=== PATIENT | female | born 1950 | race Caucasian/White ===

== ENCOUNTER 2016-10-04 11:09 | Day surgery (SDC) | payer MEDICARE, OTHER ==
[2016-10-04] VITALS (11 sets, daily range): BP systolic 101–159; BP diastolic 50–69
[~2016-10-04] VITALS: Ht 149.9 cm; Wt 64.9 kg
[~2016-10-04 11:09] MED LIST: ACDPT PO; ALPR.5T; ALPR.5T PO; APIX5TAB2 PO; ASP81CT; ASP81TEC PO; BNZ10T; CHOL200025 PO; CHOL5000 PO; CHOL50003 PO; CORAL CALCIUM; CRAN1CAP5 PO; DABI150C5 PO; DOCU-161 PO; DOCU100T7 PO; ENAL20TA PO; ESCI20TA2 PO; ESCT10T PO; FLEC50TA2 PO; FURO40TA4 PO; HCT25T PO; HYDR-3583 PO; LEVO500T2 PO; LISI5TAB PO; LOVA10TA PO; LOVA20TA2 PO; LOVASTATIN; METO-272 PO; METO25TA PO; METR500T PO; MTP25TSR PO; MULT1TAB63; OMG1KC; PNT40TEC PO; SPIR25TA PO; TYLENOL PM
[2016-10-04] MEDS ORDERED: LIDOCAINE 2% VISCOUS 15 ML UDC ONE (11:15)
[2016-10-04] MEDS ORDERED: NS IV 1000 ML 1,000 ML ONE (11:15)
[2016-10-04] MEDS ORDERED: NS IV 1000 ML 1,000 ML IV SCH (11:21)
[2016-10-04 11:58] LABS: MEAN PLATELET VOLUME 9.4 FL (7.4-10.4); RED BLOOD COUNT 4.04 10^6/uL (4.35-5.85); RED CELL DISTRIBUTION WIDTH 13.9 % (10.0-14.5); WHITE BLOOD COUNT 7.7 10^3/uL (4.3-11.0)
[2016-10-04 12:07] LABS: INR 2.4 (0.8-1.4); PROTHROMBIN TIME PATIENT 26.3 SEC (12.2-14.7)
--- NOTE | 2016-10-04 12:10 | Diagnostic Imaging Report ---
INDICATION: Coronary artery disease EXAMINATION: Portable chest at 1156h. Heart size and pulmonary vascularity are within normal limits. Lungs are clear. There are no effusions or pneumothoraces. IMPRESSION: Negative chest. Dictated by: Dictated on workstation # [id number]
[2016-10-04 12:16] LABS: ALANINE AMINOTRANSFERASE 11 U/L (0-55); ALBUMIN 4.2 G/DL (3.2-4.5); ANION GAP 6 MMOL/L (5-14); ASPARTATE AMINO TRANSFERASE 13 U/L (5-34); BILIRUBIN,TOTAL 0.6 MG/DL (0.1-1.0); BLOOD UREA NITROGEN 13 MG/DL (7-18); BUN/CREATININE RATIO 17; CALCIUM 8.7 MG/DL (8.5-10.1); CARBON DIOXIDE 29 MMOL/L (21-32); CHLORIDE 105 MMOL/L (98-107); CREATININE SERUM 0.75 MG/DL (0.60-1.30); GFR ESTIMATED > 60; GLUCOSE 98 MG/DL (70-105); SODIUM 140 MMOL/L (135-145); TOTAL PROTEIN 6.9 G/DL (6.4-8.2)
[2016-10-04] MEDS ORDERED: MIDAZOLAM 5 MG/5 ML (VERSED) VIAL ONE (12:42)
[2016-10-04] MEDS ORDERED: proPOfol 200 MG/20 ML (DIPRIVAN) VIAL IV ONE (12:42)
--- NOTE | 2016-10-04 12:47 | Cardiac Procedure Note-CS/ASA ---
Pre-Procedure Note Pre-Op Procedure Note H&P Reviewed The H&P was reviewed, patient examined and no changes noted. Date H&P Reviewed: Oct 04, 2016 Time H&P Reviewed: 12:46 Conscious Sedation Pre-Proced Time Reviewed: 12:46 ASA Class: 3 Airway Mallampati Classification: ([place] appropriate class) I. II. III, IV Lungs Heart ASA score ASA 1: a normal healthy patient ASA 2: a patient with a mild systemic disease (mid diabetes, controlled hypertension, obesity x ASA 3: a patient with a severe systemic disease that limits activity (angina , COPD, prior Myocardial infarction) ASA 4: a patient with an incapacitating disease that is a constant threat to life (CHF, renal failure) ASA 5: a moribund patient not expected to survive 24 hrs. (ruptured aneurysm) ASA 6: a declared brain patient whose organs are being harvested. For emergent operations, add the letter E after the classification Grade 3 Sedation Plan: Analgesia, Amnesia, Plan communicated to team members, Discussed options with patient/fam, Discussed risks with patient/fam Note The patient is an appropriate candidate to undergo the planned procedure, sedation, and anesthesia. The patient immediately re-assessed prior to indication. ELISE RIDER MD Oct 04, 2016 12:47
[2016-10-04] MEDS ORDERED: DOFE250C PO (12:49)
[2016-10-04] MEDS ORDERED: FURO20TA4 PO (12:49)
[2016-10-04] MEDS ORDERED: ATOR40TA70 PO (12:49)
[2016-10-04] MEDS ORDERED: CRAN1TAB5 PO (12:49)
[2016-10-04] MEDS ORDERED: WARF-48 PO ×2 (12:49)
[2016-10-04] MEDS ORDERED: MEXI200C PO (12:49)
[2016-10-04] MEDS ORDERED: ALPRAZolam 0.5 MG (XANAX) TAB PO PRN (13:15)
[2016-10-04] MEDS ORDERED: FUROSEMIDE 20 MG (LASIX) TAB PO SCH (15:00)
[2016-10-04] MEDS ORDERED: warFARin 5 MG (COUMADIN) TAB PO SCH (18:00)
[2016-10-04] MEDS ORDERED: ACETAMINOPHEN 325 MG TABLET/CAPLET (TYLENOL) PO SCH (21:00)
[2016-10-04] MEDS ORDERED: DIPHENHYDRAMINE PO SCH (21:00)
[2016-10-04] MEDS ORDERED: NON-FORMULARY MEDICATION 1 EA EA (Mexiletine HCl 200 MG) PO SCH (21:00)
[2016-10-04] MEDS ORDERED: DOFETILIDE 250 MCG CAP (TIKOSYN) NON-FORMLUARY PO SCH (21:00)
[2016-10-04] MEDS ORDERED: ATORVASTATIN 40 MG (LIPITOR) TABLET PO SCH (21:00)
[2016-10-04] MEDS ORDERED: ACETAMINOPHEN PO SCH (21:00)
[2016-10-04] MEDS ORDERED: diphenhydrAMINE 25 MG TAB (BENADRYL) PO SCH (21:00)
[2016-10-05] MEDS ORDERED: PANTOPRAZOLE 40 MG (PROTONIX) TAB PO SCH (07:00)
--- NOTE | 2016-10-05 07:35 | DISCHARGE SUMMARY ---
REFERRING PHYSICIAN: Dr. Lizzy Gallegos BRIEF HISTORY: Mrs. Bloom is a 66-year-old lady with paroxysmal atrial fibrillation, had history of ventricular tachycardia, has been on oral anticoagulation seen by Dr. Gallegos and recommended VICKIE with electrical cardioversion. PROCEDURE NOTE: After explaining the procedure to the patient, all pros and cons were explained. All questions were answered. The patient signed consent, then she was placed in the left lateral decubitus position. Oropharynx was anesthetized using Cetacaine spray. Conscious sedation achieved with assist of anesthesia. Omniplane probe was introduced through the mouth to the esophagus and then into the stomach, multiple views were obtained. At the end of the procedure Omniplane probe was removed. No complication noted. FINDINGS: 1. The left ventricle is normal in size. Systolic function is normal. Estimated ejection fraction 60%. 2. The left atrium is normal in size, left atrial appendage is prominent, low velocity by Doppler. No smoke. No clot or thrombus were seen. 3. The right atrium and right ventricle are normal in size. 4. Mitral valve is normal in morphology with mild mitral regurgitation. No mitral valve prolapse or stenosis. 5. Aortic valve is trileaflet with normal opening and closing pattern. No significant aortic stenosis or regurgitation was seen. 6. Tricuspid valve is normal in morphology with mild tricuspid regurgitation noted by color Doppler flow. 7. Pulmonic valve is functioning normally. 8. No pericardial effusion. 9. A portion of the ascending aorta, aortic arch and descending aorta were evaluated and they appeared normal. IN CONCLUSION: 1. No clot or thrombus were seen within the left atrium or left atrial appendage. 2. Normal left ventricular size with preserved systolic function. Estimated ejection fraction 60%. 3. Mild mitral and tricuspid regurgitation. ELECTRICAL CARDIOVERSION: The patient was sedated with assistance of anesthesia, received 120 joules synchronized DC cardioversion. Successful in terminating atrial fibrillation. The patient maintained sinus rhythm. No complication noted. IN CONCLUSION: Successful electrical cardioversion with no complication noted. FINAL DIAGNOSES: 1. Paroxysmal atrial fibrillation. 2. Ventricular tachycardia. 3. Hypertension. 4. Gastroesophageal reflux disease. Job ID: [id number] Dictated Date: 10/04/2016 13:22:13 Deputy Sheriff Generalist Date: 10/05/2016 07:34:01/elizabeth
[2016-10-05] MEDS ORDERED: SPIRONOLACTONE 25 MG (ALDACTONE) TAB PO SCH (09:00)
[2016-10-05] MEDS ORDERED: VITAMIN D3 5,000 UNITS (CHOLECALCIFEROL ) CAPSULE PO SCH (09:00)
[2016-10-05] MEDS ORDERED: NON-FORMULARY MEDICATION 1 EA EA (Cranberry Conc/C/Bacill Coag (Cranberry Tablet) 1 TAB) PO SCH (09:00)
[2016-10-05] MEDS ORDERED: NON-FORMULARY MEDICATION 1 EA EA (Escitalopram Oxalate (Lexapro) 20 MG) PO SCH (09:00)
[2016-10-05] MEDS ORDERED: FUROSEMIDE 20 MG (LASIX) TAB PO SCH (15:00)
[2016-10-05] MEDS ORDERED: warFARin 5 MG (COUMADIN) TAB PO SCH (18:00)
--- OUTSIDE RECORDS SUMMARY | 2016-10-29 04:32 | XMS REPORT | Continuity of Care Document ---
Author Author [facility] Organization [facility] Address Unknown Phone Unavailable Care Team Providers Care Volcanology Professor Name Role Phone Aubrey Ball PCP [phone] Source Comments Some departments are not documenting in the electronic medical record. If you do not see the information that you expected, contact Release of Information in the Health Information Management department at [phone] for further assistance in locating additional records.[facility] Active Allergies and Adverse Reactions Allergen Noted Date Severity Reactions Comments Losartan 10/03/2010 ANGIOEDEMA Norvasc 12/30/2010 EDEMA Sulfa (Sulfonamide 06/01/2010 HIVES, RASH Antibiotics) Current Medications Prescription Sig. Disp. Refills Start End Date Status Date escitalopram (LEXAPRO) 20 Take 10 mg by mouth at Active mg PO tablet bedtime daily. alprazolam (XANAX) 0.5 mg Take 0.5 mg by mouth Active PO tablet three times daily as needed. Cholecalciferol (Vitamin Take 1 Cap by mouth Active D3) 5,000 unit cap daily. pantoprazole DR Take 40 mg by mouth Active (PROTONIX) 40 mg tablet daily. docusate (COLACE) 100 mg Take 100 mg by mouth at Active capsule bedtime daily. Diphenhydramine-Acetamino Take 1 Tab by mouth at Active phen (TYLENOL PM EXTRA bedtime as needed. STRENGTH) 25-500 mg tab tablet warfarin (COUMADIN) 5 mg TAKE ONE-HALF TO ONE 90 Tab 2 01/19/20 Active tablet TABLET BY MOUTH DAILY 16 BASED ON INR RESULTS furosemide (LASIX) 20 mg TAKE ONE TABLET BY MOUTH 135 Tab 3 06/16/20 Active tablet ON EVEN DAYS AND TWO ON 16 ODD DAYS spironolactone TAKE ONE TABLET BY MOUTH 90 Tab 3 06/16/20 Active (ALDACTONE) 25 mg tablet ONCE DAILY 16 mexiletine (MEXITIL) 200 1 Cap twice daily. 180 Cap 3 07/17/19 Active mg capsule 17 atorvastatin (LIPITOR) 40 Take 40 mg by mouth Active mg tablet daily. dofetilide (TIKOSYN) 250 Take 1 Cap by mouth twice 180 Cap 3 07/17/19 10/25/19 Discontin mcg capsule daily. 17 17 ued Active Problems Problem Noted Date (HFpEF) heart failure with preserved ejection fraction (HCC) 12/22/2015 History of medical problems 05/31/2015 Overview: Her PMHx briefly includes: Persistent AFIB-Onset 03/2014 S/P AFIB RFA 07/07/14, Prior AFL S/P AFL RFA 2010 with Conduction Block still present at AFIB RFA 06/2014, Symptomatic First Degree A-V Wenckebach Block at slow rates when on Flecainide, Longstanding Ventricular Ectopy, Normal Coronary Arteries by Dr. Hewitt 08/2013, Normal Systolic LV Function, Left Ventricular Diastolic Dysfunction by echo, HTN, OSAS, Hyperlipidemia, and First Degree AV Block. She had a Carotid Duplex done by Dr. Hewitt 03/2014 and showed no obstructive disease. She has a [id number] score of 2--Female, HTN. Please refer to my office visit note from 02/01/15 for much greater detail of her Past Medical History. 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 Successful cavotricuspid ablation creating bi-directional conduction block. Successful subeustatian isthmus. Ablation terminating the AFL. At the conclusion of the procedure, NORMAL SINUS RHYTHM was present. Dual AVN physiology was present but likely NOT clinically significant. She was sent home off Diltiazem and had already been off Toprol and AA Tx. She had done well until she had TAYLOR earlier this year and Dr. Hewitt had concerns that her VPDs were contributing to her Sxs. He referred her for evaluation and she saw my partner Dr. Jules. At her 09/03/[address] Jules, she stated she had developed increasing dyspnea in the last 2-[address] Hewitt, in [place], did a CARDIAC CATH 08/2013 and her Jeanna were normal. Her LVEDP was 19 mmHg. Changes in her beta-denis and Lisinopril has been made prior to that visit by Dr. Hewitt which she did not tolerate well. Ultimately she stopped her Lisinopril and her Metoprolol was at 25 mg BID. 03/[address] Hewitt--She had recurrent AFIB. He did a TSH-reportedly normal. She was initiated on Eliquis and referred for EP Consultation. At 04/21/14 EP Consultation, we initiated Flecainide 50 mg BID and discussed AFIB RFA. Her ventricular response of her AFIB was slow on Verapamil 180 mg. Therefore, on 04/25/14, two days prior to initiating Flecainide, she was to discontinue her Verapamil to avoid worsening SVR and/or post-cardioversion Sinus Bradycardia. She ultimately decided to pursue AFIB RFA. 07/07/14 Successful AFIB RFA. Prior CTI Ablation for AFL still with conduction block present. She was discharged home on Flecainide. No clear recurrent AFIB since after the first month post ablation by ELR and Holter monitoring. However she has sinus arrhythmia making interpretation of rhythm strips difficult and she is very small P and in some leads not discernible P-waves when she is clearly in sinus rhythm. Atrial fibrillation (HCC) 07/07/2014 Overview: 05/13/14: VICKIE: [facility]: EF 50% Echogenic density was noted in the left atrial appendage measuring 1.1 x 1.5 cm probably representing a thrombus. Mild mitral and tricuspid regurgitation. Flecainide stopped. 07/06/2014 - VICKIE: No left or right atrial thrombus. 07/07/2014 - [facility]: Persistent atrial fibrillation status post pulmonary vein antral isolation. Normal sinus node function. Normal atrial conduction at completion of procedure. Normal AV node function. No evidence of accessory pathway. Normal ventricular function. Normal His-Purkinje system function. 01/06/14: Echo: EF 60%. Moderate MR, Moderate TR, Normal LV size, PA pressure 40. 11/02/14: CCTA: 1. MILDLY ENLARGED LEFT ATRIUM WHICH IS SHOWN MILD INCREASE IN SIZE SINCE THE PREVIOUS STUDY. THERE IS NO LEFT ATRIAL APPENDAGE THROMBUS.2. NORMAL BILATERAL SUPERIOR AND INFERIOR PULMONARY VEINS WITH EARLY BRANCHING OF THE RIGHT SUPERIOR, LEFT SUPERIOR AND LEFT INFERIOR PULMONARY VEINS. THERE IS NO FOCAL PULMONARY VEIN OSTIAL STENOSIS. LIMITED CT CHEST: NO SIGNIFICANT ABNORMALITIES IN THE VISUALIZED MEDIASTINUM AND LUNGS. 12/24/15 - Cardioversion Ventricular tachycardia (HCC) 06/15/2014 Overview: 08/20/13: Cath: [facility]: EF 60% dominant circumflex system with no obstructive disease in the coronary system Dyspnea 08/21/2013 Last Assessment & Plan: Echo demonstrated moderate tricuspid and mitral valve regurgitation as well as diastolic dysfunction. More likely dyspnea is secondary to diastolic dysfunction than an arrhythmia. She was started on Lasix 20 mg daily and Spironolactone 25 mg daily. Her hydrochlorothiazide was discontinued. We will reassess Chem 7 in one week. PVC's (premature ventricular contractions) 06/05/2011 Last Assessment & Plan: Per Dr. Hewitt's office letter, recent treadmill and holter demonstrated frequent ventricular ectopy. Unlikely her dyspnea is related to her ectopy given that this is not new and her EF continues to be in normal range. Her potassium is low. This could be making ectopy more frequent. Her hydrochlorothiazide was discontinued and she was started on spironolactone. Sleep apnea 06/05/2011 Overview: CPAP L ast Assessment & Plan: If she continues to have complaints of dyspnea - may need to evaluate if she is receiving adequate CPAP therapy. First degree AV block 06/05/2011 Overview: Some blocked APCs and Wen[place]bach on AVN meds- tolerates diltiazem and metoprolol poorly Atrial flutter (HCC) 11/07/2010 Overview: SEI [id number] CHADS2=one (HTN) Fall 2010-no flutteror AF-OK to DC Pradaxa L ast Assessment & Plan: No recurrence since ablation. 48 hour holter on 08/16/13 was negative for any atrial arrhythmias. Continues to be on daily aspirin therapy. Hyperlipidemia 09/22/2010 Last Assessment & Plan: Continues to be managed by Dr. Hewitt's office. Atypical chest pain Overview: 07/2007: [facility] @ [facility]: no significant CAD. 20% mid circ. EF-wnl. RCA-spasm during cath. 05/18/2010: [facility] @ [facility]: No obstructive CAD, normal LV size/function. EF 60% HTN (hypertension) Last Assessment & Plan: Well controlled on current therapy. Palpitations Overview: 07/2007 - Complete echocardiogram: Ejection fraction 60%. Mild left ventricular hypertrophy. Trace MR. Mild TR. 30 day event monitor showed Atrial Tach at 140-150bpm for 2-4 sec.. Toprol 25mg XL qd. 08/18/13: MPI: [facility]: EF 59%. Fair exercise tolerance. Frequent VPDs, ventricular bigeminy and ventricular couplets noted at rest and during recovery phase. Non diagnostic ECG changes with exercise. Reversible ischemia involving the whole anterior wall and anterior apex. 01/06/14: Echo: [facility]: EF 60% bradycardia in 40's for procedure. Left atrial dilatation. Moderate mitral regurgitation. Moderate tricuspid regurgitation. Estimated PAP of 40 mmHg Most Recent Encounters Date Type Specialty Providers Description 10/24/2016 Office Visit Cardiology Jori Gallegos MD Device Check; Atrial fibrillation - 1 month F/U - 2 week post cardioversion ; PVC's 10/24/2016 [facility] Cardiology Jori Gallegos MD Arrived Encounter 10/24/2016 Documentation Cardiology Soumya Hernández - Holter monitor applied in clinic 10/18/2016 Telephone Cardiology Venkat Penaloza RN Remote Monitoring Transferred - from Dr. Hewitt's office. 10/17/2016 Telephone Cardiology Yuliana Polo, Medication Update - stop RICARDO pope per MPE today 09/25/2016 [facility] Cardiology Jori Gallegos MD Canceled (Error) Encounter 09/25/2016 Office Visit Cardiology Jori Gallegos MD Atrial fibrillation - 6 month follow up; PVC's 09/20/2016 Orders Only Cardiology Miguelina Casillas MA Cardiac device in situ (Primary Dx) 09/12/2016 Telephone Cardiology Brandy Park RN 08/17/2016 Documentation Jeramie Burns 08/17/2016 Telephone Cardiology Jennifer Spivey, hairpiece stylist Problem - Unable to obtain mexilitene, message to [facility] 08/08/2016 Telephone Cardiology Jennifer Spivey, hairpiece stylist Follow-up - tikosyn and mexilitene denied by insurance Social History Tobacco Use Types Packs/Day Years Used Date Never Smoker Smokeless Tobacco: Never Used Alcohol Use Drinks/Week oz/Week Comments No Last Filed Vital Signs Vital Sign Reading Time Taken Blood Pressure 118/66 10/24/2016 10:53 AM CDT Pulse 64 10/24/2016 10:53 AM CDT Temperature 36.5 C (97.7 F) 12/25/2015 11:03 AM CDT Respiratory Rate - - Height 1.499 m (4' 11") 10/24/2016 10:53 AM CDT Weight 64.864 kg (143 lb) 10/24/2016 10:53 AM CDT Body Mass Index 28.87 10/24/2016 10:53 AM CDT Oxygen Saturation 99% 12/25/2015 11:03 AM CDT Plan of Care Health Maintenance Due Date Last Done Comments Hepatitis C Screening 1952 Physical (Comprehensive) 1959 Exam Pertussis Vaccine 1963 Tetanus Vaccine 1969 Cervical Cancer Screening 1973 Breast Cancer Screening 1992 Colorectal Cancer 2002 Screening Shingles Vaccine 2012 Influenza Vaccine 03/09/2017 Results from Last 3 Months * DEVICE EVALUATION - ILR (10/24/2016 11:34 AM) Component Value Range ILR History of Afib Yes Generator Implnat Date 02/04/2016 Generator Model # [id number] Device Implanted By Dr. Hewitt in [facility] Generator Serial # [id number] EP Device Followed by [facility] Name ILR Symptom Duration Four 7.5min episodes ILR Tachy Rate 167 (360ms) ILR Tachy Duration 16 ILR Pause Duration off ILR Ranjeet Rate 30 (2000ms) ILR Ranjeet Duration 8 ILR AT Events Since Last 0 Interrogation ILR AT Lifetime Events as 0 of ILR Percent Time in AT/AF V sensitivity 0.025mv Duration Remote Monitor Serial# [id number] Generator Map Plotter [employer]onic Device Type ILR EP Device Followed By MAC ILR AF Rate AF only ILR AF Duration all episodes Device [place] [employer] Express Transmitter Compatible ILR Date of Last Daily 10/23/17 Connection ILR Lifetime Events as of 10/24/16 Datetion ILR Symptom Events Since 0 Last Interrogation ILR Symptom Lifetime 1 Events as of ILR Tachy Events Since 0 Last Interrogation ILR Tachy Lifetime Events 0 as of ILR Pause Events Since 0 Last Interrogation ILR Pause Lifetime Events 51 as of ILR Ranjeet Events Since 2,240 Last Interrogation ILR Ranjeet Lifetime Events 2,871 as of ILR AF Events Since Last 1,161 Interrogation ILR AF Lifetime Events as 1,275 of ILR Percent Time in AT/AF 1.8% Events Since Last Interrogation ILR Battery Status Good ILR Presenting ECG Strip Irregular VS at 61-75bpm Generator Location Left Known Diagnosed AFib Yes On Anticoagulation Yes Narrative [facility] In Office Reveal [id number] Interrogation Presenting Rhythm: Irregular VS at 61-75bpm New events: 2,240 Ranjeet episodes, Not true ranjeet, Available EGMs show undersensing. (V sensitivity at most sensitive 0.025mv) 1,161 labeled AF episodes, burden 1.8%, longest duration 38min on 10/21/16. Available EGMs show irregular VS, with some P waves visible, and possible undersensing, AT? Max V rates 53-316bpm. Pt reports DCCV [address] Hewitt in [place]. Pt reports taking Warfarin. No programming changes. In process of transferring Remote to MAC. Report to MPE in clinic. * ECG/QRS (10/24/2016) Only the most recent of 2 results within the time period is included. Component Value Range QRS DURATION 92
--- OUTSIDE RECORDS SUMMARY | 2016-10-29 04:33 | XMS REPORT | Continuity of Care Document ---
Author Author [facility] Organization [facility] Address Unknown Phone Unavailable Allergies Active Description Code Type Severity Reaction Onset Reported/Identified Relationship to Patient Clinical Status Yes Sulfa (Sulfonamide Antibiotics) [id number] Drug Allergy Unknown N/A 07/29/2007 Medications Problems Date Dx Coded Attending Type Code Diagnosis Diagnosed By 12/26/2010 Ot 565.0 ANAL FISSURE 12/26/2010 Ot V58.69 OTH MED,LT,CURRENT USE 03/01/2012 Ot 785.1 PALPITATIONS 03/20/2013 DEYA BLANCO MD Ot 276.8 HYPOPOTASSEMIA 03/20/2013 DEYA BLANCO MD Ot 401.9 HYPERTENSION NOS 03/20/2013 DEYA BLANCO MD Ot 562.11 DIVERTICULITIS COLON (W/O MENT OF HEMORR 03/20/2013 DEYA BLANCO MD Ot 599.0 URIN TRACT INFECTION NOS 05/27/2013 SARAI TOBIAS DO Ot 562.10 DIVERTICULOSIS COLON (W/O MENT OF HEMORR 05/27/2013 SARAI TOBIAS DO Ot V12.72 PERSONAL HISTORY OF COLONIC POLYPS 11/13/2013 KEKE VINES Ot 272.4 HYPERLIPIDEMIA NEC/NOS 11/13/2013 KEKE VINES Ot 278.00 OBESITY, NOS 11/13/2013 KEKE VINES Ot 296.22 DEPRESSIVE DISORDER-MOD 11/13/2013 KEKE VINES Ot 401.9 HYPERTENSION NOS 11/13/2013 KEKE VINES Ot 427.1 PAROX VENTRIC TACHYCARD 11/13/2013 KEKE VINES Ot 785.1 PALPITATIONS 05/13/2014 ELISE RIDER MD Ot 272.4 HYPERLIPIDEMIA NEC/NOS 05/13/2014 ELISE RIDER MD Ot 397.0 TRICUSPID VALVE DISEASE 05/13/2014 ELISE RIDER MD Ot 401.9 HYPERTENSION NOS 05/13/2014 ELISE RIDER MD Ot 414.01 CORONARY ATHEROSCLEROSIS OF [place] CORON 05/13/2014 ELISE RIDER MD Ot 424.0 MITRAL VALVE DISORDER 05/13/2014 ELISE RIDER MD Ot 427.1 PAROX VENTRIC TACHYCARD 05/13/2014 ELISE RIDER MD Ot 427.31 ATRIAL FIBRILLATION 05/13/2014 ELISE RIDER MD Ot 496 CHR AIRWAY OBSTRUCT NEC 05/13/2014 ELISE RIDER MD Ot V58.61 ANTICOAGULANTS,LT,CURRENT USE 05/13/2014 ELISE RIDER MD Ot V58.69 OTH MED,LT,CURRENT USE 12/23/2014 FRANCIS KUMARI, DEYA Landeros Ot V76.12 02/08/2015 ELIUD KUMARI, HORTENSIA Antoine Ot 427.31 02/09/2015 HORTENSIA KLINE MD P Ot 427.31 02/23/2015 YULI SAMPSON DC S Ot 724.1 02/23/2015 HOTRENSIA KLINE MD P Ot 427.31 04/07/2015 HORTENSIA KLINE MD P Ot 427.31 ATRIAL FIBRILLATION 11/17/2015 FRANCIS KUMARI, DEYA R Ot Z12.31 ENCNTR SCREEN MAMMOGRAM FOR MALIGNANT NE 12/02/2015 DEYA BLANCO MD Ot Z12.31 ENCNTR SCREEN MAMMOGRAM FOR MALIGNANT NE 02/08/2016 KEKE VINES Ot E78.5 HYPERLIPIDEMIA, UNSPECIFIED 02/08/2016 KEKE VINES Ot I10 ESSENTIAL (PRIMARY) HYPERTENSION 02/08/2016 KEKE VINES Ot I47.2 VENTRICULAR TACHYCARDIA 02/08/2016 KEKE VINES Ot I48.0 PAROXYSMAL ATRIAL FIBRILLATION 02/17/2016 ELISE RIDER MD Ot E78.5 HYPERLIPIDEMIA, UNSPECIFIED 02/17/2016 ELISE RIDER MD Ot I25.10 ATHSCL HEART DISEASE OF [place] CORONARY 02/17/2016 ELISE RIDER MD Ot I47.2 VENTRICULAR TACHYCARDIA 02/17/2016 ELISE RIDER MD Ot I48.0 PAROXYSMAL ATRIAL FIBRILLATION 02/17/2016 ELISE RIDER MD Ot I48.92 UNSPECIFIED ATRIAL FLUTTER 02/17/2016 ELISE RIDER MD Ot J44.9 CHRONIC OBSTRUCTIVE PULMONARY DISEASE, U 02/17/2016 ELISE RIDER MD Ot Z79.899 OTHER RESIDENTIAL (CURRENT) DRUG THERAPY 02/21/2016 ELISE RIDER MD Ot E78.5 HYPERLIPIDEMIA, UNSPECIFIED 02/21/2016 ELISE RIDER MD Ot I25.10 ATHSCL HEART DISEASE OF [place] CORONARY 02/21/2016 ELISE RIDER MD Ot I47.2 VENTRICULAR TACHYCARDIA 02/21/2016 ELISE RIDER MD Ot I48.0 PAROXYSMAL ATRIAL FIBRILLATION 02/21/2016 ELISE RIDER MD Ot I48.92 UNSPECIFIED ATRIAL FLUTTER 02/21/2016 ELISE RIDER MD Ot J44.9 CHRONIC OBSTRUCTIVE PULMONARY DISEASE, U 02/21/2016 ELISE RIDER MD Ot Z79.899 OTHER EXTRACTOR LOADER AND UNLOADER (CURRENT) DRUG THERAPY 03/06/2016 KEKE VINES Ot E78.5 HYPERLIPIDEMIA, UNSPECIFIED 03/06/2016 KEKE VINES Ot I10 ESSENTIAL (PRIMARY) HYPERTENSION 03/06/2016 KEKE VINES Ot I47.2 VENTRICULAR TACHYCARDIA 03/06/2016 KEKE VINES Ot I48.0 PAROXYSMAL ATRIAL FIBRILLATION 03/09/2016 ELISE RIDER MD Ot E78.5 HYPERLIPIDEMIA, UNSPECIFIED 03/09/2016 ELISE RIDER MD Ot I25.10 ATHSCL HEART DISEASE OF [place] CORONARY 03/09/2016 ELISE RIDER MD Ot I47.2 VENTRICULAR TACHYCARDIA 03/09/2016 ELISE RIDER MD Ot I48.0 PAROXYSMAL ATRIAL FIBRILLATION 03/09/2016 ELISE RIDER MD Ot I48.92 UNSPECIFIED ATRIAL FLUTTER 03/09/2016 ELISE RIDER MD Ot J44.9 CHRONIC OBSTRUCTIVE PULMONARY DISEASE, U 03/09/2016 ELISE RIDER MD Ot Z79.899 OTHER EXTRACTOR LOADER AND UNLOADER (CURRENT) DRUG THERAPY 05/13/2016 Ot 565.0 ANAL FISSURE 05/13/2016 Ot V72.63 PRE-PROCEDURAL LABORATORY EXAMINATION 05/13/2016 Ot V74.8 SCREEN-BACTERIAL DIS NEC 05/13/2016 Ot V76.12 OTH SCREEN MAMMO-MALIGN NEOPLASM OF [place] 05/13/2016 Ot V76.12 OTH SCREEN MAMMO-MALIGN NEOPLASM OF [place] 05/13/2016 Ot V76.12 OTH SCREEN MAMMO-MALIGN NEOPLASM OF [place] 05/13/2016 DEYA BLANCO MD Ot 355.9 MONONEURITIS NOS 05/13/2016 DEYA BLANCO MD Ot 719.45 JOINT PAIN-PELVIS 05/13/2016 SARAI TOBIAS DO Ot V72.84 EXAM PRE-OPERATIVE NOS 05/13/2016 KEKE VINES Ot 272.4 HYPERLIPIDEMIA NEC/NOS 05/13/2016 KEKE VINES Ot 278.00 OBESITY, NOS 05/13/2016 KEKE VINES Ot 401.9 HYPERTENSION NOS 05/13/2016 KEKE VINES Ot 427.1 PAROX VENTRIC TACHYCARD 05/13/2016 KEKE VINES Ot 785.1 PALPITATIONS 05/13/2016 ELISE RIDER MD Ot 272.4 HYPERLIPIDEMIA NEC/NOS 05/13/2016 ELISE RIDER MD Ot 401.9 HYPERTENSION NOS 05/13/2016 ELISE RIDER MD Ot 426.11 ATRIOVENT BLOCK-1ST DEGR 05/13/2016 ELISE RIDER MD Ot 427.1 PAROX VENTRIC TACHYCARD 05/13/2016 ELISE RIDER MD Ot 427.69 PREMATURE BEATS NEC 05/13/2016 ELISE RIDER MD Ot 530.81 ESOPHAGEAL REFLUX 05/13/2016 ELISE RIDER MD Ot V58.69 OTH MED,LT,CURRENT USE 05/13/2016 DEYA BLANCO MD Ot V76.12 OTH SCREEN MAMMO-MALIGN NEOPLASM OF [place] 05/13/2016 Ot 272.4 HYPERLIPIDEMIA NEC/NOS 05/13/2016 Ot 278.00 OBESITY, NOS 05/13/2016 Ot 296.22 DEPRESSIVE DISORDER-MOD 05/13/2016 Ot 401.9 HYPERTENSION NOS 05/13/2016 Ot 427.1 PAROX VENTRIC TACHYCARD 05/13/2016 Ot 785.1 PALPITATIONS 05/13/2016 BENNY JEFF KEKE Raghav Ot 397.0 TRICUSPID VALVE DISEASE 05/13/2016 BENNY JEFF KEKE K Ot 401.9 HYPERTENSION NOS 05/13/2016 BENNY JEFF KEKE Raghav Ot 424.0 MITRAL VALVE DISORDER 05/13/2016 BENNY JEFF KEKE Raghav Ot 427.1 PAROX VENTRIC TACHYCARD 05/13/2016 BENNY JEFF KEKE Raghav Ot 427.69 PREMATURE BEATS NEC 05/13/2016 BENNY JEFF KEKE Raghav Ot 786.09 RESPIRATORY ABNORM NEC 05/13/2016 FRANCIS KUMARI, DEYA Landeros Ot 789.00 ABDOMINAL PAIN, UNSPECIFIED SITE 05/13/2016 Ot 789.00 ABDOMINAL PAIN, UNSPECIFIED SITE 05/13/2016 FRANCIS KUMARI, DEYA Landeros Ot V76.12 OTH SCREEN MAMMO-MALIGN NEOPLASM OF [place] 05/13/2016 YULI SAMPSON DC S Ot 724.1 PAIN IN THORACIC SPINE 05/13/2016 FRANCIS KUMARI, DEYA R Ot Z12.31 ENCNTR SCREEN MAMMOGRAM FOR MALIGNANT NE 05/13/2016 BENNY JEFF KEKE K Ot E78.5 HYPERLIPIDEMIA, UNSPECIFIED 05/13/2016 BENNY JEFF KEKE Raghav Ot I10 ESSENTIAL (PRIMARY) HYPERTENSION 05/13/2016 BENNY JEFF KEKE Raghav Ot I47.2 VENTRICULAR TACHYCARDIA 05/13/2016 BENNY JEFF KEKE Raghav Ot I48.0 PAROXYSMAL ATRIAL FIBRILLATION 05/13/2016 ELISE RIDER MD Ot E78.5 HYPERLIPIDEMIA, UNSPECIFIED 05/13/2016 ELISE RIDER MD Ot I25.10 ATHSCL HEART DISEASE OF [place] CORONARY 05/13/2016 ELISE RIDER MD Ot I47.2 VENTRICULAR TACHYCARDIA 05/13/2016 ELISE RIDER MD Ot I48.0 PAROXYSMAL ATRIAL FIBRILLATION 05/13/2016 ELISE RIDER MD Ot I48.92 UNSPECIFIED ATRIAL FLUTTER 05/13/2016 ELISE RIDER MD Ot J44.9 CHRONIC OBSTRUCTIVE PULMONARY DISEASE, U 05/13/2016 ELISE RIDER MD Ot Z79.899 OTHER RESIDENTIAL (CURRENT) DRUG THERAPY 09/26/2016 Ot V76.12 OTH SCREEN MAMMO-MALIGN NEOPLASM OF [place] 09/26/2016 Ot V76.12 OTH SCREEN MAMMO-MALIGN NEOPLASM OF [place] 09/26/2016 FRANCIS KUMARI, DEYA R Ot 355.9 MONONEURITIS NOS 09/26/2016 FRANCIS KUMARI, DEYA R Ot 719.45 JOINT PAIN-PELVIS 09/26/2016 CHINO TOBIAS DOTT D Ot V72.84 EXAM PRE-OPERATIVE NOS 09/26/2016 KEKE VINES Ot 272.4 HYPERLIPIDEMIA NEC/NOS 09/26/2016 KEKE VINES Ot 278.00 OBESITY, NOS 09/26/2016 KEKE VINES Ot 401.9 HYPERTENSION NOS 09/26/2016 KEKE VINES Ot 427.1 PAROX VENTRIC TACHYCARD 09/26/2016 KEKE VINES Ot 785.1 PALPITATIONS 09/26/2016 ELISE RIDER MD Ot 272.4 HYPERLIPIDEMIA NEC/NOS 09/26/2016 ELISE RIDER MD Ot 401.9 HYPERTENSION NOS 09/26/2016 ELISE RIDER MD Ot 426.11 ATRIOVENT BLOCK-1ST DEGR 09/26/2016 ELISE RIDER MD Ot 427.1 PAROX VENTRIC TACHYCARD 09/26/2016 ELISE RIDER MD Ot 427.69 PREMATURE BEATS NEC 09/26/2016 ELISE RIDER MD Ot 530.81 ESOPHAGEAL REFLUX 09/26/2016 ELISE RIDER MD Ot V58.69 OT MED,LT,CURRENT USE 09/26/2016 FRANCIS KUMARI, DEYA R Ot V76.12 OTH SCREEN MAMMO-MALIGN NEOPLASM OF [place] 09/26/2016 Ot 272.4 HYPERLIPIDEMIA NEC/NOS 09/26/2016 Ot 278.00 OBESITY, NOS 09/26/2016 Ot 296.22 DEPRESSIVE DISORDER-MOD 09/26/2016 Ot 401.9 HYPERTENSION NOS 09/26/2016 Ot 427.1 PAROX VENTRIC TACHYCARD 09/26/2016 Ot 785.1 PALPITATIONS 09/26/2016 KEKE VINES Ot 397.0 TRICUSPID VALVE DISEASE 09/26/2016 KEKE VINES Ot 401.9 HYPERTENSION NOS 09/26/2016 KEKE VINES Ot 424.0 MITRAL VALVE DISORDER 09/26/2016 KEKE VINES Ot 427.1 PAROX VENTRIC TACHYCARD 09/26/2016 KEKE VINES Ot 427.69 PREMATURE BEATS NEC 09/26/2016 KEKE VINES Ot 786.09 RESPIRATORY ABNORM NEC 09/26/2016 FRANCIS KUMARI, DEYA Landeros Ot 789.00 ABDOMINAL PAIN, UNSPECIFIED SITE 09/26/2016 Ot 789.00 ABDOMINAL PAIN, UNSPECIFIED SITE 09/26/2016 DEYA BLANCO MD Ot V76.12 OTH SCREEN MAMMO-MALIGN NEOPLASM OF [place] 09/26/2016 CAMILLA NAJERAYULI S Ot 724.1 PAIN IN THORACIC SPINE 09/26/2016 DEYA BLANCO MD Ot Z12.31 ENCNTR SCREEN MAMMOGRAM FOR MALIGNANT NE 09/26/2016 KEKE VINES Ot E78.5 HYPERLIPIDEMIA, UNSPECIFIED 09/26/2016 KEKE VINES Ot I10 ESSENTIAL (PRIMARY) HYPERTENSION 09/26/2016 KEKE VINES Ot I47.2 VENTRICULAR TACHYCARDIA 09/26/2016 KEKE VINES Ot I48.0 PAROXYSMAL ATRIAL FIBRILLATION 09/26/2016 ELISE RIDER MD Ot E78.5 HYPERLIPIDEMIA, UNSPECIFIED 09/26/2016 ELISE RIDER MD Ot I25.10 ATHSCL HEART DISEASE OF [place] CORONARY 09/26/2016 ELISE RIDER MD Ot I47.2 VENTRICULAR TACHYCARDIA 09/26/2016 ELISE RIDER MD Ot I48.0 PAROXYSMAL ATRIAL FIBRILLATION 09/26/2016 ELISE RIDER MD Ot I48.92 UNSPECIFIED ATRIAL FLUTTER 09/26/2016 ELISE RIDER MD Ot J44.9 CHRONIC OBSTRUCTIVE PULMONARY DISEASE, U 09/26/2016 EILSE RIDER MD Ot Z79.899 OTHER RESIDENTIAL (CURRENT) DRUG THERAPY 10/04/2016 Ot V76.12 OTH SCREEN MAMMO-MALIGN NEOPLASM OF [place] 10/04/2016 Ot V76.12 OTH SCREEN MAMMO-MALIGN NEOPLASM OF [place] 10/04/2016 FRANCIS KUMARI, DEYA Landeros Ot 355.9 MONONEURITIS NOS 10/04/2016 DEYA BLANCO MD Ot 719.45 JOINT PAIN-PELVIS 10/04/2016 SARAI TOBIAS DO Ot V72.84 EXAM PRE-OPERATIVE NOS 10/04/2016 KEKE VINES Ot 272.4 HYPERLIPIDEMIA NEC/NOS 10/04/2016 KEKE VINES Ot 278.00 OBESITY, NOS 10/04/2016 KEKE VINES Ot 401.9 HYPERTENSION NOS 10/04/2016 KEKE VINES Ot 427.1 PAROX VENTRIC TACHYCARD 10/04/2016 KEKE VINES Ot 785.1 PALPITATIONS 10/04/2016 ELISE RIDER MD Ot 272.4 HYPERLIPIDEMIA NEC/NOS 10/04/2016 ELISE RIDER MD Ot 401.9 HYPERTENSION NOS 10/04/2016 ELISE RIDER MD Ot 426.11 ATRIOVENT BLOCK-1ST DEGR 10/04/2016 ELISE RIDER MD Ot 427.1 PAROX VENTRIC TACHYCARD 10/04/2016 ELISE RIDER MD Ot 427.69 PREMATURE BEATS NEC 10/04/2016 ELISE RIDER MD Ot 530.81 ESOPHAGEAL REFLUX 10/04/2016 ELISE RIDER MD Ot V58.69 OT MED,LT,CURRENT USE 10/04/2016 FRANCIS KUMARI, DEYA Landeros Ot V76.12 OTH SCREEN MAMMO-MALIGN NEOPLASM OF [place] 10/04/2016 Ot 272.4 HYPERLIPIDEMIA NEC/NOS 10/04/2016 Ot 278.00 OBESITY, NOS 10/04/2016 Ot 296.22 DEPRESSIVE DISORDER-MOD 10/04/2016 Ot 401.9 HYPERTENSION NOS 10/04/2016 Ot 427.1 PAROX VENTRIC TACHYCARD 10/04/2016 Ot 785.1 PALPITATIONS 10/04/2016 KEKE VINES Ot 397.0 TRICUSPID VALVE DISEASE 10/04/2016 KEKE VINES Ot 401.9 HYPERTENSION NOS 10/04/2016 KEKE VINES Ot 424.0 MITRAL VALVE DISORDER 10/04/2016 KEKE VINES Ot 427.1 PAROX VENTRIC TACHYCARD 10/04/2016 KEKE VINES Ot 427.69 PREMATURE BEATS NEC 10/04/2016 KEKE VINES Ot 786.09 RESPIRATORY ABNORM NEC 10/04/2016 FRANCIS KUMARI, DEYA R Ot 789.00 ABDOMINAL PAIN, UNSPECIFIED SITE 10/04/2016 Ot 789.00 ABDOMINAL PAIN, UNSPECIFIED SITE 10/04/2016 FRANCIS KUMARI, DEYA R Ot V76.12 OTH SCREEN MAMMO-MALIGN NEOPLASM OF [place] 10/04/2016 CAMILLA NAJERA, YULI S Ot 724.1 PAIN IN THORACIC SPINE 10/04/2016 DEYA BLANCO MD R Ot Z12.31 ENCNTR SCREEN MAMMOGRAM FOR MALIGNANT NE 10/04/2016 KEKE VINES Ot E78.5 HYPERLIPIDEMIA, UNSPECIFIED 10/04/2016 KEKE VINES Ot I10 ESSENTIAL (PRIMARY) HYPERTENSION 10/04/2016 KEKE VINES Ot I47.2 VENTRICULAR TACHYCARDIA 10/04/2016 KEKE VINES Ot I48.0 PAROXYSMAL ATRIAL FIBRILLATION 10/04/2016 ELISE RIDER MD Ot E78.5 HYPERLIPIDEMIA, UNSPECIFIED 10/04/2016 ELISE RIDER MD Ot I25.10 ATHSCL HEART DISEASE OF [place] CORONARY 10/04/2016 ELISE RIDER MD Ot I47.2 VENTRICULAR TACHYCARDIA 10/04/2016 ELISE RIDER MD Ot I48.0 PAROXYSMAL ATRIAL FIBRILLATION 10/04/2016 ELISE RIDER MD Ot I48.92 UNSPECIFIED ATRIAL FLUTTER 10/04/2016 ELISE RIDER MD Ot J44.9 CHRONIC OBSTRUCTIVE PULMONARY DISEASE, U 10/04/2016 ELISE RIDER MD Ot Z79.899 OTHER EXTRACTOR LOADER AND UNLOADER (CURRENT) DRUG THERAPY 10/11/2016 ELISE RIDER MD Ot E78.5 HYPERLIPIDEMIA, UNSPECIFIED 10/11/2016 ELISE RIDER MD Ot I10 ESSENTIAL (PRIMARY) HYPERTENSION 10/11/2016 ELISE RIDER MD, Ot I47.2 VENTRICULAR TACHYCARDIA 10/11/2016 ELISE RIDER MD, Ot I48.0 PAROXYSMAL ATRIAL FIBRILLATION 10/11/2016 ELISE RIDER MD, Ot J44.9 CHRONIC OBSTRUCTIVE PULMONARY DISEASE, U 10/11/2016 ELISE RIDER MD, Ot K21.9 GASTRO-ESOPHAGEAL REFLUX DISEASE WITHOUT 10/11/2016 ELISE RIDER MD, Ot Z79.01 EXTRACTOR LOADER AND UNLOADER (CURRENT) USE OF ANTICOAGULANT 10/11/2016 ELISE RIDER MD, Ot Z79.899 OTHER RESIDENTIAL (CURRENT) DRUG THERAPY Procedures Results Test Result Range Automated blood complete blood count (hemogram) panel - 10/04/16 11:50 Blood leukocytes automated count (number/volume) 7.7 10*3/ uL 4.3-11.0 Blood erythrocytes automated count (number/volume) 4.04 10*6 /uL 4.35-5.85 Venous blood hemoglobin measurement (mass/volume) 11.6 g/dL 11.5-16.0 Blood hematocrit (volume fraction) 35 % 35-52 Automated erythrocyte mean corpuscular volume 86 [foz_us] 80-99 Automated erythrocyte mean corpuscular hemoglobin (mass per erythrocyte) 29 pg 25-34 Automated erythrocyte mean corpuscular hemoglobin concentration measurement ( mass/volume) 33 g/dL 32-36 Automated erythrocyte distribution width ratio 13.9 % 10.0-14.5 Automated blood platelet count (count/volume) 301 10*3/uL 130-400 Automated blood platelet mean volume measurement 9.4 [foz_us ] 7.4-10.4 Comprehensive metabolic panel - 10/04/16 11:50 Serum or plasma sodium measurement (moles/volume) 140 mmol/ L 135-145 Serum or plasma potassium measurement (moles/volume) 4.0 mmol/L 3.6-5.0 Serum or plasma chloride measurement (moles/volume) 105 mmol /L 98-107 Carbon dioxide 29 mmol/L 21-32 Serum or plasma anion gap determination (moles/volume) 6 mmol/L 5-14 Serum or plasma urea nitrogen measurement (mass/volume) 13 mg/dL 7-18 Serum or plasma creatinine measurement (mass/volume) 0.75 mg /dL 0.60-1.30 Serum or plasma urea nitrogen/creatinine mass ratio 17 NRG Serum or plasma creatinine measurement with calculation of estimated glomerular filtration rate > NRG Serum or plasma glucose measurement (mass/volume) 98 mg/dL 70-105 Serum or plasma calcium measurement (mass/volume) 8.7 mg/dL 8.5-10.1 Serum or plasma total bilirubin measurement (mass/volume) 0.6 mg/dL 0.1-1.0 Serum or plasma alkaline phosphatase measurement (enzymatic activity/volume) 78 U/L 40-136 Serum or plasma aspartate aminotransferase measurement (enzymatic activity/ volume) 13 U/L 5-34 Serum or plasma alanine aminotransferase measurement (enzymatic activity/volume ) 11 U/L 0-55 Serum or plasma protein measurement (mass/volume) 6.9 g/dL 6.4-8.2 Serum or plasma albumin measurement (mass/volume) 4.2 g/dL 3.2-4.5 PT panel in platelet poor plasma by coagulation assay - 10/04/16 11:50 Prothrombin time (PT) in platelet poor plasma by coagulation assay 26.3 s 12.2-14.7 INR in platelet poor plasma or blood by coagulation assay 2.4 0.8-1.4 Activated partial thromboplastin time (aPTT) in platelet poor plasma bycoagulation assay - 10/04/16 11:50 Activated partial thromboplastin time (aPTT) in platelet poor plasma bycoagulation assay 53 s 24-35 Methicillin resistant Staphylococcus aureus (MRSA) screening culture - 11:50 Methicillin resistant Staphylococcus aureus (MRSA) screening culture NEG NRG Encounters ACCT No. Visit Date/Time Discharge Status Pt. Type Provider Facility Loc./Unit Complaint [id number] 10/04/2016 11:09:00 2016 17:45:00 DIS Outpatient ADRY KUMARI, ELISE Sosa [facility] CATH AFIB,.HTN,CAD [id number] 02/05/2015 10:53:00 2014 00:01:00 DIS Outpatient ELIUD KUMARI, HORTENSIA Antoine [facility] CARD PAF [id number] 02/04/2015 13:55:00 2014 23:59:59 CLS Outpatient YULI SAMPSON DC [facility] RAD THORACIC PAIN [id number] 11/13/2014 10:22:00 2014 23:59:59 CLS Outpatient DEYA BLANCO MD [facility] RAD SCREENING [id number] 05/13/2014 08:37:00 2013 15:00:00 DIS Outpatient ELIES RIDER MD [facility] CATH AFIB,DYSPNEA,HTN,HLP [id number] 03/18/2014 07:57:00 2013 23:59:59 CLS Outpatient DEYA BLANCO MD [facility] RAD GASTROINTESTIONAL UPSET ABDOMINAL PAIN [id number] 01/06/2014 09:50:00 2013 23:59:59 CLS Outpatient KEKE VINES [facility] CARD HTN,PVC [id number] 08/15/2013 10:08:00 2013 00:01:00 DIS Outpatient KEKE VINES [facility] CARD HTN,HLP,PALP [id number] 11/11/2013 14:18:00 2013 23:59:59 CLS Outpatient DEYA BLANCO MD [facility] RAD SCREENING [id number] 08/20/2013 08:46:00 2013 23:59:59 CLS Outpatient ELISE RIDER MD [facility] CATH ABNORMAL STRESS, HTN,SOB,HLP, PALPITAIONS,OBESITY [id number] 08/18/2013 07:26:00 2013 23:59:59 CLS Outpatient KEKE VINES [facility] RAD HTN,HLP,PALP [id number] 05/27/2013 12:01:00 2012 16:05:00 DIS Outpatient SARAI TOBIAS DO [facility] SDC HISTORY DIVERTICULITIS [id number] 05/21/2013 09:30:00 2012 23:59:59 CLS Outpatient SARAI TOBIAS DO [facility] PREOP HISTORY OF DIVERTICULITITS [id number] 03/17/2013 12:02:00 2012 13:35:00 DIS Inpatient DEYA BLANCO MD [facility] 4TH DIVERTICULITIS [id number] 11/18/2012 16:15:00 2012 23:59:59 CLS Outpatient DEYA BLANCO MD [facility] RAD R HIP PAIN [id number] 02/07/2016 08:37:00 ACT Outpatient KEKE YUAN [facility] CARD A FIB,HTN,HLP,HSVT [id number] 02/04/2016 09:01:00 ACT Outpatient ELISE RIDER MD [facility] CATH AFIB,DYSPNEA,HTN [id number] 11/15/2015 14:42:00 ACT Outpatient DEYA BLANCO MD [facility] RAD SCREENING [id number] 03/24/2014 12:01:00 Document Registration [id number] 11/14/2013 10:00:00 Document Registration [id number] 10/15/2012 09:41:00 Document Registration [id number] 03/29/2012 15:37:00 Document Registration [id number] 03/01/2012 08:29:00 Document Registration [id number] 03/03/2011 14:09:00 Document Registration [id number] 12/26/2010 05:40:00 Document Registration [id number] 12/22/2010 15:38:00 Document Registration
== END 2016-10-04 17:45 | disposition home or self-care (01) ==
LOC: DELPENDDIS → CATH 11:09 → ICU 13:50 → CATH 17:45
PROVIDERS: ATTEND Internal Medicine Cardiovascular Disease
DX: I48.0 Paroxysmal atrial fibrillation (principal); I47.2 Ventricular tachycardia; I10 Essential (primary) hypertension; K21.9 Gastro-esophageal reflux disease without esophagitis; E78.5 Hyperlipidemia, unspecified; J44.9 Chronic obstructive pulmonary disease, unspecified; Z79.01 Long term (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; Z79.899 Other long term (current) drug therapy
CPT/HCPCS: 36415; 71010; 80053; 85027; 85610; 85730; 87081; 92960; 93005; 93312

== ENCOUNTER 2016-10-31 14:05 | Emergency (ER) | payer MEDICARE, OTHER ==
[~2016-10-31] VITALS: Ht 149.9 cm; Wt 64.9 kg
[~2016-10-31 14:05] MED LIST changes: +ATOR40TA70 PO; +CRAN1TAB5 PO; +DOFE250C PO; +FURO20TA4 PO; +MEXI200C PO; +WARF-48 PO
--- NOTE | 2016-10-31 14:20 | ED Chest Pain ---
General Chief Complaint: Cardiac/General Problems Stated Complaint: IRR HEART RATE Nursing Triage Note: pt states she is having pain in her chest area. she went to her primary provider and they told her to come here and get an ekg. she has been having a feeling of being "full" in her chest since last Sunday. Nursing Sepsis Screen: No Definite Risk Source: patient, RN notes reviewed Exam Limitations: no limitations History of Present Illness Time seen by provider: 14:20 Initial Comments As above and below. Describes what sounds like PAF that has become worse over the last 4 days. Gets nauseated when occurs. 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 OPERATOR: No NTG SL LINK AND LINK KNITTING MACHINE OPERATOR: No Associated Symptoms: denies symptoms Allergies and Home Medications Allergies Coded Allergies: Sulfa (Sulfonamide Antibiotics) (Verified Allergy, Unknown, 07/29/07) Home Medications Acetaminophen/Diphenhydramine 1 Ea Tab, 1 TAB PO HS, (Reported) Alprazolam 0.5 Mg Tablet, 0.5 MG PO TID PRN for ANXIETY, (Reported) NEEDED FOR ANXIETY Atorvastatin Calcium 40 Mg Tablet, 40 MG PO HS, (Reported) Cholecalciferol 5,000 Unit Capsule, 5,000 UNIT PO DAILY, (Reported) Cranberry Conc/C/Bacill Coag 1 Each Tablet, 1 TAB PO DAILY, (Reported) Escitalopram Oxalate 20 Mg Tablet, 20 MG PO DAILY, (Reported) Furosemide 20 Mg Tablet, 20 MG PO Q48H, (Reported) TAKES ON EVEN DAYS Furosemide 20 Mg Tablet, 40 MG PO Q48H, (Reported) TAKES 2 (20 MG) TABLETS ON ODD DAYS Mexiletine HCl 200 Mg Capsule, 200 MG PO BID, (Reported) Pantoprazole Sod 40 Mg Tab, 40 MG PO DAILY, (Reported) Spironolactone 25 Mg Tablet, 25 MG PO DAILY, (Reported) Warfarin Sodium 5 Mg Tablet, 5 MG PO MoWeFr, (Reported) Warfarin Sodium 5 Mg Tablet, 2.5 MG PO SuTuThSa, (Reported) TAKES 1/2 OF A (5 MG) TABLET) Review of Systems Constitutional: see HPI Cardiovascular: See HPI, Chest Pain, Irregular Heart Rate, Palpitations Gastrointestinal: See HPI, Nausea All Other Systems Reviewed Negative Unless Noted: Yes (Negative excepted noted.) Past Pazxmdj-Jvwiki-Zowofi Hx Patient Social History Alcohol Use: Denies Use Recreational Drug Use: No Smoking Status: Never a Smoker 2nd Hand Smoke Exposure: Yes Recent Foreign Travel: No Contact w/Someone Who Travel: No Recent Infectious Disease Expo: No Recent Hopitalizations: Yes Immunizations Up To Date Tetanus Booster (TDap): Less than 5yrs PED Vaccines UTD: No Date of Influenza Vaccine: Apr 10, 2016 Surgeries HX Surgeries: Yes (HYST,BREAST REDUCTION,OOPH.,RECTOCELE) Surgeries: Breast, Hysterectomy, Rectal, Tonsillectomy Respiratory Hx Respiratory Disorders: No Respiratory Disorders: Sleep Apnea Cardiovascular Hx Cardiac Disorders: Yes Cardiac Disorders: Atrial Fibrillation, Hypertension Neurological Hx Neurological Disorders: No Reproductive System Sexually Transmitted Disease: No Genitourinary Hx Genitourinary Disorders: No Gastrointestinal Hx Gastrointestinal Disorders: Yes Gastrointestinal Disorders: Gastroesophageal Reflux, Diverticulosis Musculoskeletal Hx Musculoskeletal Disorders: Yes (OCC.GOES TO CHIROPRACTOR) Endocrine Hx Endocrine Disorders: No HEENT HX ENT Disorders: No Cancer Hx Cancer: No Psychosocial Hx Psychiatric Problems: No Integumentary HX Skin/Integumentary Disorder: No Blood Transfusions Hx Blood Disorders: No Physical Exam Vital Signs Vital Sign - Last 12Hours 10/31/16 14:05 Temp 97.9 Pulse 65 Resp 17 B/P (MAP) 178/77 Pulse Ox 95 Capillary Refill : Less Than 3 Seconds General Appearance: No Apparent Distress, WD/WN, Anxious Respiratory: No Respiratory Distress Cardiovascular: Regular Rate, Rhythm Rectal: Deferred Neurologic/Psychiatric: Alert, Oriented x3, No Motor/Sensory Deficits Skin: Warm/Dry Progress/Results/Core Measures Results/Orders Lab Results Laboratory Tests Test 10/31/16 15:00 Range/Units White Blood Count 10.4 4.3-11.0 10^3/uL Red Blood Count 4.09 L 4.35-5.85 10^6/uL Hemoglobin 11.6 11.5-16.0 G/DL Hematocrit 35 35-52 % Mean Corpuscular Volume 86 80-99 FL Mean Corpuscular Hemoglobin 28 25-34 PG Mean Corpuscular Hemoglobin Concent 33 32-36 G/DL Red Cell Distribution Width 14.3 10.0-14.5 % Platelet Count 329 130-400 10^3/uL Mean Platelet Volume 9.6 7.4-10.4 FL Neutrophils (%) (Auto) 63 42-75 % Lymphocytes (%) (Auto) 29 12-44 % Monocytes (%) (Auto) 6 0-12 % Eosinophils (%) (Auto) 1 0-10 % Basophils (%) (Auto) 0 0-10 % Neutrophils # (Auto) 6.5 1.8-7.8 X 10^3 Lymphocytes # (Auto) 3.1 1.0-4.0 X 10^3 Monocytes # (Auto) 0.6 0.0-1.0 X 10^3 Eosinophils # (Auto) 0.1 0.0-0.3 10^3/uL Basophils # (Auto) 0.0 0.0-0.1 10^3/uL Prothrombin Time 23.9 H 12.2-14.7 SEC INR Comment 2.2 H 0.8-1.4 Sodium Level 141 135-145 MMOL/L Potassium Level 3.4 L 3.6-5.0 MMOL/L Chloride Level 105 98-107 MMOL/L Carbon Dioxide Level 26 21-32 MMOL/L Anion Gap 10 5-14 MMOL/L Blood Urea Nitrogen 13 7-18 MG/DL Creatinine 0.69 0.60-1.30 MG/DL Estimat Glomerular Filtration Rate > 60 BUN/Creatinine Ratio 19 Glucose Level 92 70-105 MG/DL Calcium Level 8.9 8.5-10.1 MG/DL Magnesium Level 2.1 1.8-2.4 MG/DL Total Bilirubin 0.5 0.1-1.0 MG/DL Aspartate Amino Transf (AST/SGOT) 13 5-34 U/L Alanine Aminotransferase (ALT/SGPT) 13 0-55 U/L Alkaline Phosphatase 83 40-136 U/L Troponin I < 0.30 <0.30 NG/ML B-Type Natriuretic Peptide 151.9 H <100.0 PG/ML Total Protein 6.9 6.4-8.2 G/DL Albumin 4.2 3.2-4.5 G/DL Lipase 14 8-78 U/L My Orders Orders - JOYCE KIM DO Saline Lock/Iv-Start (10/31/16 14:20) Ekg Tracing (10/31/16 14:20) BNP (10/31/16 14:20) Cbc With Automated Diff (10/31/16 14:20) Comprehensive Metabolic Panel (10/31/16 14:20) Lipase (10/31/16 14:20) Magnesium (10/31/16 14:20) Troponin I (10/31/16 14:20) Chest 1 View, Ap/Pa Only (10/31/16 14:20) Protime With Inr (10/31/16 14:22) Potassium Chloride (Tablet) (K Dur Table (10/31/16 16:00) Medications Given in ED Current Medications Medications Dose Ordered Sig/Allie Route Start Time Stop Time Status Last Admin Dose Admin Potassium Chloride 40 meq ONCE ONCE PO 10/31/16 16:00 10/31/16 16:01 DC 10/31/16 16:40 40 MEQ Vital Signs/I&O Vital Sign - Last 12Hours 10/31/16 14:05 Temp 97.9 Pulse 65 Resp 17 B/P (MAP) 178/77 Pulse Ox 95 Blood Pressure Mean: 110 ECG Initial ECG Impression Date: Oct 31, 2016 Initial ECG Rhythm: Normal Sinus Initial ECG Impression: Nonspecific Changes Diagnostic Imaging Diagonstic Imaging: Xray Plain Films/CT/US/NM/MRI: chest (mild cardiomegaly and venous vascular congestion) Departure Impression Impression: Primary Impression: Suspect PAF Disposition: 01 HOME, SELF-CARE Condition: Stable Departure-Patient Inst. Decision time for Depature: 16:43 Referrals: DEYA BLANCO MD (PCP/Family) Primary Care Physician Patient Instructions: Atrial Fibrillation (DC) Add. Discharge Instructions: All discharge instructions reviewed with patient and/or family. Voiced understanding. RECOMMEND INCREASING YOUR MEXILETINE TO 200 mg EVERY 8 HOURS FROM 200 mg EVERY 12 HOURS. NEED TO SCHEDULE A FOLLOW UP WITH DR. ELIUD NOVAK. JOYCE KIM DO Oct 31, 2016 14:20
[2016-10-31 15:11] LABS: BASOPHILS % (AUTO) 0 % (0-10); EOSINOPHILS # (AUTO) 0.1 10^3/uL (0.0-0.3); EOSINOPHILS % (AUTO) 1 % (0-10); LYMPHOCYTES # (AUTO) 3.1 X 10^3 (1.0-4.0); LYMPHOCYTES % (AUTO) 29 % (12-44); MEAN CORPUSCULAR HEMOGLOBIN 28 PG (25-34); MEAN CORPUSCULAR HGB CONC 33 G/DL (32-36); MEAN CORPUSCULAR VOLUME 86 FL (80-99); MEAN PLATELET VOLUME 9.6 FL (7.4-10.4); MONOCYTES # (AUTO) 0.6 X 10^3 (0.0-1.0); MONOCYTES % (AUTO) 6 % (0-12); NEUTROPHILS # (AUTO) 6.5 X 10^3 (1.8-7.8); NEUTROPHILS % (AUTO) 63 % (42-75); PLATELET COUNT 329 10^3/uL (130-400); RED BLOOD COUNT 4.09 10^6/uL (4.35-5.85); RED CELL DISTRIBUTION WIDTH 14.3 % (10.0-14.5); WHITE BLOOD COUNT 10.4 10^3/uL (4.3-11.0)
--- NOTE | 2016-10-31 15:14 | Diagnostic Imaging Report ---
INDICATION: Cardiac dysrhythmia. 1507 hrs. COMPARISON: Portable upright view of the chest is obtained with comparison made to study of 10/04/2016. FINDINGS: The heart size is at the upper limits of normal. There is mild pulmonary venous congestion. No overt edema is identified. There is no evidence of pneumothorax or significant pleural fluid. IMPRESSION: Mild cardiomegaly and pulmonary venous congestion without overt edema or other significant change. Dictated by: Dictated on workstation # [id number]
[2016-10-31 15:24] LABS: INR 2.2 (0.8-1.4); PROTHROMBIN TIME PATIENT 23.9 SEC (12.2-14.7)
[2016-10-31 15:37] LABS: ALANINE AMINOTRANSFERASE 13 U/L (0-55); ALBUMIN 4.2 G/DL (3.2-4.5); ANION GAP 10 MMOL/L (5-14); ASPARTATE AMINO TRANSFERASE 13 U/L (5-34); BILIRUBIN,TOTAL 0.5 MG/DL (0.1-1.0); BLOOD UREA NITROGEN 13 MG/DL (7-18); BUN/CREATININE RATIO 19; CALCIUM 8.9 MG/DL (8.5-10.1); CARBON DIOXIDE 26 MMOL/L (21-32); CHLORIDE 105 MMOL/L (98-107); CREATININE SERUM 0.69 MG/DL (0.60-1.30); GFR ESTIMATED > 60; GLUCOSE 92 MG/DL (70-105); LIPASE 14 U/L (8-78); MAGNESIUM 2.1 MG/DL (1.8-2.4); POTASSIUM 3.4 MMOL/L (3.6-5.0); SODIUM 141 MMOL/L (135-145); TOTAL PROTEIN 6.9 G/DL (6.4-8.2)
[2016-10-31 15:43] LABS: TROPONIN I < 0.30 NG/ML (<0.30)
[2016-10-31] MEDS ORDERED: KCL 20 MEQ TAB (K-DUR) PO ONE (16:00)
[2016-10-31 16:57] VITALS: BP 150/72
== END 2016-10-31 16:57 | disposition home or self-care (01) ==
LOC: EDUNIT# 14:05 → ER 14:07
DX: R07.9 Chest pain, unspecified (principal); I48.2 Chronic atrial fibrillation; I10 Essential (primary) hypertension; Z79.01 Long term (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; Z79.899 Other long term (current) drug therapy
CPT/HCPCS: 36415; 71010; 80053; 83690; 83735; 83880; 84484; 85025; 85610; 93005

== ENCOUNTER 2016-11-07 18:38 | Inpatient (IN) | payer MEDICARE, OTHER ==
[2016-11-07] VITALS (9 sets, daily range): BP systolic 115–147; BP diastolic 49–85
[~2016-11-07] VITALS: Ht 149.9 cm; Wt 67.5 kg
--- NOTE | 2016-11-07 19:30 | Cardiology History & Physical ---
HPI-Cardiology Cardiology Consultation Date of Consultation 11/07/16 Date of Admission Indication: bradycardia HPI 66-year-old lady with history of paroxysmal atrial fibrillation/flutter, history of hypertension. Patient has been seeing Dr. Gallegos in the past, had the link device implanted, patient underwent a Holter monitor done at which showed multiple episodes of bradycardia with 4 second spot is, patient has been complaining of dizziness and lightheadedness, no full syncope was reported, generalized fatigue and loss of energy. She has been compliant with her medication, she was contacted to be admitted and monitored, consideration for pacemaker implantation if she continued to have multiple episodes of bradycardia. Patient was unable to tolerate medication in the past due to severe bradycardia, shortness of breath, fatigue and loss of energy. PMH-Cardiology Immunizations Up To Date Tetanus Booster (DTap): Less than 5yrs Date of Influenza Vaccine: Apr 10, 2016 Surgeries HX Surgeries: Yes (HYST,BREAST REDUCTION,OOPH.,RECTOCELE) Respiratory Hx Respiratory Disorders: No Cardiovascular Hx Cardiovascular Disorders: Yes Cardiac Disorders: Atrial Fibrillation, High Cholesterol, Hypertension Neurological Hx Neurological Disorders: No Reproductive System Sexually Transmitted Disease: No Genitourinary Hx Genitourinary Disorders: No Gastrointestinal Hx Gastrointestinal Disorders: Yes Gastrointestinal Disorders: Gastroesophageal Reflux, Diverticulosis Musculoskeletal Hx Musculoskeletal Disorders: Yes (OCC.GOES TO CHIROPRACTOR) Endocrine Hx Endocrine Disorders: No HEENT HX ENT Disorders: No Cancer Hx Cancer: No Psychosocial Hx Psychiatric Problems: No Integumentary HX Skin/Integumentary Disorder: No Blood Transfusions Hx Blood Disorders: No Social History Patient Social History Marrital Status: Employed/Student: employed Alcohol Use: Denies Use Smoking: Never smoker Recent Foreign Travel: No Contact w/other who traveled: No Family Hx Other noncontributory to her current condition ROS-Cardiology Review of Systems General: No Chills, No Night Sweats, Fatigue, Malaise, No Appetite HEENT: No Head Aches, No Visual Changes, No Eye Pain, No Ear Pain, No Dysphasia , No Sinus Congestion, No Post Nasal Drip, No Sore Throat Pulmonary: Dyspnea, No Cough, No Pleuritic Chest Pain Cardiovascular: No: Chest Pain, Edema, Lt Headedness, Orthopnea, Palpitations, Paroxysmal Noc. Dyspnea Gastrointestinal: No: Abdominal Pain, Constipation, Diarrhea, Hematochezia, Melena, Nausea, Vomiting Genitourinary: No Dysuria, No Frequency, No Incontinence, No Hematuria, No Retention Musculoskeletal: No: arm pain, back pain, foot pain, hand pain, leg pain, neck pain, shoulder pain Neurological: No: Change in speech, Confusion, Incoordination, Numbness, Seizures, Weakness Home Medications & Allergies Allergies: Coded Allergies: Sulfa (Sulfonamide Antibiotics) (Verified Allergy, Unknown, 07/29/07) Home Medication List Reviewed: Yes Exam-Cardiology Exam General Appearance: Alert, Oriented X3, Cooperative, No Acute Distress HEENT: Atraumatic, PERRLA Respiratory: Clear to Auscultation, Normal Air Movement Cardiovascular: Normal S1, Normal S2, No Murmurs, Other (irregular rhythm) Abdominal: Normal Bowel Sounds, Soft, No Tenderness, No Hepatosplenomegaly, No Masses Extremities: No Clubbing, No Cyanosis, No Edema, Normal Pulses, No Tenderness/ Swelling Skin: No Rashes, No Breakdown, No Significant Lesion Neuro: Normal Gait, Normal Speech, Strength at 5/5 X4 Ext, Normal Tone, Sensation Intact Psych/Mental Status: Mental Status NL, Mood NL Results Labs Labs labs are pending A/P-Cardiology Admission Diagnosis paroxysmal atrial fibrillation/atrial flutter Nonsustained ventricular tachycardia Coronary artery disease Dizziness and lightheadedness Bradycardia Assessment/Plan Paroxysmal atrial fibrillation/atrial flutter, has been seen by Dr. Gallegos at , had a link implant, underwent VICKIE with cardioversion for termination of atrial flutter, patient was seen in my office last month and she was back in atrial flutter, referred back El, had a Holter monitor which showed multiple pauses up to 4 seconds. Patient has been complaining of generalized fatigue and loss of energy. She was contacted to be admitted and monitored in the hospital. She has been complaining of fatigue and feeling fullness in her abdomen. History of A. fib ablation in 2010, recurrent atrial fibrillation with ablation in June 2014, episode of AV block, first-degree AV block and episode of Wenckebach, intolerant to flecainide, flecainide was discontinued, treated with mexiletine, had generalized fatigue and loss of energy on mexiletine after changing the dose, treated with Tikosyn, failed Tikosyn treatment, return to atrial fibrillation after ablation. Seen by Dr. Gallegos last month, had a Holter monitor which showed multiple episode of bradycardia with up to 4 second positive Dizziness and lightheadedness, no full syncope was reported. Coronary artery disease, most recent cardiac catheterization done on 08/20/2013 revealed dominant circumflex system with no obstructive disease and coronary system with EF of 60 percent. Continue to monitor at this time. History of nonsustained V. tach status post ablation approximately 5 years ago. Status post Linq implantation, maintained on mexiletine, continue to monitor Last echocardiogram was done in February 2016 showing normal LV size, ejection fraction 50 percent, mildly dilated left atrium measuring 4.1 cm, mild to moderate MR, mild TR, PA pressure of 50 mmHg. Continue to monitor. Hypertension, restart home medication monitor blood pressure Hyperlipidemia, monitor lipids Gastroesophageal reflux managed by primary care physician COPD, obstructive sleep apnea, using C Pap at night, followed by primary care physician. Carotid ultrasound showing no significant stenosis done in September 2016. Continue to monitor. Depression ELISE RIDER MD November 07, 2016 19:30
[2016-11-07 19:59] LABS: INR 2.3 (0.8-1.4); PROTHROMBIN TIME PATIENT 25.4 SEC (12.2-14.7)
[2016-11-07 20:08] LABS: ALANINE AMINOTRANSFERASE 9 U/L (0-55); ALBUMIN 4.4 G/DL (3.2-4.5); ANION GAP 9 MMOL/L (5-14); ASPARTATE AMINO TRANSFERASE 14 U/L (5-34); BILIRUBIN,TOTAL 0.5 MG/DL (0.1-1.0); BLOOD UREA NITROGEN 13 MG/DL (7-18); BUN/CREATININE RATIO 16; CALCIUM 9.5 MG/DL (8.5-10.1); CARBON DIOXIDE 27 MMOL/L (21-32); CHLORIDE 104 MMOL/L (98-107); CREATININE SERUM 0.81 MG/DL (0.60-1.30); GFR ESTIMATED > 60; GLUCOSE 95 MG/DL (70-105); POTASSIUM 3.5 MMOL/L (3.6-5.0); SODIUM 140 MMOL/L (135-145); TOTAL PROTEIN 7.3 G/DL (6.4-8.2)
[2016-11-07 20:18] LABS: MEAN PLATELET VOLUME 9.8 FL (7.4-10.4); RED BLOOD COUNT 4.49 10^6/uL (4.35-5.85); RED CELL DISTRIBUTION WIDTH 14.1 % (10.0-14.5); WHITE BLOOD COUNT 11.7 10^3/uL (4.3-11.0)
[2016-11-07 20:28] LABS: TROPONIN I < 0.30 NG/ML (<0.30)
[2016-11-07] MEDS: diphenhydrAMINE 25 MG TAB (BENADRYL) PO SCH (21:00)
[2016-11-07] MEDS: MEXILETINE 200 MG PO SCH (21:00)
[2016-11-07] MEDS: ACETAMINOPHEN 500 MG TAB (TYLENOL) PO SCH (21:00)
[2016-11-07] MEDS: ALPRAZolam 0.5 MG (XANAX) TAB PO PRN (21:00)
[2016-11-08] VITALS (10 sets, daily range): BP systolic 99–154; BP diastolic 43–85
[2016-11-08] MEDS: PANTOPRAZOLE 40 MG (PROTONIX) TAB PO SCH (06:58)
--- NOTE | 2016-11-08 08:51 | Cardiology Progress Note ---
Subjective Subjective/Events-last exam Patient is sitting up in chair, reports episode of dizziness/lightheadedness this morning while standing by window. Has had bradycardia on telemetry with HR in the 30's. Denies any CP or dyspnea. Objective-Cardiology Exam Last Set of Vital Signs Vital Signs 11/07/16 11/08/16 11/08/16 19:05 04:00 07:00 Temp 98.6 Pulse 70 Resp 20 B/P (MAP) 124/62 Pulse Ox 98 O2 Delivery Room Air Capillary Refill : I&O Bad tableGeneral: Alert, Oriented X3, Cooperative, No Acute Distress HEENT: Atraumatic, PERRLA Lungs: Clear to Auscultation, Normal Air Movement Heart: Normal S1, Normal S2, No Murmurs, Other (irregular rhythm) Abdomen: Normal Bowel Sounds, Soft, No Tenderness, No Hepatosplenomegaly, No Masses Extremities: No Clubbing, No Cyanosis, No Edema, Normal Pulses, No Tenderness/ Swelling Skin: No Rashes, No Breakdown, No Significant Lesion Neuro: Normal Gait, Normal Speech, Strength at 5/5 X4 Ext, Normal Tone, Sensation Intact Psych/Mental Status: Mental Status NL, Mood NL Results Lab Laboratory Tests 11/07/16 19:42 A/P-Cardiology Admission Diagnosis paroxysmal atrial fibrillation/atrial flutter Nonsustained ventricular tachycardia Coronary artery disease Dizziness and lightheadedness Bradycardia Assessment/Plan Paroxysmal atrial fibrillation/atrial flutter, has been seen by Dr. Gallegos at , had a link implant, underwent VICKIE with cardioversion for termination of atrial flutter, patient was seen in my office last month and she was back in atrial flutter, referred back El, had a Holter monitor which showed multiple pauses up to 4 seconds. Patient has been complaining of generalized fatigue and loss of energy. Occasional dizziness, lightheadedness, denies any syncopal episode. She was contacted to be admitted and monitored in the hospital. Had episode of bradycardia with HR in the 30's this morning while asleep. Will further interrogate LINQ device. Planning for pacemaker implantation this afternoon History of A. fib ablation in 2010, recurrent atrial fibrillation with ablation in June 2014, episode of AV block, first-degree AV block and episode of Wenckebach, intolerant to flecainide, flecainide was discontinued, treated with mexiletine, had generalized fatigue and loss of energy on mexiletine after changing the dose, treated with Tikosyn, failed Tikosyn treatment, return to atrial fibrillation after ablation. Seen by Dr. Gallegos last month, had a Holter monitor which showed multiple episode of bradycardia with up to 4 second positive Dizziness and lightheadedness, no full syncope was reported. Coronary artery disease, most recent cardiac catheterization done on 08/20/2013 revealed dominant circumflex system with no obstructive disease and coronary system with EF of 60 percent. Continue to monitor at this time. History of nonsustained V. tach status post ablation approximately 5 years ago. Status post Linq implantation, maintained on mexiletine, continue to monitor Last echocardiogram was done in February 2016 showing normal LV size, ejection fraction 50 percent, mildly dilated left atrium measuring 4.1 cm, mild to moderate MR, mild TR, PA pressure of 50 mmHg. Continue to monitor. Hypertension, controlled. Continue to monitor BP/HR. Hyperlipidemia, monitor lipids Gastroesophageal reflux managed by primary care physician COPD, obstructive sleep apnea, using C Pap at night, followed by primary care physician. Carotid ultrasound showing no significant stenosis done in September 2016. Continue to monitor. Depression Clinical Quality Measures DVT/VTE Risk/Contraindication: Risk Factor Score Per Nursin RFS Level Per Nursing on Admit: 2=Moderate KEKE ZAPATA November 08, 2016 08:51
[2016-11-08] MEDS: SPIRONOLACTONE 25 MG (ALDACTONE) TAB PO SCH (09:12)
[2016-11-08] MEDS: MEXILETINE 200 MG PO SCH ×2 (09:20→21:04)
[2016-11-08 09:43] LABS: INR 2.3 (0.8-1.4); PROTHROMBIN TIME PATIENT 25.5 SEC (12.2-14.7)
[2016-11-08] MEDS ORDERED: SPIR25TA3 PO (09:43)
[2016-11-08] MEDS ORDERED: ESCI20TA45 PO (09:43)
[2016-11-08] MEDS ORDERED: ALPR0.5T7 PO (09:43)
[2016-11-08] MEDS ORDERED: PANT40TA3 PO (09:43)
--- NOTE | 2016-11-08 12:54 | Cardiology Progress Note ---
Subjective Subjective/Events-last exam patient is sitting comfortably in a chair, had multiple pauses last night between 3-1/2 and 4 seconds, complaining of generalized fatigue, having bradycardia with a heart rate in the 30s. Review of Systems General: No Chills, No Night Sweats, No Fatigue, No Malaise, No Appetite, No Other HEENT: No Head Aches, No Visual Changes, No Eye Pain, No Ear Pain, No Dysphasia , No Sinus Congestion, No Post Nasal Drip, No Sore Throat, No Other Pulmonary: No Dyspnea, No Cough, No Pleuritic Chest Pain, No Other Cardiovascular: No: Chest Pain, Edema, Lt Headedness, Orthopnea, Other, Palpitations, Paroxysmal Noc. Dyspnea Objective-Cardiology Exam Last Set of Vital Signs Vital Signs Capillary Refill : I&O Bad tableGeneral: Alert, Oriented X3, Cooperative, No Acute Distress HEENT: Atraumatic, PERRLA Lungs: Clear to Auscultation, Normal Air Movement Heart: Normal S1, Normal S2, No Murmurs, Other (irregular rhythm) Abdomen: Normal Bowel Sounds, Soft, No Tenderness, No Hepatosplenomegaly, No Masses Extremities: No Clubbing, No Cyanosis, No Edema, Normal Pulses, No Tenderness/ Swelling Skin: No Rashes, No Breakdown, No Significant Lesion Neuro: Normal Gait, Normal Speech, Strength at 5/5 X4 Ext, Normal Tone, Sensation Intact Psych/Mental Status: Mental Status NL, Mood NL Results Lab Laboratory Tests 11/07/16 19:42 A/P-Cardiology Admission Diagnosis paroxysmal atrial fibrillation/atrial flutter Nonsustained ventricular tachycardia Coronary artery disease Dizziness and lightheadedness Bradycardia Assessment/Plan Paroxysmal atrial fibrillation/atrial flutter, has been seen by Dr. Gallegos at , had a link implant, underwent VICKIE with cardioversion for termination of atrial flutter, patient was seen in my office last month and she was back in atrial flutter, referred back El, had a Holter monitor which showed multiple pauses up to 4 seconds. Patient has been complaining of generalized fatigue and loss of energy. Occasional dizziness, lightheadedness, denies any syncopal episode. She was contacted to be admitted and monitored in the hospital. Had episode of bradycardia with HR in the 30's this morning while asleep. planning to proceed with pacemaker implantation, her INR was 2.3 today, I will postpone the procedure until tomorrow. History of A. fib ablation in 2010, recurrent atrial fibrillation with ablation in June 2014, episode of AV block, first-degree AV block and episode of Wenckebach, intolerant to flecainide, flecainide was discontinued, treated with mexiletine, had generalized fatigue and loss of energy on mexiletine after changing the dose, treated with Tikosyn, failed Tikosyn treatment, return to atrial fibrillation after ablation. Seen by Dr. Gallegos last month, had a Holter monitor which showed multiple episode of bradycardia with up to 4 second pause, telemetry overnight showed multiple pauses between 3.5 and 4 seconds. Bradycardia. Planning for Will chamber pacemaker implantation. Dizziness and lightheadedness, no full syncope was reported. Coronary artery disease, most recent cardiac catheterization done on 08/20/2013 revealed dominant circumflex system with no obstructive disease and coronary system with EF of 60 percent. Continue to monitor at this time. History of nonsustained V. tach status post ablation approximately 5 years ago. Status post Linq implantation, maintained on mexiletine, continue to monitor Last echocardiogram was done in February 2016 showing normal LV size, ejection fraction 50 percent, mildly dilated left atrium measuring 4.1 cm, mild to moderate MR, mild TR, PA pressure of 50 mmHg. Continue to monitor. Hypertension, controlled. Continue to monitor BP/HR. Hyperlipidemia, monitor lipids Gastroesophageal reflux managed by primary care physician COPD, obstructive sleep apnea, using C Pap at night, followed by primary care physician. Carotid ultrasound showing no significant stenosis done in September 2016. Continue to monitor. Depression Clinical Quality Measures DVT/VTE Risk/Contraindication: Risk Factor Score Per Nursin RFS Level Per Nursing on Admit: 2=Moderate ELISE RIDER MD November 08, 2016 12:54
[2016-11-08] MEDS ORDERED: warFARin 2.5 MG (COUMADIN) TAB PO SCH (18:00)
[2016-11-08] MEDS: ALPRAZolam 0.5 MG (XANAX) TAB PO PRN (21:05)
[2016-11-08] MEDS: ACETAMINOPHEN 500 MG TAB (TYLENOL) PO SCH (21:05)
[2016-11-08] MEDS: diphenhydrAMINE 25 MG TAB (BENADRYL) PO SCH (21:05)
[2016-11-09] VITALS (14 sets, daily range): BP systolic 113–165; BP diastolic 54–92
[2016-11-09 03:56] LABS: INR 2.3 (0.8-1.4); PROTHROMBIN TIME PATIENT 24.7 SEC (12.2-14.7)
[2016-11-09] MEDS: PANTOPRAZOLE 40 MG (PROTONIX) TAB PO SCH (06:15)
--- NOTE | 2016-11-09 07:39 | Cardiology Progress Note ---
Subjective Subjective/Events-last exam patient is feeling well. Did not have any bradycardiac episode last night. Review of Systems General: No Chills, No Night Sweats, No Fatigue, No Malaise, No Appetite, No Other HEENT: No Head Aches, No Visual Changes, No Eye Pain, No Ear Pain, No Dysphasia , No Sinus Congestion, No Post Nasal Drip, No Sore Throat, No Other Pulmonary: No Dyspnea, No Cough, No Pleuritic Chest Pain, No Other Cardiovascular: No: Chest Pain, Edema, Lt Headedness, Orthopnea, Other, Palpitations, Paroxysmal Noc. Dyspnea Objective-Cardiology Exam Last Set of Vital Signs Vital Signs 11/08/16 11/09/16 11/09/16 11/09/16 16:00 00:07 04:00 06:43 Temp 98.0 Pulse 74 Resp 14 B/P (MAP) 120/68 Pulse Ox 97 O2 Delivery Room Air Capillary Refill : I&O Intake and Output 11/09/16 00:00 Intake Total 900 ml Output Total 2050 ml Balance -1150 ml Intake Oral 900 ml Output Urine Total 2050 ml General: Alert, Oriented X3, Cooperative, No Acute Distress HEENT: Atraumatic, PERRLA Neck: Supple, No JVD Lungs: Clear to Auscultation, Normal Air Movement Heart: Normal S1, Normal S2, No Murmurs, Other (irregular rhythm) Abdomen: Normal Bowel Sounds, Soft, No Tenderness, No Hepatosplenomegaly, No Masses Extremities: No Clubbing, No Cyanosis, No Edema, Normal Pulses, No Tenderness/ Swelling Skin: No Rashes, No Breakdown, No Significant Lesion Neuro: Normal Gait, Normal Speech, Strength at 5/5 X4 Ext, Normal Tone, Sensation Intact Psych/Mental Status: Mental Status NL, Mood NL A/P-Cardiology Admission Diagnosis paroxysmal atrial fibrillation/atrial flutter Nonsustained ventricular tachycardia Coronary artery disease Dizziness and lightheadedness Bradycardia Assessment/Plan Paroxysmal atrial fibrillation/atrial flutter, has been seen by Dr. Gallegos at , had a link implant, underwent VICKIE with cardioversion for termination of atrial flutter, patient was seen in my office last month and she was back in atrial flutter, referred back El, had a Holter monitor which showed multiple pauses up to 4 seconds. Patient has been complaining of generalized fatigue and loss of energy. Occasional dizziness, lightheadedness, denies any syncopal episode. She was contacted to be admitted and monitored in the hospital. Had episode of bradycardia with HR in the 30's this morning while asleep. planning to proceed with pacemaker implantation, History of A. fib ablation in 2010, recurrent atrial fibrillation with ablation in June 2014, episode of AV block, first-degree AV block and episode of Wenckebach, intolerant to flecainide, flecainide was discontinued, treated with mexiletine, had generalized fatigue and loss of energy on mexiletine after changing the dose, treated with Tikosyn, failed Tikosyn treatment, return to atrial fibrillation after ablation. Seen by Dr. Gallegos last month, had a Holter monitor which showed multiple episode of bradycardia with up to 4 second pause, telemetry overnight showed multiple pauses between 3.5 and 4 seconds. Dizziness and lightheadedness, no full syncope was reported. Coronary artery disease, most recent cardiac catheterization done on 08/20/2013 revealed dominant circumflex system with no obstructive disease and coronary system with EF of 60 percent. Continue to monitor at this time. History of nonsustained V. tach status post ablation approximately 5 years ago. Status post Linq implantation, maintained on mexiletine, continue to monitor Last echocardiogram was done in February 2016 showing normal LV size, ejection fraction 50 percent, mildly dilated left atrium measuring 4.1 cm, mild to moderate MR, mild TR, PA pressure of 50 mmHg. Continue to monitor. Hypertension, controlled. Continue to monitor BP/HR. Hyperlipidemia, monitor lipids Gastroesophageal reflux managed by primary care physician COPD, obstructive sleep apnea, using C Pap at night, followed by primary care physician. Carotid ultrasound showing no significant stenosis done in September 2016. Continue to monitor. Depression Clinical Quality Measures DVT/VTE Risk/Contraindication: Risk Factor Score Per Nursin RFS Level Per Nursing on Admit: 2=Moderate ELSIE RIDER MD November 09, 2016 07:39
--- NOTE | 2016-11-09 07:39 | Cardiac Procedure Note-CS/ASA ---
Pre-Procedure Note Pre-Op Procedure Note H&P Reviewed The H&P was reviewed, patient examined and no changes noted. Date H&P Reviewed: November 09, 2016 Time H&P Reviewed: 07:39 Conscious Sedation Pre-Proced Time Reviewed: 07:39 ASA Class: 3 Airway Mallampati Classification: ([place] appropriate class) I. II. III, IV Lungs Heart ASA score ASA 1: a normal healthy patient ASA 2: a patient with a mild systemic disease (mid diabetes, controlled hypertension, obesity x ASA 3: a patient with a severe systemic disease that limits activity (angina , COPD, prior Myocardial infarction) ASA 4: a patient with an incapacitating disease that is a constant threat to life (CHF, renal failure) ASA 5: a moribund patient not expected to survive 24 hrs. (ruptured aneurysm) ASA 6: a declared brain patient whose organs are being harvested. For emergent operations, add the letter E after the classification Grade 3 Sedation Plan: Analgesia, Amnesia, Plan communicated to team members, Discussed options with patient/fam, Discussed risks with patient/fam Note The patient is an appropriate candidate to undergo the planned procedure, sedation, and anesthesia. The patient immediately re-assessed prior to indication. ELISE RIDER MD November 09, 2016 07:39
[2016-11-09] MEDS: MEXILETINE 200 MG PO SCH ×2 (07:59→22:43)
[2016-11-09] MEDS: SPIRONOLACTONE 25 MG (ALDACTONE) TAB PO SCH (07:59)
[2016-11-09] MEDS: ALPRAZolam 0.5 MG (XANAX) TAB PO PRN ×2 (09:30→22:43)
[2016-11-09] MEDS ORDERED: BACITRACIN INJECTION 50,000 UNIT, SODIUM CHLORIDE 0.9% IRRIGATIO 500 ML IR ONE ×2 (09:45)
[2016-11-09] MEDS ORDERED: LIDOCAINE 1% INJ 20 ML (XYLOCAINE) VIAL ONE (11:58)
[2016-11-09] MEDS ORDERED: NS IV 1000 ML 1,000 ML ONE (11:58)
[2016-11-09] MEDS ORDERED: HEParin (CATH LAB) 1,000 ML IV ONE (11:58)
[2016-11-09] MEDS ORDERED: ceFAZolin 1,000 MG (ANCEF) VIAL ONE (12:00)
[2016-11-09] MEDS ORDERED: MIDAZOLAM 5 MG/5 ML (VERSED) VIAL ONE (12:10)
[2016-11-09] MEDS ORDERED: fentaNYL INJECTION 100 MCG/2 ML AMP ONE (12:11)
[2016-11-09] MEDS ORDERED: NS IV 1000 ML 1,000 ML IV SCH ×2 (13:30→14:10)
[2016-11-09] MEDS ORDERED: MIDAZOLAM 2 MG/2 ML (VERSED) VIAL ONE (13:45)
[2016-11-09] MEDS ORDERED: NEO/POLY/BAC (NEOSPORIN) OINT 15 GM TUBE ONE (13:54)
[2016-11-09] MEDS ORDERED: PATIENT MAY USE OWN MEDS, ALL PO SCH (14:15)
--- NOTE | 2016-11-09 14:38 | Diagnostic Imaging Report ---
INDICATION: Pacemaker placement. Frontal chest obtained at 2:25 p.m. and is compared with 10/31/16. FINDINGS: There is a new dual-lead pacemaker over the left chest wall, with right atrial and right ventricular leads. There is cardiomegaly and mild central vascular prominence. There is no pneumothorax or pleural fluid following device placement. There is no focal infiltrate. IMPRESSION: Cardiomegaly and mild central vascular prominence. No pneumothorax or focal infiltrate or pleural fluid following device placement. New pacemaker appears in good position as above. Dictated by: Dictated on workstation # [id number]
[2016-11-09] MEDS ORDERED: warFARin 5 MG (COUMADIN) TAB PO SCH (18:00)
[2016-11-09] MEDS: ACETAMINOPHEN 500 MG TAB (TYLENOL) PO SCH (18:03)
[2016-11-09] MEDS: diphenhydrAMINE 25 MG TAB (BENADRYL) PO SCH (22:43)
[2016-11-09] MEDS: ceFAZolin INJECTION 1,000 MG in NS (IVPB) 50 ML IV SCH (22:43)
[2016-11-10 03:00] VITALS: BP 161/79
[2016-11-10 04:00] VITALS: BP 161/79
[2016-11-10 04:17] LABS: MEAN PLATELET VOLUME 9.7 FL (7.4-10.4); RED BLOOD COUNT 4.2 10^6/uL (4.35-5.85); RED CELL DISTRIBUTION WIDTH 14.2 % (10.0-14.5); WHITE BLOOD COUNT 10.9 10^3/uL (4.3-11.0)
[2016-11-10 04:45] LABS: ALANINE AMINOTRANSFERASE 8 U/L (0-55); ALBUMIN 3.9 G/DL (3.2-4.5); ANION GAP 10 MMOL/L (5-14); ASPARTATE AMINO TRANSFERASE 14 U/L (5-34); BILIRUBIN,TOTAL 0.7 MG/DL (0.1-1.0); BLOOD UREA NITROGEN 12 MG/DL (7-18); BUN/CREATININE RATIO 16; CALCIUM 8.8 MG/DL (8.5-10.1); CARBON DIOXIDE 24 MMOL/L (21-32); CHLORIDE 106 MMOL/L (98-107); CREATININE SERUM 0.73 MG/DL (0.60-1.30); GFR ESTIMATED > 60; GLUCOSE 84 MG/DL (70-105); POTASSIUM 4.1 MMOL/L (3.6-5.0); SODIUM 140 MMOL/L (135-145); TOTAL PROTEIN 6.5 G/DL (6.4-8.2)
[2016-11-10] MEDS: ceFAZolin INJECTION 1,000 MG in NS (IVPB) 50 ML IV SCH (06:49)
[2016-11-10] MEDS: PANTOPRAZOLE 40 MG (PROTONIX) TAB PO SCH (06:54)
--- NOTE | 2016-11-10 07:27 | OPERATIVE REPORT ---
DATE OF SERVICE: 11/09/2016 CARDIAC PACEMAKER IMPLANTATION AND DISCHARGE SUMMARY BRIEF HISTORY: The patient is a 66-year-old lady with a history of paroxysmal atrial fibrillation, sick sinus syndrome with multiple episodes of bradycardia and pauses up to 4 seconds. The patient has been complaining of fatigue and loss of energy. She was seen by Dr. Gallegos at , had a Reveal device. She was noted to have an episode of bradycardia and she was called by Dr. Gallegos's office to come to the emergency room and be admitted due to severe bradycardia. She was monitored overnight and noted to have multiple pauses up to 4 seconds. During the day, heart rate was stable, but at night there were reported episodes of heart rates in the 30s. We decided to proceed with pacemaker implantation and the decision was made to put dual-chamber pacemaker after discussing with Dr. Gallegos and discussing the fact that she might undergo a procedure returning to sinus rhythm, which would require the atrial lead pacing. PROCEDURE NOTE: After explaining the procedure to the patient, all pros and cons were explained, all questions were answered, patient signed the consent and she was placed in the cardiac catheterization laboratory. Left chest area was prepped in a sterile fashion, local anesthesia applied, conscious sedation achieved. Skin incision was made and pocket was made, 4 x 4 gauze soaked with antibiotic solution was placed in the pocket. Then, I was able to access the subclavian vein. Two wires were placed and then I placed sheath and advanced ventricular lead. I used Medtronic lead, 52 cm, serial #[id number], advanced to the right ventricular apex. Good sensing and capture activity was noted. Then, an atrial lead was advanced. I used Medtronic lead, 45 cm length, with serial #[id number], advanced to the right atrial appendage. Multiple positions were tested. Good sensing, good impedance. I was unable to pace due to the underlying atrial fibrillation. Then, both leads were secured and the skin pocket was irrigated with antibiotic solution after removing the antibiotic soaks. Then, I placed Medtronic pulse generator using [employer] KISHORE FULLER, serial #[id number], placed attached to the lead and secured, placed in the pocket. Then, the pocket was closed. Testing post implantation showed good numbers. In conclusion, successful dual-chamber pacemaker implantation with no complication. FINAL DIAGNOSES: 1. Paroxysmal atrial fibrillation. 2. Sick sinus syndrome. 3. Symptomatic bradycardia. 4. Hypertension. 5. Hyperlipidemia. Job ID: [id number] DocumentID: [id number] Dictated Date: 11/09/2016 14:18:14 [employer]eding [employer] Manager Date: 11/10/2016 07:26:47 Dictated By: ELISE RIDER MD
[2016-11-10] MEDS ORDERED: CEFU500T63 PO (07:39)
--- NOTE | 2016-11-10 07:43 | Cardiology Discharge Summary ---
Diagnosis/Chief Complaint Date of Admission November 07, 2016 at 18:38 Date of Discharge November 10, 2016 Admission Diagnosis paroxysmal atrial fibrillation/atrial flutter Nonsustained ventricular tachycardia Coronary artery disease Dizziness and lightheadedness Bradycardia Discharge Diagnosis paroxysmal atrial fibrillation/atrial flutter Nonsustained ventricular tachycardia Sick sinus syndrome Coronary artery disease Chief Complaint/HPI Chief Complaint/HPI 66-year-old lady with history of paroxysmal atrial fibrillation/flutter, history of hypertension. Patient has been seeing Dr. Gallegos in the past, had the link device implanted, patient underwent a Holter monitor done at which showed multiple episodes of bradycardia with 4 second spot is, patient has been complaining of dizziness and lightheadedness, no full syncope was reported, generalized fatigue and loss of energy. She has been compliant with her medication, she was contacted to be admitted and monitored, consideration for pacemaker implantation if she continued to have multiple episodes of bradycardia. Patient was unable to tolerate medication in the past due to severe bradycardia, shortness of breath, fatigue and loss of energy. Discharge Summary Hospital Course Hospital Course Paroxysmal atrial fibrillation/atrial flutter, has been seen by Dr. Gallegos at , had a link implant, underwent VICKIE with cardioversion for termination of atrial flutter, patient was seen in my office last month and she was back in atrial flutter, referred back El, had a Holter monitor which showed multiple pauses up to 4 seconds. Patient has been complaining of generalized fatigue and loss of energy. Occasional dizziness, lightheadedness, denies any syncopal episode. She was contacted to be admitted and monitored in the hospital. Had episode of bradycardia with HR in the 30's this morning while asleep. underwent dual-chamber pacemaker implantation with excellent results. Good sensing and capture activity. The decision to proceed with dual-chamber pacemaker was made due to the fact that patient has paroxysmal atrial fibrillation/flutter which require atrial pacing once she converted to sinus rhythm, patient has previous intolerance to multiple antiarrhythmic medication due to the underlying sick sinus syndrome. History of A. fib ablation in 2010, recurrent atrial fibrillation with ablation in June 2014, episode of AV block, first-degree AV block and episode of Wenckebach, intolerant to flecainide, flecainide was discontinued, treated with mexiletine, had generalized fatigue and loss of energy on mexiletine after changing the dose, treated with Tikosyn, failed Tikosyn treatment, return to atrial fibrillation after ablation. Seen by Dr. Gallegos last month, had a Holter monitor which showed multiple episode of bradycardia with up to 4 second pause, telemetry overnight showed multiple pauses between 3.5 and 4 seconds. Dizziness and lightheadedness, no full syncope was reported. Coronary artery disease, most recent cardiac catheterization done on 08/20/2013 revealed dominant circumflex system with no obstructive disease and coronary system with EF of 60 percent. Continue to monitor at this time. History of nonsustained V. tach status post ablation approximately 5 years ago. Status post Linq implantation, maintained on mexiletine, continue to monitor Last echocardiogram was done in February 2016 showing normal LV size, ejection fraction 50 percent, mildly dilated left atrium measuring 4.1 cm, mild to moderate MR, mild TR, PA pressure of 50 mmHg. Continue to monitor. Hypertension, controlled. Continue to monitor BP/HR. Hyperlipidemia, monitor lipids Gastroesophageal reflux managed by primary care physician COPD, obstructive sleep apnea, using C Pap at night, followed by primary care physician. Carotid ultrasound showing no significant stenosis done in September 2016. Continue to monitor. Depression Labs Laboratory Tests 11/07/16 19:42: White Blood Count 11.7H, Prothrombin Time 25.4H, INR Comment 2.3H, Activated Partial Thromboplast Time 49H, Potassium Level 3.5L 11/08/16 09:19: Prothrombin Time 25.5H, INR Comment 2.3H 11/09/16 03:20: Prothrombin Time 24.7H, INR Comment 2.3H 11/10/16 03:35: Red Blood Count 4.20L Procedures None. Discharge Physical Examination Allergies: Coded Allergies: Sulfa (Sulfonamide Antibiotics) (Verified Allergy, Unknown, 07/29/07) Vitals & I&Os Vital Signs Date Time Temp Pulse Resp B/P (MAP) Pulse Ox O2 Delivery O2 Flow Rate FiO2 11/10/16 04:00 64 19 161/79 97 Room Air 11/09/16 12:04 96.7 General Appearance: Alert, Oriented X3, Cooperative, No Acute Distress HEENT: Atraumatic, PERRLA Respiratory: Clear to Auscultation, Normal Air Movement Cardiovascular: Regular Rate, Normal S1, Normal S2, No Murmurs Abdominal: Normal Bowel Sounds, Soft, No Tenderness, No Hepatosplenomegaly, No Masses Extremities: No Clubbing, No Cyanosis, No Edema, Normal Pulses, No Tenderness/ Swelling Skin: No Rashes, No Breakdown, No Significant Lesion Neuro: Normal Gait, Normal Speech, Strength at 5/5 X4 Ext, Normal Tone, Sensation Intact, Cranial Nerves 3-12 NL, Reflexes 2+ Psych/Mental Status: Mental Status NL, Mood NL Discharge Home Medications Reviewed and agree with Discharge Medication list on patient's Discharge Instruction sheet Instructions to Patient/Family Please see electonic discharge instructions given to patient. Clinical Quality Measures DVT/VTE Risk/Contraindication: Risk Factor Score Per Nursin RFS Level Per Nursing on Admit: 2=Moderate ELISE RIDER MD November 10, 2016 07:43
[2016-11-10 09:10] VITALS: BP 143/58
[2016-11-10] MEDS: SPIRONOLACTONE 25 MG (ALDACTONE) TAB PO SCH (09:53)
[2016-11-10] MEDS: MEXILETINE 200 MG PO SCH (09:53)
[2016-11-10 10:25] VITALS: BP 143/58
[2016-11-10] MEDS ORDERED: warFARin 2.5 MG (COUMADIN) TAB PO SCH (18:00)
== END 2016-11-10 10:25 | disposition home or self-care (01) | DRG 244 ==
LOC: ICU 18:38
PROVIDERS: ADMIT Internal Medicine Cardiovascular Disease; ATTEND Internal Medicine Cardiovascular Disease
PROC: 0JH636Z Insertion of Pacemaker, Dual Chamber into Chest Subcutaneous Tissue and Fascia, Percutaneous Approach (ICD-10-PCS; principal; 2016-11-09)
PROC: 02H63JZ Insertion of Pacemaker Lead into Right Atrium, Percutaneous Approach (ICD-10-PCS; 2016-11-09)
PROC: 02HK3JZ Insertion of Pacemaker Lead into Right Ventricle, Percutaneous Approach (ICD-10-PCS; 2016-11-09)
DX: I48.0 Paroxysmal atrial fibrillation (principal); I49.5 Sick sinus syndrome; I48.92 Unspecified atrial flutter; I47.2 Ventricular tachycardia; I10 Essential (primary) hypertension; E78.00 Pure hypercholesterolemia, unspecified; K21.9 Gastro-esophageal reflux disease without esophagitis; K57.90 Diverticulosis of intestine, part unspecified, without perforation or abscess without bleeding; I25.10 Atherosclerotic heart disease of native coronary artery without angina pectoris; J44.9 Chronic obstructive pulmonary disease, unspecified; G47.33 Obstructive sleep apnea (adult) (pediatric); F32.9 Major depressive disorder, single episode, unspecified
CPT/HCPCS: 33208; 36415; 71010; 80053; 83735; 84443; 84484; 85027; 85610; 85730; 93005

== ENCOUNTER 2017-01-24 05:38 | Outpatient (CLI) | payer MEDICARE, OTHER ==
[~2017-01-24] VITALS: Ht 149.9 cm; Wt 63.5 kg
[~2017-01-24 05:38] MED LIST changes: +ALPR0.5T7 PO; +CEFU500T63 PO; +CHOL4PAC3 PO; +CIPR500T4 PO; +ESCI20TA45 PO; +HYDR-3820 PO; +METR500T21 PO; +PANT40TA3 PO; +PHEN95TA30 PO; +SPIR25TA3 PO
== END 2017-01-24 12:51 ==
LOC: PREOP 05:38
PROVIDERS: ATTEND Surgery
DX: Z01.818 Encounter for other preprocedural examination (principal); Z86.010 Personal history of colon polyps; Z87.19 Personal history of other diseases of the digestive system

== ENCOUNTER 2017-01-26 11:24 | Day surgery (SDC) | payer MEDICARE, OTHER ==
[~2017-01-26] VITALS: Ht 149.9 cm; Wt 63.5 kg
--- NOTE | 2017-01-26 11:44 | Conscious Sedation/ASA ---
Conscious Sedation Pre-Proced Time Reviewed: 11:30 ASA Class: 2 Airway Mallampati Classification: ([place] appropriate class) I. II. III, IV Lungs Heart ASA score ASA 1: a normal healthy patient ASA 2: a patient with a mild systemic disease (mid diabetes, controlled hypertension, obesity ASA 3: a patient with a severe systemic disease that limits activity (angina , COPD, prior Myocardial infarction) ASA 4: a patient with an incapacitating disease that is a constant threat to life (CHF, renal failure) ASA 5: a moribund patient not expected to survive 24 hrs. (ruptured aneurysm) ASA 6: a declared brain patient whose organs are being harvested. For emergent operations, add the letter E after the classification Grade 3 Sedation Plan: Analgesia, Amnesia, Plan communicated to team members, Discussed options with patient/fam, Discussed risks with patient/fam Note The patient is an appropriate candidate to undergo the planned procedure, sedation, and anesthesia. The patient immediately re-assessed prior to indication. SHAYNA DHILLON MD Jan 26, 2017 11:44 am
[2017-01-26] MEDS ORDERED: ONDANSETRON 4 MG/2 ML (SDV) Z0FRAN IV PRN (11:45)
[2017-01-26] MEDS ORDERED: ACETAMINOPHEN 325 MG TABLET/CAPLET (TYLENOL) PO PRN (11:45)
[2017-01-26] MEDS ORDERED: NS IV 500 ML 500 ML IV SCH (11:45)
[2017-01-26] MEDS ORDERED: NALOXONE 0.4 MG/ML 1 ML (NARCAN) VIAL IVP PRN (11:45)
[2017-01-26] MEDS ORDERED: morphine INJ 10 MG/ML 1ML (SYR OR VIAL) IV PRN (11:45)
[2017-01-26] MEDS ORDERED: HYDROcodone/APAP 5 MG/325 MG (LORTAB) TAB PO PRN (11:45)
[2017-01-26] MEDS ORDERED: FLUMAZENIL (ROMAZICON) 0.1 MG/ML 5 ML VIAL INJ PRN (11:45)
[2017-01-26] MEDS ORDERED: LIDOCAINE JELLY 2% (XYLOCAINE) 5 ML TUBE MM PRN (11:45)
--- NOTE | 2017-01-26 11:45 | Progress Note-Pre Operative ---
Pre-Operative Progress Note H&P Reviewed The H&P was reviewed, patient examined and no changes noted. Date Seen by Provider: Jan 26, 2017 Time Seen by Provider: 11:30 Date H&P Reviewed: Jan 26, 2017 Time H&P Reviewed: 11:30 Pre-Operative Diagnosis: hx colitis SHAYNA DHILLON MD Jan 26, 2017 11:44 am
[2017-01-26] MEDS ORDERED: LIDOCAINE JELLY 2% (XYLOCAINE) 5 ML TUBE ONE (11:50)
[2017-01-26] MEDS ORDERED: MIDAZOLAM 2 MG/2 ML (VERSED) VIAL ONE ×3 (11:50)
[2017-01-26] MEDS ORDERED: fentaNYL INJECTION 100 MCG/2 ML AMP ONE ×2 (11:50)
[2017-01-26] MEDS: fentaNYL INJECTION 100 MCG/2 ML AMP IVP PRN ×2 (11:52→12:00)
[2017-01-26] MEDS: MIDAZOLAM 2 MG/2 ML (VERSED) VIAL IVP PRN ×3 (11:55→12:10)
--- NOTE | 2017-01-26 12:32 | Progress Note-Post Operative ---
Post-Operative Progess Note Surgeon (s)/Customer Order Clerk (s) Surgeon SHAYNA DHILLON MD Customer Order Clerk: none Pre-Operative Diagnosis hx colitis Post-Operative Diagnosis chronic stage 2 ext and int hemorrhoids. mild sigmoid diverticulosis. no active inflammation. Procedure & Operative Findings Date of Procedure 01/26/17 Procedure Performed/Findings Colonoscopy. Anesthesia Type CS Estimated Blood Loss Estimated blood loss (mL): minimal Specimens/Packing Specimens Removed none SHAYNA DHILLON MD Jan 26, 2017 12:32 pm
--- NOTE | 2017-01-26 12:34 | Discharge Inst-Surgical ---
D/C Lap Instructions-JACQUIE Follow Up PRN Activity as tolerated High Fiber Diet 25g or more per day Avoid Alcohol, Caffeine, Spicy [place] and Acid foods. Drink 64 fluid oz or more of fluids per day. Symptoms to Report: Fever over 101 degree F, Nausea/Vomiting If any problems/questions: Contact your physician or go to Emergency Room SHAYNA DHILLON MD Jan 26, 2017 12:34 pm
[2017-01-26 12:40] VITALS: BP 144/66
[2017-01-26 13:05] VITALS: BP 118/57
[2017-01-26 13:06] VITALS: BP 143/65
[2017-01-26 13:21] VITALS: BP 143/65
--- NOTE | 2017-01-29 07:08 | PROCEDURE REPORT ---
PROCEDURE PHYSICIAN: SHAYNA ROLLINS DATE OF PROCEDURE: 01/26/2017 ATTENDING PRIMARY CARE PHYSICIAN: Dr. Ball PREOPERATIVE DIAGNOSIS: History of Clostridium difficile colitis. POSTOPERATIVE DIAGNOSES: 1. Chronic, stage II external and internal hemorrhoids. 2. Mild sigmoid diverticulosis. 3. No active colitis. PROCEDURE: Colonoscopy. SURGEON: Dr. Rollins. ANESTHESIA: Conscious sedation local stage ESTIMATED BLOOD LOSS: Minimal. FINDINGS: Chronic stage 2 ext and int hemorrhoids and no bleeding There was a mild sigmoid diverticulosis with no mucosal inflammatory changes to indicate any active diverticulitis. There was also no acute inflammatory mucosa in this region. DISPOSITION: The patient tolerated the procedure well. Ms. Riana Bloom is a 66-year-old female who presented with left lower quadrant abdominal pain and seen on 12/08/2016. She had a pacemaker placed previous and was started on antibiotics and developed diarrhea. She was then placed on another antibiotic however, she only took one and missed Metronidazole. Over time, she had worsening abdominal pain which was sharp in nature in the left lower abdominal quadrant and she was found to have colitis, as well as Clostridium difficile positivity. She was treated and did well and was discharged home. On follow-up visit, she was doing better and reported that her abdominal pain and diarrhea had resolved. Her last colonoscopy was approximately 2009. The patient was brought to the endoscopy suite, laid in left lateral decubitus position. After adequate IV pain and sedative medications and conscious sedation anesthesia, a digital rectal examination with was performed. Chronic, stage II external and internal hemorrhoids were identified which was not actively edematous or inflamed and no bleeding. Normal sphincter tone was felt and there were no palpable masses. The endoscope was then intubated into the anus and the rectum gently insufflated. The endoscope was then advanced through the valves of [place] of the rectum with no polyps or any neoplasms identified, as well as no inflammatory changes. We then proceeded through the sigmoid colon where a mild sigmoid diverticulosis identified. There were no mucosal inflammatory changes to indicate any active diverticulitis or any other colitis. The endoscope was then advanced through the remainder of the descending, transverse, and ascending colon to the cecum. These segments were normal. There were no mucosal inflammatory changes, as well as no polyps identified. The endoscope was then slowly withdrawn while taking a second look and suctioning of residual air with no additional findings. The patient tolerated the procedure. We will recommend continued medical management with a high fiber diet with at least 25 to 30 grams of fiber per day, as well as at least 64 fluid ounces of water daily to promote soft stools on a daily basis. She does not have any family history of colon cancer and her only polyp was identified was identified 2001 and of she is asymptomatic, she does not need another colonoscopy for another 10 years. Job ID: [id number] Dictated Date: 01/26/2017 12:32:21 Load Builder Date: 01/29/2017 06:54:16 / samm GAY
== END 2017-01-26 13:25 | disposition home or self-care (01) ==
LOC: ENDO 11:24
PROVIDERS: ATTEND Surgery
DX: Z09 Encounter for follow-up examination after completed treatment for conditions other than malignant neoplasm (principal); K57.30 Diverticulosis of large intestine without perforation or abscess without bleeding; K64.1 Second degree hemorrhoids; Z87.19 Personal history of other diseases of the digestive system; Z86.010 Personal history of colon polyps; I48.91 Unspecified atrial fibrillation; E78.00 Pure hypercholesterolemia, unspecified; I10 Essential (primary) hypertension; K21.9 Gastro-esophageal reflux disease without esophagitis; F41.9 Anxiety disorder, unspecified; F32.9 Major depressive disorder, single episode, unspecified; Z86.718 Personal history of other venous thrombosis and embolism; Z95.0 Presence of cardiac pacemaker; Z79.899 Other long term (current) drug therapy; Z79.01 Long term (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

== ENCOUNTER → 2017-02-21 | Day surgery (SDC) | payer MEDICARE, OTHER ==
[~2017-02-21] MED LIST changes: +FLEC100T PO; +LIDOCAINE 2% VISCOUS 15 ML UDC ONE; +LIDOCAINE 2% VISCOUS 15 ML UDC PO ONE; +MIDAZOLAM 2 MG/2 ML (VERSED) VIAL ONE; +NS IV 1000 ML 1,000 ML IV SCH; +NS IV 1000 ML 1,000 ML ONE; +fentaNYL INJECTION 100 MCG/2 ML AMP ONE; +proPOfol 200 MG/20 ML (DIPRIVAN) VIAL IV ONE
[2017-02-21 09:54] LABS: MEAN PLATELET VOLUME 9.5 FL (7.4-10.4); RED BLOOD COUNT 4.55 10^6/uL (4.35-5.85); RED CELL DISTRIBUTION WIDTH 14.9 % (10.0-14.5); WHITE BLOOD COUNT 10.3 10^3/uL (4.3-11.0)
--- NOTE | 2017-02-21 10:02 | Diagnostic Imaging Report ---
Portable erect AP chest at 9:50 AM. INDICATION: Preop electrical cardioversion. The cardiomegaly, the left-sided pacemaker, and the loop recorder device seen on the prior exam of 12/10/2016, are again evident and essentially no different. The lungs remain clear. There is still no sign of failure, pneumonia, or of a pleural effusion to suggest an acute abnormality. The mediastinum is not widened. The osseous structures are intact. IMPRESSION: Stable chest. There has been no adverse change since the prior exam. Dictated by: Dictated on workstation # [id number]
[2017-02-21 10:12] LABS: INR 2.8 (0.8-1.4)
[2017-02-21 10:24] LABS: ALANINE AMINOTRANSFERASE 15 U/L (0-55); ALBUMIN 4.6 GM/DL (3.2-4.5); ANION GAP 11 MMOL/L (5-14); ASPARTATE AMINO TRANSFERASE 20 U/L (5-34); BILIRUBIN,TOTAL 0.6 MG/DL (0.1-1.0); BLOOD UREA NITROGEN 9 MG/DL (7-18); BUN/CREATININE RATIO 12; CALCIUM 9.5 MG/DL (8.5-10.1); CARBON DIOXIDE 27 MMOL/L (21-32); CHLORIDE 103 MMOL/L (98-107); CREATININE SERUM 0.75 MG/DL (0.60-1.30); GFR ESTIMATED > 60; GLUCOSE 99 MG/DL (70-105); POTASSIUM 3.3 MMOL/L (3.6-5.0); SODIUM 141 MMOL/L (135-145); TOTAL PROTEIN 7.9 GM/DL (6.4-8.2)
--- OUTSIDE RECORDS SUMMARY | 2017-02-22 10:31 | XMS REPORT | Clinical Summary ---
Author Author [facility] Address Unknown Phone Unavailable Care Team Providers Care Manager Payer Name Role Phone PCP Unavailable Source Comments Some departments are not documenting in the electronic medical record. If you do not see the information that you expected, contact Release of Information in the Health Information Management department at [phone] for further assistance in locating additional records.[facility] Allergies Active Allergy Reactions Severity Noted Date Comments Losartan ANGIOEDEMA 10/03/2010 Amlodipine EDEMA 12/30/2010 Sulfa (Sulfonamide HIVES, RASH 06/01/2010 Antibiotics) Rosuvastatin UNKNOWN Low Current Medications Prescription Sig. Disp. Refills Start End Date Status Date escitalopram (LEXAPRO) 20 Take 10 mg by mouth at Active mg PO tabletIndications: bedtime daily. Atypical chest pain, Palpitations alprazolam (XANAX) 0.5 mg Take 0.5 mg by mouth Active PO tabletIndications: three times daily as Atypical chest pain, needed. Palpitations Cholecalciferol (Vitamin Take 1 Cap by mouth Active D3) 5,[address] unit cap daily. pantoprazole DR Take 40 mg by mouth Active (PROTONIX) 40 mg tablet daily. docusate (COLACE) 100 mg Take 100 mg by mouth Active capsule daily as needed. Diphenhydramine-Acetamino Take 1 Tab by mouth at Active phen (TYLENOL PM EXTRA bedtime as needed. STRENGTH) 25-500 mg tab tablet warfarin (COUMADIN) 5 mg TAKE ONE-HALF TO ONE 90 Tab 2 01/19/20 Active tablet TABLET BY MOUTH DAILY 16 BASED ON INR RESULTS furosemide (LASIX) 20 mg TAKE ONE TABLET BY MOUTH 135 Tab 3 12/09/20 Active tablet ON EVEN DAYS AND TWO ON 16 ODD DAYS spironolactone TAKE ONE TABLET BY MOUTH 90 Tab 3 06/16/20 Active (ALDACTONE) 25 mg tablet ONCE DAILY 16 mexiletine (MEXITIL) 200 1 Cap twice daily. 180 Cap 3 07/17/19 Active mg capsule 17 atorvastatin (LIPITOR) 40 Take 40 mg by mouth Active mg tablet daily. flecainide (TAMBOCOR) 100 Take 1 tablet by mouth 180 tablet 3 Active mg tablet twice daily. for one 17 month then decrease to 50 mg twice daily ciprofloxacin (CIPRO) 500 Take 500 mg by mouth 02/15/20 Discontin mg tablet twice daily. 17 ued diphenoxylate/atropine Take 1 Tab by mouth four 02/15/20 Discontin (LOMOTIL) 2.5/0.025 mg times daily as needed for 17 ued tablet Diarrhea. Active Problems Problem Noted Date Cardiac device in situ 02/14/2017 Overview: LINQ Cardiac pacemaker in situ 11/22/2016 Sinus node dysfunction (HCC) 11/20/2016 (HFpEF) heart failure with preserved ejection fraction [...] showed no obstructive disease. She has a [id number] score of 2--Female, HTN. Please refer to [...] the last 2-[address] Hewitt, in [place], did a CARDIAC CATH 08/2013 and her [...] Atrial fibrillation (HCC) 07/07/2014 Overview: 05/13/14: VICKIE: [facility]: EF 50% Echogenic density was noted in [...] Ventricular tachycardia (HCC) 06/15/2014 Overview: 08/20/13: Cath: [facility]: EF 60% dominant circumflex system with no [...] poorly Atrial flutter (HCC) 11/07/2010 Overview: SEI [id number]/11 CHADS2=one (HTN) Fall 2010-no flutteror AF-OK to DC Pradaxa L ast Assessment & Plan: No recurrence since ablation. 48 hour holter on 08/16/13 was negative for any atrial arrhythmias. Continues to be on daily aspirin therapy. Hyperlipidemia 09/22/2010 Last Assessment & Plan: Continues to be managed by Dr. Hewitt's office. Atypical chest pain Overview: 07/2007: [facility] @ [facility]: no significant CAD. 20% mid circ. EF-wnl. RCA-spasm during cath. 05/18/2010: [facility] @ [facility]: No obstructive CAD, normal LV size/function. EF 60% HTN (hypertension) Last Assessment & Plan: Well controlled on current therapy. Palpitations Overview: 07/2007 - Complete echocardiogram: Ejection fraction 60%. Mild left ventricular hypertrophy. Trace MR. Mild TR. 30 day event monitor showed Atrial Tach at 140-150bpm for 2-4 sec.. Toprol 25mg XL qd. 08/18/13: MPI: [facility]: EF 59%. Fair exercise tolerance. Frequent VPDs, ventricular bigeminy and ventricular couplets noted at rest and during recovery phase. Non diagnostic ECG changes with exercise. Reversible ischemia involving the whole anterior wall and anterior apex. 01/06/14: Echo: [facility]: EF 60% bradycardia in 40's for procedure. Left atrial dilatation. Moderate mitral regurgitation. Moderate tricuspid regurgitation. Estimated PAP of 40 mmHg Resolved Problems Problem Noted Date Resolved Date Cardiac pacemaker in situ 11/20/2016 11/22/2016 Encounters Date Type Specialty Care Team Description 02/21/2017 Documentation Cardiology Ellen Springer RN Records Request (from [place], [place]. (f) [phone] ) 02/21/2017 Telephone Cardiology Ellen Springer RN 02/14/2017 Office Visit Cardiology Jori Gallegos MD PVC's (3 month f/u); Device Check-Device Rep (Done today); Ventricular Tachycardia; Atrial fibrillation; Atrial Flutter 02/14/2017 Hospital Cardiology Jori Gallegos MD Canceled (Other) Encounter 02/14/2017 Ancillary Cardiology Jori Gallegos MD Sinus node dysfunction Orders (HCC) 02/12/2017 Hospital Cardiology Jori Gallegos MD Encounter 01/12/2017 Telephone Cardiology Mamie Reaves RN HRM - Abnormal Results (Remote Device - Abnormal Rhythms) (AF events) 01/08/2017 Hospital Cardiology Jori Gallegos MD Encounter 12/07/2016 Telephone Cardiology Yuliana Polo, Weight Gain ( increase of RN 5 lbs on two different scales) 12/05/2016 Hospital Cardiology Jori Gallegos MD Encounter 11/23/2016 Telephone Cardiology Yuliya Redding RN Patient Information (Pt asking for AVS to be sent to her, papers didn't get home w/her) 11/22/2016 Hospital Cardiology Jori Gallegos MD Encounter 11/22/2016 Office Visit Cardiology Jori Gallegos MD Atrial fibrillation (1 month f/u); PVC's; Hypertension; Cholesterol; Post-hospital Follow Up ([place] 11-07-16 to 11-10-16 for pacemaker) from Last 3 Months Family History Medical History Relation Name Comments Coronary Artery Disease Brother Coronary Artery Disease Brother Heart Attack Brother Arrhythmia Brother atrial flutter Coronary Artery Disease Father Heart Attack Father Stroke Mother Relation Name Status Comments Brother Alive Brother Alive Brother Brother Father MS (Age 47) Mother Social History Tobacco Use Types Packs/Day Years Used Date Never Smoker Smokeless Tobacco: Never Used Alcohol Use Drinks/Week oz/Week Comments No Sex Assigned at Date Recorded Not on file Last Filed Vital Signs Vital Sign Reading Time Taken Blood Pressure 156/86 02/14/2017 10:09 AM CDT Pulse 64 11/22/2016 10:06 AM CDT Temperature 36.5 C (97.7 F) 12/25/2015 11:03 AM CDT Respiratory Rate - - Oxygen Saturation 99% 12/25/2015 11:03 AM CDT Inhaled Oxygen - - Concentration Weight 64.4 kg (142 lb) 02/14/2017 10:09 AM CDT Height 149.9 cm (4' 11") 02/14/2017 10:09 AM CDT Body Mass Index 28.68 02/14/2017 10:09 AM CDT Plan of Treatment Health Maintenance Due Date Last Done Comments HEPATITIS C SCREENING 1952 PHYSICAL (COMPREHENSIVE) 1959 EXAM PERTUSSIS VACCINE 1963 TETANUS VACCINE 1969 CERVICAL CANCER SCREENING 1982 BREAST CANCER SCREENING 1992 COLORECTAL CANCER 2002 SCREENING SHINGLES VACCINE 2012 INFLUENZA VACCINE 03/09/2017 Results * DEVICE EVALUATION - PPM (02/14/2017 2:48 PM) Only the most recent of 2 results within the time period is included. Component Value Ref Range ILR History of Afib Yes Generator Implnat Date 11/09/16 Generator Model # [id number] Lillian FULLER MRI Device Implanted By Dr. Lluvia Hewitt @ [facility] in [place], [place] Generator Serial # [id number] EP Device Followed by Jori Gallegos MD Name ILR Symptom Duration Four 7.5min episodes ILR Tachy Rate 167 (360ms) ILR Tachy Duration 16 ILR Pause Duration off ILR Ranjeet Rate 30 (2000ms) ILR Ranjeet Duration 8 ILR AT Events Since Last 0 Interrogation ILR AT Lifetime Events as 0 of ILR Percent Time in AT/AF V sensitivity 0.025mv Duration Remote Monitor Serial# [id number] Generator Washateria Attendant Medtronic Generator Investigational No Wireless Generator No Device Type DDD-PM EP Device Followed By MAC ILR AF Rate AF only ILR AF Duration all episodes Device [place] [employer] Transmitter Compatible On AntiCoag Date 2010 Known Diagnosed AFib Yes On Anticoagulation Yes MIGUEL/EOL Indicator 2.83V Atrial Lead Washateria Attendant Medtronic Atrial Lead Model # 5076 CapSureFix Novus Atrial Lead Serial # [id number] Atrial Lead Implant Date 11/09/16 RV Lead Washateria Attendant Medtronic RV Lead Model # 4076 capsurefix RV Lead Serial # [id number] RV Lead Implant Date 11/09/16 Atrial Lead No Investigational RV Lead Investigational No Generator MRI Conditional Yes Date of Last Programming 11/22/16 Next Programming Check 02/2017 Due Device Mode AAIR<=>DDDR Lower Rate Limit 60 Upper Rate Limit 130 Sensor Rate Limit 130 Pace AV Delay 180 Sense AV Delay 150 Mode Switch (bpm) 171 High A Rate Detect >171 bpm High V Rate Detect >150 bpm Mode Switch Status On HF Patient No Date of Last Remote Check 11/18/16 Next Remote Check Due 02/22/17 Accssory Serial Number [employer] Transmitter Enrollment Date 11/10/16 Date of baseline remote 11/18/16 transmission Remote Monitoring? Yes Remote Connectivity Cellular adaptor Device Remote Manual Yes Downloads Specimen Performing Laboratory OTHER OUTSIDE LAB Narrative [address] check Check by MDT rep. Ongoing AF with some undersensing noted. Nichelle detections not ON. V rates controlled. See attached for more information. Remote in place. Same day OV with Dr Gallegos. Report to him. * DEVICE EVALUATION - REMOTE ILR (02/12/2017 3:11 PM) Only the most recent of 3 results within the time period is included. Component Value Ref Range ILR History of Afib Yes Generator Implnat Date 11/09/16 Generator Model # [id number] Derejea MRI Device Implanted By Dr. Lluvia Hewitt @ [facility] in [place], [place] Generator Serial # [id number] EP Device Followed by Jori Gallegos MD Name ILR Symptom Duration Four 7.5min episodes ILR Tachy Rate 167 (360ms) ILR Tachy Duration 16 ILR Pause Duration off ILR Ranjeet Rate 30 (2000ms) ILR Ranjeet Duration 8 ILR AT Events Since Last 0 Interrogation ILR AT Lifetime Events as 0 of ILR Percent Time in AT/AF V sensitivity 0.025mv Duration Remote Monitor Serial# [id number] Generator Washateria Attendant Medtronic Generator Investigational No Wireless Generator No Device Type DDD-PM EP Device Followed By MAC ILR AF Rate AF only ILR AF Duration all episodes Device [place] [employer] Express Transmitter Compatible On AntiCoag Date 2010 Known Diagnosed AFib Yes On Anticoagulation Yes MIGUEL/EOL Indicator 2.83V Atrial Lead Washateria Attendant Medtronic Atrial Lead Model # 5076 CapSureFix Novus Atrial Lead Serial # [id number] Atrial Lead Implant Date 11/09/16 RV Lead Washateria Attendant Medtronic RV Lead Model # 4076 capsurefix RV Lead Serial # [id number] RV Lead Implant Date 11/09/16 Atrial Lead No Investigational RV Lead Investigational No Generator MRI Conditional Yes Date of Last Programming 11/22/16 Next Programming Check 02/2017 Due Device Mode AAIR<=>DDDR Lower Rate Limit 60 Upper Rate Limit 130 Sensor Rate Limit 130 Pace AV Delay 180 Sense AV Delay 150 Mode Switch (bpm) 171 High A Rate Detect >171 bpm High V Rate Detect >150 bpm Mode Switch Status On HF Patient No Date of Last Remote Check 11/18/16 Next Remote Check Due 02/22/17 Accssory Serial Number [employer] Transmitter Enrollment Date 11/10/16 Date of baseline remote 11/18/16 transmission Remote Monitoring? Yes Remote Connectivity Cellular adaptor Device Remote Manual Yes Downloads Generator Location Left ILR Current Monitoring 02/12/17-03/15/17 Period ILR Date of Last Daily 02/07/17 Connection ILR Battery Status OK ILR Symptom Events Since 0 Last Interrogation ILR Symptom Lifetime 1 Events as of ILR Tachy Events Since 0 Last Interrogation ILR Tachy Lifetime Events 0 as of ILR Pause Events Since 0 Last Interrogation ILR Pause Lifetime Events 51 as of ILR Ranjeet Events Since 122 Last Interrogation ILR Ranjeet Lifetime Events 3303 as of ILR AF Events Since Last 279 Interrogation ILR AF Lifetime Events as 2108 of ILR Percent Time in AT/AF 0 Events Since Last Interrogation ILR Percent Time in AT/AF 2.1% Lifetime of Events as of ILR Presenting ECG Strip 02/07/17 @ 0004 SR 60 bpm ILR Lifetime Events as of 02/07/17 Datetion Specimen Performing Laboratory OTHER OUTSIDE LAB Narrative [02/12/2017 3:14:33 PM - CEE PEÑA] Summary report received and reviewed. No new events to report, will continue to monitor. Routed to Dr. Gallegos for review/cosign. * ECG/QRS (11/22/2016) Component Value Ref Range QRS DURATION 86 Specimen Performing Laboratory OTHER OUTSIDE LAB from Last 3 Months
--- OUTSIDE RECORDS SUMMARY | 2017-02-22 10:31 | XMS REPORT | Encounter Summary ---
Author Author [facility] Organization [facility] Address Unknown Phone Unavailable Care Team Providers Care Certified Nurses Aide Name Role Phone PCP Unavailable Reason for Visit * Reason Comments HRM - Abnormal Results AF events (Remote Device - Abnormal Rhythms) Encounter Details Date Type Department Care Team Description 01/12/2017 Telephone [facility] Cardiology Mamie Reaves RN HRM - Abnormal Results [address] (Remote Device - Abnormal [address] Rhythms) (AF events) [place] [address] Social History Tobacco Use Types Packs/Day Years Used Date Never Smoker Smokeless Tobacco: Never Used Alcohol Use Drinks/Week oz/Week Comments No Sex Assigned at Date Recorded Not on file as of this encounter Functional Status Functional Status Response Date of Assessment Does the patient have a hearing impairment: Yes 12/24/2015 Does the patient have a visual impairment: No 07/08/2014 Does the patient have impaired ambulation: No 07/08/2014 Does the patient have an activity of daily living No 07/08/2014 (ADL) impairment: Does the patient have an instrumental activity of No 07/08/2014 daily living (IADL) impairment: Cognitive Status Response Date of Assessment Does the patient have a cognitive impairment: No 07/08/2014 as of this encounter Plan of Treatment Not on fileas of this encounter Visit Diagnoses Not on filein this encounter
--- OUTSIDE RECORDS SUMMARY | 2017-02-22 10:31 | XMS REPORT | Encounter Summary ---
Author Author [facility] Organization [facility] Address Unknown Phone Unavailable Care Team Providers Care Cost Report Clerk Name Role Phone PCP Unavailable Encounter Details Date Type Department Care Team Description 02/14/2017 [facility] Cardiology Jori Gallegos MD Canceled (Other) Encounter [address] [place] [address] [place] [address] [phone] Social History Tobacco Use Types Packs/Day Years [...] impairment: No 07/08/2014 as of this encounter Medications at Time of Discharge Medication Sig. Disp. Refills Start Date End Date alprazolam (XANAX) 0.5 mg Take 0.5 mg by mouth PO tabletIndications: three times daily as Atypical chest pain, needed. Palpitations atorvastatin (LIPITOR) 40 Take 40 mg by mouth mg tablet daily. Cholecalciferol (Vitamin Take 1 Cap by mouth D3) 5,000 unit cap daily. Diphenhydramine-Acetamino Take 1 Tab by mouth at phen (TYLENOL PM EXTRA bedtime as needed. STRENGTH) 25-500 mg tab tablet docusate (COLACE) 100 mg Take 100 mg by mouth capsule daily as needed. escitalopram (LEXAPRO) 20 Take 10 mg by mouth at mg PO tabletIndications: bedtime daily. Atypical chest pain, Palpitations flecainide (TAMBOCOR) 100 Take 1 tablet by mouth 180 tablet 3 2016 mg tablet twice daily. for one month then decrease to 50 mg twice daily furosemide (LASIX) 20 mg TAKE ONE TABLET BY MOUTH 135 Tab 3 2015 tablet ON EVEN DAYS AND TWO ON ODD DAYS mexiletine (MEXITIL) 200 1 Cap twice daily. 180 Cap 3 07/17/[address] Take 40 mg by mouth (PROTONIX) 40 mg tablet daily. spironolactone TAKE ONE TABLET BY MOUTH 90 Tab 3 06/16/2016 (ALDACTONE) 25 mg tablet ONCE DAILY warfarin (COUMADIN) 5 mg TAKE ONE-HALF TO ONE 90 Tab 2 01/19/2016 tablet TABLET BY MOUTH DAILY BASED ON INR RESULTS as of this encounter Plan of Treatment Not on fileas of this encounter Results * DEVICE EVALUATION - PPM (02/14/2017 2:48 PM) Component Value Ref Range ILR History of Afib Yes Generator Implnat Date 11/09/16 Generator Model # [id number] Lillian FULLER MRI Device Implanted By Dr. Lluvia Hewitt @ [facility] in [place], [place] Generator Serial # [id number] EP Device Followed by Jori Gallegos MD Name ILR Symptom Duration Four 7.5min episodes ILR Tachy Rate 167 (360ms) ILR Tachy Duration 16 ILR Pause Duration off ILR Ranjeet Rate 30 (2000ms) ILR Ranjeet Duration 8 ILR AT Events Since Last 0 Interrogation ILR AT Lifetime Events as 0 of ILR Percent Time in AT/AF V sensitivity 0.025mv Duration Remote Monitor Serial# [id number] Generator Correction Officer Medtronic Generator Investigational No Wireless Generator No Device Type DDD-PM EP Device Followed By MAC ILR AF Rate AF only ILR AF Duration all episodes Device [place] [employer] Express Transmitter Compatible On AntiCoag Date 2010 Known Diagnosed AFib Yes On Anticoagulation Yes MIGUEL/EOL Indicator 2.83V Atrial Lead Correction Officer Ultromex Atrial Lead Model # 5076 CapSureFix Novus Atrial Lead Serial # [id number] Atrial Lead Implant Date 11/09/16 RV Lead Correction Officer Medtronic RV Lead Model # 4076 capsurefix RV Lead Serial # [id number] RV Lead Implant Date 11/09/16 Atrial Lead [...] OV with Dr Gallegos. Report to him. in this encounter Visit Diagnoses Diagnosis Cardiac pacemaker in situ Paroxysmal atrial fibrillation (HCC) Atrial fibrillation Sinus node dysfunction (HCC) Sinoatrial node dysfunction in this encounter
--- OUTSIDE RECORDS SUMMARY | 2017-02-22 10:31 | XMS REPORT | Encounter Summary ---
Author Author [facility] Organization [facility] Address Unknown Phone Unavailable Care Team Providers Care Artificial Plastic Eye Maker Name Role Phone PCP Unavailable Encounter Details Date Type Department Care Team Description 02/12/2017 [facility] Cardiology Jori Gallegos MD Encounter Remote Device Check [address] [facility] [phone] [address] [place], [place] [id number] Social History Tobacco Use Types Packs/Day Years [...] tabletIndications: bedtime daily. Atypical chest pain, Palpitations furosemide (LASIX) 20 mg TAKE ONE TABLET [...] BY MOUTH DAILY BASED ON INR RESULTS ciprofloxacin (CIPRO) 500 Take 500 mg by mouth 02/14/2017 mg tablet twice daily. diphenoxylate/atropine Take 1 Tab by mouth four 02/14/2017 (LOMOTIL) 2.5/0.025 mg times daily as needed for tablet Diarrhea. as of this encounter Plan of Treatment Not on fileas of this encounter Results * DEVICE EVALUATION - REMOTE ILR (02/12/2017 3:11 PM) Component Value Ref Range ILR History of Afib Yes Generator Implnat Date 11/09/16 Generator Model # [id number] Lillian FULLER MRI Device Implanted By Dr. Lluvia Hewitt @ [facility] in [place], [place] Generator Serial # [id number] EP Device Followed by Jori Gallegos MD Name ILR Symptom Duration Four 7.5min episodes ILR Tachy Rate 167 (360ms) ILR Tachy Duration 16 ILR Pause Duration off ILR Ranjeet Rate 30 (2000ms) ILR Ranjeet Duration 8 ILR AT Events Since Last 0 Interrogation ILR AT Lifetime Events as 0 of ILR Percent Time in AT/AF V sensitivity 0.025mv Duration Remote Monitor Serial# [id number] Generator Continuing [employer] Dean Medtronic Generator Investigational No Wireless Generator No Device Type DDD-PM EP Device Followed By MAC ILR AF Rate AF only ILR AF Duration all episodes Device [place] [employer] Express Transmitter Compatible On AntiCoag Date 2010 Known Diagnosed AFib Yes On Anticoagulation Yes MIGUEL/EOL Indicator 2.83V Atrial Lead [employer] Dean Medtronic Atrial Lead Model # 5076 CapSureFix Novus Atrial Lead Serial # [id number] Atrial Lead Implant Date 11/09/16 RV Lead Contin[employer] Dean Medtronic RV Lead Model # 4076 capsurefix RV Lead Serial # [id number] RV Lead Implant Date 11/09/16 Atrial Lead [...] monitor. Routed to Dr. Gallegos for review/cosign. in this encounter Visit Diagnoses Diagnosis Palpitations Cardiac device in situ Unspecified cardiac device in situ in this encounter
--- OUTSIDE RECORDS SUMMARY | 2017-02-22 10:31 | XMS REPORT | Encounter Summary ---
Author Author [facility] Organization [facility] Address Unknown Phone Unavailable Care Team Providers Care Dispatcher Motor Vehicle Name Role Phone PCP Unavailable Reason for Visit * Reason Comments PVC's 3 month f/u Device Check-Device Rep Done today Ventricular Tachycardia Atrial fibrillation Atrial Flutter Encounter Details Date Type Department Care Team Description 02/14/2017 Office Visit [facility] Cardiology Jori Gallegos MD PVC 's (3 month f/u); [address] Device Check-Device Rep [address] (Done today); [place] [address] [place] [address] Tachycardia; Atrial [phone] fibrillation; Atrial Flutter Social History Tobacco Use Types Packs/Day Years Used Date Never Smoker Smokeless Tobacco: Never Used Alcohol Use Drinks/Week oz/Week Comments No Sex Assigned at Date Recorded Not on file as of this encounter Last Filed Vital Signs Vital Sign Reading Time Taken Blood Pressure 156/86 02/14/2017 10:09 AM CDT Pulse - - Temperature - - Respiratory Rate - - Oxygen Saturation - - Inhaled Oxygen - - Concentration Weight 64.4 kg (142 lb) 02/14/2017 10:09 AM CDT Height 149.9 cm (4' 11") 02/14/2017 10:09 AM CDT Body Mass Index 28.68 02/14/2017 10:09 AM CDT in this encounter Functional Status Functional Status Response [...] impairment: No 07/08/2014 as of this encounter Instructions * Patient Instructions - Jennifer Spivey RN - 02/14/2017 10:00 AM CDT Plan for Transesophageal Echocardiogram and Cardioversion with Dr Valdes Start Flecainide 100 mg twice daily in ONE MONTH decrease to Flecainide 50 mg twice daily follow up with Dr Gallegos in 3 month with device x 2 checks in this encounter Progress Notes * Jori Gallegos MD - 02/14/2017 10:00 AM CDT Formatting of this note may be different from the original. Date of Service: 02/14/2017 Riana Bloom is a 66 y.o. female. HPI I had the pleasure of seeing your patient Riana Bloom in the [facility] as a part of the [facility] [place] office today for follow up regarding her Recurrent Atrial Arrhythmias and Permanent Pacemaker. Her Primary Ebd Special Education Teacher is my friend and colleague, Dr. Hewitt. Ms. Bloom is an exceptionally pleasant 66 y.o. Female, who is accompanied by her equally pleasant aunt that she "wants to keep up with." With permission, Ms. Bloom's brother is Zay Call. The past medical history and data below has been reviewed and updated by me with new events for today's visit. 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 Hewitt); Prior Sxic First-Degree AV Wenckebach Block at Slow Rates when on Flecainide; Longstanding Ventricular Ectopy; Normal Coronary Arteries (08/2013, Dr. Hewitt); Normal Systolic LV Function; Left Ventricular Diastolic Dysfunction by Echo; Hypertension; MY; Hyperlipidemia; and Negative Carotid Duplex (03/2014, Dr. Hewitt). NOTE: Her P-WAVES on an ECG, EVEN IF IN NSR, ARE VERY DIFFICULT TO SEE. ALSO WHEN SHE HAS HAD RECURRENT ATYPICAL AFL, THE ONLY PLACE THE FLUTTER WAVES ARE WELL VISUALIZED IS IN V1. She has a [id number] score of 2: Female, HTN. Regarding her AFIB/AFL and PVCs: Please see Problem List and Prior OV notes including 12/17/15, 02/01/15, and 08/2015 and Initial Consultation note for greater detail. However, briefly: ~ 2009: AFL Initially Dx'ed. -- 06/09/10: Initial EP Consultation. -- 2010: Recurrent AFL refractory to Flecainide -- 11/07/10: Successful AFL CTI RFA -- 08/2013: Sxs of TAYLOR/Frequent VPDs -- 08/2013: Cardiac Cath (Dr. Hewitt): Normal Jeanna. LVEDP 19 mmHg. -- 03/2014: Dr. Hewitt OV: Recurrent AFIB --> Initiated Eliquis and referred for EP Consultation. -- 04/21/14: EP Consultation: Initiated Flecainide 50 mg BID. Remained on Verapamil 180 mg. -- 07/07/14: AFIB RFA. Prior CTI Ablation intact. -- 11/04/14-12/07/14: ELR: Exceptionally difficult to interpret since she has tiny/not visible P-waves even when in sinus rhythm. Majority of Sxs with sinus rhythm/sinus arrhythmia/isolated PVCs-- however, 3 transmissions with ?AFIB. -- 01/2015: Holter (48-hr): P-waves still unclear, but we did not suspect any AFIB. -- 01/2015: Sxs of fatigue on exertion --> Due to Wenckebach Block (ETT 02/01/15 ) --> DC'ed Flecainide. -- 03/2015: Initiated Mexiletine 200 mg BID for Palpitations, Frequent VPDs/ PVCs. -- 05/31/15: Increased Mexiletine to 200 mg TID for Sxs of exertional fatigue. -- 05/31/15: Exercise Treadmill Test: At rest, she had PVCs, which went away with exercise. She did NOT have significant Wenckebach Block. -- 08/2015: ?Intolerance to Mexiletine --> Sxs resolved after taking it with food. -- 12/17/15: Persistent AFL at a CL of 220 ms --> 12/24/15: Successful CVRT of AFIB to NSR --> Initiated Tikosyn 250 mcg daily. -- 12/2015: VICKIE: LVEF 55%, LA severely enlarged, NO RHEA clot. -- 02/04/16: [employer]att LinQ Implantable Looping Monitor Implanted by Dr. Hewitt to help track/document recurrent arrhythmias. -- 09/2016: Recurrent AFL Documented on ECG via Dr. Hewitt's office. -- 09/25/16: After extensive discussion about options, we decided to proceed with CVRT to NSR with continuation of Tikosyn. I asked her to pay special attention to how she feels in sinus rhythm vs in AFIB. -- 10/04/16: VICKIE-guided CVRT to NSR. VICKIE showed LVEF 60%. Normal LA Dimension. Mild MR. No LA Clot. -- : Follow-up ECG: Documented ATACH/Atypical AFL. Dr. Hewitt contacted our office-- after extensive discussion, we all elected to stop Tikosyn. To determine whether accepting her AFIB as permanent was a viable option, we planned to more clearly assess her Sxs in AFIB, correlate with V-rate , etc. -- 10/24/16: Holter (48-hr): Predominant rhythm was a slow Atypical AFL at a CL of ~320 ms. Mean V-rate 60 bpm, Range 33-124 bpm. Total 2,614 PVCs, including 6 beats of NSVT (1.5% PVC [place]). Numerous Sx-events correlated with her Atypical AFL/ATACH with very slow V-response rate, at times in the 30s-low- 40s bpm range. In fact, there were times that she had a competing ventricular escape rhythm. There were pauses, up to 4.2 seconds in duration, which was actually just a prolonged R-R interval. I spoke with her Primary Ebd Special Education Teacher, Dr. Lluvia Hewitt, about these results-- it was recommended she present to the hospital for likely permanent pacemaker implantation. 11/09/16: Underwent Permanent Pacemaker Implantation by Dr. Hewitt's in [place], [place]. She has been in Persistent AFIB since early-10/2016-- she remained off Flecainide. She has remained on Mexiletine for control of her ventricular ectopy. NOTE: Dr. Hewitt left her Medtronic Reveal LinQ Implantable Looping Monitor device in place to capture any symptomatic events. --11/22/16: OV with Dr. Gallegos--> for symptoms of postural lightheadedness I decreased her Lasix from 40 mg daily down to 20 mg alternating with 40 mg every other day. We discussed whether we would pursue religious of sinus rhythm or except her atrial arrhythmias is permanent. She wished to see how she felt over the next few months and make an incision in follow-up. She STATES overall she has been doing well. She has been exercising more but not as much as she "should." She denies significant symptoms with exercise. She is unaware of any palpitations. She denies any shortness of breath. She states her lightheadedness is essentially resolved since the change in her Lasix. She denies any peripheral edema despite the decrease in Lasix. She states her blood pressure at home of been in the 134/60 mmHg range. She has not had any bleeding issues on anticoagulation. She claims compliance with her CPAP Tx. She denies any chest discomfort, shortness of breath, palpitations, syncope, PND or orthopnea. FHx, SHx and ROS documented and I have reviewed, with some pertinent features to include: No FHx of premature CAD. She is a Non-Smoker. Most pertinent ROS is included/discussed throughout the note, e.g. HPI and A/P. ASSESSMENT AND PLAN: -- Prior Lightheadedness -- Currently Persistent Atrial Tachycardia -- Hx of AFIB/Atypical AFL: -- Prior Slow V-Rates with Atypical AFL-- Pauses > 4 sec -- Medtronic DDDR Permanent Pacemaker -- Medtronic Reveal LinQ Implantable Looping Monitor -- Anticoagulation -- PVCs -- Prior HFpEF. -- Hypertension -- Hyperlipidemia: -- Obstructive Sleep Apnea PLAN: We had a very lengthy discussion, approximately 45 minutes of her 60-minute office visit, regarding her atrial tachycardia that is currently persistent and has been so for the last few months/atypical atrial flutter. We discussed that since she is clinically doing well, accepting it as permanent. We also discussed the option of restoring sinus rhythm. We discussed that if we accept her current rhythm as permanent, the idea of trying to convert her down the road years from now would not be a viable option, given the changes that would occur in the atrium that would make maintaining sinus rhythm later more difficult, i.e., accepting permanent atrial arrhythmias that have been present for years caused remodeling that would make maintaining sinus rhythm problematic in the future. However, I did inform her that maintenance of sinus rhythm would not necessarily improve her mortality in any way. It also likely would not make her feel better, since she clinically seems to be doing exceptionally well. Despite this, she wishes to try and restore and maintain sinus rhythm. To that end, since her anticoagulation has been held for a recent colonoscopy, I have recommended that she undergo VICKIE cardioversion followed by the initiation of flecainide at 100 mg b.i.d. She will continue that dosing for one month. After one month, she will decrease the dose to 50 mg b.i.d. She inquired whether she could do this locally in [place] with Dr. Hewitt. I told her I would contact him, and encouraged her to do the same to make that happen. Otherwise, we are happy to do it here at [facility]the [facility]. I am cautiously optimistic at best that she will maintain sinus rhythm on flecainide. In the past we had tried flecainide, and it was reasonably effective, but we had to stop it, since it was causing symptomatic Wenckebach. Obviously, that will not be an issue now that she has a pacemaker. Also, regarding her pacemaker, her rate responsive feature was turned on. Looking at her heart rate histogram, I am not sure that is really needed. Furthermore, it is resulting in 43% ventricular pacing. Therefore, we turned the rate responsive feature off. I have informed her if she gets increasingly short of breath to contact our office, in particular dyspnea on exertion or decreased exercise tolerance. At that point she will present to Dr. Valdes's office to have the feature of rate responsiveness turned back on, i.e., DDD back to DDDR. I have also turned the feature of Nichelle on, which is ATP therapy in the atrium , which may be effective at helping maintain sinus rhythm since that is our plan , at least at this point. I have also changed her LINQ detection to include atrial arrhythmias. I have also decreased her atrial tach detect down to 160 bpm. Previously, it was at 171. Her tachycardia is at approximately 172 bpm, and therefore I want to make sure it does not under-sense true events. Regarding her lightheadedness, she has dramatically improved since I have reduced her Lasix. She has not had significant recurrent events. The flecainide with mexiletine will also help her PVCs, which she is not having significant symptoms from. She has no symptoms of heart failure and is clinically doing well. Her blood pressure is elevated today. She states, however, at home it runs in the 134/60 mmHg range. She states she is also compliant with her CPAP. (DOC:[id number]) ADDENDUM: We will actually wait to determine Nichelle feature on until follow- up. In particular since she has not been therapeutically anticoagulated we do not want Nichelle potentially converting her rhythm back to sinus. ALSOwe have decreased her atrial tachycardia detection down to 160 bpm to her pacemaker. Ms. Bloom was educated regarding plan of care. She was instructed to call our office with any questions or concerns, as well as to notify us of any new or worsening symptoms. She verbalized understanding. I appreciate the opportunity to participate in the care of your patient. Please do not hesitate to contact me directly if you have any questions or further insights into her care. I have scheduled her follow-up with me in 3 month(s). Vitals: 02/14/17 1009 BP: 156/86 Weight: 64.4 kg (142 lb) Height: 1.499 m (4' 11") Body mass index is 28.68 kg/(m^2). Past Medical History Patient Active Problem List Diagnosis Date Noted Cardiac device in situ 02/14/2017 LINQ Cardiac pacemaker in situ 11/22/2016 Sinus node dysfunction (HCC) 11/20/2016 (HFpEF) heart failure with preserved ejection fraction (HCC) 12/22/2015 History of medical problems 05/31/2015 Her PMHx briefly includes: Persistent AFIB-Onset 03/2014 S/P AFIB RFA 07/07/14 , Prior AFL S/P AFL RFA 2010 with Conduction Block still present at AFIB RFA 2013, Symptomatic First Degree A-V Wenckebach Block at slow rates when on Flecainide, Longstanding Ventricular Ectopy, Normal Coronary Arteries by Dr. Hewitt 08/2013, Normal Systolic LV Function, Left Ventricular Diastolic Dysfunction by echo, HTN, OSAS, Hyperlipidemia, and First Degree AV Block. She had a Carotid Duplex done by Dr. Hewitt 03/2014 and showed no obstructive disease. She has a [id number] score of 2--Female, HTN. Please refer to [...] the last 2-[address] Hewitt, in [place], did a CARDIAC CATH 08/2013 and her [...] in sinus rhythm. Atrial fibrillation (HCC) 07/07/2014 05/13/14: VICKIE: [facility]: EF 50% Echogenic density was noted [...] Normal ventricular function. Normal His-Purkinje system function. 01/06: Echo: EF 60%. Moderate MR, Moderate TR, [...] 12/24/15 - Cardioversion Ventricular tachycardia (HCC) 06/15/2014 08/20/13: Cath: [facility]: EF 60% dominant circumflex system with no obstructive disease in the coronary system Dyspnea 08/21/2013 PVC's (premature ventricular contractions) 06/05/2011 Sleep apnea 06/05/2011 CPAP First degree AV block 06/05/2011 Some blocked APCs and Wenchebach on AVN meds- tolerates diltiazem and metoprolol poorly Atrial flutter (HCC) 11/07/2010 SEI [id number] CHADS2=one (HTN) Fall 2010-no flutteror AF-OK to DC Pradaxa Hyperlipidemia 09/22/2010 Atypical chest pain 07/2007: [facility] @ [facility]: no significant CAD. 20% mid circ. EF-wnl. RCA -spasm during cath. 05/18/2010: [facility] @ [facility]: No obstructive CAD, normal LV size/ function. EF 60% HTN (hypertension) Palpitations 07/2007 - Complete echocardiogram: Ejection fraction 60%. Mild left ventricular hypertrophy. Trace MR. Mild TR. 30 day event monitor showed Atrial Tach at 140-150bpm for 2-4 sec.. Toprol 25mg XL qd. 08/18/13: MPI: [facility]: EF 59%. Fair exercise tolerance. Frequent VPDs, ventricular bigeminy and ventricular couplets noted at rest and during recovery phase. Non diagnostic ECG changes with exercise. Reversible ischemia involving the whole anterior wall and anterior apex. 01/06/14: Echo: [facility]: EF 60% bradycardia in 40's for procedure. Left atrial dilatation. Moderate mitral regurgitation. Moderate tricuspid regurgitation. Estimated PAP of 40 mmHg Review of Systems Constitution: Negative. HENT: Negative. Eyes: Negative. Cardiovascular: Negative. Respiratory: Negative. Endocrine: Negative. Hematologic/Lymphatic: Negative. Skin: Negative. Musculoskeletal: Negative. Gastrointestinal: Negative. Genitourinary: Negative. Neurological: Negative. Psychiatric/Behavioral: Negative. Allergic/Immunologic: Negative. Physical Exam Constitutional: She is in no acute distress, resting comfortably. Skin/Integument: Warm and dry. Eyes: PERRL, sclera are non-icteric and no xanthelasmas noted. ENT: Hearing is intact, Oropharynx is clear and moist. Heme/Lym/Immun: Supple neck, without thyromegaly. Respiratory-Pulmonary/Chest: Effort normal and breath sounds normal. No respiratory distress or accessory muscle use. No obvious tracheal deviation. Clear to auscultation bilaterally. Cardiovascular: No evidence of increased jugular venous pressure, carotids are 2+/4+ equal bilaterally, without obvious bruit. Irregularly irregular rhythm, S1, S2. I do not appreciate any significant murmur today. No heaves, thrills or rubs. Musc/Skeletal-Extremities: Without significant peripheral edema. With what appears to be full ROM. Device Sites: Is in her left infraclavicular region and well-healed. And Medtronic Reveal LinQ Implantable Looping Monitor device site is well healed. Neuro: Patient is alert and oriented to person, place, and time. Psych: Patient does not appear anxious, she appears appropriate, with normal non-pressured speech and what appears to be appropriate judgement Cardiovascular Studies ECG today documents are underlying atrial tachycardia with very small visible P waves with a cycle length in the 340 ms range but slightly variable but mostly intrinsic conduction but an occasional V paced beats. Full device checkS performed with reprogramming which I have extensively reviewed. Changes, if done, as discussed below and is detailed in other dictation/note. Her pacemaker check demonstrates that she is ventricular pacing 43.9%; underlying rhythm is her atrial tachycardia with variable AV block and an average V rate of 60-80 bpm her atrial tachycardia detection is currently separate to be greater than 170 bpm. Dating back to her visit in November, she has essentially been in persistent atrial tachycardia. The device occasionally under senses and therefore think she has been "in and out" but it still gives an A. fib burden of 99.8% and therefore it is not significantly under sensing obviously. Her average ventricular rate in her atrial arrhythmia is very well controlled. Device is functioning well. She has not had significant high ventricular rate events Medtronic LinQ Implantable Monitor Device Check: Initial report is 234 bradycardia events however this dates back to prior to her pacemaker specifically November 08. There are 860 AF events. There is clearly some undersensing of her atrial tachycardia through her Linq. There is no symptom activated events. Problems Addressed Today Encounter Diagnoses Name Primary? Typical atrial flutter (HCC) Yes Paroxysmal atrial fibrillation (HCC) Cardiac pacemaker in situ Cardiac device in situ Current Medications (including today's revisions) alprazolam (XANAX) 0.5 mg PO tablet Take 0.5 mg by mouth three times daily as needed. atorvastatin (LIPITOR) 40 mg tablet Take 40 mg by mouth daily. Cholecalciferol (Vitamin D3) 5,000 unit cap Take 1 Cap by mouth daily. Diphenhydramine-Acetaminophen (TYLENOL PM EXTRA STRENGTH) 25-500 mg tab tablet Take 1 Tab by mouth at bedtime as needed. docusate (COLACE) 100 mg capsule Take 100 mg by mouth daily as needed. escitalopram (LEXAPRO) 20 mg PO tablet Take 10 mg by mouth at bedtime daily. flecainide (TAMBOCOR) 100 mg tablet Take 1 tablet by mouth twice daily. for one month then decrease to 50 mg twice daily furosemide (LASIX) 20 mg tablet TAKE ONE TABLET BY MOUTH ON EVEN DAYS AND TWO ON ODD DAYS mexiletine (MEXITIL) 200 mg capsule 1 Cap twice daily. pantoprazole DR (PROTONIX) 40 mg tablet Take 40 mg by mouth daily. spironolactone (ALDACTONE) 25 mg tablet TAKE ONE TABLET BY MOUTH ONCE DAILY warfarin (COUMADIN) 5 mg tablet TAKE ONE-HALF TO ONE TABLET BY MOUTH DAILY BASED ON INR RESULTS in this encounter Plan of Treatment Name Priority Associated Diagnoses Order Schedule ECG 12-LEAD Routine Typical atrial flutter Ordered: 02/14/2017 (HCC) Paroxysmal atrial fibrillation (HCC) Cardiac pacemaker in situ Cardiac device in situ as of this encounter Visit Diagnoses Diagnosis Typical atrial flutter (HCC) - Primary Atrial flutter Paroxysmal atrial fibrillation (HCC) Atrial fibrillation Cardiac pacemaker in situ Cardiac device in situ Unspecified cardiac device in situ in this encounter
--- OUTSIDE RECORDS SUMMARY | 2017-02-22 10:31 | XMS REPORT | Encounter Summary ---
Author Author [facility] Organization [facility] Address Unknown Phone Unavailable Care Team Providers Care Correctional Captain Name Role Phone PCP Unavailable Encounter Details Date Type Department Care Team Description 02/14/2017 Ancillary [facility] Cardiology Jori Gallegos MD Sinus node dysfunction Orders [address] (HCC) [address] [place] [address] [place] [address] [phone] Social History Tobacco Use Types Packs/Day Years [...] Device Implanted By Dr. Lluvia Hewitt @ [facility] in [place], [place] Generator Serial # [id number] EP Device Followed by Jori Gallegos MD Name ILR Symptom Duration Four 7.5min episodes ILR Tachy Rate 167 (360ms) ILR Tachy Duration 16 ILR Pause Duration off ILR Ranjeet Rate 30 (2000ms) ILR Ranjeet Duration 8 ILR AT Events Since Last 0 Interrogation ILR AT Lifetime Events as 0 of ILR Percent Time in AT/AF V sensitivity 0.025mv Duration Remote Monitor Serial# [id number] Generator Safety Person Medtronic Generator Investigational No Wireless Generator No Device Type DDD-PM EP Device Followed By MAC ILR AF Rate AF only ILR AF Duration all episodes Device [place] [employer] Transmitter Compatible On AntiCoag Date 2010 Known Diagnosed AFib Yes On Anticoagulation Yes MIGUEL/EOL Indicator 2.83V Atrial Lead Safety Person Medtronic Atrial Lead Model # 5076 CapSureFix Novus Atrial Lead Serial # [id number] Atrial Lead Implant Date 11/09/16 RV Lead Safety Person Medtronic RV Lead Model # 4076 capsurefix RV Lead Serial # [id number] RV Lead Implant Date 11/09/16 Atrial Lead [...] him. in this encounter Visit Diagnoses Diagnosis Sinus node dysfunction (HCC) Sinoatrial node dysfunction in this encounter
--- OUTSIDE RECORDS SUMMARY | 2017-02-22 10:32 | XMS REPORT | Encounter Summary ---
Author Author [facility] Organization [facility] Address Unknown Phone Unavailable Care Team Providers Care Medical Education Specialist Name Role Phone PCP Unavailable Encounter Details Date Type Department Care Team Description 12/05/2016 [facility] Cardiology Jori Gallegos MD Encounter Remote Device Check [address] [facility] [phone] [address] [place], [place] [id number] Social History Tobacco Use Types Packs/Day Years [...] Results * DEVICE EVALUATION - REMOTE ILR (12/07/2016 9:48 AM) Component Value Ref Range Permanent Comments Permanent Comments 2 ILR History of Afib Yes ILR Date AF Diagnosed Generator Implnat Date 11/09/16 Generator Model # [id number] Lillian FULLER MRI Device Implanted By Dr. Lluvia Hewitt @ [facility] in [place], [place] Generator Serial # [id number] EP Device Followed by Jori Gallegos MD Name Device [place] Transmitter ILR Symptom Duration Four 7.5min episodes ILR Tachy Rate 167 (360ms) ILR Tachy Duration 16 ILR Pause Duration off ILR Ranjeet Rate 30 (2000ms) ILR Ranjeet Duration 8 ILR AT Events Since Last 0 Interrogation ILR AT Lifetime Events as 0 of ILR AT Rate ILR AT Duration ILR Percent Time in AT/AF V sensitivity 0.025mv Duration Generator Division Sergeant Other Remote Monitor Serial# [id number] Research Comments Research Comments 2 Generator Division Sergeant Medtronic Generator Investigational No Wireless Generator No Device Type DDD-PM EP Device Followed By MAC ILR AF Rate AF only ILR AF Duration all episodes Device [place] Carelink Express Transmitter Compatible On AntiCoag Date 2010 Known Diagnosed AFib Yes On Anticoagulation Yes ATP Date Device Shock Date Advisory Info Advisory Info 2 Permanent Comments 3 Permanent Comments 4 Permanent Comments 5 Permanent Comments 6 Permanent Comments 7 Phone Check Next Due MIGUEL/EOL Indicator 2.83V Atrial Lead Division Sergeant Medtronic Atrial Lead Division Sergeant Other Atrial Lead Model # 5076 CapSureFix Novus Atrial Lead Serial # [id number] Atrial Lead Implant Date 11/09/16 RV Lead Division Sergeant Medtronic RV Lead Division Sergeant Other RV Lead Model # 4076 capsurefix RV Lead Serial # [id number] RV Lead Implant Date 11/09/16 LV Lead Division Sergeant LV Lead Division Sergeant Other LV Lead Model # LV Lead Serial # LV Lead Implant Date Other Implant Info Pacemaker Dependant Atrial Lead No Investigational RV Lead Investigational No LV Lead Investigational Known Diagnosed [place] ATP Device Shock Generator MRI Conditional Yes RV Lead ZION Conditional LV Lead MRI Conditional Atrial Lead MRI Conditional Date of Last Programming 11/22/16 Next Programming Check 02/2017 Due Device Mode AAIR<=>DDDR Lower Rate Limit 60 Upper Rate Limit 130 Sensor Rate Limit 130 Pace AV Delay 180 Sense AV Delay 150 Mode Switch (bpm) 171 High A Rate Detect >171 bpm High V Rate Detect >150 bpm Mode Switch Status On HF Patient No Date of Last ICM Evaluation Next ICM Check Due Other Reason Not Remote Patient Date of Last Remote Check 11/18/16 Next Remote Check Due 02/22/17 Accssory Serial Number MyCareLink Transmitter Enrollment Date 11/10/16 Date of baseline remote 11/18/16 transmission AT/AF Daily [place] Hours Average Vent Rate during AT/AF #BPM Average Vent Rate During AT/AF #Hours Remote Monitoring? Yes Daily [place] Threshld Alert? Average Venticular Rate AT/AF On/Off VF Detection/Therapy Off Reason Not Being Remote Patient Remote Connectivity Cellular adaptor Device Remote Manual Yes Downloads Date of Last Interrogation ILR Current Monitoring 12/04/2016 to 01/04/2017 Period ILR Date of Last Daily 12/22/2016 Connection ILR Lifetime Events as of 12/22/2016 Datetion ILR Symptom Events Since 0 Last Interrogation ILR Symptom Lifetime 1 Events as of ILR Tachy Events Since 0 Last Interrogation ILR Tachy Lifetime Events 0 as of ILR Pause Events Since 0 Last Interrogation ILR Pause Lifetime Events 51 as of ILR Ranjeet Events Since 84 Last Interrogation ILR Ranjeet Lifetime Events 3181 as of ILR AF Events Since Last 348 Interrogation ILR AF Lifetime Events as 1829 of ILR Percent Time in AT/AF 13.3% Events Since Last Interrogation ILR Percent Time in AT/AF 2.2% Lifetime of Events as of ILR Battery Status OK ILR Presenting ECG Strip 12/04/2016 @ 00:04:50 shows SA Generator Location Other Generator Location Left [place] Transmitter Check Specimen Performing Laboratory OTHER OUTSIDE LAB Narrative [12/22/2016 4:09:23 PM - SARAH MAGALLON] Reviewed Event Report. #[id number] AF 6/15 @ 09:15 lasting 4 min with a median V rate at 85 bpm and max V rate at 122 bpm shows an irregular R-R interval. #4044 AF 6/14 @ 10:13 lasting 14 min with a median V rate at 72 bpm and max V rate at 128 bpm shows a regular R-R interval with ectopy. #4028 Ranjeet 613 2 01:42 lasting 1 min 47 sec with min/median V rate <30 bpm shows undersensing of a V rate in the 70's. #4027 AF 6/12 @ 07:43 lasting 4 min with a median V rate at 80 bpm and max V rate at 261 bpm shows a V rate between 70's-90's with ectopy. #4023 Ranjeet 6/12 @ 06:02 lasting 1 min 50 sec with a min/median V rate <30 bpm shows undersensing of AFL #4015 AF 6/11 @ 08:09 lasting 8 min with median V rate at 75 bpm and max V rate at 94 bpm shows a V rate between 60's-90's with possible AV block and ectopy. #4010 Ranjeet 6/11 @ 00:31 lasting 2 min 11 sec shows undersensing of a V rate in the 60's-70's with ectopy. #4005 AF 6/10 @ 17:27 lasting 12 min with a median V rate at 88 bpm and max V rate at 316 bpm shows a V rate between 60's-90's with possible AV block and ectopy. #3993 Ranjeet 6/9 @ 21:21 lasting 1 min with a min/median V at <30 bpm shows undersensing of a V rate in the 60's-70's with ectopy #3974 and 3989 AF shows a regular R-R interval with possible AV block. #3964 Ranjeet shows possible undersensing of AFL #3868 AF 12/07 @ 13:53 lasting 2 hrs 46 min with a median V rate at 88 bpm and max V rate at 333 bpm shows an irregular R-R interval with ectopy. Strips were scanned to review and I will route to Dr. Vallejo in the EP lab at today for review and co-sign. JOSY is out of the office. [12/07/2016 9:57:30 AM - SARAH MAGALLON] Reviewed Summary Report and Event Report. 22 ranjeet events and 72 AF events occurred. [11/20/2016 8:03:25 AM - ANTOINETTE PENNINGTON] Dual chamber CareLink pacemaker remote interrogation received on 11/18 and reviewed today. Patient was implanted by Dr. Hewitt @ [facility] on 11/09/16 for Sinus Node Dysfunction. We will need to determine at next OV with Dr. Hewitt or JOSY will manage device/remote monitoring follow up. This is the patients initial transmission. Events noted since 11/09/16 (date of implant): Atrial: 5 events, burden 100.0% since date of implant, V-rates controlled. Patient has a known history of AF with anticoagulation in place. #3814 AF 12/03 @ 19:17 lasting 14 min with a median V rate at 69 bpm and max V rate at 85 bpm shows an irregular R-R interval between the 50's-80's, possible AFL and ectopy noted. #3791 AF 12/02 @ 09:09 lasting 16 min with a median V rate at 92 bpm and max V rate at 133 bpm shows an irregular R-R interval, possible AFL and ectopy noted. #3784 Ranjeet 12/02 @ 04:56 lasting 2 min 32 sec with a min/median V rate at <30 bpm shows undersensing of an R-R interval between the 50's-60 bpm with ectopy noted. #3779 AF 12/01 @ 13:07 lasting 12 min with a median V rate at 83 bpm and max V rate at 122 bpm shows a V rate between 60's-90's. #3769 Ranjeet 5 @ 01:52 lasting 1 min 6 sec with a min/median V rate at <30 bpm shows undersensing of AFL with the 50's-60's. #3767 AF 25 @ 10:03 lasting 8 min with a median V rate at 81 bpm and max V rate at 231 bpm shows an irregular R-R interval. #3766 AF 11/29 @ 18:37 lasting 2 min with a median V rate at 74 bpm and max V rate at 78 bpm shows possible AFL with V rate in the 60's-70's and ectopy noted. #3764 Ranjeet 11/29 @ 04:08 lasting 1 min 24 sec with a min/median V rate at <30 bpm shows AFL with an R-R interval in the 60's-70's #3761 AF 11/28 @ 18:43 lasting 6 min with a median V rate at 75 bpm and max V rate at 80 bpm shows possible AFL with frequent ectopy. #3753 AF 22 @ 10:03 lasting 2 min with a median V rate at 79 bpm and max V rate at 113 bpm shows an irregular R-R interval, AF/AFL with ectopy. #3748 Ranjeet 11/24 @ 06:43 lasting 40 sec with a min/median V rate at <30 bpm shows undersensing of possible AFL Strips were scanned to review and I will route to Dr. Gallegos in the EP lab at [facility] for review and co-sign. in this encounter Visit Diagnoses Diagnosis Palpitations Cardiac device in situ Unspecified cardiac device in situ in this encounter
--- OUTSIDE RECORDS SUMMARY | 2017-02-22 10:32 | XMS REPORT | Encounter Summary ---
Author Author [facility] Organization [facility] Address Unknown Phone Unavailable Care Team Providers Care Fixed Income Portfolio Manager Name Role Phone PCP Unavailable Encounter Details Date Type Department Care Team Description 01/08/2017 [facility] Cardiology Jori Gallegos MD Encounter Remote Device Check [address] [facility] [phone] [address] [place], [place] [phone] Social History Tobacco Use Types Packs/Day Years [...] Results * DEVICE EVALUATION - REMOTE ILR (01/12/2017 1:10 PM) Component Value Ref Range ILR History of Afib Yes Generator Implnat Date 11/09/16 Generator Model # [id number] Lillian FULLER MRI Device Implanted By Dr. Lluvia Hewitt @ [facility] in [place], [place] Generator Serial # [id number] EP Device Followed by Jori Gallegos MD Name ILR Symptom Duration Four 7.5min episodes ILR Tachy Rate 167 (360ms) ILR Tachy Duration 16 ILR Pause Duration off ILR Ranjeet Rate 30 (2000ms) ILR Ranjeet Duration 8 ILR AT Events Since Last 0 Interrogation ILR AT Lifetime Events as 0 of ILR Percent Time in AT/AF V sensitivity 0.025mv Duration Remote Monitor Serial# [id number] Generator Needle Grinder Medtronic Generator Investigational No Wireless Generator No Device Type DDD-PM EP Device Followed By MAC ILR AF Rate AF only ILR AF Duration all episodes Device [place] Carelink Express Transmitter Compatible On AntiCoag Date 2010 Known Diagnosed AFib Yes On Anticoagulation Yes MIGUEL/EOL Indicator 2.83V Atrial Lead Needle Grinder Medtronic Atrial Lead Model # 5076 CapSureFix Novus Atrial Lead Serial # [id number] Atrial Lead Implant Date 11/09/16 RV Lead Needle Grinder Medtronic RV Lead Model # 4076 capsurefix RV Lead Serial # [id number] RV Lead Implant Date 11/09/16 Atrial Lead [...] Cellular adaptor Device Remote Manual Yes Downloads ILR Current Monitoring 01/08/2017 to 02/07/2017 Period ILR Date of Last Daily 02/07/2017 Connection ILR Lifetime Events as of 02/07/2017 Datetion ILR Symptom Events Since 0 Last Interrogation ILR Symptom Lifetime 1 Events as of ILR Tachy Events Since 0 Last Interrogation ILR Tachy Lifetime Events 0 as of ILR Pause Events Since 0 Last Interrogation ILR Pause Lifetime Events 51 as of ILR Ranjeet Events Since 208 Last Interrogation ILR Ranjeet Lifetime Events 3303 as of ILR AF Events Since Last 770 Interrogation ILR AF Lifetime Events as 2108 of ILR Percent Time in AT/AF 2.2% Events Since Last Interrogation ILR Percent Time in AT/AF 2.1% Lifetime of Events as of ILR Battery Status OK ILR Presenting ECG Strip 01/10/2017 @ 00:04:50 shows SR in the 60's Generator Location Left Specimen Performing Laboratory OTHER OUTSIDE LAB Narrative [02/09/2017 1:26:10 PM - SARAH MAGALLON] Reviewed Event Report. Report indicates 76 ranjeet and 207 AF alerts. #[id number] AF shows irregular>regular R-R intervals, AFL with ectopy and undersensing. #[id number] Ranjeet shows a paced V rate between 50's-70's with ectopy and undersensing triggering false ranjeet alerts. Strips were scanned to review and I will route to Dr. Gallegos in the EP lab at [facility] for review and co-sign. [01/12/2017 1:20:22 PM - SARAH MAGALLON] Reviewed Summary Report and Full Report/Event Report. Report indicates 132 Ranjeet events and 563 AF events were alerted. Events occurred from 12/25-01/09 #[id number] Ranjeet shows undersensing of a V rate between the 50's-60's with ectopy noted on some events triggering a false ranjeet alert. #4052-#4146 AF shows an irregular R-R interval with undersensing and ectopy noted. All strips were scanned to review and I will route to Dr. Gallegos for review and co-sign. EP nurse was flagged to review and f/u if needed. in this encounter Visit Diagnoses Diagnosis Cardiac pacemaker in situ Paroxysmal atrial fibrillation (HCC) Atrial fibrillation in this encounter
--- OUTSIDE RECORDS SUMMARY | 2017-02-22 10:32 | XMS REPORT | Encounter Summary ---
Author Author [facility] Organization [facility] Address Unknown Phone Unavailable Care Team Providers Care Plastering Supervisor Name Role Phone PCP Unavailable Reason for Visit * Reason Comments Patient Information Pt asking for AVS to be sent to her, papers didn't get home w/her Encounter Details Date Type Department Care Team Description 11/23/2016 Telephone [facility] Cardiology Yuliya Redding RN Patient Information (Pt [address] asking for AVS to be sent [address] to her, [place] [address] home w/her) [phone] Social History Tobacco Use Types Packs/Day Years [...]
--- OUTSIDE RECORDS SUMMARY | 2017-02-22 10:32 | XMS REPORT | Encounter Summary ---
Author Author [facility] Organization [facility] Address Unknown Phone Unavailable Care Team Providers Care Licensed Embalmer Name Role Phone PCP Unavailable Reason for Visit * Reason Comments Weight Gain increase of 5 lbs on two different scales Encounter Details Date Type Department Care Team Description 12/07/2016 Telephone [facility] Cardiology Yuliana Polo, Weight Gain (increase of [address] Swengel RN 5 lbs on two different [address]age G600 scales) [place] [address] Social History Tobacco Use Types Packs/Day Years [...]
--- OUTSIDE RECORDS SUMMARY | 2017-02-22 10:33 | XMS REPORT | Encounter Summary ---
Author Author [facility] Organization [facility] Address Unknown Phone Unavailable Care Team Providers Care Representative Phlebotomy Services Name Role Phone PCP Unavailable Encounter Details Date Type Department Care Team Description 11/22/2016 [facility] Cardiology Jori Gallegos MD Encounter [address] [place] [address] [place] [address] [phone] Social History Tobacco Use Types Packs/Day Years [...] encounter Results * DEVICE EVALUATION - PPM (11/22/2016 10:10 AM) Component Value Ref Range Permanent Comments Permanent Comments 2 ILR History of Afib Yes ILR Date AF Diagnosed Generator Implnat Date 11/09/16 Generator Model # [id number] Lillian FULLER MRI Device Implanted By Dr. Lluvia Hewitt @ [facility] in [place], [place] Generator Serial # [id number] EP Device Followed by Jori Gallegos MD Name Device [place] Transmitter ILR Symptom Duration Four 7.5min episodes ILR Tachy Rate 167 (360ms) ILR Tachy Duration 16 ILR Pause Duration off ILR Ranjeet Rate 30 (2000ms) ILR Ranjeet Duration 8 ILR AT Events Since Last 0 Interrogation ILR AT Lifetime Events as 0 of ILR AT Rate ILR AT Duration ILR Percent Time in AT/AF V sensitivity 0.025mv Duration Generator Business Loan Processor Other Remote Monitor Serial# [id number] Research Comments Research Comments 2 Generator Business Loan Processor Medtronic Generator Investigational No Wireless Generator No Device Type DDD-PM EP Device Followed By MAC ILR AF Rate AF only ILR AF Duration all episodes Device [place] Carelink Express Transmitter Compatible On AntiCoag Date 2010 Known Diagnosed AFib Yes On Anticoagulation Yes ATP Date Device Shock Date Advisory Info Advisory Info 2 Permanent Comments 3 Permanent Comments 4 Permanent Comments 5 Permanent Comments 6 Permanent Comments 7 Phone Check Next Due MIGUEL/EOL Indicator 2.83V Atrial Lead Business Loan Processor Medtronic Atrial Lead Business Loan Processor Other Atrial Lead Model # 5076 CapSureFix Novus Atrial Lead Serial # [id number] Atrial Lead Implant Date 11/09/16 RV Lead Business Loan Processor Medtronic RV Lead Business Loan Processor Other RV Lead Model # 4076 capsurefix RV Lead Serial # [id number] RV Lead Implant Date 11/09/16 LV Lead Business Loan Processor LV Lead Business Loan Processor Other LV Lead Model # LV Lead [...] of baseline remote 11/18/16 transmission AT/AF Daily [place] Hours Average Vent Rate during AT/AF #BPM Average Vent Rate During AT/AF #Hours Remote Monitoring? Yes Daily [place] Threshld Alert? Average Venticular Rate AT/AF On/Off VF Detection/Therapy Off Reason Not Being Remote Patient Remote Connectivity Cellular adaptor Device Remote Manual Yes Downloads Date of Last Interrogation Device Reprogram Comments Initial Rhythm AfibVP in 60s Underlying Rhythm Afib VS in 50s -VS% 58.8 -SAILBOAT CAPTAIN% 41.2 -VS% AP-SAILBOAT CAPTAIN% Initial Rhythm -VS Device Function WNL Yes Device Reprogram No Programming? Yes Interrogation? Yes Device Check by Rep [place] Transmitter Check Remote Check? # Mode S. Events ongoing # High AT/AF Evts # High V Events 0 Time in AT/AF 100% V Rate in AT/AF Single PVSc PVC runs Battery Voltage 3.10 Estimated Longevity Magent Rate A Sense mv 2.0 A Lead ohms 494 A Capture V A Capture ms Ao Voltage 3.5 AO Pulse Width 0.4 RV Sense mv 12.5 RV Lead ohms 513 RV Capture V 0.75 RV Capture ms 0.4 RV Voltage 3.5 RV Pulse Width 0.4 LV Sense mv LV Lead ohms EP LV Capture V LV Capture ms LV Voltage LV Pulse Width V-V Timing Counters Clrd Yes Saved to Disc No Specimen Performing Laboratory OTHER OUTSIDE LAB [facility] Pt has both PPM ( placed [address] Valdes for pause) and Linq. Remote monitoring for both come here. Pt has returned monitor for Linq, but is to retrieve and continue with monitoring per Dr Gallegos. Dual chamber pacemaker programming.Device function appears normal. Events noted since implant 11/09/16: Atrial:ongoing AFL.V rates > 100 bpm ~ 5 %. Ventricular:none. 41 % SAILBOAT CAPTAIN. Changes made to programming:none Discussed restrictions post PPM implant. [employer] remote monitoring is in place. Will continue to monitor. Report to Dr Gallegos in clinic. [11/22/2016 1:52:58 PM - MONSTER RYDER] in this encounter Visit Diagnoses Diagnosis Atrial flutter, unspecified type PVC's (premature ventricular contractions) Other premature beats Sinus node dysfunction (HCC) Sinoatrial node dysfunction First degree AV block First degree atrioventricular block Persistent atrial fibrillation (HCC) Atrial fibrillation Cardiac pacemaker in situ in this encounter
--- OUTSIDE RECORDS SUMMARY | 2017-02-22 10:33 | XMS REPORT | Encounter Summary ---
Author Author [facility] Organization [facility] Address Unknown Phone Unavailable Care Team Providers Care Finishing Trimmer Name Role Phone PCP Unavailable Reason for Visit * Reason Comments Atrial fibrillation 1 month f/u PVC's Hypertension Cholesterol Post-hospital Follow Up [place] 11-07-16 to 11-10-16 for pacemaker Encounter Details Date Type Department Care Team Description 11/22/2016 Office Visit [facility] Jori Gallegos MD Atrial fibrillation ([address] month f/u); PVC's; [address] Hypertension; [place] [address] [place] [address] Cholesterol; [phone] Post-hospital Follow Up ([place] 11-07-16 to 11-10-16 for pacemaker) Social History Tobacco Use Types Packs/Day Years Used Date Never Smoker Smokeless Tobacco: Never Used Alcohol Use Drinks/Week oz/Week Comments No Sex Assigned at Date Recorded Not on file as of this encounter Last Filed Vital Signs Vital Sign Reading Time Taken Blood Pressure 152/88 11/22/2016 10:06 AM CDT Pulse 64 11/22/2016 10:06 AM CDT Temperature - - Respiratory Rate - - Oxygen Saturation - - Inhaled Oxygen - - Concentration Weight 63.9 kg (140 lb 12.8 oz) 11/22/2016 10:06 AM CDT Height 149.9 cm (4' 11") 11/22/2016 10:06 AM CDT Body Mass Index 28.44 11/22/2016 10:06 AM CDT in this encounter Functional Status [...] Patient Instructions - Jennifer Spivey RN - 11/22/2016 11:14 AM CDT Get the LINQ activator back from Dr Valdes' office and activate any symptoms Call if your BP readings are consistently over 150 systolic Follow up with Dr Gallegos in 3 months with device check (both ILR and PPM) Increase your exercise! Start with at least 15-20 minutes of low intensity walking 3 days a week and then increase to 30 minutes to one hour of moderate intensity walking daily or do other aerobic exercise 3 days heading to a goal of 30-60 minutes of aerobic type exercise 5 days/week. Remember, you can split that time into 2 sessions of 15-30 minutes, if needed. in this encounter Progress Notes * Jori Gallegos MD - 11/22/2016 10:18 AM CDT Formatting of this note may be different from the original. Date of Service: 11/22/2016 Riana Bloom is a 66 y.o. female. HPI I had the pleasure of seeing your patient Riana Bloom in the [facility] as a part of the [facility] [place] office today for follow up regarding her Recurrent Atrial Arrhythmias and Permanent Pacemaker. Her Primary Preprint Analyst is my friend and colleague, Dr. Hewitt. [...] VISUALIZED IS IN V1. She has a [id number] score of 2: Female, HTN. Regarding her [...] severely enlarged, NO RHEA clot. -- 02/04/16: [employer] LinQ Implantable Looping Monitor Implanted by Dr. [...] including 6 beats of NSVT (1.5% PVC [place]). Numerous Sx-events correlated with her Atypical AFL/ATACH with very slow V-response rate, at times in the 30s-low- 40s bpm range. In fact, there were times that she had a competing ventricular escape rhythm. There were pauses, up to 4.2 seconds in duration, which was actually just a prolonged R-R interval. I spoke with her Primary Preprint Analyst, Dr. Lluvia Hewitt, about these results-- it was recommended she present to the hospital for likely permanent pacemaker implantation. 11/09/16: Underwent Permanent Pacemaker Implantation by Dr. Hewitt's in [place], [place]. She has been in Persistent AFIB since early-10/2016-- she remained off Flecainide. She has remained on Mexiletine for control of her ventricular ectopy. NOTE: Dr. Hewitt left her [employer] LinQ Implantable Looping Monitor device in place to capture any symptomatic events. She STATES she is overall feeling better post-PPM implant, however she still has intermittent lightheadedness with postural changes. She has not been able to assess her level of exercise tolerance/dyspnea since she has not been that physically active-- she wanted to wait until her visit today to discuss whether it was "okay" to exercise. She has been checking her pulse daily, and has not detected any recurrent rapidity. She claims compliance with her CPAP Tx. She denies any chest discomfort, shortness of breath, palpitations, syncope, PND or orthopnea. FHx, SHx and ROS documented and I have reviewed, with some pertinent features to include: No FHx of premature CAD. She is a Non-Smoker. Most pertinent ROS is included/discussed throughout the note, e.g. HPI and A/P. ASSESSMENT AND PLAN: -- Lightheadedness: Seems to be predominantly postural or positional. We will decrease her Lasix to 20 mg daily (down from alternating 20 mg/40 mg). -- Currently Persistent Atrial Tachycardia-- Hx of AFIB/Atypical AFL: I have asked her to increase her level of exertion so we can assess her symptoms with activity. If she has significant dyspnea, we could consider synagogue of NSR, however I anticipate her arrhythmia is ASxic. We will likely accept it as permanent. NOTE: On Holter prior to PPM, max HR was 124 bpm. If her atrial arrhythmias are Sxic, we will make more aggressive attempts at rhythm-control. Options would include initiation of Antiarrhythmic Therapy vs pursuing a repeat procedure. I do have some concerns regarding repeat procedure since she has minimally visible P-waves, and therefore I anticipate she has extensive scarring, although still an option. Since her AFIB Ablation in 2013, she has only been on Tikosyn for rhythm-control , since she had Sxic [place] Block on Flecainide in the past. Therefore, alternative Antiarrhythmic Therapy with Rythmol, Multaq, Sotalol or Amiodarone could result in similar Sxic [place] Block. -- Prior Slow V-Rates with Atypical AFL-- Pauses > 4 sec: Obviously no recurrent events since permanent pacemaker implanted by Dr. Hewitt. This issue is now resolved. -- Medtronic DDDR Permanent Pacemaker: Her device is functioning well. We have not made any programming changes at today's visit. -- [employer] Reveal LinQ Implantable Looping Monitor: We discussed that her Pacemaker will detect recurrent arrhythmias if they reach detected thresholds. The only indication for her to keep her ILR in place is so she can activate it with any Sxic events (i.e., potentially capturing any events falling short of detection thresholds). However, she accidentally gave her symptom-activator back to Dr. Hewitt's office. Therefore, I recommended she re-obtain the symptom-activator and activate her ILR with any recurrent events. If she does not have significant arrhythmias documented, we may consider explanting her ILR in the future. -- PVCs: Her 48-hr Holter monitor showed only a 1.5% PVC [place]. She remains on Mexiletine without change. -- Prior HFpEF: She is euvolemic on exam. Her VICKIE on 10/04/16 showed Normal LV Function. See comments above about changes in Lasix dosing. -- Hypertension: Her blood pressure is borderline-elevated. Therefore, I have asked her to continue checking her blood pressure at home daily, varying the time of day she checks it, especially with the changes we are making to her Lasix dosing (as noted above). If her blood pressure continues to be elevated, we will add Lisinopril 5 mg, taking it at night only in an effort to avoid worsened day-time postural symptoms. -- Hyperlipidemia:Followed by Dr. Hewitt. She remains on Lipitor. -- Obstructive Sleep Apnea: She claims compliance with her CPAP Tx. Ms. Bloom was educated regarding plan of [...] her follow-up with me in 3 month(s). Filed Vitals: 11/22/16 1006 BP: 152/88 Pulse: 64 Height: 1.499 m (4' 11") Weight: 63.866 kg (140 lb 12.8 oz) Body mass index is 28.42 kg/(m^2). Past Medical History Patient Active Problem List Diagnosis Date Noted Cardiac pacemaker in situ 11/22/2016 Sinus node [...] showed no obstructive disease. She has a [id number] score of 2--Female, HTN. Please refer to [...] the last 2-[address] Hewitt, in [place], did a CARDIAC CATH 08/2013 and her [...] rhythm. Atrial fibrillation (HCC) 07/07/2014 05/13/14: VICKIE: [facility] [place] [facility]: EF 50% Echogenic density was [...] Cardioversion Ventricular tachycardia (HCC) 06/15/2014 08/20/13: Cath: [facility]: EF 60% dominant circumflex system with no obstructive disease in the coronary system Dyspnea 08/21/2013 PVC's (premature ventricular contractions) 06/05/2011 Sleep apnea 06/05/2011 CPAP First degree AV block 06/05/2011 Some blocked APCs and [place] on AVN meds- tolerates diltiazem and metoprolol poorly Atrial flutter (HCC) 11/07/2010 SEI [id number]/11 CHADS2=one (HTN) Fall 2010-no flutteror AF-OK to DC Pradaxa Hyperlipidemia 09/22/2010 Atypical chest pain 07/2007: [facility]: no significant CAD. 20% mid circ. EF-wnl. RCA -spasm during cath. 05/18/2010: [facility] @ [facility]: No obstructive CAD, normal LV size/ function. EF 60% HTN (hypertension) Palpitations 07/2007 - Complete echocardiogram: Ejection fraction 60%. Mild left ventricular hypertrophy. Trace MR. Mild TR. 30 day event monitor showed Atrial Tach at 140-150bpm for 2-4 sec.. Toprol 25mg XL qd. 08/18/13: MPI: [facility]: EF 59%. Fair exercise tolerance. Frequent VPDs, ventricular bigeminy and ventricular couplets noted at rest and during recovery phase. Non diagnostic ECG changes with exercise. Reversible ischemia involving the whole anterior wall and anterior apex. 01/06/14: Echo: [facility]: EF 60% bradycardia in 40's for procedure. Left atrial dilatation. Moderate mitral regurgitation. Moderate tricuspid regurgitation. Estimated PAP of 40 mmHg Review of Systems Constitution: Negative. HENT: Negative. Eyes: Negative. Cardiovascular: Negative. Respiratory: Negative. Endocrine: Negative. Hematologic/Lymphatic: Negative. Skin: Negative. Musculoskeletal: Negative. Gastrointestinal: Positive for bloating and diarrhea. Genitourinary: Negative. Neurological: Negative. Psychiatric/Behavioral: Negative. Allergic/Immunologic: [...] jugular venous pressure, carotids are 2+/4+ equal bilaterally. Regular rhythm, S1, S2. I do not appreciate any significant murmur today. No heaves, thrills or rubs. Musc/Skeletal-Extremities: Without significant peripheral edema. With what appears to be full ROM. Device Site: Medtronic Reveal LinQ Implantable Looping Monitor site and Pacemaker site are both well-healed. Neuro: Patient is alert and oriented to person, place, and time. Psych: Patient does not appear anxious, she appears appropriate, with normal non-pressured speech and what appears to be appropriate judgement. Cardiovascular Studies ECG today demonstrates AFIB with intrinsic V-response, V-paced fusion and V- pacing at 64 ppm with RAD, NS-Repolarization Abnormality, Diffuse leads. Medtronic Reveal LinQ Implantable Looping Monitor Full device check performed with reprogramming which I have extensively reviewed. Changes, if done, as discussed below and is detailed in other dictation/note. Pacemaker Full device check performed with reprogramming which I have extensively reviewed. Changes, if done, as discussed below and is detailed in other dictation/note. Of course persistent ongoing atypical AFL, 50% V pacing, lower rate limit 60 bpm. 9095% of the time her ventricular rate is under 100 bpm. No high ventricular rates above 150 bpm noted. Problems Addressed Today Encounter Diagnoses Name Primary? Cardiac pacemaker in situ Yes Paroxysmal atrial fibrillation (HCC) Current Medications (including today's revisions) alprazolam (XANAX) 0.5 mg PO tablet Take 0.5 mg by mouth three times daily as needed. atorvastatin (LIPITOR) 40 mg tablet Take 40 mg by mouth daily. Cholecalciferol (Vitamin D3) 5,000 unit cap Take 1 Cap by mouth daily. ciprofloxacin (CIPRO) 500 mg tablet Take 500 mg by mouth twice daily. Diphenhydramine-Acetaminophen (TYLENOL PM EXTRA STRENGTH) 25-500 mg tab tablet Take 1 Tab by mouth at bedtime as needed. diphenoxylate/atropine (LOMOTIL) 2.5/0.025 mg tablet Take 1 Tab by mouth four times daily as needed for Diarrhea. docusate (COLACE) 100 mg capsule Take 100 mg by mouth twice daily as needed. escitalopram (LEXAPRO) 20 mg PO tablet Take 10 mg by mouth at bedtime daily. furosemide (LASIX) 20 mg tablet TAKE ONE [...] BY MOUTH DAILY BASED ON INR RESULTS Documentation recorded by Babita Pabon, acting as scribe for Jori Gallegos M.D. in this encounter Plan of Treatment Name Priority Associated Diagnoses Order Schedule ECG 12-LEAD Routine Cardiac pacemaker in situ Ordered: 11/22/2016 Paroxysmal atrial fibrillation (HCC) as of this encounter Results * DEVICE EVALUATION - REMOTE ILR (01/12/2017 1:10 PM) Component Value Ref Range ILR History of Afib Yes Generator Implnat Date 11/09/16 Generator Model # [id number] Lillian FULLER MRI Device Implanted By Dr. Lluvia Hewitt @ [facility] in [place], [place] Generator Serial # [id number] EP Device Followed by Jori Gallegos MD Name ILR Symptom Duration Four 7.5min episodes ILR Tachy Rate 167 (360ms) ILR Tachy Duration 16 ILR Pause Duration off ILR Ranjeet Rate 30 (2000ms) ILR Ranjeet Duration 8 ILR AT Events Since Last 0 Interrogation ILR AT Lifetime Events as 0 of ILR Percent Time in AT/AF V sensitivity 0.025mv Duration Remote Monitor Serial# [id number] Generator Director Of Healthcare Systems Medtronic Generator Investigational No Wireless Generator No Device Type DDD-PM EP Device Followed By MAC ILR AF Rate AF only ILR AF Duration all episodes Device [place] [employer] Transmitter Compatible On AntiCoag Date 2010 Known Diagnosed AFib Yes On Anticoagulation Yes MIGUEL/EOL Indicator 2.83V Atrial Lead Director Of Healthcare Systems Medtronic Atrial Lead Model # 5076 CapSureFix Novus Atrial Lead Serial # [id number] Atrial Lead Implant Date 11/09/16 RV Lead Director Of Healthcare Systems Medtronic RV Lead Model # 4076 capsurefix RV Lead Serial # [id number] RV Lead Implant Date 11/09/16 Atrial Lead [...] 770 Interrogation ILR AF Lifetime Events as 2107 of ILR Percent Time in AT/AF 2.2% [...] indicates 76 ranjeet and 207 AF alerts. #[id number] AF shows irregular>regular R-R intervals, AFL with ectopy and undersensing. #[id number] Ranjeet shows a paced V rate between 50's-70's with ectopy and undersensing triggering false ranjeet alerts. Strips were scanned to review and I will route to Dr. Gallegos in the EP lab at [facility] for review and co-sign. [01/12/2017 1:20:22 [...] flagged to review and f/u if needed. * ECG/QRS (11/22/2016) Component Value Ref Range QRS DURATION 86 Specimen Performing Laboratory OTHER OUTSIDE LAB in this encounter Visit Diagnoses Diagnosis Cardiac pacemaker in situ - Primary Paroxysmal atrial fibrillation (HCC) Atrial fibrillation in this encounter
== END ==
LOC: CATH 07:36
PROVIDERS: ATTEND Internal Medicine Cardiovascular Disease
DX: I48.91 Unspecified atrial fibrillation (principal); I48.92 Unspecified atrial flutter; Z53.8 Procedure and treatment not carried out for other reasons; I49.5 Sick sinus syndrome; I25.10 Atherosclerotic heart disease of native coronary artery without angina pectoris; I10 Essential (primary) hypertension; E78.5 Hyperlipidemia, unspecified; Z79.01 Long term (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; Z79.899 Other long term (current) drug therapy; Z95.0 Presence of cardiac pacemaker
CPT/HCPCS: 36415; 71010; 80053; 85027; 85610; 85730; 87081; 93005

== ENCOUNTER → 2017-02-22 | Outpatient (CLI) | payer MEDICARE, OTHER ==
[~2017-02-22] MED LIST changes: -LIDOCAINE 2% VISCOUS 15 ML UDC ONE; -LIDOCAINE 2% VISCOUS 15 ML UDC PO ONE; -MIDAZOLAM 2 MG/2 ML (VERSED) VIAL ONE; -NS IV 1000 ML 1,000 ML IV SCH; -NS IV 1000 ML 1,000 ML ONE; -fentaNYL INJECTION 100 MCG/2 ML AMP ONE; -proPOfol 200 MG/20 ML (DIPRIVAN) VIAL IV ONE
--- NOTE | 2017-02-23 19:47 | Diagnostic Imaging Report ---
EXAMINATION: Digital mammogram bilateral screening. INDICATION: Screening. COMPARISON: This study was compared to the prior exams of 12/09/2014, 08/28/2013, and 02/17/2013. At this time, there are no current complaints. The current study was also evaluated with A Computer Aided Detection (CAD) system. FINDINGS: The fibroglandular tissue in both breasts is heterogeneously dense. This does limit the sensitivity of this exam. When compared to the prior study, there does not appear to have been any significant change. There is no primary or secondary sign of malignancy noted. The 3D tomographic views also fail to show any sign of malignancy. IMPRESSION: There is no evidence of malignancy. ACR BI-RADS Category 1: Negative. Result letter will be mailed to the patient. Note: At least 10% of breast cancer is not imaged by mammography. Dictated on workstation # [id number]
== END ==
LOC: RAD 10:52
PROVIDERS: ATTEND Family Medicine
DX: Z12.31 Encounter for screening mammogram for malignant neoplasm of breast (principal)
CPT/HCPCS: 77067

== ENCOUNTER → 2017-07-07 | Outpatient (CLI) | payer MEDICARE, OTHER ==
[2017-07-07 12:04] LABS: BILIRUBIN,URINE NEGATIVE (NEGATIVE); CLARITY,URINE BLOODY; COLOR,URINE RED; GLUCOSE, URINE (UA) NEGATIVE (NEGATIVE); KETONES,URINE NEGATIVE (NEGATIVE); LEUKOCYTE ESTERASE ,URINE 3+ (NEGATIVE); NITRITE,URINE NEGATIVE (NEGATIVE); PH,URINE 7 (5-9); PROTEIN,URINE 3+ (NEGATIVE); UROBILINOGEN,URINE NORMAL (NORMAL)
[2017-07-07 12:11] LABS: HEMOGLOBIN 11.8 G/DL (11.5-16.0); MEAN PLATELET VOLUME 9.8 FL (7.4-10.4); RED BLOOD COUNT 4.19 10^6/uL (4.35-5.85); RED CELL DISTRIBUTION WIDTH 14.7 % (10.0-14.5); WHITE BLOOD COUNT 10.8 10^3/uL (4.3-11.0)
[2017-07-07 12:14] LABS: BACTERIA,URINE NEGATIVE /HPF; RBC,URINE TNTC /HPF; WBC,URINE 50-100 /HPF
[2017-07-07 12:25] LABS: INR 2.2 (0.8-1.4); PROTHROMBIN TIME PATIENT 24.5 SEC (12.2-14.7)
[2017-07-07 12:32] LABS: ALANINE AMINOTRANSFERASE 10 U/L (0-55); ALBUMIN 4.3 GM/DL (3.2-4.5); ALKALINE PHOSPHATASE 76 U/L (40-136); BILIRUBIN,TOTAL 0.9 MG/DL (0.1-1.0); BUN/CREATININE RATIO 14; CALCIUM 9.3 MG/DL (8.5-10.1); CARBON DIOXIDE 27 MMOL/L (21-32); CHLORIDE 107 MMOL/L (98-107); CREATININE SERUM 0.76 MG/DL (0.60-1.30); GFR ESTIMATED > 60; GLUCOSE 100 MG/DL (70-105); POTASSIUM 3.6 MMOL/L (3.6-5.0); SODIUM 145 MMOL/L (135-145); TOTAL PROTEIN 7.2 GM/DL (6.4-8.2)
== END ==
LOC: LAB 11:25
PROVIDERS: ATTEND Nurse Practitioner Family
DX: Z51.81 Encounter for therapeutic drug level monitoring (principal); R31.9 Hematuria, unspecified; Z79.899 Other long term (current) drug therapy
CPT/HCPCS: 36415; 80053; 81000; 85027; 85610; 87077; 87088; 87186

== ENCOUNTER → 2017-08-29 | Outpatient (CLI) | payer MEDICARE, OTHER | LOC: RAD 08:33 | PROVIDERS: ATTEND Physician Assistant | DX: I08.1 Rheumatic disorders of both mitral and tricuspid valves (principal); I48.91 Unspecified atrial fibrillation; I10 Essential (primary) hypertension; E78.5 Hyperlipidemia, unspecified; R06.02 Shortness of breath | CPT/HCPCS: 93306 ==

== ENCOUNTER → 2017-09-03 | Outpatient (CLI) | payer MEDICARE, OTHER ==
[~2017-09-03] VITALS: Ht 149.9 cm; Wt 64.9 kg
[~2017-09-03] MED LIST changes: +CATHETER FLUSH 10 ML SYR IV PRN; +REGADENOSON 0.4 MG/5 ML SYR (LEXISCAN) IV ONE
[2017-09-03 09:40] VITALS: BP 162/86
[2017-09-03 09:43] VITALS: BP 161/71
--- NOTE | 2017-09-03 13:57 | STRESS TEST ---
DATE OF SERVICE: 09/03/2017 LEXISCAN MYOVIEW STRESS TEST REPORT REFERRING PHYSICIAN: Dr. Ball. Baseline heart rate is 80. Baseline blood pressure 162/86. Baseline EKG is sinus rhythm with left bundle-branch block. In summary, the patient was injected with 10.74 mCi of technetium-99 Myoview and the resting images were obtained. Then, the patient received 0.4 mg of Lexiscan followed by 29.9 mCi of technetium-99 Myoview. Throughout the test, there were no EKG changes. The resting and stress images were reviewed and compared in the short axis, horizontal long axis, and vertical long axis views. Review of the images showed breast attenuation with mild reversal of ischemia involving the mid to apical anterior wall and anterolateral wall. SSS is 5. SDS 5. TID value 1.05. On the gated images, the left ventricle appeared to be normal size with normal contractility, calculated ejection fraction 54%. CONCLUSION: 1. The patient tolerated Lexiscan well. 2. Baseline left bundle-branch block persisted throughout test. 3. Breast attenuation with mild ischemia involving the mid to apical anterior wall and anterolateral wall. 4. Normal left ventricular size with normal contractility, calculated ejection fraction 54%. Job ID: [id number] DocumentID: [id number] Dictated Date: 09/03/2017 11:20:10 Data Warehouse Specialist Date: 09/03/2017 13:56:32 Dictated By: ELISE RIDER MD
== END ==
LOC: CARD 08:13
PROVIDERS: ATTEND Physician Assistant
DX: I48.0 Paroxysmal atrial fibrillation (principal); I10 Essential (primary) hypertension; E78.2 Mixed hyperlipidemia; R06.02 Shortness of breath
CPT/HCPCS: 78452; 93017

== ENCOUNTER → 2017-09-25 | Outpatient (CLI) | payer MEDICARE, OTHER ==
[~2017-09-25] MED LIST changes: -CATHETER FLUSH 10 ML SYR IV PRN; +METO-387 PO; -REGADENOSON 0.4 MG/5 ML SYR (LEXISCAN) IV ONE
--- NOTE | 2017-09-25 13:07 | Diagnostic Imaging Report ---
PROCEDURE: CT abdomen and pelvis without contrast. TECHNIQUE: Multiple contiguous axial images were obtained through the abdomen and pelvis without the use of intravenous contrast. INDICATION: Acute abdominal pain. COMPARISON: Comparison is made with prior CT from 12/08/2016. FINDINGS: The lung bases are clear. No discrete liver mass is identified. The gallbladder is unremarkable. Pancreas and spleen are unremarkable. No adrenal mass is detected. No renal calculi or hydronephrosis is identified. Aorta is non-aneurysmal. The small and large bowel loops are normal in caliber. No obstruction is seen. No free fluid in the abdomen is identified. There is a small amount of free fluid in the dependent portion of the pelvis. There appears to be sigmoid diverticulosis but no findings to suggest acute diverticulitis. The bladder is unremarkable. IMPRESSION: Uncomplicated diverticulosis. Study is otherwise unremarkable. No acute feature is identified. Dictated by: Dictated on workstation # [id number]
== END ==
LOC: RAD 11:37
PROVIDERS: ATTEND Family Medicine
DX: K57.30 Diverticulosis of large intestine without perforation or abscess without bleeding (principal)
CPT/HCPCS: 74176

== ENCOUNTER → 2017-10-19 | Outpatient (CLI) | payer MEDICARE, OTHER ==
[~2017-10-19] MED LIST changes: +ACHD5005 PO; +AMIO200T4 PO; +AMOX-358 PO; +ESCI10TA55; +POTA10TA6 PO; -SPIR25TA3 PO; +SPIR25TA5 PO; +WALK1EAC23 MC; +WARF2.5T PO
== END ==
LOC: RT 09:16
PROVIDERS: ATTEND Internal Medicine Cardiovascular Disease
DX: Z51.81 Encounter for therapeutic drug level monitoring (principal); I48.3 Typical atrial flutter; Z79.899 Other long term (current) drug therapy
CPT/HCPCS: 94060; 94726; 94729

== ENCOUNTER → 2017-11-07 | Outpatient (CLI) | payer MEDICARE, OTHER ==
[~2017-11-07] MED LIST changes: -ACHD5005 PO; -AMIO200T4 PO; -AMOX-358 PO; +CATHETER FLUSH 10 ML SYR IV PRN; -ESCI10TA55; +IOHEXOL 350 MG/ML 150 ML (OMNIPAQUE 350) VIAL IV ONE; +NS 250 ML (IVPB) BAG IV ONE; -POTA10TA6 PO; +SPIR25TA3 PO; -SPIR25TA5 PO; -WALK1EAC23 MC; -WARF2.5T PO
[2017-11-07 10:35] LABS: BUN/CREATININE RATIO 19; CREATININE SERUM 0.79 MG/DL (0.60-1.30); GFR ESTIMATED > 60
--- NOTE | 2017-11-07 12:52 | Diagnostic Imaging Report ---
PROCEDURE: CT angiography of the chest with contrast. TECHNIQUE: Multiple contiguous axial images were obtained through the chest after uneventful bolus administration of intravenous contrast. Reconstructed CTA MIP acquisitions were also performed. INDICATION: Chest tightness, shortness of breath on exertion. Comparisons are limited to overlapped images obtained of the lung bases during abdominal CT 09/25/2017. FINDINGS: There are no intraluminal pulmonary arterial filling defects. There are no findings of pulmonary arterial embolus. Thoracic aorta is patent and nonaneurysmal. There is no pleural or pericardial effusion. No suspicious or dominant lung mass and no consolidating infiltrate or pneumonia. No effusion or pneumothorax. No acute chest wall abnormality. The visualized upper abdomen nonacute. IMPRESSION: Negative for PE or other acute abnormalities. Dictated by: Dictated on workstation # [id number]
== END ==
LOC: RAD 10:10
PROVIDERS: ATTEND Nurse Practitioner Family
DX: R06.09 Other forms of dyspnea (principal); R07.9 Chest pain, unspecified; K21.9 Gastro-esophageal reflux disease without esophagitis
CPT/HCPCS: 36415; 71275; 82565; 84520

== ENCOUNTER → 2017-11-13 | Outpatient (CLI) | payer MEDICARE, OTHER ==
[~2017-11-13] MED LIST changes: -CATHETER FLUSH 10 ML SYR IV PRN; -IOHEXOL 350 MG/ML 150 ML (OMNIPAQUE 350) VIAL IV ONE; -NS 250 ML (IVPB) BAG IV ONE
[2017-11-13 11:08] LABS: ABG BASE EXCESS 1.8 MMOL/L (-2.5-2.5); ABG OXYGEN SATURATION 97 % (94-100); ABG PCO2 38 MMHG (35-45); ABG PH 7.45 (7.37-7.43); ABG PO2 81 MMHG (79-93); ABG TCO2 26.6 MMOL/L (21.0-31.0); ALLENS TEST YES-POS; INSPIRED O2 ROOM AIR; PATIENT TEMP 98.6; VENTILATOR NO
== END ==
LOC: LAB 10:11
PROVIDERS: ATTEND Nurse Practitioner Family
DX: J98.4 Other disorders of lung (principal)
CPT/HCPCS: 36600; 82805

== ENCOUNTER 2017-12-10 09:05 | Outpatient (RCR) | payer MEDICARE, OTHER ==
[~2017-12-10 09:05] MED LIST changes: -SPIR25TA3 PO; +SPIR25TA5 PO
[2018-01-07] MEDS ORDERED: ESCI10TA55 (05:49)
[2018-01-07] MEDS ORDERED: FURO20TA4 PO (13:59)
[2018-01-07] MEDS ORDERED: AMIO200T4 PO (13:59)
[2018-01-07] MEDS ORDERED: ESCI20TA45 PO (13:59)
[2018-01-14] MEDS ORDERED: WARF2.5T PO (09:07)
[2018-01-14] MEDS ORDERED: ACHD5005 PO (09:07)
[2018-01-14] MEDS ORDERED: POTA10TA6 PO (09:07)
[2018-01-14] MEDS ORDERED: AMOX-358 PO (09:07)
[2018-01-14] MEDS ORDERED: WALK1EAC23 MC (10:09)
[2018-03-06] MEDS ORDERED: ESZO3TAB39 PO (09:40)
[2018-03-06] MEDS ORDERED: CRAN500T2 PO (09:40)
== END 2018-03-10 | disposition home or self-care (01) ==
LOC: PULM 09:05
PROVIDERS: ATTEND Nurse Practitioner Family
DX: J98.4 Other disorders of lung (principal); R06.02 Shortness of breath
CPT/HCPCS: 99211

== ENCOUNTER 2018-01-07 05:26 | Inpatient (IN) | payer MEDICARE, OTHER ==
[~2018-01-07] VITALS: Ht 149.9 cm; Wt 67.1 kg
[2018-01-07] VITALS (20 sets, daily range): BP systolic 95–158; BP diastolic 46–85
[2018-01-07] MEDS ORDERED: ASPIRIN 81 MG CHEW (CHILDREN'S ASA) ONE (05:30)
[2018-01-07] MEDS ORDERED: NITROGLYCERIN 0.4 MG SL TABS BTL 25'S SL ONE (05:30)
[2018-01-07] MEDS ORDERED: NS IV 1000 ML 1,000 ML ONE (05:33)
[2018-01-07] MEDS ORDERED: NS IV 1000 ML 1,000 ML IV SCH ×3 (05:33→09:45)
[2018-01-07] MEDS ORDERED: ONDANSETRON 4 MG/2 ML (SDV) Z0FRAN ONE ×2 (05:33→10:29)
--- NOTE | 2018-01-07 05:43 | ED GI ---
General Stated Complaint: VOMITING AFIB Source of Information: Patient, Family Exam Limitations: No Limitations (ZURI STEEN) History of Present Illness Date Seen by Provider: Jan 07, 2018 Time Seen by Provider: 05:30 Initial Comments Patient states that she woke up this morning with some bloating feeling feeling like her CPAP machine had pushed a lot of air under her body until she would like a balloon ready to pop. She's not having any chest pain necessarily nor she short of breath. She's had no fevers chills. She does have nausea and she vomited a couple times on the ride over. She is a history of atrial fibrillation for which she uses warfarin and she's had heart catheter's by Dr. Hewitt before and told that she did not need any stents. She recently got over a bout of diverticulitis using metronidazole and finished that just a few days ago. She says she had a normal bowel movement this morning without straining, diarrhea or blood in the stool. She's not really having pain anywhere. She says she just feels off all over. She does note that recently she was taken off of her amiodarone but she is not feeling any palpitations or sensation that her heart is racing. (ZURI STEEN) Allergies and Home Medications Allergies Coded Allergies: rosuvastatin (Unverified Allergy, Mild, 01/24/17) Sulfa (Sulfonamide Antibiotics) (Verified Allergy, Unknown, 01/24/17) Home Medications Acetaminophen/Diphenhydramine 1 Ea Tab, 1 TAB PO HS, (Reported) Alprazolam 0.5 Mg Tablet, 0.25 MG PO TID PRN for ANXIETY, (Reported) TAKES 1/2 OF A (0.5 MG) TABLET Amiodarone HCl 200 Mg Tablet, 400 MG PO DAILY, (Reported) take 2 (200 mg) tablets once daily with food Atorvastatin Calcium 40 Mg Tablet, 40 MG PO HS, (Reported) Cholecalciferol 5,000 Unit Capsule, 5,000 UNIT PO DAILY, (Reported) Escitalopram Oxalate 20 Mg Tablet, 20 MG PO DAILY, (Reported) Furosemide 20 Mg Tablet, 20 MG PO ON EVEN DAYS, (Reported) Furosemide 20 Mg Tablet, 40 MG PO ON ODD DAYS, (Reported) TAKE 2 (20 MG) TABLETS ON ODD DAYS Metoprolol Succinate 25 Mg Tab.er.24h, 25 MG PO DAILY, (Reported) Mexiletine HCl 200 Mg Capsule, 200 MG PO BID, (Reported) Pantoprazole Sodium 40 Mg Tablet.dr, 40 MG PO DAILY, (Reported) Spironolactone 25 Mg Tablet, 25 MG PO DAILY, (Reported) Warfarin Sodium 5 Mg Tablet, 5 MG PO SuTuThSa, (Reported) Patient Home Medication List Home Medication List Reviewed: Yes (ZURI STEEN) Review of Systems Constitutional: No chills, No fever; malaise EENTM: No Blurred Vision, No Double Vision Respiratory: Denies Cough, Denies Shortness of Air, Denies Wheezing Cardiovascular: Denies Chest Pain, Denies Edema; Irregular Heart Rate; Denies Lightheadedness, Denies Palpitations Gastrointestinal: Denies Abdomen Distended, Denies Abdominal Pain Genitourinary: Denies Burning, Denies Discharge Musculoskeletal: No back pain, No joint pain Skin: No pruritus, No rash Psychiatric/Neurological: Denies Headache, Denies Numbness, Denies Paresthesia (ZURI STEEN) Past Zvckcht-Vmszlu-Rydnfc Hx Patient Social History Alcohol Use: Denies Use Recreational Drug Use: No Smoking Status: Never a Smoker 2nd Hand Smoke Exposure: Yes Recent Hopitalizations: Yes (PACEMAKER ON 11/09/16, C-DIFF 12/23) (ZURI STEEN) Immunizations Up To Date Tetanus Booster (TDap): Less than 5yrs PED Vaccines UTD: No Date of Influenza Vaccine: Apr 17, 2017 (ZURI STEEN) Seasonal Allergies Seasonal Allergies: No (ZURI STEEN) Past Medical History Surgeries: Yes (HYST,BREAST REDUCTION,OOPH.,RECTOCELE) Cardiac, Hysterectomy, Oophorectomy, Pacemaker, Tonsillectomy Respiratory: No Sleep Apnea Currently Using CPAP: Yes Cardiac: Yes Atrial Fibrillation, High Cholesterol, Hypertension Neurological: No Reproductive Disorders: No (X1 MISCARRIAGE) NUTRITION TECH History: Hysterectomy Sexually Transmitted Disease: No HIV/AIDS: No Genitourinary: Yes UTI-Chronic Gastrointestinal: Yes Gastroesophageal Reflux, Diverticulosis Musculoskeletal: Yes (OCC.GOES TO CHIROPRACTOR) Endocrine: No Loss of Vision: Bilateral Hearing Impairment: Denies Cancer: No Psychosocial: No Anxiety, Depression Integumentary: No Blood Disorders: No Adverse Reaction/Blood Tranf: No (ZURI STEEN) Family Medical History Heart Disease, CAD Under 55 Years Old (ZURI STEEN) Physical Exam Vital Signs Vital Signs - First Documented 01/07/18 01/07/18 05:26 06:10 Temp 96.1 Pulse 76 Resp 26 B/P (MAP) 177/84 (115) Pulse Ox 99 O2 Delivery Room Air O2 Flow Rate 2.00 (KWAME QUEEN MD) Vital Signs Capillary Refill : (ZURI STEEN) General Appearance: WD/WN, mild distress HEENT: PERRL/EOMI, normal ENT inspection, pharynx normal Neck: non-tender, full range of motion, supple, normal inspection Respiratory: chest non-tender, lungs clear, normal breath sounds, no respiratory distress, no accessory muscle use Cardiovascular: normal peripheral pulses, regular rate, rhythm, no edema, no JVD Peripheral Pulses: 2+ Radial Pulses (R), 2+ Radial Pulses (L) Gastrointestinal: soft, abnormal bowel sounds (quiescent), distended; No guarding, No rebound; tenderness (mild diffuse tenderness) Extremities: normal inspection, no pedal edema, no calf tenderness, normal capillary refill Neurologic/Psychiatric: alert, normal mood/affect, oriented x 3 Skin: normal color, warm/dry (ZURI STEEN) Back: normal inspection, no CVA tenderness, no vertebral tenderness (KWAME QUEEN MD) Focused Exam Lactate Level 01/07/18 05:35: Lactic Acid Level 4.37*H 01/07/18 07:05: Lactic Acid Level 1.84 (KWAME QUEEN MD) Lactic Acid Level Laboratory Tests Test 01/07/18 05:35 01/07/18 07:05 Lactic Acid Level 4.37 MMOL/L (0.50-2.00) *H 1.84 MMOL/L (0.50-2.00) (KWAME QUEEN MD) Progress/Results/Core Measures Results/Orders Lab Results Laboratory Tests Test 01/07/18 05:35 01/07/18 06:35 01/07/18 07:05 Range/Units White Blood Count 10.0 4.3-11.0 10^3/uL Red Blood Count 4.66 4.35-5.85 10^6/uL Hemoglobin 12.9 11.5-16.0 G/DL Hematocrit 40 35-52 % Mean Corpuscular Volume 86 80-99 FL Mean Corpuscular Hemoglobin 28 25-34 PG Mean Corpuscular Hemoglobin Concent 32 32-36 G/DL Red Cell Distribution Width 17.0 H 10.0-14.5 % Platelet Count 367 130-400 10^3/uL Mean Platelet Volume 10.1 7.4-10.4 FL Neutrophils (%) (Auto) 57 42-75 % Lymphocytes (%) (Auto) 35 12-44 % Monocytes (%) (Auto) 6 0-12 % Eosinophils (%) (Auto) 1 0-10 % Basophils (%) (Auto) 0 0-10 % Neutrophils # (Auto) 5.7 1.8-7.8 X 10^3 Lymphocytes # (Auto) 3.5 1.0-4.0 X 10^3 Monocytes # (Auto) 0.6 0.0-1.0 X 10^3 Eosinophils # (Auto) 0.1 0.0-0.3 10^3/uL Basophils # (Auto) 0.0 0.0-0.1 10^3/uL Prothrombin Time 24.0 H 12.2-14.7 SEC INR Comment 2.1 H 0.8-1.4 Activated Partial Thromboplast Time 30 24-35 SEC Sodium Level 141 135-145 MMOL/L Potassium Level 3.7 3.6-5.0 MMOL/L Chloride Level 102 98-107 MMOL/L Carbon Dioxide Level 20 L 21-32 MMOL/L Anion Gap 19 H 5-14 MMOL/L Blood Urea Nitrogen 16 7-18 MG/DL Creatinine 1.08 0.60-1.30 MG/DL Estimat Glomerular Filtration Rate 51 BUN/Creatinine Ratio 15 Glucose Level 180 H 70-105 MG/DL Lactic Acid Level 4.37 *H 1.84 0.50-2.00 MMOL/L Calcium Level 9.4 8.5-10.1 MG/DL Magnesium Level 1.8 1.8-2.4 MG/DL Total Bilirubin 1.1 H 0.1-1.0 MG/DL Aspartate Amino Transf (AST/SGOT) 23 5-34 U/L Alanine Aminotransferase (ALT/SGPT) 13 0-55 U/L Alkaline Phosphatase 102 40-136 U/L Troponin I < 0.30 <0.30 NG/ML B-Type Natriuretic Peptide 418.0 H <100.0 PG/ML Total Protein 7.2 6.4-8.2 GM/DL Albumin 4.4 3.2-4.5 GM/DL Triglycerides Level 136 <150 MG/DL Lipase 21 8-78 U/L Urine Color YELLOW Urine Clarity CLEAR Urine pH 5 5-9 Urine Specific [place] 1.015 L 1.016-1.022 Urine Protein 3+ H NEGATIVE Urine Glucose (UA) NEGATIVE NEGATIVE Urine Ketones NEGATIVE NEGATIVE Urine Nitrite NEGATIVE NEGATIVE Urine Bilirubin NEGATIVE NEGATIVE Urine Urobilinogen NORMAL NORMAL MG/DL Urine Leukocyte Esterase 2+ H NEGATIVE Urine RBC (Auto) 5+ H NEGATIVE Urine RBC 0-2 /HPF Urine WBC 25-50 H /HPF Urine Squamous Epithelial Cells 5-10 /HPF Urine Crystals NONE /LPF Urine Bacteria TRACE /HPF Urine Casts PRESENT /LPF Urine Hyaline Casts 2-5 H /LPF Urine Mucus NEGATIVE /LPF Urine Culture Indicated YES (KWAME QUEEN MD) Micro Results Microbiology 01/07/18 Urine Culture - Preliminary, Resulted Sent To [facility] (KWAME QUEEN MD) My Orders Orders - KWAME QUEEN MD Us Gallbladder [id number] (01/07/18 08:03) (KWAME QUEEN MD) Medications Given in ED Current Medications Medications Dose Ordered Sig/Allie Route Start Time Stop Time Status Last Admin Dose Admin Ondansetron HCl 4 mg ONCE PRN IVP 01/07/18 06:00 01/07/18 06:04 DC 01/07/18 06:03 4 MG Piperacillin Sod/ Tazobactam Sod 3.375 gm/Sodium Chloride 100 ml @ 200 mls/hr ONCE ONCE IV 01/07/18 06:00 01/07/18 06:29 DC 01/07/18 06:40 200 MLS/HR (KWAME QUEEN MD) Vital Signs/I&O 01/07/18 01/07/18 05:26 06:10 Temp 96.1 Pulse 76 Resp 26 B/P (MAP) 177/84 (115) Pulse Ox 99 96 O2 Delivery Room Air Nasal Cannula O2 Flow Rate 2.00 (KWAME QUEEN MD) Progress Progress Note : Time: 05:44 Progress Note Difficult history however her exam seems to point towards an abdominal component especially with the history of recent diverticulitis. Her bowel sounds are rather quiescent so an ileus versus other worrisome intra-abdominal pathology should be considered. We will obtain a lactic acid to look for ischemic colitis given her history of atrial fibrillation. We will get a PT/INR to see if her warfarin is doing any good. Get some basic set of labs and urinalysis as well as a troponin and give her some aspirin in case her discomfort and feeling of being bloated has something to do with an atypical coronary presentation. Finally we'll get a CT with contrast of the abdomen and give her a liter of fluids. She is not in RVR. Cardiac catheterization September [address] Hewitt: Left ventricle normal in size and contractility with ejection fraction of 60% and otherwise nonobstructive disease. Plethysmography from October 2017 demonstrates restrictive lung disease. Status post ablation for paroxysmal atrial flutter. Echocardiogram [address] Hewitt demonstrates EF of 60-65% and mild regurgitation and mitral valve with an estimated pulmonary artery pressure 40- 45 mmHg. (ZURI STEEN) Progress Note : Progress Note Assumed care of the patient from Dr. Steen at 0600. He has initiated 30 mL/kg bolus of normal saline due to lactic acid greater than 4. As of this point, still undifferentiated as to cause of this. Pending CT abdomen and pelvis, chest x-ray and UA. Monitor patient. 0650: I have reexamined the patient. Heart is regular in rate and rhythm. Atrial paced rhythm on monitor. Heart rate 70. Blood pressure currently 143/82 with O2 sat 99 percent on room air and respiratory rate of 14. Lungs are clear to auscultation bilateral. Normal cap refill. I attest to focused exam at this time. Pending UA and reads of CT and chest x-ray. 0810: Blood pressure remains 140s over 80s with heart rate in the 70s and paced rhythm. O2 sat 99 percent on 2 L. Patient has laboratory findings of severe sepsis and does not have septic shock. There is concerns about the liver and gallbladder ultrasound has been ordered. She will need further workup of the liver. I discussed the case with Dr. ELDER and headache since patient for admission, inpatient status. Zosyn has been initiated and we will continue that at this point. The liver dysfunction and that the patient has may also be resulting in the elevated lactic acid. This may be a metabolic process more than an infectious process. Patient and family agree with plan. 0820: Ultrasound in progress. Patient is reporting some shortness of air. I do have concerns about the fluid resuscitation and would limit that now even there may be concerns of pulmonary edema. Preliminary gallbladder ultrasound at 0900 shows patient with findings concerning for acute cholecystitis. I did discuss the case with Dr. Moran and he will see her in consult. Left message for hospitalist as well. (KWAME QUEEN MD) Initial ECG Impression Date: Jan 07, 2018 Initial ECG Impression Time: 05:29 Initial ECG Rate: 123 Initial ECG Rhythm: A Fib/Flutter Initial ECG Intervals: QT (647) Initial ECG Impression: Atrial Fibrillation Initial ECG Comparisson: Changed Comment No credible ST elevation or depression. Lots of artifact. Atrial fibrillation without rapid ventricular response. (ZURI STEEN) Diagnostic Imaging Diagonstic Imaging: Xray Plain Films/CT/US/NM/MRI: chest (1v) Reviewed: Reviewed by Me (ZURI STEEN) Comments [facility] [place], [place] NAME: ISAC BIRD [facility] REC#: [id number] PT STATUS: REG ER : 1950 PHYSICIAN: ZURI STEEN MD ADMIT DATE: 01/07/18/ER Draft Date of Exam:01/07/18 CHEST 1 VIEW, AP/PA ONLY INDICATION: Vomiting, atrial fibrillation, shortness of air EXAMINATION: Chest 01/07/2018 COMPARISON: 09/12/2017 FINDINGS: There is cardiomegaly and pulmonary vascular congestion. Mild findings of pulmonary edema noted bilaterally with no infiltrates or effusions. There is no pneumothorax. Left-sided pacemaker stable. IMPRESSION: 1. Findings of pulmonary edema with marked cardiomegaly noted. Dictated on workstation # [id number] Dict: 01/07/18 0737 Trans: 01/07/18 0756 [place] [id number] Interpreted by: SALENA RODRIGUEZ MD Electronically signed by: Diagonstic Imaging: CT Plain Films/CT/US/NM/MRI: abdomen, pelvis Comments [facility] [address], [place] NAME: ISAC BIRD [facility] REC#: [id number] PT STATUS: REG ER : 1950 PHYSICIAN: ZURI STEEN MD ADMIT DATE: 01/07/18/ER Draft Date of Exam:01/07/18 CT ABDOMEN/PELVIS W EXAMINATION: CT abdomen and pelvis with contrast dated 01/07/2018. TECHNIQUE: Multiple contiguous axial images were obtained through the abdomen and pelvis after administration of intravenous contrast. INDICATION: Atrial fibrillation, shortness of air, abdominal distention, history of total hysterectomy. COMPARISON: 09/25/2017. FINDINGS: The liver demonstrates fatty infiltration. There appears to be reflux of contrast into the IVC and intrahepatic vessels suggesting some component of failure, correlate with history. Abdominal aorta demonstrates no acute disease. There is a small amount of free fluid in the pelvis, nonspecific. No free air appreciated in the abdomen or pelvis. There are stones in the gallbladder which is slightly distended if there is concern for acute cholecystitis, sonography could better characterize. There is diffuse diverticular disease with no evidence for acute diverticulitis. There is no focal inflammatory change about the visualized bowel loops. The lung bases demonstrate no evidence for acute abnormality. There is no acute osseous abnormality. There is some ascites immediately adjacent to the liver. Adrenal glands are unremarkable. Kidneys demonstrate no acute disease. Spleen is unremarkable. Pancreas within normal limits. IMPRESSION: 1. Cholelithiasis. If there is concern for acute cholecystitis, sonography recommended. 2. Ascites. 3. Diffuse other incidental findings as described above. Marked heterogeneity of the liver is noted on the delayed imaging not mentioned above. This could be due to areas of fatty infiltration. Underlying infiltrative process is difficult to exclude given this finding is new since a study dated 12/08/2016. Dedicated imaging of the liver would be recommended using a liver protocol CT or sonography. Clinical exclusion of a possible infiltrative metastatic process would be recommended. Dictated on workstation # [id number] Dict: 01/07/18 0732 Trans: 01/07/18 0748 [facility] [id number] Interpreted by: SALENA RODRIGUEZ MD Electronically signed by: (KWAME QUEEN MD) Transfer of Care Time: 06:00 Care transferred to: Pablo (ZURI STEEN) Departure Communication (Admissions) Time/Spoke to Admitting Phy: 08:10 (KWAME QUEEN MD) Impression Primary Impression: Urinary tract infection Qualified Codes: N30.01 - Acute cystitis with hematuria Additional Impressions: Severe sepsis Acute cholecystitis Disposition: ADMITTED INPATIENT Condition: Stable Admissions Decision to Admit Reason: Admit from ER (General) Decision to Admit/Date: Jan 07, 2018 Time/Decision to Admit Time: 08:10 (KWAME QUEEN MD) Departure-Patient Inst. Referrals: DEYA BLANCO MD (PCP/Family) Primary Care Physician ZURI STEEN Jan 07, 2018 05:43 KWAME QUEEN MD Jan 07, 2018 06:57
[2018-01-07] MEDS ORDERED: ASPIRIN 81 MG CHEW (CHILDREN'S ASA) PO ONE (05:45)
[2018-01-07] MEDS ORDERED: ONDANSETRON 4 MG/2 ML (SDV) Z0FRAN IVP ONE (05:45)
[2018-01-07 05:48] LABS: BASOPHILS % (AUTO) 0 % (0-10); EOSINOPHILS # (AUTO) 0.1 10^3/uL (0.0-0.3); EOSINOPHILS % (AUTO) 1 % (0-10); HEMATOCRIT 40 % (35-52); HEMOGLOBIN 12.9 G/DL (11.5-16.0); LYMPHOCYTES # (AUTO) 3.5 X 10^3 (1.0-4.0); LYMPHOCYTES % (AUTO) 35 % (12-44); MEAN CORPUSCULAR HEMOGLOBIN 28 PG (25-34); MEAN CORPUSCULAR HGB CONC 32 G/DL (32-36); MEAN CORPUSCULAR VOLUME 86 FL (80-99); MEAN PLATELET VOLUME 10.1 FL (7.4-10.4); MONOCYTES # (AUTO) 0.6 X 10^3 (0.0-1.0); MONOCYTES % (AUTO) 6 % (0-12); NEUTROPHILS # (AUTO) 5.7 X 10^3 (1.8-7.8); NEUTROPHILS % (AUTO) 57 % (42-75); PLATELET COUNT 367 10^3/uL (130-400); RED BLOOD COUNT 4.66 10^6/uL (4.35-5.85)
[2018-01-07] MEDS ORDERED: ESCI10TA55 (05:49)
[2018-01-07 05:52] LABS: INR 2.1 (0.8-1.4)
[2018-01-07 05:59] LABS: ALANINE AMINOTRANSFERASE 13 U/L (0-55); ALBUMIN 4.4 GM/DL (3.2-4.5); ALKALINE PHOSPHATASE 102 U/L (40-136); BILIRUBIN,TOTAL 1.1 MG/DL (0.1-1.0); BUN/CREATININE RATIO 15; CALCIUM 9.4 MG/DL (8.5-10.1); CARBON DIOXIDE 20 MMOL/L (21-32); CHLORIDE 102 MMOL/L (98-107); CREATININE SERUM 1.08 MG/DL (0.60-1.30); GFR ESTIMATED 51; GLUCOSE 180 MG/DL (70-105); LIPASE 21 U/L (8-78); MAGNESIUM 1.8 MG/DL (1.8-2.4); POTASSIUM 3.7 MMOL/L (3.6-5.0); SODIUM 141 MMOL/L (135-145); TOTAL PROTEIN 7.2 GM/DL (6.4-8.2)
[2018-01-07] MEDS ORDERED: ONDANSETRON 4 MG/2 ML (SDV) Z0FRAN IVP PRN (06:00)
[2018-01-07] MEDS ORDERED: PIPERACILLIN/TAZOBACTAM 3.375 GM in NS (IVPB) 100 ML IV ONE (06:00)
[2018-01-07 06:40] LABS: BILIRUBIN,URINE NEGATIVE (NEGATIVE); CLARITY,URINE CLEAR; COLOR,URINE YELLOW; GLUCOSE, URINE (UA) NEGATIVE (NEGATIVE); KETONES,URINE NEGATIVE (NEGATIVE); LEUKOCYTE ESTERASE ,URINE 2+ (NEGATIVE); NITRITE,URINE NEGATIVE (NEGATIVE); PH,URINE 5 (5-9); PROTEIN,URINE 3+ (NEGATIVE); UROBILINOGEN,URINE NORMAL (NORMAL)
[2018-01-07 07:08] LABS: RBC,URINE 0-2 /HPF
[2018-01-07 07:09] LABS: BACTERIA,URINE TRACE /HPF; WBC,URINE 25-50 /HPF
--- NOTE | 2018-01-07 07:49 | Diagnostic Imaging Report ---
EXAMINATION: CT abdomen and pelvis with contrast dated 01/07/2018. TECHNIQUE: Multiple contiguous axial images were obtained through the abdomen and pelvis after administration of intravenous contrast. INDICATION: Atrial fibrillation, shortness of air, abdominal distention, history of total hysterectomy. COMPARISON: 09/25/2017. FINDINGS: The liver demonstrates fatty infiltration. There appears to be reflux of contrast into the IVC and intrahepatic vessels suggesting some component of failure, correlate with history. Abdominal aorta demonstrates no acute disease. There is a small amount of free fluid in the pelvis, nonspecific. No free air appreciated in the abdomen or pelvis. There are stones in the gallbladder which is slightly distended if there is concern for acute cholecystitis, sonography could better characterize. There is diffuse diverticular disease with no evidence for acute diverticulitis. There is no focal inflammatory change about the visualized bowel loops. The lung bases demonstrate no evidence for acute abnormality. There is no acute osseous abnormality. There is some ascites immediately adjacent to the liver. Adrenal glands are unremarkable. Kidneys demonstrate no acute disease. Spleen is unremarkable. Pancreas within normal limits. IMPRESSION: 1. Cholelithiasis. If there is concern for acute cholecystitis, sonography recommended. 2. Ascites. 3. Diffuse other incidental findings as described above. Marked heterogeneity of the liver is noted on the delayed imaging not mentioned above. This could be due to areas of fatty infiltration. Underlying infiltrative process is difficult to exclude given this finding is new since a study dated 12/08/2016. Dedicated imaging of the liver would be recommended using a liver protocol CT or sonography. Clinical exclusion of a possible infiltrative metastatic process would be recommended. Dictated by: Dictated on workstation # [id number]
--- NOTE | 2018-01-07 07:56 | Diagnostic Imaging Report ---
INDICATION: Vomiting, atrial fibrillation, shortness of air EXAMINATION: Chest 01/07/2018 COMPARISON: 09/12/2017 FINDINGS: There is cardiomegaly and pulmonary vascular congestion. Mild findings of pulmonary edema noted bilaterally with no infiltrates or effusions. There is no pneumothorax. Left-sided pacemaker stable. IMPRESSION: 1. Findings of pulmonary edema with marked cardiomegaly noted. Dictated by: Dictated on workstation # [id number]
--- NOTE | 2018-01-07 09:18 | Diagnostic Imaging Report ---
PROCEDURE: US Gallbladder. TECHNIQUE: Multiple real-time grayscale images were obtained over the right upper quadrant in various projections. INDICATION: Right upper quadrant pain and vomiting. FINDINGS: The liver is normal in size at 14.4 cm. No discrete liver mass is identified. The gallbladder does contain small stones. There is gallbladder wall thickening measuring up to 5 mm. There is pericholecystic fluid present as well. No definite biliary ductal dilatation is seen. The pancreas was obscured. The right kidney is unremarkable. There is no ascites. IMPRESSION: Cholelithiasis and gallbladder wall thickening, suspicious for acute cholecystitis. No other significant abnormality is detected. Dictated by: Dictated on workstation # [id number]
[2018-01-07] MEDS ORDERED: ONDANSETRON 4 MG/2 ML (SDV) Z0FRAN IV PRN (09:45)
[2018-01-07] MEDS ORDERED: fentaNYL INJECTION 100 MCG/2 ML AMP IVP PRN (10:00)
[2018-01-07] MEDS ORDERED: BUPIVACAINE 0.5% 30 ML (SENSORCAINE) VIAL ONE (10:10)
[2018-01-07] MEDS ORDERED: LIDOCAINE 1% INJ 20 ML 20 ML VIAL ONE (10:10)
--- NOTE | 2018-01-07 10:14 | Consultation ---
History of Present Illness History of Present Illness Patient Consulted On(jess/time) 01/07/18 10:09 Date Seen by Provider: Jan 07, 2018 Time Seen by Provider: 10:11 History of Present Illness consult requested by Dr. Shah for cholecystitis Patient is a 67-year-old female who presented to the emergency department just not feeling well. She's been having nausea and vomiting today. She is having pain in the upper portion of her abdomen and also pain that moves around towards her back. She states that food makes it worse. She rates it moderate to severe. Patient states that she's been having issues for quite some time. She is also having some difficulty breathing but attributes this to possibly her C Pap. She also feels more bloated. Patient states that for approximately the last year she's been having problems with upper abdominal pain. She's also been recently treated for diverticulitis. patient states it really nothing has made things better. She denies any fever sweats chills or chest pain. Patient is on Coumadin for atrial fibrillation, and she's had [address] scan demonstrating some possible fatty infiltration of the liver so slight ascites and cholelithiasis. Her ultrasound of the gallbladder demonstrating normal-appearing liver with and thickening of gallbladder, cholelithiasis,an pericholecystic fluid. Allergies and Home Medications Allergies Coded Allergies: rosuvastatin (Unverified Allergy, Mild, 01/24/17) Sulfa (Sulfonamide Antibiotics) (Verified Allergy, Unknown, 01/24/17) Home Medications Acetaminophen/Diphenhydramine 1 Ea Tab, 1 TAB PO HS, (Reported) Alprazolam 0.5 Mg Tablet, 0.25 MG PO TID PRN for ANXIETY, (Reported) TAKES 1/2 OF A (0.5 MG) TABLET Atorvastatin Calcium 40 Mg Tablet, 40 MG PO HS, (Reported) Cholecalciferol 5,000 Unit Capsule, 5,000 UNIT PO DAILY, (Reported) Escitalopram Oxalate 20 Mg Tablet, 10-20 MG PO DAILY, (Reported) TAKES 1/2-1 OF A (20 MG) TABLET Furosemide 20 Mg Tablet, 20 MG PO DAILY, (Reported) Metoprolol Succinate 25 Mg Tab.er.24h, 25 MG PO DAILY, (Reported) Mexiletine HCl 200 Mg Capsule, 200 MG PO BID, (Reported) Pantoprazole Sodium 40 Mg Tablet.dr, 40 MG PO DAILY, (Reported) Phenazopyridine HCl 95 Mg Tablet, 95 MG PO DAILY, (Reported) Spironolactone 25 Mg Tablet, 25 MG PO DAILY, (Reported) Warfarin Sodium 5 Mg Tablet, 5 MG PO SuTuThSa, (Reported) Patient Home Medication List Home Medication List Reviewed: Yes Past Mndzzct-Qggrcw-Yqznva Hx Patient Social History Alcohol Use: Denies Use Recreational Drug Use: No Smoking Status: Never a Smoker 2nd Hand Smoke Exposure: Yes Recent Foreign Travel: No Contact w/Someone Who Travel: No Recent Infectious Disease Expo: No Recent Hopitalizations: No Immunizations Up To Date Tetanus Booster (TDap): Less than 5yrs PED Vaccines UTD: No Date of Influenza Vaccine: Apr 17, 2017 Seasonal Allergies Seasonal Allergies: No Surgeries History of Surgeries: Yes (HYST,BREAST REDUCTION,OOPH.,RECTOCELE) Surgeries: Cardiac, Hysterectomy, Oophorectomy, Pacemaker, Tonsillectomy Respiratory History of Respiratory Disorde: Yes Respiratory Disorders: Sleep Apnea Cardiovascular History of Cardiac Disorders: Yes Cardiac Disorders: Atrial Fibrillation, High Cholesterol, Hypertension Neurological History of Neurological Disord: No Reproductive System Hx Reproductive Disorders: No (X1 MISCARRIAGE) Sexually Transmitted Disease: No HIV/AIDS: No 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 Genitourinary History of Genitourinary Disor: Yes Genitourinary Disorders: UTI-Chronic Gastrointestinal History of Gastrointestinal Di: Yes (HX C-DIFF) Gastrointestinal Disorders: Gastroesophageal Reflux, Diverticulosis Musculoskeletal History of Musculoskeletal Dis: Yes (OCC.GOES TO CHIROPRACTOR) Endocrine History of Endocrine Disorders: No HEENT Loss of Vision: Bilateral Hearing Impairment: Denies Cancer History of Cancer: No Psychosocial History of Psychiatric Problem: Yes Behavioral Health Disorders: Anxiety, Depression Integumentary History of Skin or Integumenta: No Blood Transfusions History of Blood Disorders: No Adverse Reaction to a Blood Tr: No Family Medical History Significant Family History: Heart Disease, CAD Under 55 Years Old Review of Systems-General Constitutional: no symptoms reported Respiratory: short of breath Cardiovascular: no symptoms reported Gastrointestinal: see HPI Genitourinary: no symptoms reported Musculoskeletal: back pain Skin: no symptoms reported Psychiatric/Neurological: No Symptoms Reported Physical Exam-General Problems Physical Exam Vital Signs Vital Signs - First Documented 01/07/18 01/07/18 05:26 06:10 Temp 96.1 Pulse 76 Resp 26 B/P (MAP) 177/84 (115) Pulse Ox 99 O2 Delivery Room Air O2 Flow Rate 2.00 Capillary Refill : Less Than 3 Seconds General Appearance: no apparent distress HEENT: PERRL/EOMI, normal ENT inspection Neck: supple Respiratory: lungs clear, no respiratory distress, no accessory muscle use Cardiovascular: regular rate, rhythm Gastrointestinal: soft, tenderness (right upper quadrant) Rectal: deferred Back: normal inspection Extremities: non-tender, normal inspection 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, no motor/sensory deficits, alert, normal mood/affect, oriented x 3 Skin: warm/dry Lymphatic: no adenopathy Data Review Labs Laboratory Tests 01/07/18 05:35: White Blood Count 10.0, Red Blood Count 4.66, Hemoglobin 12.9, Hematocrit 40, Mean Corpuscular Volume 86, Mean Corpuscular Hemoglobin 28, Mean Corpuscular Hemoglobin Concent 32, Red Cell Distribution Width 17.0H, Platelet Count 367, Mean Platelet Volume 10.1, Neutrophils (%) (Auto) 57, Lymphocytes (%) (Auto) 35 , Monocytes (%) (Auto) 6, Eosinophils (%) (Auto) 1, Basophils (%) (Auto) 0, Neutrophils # (Auto) 5.7, Lymphocytes # (Auto) 3.5, Monocytes # (Auto) 0.6, Eosinophils # (Auto) 0.1, Basophils # (Auto) 0.0, Prothrombin Time 24.0H, INR Comment 2.1H, Activated Partial Thromboplast Time 30, Sodium Level 141, Potassium Level 3.7, Chloride Level 102, Carbon Dioxide Level 20L, Anion Gap 19H , Blood Urea Nitrogen 16, Creatinine 1.08, Estimat Glomerular Filtration Rate 51 , BUN/Creatinine Ratio 15, Glucose Level 180H, Lactic Acid Level 4.37*H, Calcium Level 9.4, Magnesium Level 1.8, Total Bilirubin 1.1H, Aspartate Amino Transf (AST/SGOT) 23, Alanine Aminotransferase (ALT/SGPT) 13, Alkaline Phosphatase 102, Troponin I < 0.30, B-Type Natriuretic Peptide 418.0H, Total Protein 7.2, Albumin 4.4, Lipase 21 01/07/18 06:35: Urine Color YELLOW, Urine Clarity CLEAR, Urine pH 5, Urine Specific [place] 1.015L, Urine Protein 3+H, Urine Glucose (UA) NEGATIVE, Urine Ketones NEGATIVE, Urine Nitrite NEGATIVE, Urine Bilirubin NEGATIVE, Urine Urobilinogen NORMAL, Urine Leukocyte Esterase 2+H, Urine RBC (Auto) 5+H, Urine RBC 0-2, Urine WBC 25- 50H, Urine Squamous Epithelial Cells 5-10, Urine Crystals NONE, Urine Bacteria TRACE, Urine Casts PRESENT, Urine Hyaline Casts 2-5H, Urine Mucus NEGATIVE, Urine Culture Indicated YES 01/07/18 07:05: Lactic Acid Level 1.84 Microbiology 01/07/18 Urine Culture - Preliminary, Resulted Sent To [facility] Assessment/Plan Assessment/Plan Assessment/Plan right upper quadrant abdominal pain nausea and vomiting cholelithiasis with cholecystitis chronic Coumadin use UTI patient inr elevated will give ffp to reverse discussed risks and benefits of laparoscopic cholecystectomy intraoperative cholangiogram possible open all other indicated procedures patient to or npo lactic acid redrawn and normal on SARAI Frank DO Jan 07, 2018 10:14
[2018-01-07] MEDS ORDERED: fentaNYL INJECTION 100 MCG/2 ML AMP ONE (10:27)
[2018-01-07] MEDS ORDERED: MIDAZOLAM 2 MG/2 ML (VERSED) VIAL ONE (10:27)
[2018-01-07] MEDS ORDERED: DEXAMETHASONE 10 MG/ML (DECADRON) 1 ML VIAL ONE (10:29)
[2018-01-07] MEDS ORDERED: LIDOCAINE PF 2% 5 ML (XYLOCAINE) VIAL ONE (10:29)
[2018-01-07] MEDS ORDERED: proPOfol 200 MG/20 ML (DIPRIVAN) VIAL IV ONE (10:29)
[2018-01-07] MEDS ORDERED: SEVOFLURANE (ULTANE) 15 ML INHAL SOLN ONE ×10 (10:29→14:50)
[2018-01-07] MEDS ORDERED: LACTATED RINGERS 1,000 ML IV PRN (10:36)
[2018-01-07] MEDS ORDERED: ROCURONIUM 10 MG/ML 5 ML SYRINGE IV ONE ×2 (12:23→13:54)
[2018-01-07] MEDS ORDERED: PHENYLEPHRINE 100 MCG/ML 10 ML (ANESTHESIA) SYR ONE (12:41)
[2018-01-07] MEDS ORDERED: NEOSTIGMINE 1 MG/ML 5 ML SYRINGE ONE (13:04)
[2018-01-07] MEDS ORDERED: GLYCOPYRROLATE 0.2 MG/ML (ROBINUL) 2 ML VIAL ONE (13:04)
[2018-01-07] MEDS ORDERED: FURO20TA4 PO (13:59)
[2018-01-07] MEDS ORDERED: AMIO200T4 PO (13:59)
[2018-01-07] MEDS ORDERED: ESCI20TA45 PO (13:59)
[2018-01-07] MEDS ORDERED: THROMBIN SPRAY KIT 5,000 UNIT VIAL ONE (14:10)
--- NOTE | 2018-01-07 14:25 | Diagnostic Imaging Report ---
INDICATION: Fluoroscopy during intraoperative cholangiogram. TECHNIQUE: Fluoroscopy was provided in the OR during intraoperative cholangiogram. 8 seconds of fluoroscopy was utilized. FINDINGS: Images demonstrate contrast being injected via the cystic duct remnant. The extrahepatic bile duct is opacified. The intrahepatic ducts are opacified. No filling defects are seen to suggest a retained stone. There is flow into the duodenum. IMPRESSION: Fluoroscopy during intraoperative cholangiogram. Dictated by: Dictated on workstation # [id number]
[2018-01-07] MEDS ORDERED: morphine INJ 10 MG/ML 1ML (SYR OR VIAL) ONE (14:39)
[2018-01-07] MEDS: PIPERACILLIN/TAZO 3.375 GM/D5W 100 ML IV SCH ×4 (14:45→20:35)
[2018-01-07 15:08] LABS: HEMOGLOBIN 8.8 G/DL (11.5-16.0)
--- NOTE | 2018-01-07 15:23 | Diagnostic Imaging Report ---
INDICATION: Postop instrument count. EXAMINATION: KUB at 3:07 PM. FINDINGS: The gallbladder appears to be surgically absent. There are multiple skin tessa present. There are no radiopaque surgical instruments. IMPRESSION: The postop KUB does not show any radiopaque surgical instruments. Dictated by: Dictated on workstation # [id number]
[2018-01-07 15:25] LABS: INR 2.6 (0.8-1.4); PROTHROMBIN TIME PATIENT 27.8 SEC (12.2-14.7)
[2018-01-07] MEDS ORDERED: NS IV 1000 ML 1,000 ML IV PRN (15:30)
[2018-01-07] MEDS ORDERED: NS IV 500 ML 500 ML IV PRN (15:30)
[2018-01-07] MEDS: morphine INJ 10 MG/ML 1ML (SYR OR VIAL) IVP PRN ×2 (16:25→16:30)
[2018-01-07] MEDS ORDERED: HYDROmorphone 1 MG/ML (DILAUDID) 1 ML SYRINGE IV PRN (16:30)
--- NOTE | 2018-01-07 17:02 | Pulmonary Consultation ---
History of Present Illness History of Present Illness Date of Consultation 01/07/18 16:56 Time Seen by Provider: 16:56 Date of Admission History of Present Illness 67 yo with hx of MY, diverticulitis, Afib presented to ED secondary to n/v and abdominal pain. Pt was also complaining of worsening SOB. Pt was dx with acute cholecystis after imaging. Pt is now s/p cholecystectomy. Surgery was complicated by bleeding and surgery was converted to an open procedure. Pt is now on ventilator post op and appears to be in pain. I am consulted for ICU management. Allergies and Home Medications Allergies Coded Allergies: rosuvastatin (Unverified Allergy, Mild, 01/24/17) Sulfa (Sulfonamide Antibiotics) (Verified Allergy, Unknown, 01/24/17) Home Medications Acetaminophen/Diphenhydramine 1 Ea Tab, 1 TAB PO HS, (Reported) Alprazolam 0.5 Mg Tablet, 0.25 MG PO TID PRN for ANXIETY, (Reported) TAKES 1/2 OF A (0.5 MG) TABLET Amiodarone HCl 200 Mg Tablet, 400 MG PO DAILY, (Reported) take 2 (200 mg) tablets once daily with food Atorvastatin Calcium 40 Mg Tablet, 40 MG PO HS, (Reported) Cholecalciferol 5,000 Unit Capsule, 5,000 UNIT PO DAILY, (Reported) Escitalopram Oxalate 20 Mg Tablet, 20 MG PO DAILY, (Reported) Furosemide 20 Mg Tablet, 20 MG PO ON EVEN DAYS, (Reported) Furosemide 20 Mg Tablet, 40 MG PO ON ODD DAYS, (Reported) TAKE 2 (20 MG) TABLETS ON ODD DAYS Metoprolol Succinate 25 Mg Tab.er.24h, 25 MG PO DAILY, (Reported) Mexiletine HCl 200 Mg Capsule, 200 MG PO BID, (Reported) Pantoprazole Sodium 40 Mg Tablet.dr, 40 MG PO DAILY, (Reported) Spironolactone 25 Mg Tablet, 25 MG PO DAILY, (Reported) Warfarin Sodium 5 Mg Tablet, 5 MG PO SuTuThSa, (Reported) Past Mczcpqy-Yxrvks-Mfkfvl Hx Patient Social History Alcohol Use: Denies Use Recreational Drug Use: No Smoking Status: Never a Smoker 2nd Hand Smoke Exposure: Yes Recent Foreign Travel: No Contact w/Someone Who Travel: No Recent Infectious Disease Expo: No Recent Hopitalizations: No Immunizations Up To Date Tetanus Booster (TDap): Less than 5yrs PED Vaccines UTD: No Date of Influenza Vaccine: Apr 17, 2017 Seasonal Allergies Seasonal Allergies: No Past Medical History Surgeries: Yes (HYST,BREAST REDUCTION,OOPH.,RECTOCELE) Cardiac, Hysterectomy, Oophorectomy, Pacemaker, Tonsillectomy Respiratory: Yes Sleep Apnea Currently Using CPAP: Yes Cardiac: Yes Atrial Fibrillation, High Cholesterol, Hypertension Neurological: No Reproductive Disorders: No (X1 MISCARRIAGE) 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 Sexually Transmitted Disease: No HIV/AIDS: No Genitourinary: Yes UTI-Chronic Gastrointestinal: Yes (HX C-DIFF) Gastroesophageal Reflux, Diverticulosis Musculoskeletal: Yes (OCC.GOES TO CHIROPRACTOR) Endocrine: No Loss of Vision: Bilateral Hearing Impairment: Denies Cancer: No Psychosocial: Yes Anxiety, Depression Integumentary: No Blood Disorders: No Adverse Reaction/Blood Tranf: No Family Medical History Heart Disease, CAD Under 55 Years Old Review of Systems Time Seen by Provider: 17:22 Exam Exam Vital Signs Date Time Temp Pulse Resp B/P (MAP) Pulse Ox O2 Delivery O2 Flow Rate FiO2 01/07/18 15:50 71 16 100 100 01/07/18 12:00 97.6 71 18 145/67 (93) 92 Room Air 01/07/18 11:49 97.6 70 128/64 95 Room Air 01/07/18 11:36 97.6 71 145/67 92 Room Air 01/07/18 09:25 95 Room Air 01/07/18 09:00 70 14 144/92 99 Room Air 01/07/18 06:10 96 Nasal Cannula 2.00 01/07/18 05:26 96.1 76 26 177/84 (115) 99 Room Air General Appearance: Moderate Distress HEENT: TMs Normal, Pharynx Normal Neck: Full Range of Motion, Normal Inspection, Non Tender, Supple Respiratory: Chest Non Tender, No Accessory Muscle Use, No Respiratory Distress , Decreased Breath Sounds Cardiovascular: Regular Rate, Rhythm, No Edema, No Gallop, No JVD, No Murmur Capillary Refill: Less Than 3 Seconds Peripheral Pulses: 2+ Radial Pulses (R), 2+ Radial Pulses (L) Gastrointestinal: soft, tenderness Extremity: Normal Capillary Refill, Normal Inspection Skin: Normal Color, Warm/Dry Lymphatic: No Adenopathy Results Lab Laboratory Tests 01/07/18 05:35 01/07/18 14:54 Assessment/Plan Assessment/Plan Acute respiratory failure with pink frothy sputum -Check echo -Decrease IVF to 75cc/hr -Continue ventilator support -Propofol an fentanyl gtt cholelithiasis with cholecystitis s/p cholecystectomy -Continue to monitor for bleeding -Pain control HTN -Will increase sedation -I believe patient is currently in pain -Will start Diprivan gtt and propofol gtt Anemia - post op -S/p 2 units PRBC AFib with coumadin coagulopathy -S/p 2 units of PRBC and 2 units of FFP nausea and vomiting UTI 60min spent with patient medical staff. I discussed patient with Dr. Carter and anesthesia. Will leave patient on vent for tonight. Critical Care: Critically Ill Patient Time spent with patient (mins): 60 JENNIFER LERMA DO Jan 07, 2018 17:02
[2018-01-07 17:06] LABS: ABG BASE EXCESS -5.1 MMOL/L (-2.5-2.5); ABG OXYGEN SATURATION 100 % (94-100); ABG PCO2 30 MMHG (35-45); ABG PH 7.41 (7.37-7.43); ABG PO2 138 MMHG (79-93)
[2018-01-07] MEDS ORDERED: PROPOFOL DRIP (ICU) 100 ML IV ONE (17:06)
[2018-01-07 17:08] LABS: INSPIRED O2 40%; PATIENT TEMP 96.4; VENTILATOR YES
[2018-01-07] MEDS ORDERED: fentaNYL INJECTION 1,250 MCG in NS (IVPB) 225 ML IV SCH (17:15)
[2018-01-07] MEDS: PROPOFOL DRIP (ICU) 100 ML IV SCH ×2 (17:27→23:15)
--- NOTE | 2018-01-07 17:34 | Progress Note-Post Operative ---
Post-Operative Progess Note Surgeon (s)/Video Effects Editor (s) Surgeon SARAI TOBIAS DO Video Effects Editor: Dr. Pham Pre-Operative Diagnosis cholelithiasis, cholecystitis Post-Operative Diagnosis cholelithisiasis, cholecystitis, bleeding venous sinus of liver Procedure & Operative Findings Date of Procedure 01/07/18 Procedure Performed/Findings laparoscopic cholecystectomy, with intraoperative cholangiogram, open control of bleeding venous sinus of liver Anesthesia Type gen Estimated Blood Loss Estimated blood loss (mL): 1200mL Specimens/Packing Specimens Removed gallbladder, mucinous tissue Packing: surgicil, gelfoam and thrombin, floseal SARAI TOBIAS DO Jan 07, 2018 17:34
[2018-01-07] MEDS ORDERED: VITAMIN K 1 MG/ML ORAL SOLN 1 ML SYRINGE PO NR (17:45)
[2018-01-07] MEDS: fentaNYL INJECTION 1,250 MCG in NS (IVPB) 250 ML IV SCH (17:57)
[2018-01-07] MEDS: NS IV 1000 ML 1,000 ML IV SCH (18:13)
[2018-01-08] VITALS (29 sets, daily range): BP systolic 92–160; BP diastolic 45–82
--- NOTE | 2018-01-08 02:45 | OPERATIVE REPORT ---
DATE OF SERVICE: 01/07/2018 PREOPERATIVE DIAGNOSES: Cholelithiasis, cholecystitis. POSTOPERATIVE DIAGNOSES: Cholelithiasis, cholecystitis, bleeding venous liver sinus. PROCEDURE: Laparoscopic cholecystectomy with intraoperative cholangiogram converted to open with control of bleeding venous liver sinus. SURGEON: Kehinde Moran DO. STOCK BROKER: Dr. Pham, assisted in retraction, dissection and closure. ANESTHESIA: General. ESTIMATED BLOOD LOSS: 1200 mL. INDICATIONS: The patient is a 67-year-old female who has been feeling ill for approximately a year on and off. She recently was having more upper quadrant abdominal pain and some back pain and some shortness of breath. She did have more distention. She has CT scan demonstrating some ascites and some thickening, some pericholecystic fluid around the gallbladder. She had ultrasound demonstrating gallstones, pericholecystic fluid and a thickened gallbladder wall. The patient is on Coumadin and was given fresh frozen plasma to reverse. She was also explained risks and benefits of procedure and wished to proceed with procedure. Consent was signed on the chart. DESCRIPTION OF PROCEDURE: The patient was taken to the operating suite. She was prepped and draped in sterile fashion. Surgical pause was performed. Local anesthetic was infiltrated just above the umbilicus. An 11 blade scalpel was used to make a skin incision and cautery used to dissect down to the fascia, which was then scored, grasped with Kochers and elevated. The abdomen was then entered. A 0 Vicryl was placed in a [id number] fashion for closure at the end. A balloon trocar was inserted in the abdomen and pneumoperitoneum was achieved. The camera was inserted into the abdomen noting a significant amount of fluid and gelatinous appearing material around the gallbladder. Under direct visualization of the laparoscope, a 5 mm trocar was placed in the subxiphoid region and two 5 mm trocars were placed in the right upper quadrant. Gallbladder was grasped, it was slightly extended. It was thickened appearing and consistent with cholecystitis. Cystic artery and cystic duct were then dissected out the artery. The cystic duct had a clip placed on the distal portion of duct and then partially transected. Also of note there was a small cyst off of the liver right next to the gallbladder on the right side to the liver. After the duct was partially transected. Arrow catheter was inserted and when balloon was insufflated, the cystic duct was extremely friable and it tore a portion of the cystic duct. The catheter was able to be inserted further and cholangiogram was able to be performed. There were no filling defects. Contrast made its way into the duodenum without difficulty. In this process, the cystic duct did completely transect and the catheter was removed. An Endo-knot was used to tie off the cystic duct and the Endo-knot was then placed on the more proximal portion of the cystic duct. The cystic artery had clips placed on the proximal and distal portion and this was then transected. Hook cautery was then used to dissect the gallbladder from the gallbladder fossa. As this was continued to be mobilized off the gallbladder fossa, in this plane, there was a venous sinus which was cauterized which then began bleeding. A 4 x 4 was inserted in the abdomen and held pressure on. This does not stop the bleeding. Therefore, gallbladder has continued to be mobilized off the liver bed for better visualization. Surgicel and Gelfoam were inserted into the end of this area and pressure was held for approximately 15 minutes and still unable to get the bleeding to stop. At this time, it was determined this was not going to get venous sinus controlled and we converted to open. An incision was made in the right upper quadrant and the abdomen was entered using cautery. The better visualization was obtained after opening. There is a larger venous sinus present, which cautery was then used to gain control of the bleeding and Surgicel and Gelfoam was inserted in this area and the area was packed for another about 15 minutes. The area was reinspected. There is still slight ooze within the area. At this point, this area was then irrigated and suctioned and Gelfoam thrombin along with Surgicel and Gelfoam were all packed within the gallbladder fossa and held again. This area was reinspected and hemostasis had been achieved. The abdomen was then irrigated and suctioned. The liver bed was then reinspected again with no evidence of any further bleeding. The peritoneum and the fascia were then closed with 0 Vicryl suture in a running fashion. The anterior fascia was then closed using 1-0 looped PDS. The abdomen was then reinsufflated and the abdomen was inspected again noting that hemostasis had been achieved. The abdomen was irrigated and suctioned. No other pathology noted. During the initial portion of the case, there was a small mucinous tissue present, which was obtained for pathology. The abdomen was then desufflated. The 12 mm fascial defect was closed with the previously placed 0 Vicryl. The abdomen was then washed and dried. [place] were placed for skin closure. The patient during the case also received a second unit of fresh frozen plasma and after the case was started giving 1 unit packed red blood cells. The patient was sent to the ICU in critical condition. Job ID: [id number] DocumentID: [id number] Dictated Date: 01/08/2018 00:16:39 Vein Pumper Date: 01/08/2018 02:45:16 Dictated By: DO DEIDRA SOLIS
[2018-01-08 03:28] LABS: BASOPHILS % (AUTO) 0 % (0-10); EOSINOPHILS % (AUTO) 0 % (0-10); HEMATOCRIT 29 % (35-52); HEMOGLOBIN 9.3 G/DL (11.5-16.0); LYMPHOCYTES # (AUTO) 0.7 X 10^3 (1.0-4.0); LYMPHOCYTES % (AUTO) 10 % (12-44); MEAN CORPUSCULAR HEMOGLOBIN 28 PG (25-34); MEAN CORPUSCULAR HGB CONC 32 G/DL (32-36); MEAN CORPUSCULAR VOLUME 87 FL (80-99); MEAN PLATELET VOLUME 10.3 FL (7.4-10.4); MONOCYTES # (AUTO) 0.2 X 10^3 (0.0-1.0); MONOCYTES % (AUTO) 3 % (0-12); NEUTROPHILS % (AUTO) 87 % (42-75); PLATELET COUNT 231 10^3/uL (130-400); RED BLOOD COUNT 3.36 10^6/uL (4.35-5.85); RED CELL DISTRIBUTION WIDTH 16.7 % (10.0-14.5)
[2018-01-08 03:28] LABS: ABG BASE EXCESS -0.5 MMOL/L (-2.5-2.5); ABG OXYGEN SATURATION 99 % (94-100); ABG PCO2 32 MMHG (35-45); ABG PH 7.46 (7.37-7.43); ABG PO2 115 MMHG (79-93)
[2018-01-08 03:30] LABS: ALLENS TEST ART LINE; INSPIRED O2 30%; PATIENT TEMP 96.9; VENTILATOR YES
[2018-01-08 03:40] LABS: INR 1.7 (0.8-1.4); PROTHROMBIN TIME PATIENT 20.3 SEC (12.2-14.7)
[2018-01-08 03:47] LABS: BUN/CREATININE RATIO 20; CALCIUM 7.3 MG/DL (8.5-10.1); CARBON DIOXIDE 19 MMOL/L (21-32); CHLORIDE 111 MMOL/L (98-107); GFR ESTIMATED > 60; GLUCOSE 134 MG/DL (70-105); MAGNESIUM 1.7 MG/DL (1.8-2.4); POTASSIUM 3.8 MMOL/L (3.6-5.0); SODIUM 143 MMOL/L (135-145)
[2018-01-08] MEDS: PIPERACILLIN/TAZO 3.375 GM/D5W 100 ML IV SCH ×6 (03:48→19:58)
[2018-01-08 03:49] LABS: BILIRUBIN,URINE NEGATIVE (NEGATIVE); CLARITY,URINE VERY CLOUDY; COLOR,URINE YELLOW; GLUCOSE, URINE (UA) NEGATIVE (NEGATIVE); KETONES,URINE NEGATIVE (NEGATIVE); LEUKOCYTE ESTERASE ,URINE 2+ (NEGATIVE); NITRITE,URINE NEGATIVE (NEGATIVE); PH,URINE 5 (5-9); PROTEIN,URINE 2+ (NEGATIVE); UROBILINOGEN,URINE NORMAL (NORMAL)
[2018-01-08 03:55] LABS: BACTERIA,URINE TRACE /HPF; RBC,URINE 50-100 /HPF; SQUAMOUS EPITHELIAL CELL,UR 0-2 /HPF; URIC ACID CRYSTALS,URINE MODERATE /LPF
[2018-01-08 04:02] LABS: CREATININE,URINE 131 MG/DL (30-125); SODIUM URINE RANDOM (IH) < 20 MMOL/L (50-200)
[2018-01-08] MEDS ORDERED: LACTATED RINGERS 1,000 ML IV ONE ×2 (04:53→05:00)
--- NOTE | 2018-01-08 05:31 | Pulmonary Progress Note ---
Subjective Time Seen by Provider: 05:37 Subjective/Events-last exam PT is doing better. daughter at bedside. Focused Exam Lactate Level 01/07/18 05:35: Lactic Acid Level 4.37*H 01/07/18 07:05: Lactic Acid Level 1.84 01/08/18 03:15: Lactic Acid Level 1.15 Lactic Acid Level Laboratory Tests Test 01/08/18 03:15 Lactic Acid Level 1.15 MMOL/L (0.50-2.00) Exam Exam Vital Signs Date Time Temp Pulse Resp B/P (MAP) Pulse Ox O2 Delivery O2 Flow Rate FiO2 01/08/18 04:25 63 30 94/48 (63) 95 Mechanical Ventilator 25.00 01/08/18 04:14 69 16 95 25 01/08/18 04:00 69 16 99/51 (67) 95 Mechanical Ventilator 30.00 01/08/18 04:00 97 Mechanical Ventilator 30 01/08/18 03:00 69 16 99/49 (66) 94 Mechanical Ventilator 30.00 01/08/18 02:19 67 16 94 30 01/08/18 02:00 70 16 106/53 (70) 94 Mechanical Ventilator 30.00 01/08/18 01:00 72 01/08/18 01:00 72 15 103/52 (69) 94 Mechanical Ventilator 30.00 01/08/18 00:01 70 16 94 30 01/08/18 00:00 69 16 100/50 (67) 94 Mechanical Ventilator 30.00 01/08/18 00:00 96 Mechanical Ventilator 35 01/07/18 23:50 98.2 69 16 102/52 95 Mechanical Ventilator 30 01/07/18 23:15 98.0 69 15 102/52 96 Mechanical Ventilator 30.00 01/07/18 23:00 69 16 99/51 (67) 95 Mechanical Ventilator 30.00 01/07/18 22:00 69 15 102/52 (69) 96 Mechanical Ventilator 30.00 01/07/18 21:45 98.0 70 16 95/47 95 Mechanical Ventilator 30 01/07/18 21:30 96.9 69 16 96/48 98 Mechanical Ventilator 30 01/07/18 21:17 69 16 97 35 01/07/18 21:17 69 15 101/49 (66) 95 Mechanical Ventilator 30.00 01/07/18 21:00 69 15 99/49 (66) 97 Mechanical Ventilator 35.00 01/07/18 20:44 98.2 69 16 100/50 97 Mechanical Ventilator 35 01/07/18 20:00 95 Mechanical Ventilator 35 18 20:00 69 15 103/47 (65) 98 Mechanical Ventilator 35.00 18 19:48 96.5 70 16 99/46 (63) 97 Mechanical Ventilator 35.00 01/07/18 19:09 70 16 99 40 01/07/18 19:00 70 16 105/49 (67) 100 Mechanical Ventilator 40.00 01/07/18 19:00 70 01/07/18 18:40 97.5 70 16 112/54 99 Mechanical Ventilator 40 01/07/18 18:26 97.5 69 15 109/49 100 Mechanical Ventilator 40 01/07/18 18:00 69 15 122/63 (82) 100 Mechanical Ventilator 40.00 01/07/18 17:27 156/57 01/07/18 17:15 40 01/07/18 16:45 Mechanical Ventilator 40 01/07/18 16:45 96.4 70 16 149/75 (99) 100 Mechanical Ventilator 40.00 01/07/18 15:50 71 16 100 100 01/07/18 12:00 97.6 71 18 145/67 (93) 92 Room Air 01/07/18 11:49 97.6 70 128/64 95 Room Air 01/07/18 11:36 97.6 71 145/67 92 Room Air 01/07/18 09:25 95 Room Air 01/07/18 09:00 70 14 144/92 99 Room Air 01/07/18 06:10 96 Nasal Cannula 2.00 I & O 01/08/18 07:00 Intake Total 4985 ml Output Total 1785 ml Balance 3200 ml General Appearance: Moderate Distress HEENT: TMs Normal, Pharynx Normal Neck: Full Range of Motion, Normal Inspection, Non Tender, Supple Respiratory: Chest Non Tender, No Accessory Muscle Use, No Respiratory Distress , Decreased Breath Sounds Cardiovascular: Regular Rate, Rhythm, No Edema, No Gallop, No JVD, No Murmur Capillary Refill: Less Than 3 Seconds Peripheral Pulses: 2+ Radial Pulses (R), 2+ Radial Pulses (L) Gastrointestinal: soft, tenderness Extremity: Normal Capillary Refill, Normal Inspection Skin: Normal Color, Warm/Dry Lymphatic: No Adenopathy Results Lab Laboratory Tests 01/07/18 05:35 01/07/18 14:54 01/08/18 03:15 Assessment/Plan Assessment/Plan Acute respiratory failure -Check echo -pending -Increase IVF to 150 -- decrease UO and decreased BP -ventilator support -Will D/C Propofol and fentanyl gtt then extubate patient cholelithiasis with cholecystitis s/p cholecystectomy -Continue to monitor for bleeding -Pain control HTN -I believe patient is currently in pain -Will start Diprivan gtt and propofol gtt Anemia - post op -S/p 2 units PRBC AFib with coumadin coagulopathy -S/p 2 units of PRBC and 3 units of FFP nausea and vomiting UTI PT is only requiring 25% oxygen currently. Will wake patient up and proceed with extubation. 233 Critical Care: Critically Ill Patient JENNIFER LERMA DO Jan 08, 2018 05:31
[2018-01-08] MEDS: POTASSIUM CL 10MEQ/50ML IVPB 50 ML IV SCH (05:38)
[2018-01-08] MEDS: MAGNESIUM 1 GM/100 ML IVPB 100 ML IV SCH ×2 (05:38→08:26)
[2018-01-08] MEDS: KCL 20 MEQ TAB (K-DUR) PO SCH (05:39)
[2018-01-08] MEDS: NS IV 1000 ML 1,000 ML IV SCH ×3 (06:33→17:03)
--- NOTE | 2018-01-08 07:32 | Anesthesia-General Post-Op ---
General Patient Condition Mental Status/LOC: Unreactive (sedated on vent) Cardiovascular: Satisfactory Nausea/Vomiting: Absent Respiratory: Unsatisfactory (ventilator) Pain: Uncontrolled Complications: Absent Post Op Complications Complications None Follow Up Care/Instructions Patient Instructions None needed. Anesthesia/Patient Condition Patient Condition Patient is doing well, no complaints, stable vital signs, no apparent adverse anesthesia problems. No complications reported per nursing. 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
--- NOTE | 2018-01-08 07:48 | Diagnostic Imaging Report ---
Indication: Sepsis. Comparison: 01/07/2018 Findings: Single frontal radiographic view of the chest was obtained and demonstrates indwelling endotracheal tube with tip at the clavicular heads. Left-sided dual-lead pacemaker is noted. Cardiac silhouette remains mildly enlarged. Pulmonary vasculature is within normal limits. Lungs are clear. There is no focal consolidation, large effusion, nor pneumothorax. Bony structures show no gross acute abnormalities. Impression: 1. Lines and tubes as above. 2. Mild cardiomegaly, but no evidence of failure or focal infiltrate. Dictated by: Dictated on workstation # [id number]
--- NOTE | 2018-01-08 12:20 | History & Physical-Hospitalist ---
History of Present Illness HPI/Chief Complaint The patient is a 67-year-old white female who appeared early on 01/07 to the emergency room. Her findings were not totally congruent as to the etiology of her complaint however there had been some right upper quadrant pain and she reported inability to eat or fear to eat because of the right upper quadrant pain. Ultimately a gallbladder sonogram was consistent with acute cholecystitis. Dr. Moran from the surgery service felt that urgent cholecystectomy was in order. And he took her midday yesterday for cholecystectomy. He reports that the surgery was quite difficult with friability of the bile duct and the gallbladder. Significant bleeding was then produced from the gallbladder fossa. This was abetted by her previous anticoagulation which had been reversed with fresh frozen plasma. Source: patient, family Date Seen 01/08/18 Time Seen by Provider: 12:15 Attending Physician Luis Elder MD PCP Aubrey Ball MD Referring Physician Date of Admission Jan 07, 2018 at 08:15 Home Medications & Allergies Home Medications Reviewed patient Home Medication Reconciliation performed by pharmacy medication reconciliations polysomnography technician and/or nursing. Patients Allergies have been reviewed. Allergies Allergies Coded Allergies rosuvastatin (Unverified Allergy, Mild, 01/24/17) Sulfa (Sulfonamide Antibiotics) (Verified Allergy, Unknown, 01/24/17) Past Bujkapo-Rlcoed-Puxfuk Hx Past Med/Social Hx: Reviewed Nursing Past Med/Soc Hx Patient Social History Alcohol Use: Denies Use Recreational Drug Use: No Smoking Status: Never a Smoker 2nd Hand Smoke Exposure: Yes Physical Abuse Screen: No Sexual Abuse: No Recent Foreign Travel: No Contact w/other who traveled: No Recent Hopitalizations: No Recent Infectious Disease Expo: No Immunizations Up To Date Tetanus Booster (TDap): Less than 5yrs Pediatric: No Date of Influenza Vaccine: Apr 17, 2017 Seasonal Allergies Seasonal Allergies: No Past Medical History Surgeries: Cardiac, Hysterectomy, Oophorectomy, Pacemaker, Tonsillectomy Currently Using CPAP: Yes Cardiac: Atrial Fibrillation, High Cholesterol, Hypertension Reproductive: No (X1 MISCARRIAGE) Sexually Transmitted Disease: No HIV/AIDS: No Hysterectomy Genitourinary: UTI-Chronic Gastrointestinal: Gastroesophageal Reflux, Diverticulosis Loss of Vision: Bilateral Hearing Impairment: Denies Psychosocial: Anxiety, Depression History of Blood Disorders: No Adverse Reaction to Blood [place]: No Family History Heart Disease, CAD Under 55 Years Old Review of Systems Constitutional: see HPI EENTM: no symptoms reported Respiratory: no symptoms reported Cardiovascular: palpitations Gastrointestinal: RUQ, abdominal pain (RUQ) Genitourinary: no symptoms reported Musculoskeletal: no symptoms reported Skin: no symptoms reported Psychiatric/Neurological: No Symptoms Reported Physical Exam Physical Exam Vital Signs Capillary Refill : Less Than 3 Seconds General Appearance: Mild Distress Eyes: Bilateral Eye Normal Inspection HEENT: Normal ENT Inspection Neck: Normal Inspection Respiratory: Chest Non Tender, Lungs Clear, Normal Breath Sounds, No Accessory Muscle Use, No Respiratory Distress Cardiovascular: Irregularly Irregular Gastrointestinal: Other (generalized tenderness to palpation) Back: Normal Inspection Extremity: Normal Capillary Refill, Normal Inspection, Normal Range of Motion, Non Tender Neurologic/Psychiatric: Alert, Oriented x3, No Motor/Sensory Deficits, Normal 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 Assessment/Plan Admission Diagnosis 1.acute cholecystitis. 2.apparent sepsis on the basis of vital signs and lactic acid Admission Status: Inpatient Order (span 2 midnights) Reason for Inpatient Admission: Postop plus sepsis Clinical Quality Measures DVT/VTE Risk/Contraindication: Risk Factor Score Per Nursin RFS Level Per Nursing on Admit: 2=Moderate LUIS ELDER MD Jan 08, 2018 12:20
[2018-01-08 15:21] LABS: BASOPHILS % (AUTO) 0 % (0-10); EOSINOPHILS % (AUTO) 0 % (0-10); HEMATOCRIT 32 % (35-52); HEMOGLOBIN 10.2 G/DL (11.5-16.0); LYMPHOCYTES # (AUTO) 1.3 X 10^3 (1.0-4.0); LYMPHOCYTES % (AUTO) 11 % (12-44); MEAN CORPUSCULAR HEMOGLOBIN 28 PG (25-34); MEAN CORPUSCULAR HGB CONC 32 G/DL (32-36); MEAN CORPUSCULAR VOLUME 87 FL (80-99); MEAN PLATELET VOLUME 10.2 FL (7.4-10.4); MONOCYTES % (AUTO) 8 % (0-12); NEUTROPHILS # (AUTO) 10.1 X 10^3 (1.8-7.8); NEUTROPHILS % (AUTO) 81 % (42-75); PLATELET COUNT 319 10^3/uL (130-400); RED BLOOD COUNT 3.69 10^6/uL (4.35-5.85); RED CELL DISTRIBUTION WIDTH 16.9 % (10.0-14.5); WHITE BLOOD COUNT 12.4 10^3/uL (4.3-11.0)
[2018-01-08 15:43] LABS: INR 1.8 (0.8-1.4); PROTHROMBIN TIME PATIENT 20.8 SEC (12.2-14.7)
[2018-01-08 15:51] LABS: ALANINE AMINOTRANSFERASE 25 U/L (0-55); ALBUMIN 3.7 GM/DL (3.2-4.5); ALKALINE PHOSPHATASE 60 U/L (40-136); BILIRUBIN,TOTAL 1.2 MG/DL (0.1-1.0); BUN/CREATININE RATIO 23; CALCIUM 7.5 MG/DL (8.5-10.1); CARBON DIOXIDE 19 MMOL/L (21-32); CHLORIDE 111 MMOL/L (98-107); CREATININE SERUM 0.82 MG/DL (0.60-1.30); GFR ESTIMATED > 60; GLUCOSE 122 MG/DL (70-105); MAGNESIUM 2.5 MG/DL (1.8-2.4); PHOSPHORUS 3.6 MG/DL (2.3-4.7); SODIUM 141 MMOL/L (135-145); TOTAL PROTEIN 5.9 GM/DL (6.4-8.2)
--- NOTE | 2018-01-08 17:25 | Progress Note ---
Subjective Date Seen by Provider: Jan 08, 2018 Time Seen by Provider: 10:33 Subjective/Events-last exam Patient extubated this morning. Patient Hgb stable and INR down to 1.7. Pain controlled. Having some shortness of breath. Urine output low. Denies fever sweats chills shortness of breath or chest pain. Focused Exam Lactate Level 01/07/18 05:35: Lactic Acid Level 4.37*H 01/07/18 07:05: Lactic Acid Level 1.84 01/08/18 03:15: Lactic Acid Level 1.15 Objective Exam Vital Signs Date Time Temp Pulse Resp B/P (MAP) Pulse Ox O2 Delivery O2 Flow Rate FiO2 01/08/18 17:00 70 16 129/52 (77) 95 Nasal Cannula 2.00 01/08/18 16:00 98 Nasal Cannula 2.00 01/08/18 16:00 69 35 113/45 (67) 94 Nasal Cannula 2.00 01/08/18 15:00 70 25 132/58 (82) 94 Nasal Cannula 2.00 01/08/18 14:00 71 16 119/56 (77) 95 Nasal Cannula 2.00 01/08/18 13:00 69 21 131/59 (83) 97 Nasal Cannula 2.00 01/08/18 13:00 69 01/08/18 12:00 69 16 121/56 (77) 95 Nasal Cannula 2.00 01/08/18 12:00 96.9 01/08/18 12:00 98 Nasal Cannula 2.00 01/08/18 11:00 69 17 133/59 (83) 96 Nasal Cannula 2.00 01/08/18 10:00 70 21 126/55 (78) 95 Nasal Cannula 2.00 01/08/18 09:00 69 16 121/59 (79) 95 Nasal Cannula 2.00 01/08/18 08:00 70 16 119/55 (76) 93 Nasal Cannula 2.00 01/08/18 08:00 97.7 01/08/18 08:00 98 Nasal Cannula 2.00 01/08/18 07:00 69 29 129/61 (83) 96 Nasal Cannula 2.00 01/08/18 07:00 69 01/08/18 06:09 70 35 123/65 (84) 100 Nasal Cannula 2.00 01/08/18 06:04 99 Nasal Cannula 3.00 01/08/18 06:00 69 29 126/65 (85) 97 Mechanical Ventilator 25.00 01/08/18 05:00 69 15 92/47 (62) 92 Mechanical Ventilator 25.00 01/08/18 04:25 63 30 94/48 (63) 95 Mechanical Ventilator 25.00 01/08/18 04:14 69 16 95 25 01/08/18 04:00 69 16 99/51 (67) 95 Mechanical Ventilator 30.00 01/08/18 04:00 97 Mechanical Ventilator 30 01/08/18 03:00 69 16 99/49 (66) 94 Mechanical Ventilator 30.00 01/08/18 02:19 67 16 94 30 01/08/18 02:00 70 16 106/53 (70) 94 Mechanical Ventilator 30.00 01/08/18 01:00 72 01/08/18 01:00 72 15 103/52 (69) 94 Mechanical Ventilator 30.00 01/08/18 00:01 70 16 94 30 01/08/18 00:00 69 16 100/50 (67) 94 Mechanical Ventilator 30.00 01/08/18 00:00 96 Mechanical Ventilator 35 01/07/18 23:50 98.2 69 16 102/52 95 Mechanical Ventilator 30 01/07/18 23:15 98.0 69 15 102/52 96 Mechanical Ventilator 30.00 01/07/18 23:00 69 16 99/51 (67) 95 Mechanical Ventilator 30.00 01/07/18 22:00 69 15 102/52 (69) 96 Mechanical Ventilator 30.00 01/07/18 21:45 98.0 70 16 95/47 95 Mechanical Ventilator 30 01/07/18 21:30 96.9 69 16 96/48 98 Mechanical Ventilator 30 18 21:17 69 16 97 35 7/2/18 21:17 69 15 101/49 (66) 95 Mechanical Ventilator 30.00 01/07/18 21:00 69 15 99/49 (66) 97 Mechanical Ventilator 35.00 18 20:44 98.2 69 16 100/50 97 Mechanical Ventilator 35 7/2/18 20:00 95 Mechanical Ventilator 35 /2/18 20:00 69 15 103/47 (65) 98 Mechanical Ventilator 35.00 18 19:48 96.5 70 16 99/46 (63) 97 Mechanical Ventilator 35.00 01/07/18 19:09 70 16 99 40 01/07/18 19:00 70 16 105/49 (67) 100 Mechanical Ventilator 40.00 01/07/18 19:00 70 01/07/18 18:40 97.5 70 16 112/54 99 Mechanical Ventilator 40 01/07/18 18:26 97.5 69 15 109/49 100 Mechanical Ventilator 40 01/07/18 18:00 69 15 122/63 (82) 100 Mechanical Ventilator 40.00 01/07/18 17:27 156/57 I & O 01/08/18 07:00 Intake Total 4985 ml Output Total 1945 ml Balance 3040 ml Capillary Refill : Less Than 3 Seconds General Appearance: No Apparent Distress (laying in bed) HEENT: Normal ENT Inspection Neck: Normal Inspection Respiratory: No Accessory Muscle Use, No Respiratory Distress Cardiovascular: Irregularly Irregular Peripheral Pulses: 2+ Radial Pulses (R), 2+ Radial Pulses (L) Gastrointestinal: soft, tenderness Extremity: Normal Capillary Refill, Normal Inspection, Normal Range of Motion, Non Tender Neurologic/Psychiatric: Alert, Oriented x3, No Motor/Sensory Deficits, Normal 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, 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 Tested Skin: Normal Color, Warm/Dry Lymphatic: No Adenopathy Results Lab Laboratory Tests 01/08/18 03:15: White Blood Count 7.0, Red Blood Count 3.36L, Hemoglobin 9.3L, Hematocrit 29L, Mean Corpuscular Volume 87, Mean Corpuscular Hemoglobin 28, Mean Corpuscular Hemoglobin Concent 32, Red Cell Distribution Width 16.7H, Platelet Count 231, Mean Platelet Volume 10.3, Neutrophils (%) (Auto) 87H, Lymphocytes (%) (Auto) 10L, Monocytes (%) (Auto) 3, Eosinophils (%) (Auto) 0, Basophils (%) (Auto) 0, Neutrophils # (Auto) 6.0, Lymphocytes # (Auto) 0.7L, Monocytes # (Auto) 0.2, Eosinophils # (Auto) 0.0, Basophils # (Auto) 0.0, Prothrombin Time 20.3H, INR Comment 1.7H, Activated Partial Thromboplast Time 29, Sodium Level 143, Potassium Level 3.8, Chloride Level 111H, Carbon Dioxide Level 19L, Anion Gap 13 , Blood Urea Nitrogen 16, Creatinine 0.80, Estimat Glomerular Filtration Rate > 60, BUN/Creatinine Ratio 20, Glucose Level 134H, Lactic Acid Level 1.15, Calcium Level 7.3L, Phosphorus Level 4.0, Magnesium Level 1.7L, Total Bilirubin 1.1H, B-Type Natriuretic Peptide 443.7H 01/08/18 03:20: Blood Gas Puncture Site LEFT ART LINE, Blood Gas Patient Temperature 96.9, Arterial Blood pH 7.46H, Arterial Blood Partial Pressure CO2 32L, Arterial Blood Partial Pressure O2 115H, Arterial Blood HCO3 23, Arterial Blood Total CO2 24.0, Arterial Blood Oxygen Saturation 99, Arterial Blood Base Excess -0.5, Maxwell Test ART LINE, Blood Gas Ventilator Setting YES, Blood Gas Inspired Oxygen 30% 01/08/18 03:30: Urine Color YELLOW, Urine Clarity VERY CLOUDYH, Urine pH 5, Urine Specific Cartwright 1.020, Urine Protein 2+H, Urine Glucose (UA) NEGATIVE, Urine Ketones NEGATIVE, Urine Nitrite NEGATIVE, Urine Bilirubin NEGATIVE, Urine Urobilinogen NORMAL, Urine Leukocyte Esterase 2+H, Urine RBC (Auto) 5+H, Urine RBC 50-100H, Urine WBC 2-5, Urine Squamous Epithelial Cells 0-2, Urine Crystals PRESENTH, Urine Uric Acid Crystals MODERATEH, Urine Bacteria TRACE, Urine Casts NONE, Urine Mucus NEGATIVE, Urine Culture Indicated YES, Urine Random Sodium < 20L, Urine Creatinine 131H 01/08/18 14:05: Lab Scanned Report Transfusion Reaction Form 01/08/18 15:10: White Blood Count 12.4H, Red Blood Count 3.69L, Hemoglobin 10.2L, Hematocrit 32L , Mean Corpuscular Volume 87, Mean Corpuscular Hemoglobin 28, Mean Corpuscular Hemoglobin Concent 32, Red Cell Distribution Width 16.9H, Platelet Count 319, Mean Platelet Volume 10.2, Neutrophils (%) (Auto) 81H, Lymphocytes (%) (Auto) 11L, Monocytes (%) (Auto) 8, Eosinophils (%) (Auto) 0, Basophils (%) (Auto) 0, Neutrophils # (Auto) 10.1H, Lymphocytes # (Auto) 1.3, Monocytes # (Auto) 1.0, Eosinophils # (Auto) 0.0, Basophils # (Auto) 0.0, Prothrombin Time 20.8H, INR Comment 1.8H, Activated Partial Thromboplast Time 28, Sodium Level 141, Potassium Level 4.0, Chloride Level 111H, Carbon Dioxide Level 19L, Anion Gap 11 , Blood Urea Nitrogen 19H, Creatinine 0.82, Estimat Glomerular Filtration Rate > 60, BUN/Creatinine Ratio 23, Glucose Level 122H, Calcium Level 7.5L, Phosphorus Level 3.6, Magnesium Level 2.5H, Total Bilirubin 1.2H, Aspartate Amino Transf (AST/SGOT) 49H, Alanine Aminotransferase (ALT/SGPT) 25, Alkaline Phosphatase 60, Troponin I < 0.30, Total Protein 5.9L, Albumin 3.7 Microbiology 01/07/18 Blood Culture - Preliminary, Resulted No growth 01/07/18 Gram Stain - Final, Resulted 01/07/18 Sputum Culture - Preliminary, Resulted No growth 01/08/18 Urine Culture - Preliminary, Resulted Sent To [facility] Assessment/Plan Assessment/Plan Assessment/Plan right upper quadrant abdominal pain nausea and vomiting cholelithiasis with cholecystitis chronic Coumadin use UTI anemia secondary to blood loss s/p lap [place] ioc open control of bleeding liver venous sinus had to receive ffp and vit k for further reversal of coumadin follow coags and hgb-transfuse as needed clear liquids continue sandoval for accurate i/o keep in icu Clinical Quality Measures DVT/VTE Risk/Contraindication: Risk Factor Score Per Nursin RFS Level Per Nursing on Admit: 2=Moderate SARAI TOBIAS DO Jan 08, 2018 17:25
[2018-01-08] MEDS: fentaNYL INJECTION 1,250 MCG in NS (IVPB) 250 ML IV SCH (17:31)
[2018-01-08] MEDS ORDERED: NS IV 1000 ML 1,000 ML IV ONE (17:45)
[2018-01-08] MEDS: PROPOFOL DRIP (ICU) 100 ML IV SCH (17:52)
[2018-01-09] VITALS (22 sets, daily range): BP systolic 101–168; BP diastolic 58–99
[2018-01-09] MEDS: NS IV 1000 ML 1,000 ML IV SCH ×2 (00:29→11:37)
[2018-01-09] MEDS: PIPERACILLIN/TAZO 3.375 GM/D5W 100 ML IV SCH ×6 (04:06→20:07)
[2018-01-09 04:16] LABS: BASOPHILS % (AUTO) 0 % (0-10); EOSINOPHILS % (AUTO) 0 % (0-10); HEMATOCRIT 33 % (35-52); HEMOGLOBIN 10.5 G/DL (11.5-16.0); LYMPHOCYTES # (AUTO) 1.9 X 10^3 (1.0-4.0); LYMPHOCYTES % (AUTO) 14 % (12-44); MEAN CORPUSCULAR HEMOGLOBIN 28 PG (25-34); MEAN CORPUSCULAR HGB CONC 32 G/DL (32-36); MEAN CORPUSCULAR VOLUME 87 FL (80-99); MEAN PLATELET VOLUME 9.7 FL (7.4-10.4); MONOCYTES # (AUTO) 1.1 X 10^3 (0.0-1.0); MONOCYTES % (AUTO) 8 % (0-12); NEUTROPHILS # (AUTO) 10.7 X 10^3 (1.8-7.8); NEUTROPHILS % (AUTO) 78 % (42-75); PLATELET COUNT 310 10^3/uL (130-400); RED BLOOD COUNT 3.79 10^6/uL (4.35-5.85); WHITE BLOOD COUNT 13.7 10^3/uL (4.3-11.0)
[2018-01-09 04:35] LABS: ALANINE AMINOTRANSFERASE 25 U/L (0-55); ALBUMIN 3.6 GM/DL (3.2-4.5); ALKALINE PHOSPHATASE 62 U/L (40-136); BILIRUBIN,TOTAL 1.2 MG/DL (0.1-1.0); BUN/CREATININE RATIO 23; CALCIUM 7.4 MG/DL (8.5-10.1); CARBON DIOXIDE 15 MMOL/L (21-32); CHLORIDE 114 MMOL/L (98-107); CREATININE SERUM 0.77 MG/DL (0.60-1.30); GFR ESTIMATED > 60; GLUCOSE 127 MG/DL (70-105); MAGNESIUM 2.1 MG/DL (1.8-2.4); PHOSPHORUS 2.7 MG/DL (2.3-4.7); POTASSIUM 4.2 MMOL/L (3.6-5.0); SODIUM 140 MMOL/L (135-145); TOTAL PROTEIN 5.9 GM/DL (6.4-8.2)
[2018-01-09] MEDS: MAGNESIUM 1 GM/100 ML IVPB 100 ML IV SCH (05:07)
[2018-01-09] MEDS: POTASSIUM CL 10MEQ/50ML IVPB 50 ML IV SCH ×3 (05:07→08:22)
[2018-01-09] MEDS: KCL 20 MEQ TAB (K-DUR) PO SCH (05:07)
--- NOTE | 2018-01-09 05:53 | Pulmonary Progress Note ---
Subjective Time Seen by Provider: 05:53 Subjective/Events-last exam complains of persistent SOB> Focused Exam Lactate Level 01/07/18 05:35: Lactic Acid Level 4.37*H 01/07/18 07:05: Lactic Acid Level 1.84 01/08/18 03:15: Lactic Acid Level 1.15 Exam Exam Vital Signs Date Time Temp Pulse Resp B/P (MAP) Pulse Ox O2 Delivery O2 Flow Rate FiO2 01/09/18 03:20 95 Nasal Cannula 2.00 01/09/18 03:00 70 13 151/74 (99) 96 Nasal Cannula 2.00 01/09/18 02:00 71 16 148/64 (92) 96 Nasal Cannula 2.00 01/09/18 01:00 70 01/09/18 01:00 70 24 106/87 (93) 97 Nasal Cannula 2.00 01/09/18 00:05 93 Nasal Cannula 2.00 01/09/18 00:05 97.1 01/09/18 00:00 70 16 118/78 (91) 96 Nasal Cannula 2.00 01/08/18 23:00 71 17 130/66 (87) 93 Nasal Cannula 2.00 01/08/18 22:01 Nasal Cannula 2.00 01/08/18 22:00 70 28 117/82 (94) 94 Nasal Cannula 2.00 01/08/18 21:00 71 19 118/72 (87) 96 Nasal Cannula 2.00 01/08/18 20:00 70 24 147/66 (93) 94 Nasal Cannula 2.00 01/08/18 19:30 94 Nasal Cannula 2.00 01/08/18 19:00 98.3 70 33 134/53 (80) 94 Nasal Cannula 2.00 01/08/18 19:00 70 01/08/18 18:00 71 14 160/69 (99) 95 Nasal Cannula 2.00 01/08/18 17:00 70 16 129/52 (77) 95 Nasal Cannula 2.00 01/08/18 16:00 98 Nasal Cannula 2.00 01/08/18 16:00 69 35 113/45 (67) 94 Nasal Cannula 2.00 01/08/18 15:00 70 25 132/58 (82) 94 Nasal Cannula 2.00 01/08/18 14:00 71 16 119/56 (77) 95 Nasal Cannula 2.00 01/08/18 13:00 69 21 131/59 (83) 97 Nasal Cannula 2.00 01/08/18 13:00 69 01/08/18 12:00 69 16 121/56 (77) 95 Nasal Cannula 2.00 01/08/18 12:00 96.9 01/08/18 12:00 98 Nasal Cannula 2.00 01/08/18 11:00 69 17 133/59 (83) 96 Nasal Cannula 2.00 01/08/18 10:00 70 21 126/55 (78) 95 Nasal Cannula 2.00 01/08/18 09:00 69 16 121/59 (79) 95 Nasal Cannula 2.00 01/08/18 08:00 70 16 119/55 (76) 93 Nasal Cannula 2.00 01/08/18 08:00 97.7 01/08/18 08:00 98 Nasal Cannula 2.00 01/08/18 07:00 69 29 129/61 (83) 96 Nasal Cannula 2.00 01/08/18 07:00 69 01/08/18 06:09 70 35 123/65 (84) 100 Nasal Cannula 2.00 01/08/18 06:04 99 Nasal Cannula 3.00 01/08/18 06:00 69 29 126/65 (85) 97 Mechanical Ventilator 25.00 I & O 01/09/18 07:00 Intake Total 7852 ml Output Total 745 ml Balance 7107 ml General Appearance: No Apparent Distress (laying in bed) HEENT: Normal ENT Inspection Neck: Normal Inspection Respiratory: No Accessory Muscle Use, No Respiratory Distress Cardiovascular: Irregularly Irregular Capillary Refill: Less Than 3 Seconds Peripheral Pulses: 2+ Radial Pulses (R), 2+ Radial Pulses (L) Gastrointestinal: soft, tenderness Extremity: Normal Capillary Refill, Normal Inspection, Normal Range of Motion, Non Tender Neurologic/Psychiatric: Alert, Oriented x3, No Motor/Sensory Deficits, Normal 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, 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 Norm as Tested Skin: Normal Color, Warm/Dry Lymphatic: No Adenopathy Results Lab Laboratory Tests 01/07/18 14:54 01/08/18 03:15 01/08/18 15:10 01/09/18 04:10 Assessment/Plan Assessment/Plan Acute respiratory failure -Check echo -pending -Decrease to 50cc/hr Metabolic acidosis -repeat LA -IF normal will give 40mg of Lasix x 1 and give 1-2 amp of HC03 cholelithiasis with cholecystitis s/p cholecystectomy POD # 2 -Leukocytosis - reactive vs infection -afebrile -Will continue to monitor for now -Pain control HTN -I believe patient is currently in pain -Will start Diprivan gtt and propofol gtt Anemia - post op -S/p 2 units PRBC AFib with coumadin coagulopathy -S/p 2 units of PRBC and 3 units of FFP nausea and vomiting UTI 233 Critical Care: Critically Ill Patient JENNIFER LERMA DO Jan 09, 2018 05:53
[2018-01-09] MEDS ORDERED: FUROSEMIDE 40 MG/4 ML INJ (LASIX) ONE (06:57)
[2018-01-09] MEDS ORDERED: FUROSEMIDE 40 MG/4 ML INJ (LASIX) IVP ONE (07:00)
[2018-01-09] MEDS: PANTOPRAZOLE 40 MG/10 ML (PROTONIX) VIAL IV SCH (08:16)
--- NOTE | 2018-01-09 11:33 | Consultation-Cardiology ---
HPI-Cardiology Cardiology Consultation: Date of Consultation 01/09/18 Date of Admission Attending Physician Luis Smith MD Admitting Physician Aubrey Ball MD Consulting Physician Breanne COLE MD HPI: Time Seen by Provider: 11:30 Chief Complaint: Chest pain This is a 67-year-old lady who has history of atrial fibrillation, permanent pacemaker, history of atrial flutter ablation, atrial fibrillation ablation, recurrent atrial fibrillation refractory to dofetilide. Patient follows with Dr. Hewitt for cardiology and Dr. Bridges for electrophysiology. Patient had coronary angiography in September 2017 which showed mild CAD with normal LV function. Transesophageal echocardiogram assisted cardioversion in 2016 was successful in converting atrial fibrillation to sinus rhythm. LV function was normal. Another echocardiogram was done in February 2016 which showed normal LV function, left atrial dilatation and moderate pulmonary hypertension. The patient was admitted for laparoscopic cholecystectomy which was complicated with possible liver venous bleed. The procedure was converted to open surgical procedure and the liver was repaired with no further bleeding at the end of the procedure. The patient is extubated with mild discomfort in the right upper quadrant. Yesterday she complained of pain in the chest which has resolved. 2 set of troponins were done which are negative. EKG showed paced rhythm. Echocardiogram was done. Review of Systems-Cardiology Review of Systems Constitutional: As described under HPI Eyes: No As described under HPI, No no symptoms reported, No blindness, No blurred vision, No contact lenses, No drainage, No decreased acuity, No foreign body sensation, No glasses, No inflammation, No pain, No photophobia, No previous injury, No shadows, No tunnel vision, No other, No vision change Ears/Nose/Throat: No As described under HPI, No no symptoms reported, No chronic hearing loss, No epistaxis, No ear discharge, No ear pain, No loose teeth, No mouth pain, No mouth swelling, No nasal drainage, No nose pain, No recent hearing loss, No throat pain, No throat swelling, No ulcerations, No other Respiratory: No no symptoms reported, No As described under HPI, No cough, No orthopnea, No shortness of breath, No SOB with excertion, No SOB at rest, No stridor, No wheezing, No other Cardiovascular: No no symptoms reported, No As described under HPI; chest pain ; No edema, No irregular heart rate, No lightheadedness, No palpitations, No syncope, No other Gastrointestinal: abdominal pain Genitourinary: no symptoms reported Musculoskeletal: no symptoms reported Skin: no symptoms reported Psychiatric/Neurological: no symptoms reported Hematologic: no symptoms reported [id number] Hx Patient Social History Alcohol Use: Denies Use Recreational Drug Use: No Smoking Status: Never a Smoker 2nd Hand Smoke Exposure: Yes Recent Foreign Travel: No Recent Infectious Disease Expo: No Hospitalization with Isolation: Denies Physical Abuse Screen: No Sexual Abuse: No Immunizations Up To Date Tetanus Booster (TDap): Less than 5yrs Date of Influenza Vaccine: Apr 17, 2017 Past Medical History PMH As described under Assessment. Allergies and Home Medications Allergies Coded Allergies: rosuvastatin (Unverified Allergy, Mild, 01/24/17) Sulfa (Sulfonamide Antibiotics) (Verified Allergy, Unknown, 01/24/17) Home Medications Acetaminophen/Diphenhydramine 1 Ea Tab, 1 TAB PO HS, (Reported) Alprazolam 0.5 Mg Tablet, 0.25 MG PO TID PRN for ANXIETY, (Reported) TAKES 1/2 OF A (0.5 MG) TABLET Amiodarone HCl 200 Mg Tablet, 400 MG PO DAILY, (Reported) take 2 (200 mg) tablets once daily with food Atorvastatin Calcium 40 Mg Tablet, 40 MG PO HS, (Reported) Cholecalciferol 5,000 Unit Capsule, 5,000 UNIT PO DAILY, (Reported) Escitalopram Oxalate 20 Mg Tablet, 20 MG PO DAILY, (Reported) Furosemide 20 Mg Tablet, 20 MG PO ON EVEN DAYS, (Reported) Furosemide 20 Mg Tablet, 40 MG PO ON ODD DAYS, (Reported) TAKE 2 (20 MG) TABLETS ON ODD DAYS Metoprolol Succinate 25 Mg Tab.er.24h, 25 MG PO DAILY, (Reported) Mexiletine HCl 200 Mg Capsule, 200 MG PO BID, (Reported) Pantoprazole Sodium 40 Mg Tablet.dr, 40 MG PO DAILY, (Reported) Spironolactone 25 Mg Tablet, 25 MG PO DAILY, (Reported) Warfarin Sodium 5 Mg Tablet, 5 MG PO SuTuThSa, (Reported) Patient Home Medication List Home Medication List Reviewed: Yes Physical Exam-Cardiology Physical Exam Vital Signs/I&O 01/09/18 01/09/18 01/09/18 01/09/18 02:00 03:00 03:20 04:00 Pulse 71 70 69 Resp 16 13 17 B/P (MAP) 148/64 (92) 151/74 (99) 149/73 (98) Pulse Ox 96 96 95 96 O2 Delivery Nasal Cannula Nasal Cannula Nasal Cannula Nasal Cannula O2 Flow Rate 2.00 2.00 2.00 2.00 01/09/18 01/09/18 01/09/18 01/09/18 05:00 06:00 07:00 07:15 Pulse 78 74 71 72 Resp 14 21 24 B/P (MAP) 137/87 (104) 168/85 (112) 129/93 (105) Pulse Ox 96 97 95 O2 Delivery Nasal Cannula Nasal Cannula Nasal Cannula O2 Flow Rate 2.00 2.00 2.00 01/09/18 01/09/18 01/09/18 01/09/18 08:16 08:30 09:00 10:00 Temp 97.9 Pulse 71 74 73 Resp 19 20 21 B/P (MAP) 105/78 (87) 119/85 (96) 104/73 (83) Pulse Ox 92 92 94 94 O2 Delivery Nasal Cannula Nasal Cannula Nasal Cannula Nasal Cannula O2 Flow Rate 1.00 1.00 1.00 1.00 01/09/18 01/09/18 01/09/18 11:00 11:34 12:00 Temp 97.2 Pulse 69 71 71 Resp 19 16 22 B/P (MAP) 113/75 (88) 118/72 (87) 122/87 (99) Pulse Ox 95 91 98 O2 Delivery Nasal Cannula Nasal Cannula Nasal Cannula O2 Flow Rate 1.00 1.00 1.00 01/09/18 00:00 Intake Total 5320 ml Output Total 360 ml Balance 4960 ml Capillary Refill : Less Than 3 Seconds Constitutional: AAO x 3 HEENT: No PERRL, No normal ENT inspection, No TMs normal, No pharynx normal, No scleral icterus (R), No scleral icterus (L), No pale conjunctivae (R), No pale conjunctivae (L), No photophobia, No TM abnormal (R), No TM abnormal (L), No pharyngeal erythema, No tonsillar exudate, No other, No discharge, No EOMI, No hearing is well preserved, No hard of hearing, No oral hygience is good, No ulceration, No xanthelasmas are seen Neck: No non-tender, No full range of motion, No supple, No normal inspection, No carotid bruit, No limited range of motion, No lymphadenopathy (R), No lymphadenopathy (L), No tender lateral, No tender midline, No thyromegaly, No other, No carotid pulses are 2 + bilaterally, No with good upstrokes Respiratory: No accessory muscle use, No respiratory distress, No chest tender , No chest expansion is symmetric; chest is bilaterally symmetric; No lungs clear to percussion; lungs clear to auscultation; No crackles, No rhonchi, No rales, No stridor, No wheezing, No pleural rub, No other Cardiovascular: No regular rate-rhythm; irregularly irregular; No extra beats, No parasternal heave is noted, No JVD, No edema, No bradycardia, No tachycardia , No point of maximal impulse, No cardiac thrills are palpable; S1 and S2; No gallop/S3, No gallop/S4, No diastolic murmur, No systolic murmur, No friction rub, No click, No other Gastrointestinal: tenderness Rectal: deferred Extremities: No normal range of motion, No non-tender, No normal inspection, No pedal edema, No calf tenderness, No normal capillary refill, No pelvis stable , No calf tenderness, No inflammation, No pedal edema, No slow capillary refill , No swelling, No other, No abrasion, No clubbing, No cyanosis, No ecchymosis, No laceration, No no lower extremity edema bilateral, No significant edema, No tenderness, No wound Neurologic/Psychiatric: no motor/sensory deficits, alert, normal mood/affect, oriented x 3 Lymphatic: no adenopathy Data Review Labs Laboratory Tests 01/08/18 14:05: Lab Scanned Report Transfusion Reaction Form 01/08/18 15:10: White Blood Count 12.4H, Red Blood Count 3.69L, Hemoglobin 10.2L, Hematocrit 32L , Mean Corpuscular Volume 87, Mean Corpuscular Hemoglobin 28, Mean Corpuscular Hemoglobin Concent 32, Red Cell Distribution Width 16.9H, Platelet Count 319, Mean Platelet Volume 10.2, Neutrophils (%) (Auto) 81H, Lymphocytes (%) (Auto) 11L, Monocytes (%) (Auto) 8, Eosinophils (%) (Auto) 0, Basophils (%) (Auto) 0, Neutrophils # (Auto) 10.1H, Lymphocytes # (Auto) 1.3, Monocytes # (Auto) 1.0, Eosinophils # (Auto) 0.0, Basophils # (Auto) 0.0, Prothrombin Time 20.8H, INR Comment 1.8H, Activated Partial Thromboplast Time 28, Sodium Level 141, Potassium Level 4.0, Chloride Level 111H, Carbon Dioxide Level 19L, Anion Gap 11 , Blood Urea Nitrogen 19H, Creatinine 0.82, Estimat Glomerular Filtration Rate > 60, BUN/Creatinine Ratio 23, Glucose Level 122H, Calcium Level 7.5L, Phosphorus Level 3.6, Magnesium Level 2.5H, Total Bilirubin 1.2H, Aspartate Amino Transf (AST/SGOT) 49H, Alanine Aminotransferase (ALT/SGPT) 25, Alkaline Phosphatase 60, Total Protein 5.9L, Albumin 3.7 01/08/18 18:30: Troponin I < 0.30 01/08/18 22:45: Troponin I < 0.30 01/09/18 04:10: White Blood Count 13.7H, Red Blood Count 3.79L, Hemoglobin 10.5L, Hematocrit 33L , Mean Corpuscular Volume 87, Mean Corpuscular Hemoglobin 28, Mean Corpuscular Hemoglobin Concent 32, Red Cell Distribution Width 17.0H, Platelet Count 310, Mean Platelet Volume 9.7, Neutrophils (%) (Auto) 78H, Lymphocytes (%) (Auto) 14 , Monocytes (%) (Auto) 8, Eosinophils (%) (Auto) 0, Basophils (%) (Auto) 0, Neutrophils # (Auto) 10.7H, Lymphocytes # (Auto) 1.9, Monocytes # (Auto) 1.1H, Eosinophils # (Auto) 0.0, Basophils # (Auto) 0.0, Sodium Level 140, Potassium Level 4.2, Chloride Level 114H, Carbon Dioxide Level 15L, Anion Gap 11, Blood Urea Nitrogen 18, Creatinine 0.77, Estimat Glomerular Filtration Rate > 60, BUN/ Creatinine Ratio 23, Glucose Level 127H, Calcium Level 7.4L, Phosphorus Level 2.7, Magnesium Level 2.1, Total Bilirubin 1.2H, Aspartate Amino Transf (AST/SGOT ) 35H, Alanine Aminotransferase (ALT/SGPT) 25, Alkaline Phosphatase 62, Total Protein 5.9L, Albumin 3.6 01/09/18 06:20: Lactic Acid Level 1.11 Microbiology 01/07/18 Blood Culture - Preliminary, Resulted No growth 01/07/18 Gram Stain - Final, Complete 01/07/18 Sputum Culture - Final, Complete No growth 01/08/18 Urine Culture - Final, Complete NO GROWTH ECG Impression ECG Comment Controlled atrial fibrillation with paced ventricular rhythm. Occasional PVCs noted. A/P-Cardiology Assessment/Admission Diagnosis Status post cholecystectomy, liver bleed that has been repaired, Coagulopathy, Atrial fibrillation, Permanent pacemaker, Cardiomyopathy, Chest pain, Moderate pulmonary hypertension, Moderate tricuspid regurgitation, Leukocytosis, Metabolic acidosis, Respiratory failure Plan Status post cholecystectomy, liver bleed that has been repaired, deferred to surgical services. Coagulopathy, INR 1.7. FFP was given. Atrial fibrillation, controlled atrial fibrillation. Permanent pacemaker, no acute issues. Cardiomyopathy, echocardiogram done in this admission shows an EF of 3540 percent. Previous LV function was normal. Patient had coronary angiography in September 2017 which showed mild CAD. Therefore new-onset cardiomyopathy very likely nonischemic. Need to review device interrogation records since if the patient has significant RV pacing, that may be a reason for reduction of LV function. She may be a candidate for upgrade to bi-V ICD or biventricular pacemaker if the reason for reduction in LV function is significant RV pacing. Chest pain, negative serial troponins. EKG is nondiagnostic due to ventricularly paced rhythm. Coronary angiography done in September 2017 showed mild CAD therefore acute coronary syndrome is very unlikely. Moderate pulmonary hypertension, continue to monitor. Moderate tricuspid regurgitation, continue to monitor. No acute issues. Leukocytosis, Dr. Olsen following. Metabolic acidosis, Respiratory failure, improved. Could be secondary to acute systolic heart failure. Okay to give Lasix. Cardiac history of atrial fibrillation, permanent pacemaker, history of atrial flutter ablation, atrial fibrillation ablation, recurrent atrial fibrillation refractory to dofetilide. Patient follows with Dr. Hewitt for cardiology and Dr. Bridges for electrophysiology. Patient had coronary angiography in September 2017 which showed mild CAD with normal LV function. Transesophageal echocardiogram assisted cardioversion in 2016 was successful in converting atrial fibrillation to sinus rhythm. LV function was normal. Another echocardiogram was done in February 2016 which showed normal LV function, left atrial dilatation and moderate pulmonary hypertension. Thank you for your consultation. Please call me if you have any questions. Roderick Cole MD, FACP, FACC, FSCAI, FHRS, CCDS Interventional Cardiology Cardiac Electrophysiology Vascular Medicine and Endovascular Interventions Clinical Quality Measures DVT/VTE Risk/Contraindication: Risk Factor Score Per Nursin RFS Level Per Nursing on Admit: 2=Moderate Breanne COLE MD Jan 09, 2018 11:33
--- NOTE | 2018-01-09 12:16 | Progress Note-Hospitalist ---
Progress Note Progress Notes/Assess & Plan Date Seen 01/09/18 Time Seen by Provider: 12:00 Assessment & Plan The patient is sitting in the bedside chair. She is alert and fully questions. Her hemoglobin is stable. Vital signs are good. She has begun to diurese. She is still concerned that her forearms and hands are puffy. Physical exam: She is alert and her color is good. Lungs are clear to auscultation. SaO2 is good. CV is irregular without murmur. Abdomen is soft. Bowel sounds are hypoactive. Feet also show pedal edema. Impression: Day number 2 postop cholecystectomy with intraoperative bleeding. Note: Her urine output is 2000+ ML's already today. Liver enzymes, hemoglobin, and creatinine are normal. Focused Exam Lactate Level 01/07/18 07:05: Lactic Acid Level 1.84 01/08/18 03:15: Lactic Acid Level 1.15 01/09/18 06:20: Lactic Acid Level 1.11 MARCO A ELDER MD Jan 09, 2018 12:16
--- NOTE | 2018-01-09 12:50 | Progress Note-Standard ---
Standard Progress Note Progress Notes/Assess & Plan Date Seen by Provider: Jan 09, 2018 Time Seen by Provider: 11:25 Progress/Assessment & Plan responding to diuretics. Anxious about the catheter being removed. Reassured. Incisions dry. Final Diagnosis cholelithiasis. Focused Exam Lactate Level 01/07/18 07:05: Lactic Acid Level 1.84 01/08/18 03:15: Lactic Acid Level 1.15 01/09/18 06:20: Lactic Acid Level 1.11 CORNEL CASTREJON MD Jan 09, 2018 12:50 pm
--- NOTE | 2018-01-09 18:07 | Diagnostic Imaging Report ---
INDICATION: Sepsis. TECHNIQUE: Single view chest, 4:03 a.m. CORRELATION STUDY: 01/08/2018. FINDINGS: There has been interval extubation of the patient. Left-sided pacemaker and loop recorder device remain present. Heart size is enlarged. Vasculature overall within normal limits. New increased density in the right lung apex could be reflective of underlying atelectasis, infiltrate and/or effusion. IMPRESSION: 1. New opacity at the right lung base could be reflective of infiltrate, atelectasis and/or effusion. Cardiac enlargement without failure. 2. Interval extubation. Dictated by: Dictated on workstation # [id number]
[2018-01-09] MEDS ORDERED: ALPRAZolam 0.25 MG (XANAX) TAB ONE (21:46)
[2018-01-09] MEDS ORDERED: ALPRAZolam 0.25 MG (XANAX) TAB PO PRN (22:00)
[2018-01-09] MEDS: fentaNYL INJECTION 100 MCG/2 ML AMP IVP PRN (22:02)
[2018-01-10] VITALS (15 sets, daily range): BP systolic 131–163; BP diastolic 63–86
[2018-01-10] MEDS: fentaNYL INJECTION 100 MCG/2 ML AMP IVP PRN ×7 (03:03→20:04)
[2018-01-10] MEDS: PIPERACILLIN/TAZO 3.375 GM/D5W 100 ML IV SCH ×6 (03:55→20:04)
[2018-01-10 04:02] LABS: BASOPHILS % (AUTO) 0 % (0-10); EOSINOPHILS # (AUTO) 0.1 10^3/uL (0.0-0.3); EOSINOPHILS % (AUTO) 0 % (0-10); HEMATOCRIT 34 % (35-52); HEMOGLOBIN 10.6 G/DL (11.5-16.0); LYMPHOCYTES # (AUTO) 2.9 X 10^3 (1.0-4.0); LYMPHOCYTES % (AUTO) 20 % (12-44); MEAN CORPUSCULAR HEMOGLOBIN 28 PG (25-34); MEAN CORPUSCULAR HGB CONC 32 G/DL (32-36); MEAN CORPUSCULAR VOLUME 88 FL (80-99); MEAN PLATELET VOLUME 10.2 FL (7.4-10.4); MONOCYTES # (AUTO) 1.3 X 10^3 (0.0-1.0); MONOCYTES % (AUTO) 9 % (0-12); NEUTROPHILS # (AUTO) 10.5 X 10^3 (1.8-7.8); NEUTROPHILS % (AUTO) 71 % (42-75); PLATELET COUNT 301 10^3/uL (130-400); RED CELL DISTRIBUTION WIDTH 17.2 % (10.0-14.5); WHITE BLOOD COUNT 14.8 10^3/uL (4.3-11.0)
[2018-01-10 04:21] LABS: BUN/CREATININE RATIO 17; CARBON DIOXIDE 23 MMOL/L (21-32); CHLORIDE 108 MMOL/L (98-107); CREATININE SERUM 0.77 MG/DL (0.60-1.30); GFR ESTIMATED > 60; GLUCOSE 137 MG/DL (70-105); MAGNESIUM 2.1 MG/DL (1.8-2.4); PHOSPHORUS 2.2 MG/DL (2.3-4.7); POTASSIUM 3.7 MMOL/L (3.6-5.0); SODIUM 141 MMOL/L (135-145)
[2018-01-10 04:36] LABS: ANISOCYTOSIS SLIGHT; ELLIPT/OVALOCYTES SLIGHT; LYMPHOCYTES % (MANUAL) 16 %; MICROCYTOSIS SLIGHT; MONOCYTES % (MANUAL) 10 %; NEUTROPHILS % (MANUAL) 74 %; POIKILOCYTOSIS SLIGHT; TOXIC GRANULATION/VACUOLAZATIO 1+
[2018-01-10] MEDS: POTASSIUM CL 10MEQ/50ML IVPB 50 ML IV SCH ×5 (04:40→10:40)
[2018-01-10] MEDS: MAGNESIUM 1 GM/100 ML IVPB 100 ML IV SCH (04:40)
[2018-01-10] MEDS: KCL 20 MEQ TAB (K-DUR) PO SCH (04:40)
--- NOTE | 2018-01-10 06:23 | Pulmonary Progress Note ---
Subjective Time Seen by Provider: 06:36 Subjective/Events-last exam PT is doing much better. NO complications noted. Focused Exam Lactate Level 01/07/18 07:05: Lactic Acid Level 1.84 01/08/18 03:15: Lactic Acid Level 1.15 01/09/18 06:20: Lactic Acid Level 1.11 Exam Exam Vital Signs Date Time Temp Pulse Resp B/P (MAP) Pulse Ox O2 Delivery O2 Flow Rate FiO2 01/10/18 06:00 70 15 138/86 (103) 99 Nasal Cannula 2.00 01/10/18 05:00 69 15 131/74 (93) 99 Nasal Cannula 2.00 01/10/18 04:00 78 16 139/82 (101) 99 Nasal Cannula 2.00 01/10/18 03:55 97.7 01/10/18 03:10 97 Nasal Cannula 2.00 01/10/18 03:00 70 20 149/86 (107) 97 Nasal Cannula 2.00 01/10/18 02:00 73 16 139/78 (98) 100 Nasal Cannula 2.00 01/10/18 01:00 69 14 143/81 (101) 100 Nasal Cannula 2.00 01/10/18 01:00 70 01/10/18 00:00 69 16 145/74 (97) 98 Nasal Cannula 2.00 01/09/18 23:35 97 Nasal Cannula 2.00 01/09/18 23:20 99.0 01/09/18 23:00 72 15 133/66 (88) 100 Nasal Cannula 2.00 01/09/18 22:00 80 27 167/83 (111) Nasal Cannula 2.00 01/09/18 21:00 80 20 96 Nasal Cannula 2.00 01/09/18 20:00 79 16 95 Nasal Cannula 2.00 01/09/18 20:00 95 Nasal Cannula 2.00 01/09/18 19:00 99.1 Nasal Cannula 2.00 01/09/18 19:00 71 29 95 Nasal Cannula 2.00 01/09/18 19:00 80 01/09/18 18:00 80 20 104/99 (101) 96 Nasal Cannula 2.00 01/09/18 17:00 73 20 158/85 (109) 94 Nasal Cannula 2.00 01/09/18 16:01 72 24 143/84 (103) 92 Nasal Cannula 2.00 01/09/18 16:00 94 Nasal Cannula 2.00 01/09/18 15:00 71 12 123/82 (96) 94 Nasal Cannula 1.00 01/09/18 14:00 69 17 124/85 (98) 92 Nasal Cannula 1.00 01/09/18 13:00 69 25 101/73 (82) 93 Nasal Cannula 1.00 01/09/18 12:59 76 01/09/18 12:00 91 Nasal Cannula 1.00 01/09/18 12:00 71 22 122/87 (99) 98 Nasal Cannula 1.00 01/09/18 11:34 97.2 71 16 118/72 (87) 91 Nasal Cannula 1.00 01/09/18 11:00 69 19 113/75 (88) 95 Nasal Cannula 1.00 01/09/18 10:00 73 21 104/73 (83) 94 Nasal Cannula 1.00 01/09/18 09:00 74 20 119/85 (96) 94 Nasal Cannula 1.00 01/09/18 08:30 92 Nasal Cannula 1.00 01/09/18 08:16 97.9 71 19 105/78 (87) 92 Nasal Cannula 1.00 01/09/18 07:15 72 24 129/93 (105) 95 Nasal Cannula 2.00 01/09/18 07:00 71 I & O 01/10/18 07:00 Intake Total 1967 ml Output Total 3500 ml Balance -1533 ml General Appearance: Anxious HEENT: Normal ENT Inspection Neck: Normal Inspection Respiratory: No Accessory Muscle Use, No Respiratory Distress Cardiovascular: Irregularly Irregular Capillary Refill: Less Than 3 Seconds Peripheral Pulses: 2+ Radial Pulses (R), 2+ Radial Pulses (L) Gastrointestinal: soft, tenderness Extremity: Normal Capillary Refill, Normal Inspection, Normal Range of Motion, Non Tender Neurologic/Psychiatric: Alert, Oriented x3, No Motor/Sensory Deficits, Normal Mood/Affect, bottle packer II-XII Norm as Tested Skin: Normal Color, Warm/Dry Lymphatic: No Adenopathy Results Lab Laboratory Tests 01/08/18 15:10 01/09/18 04:10 01/10/18 03:25 Assessment/Plan Assessment/Plan Acute respiratory failure -Check echo -pending -Decrease to KVO Metabolic acidosis - improved cholelithiasis with cholecystitis s/p cholecystectomy POD # 2 -Leukocytosis - reactive vs infection -afebrile - still increasing -Add Flagyl to Zosyn -Pt has a hx of CDiff - currently no diarrhea -Pain control Anemia - post op -S/p 2 units PRBC AFib - anticoagulation was stopped secondary to bleeding -Start anticoagulation if ok with surgery -RN is going to discuss with cardiology and surgery -S/p 2 units of PRBC and 3 units of FFP nausea and vomiting UTI 233 Critical Care: Critically Ill Patient JENNIFER LERMA DO Jan 10, 2018 06:23
[2018-01-10] MEDS ORDERED: FUROSEMIDE 40 MG/4 ML INJ (LASIX) IVP NR (06:45)
[2018-01-10] MEDS ORDERED: metroNIDAZOLE 500MG/100ML IVPB 0 ML ONE (07:11)
[2018-01-10] MEDS: PANTOPRAZOLE 40 MG/10 ML (PROTONIX) VIAL IV SCH (08:10)
--- NOTE | 2018-01-10 08:12 | Diagnostic Imaging Report ---
INDICATION: Sepsis. Portable chest 3:26 AM FINDINGS: Patient has a dual-chamber pacemaker. Heart size and pulmonary vascularity are normal. There is some faint infiltrate in the right lower lung. Left lung is clear. There is no effusion or pneumothorax. IMPRESSION: Faint infiltrate and/or atelectasis right lower lung unchanged from previous day. Dictated by: Dictated on workstation # [id number]
[2018-01-10] MEDS: metroNIDAZOLE 500MG/100ML IVPB 100 ML IV SCH ×3 (08:19→22:41)
--- NOTE | 2018-01-10 10:47 | Progress Note-Hospitalist ---
Subjective HPI/CC On Admission Date Seen by Provider: Jan 10, 2018 Time Seen by Provider: 09:45 The patient is a 67-year-old white female who appeared early on 01/07 to the emergency room. Her findings were not totally congruent as to the etiology of her complaint however there had been some right upper quadrant pain and she reported inability to eat or fear to eat because of the right upper quadrant pain. Ultimately a gallbladder sonogram was consistent with acute cholecystitis. Dr. Moran from the surgery service felt that urgent cholecystectomy was in order. And he took her midday yesterday for cholecystectomy. He reports that the surgery was quite difficult with friability of the bile duct and the gallbladder. Significant bleeding was then produced from the gallbladder fossa. This was abetted by her previous anticoagulation which had been reversed with fresh frozen plasma. Subjective/Events-last exam Reviewed medical records Reviewed cardiology and pulmonology consultation reports Reports pain is about the same Very frail and appears to be a very medically complex and chronically ill 67- year-old Will perhaps need swing bed or inpatient rehabilitation ultimately Reviewed labs and meds Reports breathing better Family at the bedside Diuresis after Lasix given of 2000 mL already Uses CPAP at home Review of Systems General: Malaise Pulmonary: Dyspnea Gastrointestinal: Abdominal Pain Focused Exam Lactate Level 01/08/18 03:15: Lactic Acid Level 1.15 01/09/18 06:20: Lactic Acid Level 1.11 Objective Exam Vital Signs Vital Signs Date Time Temp Pulse Resp B/P (MAP) Pulse Ox O2 Delivery O2 Flow Rate FiO2 01/10/18 10:00 76 20 151/74 (99) 98 Nasal Cannula 2.00 01/10/18 08:27 97.2 01/08/18 04:14 25 Capillary Refill : Less Than 3 Seconds General Appearance: No Apparent Distress, WD/WN, Chronically ill, Obese Respiratory: Lungs Clear, Normal Breath Sounds, Decreased Breath Sounds Cardiovascular: Irregularly Irregular Extremity: Normal Capillary Refill, Normal Inspection, Normal Range of Motion, Non Tender, No Calf Tenderness, Pedal Edema Neurologic/Psychiatric: Alert, Oriented x3, No Motor/Sensory Deficits, Normal Mood/Affect Results/Procedures Lab Laboratory Tests 01/10/18 03:25 Patient resulted labs reviewed. Assessment/Plan Assessment and Plan Assess & Plan/Chief Complaint Assessment: Acute respiratory failure Status post urgent cholecystectomy due to cholecystitis with cholelithiasis Postop ileus Chronic atrial fibrillation Pacemaker Volume overload Plan: Pain control Transfer to 4th floor May need IRU or SB Critical Care Critical Care: Critically Ill Patient Diagnosis/Problems Diagnosis/Problems (1) Severe sepsis Status: Resolved (2) Urinary tract infection Status: Acute Qualifiers: Urinary tract infection type: acute cystitis Hematuria presence: with hematuria Qualified Codes: N30.01 - Acute cystitis with hematuria (3) Coagulopathy Status: Acute (4) MY (obstructive sleep apnea) Status: Chronic (5) Volume overload Status: Acute Qualifiers: Hypervolemia type: unspecified Qualified Codes: E87.70 - Fluid overload, unspecified (6) Acute cholecystitis Status: Acute (7) Atrial fibrillation and flutter Status: Chronic Clinical Quality Measures DVT/VTE Risk/Contraindication: Risk Factor Score Per Nursin RFS Level Per Nursing on Admit: 2=Moderate ELLIS POLLACK DO Jan 10, 2018 10:47
--- NOTE | 2018-01-10 11:37 | Physical Therapy Evaluation ---
PT Evaluation-General Medical Diagnosis Admission Date Jan 07, 2018 at 08:15 Medical Diagnosis: severe sepsis Onset Date: Jan 07, 2018 Therapy Diagnosis Therapy Diagnosis: debility/weakness Height/Weight Height (Feet): 4 Height (Inches): 11.00 Weight (Pounds): 148 Weight (Ounces): 0.0 Precautions Precautions/Isolations: Fall Prevention, Standard Precautions Weight Bear Status Right Lower Extremity: Right Full Weight Bearing Left Lower Extremity: Left Full Weight Bearing Referral Physician: Phyllis Reason for Referral: Evaluation/Treatment Medical History Pertinent Medical History: Atrial Fib, CAD (pacemaker), GERD, HTN Current History ED with vomiting/s/p lap namita with liver laceration Reviewed History: Yes Social History Home: Single Level Current Living Status: Spouse Prior/Core FIM Prior Level of Function Functional [place] Measure 0=Not Assessed/NA 4=Minimal Assistance 1=Total Assistance 5=Supervision or Setup 2=Maximal Assistance 6=Modified [place] 3=Moderate Assistance 7=Complete [place] Bed Mobility: 7 Transfers (B,C,W/C) (FIM): 7 Gait: 7 PT Evaluation-Current Subjective Patient agrees to PT. No c/o. Pain Numeric Pain Scale: 5-Moderate Pain Location: Lower Location Body Site: Abdomen Pain Description: Acute Objective Patient Orientation: Normal For Age Problem Solving: Fair Attachments: Oxygen, IV ROM/Strength ROM Lower Extremities bilateral LE WNL Strength Lower Extremities 4-/5 grossly bilaterally Integumentary/Posture Integumentary refer to nursing notes Bowel Incontinence: No Bladder Incontinence: No Posture WFL Neuromuscular (Tone, Coordination, Reflexes) grossly intact Sensory Vision: Functional Hearing: Functional Sensation Right Lower Extremit: Intact Sensation Left Lower Extremity: Intact Transfers Functional [place] Measure 0=Not Assessed/NA 4=Minimal Assistance 1=Total Assistance 5=Supervision or Setup 2=Maximal Assistance 6=Modified [place] 3=Moderate Assistance 7=Complete [place] Transfers (B, C, W/C) (FIM): 5 Scootin Rollin Supine to/from Sit: 5 Sit to/from Stand: 6 Gait Mode of Locomotion: Walk Anticipated Mode of Locomotion: Walk Gait (FIM): 5 Distance (FIM): 3=150 ft Distance: 300' Gait Level of Assist: 5 Gait Assistive Device: FWW Comments/Gait Description slow, safe and functional Balance Sitting Static: Normal Sitting Dynamic: Normal Standing Static: Normal Standing Dynamic: Normal Assessment/Needs 67 y.o. female, will benefit from short term skilled PT to address functional mobility and strength to improve current LOF and to safely return to home with spouse at maximum LOF. Rehab Potential: Good PT [facility] Goals Wet Mixer Goals PT Wet Mixer Goals Time Frame: Jan 18, 2018 Transfers (B,C,W/C) (FIM): 7 Gait (FIM): 7 Gait distance (FIM): 3=150 ft Gait Level of Assist: 7 Gait Assistive Device: None PT Plan Treatment/Plan Treatment Plan: Continue Plan of Care Treatment Plan: Bed Mobility, Education, Functional Activity Denny, Functional Strength, Gait, Safety, Therapeutic Exercise Treatment Duration: Jan 18, 2018 Frequency: 6 times per week Estimated Hrs Per Day: .25 hour per day Patient and/or Family Agrees t: Yes Discharge Recommendations Therapy D/C Recommendations: Home w/ Family Support Time/GCodes Time In: 1040 Time Out: 1103 Total Billed Treatment Time: 23 Total Billed Treatment 1 visit EVModC 23 min G Codes Necessary: No ASHANTI MAR PT Jan 10, 2018 11:37
--- NOTE | 2018-01-10 12:16 | Progress Note ---
Subjective Date Seen by Provider: Jan 10, 2018 Time Seen by Provider: 08:42 Subjective/Events-last exam Patient feeling a little better than yesterday. Pain controlled. Tolerating some diet, but not wanting to over do it. Breathing still some shortness of breath. Denies n/v fever sweats chills shortness of breath or chest pain. WBC increased slightly from yesterday. hgb increasing. chest x ray with right lower lobe early infiltrate. Focused Exam Lactate Level 01/08/18 03:15: Lactic Acid Level 1.15 01/09/18 06:20: Lactic Acid Level 1.11 Objective Exam Vital Signs Date Time Temp Pulse Resp B/P (MAP) Pulse Ox O2 Delivery O2 Flow Rate FiO2 01/10/18 10:00 76 20 151/74 (99) 98 Nasal Cannula 2.00 01/10/18 09:00 80 23 160/63 (95) 98 Nasal Cannula 2.00 01/10/18 08:30 95 Nasal Cannula 2.00 01/10/18 08:27 97.2 01/10/18 08:00 79 23 163/77 (105) 97 Nasal Cannula 2.00 01/10/18 07:00 73 21 154/79 (104) 98 Nasal Cannula 2.00 01/10/18 07:00 71 01/10/18 07:00 71 01/10/18 06:00 70 15 138/86 (103) 99 Nasal Cannula 2.00 01/10/18 05:00 69 15 131/74 (93) 99 Nasal Cannula 2.00 01/10/18 04:00 78 16 139/82 (101) 99 Nasal Cannula 2.00 01/10/18 03:55 97.7 01/10/18 03:10 97 Nasal Cannula 2.00 01/10/18 03:00 70 20 149/86 (107) 97 Nasal Cannula 2.00 01/10/18 02:00 73 16 139/78 (98) 100 Nasal Cannula 2.00 01/10/18 01:00 69 14 143/81 (101) 100 Nasal Cannula 2.00 01/10/18 01:00 70 01/10/18 00:00 69 16 145/74 (97) 98 Nasal Cannula 2.00 01/09/18 23:35 97 Nasal Cannula 2.00 01/09/18 23:20 99.0 01/09/18 23:00 72 15 133/66 (88) 100 Nasal Cannula 2.00 01/09/18 22:00 80 27 167/83 (111) Nasal Cannula 2.00 01/09/18 21:00 80 20 96 Nasal Cannula 2.00 01/09/18 20:00 79 16 95 Nasal Cannula 2.00 01/09/18 20:00 95 Nasal Cannula 2.00 01/09/18 19:00 99.1 Nasal Cannula 2.00 01/09/18 19:00 71 29 95 Nasal Cannula 2.00 01/09/18 19:00 80 01/09/18 18:00 80 20 104/99 (101) 96 Nasal Cannula 2.00 01/09/18 17:00 73 20 158/85 (109) 94 Nasal Cannula 2.00 01/09/18 16:01 72 24 143/84 (103) 92 Nasal Cannula 2.00 01/09/18 16:00 94 Nasal Cannula 2.00 01/09/18 15:00 71 12 123/82 (96) 94 Nasal Cannula 1.00 01/09/18 14:00 69 17 124/85 (98) 92 Nasal Cannula 1.00 01/09/18 13:00 69 25 101/73 (82) 93 Nasal Cannula 1.00 01/09/18 12:59 76 I & O 01/10/18 07:00 Intake Total 1967 ml Output Total 3500 ml Balance -1533 ml Capillary Refill : Less Than 3 Seconds General Appearance: No Apparent Distress, WD/WN, Chronically ill, Obese HEENT: Normal ENT Inspection Neck: Normal Inspection Respiratory: Lungs Clear, Normal Breath Sounds, Decreased Breath Sounds Cardiovascular: Irregularly Irregular Peripheral Pulses: 2+ Radial Pulses (R), 2+ Radial Pulses (L) Gastrointestinal: soft, tenderness (incisional) Extremity: Normal Capillary Refill, Normal Inspection, Normal Range of Motion, Non Tender, No Calf Tenderness, Pedal Edema Neurologic/Psychiatric: Alert, Oriented x3, No Motor/Sensory Deficits, Normal Mood/Affect Skin: Normal Color, Warm/Dry Lymphatic: No Adenopathy Results Lab Laboratory Tests 01/10/18 03:25: White Blood Count 14.8H, Red Blood Count 3.80L, Hemoglobin 10.6L, Hematocrit 34L , Mean Corpuscular Volume 88, Mean Corpuscular Hemoglobin 28, Mean Corpuscular Hemoglobin Concent 32, Red Cell Distribution Width 17.2H, Platelet Count 301, Mean Platelet Volume 10.2, Neutrophils (%) (Auto) 71, Lymphocytes (%) (Auto) 20 , Monocytes (%) (Auto) 9, Eosinophils (%) (Auto) 0, Basophils (%) (Auto) 0, Neutrophils # (Auto) 10.5H, Lymphocytes # (Auto) 2.9, Monocytes # (Auto) 1.3H, Eosinophils # (Auto) 0.1, Basophils # (Auto) 0.0, Neutrophils % (Manual) 74, Lymphocytes % (Manual) 16, Monocytes % (Manual) 10, Toxic Granulation 1+, Poikilocytosis SLIGHT, Anisocytosis SLIGHT, Microcytosis SLIGHT, Macrocytosis SLIGHT, Elliptocytes SLIGHT, Sodium Level 141, Potassium Level 3.7, Chloride Level 108H, Carbon Dioxide Level 23, Anion Gap 10, Blood Urea Nitrogen 13, Creatinine 0.77, Estimat Glomerular Filtration Rate > 60, BUN/Creatinine Ratio 17, Glucose Level 137H, Calcium Level 8.0L, Phosphorus Level 2.2L, Magnesium Level 2.1 Microbiology 01/07/18 Blood Culture - Preliminary, Resulted No growth 01/07/18 Gram Stain - Final, Complete 01/07/18 Sputum Culture - Final, Complete No growth 01/08/18 Urine Culture - Final, Complete NO GROWTH Assessment/Plan Assessment/Plan Assessment/Plan right upper quadrant abdominal pain nausea and vomiting cholelithiasis with cholecystitis chronic Coumadin use UTI anemia secondary to blood loss s/p lap namita ioc open control of bleeding liver venous sinus on zosyn and flagyl pt incentive spirometry likely move to floor today Clinical Quality Measures DVT/VTE Risk/Contraindication: Risk Factor Score Per Nursin RFS Level Per Nursing on Admit: 2=Moderate SARAI TOBIAS DO Jan 10, 2018 12:16
--- NOTE | 2018-01-10 14:28 | Occupational Therapy Eval ---
OT Evaluation-General/PLF Medical Diagnosis Admission Date Jan 07, 2018 at 08:15 Medical Diagnosis: severe sepsis Onset Date: Jan 07, 2018 Therapy Diagnosis Therapy Diagnosis: decr self care, decr act amos, decr funct mobility, weakness Height/Weight Height (Feet): 4 Height (Inches): 11.00 Weight (Pounds): 148 Weight (Ounces): 0.0 Precautions Precautions/Isolations: Fall Prevention, Standard Precautions Safety Interventions: None Referral Physician: Phyllis Referral Reason: Evaluation/Treatment Medical History Pertinent Medical History: Atrial Fib, CAD (pacemaker), Diverticulitis, GERD, HTN Additional Medical History Pacemaker, CPAP, sleep apnea. Chronic UTI. Anxiety, depression. Bilat loss of vision Current History Through ED with nausea/vomiting. Found to have cystitis, sepsis and cholecystitis. Had lap namita on 01-07-18. Reviewed History: Yes Social History Home: Single Level Current Living Status: Spouse ADL-Prior Level of Function ADL PLOF Comments Pt reported that she has been having trouble managing some ADLs and IADLs for about 1.5 years. She indicated part of the problem is not having the energy to complete chores and to bend over to get things low or off the floor. 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 She likes to take care of her grandchildren. OT Current Status Subjective Pt seen in room, up in recliner, agreeable to OT. Pain not mentioned. Appearance Alert, cooperative Current Glasses/Contacts: Yes Hand Dominance: Right Upper Extremity ROM Grossly WFL bilat Upper Extremity Sensation No problems, per pt report Upper Extremity Strength grossly 4/5 bilat Edema: In UEs ADL-Treatment ADL-Current She has just started eating foods post op and is looking forward to getting a shower. She would like information on energy conservation Functional [place] Measure 0=Not Assessed/NA 4=Minimal Assistance 1=Total Assistance 5=Supervision or Setup 2=Maximal Assistance 6=Modified [place] 3=Moderate Assistance 7=Complete IndependenceIRFPAI Quality Coding Scale 6 Independent with activity with or without an assistive device 5 Patient requires set up or clean up by helper. Patient completes activity by themselves 4 Supervision or touching assist (CGA). [place] provide cues , steadying assist 3 The helper provides less than half the effort to complete the activity 2 The helper provides more than half the effort to complete the activity 1 Dependent. The helper does all the effort to complete an activity 7 Patient refused to complete or attempt activity 9 The patient did not perform the activity before the current illness or injury 88 Not attempted due to Medical conditions or safety concerns Grooming (FIM): 5 (She was able to brush teeth and wash her face, with setup. ) Education OT Patient Education: Purpose of tx/functional activities, Rehab process Teaching Recipient: Patient Teaching Methods: Discussion Response to Teaching: Verbalize Understanding OT Loom Operator Apprentice Goals Loom Operator Apprentice Goals Time Frame: Jan 18, 2018 Eating (FIM): 6 Grooming(FIM): 6 Bathing(FIM): 5 Upper Body Dressing(FIM): 5 Lower Body Dressing(FIM): 5 Toileting(FIM): 5 Toilet/Commode Transfer(FIM): 5 Shower Transfer(FIM): 5 Additional Goals: 1-Demonstrate ADL Tasks, 2-Verbalize Understanding, 3- ImproveStrength/Denny 1=Demonstrate adherence to instructed precautions during ADL tasks. 2=Patient will verbalize/demonstrate understanding of assistive devices/ modifications for ADL. 3=Patient will improve strength/tolerance for activity to enable patient to perform ADL's. OT Education/Plan Problem List/Assessment Assessment: Decreased Activ Tolerance, Decreased UE Strength, Dependent Transfers, Edema, Impaired Self-Care Skills Pt would benefit from skilled OT to increase her independence with basic self care Discharge Recommendations Plan/Recommendations: Continue POC Treatment Plan/Plan of Care Treatment,Training & Education: Yes Patient would benefit from OT for education, treatment and training to promote independence in ADL's, mobility, safety and/or upper extremity function for ADL' s. Plan of Care: ADL Retraining, Functional Mobility, UE Funct Exercise/Act, OTHER (energy conservation education ) Treatment Duration: Jan 18, 2018 Frequency: 5 times per week Estimated Hrs Per Day: .5 hour per day Agreement: Yes Rehab Potential: Good Time/GCodes Start Time: 13:45 Stop Time: 14:05 Total Time Billed (hr/min): 20 Billed Treatment Time visit, 20 minutes evaluation moderate intensity AYUSH TAVAREZ OT Jan 10, 2018 14:28
--- NOTE | 2018-01-10 20:23 | Cardiology Progress Note ---
Cardiology SOAP Progress Note Subjective: no cardiac complaints Objective: I&O/Vital Signs 01/10/18 01/10/18 01/10/18 01/10/18 08:27 08:30 09:00 10:00 Temp 97.2 Pulse 80 76 Resp 23 20 B/P (MAP) 160/63 (95) 151/74 (99) Pulse Ox 95 98 98 O2 Delivery Nasal Cannula Nasal Cannula Nasal Cannula O2 Flow Rate 2.00 2.00 2.00 01/10/18 01/10/18 01/10/18 01/10/18 12:00 12:10 12:16 13:00 Temp 97.2 Pulse 70 85 Resp 24 B/P (MAP) 149/73 (98) Pulse Ox 99 96 O2 Delivery Nasal Cannula Nasal Cannula O2 Flow Rate 2.00 2.00 01/10/18 01/10/18 01/10/18 01/10/18 13:19 15:00 15:07 15:45 Temp 98.6 98.4 Pulse 79 86 77 Resp 20 18 B/P (MAP) 145/67 (93) 162/74 (103) Pulse Ox 96 93 91 O2 Delivery Nasal Cannula Nasal Cannula Room Air O2 Flow Rate 5.00 2.00 01/10/18 01/10/18 19:00 19:40 Temp 98.4 Pulse 81 64 Resp 18 B/P (MAP) 135/76 (95) Pulse Ox 90 O2 Delivery Room Air 01/10/18 00:00 Intake Total 370 ml Output Total 1250 ml Balance -880 ml Weight (Pounds): 148 Weight (Ounces): 0.0 Weight (Calculated Kilograms): [id number] Constitutional: AAO x 3 Respiratory: No accessory muscle use, No respiratory distress, No chest tender , No chest expansion is symmetric; chest is bilaterally symmetric; No lungs clear to percussion; lungs clear to auscultation; No crackles, No rhonchi, No rales, No stridor, No wheezing, No pleural rub, No other Cardiovascular: No regular rate-rhythm; irregularly irregular; No extra beats, No parasternal heave is noted, No JVD, No edema, No bradycardia, No tachycardia , No point of maximal impulse, No cardiac thrills are palpable; S1 and S2; No gallop/S3, No gallop/S4, No diastolic murmur, No systolic murmur, No friction rub, No click, No other Gastrointestional: tenderness Extremities: No normal range of motion, No non-tender, No normal inspection, No pedal edema, No calf tenderness, No normal capillary refill, No pelvis stable , No calf tenderness, No inflammation, No pedal edema, No slow capillary refill , No swelling, No other, No abrasion, No clubbing, No cyanosis, No ecchymosis, No laceration, No no lower extremity edema bilateral, No significant edema, No tenderness, No wound Neurologic/Psychiatric: no motor/sensory deficits, alert, normal mood/affect, oriented x 3 Results/Procedures: Labs Laboratory Tests 01/10/18 03:25: White Blood Count 14.8H, Red Blood Count 3.80L, Hemoglobin 10.6L, Hematocrit 34L , Mean Corpuscular Volume 88, Mean Corpuscular Hemoglobin 28, Mean Corpuscular Hemoglobin Concent 32, Red Cell Distribution Width 17.2H, Platelet Count 301, Mean Platelet Volume 10.2, Neutrophils (%) (Auto) 71, Lymphocytes (%) (Auto) 20 , Monocytes (%) (Auto) 9, Eosinophils (%) (Auto) 0, Basophils (%) (Auto) 0, Neutrophils # (Auto) 10.5H, Lymphocytes # (Auto) 2.9, Monocytes # (Auto) 1.3H, Eosinophils # (Auto) 0.1, Basophils # (Auto) 0.0, Neutrophils % (Manual) 74, Lymphocytes % (Manual) 16, Monocytes % (Manual) 10, Toxic Granulation 1+, Poikilocytosis SLIGHT, Anisocytosis SLIGHT, Microcytosis SLIGHT, Macrocytosis SLIGHT, Elliptocytes SLIGHT, Sodium Level 141, Potassium Level 3.7, Chloride Level 108H, Carbon Dioxide Level 23, Anion Gap 10, Blood Urea Nitrogen 13, Creatinine 0.77, Estimat Glomerular Filtration Rate > 60, BUN/Creatinine Ratio 17, Glucose Level 137H, Calcium Level 8.0L, Phosphorus Level 2.2L, Magnesium Level 2.1 Microbiology 01/07/18 Blood Culture - Preliminary, Resulted No growth 01/07/18 Gram Stain - Final, Complete 01/07/18 Sputum Culture - Final, Complete No growth 01/08/18 Urine Culture - Final, Complete NO GROWTH A/P: Assessment/Dx: Status post cholecystectomy, liver bleed that has been repaired, Coagulopathy, Atrial fibrillation, Permanent pacemaker, Cardiomyopathy, Chest pain, Moderate pulmonary hypertension, Moderate tricuspid regurgitation, Leukocytosis, Metabolic acidosis, Respiratory failure Plan: Status post cholecystectomy, liver bleed that has been repaired, deferred to surgical services. Coagulopathy, INR 1.7. FFP was given. Atrial fibrillation, controlled atrial fibrillation. Permanent pacemaker, no acute issues. Cardiomyopathy, echocardiogram done in this admission shows an EF of 3540 percent. Previous LV function was normal. Patient had coronary angiography in September 2017 which showed mild CAD. Therefore new-onset cardiomyopathy very likely nonischemic. Need to review device interrogation records since if the patient has significant RV pacing, that may be a reason for reduction of LV function. She may be a candidate for upgrade to bi-V ICD or biventricular pacemaker if the reason for reduction in LV function is significant RV pacing. Chest pain, negative serial troponins. EKG is nondiagnostic due to ventricularly paced rhythm. Coronary angiography done in September 2017 showed mild CAD therefore acute coronary syndrome is very unlikely. Moderate pulmonary hypertension, continue to monitor. Moderate tricuspid regurgitation, continue to monitor. No acute issues. Leukocytosis, Dr. Olsen following. Metabolic acidosis, Respiratory failure, improved. Could be secondary to acute systolic heart failure. Okay to give Lasix. Cardiac history of atrial fibrillation, permanent pacemaker, history of atrial flutter ablation, atrial fibrillation ablation, recurrent atrial fibrillation refractory to dofetilide. Patient follows with Dr. Hewitt for cardiology and Dr. Bridges for electrophysiology. Patient had coronary angiography in September 2017 which showed mild CAD with normal LV function. Transesophageal echocardiogram assisted cardioversion in 2016 was successful in converting atrial fibrillation to sinus rhythm. LV function was normal. Another echocardiogram was done in February 2016 which showed normal LV function, left atrial dilatation and moderate pulmonary hypertension. Thank you for your consultation. Please call me if you have any questions. Roderick Cole MD, FACP, FACC, FSCAI, FHRS, CCDS Interventional Cardiology Cardiac Electrophysiology Vascular Medicine and Endovascular Interventions Focused Exam Lactate Level 01/08/18 03:15: Lactic Acid Level 1.15 01/09/18 06:20: Lactic Acid Level 1.11 Breanne COLE MD Jan 10, 2018 8:23 pm
[2018-01-11] VITALS: BP 127/74
[2018-01-11] MEDS: fentaNYL INJECTION 100 MCG/2 ML AMP IVP PRN ×3 (01:03→08:52)
[2018-01-11 04:00] VITALS: BP 122/62
[2018-01-11] MEDS: PIPERACILLIN/TAZO 3.375 GM/D5W 100 ML IV SCH ×2 (04:13)
[2018-01-11] MEDS: metroNIDAZOLE 500MG/100ML IVPB 100 ML IV SCH (05:46)
[2018-01-11 06:09] LABS: HEMOGLOBIN 9.9 G/DL (11.5-16.0); MEAN PLATELET VOLUME 10.5 FL (7.4-10.4); RED BLOOD COUNT 3.63 10^6/uL (4.35-5.85); RED CELL DISTRIBUTION WIDTH 16.5 % (10.0-14.5); WHITE BLOOD COUNT 10.7 10^3/uL (4.3-11.0)
[2018-01-11 06:31] LABS: ALANINE AMINOTRANSFERASE 22 U/L (0-55); ALBUMIN 3.5 GM/DL (3.2-4.5); ALKALINE PHOSPHATASE 112 U/L (40-136); BILIRUBIN,TOTAL 1.6 MG/DL (0.1-1.0); BUN/CREATININE RATIO 16; CALCIUM 8.1 MG/DL (8.5-10.1); CARBON DIOXIDE 26 MMOL/L (21-32); CHLORIDE 102 MMOL/L (98-107); CREATININE SERUM 0.73 MG/DL (0.60-1.30); GFR ESTIMATED > 60; GLUCOSE 155 MG/DL (70-105); POTASSIUM 3.2 MMOL/L (3.6-5.0); SODIUM 138 MMOL/L (135-145); TOTAL PROTEIN 5.9 GM/DL (6.4-8.2)
[2018-01-11 08:02] VITALS: BP 153/84
[2018-01-11] MEDS: PANTOPRAZOLE 40 MG/10 ML (PROTONIX) VIAL IV SCH (08:51)
--- NOTE | 2018-01-11 09:21 | Pulmonary Progress Note ---
Subjective Time Seen by Provider: 09:20 Subjective/Events-last exam Pt appears to be doing better. Focused Exam Lactate Level 01/09/18 06:20: Lactic Acid Level 1.11 Exam Exam Vital Signs Date Time Temp Pulse Resp B/P (MAP) Pulse Ox O2 Delivery O2 Flow Rate FiO2 01/11/18 08:02 99.2 68 20 153/84 (107) 93 Room Air 01/11/18 07:00 71 01/11/18 04:00 98.1 68 16 122/62 (82) 92 Room Air 01/11/18 00:00 98.6 81 18 127/74 (91) 93 Room Air 01/10/18 20:00 Nasal Cannula 2.00 01/10/18 19:40 98.4 64 18 135/76 (95) 90 Room Air 01/10/18 19:00 81 01/10/18 15:45 98.4 77 18 162/74 (103) 91 Room Air 01/10/18 15:07 98.6 86 20 145/67 (93) 93 Nasal Cannula 2.00 01/10/18 15:00 96 Nasal Cannula 5.00 01/10/18 13:19 79 01/10/18 13:00 85 01/10/18 12:16 97.2 01/10/18 12:10 96 Nasal Cannula 2.00 01/10/18 12:00 70 24 149/73 (98) 99 Nasal Cannula 2.00 01/10/18 10:00 76 20 151/74 (99) 98 Nasal Cannula 2.00 I & O 01/11/18 07:00 Intake Total 2240 ml Output Total 4650 ml Balance -2410 ml General Appearance: No Apparent Distress, WD/WN, Chronically ill, Obese HEENT: Normal ENT Inspection Neck: Normal Inspection Respiratory: Lungs Clear, Normal Breath Sounds, Decreased Breath Sounds Cardiovascular: Irregularly Irregular Capillary Refill: Less Than 3 Seconds Peripheral Pulses: 2+ Radial Pulses (R), 2+ Radial Pulses (L) Gastrointestinal: soft, tenderness (incisional) Extremity: Normal Capillary Refill, Normal Inspection, Normal Range of Motion, Non Tender, No Calf Tenderness, Pedal Edema Neurologic/Psychiatric: Alert, Oriented x3, No Motor/Sensory Deficits, Normal Mood/Affect Skin: Normal Color, Warm/Dry Lymphatic: No Adenopathy Results Lab Laboratory Tests 01/10/18 03:25 01/11/18 05:18 Assessment/Plan Assessment/Plan Acute respiratory failure Metabolic acidosis - improved cholelithiasis with cholecystitis s/p cholecystectomy POD # 2 -Leukocytosis - improving since adding flagyl -Flagyl to Zosyn -Pt has a hx of CDiff - currently no diarrhea -Pain control New Cardiomyopathy EF 35-40% -Cardiology follwoing Anemia - post op -S/p 2 units PRBC AFib - anticoagulation was stopped secondary to bleeding -Start anticoagulation if ok with surgery -RN is going to discuss with cardiology and surgery -S/p 2 units of PRBC and 3 units of FFP Hypokalemia -replace nausea and vomiting UTI 233 Critical Care: Critically Ill Patient JENNIFER LERMA DO Jan 11, 2018 09:20
--- NOTE | 2018-01-11 09:46 | Physical Therapy Daily Note ---
PT Daily Note-Current Subjective Agrees to PT. Reports sitting still she feels ok, but has pain with transitional transfers. Pain Numeric Pain Scale: 4 Location: Anterior Location Body Site: Abdomen Pain Description: Ache Mental Status Patient Orientation: Person, Place, Time, Situation Transfers Functional [place] Measure 0=Not Assessed/NA 4=Minimal Assistance 1=Total Assistance 5=Supervision or Setup 2=Maximal Assistance 6=Modified [place] 3=Moderate Assistance 7=Complete IndependenceIRFPAI Quality Coding Scale 6 Independent with activity with or without an assistive device 5 Patient requires set up or clean up by helper. Patient completes activity by themselves 4 Supervision or touching assist (CGA). [place] provide cues , steadying assist 3 The helper provides less than half the effort to complete the activity 2 The helper provides more than half the effort to complete the activity 1 Dependent. The helper does all the effort to complete an activity 7 Patient refused to complete or attempt activity 9 The patient did not perform the activity before the current illness or injury 88 Not attempted due to Medical conditions or safety concerns Transfers (B, C, W/C) (FIM): 5 Sit to/from Stand: 5 (SBA with toilet transfer as well.) Stood at sink to wash her hands and brush her teeth with SBA. Transfers sit to from stand very slowly and cautiously. Weight Bearing Right Lower Extremity: Right Full Weight Bearing Left Lower Extremity: Left Full Weight Bearing Gait Training Gait (FIM): 5 Distance (FIM): 3=150 ft Distance: 200 ft Gait Level of Assist: 5 (SBA for safety) Gait Assistive Device: FWW slow gait, very intentional. Narrow JONNIE. Assessment Current Status: Good Progress Slow with mobility. Still having abdominal pain. SBA for all gait and transfer. PT Shelter Goals Shelter Goals PT Casualty Claims Supervisor Goals Time Frame: Jan 18, 2018 Transfers (B,C,W/C) (FIM): 7 Gait (FIM): 7 Gait distance (FIM): 3=150 ft Gait Level of Assist: 7 Gait Assistive Device: None PT Plan Problem List Problem List: Activity Tolerance, Functional Strength, Safety, Balance, Gait, Transfer, Bed Mobility Treatment/Plan Treatment Plan: Continue Plan of Care Treatment Plan: Bed Mobility, Education, Functional Activity Denny, Functional Strength, Gait, Safety, Therapeutic Exercise Treatment Duration: Jan 18, 2018 Frequency: 6 times per week Estimated Hrs Per Day: .25 hour per day Patient and/or Family Agrees t: Yes Safety Risks/Education Patient Education: Safety Issues Teaching Recipient: Patient Teaching Methods: Discussion Response to Teaching: Reinforcement Needed Time/GCodes Time In: 835 Time Out: 909 Total Billed Treatment Time: 34 Total Billed Treatment visit FA 34 TANNER JUDGE PT Jan 11, 2018 09:46
[2018-01-11] MEDS ORDERED: NS IV 500 ML 500 ML ONE (09:59)
[2018-01-11] MEDS ORDERED: NS IV 500 ML 500 ML IV ONE (10:00)
[2018-01-11] MEDS: POTASSIUM CL 10MEQ/50ML IVPB 50 ML IV SCH ×2 (10:04→10:11)
--- NOTE | 2018-01-11 10:38 | Discharge Summary-Hospitalist ---
Diagnosis/Chief Complaint Date of Admission Jan 07, 2018 at 08:15 Date of Discharge Discharge Date: Jan 11, 2018 Admission Diagnosis 1.acute cholecystitis. 2.apparent sepsis on the basis of vital signs and lactic acid Discharge Diagnosis (1) Severe sepsis Status: Resolved (2) Urinary tract infection Status: Acute (3) Coagulopathy Status: Acute (4) MY (obstructive sleep apnea) Status: Chronic (5) Volume overload Status: Acute (6) Acute cholecystitis Status: Acute (7) Atrial fibrillation and flutter Status: Chronic Discharge Summary Discharge Physical Exam Allergies: Coded Allergies: rosuvastatin (Unverified Allergy, Mild, 01/24/17) Sulfa (Sulfonamide Antibiotics) (Verified Allergy, Unknown, 01/24/17) Vitals & I&Os Vital Signs Date Time Temp Pulse Resp B/P (MAP) Pulse Ox O2 Delivery O2 Flow Rate FiO2 01/11/18 08:02 99.2 68 20 153/84 (107) 93 Room Air 01/10/18 20:00 2.00 01/08/18 04:14 25 General Appearance: Alert, Oriented X3, Cooperative Respiratory: Clear to Auscultation, Normal Air Movement Cardiovascular: Regular Rate, Normal S1, Normal S2 Neuro: Normal Gait, Normal Speech, Strength at 5/5 X4 Ext Psych/Mental Status: Mental Status NL, Mood NL Hospital Course Hospital course: patient had a complex hospital course she was admitted for severe sepsis treated for UTI and found to have acute cholecystitis with cholelithiasis that required an urgent removal that turned into an open procedure by Dr. Moran. Coagulopathy due to Coumadin was reversed required FFP and packed red blood cells and patient remained in acute respiratory failure managed by Dr. Olsen in the ICU. Overall her labs return back to stability patient was maintained on good antibiotic coverage and overall her critical illness left her with such severe debility she required swing bed status for physical therapy and to continue and complete IV antibiotics and will be closely monitored by cardiology, general surgery and hospitalist service. Labs (last 24 hrs) Laboratory Tests 01/11/18 05:18: White Blood Count 10.7, Red Blood Count 3.63L, Hemoglobin 9.9L, Hematocrit 32L, Mean Corpuscular Volume 87, Mean Corpuscular Hemoglobin 27, Mean Corpuscular Hemoglobin Concent 31L, Red Cell Distribution Width 16.5H, Platelet Count 287, Mean Platelet Volume 10.5H, Sodium Level 138, Potassium Level 3.2L, Chloride Level 102, Carbon Dioxide Level 26, Anion Gap 10, Blood Urea Nitrogen 12, Creatinine 0.73, Estimat Glomerular Filtration Rate > 60, BUN/Creatinine Ratio 16, Glucose Level 155H, Calcium Level 8.1L, Total Bilirubin 1.6H, Aspartate Amino Transf (AST/SGOT) 23, Alanine Aminotransferase (ALT/SGPT) 22, Alkaline Phosphatase 112, Total Protein 5.9L, Albumin 3.5 Microbiology 01/07/18 Blood Culture - Preliminary, Resulted No growth 01/07/18 Gram Stain - Final, Complete 01/07/18 Sputum Culture - Final, Complete No growth 01/08/18 Urine Culture - Final, Complete NO GROWTH Patient resulted labs reviewed. Pending Labs Laboratory Tests 01/11/18 05:18: White Blood Count 10.7, Red Blood Count 3.63, Hemoglobin 9.9, Hematocrit 32, Mean Corpuscular Volume 87, Mean Corpuscular Hemoglobin 27, Mean Corpuscular Hemoglobin Concent 31, Red Cell Distribution Width 16.5, Platelet Count 287, Mean Platelet Volume 10.5, Sodium Level 138, Potassium Level 3.2, Chloride Level 102, Carbon Dioxide Level 26, Anion Gap 10, Blood Urea Nitrogen 12, Creatinine 0.73, Estimat Glomerular Filtration Rate > 60, BUN/Creatinine Ratio 16, Glucose Level 155, Calcium Level 8.1, Total Bilirubin 1.6, Aspartate Amino Transf (AST/SGOT) 23, Alanine Aminotransferase (ALT/SGPT) 22, Alkaline Phosphatase 112, Total Protein 5.9, Albumin 3.5 Discussion & Recommendations Discharge Planning: <30 minutes discharge planning Discharge Home Medications: Active Scripts Active Reported Furosemide 20 Mg Tablet 40 Mg PO ON ODD DAYS TAKE 2 (20 MG) TABLETS ON ODD DAYS Escitalopram Oxalate 20 Mg Tablet 20 Mg PO DAILY Amiodarone HCl 200 Mg Tablet 400 Mg PO DAILY take 2 (200 mg) tablets once daily with food Metoprolol Succinate 25 Mg Tab.er.24h 25 Mg PO DAILY Pantoprazole Sodium 40 Mg Tablet.dr 40 Mg PO DAILY Spironolactone 25 Mg Tablet 25 Mg PO DAILY Alprazolam 0.5 Mg Tablet 0.25 Mg PO TID PRN TAKES 1/2 OF A (0.5 MG) TABLET Mexiletine HCl 200 Mg Capsule 200 Mg PO BID Warfarin Sodium 5 Mg Tablet 5 Mg PO SUTUTHSA Atorvastatin Calcium 40 Mg Tablet 40 Mg PO HS Furosemide 20 Mg Tablet 20 Mg PO ON EVEN DAYS Vitamin D3 (Cholecalciferol) 5,000 Unit Capsule 5,000 Unit PO DAILY Tylenol Pm (Acetaminophen/Diphenhydramine) 1 Ea Tab 1 Tab PO HS Instructions to patient/family Please see electronic discharge instructions given to patient. Clinical Quality Measures DVT/VTE Risk/Contraindication: Risk Factor Score Per Nursin RFS Level Per Nursing on Admit: 2=Moderate Problem Qualifiers (1) Urinary tract infection: Urinary tract infection type: acute cystitis Hematuria presence: with hematuria Qualified Codes: N30.01 - Acute cystitis with hematuria (2) Volume overload: Hypervolemia type: unspecified Qualified Codes: E87.70 - Fluid overload, unspecified ELLIS POLLACK DO Jan 11, 2018 10:38
[2018-01-11] MEDS ORDERED: cefTRIAXone 1 GM/NS 50 ML IVPB IV SCH ×2 (12:00)
--- NOTE | 2018-01-11 21:38 | Progress Note ---
Subjective Date Seen by Provider: Jan 11, 2018 Time Seen by Provider: 09:00 Subjective/Events-last exam feeling better. breathing slightly better. pain controlled, worse with movement. denies n/v fever sweats chills or chest pain. Focused Exam Lactate Level 01/09/18 06:20: Lactic Acid Level 1.11 Objective Exam Vital Signs Date Time Temp Pulse Resp B/P (MAP) Pulse Ox O2 Delivery O2 Flow Rate FiO2 01/11/18 08:02 99.2 68 20 153/84 (107) 93 Room Air 01/11/18 07:00 71 01/11/18 04:00 98.1 68 16 122/62 (82) 92 Room Air 01/11/18 00:00 98.6 81 18 127/74 (91) 93 Room Air I & O 01/11/18 07:00 Intake Total 2240 ml Output Total 4650 ml Balance -2410 ml Capillary Refill : Less Than 3 Seconds General Appearance: No Apparent Distress, WD/WN, Chronically ill, Obese HEENT: Normal ENT Inspection Neck: Normal Inspection Respiratory: Lungs Clear, Normal Breath Sounds, Decreased Breath Sounds Cardiovascular: Irregularly Irregular Peripheral Pulses: 2+ Radial Pulses (R), 2+ Radial Pulses (L) Gastrointestinal: soft, tenderness (incisional, no signs of infection) Extremity: Normal Capillary Refill, Normal Inspection, Normal Range of Motion, Non Tender, No Calf Tenderness, Pedal Edema Neurologic/Psychiatric: Alert, Oriented x3, No Motor/Sensory Deficits, Normal Mood/Affect Skin: Normal Color, Warm/Dry Lymphatic: No Adenopathy Results Lab Laboratory Tests 01/11/18 05:18: White Blood Count 10.7, Red Blood Count 3.63L, Hemoglobin 9.9L, Hematocrit 32L, Mean Corpuscular Volume 87, Mean Corpuscular Hemoglobin 27, Mean Corpuscular Hemoglobin Concent 31L, Red Cell Distribution Width 16.5H, Platelet Count 287, Mean Platelet Volume 10.5H, Sodium Level 138, Potassium Level 3.2L, Chloride Level 102, Carbon Dioxide Level 26, Anion Gap 10, Blood Urea Nitrogen 12, Creatinine 0.73, Estimat Glomerular Filtration Rate > 60, BUN/Creatinine Ratio 16, Glucose Level 155H, Calcium Level 8.1L, Total Bilirubin 1.6H, Aspartate Amino Transf (AST/SGOT) 23, Alanine Aminotransferase (ALT/SGPT) 22, Alkaline Phosphatase 112, Total Protein 5.9L, Albumin 3.5 Microbiology 01/07/18 Blood Culture - Preliminary, Resulted No growth 01/07/18 Gram Stain - Final, Complete 01/07/18 Sputum Culture - Final, Complete No growth 01/08/18 Urine Culture - Final, Complete NO GROWTH Assessment/Plan Assessment/Plan Assessment/Plan right upper quadrant abdominal pain nausea and vomiting cholelithiasis with cholecystitis chronic Coumadin use UTI anemia secondary to blood loss s/p lap namita ioc open control of bleeding liver venous sinus on zosyn and flagyl pt wbc down slight increase in bili follow labs incentive spirometry swing bed today Clinical Quality Measures DVT/VTE Risk/Contraindication: Risk Factor Score Per Nursin RFS Level Per Nursing on Admit: 2=Moderate SARAI TOBIAS DO Jan 11, 2018 21:38
== END 2018-01-11 10:59 | disposition swing bed (61) | DRG 853 ==
LOC: EDUNIT# 05:26 → ER 05:27 → 4TH 08:15 → ICU 16:58 → 4TH 01-10 14:45
PROVIDERS: ADMIT Internal Medicine; ATTEND Internal Medicine
PROC: BF101ZZ Fluoroscopy of Bile Ducts using Low Osmolar Contrast (ICD-10-PCS; 2018-01-07)
PROC: 0W3P0ZZ Control Bleeding in Gastrointestinal Tract, Open Approach (ICD-10-PCS; 2018-01-07)
PROC: 0FT44ZZ Resection of Gallbladder, Percutaneous Endoscopic Approach (ICD-10-PCS; principal; 2018-01-07 12:30)
DX: A41.9 Sepsis, unspecified organism (principal); R65.20 Severe sepsis without septic shock; N30.01 Acute cystitis with hematuria; K80.00 Calculus of gallbladder with acute cholecystitis without obstruction; J96.00 Acute respiratory failure, unspecified whether with hypoxia or hypercapnia; D62 Acute posthemorrhagic anemia; E87.2 Acidosis; I11.0 Hypertensive heart disease with heart failure; I50.21 Acute systolic (congestive) heart failure; D68.32 Hemorrhagic disorder due to extrinsic circulating 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; I42.9 Cardiomyopathy, unspecified; E87.6 Hypokalemia; K76.89 Other specified diseases of liver; D72.829 Elevated white blood cell count, unspecified; I48.91 Unspecified atrial fibrillation; G47.33 Obstructive sleep apnea (adult) (pediatric); E78.00 Pure hypercholesterolemia, unspecified; I25.10 Atherosclerotic heart disease of native coronary artery without angina pectoris; K21.9 Gastro-esophageal reflux disease without esophagitis; K57.90 Diverticulosis of intestine, part unspecified, without perforation or abscess without bleeding; F41.9 Anxiety disorder, unspecified; F32.9 Major depressive disorder, single episode, unspecified; I07.1 Rheumatic tricuspid insufficiency; I27.20 Pulmonary hypertension, unspecified; E87.70 Fluid overload, unspecified; Z77.22 Contact with and (suspected) exposure to environmental tobacco smoke (acute) (chronic); Z79.01 Long term (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; Z95.0 Presence of cardiac pacemaker; Z53.31 Laparoscopic surgical procedure converted to open procedure
CPT/HCPCS: 36415; 71045; 74018; 74177; 76705; 80048; 80053; 81000; 82247; 82570; 82805; 83605; 83690; 83735; 83880; 84100; 84300; 84478; 84484; 84540; 85007; 85014; 85018; 85025; 85027; 85610; 85730; 86850; 86900; 86901; 86920; 87040; 87070; 87081; 87088; 87186; 87205; 88304; 88305; 93005; 93041; 93306; 94002; 94003; 94664; 94799; 96361; 96365; 96375

== ENCOUNTER 2018-01-11 09:49 | Inpatient (IN) | payer MEDICARE, OTHER ==
[~2018-01-11] VITALS: Ht 149.9 cm; Wt 67.1 kg
[~2018-01-11 09:49] MED LIST changes: +AMIO200T4 PO; +ESCI10TA55
[2018-01-11] MEDS ORDERED: NS IV 500 ML 500 ML IV ONE (11:15)
--- NOTE | 2018-01-11 11:22 | Cardiology Progress Note ---
Cardiology SOAP Progress Note Subjective: No cardiac complaints. Objective: Weight (Pounds): 148 Weight (Ounces): 0.0 Weight (Calculated Kilograms): 67.080020 Constitutional: AAO x 3 Respiratory: No accessory muscle use, No respiratory distress, No chest tender , No chest expansion is symmetric; chest is bilaterally symmetric; No lungs clear to percussion; lungs clear to auscultation; No crackles, No rhonchi, No rales, No stridor, No wheezing, No pleural rub, No other Cardiovascular: regular rate-rhythm, S1 and S2 Gastrointestional: No tender, No soft, No round, No distended, No pulsatile mass, No organomegaly, No guarding, No rebound, No tenderness, No hernia, No mass, No audible bowel sounds, No abnormal bowel sounds, No abdominal bruits, No spleenomegaly, No other Extremities: No normal range of motion, No non-tender, No normal inspection, No pedal edema, No calf tenderness, No normal capillary refill, No pelvis stable , No calf tenderness, No inflammation, No pedal edema, No slow capillary refill , No swelling, No other, No abrasion, No clubbing, No cyanosis, No ecchymosis, No laceration, No no lower extremity edema bilateral, No significant edema, No tenderness, No wound Neurologic/Psychiatric: no motor/sensory deficits, alert, normal mood/affect, oriented x 3 Skin: No normal color, No warm/dry, No cyanosis, No cool, No diaphoresis, No damp, No ecchymosis, No jaundice, No mottled, No pallor, No rash, No tattoos/ piercings, No ulcerations, No rash on exposed areas, No ulcerations on exposed areas, No other A/P: Assessment/Dx: Assessment/Dx: Status post cholecystectomy, liver bleed that has been repaired, Coagulopathy, Atrial fibrillation, Permanent pacemaker, Cardiomyopathy, Chest pain, Moderate pulmonary hypertension, Moderate tricuspid regurgitation, Leukocytosis, Metabolic acidosis, Respiratory failure Plan: Plan: Status post cholecystectomy, liver bleed that has been repaired, deferred to surgical services. Coagulopathy, resolved. Atrial fibrillation, controlled atrial fibrillation. Restart oral anticoagulation when okay with surgery. Permanent pacemaker, no acute issues. Cardiomyopathy, echocardiogram done in this admission shows an EF of 3540 percent. Previous LV function was normal. Patient had coronary angiography in September 2017 which showed mild CAD. Therefore new-onset cardiomyopathy very likely nonischemic. Need to review device interrogation records since if the patient has significant RV pacing, that may be a reason for reduction of LV function. She may be a candidate for upgrade to bi-V ICD or biventricular pacemaker if the reason for reduction in LV function is significant RV pacing. She is a patient of Dr. Hewitt however he is on vacation for a month. I can follow-up after discharge if required. Chest pain, negative serial troponins. EKG is nondiagnostic due to ventricularly paced rhythm. Coronary angiography done in September 2017 showed mild CAD therefore acute coronary syndrome is very unlikely. Moderate pulmonary hypertension, continue to monitor. Moderate tricuspid regurgitation, continue to monitor. No acute issues. Leukocytosis, Dr. Olsen following. Metabolic acidosis, Respiratory failure, improved. Could be secondary to acute systolic heart failure. Okay to give Lasix. Cardiac history of atrial fibrillation, permanent pacemaker, history of atrial flutter ablation, atrial fibrillation ablation, recurrent atrial fibrillation refractory to dofetilide. Patient follows with Dr. Hewitt for cardiology and Dr. Bridges for electrophysiology. Patient had coronary angiography in September 2017 which showed mild CAD with normal LV function. Transesophageal echocardiogram assisted cardioversion in 2016 was successful in converting atrial fibrillation to sinus rhythm. LV function was normal. Another echocardiogram was done in February 2016 which showed normal LV function, left atrial dilatation and moderate pulmonary hypertension. Thank you for your consultation. Please call me if you have any questions. Roderick Cole MD, FACP, FACC, FSCAI, FHRS, CCDS Interventional Cardiology Cardiac Electrophysiology Vascular Medicine and Endovascular Interventions Breanne COLE MD Jan 11, 2018 11:22 am
[2018-01-11] MEDS: fentaNYL INJECTION 100 MCG/2 ML AMP IVP PRN ×4 (11:38→21:10)
[2018-01-11] MEDS: cefTRIAXone INJECTION 1,000 MG in NS (IVPB) 50 ML IV SCH (11:38)
[2018-01-11] MEDS: POTASSIUM CL 10MEQ/50ML IVPB 50 ML IV SCH ×2 (11:40→12:59)
--- NOTE | 2018-01-11 12:44 | Physical Therapy Evaluation ---
PT Evaluation-General Medical Diagnosis Admission Date Jan 11, 2018 at 11:08 Medical Diagnosis: sepsis Onset Date: Jan 11, 2018 Therapy Diagnosis Therapy Diagnosis: weakness;abn gait Height/Weight Height (Feet): 4 Height (Inches): 11.00 Weight (Pounds): 148 Weight (Ounces): 0.0 Precautions Precautions/Isolations: Standard Precautions Referral Physician: Phyllis Reason for Referral: Evaluation/Treatment Medical History Pertinent Medical History: Atrial Fib, CAD, Diverticulitis, GERD, HTN Current History acute cholecystitis. 2.apparent sepsis on the basis of vital signs and lactic ac Reviewed History: Yes Social History Home: Single Level Current Living Status: Spouse Entry Into Home: Stairs Without Railing (2) Prior/Core FIM Prior Level of Function Functional [place] Measure 0=Not Assessed/NA 4=Minimal Assistance 1=Total Assistance 5=Supervision or Setup 2=Maximal Assistance 6=Modified [place] 3=Moderate Assistance 7=Complete [place] Bed Mobility: 7 Transfers (B,C,W/C) (FIM): 7 Gait: 7 community ambulator PT Evaluation-Current Subjective Pt reports abdominal soreness; reports she knows she needs to move to get better. Pain Numeric Pain Scale: 4 Location Body Site: Abdomen Pain Description: Ache (sore) Objective Patient Orientation: Person, Place, Time, Situation Problem Solving: Good Attachments: IV ROM/Strength ROM Lower Extremities WNL Strenght Lower Extremities grossly 4/5 throughout Integumentary/Posture Integumentary refer to nursing notes. Bowel Incontinence: No Posture normal and symmetrical Neuromuscular (Tone, Coordination, Reflexes) wfl Sensory Vision: Functional Hearing: Functional Sensation Right Lower Extremit: Intact Sensation Left Lower Extremity: Intact Transfers Functional [place] Measure 0=Not Assessed/NA 4=Minimal Assistance 1=Total Assistance 5=Supervision or Setup 2=Maximal Assistance 6=Modified [place] 3=Moderate Assistance 7=Complete [place] Transfers (B, C, W/C) (FIM): 4 Sit to Lying (QC): 4 Lying to Sitting/Side of Bed(Q: 4 Sit to Stand (QC): 5 Chair/[id number]-Lzvqm Xfer(QC): 5 SBA with sit to stand transfers for safety. Gait Does the Patient Walk?: Yes Mode of Locomotion: Walk Anticipated Mode of Locomotion: Walk Gait (FIM): 5 Distance (FIM): 3=150 ft Walk 50 ft with 2 Turns(QC): 5 Walk 150 ft (QC): 5 Gait Assistive Device: FWW Comments/Gait Description sBA with gait for safety. Slow and steady. narrow JONNIE. Wheelchair Training Does the Pt Use a Wheelchair?: No Balance Sitting Static: Good Sitting Dynamic: Good Standing Static: Fair Standing Dynamic: Fair Treatment Education on importance of regular mobility and safety. Eduation on deep breathing to reduce the risk of pneumonia Assessment/Needs Pt presents post surgery with decreased functional mobility due to pain. She will benefit from skilled Pt intervention to work on strength and mobiolity to allow her to return home as before. Rehab Potential: Good PT Half-Way Goals Office Services Coordinator Goals PT Half-Way Goals Time Frame: Jan 18, 2018 Transfers (B,C,W/C) (FIM): 7 Sit to Lying (QC): 6 Lying-Sitting on Side/Bed(QC): 6 Sit to Stand (QC): 6 Chair/[id number]-Vbqnz Xfer(QC): 6 Does the Patient Walk: Yes Gait (FIM): 6 Gait distance (FIM): 3=150 ft Gait Assistive Device: FWW Does the Pt use WC or Scooter?: No PT Plan Problem List Problem List: Activity Tolerance, Functional Strength, Safety, Balance, Gait, Transfer, Bed Mobility Treatment/Plan Treatment Plan: Continue Plan of Care Treatment Plan: Bed Mobility, Education, Functional Activity Denny, Functional Strength, Gait, Safety, Therapeutic Exercise, Transfers Treatment Duration: Jan 18, 2018 Frequency: 6 times per week Estimated Hrs Per Day: .25 hour per day Patient and/or Family Agrees t: Yes Safety Risks/Education Patient Education: Safety Issues Teaching Recipient: Patient Teaching Methods: Demonstration, Discussion Response to Teaching: Reinforcement Needed Time/GCodes Time In: 1200 Time Out: 1220 Total Billed Treatment Time: 20 Total Billed Treatment visit EVM 20 TANNER JUDGE PT Jan 11, 2018 12:44
[2018-01-11] MEDS ORDERED: KCL 10 MEQ TAB (MICRO K) PO NR (13:00)
[2018-01-11] MEDS: metroNIDAZOLE 500MG/100ML IVPB 100 ML IV SCH ×3 (13:25→22:59)
--- NOTE | 2018-01-11 16:14 | Occupational Therapy Eval ---
OT Evaluation-General/PLF Medical Diagnosis Admission Date Jan 11, 2018 at 11:08 Medical Diagnosis: sepsis Onset Date: Jan 07, 2018 Therapy Diagnosis Therapy Diagnosis: decr self care, decr act amos, decr funct mob, weakness Height/Weight Height (Feet): 4 Height (Inches): 11.00 Weight (Pounds): 148 Weight (Ounces): 0.0 Precautions Precautions/Isolations: Standard Precautions Referral Physician: Phyllis Referral Reason: Evaluation/Treatment Medical History Pertinent Medical History: Atrial Fib, CAD, Diverticulitis, GERD, HTN Additional Medical History Pacemaker, CPAP, sleep apnea. Chronic UTI. Anxiety, depression. Bilat loss of vision Current History Through ED with nausea/vomiting. Found to have cystitis, sepsis and cholecystitis. Had lap namita on 01-07-18 Social History Home: Single Level Current Living Status: Spouse Entry Into Home: Stairs Without Railing (2) ADL-Prior Level of Function ADL PLOF Comments Pt reported that she has been having trouble managing some ADLs and IADLs for about 1.5 years. She indicated part of the problem is not having the energy to complete chores and to bend over to get things low or off the floor. 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 She likes to take care of her grandchildren OT Current Status Subjective Pt seen in room, up in recliner, agreeable to OT. Pain not mentioned Appearance Alert, cooperative Mental Status/Objective Attachments: Saline Lock, Telemetry Current Glasses/Contacts: Yes Hand Dominance: Right Upper Extremity ROM Grossly WFL bilat Upper Extremity Strength Grossly 4/5 bilat Edema: Decreased in UEs ADL-Treatment ADL-Current Pt reported that she has been able to open packages and feed herself, modified diet, although she hasn't had much of an appetite. She got up out of the recliner with SBA for safety and walked slowly to bathroom with SBA, FWW to stand at the sink to brush her teeth and wash her hands. She also walked to the toilet and was able to get on/off toilet with SBA and pt educ for mod technique. She managed her clothing and hygiene in front but reported that she has not been able to wipe in the back. She was very pleased to have gotten a shower last evening and said that she washed with bath pack today. Pt walked back to recliner, got into chair by herself and was able to scoot back into chair. Lips were bluish throughout tx. Pt left up in recliner, all needs met. Functional [place] Measure 0=Not Assessed/NA 4=Minimal Assistance 1=Total Assistance 5=Supervision or Setup 2=Maximal Assistance 6=Modified [place] 3=Moderate Assistance 7=Complete IndependenceIRFPAI Quality Coding Scale 6 Independent with activity with or without an assistive device 5 Patient requires set up or clean up by helper. Patient completes activity by themselves 4 Supervision or touching assist (CGA). [place] provide cues , steadying assist 3 The helper provides less than half the effort to complete the activity 2 The helper provides more than half the effort to complete the activity 1 Dependent. The helper does all the effort to complete an activity 7 Patient refused to complete or attempt activity 9 The patient did not perform the activity before the current illness or injury 88 Not attempted due to Medical conditions or safety concerns Eating (FIM): 6 Eating (QC): 6 Grooming (FIM): 5 (SBA, FWW) Oral Hygiene (QC): 4 (SBA) Toileting (FIM): 3 (Managed clothing but help needed to wipe ) Toileting Hygiene (QC): 3 (Managed clothing but help to wipe) Toilet/Commode Transfer (FIM): 5 (SBA) Toilet Transfer (QC): 4 (SBA) Education OT Patient Education: Modified ADL techniques, Progress toward Goal/Update tx plan, Purpose of tx/functional activities, Rehab process, Transfer techniques Teaching Recipient: Patient Teaching Methods: Discussion Response to Teaching: Verbalize Understanding, Return Demonstration, Reinforcement Needed OT Mcc Goals Mcc Goals Time Frame: Jan 18, 2018 Eating (FIM): 6 Eating (QC): 6 Groomin Oral Hygiene (QC): 6 Upper Body Dressing(FIM): 5 Lower Body Dressing(FIM): 5 Toileting(FIM): 6 Toileting Hygiene (QC): 6 Toilet/Commode Transfer(FIM): 6 Toilet/Commode Transfer (QC): 6 Pt will verbalize three ways to conserve her energy at home Additional Goals: 1-Demonstrate ADL Tasks, 2-Verbalize Understanding, 3- ImproveStrength/Denny 1=Demonstrate adherence to instructed precautions during ADL tasks. 2=Patient will verbalize/demonstrate understanding of assistive devices/ modifications for ADL. 3=Patient will improve strength/tolerance for activity to enable patient to perform ADL's. OT Education/Plan Problem List/Assessment Assessment: Decreased Activ Tolerance, Decreased UE Strength, Dependent Transfers, Edema, Impaired Self-Care Skills Pt would benefit from skilled OT to increase her independence iin basic self care to allow her to safely return home Discharge Recommendations Plan/Recommendations: Continue POC Treatment Plan/Plan of Care Treatment,Training & Education: Yes Patient would benefit from OT for education, treatment and training to promote independence in ADL's, mobility, safety and/or upper extremity function for ADL' s. Plan of Care: ADL Retraining, Functional Mobility, UE Funct Exercise/Act, UE Neuromus Re-Ed/Coord, OTHER (energy conservation education) Treatment Duration: Jan 18, 2018 Frequency: 5 times per week Estimated Hrs Per Day: .5 hour per day Agreement: Yes Rehab Potential: Good Time/GCodes Start Time: 14:45 Stop Time: 15:12 Total Time Billed (hr/min): 27 Billed Treatment Time visit, 12 minutes evaluation, 15 minutes ADL AYUSH TAVAREZ OT Jan 11, 2018 16:14
[2018-01-11 18:00] VITALS: BP 151/78
[2018-01-11] MEDS: ONDANSETRON 4 MG/2 ML (SDV) Z0FRAN IV PRN (21:08)
[2018-01-11] MEDS: ALPRAZolam 0.25 MG (XANAX) TAB PO PRN (21:13)
[2018-01-11] MEDS ORDERED: HYDROcodone/APAP 5 MG/325 MG (LORTAB) TAB ONE (21:56)
[2018-01-11] MEDS: HYDROcodone/APAP 5 MG/325 MG (LORTAB) TAB PO PRN (22:00)
[2018-01-12 05:56] VITALS: BP 167/92
[2018-01-12] MEDS: metroNIDAZOLE 500MG/100ML IVPB 100 ML IV SCH ×3 (06:04→22:32)
[2018-01-12] MEDS: HYDROcodone/APAP 5 MG/325 MG (LORTAB) TAB PO PRN ×2 (06:05→17:30)
[2018-01-12] MEDS ORDERED: PANTOPRAZOLE 40 MG/10 ML (PROTONIX) VIAL IV SCH (09:00)
--- NOTE | 2018-01-12 09:30 | Progress Note ---
Subjective Date Seen by Provider: Jan 12, 2018 Time Seen by Provider: 09:24 Subjective/Events-last exam patient feeling better today. Tolerating diet. No bm. Pain controlled. denies n/v fever sweats chills shortness of breath or chest pain. Objective Exam Vital Signs Date Time Temp Pulse Resp B/P (MAP) Pulse Ox O2 Delivery O2 Flow Rate FiO2 01/12/18 05:56 97.0 72 18 167/92 (117) 97 Room Air 01/11/18 21:00 Room Air 01/11/18 18:00 99.0 83 18 151/78 (102) 95 Room Air I & O 01/12/18 07:00 Intake Total 1589 ml Output Total 725 ml Balance 864 ml Capillary Refill : General Appearance: No Apparent Distress (sitting in chair) HEENT: PERRL/EOMI Neck: Supple Respiratory: No Accessory Muscle Use, No Respiratory Distress Cardiovascular: Irregularly Irregular Gastrointestinal: soft (incision c/d/i no erythema) Extremity: Swelling Neurologic/Psychiatric: Alert, Oriented x3, Normal Mood/Affect Skin: Warm/Dry Lymphatic: No Adenopathy Assessment/Plan Assessment/Plan Assessment/Plan s/p lap namita ioc, with open control of bleeding liver sinus cholecystitis, cholelithiasis afib n/v continue iv abx diet may restart coumadin constipation-miralax bid until bm will follow Clinical Quality Measures DVT/VTE Risk/Contraindication: Risk Factor Score Per Nursin SARAI TOBIAS DO Jan 12, 2018 09:30
--- NOTE | 2018-01-12 10:35 | Physical Therapy Daily Note ---
PT Daily Note-Current Subjective Pt is agreeable to treatment. Transfers Functional [place] Measure 0=Not Assessed/NA 4=Minimal Assistance 1=Total Assistance 5=Supervision or Setup 2=Maximal Assistance 6=Modified [place] 3=Moderate Assistance 7=Complete IndependenceIRFPAI Quality Coding Scale 6 Independent with activity with or without an assistive device 5 Patient requires set up or clean up by helper. Patient completes activity by themselves 4 Supervision or touching assist (CGA). [place] provide cues , steadying assist 3 The helper provides less than half the effort to complete the activity 2 The helper provides more than half the effort to complete the activity 1 Dependent. The helper does all the effort to complete an activity 7 Patient refused to complete or attempt activity 9 The patient did not perform the activity before the current illness or injury 88 Not attempted due to Medical conditions or safety concerns Gait Training Does the Patient Walk?: Yes Gait (FIM): 5 Distance (FIM): 3=150 ft Distance: 400ft Walk 50 ft with 2 Turns(QC): 5 Walk 150 ft (QC): 5 Gait Level of Assist: 5 Gait Persons Needed: 1 Gait Assistive Device: FWW Assessment Pt is performing transfers (I), and ambulation is stable throughout the 400ft. PT Penitentiary Goals Penitentiary Goals PT Penitentiary Goals Time Frame: Jan 18, 2018 Transfers (B,C,W/C) (FIM): 7 Sit to Lying (QC): 6 Lying-Sitting on Side/Bed(QC): 6 Sit to Stand (QC): 6 Chair/[id number] Xfer(QC): 6 Does the Patient Walk: Yes Gait (FIM): 6 Gait distance (FIM): 3=150 ft Gait Assistive Device: FWW Does the Pt use WC or Scooter?: No PT Plan Treatment/Plan Treatment Plan: Continue Plan of Care Treatment Plan: Bed Mobility, Education, Functional Activity Denny, Functional Strength, Gait, Safety, Therapeutic Exercise, Transfers Treatment Duration: Jan 18, 2018 Frequency: 6 times per week Estimated Hrs Per Day: .25 hour per day Patient and/or Family Agrees t: Yes Time/GCodes Time In: 0950 Time Out: 1007 Total Billed Treatment Time: 17 Total Billed Treatment 1, gt 17 LUCAS SINGLETARY PT Jan 12, 2018 10:35
--- NOTE | 2018-01-12 10:44 | Progress Note-Hospitalist ---
Subjective HPI/CC On Admission Date Seen by Provider: Jan 12, 2018 Time Seen by Provider: 10:15 Subjective/Events-last exam Patient doing well overall We'll check labs in morning and monitor total bilirubin Bowels not moving yet that MiraLAX is being given Pain is still an issue but better every day Lower extremity edema is something that I counseled her about interval take weeks to dissipate that it's from all of the fluids we gave her during her critical illness Overall patient doing very well and I reassured her Patient's blood pressure is very elevated and I did note that she takes Lasix at home so I will initiate 40 mg Lasix IV 1 now Review of Systems General: Fatigue Cardiovascular: Edema Gastrointestinal: Abdominal Pain Objective Exam Vital Signs Vital Signs Date Time Temp Pulse Resp B/P (MAP) Pulse Ox O2 Delivery O2 Flow Rate FiO2 01/12/18 08:05 Room Air 01/12/18 05:56 97.0 72 18 167/92 (117) 97 Capillary Refill : General Appearance: No Apparent Distress, WD/WN, Chronically ill, Obese Respiratory: Lungs Clear, Normal Breath Sounds Cardiovascular: Irregularly Irregular Gastrointestinal: Soft Extremity: Pedal Edema Neurologic/Psychiatric: Alert, Oriented x3, No Motor/Sensory Deficits, Normal Mood/Affect Results/Procedures Lab Patient resulted labs reviewed. Assessment/Plan Assessment and Plan Assess & Plan/Chief Complaint Assessment: Status post critical illness now with severe debility requiring swing bed status Lower extremity edema acute on chronic issue Plan: Lasix IV 1 now Ambulate Pain control MiraLAX Check labs in morning Diagnosis/Problems Diagnosis/Problems (1) Status post cholecystectomy Status: Acute (2) Edema Status: Acute Qualifiers: Edema type: unspecified Qualified Codes: R60.9 - Edema, unspecified (3) Atrial fibrillation Status: Chronic Qualifiers: Atrial fibrillation type: chronic Qualified Codes: I48.2 - Chronic atrial fibrillation (4) Hypertension Status: Chronic Qualifiers: Hypertension type: essential hypertension Qualified Codes: I10 - Essential (primary) hypertension (5) Bilirubinemia Status: Acute (6) Debility Status: Acute (7) Volume overload Status: Acute (8) MY (obstructive sleep apnea) Status: Chronic (9) Coagulopathy Status: Acute Clinical Quality Measures DVT/VTE Risk/Contraindication: Risk Factor Score Per Nursin ELLIS POLLACK DO Jan 12, 2018 10:44
[2018-01-12] MEDS ORDERED: FUROSEMIDE 40 MG/4 ML INJ (LASIX) IVP NR (10:45)
[2018-01-12] MEDS ORDERED: KCL 20 MEQ TAB (K-DUR) PO NR (10:45)
[2018-01-12] MEDS: POLYETHYLENE GLYCOL 17 GM (MIRALAX) PACK PO SCH ×2 (10:51→19:54)
[2018-01-12] MEDS ORDERED: PANTOPRAZOLE 40 MG (PROTONIX) TAB PO ONE (10:53)
[2018-01-12] MEDS: PANTOPRAZOLE 40 MG (PROTONIX) TAB PO SCH (10:56)
[2018-01-12] MEDS: ONDANSETRON 4 MG/2 ML (SDV) Z0FRAN IV PRN (11:01)
[2018-01-12] MEDS: cefTRIAXone INJECTION 1,000 MG in NS (IVPB) 50 ML IV SCH (12:31)
--- NOTE | 2018-01-12 16:35 | Cardiology Progress Note ---
Cardiology SOAP Progress Note Subjective: No cardiac complaints Objective: I&O/Vital Signs 01/12/18 01/12/18 05:56 08:05 Temp 97.0 Pulse 72 Resp 18 B/P (MAP) 167/92 (117) Pulse Ox 97 O2 Delivery Room Air Room Air 01/12/18 00:00 Intake Total 1439 ml Output Total 500 ml Balance 939 ml Weight (Pounds): 148 Weight (Ounces): 0.0 Weight (Calculated Kilograms): 67.265117 Constitutional: AAO x 3 Respiratory: No accessory muscle use, No respiratory distress, No chest tender , No chest expansion is symmetric; chest is bilaterally symmetric; No lungs clear to percussion; lungs clear to auscultation; No crackles, No rhonchi, No rales, No stridor, No wheezing, No pleural rub, No other Cardiovascular: regular rate-rhythm, S1 and S2 Gastrointestional: No tender, No soft, No round, No distended, No pulsatile mass, No organomegaly, No guarding, No rebound, No tenderness, No hernia, No mass, No audible bowel sounds, No abnormal bowel sounds, No abdominal bruits, No spleenomegaly, No other Extremities: No normal range of motion, No non-tender, No normal inspection, No pedal edema, No calf tenderness, No normal capillary refill, No pelvis stable , No calf tenderness, No inflammation, No pedal edema, No slow capillary refill , No swelling, No other, No abrasion, No clubbing, No cyanosis, No ecchymosis, No laceration, No no lower extremity edema bilateral, No significant edema, No tenderness, No wound Neurologic/Psychiatric: no motor/sensory deficits, alert, normal mood/affect, oriented x 3 Skin: No normal color, No warm/dry, No cyanosis, No cool, No diaphoresis, No damp, No ecchymosis, No jaundice, No mottled, No pallor, No rash, No tattoos/ piercings, No ulcerations, No rash on exposed areas, No ulcerations on exposed areas, No other A/P: Assessment/Dx: Assessment/Dx: Status post cholecystectomy, liver bleed that has been repaired, Coagulopathy, Atrial fibrillation, Permanent pacemaker, Cardiomyopathy, Chest pain, Moderate pulmonary hypertension, Moderate tricuspid regurgitation, Leukocytosis, Metabolic acidosis, Respiratory failure Plan: Plan: Status post cholecystectomy, liver bleed that has been repaired, deferred to surgical services. Coagulopathy, resolved. Atrial fibrillation, controlled atrial fibrillation. Coumadin will be started today as per surgery. Permanent pacemaker, no acute issues. Cardiomyopathy, echocardiogram done in this admission shows an EF of 3540 percent. Previous LV function was normal. Patient had coronary angiography in September 2017 which showed mild CAD. Therefore new-onset cardiomyopathy very likely nonischemic. Need to review device interrogation records since if the patient has significant RV pacing, that may be a reason for reduction of LV function. She may be a candidate for upgrade to bi-V ICD or biventricular pacemaker if the reason for reduction in LV function is significant RV pacing. She is a patient of Dr. Hewitt however he is on vacation for a month. I can follow-up after discharge if required. Chest pain, negative serial troponins. EKG is nondiagnostic due to ventricularly paced rhythm. Coronary angiography done in September 2017 showed mild CAD therefore acute coronary syndrome is very unlikely. Moderate pulmonary hypertension, continue to monitor. Moderate tricuspid regurgitation, continue to monitor. No acute issues. Leukocytosis, Dr. Olsen following. Metabolic acidosis, Respiratory failure, improved. Could be secondary to acute systolic heart failure. Okay to give Lasix. Cardiac history of atrial fibrillation, permanent pacemaker, history of atrial flutter ablation, atrial fibrillation ablation, recurrent atrial fibrillation refractory to dofetilide. Patient follows with Dr. Hewitt for cardiology and Dr. Bridges for electrophysiology. Patient had coronary angiography in September 2017 which showed mild CAD with normal LV function. Transesophageal echocardiogram assisted cardioversion in 2016 was successful in converting atrial fibrillation to sinus rhythm. LV function was normal. Another echocardiogram was done in February 2016 which showed normal LV function, left atrial dilatation and moderate pulmonary hypertension. Thank you for your consultation. Please call me if you have any questions. Roderick Cole MD, FACP, FACC, FSCAI, FHRS, CCDS Interventional Cardiology Cardiac Electrophysiology Vascular Medicine and Endovascular Interventions Breanne COLE MD Jan 12, 2018 4:35 pm
[2018-01-12 17:45] VITALS: BP 151/72
[2018-01-12] MEDS: warFARin 5 MG (COUMADIN) TAB PO SCH (19:11)
[2018-01-12] MEDS ORDERED: POLYETHYLENE GLYCOL 17 GM (MIRALAX) PACK PO ONE (21:00)
[2018-01-13] MEDS: HYDROcodone/APAP 5 MG/325 MG (LORTAB) TAB PO PRN ×3 (03:50→21:31)
[2018-01-13 03:59] LABS: BASOPHILS # (AUTO) 0.1 10^3/uL (0.0-0.1); BASOPHILS % (AUTO) 1 % (0-10); EOSINOPHILS # (AUTO) 0.4 10^3/uL (0.0-0.3); EOSINOPHILS % (AUTO) 3 % (0-10); HEMATOCRIT 32 % (35-52); HEMOGLOBIN 10.1 G/DL (11.5-16.0); LYMPHOCYTES # (AUTO) 2.8 X 10^3 (1.0-4.0); LYMPHOCYTES % (AUTO) 26 % (12-44); MEAN CORPUSCULAR HEMOGLOBIN 27 PG (25-34); MEAN CORPUSCULAR HGB CONC 31 G/DL (32-36); MEAN CORPUSCULAR VOLUME 86 FL (80-99); MEAN PLATELET VOLUME 10.2 FL (7.4-10.4); MONOCYTES % (AUTO) 9 % (0-12); NEUTROPHILS # (AUTO) 6.8 X 10^3 (1.8-7.8); NEUTROPHILS % (AUTO) 62 % (42-75); PLATELET COUNT 321 10^3/uL (130-400); RED BLOOD COUNT 3.76 10^6/uL (4.35-5.85); RED CELL DISTRIBUTION WIDTH 16.7 % (10.0-14.5); WHITE BLOOD COUNT 11.1 10^3/uL (4.3-11.0)
[2018-01-13 04:22] LABS: ALANINE AMINOTRANSFERASE 17 U/L (0-55); ALBUMIN 3.5 GM/DL (3.2-4.5); ALKALINE PHOSPHATASE 122 U/L (40-136); BILIRUBIN,TOTAL 1.3 MG/DL (0.1-1.0); BUN/CREATININE RATIO 16; CALCIUM 8.7 MG/DL (8.5-10.1); CARBON DIOXIDE 26 MMOL/L (21-32); CHLORIDE 105 MMOL/L (98-107); GFR ESTIMATED > 60; GLUCOSE 98 MG/DL (70-105); POTASSIUM 3.7 MMOL/L (3.6-5.0); SODIUM 140 MMOL/L (135-145)
[2018-01-13 06:11] VITALS: BP 142/77
[2018-01-13] MEDS: PANTOPRAZOLE 40 MG (PROTONIX) TAB PO SCH (06:14)
[2018-01-13] MEDS: metroNIDAZOLE 500MG/100ML IVPB 100 ML IV SCH (06:14)
[2018-01-13] MEDS ORDERED: KCL 20 MEQ TAB (K-DUR) PO SCH (07:00)
[2018-01-13] MEDS: POLYETHYLENE GLYCOL 17 GM (MIRALAX) PACK PO SCH ×2 (10:24→18:23)
--- NOTE | 2018-01-13 12:04 | Progress Note-Hospitalist ---
Subjective HPI/CC On Admission Date Seen by Provider: Jan 13, 2018 Time Seen by Provider: 11:00 Subjective/Events-last exam Patient doing well overall and thinks so but patient does not think she is progressing at all Labs revealed an total bilirubin 1.3 Will recheck INR tomorrow since restarted Coumadin yesterday Lower extremity edema continues to be an issue she takes Lasix at home so we'll give another IV dose of Lasix today + BM x 2 Advancing diet today Review of Systems General: Fatigue, Malaise Objective Exam Vital Signs Vital Signs Date Time Temp Pulse Resp B/P (MAP) Pulse Ox O2 Delivery O2 Flow Rate FiO2 01/13/18 06:11 97.0 76 18 142/77 (98) 94 Room Air Capillary Refill : General Appearance: No Apparent Distress, WD/WN, Chronically ill, Obese, Other (much improved) Respiratory: Lungs Clear, Normal Breath Sounds Cardiovascular: No Murmur, Normal Peripheral Pulses, Irregularly Irregular Gastrointestinal: Soft Neurologic/Psychiatric: Alert, Oriented x3, No Motor/Sensory Deficits, Normal Mood/Affect Results/Procedures Lab Laboratory Tests 01/13/18 03:35 Patient resulted labs reviewed. Assessment/Plan Assessment and Plan Assess & Plan/Chief Complaint Assessment: Status post critical illness now with severe debility requiring swing bed status Lower extremity edema acute on chronic issue Plan: Lasix IV 1 now again today Ambulate Pain control MiraLAX Check labs in morning including INR Diagnosis/Problems Diagnosis/Problems (1) Status post cholecystectomy Status: Acute (2) Edema Status: Acute Qualifiers: Edema type: unspecified Qualified Codes: R60.9 - Edema, unspecified (3) Atrial fibrillation Status: Chronic Qualifiers: Atrial fibrillation type: chronic Qualified Codes: I48.2 - Chronic atrial fibrillation (4) Hypertension Status: Chronic Qualifiers: Hypertension type: essential hypertension Qualified Codes: I10 - Essential (primary) hypertension (5) Bilirubinemia Status: Acute (6) Debility Status: Acute (7) Volume overload Status: Acute (8) MY (obstructive sleep apnea) Status: Chronic (9) Coagulopathy Status: Acute Clinical Quality Measures DVT/VTE Risk/Contraindication: Risk Factor Score Per Nursin ELLIS POLLACK DO Jan 13, 2018 12:04
[2018-01-13] MEDS ORDERED: FUROSEMIDE 40 MG/4 ML INJ (LASIX) IVP NR (12:15)
--- NOTE | 2018-01-13 13:03 | Cardiology Progress Note ---
Cardiology SOAP Progress Note Subjective: No cardiac symptoms. Mild lower extremity swelling. Objective: I&O/Vital Signs 01/13/18 06:11 Temp 97.0 Pulse 76 Resp 18 B/P (MAP) 142/77 (98) Pulse Ox 94 O2 Delivery Room Air 01/13/18 00:00 Intake Total 1920 ml Output Total 2500 ml Balance -580 ml Weight (Pounds): 148 Weight (Ounces): 0.0 Weight (Calculated Kilograms): 67.093489 Constitutional: AAO x 3 Respiratory: No accessory muscle use, No respiratory distress, No chest tender , No chest expansion is symmetric; chest is bilaterally symmetric; No lungs clear to percussion; lungs clear to auscultation; No crackles, No rhonchi, No rales, No stridor, No wheezing, No pleural rub, No other Cardiovascular: regular rate-rhythm, edema, S1 and S2 Gastrointestional: No tender, No soft, No round, No distended, No pulsatile mass, No organomegaly, No guarding, No rebound, No tenderness, No hernia, No mass, No audible bowel sounds, No abnormal bowel sounds, No abdominal bruits, No spleenomegaly, No other Extremities: No normal range of motion, No non-tender, No normal inspection, No pedal edema, No calf tenderness, No normal capillary refill, No pelvis stable , No calf tenderness, No inflammation, No pedal edema, No slow capillary refill , No swelling, No other, No abrasion, No clubbing, No cyanosis, No ecchymosis, No laceration, No no lower extremity edema bilateral, No significant edema, No tenderness, No wound Neurologic/Psychiatric: no motor/sensory deficits, alert, normal mood/affect, oriented x 3 Skin: No normal color, No warm/dry, No cyanosis, No cool, No diaphoresis, No damp, No ecchymosis, No jaundice, No mottled, No pallor, No rash, No tattoos/ piercings, No ulcerations, No rash on exposed areas, No ulcerations on exposed areas, No other Results/Procedures: Labs Laboratory Tests 01/13/18 03:35: White Blood Count 11.1H, Red Blood Count 3.76L, Hemoglobin 10.1L, Hematocrit 32L , Mean Corpuscular Volume 86, Mean Corpuscular Hemoglobin 27, Mean Corpuscular Hemoglobin Concent 31L, Red Cell Distribution Width 16.7H, Platelet Count 321, Mean Platelet Volume 10.2, Neutrophils (%) (Auto) 62, Lymphocytes (%) (Auto) 26 , Monocytes (%) (Auto) 9, Eosinophils (%) (Auto) 3, Basophils (%) (Auto) 1, Neutrophils # (Auto) 6.8, Lymphocytes # (Auto) 2.8, Monocytes # (Auto) 1.0, Eosinophils # (Auto) 0.4H, Basophils # (Auto) 0.1, Sodium Level 140, Potassium Level 3.7, Chloride Level 105, Carbon Dioxide Level 26, Anion Gap 9, Blood Urea Nitrogen 11, Creatinine 0.70, Estimat Glomerular Filtration Rate > 60, BUN/ Creatinine Ratio 16, Glucose Level 98, Calcium Level 8.7, Total Bilirubin 1.3H, Aspartate Amino Transf (AST/SGOT) 24, Alanine Aminotransferase (ALT/SGPT) 17, Alkaline Phosphatase 122, Total Protein 6.0L, Albumin 3.5 A/P: Assessment/Dx: Assessment/Dx: Status post cholecystectomy, liver bleed that has been repaired, Coagulopathy, Atrial fibrillation, Permanent pacemaker, Cardiomyopathy, Chest pain, Moderate pulmonary hypertension, Moderate tricuspid regurgitation, Leukocytosis, Metabolic acidosis, Respiratory failure Plan: Status post cholecystectomy, liver bleed that has been repaired, deferred to surgical services. Coagulopathy, resolved. Lower extremity swelling: Agree with Lasix and potassium supplementation. Atrial fibrillation, controlled atrial fibrillation. Coumadin will be started today as per surgery. Permanent pacemaker, no acute issues. Cardiomyopathy, echocardiogram done in this admission shows an EF of 3540 percent. Previous LV function was normal. Patient had coronary angiography in September 2017 which showed mild CAD. Therefore new-onset cardiomyopathy very likely nonischemic. Need to review device interrogation records since if the patient has significant RV pacing, that may be a reason for reduction of LV function. She may be a candidate for upgrade to bi-V ICD or biventricular pacemaker if the reason for reduction in LV function is significant RV pacing. She is a patient of Dr. Hewitt however he is on vacation for a month. I can follow-up after discharge if required. Chest pain, negative serial troponins. EKG is nondiagnostic due to ventricularly paced rhythm. Coronary angiography done in September 2017 showed mild CAD therefore acute coronary syndrome is very unlikely. Moderate pulmonary hypertension, continue to monitor. Moderate tricuspid regurgitation, continue to monitor. No acute issues. Leukocytosis, Dr. Olsen following. Metabolic acidosis, Respiratory failure, improved. Could be secondary to acute systolic heart failure. Okay to give Lasix. Cardiac history of atrial fibrillation, permanent pacemaker, history of atrial flutter ablation, atrial fibrillation ablation, recurrent atrial fibrillation refractory to dofetilide. Patient follows with Dr. Hewitt for cardiology and Dr. Bridges for electrophysiology. Patient had coronary angiography in September 2017 which showed mild CAD with normal LV function. Transesophageal echocardiogram assisted cardioversion in 2016 was successful in converting atrial fibrillation to sinus rhythm. LV function was normal. Another echocardiogram was done in February 2016 which showed normal LV function, left atrial dilatation and moderate pulmonary hypertension. Thank you for your consultation. Please call me if you have any questions. Roderick Cole MD, FACP, FACC, FSCAI, FHRS, CCDS Interventional Cardiology Cardiac Electrophysiology Vascular Medicine and Endovascular Interventions Breanne COLE MD Jan 13, 2018 1:03 pm
[2018-01-13] MEDS: cefTRIAXone INJECTION 1,000 MG in NS (IVPB) 50 ML IV SCH (13:10)
[2018-01-13] MEDS ORDERED: KCL 20 MEQ TAB (K-DUR) PO ONE (13:15)
--- NOTE | 2018-01-13 13:22 | Progress Note ---
Subjective Time Seen by Provider: 12:57 Subjective/Events-last exam Pt seen and examined, had 2 large BM's. Pain is controlled with meds. Review of Systems General: No Chills, No Night Sweats Pulmonary: No Cough Cardiovascular: No: Chest Pain, Palpitations Objective Exam Vital Signs Date Time Temp Pulse Resp B/P (MAP) Pulse Ox O2 Delivery O2 Flow Rate FiO2 01/13/18 06:11 97.0 76 18 142/77 (98) 94 Room Air 01/12/18 20:15 Room Air 01/12/18 17:45 98.4 76 20 151/72 (98) 96 Room Air I & O 01/13/18 07:00 Intake Total 2270 ml Output Total 2800 ml Balance -530 ml Capillary Refill : General Appearance: No Apparent Distress, WD/WN, Obese HEENT: PERRL/EOMI Respiratory: Lungs Clear, Normal Breath Sounds Cardiovascular: No Murmur, Normal Peripheral Pulses, Irregularly Irregular Gastrointestinal: soft (incision c/d/i no erythema), tenderness (at RUQ incision) Extremity: Pedal Edema Neurologic/Psychiatric: Alert, Oriented x3 Skin: Warm/Dry Results Lab Laboratory Tests 01/13/18 03:35: White Blood Count 11.1H, Red Blood Count 3.76L, Hemoglobin 10.1L, Hematocrit 32L , Mean Corpuscular Volume 86, Mean Corpuscular Hemoglobin 27, Mean Corpuscular Hemoglobin Concent 31L, Red Cell Distribution Width 16.7H, Platelet Count 321, Mean Platelet Volume 10.2, Neutrophils (%) (Auto) 62, Lymphocytes (%) (Auto) 26 , Monocytes (%) (Auto) 9, Eosinophils (%) (Auto) 3, Basophils (%) (Auto) 1, Neutrophils # (Auto) 6.8, Lymphocytes # (Auto) 2.8, Monocytes # (Auto) 1.0, Eosinophils # (Auto) 0.4H, Basophils # (Auto) 0.1, Sodium Level 140, Potassium Level 3.7, Chloride Level 105, Carbon Dioxide Level 26, Anion Gap 9, Blood Urea Nitrogen 11, Creatinine 0.70, Estimat Glomerular Filtration Rate > 60, BUN/ Creatinine Ratio 16, Glucose Level 98, Calcium Level 8.7, Total Bilirubin 1.3H, Aspartate Amino Transf (AST/SGOT) 24, Alanine Aminotransferase (ALT/SGPT) 17, Alkaline Phosphatase 122, Total Protein 6.0L, Albumin 3.5 Assessment/Plan Assessment/Plan Assessment/Plan s/p lap namita ioc, with open control of bleeding liver sinus cholecystitis, cholelithiasis afib n/v Increased to a regular diet, pt encouraged to ambulate and use IS. Will be able to go home tomorrow once we know oral pain meds control her pain. Clinical Quality Measures DVT/VTE Risk/Contraindication: Risk Factor Score Per Nursin JEFERSON STARR DO Jan 13, 2018 13:22
[2018-01-13] MEDS: KCL 10 MEQ TAB (MICRO K) PO SCH ×2 (13:41→14:40)
[2018-01-13] MEDS ORDERED: KCL 10 MEQ TAB (MICRO K) PO ONE (13:45)
[2018-01-13 18:00] VITALS: BP 148/69
[2018-01-13] MEDS: warFARin 5 MG (COUMADIN) TAB PO SCH (18:11)
[2018-01-13] MEDS ORDERED: ONDANSETRON 4 MG (ZOFRAN) ORAL DISSOLVE TAB PO PRN (19:45)
[2018-01-13] MEDS: ALPRAZolam 0.25 MG (XANAX) TAB PO PRN (20:22)
[2018-01-14 05:56] LABS: BASOPHILS % (AUTO) 0 % (0-10); EOSINOPHILS # (AUTO) 0.3 10^3/uL (0.0-0.3); EOSINOPHILS % (AUTO) 3 % (0-10); HEMATOCRIT 31 % (35-52); HEMOGLOBIN 9.9 G/DL (11.5-16.0); LYMPHOCYTES % (AUTO) 27 % (12-44); MEAN CORPUSCULAR HEMOGLOBIN 27 PG (25-34); MEAN CORPUSCULAR HGB CONC 32 G/DL (32-36); MEAN CORPUSCULAR VOLUME 87 FL (80-99); MEAN PLATELET VOLUME 10.1 FL (7.4-10.4); MONOCYTES % (AUTO) 9 % (0-12); NEUTROPHILS # (AUTO) 6.8 X 10^3 (1.8-7.8); NEUTROPHILS % (AUTO) 61 % (42-75); PLATELET COUNT 325 10^3/uL (130-400); RED BLOOD COUNT 3.62 10^6/uL (4.35-5.85); WHITE BLOOD COUNT 11.1 10^3/uL (4.3-11.0)
[2018-01-14 06:00] VITALS: BP 149/66
[2018-01-14 06:11] LABS: INR 1.4 (0.8-1.4); PROTHROMBIN TIME PATIENT 17.4 SEC (12.2-14.7)
[2018-01-14 06:21] LABS: ALANINE AMINOTRANSFERASE 16 U/L (0-55); ALBUMIN 3.5 GM/DL (3.2-4.5); ALKALINE PHOSPHATASE 133 U/L (40-136); BUN/CREATININE RATIO 16; CALCIUM 8.7 MG/DL (8.5-10.1); CARBON DIOXIDE 24 MMOL/L (21-32); CHLORIDE 105 MMOL/L (98-107); CREATININE SERUM 0.69 MG/DL (0.60-1.30); GFR ESTIMATED > 60; GLUCOSE 122 MG/DL (70-105); POTASSIUM 3.6 MMOL/L (3.6-5.0); SODIUM 139 MMOL/L (135-145); TOTAL PROTEIN 5.9 GM/DL (6.4-8.2)
[2018-01-14] MEDS: PANTOPRAZOLE 40 MG (PROTONIX) TAB PO SCH (06:23)
[2018-01-14] MEDS ORDERED: KCL 10 MEQ TAB (MICRO K) PO SCH ×2 (07:00)
[2018-01-14 07:38] VITALS: BP 167/73
[2018-01-14] MEDS: HYDROcodone/APAP 5 MG/325 MG (LORTAB) TAB PO PRN (08:15)
[2018-01-14] MEDS ORDERED: AMOX-358 PO (09:07)
[2018-01-14] MEDS ORDERED: ACHD5005 PO (09:07)
[2018-01-14] MEDS ORDERED: POTA10TA6 PO (09:07)
[2018-01-14] MEDS ORDERED: WARF2.5T PO (09:07)
--- NOTE | 2018-01-14 09:19 | Discharge Inst-Simple/Standard ---
Discharge Inst-Standard Discharge Medications New, Converted or Re-Newed RX: RX on Chart Patient Instructions/Follow Up Plan of Care/Instructions/FU: Please continue to take your medications as written. Please follow up as scheduled. Activity as Tolerated: Yes Discharge Diet: Cardiac Diet Return to The Hospital For: Abd pain, distention, shortness of breath, dark or bloody stools, if you feel you are getting worse. SHERLY ANTONIO MD Jan 14, 2018 09:19
[2018-01-14] MEDS ORDERED: WALK1EAC23 MC (10:09)
--- NOTE | 2018-01-14 10:11 | Physical Therapy Daily Note ---
PT Daily Note-Current Subjective Patient reports she is going home today. Pain Numeric Pain Scale: 5-Moderate Pain Location: Lower Location Body Site: Abdomen Pain Description: Sharp Mental Status Patient Orientation: Normal For Age Transfers Functional [place] Measure 0=Not Assessed/NA 4=Minimal Assistance 1=Total Assistance 5=Supervision or Setup 2=Maximal Assistance 6=Modified [place] 3=Moderate Assistance 7=Complete IndependenceIRFPAI Quality Coding Scale 6 Independent with activity with or without an assistive device 5 Patient requires set up or clean up by helper. Patient completes activity by themselves 4 Supervision or touching assist (CGA). [place] provide cues , steadying assist 3 The helper provides less than half the effort to complete the activity 2 The helper provides more than half the effort to complete the activity 1 Dependent. The helper does all the effort to complete an activity 7 Patient refused to complete or attempt activity 9 The patient did not perform the activity before the current illness or injury 88 Not attempted due to Medical conditions or safety concerns Transfers (B, C, W/C) (FIM): 7 Scootin Roll Left to Right (QC): 6 Supine to/from Sit: 7 Sit to/from Stand: 7 Sit to Lying (QC): 6 Sit to Stand (QC): 6 Chair/Ztm-jb-Qbbsu Xfer(QC): 6 Bed to/from Chair: 7 Gait Training Does the Patient Walk?: Yes Gait (FIM): 7 Distance (FIM): 3=150 ft Distance: 300' Walk 50 ft with 2 Turns(QC): 6 Walk 150 ft (QC): 6 Gait Level of Assist: 7 Gait Assistive Device: None slow, steady Assessment Patient is currently at independent LOF with all gross motor skills. Upon initial evaluation, patient was SBA to CGA with mobility with very slow pace and has improved greatly. PT Senior Care Goals Asphalt Plant Laborer Goals PT Asphalt Plant Laborer Goals Time Frame: Jan 18, 2018 Transfers (B,C,W/C) (FIM): 7 (met 01/14/18) Sit to Lying (QC): 6 (met 01/14/18) Lying-Sitting on Side/Bed(QC): 6 (met 01/14/18) Sit to Stand (QC): 6 (met 01/14/18) Chair/Ezr-oj-Boiby Xfer(QC): 6 (met 01/14/18) Does the Patient Walk: Yes Gait (FIM): 6 (met 01/14/18) Gait distance (FIM): 3=150 ft Gait Assistive Device: FWW Does the Pt use WC or Scooter?: No PT Plan Treatment/Plan Treatment Plan: Discontinue PT, goals met Treatment Plan: Bed Mobility, Education, Functional Activity Denny, Functional Strength, Gait, Safety, Therapeutic Exercise, Transfers Treatment Duration: Jan 18, 2018 Frequency: 6 times per week Estimated Hrs Per Day: .25 hour per day Patient and/or Family Agrees t: Yes Time/GCodes Time In: 945 Time Out: 1000 Total Billed Treatment Time: 15 Total Billed Treatment 1 visit FA 15 min ASHANTI MAR PT Jan 14, 2018 10:11
--- NOTE | 2018-01-14 10:12 | Therapy Team Discharge Summary ---
Therapy Discharge Summary Discharge Recommendations Date of Discharge Physical Therapy Patient is currently at independent LOF with all gross motor skills. Upon initial evaluation, patient was SBA to CGA with mobility with very slow pace and has improved greatly. Occupational Therapy Decreased Activ Tolerance, Decreased UE Strength, Dependent Transfers, Edema, Impaired Self-Care Skills PT Mash Grinder Goals Longterm Goals PT Longterm Goals Time Frame: Jan 18, 2018 Transfers (B,C,W/C) (FIM): 7 (met 01/14/18) Sit to Lying (QC): 6 (met 01/14/18) Lying-Sitting on Side/Bed(QC): 6 (met 01/14/18) Sit to Stand (QC): 6 (met 01/14/18) Chair/Kpg-jf-Azoen Xfer(QC): 6 (met 01/14/18) Does the Patient Walk: Yes Gait (FIM): 6 (met 01/14/18) Gait distance (FIM): 3=150 ft Gait Assistive Device: None, FWW Does the Pt use WC or Scooter?: No OT Longterm Goals Mash Grinder Goals Time Frame: Jan 18, 2018 Eating (FIM): 6 Eating (QC): 6 Groomin Oral Hygiene (QC): 6 Upper Body Dressing(FIM): 5 Lower Body Dressing(FIM): 5 Toileting(FIM): 6 Toileting Hygiene (QC): 6 Toilet/Commode Transfer(FIM): 6 Toilet/Commode Transfer (QC): 6 Pt will verbalize three ways to conserve her energy at home Additional Goals: 1-Demonstrate ADL Tasks, 2-Verbalize Understanding, 3- ImproveStrength/Denny 1=Demonstrate adherence to instructed precautions during ADL tasks. 2=Patient will verbalize/demonstrate understanding of assistive devices/ modifications for ADL. 3=Patient will improve strength/tolerance for activity to enable patient to perform ADL's. ASHANTI MAR PT Jan 14, 2018 10:12
--- NOTE | 2018-01-14 10:41 | Cardiology Progress Note ---
Cardiology SOAP Progress Note Subjective: No cardiac complaints. Objective: I&O/Vital Signs 01/14/18 01/14/18 01/14/18 06:00 07:38 07:39 Temp 96.9 98.8 Pulse 73 79 Resp 18 20 B/P (MAP) 149/66 (93) 167/73 (104) Pulse Ox 91 92 92 O2 Delivery Room Air Room Air Room Air 01/14/18 00:00 Intake Total 1140 ml Output Total 4000 ml Balance -2860 ml Weight (Pounds): 148 Weight (Ounces): 0.0 Weight (Calculated Kilograms): 67.707190 Constitutional: AAO x 3 Respiratory: No accessory muscle use, No respiratory distress, No chest tender , No chest expansion is symmetric; chest is bilaterally symmetric; No lungs clear to percussion; lungs clear to auscultation; No crackles, No rhonchi, No rales, No stridor, No wheezing, No pleural rub, No other Cardiovascular: regular rate-rhythm, edema, S1 and S2 Gastrointestional: No tender, No soft, No round, No distended, No pulsatile mass, No organomegaly, No guarding, No rebound, No tenderness, No hernia, No mass, No audible bowel sounds, No abnormal bowel sounds, No abdominal bruits, No spleenomegaly, No other Extremities: No normal range of motion, No non-tender, No normal inspection, No pedal edema, No calf tenderness, No normal capillary refill, No pelvis stable , No calf tenderness, No inflammation, No pedal edema, No slow capillary refill , No swelling, No other, No abrasion, No clubbing, No cyanosis, No ecchymosis, No laceration, No no lower extremity edema bilateral, No significant edema, No tenderness, No wound Neurologic/Psychiatric: no motor/sensory deficits, alert, normal mood/affect, oriented x 3 Skin: No normal color, No warm/dry, No cyanosis, No cool, No diaphoresis, No damp, No ecchymosis, No jaundice, No mottled, No pallor, No rash, No tattoos/ piercings, No ulcerations, No rash on exposed areas, No ulcerations on exposed areas, No other Results/Procedures: Labs Laboratory Tests 01/14/18 05:22: White Blood Count 11.1H, Red Blood Count 3.62L, Hemoglobin 9.9L, Hematocrit 31L , Mean Corpuscular Volume 87, Mean Corpuscular Hemoglobin 27, Mean Corpuscular Hemoglobin Concent 32, Red Cell Distribution Width 17.0H, Platelet Count 325, Mean Platelet Volume 10.1, Neutrophils (%) (Auto) 61, Lymphocytes (%) (Auto) 27 , Monocytes (%) (Auto) 9, Eosinophils (%) (Auto) 3, Basophils (%) (Auto) 0, Neutrophils # (Auto) 6.8, Lymphocytes # (Auto) 3.0, Monocytes # (Auto) 1.0, Eosinophils # (Auto) 0.3, Basophils # (Auto) 0.0, Prothrombin Time 17.4H, INR Comment 1.4, Sodium Level 139, Potassium Level 3.6, Chloride Level 105, Carbon Dioxide Level 24, Anion Gap 10, Blood Urea Nitrogen 11, Creatinine 0.69, Estimat Glomerular Filtration Rate > 60, BUN/Creatinine Ratio 16, Glucose Level 122H, Calcium Level 8.7, Total Bilirubin 1.0, Aspartate Amino Transf (AST/SGOT) 18, Alanine Aminotransferase (ALT/SGPT) 16, Alkaline Phosphatase 133, Total Protein 5.9L, Albumin 3.5 A/P: Assessment/Dx: Assessment/Dx: Status post cholecystectomy, liver bleed that has been repaired, Coagulopathy, Atrial fibrillation, Permanent pacemaker, Cardiomyopathy, Chest pain, Moderate pulmonary hypertension, Moderate tricuspid regurgitation, Leukocytosis, Metabolic acidosis, Respiratory failure Plan: Status post cholecystectomy, liver bleed that has been repaired, deferred to surgical services. Coagulopathy, resolved. Lower extremity swelling: Agree with Lasix and potassium supplementation. Atrial fibrillation, controlled atrial fibrillation. Coumadin will be started today as per surgery. We will not restart amiodarone or mexiletine and decide about antiarrhythmic therapy as an outpatient. Continue metoprolol. Permanent pacemaker, no acute issues. Cardiomyopathy, echocardiogram done in this admission shows an EF of 3540 percent. Previous LV function was normal. Patient had coronary angiography in September 2017 which showed mild CAD. Therefore new-onset cardiomyopathy very likely nonischemic. Need to review device interrogation records since if the patient has significant RV pacing, that may be a reason for reduction of LV function. She may be a candidate for upgrade to bi-V ICD or biventricular pacemaker if the reason for reduction in LV function is significant RV pacing. She is a patient of Dr. Hewitt however he is on vacation for a month. I can follow-up after discharge if required. Chest pain, negative serial troponins. EKG is nondiagnostic due to ventricularly paced rhythm. Coronary angiography done in September 2017 showed mild CAD therefore acute coronary syndrome is very unlikely. Moderate pulmonary hypertension, continue to monitor. Moderate tricuspid regurgitation, continue to monitor. No acute issues. Leukocytosis, Dr. Olsen following. Metabolic acidosis, resolved. Respiratory failure, improved. Could be secondary to acute systolic heart failure. Okay to give Lasix. Cardiac history of atrial fibrillation, permanent pacemaker, history of atrial flutter ablation, atrial fibrillation ablation, recurrent atrial fibrillation refractory to dofetilide. Patient follows with Dr. Hewitt for cardiology and Dr. Bridges for electrophysiology. Patient had coronary angiography in September 2017 which showed mild CAD with normal LV function. Transesophageal echocardiogram assisted cardioversion in 2016 was successful in converting atrial fibrillation to sinus rhythm. LV function was normal. Another echocardiogram was done in February 2016 which showed normal LV function, left atrial dilatation and moderate pulmonary hypertension. Thank you for your consultation. Please call me if you have any questions. Roderick Cole MD, FACP, FACC, FSCAI, FHRS, CCDS Interventional Cardiology Cardiac Electrophysiology Vascular Medicine and Endovascular Interventions Breanne COLE MD Jan 14, 2018 10:41 am
--- NOTE | 2018-01-14 11:25 | Discharge Summary-Hospitalist ---
Diagnosis/Chief Complaint Date of Admission Jan 11, 2018 at 11:08 am Date of Discharge Discharge Date: Jan 14, 2018 Discharge Diagnosis (1) Status post cholecystectomy Status: Acute (2) Edema Status: Acute (3) Atrial fibrillation Status: Chronic (4) Hypertension Status: Chronic (5) Bilirubinemia Status: Acute (6) Debility Status: Acute (7) Volume overload Status: Acute (8) MY (obstructive sleep apnea) Status: Chronic (9) Coagulopathy Status: Acute Discharge Summary Procedures/Consulations Dr Luisa Cole Discharge Physical Exam Allergies: Coded Allergies: rosuvastatin (Unverified Allergy, Mild, 01/24/17) Sulfa (Sulfonamide Antibiotics) (Verified Allergy, Unknown, 01/24/17) Vitals & I&Os Vital Signs Date Time Temp Pulse Resp B/P (MAP) Pulse Ox O2 Delivery O2 Flow Rate FiO2 01/14/18 07:39 92 Room Air 01/14/18 07:38 98.8 79 20 167/73 (104) General Appearance: Alert, Oriented X3 Respiratory: Clear to Auscultation Cardiovascular: Regular Rate Hospital Course Pt is a 67yoCF who was admitted for acute cholecystitis and underwent cholecystectomy and suffered from a bleeding venous sinus of the liver likely due ti chronic anticoagulation. She was critically ill following the surgery and in the ICU for recovery. She slowly recovered and was transitioned to swing bed for further therapy and IV abx. She ultimately did well and was discharged home to follow up with her PCP Dr Ball. Labs (last 24 hrs) Patient resulted labs reviewed. Pending Labs Discussion & Recommendations Discharge Planning: >30 minutes discharge planning Discharge Home Medications: Active Scripts Active Ultra-Light Rollator (Walker) 1 Each Each Each MC PRN please use with ambulation Augmentin 875-125 Tablet (Amoxicillin/Potassium Clav) 1 Each Tablet 1 Each PO BID Klor-Con 10 (Potassium Chloride) 10 Meq Tablet.er 20 Meq PO DAILY@0700 Hydrocodone/Acetaminophen 5/325mg Tablet (Acetaminophen/Hydrocodone Bitart) 1 Tab Tab 1-2 Tab PO Q8H PRN Coumadin (Warfarin Sodium) 2.5 Mg Tablet 2.5 Mg PO MOWEFR@1800 Reported Furosemide 20 Mg Tablet 40 Mg PO ON ODD DAYS TAKE 2 (20 MG) TABLETS ON ODD DAYS Escitalopram Oxalate 20 Mg Tablet 20 Mg PO DAILY Metoprolol Succinate 25 Mg Tab.er.24h 25 Mg PO DAILY Pantoprazole Sodium 40 Mg Tablet.dr 40 Mg PO DAILY Spironolactone 25 Mg Tablet 25 Mg PO DAILY Alprazolam 0.5 Mg Tablet 0.25 Mg PO TID PRN TAKES 1/2 OF A (0.5 MG) TABLET Warfarin Sodium 5 Mg Tablet 5 Mg PO SUTUTHSA Atorvastatin Calcium 40 Mg Tablet 40 Mg PO HS Furosemide 20 Mg Tablet 20 Mg PO ON EVEN DAYS Vitamin D3 (Cholecalciferol) 5,000 Unit Capsule 5,000 Unit PO DAILY Tylenol Pm (Acetaminophen/Diphenhydramine) 1 Ea Tab 1 Tab PO HS Instructions to patient/family Please see electronic discharge instructions given to patient. Clinical Quality Measures DVT/VTE Risk/Contraindication: Risk Factor Score Per Nursin Problem Qualifiers (1) Edema: Edema type: unspecified Qualified Codes: R60.9 - Edema, unspecified (2) Atrial fibrillation: Atrial fibrillation type: chronic Qualified Codes: I48.2 - Chronic atrial fibrillation (3) Hypertension: Hypertension type: essential hypertension Qualified Codes: I10 - Essential ( primary) hypertension SHERLY ANTONIO MD Jan 14, 2018 11:25
--- NOTE | 2018-01-14 13:20 | Therapy Team Discharge Summary ---
Therapy Discharge Summary Discharge Recommendations Date of Discharge Jan 14, 2018 at 11:50 Therapy D/C Recommendations: Home w/ Family Support Occupational Therapy Pt was seen for skilled OT to increase her independence in basic self care. On admission she was independent with eating, needed mod assist with toileting ( help to wipe) and was SBA getting on and off toilet. She discharged before she could be reassessed for ADLs. Nursing indicated that she was SBA for toileting on day of DC and PT indicated that she was mod I with mobility in room. See tx plan for goals met. DC OT. Decreased Activ Tolerance, Decreased UE Strength, Dependent Transfers, Edema, Impaired Self-Care Skills PT Mcc Goals Ibm Websphere Commerce Developer Goals PT Ibm Websphere Commerce Developer Goals Time Frame: Jan 18, 2018 Transfers (B,C,W/C) (FIM): 7 (met 01/14/18) Sit to Lying (QC): 6 (met 01/14/18) Lying-Sitting on Side/Bed(QC): 6 (met 01/14/18) Sit to Stand (QC): 6 (met 01/14/18) Chair/Ars-mh-Kryyo Xfer(QC): 6 (met 01/14/18) Does the Patient Walk: Yes Gait (FIM): 6 (met 01/14/18) Gait distance (FIM): 3=150 ft Gait Assistive Device: None, FWW Does the Pt use WC or Scooter?: No OT Ibm Websphere Commerce Developer Goals Ibm Websphere Commerce Developer Goals Time Frame: Jan 18, 2018 Eating (FIM): 6 (met 01-14-18) Eating (QC): 6 (met 01-14-18) Groomin Oral Hygiene (QC): 6 Upper Body Dressing(FIM): 5 Lower Body Dressing(FIM): 5 Toileting(FIM): 6 (not met 01-14-18) Toileting Hygiene (QC): 6 (not met 01-14-18) Toilet/Commode Transfer(FIM): 6 (not met 01-14-18) Toilet/Commode Transfer (QC): 6 (not met 01-14-18) Pt will verbalize three ways to conserve her energy at home Additional Goals: 1-Demonstrate ADL Tasks, 2-Verbalize Understanding, 3- ImproveStrength/Denny 1=Demonstrate adherence to instructed precautions during ADL tasks. 2=Patient will verbalize/demonstrate understanding of assistive devices/ modifications for ADL. 3=Patient will improve strength/tolerance for activity to enable patient to perform ADL's. AYUSH TAVAREZ OT Jan 14, 2018 13:20
--- NOTE | 2018-01-14 13:20 | Therapy Team Discharge Summary ---
Therapy Discharge Summary Discharge Recommendations Date of Discharge Jan 14, 2018 at 11:50 Therapy D/C Recommendations: Home w/ Family Support Occupational Therapy Pt. was seen for initial evaluation only. Pt. had presented to ED with nausea and vomitting. Upon OT evaluation, pt. required mod assist for toileting, and SBA with ambulation, grooming. At discharge, PT reported pt. to be at previous level with transfers and ambulation. Pt. is discharging today to previous setting. No further OT required at this time. Decreased Activ Tolerance, Decreased UE Strength, Dependent Transfers, Edema, Impaired Self-Care Skills PT Long-Term Goals Lamp Assembler Goals PT Lamp Assembler Goals Time Frame: Jan 18, 2018 Transfers (B,C,W/C) (FIM): 7 (met 01/14/18) Sit to Lying (QC): 6 (met 01/14/18) Lying-Sitting on Side/Bed(QC): 6 (met 01/14/18) Sit to Stand (QC): 6 (met 01/14/18) Chair/Rxg-su-Izobg Xfer(QC): 6 (met 01/14/18) Does the Patient Walk: Yes Gait (FIM): 6 (met 01/14/18) Gait distance (FIM): 3=150 ft Gait Assistive Device: None, FWW Does the Pt use WC or Scooter?: No OT Lamp Assembler Goals Long-Term Goals Time Frame: Jan 18, 2018 Eating (FIM): 6 (met) Eating (QC): 6 (met) Groomin (met) Oral Hygiene (QC): 6 (met) Upper Body Dressing(FIM): 5 (met) Lower Body Dressing(FIM): 5 (not met) Toileting(FIM): 6 (not met) Toileting Hygiene (QC): 6 (not met) Toilet/Commode Transfer(FIM): 6 (met) Toilet/Commode Transfer (QC): 6 (met) Pt will verbalize three ways to conserve her energy at home Additional Goals: 1-Demonstrate ADL Tasks, 2-Verbalize Understanding, 3- ImproveStrength/Denny 1=Demonstrate adherence to instructed precautions during ADL tasks. 2=Patient will verbalize/demonstrate understanding of assistive devices/ modifications for ADL. 3=Patient will improve strength/tolerance for activity to enable patient to perform ADL's. OSCAR ELIZABETH OT Jan 14, 2018 13:20
[2018-01-14] MEDS ORDERED: warFARin 2.5 MG (COUMADIN) TAB PO SCH (18:00)
== END 2018-01-14 11:50 | disposition home or self-care (01) | DRG 949 ==
LOC: 4TH 11:08
PROVIDERS: ADMIT Internal Medicine; ATTEND Internal Medicine
DX: Z48.815 Encounter for surgical aftercare following surgery on the digestive system (principal); I11.0 Hypertensive heart disease with heart failure; I50.21 Acute systolic (congestive) heart failure; J96.90 Respiratory failure, unspecified, unspecified whether with hypoxia or hypercapnia; I42.9 Cardiomyopathy, unspecified; E87.2 Acidosis; R17 Unspecified jaundice; I48.2 Chronic atrial fibrillation; I25.10 Atherosclerotic heart disease of native coronary artery without angina pectoris; I27.20 Pulmonary hypertension, unspecified; I07.1 Rheumatic tricuspid insufficiency; D72.829 Elevated white blood cell count, unspecified; R07.9 Chest pain, unspecified; R53.81 Other malaise; G47.33 Obstructive sleep apnea (adult) (pediatric); Z95.0 Presence of cardiac pacemaker; Z79.01 Long term (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
CPT/HCPCS: 36415; 80053; 85025; 85610

== ENCOUNTER → 2018-02-04 | Outpatient (CLI) | payer MEDICARE, OTHER ==
[~2018-02-04] MED LIST changes: +ACHD5005 PO; +AMOX-358 PO; +POTA10TA6 PO; +WALK1EAC23 MC; +WARF2.5T PO
== END ==
LOC: RAD 07:49
PROVIDERS: ATTEND Nurse Practitioner Family
DX: K76.0 Fatty (change of) liver, not elsewhere classified (principal); Z53.8 Procedure and treatment not carried out for other reasons

== ENCOUNTER → 2018-02-22 | Outpatient (CLI) | payer MEDICARE, OTHER ==
--- NOTE | 2018-02-22 08:49 | Diagnostic Imaging Report ---
PROCEDURE: CT abdomen and pelvis without contrast. TECHNIQUE: Multiple contiguous axial images were obtained through the abdomen and pelvis without the use of intravenous contrast. INDICATION: Gross hematuria. Comparison is made with prior CT from 01/07/2018. The lung bases are clear. No discrete liver mass is seen. Surgical clips are identified in the gallbladder fossa likely from recent cholecystectomy. Small amount of fluid and gas at the gallbladder fossa is seen, presumably postoperative. No biliary duct dilatation is seen. The pancreas and spleen are unremarkable. No adrenal mass is detected. No renal calculi or hydronephrosis is identified. Aorta is nonaneurysmal. The small and large bowel loops are normal caliber. There is diverticulosis of the sigmoid colon but no evidence of acute diverticulitis. The bladder is unremarkable. There is a small amount of free fluid in the pelvis. The bony structures are unremarkable. IMPRESSION: 1. Uncomplicated diverticulosis. 2. Status post cholecystectomy with minimal postoperative fluid at the gallbladder fossa. 3. No evidence of urinary tract calculi or obstruction. Dictated by: Dictated on workstation # [id number]
== END ==
LOC: RAD 07:31
PROVIDERS: ATTEND Urology
DX: K57.30 Diverticulosis of large intestine without perforation or abscess without bleeding (principal); R31.0 Gross hematuria; Z87.440 Personal history of urinary (tract) infections; Z90.49 Acquired absence of other specified parts of digestive tract
CPT/HCPCS: 74176

== ENCOUNTER 2018-03-13 06:34 | Day surgery (SDC) | payer MEDICARE, OTHER ==
[~2018-03-13] VITALS: Ht 149.9 cm; Wt 64.4 kg
[~2018-03-13 06:34] MED LIST changes: +CRAN500T2 PO; +ESZO3TAB39 PO
[2018-03-13] MEDS ORDERED: MIDAZOLAM 2 MG/2 ML (VERSED) VIAL ONE (06:59)
[2018-03-13] MEDS ORDERED: ONDANSETRON 4 MG/2 ML (SDV) Z0FRAN ONE (06:59)
[2018-03-13] MEDS ORDERED: fentaNYL INJECTION 100 MCG/2 ML AMP ONE (06:59)
[2018-03-13] MEDS ORDERED: proPOfol 200 MG/20 ML (DIPRIVAN) VIAL IV ONE (06:59)
[2018-03-13] MEDS ORDERED: SEVOFLURANE (ULTANE) 15 ML INHAL SOLN ONE (06:59)
[2018-03-13] MEDS ORDERED: LIDOCAINE PF 2% 5 ML (XYLOCAINE) VIAL ONE (06:59)
[2018-03-13 07:00] VITALS: BP 141/88
[2018-03-13] MEDS: LACTATED RINGERS 1,000 ML IV PRN ×2 (07:05→08:29)
[2018-03-13 07:18] LABS: INR 1.3 (0.8-1.4); PROTHROMBIN TIME PATIENT 15.8 SEC (12.2-14.7)
[2018-03-13] MEDS ORDERED: NS (IVPB) 50 ML ONE (07:21)
[2018-03-13] MEDS ORDERED: cefTRIAXone 1 GM/10 ML for IV (ROCEPHIN) IV ONE (07:21)
--- NOTE | 2018-03-13 07:24 | Progress Note-Pre Operative ---
Pre-Operative Progress Note H&P Reviewed The H&P was reviewed, patient examined and no changes noted. Date Seen by Provider: Mar 13, 2018 Time Seen by Provider: 07:23 Date H&P Reviewed: Mar 13, 2018 Time H&P Reviewed: 07:24 Pre-Operative Diagnosis: MULTIPLE BLADDER TUMORS VÍCTOR ZARATE MD Mar 13, 2018 7:24 am
--- NOTE | 2018-03-13 07:26 | Progress Note-Post Operative ---
Post-Operative Progess Note Surgeon (s)/Panel Builder (s) Surgeon VÍCTOR ZARATE MD Panel Builder: N/A Pre-Operative Diagnosis MULTIPLE BLADDER TUMORS Post-Operative Diagnosis SAME Procedure & Operative Findings Date of Procedure 03/13/18 Procedure Performed/Findings TURBT'S Anesthesia Type GENERAL Estimated Blood Loss Estimated blood loss (mL): NEGLIGIBLE Specimens/Packing Specimens Removed BLADDER TUMORS AND BASES Packing: N/A VÍCTOR ZARATE MD Mar 13, 2018 7:26 am
[2018-03-13] MEDS ORDERED: cefTRIAXone FOR IV USE 1,000 MG in NS (IVPB) 50 ML IV ONE (07:30)
[2018-03-13] MEDS ORDERED: FAMOTIDINE 20MG/2ML IV (PEPCID) IV ONE (07:30)
[2018-03-13] MEDS ORDERED: SCOPOLAMINE 1.5 MG (TRANSDERM-SCOP) PATCH TOP ONE (07:30)
[2018-03-13] MEDS ORDERED: ONDANSETRON 4 MG/2 ML (SDV) Z0FRAN IV ONE (07:30)
[2018-03-13] MEDS ORDERED: PHENYLEPHRINE 100 MCG/ML 10 ML (ANESTHESIA) SYR ONE (08:06)
[2018-03-13] MEDS ORDERED: ROCURONIUM 10 MG/ML 5 ML SYRINGE IV ONE (08:06)
--- NOTE | 2018-03-13 08:11 | Discharge Inst-Urology ---
Discharge Inst-Urology Discharge Medications New, Converted, or Re-newed RX: RX on Chart Patient Instructions/Follow Up Plan Please make appointment to been seen in office in 4 weeks. Increase oral fluids for 48 hours and then as needed. Diet and Activity as tolerated. In 48 hours, if no bleeding, may resume Warfarin If questions or concerns contact your physician Or seek help at emergency department. VÍCTOR ZARATE MD Mar 13, 2018 8:11 am
[2018-03-13] MEDS ORDERED: RT-ALBUTEROL HFA (VENTOLIN) PER PUFF IH ONE (08:14)
[2018-03-13] MEDS ORDERED: ONDANSETRON 4 MG/2 ML (SDV) Z0FRAN IVP PRN (08:30)
[2018-03-13] MEDS ORDERED: morphine INJ 10 MG/ML 1ML (SYR OR VIAL) IVP ONE (08:30)
[2018-03-13 09:20] VITALS: BP 126/72
[2018-03-13] MEDS ORDERED: NITR-65 PO (09:30)
[2018-03-13] MEDS ORDERED: PHEN-639 PO (09:30)
[2018-03-13 09:50] VITALS: BP 134/51
[2018-03-13 10:20] VITALS: BP 133/65
--- NOTE | 2018-03-13 13:27 | OPERATIVE REPORT ---
DATE OF SERVICE: 03/13/2018 PREOPERATIVE DIAGNOSIS: Multiple bladder tumors. POSTOPERATIVE DIAGNOSIS: Multiple bladder tumors. OPERATION PERFORMED: Transurethral resection of bladder tumors. SURGEON: Song Zarate MD ANESTHESIA: General. COMPLICATIONS: None. DESCRIPTION OF PROCEDURE: Under satisfactory general anesthesia, the patient in lithotomy position, genitalia were prepped and draped in usual sterile fashion. A urethral dilatation was carried to accommodate a 27-Turkish Perdomo resectoscope. Again, visualized 3 papillary lesions at the bladder neck, mostly anteriorly. They were resected with part of the base. Bleeders were cauterized. Hemostasis was complete. There was no further tumor in the bladder or at the bladder neck. Bladder was emptied and resectoscope was removed. The patient tolerated the procedure well and anesthesia well, was sent to recovery room in stable condition. Job ID: [id number] DocumentID: [id number] Dictated Date: 03/13/2018 08:12:41 Audit Analyst Date: 03/13/2018 13:26:18 Dictated By: SONG ZARATE MD
--- NOTE | 2018-03-15 13:55 | Physician Query-General Query ---
Physician Query-General Query to Physician: Please give the size of the bladder tumors thank you PHYSICIAN RESPONSE: Based on the clinical findings in the record, please respond to the query above on this document as an addendum. Possible, probable, or questionable diagnosis can be coded for INPATIENTS ONLY. Physician Response: Physician Response SMALL If you have questions please contact: Geospatial Intelligence Analyst: Gina Schuler Ext: [phone] Thank you for your time and cooperation. Clinical Rn Invasive/Geospatial Intelligence Analyst This is a permanent part of the medical record YOANDY SCHULER Mar 15, 2018 13:55 VÍCTOR ZARATE MD Mar 19, 2018 11:36
== END 2018-03-13 10:25 | disposition home or self-care (01) ==
LOC: SDC 06:34
PROVIDERS: ATTEND Urology
DX: D41.4 Neoplasm of uncertain behavior of bladder (principal); N30.20 Other chronic cystitis without hematuria; I10 Essential (primary) hypertension; I48.91 Unspecified atrial fibrillation; G47.33 Obstructive sleep apnea (adult) (pediatric); K21.9 Gastro-esophageal reflux disease without esophagitis; Z79.01 Long term (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; Z95.0 Presence of cardiac pacemaker
CPT/HCPCS: 36415; 85610; 87081; 88305

== ENCOUNTER 2018-03-15 11:50 | Emergency (ER) | payer MEDICARE, OTHER ==
[~2018-03-15] VITALS: Ht 149.9 cm; Wt 64.9 kg
[~2018-03-15 11:50] MED LIST changes: +NITR-65 PO; +PHEN-639 PO
--- OUTSIDE RECORDS SUMMARY | 2018-03-15 11:55 | XMS REPORT | Encounter Summary ---
Author Author [facility] Organization [facility] Address Unknown Phone Unavailable Care Team Providers Care Cardiac Tech Name Role Phone Nelia Jules MD Unavailable Aubrey Ball MD PCP Jori Gallegos MD [address] Alejandro RN Unavailable Unavailable Clarissa Minor PROJECTS MANAGER Unavailable Reason for Visit * Reason Comments Remote Monitoring Released from [employer] Transferred Encounter Details Date Type Department Care Team Description 03/04/2018 Telephone [facility] Anh Lopez Remote Monitoring Remote Device Check Transferred (Released [phone] from [employer]) Social History Tobacco Use Types Packs/Day Years [...]
--- OUTSIDE RECORDS SUMMARY | 2018-03-15 11:55 | XMS REPORT | Clinical Summary ---
Author Author [facility] Organization [facility] Address Unknown Phone Unavailable Care Team Providers Care Administrative Assistant Front Desk Name Role Phone Nelia Jules MD Unavailable Aubrey Ball MD PCP Jori Gallegos MD 100 Tati Alejandro RN Unavailable Unavailable Clarissa Minor EDUCATION SITE MANAGER Unavailable Source Comments Some departments are not documenting in the electronic medical record. If you do not see the information that you expected, contact Release of Information in the Health Information Management department at [phone] for further assistance in locating additional records.[facility] Allergies Active Allergy Reactions Severity Noted Date Comments Amiodarone NAUSEA ONLY Low 11/23/2017 Losartan ANGIOEDEMA 10/03/2010 Dronedarone DIARRHEA Low 08/22/2017 severe Amlodipine EDEMA 12/30/2010 Rosuvastatin UNKNOWN Low Propafenone SEE COMMENTS Low 08/22/2017 "foggy headed" Sulfa (Sulfonamide HIVES, RASH 06/01/2010 Antibiotics) Current Medications Prescription Sig. Disp. Refills [...] mg by mouth Active mg tablet daily. metoprolol XL (TOPROL XL) Take 25 mg by mouth Active 25 mg extended release daily. tablet amiodarone (PACERONE) 100 Take 1 tablet by mouth 30 tablet 11 Active mg tablet daily. 18 Active Problems Problem Noted Date Encounter for monitoring amiodarone therapy 10/12/2017 Cardiac device in situ 02/14/2017 Overview: LINQ [...] showed no obstructive disease. She has a [id number] score of 2--Female, HTN. Please refer to [...] the last 2-[address] Hewitt, in [place], did a CARDIAC CATH 08/2013 and her [...] Atrial fibrillation (HCC) 07/07/2014 Overview: 05/13/14: VICKIE: [facility]: EF 50% Echogenic density was noted [...] Ventricular tachycardia (HCC) 06/15/2014 Overview: 08/20/13: Cath: [facility]: EF 60% dominant circumflex system with [...] poorly Atrial flutter (HCC) 11/07/2010 Overview: SEI [id number]/11 CHADS2=one (HTN) Fall 2010-no flutteror AF-OK to DC Pradaxa L ast Assessment & Plan: No recurrence since ablation. 48 hour holter on 08/16/13 was negative for any atrial arrhythmias. Continues to be on daily aspirin therapy. Hyperlipidemia 09/22/2010 Last Assessment & Plan: Continues to be managed by Dr. Hewitt's office. Atypical chest pain Overview: 07/2007: [facility] @ [facility]: no significant CAD. 20% mid circ. EF-wnl. RCA-spasm during cath. 05/18/2010: [facility] @ [facility]: No obstructive CAD, normal LV size/function. EF 60% HTN (hypertension) Last Assessment & Plan: Well controlled on current therapy. Palpitations Overview: 07/2007 - Complete echocardiogram: Ejection fraction 60%. Mild left ventricular hypertrophy. Trace MR. Mild TR. 30 day event monitor showed Atrial Tach at 140-150bpm for 2-4 sec.. Toprol 25mg XL qd. 08/18/13: MPI: [facility]: EF 59%. Fair exercise tolerance. Frequent VPDs, ventricular bigeminy and ventricular couplets noted at rest and during recovery phase. Non diagnostic ECG changes with exercise. Reversible ischemia involving the whole anterior wall and anterior apex. 01/06/14: Echo: [facility]: EF 60% bradycardia in 40's for procedure. Left atrial dilatation. Moderate mitral regurgitation. Moderate tricuspid regurgitation. Estimated PAP of 40 mmHg Resolved Problems Problem Noted Date Resolved Date Cardiac pacemaker in situ 11/20/2016 11/22/2016 Encounters Date Type Specialty Care Team Description 03/04/2018 Telephone Cardiology Anh Lopez Remote Monitoring Transferred (Released from [facility]) 03/02/2018 Telephone Cardiology Minerva Hernandez, RN Remote Monitoring Transferred (To [facility] in [place], [place]) 02/25/2018 [facility] Cardiology Jori Gallegos MD Encounter 02/18/2018 Anticoagulation Cardiology Leilani Amaral, RICARDO Anticoagulation (INR 2.7 - Dr. Hewitt's office manages INR) 02/06/2018 [facility] Cardiology Ellen Springer RN Results ( INR 2.7 -- Dr. Hewitt's office manages ) 01/25/2018 Hospital Cardiology Jori Gallegos MD Encounter 01/21/2018 Documentation Cardiology Alix Blackwood RN Lab Results ( INR 2.5, manages) 01/04/2018 Documentation Cardiology Brandy Park RN Lab Results (INR 1.8 (Dr. Hewitt manages)) 12/31/2017 Documentation Cardiology Leilani Amaral RN Anticoagulation (INR 4.1 - managed by Dr. Hewitt) 12/26/2017 Hospital Cardiology Jori Gallegos MD Encounter from Last 3 Months Family History Medical History Relation Name Comments Coronary Artery Disease Brother Coronary Artery Disease Brother Heart Attack Brother Arrhythmia Brother atrial flutter Coronary Artery Disease Father Heart Attack Father Stroke Mother Relation Name Status Comments Brother Alive Brother Alive Brother Brother Father IA (Age 47) Mother Social History Tobacco Use Types Packs/Day Years Used Date Never Smoker Smokeless Tobacco: Never Used Alcohol Use Drinks/Week oz/Week Comments No Sex Assigned at Date Recorded Not on file Last Filed Vital Signs Vital Sign Reading Time Taken Blood Pressure 120/70 11/23/2017 3:28 PM CDT Pulse 70 11/23/2017 3:28 PM CDT Temperature 36.5 C (97.7 F) 12/25/2015 11:03 AM CDT Respiratory Rate - - Oxygen Saturation 95% 10/23/2017 10:35 AM CDT Inhaled Oxygen - - Concentration Weight 65.6 kg (144 lb 11.2 oz) 11/23/2017 3:28 PM CDT Height 149.9 cm (4' 11") 11/23/2017 3:28 PM CDT Body Mass Index 29.23 11/23/2017 3:28 PM CDT Plan of Treatment Health Maintenance Due Date Last Done Comments HEPATITIS C SCREENING 1952 PHYSICAL (COMPREHENSIVE) 1959 EXAM PERTUSSIS VACCINE 1963 HIV SCREENING 1967 TETANUS VACCINE 1969 BREAST CANCER SCREENING 1992 COLORECTAL CANCER 2002 SCREENING SHINGLES RECOMBINANT 2002 VACCINE (1 of 2) OSTEOPOROSIS SCREENING 2017 PNEUMONIA (PCV13/PPSV23) 2017 VACCINES (1 of 2 - PCV13) INFLUENZA VACCINE 04/08/2018 Procedures Procedure Name Priority Date/Time Associated Diagnosis Comments ECG-SCAN 12/15/2017 Results for this 8:55 AM CDT procedure are in the results section. from Last 3 Months Results * DEVICE EVALUATION - REMOTE ILR (02/26/2018 2:16 PM) Only the most recent of 3 results within the time period is included. ILR History of Afib Yes OTHER OUTSIDE LAB Generator Implnat Date 11/09/16 OTHER OUTSIDE LAB Generator Model # [id number] [address]vis[address] NOVAK OTHER OUTSIDE LAB Device Implanted By Dr. Lluvia Hewitt @ [facility] OTHER OUTSIDE LAB in [place], [place] Generator Serial # [id number] OTHER OUTSIDE LAB EP Device Followed by Jori Gallegos MD OTHER OUTSIDE LAB Name ILR Symptom Duration Four 7.5min episodes OTHER OUTSIDE LAB ILR Pause Duration off OTHER OUTSIDE LAB ILR AT Events Since Last 0 OTHER OUTSIDE LAB Interrogation ILR AT Lifetime Events as 540 OTHER OUTSIDE LAB of ILR Percent Time in AT/AF V sensitivity 0.025mv OTHER OUTSIDE LAB Duration Remote Monitor Serial# [id number] OTHER OUTSIDE LAB Generator Order Takers Supervisor Medtronic OTHER OUTSIDE LAB Generator Investigational No OTHER OUTSIDE LAB Wireless Generator No OTHER OUTSIDE LAB Device Type DDD-PM OTHER OUTSIDE LAB EP Device Followed By MAC OTHER OUTSIDE LAB Device [employer] [facility] OTHER OUTSIDE LAB Transmitter Compatible On AntiCoag Date 2,011 OTHER OUTSIDE LAB Known Diagnosed AFib Yes OTHER OUTSIDE LAB On Anticoagulation Yes OTHER OUTSIDE LAB MIGUEL/EOL Indicator 2.83V OTHER OUTSIDE LAB Atrial Lead Order Takers Supervisor Medtronic OTHER OUTSIDE LAB Atrial Lead Model # 5076 CapSureFix Novus OTHER OUTSIDE LAB Atrial Lead Serial # [id number] OTHER OUTSIDE LAB Atrial Lead Implant Date 11/09/16 OTHER OUTSIDE LAB RV Lead Order Takers Supervisor Medtronic OTHER OUTSIDE LAB RV Lead Model # 4076 capsurefix OTHER OUTSIDE LAB RV Lead Serial # [id number] OTHER OUTSIDE LAB RV Lead Implant Date 11/09/16 OTHER OUTSIDE LAB Atrial Lead No OTHER OUTSIDE LAB Investigational RV Lead Investigational No OTHER OUTSIDE LAB Generator MRI Conditional Yes OTHER OUTSIDE LAB Date of Last Programming 08/22/17 OTHER OUTSIDE LAB Device Mode DDIR OTHER OUTSIDE LAB Lower Rate Limit 70 OTHER OUTSIDE LAB Sense AV Delay 320 OTHER OUTSIDE LAB Mode Switch (bpm) 171 OTHER OUTSIDE LAB High A Rate Detect >171 bpm OTHER OUTSIDE LAB High V Rate Detect >150 bpm OTHER OUTSIDE LAB Mode Switch Status On OTHER OUTSIDE LAB HF Patient No OTHER OUTSIDE LAB Next Remote Check Due 02/2018 OTHER OUTSIDE LAB Accssory Serial Number [employer] Transmitter OTHER OUTSIDE LAB Enrollment Date 11/10/16 OTHER OUTSIDE LAB Date of baseline remote 11/18/16 OTHER OUTSIDE LAB transmission Remote Monitoring? Yes OTHER OUTSIDE LAB Remote Connectivity Cellular adaptor OTHER OUTSIDE LAB Device Remote Manual Yes OTHER OUTSIDE LAB Downloads Pacemaker Dependant No OTHER OUTSIDE LAB ILR Tachy Rate 167 OTHER OUTSIDE LAB ILR Ranjeet Rate 30 OTHER OUTSIDE LAB ILR AF Rate AF only OTHER OUTSIDE LAB Date of Last 11/23/17 OTHER OUTSIDE LAB Interrogation ILR Current Monitoring 02/25/2018 to 03/28/2018 OTHER OUTSIDE LAB Period ILR Date of Last Daily 02/26/2018 OTHER OUTSIDE LAB Connection ILR Battery Status OK OTHER OUTSIDE LAB ILR Symptom Events Since 0 OTHER OUTSIDE LAB Last Interrogation ILR Symptom Lifetime 1 OTHER OUTSIDE LAB Events as of ILR Tachy Events Since 0 OTHER OUTSIDE LAB Last Interrogation ILR Tachy Lifetime Events 0 OTHER OUTSIDE LAB as of ILR Pause Events Since 0 OTHER OUTSIDE LAB Last Interrogation ILR Pause Lifetime Events 51 OTHER OUTSIDE LAB as of ILR Ranjeet Events Since 0 OTHER OUTSIDE LAB Last Interrogation ILR Ranjeet Lifetime Events 4,372 OTHER OUTSIDE LAB as of ILR AF Events Since Last 0 OTHER OUTSIDE LAB Interrogation ILR AF Lifetime Events as 2,770 OTHER OUTSIDE LAB of ILR Percent Time in AT/AF 0.0% OTHER OUTSIDE LAB Events Since Last Interrogation ILR Percent Time in AT/AF 2.0% OTHER OUTSIDE LAB Lifetime of Events as of ILR Presenting ECG Strip 02/26/2018 @ 00:04:50 shows SR OTHER OUTSIDE LAB in the 70's with multifocal PVCs ILR Lifetime Events as of 02/26/2018 OTHER OUTSIDE LAB Datetion Narrative Performed At OTHER OUTSIDE LAB AF Anticoagulated [02/26/2018 2:18:35 PM - SARAH MAGALLON] Presenting EGM on 02/26/2018 @ 00:04:50 shows SR in the 70's with multifocal PVCs. Summary report received and reviewed. No new event to report. Results routed to Dr. Gallegos for signature and review. Performing Organization Address City/State/Zipcode Phone Number OTHER OUTSIDE LAB * PROTIME INR (PT) (02/18/2018) Only the most recent of 4 results within the time period is included. INR 2.7 OTHER OUTSIDE LAB Specimen Blood - Blood Narrative Performed At Performing Organization Address City/State/Zipcode Phone Number OTHER OUTSIDE LAB * CBC (01/03/2018) White Blood Cells 9.9 OTHER OUTSIDE LAB RBC 4.9 OTHER OUTSIDE LAB Hemoglobin 13.4 OTHER OUTSIDE LAB Hematocrit 42.5 OTHER OUTSIDE LAB MCV 86.7 OTHER OUTSIDE LAB MCH 27.3 OTHER OUTSIDE LAB MCHC 31.5 (A) 32 OTHER OUTSIDE LAB Platelet Count 374 OTHER OUTSIDE LAB MPV 17.2 (A) 14.8 OTHER OUTSIDE LAB RDW OTHER OUTSIDE LAB Specimen Blood - Blood Narrative Performed At Performing Organization Address City/State/Zipcode Phone Number OTHER OUTSIDE LAB * COMPREHENSIVE METABOLIC PANEL (01/03/2018) Sodium 138 OTHER OUTSIDE LAB Potassium 4.1 OTHER OUTSIDE LAB Chloride 102 OTHER OUTSIDE LAB CO2 28 OTHER OUTSIDE LAB Blood Urea Nitrogen 12 OTHER OUTSIDE LAB Creatinine 0.7 OTHER OUTSIDE LAB Glucose 122 OTHER OUTSIDE LAB Calcium 9.5 OTHER OUTSIDE LAB Total Protein 6.7 OTHER OUTSIDE LAB Total Bilirubin 1.1 OTHER OUTSIDE LAB Albumin 4.3 OTHER OUTSIDE LAB Alk Phosphatase 65 OTHER OUTSIDE LAB AST (SGOT) 21 OTHER OUTSIDE LAB ALT (SGPT) 11 OTHER OUTSIDE LAB eGFR Non OTHER OUTSIDE LAB eGFR OTHER OUTSIDE LAB Anion Gap OTHER OUTSIDE LAB Specimen Blood - Blood Narrative Performed At OTHER OUTSIDE LAB Historical labs from PCP office. Performing Organization Address City/State/Zipcode Phone Number OTHER OUTSIDE LAB * ECG-SCAN (12/15/2017 8:55 AM) Narrative Performed At Ordered by an unspecified provider. from Last 3 Months
--- OUTSIDE RECORDS SUMMARY | 2018-03-15 11:55 | XMS REPORT | Encounter Summary ---
Author Author [facility] Organization [facility] Address Unknown Phone Unavailable Care Team Providers Care Legal Service Specialist Name Role Phone Nelia Jules MD Unavailable Aubrey Ball MD PCP Jori Gallegos MD 100 Tati Alejandro RN Unavailable Unavailable Clarissa Minor STUDIO DIRECTOR Unavailable Reason for Visit * Reason Comments Remote Monitoring To [facility] in [place], [place] Transferred Encounter Details Date Type Department Care Team Description 03/02/2018 Telephone [facility] Cardiology Minerva Hernandez RN Remote Monitoring [place] [address] Transferred (To [address] [facility] [place] [address] [place]) [phone] Social History Tobacco Use Types Packs/Day Years [...] impairment: No 07/08/2014 as of this encounter Miscellaneous Notes * Telephone Encounter - Minerva Hernandez RN - 03/02/2018 10:33 AM CDT We rec'd a request to transfer [facility] service to in [place], [place], which is where her primary admissions gate attendant Dr. Hewitt is. Carelink was released. Dr. Hewitt also manages her INR. in this encounter Plan of Treatment Not on fileas of this encounter Visit Diagnoses Not on filein this encounter
--- OUTSIDE RECORDS SUMMARY | 2018-03-15 11:56 | XMS REPORT | Encounter Summary ---
Author Author [facility] Organization [facility] Address Unknown Phone Unavailable Care Team Providers Care Leasing Associate Name Role Phone Nelia Jules MD Unavailable Aubrey Ball MD PCP Jori Gallegos MD [address] Tati Alejandro RN Unavailable Unavailable Clarissa Minor AIRCRAFT INSTRUMENT ENGINEER Unavailable Reason for Visit * Reason Comments Lab Results INR 2.5, manages Encounter Details Date Type Department Care Team Description 01/21/2018 Documentation [facility] Alix Blackwood RN Lab Results (INR 2.5, [address] manages) [place] [address] Social History Tobacco Use Types Packs/Day Years [...] impairment: No 07/08/2014 as of this encounter Progress Notes * Alix Blackwood RN - 01/21/2018 11:48 AM CDT Received INR results from [facility]. Dr. Hewitt manages. Results entered in this encounter Plan of Treatment Not on fileas of this encounter Results * PROTIME INR (PT) (01/21/2018) INR 2.5Comment: Dr. Hewitt manages OTHER OUTSIDE LAB Specimen Blood - Blood Narrative Performed At Performing Organization Address City/State/Zipcode Phone Number OTHER OUTSIDE LAB in this encounter Visit Diagnoses Not on filein this encounter
--- OUTSIDE RECORDS SUMMARY | 2018-03-15 11:56 | XMS REPORT | Encounter Summary ---
Author Author [facility] Organization [facility] Address Unknown Phone Unavailable Care Team Providers Care Superintendent Sales Name Role Phone Nelia Jules MD Unavailable Aubrey Ball MD PCP Jori Gallegos MD [address] Tati Alejandro RN Unavailable Unavailable Clarissa Minor PRESSURE VESSEL INSPECTOR Unavailable Encounter Details Date Type Department Care Team Description 01/25/2018 [facility] Cardiology Jori Gallegos MD Encounter Remote Device Check [address] [facility] [phone] [address] [place] [address] [phone] Social History Tobacco Use Types Packs/Day Years [...] daily as Atypical chest pain, needed. Palpitations amiodarone (PACERONE) 100 Take 1 tablet by mouth 30 tablet 11 2017 mg tablet daily. atorvastatin (LIPITOR) 40 Take 40 mg by [...] EVEN DAYS AND TWO ON ODD DAYS metoprolol XL (TOPROL XL) Take 25 mg by mouth 25 mg extended release daily. tablet mexiletine (MEXITIL) 200 1 Cap twice daily. [...] Results * DEVICE EVALUATION - REMOTE ILR (01/28/2018 1:27 PM) ILR History of Afib Yes OTHER OUTSIDE LAB Generator Implnat Date 11/09/16 OTHER OUTSIDE LAB Generator Model # [id number] Dereje[address] DR NOVAK OTHER OUTSIDE LAB Device Implanted By Dr. Lluvia Hewitt @ [facility] OTHER OUTSIDE LAB in [place], [place] Generator Serial # [id number] OTHER OUTSIDE LAB EP Device Followed by [...] OTHER OUTSIDE LAB Duration Remote Monitor Serial# [id number] OTHER OUTSIDE LAB Generator Prop Sawyer Medtronic OTHER OUTSIDE LAB Generator Investigational No OTHER OUTSIDE LAB Wireless Generator No OTHER OUTSIDE LAB Device Type DDD-PM OTHER OUTSIDE LAB EP Device Followed By MAC OTHER OUTSIDE LAB Device [employer] [facility] OTHER OUTSIDE LAB Transmitter Compatible On AntiCoag Date 2,011 OTHER OUTSIDE LAB Known Diagnosed AFib Yes OTHER OUTSIDE LAB On Anticoagulation Yes OTHER OUTSIDE LAB MIGUEL/EOL Indicator 2.83V OTHER OUTSIDE LAB Atrial Lead Prop Sawyer Medtronic OTHER OUTSIDE LAB Atrial Lead Model # 5076 CapSureFix Novus OTHER OUTSIDE LAB Atrial Lead Serial # [id number] OTHER OUTSIDE LAB Atrial Lead Implant Date 11/09/16 OTHER OUTSIDE LAB RV Lead Prop Sawyer Medtronic OTHER OUTSIDE LAB RV Lead Model # 4076 capsurefix OTHER OUTSIDE LAB RV Lead Serial # [id number] OTHER OUTSIDE LAB RV Lead Implant Date [...] OTHER OUTSIDE LAB Interrogation ILR Current Monitoring 01/25/18-02/25/18 OTHER OUTSIDE LAB Period ILR Date of Last Daily 01/28/18 OTHER OUTSIDE LAB Connection ILR Battery Status [...] LAB of ILR Percent Time in AT/AF 0 OTHER OUTSIDE LAB Events Since Last Interrogation ILR Percent Time in AT/AF 2.0 OTHER OUTSIDE LAB Lifetime of Events as of ILR Presenting ECG Strip 01/28/18 @ 0004 SR 60's with OTHER OUTSIDE LAB ectopy ILR Lifetime Events as of 01/28/18 OTHER OUTSIDE LAB Datetion Narrative Performed At OTHER OUTSIDE LAB Coumadin [01/28/2018 1:28:50 PM - CEE PEÑA] Presenting EGM: 01/28/18 @ 0004 SR 60's with ectopy. Summary report received and reviewed,no new events to report, will continue to monitor. Results routed to Dr. Gallegos for signature and review. __ Performing Organization Address City/State/Zipcode Phone Number OTHER OUTSIDE LAB in this encounter Visit Diagnoses Diagnosis Palpitations Cardiac device in situ Unspecified cardiac device in situ
--- OUTSIDE RECORDS SUMMARY | 2018-03-15 11:56 | XMS REPORT | Encounter Summary ---
Author Author [facility] Organization [facility] Address Unknown Phone Unavailable Care Team Providers Care Propulsion Systems Engineer Name Role Phone Nelia Jules MD Unavailable Aubrey Blal MD PCP Jori Gallegos MD 100 Tati Alejandro RN Unavailable Unavailable Clarissa Minor DOCUMENTATION CLERK Unavailable Reason for Visit * Reason Comments Results INR 2.7 -- Dr. Hewitt's office manages Encounter Details Date Type Department Care Team Description 02/06/2018 [facility] Ellen Springer RN Results (INR 2.7 -- Dr. Elan Nickerson [facility] [address] Marcelina's office manages ) [facility] [address] [address] [place] [address] Social History Tobacco Use Types Packs/Day Years [...]
--- OUTSIDE RECORDS SUMMARY | 2018-03-15 11:56 | XMS REPORT | Encounter Summary ---
Author Author [facility] Organization [facility] Address Unknown Phone Unavailable Care Team Providers Care Wellness Director Name Role Phone Nelia Jules MD Unavailable Aubrey Ball MD PCP Jori Gallegos MD 100 Tati Alejandro RN Unavailable Unavailable Clarissa Minor EMERGENCY DEPARTMENT AIDE Unavailable Reason for Visit * Reason Comments Anticoagulation INR 2.7 - Dr. Hewitt's office manages INR Encounter Details Date Type Department Care Team Description 02/18/2018 Antico[facility] Leilani Amaral RN Anticoagulation (INR 2.7 [address] [place] [address] manages INR) [phone] Social History Tobacco Use Types Packs/Day Years [...] this encounter Results * PROTIME INR (PT) (02/18/2018) INR 2.7 OTHER OUTSIDE LAB Specimen Blood - Blood Narrative Performed At Performing Organization Address City/State/Zipcode Phone Number OTHER OUTSIDE LAB in this encounter Visit Diagnoses Not on filein this encounter
--- OUTSIDE RECORDS SUMMARY | 2018-03-15 11:56 | XMS REPORT | Encounter Summary ---
Author Author [facility] Organization [facility] Address Unknown Phone Unavailable Care Team Providers Care Athlete Manager Name Role Phone Nelia Jules MD Unavailable Aubrey Ball MD PCP Jori Gallegos MD 100 Tati Alejandro RN Unavailable Unavailable Clarissa Minor TRAFFIC ENGINEERING DIRECTOR Unavailable Encounter Details Date Type Department Care Team Description 02/25/2018 [facility] Cardiology Jori Gallegos MD Encounter Remote Device Check [address] [facility] [phone] [address] [place] [address] [phone] Social History Tobacco Use Types Packs/Day Years [...] EVALUATION - REMOTE ILR (02/26/2018 2:16 PM) ILR History of Afib Yes OTHER OUTSIDE LAB Generator Implnat Date 11/09/16 OTHER OUTSIDE LAB Generator Model # [id number] Advis[address] DR NOVAK OTHER OUTSIDE LAB Device Implanted By Dr. Lluvia Hewitt @ [facility] OTHER OUTSIDE LAB in [place], [place] Generator Serial # [id number] OTHER OUTSIDE LAB EP Device Followed by [...] OTHER OUTSIDE LAB Duration Remote Monitor Serial# [id number] OTHER OUTSIDE LAB Generator Box Brander Medtronic OTHER OUTSIDE LAB Generator Investigational No OTHER OUTSIDE LAB Wireless Generator No OTHER OUTSIDE LAB Device Type DDD-PM OTHER OUTSIDE LAB EP Device Followed By MAC OTHER OUTSIDE LAB Device [employer] [facility] OTHER OUTSIDE LAB Transmitter Compatible On AntiCoag Date 2,011 OTHER OUTSIDE LAB Known Diagnosed AFib Yes OTHER OUTSIDE LAB On Anticoagulation Yes OTHER OUTSIDE LAB MIGUEL/EOL Indicator 2.83V OTHER OUTSIDE LAB Atrial Lead Box Brander Medtronic OTHER OUTSIDE LAB Atrial Lead Model # 5076 CapSureFix Novus OTHER OUTSIDE LAB Atrial Lead Serial # [id number] OTHER OUTSIDE LAB Atrial Lead Implant Date 11/09/16 OTHER OUTSIDE LAB RV Lead Box Brander Medtronic OTHER OUTSIDE LAB RV Lead Model # 4076 capsurefix OTHER OUTSIDE LAB RV Lead Serial # [id number] OTHER OUTSIDE LAB RV Lead Implant Date [...]
--- OUTSIDE RECORDS SUMMARY | 2018-03-15 11:56 | XMS REPORT | Encounter Summary ---
Author Author [facility] Organization [facility] Address Unknown Phone Unavailable Care Team Providers Care Forklift Operator Name Role Phone Nelia Jules MD Unavailable Aubrey Ball MD PCP Jori Gallegos MD [address] RN Unavailable Unavailable Clarissa Minor QUILL STRIPPER Unavailable Reason for Visit * Reason Comments Anticoagulation INR 4.1 - managed by Dr. Hewitt Encounter Details Date Type Department Care Team Description 12/31/2017 [facility] Leilani Amaral RN Anticoagulation (INR 4.[address] - managed by Dr. Hewitt) [place] [address] Social History Tobacco Use Types Packs/Day Years [...] as of this encounter Progress Notes * Leilani Amaral RN - 12/31/2017 5:19 PM CDT INR 4.1 - managed by Dr. Hewitt in this encounter Plan of Treatment Not on fileas of this encounter Results * PROTIME INR (PT) (12/31/2017) INR 4.1 OTHER OUTSIDE LAB Specimen Blood - Blood Narrative Performed At Performing Organization Address City/State/Zipcode Phone Number OTHER OUTSIDE LAB in this encounter Visit Diagnoses Not on filein this encounter
--- OUTSIDE RECORDS SUMMARY | 2018-03-15 11:56 | XMS REPORT | Encounter Summary ---
Author Author [facility] Organization [facility] Address Unknown Phone Unavailable Care Team Providers Care Control Electrician Name Role Phone Nelia Jules MD Unavailable Aubrey Ball MD PCP Jori Gallegos MD 100 Tati Alejandro RN Unavailable Unavailable Clarissa Minor SUPERVISOR ROD PLACING Unavailable Encounter Details Date Type Department Care Team Description 12/26/2017 [facility] Cardiology Jori Gallegos MD Encounter Remote Device Check [address] [facility] [phone] [address] [place] [address] [phone] Social History Tobacco Use Types Packs/Day Years [...] Results * DEVICE EVALUATION - REMOTE ILR (01/02/2018 12:51 PM) ILR History of Afib Yes OTHER OUTSIDE LAB Generator Implnat Date 11/09/16 OTHER OUTSIDE LAB Generator Model # [id number] Advisa DR NOVAK OTHER OUTSIDE LAB Device Implanted By Dr. 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 [employer] OTHER OUTSIDE LAB Generator Investigational No OTHER OUTSIDE LAB Wireless Generator No OTHER OUTSIDE LAB Device Type DDD-PM OTHER OUTSIDE LAB EP Device Followed By MAC OTHER OUTSIDE LAB Device [place] [facility] OTHER OUTSIDE LAB Transmitter Compatible On AntiCoag Date 2,011 OTHER OUTSIDE LAB Known Diagnosed AFib Yes OTHER OUTSIDE LAB On Anticoagulation Yes OTHER OUTSIDE LAB MIGUEL/EOL Indicator 2.83V OTHER OUTSIDE LAB Atrial Lead [employer] Professor [employer] OTHER OUTSIDE LAB Atrial Lead Model # 5076 [employer] OTHER OUTSIDE LAB Atrial Lead Serial # [id number] OTHER OUTSIDE LAB Atrial Lead Implant Date 11/09/16 OTHER OUTSIDE LAB RV Lead [employer] Professor [employer] OTHER OUTSIDE LAB RV Lead Model # 4076 capsurefix OTHER OUTSIDE LAB RV Lead Serial # [id number] OTHER OUTSIDE LAB RV Lead Implant Date [...] OTHER OUTSIDE LAB Interrogation ILR Current Monitoring 12/26/17-01/25/18 OTHER OUTSIDE LAB Period ILR Date of Last Daily 01/02/18 OTHER OUTSIDE LAB Connection ILR Battery Status [...] as 2,770 OTHER OUTSIDE LAB of ILR Presenting ECG Strip 01/02/18 @ 0004 SR 68 bpm OTHER OUTSIDE LAB ILR Lifetime Events as of 01/02/18 OTHER OUTSIDE LAB Datetion Narrative Performed At OTHER OUTSIDE LAB Coumadin [01/02/2018 12:54:13 PM - [facility]] Presenting EGM: 01/02/18 @ 0004 SR 68 bpm. Summary report received and reviewed,no new events to report, will continue to monitor. Results routed to Dr. Gallegos for signature and review. Performing Organization Address City/State/Zipcode Phone Number OTHER OUTSIDE LAB in this encounter Visit Diagnoses Diagnosis Palpitations Cardiac device in situ Unspecified cardiac device in situ
--- OUTSIDE RECORDS SUMMARY | 2018-03-15 11:56 | XMS REPORT | Encounter Summary ---
Author Author [facility] Organization [facility] Address Unknown Phone Unavailable Care Team Providers Care Enterer Name Role Phone Nelia Jules MD Unavailable Aubrey Ball MD PCP Jori Gallegos MD 100 Tati Alejandro RN Unavailable Unavailable Clarissa Minor INTELLECTUAL PROPERTY MANAGER Unavailable Reason for Visit * Reason Comments Lab Results INR 1.8 (Dr. Hewitt manages) Encounter Details Date Type Department Care Team Description 01/04/2018 Documentation [facility] [place] RN Lab Results (INR 1.8 (Dr. Elan Suarez Bld[address]3 3rd Marcelina manages)) [facility] [id number] [place] [address] Social History Tobacco Use Types [...] on fileas of this encounter Results * COMPREHENSIVE METABOLIC PANEL (01/03/2018) Sodium 138 [...] OTHER OUTSIDE LAB * PROTIME INR (PT) (01/03/2018) INR 1.8 OTHER OUTSIDE LAB Specimen Blood - Blood [...]
[2018-03-15 12:53] LABS: BASOPHILS # (AUTO) 0.1 10^3/uL (0.0-0.1); BASOPHILS % (AUTO) 1 % (0-10); EOSINOPHILS # (AUTO) 0.1 10^3/uL (0.0-0.3); EOSINOPHILS % (AUTO) 1 % (0-10); HEMATOCRIT 35 % (35-52); HEMOGLOBIN 10.6 G/DL (11.5-16.0); LYMPHOCYTES # (AUTO) 3.2 X 10^3 (1.0-4.0); LYMPHOCYTES % (AUTO) 30 % (12-44); MEAN CORPUSCULAR HEMOGLOBIN 24 PG (25-34); MEAN CORPUSCULAR HGB CONC 31 G/DL (32-36); MEAN CORPUSCULAR VOLUME 77 FL (80-99); MEAN PLATELET VOLUME 9.9 FL (7.4-10.4); MONOCYTES % (AUTO) 9 % (0-12); NEUTROPHILS # (AUTO) 6.3 X 10^3 (1.8-7.8); NEUTROPHILS % (AUTO) 59 % (42-75); PLATELET COUNT 379 10^3/uL (130-400); RED BLOOD COUNT 4.47 10^6/uL (4.35-5.85); RED CELL DISTRIBUTION WIDTH 18.7 % (10.0-14.5); WHITE BLOOD COUNT 10.7 10^3/uL (4.3-11.0)
--- NOTE | 2018-03-15 12:57 | ED Neurological Problem ---
General Chief Complaint: Neurological Problems Stated Complaint: AMS Nursing Triage Note: TO ED FROM 'S OFFICE PATIABILIO HAVING HALLUCINATIONS SINCE Sun. AFTER HAVNG A BLADDER BIOSPY. REPORTS SHE THOUGH HE CAME HOME FOR LUNCH HE NEVER COMES HOME FOR LUNCH,CONVERSATION WITH PEOPLE THAT ARE NOT THERE. ALERT ON ADMIT. Nursing Sepsis Screen: No Definite Risk Source: patient, family Exam Limitations: no limitations History of Present Illness Date Seen by Provider: Mar 15, 2018 Time Seen by Provider: 12:59 Initial Comments To ER per private vehicle from Dr. Daily's office with reports of hallucinations. Patient had a bladder biopsy on Sunday03/13/[address] Zarate. She was on Coumadin. Coumadin has been held. Starting Sunday evening after anesthesia she developed hallucinations. She believes that she saw her at lunch time when he states he did not come home for lunch. He states that she has also been having conversations with people that are not there. She has not yet restarted her warfarin which she takes for atrial fibrillation. She did start Lunesta one week ago Timing/Duration: other Severity: moderate Associated Symptoms: confusion; No fever/chills Allergies and Home Medications Allergies Coded Allergies: rosuvastatin (Unverified Allergy, Mild, 03/06/18) Sulfa (Sulfonamide Antibiotics) (Verified Allergy, Unknown, 03/06/18) Home Medications Alprazolam 0.5 Mg Tablet, 0.25 MG PO TID PRN for ANXIETY, (Reported) TAKES 1/2 OF A (0.5 MG) TABLET Atorvastatin Calcium 40 Mg Tablet, 40 MG PO HS, (Reported) Cefdinir 300 Mg Capsule, 300 MG PO BID Prescribed by: ZIYAD BUNN on 03/15/18 1336 Cranberry Extract 500 Mg Tablet, 500 MG PO DAILY, (Reported) Escitalopram Oxalate 20 Mg Tablet, 10 MG PO DAILY, (Reported) Eszopiclone 3 Mg Tablet, 3 MG PO HS, (Reported) Furosemide 20 Mg Tablet, 20 MG PO DAILY, (Reported) Metoprolol Succinate 25 Mg Tab.er.24h, 25 MG PO DAILY, (Reported) Nitrofurantoin Monohyd/M-Cryst 100 Mg Capsule, 1 TAB PO BID Prescribed by: YUNIER TEAGUE on 03/13/18 0930 Pantoprazole Sodium 40 Mg Tablet.dr, 40 MG PO BID, (Reported) Phenazopyridine HCl 100 Mg Tablet, 100 MG PO TID PRN for SPASMS Prescribed by: YUNIER ETAGUE on 03/13/18 0930 Spironolactone 25 Mg Tablet, 25 MG PO DAILY, (Reported) Patient Home Medication List Home Medication List Reviewed: Yes Review of Systems Review of Systems Constitutional: see HPI Eyes: No Symptoms Reported Ears, Nose, Mouth, Throat: no symptoms reported Respiratory: no symptoms reported Cardiovascular: no symptoms reported Genitourinary: see HPI, hematuria (she does not have any gross hematuria) Musculoskeletal: no symptoms reported Skin: no symptoms reported Psychiatric/Neurological: No Symptoms Reported Endocrine: No Symptoms Reported (I saw the) Past Cxehudc-Aiwmde-Gkxbin Hx Patient Social History Alcohol Use: Denies Use Recreational Drug Use: No 2nd Hand Smoke Exposure: Yes Recent Foreign Travel: No Contact w/Someone Who Travel: No Recent Infectious Disease Expo: No Recent Hopitalizations: Yes (JANUARY 2018-GALLBLADDER X 1 WEEK) Immunizations Up To Date Tetanus Booster (TDap): Less than 5yrs PED Vaccines UTD: No Date of Influenza Vaccine: Apr 17, 2017 Seasonal Allergies Seasonal Allergies: No Past Medical History Surgeries: Yes (HYST,BREAST REDUCTION,OOPH.,RECTOCELE) Cardiac, Gallbladder, Hysterectomy, Oophorectomy, Pacemaker, Tonsillectomy Respiratory: Yes Sleep Apnea Currently Using CPAP: Yes Cardiac: Yes Atrial Fibrillation, High Cholesterol, Hypertension Neurological: No Reproductive Disorders: No (X1 MISCARRIAGE) 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 History: Hysterectomy Sexually Transmitted Disease: No HIV/AIDS: No Genitourinary: Yes UTI-Chronic Gastrointestinal: Yes (HX C-DIFF) Gastroesophageal Reflux, Diverticulosis Musculoskeletal: Yes (GENERALIZED WEAKNESS-SINCE SEPSIS JANUARY 2018) Endocrine: No Loss of Vision: Bilateral Hearing Impairment: Denies Cancer: No Psychosocial: Yes Anxiety, Depression Integumentary: No Blood Disorders: No Adverse Reaction/Blood Tranf: No (HAS HAD BLOOD WITH NO REACTIION) Family Medical History Heart Disease, CAD Under 55 Years Old Physical Exam Vital Signs Vital Signs - First Documented 03/15/18 12:36 Pulse 76 Resp 18 B/P (MAP) 145/66 (92) Pulse Ox 96 O2 Delivery Room Air Capillary Refill : Less Than 3 Seconds Height, Weight, BMI Height: 4'11.00" Weight: 143lbs. 0.0oz. 64.120090kh; 28.7 BMI Method:Stated General Appearance: WD/WN, no apparent distress, other (she is alert and oriented to person place time and situation without hallucination at this time.) HEENT: PERRL/EOMI, normal ENT inspection Neck: non-tender, full range of motion Respiratory: no respiratory distress, no accessory muscle use Cardiovascular: regular rate, rhythm, no murmur Gastrointestinal: normal bowel sounds, non tender, soft Extremities: normal range of motion, non-tender Neurologic/Psychiatric: alert, normal mood/affect, oriented x 3 Crainal Nerves: normal hearing, normal speech, PERRL Skin: normal color, warm/dry Procedures/Interventions Date of ETT Placement: Jan 07, 2018 Progress/Results/Core Measures Results/Orders Lab Results Laboratory Tests Test 03/15/18 12:41 03/15/18 13:01 Range/Units White Blood Count 10.7 4.3-11.0 10^3/uL Red Blood Count 4.47 4.35-5.85 10^6/uL Hemoglobin 10.6 L 11.5-16.0 G/DL Hematocrit 35 35-52 % Mean Corpuscular Volume 77 L 80-99 FL Mean Corpuscular Hemoglobin 24 L 25-34 PG Mean Corpuscular Hemoglobin Concent 31 L 32-36 G/DL Red Cell Distribution Width 18.7 H 10.0-14.5 % Platelet Count 379 130-400 10^3/uL Mean Platelet Volume 9.9 7.4-10.4 FL Neutrophils (%) (Auto) 59 42-75 % Lymphocytes (%) (Auto) 30 12-44 % Monocytes (%) (Auto) 9 0-12 % Eosinophils (%) (Auto) 1 0-10 % Basophils (%) (Auto) 1 0-10 % Neutrophils # (Auto) 6.3 1.8-7.8 X 10^3 Lymphocytes # (Auto) 3.2 1.0-4.0 X 10^3 Monocytes # (Auto) 1.0 0.0-1.0 X 10^3 Eosinophils # (Auto) 0.1 0.0-0.3 10^3/uL Basophils # (Auto) 0.1 0.0-0.1 10^3/uL Prothrombin Time 19.6 H 12.2-14.7 SEC INR Comment 1.7 H 0.8-1.4 Sodium Level 136 135-145 MMOL/L Potassium Level 3.6 3.6-5.0 MMOL/L Chloride Level 101 98-107 MMOL/L Carbon Dioxide Level 22 21-32 MMOL/L Anion Gap 13 5-14 MMOL/L Blood Urea Nitrogen 22 H 7-18 MG/DL Creatinine 0.95 0.60-1.30 MG/DL Estimat Glomerular Filtration Rate 59 BUN/Creatinine Ratio 23 Glucose Level 112 H 70-105 MG/DL Calcium Level 9.5 8.5-10.1 MG/DL Corrected Calcium 9.2 8.5-10.1 MG/DL Total Bilirubin 1.7 H 0.1-1.0 MG/DL Aspartate Amino Transf (AST/SGOT) 28 5-34 U/L Alanine Aminotransferase (ALT/SGPT) 17 0-55 U/L Alkaline Phosphatase 142 H 40-136 U/L Total Protein 7.4 6.4-8.2 GM/DL Albumin 4.4 3.2-4.5 GM/DL Urine Color YELLOW Urine Clarity CLEAR Urine pH 5 5-9 Urine Specific [place] 1.025 H 1.016-1.022 Urine Protein 3+ H NEGATIVE Urine Glucose (UA) NEGATIVE NEGATIVE Urine Ketones NEGATIVE NEGATIVE Urine Nitrite NEGATIVE NEGATIVE Urine Bilirubin NEGATIVE NEGATIVE Urine Urobilinogen NORMAL NORMAL MG/DL Urine Leukocyte Esterase 2+ H NEGATIVE Urine RBC (Auto) 5+ H NEGATIVE Urine RBC 25-50 H /HPF Urine WBC 10-25 H /HPF Urine Squamous Epithelial Cells 0-2 /HPF Urine Crystals NONE /LPF Urine Bacteria NEGATIVE /HPF Urine Casts NONE /LPF Urine Mucus NEGATIVE /LPF Urine Culture Indicated YES My Orders Orders - ZIYAD BUNN APRN Cbc With Automated Diff (03/15/18 12:32) Comprehensive Metabolic Panel (03/15/18 12:32) Ua Culture If Indicated (03/15/18 12:32) Chest 1 View, Ap/Pa Only (03/15/18 12:32) Iv Heplock-Insert (Order) (03/15/18 12:32) Ct Head Wo (03/15/18 12:44) Ekg Tracing (03/15/18 12:44) Protime With Inr (03/15/18 12:44) Urine Culture (03/15/18 13:01) Ceftriaxone For Iv Use (Rocephin For I (03/15/18 13:30) Vital Signs/I&O 03/15/18 12:36 Pulse 76 Resp 18 B/P (MAP) 145/66 (92) Pulse Ox 96 O2 Delivery Room Air Blood Pressure Mean: 92 Diagnostic Imaging Diagonstic Imaging: CT Comments NAME: [facility] REC#: [id number] PT STATUS: REG ER : 1950 PHYSICIAN: ZIYAD BUNN APRN ADMIT DATE: 03/15/18/ER Draft Date of Exam:03/15/18 CT HEAD WO PROCEDURE: CT head without contrast. TECHNIQUE: Multiple contiguous axial images were obtained through the brain without the use of intravenous contrast. INDICATION: Altered mental status. COMPARISON: No prior studies are available for comparison. FINDINGS: Ventricular size is normal. There is some prominent CSF space along the frontal convexities bilaterally, suggestive of bilateral frontal lobe atrophy. No sulcal effacement is seen. There is no midline shift. No acute intra-axial or extra-axial hemorrhage is seen. The cisterns are patent. The visualized paranasal sinuses are clear. IMPRESSION: Bilateral frontal lobe atrophy. No acute intracranial process is detected. Dictated on workstation # [id number] Dict: 03/15/18 1320 Trans: 03/15/18 1323 [id number] Interpreted by: KOKO DAMON MD Electronically signed by: NAME: [facility] REC#: [id number] PT STATUS: REG ER : 1950 PHYSICIAN: ZIYAD BUNN APRN ADMIT DATE: 03/15/18/ER Draft Date of Exam:03/15/18 CHEST 1 VIEW, AP/PA ONLY Indication: Altered mental status. Time of exam 1:49 PM Correlation is made with prior study of 01/10/2018. Heart size is stable. Cardiac pacer remains in place. There is no infiltrate or failure. No effusion or pneumothorax is seen. Impression: Stable chest. No acute feature is detected. Dictated on workstation # [id number] Dict: 03/15/18 1329 Trans: 03/15/18 1331 [id number] Interpreted by: KOKO DAMON MD Electronically signed by: Departure Communication (Admissions) 1402- Impression Primary Impression: History of hallucinations Additional Impression: Urinary tract infection Disposition: 01 HOME, SELF-CARE Condition: Stable Departure-Patient Inst. Decision time for Depature: 13:35 Referrals: FARHAT DAILY DO (PCP/Family) Primary Care Physician Patient Instructions: Urinary Tract Infection, Adult (DC) Add. Discharge Instructions: 1. Return to ER for any concerns 2. Follow-up with your doctor next week 3. Start the new antibiotics. Eat plenty of yogurt, utsp-dye-zutoscx probiotics given her history of C. difficile. Stop the Macrobid. 4. Stop the Lunesta and replace it with the temazepam at bedtime. All discharge instructions reviewed with patient and/or family. Voiced understanding. Scripts Temazepam (Restoril) 15 Mg Capsule 15 MG PO HS, #10 CAP Prov: ZIYAD BUNN FIXED [employer]ING [employer]CRAFT CREW CHIEF 03/15/18 Cefdinir (Cefdinir) 300 Mg Capsule 300 MG PO BID, #10 CAP Prov: ZIYAD BUNN FIXED [employer]ING [employer] CREW CHIEF 03/15/18 Copy Copies To 1: FARHAT DAILY DO; VÍCTOR ZARATE MD, PETER J FIXED [employer]ING [employer] CREW CHIEF Mar 15, 2018 12:57
[2018-03-15 13:02] LABS: INR 1.7 (0.8-1.4); PROTHROMBIN TIME PATIENT 19.6 SEC (12.2-14.7)
[2018-03-15] MEDS ORDERED: AMIT10TA6 (13:06)
[2018-03-15] MEDS ORDERED: WARF2.5T82 (13:06)
[2018-03-15 13:08] LABS: ALBUMIN 4.4 GM/DL (3.2-4.5); BILIRUBIN,TOTAL 1.7 MG/DL (0.1-1.0); CALCIUM 9.5 MG/DL (8.5-10.1); CREATININE SERUM 0.95 MG/DL (0.60-1.30); POTASSIUM 3.6 MMOL/L (3.6-5.0); TOTAL PROTEIN 7.4 GM/DL (6.4-8.2)
[2018-03-15 13:13] LABS: BILIRUBIN,URINE NEGATIVE (NEGATIVE); CLARITY,URINE CLEAR; COLOR,URINE YELLOW; GLUCOSE, URINE (UA) NEGATIVE (NEGATIVE); KETONES,URINE NEGATIVE (NEGATIVE); LEUKOCYTE ESTERASE ,URINE 2+ (NEGATIVE); NITRITE,URINE NEGATIVE (NEGATIVE); PH,URINE 5 (5-9); PROTEIN,URINE 3+ (NEGATIVE); UROBILINOGEN,URINE NORMAL (NORMAL)
[2018-03-15 13:23] LABS: BACTERIA,URINE NEGATIVE /HPF; RBC,URINE 25-50 /HPF; SQUAMOUS EPITHELIAL CELL,UR 0-2 /HPF
--- NOTE | 2018-03-15 13:24 | Diagnostic Imaging Report ---
PROCEDURE: CT head without contrast. TECHNIQUE: Multiple contiguous axial images were obtained through the brain without the use of intravenous contrast. INDICATION: Altered mental status. COMPARISON: No prior studies are available for comparison. FINDINGS: Ventricular size is normal. There is some prominent CSF space along the frontal convexities bilaterally, suggestive of bilateral frontal lobe atrophy. No sulcal effacement is seen. There is no midline shift. No acute intra-axial or extra-axial hemorrhage is seen. The cisterns are patent. The visualized paranasal sinuses are clear. IMPRESSION: Bilateral frontal lobe atrophy. No acute intracranial process is detected. Dictated by: Dictated on workstation # [id number]
[2018-03-15] MEDS: cefTRIAXone FOR IV USE 1,000 MG in NS (IVPB) 50 ML IV ONE ×2 (13:30→14:00)
--- NOTE | 2018-03-15 13:32 | Diagnostic Imaging Report ---
Indication: Altered mental status. Time of exam 1:49 PM Correlation is made with prior study of 01/10/2018. Heart size is stable. Cardiac pacer remains in place. There is no infiltrate or failure. No effusion or pneumothorax is seen. Impression: Stable chest. No acute feature is detected. Dictated by: Dictated on workstation # [id number]
[2018-03-15] MEDS ORDERED: CEFD300C3 PO ×2 (13:36→14:01)
[2018-03-15] MEDS ORDERED: TEMA15CA6 PO (14:01)
[2018-03-15 14:46] VITALS: BP 146/89
== END 2018-03-15 14:46 | disposition home or self-care (01) ==
LOC: EDUNIT# 11:50 → ER 11:51
DX: N39.0 Urinary tract infection, site not specified (principal); R41.82 Altered mental status, unspecified; I48.91 Unspecified atrial fibrillation; G47.30 Sleep apnea, unspecified; E78.00 Pure hypercholesterolemia, unspecified; I10 Essential (primary) hypertension; K21.9 Gastro-esophageal reflux disease without esophagitis; F41.9 Anxiety disorder, unspecified; F32.9 Major depressive disorder, single episode, unspecified; Z87.19 Personal history of other diseases of the digestive system; Z87.440 Personal history of urinary (tract) infections; Z87.59 Personal history of other complications of pregnancy, childbirth and the puerperium; Z91.14 Patient's other noncompliance with medication regimen; Z88.2 Allergy status to sulfonamides; Z88.8 Allergy status to other drugs, medicaments and biological substances; Z77.22 Contact with and (suspected) exposure to environmental tobacco smoke (acute) (chronic); Z90.710 Acquired absence of both cervix and uterus; Z95.0 Presence of cardiac pacemaker; Z90.89 Acquired absence of other organs
CPT/HCPCS: 36415; 70450; 71045; 80053; 81000; 85025; 85610; 87088; 93005; 96365

== ENCOUNTER → 2018-04-12 | Outpatient (CLI) | payer MEDICARE, OTHER ==
[~2018-04-12] MED LIST changes: +AMIT10TA6; +CEFD300C3 PO; +TEMA15CA6 PO; +WARF2.5T82
--- NOTE | 2018-04-12 13:00 | Diagnostic Imaging Report ---
INDICATION: Routine screening. COMPARISON is made with prior mammogram from 02/22/2017 and 11/15/2015. 2-D and 3-D bilateral screening mammography was performed with CAD. Both breasts are heterogeneously dense, limiting the sensitivity of mammography. There are benign calcifications bilaterally. Cardiac monitoring device. No dominant mass or malignant-appearing microcalcifications are seen. The axillae are unremarkable. IMPRESSION: BI-RADS category 2. No mammographic features suspicious for malignancy are identified. Dictated on workstation # [id number]
== END ==
LOC: RAD 10:29
PROVIDERS: ATTEND Family Medicine
DX: Z12.31 Encounter for screening mammogram for malignant neoplasm of breast (principal)
CPT/HCPCS: 77067

== ENCOUNTER 2018-04-17 12:32 | Inpatient (IN) | payer MEDICARE, OTHER ==
[~2018-04-17] VITALS: Ht 149.9 cm; Wt 67.4 kg
[~2018-04-17 12:32] MED LIST changes: -ACET-2267 PO; -IOHEXOL 350 MG/ML 100 ML (OMNIPAQUE 350) VIAL IV ONE; -NS 250 ML (IVPB) BAG IV ONE; -ONDA4TAB11 PO; -RECEIVED CONTRAST (Hold Metformin) IV SCH; -ROPI1TAB2 PO; -TEMA15CA PO
[2018-04-17] MEDS ORDERED: PATIENT MAY USE OWN MEDS, ALL PO SCH (17:30)
[2018-04-17] MEDS ORDERED: FUROSEMIDE 40 MG/4 ML INJ (LASIX) IVP NR (17:30)
[2018-04-17] MEDS ORDERED: ACETAMINOPHEN 325 MG TABLET PO PRN (18:00)
[2018-04-17] MEDS ORDERED: ONDANSETRON 4 MG/2 ML (SDV) Z0FRAN IVP PRN (18:00)
[2018-04-17 18:02] LABS: BILIRUBIN,URINE NEGATIVE (NEGATIVE); CLARITY,URINE CLEAR; COLOR,URINE YELLOW; GLUCOSE, URINE (UA) NEGATIVE (NEGATIVE); KETONES,URINE NEGATIVE (NEGATIVE); LEUKOCYTE ESTERASE ,URINE NEGATIVE (NEGATIVE); NITRITE,URINE NEGATIVE (NEGATIVE); PH,URINE 5 (5-9); PROTEIN,URINE 3+ (NEGATIVE); UROBILINOGEN,URINE 1 MG/DL (NORMAL)
[2018-04-17 18:10] LABS: RBC,URINE 0-2 /HPF; WBC,URINE 0-2 /HPF
--- NOTE | 2018-04-17 18:10 | History & Physicial ---
History of Present Illness History of Present Illness Reason for visit/HPI This is a 67 year old female with a history of atrial fibrillation and cardiomyopathy with an ejection fraction of 35-40%. She had a cholecystectomy in January with a laceration to her liver and postoperative bleeding. She has not felt good since that hospital stay with poor energy, dyspnea on exertion and edema. Over the past week her swelling has worsened and she presented to my office today with ascites and generalized anasarca. It was decided to admit her for IV lasix and further evaluation. Date of Admission Apr 17, 2018 at 17:30 Date Seen by a Provider: Apr 17, 2018 Time Seen by a Provider: 18:09 I consulted on this patient on 04/17/18 18:05 Attending Physician Jalyn Daily DO Admitting Physician Jalyn Daily DO Consult Allergies and Home Medications Allergies Coded Allergies: rosuvastatin (Unverified Allergy, Mild, 03/06/18) Sulfa (Sulfonamide Antibiotics) (Verified Allergy, Unknown, 03/06/18) Home Medications Alprazolam 0.5 Mg Tablet, 0.25 MG PO TID PRN for ANXIETY, (Reported) TAKES 1/2 OF A (0.5 MG) TABLET Atorvastatin Calcium 40 Mg Tablet, 40 MG PO HS, (Reported) Cefdinir 300 Mg Capsule, 300 MG PO BID Prescribed by: ZIYAD BUNN on 03/15/18 1401 Cranberry Extract 500 Mg Tablet, 500 MG PO DAILY, (Reported) Escitalopram Oxalate 20 Mg Tablet, 10 MG PO DAILY, (Reported) Eszopiclone 3 Mg Tablet, 3 MG PO HS, (Reported) Furosemide 20 Mg Tablet, 20 MG PO DAILY, (Reported) Metoprolol Succinate 25 Mg Tab.er.24h, 25 MG PO DAILY, (Reported) Nitrofurantoin Monohyd/M-Cryst 100 Mg Capsule, 1 TAB PO BID Prescribed by: YUNIER TEAGUE on 03/13/18929 Pantoprazole Sodium 40 Mg Tablet.dr, 40 MG PO BID, (Reported) Phenazopyridine HCl 100 Mg Tablet, 100 MG PO TID PRN for SPASMS Prescribed by: YUNIER TEAGUE on 03/13/18929 Spironolactone 25 Mg Tablet, 25 MG PO DAILY, (Reported) Temazepam 15 Mg Capsule, 15 MG PO HS Prescribed by: ZIYAD BUNN on 03/15/18 1401 Patient Home Medication List Home Medication List Reviewed: Yes Past Ftyxwpu-Bxusch-Gzgyxi Hx Patient Social History 2nd Hand Smoke Exposure: Yes Recent Hopitalizations: Yes (JANUARY 2018-GALLBLADDER X 1 WEEK) Immunizations Up To Date Tetanus Booster (TDap): Less than 5yrs Pediatric: No Date of Influenza Vaccine: Apr 17, 2017 Seasonal Allergies Seasonal Allergies: No Surgeries Yes (HYST,BREAST REDUCTION,OOPH.,RECTOCELE) Cardiac, Gallbladder, Hysterectomy, Oophorectomy, Pacemaker, Tonsillectomy Respiratory Yes Currently Using CPAP: Yes Cardiovascular Yes Atrial Fibrillation, High Cholesterol, Hypertension Neurological No Reproductive System Hx Reproductive Disorders: No (X1 MISCARRIAGE) Sexually Transmitted Disease: No HIV/AIDS: No LAWN SPECIALIST History: Hysterectomy Genitourinary Yes UTI-Chronic Gastrointestinal Yes (HX C-DIFF) Gastroesophageal Reflux, Diverticulosis Musculoskeletal Yes (GENERALIZED WEAKNESS-SINCE SEPSIS JANUARY 2018) Endocrine History of Endocrine Disorders: No HEENT Loss of Vision: Bilateral Hearing Impairment: Denies Cancer No Psychosocial History of Psychiatric Problem: Yes Behavioral Health Disorders: Anxiety, Depression Integumentary History of Skin or Integumenta: No Blood Transfusions History of Blood Disorders: No Adverse Reaction to a Blood Tr: No (HAS HAD BLOOD WITH NO REACTIION) Family Medical History Significant Family History: Heart Disease, CAD Under 55 Years Old Review of Systems Constitutional: malaise, weakness EENTM: No see HPI, No no symptoms reported, No ear discharge, No hearing loss, No ear pain, No blurred vision, No double vision, No eye pain, No tearing, No vision loss, No dental problems, No hoarseness, No mouth pain, No mouth swelling , No epistaxis, No nose congestion, No nose pain, No throat pain, No throat swelling, No other Respiratory: dyspnea on exertion, short of breath Cardiovascular: edema Gastrointestinal: other (abdominal bloating and distention) Genitourinary: No no symptoms reported, No see HPI, No decreased output, No discharge, No dysuria, No frequency, No hematuria, No hesitancy, No incontinence , No nocturia, No pain, No other Musculoskeletal: muscle weakness Skin: No no symptoms reported, No see HPI, No change in color, No change in hair/nails, No dryness, No hx of skin cancer, No lesions, No lumps, No pruritus , No rash, No other Psychiatric/Neurological: Anxiety, Weakness Physical Exam Vital Signs Capillary Refill : Height, Weight, BMI Height: 4'11.00" Weight: 143lbs. 0.0oz. 64.075915za; 28.7 BMI Method:Stated General Appearance: Mild Distress HEENT: Normal ENT Inspection Neck: Supple Respiratory: Crackles, Decreased Breath Sounds Cardiovascular: Systolic Murmur, Gallop/S4, Irregularly Irregular Gastrointestinal: Normal Bowel Sounds, Distended, Other (ascites) Rectal: Deferred Genital/Rectal: No Normal Genital Exam, No Normal Rectal Exam, No Normal Rectal Tone, No Normal Vaginal Exam, No Heme Negative Stool, No Blood at Uretheral Meatus, No Decreased Rectal Tone, No Heme Positive Stool, No Tenderness, No Other Back: No CVA Tenderness Extremity: Non Tender, No Calf Tenderness, Pedal Edema, Swelling Neurologic/Psychiatric: Alert, Oriented x3, Motor Weakness Skin: Warm/Dry Comments Laboratory Tests 04/17/18 17:45: Urine Color YELLOW, Urine Clarity CLEAR, Urine pH 5, Urine Specific Gordon 1.010L, Urine Protein 3+H, Urine Glucose (UA) NEGATIVE, Urine Ketones NEGATIVE, Urine Nitrite NEGATIVE, Urine Bilirubin NEGATIVE, Urine Urobilinogen 1, Urine Leukocyte Esterase NEGATIVE, Urine RBC (Auto) 1+H, Urine RBC 0-2, Urine WBC 0-2 , Urine Squamous Epithelial Cells 2-5, Urine Crystals NONE, Urine Bacteria NONE , Urine Casts NONE, Urine Mucus NEGATIVE, Urine Culture Indicated NO Assessment/Plan Assessment and Plan 1. Acute Abdominal Ascites--admit and diurese with spironolactone and IV lasix and monitor, will try to defer abdominal paracentesis due to high risk of peritonitis 2. Anasarca--diurese and monitor, albumin if needed pending lab 3. Acute on Chronic Combined Diastolic/Systolic CHF--admit and check BNP, diureses, consult cardiology 4. Chronic Atrial Fibrillation--monitor on telemetry, restart coumadin and metoprolol 5. GERD--restart Protonix Admission Diagnosis Admission Status: Inpatient Order (span 2 midnights) Reason for Inpatient Admission: Will require IV lasix for diuresis JALYN DAILY DO Apr 17, 2018 18:10
[2018-04-17] MEDS: rOPINIRole 1 MG (REQUIP) TABLET PO SCH (18:19)
[2018-04-17 18:26] LABS: BASOPHILS % (AUTO) 1 % (0-10); EOSINOPHILS % (AUTO) 1 % (0-10); HEMATOCRIT 33 % (35-52); HEMOGLOBIN 10.3 G/DL (11.5-16.0); LYMPHOCYTES # (AUTO) 2.5 X 10^3 (1.0-4.0); LYMPHOCYTES % (AUTO) 29 % (12-44); MEAN CORPUSCULAR HEMOGLOBIN 22 PG (25-34); MEAN CORPUSCULAR HGB CONC 31 G/DL (32-36); MEAN CORPUSCULAR VOLUME 72 FL (80-99); MEAN PLATELET VOLUME 9.8 FL (7.4-10.4); MONOCYTES # (AUTO) 0.6 X 10^3 (0.0-1.0); MONOCYTES % (AUTO) 7 % (0-12); NEUTROPHILS # (AUTO) 5.4 X 10^3 (1.8-7.8); NEUTROPHILS % (AUTO) 63 % (42-75); PLATELET COUNT 370 10^3/uL (130-400); RED BLOOD COUNT 4.59 10^6/uL (4.35-5.85); RED CELL DISTRIBUTION WIDTH 20.1 % (10.0-14.5); WHITE BLOOD COUNT 8.6 10^3/uL (4.3-11.0)
[2018-04-17 18:28] VITALS: BP 160/62
[2018-04-17 18:44] LABS: PROTHROMBIN TIME PATIENT 48.3 SEC (12.2-14.7)
[2018-04-17 18:45] LABS: INR 5.3 (0.8-1.4)
[2018-04-17 18:46] LABS: ALBUMIN 4.2 GM/DL (3.2-4.5); BILIRUBIN,TOTAL 2.5 MG/DL (0.1-1.0); CREATININE SERUM 1.03 MG/DL (0.60-1.30); POTASSIUM 2.8 MMOL/L (3.6-5.0); TOTAL PROTEIN 7.1 GM/DL (6.4-8.2)
[2018-04-17] MEDS ORDERED: FLU QUADRIvalent (5+ YOA) 2018-2019 (AFLURIA) 0.5 ML IM ONE (19:00)
--- OUTSIDE RECORDS SUMMARY | 2018-04-17 19:29 | XMS REPORT | Clinical Summary ---
Author Author [facility] Organization [facility] Address Unknown Phone Unavailable Care Team Providers Care Hand Shaker Name Role Phone PCP Unavailable Allergies Not on File Current Medications Not on file Active Problems Not on file Social History Tobacco Use Types Packs/Day Years Used Date Never Assessed Sex Assigned at Date Recorded Not on file Last Filed Vital Signs Not on file Plan of Treatment Not on file Results Not on filefrom Last 3 Months
[2018-04-17 19:30] VITALS: BP 146/69
--- OUTSIDE RECORDS SUMMARY | 2018-04-17 19:30 | XMS REPORT | Encounter Summary ---
Author Author [facility] Organization [facility] Address Unknown Phone Unavailable Care Team Providers Care Camera Repairer Name Role Phone Nelia Jules MD Unavailable Aubrey Ball MD PCP Jori Gallegos MD [address] RN Unavailable Unavailable Clarissa Minor ACTIVITY LEADER Unavailable Reason for Visit * Reason Comments Lab Results INR 2.6 , Dr Hewitt manages Encounter Details Date Type Department Care Team Description 04/01/2018 [facility] Alix Blackwood RN Lab Results (INR 2.6 , [address] Hewitt manages) [place] [address] Social History Tobacco Use Types [...] Progress Notes * Alix Blackwood RN - 04/01/2018 11:33 AM CDT INR 2.[address] Hewitt manages in this encounter Plan of Treatment Not on fileas of this encounter Procedures Procedure Name Priority Date/Time Associated Diagnosis Comments PROTIME INR (PT) Routine 04/01/2018 Results for this 12:00 AM CDT procedure are in the results section. in this encounter Results * PROTIME INR (PT) (04/01/2018) INR 2.6Comment: Dr. Hewitt manages OTHER OUTSIDE LAB Specimen Blood - Blood Narrative Performed At Performing Organization Address City/State/Zipcode Phone Number OTHER OUTSIDE LAB in this encounter Visit Diagnoses Not on filein this encounter
--- OUTSIDE RECORDS SUMMARY | 2018-04-17 19:30 | XMS REPORT | Clinical Summary ---
Author Author [facility] Organization [facility] Address Unknown Phone Unavailable Care Team Providers Care Stock Patcher Name Role Phone Nelia Jules MD Unavailable Aubrey Ball MD PCP Jori Gallegos MD [address] RN Unavailable Unavailable Clarissa Minor CORPORATE LEGAL MANAGER Unavailable Source Comments Some departments are not documenting in the electronic medical record. If you do not see the information that you expected, contact Release of Information in the Health Information Management department at [phone] for further assistance in locating additional records.[facility] Allergies Active Allergy Reactions Severity Noted [...] showed no obstructive disease. She has a [id number] score of 2--Female, HTN. Please refer to [...] the last 2-[address] Hewitt, in [place], did a CARDIAC CATH 08/2013 and her [...] Atrial fibrillation (HCC) 07/07/2014 Overview: 05/13/14: VICKIE: [facility]: EF 50% Echogenic density was [...] Ventricular tachycardia (HCC) 06/15/2014 Overview: 08/20/13: Cath: [facility]: EF 60% dominant circumflex system [...] poorly Atrial flutter (HCC) 11/07/2010 Overview: SEI [id number]/11 CHADS2=one (HTN) Fall 2010-no flutteror AF-OK to DC Pradaxa L ast Assessment & Plan: No recurrence since ablation. 48 hour holter on 08/16/13 was negative for any atrial arrhythmias. Continues to be on daily aspirin therapy. Hyperlipidemia 09/22/2010 Last Assessment & Plan: Continues to be managed by Dr. Hewitt's office. Atypical chest pain Overview: 07/2007: [facility] @ [facility]: no significant CAD. 20% mid circ. EF-wnl. RCA-spasm during cath. 05/18/2010: [facility] @ [facility]: No obstructive CAD, normal LV size/function. EF 60% HTN (hypertension) Last Assessment & Plan: Well controlled on current therapy. Palpitations Overview: 07/2007 - Complete echocardiogram: Ejection fraction 60%. Mild left ventricular hypertrophy. Trace MR. Mild TR. 30 day event monitor showed Atrial Tach at 140-150bpm for 2-4 sec.. Toprol 25mg XL qd. 08/18/13: MPI: [facility]: EF 59%. Fair exercise tolerance. Frequent VPDs, ventricular bigeminy and ventricular couplets noted at rest and during recovery phase. Non diagnostic ECG changes with exercise. Reversible ischemia involving the whole anterior wall and anterior apex. 01/06/14: Echo: [facility]: EF 60% bradycardia in 40's for procedure. Left atrial dilatation. Moderate mitral regurgitation. Moderate tricuspid regurgitation. Estimated PAP of 40 mmHg Resolved Problems Problem Noted Date Resolved Date Cardiac pacemaker in situ 11/20/2016 11/22/2016 Encounters Date Type Specialty Care Team Description 04/01/2018 [facility] Alix Blackwood RN Lab Results ( INR 2.6 , Dr Hewitt manages) 03/28/2018 [facility] Cardiology Jori Gallegos MD Encounter 03/04/2018 Telephone Cardiology Anh Lopez Remote Monitoring Transferred (Released from [employer]) 03/02/2018 Telephone Cardiology Minerva Hernandez RN Remote Monitoring Transferred (To [facility] in [place], [place]) 02/25/2018 Hospital Cardiology Jori Gallegos MD Encounter 02/18/2018 Anticoagulation Cardiology Leilani Amaral RN Anticoagulation (INR 2.7 - Dr. Hewitt's office manages INR) 02/06/2018 Documentation Cardiology Ellen Springer RN Results ( INR 2.7 -- Dr. Hewitt's office manages ) 01/25/2018 Hospital Cardiology Jori Gallegos MD Encounter 01/21/2018 [facility] Alix Blackwood RN Lab Results ( INR 2.5, manages) from Last 3 Months Family History Medical History Relation Name Comments Coronary Artery Disease Brother Coronary Artery Disease Brother Heart Attack Brother Arrhythmia Brother atrial flutter Coronary Artery Disease Father Heart Attack Father Stroke Mother Relation Name Status Comments Brother Alive Brother Alive Brother Brother Father [place] (Age 47) Mother Social History Tobacco Use [...] (1 of 2 - PCV13) INFLUENZA VACCINE 02/06/2018 Procedures Procedure Name Priority Date/Time Associated Diagnosis Comments PROTIME INR (PT) Routine 04/01/2018 Results for this 12:00 AM CDT procedure are in the results section. DEVICE EVALUATION - Routine 03/30/2018 Palpitations Results for this REMOTE ILR 1:39 PM CDT Cardiac device in situ procedure are in the results section. DEVICE EVALUATION - Routine 02/26/2018 Palpitations Results for this REMOTE ILR 2:16 PM CDT Cardiac device in situ procedure are in the results section. PROTIME INR (PT) Routine 02/18/2018 Results for this 12:00 AM CDT procedure are in the results section. DEVICE EVALUATION - Routine 01/28/2018 Palpitations Results for this REMOTE ILR 1:27 PM CDT Cardiac device in situ procedure are in the results section. PROTIME INR (PT) Routine 01/21/2018 Results for this 12:00 AM CDT procedure are in the results section. from Last 3 Months Results * PROTIME INR (PT) (04/01/2018) Only the most recent of 3 results within the time period is included. INR 2.6Comment: Dr. Hewitt manages OTHER OUTSIDE LAB Specimen Blood - Blood Narrative Performed At Performing Organization Address City/State/Zipcode Phone Number OTHER OUTSIDE LAB * DEVICE EVALUATION - REMOTE ILR (03/30/2018 1:39 PM) ILR History of Afib Yes OTHER OUTSIDE LAB Generator Implnat Date 11/09/16 OTHER OUTSIDE LAB Generator Model # [id number] Lillian NOVAK OTHER OUTSIDE LAB Device Implanted By Dr. Lluvia Hewitt @ [facility] OTHER OUTSIDE LAB in [place], [place] Generator Serial # [id number] OTHER OUTSIDE LAB EP Device Followed by [...] OTHER OUTSIDE LAB Duration Remote Monitor Serial# [id number] OTHER OUTSIDE LAB Generator Admissions Supervisor [employer] OTHER OUTSIDE LAB Generator Investigational No OTHER OUTSIDE LAB Wireless Generator No OTHER OUTSIDE LAB Device Type DDD-PM OTHER OUTSIDE LAB EP Device Followed By LONNIE OTHER OUTSIDE LAB Device [facility] OTHER OUTSIDE LAB Transmitter Compatible On AntiCoag Date 2,011 OTHER OUTSIDE LAB Known Diagnosed AFib Yes OTHER OUTSIDE LAB On Anticoagulation Yes OTHER OUTSIDE LAB MIGUEL/EOL Indicator 2.83V OTHER OUTSIDE LAB Atrial Lead Admissions Supervisor [employer] OTHER OUTSIDE LAB Atrial Lead Model # 5076 [employer] OTHER OUTSIDE LAB Atrial Lead Serial # [id number] OTHER OUTSIDE LAB Atrial Lead Implant Date 11/09/16 OTHER OUTSIDE LAB RV Lead Admissions Supervisor [employer] OTHER OUTSIDE LAB RV Lead Model # 4076 capsurefix OTHER OUTSIDE LAB RV Lead Serial # [id number] OTHER OUTSIDE LAB RV Lead Implant Date [...] OTHER OUTSIDE LAB Interrogation ILR Current Monitoring 03/28/2018 to 04/28/2018 OTHER OUTSIDE LAB Period ILR Date of Last Daily 03/30/2018 OTHER OUTSIDE LAB Connection ILR Battery Status [...] as 2,770 OTHER OUTSIDE LAB of ILR AF Duration all episodes OTHER OUTSIDE LAB ILR Percent Time in AT/AF 0.0% OTHER OUTSIDE LAB Events Since Last Interrogation ILR Percent Time in AT/AF 1.9% OTHER OUTSIDE LAB Lifetime of Events as of ILR Presenting ECG Strip 03/30/2018 @ 00:04:50 shows SR OTHER OUTSIDE LAB in the 60's ILR Lifetime Events as of 03/30/2018 OTHER OUTSIDE LAB Datetion Narrative Performed At OTHER OUTSIDE LAB AF Anticoagulated [03/30/2018 1:40:53 PM - SARAH MAGALLON] Presenting EGM on 03/30/2018 @ 00:04:50 shows SR in the 60's. Summary report received and reviewed. No new event to report. Results routed to Dr. Gallegos for signature and review. Performing Organization Address City/State/Zipcode Phone Number OTHER OUTSIDE LAB * DEVICE EVALUATION - REMOTE ILR (02/26/2018 2:16 PM) ILR History of Afib Yes OTHER OUTSIDE LAB Generator Implnat Date 11/09/16 OTHER OUTSIDE LAB Generator Model # [id number] [employer]vis[address] DR NOVAK OTHER OUTSIDE LAB Device Implanted By Dr. Lluvia Hewitt @ [facility] [employer] OTHER OUTSIDE LAB in [place], [place] Generator Serial # [id number] OTHER OUTSIDE LAB EP Device Followed by [...] OTHER OUTSIDE LAB Duration Remote Monitor Serial# [id number] OTHER OUTSIDE LAB Generator Admissions Supervisor [employer] OTHER OUTSIDE LAB Generator Investigational No OTHER OUTSIDE LAB Wireless Generator No OTHER OUTSIDE LAB Device Type DDD-PM OTHER OUTSIDE LAB EP Device Followed By LONNIE OTHER OUTSIDE LAB Device [employer] [facility] OTHER OUTSIDE LAB Transmitter Compatible On AntiCoag Date 2,011 OTHER OUTSIDE LAB Known Diagnosed AFib Yes OTHER OUTSIDE LAB On Anticoagulation Yes OTHER OUTSIDE LAB MIGUEL/EOL Indicator 2.83V OTHER OUTSIDE LAB Atrial Lead Admissions Supervisor [employer] OTHER OUTSIDE LAB Atrial Lead Model # 5076 [employer] OTHER OUTSIDE LAB Atrial Lead Serial # [id number] OTHER OUTSIDE LAB Atrial Lead Implant Date 11/09/16 OTHER OUTSIDE LAB RV Lead Admissions Supervisor [employer] OTHER OUTSIDE LAB RV Lead Model # 4076 capsurefix OTHER OUTSIDE LAB RV Lead Serial # [id number] OTHER OUTSIDE LAB RV Lead Implant Date [...] shows SR OTHER OUTSIDE LAB in the 's with multifocal PVCs ILR Lifetime Events as [...] City/State/Zipcode Phone Number OTHER OUTSIDE LAB * DEVICE EVALUATION - REMOTE ILR (01/28/2018 1:27 PM) ILR History of Afib Yes OTHER OUTSIDE LAB Generator Implnat Date 11/09/16 OTHER OUTSIDE LAB Generator Model # [id number] Advis[address] DR NOVAK OTHER OUTSIDE LAB Device Implanted By Dr. Lluvia Hewitt @ [facility] [employer] OTHER OUTSIDE LAB in [place], [place] Generator Serial # [id number] OTHER OUTSIDE LAB EP Device Followed by [...] OTHER OUTSIDE LAB Duration Remote Monitor Serial# [id number] OTHER OUTSIDE LAB Generator Admissions Supervisor [employer] OTHER OUTSIDE LAB Generator Investigational No OTHER OUTSIDE LAB Wireless Generator No OTHER OUTSIDE LAB Device Type DDD-PM OTHER OUTSIDE LAB EP Device Followed By LONNIE OTHER OUTSIDE LAB Device [employer] OTHER OUTSIDE LAB Transmitter Compatible On AntiCoag Date 2,011 OTHER OUTSIDE LAB Known Diagnosed AFib Yes OTHER OUTSIDE LAB On Anticoagulation Yes OTHER OUTSIDE LAB MIGUEL/EOL Indicator 2.83V OTHER OUTSIDE LAB Atrial Lead Admissions Supervisor [employer] OTHER OUTSIDE LAB Atrial Lead Model # 5076 [employer] OTHER OUTSIDE LAB Atrial Lead Serial # [id number] OTHER OUTSIDE LAB Atrial Lead Implant Date 11/09/16 OTHER OUTSIDE LAB RV Lead Admissions Supervisor [employer] OTHER OUTSIDE LAB RV Lead Model # 4076 capsurefix OTHER OUTSIDE LAB RV Lead Serial # [id number] OTHER OUTSIDE LAB RV Lead Implant Date [...] Address City/State/Zipcode Phone Number OTHER OUTSIDE LAB from Last 3 Months
--- OUTSIDE RECORDS SUMMARY | 2018-04-17 19:30 | XMS REPORT | Encounter Summary ---
Author Author [facility] Organization [facility] Address Unknown Phone Unavailable Care Team Providers Care Health Screener Name Role Phone Nelia Jules MD Unavailable Aubrey Ball MD PCP Jori Gallegos MD [address] RN Unavailable Unavailable Clarissa Minor TELECOMMUNICATIONS PROFESSIONAL Unavailable Encounter Details Date Type Department Care Team Description 03/28/2018 [facility] Cardiology Jori Gallegos MD Encounter Remote Device Check [address] [facility] [phone] [address] [place] [address] [phone] Social History Tobacco Use Types Packs/Day Years [...] Procedure Name Priority Date/Time Associated Diagnosis Comments DEVICE EVALUATION - Routine 03/30/2018 Palpitations Results for this REMOTE ILR 1:39 PM CDT Cardiac device in situ procedure are in the results section. in this encounter Results * DEVICE EVALUATION - REMOTE ILR (03/30/2018 1:39 PM) ILR History of Afib Yes OTHER OUTSIDE LAB Generator Implnat Date 11/09/16 OTHER OUTSIDE LAB Generator Model # [id number] Lillian NOVAK OTHER OUTSIDE LAB Device Implanted By Dr. Lluvia Hewitt @ [facility] [employer] OTHER OUTSIDE LAB in [place], [place] Generator Serial # [id number] OTHER OUTSIDE LAB EP Device Followed by [...] OTHER OUTSIDE LAB Duration Remote Monitor Serial# [id number] OTHER OUTSIDE LAB Generator Bait Painter [employer] OTHER OUTSIDE LAB Generator Investigational No OTHER OUTSIDE LAB Wireless Generator No OTHER OUTSIDE LAB Device Type DDD-PM OTHER OUTSIDE LAB EP Device Followed By MAC OTHER OUTSIDE LAB Device [place] [facility] OTHER OUTSIDE LAB Transmitter Compatible On AntiCoag Date 2,011 OTHER OUTSIDE LAB Known Diagnosed AFib Yes OTHER OUTSIDE LAB On Anticoagulation Yes OTHER OUTSIDE LAB MIGUEL/EOL Indicator 2.83V OTHER OUTSIDE LAB Atrial Lead Bait Painter [employer] OTHER OUTSIDE LAB Atrial Lead Model # 5076 [employer] OTHER OUTSIDE LAB Atrial Lead Serial # [id number] OTHER OUTSIDE LAB Atrial Lead Implant Date 11/09/16 OTHER OUTSIDE LAB RV Lead Bait Painter [employer] OTHER OUTSIDE LAB RV Lead Model # 4076 capsurefix OTHER OUTSIDE LAB RV Lead Serial # [id number] OTHER OUTSIDE LAB RV Lead Implant Date [...]
--- OUTSIDE RECORDS SUMMARY | 2018-04-17 19:31 | XMS REPORT | Encounter Summary ---
Author Author [facility] Organization [facility] Address Unknown Phone Unavailable Care Team Providers Care Hogshead Mat Inspector Name Role Phone Nelia Jules MD Unavailable Aubrey Ball MD PCP Jori Gallegos MD [address] RN Unavailable Unavailable Clarissa Minor CORK SLABS SAWYER Unavailable Reason for Visit * Reason Comments Results INR 2.7 -- Dr. Hewitt's office manages Encounter Details Date Type Department Care Team Description 02/06/2018 [facility] Ellen Springer RN Results (INR 2.7 -- Dr. Elan Nickerson [place] [address] Marcelina's office manages ) [facility] [address] [id number] [place] [address] Social History Tobacco Use Types [...]
--- OUTSIDE RECORDS SUMMARY | 2018-04-17 19:31 | XMS REPORT | Encounter Summary ---
Author Author [facility] Organization [facility] Address Unknown Phone Unavailable Care Team Providers Care Analytical Scientist Name Role Phone Nelia Jules MD Unavailable Aubrey Ball MD PCP Jori Gallegos MD [address] RN Unavailable Unavailable Clarissa Minor WARDROBE STYLIST Unavailable Reason for Visit * Reason Comments Remote Monitoring Released from [employer] Transferred Encounter Details Date Type Department Care Team Description 03/04/2018 Telephone [facility] Cardiology Anh Lopez Remote Monitoring Remote Device Check Transferred (Released [phone] from [employer]) Social History Tobacco Use Types Packs/Day Years [...]
--- OUTSIDE RECORDS SUMMARY | 2018-04-17 19:31 | XMS REPORT | Encounter Summary ---
Author Author [facility] Organization [facility] Address Unknown Phone Unavailable Care Team Providers Care Nurses' Association Executive Director Name Role Phone Nelia Jules MD Unavailable Aubrey Ball MD PCP Jori Gallegos MD [address] RN Unavailable Unavailable Clarissa Minor DRILL RIG OPERATOR HELPER Unavailable Reason for Visit * Reason Comments Lab Results INR 2.5, manages Encounter Details Date Type Department Care Team Description 01/21/2018 [facility]ation [facility] Alxi Blackwood RN Lab Results (INR 2.5, [address] manages) [place] [address] Social History Tobacco Use Types [...] Associated Diagnosis Comments PROTIME INR (PT) Routine 01/21/2018 Results for [...]
--- OUTSIDE RECORDS SUMMARY | 2018-04-17 19:31 | XMS REPORT | Encounter Summary ---
Author Author [facility] Organization [facility] Address Unknown Phone Unavailable Care Team Providers Care Head Golf Coach Name Role Phone Nelia Jules MD Unavailable Aubrey Ball MD PCP Jori Gallegos MD 100 Tati Alejandro RN Unavailable Unavailable Clarissa Minor ETHYLENE COMPRESSOR OPERATOR Unavailable Reason for Visit * Reason Comments Anticoagulation INR 2.7 - Dr. Hewitt's office manages INR Encounter Details Date Type Department Care Team Description 02/18/2018 Anticoagulation [facility] Leilani Amaral RN Anticoagulation (INR 2.7 [address] - [place] [address] manages INR) [phone] Social History Tobacco Use Types Packs/Day Years [...] Associated Diagnosis Comments PROTIME INR (PT) Routine 02/18/2018 Results for [...]
--- OUTSIDE RECORDS SUMMARY | 2018-04-17 19:31 | XMS REPORT | Encounter Summary ---
Author Author [facility] Organization [facility] Address Unknown Phone Unavailable Care Team Providers Care Director Content Marketing Name Role Phone Nelia Jules MD Unavailable Aubrey Ball MD PCP Jori Gallegos MD 100 Tati Alejandro RN Unavailable Unavailable Clarissa Minor [employer] Unavailable Reason for Visit * Reason Comments Remote Monitoring To [facility] in [place], [place] Transferred Encounter Details Date Type Department Care Team Description 03/02/2018 Telephone [facility] Minerva Hernandez RN Remote Monitoring [place] [address] Transferred (To [address] [facility] [place] [address] OR) [phone] Social History Tobacco Use Types Packs/Day Years [...] request to transfer [facility] service to in [place], [place], which is where her primary edge glue machine tender Dr. Hewitt is. Carelink was released. Dr. Hewitt also manages her INR. in this encounter Plan of Treatment Not on fileas of this encounter Visit Diagnoses Not on filein this encounter
--- OUTSIDE RECORDS SUMMARY | 2018-04-17 19:31 | XMS REPORT | Encounter Summary ---
Author Author [facility] Organization [facility] Address Unknown Phone Unavailable Care Team Providers Care Research Agricultural Engineer Name Role Phone Nelia Jules MD Unavailable Aubrey Ball MD PCP Jori Gallegos MD 100 Tati Alejandro RN Unavailable Unavailable Clarissa Minor TRAILER CHIEF Unavailable Encounter Details Date Type Department Care Team Description 02/25/2018 [facility] Cardiology Jori Gallegos MD Encounter Remote Device Check [address] [facility] [phone] [address] [place] [address] [phone] Social History Tobacco Use Types Packs/Day Years [...] Associated Diagnosis Comments DEVICE EVALUATION - Routine 02/26/2018 Palpitations Results [...] @ [facility] OTHER OUTSIDE LAB in [place], [place] Generator Serial # [id number] OTHER OUTSIDE LAB EP Device Followed by [...] OTHER OUTSIDE LAB Duration Remote Monitor Serial# [id number] OTHER OUTSIDE LAB Generator Cocoa Bean Cleaner Medtronic OTHER OUTSIDE LAB Generator Investigational No OTHER OUTSIDE LAB Wireless Generator No OTHER OUTSIDE LAB Device Type DDD-PM OTHER OUTSIDE LAB EP Device Followed By MAC OTHER OUTSIDE LAB Device [facility]erv[facility] OTHER OUTSIDE LAB Transmitter Compatible On AntiCoag Date 2,011 OTHER OUTSIDE LAB Known Diagnosed AFib Yes OTHER OUTSIDE LAB On Anticoagulation Yes OTHER OUTSIDE LAB MIGUEL/EOL Indicator 2.83V OTHER OUTSIDE LAB Atrial Lead Cocoa Bean Cleaner [employer] OTHER OUTSIDE LAB Atrial Lead Model # 5076 CapSureFix [employer] OTHER OUTSIDE LAB Atrial Lead Serial # [id number] OTHER OUTSIDE LAB Atrial Lead Implant Date 11/09/16 OTHER OUTSIDE LAB RV Lead Cocoa Bean Cleaner Medtronic OTHER OUTSIDE LAB RV Lead Model # 4076 capsurefix OTHER OUTSIDE LAB RV Lead Serial # [id number] OTHER OUTSIDE LAB RV Lead Implant Date [...]
--- OUTSIDE RECORDS SUMMARY | 2018-04-17 19:31 | XMS REPORT | Encounter Summary ---
Author Author [facility] Organization [facility] Address Unknown Phone Unavailable Care Team Providers Care Warehouse Operator Name Role Phone Nelia Jules MD Unavailable Aubrey Ball MD PCP Jori Gallegos MD 100 Tati Alejandro RN Unavailable Unavailable Clarissa Minor INSPECTOR FILTERS Unavailable Encounter Details Date Type Department Care Team Description 01/25/2018 [facility] Cardiology Jori Gallegos MD Encounter Remote Device Check [address] [facility] [phone] [address] [place] [address] [phone] Social History Tobacco Use Types Packs/Day Years [...] Associated Diagnosis Comments DEVICE EVALUATION - Routine 01/28/2018 Palpitations Results [...] @ [facility] OTHER OUTSIDE LAB in [place], [place] Generator Serial # [id number] OTHER OUTSIDE LAB EP Device Followed by [...] OTHER OUTSIDE LAB Duration Remote Monitor Serial# [id number] OTHER OUTSIDE LAB Generator Shadow Graph Weight Operator Medtronic OTHER OUTSIDE LAB Generator Investigational No OTHER OUTSIDE LAB Wireless Generator No OTHER OUTSIDE LAB Device Type DDD-PM OTHER OUTSIDE LAB EP Device Followed By MAC OTHER OUTSIDE LAB Device [place] [facility] OTHER OUTSIDE LAB Transmitter Compatible On AntiCoag Date 2,011 OTHER OUTSIDE LAB Known Diagnosed AFib Yes OTHER OUTSIDE LAB On Anticoagulation Yes OTHER OUTSIDE LAB MIGUEL/EOL Indicator 2.83V OTHER OUTSIDE LAB Atrial Lead Shadow Graph Weight Operator Medtronic OTHER OUTSIDE LAB Atrial Lead Model # 5076 CapSureFix Novus OTHER OUTSIDE LAB Atrial Lead Serial # [id number] OTHER OUTSIDE LAB Atrial Lead Implant Date 11/09/16 OTHER OUTSIDE LAB RV Lead Shadow Graph Weight Operator Medtronic OTHER OUTSIDE LAB RV Lead Model # 4076 capsurefix OTHER OUTSIDE LAB RV Lead Serial # [id number] OTHER OUTSIDE LAB RV Lead Implant Date [...]
[2018-04-17] MEDS: ESCITALOPRAM 20 MG (LEXAPRO) TABLET NON-FORMULARY PO SCH (20:44)
[2018-04-17] MEDS: PANTOPRAZOLE 40 MG (PROTONIX) TAB PO SCH (20:44)
[2018-04-17] MEDS ORDERED: PANTOPRAZOLE 40 MG (PROTONIX) TAB PO SCH (21:00)
[2018-04-17] MEDS ORDERED: NON-FORMULARY MEDICATION 1 EA EA PO SCH (21:00)
[2018-04-18 00:09] VITALS: BP 144/64
[2018-04-18 04:28] VITALS: BP 143/87
[2018-04-18] MEDS: PANTOPRAZOLE 40 MG (PROTONIX) TAB PO SCH ×2 (05:48→19:54)
[2018-04-18] MEDS: FUROSEMIDE 40 MG/4 ML INJ (LASIX) IVP SCH ×2 (05:51→17:27)
[2018-04-18 06:18] LABS: INR 3.8 (0.8-1.4); PROTHROMBIN TIME PATIENT 37.4 SEC (12.2-14.7)
[2018-04-18 06:20] LABS: BUN/CREATININE RATIO 16; CALCIUM 9.2 MG/DL (8.5-10.1); CARBON DIOXIDE 23 MMOL/L (21-32); CHLORIDE 97 MMOL/L (98-107); CREATININE SERUM 0.93 MG/DL (0.60-1.30); GFR ESTIMATED > 60; GLUCOSE 108 MG/DL (70-105); POTASSIUM 2.9 MMOL/L (3.6-5.0); SODIUM 138 MMOL/L (135-145)
--- NOTE | 2018-04-18 07:37 | Consultation-Cardiology ---
HPI-Cardiology Cardiology Consultation Date of Consultation 04/18/18 Date of Admission Time Seen by Provider: 07:30 Indication: Estelita HPI 67 years old lady with paroxysmal atrial flutter ablation, coronary artery disease and hypertension. Patient was having some increasing peripheral edema that worsened significantly over the past 2-3 weeks. She noticed increasing abdominal girth and pedal edema which was worse on the left. Has been having increasing shortness of breath and abdominal distention in addition to nausea and dry heaves. Denied any diarrhea. No fever or chills. No palpitation. Has been compliant with her medications. Patient was seen by Dr. Daily yesterday and admitted directly to the hospital, started on diuretics, reporting some improvement this morning Home Medications & Allergies Allergies: Coded Allergies: rosuvastatin (Unverified Allergy, Mild, 03/06/18) Sulfa (Sulfonamide Antibiotics) (Verified Allergy, Unknown, 03/06/18) Home Medication List Reviewed: Yes [id number] Hx Patient Social History Marital Status: Employed/Student: employed Alcohol Use: Denies Use Recreational Drug Use: No Smoking Status: Never a Smoker 2nd Hand Smoke Exposure: Yes Recent Foreign Travel: No Recent Infectious Disease Expo: No Recent Hopitalizations: Yes (JANUARY 2018-GALLBLADDER X 1 WEEK) Physical Abuse Screen: No Sexual Abuse: No Immunizations Up To Date Tetanus Booster (TDap): Less than 5yrs Date of Influenza Vaccine: Apr 17, 2017 Past Medical History Past medical history as described below Family Medical History Significant Family History: Heart Disease, CAD Under 55 Years Old Family Medical Hx Noncontributory to her current condition Review of Systems Constitutional: see HPI, malaise, weakness EENTM: see HPI, no symptoms reported Respiratory: see HPI, dyspnea on exertion, orthopnea, short of breath Cardiovascular: see HPI; No chest pain; edema; No Hx of Intervention, No palpitations, No syncope, No vascular heart diseas, No other Gastrointestinal: see HPI, nausea, other (Abdominal distention) Genitourinary: no symptoms reported, see HPI Musculoskeletal: see HPI, joint pain Skin: no symptoms reported, see HPI Psychiatric/Neurological: No Symptoms Reported, See HPI Reviewed Test Results Reviewed Test Results Lab Laboratory Tests Test 04/17/18 17:45 04/17/18 18:09 04/18/18 05:40 Range/Units Urine Color YELLOW Urine Clarity CLEAR Urine pH 5 5-9 Urine Specific [place] 1.010 L 1.016-1.022 Urine Protein 3+ H NEGATIVE Urine Glucose (UA) NEGATIVE NEGATIVE Urine Ketones NEGATIVE NEGATIVE Urine Nitrite NEGATIVE NEGATIVE Urine Bilirubin NEGATIVE NEGATIVE Urine Urobilinogen 1 NORMAL MG/DL Urine Leukocyte Esterase NEGATIVE NEGATIVE Urine RBC (Auto) 1+ H NEGATIVE Urine RBC 0-2 /HPF Urine WBC 0-2 /HPF Urine Squamous Epithelial Cells 2-5 /HPF Urine Crystals NONE /LPF Urine Bacteria NONE /HPF Urine Casts NONE /LPF Urine Mucus NEGATIVE /LPF Urine Culture Indicated NO White Blood Count 8.6 4.3-11.0 10^3/uL Red Blood Count 4.59 4.35-5.85 10^6/uL Hemoglobin 10.3 L 11.5-16.0 G/DL Hematocrit 33 L 35-52 % Mean Corpuscular Volume 72 L 80-99 FL Mean Corpuscular Hemoglobin 22 L 25-34 PG Mean Corpuscular Hemoglobin Concent 31 L 32-36 G/DL Red Cell Distribution Width 20.1 H 10.0-14.5 % Platelet Count 370 130-400 10^3/uL Mean Platelet Volume 9.8 7.4-10.4 FL Neutrophils (%) (Auto) 63 42-75 % Lymphocytes (%) (Auto) 29 12-44 % Monocytes (%) (Auto) 7 0-12 % Eosinophils (%) (Auto) 1 0-10 % Basophils (%) (Auto) 1 0-10 % Neutrophils # (Auto) 5.4 1.8-7.8 X 10^3 Lymphocytes # (Auto) 2.5 1.0-4.0 X 10^3 Monocytes # (Auto) 0.6 0.0-1.0 X 10^3 Eosinophils # (Auto) 0.0 0.0-0.3 10^3/uL Basophils # (Auto) 0.0 0.0-0.1 10^3/uL Prothrombin Time 48.3 *H 37.4 H 12.2-14.7 SEC INR Comment 5.3 *H 3.8 H 0.8-1.4 Sodium Level 138 138 135-145 MMOL/L Potassium Level 2.8 L 2.9 L 3.6-5.0 MMOL/L Chloride Level 98 97 L 98-107 MMOL/L Carbon Dioxide Level 22 23 21-32 MMOL/L Anion Gap 18 H 18 H 5-14 MMOL/L Blood Urea Nitrogen 17 15 7-18 MG/DL Creatinine 1.03 0.93 0.60-1.30 MG/DL Estimat Glomerular Filtration Rate 54 > 60 BUN/Creatinine Ratio 17 16 Glucose Level 96 108 H 70-105 MG/DL Calcium Level 9.0 9.2 8.5-10.1 MG/DL Corrected Calcium 8.8 8.5-10.1 MG/DL Total Bilirubin 2.5 H 0.1-1.0 MG/DL Aspartate Amino Transf (AST/SGOT) 27 5-34 U/L Alanine Aminotransferase (ALT/SGPT) 16 0-55 U/L Alkaline Phosphatase 169 H 40-136 U/L B-Type Natriuretic Peptide 804.7 H <100.0 PG/ML Total Protein 7.1 6.4-8.2 GM/DL Albumin 4.2 3.2-4.5 GM/DL Physical Exam Vital Signs Vital Signs - First Documented 04/17/18 18:28 Temp 99.2 Pulse 83 Resp 18 B/P (MAP) 160/62 (94) Pulse Ox 96 O2 Delivery Room Air Capillary Refill : Height, Weight, BMI Height: 4'11.00" Weight: 143lbs. 0.0oz. 64.669314yz; 28.9 BMI Method:Stated General Appearance: WD/WN, Mild Distress Eyes: Bilateral Eye Normal Inspection, Bilateral Eye PERRL, Bilateral Eye EOMI HEENT: PERRL/EOMI, TMs Normal, Normal ENT Inspection, Pharynx Normal Neck: Full Range of Motion, Normal Inspection, Non Tender, Supple, Carotid Bruit Respiratory: Chest Non Tender, Normal Breath Sounds, No Accessory Muscle Use, No Respiratory Distress, Decreased Breath Sounds Cardiovascular: No Gallop, No JVD, Normal Peripheral Pulses, Irregularly Irregular Gastrointestinal: Normal Bowel Sounds, No Organomegaly, No Pulsatile Mass, Non Tender, Soft, Distended Back: Normal Inspection, No CVA Tenderness, No Vertebral Tenderness Extremity: Normal Capillary Refill, Non Tender, No Calf Tenderness, Pedal Edema Neurologic/Psychiatric: Alert, Oriented x3, No Motor/Sensory Deficits, Normal Mood/Affect Skin: Normal Color, Warm/Dry Lymphatic: No Adenopathy A/P-Cardiology Admission Diagnosis Anasarca Congestive heart failure Chronic atrial fibrillation Hypertension Assessment/Plan Anasarca, fluid overload, patient is having worsening pedal edema and ascites and hepatic congestion. Started on Lasix and reporting some improvement. Responding well. Continue with diuretics. Add Aldactone. Congestive heart failure, acute left ventricular systolic dysfunction, ejection fraction 35-40 percent, severe memory hypertension with PA pressure 55 mmHg, receiving diuretics. I will repeat 2-D echocardiogram Pulmonary hypertension with PA pressure 55 mmHg which could be secondary to her ablation and pulmonic vein stenosis. Evaluate echocardiogram may require CT angiogram Coronary artery disease, cardiac catheterization done on 08/20/2013 and repeated on September 12, 2017 showing mild coronary artery disease nonobstructive disease. Continue to monitor Hypokalemia, worsening with aggressive diuretics. Replace and monitor Nausea and dry heaves, patient has been having these symptoms since her cholecystectomy in December 2017. Managed by primary care team History of nonsustained V. tach status post ablation approximately 5 years ago. Status post Linq implantation, maintained on mexiletine, continue to monitor Atrial fib/flutter, history of extensive ablation in [address] Gallegos. Has been intolerant to multiple medications including Tykosin, flecainide, Propafenone and Multaq. Patient was intolerant to amiodarone. She has been seeing Dr. Cole for management. History of emergent cholecystectomy as well as repair of the liver bleed by Dr. Moran. Sick sinus syndrome, symptomatically bradycardia with heart rate in the 30s, status post dual-chamber pacemaker implantation , using [employer] MRI DR , serial number [id number].. Continue to monitor. Hypertension-controlled. Continue to monitor blood pressure/heart rate. Hyperlipidemia, Lipid profile was done on September 12, 2017 showing total cholesterol 93, triglyceride 129, HDL 23, LDL 50, I will hold statin for now Gastroesophageal reflux managed by primary care physician COPD, using C Pap at night, followed by primary care physician. Carotid ultrasound showing no significant stenosis done in September 2016. Continue to monitor. Depression Clinical Quality Measures DVT/VTE Risk/Contraindication: Risk Factor Score Per Nursin RFS Level Per Nursing on Admit: 3=High ELISE RIDER MD Apr 18, 2018 07:37
[2018-04-18 08:00] VITALS: BP 142/65
[2018-04-18] MEDS ORDERED: MAGNESIUM 1 GM/100 ML IVPB 100 ML IV NR (08:15)
[2018-04-18] MEDS ORDERED: ROPI1TAB2 PO (09:52)
[2018-04-18] MEDS ORDERED: TEMA15CA PO (09:52)
[2018-04-18] MEDS ORDERED: ONDA4TAB11 PO (10:07)
[2018-04-18] MEDS ORDERED: WARF-48 PO ×2 (10:07)
[2018-04-18] MEDS ORDERED: ACET-2267 PO (10:07)
[2018-04-18] MEDS: SPIRONOLACTONE 25 MG (ALDACTONE) TAB PO SCH (10:08)
[2018-04-18] MEDS: POTASSIUM CL 10MEQ/50ML IVPB 50 ML IV SCH ×4 (10:55→15:41)
[2018-04-18 12:00] VITALS: BP 140/67
[2018-04-18 15:40] VITALS: BP 132/67
[2018-04-18] MEDS: ESCITALOPRAM 20 MG (LEXAPRO) TABLET NON-FORMULARY PO SCH (19:53)
[2018-04-18] MEDS: rOPINIRole 1 MG (REQUIP) TABLET PO SCH (19:54)
[2018-04-18] MEDS: ATORVASTATIN 40 MG (LIPITOR) TABLET PO SCH (19:56)
[2018-04-18 20:05] VITALS: BP 116/56
[2018-04-18] MEDS ORDERED: PANTOPRAZOLE 40 MG (PROTONIX) TAB PO SCH (21:00)
[2018-04-19 00:04] VITALS: BP 119/58
[2018-04-19 04:05] VITALS: BP 151/68
[2018-04-19 05:47] LABS: HEMOGLOBIN 9.9 G/DL (11.5-16.0); MEAN PLATELET VOLUME 9.9 FL (7.4-10.4); RED BLOOD COUNT 4.62 10^6/uL (4.35-5.85); RED CELL DISTRIBUTION WIDTH 20.2 % (10.0-14.5); WHITE BLOOD COUNT 8.3 10^3/uL (4.3-11.0)
[2018-04-19 06:00] LABS: INR 3.9 (0.8-1.4); PROTHROMBIN TIME PATIENT 38.8 SEC (12.2-14.7)
[2018-04-19] MEDS: PANTOPRAZOLE 40 MG (PROTONIX) TAB PO SCH ×2 (06:03→21:00)
[2018-04-19] MEDS: FUROSEMIDE 40 MG/4 ML INJ (LASIX) IVP SCH ×2 (06:04→17:52)
[2018-04-19 06:11] LABS: ALBUMIN 4.2 GM/DL (3.2-4.5); BILIRUBIN,TOTAL 2.2 MG/DL (0.1-1.0); CALCIUM 8.9 MG/DL (8.5-10.1); CREATININE SERUM 1.03 MG/DL (0.60-1.30); MAGNESIUM 1.8 MG/DL (1.8-2.4); POTASSIUM 3.1 MMOL/L (3.6-5.0); TOTAL PROTEIN 7.8 GM/DL (6.4-8.2)
--- NOTE | 2018-04-19 07:39 | Cardiology Progress Note ---
Subjective Date Seen by Provider: Apr 19, 2018 Time Seen by Provider: 07:35 Subjective/Events-last exam Patient is sitting in chair, feeling better, edema is slightly better. Denied any chest pain. Review of Systems General: No Chills, No Night Sweats; Fatigue, Malaise; No Appetite, No Other HEENT: No Head Aches, No Visual Changes, No Eye Pain, No Ear Pain, No Dysphasia , No Sinus Congestion, No Post Nasal Drip, No Sore Throat, No Other Pulmonary: Dyspnea; No Cough, No Pleuritic Chest Pain, No Other Cardiovascular: Edema; No: Chest Pain, Palpitations, Orthopnea, Paroxysmal Noc. Dyspnea, Lt Headedness, Other Objective-Cardiology Exam Last Set of Vital Signs Vital Signs 04/19/18 04:05 Temp 97.9 Pulse 73 Resp 17 B/P (MAP) 151/68 (95) Pulse Ox 97 O2 Delivery Room Air Capillary Refill : I&O Intake and Output 04/19/18 00:00 Intake Total 2030 ml Output Total 2400 ml Balance -370 ml Intake Oral 1730 ml IV Total 300 ml Output Urine Total 2400 ml General: Alert, Oriented X3, Cooperative HEENT: Atraumatic, PERRLA Neck: Supple, No JVD, No Thyromegaly Lungs: Clear to Auscultation, Normal Air Movement Heart: Regular Rate, Normal S1, Normal S2, No Murmurs Abdomen: Normal Bowel Sounds, Soft, No Tenderness, No Hepatosplenomegaly, No Masses, Other (Distended abdomen) Extremities: No Clubbing, No Cyanosis, Normal Pulses, No Tenderness/Swelling, Other (Pedal edema) Skin: No Rashes, No Breakdown, No Significant Lesion Neuro: Normal Gait, Normal Speech, Strength at 5/5 X4 Ext, Normal Tone, Sensation Intact Psych/Mental Status: Mental Status NL, Mood NL Results Lab Laboratory Tests 04/19/18 05:08 A/P-Cardiology Admission Diagnosis Anasarca Congestive heart failure Chronic atrial fibrillation Hypertension Assessment/Plan Anasarca, fluid overload, increase Lasix to 80 mg IV twice a day and monitor tolerance and response Congestive heart failure, acute left ventricular systolic dysfunction, left ventricular systolic function has deteriorated, ejection fraction 25-30 percent. I will add Entresto and evaluate tolerance and response Pulmonary hypertension, worsening PA pressure, continue with diuretics and monitor tolerance and response Coronary artery disease, cardiac catheterization done on 08/20/2013 and repeated on September 12, 2017 showing mild coronary artery disease nonobstructive disease. Continue to monitor Hypokalemia, continue to monitor electrolytes, continue to replace potassium Nausea and dry heaves, patient has been having these symptoms since her cholecystectomy in December 2017. Managed by primary care team History of nonsustained V. tach status post ablation approximately 5 years ago. Status post Linq implantation, maintained on mexiletine, continue to monitor Atrial fib/flutter, history of extensive ablation in [address] Gallegos. Has been intolerant to multiple medications including Tykosin, flecainide, Propafenone and Multaq. Patient was intolerant to amiodarone. She has been seeing Dr. Cole for management. History of emergent cholecystectomy as well as repair of the liver bleed by Dr. Moran. Sick sinus syndrome, symptomatically bradycardia with heart rate in the 30s, status post dual-chamber pacemaker implantation , using [employer] MRI DR , serial number [id number], patient was scheduled for upgrade to IV pacer, I would recommend considering ICD implantation Hypertension-controlled. Continue to monitor blood pressure/heart rate. Hyperlipidemia, Lipid profile was done on September 12, 2017 showing total cholesterol 93, triglyceride 129, HDL 23, LDL 50, I will hold statin for now Gastroesophageal reflux managed by primary care physician COPD, using C Pap at night, followed by primary care physician. Carotid ultrasound showing no significant stenosis done in September 2016. Continue to monitor. Depression Clinical Quality Measures DVT/VTE Risk/Contraindication: Risk Factor Score Per Nursin RFS Level Per Nursing on Admit: 3=High ELISE RIDER MD Apr 19, 2018 07:38
[2018-04-19] MEDS ORDERED: POTASSIUM CL 10MEQ/50ML IVPB 50 ML IV SCH (07:45)
[2018-04-19 08:00] VITALS: BP 126/56
[2018-04-19] MEDS ORDERED: KCL 10 MEQ TAB (MICRO K) PO NR (08:14)
[2018-04-19] MEDS: SACUBITRIL/VALSARTAN 24/26 MG (ENTRESTO) TABLET PO SCH ×2 (08:19→21:00)
[2018-04-19] MEDS: SPIRONOLACTONE 25 MG (ALDACTONE) TAB PO SCH (08:20)
[2018-04-19] MEDS ORDERED: SPIRONOLACTONE 25 MG (ALDACTONE) TAB PO SCH (09:00)
--- NOTE | 2018-04-19 11:05 | Progress Note (SOAP) ---
Subjective Date Seen by a Provider: Apr 19, 2018 Time Seen by a Provider: 11:00 Subjective/Events-last exam Fwup anasarca, ascites, acute on chronic combined CHF, Chronic Atrial fibrillation, Hypokalemia, Hypomagnesemia. Feels like not as swollen in abdomen and legs. Objective Exam Vital Signs Date Time Temp Pulse Resp B/P (MAP) Pulse Ox O2 Delivery O2 Flow Rate FiO2 04/19/18 08:00 Room Air 04/19/18 08:00 97.7 77 18 126/56 (79) 94 Room Air 04/19/18 07:00 89 04/19/18 04:05 97.9 73 17 151/68 (95) 97 Room Air 04/19/18 01:11 73 04/19/18 00:04 97.8 67 18 119/58 (78) 94 Room Air 04/18/18 20:55 Room Air 04/18/18 20:05 98.2 63 18 116/56 (76) 93 Room Air 04/18/18 19:41 69 04/18/18 15:40 97.5 73 18 132/67 (88) 98 Room Air 04/18/18 13:00 81 04/18/18 12:00 97.9 84 18 140/67 (91) 97 Room Air I & O 04/19/18 07:00 Intake Total 1980 ml Output Total 1400 ml Balance 580 ml Capillary Refill : General Appearance: No Apparent Distress Neck: Supple Respiratory: Lungs Clear Cardiovascular: Systolic Murmur, Gallop/S4, Irregularly Irregular Gastrointestinal: normal bowel sounds, non tender, soft, distended (with ascites) Extremity: Non Tender, No Calf Tenderness, Pedal Edema (1 plus) Neurologic/Psychiatric: Alert, Oriented x3 Skin: Warm/Dry Results Lab Laboratory Tests 04/19/18 05:08: White Blood Count 8.3, Red Blood Count 4.62, Hemoglobin 9.9L, Hematocrit 33L, Mean Corpuscular Volume 72L, Mean Corpuscular Hemoglobin 21L, Mean Corpuscular Hemoglobin Concent 30L, Red Cell Distribution Width 20.2H, Platelet Count 385, Mean Platelet Volume 9.9, Prothrombin Time 38.8H, INR Comment 3.9H, Sodium Level 138, Potassium Level 3.1L, Chloride Level 97L, Carbon Dioxide Level 26, Anion Gap 15H, Blood Urea Nitrogen 18, Creatinine 1.03, Estimat Glomerular Filtration Rate 54, BUN/Creatinine Ratio 17, Glucose Level 118H, Calcium Level 8.9, Corrected Calcium 8.7, Magnesium Level 1.8, Total Bilirubin 2.2H, Aspartate Amino Transf (AST/SGOT) 26, Alanine Aminotransferase (ALT/SGPT) 14, Alkaline Phosphatase 159H, Total Protein 7.8, Albumin 4.2 Assessment/Plan Assessment/Plan Assess & Plan/Chief Complaint 1. Anasarca/Ascites--appears to be from fluid overload from CHF so will continue diuresis with IV lasix, will also check liver US due to history of liver laceration after GB removal in January 2. 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 Chronic Atrial Fibrillation--coumadin on hold due to elevated PT/INR and now on hold due to procedure at the end of next week by Dr. Cole--going to replace pacemaker battery and convert to biventricular 4. Hypokalemia--replace K 5. Hypomagnesemia--replace Mg 6. Weakness--start PT Clinical Quality Measures Admission Status Admission Dx 1. Acute Abdominal Ascites--admit and diurese with spironolactone and IV lasix and monitor, will try to defer abdominal paracentesis due to high risk of peritonitis 2. Anasarca--diurese and monitor, albumin if needed pending lab 3. Acute on Chronic Combined Diastolic/Systolic CHF--admit and check BNP, diureses, consult cardiology 4. Chronic Atrial Fibrillation--monitor on telemetry, restart coumadin and metoprolol 5. GERD--restart Protonix DVT/VTE Risk/Contraindication: Risk Factor Score Per Nursin RFS Level Per Nursing on Admit: 3=High FARHAT SERNA DO Apr 19, 2018 11:05
[2018-04-19 12:00] VITALS: BP 125/67
--- NOTE | 2018-04-19 14:11 | Diagnostic Imaging Report ---
PROCEDURE: US Hepatic (Liver). TECHNIQUE: Multiple real-time grayscale images were obtained over the right upper quadrant in various projections. INDICATION: Liver injury with hyperbilirubinemia and ascites. FINDINGS: Ultrasonography in the right upper quadrant reveals no focal hepatic abnormality. There is a small amount of perihepatic free fluid. Gallbladder is surgically absent. There is no evidence of biliary ductal dilatation. Pancreas is obscured. No right renal, abdominal aortic or inferior vena caval abnormality is identified. IMPRESSION: Small amount of perihepatic fluid of uncertain significance. Otherwise, there is no evidence of acute abnormality in the right upper quadrant. Dictated by: Dictated on workstation # [id number]
--- NOTE | 2018-04-19 14:28 | Physical Therapy Evaluation ---
PT Evaluation-General Medical Diagnosis Admission Date Apr 17, 2018 at 17:30 Medical Diagnosis: weakness Onset Date: Apr 17, 2018 Therapy Diagnosis Therapy Diagnosis: impaired strength and endurance Height/Weight Height (Feet): 4 Height (Inches): 11.00 Weight (Pounds): 151 Weight (Ounces): 5.0 Precautions Precautions/Isolations: Standard Precautions Weight Bear Status Right Lower Extremity: Right Full Weight Bearing Left Lower Extremity: Left Full Weight Bearing Referral Physician: Abimbola Reason for Referral: Evaluation/Treatment Medical History Pertinent Medical History: Atrial Fib, CAD, Diverticulitis, GERD, Heart Failure , HTN Additional Medical History Surgical hx: Cardiac, Gallbladder, Hysterectomy, Oophorectomy, Pacemaker, Tonsillectomy Diverticulosis Current History acute abdominal ascites Reviewed History: Yes Social History Home: Single Level Current Living Status: Spouse Entry Into Home: Stairs Without Railing PT Steps Into Home: 2 Prior/Core FIM Prior Level of Function Functional [place] Measure 0=Not Assessed/NA 4=Minimal Assistance 1=Total Assistance 5=Supervision or Setup 2=Maximal Assistance 6=Modified [place] 3=Moderate Assistance 7=Complete [place] Bed Mobility: 7 Transfers (B,C,W/C) (FIM): 7 Gait: 7 PT Evaluation-Current Subjective pt in bed pre tx, agrees to PT, no pain to report Pt/Family Goals to be independent at home Objective Patient Orientation: Normal For Age ROM/Strength ROM Lower Extremities WFL Strength Lower Extremities grossly 4+/5 bilaterally Neuromuscular (Tone, Coordination, Reflexes) NT Sensory Vision: Wears Glasses Hearing: Functional Sensation Right Lower Extremit: Intact Sensation Left Lower Extremity: Intact Transfers Functional [place] Measure 0=Not Assessed/NA 4=Minimal Assistance 1=Total Assistance 5=Supervision or Setup 2=Maximal Assistance 6=Modified [place] 3=Moderate Assistance 7=Complete [place] Transfers (B, C, W/C) (FIM): 7 Scootin Rollin Supine to/from Sit: 7 Sit to/from Stand: 7 bed t/f WC(FIM only if WC use): 7 independent w/ all transfers, pt stood and walked across room while PT was collecting history, up ad dk in room Gait Mode of Locomotion: Walk Anticipated Mode of Locomotion: Walk Gait (FIM): 7 Distance: 400' Gait Level of Assist: 7 Gait Assistive Device: None Comments/Gait Description pt ambulates independently, steady gait with good speed Balance Sitting Static: Normal Sitting Dynamic: Normal Standing Static: Normal Standing Dynamic: Normal Treatment seated ex: LAQs, hip flexion, APs x15 supine: HS x15 Assessment/Needs pt is independent with mobility and her only deficit is functional activity tolerance, pt states she fatigues very easily and was slightly SOB after 400' ambulation, pt educated on performing exercises on her own 2-3x/day and walking by herself 2-3x/day Rehab Potential: Good PT Plan Problem List Problem List: Activity Tolerance Treatment/Plan Treatment Plan: Discontinue PT Treatment Plan: Gait (pt educated on walking around hallway by herself a 2-3x times/day) Treatment Duration: Apr 19, 2018 Frequency: Estimated Hrs Per Day: Other Patient and/or Family Agrees t: Yes Safety Risks/Education Patient Education: Gait Training Teaching Recipient: Patient Teaching Methods: Discussion Response to Teaching: Verbalize Understanding Discharge Recommendations Plan DC Therapy D/C Recommendations: Home w/ Family Support Time/GCodes Time In: 1400 Time Out: 1420 Total Billed Treatment Time: 20 Total Billed Treatment 1 visit EVSherrie 20' ZOIE CAMARGO PT Apr 19, 2018 14:28
[2018-04-19 15:28] VITALS: BP 112/57
[2018-04-19] MEDS: MAGNESIUM OXIDE (MAG-OX)400 MG TAB PO SCH (17:52)
[2018-04-19 19:00] VITALS: BP 137/61
[2018-04-19] MEDS: KCL 10 MEQ TAB (MICRO K) PO SCH (21:00)
[2018-04-19] MEDS: ATORVASTATIN 40 MG (LIPITOR) TABLET PO SCH (21:00)
[2018-04-19] MEDS: ESCITALOPRAM 20 MG (LEXAPRO) TABLET NON-FORMULARY PO SCH (21:00)
[2018-04-19] MEDS ORDERED: KCL 20 MEQ TAB (K-DUR) PO SCH (21:00)
[2018-04-19] MEDS: rOPINIRole 1 MG (REQUIP) TABLET PO SCH (21:00)
[2018-04-20] VITALS (7 sets, daily range): BP systolic 104–147; BP diastolic 51–67
[2018-04-20] MEDS: ALPRAZolam 0.25 MG (XANAX) TAB PO PRN ×2 (01:37→21:40)
[2018-04-20 04:29] LABS: HEMOGLOBIN 9.4 G/DL (11.5-16.0); MEAN PLATELET VOLUME 9.9 FL (7.4-10.4); RED BLOOD COUNT 4.33 10^6/uL (4.35-5.85); RED CELL DISTRIBUTION WIDTH 19.9 % (10.0-14.5)
[2018-04-20 04:48] LABS: ALANINE AMINOTRANSFERASE 15 U/L (0-55); ALBUMIN 4.1 GM/DL (3.2-4.5); ALKALINE PHOSPHATASE 151 U/L (40-136); BUN/CREATININE RATIO 19; CALCIUM 9.1 MG/DL (8.5-10.1); CARBON DIOXIDE 22 MMOL/L (21-32); CHLORIDE 101 MMOL/L (98-107); CREATININE SERUM 0.88 MG/DL (0.60-1.30); GFR ESTIMATED > 60; GLUCOSE 136 MG/DL (70-105); MAGNESIUM 1.8 MG/DL (1.8-2.4); POTASSIUM 4.3 MMOL/L (3.6-5.0); SODIUM 138 MMOL/L (135-145); TOTAL PROTEIN 6.8 GM/DL (6.4-8.2)
[2018-04-20] MEDS: FUROSEMIDE 40 MG/4 ML INJ (LASIX) IVP SCH ×2 (06:37→17:20)
[2018-04-20] MEDS: KCL 10 MEQ TAB (MICRO K) PO SCH (06:37)
[2018-04-20] MEDS: PANTOPRAZOLE 40 MG (PROTONIX) TAB PO SCH ×2 (06:38→21:34)
[2018-04-20] MEDS ORDERED: KCL 20 MEQ TAB (K-DUR) PO SCH (07:00)
[2018-04-20] MEDS: SACUBITRIL/VALSARTAN 24/26 MG (ENTRESTO) TABLET PO SCH ×2 (08:25→21:35)
[2018-04-20] MEDS: SPIRONOLACTONE 25 MG (ALDACTONE) TAB PO SCH (08:25)
[2018-04-20] MEDS: MAGNESIUM OXIDE (MAG-OX)400 MG TAB PO SCH ×2 (08:25→17:14)
--- NOTE | 2018-04-20 10:46 | Progress Note-Hospitalist ---
Subjective HPI/CC On Admission Date Seen by Provider: Apr 20, 2018 Time Seen by Provider: 09:45 Subjective/Events-last exam patient is currently feeling better this morning. She notes she is having a lot less swelling. She complains primarily of diarrhea secondary to magnesium and that her rectum hurts. Currently she is continuing to be monitored awaiting biventricular pacemaker placement. echocardiogram report is pending. BNP is down to 624. Abdominal sonogram is reviewed and largely unremarkable. Review of Systems Gastrointestinal: Diarrhea Neurological: Weakness Objective Exam Vital Signs Vital Signs Date Time Temp Pulse Resp B/P (MAP) Pulse Ox O2 Delivery O2 Flow Rate FiO2 04/21/18 08:00 97.6 72 22 120/58 (78) 94 Room Air Capillary Refill : General Appearance: No Apparent Distress, WD/WN HEENT: Normal ENT Inspection Neck: Full Range of Motion, Normal Inspection, Non Tender Respiratory: Lungs Clear, Normal Breath Sounds, No Accessory Muscle Use, No Respiratory Distress Cardiovascular: Systolic Murmur, Irregularly Irregular Gastrointestinal: No Organomegaly, No Pulsatile Mass, Non Tender, Soft Back: Normal Inspection Extremity: Non Tender, Pedal Edema Neurologic/Psychiatric: Alert, Oriented x3, No Motor/Sensory Deficits, Normal Mood/Affect Skin: Pallor Results/Procedures Lab Laboratory Tests 04/21/18 04:00 04/21/18 04:40 Patient resulted labs reviewed. Imaging: Reviewed Imaging Report Assessment/Plan Assessment and Plan Assess & Plan/Chief Complaint 1. congestive heart failure both systolic and diastolic dysfunction. most recent ejection fraction was 25-30 percent.recently started on Entresto 2. Atrial fibrillation with supratherapeutic INR. Coumadin on hold INR today is 3. 3. history of sick sinus syndrome scheduled for biventricular pacemaker placement 4. diarrhea patient is going to get Lomotil from home and Tucks pads as well for the rectal discomfort 5. elevated total bilirubin with normal sonogram most likely secondary to passive congestion. 6. pulmonary artery hypertension most likely secondary to left ventricular dysfunction- CT chest within the last year was unremarkable 7. microcytic anemia- stable 8. hypokalemia resolved- will need to watch dosing as patient was just started on spironolactone and Entresto 9. hypomagnesemia- resolved 10. history cancer of the bladder Clinical Quality Measures DVT/VTE Risk/Contraindication: Risk Factor Score Per Nursin RFS Level Per Nursing on Admit: 3=High RUDDY PATINO MD Apr 20, 2018 10:46
--- NOTE | 2018-04-20 11:51 | Physical Therapy Daily Note ---
PT Daily Note-Current Subjective Pt sitting at EOB upon arrival. Pt agrees to PT. Pt reports swelling in BLE. Mental Status Patient Orientation: Person, Place, Time, Situation Transfers Functional [place] Measure 0=Not Assessed/NA 4=Minimal Assistance 1=Total Assistance 5=Supervision or Setup 2=Maximal Assistance 6=Modified [place] 3=Moderate Assistance 7=Complete IndependenceIRFPAI Quality Coding Scale 6 Independent with activity with or without an assistive device 5 Patient requires set up or clean up by helper. Patient completes activity by themselves 4 Supervision or touching assist (CGA). [place] provide cues , steadying assist 3 The helper provides less than half the effort to complete the activity 2 The helper provides more than half the effort to complete the activity 1 Dependent. The helper does all the effort to complete an activity 7 Patient refused to complete or attempt activity 9 The patient did not perform the activity before the current illness or injury 88 Not attempted due to Medical conditions or safety concerns Scootin Sit to/from Stand: 7 Weight Bearing Right Lower Extremity: Right Full Weight Bearing Left Lower Extremity: Left Full Weight Bearing Gait Training Distance (FIM): 3=150 ft Distance: 400' Gait Level of Assist: 7 Gait Persons Needed: 1 Gait Assistive Device: None Pt has slow but steady mynor, no LOB. Treatments Pt transfers from EOB to Standing w/o AD Independently. Pt ambulates in hallway before returning to rest and order lunch. Pt asks LOCOMOTIVE DRIVER about swelling so LOCOMOTIVE DRIVER discuss RICE and energy conservation techniques as well as review Seated Ex for home as well as maintaining strength while healing from multiple surgeries/procedures over the last several months. Pt has all needs met at end of tx. Assessment Current Status: Good Progress Pt deals with some fatigue due to weakness from frequent procedures of surgeries over the last several months but is getting stronger as has good support at home. PT Plan Problem List Problem List: Activity Tolerance Treatment/Plan Treatment Plan: Continue Plan of Care Treatment Plan: Gait (pt educated on walking around hallway by herself a 2-3x times/day) Treatment Duration: Apr 19, 2018 Frequency: Estimated Hrs Per Day: Other Patient and/or Family Agrees t: Yes Safety Risks/Education Patient Education: Correct Positioning, Safety Issues Teaching Recipient: Patient, Significant Other Teaching Methods: Discussion Response to Teaching: Verbalize Understanding Time/GCodes Time In: 1115 Time Out: 1145 Total Billed Treatment Time: 30 Total Billed Treatment 1, FA (15m) & GT (15m) G Codes Necessary: LORRAINE Mccallum PTA Apr 20, 2018 11:51
--- NOTE | 2018-04-20 13:22 | Progress Note-Cardiology ---
Cardiology SOAP Progress Note Subjective: Still short of breath with mild exertion No cp or palp or syncope Continues with leg swelling, albeit with modest improvement Objective: I&O/Vital Signs 04/20/18 04/20/18 04/20/18 04/20/18 04:00 07:00 08:00 08:00 Temp 97.9 97.8 Pulse 79 83 76 Resp 20 22 B/P (MAP) 147/67 (93) 139/65 (89) Pulse Ox 98 92 92 O2 Delivery Room Air Room Air Room Air 04/20/18 13:00 Pulse 72 04/20/18 00:00 Intake Total 1515 ml Output Total 1450 ml Balance 65 ml Weight (Pounds): 150 Weight (Ounces): 8.0 Weight (Calculated Kilograms): 68.335269 Constitutional: AAO x 3, well-developed, well-nourished Respiratory: No accessory muscle use; lungs clear to percussion, other ( bibasilar coarse and fine crackles) Cardiovascular: regular rate-rhythm, S1 and S2, systolic murmur (soft BRANDON at card base) Gastrointestional: No tender; soft; No guarding, No rebound; audible bowel sounds Extremities: No clubbing, No cyanosis; significant edema (2+ pitting edema of both legs) Neurologic/Psychiatric: grossly intact, power is 5/5 both on sides Skin: No rash on exposed areas, No ulcerations on exposed areas Results/Procedures: Labs Laboratory Tests 04/20/18 04:19: White Blood Count 10.0, Red Blood Count 4.33L, Hemoglobin 9.4L, Hematocrit 32L, Mean Corpuscular Volume 73L, Mean Corpuscular Hemoglobin 22L, Mean Corpuscular Hemoglobin Concent 30L, Red Cell Distribution Width 19.9H, Platelet Count 362, Mean Platelet Volume 9.9, Prothrombin Time 31.0H, INR Comment 3.0H, Sodium Level 138, Potassium Level 4.3, Chloride Level 101, Carbon Dioxide Level 22, Anion Gap 15H, Blood Urea Nitrogen 17, Creatinine 0.88, Estimat Glomerular Filtration Rate > 60, BUN/Creatinine Ratio 19, Glucose Level 136H, Calcium Level 9.1, Corrected Calcium 9.0, Magnesium Level 1.8, Total Bilirubin 2.0H, Aspartate Amino Transf (AST/SGOT) 23, Alanine Aminotransferase (ALT/SGPT) 15, Alkaline Phosphatase 151H, B-Type Natriuretic Peptide 624.2H, Total Protein 6.8 , Albumin 4.1 Laboratory Tests 04/19/18 05:08 04/20/18 04:19 A/P: Assessment: Ac systolic congestive heart failure (ejection fraction 25-30%), NYHA Class III Pulmonary hypertension, likely due to left heart failure Microcytic, hypochromic anemia of undetermined etiology (managed by the [facility] [place] ) Mild coronary artery disease on cardiac catheterization of September 12, 2017 S/p VT ablation approximately 5 years ago, maintained on mexiletine Atrial fib/flutter, history of extensive ablation in [address] Gallegos. Intolerant to Tikosyn, flecainide, Propafenone, Multaq, and amiodarone. 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
[2018-04-20] MEDS: ESCITALOPRAM 20 MG (LEXAPRO) TABLET NON-FORMULARY PO SCH (21:34)
[2018-04-20] MEDS: ATORVASTATIN 40 MG (LIPITOR) TABLET PO SCH (21:35)
[2018-04-20] MEDS: rOPINIRole 1 MG (REQUIP) TABLET PO SCH (21:35)
[2018-04-21 04:00] VITALS: BP 112/56
[2018-04-21 04:53] LABS: HEMOGLOBIN 9.8 G/DL (11.5-16.0); MEAN PLATELET VOLUME 9.9 FL (7.4-10.4); RED BLOOD COUNT 4.56 10^6/uL (4.35-5.85); RED CELL DISTRIBUTION WIDTH 20.4 % (10.0-14.5); WHITE BLOOD COUNT 8.4 10^3/uL (4.3-11.0)
[2018-04-21 05:03] LABS: INR 2.3 (0.8-1.4); PROTHROMBIN TIME PATIENT 25.8 SEC (12.2-14.7)
[2018-04-21 05:16] LABS: ALANINE AMINOTRANSFERASE 15 U/L (0-55); ALBUMIN 4.2 GM/DL (3.2-4.5); ALKALINE PHOSPHATASE 153 U/L (40-136); BILIRUBIN,TOTAL 2.1 MG/DL (0.1-1.0); BUN/CREATININE RATIO 19; CALCIUM 9.4 MG/DL (8.5-10.1); CARBON DIOXIDE 26 MMOL/L (21-32); CHLORIDE 100 MMOL/L (98-107); GFR ESTIMATED > 60; GLUCOSE 119 MG/DL (70-105); MAGNESIUM 1.8 MG/DL (1.8-2.4); POTASSIUM 4.1 MMOL/L (3.6-5.0); SODIUM 138 MMOL/L (135-145); TOTAL PROTEIN 7.2 GM/DL (6.4-8.2)
[2018-04-21] MEDS: PANTOPRAZOLE 40 MG (PROTONIX) TAB PO SCH ×2 (06:57→19:38)
[2018-04-21] MEDS: KCL 10 MEQ TAB (MICRO K) PO SCH (06:57)
[2018-04-21] MEDS: FUROSEMIDE 40 MG/4 ML INJ (LASIX) IVP SCH (06:58)
[2018-04-21 08:00] VITALS: BP 120/58
[2018-04-21] MEDS: SPIRONOLACTONE 25 MG (ALDACTONE) TAB PO SCH (09:02)
[2018-04-21] MEDS: SACUBITRIL/VALSARTAN 24/26 MG (ENTRESTO) TABLET PO SCH ×2 (09:02→19:38)
[2018-04-21] MEDS: MAGNESIUM OXIDE (MAG-OX)400 MG TAB PO SCH (09:03)
--- NOTE | 2018-04-21 09:23 | Progress Note-Hospitalist ---
Subjective HPI/CC On Admission Date Seen by Provider: Apr 21, 2018 Time Seen by Provider: 08:30 Subjective/Events-last exam patient is feeling much better but remains somewhat dyspneic with Walking. the edema in her legs is a lot better. She has been refusing her magnesium and this morning it remained stable. The diarrhea has gotten better and she's been using cornstarch from home on her bottom. we discussed going home however I feel like we should change to oral Lasix before discharge to make sure she remains stable without orthostatic hypotension as we begin to get her on the dry side. Review of Systems Pulmonary: Dyspnea Gastrointestinal: Diarrhea Neurological: Weakness Objective Exam Vital Signs Vital Signs Date Time Temp Pulse Resp B/P (MAP) Pulse Ox O2 Delivery O2 Flow Rate FiO2 04/21/18 08:00 97.6 72 22 120/58 (78) 94 Room Air Capillary Refill : General Appearance: No Apparent Distress, WD/WN HEENT: Normal ENT Inspection Neck: Full Range of Motion, Normal Inspection, Non Tender, Supple Respiratory: Chest Non Tender, Lungs Clear, Normal Breath Sounds, No Accessory Muscle Use, No Respiratory Distress Cardiovascular: Systolic Murmur, Irregularly Irregular Gastrointestinal: Normal Bowel Sounds, No Organomegaly, Non Tender, Soft Rectal: Deferred Back: Normal Inspection, No CVA Tenderness, No Vertebral Tenderness Extremity: Normal Inspection, No Calf Tenderness, No Pedal Edema Neurologic/Psychiatric: Alert, Oriented x3, No Motor/Sensory Deficits, Normal Mood/Affect Skin: Normal Color, Warm/Dry Results/Procedures Lab Laboratory Tests 04/21/18 04:00 04/21/18 04:40 Patient resulted labs reviewed. Imaging: Reviewed Imaging Report Assessment/Plan Assessment and Plan Assess & Plan/Chief Complaint 1. congestive heart failure both systolic and diastolic dysfunction. most recent ejection fraction was 25-30 percent.recently started on Entresto. NYHA class lll..will change to oral Lasix. will discuss with Dr. Pinzon -plan for discharge tomorrow. 2. Atrial fibrillation with supratherapeutic INR. Coumadin on hold INR today is 2.3. Patient was instructed to continue to hold Coumadin until she has a biventricular pacemaker placed 3. history of sick sinus syndrome scheduled for biventricular pacemaker placement 4. diarrhea secondary to magnesium. patient has been refusing and the diarrhea is better 5. elevated total bilirubin with normal sonogram most likely secondary to passive congestion. 6. pulmonary artery hypertension most likely secondary to left ventricular dysfunction- CT chest within the last year was unremarkable-with diuresis and Entresto we'll need to carefully monitor for orthostasis 7. microcytic anemia- stable 8. hypokalemia resolved- will need to watch dosing as patient was just started on spironolactone and Entresto 9. hypomagnesemia- resolved 10. history cancer of the bladder-REED Clinical Quality Measures DVT/VTE Risk/Contraindication: Risk Factor Score Per Nursin RFS Level Per Nursing on Admit: 3=High RUDDY PATINO MD Apr 21, 2018 09:23
[2018-04-21 12:00] VITALS: BP 131/61
--- NOTE | 2018-04-21 12:22 | Progress Note-Cardiology ---
Cardiology SOAP Progress Note Subjective: No new symptoms Exertional shortness of breath modestly improved No cp or palp or syncope Leg swelling improved compared to yesterday Objective: I&O/Vital Signs 04/21/18 04/21/18 04/21/18 04/21/18 01:00 04:00 07:00 08:00 Temp 98.0 Pulse 70 70 72 Resp 20 B/P (MAP) 112/56 (74) Pulse Ox 94 92 O2 Delivery Room Air Room Air 04/21/18 08:00 Temp 97.6 Pulse 72 Resp 22 B/P (MAP) 120/58 (78) Pulse Ox 94 O2 Delivery Room Air 04/21/18 00:00 Intake Total 1750 ml Output Total 2900 ml Balance -1150 ml Weight (Pounds): 143 Weight (Ounces): 8.0 Weight (Calculated Kilograms): 64.100053 Constitutional: AAO x 3, well-developed, well-nourished Respiratory: No accessory muscle use; lungs clear to percussion, other ( bibasilar coarse and fine crackles) Cardiovascular: regular rate-rhythm, S1 and S2, systolic murmur (soft BRANDON at card base) Gastrointestional: No tender; soft; No guarding, No rebound; audible bowel sounds Extremities: No clubbing, No cyanosis; significant edema (1+ pitting edema of both legs) Neurologic/Psychiatric: grossly intact, power is 5/5 both on sides Skin: No rash on exposed areas, No ulcerations on exposed areas Results/Procedures: Labs Laboratory Tests 04/21/18 04:00: White Blood Count 8.4, Red Blood Count 4.56, Hemoglobin 9.8L, Hematocrit 33L, Mean Corpuscular Volume 72L, Mean Corpuscular Hemoglobin 21L, Mean Corpuscular Hemoglobin Concent 30L, Red Cell Distribution Width 20.4H, Platelet Count 384, Mean Platelet Volume 9.9 04/21/18 04:40: Prothrombin Time 25.8H, INR Comment 2.3H, Sodium Level 138, Potassium Level 4.1 , Chloride Level 100, Carbon Dioxide Level 26, Anion Gap 12, Blood Urea Nitrogen 17, Creatinine 0.90, Estimat Glomerular Filtration Rate > 60, BUN/ Creatinine Ratio 19, Glucose Level 119H, Calcium Level 9.4, Corrected Calcium 9.2, Magnesium Level 1.8, Total Bilirubin 2.1H, Aspartate Amino Transf (AST/SGOT ) 23, Alanine Aminotransferase (ALT/SGPT) 15, Alkaline Phosphatase 153H, Total Protein 7.2, Albumin 4.2 Laboratory Tests 04/20/18 04:19 04/21/18 04:00 04/21/18 04:40 A/P: Assessment: Ac systolic congestive heart failure (ejection fraction 25-30%), NYHA Class II Pulmonary hypertension, likely due to left heart failure Microcytic, hypochromic anemia of undetermined etiology (managed by the [facility] [place] ) Mild coronary artery disease on cardiac catheterization of September 12, 2017 S/p VT ablation approximately 5 years ago, maintained on mexiletine Atrial fib/flutter, history of extensive ablation in [address] Gallegos. Intolerant to Tikosyn, flecainide, Propafenone, Multaq, and amiodarone. 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
[2018-04-21 15:39] VITALS: BP 122/62
[2018-04-21] MEDS: FUROSEMIDE 40 MG (LASIX) TAB PO SCH (16:11)
[2018-04-21] MEDS: ESCITALOPRAM 20 MG (LEXAPRO) TABLET NON-FORMULARY PO SCH (19:38)
[2018-04-21] MEDS: ATORVASTATIN 40 MG (LIPITOR) TABLET PO SCH (19:39)
[2018-04-21] MEDS: rOPINIRole 1 MG (REQUIP) TABLET PO SCH (19:39)
[2018-04-21 20:25] VITALS: BP 114/72
[2018-04-22 00:02] VITALS: BP 123/59
[2018-04-22 04:07] VITALS: BP 120/62
[2018-04-22 06:08] LABS: INR 1.6 (0.8-1.4); PROTHROMBIN TIME PATIENT 19.4 SEC (12.2-14.7)
[2018-04-22 06:14] LABS: CALCIUM 9.6 MG/DL (8.5-10.1); CREATININE SERUM 0.96 MG/DL (0.60-1.30); POTASSIUM 4.1 MMOL/L (3.6-5.0)
[2018-04-22] MEDS: FUROSEMIDE 40 MG (LASIX) TAB PO SCH (06:29)
[2018-04-22] MEDS: PANTOPRAZOLE 40 MG (PROTONIX) TAB PO SCH (06:29)
[2018-04-22] MEDS: KCL 10 MEQ TAB (MICRO K) PO SCH (06:29)
[2018-04-22 08:00] VITALS: BP 111/56
--- NOTE | 2018-04-22 08:40 | Cardiology Progress Note ---
Subjective Date Seen by Provider: Apr 22, 2018 Time Seen by Provider: 08:15 Subjective/Events-last exam Patient is sitting up in chair, no new complaints. Denies any chest pain or dyspnea. States edema has improved significantly. Objective-Cardiology Exam Last Set of Vital Signs Vital Signs 04/22/18 04:07 Temp 97.7 Pulse 72 Resp 18 B/P (MAP) 120/62 (81) Pulse Ox 95 O2 Delivery Room Air Capillary Refill : I&O Intake and Output 04/22/18 00:00 Intake Total 2370 ml Output Total 3850 ml Balance -1480 ml Intake Oral 2370 ml Output Urine Total 3850 ml # Bowel Movements 1 General: Alert, Oriented X3, Cooperative HEENT: Atraumatic, PERRLA Neck: Supple, No JVD, No Thyromegaly Lungs: Clear to Auscultation, Normal Air Movement Heart: Regular Rate, Normal S1, Normal S2, No Murmurs Abdomen: Normal Bowel Sounds, Soft, No Tenderness, No Hepatosplenomegaly, No Masses Extremities: No Clubbing, No Cyanosis, Normal Pulses, No Tenderness/Swelling, Other (trace pedal edema) Skin: No Rashes, No Breakdown, No Significant Lesion Neuro: Normal Gait, Normal Speech, Strength at 5/5 X4 Ext, Normal Tone, Sensation Intact Psych/Mental Status: Mental Status NL, Mood NL Results Lab Laboratory Tests 04/22/18 05:27 A/P-Cardiology Admission Diagnosis Anasarca Congestive heart failure Chronic atrial fibrillation Hypertension Assessment/Plan Anasarca, fluid overload,improved. Continue Lasix and continue to monitor. Congestive heart failure, acute left ventricular systolic dysfunction, left ventricular systolic function has deteriorated, ejection fraction 25-30 percent. Started on Entresto. Pulmonary hypertension, worsening PA pressure, continue with diuretics and monitor tolerance and response Coronary artery disease, cardiac catheterization done on 08/20/2013 and repeated on September 12, 2017 showing mild coronary artery disease nonobstructive disease. Continue to monitor Hypokalemia, replaced and improved. Continue to monitor. Nausea and dry heaves, patient has been having these symptoms since her cholecystectomy in December 2017. Managed by primary care team History of nonsustained V. tach status post ablation approximately 5 years ago. Status post Linq implantation, maintained on mexiletine, continue to monitor Atrial fib/flutter, history of extensive ablation in [address] Gallegos. Has been intolerant to multiple medications including Tykosin, flecainide, Propafenone and Multaq. Patient was intolerant to amiodarone. She has been seeing Dr. Cole for management. Maintained on Coumadin. Coumadin currently on hold. History of emergent cholecystectomy as well as repair of the liver bleed by Dr. Moran. Sick sinus syndrome, symptomatically bradycardia with heart rate in the 30s, status post dual-chamber pacemaker implantation , using [employer] DR , serial number [id number],patient scheduled for Bi-V implantations later this week. Continue to hold Coumadin. Hypertension-controlled. Continue to monitor blood pressure/heart rate. Hyperlipidemia, Lipid profile was done on September 12, 2017 showing total cholesterol 93, triglyceride 129, HDL 23, LDL 50, I will hold statin for now Gastroesophageal reflux managed by primary care physician COPD, using C Pap at night, followed by primary care physician. Carotid ultrasound showing no significant stenosis done in September 2016. Continue to monitor. Depression Clinical Quality Measures DVT/VTE Risk/Contraindication: Risk Factor Score Per Nursin RFS Level Per Nursing on Admit: 3=High KEKE ZAPATA Apr 22, 2018 08:39
[2018-04-22] MEDS ORDERED: POTA10TA6 PO (08:55)
[2018-04-22] MEDS ORDERED: FURO40TA4 PO (08:55)
[2018-04-22] MEDS ORDERED: SACU1TAB PO (08:55)
[2018-04-22] MEDS ORDERED: FUROSEMIDE 40 MG (LASIX) TAB PO SCH (09:00)
--- NOTE | 2018-04-22 09:10 | Electrophysiology Consultation ---
HPI-Cardiology Cardiology Consultation: Date of Consultation 04/22/18 Date of Admission Attending Physician Jalyn Daily DO Admitting Physician Jalyn Daily DO Consulting Physician Breanne COLE MD HPI: Time Seen by a Provider: 09:10 Chief Complaint: Heart failure this is a 67-year-old lady who is a patient of Dr. Hewitt and was admitted for management of acute systolic congestive heart failure. She is doing much better on increased dose of IV Lasix. She was was previously referred for further management of atrial fibrillation. She previously saw Dr. Bridges at for electrophysiology but wants to transfer to local EP. She has complex cardiac EP history. She has persistent atrial fibrillation since 03/2014 with atrial fibrillation ablation on 07/07/2014. She also developed paroxysmal atrial flutter and underwent atrial flutter ablation on 2010. Conduction block was intact during atrial fibrillation ablation in June 2014. She developed recurrent atypical atrial flutter on 12/17/2015. The patient also has history of tachycardia-bradycardia syndrome and a Medtronic permanent pacemaker was done on 11/10/[address] Hewitt. Patient has had significantly slow rates on flecainide. Previous history of ventricular ectopy. Coronary angiography done by Dr. Hewitt 08/2013 was normal. Patient has normal systolic function but has diastolic dysfunction on echocardiogram. History of hypertension, obstructive sleep apnea and hyperlipidemia. Her atrial arrhythmias are refractory to tikosyn. She has been intolerant to flecainide due to symptomatic Wenckebach, propafenone due to feeling like being in a fog And multaq due to severe diarrhea.she discontinued amiodarone in October 2016 due to severe shortness of breath and dyspnea on exertion and nausea. Atrial flutter was initially diagnosed in 2009. Atrial flutter was refractory to flecainide in 2010. Atrial flutter CTI RFA was done on 11/07/2010. In August 2013 due to symptoms of dyspnea on exertion she was diagnosed with frequent PVCs. Coronary angiography was done on 08/[address] Hewitt which showed normal coronaries. In March 2014 recurrent atrial fibrillation was diagnosed and the patient was initiated on Eliquis and EP consultation was done. 04/21/2014 the patient was initiated on flecainide 50 mg twice a day and also remained on verapamil 180 mg. Review of Systems-Cardiology Review of Systems Constitutional: As described under HPI; No As described under HPI, No no symptoms reported, No chills, No fever, No lightheadedness Eyes: No As described under HPI, No no symptoms reported, No blindness, No blurred vision, No contact lenses, No drainage, No decreased acuity, No foreign body sensation, No pain, No vision change Ears/Nose/Throat: No As described under HPI, No no symptoms reported, No chronic hearing loss, No ear discharge, No ear pain, No nasal drainage, No ulcerations Respiratory: No no symptoms reported; As described under HPI; No As described under HPI, No cough, No orthopnea; shortness of breath; No SOB with excertion Cardiovascular: No no symptoms reported; As described under HPI; No As described under HPI, No chest pain, No edema, No irregular heart rate, No lightheadedness, No palpitations Gastrointestinal: No no symptoms reported, No As described under HPI, No abdomen distended, No abdominal pain, No blood streaked bowels, No constipation , No diarrhea, No nausea, No vomiting, No stool coloration changes Genitourinary: No As described under HPI, No burning, No dysuria, No discharge , No frequency, No flank pain, No hematuria, No urgency : Yes : No Skin: No rash, No skin related problems, No ulcerations Psychiatric/Neurological: No anxiety, No depression, No seizure, No focal weakness, No syncope Hematologic: No bleeding abnormalities [id number]-Xjgnmo Hx Patient Social History Marrital Status: Employed/Student: employed Alcohol Use: Denies Use Recreational Drug Use: No Smoking Status: Never a Smoker 2nd Hand Smoke Exposure: Yes Recent Foreign Travel: No Recent Infectious Disease Expo: No Physical Abuse Screen: No Sexual Abuse: No Immunizations Up To Date Tetanus Booster (TDap): Less than 5yrs Date of Influenza Vaccine: Apr 17, 2018 Past Medical History PMH As described under Assessment. Allergies and Home Medications Allergies Coded Allergies: rosuvastatin (Unverified Allergy, Mild, 03/06/18) Sulfa (Sulfonamide Antibiotics) (Verified Allergy, Unknown, 03/06/18) Home Medications Acetaminophen 500 Mg Tablet, 500-1,000 MG PO Q6H PRN for PAIN-MILD, (Reported) Alprazolam 0.5 Mg Tablet, 0.25-0.5 MG PO TID PRN for ANXIETY, (Reported) TAKES 1/2 TO 1 (0.5 MG) TABLET Atorvastatin Calcium 40 Mg Tablet, 40 MG PO HS, (Reported) Cranberry Extract 500 Mg Tablet, 500 MG PO DAILY, (Reported) Escitalopram Oxalate 20 Mg Tablet, 10 MG PO DAILY, (Reported) TAKES 1/2 (20MG) TABLET Furosemide 20 Mg Tablet, 20 MG PO DAILY, (Reported) Furosemide 40 Mg Tablet, 80 MG PO DAILY Prescribed by: KEKE GOLDSMITH on 04/22/18 0855 Metoprolol Succinate 25 Mg Tab.er.24h, 25 MG PO HS, (Reported) Ondansetron 4 Mg Tab.rapdis, 4 MG PO Q6H PRN for NAUSEA/VOMITING-1ST LINE, ( Reported) Pantoprazole Sodium 40 Mg Tablet.dr, 40 MG PO BID, (Reported) Potassium Chloride 10 Meq Tablet.er, 40 MEQ PO DAILY@0700 Prescribed by: KEKE GOLDSMITH on 04/22/18 08 Sacubitril/Valsartan 1 Each Tablet, 1 TAB PO BID Prescribed by: KEKE GOLDSMITH on 04/22/18 0855 Spironolactone 25 Mg Tablet, 25 MG PO DAILY, (Reported) Temazepam 15 Mg Capsule, 15 MG PO HS, (Reported) Warfarin Sodium 5 Mg Tablet, 5 MG PO SuTuThSa, (Reported) Warfarin Sodium 5 Mg Tablet, 2.5 MG PO MoWeFr, (Reported) TAKES 1/2 (5MG) TABLET Patient Home Medication List Home Medication List Reviewed: Yes Physical Exam-Cardiology Physical Exam Vital Signs/I&O 04/22/18 04/22/18 04/22/18 01:00 04:07 08:00 Temp 97.7 97.1 Pulse 77 72 76 Resp 18 16 B/P (MAP) 120/62 (81) 111/56 (74) Pulse Ox 95 98 O2 Delivery Room Air Room Air 04/22/18 00:00 Intake Total 1920 ml Output Total 3450 ml Balance -1530 ml Capillary Refill : Constitutional: AAO x 3, well-developed, well-nourished HEENT: No PERRL, No normal ENT inspection, No TMs normal, No pharynx normal, No scleral icterus (R), No scleral icterus (L), No pale conjunctivae (R), No pale conjunctivae (L), No photophobia, No TM abnormal (R), No TM abnormal (L), No pharyngeal erythema, No tonsillar exudate, No other, No discharge, No EOMI, No hearing is well preserved, No hard of hearing, No oral hygience is good, No ulceration, No xanthelasmas are seen Neck: No non-tender, No full range of motion, No supple, No normal inspection, No carotid bruit, No limited range of motion, No lymphadenopathy (R), No lymphadenopathy (L), No tender lateral, No tender midline, No thyromegaly, No other, No carotid pulses are 2 + bilaterally, No with good upstrokes Respiratory: No accessory muscle use, No respiratory distress, No chest tender , No chest expansion is symmetric; chest is bilaterally symmetric, lungs clear to percussion; No lungs clear to auscultation, No crackles, No rhonchi, No rales , No stridor, No wheezing, No pleural rub; other (bibasilar coarse and fine crackles) Cardiovascular: irregularly irregular, S1 and S2, systolic murmur (soft BRANDON at card base) Gastrointestinal: No tender; soft; No guarding, No rebound; audible bowel sounds Rectal: deferred Extremities: No normal range of motion, No non-tender, No normal inspection, No pedal edema, No calf tenderness, No normal capillary refill, No pelvis stable , No calf tenderness, No inflammation, No pedal edema, No slow capillary refill , No swelling, No other, No abrasion, No clubbing, No cyanosis, No ecchymosis, No laceration, No no lower extremity edema bilateral; significant edema (1+ pitting edema of both legs); No tenderness, No wound Neurologic/Psychiatric: no motor/sensory deficits, alert, normal mood/affect, oriented x 3, grossly intact, power is 5/5 both on sides Skin: No normal color, No warm/dry, No cyanosis, No cool, No diaphoresis, No damp, No ecchymosis, No jaundice, No mottled, No pallor, No rash, No tattoos/ piercings, No ulcerations, No rash on exposed areas, No ulcerations on exposed areas, No other Data Review Labs Laboratory Tests 04/22/18 05:27: Prothrombin Time 19.4H, INR Comment 1.6H, Sodium Level 136, Potassium Level 4.1 , Chloride Level 96L, Carbon Dioxide Level 24, Anion Gap 16H, Blood Urea Nitrogen 17, Creatinine 0.96, Estimat Glomerular Filtration Rate 58, BUN/ Creatinine Ratio 18, Glucose Level 111H, Calcium Level 9.6 A/P-Cardiology Assessment/Admission Diagnosis Admission Diagnosis Anasarca Acute systolic Congestive heart failure Persistent atrial fibrillation Hypertension Plan Assessment/Plan Acute systolic congestive heart failure with worsening of LV systolic dysfunction. Her most recent outpatient echocardiogram showed an EF of 35-40 percent. However during this admission the echocardiogram done by Dr. Hewitt shows an LV systolic function of 25-[address] Hewitt has been doing aggressive IV diuresis and fine tuning of cardiomyopathy medications. She previously saw Dr. Bridges at for electrophysiology but wants to transfer to local EP. She has complex cardiac EP history. She has persistent atrial fibrillation since 03/2014 with atrial fibrillation ablation on 07/07/2014. She also developed paroxysmal atrial flutter and underwent atrial flutter ablation on 2010. Conduction block was intact during atrial fibrillation ablation in June 2014. She developed recurrent atypical atrial flutter on 12/17/2015. The patient also has history of tachycardia-bradycardia syndrome and a Medtronic permanent pacemaker was done on 11/10/[address] Hewitt. Patient has had significantly slow rates on flecainide. Previous history of ventricular ectopy. Coronary angiography done by Dr. Hewitt 08/2013 was normal. Patient has normal systolic function but has diastolic dysfunction on echocardiogram. History of hypertension, obstructive sleep apnea and hyperlipidemia. Her atrial arrhythmias are refractory to tikosyn. She has been intolerant to flecainide due to symptomatic Wenckebach, propafenone due to feeling like being in a fog And multaq due to severe diarrhea.she discontinued amiodarone in October 2016 due to severe shortness of breath and dyspnea on exertion and nausea. Atrial flutter was initially diagnosed in 2009. Atrial flutter was refractory to flecainide in 2010. Atrial flutter CTI RFA was done on 11/07/2010. In August 2013 due to symptoms of dyspnea on exertion she was diagnosed with frequent PVCs. Coronary angiography was done on 08/[address] Hewitt which showed normal coronaries. In March 2014 recurrent atrial fibrillation was diagnosed and the patient was initiated on Eliquis and EP consultation was done. 04/21/2014 the patient was initiated on flecainide 50 mg twice a day and also remained on verapamil 180 mg. 1. Persistent atrial tachycardia: Continue amiodarone and metoprolol. The patient will also continue oral anticoagulation.extensive ablation history for both atrial flutter and atrial fibrillation with recurrence of symptoms. The patient is also either refractory or intolerant to numerous antiarrhythmics including mexiletine, Dronedrone, propafenone, flecainide and dofetilide. it is likely that the patient has permanent atrial fibrillation and we may have to work with rate control and oral anticoagulation only. AV node ablation was also discussed due to significant symptoms in the future if no significant clinical improvement after upgrade to biventricular ICD. 2. Medtronic dual-chamber permanent pacemaker: Normal device function. V pacing 85 percent. Atrial pacing 25 percent. Patient was in atrial fibrillation/atrial tachycardia.although the patient has significant RV pacing with echocardiogram 22/09/2017 showing an EF of 35-40 percent. The patient also has shortness of breath. However the benefit from a biventricular device in a patient with atrial fibrillation is less, however it is indicated and will be beneficial due to significant RV pacing; initially the patient was scheduled for a upgrade to biventricular pacemaker, however due to recent worsening of ejection fraction to less than 30 percent. We will upgrade to biventricular ICD when stable from a heart failure perspective. I will discuss with Dr. Hewitt the most appropriate timing for the upgrade. She was previously scheduled for this for the upgrade. ramipril was started. Patient does not have any CAD on coronary angiography done in September 2017. She has [employer] Heart [employer] class III heart failure. 3. Medtronic implantable loop recorder. 4. PVCs: On beta blockers. Thank you for your consultation. Please call me if you have any questions. Roderick Cole MD, FACP, FACC, FSCAI, FHRS, CCDS Interventional Cardiology Cardiac Electrophysiology Vascular Medicine and Endovascular Interventions Clinical Quality Measures DVT/VTE Risk/Contraindication: Risk Factor Score Per Nursin RFS Level Per Nursing on Admit: 3=High Breanne COLE MD Apr 22, 2018 09:10
--- NOTE | 2018-04-22 09:13 | Cardiology Progress Note ---
Subjective Date Seen by Provider: Apr 22, 2018 Time Seen by Provider: 08:55 Subjective/Events-last exam Patient is in a chair, feeling better, less edema, no chest pain Review of Systems General: No Chills, No Night Sweats, No Fatigue, No Malaise, No Appetite, No Other HEENT: No Head Aches, No Visual Changes, No Eye Pain, No Ear Pain, No Dysphasia , No Sinus Congestion, No Post Nasal Drip, No Sore Throat, No Other Pulmonary: Dyspnea; No Cough, No Pleuritic Chest Pain, No Other Cardiovascular: Edema; No: Chest Pain, Palpitations, Orthopnea, Paroxysmal Noc. Dyspnea, Lt Headedness, Other Objective-Cardiology Exam Last Set of Vital Signs Vital Signs 04/22/18 04:07 Temp 97.7 Pulse 72 Resp 18 B/P (MAP) 120/62 (81) Pulse Ox 95 O2 Delivery Room Air Capillary Refill : I&O Intake and Output 04/22/18 00:00 Intake Total 2370 ml Output Total 3850 ml Balance -1480 ml Intake Oral 2370 ml Output Urine Total 3850 ml # Bowel Movements 1 General: Alert, Oriented X3, Cooperative HEENT: Atraumatic, PERRLA Neck: Supple, No JVD, No Thyromegaly Lungs: Clear to Auscultation, Normal Air Movement Heart: Regular Rate, Normal S1, Normal S2, No Murmurs Abdomen: Normal Bowel Sounds, Soft, No Tenderness, No Hepatosplenomegaly, No Masses Extremities: No Clubbing, No Cyanosis, Normal Pulses, No Tenderness/Swelling, Other (trace pedal edema) Skin: No Rashes, No Breakdown, No Significant Lesion Neuro: Normal Gait, Normal Speech, Strength at 5/5 X4 Ext, Normal Tone, Sensation Intact Psych/Mental Status: Mental Status NL, Mood NL Results Lab Laboratory Tests 04/22/18 05:27 A/P-Cardiology Admission Diagnosis Anasarca Congestive heart failure Chronic atrial fibrillation Hypertension Assessment/Plan Fluid overload, better, I will stop Aldactone and decrease Lasix to once daily, Ok for discharge from cardiology standpoint Congestive heart failure, acute left ventricular systolic dysfunction, left ventricular systolic function has deteriorated, ejection fraction 25-30 percent , continue on Entresto on discharge Pulmonary hypertension, worsening PA pressure, continue with diuretics and monitor tolerance and response Coronary artery disease, cardiac catheterization done on 08/20/2013 and repeated on September 12, 2017 showing mild coronary artery disease nonobstructive disease. Continue to monitor Nausea and dry heaves, patient has been having these symptoms since her cholecystectomy in December 2017. Managed by primary care team History of nonsustained V. tach status post ablation approximately 5 years ago. Status post Linq implantation, maintained on mexiletine, continue to monitor Atrial fib/flutter, history of extensive ablation in [address] Gallegos. Has been intolerant to multiple medications including Tykosin, flecainide, Propafenone and Multaq. Patient was intolerant to amiodarone. She has been seeing Dr. Cole for management. Maintained on Coumadin. Coumadin currently on hold. History of emergent cholecystectomy as well as repair of the liver bleed by Dr. Moran. Sick sinus syndrome, symptomatically bradycardia with heart rate in the 30s, status post dual-chamber pacemaker implantation , using [employer] DR , serial number [id number],patient scheduled for Bi-V implantations later this week. She will take one dose of Coumadin today then hold for the procedure on Hypertension-controlled. Continue to monitor blood pressure/heart rate. Hyperlipidemia, Lipid profile was done on September 12, 2017 showing total cholesterol 93, triglyceride 129, HDL 23, LDL 50, I will hold statin for now Gastroesophageal reflux managed by primary care physician COPD, using C Pap at night, followed by primary care physician. Carotid ultrasound showing no significant stenosis done in September 2016. Continue to monitor. Depression Clinical Quality Measures DVT/VTE Risk/Contraindication: Risk Factor Score Per Nursin RFS Level Per Nursing on Admit: 3=High ELISE RIDER MD Apr 22, 2018 09:13
[2018-04-22] MEDS: SACUBITRIL/VALSARTAN 24/26 MG (ENTRESTO) TABLET PO SCH (09:53)
[2018-04-22 12:00] VITALS: BP 106/50
--- NOTE | 2018-04-22 12:45 | Discharge Inst-Cardiology ---
Discharge Inst-Cardiac Discharge Medications New, Converted or Re-Newed RX: Transmitted to Pharmacy Patient Instructions Patient Instructions: Fwup with Dr. Daily 2 weeks from Keep appointment with Dr. Cole for this Hold coumadin until after procedure by Dr. Cole Activity & Diet Discharge Diet: Cardiac Diet Activity as Tolerated: Yes Orders-Post D/C & Referrals Pneu Vac Indicated: Yes FARHAT DAILY DO Apr 22, 2018 12:45 pm
[2018-04-22 13:30] VITALS: BP 106/50
--- OUTSIDE RECORDS SUMMARY | 2018-04-24 14:47 | XMS REPORT | Encounter Summary ---
Author Author [facility] Organization [facility] Address Unknown Phone Unavailable Care Team Providers Care Waffle Machine Operator Name Role Phone Nelia Jules MD Unavailable Aubrey Ball MD PCP Jori Gallegos MD [address] RN Unavailable Unavailable Clarissa Minor [employer] ATTORNEY Unavailable Reason for Visit * Reason Comments Lab Results INR 2.6 , Dr Hewitt manages Encounter Details Date Type Department Care Team Description 04/01/2018 Documentation Cardiovascular Medicine Alix Blackwood RN Lab Results (INR 2.6 , [id number] Hewitt manages) [place] [id number] Social History Tobacco Use Types [...]
--- OUTSIDE RECORDS SUMMARY | 2018-04-24 14:47 | XMS REPORT | Clinical Summary ---
Author Author [facility] Organization [facility] Address Unknown Phone Unavailable Care Team Providers Care Resawyer Name Role Phone PCP Unavailable Allergies Not [...]
--- OUTSIDE RECORDS SUMMARY | 2018-04-24 14:47 | XMS REPORT | Clinical Summary ---
Author Author [facility] Organization [facility] Address Unknown Phone Unavailable Care Team Providers Care Vice President Compliance Name Role Phone Nelia Jules MD Unavailable Aubrey Ball MD PCP Jori Gallegos MD [address] Alejandro RN Unavailable Unavailable Clarissa Minor NONFARM ANIMAL CARETAKER Unavailable Source Comments Some departments are not documenting in the electronic medical record. If you do not see the information that you expected, contact Release of Information in the Health Information Management department at [phone] for further assistance in locating additional records.[facility] Allergies Active Allergy Reactions Severity Noted [...] showed no obstructive disease. She has a IAYIF4GBGv score of 2--Female, HTN. Please refer to [...] the last 2-[address] Hewitt, in [place], did a CARDIAC CATH 08/2013 and her [...] Atrial fibrillation (HCC) 07/07/2014 Overview: 05/13/14: VICKIE: [facility]: EF 50% Echogenic density was noted [...] Ventricular tachycardia (HCC) 06/15/2014 Overview: 08/20/13: Cath: [facility]: EF 60% dominant circumflex system with [...] poorly Atrial flutter (HCC) 11/07/2010 Overview: SEI setljbtr-TBF-2/11 CHADS2=one (HTN) Fall 2010-no flutteror AF-OK to DC Pradaxa L ast Assessment & Plan: No recurrence since ablation. 48 hour holter on 08/16/13 was negative for any atrial arrhythmias. Continues to be on daily aspirin therapy. Hyperlipidemia 09/22/2010 Last Assessment & Plan: Continues to be managed by Dr. Hewitt's office. Atypical chest pain Overview: 07/2007: [facility] [place] [facility]: no significant CAD. 20% mid circ. EF-wnl. RCA-spasm during cath. 05/18/2010: [facility] [place] [facility]: No obstructive CAD, normal LV size/function. EF 60% HTN (hypertension) Last Assessment & Plan: Well controlled on current therapy. Palpitations Overview: 07/2007 - Complete echocardiogram: Ejection fraction 60%. Mild left ventricular hypertrophy. Trace MR. Mild TR. 30 day event monitor showed Atrial Tach at 140-150bpm for 2-4 sec.. Toprol 25mg XL qd. 08/18/13: MPI: [facility]: EF 59%. Fair exercise tolerance. Frequent VPDs, ventricular bigeminy and ventricular couplets noted at rest and during recovery phase. Non diagnostic ECG changes with exercise. Reversible ischemia involving the whole anterior wall and anterior apex. 01/06/14: Echo: [facility]: EF 60% bradycardia in 40's for procedure. Left atrial dilatation. Moderate mitral regurgitation. Moderate tricuspid regurgitation. Estimated PAP of 40 mmHg Resolved Problems Problem Noted Date Resolved Date Cardiac pacemaker in situ 11/20/2016 11/22/2016 Encounters Date Type Specialty Care Team Description 04/01/2018 Documentation Cardiology Alix Blackwood RN Lab Results ( INR 2.6 , Dr Hewitt manages) 03/28/2018 [facility] Cardiology Jori Gallegos MD Encounter 03/04/2018 Telephone Cardiology Anh Lopez Remote Monitoring Transferred (Released from [employer]) 03/02/2018 Telephone Cardiology Minerva Hernandez RN Remote Monitoring Transferred (To [facility] in [place], [place]) 02/25/2018 Hospital Cardiology Jori Gallegos MD Encounter 02/18/2018 Anticoagulation Cardiology Leilani Amaral RN Anticoagulation (INR 2.7 - Dr. Hewitt's office manages INR) 02/06/2018 Documentation Cardiology Ellen Springer RN Results ( INR 2.7 -- Dr. Hewitt's office manages ) 01/25/2018 Hospital Cardiology Jori Gallegos MD Encounter from Last 3 Months Family History Medical History Relation Name Comments Coronary Artery Disease Brother Coronary Artery Disease Brother Heart Attack Brother Arrhythmia Brother atrial flutter Coronary Artery Disease Father Heart Attack Father Stroke Mother Relation Name Status Comments Brother Alive Brother Alive Brother Brother Father [place] (Age 47) Mother Social History Tobacco Use [...] situ procedure are in the results section. from Last 3 Months Results * PROTIME INR (PT) (04/01/2018) Only the most recent of 2 results [...] @ [facility] OTHER OUTSIDE LAB in [place], [place] Generator Serial # [id number] OTHER OUTSIDE LAB EP Device Followed by [...] OTHER OUTSIDE LAB Duration Remote Monitor Serial# [id number] OTHER OUTSIDE LAB Generator Weigher And Grader Medtronic OTHER OUTSIDE LAB Generator Investigational No OTHER OUTSIDE LAB Wireless Generator No OTHER OUTSIDE LAB Device Type DDD-PM OTHER OUTSIDE LAB EP Device Followed By LONNIE OTHER OUTSIDE LAB Device [place] [facility] OTHER OUTSIDE LAB Transmitter Compatible On AntiCoag Date 2,011 OTHER OUTSIDE LAB Known Diagnosed AFib Yes OTHER OUTSIDE LAB On Anticoagulation Yes OTHER OUTSIDE LAB MIGUEL/EOL Indicator 2.83V OTHER OUTSIDE LAB Atrial Lead Weigher And Grader Medtronic OTHER OUTSIDE LAB Atrial Lead Model # 5076 CapSureFix Novus OTHER OUTSIDE LAB Atrial Lead Serial # [id number] OTHER OUTSIDE LAB Atrial Lead Implant Date 11/09/16 OTHER OUTSIDE LAB RV Lead Weigher And Grader Medtronic OTHER OUTSIDE LAB RV Lead Model # 4076 capsurefix OTHER OUTSIDE LAB RV Lead Serial # [id number] OTHER OUTSIDE LAB RV Lead Implant Date [...] @ [facility] OTHER OUTSIDE LAB in [place], [place] Generator Serial # [id number] OTHER OUTSIDE LAB EP Device Followed by [...] OTHER OUTSIDE LAB Duration Remote Monitor Serial# [id number] OTHER OUTSIDE LAB Generator Weigher And Grader Medtronic OTHER OUTSIDE LAB Generator Investigational No OTHER OUTSIDE LAB Wireless Generator No OTHER OUTSIDE LAB Device Type DDD-PM OTHER OUTSIDE LAB EP Device Followed By LONNIE OTHER OUTSIDE LAB Device [place] [facility] OTHER OUTSIDE LAB Transmitter Compatible On AntiCoag Date 2,011 OTHER OUTSIDE LAB Known Diagnosed AFib Yes OTHER OUTSIDE LAB On Anticoagulation Yes OTHER OUTSIDE LAB MIGUEL/EOL Indicator 2.83V OTHER OUTSIDE LAB Atrial Lead Weigher And Grader Medtronic OTHER OUTSIDE LAB Atrial Lead Model # 5076 CapSureFix Novus OTHER OUTSIDE LAB Atrial Lead Serial # [id number] OTHER OUTSIDE LAB Atrial Lead Implant Date 11/09/16 OTHER OUTSIDE LAB RV Lead Weigher And Grader Medtronic OTHER OUTSIDE LAB RV Lead Model # 4076 capsurefix OTHER OUTSIDE LAB RV Lead Serial # [id number] OTHER OUTSIDE LAB RV Lead Implant Date [...] @ [facility] OTHER OUTSIDE LAB in [place], [place] Generator Serial # [id number] OTHER OUTSIDE LAB EP Device Followed by [...] OTHER OUTSIDE LAB Duration Remote Monitor Serial# [id number] OTHER OUTSIDE LAB Generator Weigher And Grader Medtronic OTHER OUTSIDE LAB Generator Investigational No OTHER OUTSIDE LAB Wireless Generator No OTHER OUTSIDE LAB Device Type DDD-PM OTHER OUTSIDE LAB EP Device Followed By MAC OTHER OUTSIDE LAB Device [place] [facility] OTHER OUTSIDE LAB Transmitter Compatible On AntiCoag Date 2,011 OTHER OUTSIDE LAB Known Diagnosed AFib Yes OTHER OUTSIDE LAB On Anticoagulation Yes OTHER OUTSIDE LAB MIGUEL/EOL Indicator 2.83V OTHER OUTSIDE LAB Atrial Lead Weigher And Grader Medtronic OTHER OUTSIDE LAB Atrial Lead Model # 5076 CapSureFix Novus OTHER OUTSIDE LAB Atrial Lead Serial # [id number] OTHER OUTSIDE LAB Atrial Lead Implant Date 11/09/16 OTHER OUTSIDE LAB RV Lead Weigher And Grader Medtronic OTHER OUTSIDE LAB RV Lead Model # 4076 capsurefix OTHER OUTSIDE LAB RV Lead Serial # [id number] OTHER OUTSIDE LAB RV Lead Implant Date [...]
--- OUTSIDE RECORDS SUMMARY | 2018-04-24 14:48 | XMS REPORT | Encounter Summary ---
Author Author [facility] Organization [facility] Address Unknown Phone Unavailable Care Team Providers Care High School Foreign Language Tutor Name Role Phone Nelia Jules MD Unavailable Aubrey Ball MD PCP Jori Gallegos MD [address] RN Unavailable Unavailable Clarissa Minor ROCK LOADER Unavailable Reason for Visit * Reason Comments Anticoagulation INR 2.7 - Dr. Hewitt's office manages INR Encounter Details Date Type Department Care Team Description 02/18/2018 Anticoagulation Cardiovascular Medicine Leilani Amaral RN Anticoagulation (INR 2.7 [address] - Dr[place] [address] manages INR) [phone] Social History Tobacco Use Types Packs/Day Years [...]
--- OUTSIDE RECORDS SUMMARY | 2018-04-24 14:48 | XMS REPORT | Encounter Summary ---
Author Author [facility] Organization [facility] Address Unknown Phone Unavailable Care Team Providers Care Retail Brand Ambassador Name Role Phone Nelia Jules MD Unavailable Aubrey Ball MD PCP Jori Gallegos MD [address] RN Unavailable Unavailable Clarissa Minor TRICOT KNITTING MACHINE OPERATOR Unavailable Encounter Details Date Type Department Care Team Description 02/25/2018 [facility] Cardiovascular Medicine Jori Gallegos MD Encounter Remote Device Check [address] [facility] [phone] [address] [place] [address] [phone] Social History Tobacco Use Types Packs/Day Years [...] OTHER OUTSIDE LAB Device Implanted By Dr. lLuvia Hewitt @ [facility] OTHER OUTSIDE LAB in [place], [place] Generator Serial # [id number] OTHER OUTSIDE LAB EP Device Followed by [...] OTHER OUTSIDE LAB Duration Remote Monitor Serial# [id number] OTHER OUTSIDE LAB Generator Personnel Psychologist Medtronic OTHER OUTSIDE LAB Generator Investigational No OTHER OUTSIDE LAB Wireless Generator No OTHER OUTSIDE LAB Device Type DDD-PM OTHER OUTSIDE LAB EP Device Followed By MAC OTHER OUTSIDE LAB Device [place] [facility] OTHER OUTSIDE LAB Transmitter Compatible On AntiCoag Date 2,011 OTHER OUTSIDE LAB Known Diagnosed AFib Yes OTHER OUTSIDE LAB On Anticoagulation Yes OTHER OUTSIDE LAB MIGUEL/EOL Indicator 2.83V OTHER OUTSIDE LAB Atrial Lead Personnel Psychologist Medtronic OTHER OUTSIDE LAB Atrial Lead Model # 5076 CapSureFix Novus OTHER OUTSIDE LAB Atrial Lead Serial # [id number] OTHER OUTSIDE LAB Atrial Lead Implant Date 11/09/16 OTHER OUTSIDE LAB RV Lead Personnel Psychologist Medtronic OTHER OUTSIDE LAB RV Lead Model # 4076 capsurefix OTHER OUTSIDE LAB RV Lead Serial # [id number] OTHER OUTSIDE LAB RV Lead Implant Date [...]
--- OUTSIDE RECORDS SUMMARY | 2018-04-24 14:48 | XMS REPORT | Encounter Summary ---
Author Author [facility] Organization [facility] Address Unknown Phone Unavailable Care Team Providers Care Staff Submarine Warfare Officer Name Role Phone Nelia Jules MD Unavailable Aubrey Ball MD PCP Jori Gallegos MD [address] RN Unavailable Unavailable Clarissa Minor BOTTLING EQUIPMENT SALES REPRESENTATIVE Unavailable Reason for Visit * Reason Comments Remote Monitoring To [facility] in [place], [place] Transferred Encounter Details Date Type Department Care Team Description 03/02/2018 Telephone Cardiovascular Medicine Minerva Hernandez RN Remote Monitoring [place] [address] Transferred (To Via [address] [place] [address] in [place], [place] [address]) [phone] Social History Tobacco Use Types Packs/Day Years [...] a request to transfer Carelink service to [facility] in [place], [place], which is where her primary substation operator apprentice Dr. Hewitt is. Carelink was released. Dr. Hewitt also manages her INR. in this encounter Plan of Treatment Not on fileas of this encounter Visit Diagnoses Not on filein this encounter
--- OUTSIDE RECORDS SUMMARY | 2018-04-24 14:48 | XMS REPORT | Encounter Summary ---
Author Author [facility] Organization [facility] Address Unknown Phone Unavailable Care Team Providers Care Insurance Claims Assistant Name Role Phone Nelia Jlues MD Unavailable Aubrey Ball MD PCP Jori Gallegos MD [address] RN Unavailable Unavailable Clarissa Minor MONEY EXAMINER Unavailable Reason for Visit * Reason Comments Results INR 2.7 -- Dr. Hewitt's office manages Encounter Details Date Type Department Care Team Description 02/06/2018 Documentation Cardiovascular Medicine Ellen Springer RN Results (INR 2.7 -- Dr. Elan Nickerson [place] [address] Marcelina's office manages ) [facility] [address] [address] [place] [address] Social History Tobacco Use Types [...]
--- OUTSIDE RECORDS SUMMARY | 2018-04-24 14:48 | XMS REPORT | Encounter Summary ---
Author Author [facility] Organization [facility] Address Unknown Phone Unavailable Care Team Providers Care Parent Partner Name Role Phone Nelia Jules MD Unavailable Aubrey Ball MD PCP Jori Gallegos MD [address] RN Unavailable Unavailable Clarissa Minor ELECTRICAL & INSTRUMENTATION SUPERVISOR Unavailable Reason for Visit * Reason Comments Remote Monitoring Released from [employer] Transferred Encounter Details Date Type Department Care Team Description 03/04/2018 Telephone Cardiovascular Medicine Anh Lopez Remote Monitoring Remote Device Check Transferred (Released [phone] from [employer]) Social History Tobacco Use Types Packs/Day Years [...]
--- OUTSIDE RECORDS SUMMARY | 2018-04-24 14:48 | XMS REPORT | Encounter Summary ---
Author Author [facility] Organization [facility] Address Unknown Phone Unavailable Care Team Providers Care Topper Press Operator Name Role Phone Nelia Jules MD Unavailable Aubrey Ball MD PCP Jori Gallegos MD [address] RN Unavailable Unavailable Clarissa Minor NURSE SPECIAL Unavailable Encounter Details Date Type Department Care Team Description 03/28/2018 [facility] Cardiovascular Medicine Jori Gallegos MD Encounter Remote Device Check [address] [facility] [phone] [address] [place] [address] [phone] Social History Tobacco Use Types Packs/Day Years [...] @ [facility] OTHER OUTSIDE LAB in [place], [place] Generator Serial # [id number] OTHER OUTSIDE LAB EP Device Followed by [...] OTHER OUTSIDE LAB Duration Remote Monitor Serial# [id number] OTHER OUTSIDE LAB Generator Eight Arm Operator Medtronic OTHER OUTSIDE LAB Generator Investigational No OTHER OUTSIDE LAB Wireless Generator No OTHER OUTSIDE LAB Device Type DDD-PM OTHER OUTSIDE LAB EP Device Followed By MAC OTHER OUTSIDE LAB Device [place] [facility] OTHER OUTSIDE LAB Transmitter Compatible On AntiCoag Date 2,011 OTHER OUTSIDE LAB Known Diagnosed AFib Yes OTHER OUTSIDE LAB On Anticoagulation Yes OTHER OUTSIDE LAB MIGUEL/EOL Indicator 2.83V OTHER OUTSIDE LAB Atrial Lead Eight Arm Operator Medtronic OTHER OUTSIDE LAB Atrial Lead Model # 5076 CapSureFix Novus OTHER OUTSIDE LAB Atrial Lead Serial # [id number] OTHER OUTSIDE LAB Atrial Lead Implant Date 11/09/16 OTHER OUTSIDE LAB RV Lead Eight Arm Operator Medtronic OTHER OUTSIDE LAB RV Lead Model # 4076 capsurefix OTHER OUTSIDE LAB RV Lead Serial # [id number] OTHER OUTSIDE LAB RV Lead Implant Date [...]
--- OUTSIDE RECORDS SUMMARY | 2018-04-24 14:48 | XMS REPORT | Encounter Summary ---
Author Author [facility] Organization [facility] Address Unknown Phone Unavailable Care Team Providers Care Community Representative Name Role Phone Nelia Jules MD Unavailable Aubrey Ball MD PCP Jori Gallegos MD [address] RN Unavailable Unavailable Clarissa Minor SALES SERVICE ROUTE MANAGER Unavailable Encounter Details Date Type Department Care Team Description 01/25/2018 [facility] Cardiovascular Medicine Jori Gallegos MD Encounter Remote Device Check [address] [facility] [phone] [address] [place] [address] [phone] Social History Tobacco Use Types Packs/Day Years [...] @ [facility] OTHER OUTSIDE LAB in [place], [place] Generator Serial # [id number] OTHER OUTSIDE LAB EP Device Followed by [...] OTHER OUTSIDE LAB Duration Remote Monitor Serial# [id number] OTHER OUTSIDE LAB Generator Scientific Research Associate Medtronic OTHER OUTSIDE LAB Generator Investigational No OTHER OUTSIDE LAB Wireless Generator No OTHER OUTSIDE LAB Device Type DDD-PM OTHER OUTSIDE LAB EP Device Followed By MAC OTHER OUTSIDE LAB Device [place] [facility] OTHER OUTSIDE LAB Transmitter Compatible On AntiCoag Date 2,011 OTHER OUTSIDE LAB Known Diagnosed AFib Yes OTHER OUTSIDE LAB On Anticoagulation Yes OTHER OUTSIDE LAB MIGUEL/EOL Indicator 2.83V OTHER OUTSIDE LAB Atrial Lead Scientific Research Associate Medtronic OTHER OUTSIDE LAB Atrial Lead Model # 5076 CapSureFix Novus OTHER OUTSIDE LAB Atrial Lead Serial # [id number] OTHER OUTSIDE LAB Atrial Lead Implant Date 11/09/16 OTHER OUTSIDE LAB RV Lead Scientific Research Associate Medtronic OTHER OUTSIDE LAB RV Lead Model # 4076 capsurefix OTHER OUTSIDE LAB RV Lead Serial # [id number] OTHER OUTSIDE LAB RV Lead Implant Date [...]
[2018-04-26] MEDS ORDERED: CEPH-507 PO (13:56)
== END 2018-04-22 13:30 | disposition home or self-care (01) | DRG 292 ==
LOC: EDSTATUS 12:32 → 4TH 17:30 → UNDOADMOB 17:30 → 4TH 17:42 → UNDODISOB 04-22 13:30
PROVIDERS: ADMIT Family Medicine; ATTEND Family Medicine
DX: I11.0 Hypertensive heart disease with heart failure (principal); I50.23 Acute on chronic systolic (congestive) heart failure; I42.9 Cardiomyopathy, unspecified; I48.2 Chronic atrial fibrillation; I48.92 Unspecified atrial flutter; I27.20 Pulmonary hypertension, unspecified; I25.10 Atherosclerotic heart disease of native coronary artery without angina pectoris; J44.9 Chronic obstructive pulmonary disease, unspecified; E87.6 Hypokalemia; E83.42 Hypomagnesemia; I49.3 Ventricular premature depolarization; G47.33 Obstructive sleep apnea (adult) (pediatric); D64.9 Anemia, unspecified; K21.9 Gastro-esophageal reflux disease without esophagitis; F41.9 Anxiety disorder, unspecified; F32.9 Major depressive disorder, single episode, unspecified; Z85.51 Personal history of malignant neoplasm of bladder; Z23 Encounter for immunization
CPT/HCPCS: 36415; 76705; 80048; 80053; 81000; 83735; 83880; 85025; 85027; 85610; 90686; 93306

== ENCOUNTER → 2018-04-17 | Outpatient (CLI) | payer MEDICARE, OTHER ==
[~2018-04-17] MED LIST changes: +ACET-2267 PO; +IOHEXOL 350 MG/ML 100 ML (OMNIPAQUE 350) VIAL IV ONE; +NS 250 ML (IVPB) BAG IV ONE; +ONDA4TAB11 PO; +RECEIVED CONTRAST (Hold Metformin) IV SCH; +ROPI1TAB2 PO; +TEMA15CA PO
--- NOTE | 2018-04-17 13:01 | Diagnostic Imaging Report ---
PROCEDURE: CT abdomen and pelvis with and without contrast. TECHNIQUE: Precontrast acquisitions were acquired through the abdomen and pelvis. Multiple contiguous axial images were obtained through the abdomen and pelvis after the administration of intravenous contrast. INDICATION: Weight gain, abdominal distention, pain, tightness. Edema. CORRELATION STUDY: 02/22/2018. FINDINGS: There has been development of a small left pleural effusion layering dependently and trace right pleural effusion. Mildly prominent interstitial markings. No definitive basilar infiltrate. Heart size is enlarged with presence of pacemaker leads. There is reflux of contrast into the inferior vena cava and hepatic veins. There has been development of abdominal and pelvic ascites as well as generalized subcutaneous edema. Liver is borderline enlarged with heterogeneous attenuation, could be reflective of underlying edema. No definitive focal lesion. Gallbladder is absent. Small amount of fluid in the gallbladder fossa. No significant bile duct dilatation. Spleen is normal in size. Pancreas and adrenal glands are unremarkable. Kidneys with normal enhancement. No hydronephrosis or obstruction. Abdominal aorta is normal in contour. Major branches are patent at their origins. Stomach is collapsed. There is suggestion of diffuse wall thickening. The small bowel is nondistended. Colon with diverticulosis but without definitive evidence for acute diverticulitis. However, inflammation of the gastrointestinal tract would be difficult to exclude given the underlying ascites. No free air. Normal appendix appears to be located in right lower quadrant. Urinary bladder is unremarkable. Uterus is absent. There is presence of pelvic fluid. There is calcific density in the posterior left hemipelvis. While nonspecific, the possibility of a tooth associated with germ cell tumor would be difficult to exclude. No definitive fat-containing mass. IMPRESSION: 1. Development of abdominal and pelvic ascites as well as generalized anasarca. Bilateral pleural effusions, left greater than right. Features are nonspecific, could be owing to perhaps diminished cardiac function. Other process including underlying malignancy would be difficult to exclude. 2. Borderline hepatomegaly with likely edema, could be owing to hepatic congestion. 3. Colonic diverticulosis. No definite evidence for acute diverticulitis. However, inflammatory changes of the gastrointestinal tract would be difficult to exclude given the presence of the ascites. Dictated by: Dictated on workstation # [id number]
== END ==
LOC: RAD 10:42
PROVIDERS: ATTEND Nurse Practitioner Family
DX: K57.30 Diverticulosis of large intestine without perforation or abscess without bleeding (principal); R16.0 Hepatomegaly, not elsewhere classified; R18.8 Other ascites; J90 Pleural effusion, not elsewhere classified; Z90.710 Acquired absence of both cervix and uterus; Z95.818 Presence of other cardiac implants and grafts
CPT/HCPCS: 74178

== ENCOUNTER 2018-04-25 08:08 | Day surgery (SDC) | payer MEDICARE, OTHER ==
[~2018-04-25] VITALS: Ht 149.9 cm; Wt 60.2 kg
[~2018-04-25 08:08] MED LIST changes: +ACET-2267 PO; +ONDA4TAB11 PO; +ROPI1TAB2 PO; +SACU1TAB PO; +TEMA15CA PO
[2018-04-25] MEDS ORDERED: ceFAZolin 1,000 MG/10 ML (ANCEF) VIAL ONE ×2 (08:21→21:09)
[2018-04-25] MEDS ORDERED: LIDOCAINE 1% INJ 20 ML 20 ML VIAL ONE ×2 (08:21→14:29)
[2018-04-25] MEDS ORDERED: HEParin (CATH LAB) 1,000 ML IV ONE (08:21)
[2018-04-25] MEDS ORDERED: NS IV 1000 ML 1,000 ML ONE (08:21)
[2018-04-25] MEDS ORDERED: NS IV 1000 ML 1,000 ML IV SCH ×2 (08:35→15:08)
[2018-04-25] MEDS ORDERED: BACITRACIN INJECTION 50,000 UNIT, SODIUM CHLORIDE 0.9% IRRIGATIO 500 ML IR ONE ×2 (08:45)
[2018-04-25] MEDS ORDERED: ceFAZolin 1,000 MG/10 ML (ANCEF) VIAL IV ONE (08:45)
[2018-04-25 09:06] LABS: HEMOGLOBIN 11.4 G/DL (11.5-16.0); MEAN PLATELET VOLUME 9.8 FL (7.4-10.4); RED BLOOD COUNT 5.31 10^6/uL (4.35-5.85); RED CELL DISTRIBUTION WIDTH 21.1 % (10.0-14.5); WHITE BLOOD COUNT 11.1 10^3/uL (4.3-11.0)
[2018-04-25 09:15] VITALS: BP 108/77
[2018-04-25] MEDS ORDERED: BACITRACIN 50000 UNITS/500 ML NS IR ONE ×2 (09:15)
[2018-04-25 09:20] LABS: INR 1.2 (0.8-1.4); PROTHROMBIN TIME PATIENT 15.4 SEC (12.2-14.7)
[2018-04-25 09:28] LABS: ALANINE AMINOTRANSFERASE 22 U/L (0-55); ALBUMIN 4.6 GM/DL (3.2-4.5); ALKALINE PHOSPHATASE 202 U/L (40-136); BILIRUBIN,TOTAL 2.6 MG/DL (0.1-1.0); BUN/CREATININE RATIO 19; CALCIUM 9.5 MG/DL (8.5-10.1); CARBON DIOXIDE 26 MMOL/L (21-32); CHLORIDE 98 MMOL/L (98-107); CREATININE SERUM 1.37 MG/DL (0.60-1.30); GFR ESTIMATED 39; GLUCOSE 91 MG/DL (70-105); POTASSIUM 3.7 MMOL/L (3.6-5.0); SODIUM 138 MMOL/L (135-145); TOTAL PROTEIN 8.3 GM/DL (6.4-8.2)
--- OUTSIDE RECORDS SUMMARY | 2018-04-25 09:29 | XMS REPORT | Clinical Summary ---
Author Author [facility] Organization [facility] Address Unknown Phone Unavailable Care Team Providers Care Dice Table Operator Name Role Phone PCP Unavailable Allergies Not [...]
--- OUTSIDE RECORDS SUMMARY | 2018-04-25 09:30 | XMS REPORT | Encounter Summary ---
Author Author [facility] Organization [facility] Address Unknown Phone Unavailable Care Team Providers Care Sweatband Decorating Machine Operator Name Role Phone Nelia Jules MD Unavailable Aubrey Ball MD PCP Jori Gallegos MD [address] RN Unavailable Unavailable Clarissa Minor CIVIL ENGINEERING MANAGER Unavailable Encounter Details Date Type Department Care Team Description 03/28/2018 [facility] Cardiovascular Medicine Jori Gallegos MD Encounter Remote Device Check [address] [facility] [phone] [address] [place] [address] [phone] Social History Tobacco Use Types Packs/Day Years [...] @ [facility] OTHER OUTSIDE LAB in [place], [place] Generator Serial # [id number] OTHER OUTSIDE LAB EP Device Followed by [...] OTHER OUTSIDE LAB Duration Remote Monitor Serial# [id number] OTHER OUTSIDE LAB Generator Electrical Hardware Engineer Medtronic OTHER OUTSIDE LAB Generator Investigational No OTHER OUTSIDE LAB Wireless Generator No OTHER OUTSIDE LAB Device Type DDD-PM OTHER OUTSIDE LAB EP Device Followed By MAC OTHER OUTSIDE LAB Device [place] [facility] OTHER OUTSIDE LAB Transmitter Compatible On AntiCoag Date 2,011 OTHER OUTSIDE LAB Known Diagnosed AFib Yes OTHER OUTSIDE LAB On Anticoagulation Yes OTHER OUTSIDE LAB MIGUEL/EOL Indicator 2.83V OTHER OUTSIDE LAB Atrial Lead Electrical Hardware Engineer Medtronic OTHER OUTSIDE LAB Atrial Lead Model # 5076 CapSureFix Novus OTHER OUTSIDE LAB Atrial Lead Serial # [id number] OTHER OUTSIDE LAB Atrial Lead Implant Date 11/09/16 OTHER OUTSIDE LAB RV Lead Electrical Hardware Engineer Medtronic OTHER OUTSIDE LAB RV Lead Model # 4076 capsurefix OTHER OUTSIDE LAB RV Lead Serial # [id number] OTHER OUTSIDE LAB RV Lead Implant Date [...]
--- OUTSIDE RECORDS SUMMARY | 2018-04-25 09:30 | XMS REPORT | Encounter Summary ---
Author Author [facility] Organization [facility] Address Unknown Phone Unavailable Care Team Providers Care Soap Drier Operator Name Role Phone Nelia Jules MD Unavailable Aubrey Ball MD PCP Jori Gallegos MD [address] RN Unavailable Unavailable Clarissa Minor HAMMER DRIVER Unavailable Reason for Visit * Reason Comments Lab Results INR 2.6 , Dr Hewitt manages Encounter Details Date Type Department Care Team Description 04/01/2018 Documentation Cardiovascular Medicine Alix Blackwood RN Lab Results (INR 2.6 , [address] Hewitt manages) [place] [address] Social History Tobacco Use Types [...]
--- OUTSIDE RECORDS SUMMARY | 2018-04-25 09:30 | XMS REPORT | Encounter Summary ---
Author Author [facility] Organization [facility] Address Unknown Phone Unavailable Care Team Providers Care Canary Breeder Name Role Phone Nelia Jules MD Unavailable Aubrey Ball MD PCP Jori Gallegos MD [address] RN Unavailable Unavailable Clarissa Minor PERSONAL CARER Unavailable Reason for Visit * Reason Comments Remote Monitoring To [facility] in [place], [place] Transferred Encounter Details Date Type Department Care Team Description 03/02/2018 Telephone Cardiovascular Medicine Mnierva Hernandez RN Remote Monitoring [place] [address] Transferred (To Via [address] [place] [address] in [place], [place] [address]) [phone] Social History Tobacco Use Types Packs/Day Years [...] a request to transfer Carelink service to [facility] in [place], [place], which is where her primary costuming supervisor Dr. Hewitt is. Carelink was released. Dr. Hewitt also manages her INR. in this encounter Plan of Treatment Not on fileas of this encounter Visit Diagnoses Not on filein this encounter
--- OUTSIDE RECORDS SUMMARY | 2018-04-25 09:30 | XMS REPORT | Clinical Summary ---
Author Author [facility] Organization [facility] Address Unknown Phone Unavailable Care Team Providers Care Boiler Fireman Name Role Phone Nelia Jules MD Unavailable Aubrey Ball MD PCP Jori Gallegos MD [address] Tati Alejandro RN Unavailable Unavailable Clarissa Minor RADIAL DRILL OPERATOR FOR PLASTIC Unavailable Source Comments Some departments are not documenting in the electronic medical record. If you do not see the information that you expected, contact Release of Information in the Health Information Management department at [phone] for further assistance in locating additional records.[facility] Allergies Active Allergy Reactions Severity Noted [...] showed no obstructive disease. She has a [id number] score of 2--Female, HTN. Please refer to [...] the last 2-[address] Hewitt, in [place], did a CARDIAC CATH 08/2013 and her [...] Atrial fibrillation (HCC) 07/07/2014 Overview: 05/13/14: VICKIE: [facility]: EF 50% Echogenic density was noted in [...] Ventricular tachycardia (HCC) 06/15/2014 Overview: 08/20/13: Cath: [facility]: EF 60% dominant circumflex system with no [...] poorly Atrial flutter (HCC) 11/07/2010 Overview: SEI [id number]/11 CHADS2=one (HTN) Fall 2010-no flutteror AF-OK to DC Pradaxa L ast Assessment & Plan: No recurrence since ablation. 48 hour holter on 08/16/13 was negative for any atrial arrhythmias. Continues to be on daily aspirin therapy. Hyperlipidemia 09/22/2010 Last Assessment & Plan: Continues to be managed by Dr. Hewitt's office. Atypical chest pain Overview: 07/2007: [facility] @ [facility]: no significant CAD. 20% mid circ. EF-wnl. RCA-spasm during cath. 05/18/2010: [facility] @ [facility]: No obstructive CAD, normal LV size/function. EF 60% HTN (hypertension) Last Assessment & Plan: Well controlled on current therapy. Palpitations Overview: 07/2007 - Complete echocardiogram: Ejection fraction 60%. Mild left ventricular hypertrophy. Trace MR. Mild TR. 30 day event monitor showed Atrial Tach at 140-150bpm for 2-4 sec.. Toprol 25mg XL qd. 08/18/13: MPI: [facility]: EF 59%. Fair exercise tolerance. Frequent VPDs, ventricular bigeminy and ventricular couplets noted at rest and during recovery phase. Non diagnostic ECG changes with exercise. Reversible ischemia involving the whole anterior wall and anterior apex. 01/06/14: Echo: [facility]: EF 60% bradycardia in 40's for procedure. Left atrial dilatation. Moderate mitral regurgitation. Moderate tricuspid regurgitation. Estimated PAP of 40 mmHg Resolved Problems Problem Noted Date Resolved Date Cardiac pacemaker in situ 11/20/2016 11/22/2016 Encounters Date Type Specialty Care Team Description 04/01/2018 Documentation Cardiology Alix Blackwood RN Lab Results ( INR 2.6 , Dr Hewitt manages) 03/28/2018 [facility] Cardiology Jori Gallegos MD Encounter 03/04/2018 Telephone Cardiology Anh Lopez Remote Monitoring Transferred (Released from [employer]) 03/02/2018 Telephone Cardiology Minerva Hernandez RN Remote Monitoring Transferred (To [facility] in [place], [place]) 02/25/2018 Hospital Cardiology Jori Gallegos MD [...] Brother Alive Brother Alive Brother Brother Father [place] (Age 47) Mother Social History Tobacco Use [...] @ [facility] OTHER OUTSIDE LAB in [place], [place] Generator Serial # [id number] OTHER OUTSIDE LAB EP Device Followed by [...] OTHER OUTSIDE LAB Duration Remote Monitor Serial# [id number] OTHER OUTSIDE LAB Generator Systems Operator Medtronic OTHER OUTSIDE LAB Generator Investigational No OTHER OUTSIDE LAB Wireless Generator No OTHER OUTSIDE LAB Device Type DDD-PM OTHER OUTSIDE LAB EP Device Followed By LONNIE OTHER OUTSIDE LAB Device [place] [facility] OTHER OUTSIDE LAB Transmitter Compatible On AntiCoag Date 2,011 OTHER OUTSIDE LAB Known Diagnosed AFib Yes OTHER OUTSIDE LAB On Anticoagulation Yes OTHER OUTSIDE LAB MIGUEL/EOL Indicator 2.83V OTHER OUTSIDE LAB Atrial Lead Systems Operator Medtronic OTHER OUTSIDE LAB Atrial Lead Model # 5076 CapSureFix Novus OTHER OUTSIDE LAB Atrial Lead Serial # [id number] OTHER OUTSIDE LAB Atrial Lead Implant Date 11/09/16 OTHER OUTSIDE LAB RV Lead Systems Operator Medtronic OTHER OUTSIDE LAB RV Lead Model # 4076 capsurefix OTHER OUTSIDE LAB RV Lead Serial # [id number] OTHER OUTSIDE LAB RV Lead Implant Date [...] @ [facility] OTHER OUTSIDE LAB in [place], [place] Generator Serial # [id number] OTHER OUTSIDE LAB EP Device Followed by [...] OTHER OUTSIDE LAB Duration Remote Monitor Serial# [id number] OTHER OUTSIDE LAB Generator Systems Operator Medtronic OTHER OUTSIDE LAB Generator Investigational No OTHER OUTSIDE LAB Wireless Generator No OTHER OUTSIDE LAB Device Type DDD-PM OTHER OUTSIDE LAB EP Device Followed By LONNIE OTHER OUTSIDE LAB Device [place] [facility] OTHER OUTSIDE LAB Transmitter Compatible On AntiCoag Date 2,011 OTHER OUTSIDE LAB Known Diagnosed AFib Yes OTHER OUTSIDE LAB On Anticoagulation Yes OTHER OUTSIDE LAB MIGUEL/EOL Indicator 2.83V OTHER OUTSIDE LAB Atrial Lead Systems Operator Medtronic OTHER OUTSIDE LAB Atrial Lead Model # 5076 CapSureFix [employer] OTHER OUTSIDE LAB Atrial Lead Serial # [id number] OTHER OUTSIDE LAB Atrial Lead Implant Date 11/09/16 OTHER OUTSIDE LAB RV Lead Systems Operator Medtronic OTHER OUTSIDE LAB RV Lead Model # 4076 capsurefix OTHER OUTSIDE LAB RV Lead Serial # [id number] OTHER OUTSIDE LAB RV Lead Implant Date [...] @ [facility] OTHER OUTSIDE LAB in [place], [place] Generator Serial # [id number] OTHER OUTSIDE LAB EP Device Followed by [...] OTHER OUTSIDE LAB Duration Remote Monitor Serial# [id number] OTHER OUTSIDE LAB Generator Systems Operator Medtronic OTHER OUTSIDE LAB Generator Investigational No OTHER OUTSIDE LAB Wireless Generator No OTHER OUTSIDE LAB Device Type DDD-PM OTHER OUTSIDE LAB EP Device Followed By MAC OTHER OUTSIDE LAB Device [place] [facility] OTHER OUTSIDE LAB Transmitter Compatible On AntiCoag Date 2,011 OTHER OUTSIDE LAB Known Diagnosed AFib Yes OTHER OUTSIDE LAB On Anticoagulation Yes OTHER OUTSIDE LAB MIGUEL/EOL Indicator 2.83V OTHER OUTSIDE LAB Atrial Lead Systems Operator Medtronic OTHER OUTSIDE LAB Atrial Lead Model # 5076 CapSureFix [employer] OTHER OUTSIDE LAB Atrial Lead Serial # [id number] OTHER OUTSIDE LAB Atrial Lead Implant Date 11/09/16 OTHER OUTSIDE LAB RV Lead Systems Operator Medtronic OTHER OUTSIDE LAB RV Lead Model # 4076 capsurefix OTHER OUTSIDE LAB RV Lead Serial # [id number] OTHER OUTSIDE LAB RV Lead Implant Date [...]
--- OUTSIDE RECORDS SUMMARY | 2018-04-25 09:30 | XMS REPORT | Encounter Summary ---
Author Author [facility] Organization [facility] Address Unknown Phone Unavailable Care Team Providers Care Political Anthropologist Name Role Phone Nelia Jules MD Unavailable Aubrey Ball MD PCP Jori Gallegos MD [address] Tati Alejandro RN Unavailable Unavailable Clarissa Minor VP TREASURER Unavailable Reason for Visit * Reason Comments Remote Monitoring Released from [employer] Transferred Encounter Details Date Type Department Care Team Description 03/04/2018 Telephone Cardiovascular Medicine Anh Lopez Remote Monitoring Remote Device Check Transferred (Released [phone] from [employer]) Social History Tobacco Use Types Packs/Day Years [...]
--- OUTSIDE RECORDS SUMMARY | 2018-04-25 09:31 | XMS REPORT | Encounter Summary ---
Author Author [facility] Organization [facility] Address Unknown Phone Unavailable Care Team Providers Care Internal Medicine Physician Assistant Name Role Phone Nelia Jules MD Unavailable Aubrey Ball MD PCP Jori Gallegos MD [address] Alejandro RN Unavailable Unavailable Clarissa Minor TENTER FEEDER Unavailable Encounter Details Date Type Department Care Team Description 01/25/2018 [facility] Cardiovascular Medicine Jori Gallegos MD Encounter Remote Device Check [address] [facility] [phone] [address] [place] [address] [phone] Social History Tobacco Use Types Packs/Day Years [...] @ [facility] OTHER OUTSIDE LAB in [place], [place] Generator Serial # [id number] OTHER OUTSIDE LAB EP Device Followed by [...] OTHER OUTSIDE LAB Duration Remote Monitor Serial# [id number] OTHER OUTSIDE LAB Generator Informatica Developer Med[employer]onic OTHER OUTSIDE LAB Generator Investigational No OTHER OUTSIDE LAB Wireless Generator No OTHER OUTSIDE LAB Device Type DDD-PM OTHER OUTSIDE LAB EP Device Followed By MAC OTHER OUTSIDE LAB Device [place] [facility] OTHER OUTSIDE LAB Transmitter Compatible On AntiCoag Date 2,011 OTHER OUTSIDE LAB Known Diagnosed AFib Yes OTHER OUTSIDE LAB On Anticoagulation Yes OTHER OUTSIDE LAB MIGUEL/EOL Indicator 2.83V OTHER OUTSIDE LAB Atrial Lead [employer]a Developer Medtronic OTHER OUTSIDE LAB Atrial Lead Model # 5076 CapSureFix Nov[employer] OTHER OUTSIDE LAB Atrial Lead Serial # [id number] OTHER OUTSIDE LAB Atrial Lead Implant Date 11/09/16 OTHER OUTSIDE LAB RV Lead Informatica Developer Medtronic OTHER OUTSIDE LAB RV Lead Model # 4076 capsurefix OTHER OUTSIDE LAB RV Lead Serial # [id number] OTHER OUTSIDE LAB RV Lead Implant Date [...]
--- OUTSIDE RECORDS SUMMARY | 2018-04-25 09:31 | XMS REPORT | Encounter Summary ---
Author Author [facility] Organization [facility] Address Unknown Phone Unavailable Care Team Providers Care Manager Inventory Control Name Role Phone Nelia Jules MD Unavailable Aubrey Ball MD PCP Jori Gallegos MD [address] RN Unavailable Unavailable Clarissa Minor JAVASCRIPT PROGRAMMER Unavailable Encounter Details Date Type Department Care Team Description 02/25/2018 [facility] Cardiovascular Medicine Jori Gallegos MD Encounter Remote Device Check [address] [facility] [phone] [address] [place] [address] [phone] Social History Tobacco Use Types Packs/Day Years [...] @ [facility] OTHER OUTSIDE LAB in [place], [place] Generator Serial # [id number] OTHER OUTSIDE LAB EP Device Followed by [...] OTHER OUTSIDE LAB Duration Remote Monitor Serial# [id number] OTHER OUTSIDE LAB Generator Cash Applications Representative Med[employer]onic OTHER OUTSIDE LAB Generator Investigational No OTHER OUTSIDE LAB Wireless Generator No OTHER OUTSIDE LAB Device Type DDD-PM OTHER OUTSIDE LAB EP Device Followed By MAC OTHER OUTSIDE LAB Device [place] [facility] OTHER OUTSIDE LAB Transmitter Compatible On AntiCoag Date 2,011 OTHER OUTSIDE LAB Known Diagnosed AFib Yes OTHER OUTSIDE LAB On Anticoagulation Yes OTHER OUTSIDE LAB MIGUEL/EOL Indicator 2.83V OTHER OUTSIDE LAB Atrial Lead Cash Applications Representative [employer] OTHER OUTSIDE LAB Atrial Lead Model # 5076 CapSureFix [employer] OTHER OUTSIDE LAB Atrial Lead Serial # [id number] OTHER OUTSIDE LAB Atrial Lead Implant Date 11/09/16 OTHER OUTSIDE LAB RV Lead Cash Applications Representative Medtronic OTHER OUTSIDE LAB RV Lead Model # 4076 capsurefix OTHER OUTSIDE LAB RV Lead Serial # [id number] OTHER OUTSIDE LAB RV Lead Implant Date [...]
--- OUTSIDE RECORDS SUMMARY | 2018-04-25 09:31 | XMS REPORT | Encounter Summary ---
Author Author [facility] Organization [facility] Address Unknown Phone Unavailable Care Team Providers Care Inside Sales Name Role Phone Nelia Jules MD Unavailable Aubrey Ball MD PCP Jori Gallegos MD [address] RN Unavailable Unavailable Clarissa Minor WASHING AND SCREENING PLANT SUPERVISOR Unavailable Reason for Visit * Reason Comments Results INR 2.7 -- Dr. Hewitt's office manages Encounter Details Date Type Department Care Team Description 02/06/2018 Documentation Cardiovascular Medicine Ellen Springer RN Results (INR 2.7 -- Dr. Elan Nickerson [place] [address] 3[address] Marcelina's office manages ) [facility] [address] [address] [place] [address] Social History Tobacco Use Types [...]
--- OUTSIDE RECORDS SUMMARY | 2018-04-25 09:31 | XMS REPORT | Encounter Summary ---
Author Author [facility] Organization [facility] Address Unknown Phone Unavailable Care Team Providers Care Apprenticeship Training Representative Name Role Phone Nelia Jules MD Unavailable Aubrey Ball MD PCP Jori Gallegos MD [address] RN Unavailable Unavailable Clarissa Minor PATTERN KEEPER Unavailable Reason for Visit * Reason Comments Anticoagulation INR 2.7 - Dr. Hewitt's office manages INR Encounter Details Date Type Department Care Team Description 02/18/2018 Anticoagulation Cardiovascular Medicine Leilani Amaral RN Anticoagulation (INR 2.7 [address] [place] [phone] manages INR) [phone] Social History Tobacco Use Types Packs/Day Years [...]
[2018-04-25] MEDS ORDERED: SACU1TAB PO (09:37)
[2018-04-25] MEDS ORDERED: POTA10TA10 PO (09:37)
[2018-04-25] MEDS ORDERED: FURO20TA4 PO (09:37)
[2018-04-25] MEDS ORDERED: CRAN1CAP5 PO (09:37)
[2018-04-25] MEDS ORDERED: MIDAZOLAM 5 MG/5 ML (VERSED) VIAL ONE (09:41)
[2018-04-25] MEDS ORDERED: fentaNYL INJECTION 100 MCG/2 ML AMP ONE (09:41)
[2018-04-25] MEDS ORDERED: MIDAZOLAM 2 MG/2 ML (VERSED) VIAL ONE ×2 (12:44→13:58)
[2018-04-25] MEDS ORDERED: NEO/POLY/BAC (NEOSPORIN) OINT 15 GM TUBE ONE (14:09)
--- NOTE | 2018-04-25 15:07 | Cardiac Procedure Note-CS/ASA ---
Pre-Procedure Note Pre-Op Procedure Note H&P Reviewed The H&P was reviewed, patient examined and no changes noted. Date H&P Reviewed: Apr 25, 2018 Time H&P Reviewed: 09:30 Conscious Sedation Pre-Proced Time 09:30 ASA Score 3 For ASA 3 and 4: Consider anesthesia and medical clearance. Also, for patients with a history of failed moderate sedation consider anesthesia. Airway Lungs Heart ASA score ASA 1: a normal healthy patient ASA 2: a patient with a mild systemic disease (mid diabetes, controlled hypertension, obesity ASA 3: a patient with a severe systemic disease that limits activity (angina , COPD, prior Myocardial infarction) ASA 4: a patient with an incapacitating disease that is a constant threat to life (CHF, renal failure) ASA 5: a moribund patient not expected to survive 24 hrs. (ruptured aneurysm) ASA 6: a declared brain patient whose organs are being harvested. For emergent operations, add the letter E after the classification Mallampati Classification Grade 1 Sedation Plan Analgesia, Amnesia, Plan communicated to team members, Discussed options with patient/fam, Discussed risks with patient/fam The patient is an appropriate candidate to undergo the planned procedure, sedation, and anesthesia. The patient immediately re-assessed prior to indication. Breanne RANGEL MD Apr 25, 2018 3:07 pm
--- NOTE | 2018-04-25 15:07 | BiVentricular ICD Implantation ---
BiVentricular ICD Implant DATE OF SERVICE: 04/25/18 PROCEDURE: UPGRADE TO BIVENTRICULAR-ICD CARDIAC SYSTEM SAFETY MANAGER: Roderick Cole MD INDICATION: 1. Severe LV systolic dysfunction with an EF of 30 percent on aggressive goal- directed medical therapy. 2. Significant RV pacing more than 40 percent. 3. [place] Heart [employer] class III heart failure. 4. Persistent Atrial fibrillation. PREOPERATIVE DIAGNOSES: 1. Severe LV systolic dysfunction with an EF of 30 percent on aggressive goal- directed medical therapy. 2. Significant RV pacing more than 40 percent. 3. [place] Heart [employer] class III heart failure. 4. Persistent Atrial fibrillation POSTOPERATIVE DIAGNOSES: 1. Successful biventricular ICD upgrade. 2. Linq removal. HISTORY: This is a 67 female with atrial fibrillation refractory to atrial fibrillation ablation and numerous antiarrhythmics. She continues to be in persistent atrial fibrillation. She has a permanent pacemaker and RV pacing is more than 40 percent. She has [place] Heart [employer] class III heart failure and recent admission for decompensated heart failure. Ejection fraction of 30 percent. She has been on optimal guideline directed medical therapy. Therefore an upgrade to biventricular ICD implantation is recommended. PROCEDURE PERFORMED: 1. Pocket revision. Pacemaker generator explantation. 2. Left upper extremity venogram. 3. ICD lead implantation. 4. Coronary sinus lead implantation. 5. Upgrade to biventricular ICD. 6. Linq removal. COMPLICATIONS: None. ESTIMATED BLOOD LOSS: 50 mL. SPECIMENS: None. ANESTHESIA: Conscious sedation. ORAL ANTICOAGULATION: None. FLUOROSCOPY TIME: 71.8 minutes. FLUOROSCOPY DOSE: 617 MGY. CONTRAST DOSE: 40 mL PROCEDURE DETAILS: Informed consent was taken before the procedure was started. All the risks and complications were explained in detail which included vascular damage, pneumothorax, cardiac perforation, bleeding and infection. Once the patient accepted all the risks and complications, she was brought to the EP lab. The patient was given 1 gram of Ancef before the procedure. She was draped and prepped in the usual sterile fashion. A venogram was done from the left upper extremity to rule out any significant venous stenosis since the patient had previously 2 leads. Venogram did not show any stenosis in the subclavian vein. A left-sided incision was performed just below the clavicle and dissection was carried down to the pectoralis fascia. The previous generator and the leads were freed from tissue using a PlasmaBlade. We then under fluoroscopic guidance, the axillary vein was accessed 2 times and 2 J-tip wires were placed via the axillary vein into the IVC. One of the wire was clamped with a mosquito clamp. We had difficulty crossing with the wire at the junction of the subclavian vein and the superior vena cava, We used an introducer and were able to cross. We then took a 9-[place] Medtronic extended hook guide catheter and advanced it over one of the wires. We were not able to cross into the coronary sinus. We used numerous guide catheters. We were finally able to cross into the coronary sinus with extra-large extended hook guide catheter. A small amount of contrast was injected, which showed that we were indeed in the proximal segment of the coronary sinus. We then took the wire out and put in an occlusion balloon. The balloon was dilated in the proximal coronary sinus and the coronary sinus venogram was performed in both TAYLOR and HUNGARIAN fluoroscopic orientation. The venogram showed that the only reasonable vein was a posterior lateral branch. We then took a Medtronic Quad CS lead with the Choice PT wire and placed it into the coronary sinus. we were able to get into the posterior lateral branch and Medtronic quadripolar CS lead with a choice 0.014 wire. We were able to put the coronary wire into the posterior lateral vein distally and then were able to advance the CS lead. The CS lead was checked, which showed excellent sensitivity and threshold and no diaphragmatic stimulation. The wire was therefore taken out, the both sheaths were slit. The lead was still in its original place. The LV lead was then sutured to the pectoralis fascia with 2.0 nonabsorbable sutures. We put a 9-[place] African sheath in one of the J-tip wire in the axillary vein and then took single-coil RV ICD and advanced it and crossed under fluoroscopic guidance , crossed the tricuspid valve and placed it into the RV apex. The lead screw was deployed under fluoroscopic guidance. The lead was tested perioperatively and showed excellent sensitivity and capture threshold. There was no diaphragmatic stimulation. The sheath was therefore taken out and the lead was sutured to the muscle and pectoralis fascia with 2.0 nonabsorbable sutures. We then revised the pocket .once the pocket was created, we flushed with normal saline. The RV and LV leads were attached to a BiV ICD. We then took the old pacemaker off and attached atrial lead to the new BiV ICD device. The old RV pacemaker lead was capped and left in place. The device was placed in the pocket. DFT testing was not done. The wound was closed in 2 layers. The first layer was 6 interrupted 2-0 absorbable sutures. The next layer with which we closed the skin was a 4-0 silk. The skin was cleaned and Steri-Strips were placed and a bandage was placed on top. The patient was transferred to the intensive care unit unit in stable condition. Linq removal was done with local anesthesia. DEVICE INFORMATION: New device: Medtronic model [id number], serial number [id number], implant date 04/25/2018. Removed pacemaker device: Product number [id number], product name IPG A2 [facility] R[facility]ing [facility] . Implant date 11/09/2016 Removed implantable loop recorder, product number [id number], name: MON LNQ 11 LINQ [facility], Serial number [id number]. Implant date 02/04/2016 LEADS: 1. The right atrial lead: Existing lead. Model number [id number], length 45, serial number [id number], Medtronic, implant date 11/09/2016. 2. RV ICD lead: Medtronic model number 1712W61, length 62, serial number [id number]. Implant date 04/25/2018. 3. LV CS lead: Medtronic model number 472355, length 88, serial number [id number], implant date 04/25/2018. 4. capped existing RV pacemaker lead model number 291411, length 52, serial number [id number], implant date 11/09/2016. PERIOPERATIVE DEVICE INTERROGATION: 1. Right atrium 2. Right ventricle, bipolar, pulse width 0.5 milliseconds, voltage 0.4, impedance 523 ohms. 3. LV, LV1 to LV2. Pulse width was 0.5 milliseconds, voltage was 0.5, impedance was 721 ohms. POSTOPERATIVE DEVICE INTERROGATION: 1. Right atrium P-wave 1.4 mV. 2. RV R-wave 4.9 mV, impedance 399 ohms, HVB impedance 60 ohms, pacing threshold 0.5 V at 0.4 ms. 3. LV impedance 646 ohms, pacing threshold 1.25 V at 0.4 ms. IMPRESSION AND CONCLUSION: 1. Successful left-sided biventricular implantable cardioverter-defibrillator upgrade. 2. The patient will be transferred to the intensive care unit. She will continue on 3 more dosages of IV Ancef. 3. Postoperative EKG will be performed. 4. Chest x-ray will be done to rule out pneumothorax. 5. Device interrogation will be performed again in the morning. Roderick Cole MD, [facility], CCDS Cardiac Electrophysiology Breanne COLE MD Apr 25, 2018 15:07
[2018-04-25] MEDS ORDERED: PATIENT MAY USE OWN MEDS, ALL PO SCH (15:15)
[2018-04-25 15:30] VITALS: BP 108/59
--- NOTE | 2018-04-25 15:59 | Diagnostic Imaging Report ---
INDICATION: Cardiac dysrhythmia. Upright AP view of the chest is obtained with comparison made to study of 03/15/2018. FINDINGS: There has been interval placement of large battery pack and multiple leads in the left anterior chest wall. Pacemaker and defibrillator leads project over the right atrium and ventricle. There is no evidence of pneumothorax. No consolidation is identified. There is no significant pleural fluid. IMPRESSION: No evidence of pneumothorax or other acute complication post cardiac defibrillator device placement. Dictated by: Dictated on workstation # [id number]
[2018-04-25 20:59] VITALS: BP 101/61
[2018-04-25] MEDS ORDERED: NS (IVPB) 50 ML ONE (21:12)
[2018-04-25] MEDS: ceFAZolin INJECTION 1,000 MG in NS (IVPB) 50 ML IV SCH (21:20)
[2018-04-26 00:15] VITALS: BP 95/45
[2018-04-26 03:58] LABS: MEAN PLATELET VOLUME 9.7 FL (7.4-10.4); RED BLOOD COUNT 4.03 10^6/uL (4.35-5.85); RED CELL DISTRIBUTION WIDTH 20.1 % (10.0-14.5)
[2018-04-26 04:28] LABS: ALBUMIN 3.7 GM/DL (3.2-4.5); BILIRUBIN,TOTAL 1.7 MG/DL (0.1-1.0); CALCIUM 8.7 MG/DL (8.5-10.1); CREATININE SERUM 1.01 MG/DL (0.60-1.30); POTASSIUM 3.7 MMOL/L (3.6-5.0); TOTAL PROTEIN 6.4 GM/DL (6.4-8.2)
[2018-04-26] MEDS ORDERED: NS (IVPB) 50 ML ONE (04:36)
[2018-04-26] MEDS ORDERED: ceFAZolin 1,000 MG/10 ML (ANCEF) VIAL ONE (04:36)
[2018-04-26] MEDS: ceFAZolin INJECTION 1,000 MG in NS (IVPB) 50 ML IV SCH (05:16)
[2018-04-26 05:22] VITALS: BP 99/53
[2018-04-26 08:00] VITALS: BP 116/47
[2018-04-26 12:00] VITALS: BP 155/61
--- NOTE | 2018-04-26 13:54 | Cardiology Discharge Summary ---
Diagnosis/Chief Complaint Date of Admission 04/25/2018 Date of Discharge 04/26/2018 Admission Diagnosis Severe cardiomyopathy, significant RV pacing Final/Discharge Diagnosis Successful upgrade to biventricular ICD. Chief Complaint/HPI Chief Complaint/HPI This is a 67 female with atrial fibrillation refractory to atrial fibrillation ablation and numerous antiarrhythmics. She continues to be in persistent atrial fibrillation. She has a permanent pacemaker and RV pacing is more than 40 percent. She has [place] [employer] class III heart failure and recent admission for decompensated heart failure. Ejection fraction of 30 percent. She has been on optimal guideline directed medical therapy. Therefore an upgrade to biventricular ICD implantation is recommended. Discharge Summary Procedures Successful upgrade to biventricular ICD. Linq removal. Discharge Physical Examination No erythema, bleeding or swelling at the site of device implantation in left upper chest. Normal cardiovascular and respiratory examination. Hospital Course Stable. Discussion & Recommendations Discussion Discharge instructions took over 30 minutes to complete. Discharge instructions were discussed at length. Follow up appt.: Dr. Cole in one to 2 weeks for wound check. Dicharge Diet: Cardiac Diet Activity as Tolerated: Yes Home Medications Reviewed patient Home Medication Reconciliation performed by pharmacy medication reconciliations prosthetics lab technician and/or nursing. Patients Allergies have been reviewed. Discharge Home Medications: Reviewed and agree with Discharge Medication list on patient's Discharge Instruction sheet Condition at discharge Stable. Instructions to patient/family Discussed at length. Breanne COLE MD Apr 26, 2018 13:54
[2018-04-26] MEDS ORDERED: CEPH-507 PO (13:56)
--- NOTE | 2018-04-26 13:57 | Discharge Inst-Post Device ---
Discharge Inst-Post Device Follow up/Plan Dr Cole in 7-10 days. Heart Healthy Diet Do not lift arm on side of device placement above head for 4 weeks. Do not push and pull heavy objects for 4 weeks. Activity as tolerated. Leave dressing on until follow up at the office. Breanne COLE MD Apr 26, 2018 1:57 pm
== END 2018-04-26 14:22 | disposition home or self-care (01) ==
LOC: CATH 08:08 → ICU 15:23 → CATH 04-26 14:22
PROVIDERS: ATTEND Internal Medicine Interventional Cardiology
DX: I48.1 Persistent atrial fibrillation (principal); I47.1 Supraventricular tachycardia; I49.3 Ventricular premature depolarization; I11.0 Hypertensive heart disease with heart failure; I50.22 Chronic systolic (congestive) heart failure; E78.5 Hyperlipidemia, unspecified; G47.33 Obstructive sleep apnea (adult) (pediatric); Z79.01 Long term (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; Z79.899 Other long term (current) drug therapy; Z95.0 Presence of cardiac pacemaker
CPT/HCPCS: 33223; 33225; 33233; 33249; 33284; 36415; 71045; 75820; 80053; 85027; 85610; 85730; 87081; 93005

== ENCOUNTER 2018-06-07 07:05 | Day surgery (SDC) | payer MEDICARE, OTHER ==
[2018-06-07] VITALS (11 sets, daily range): BP systolic 95–114; BP diastolic 46–71
[~2018-06-07] VITALS: Ht 149.9 cm; Wt 62.5 kg
[~2018-06-07 07:05] MED LIST changes: +CEPH-507 PO; +METR-197 PO; -METR500T21 PO; +POTA10TA10 PO
--- OUTSIDE RECORDS SUMMARY | 2018-06-07 07:09 | XMS REPORT | Clinical Summary ---
Author Author [facility] Organization [facility] Address Unknown Phone Unavailable Care Team Providers Care Occ Ther Name Role Phone PCP Unavailable Allergies Not [...]
--- OUTSIDE RECORDS SUMMARY | 2018-06-07 07:10 | XMS REPORT | Encounter Summary ---
Author Author [facility] Organization [facility] Address Unknown Phone Unavailable Care Team Providers Care Chemical Operator Name Role Phone Nelia Jules MD Unavailable Aubrey Ball MD PCP Jori Gallegos MD [address] RN Unavailable Unavailable Clarissa Minor PICTURES EDITOR Unavailable Reason for Visit * Reason Comments Lab Results INR 2.6 , Dr Hewitt manages Encounter Details Date Type Department Care Team Description 04/01/2018 Documentation Cardiovascular Medicine Alix Blackwood RN Lab Results (INR 2.6 , [id number] Hewitt manages) [place] [address] Social History Tobacco Use Types [...]
--- OUTSIDE RECORDS SUMMARY | 2018-06-07 07:10 | XMS REPORT | Clinical Summary ---
Author Author [facility] Organization [facility] Address Unknown Phone Unavailable Care Team Providers Care Molder Apprentice Name Role Phone Nelia Jules MD Unavailable Aubrey Ball MD PCP Jori Gallegos MD [address] RN Unavailable Unavailable Clarissa Minor HEAD START TEACHER Unavailable Source Comments Some departments are not documenting in the electronic medical record. If you do not see the information that you expected, contact Release of Information in the Health Information Management department at [phone] for further assistance in locating additional records.[facility] Allergies Active Allergy Reactions Severity Noted [...] showed no obstructive disease. She has a WRNTB2HHCc score of 2--Female, HTN. Please refer to [...] the last 2-[address] Hewitt, in [place], did a CARDIAC CATH 08/2013 and her [...] Atrial fibrillation (HCC) 07/07/2014 Overview: 05/13/14: [facility]ICK[facility]: [facility]: EF 50% Echogenic density was noted [...] Ventricular tachycardia (HCC) 06/15/2014 Overview: 08/20/13: Cath: [facility]: EF 60% dominant circumflex system with [...] poorly Atrial flutter (HCC) 11/07/2010 Overview: SEI fcigwveb-LNO-7/11 CHADS2=one (HTN) Fall 2010-no flutteror AF-OK to DC Pradaxa L ast Assessment & Plan: No recurrence since ablation. 48 hour holter on 08/16/13 was negative for any atrial arrhythmias. Continues to be on daily aspirin therapy. Hyperlipidemia 09/22/2010 Last Assessment & Plan: Continues to be managed by Dr. Hewitt's office. Atypical chest pain Overview: 07/2007: [facility] @ [facility]: no significant CAD. 20% mid circ. EF-wnl. RCA-spasm during cath. 05/18/2010: [facility] @ [facility]: No obstructive CAD, normal LV size/function. EF 60% HTN (hypertension) Last Assessment & Plan: Well controlled on current therapy. Palpitations Overview: 07/2007 - Complete echocardiogram: Ejection fraction 60%. Mild left ventricular hypertrophy. Trace MR. Mild TR. 30 day event monitor showed Atrial Tach at 140-150bpm for 2-4 sec.. Toprol 25mg XL qd. 08/18/13: MPI: [facility]: EF 59%. Fair exercise tolerance. Frequent VPDs, ventricular bigeminy and ventricular couplets noted at rest and during recovery phase. Non diagnostic ECG changes with exercise. Reversible ischemia involving the whole anterior wall and anterior apex. 01/06/14: Echo: [facility]: EF 60% bradycardia in 40's for procedure. Left atrial dilatation. Moderate mitral regurgitation. Moderate tricuspid regurgitation. Estimated PAP of 40 mmHg Resolved Problems Problem Noted Date Resolved Date Cardiac pacemaker in situ 11/20/2016 11/22/2016 Encounters Date Type Specialty Care Team Description 04/01/2018 Documentation Cardiology Alix Blackwood, inspector process Results ( INR 2.6 , Dr Hewitt manages) 03/28/2018 Hospital Cardiology oJri Gallegos MD Encounter from Last 3 Months Family History Medical History Relation Name Comments Coronary Artery Disease Brother Coronary Artery Disease Brother Heart Attack Brother Arrhythmia Brother atrial flutter Coronary Artery Disease Father Heart Attack Father Stroke Mother Relation Name Status Comments Brother Alive Brother Alive Brother Brother Father ID (Age 47) Mother Social History Tobacco Use [...] C SCREENING 1952 PHYSICAL (COMPREHENSIVE) 1959 EXAM HIV SCREENING 1967 DTAP/TDAP VACCINES (1 - 1970 Tdap) BREAST CANCER SCREENING 1992 COLORECTAL CANCER 2002 SCREENING SHINGLES RECOMBINANT 2002 VACCINE (1 of 2) OSTEOPOROSIS 2017 SCREENING/MONITORING PNEUMONIA (PCV13/PPSV23) 2017 VACCINES (1 of 2 - PCV13) INFLUENZA VACCINE Completed 04/17/2018 Implants Implanted Type Area Protective Signal Operations Supervisor Device Expiration Model / Identifier Date Serial / Lot Pacemaker Pacemaker Procedures Procedure Name Priority Date/Time Associated Diagnosis Comments PROTIME INR (PT) Routine 04/01/2018 Results for this 12:00 AM CDT procedure are in the results section. DEVICE EVALUATION - Routine 03/30/2018 Palpitations Results for this REMOTE ILR 1:39 PM CDT Cardiac device in situ procedure are in the results section. from Last 3 Months Results * PROTIME INR (PT) (04/01/2018) INR [...] @ [facility] OTHER OUTSIDE LAB in [place], [place] Generator Serial # [id number] OTHER OUTSIDE LAB EP Device Followed by [...] OTHER OUTSIDE LAB Duration Remote Monitor Serial# [id number] OTHER OUTSIDE LAB Generator Protective Signal Operations Supervisor Medtronic OTHER OUTSIDE LAB Generator Investigational No OTHER OUTSIDE LAB Wireless Generator No OTHER OUTSIDE LAB Device Type DDD-PM OTHER OUTSIDE LAB EP Device Followed By MAC OTHER OUTSIDE LAB Device [place] [facility] OTHER OUTSIDE LAB Transmitter Compatible On AntiCoag Date 2,011 OTHER OUTSIDE LAB Known Diagnosed AFib Yes OTHER OUTSIDE LAB On Anticoagulation Yes OTHER OUTSIDE LAB MIGUEL/EOL Indicator 2.83V OTHER OUTSIDE LAB Atrial Lead Protective Signal Operations Supervisor Med[employer] OTHER OUTSIDE LAB Atrial Lead Model # 5076 CapSureFix [employer] OTHER OUTSIDE LAB Atrial Lead Serial # [id number] OTHER OUTSIDE LAB Atrial Lead Implant Date 11/09/16 OTHER OUTSIDE LAB RV Lead Protective Signal Operations Supervisor [employer] OTHER OUTSIDE LAB RV Lead Model # 4076 capsurefix OTHER OUTSIDE LAB RV Lead Serial # [id number] OTHER OUTSIDE LAB RV Lead Implant Date [...]
--- OUTSIDE RECORDS SUMMARY | 2018-06-07 07:10 | XMS REPORT | Encounter Summary ---
Author Author [facility] Organization [facility] Address Unknown Phone Unavailable Care Team Providers Care Dye Reel Operator Name Role Phone Nelia Jules MD Unavailable Aubrey Ball MD PCP Jori Gallegos MD [address] RN Unavailable Unavailable Clarissa Minor AUTHORIZER Unavailable Encounter Details Date Type Department Care Team Description 03/28/2018 [facility] Cardiovascular Medicine Jori Gallegos MD Encounter Remote Device Check [address] [facility] [phone] [address] [place] [address] [phone] Social History Tobacco Use Types Packs/Day Years [...] @ [facility] OTHER OUTSIDE LAB in [place], [place] Generator Serial # [id number] OTHER OUTSIDE LAB EP Device Followed by [...] OTHER OUTSIDE LAB Duration Remote Monitor Serial# [id number] OTHER OUTSIDE LAB Generator Calibrator Barometers Medtronic OTHER OUTSIDE LAB Generator Investigational No OTHER OUTSIDE LAB Wireless Generator No OTHER OUTSIDE LAB Device Type DDD-PM OTHER OUTSIDE LAB EP Device Followed By MAC OTHER OUTSIDE LAB Device [employer] OTHER OUTSIDE LAB Transmitter Compatible On AntiCoag Date 2,011 OTHER OUTSIDE LAB Known Diagnosed AFib Yes OTHER OUTSIDE LAB On Anticoagulation Yes OTHER OUTSIDE LAB MIGUEL/EOL Indicator 2.83V OTHER OUTSIDE LAB Atrial Lead Calibrator Barometers Medtronic OTHER OUTSIDE LAB Atrial Lead Model # 5076 CapSureFix Nov[employer] OTHER OUTSIDE LAB Atrial Lead Serial # [id number] OTHER OUTSIDE LAB Atrial Lead Implant Date 11/09/16 OTHER OUTSIDE LAB RV Lead Calibrator Barometers Medtronic OTHER OUTSIDE LAB RV Lead Model # 4076 capsurefix OTHER OUTSIDE LAB RV Lead Serial # [id number] OTHER OUTSIDE LAB RV Lead Implant Date [...]
[2018-06-07] MEDS ORDERED: NS IV 1000 ML 1,000 ML IV SCH (07:15)
[2018-06-07] MEDS ORDERED: LIDOCAINE 2% VISCOUS 15 ML UDC ONE (07:16)
[2018-06-07] MEDS ORDERED: NS IV 1000 ML 1,000 ML ONE (07:17)
[2018-06-07] MEDS ORDERED: MIDAZOLAM 2 MG/2 ML (VERSED) VIAL ONE (08:43)
[2018-06-07] MEDS ORDERED: proPOfol 200 MG/20 ML (DIPRIVAN) VIAL IV ONE (08:43)
--- NOTE | 2018-06-07 09:23 | Anesthesia-Procedure Note ---
Procedures/Interventions Procedure Start/Stop/Diagnosis Date of Procedure: Jun 07, 2018 Start Time: 09:00 Referring Physician: Kelsey Preprocedural Diagnosis: AFib Brief History Called to medical laboratory technician for scheduled VICKIE cardioversion. Pt supine on cart with monitors applied. Brief HX obtained from pt and RN. NPO status verified. ASA3. O2 per NC at 4lpm. Emergency equipment verified. Pt received a total of 2 mg Versed and 150mg of Propofol in incremental doses. Successful cardioversion. VSS. Left pt in care transaction processor with report, pt opening eyes. Stop Time: 09:20 Postprocedural Diagnosis: Paced OUMAR FERNANDEZ CRNA Jun 07, 2018 09:23
--- NOTE | 2018-06-07 09:27 | Cardioversion ---
Cardioversion PROCEDURE PHYSICIAN: Roderick Cole MD DATE OF PROCEDURE: 06/07/18 DIRECT EXTERNAL ELECTRICAL CARDIOVERSION: Indications: Symptomatic atrial fibrillation. Preoperative diagnoses: Symptomatic atrial fibrillation. Postoperative diagnosis: AV sequential pacing, Successful Electrical Cardioversion History: This is a 67-year-old lady with history of atrial flutter and atrial fibrillation. She is status post atrial flutter ablation, atrial fibrillation ablation previously. She had a dual-chamber permanent pacemaker implantation. She had significantly elevated ventricular pacing with an EF of 25 percent. Significant shortness of breath. She recently received an upgrade to biventricular ICD. Significant improvement in symptoms until one week ago. Device interrogation revealed atrial fibrillation. The patient is on warfarin for stroke prevention. However 2 INR readings in the last one month were below 2.0, therefore transesophageal echocardiogram assisted cardioversion is recommended. Anesthesia: By Anesthesia services Complications: None Specimen: None Contrast: 0 Flouroscopy: none Procedure Details: The patient was brought the laboratory technical specialist after informed consent was taken, all the risks and complications were explained including the risk of stroke. Transesophageal echocardiogram did not show any left atrium or left atrial appendage thrombus. Electrical cardioversion was carried out with anesthesia support with propofol. 120 joules of synchronized shock was delivered through external patches which promptly restored sinus rhythm. The patient tolerated the procedure well. Conclusions: 1.Successful Cardioversion. 2.Continue oral anticoagulation and rate controlling agent. 3.Follow up in office in 7-14 days. Roderick Cole MD, RS, CCDS Cardiac Electrophysiology Breanne COLE MD Jun 07, 2018 9:27 am
--- NOTE | 2018-06-07 12:29 | Anesthesia-General Post-Op ---
MAC Patient Condition Mental Status/LOC: Same as Preop Cardiovascular: Satisfactory Nausea/Vomiting: Absent Respiratory: Satisfactory Pain: Controlled Complications: Absent Post Op Complications Complications None Follow Up Care/Instructions Patient Instructions None needed. Anesthesiology Discharge Order Discharge Order Patient is doing well, no complaints, stable vital signs, no apparent adverse anesthesia problems. No complications reported per nursing. OUMAR FERNANDEZ CRNA Jun 07, 2018 12:29
== END 2018-06-07 10:39 | disposition home or self-care (01) ==
LOC: CATH 07:05
PROVIDERS: ATTEND Internal Medicine Interventional Cardiology
DX: I48.2 Chronic atrial fibrillation (principal); I11.0 Hypertensive heart disease with heart failure; E78.5 Hyperlipidemia, unspecified; G47.33 Obstructive sleep apnea (adult) (pediatric); Z79.899 Other long term (current) drug therapy; Z79.01 Long term (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; I42.9 Cardiomyopathy, unspecified; I50.22 Chronic systolic (congestive) heart failure; K21.9 Gastro-esophageal reflux disease without esophagitis; I47.1 Supraventricular tachycardia; Z95.810 Presence of automatic (implantable) cardiac defibrillator
CPT/HCPCS: 92960; 93005; 93312; 93320; 93325

== ENCOUNTER → 2018-06-13 | Outpatient (CLI) | payer MEDICARE, OTHER | LOC: CARD 08:57 | PROVIDERS: ATTEND Physician Assistant | DX: I48.0 Paroxysmal atrial fibrillation (principal); I10 Essential (primary) hypertension; R06.02 Shortness of breath; E78.5 Hyperlipidemia, unspecified; I08.3 Combined rheumatic disorders of mitral, aortic and tricuspid valves | CPT/HCPCS: 93306 ==

== ENCOUNTER 2018-06-30 15:25 | Inpatient (IN) | payer MEDICARE, OTHER ==
[~2018-06-30] VITALS: Ht 149.9 cm; Wt 63.5 kg
[2018-06-30] VITALS (7 sets, daily range): BP systolic 103–126; BP diastolic 49–102
--- OUTSIDE RECORDS SUMMARY | 2018-06-30 15:30 | XMS REPORT | Clinical Summary ---
Author Author [facility] Organization [facility] Address Unknown Phone Unavailable Care Team Providers Care Director Of Enterprise Architecture Name Role Phone PCP Unavailable Allergies Not [...]
--- OUTSIDE RECORDS SUMMARY | 2018-06-30 15:31 | XMS REPORT | Encounter Summary ---
Author Author [facility] Organization [facility] Address Unknown Phone Unavailable Care Team Providers Care Grocery Deliverer Name Role Phone Nelia Jules MD Unavailable Aubrey Ball MD PCP Jori Gallegos MD [address] RN Unavailable Unavailable Mily Clarissa SPEECH/LANGUAGE THERAPIST Unavailable Reason for Visit * Reason Comments Lab Results INR 2.6 , Dr Hewitt manages Encounter Details Care Team Description Date Type Department Alix Blackwood RN Lab Results (INR 2.6 , Dr Hewitt manages) 04/01/2018 Documentation Cardiovascular Medicine [address] [place] [phone] Social History Date Tobacco Use Types Packs/Day Years Used Never Smoker Smokeless Tobacco: Never Used Alcohol Use Drinks/Week oz/Week Comments No Sex Assigned at Date Recorded Not on file Industry Job Start Date Occupation Not on file Not on file Not on file Travel End Travel History Travel Start No recent travel history available. as of this encounter Functional Status Date of Assessment Functional Status Response 12/24/2015 Does the patient have a hearing impairment: Yes 07/08/2014 Does the patient have a visual impairment: No 07/08/2014 Does the patient have impaired ambulation: No 07/08/2014 Does the patient have an activity of daily living No (ADL) impairment: 07/08/2014 Does the patient have an instrumental activity of No daily living (IADL) impairment: Date of Assessment Cognitive Status Response 07/08/2014 Does the patient have a cognitive impairment: No as of this encounter Progress Notes * Alix Blackwood RN - 04/01/2018 11:33 AM CDT INR 2.[address] Hewitt manages in this encounter Plan of Treatment Not on fileas of this encounter Procedures Comments Procedure Name Priority Date/Time Associated Diagnosis PROTIME INR (PT) Routine 04/01/2018 in this encounter Results * PROTIME INR (PT) (04/01/2018) INR 2.6Comment: Dr. Hewitt manages OTHER OUTSIDE LAB Specimen Blood - Blood Narrative Performed At Performing Organization Address City/State/Zipcode Phone Number OTHER OUTSIDE LAB in this encounter Visit Diagnoses Not on filein this encounter
--- OUTSIDE RECORDS SUMMARY | 2018-06-30 15:31 | XMS REPORT | Clinical Summary ---
Author Author [facility] Organization [facility] Address Unknown Phone Unavailable Care Team Providers Care Historical Archeologist Name Role Phone Nelia Jules MD Unavailable Aubrey Ball MD PCP Jori Gallegos MD 100 Tati Alejandro RN Unavailable Unavailable Clarissa Minor CIGAR INSPECTOR Unavailable Source Comments Some departments are not documenting in the electronic medical record. If you do not see the information that you expected, contact Release of Information in the Health Information Management department at [phone] for further assistance in locating additional records.[facility] Allergies Comments Active Allergy Reactions Severity Noted Date Amiodarone NAUSEA ONLY Low 11/23/2017 Losartan ANGIOEDEMA 10/03/2010 severe Dronedarone DIARRHEA Low 08/22/2017 Amlodipine EDEMA 12/30/2010 Rosuvastatin UNKNOWN Low "foggy headed" Propafenone SEE COMMENTS Low 08/22/2017 Sulfa (Sulfonamide HIVES, RASH 06/01/2010 Antibiotics) Medications End Date Status Medication Sig Dispensed Refills Start Date Active escitalopram (LEXAPRO) 20 Take 10 mg by 0 mg PO tabletIndications: mouth at Atypical chest pain, bedtime Palpitations daily. Active alprazolam (XANAX) 0.5 mg Take 0.5 mg 0 PO tabletIndications: by mouth Atypical chest pain, three times Palpitations daily as needed. Active Cholecalciferol (Vitamin Take 1 Cap by 0 D3) 5,000 unit cap mouth daily. Active pantoprazole DR Take 40 mg by 0 (PROTONIX) 40 mg tablet mouth daily. Active docusate (COLACE) 100 mg Take 100 mg 0 capsule by mouth daily as needed. Active Diphenhydramine-Acetamino Take 1 Tab by 0 phen (TYLENOL PM EXTRA mouth at STRENGTH) 25-500 mg tab bedtime as tablet needed. Active warfarin (COUMADIN) 5 mg TAKE ONE-HALF 90 Tab 2 tablet TO ONE TABLET 6 BY MOUTH DAILY BASED ON INR RESULTS Active furosemide (LASIX) 20 mg TAKE ONE 135 Tab 3 tablet TABLET BY 6 MOUTH ON EVEN DAYS AND TWO ON ODD DAYS Active spironolactone TAKE ONE 90 Tab 3 (ALDACTONE) 25 mg tablet TABLET BY 6 MOUTH ONCE DAILY Active mexiletine (MEXITIL) 200 1 Cap twice 180 Cap 3 mg capsule daily. 7 Active atorvastatin (LIPITOR) 40 Take 40 mg by 0 mg tablet mouth daily. Active metoprolol XL (TOPROL XL) Take 25 mg by 0 25 mg extended release mouth daily. tablet Active amiodarone (PACERONE) 100 Take 1 tablet 30 tablet 11 mg tablet by mouth 8 daily. Active Problems Problem Noted Date Encounter for monitoring amiodarone therapy 10/12/2017 Cardiac device in situ 02/14/2017 Overview: LINQ Cardiac pacemaker in situ 11/22/2016 Sinus node dysfunction 11/20/2016 (HFpEF) heart failure with preserved ejection fraction 12/22/2015 History of medical problems 05/31/2015 Overview: [...] showed no obstructive disease. She has a [id number] score of 2--Female, HTN. Please refer to [...] the last 2-[address] Hewitt, in [place], did a CARDIAC CATH 08/2013 and [...] is clearly in sinus rhythm. Atrial fibrillation 07/07/2014 Overview: 05/13/14: VICKIE: [facility]: EF 50% Echogenic density was noted [...] AND LUNGS. 12/24/15 - Cardioversion Ventricular tachycardia 06/15/2014 Overview: 08/20/13: Cath: [facility]: EF 60% dominant circumflex system with [...] tolerates diltiazem and metoprolol poorly Atrial flutter 11/07/2010 Overview: SEI cafyovan-LJB-6/11 CHADS2=one (HTN) Fall 2010-no flutteror AF-OK to DC Pradaxa L ast Assessment & Plan: No recurrence since ablation. 48 hour holter on 08/16/13 was negative for any atrial arrhythmias. Continues to be on daily aspirin therapy. Hyperlipidemia 09/22/2010 Last Assessment & Plan: Continues to be managed by Dr. Hewitt's office. Atypical chest pain Overview: 07/2007: [facility]: no significant CAD. 20% mid circ. EF-wnl. RCA-spasm during cath. 05/18/2010: [facility] @ [facility]: No obstructive CAD, normal LV size/function. EF 60% HTN (hypertension) Last Assessment & Plan: Well controlled on current therapy. Palpitations Overview: 07/2007 - Complete echocardiogram: Ejection fraction 60%. Mild left ventricular hypertrophy. Trace MR. Mild TR. 30 day event monitor showed Atrial Tach at 140-150bpm for 2-4 sec.. Toprol 25mg XL qd. 08/18/13: MPI: [facility]: EF 59%. Fair exercise tolerance. Frequent VPDs, ventricular bigeminy and ventricular couplets noted at rest and during recovery phase. Non diagnostic ECG changes with exercise. Reversible ischemia involving the whole anterior wall and anterior apex. 01/06/14: Echo: [facility]: EF 60% bradycardia in 40's for procedure. Left atrial dilatation. Moderate mitral regurgitation. Moderate tricuspid regurgitation. Estimated PAP of 40 mmHg Resolved Problems Problem Noted Date Resolved Date Cardiac pacemaker in situ 11/20/2016 11/22/2016 Encounters Care Team Description Date Type Specialty Alix Blackwood, pellet mill operator Results (INR 2.6 , Dr Hewitt manages) 04/01/2018 Documentation Cardiology from Last 3 Months Family History Medical History Relation Name Comments Coronary Artery Disease Brother Coronary Artery Disease Brother Heart Attack Brother Arrhythmia Brother atrial flutter Coronary Artery Disease Father Heart Attack Father Stroke Mother Relation Name Status Comments Brother Alive Brother Alive Brother Brother Father [place] (Age 47) Mother Social History Date Tobacco Use Types Packs/Day Years Used Never Smoker Smokeless Tobacco: Never Used Alcohol Use Drinks/Week oz/Week Comments No Sex Assigned at Date Recorded Not on file Industry Job Start Date Occupation Not on file Not on file Not on file Travel End Travel History Travel Start No recent travel history available. Last Filed Vital Signs Time Taken Vital Sign Reading 11/23/2017 3:28 PM CDT Blood Pressure 120/70 11/23/2017 3:28 PM CDT Pulse 70 12/25/2015 11:03 AM CDT Temperature 36.5 C (97.7 F) - Respiratory Rate - 10/23/2017 10:35 AM CDT Oxygen Saturation 95% - Inhaled Oxygen - Concentration 11/23/2017 3:28 PM CDT Weight 65.6 kg (144 lb 11.2 oz) 11/23/2017 3:28 PM CDT Height 149.9 cm (4' 11") 11/23/2017 3:28 PM CDT Body Mass Index 29.23 Plan of Treatment Health Maintenance Due Date Last Done Comments HEPATITIS C SCREENING 1950 PHYSICAL (COMPREHENSIVE) 1959 EXAM HIV SCREENING 1967 DTAP/TDAP VACCINES (1 - 1970 Tdap) BREAST CANCER SCREENING 1992 COLORECTAL CANCER 2002 SCREENING SHINGLES RECOMBINANT 2002 VACCINE (1 of 2) OSTEOPOROSIS 2017 SCREENING/MONITORING PNEUMONIA (PCV13/PPSV23) 2017 VACCINES (1 of 2 - PCV13) INFLUENZA VACCINE Completed 04/17/2018 Implants Device Identifier Shelf Expiration Date Model / Serial / Lot Implanted Type Area Manufactur er Pacemaker Pacemaker Procedures Comments Procedure Name Priority Date/Time Associated Diagnosis PROTIME INR (PT) Routine 04/01/2018 from Last 3 Months Results * PROTIME INR (PT) (04/01/2018) INR 2.6Comment: Dr. Hewitt manages OTHER OUTSIDE LAB Specimen Blood - Blood Narrative Performed At Performing Organization Address City/State/Zipcode Phone Number OTHER OUTSIDE LAB from Last 3 Months Insurance Payer Benefit Subscriber ID Type Phone Address Plan / Group MEDICARE MEDICARE xxxxxxxxxx Medicare PART A AND B CIGNA CIGNA xxxxxxxxxx Medicare MEDICARE SUPPLEMENT Advance Directives Patient has advance care planning documents, and code status on file. For more information, please contact: [facility] [address] [place] [address] Date Inactivated Comments Code Status Date Activated 12/25/2015 2:24 PM Full Code 12/23/2015 1:37 PM Provider has discussed Code Status No, more discussion w/Patient or Family? needed 07/08/2014 11:49 AM Full Code 07/07/2014 6:32 AM Provider has discussed Code Status No, more discussion w/Patient or Family? needed 11/09/2010 5:35 AM Full Code 11/07/2010 7:04 AM Provider has discussed Code Status Yes w/Patient or Family?
[2018-06-30] MEDS ORDERED: NS IV 500 ML 500 ML IV ONE (16:30)
[2018-06-30 16:39] LABS: HEMOGLOBIN 9.3 G/DL (11.5-16.0); RED BLOOD COUNT 4.02 10^6/uL (4.35-5.85); WHITE BLOOD COUNT 9.8 10^3/uL (4.3-11.0)
[2018-06-30 16:40] LABS: BASOPHILS % (AUTO) 0 % (0-10); EOSINOPHILS # (AUTO) 0.1 10^3/uL (0.0-0.3); EOSINOPHILS % (AUTO) 1 % (0-10); HEMATOCRIT 30 % (35-52); LYMPHOCYTES # (AUTO) 3.2 X 10^3 (1.0-4.0); LYMPHOCYTES % (AUTO) 32 % (12-44); MEAN CORPUSCULAR HEMOGLOBIN 23 PG (25-34); MEAN CORPUSCULAR HGB CONC 31 G/DL (32-36); MEAN CORPUSCULAR VOLUME 75 FL (80-99); MEAN PLATELET VOLUME 9.7 FL (7.4-10.4); MONOCYTES # (AUTO) 0.6 X 10^3 (0.0-1.0); MONOCYTES % (AUTO) 6 % (0-12); NEUTROPHILS # (AUTO) 5.9 X 10^3 (1.8-7.8); NEUTROPHILS % (AUTO) 61 % (42-75); PLATELET COUNT 356 10^3/uL (130-400); RED CELL DISTRIBUTION WIDTH 22.4 % (10.0-14.5)
[2018-06-30 16:52] LABS: ALANINE AMINOTRANSFERASE 8 U/L (0-55); ALBUMIN 4.4 GM/DL (3.2-4.5); ALKALINE PHOSPHATASE 100 U/L (40-136); BILIRUBIN,TOTAL 0.8 MG/DL (0.1-1.0); BUN/CREATININE RATIO 20; CALCIUM 9.2 MG/DL (8.5-10.1); CARBON DIOXIDE 20 MMOL/L (21-32); CHLORIDE 104 MMOL/L (98-107); CREATININE SERUM 0.95 MG/DL (0.60-1.30); GFR ESTIMATED 59; GLUCOSE 120 MG/DL (70-105); MAGNESIUM 1.9 MG/DL (1.8-2.4); POTASSIUM 3.2 MMOL/L (3.6-5.0); SODIUM 140 MMOL/L (135-145); TOTAL PROTEIN 7.7 GM/DL (6.4-8.2)
--- NOTE | 2018-06-30 16:54 | ED Cardiac General ---
History of Present Illness General Chief Complaint: Cardiac/General Problems Stated Complaint: ELEV HR/NAUSEA Nursing Triage Note: pt presents to ed with complaints of nausea and palpitations/tachycardia since she woke up this am. pt had a pacemaker/defibulator placed in march and had a cardioversion done in may. Source: patient Exam Limitations: no limitations History of Present Illness Date Seen by Provider: Jun 30, 2018 Time Seen by Provider: 16:33 Initial Comments Here with report of palpitations this morning and feeling of nausea and some stomach queasiness. Had defibrillator pacemaker placed a few months back for A. fib problems and had to have cardioversion done. She was concerned that she may need to do that again. She is on Coumadin. She reports taking her meds as directed. Denies chest pain but has some shortness of breath with activity. Denies vomiting but has had some nausea. Timing/Duration: changing over time, intermittent, 12 hours Severity: mild Location: central (palpitations) Activities at Onset: none Prior CP/Workup: cardiac cath, echocardiography, stress test Modifying Factors: worse with exercise; improves with rest NTG SL PERIOPERATIVE ASSISTANT: No ASA po PERIOPERATIVE ASSISTANT: No Associated Systoms: No Chest Pain, No Diaphoresis, No Fever/Chills; Nausea/ Vomiting, Shortness of Air; No Weakness Allergies and Home Medications Allergies Coded Allergies: rosuvastatin (Unverified Allergy, Mild, 03/06/18) Sulfa (Sulfonamide Antibiotics) (Verified Allergy, Unknown, 03/06/18) Home Medications Acetaminophen 500 Mg Tablet, 500-1,000 MG PO Q6H PRN for PAIN-MILD, (Reported) Alprazolam 0.5 Mg Tablet, 0.25-0.5 MG PO TID PRN for ANXIETY, (Reported) TAKES 1/2 TO 1 (0.5 MG) TABLET Atorvastatin Calcium 40 Mg Tablet, 40 MG PO HS, (Reported) Cranberry Extract/Vit C 1 Each Capsule, 1 CAP PO DAILY, (Reported) Escitalopram Oxalate 20 Mg Tablet, 10 MG PO DAILY, (Reported) TAKES 1/2 (20MG) TABLET Furosemide 20 Mg Tablet, 40 MG PO 0700,1900, (Reported) TAKES 2 (20MG) TABLETS Metoprolol Succinate 25 Mg Tab.er.24h, 25 MG PO HS, (Reported) Pantoprazole Sodium 40 Mg Tablet.dr, 40 MG PO BID, (Reported) Potassium Chloride 10 Meq Tablet.er, 20 MEQ PO DAILY, (Reported) TAKES 2 (10MEQ) TABLETS Sacubitril/Valsartan 1 Each Tablet, 1 TAB PO BID, (Reported) Temazepam 15 Mg Capsule, 15 MG PO HS PRN for SLEEP, (Reported) Patient Home Medication List Home Medication List Reviewed: Yes Review of Systems Review of Systems Constitutional: see HPI; No chills, No fever EENTM: No Symptoms Reported Respiratory: SOA With Exertion; Denies Wheezing Cardiovascular: Denies Chest Pain, Denies Edema; Palpitations Gastrointestinal: Nausea; Denies Vomiting Genitourinary: No Symptoms Reported Musculoskeletal: no symptoms reported Skin: no symptoms reported All Other Systems Reviewed Negative Unless Noted: Yes Past Fjdtrcg-Ktcfrh-Amyrpi Hx Past Med/Social Hx: Reviewed Nursing Past Med/Soc Hx Patient Social History Alcohol Use: Rarely Uses Recreational Drug Use: No Smoking Status: Never a Smoker 2nd Hand Smoke Exposure: Yes Recent Foreign Travel: No Contact w/Someone Who Travel: No Recent Infectious Disease Expo: No Recent Hopitalizations: Yes (JANUARY 2018-GALLBLADDER X 1 WEEK) Physical Abuse: No Sexual Abuse: No Mistreated: No Fear: No Immunizations Up To Date Tetanus Booster (TDap): Less than 5yrs PED Vaccines UTD: No Date of Pneumonia Vaccine: Mar 20, 2018 Date of Influenza Vaccine: Apr 17, 2018 Seasonal Allergies Seasonal Allergies: No Past Medical History Surgeries: Yes (HYST,BREAST REDUCTION,OOPH.,RECTOCELE) Bladder Surgery, Gallbladder Respiratory: No Sleep Apnea Currently Using CPAP: Yes Cardiac: Yes (heart failure) Cardiomyopathy, Hypertension, Irregular Heartbeat Neurological: No Reproductive Disorders: No (X1 MISCARRIAGE) 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 Sexually Transmitted Disease: No HIV/AIDS: No Genitourinary: Yes UTI-Chronic Gastrointestinal: No (HX C-DIFF) Gastroesophageal Reflux, Diverticulosis Musculoskeletal: Yes (GENERALIZED WEAKNESS-SINCE SEPSIS JANUARY 2018) Endocrine: No Loss of Vision: Bilateral Hearing Impairment: Denies, Hard of Hearing Cancer: No Psychosocial: Yes Anxiety, Depression Integumentary: No Blood Disorders: No Adverse Reaction/Blood Tranf: No (HAS HAD BLOOD WITH NO REACTIION) Family Medical History Reviewed Nursing Family Hx Heart Disease, CAD Under 55 Years Old Physical Exam Vital Signs Vital Signs - First Documented 06/30/18 15:56 Temp 99.5 Pulse 120 Resp 20 B/P (MAP) 122/55 (77) Pulse Ox 97 Capillary Refill : Less Than 3 Seconds Height, Weight, BMI Height: 4'11.00" Weight: 140lbs. 11.2oz. 63.343434ll; 27.8 BMI Method:Stated General Appearance: No Apparent Distress, WD/WN HEENT: PERRL/EOMI, Pharynx Normal Neck: Non Tender, Supple; No Lymphadenopathy (L), No Lymphadenopathy (R) Respiratory: Lungs Clear, Normal Breath Sounds Cardiovascular: Regular Rate, Rhythm, No Murmur Gastrointestinal: Non Tender, Soft Extremity: Normal Inspection, Normal Range of Motion, Non Tender, No Calf Tenderness, No Pedal Edema Neurologic/Psychiatric: Alert, Oriented x3 Skin: Normal Color, Warm/Dry Procedures/Interventions Date of ETT Placement: Jan 07, 2018 Progress/Results/Core Measures Results/Orders Lab Results Laboratory Tests Test 06/30/18 15:40 06/30/18 17:07 Range/Units White Blood Count 9.8 4.3-11.0 10^3/uL Red Blood Count 4.02 L 4.35-5.85 10^6/uL Hemoglobin 9.3 L 11.5-16.0 G/DL Hematocrit 30 L 35-52 % Mean Corpuscular Volume 75 L 80-99 FL Mean Corpuscular Hemoglobin 23 L 25-34 PG Mean Corpuscular Hemoglobin Concent 31 L 32-36 G/DL Red Cell Distribution Width 22.4 H 10.0-14.5 % Platelet Count 356 130-400 10^3/uL Mean Platelet Volume 9.7 7.4-10.4 FL Neutrophils (%) (Auto) 61 42-75 % Lymphocytes (%) (Auto) 32 12-44 % Monocytes (%) (Auto) 6 0-12 % Eosinophils (%) (Auto) 1 0-10 % Basophils (%) (Auto) 0 0-10 % Neutrophils # (Auto) 5.9 1.8-7.8 X 10^3 Lymphocytes # (Auto) 3.2 1.0-4.0 X 10^3 Monocytes # (Auto) 0.6 0.0-1.0 X 10^3 Eosinophils # (Auto) 0.1 0.0-0.3 10^3/uL Basophils # (Auto) 0.0 0.0-0.1 10^3/uL Prothrombin Time 23.3 H 12.2-14.7 SEC INR Comment 2.1 H 0.8-1.4 Activated Partial Thromboplast Time 40 H 24-35 SEC Sodium Level 140 135-145 MMOL/L Potassium Level 3.2 L 3.6-5.0 MMOL/L Chloride Level 104 98-107 MMOL/L Carbon Dioxide Level 20 L 21-32 MMOL/L Anion Gap 16 H 5-14 MMOL/L Blood Urea Nitrogen 19 H 7-18 MG/DL Creatinine 0.95 0.60-1.30 MG/DL Estimat Glomerular Filtration Rate 59 BUN/Creatinine Ratio 20 Glucose Level 120 H 70-105 MG/DL Calcium Level 9.2 8.5-10.1 MG/DL Corrected Calcium 8.9 8.5-10.1 MG/DL Magnesium Level 1.9 1.8-2.4 MG/DL Total Bilirubin 0.8 0.1-1.0 MG/DL Aspartate Amino Transf (AST/SGOT) 21 5-34 U/L Alanine Aminotransferase (ALT/SGPT) 8 0-55 U/L Alkaline Phosphatase 100 40-136 U/L Myoglobin 36.3 10.0-92.0 NG/ML Troponin I < 0.30 <0.30 NG/ML B-Type Natriuretic Peptide 587.7 H <100.0 PG/ML Total Protein 7.7 6.4-8.2 GM/DL Albumin 4.4 3.2-4.5 GM/DL Thyroid Stimulating Hormone (TSH) 2.50 0.35-4.94 UIU/ML Urine Color YELLOW Urine Clarity CLEAR Urine pH 6 5-9 Urine Specific Upperco 1.015 L 1.016-1.022 Urine Protein NEGATIVE NEGATIVE Urine Glucose (UA) NEGATIVE NEGATIVE Urine Ketones NEGATIVE NEGATIVE Urine Nitrite NEGATIVE NEGATIVE Urine Bilirubin NEGATIVE NEGATIVE Urine Urobilinogen NORMAL NORMAL MG/DL Urine Leukocyte Esterase NEGATIVE NEGATIVE Urine RBC (Auto) NEGATIVE NEGATIVE Urine RBC NONE /HPF Urine WBC NONE /HPF Urine Squamous Epithelial Cells 0-5 /HPF Urine Crystals PRESENT H /LPF Urine Calcium Oxalate Crystals FEW H /LPF Urine Bacteria NEGATIVE /HPF Urine Casts NONE /LPF Urine Mucus NEGATIVE /LPF Urine Culture Indicated NO My Orders Orders - KWAME QUEEN MD Cbc With Automated Diff (06/30/18 16:30) Comprehensive Metabolic Panel (06/30/18 16:30) Magnesium (06/30/18 16:30) Thyroid Stimulating Hormone (06/30/18 16:30) Troponin I (06/30/18 16:30) Ua Culture If Indicated (06/30/18 16:30) Myoglobin Serum (06/30/18 16:30) Ekg Tracing (06/30/18 16:30) Chest 1 View, Ap/Pa Only (06/30/18 16:30) Ekg Tracing (06/30/18 16:30) Saline Lock/Iv-Start (06/30/18 16:30) Ns Iv 500 Ml (Sodium Chloride 0.9%) (06/30/18 16:30) BNP (06/30/18 16:44) Protime With Inr (06/30/18 16:44) Partial Thromboplastin Time (06/30/18 16:44) Warfarin Tablet (Coumadin Tablet) (06/30/18 18:15) Furosemide Injection (Lasix Injection) (06/30/18 18:15) Potassium Cl 10meq/50ml Ivpb (Kcl 10 Meq (06/30/18 18:15) Vital Signs/I&O 06/30/18 15:56 Temp 99.5 Pulse 120 Resp 20 B/P (MAP) 122/55 (77) Pulse Ox 97 Blood Pressure Mean: 77 Progress Progress Note : Progress Note Seen and evaluated. IV, labs, EKG and chest x-ray ordered. Normal saline 500 mL bolus. Repeat EKG ordered due to rhythm change. Monitor patient. No ASA as patient has no chest pain and she is currently on warfarin. 180: We are interrogating the pacemaker. I have discussed the case with Dr. Hewitt. He is recommending admission to the ICU due to underlying A. fib and she will need cardioversion. Recommends taking evening dose of warfarin. Nothing by mouth after midnight. We will also give Lasix 40 mg IV as patient does have some signs of heart failure with elevated BNP. Chest x-ray looks okay. We will replace potassium overnight as well as it is on the low side of normal. I did discuss the case with Dr. Ferguson at 1810 and she accepts patient for admission, inpatient status. Discussed with patient and family who agree with plan. Initial ECG Impression Date: Jun 30, 2018 Initial ECG Impression Time: 15:36 Initial ECG Rate: 127 Comment Ventricular paced rhythm at rate of 127. No evidence of ST elevation DC. Similar to previously paced rhythm although rate is faster. Previous rhythm has multiple paced morphologies of which some are similar to the ones currently noted on EKG. EKG : EKG Time: 15:48 Rate: 74 Comment Ventricular paced complexes at a rate of 74. Rightward axis. No evidence of ST elevation DC. Unchanged with respect to pacing characteristics from earlier but also noted on previous EKG. Interpreted by me. Diagnostic Imaging Diagonstic Imaging: Xray Plain Films/CT/US/NM/MRI: chest Comments [facility] [place] NAME: ISAC BIRD MED REC#: [id number] PT STATUS: REG ER : 1950 PHYSICIAN: KWAME QUEEN MD ADMIT DATE: 06/30/18/ER Draft Date of Exam:06/30/18 CHEST 1 VIEW, AP/PA ONLY EXAMINATION: Single view of the chest. INDICATION: Nausea and palpitations. COMPARISON: Prior study from 04/25/2018. FINDINGS: Implantable cardiac defibrillator device appears unchanged in position. Heart size appears stable. The central pulmonary vascularity appears within normal limits without evidence of current failure. There is no effusion. There is no pneumothorax. No focal alveolar infiltrate or consolidation demonstrated. There is no acute osseous abnormality. IMPRESSION: Stable enlargement of the cardiac silhouette without current evidence of failure or focal pulmonary infiltrate or effusion. Dictated on workstation # [id number] Dict: 06/30/18 1647 Trans: 06/30/18 1738 [facility] [id number] Interpreted by: KELECHI BARAHONA MD Electronically signed by: Departure Communication (Admissions) Time/Spoke to Admitting Phy: 18:10 Time/Spoke to Consulting Phy: 18:05 Impression Primary Impression: Heart failure Qualified Codes: I50.9 - Heart failure, unspecified Additional Impression: Atrial fibrillation with tachycardic ventricular rate Disposition: ADMITTED INPATIENT Condition: Stable Admissions Decision to Admit Reason: Admit from ER (General) Decision to Admit/Date: Jun 30, 2018 Time/Decision to Admit Time: 18:05 Departure-Patient Inst. Referrals: FARHAT SERNA DO (PCP/Family) Primary Care Physician KWAME QUEEN MD Jun 30, 2018 16:54
[2018-06-30 17:08] LABS: INR 2.1 (0.8-1.4); PROTHROMBIN TIME PATIENT 23.3 SEC (12.2-14.7)
[2018-06-30 17:12] LABS: MYOGLOBIN SERUM 36.3 NG/ML (10.0-92.0)
[2018-06-30 17:20] LABS: BILIRUBIN,URINE NEGATIVE (NEGATIVE); CLARITY,URINE CLEAR; COLOR,URINE YELLOW; GLUCOSE, URINE (UA) NEGATIVE (NEGATIVE); KETONES,URINE NEGATIVE (NEGATIVE); LEUKOCYTE ESTERASE ,URINE NEGATIVE (NEGATIVE); NITRITE,URINE NEGATIVE (NEGATIVE); PH,URINE 6 (5-9); PROTEIN,URINE NEGATIVE (NEGATIVE); UROBILINOGEN,URINE NORMAL (NORMAL)
[2018-06-30 17:32] LABS: BACTERIA,URINE NEGATIVE /HPF; CALCIUM OXALATE CRYSTALS,UR FEW /LPF; SQUAMOUS EPITHELIAL CELL,UR 0-5 /HPF
--- NOTE | 2018-06-30 17:39 | Diagnostic Imaging Report ---
EXAMINATION: Single view of the chest. INDICATION: Nausea and palpitations. COMPARISON: Prior study from 04/25/2018. FINDINGS: Implantable cardiac defibrillator device appears unchanged in position. Heart size appears stable. The central pulmonary vascularity appears within normal limits without evidence of current failure. There is no effusion. There is no pneumothorax. No focal alveolar infiltrate or consolidation demonstrated. There is no acute osseous abnormality. IMPRESSION: Stable enlargement of the cardiac silhouette without current evidence of failure or focal pulmonary infiltrate or effusion. Dictated by: Dictated on workstation # [id number]
[2018-06-30] MEDS ORDERED: FUROSEMIDE 40 MG/4 ML INJ (LASIX) IVP ONE (18:15)
[2018-06-30] MEDS ORDERED: warFARin 5 MG (COUMADIN) TAB PO ONE (18:15)
[2018-06-30] MEDS: POTASSIUM CL 10MEQ/50ML IVPB 50 ML IV ONE (18:34)
[2018-06-30] MEDS ORDERED: KCL 20 MEQ TAB (K-DUR) PO ONE (19:15)
[2018-06-30] MEDS ORDERED: NS IV 1000 ML 1,000 ML ONE (20:14)
[2018-06-30] MEDS: NS IV 1000 ML 1,000 ML IV SCH (20:45)
[2018-06-30] MEDS ORDERED: ALPRAZolam 0.25 MG (XANAX) TAB PO PRN (22:15)
[2018-06-30] MEDS: ALPRAZolam 0.25 MG (XANAX) TAB PO PRN (22:23)
[2018-06-30] MEDS: KCL 20 MEQ TAB (K-DUR) PO SCH (22:25)
[2018-06-30] MEDS ORDERED: meTOprolol 5 MG/5 ML (LOPRESSOR) VIAL IV ONE (22:30)
[2018-07-01] VITALS (22 sets, daily range): BP systolic 102–133; BP diastolic 41–89
[2018-07-01 03:36] LABS: BASOPHILS # (AUTO) 0.1 10^3/uL (0.0-0.1); BASOPHILS % (AUTO) 0 % (0-10); EOSINOPHILS # (AUTO) 0.1 10^3/uL (0.0-0.3); EOSINOPHILS % (AUTO) 1 % (0-10); HEMATOCRIT 30 % (35-52); HEMOGLOBIN 9.1 G/DL (11.5-16.0); LYMPHOCYTES # (AUTO) 3.9 X 10^3 (1.0-4.0); LYMPHOCYTES % (AUTO) 33 % (12-44); MEAN CORPUSCULAR HEMOGLOBIN 23 PG (25-34); MEAN CORPUSCULAR HGB CONC 30 G/DL (32-36); MEAN CORPUSCULAR VOLUME 75 FL (80-99); MEAN PLATELET VOLUME 9.6 FL (7.4-10.4); MONOCYTES # (AUTO) 0.8 X 10^3 (0.0-1.0); MONOCYTES % (AUTO) 7 % (0-12); NEUTROPHILS # (AUTO) 7.2 X 10^3 (1.8-7.8); NEUTROPHILS % (AUTO) 60 % (42-75); PLATELET COUNT 314 10^3/uL (130-400); RED BLOOD COUNT 3.99 10^6/uL (4.35-5.85); RED CELL DISTRIBUTION WIDTH 22.4 % (10.0-14.5)
[2018-07-01 03:59] LABS: ALANINE AMINOTRANSFERASE 10 U/L (0-55); ALBUMIN 4.3 GM/DL (3.2-4.5); ALKALINE PHOSPHATASE 91 U/L (40-136); BILIRUBIN,TOTAL 0.9 MG/DL (0.1-1.0); BUN/CREATININE RATIO 21; CALCIUM 8.7 MG/DL (8.5-10.1); CARBON DIOXIDE 21 MMOL/L (21-32); CHLORIDE 105 MMOL/L (98-107); CREATININE SERUM 0.84 MG/DL (0.60-1.30); GFR ESTIMATED > 60; GLUCOSE 101 MG/DL (70-105); MAGNESIUM 1.8 MG/DL (1.8-2.4); PHOSPHORUS 3.7 MG/DL (2.3-4.7); POTASSIUM 3.3 MMOL/L (3.6-5.0); SODIUM 139 MMOL/L (135-145); TOTAL PROTEIN 7.4 GM/DL (6.4-8.2)
[2018-07-01] MEDS: MAGNESIUM 1 GM/100 ML IVPB 100 ML IV SCH (04:41)
[2018-07-01] MEDS: POTASSIUM CL 10MEQ/50ML IVPB 50 ML IV SCH ×6 (04:41→10:45)
[2018-07-01] MEDS: KCL 20 MEQ TAB (K-DUR) PO SCH ×3 (04:42→20:33)
[2018-07-01] MEDS: POTASSIUM CL 10MEQ/50ML IVPB 50 ML IV ONE (05:10)
[2018-07-01] MEDS: FUROSEMIDE 40 MG/4 ML INJ (LASIX) IV SCH ×2 (07:03→17:21)
--- NOTE | 2018-07-01 08:10 | Consultation-Cardiology ---
HPI-Cardiology Cardiology Consultation Date of Consultation 07/01/18 Date of Admission Time Seen by Provider: 08:08 Indication: Shortness of breath HPI 67 years old lady with history of paroxysmal atrial fibrillation, congestive heart failure, had multiple ablations in the past. Had a permanent pacemaker and defibrillator. Was in her usual state of health until recently when she started noticing increasing dyspnea on exertion, she became short of breath on minimal exertion with daily activity. Having worsening pedal edema and she started noticing palpitation with rapid heart rate with a heart rate up in the 120s. Came in to the emergency room and she was noted to be in congestive heart failure with paroxysmal tachycardia. Denied any chest pain. No syncope. She still dyspneic and complaining of fatigue at this time. Home Medications & Allergies Allergies: Coded Allergies: rosuvastatin (Unverified Allergy, Mild, 03/06/18) Sulfa (Sulfonamide Antibiotics) (Verified Allergy, Unknown, 03/06/18) Home Medication List Reviewed: Yes ZSZ-Yriafj-Vhnitt Hx Patient Social History Marital Status: Employed/Student: employed Alcohol Use: Rarely Uses Recreational Drug Use: No Smoking Status: Never a Smoker 2nd Hand Smoke Exposure: Yes Recent Foreign Travel: No Recent Infectious Disease Expo: No Recent Hopitalizations: Yes (JANUARY 2018-GALLBLADDER X 1 WEEK) Physical Abuse Screen: No Sexual Abuse: No Immunizations Up To Date Tetanus Booster (TDap): Less than 5yrs Date of Pneumonia Vaccine: Apr 26, 2018 Date of Influenza Vaccine: Apr 26, 2018 Past Medical History past medical history discussed below Family Medical History Significant Family History: Heart Disease, CAD Under 55 Years Old Family Medical Hx noncontributory to her current condition Review of Systems Constitutional: see HPI, malaise, weakness EENTM: see HPI, no symptoms reported Respiratory: see HPI; No cough; dyspnea on exertion; No hemoptysis; orthopnea; No phlegm; short of breath; No stridor, No wheezing, No other Cardiovascular: see HPI; No chest pain; edema; No Hx of Intervention; palpitations; No syncope, No vascular heart diseas, No other Gastrointestinal: see HPI, nausea Genitourinary: no symptoms reported, see HPI Musculoskeletal: no symptoms reported, see HPI Skin: no symptoms reported, see HPI Psychiatric/Neurological: No Symptoms Reported, See HPI Reviewed Test Results Reviewed Test Results Lab Laboratory Tests Test 06/30/18 15:40 06/30/18 17:07 07/01/18 03:10 Range/Units White Blood Count 9.8 12.0 H 4.3-11.0 10^3/uL Red Blood Count 4.02 L 3.99 L 4.35-5.85 10^6/uL Hemoglobin 9.3 L 9.1 L 11.5-16.0 G/DL Hematocrit 30 L 30 L 35-52 % Mean Corpuscular Volume 75 L 75 L 80-99 FL Mean Corpuscular Hemoglobin 23 L 23 L 25-34 PG Mean Corpuscular Hemoglobin Concent 31 L 30 L 32-36 G/DL Red Cell Distribution Width 22.4 H 22.4 H 10.0-14.5 % Platelet Count 356 314 130-400 10^3/uL Mean Platelet Volume 9.7 9.6 7.4-10.4 FL Neutrophils (%) (Auto) 61 60 42-75 % Lymphocytes (%) (Auto) 32 33 12-44 % Monocytes (%) (Auto) 6 7 0-12 % Eosinophils (%) (Auto) 1 1 0-10 % Basophils (%) (Auto) 0 0 0-10 % Neutrophils # (Auto) 5.9 7.2 1.8-7.8 X 10^3 Lymphocytes # (Auto) 3.2 3.9 1.0-4.0 X 10^3 Monocytes # (Auto) 0.6 0.8 0.0-1.0 X 10^3 Eosinophils # (Auto) 0.1 0.1 0.0-0.3 10^3/uL Basophils # (Auto) 0.0 0.1 0.0-0.1 10^3/uL Prothrombin Time 23.3 H 12.2-14.7 SEC INR Comment 2.1 H 0.8-1.4 Activated Partial Thromboplast Time 40 H 24-35 SEC Sodium Level 140 139 135-145 MMOL/L Potassium Level 3.2 L 3.3 L 3.6-5.0 MMOL/L Chloride Level 104 105 98-107 MMOL/L Carbon Dioxide Level 20 L 21 21-32 MMOL/L Anion Gap 16 H 13 5-14 MMOL/L Blood Urea Nitrogen 19 H 18 7-18 MG/DL Creatinine 0.95 0.84 0.60-1.30 MG/DL Estimat Glomerular Filtration Rate 59 > 60 BUN/Creatinine Ratio 20 21 Glucose Level 120 H 101 70-105 MG/DL Calcium Level 9.2 8.7 8.5-10.1 MG/DL Corrected Calcium 8.9 8.5 8.5-10.1 MG/DL Magnesium Level 1.9 1.8 1.8-2.4 MG/DL Total Bilirubin 0.8 0.9 0.1-1.0 MG/DL Aspartate Amino Transf (AST/SGOT) 21 21 5-34 U/L Alanine Aminotransferase (ALT/SGPT) 8 10 0-55 U/L Alkaline Phosphatase 100 91 40-136 U/L Myoglobin 36.3 10.0-92.0 NG/ML Troponin I < 0.30 <0.30 NG/ML B-Type Natriuretic Peptide 587.7 H <100.0 PG/ML Total Protein 7.7 7.4 6.4-8.2 GM/DL Albumin 4.4 4.3 3.2-4.5 GM/DL Thyroid Stimulating Hormone (TSH) 2.50 0.35-4.94 UIU/ML Urine Color YELLOW Urine Clarity CLEAR Urine pH 6 5-9 Urine Specific [place] 1.015 L 1.016-1.022 Urine Protein NEGATIVE NEGATIVE Urine Glucose (UA) NEGATIVE NEGATIVE Urine Ketones NEGATIVE NEGATIVE Urine Nitrite NEGATIVE NEGATIVE Urine Bilirubin NEGATIVE NEGATIVE Urine Urobilinogen NORMAL NORMAL MG/DL Urine Leukocyte Esterase NEGATIVE NEGATIVE Urine RBC (Auto) NEGATIVE NEGATIVE Urine RBC NONE /HPF Urine WBC NONE /HPF Urine Squamous Epithelial Cells 0-5 /HPF Urine Crystals PRESENT H /LPF Urine Calcium Oxalate Crystals FEW H /LPF Urine Bacteria NEGATIVE /HPF Urine Casts NONE /LPF Urine Mucus NEGATIVE /LPF Urine Culture Indicated NO Phosphorus Level 3.7 2.3-4.7 MG/DL Physical Exam Vital Signs Vital Signs - First Documented 06/30/18 06/30/18 15:56 19:56 Temp 99.5 Pulse 120 Resp 20 B/P (MAP) 122/55 (77) Pulse Ox 97 O2 Delivery Room Air Capillary Refill : Less Than 3 SecondsLess Than 3 Seconds Height, Weight, BMI Height: 4'11.00" Weight: 139lbs. 4.0oz. 63.417141ep; 26.2 BMI Method:Stated General Appearance: WD/WN, Mild Distress Eyes: Bilateral Eye Normal Inspection, Bilateral Eye PERRL, Bilateral Eye EOMI HEENT: PERRL/EOMI, TMs Normal, Normal ENT Inspection, Pharynx Normal Neck: Full Range of Motion, Normal Inspection, Non Tender, Supple, Carotid Bruit Respiratory: Chest Non Tender, Normal Breath Sounds, No Accessory Muscle Use, No Respiratory Distress, Crackles Cardiovascular: No Edema, No Gallop, No JVD, No Murmur, Normal Peripheral Pulses, Systolic Murmur, Other (irregular rhythm) Gastrointestinal: Normal Bowel Sounds, No Organomegaly, No Pulsatile Mass, Non Tender, Soft Back: Normal Inspection, No CVA Tenderness, No Vertebral Tenderness Extremity: Normal Capillary Refill, Normal Inspection, Normal Range of Motion, Non Tender, No Calf Tenderness, Pedal Edema Neurologic/Psychiatric: Alert, Oriented x3, No Motor/Sensory Deficits, Normal Mood/Affect Skin: Normal Color, Warm/Dry Lymphatic: No Adenopathy A/P-Cardiology Admission Diagnosis Congestive heart failure Palpitation Paroxysmal atrial fibrillation Shortness of breath Assessment/Plan Congestive heart failure, acute on chronic left ventricular systolic dysfunction ejection fraction 25-30 percent, nonischemic cardiomyopathy, had bi- V pacemaker implanted on April 25, 2018, repeat echo done on June 17, 2018 showing ejection fraction 55-60 percent, mild mitral regurgitation, moderate tricuspid regurgitation, pulmonary hypertension with PA pressure of 50 mmHg. I will start on IV Lasix and monitor Recurrent palpitation with tachycardia, has been on metoprolol, I will switch her to sotalol and evaluate tolerance and response Paroxysmal atrial fibrillation/flutter had history of ablation at , has been intolerant to take Tykosin, flecainide, propafenone, mild tach and amiodarone, I will start sotalol and evaluate tolerance and response History of nonsustained ventricular tachycardia had ablation done 5 years ago. Has ICD implanted. I will interrogate the defibrillator. Coronary artery disease, cardiac catheterization done on 08/20/2013 and repeated on September 12, 2017 showing mild coronary artery disease nonobstructive disease. Continue to monitor History of acute cholecystitis, status post emergent cholecystectomy as well as repair of the liver bleed by Dr. Moran earlier this year. Patient improved. Sick sinus syndrome, symptomatically bradycardia with heart rate in the 30s, status post dual-chamber pacemaker implantation , Bi-V upgrade done 04/25/18. Allergy to Entresto with severe itching Allergic to sulfa, rosuvastatin, has been on Lipitor and tolerating it Hypertension-controlled. Continue to monitor blood pressure/heart rate. Hyperlipidemia, continue to monitor lipids Gastroesophageal reflux managed by primary care physician COPD, using C Pap at night, followed by primary care physician. Carotid ultrasound showing no significant stenosis done in September 2016. Continue to monitor. Depression Clinical Quality Measures AMI/AHF: ASA po Prior to arrival: No DVT/VTE Risk/Contraindication: Risk Factor Score Per Nursin RFS Level Per Nursing on Admit: 4+=Very High ELISE RIDER MD Jul 01, 2018 08:10
[2018-07-01] MEDS ORDERED: POTASSIUM CL 10MEQ/50ML IVPB 50 ML IV SCH (08:15)
[2018-07-01] MEDS ORDERED: FUROSEMIDE 40 MG/4 ML INJ (LASIX) IVP ONE (08:15)
[2018-07-01] MEDS: SOTALOL 80 MG (BETAPACE) TAB PO SCH ×2 (08:48→20:26)
--- NOTE | 2018-07-01 08:58 | Diagnostic Imaging Report ---
INDICATION: Dyspnea, atrial fibrillation with rapid ventricular response.. TECHNIQUE: Single view chest 3:39 AM. CORRELATION STUDY: 06/30/2018 FINDINGS: Left-sided AICD remains in place. Heart size enlarged but generally stable. Vascular slightly increased from prior study. Lung perez overall relatively clear. No significant effusion or infiltrate. IMPRESSION: 1. Stable severity of cardiac enlargement, vascular slightly increased from prior study. Dictated by: Dictated on workstation # [id number]
--- NOTE | 2018-07-01 09:41 | History & Physical-Hospitalist ---
History of Present Illness HPI/Chief Complaint This is a 67-year-old white female who presents with a history of in creased dyspnea on exertion and soa, She had a pacemaker defibrillator placed in April and for 5-6 weeks felt really good. She did have paroxysmal atrial fibrillation for which she had a cardioversion about 3 weeks ago. She notes that she's been having a dry cough, diffuse pruritus and pedal edema for the last 2-3 weeks. She is having multifocal PVCs and probable underlying atrial fibrillation omtelemetry with an intermittent paced rhythm. She has been intolerant to multiple antiarrhythmics and Dr. Allen has just put her on sotalol and is monitoring her for tolerance. Source: patient, old records Exam Limitations: no limitations Date Seen 07/01/18 Time Seen by a Provider: 09:00 Attending Physician Gifty Krishna Jacqueline S DO Referring Physician Date of Admission Jun 30, 2018 at 18:10 Home Medications & Allergies Home Medications Reviewed patient Home Medication Reconciliation performed by pharmacy medication reconciliations internal medicine veterinary technician and/or nursing. Patients Allergies have been reviewed. Allergies Allergies Coded Allergies rosuvastatin (Unverified Allergy, Mild, 03/06/18) sacubitril (Verified Allergy, Mild, RASH, 07/01/18) PATIENT HAS ITCHING FROM MEDICATION valsartan (Verified Allergy, Mild, RASH, 07/01/18) PATIENT HAS ITCHING FROM MEDICATION Sulfa (Sulfonamide Antibiotics) (Verified Allergy, Unknown, 03/06/18) Past [id number] Hx Past Med/Social Hx: Reviewed Nursing Past Med/Soc Hx Patient Social History Marrital Status: Employed/Student: employed Alcohol Use: Rarely Uses Number of Drinks Today: DD Alcohol Beverage of Choice: Wine, Other Recreational Drug Use: No Smoking Status: Never a Smoker 2nd Hand Smoke Exposure: Yes Physical Abuse Screen: No Sexual Abuse: No Recent Foreign Travel: No Contact w/other who traveled: No Recent Hopitalizations: Yes (JANUARY 2018-GALLBLADDER X 1 WEEK) Recent Infectious Disease Expo: No Immunizations Up To Date Tetanus Booster (TDap): Less than 5yrs Pediatric: No Date of Pneumonia Vaccine: Apr 26, 2018 Date of Influenza Vaccine: Apr 26, 2018 Seasonal Allergies Seasonal Allergies: No Past Medical History Surgeries: Bladder Surgery, Defibrillator, Gallbladder, Pacemaker Respiratory: Sleep Apnea Currently Using CPAP: Yes (at night) Currently Using BIPAP: No Cardiac: Cardiomyopathy, Hypertension, Irregular Heartbeat : No Reproductive: No (X1 MISCARRIAGE) Sexually Transmitted Disease: No HIV/AIDS: No Hysterectomy Genitourinary: UTI-Chronic Gastrointestinal: Gastroesophageal Reflux, Diverticulosis Loss of Vision: Bilateral Hearing Impairment: Denies, Hard of Hearing Psychosocial: Anxiety, Depression History of Blood Disorders: No Adverse Reaction to Blood Cancino: No (HAS HAD BLOOD WITH NO REACTIION) Family History Reviewed Nursing Family Hx Heart Disease, CAD Under 55 Years Old Review of Systems Constitutional: see HPI, weakness EENTM: no symptoms reported Respiratory: cough, dyspnea on exertion, orthopnea Cardiovascular: edema, palpitations Gastrointestinal: no symptoms reported Genitourinary: other (Vaginal itching) Musculoskeletal: no symptoms reported Skin: no symptoms reported Psychiatric/Neurological: Anxiety Physical Exam Physical Exam Vital Signs Vital Signs - First Documented 06/30/18 06/30/18 15:56 19:56 Temp 99.5 Pulse 120 Resp 20 B/P (MAP) 122/55 (77) Pulse Ox 97 O2 Delivery Room Air Capillary Refill : Less Than 3 SecondsLess Than 3 Seconds Height, Weight, BMI Height: 4'11.00" Weight: 139lbs. 4.0oz. 63.906489kf; 26.2 BMI Method:Stated General Appearance: No Apparent Distress, WD/WN HEENT: Normal ENT Inspection Neck: JVD Respiratory: Decreased Breath Sounds Cardiovascular: Systolic Murmur, Gallop/S3, Irregularly Irregular, JVD Gastrointestinal: Normal Bowel Sounds, No Pulsatile Mass, Non Tender, Soft Rectal: Deferred Back: Normal Inspection Extremity: Non Tender, No Pedal Edema Neurologic/Psychiatric: Alert, Oriented x3, No Motor/Sensory Deficits Skin: Normal Color, Warm/Dry Results Results/Procedures Labs Laboratory Tests 07/01/18 03:10 07/02/18 03:25 Patient resulted labs reviewed. Imaging: Reviewed Imaging Report Assessment/Plan Admission Diagnosis 1. Congestive heart failure-nonischemic acute decompensation with chronic CHF with an ejection fraction of 25 percent status post pacemaker defibrillator placement 2. A. fib with history of multiple ablations and cardioversion. Currently with tachycardia presumed to be A. fib pacemaker interrogation is being attempted but is pending. Intolerant to multiple medications and antiarrhythmics 3. Pulmonary hypertension. 4. Obstructive sleep apnea 5. Dyspnea on exertion secondary to decompensated congestive heart failure 6. Pruritus presumed to be secondary Entresto 7. Hypokalemia 8. Anemia-with low MCV most consistent with iron deficiency most likely related to liver laceration and bleeding. 9. Multiple focal PVCs with a history of V. tach Plan for ICU monitoring possibly consideration for cardioversion, patient is very fragile with a depressed ejection fraction and life-threatening cardiac arrhythmias in the past. Admission Status: Inpatient Order (span 2 midnights) Reason for Inpatient Admission: Acute on chronic congestive heart failure with multiple comorbidities and cardiac arrhythmias. Patient will require inpatient monitoring and we are currently unable to interrogate her pacemaker defibrillator. Critical Care Critically Ill Patient Critical Care Start Date: Jul 01, 2018 Critical Care Start Time: 09:00 Stop date: Jul 01, 2018 Stop Time: 10:00 Clinical Quality Measures AMI/AHF: ASA po Prior to arrival: No DVT/VTE Risk/Contraindication: Risk Factor Score Per Nursin RFS Level Per Nursing on Admit: 4+=Very High Copy Copies To 1: FARHAT SERNA KATHLEEN M MD Jul 01, 2018 09:41
[2018-07-01] MEDS ORDERED: ALPRAZolam 0.5 MG (XANAX) TAB PO PRN (09:45)
[2018-07-01] MEDS ORDERED: LORATADINE (CLARITIN) 10 MG TAB PO ONE (09:45)
[2018-07-01] MEDS ORDERED: ACETAMINOPHEN 500 MG TAB (TYLENOL) PO PRN (10:00)
[2018-07-01] MEDS ORDERED: KCL 10 MEQ TAB (MICRO K) PO NR (10:47)
[2018-07-01] MEDS ORDERED: meTOprolol 5 MG/5 ML (LOPRESSOR) VIAL IV NR (11:11)
[2018-07-01] MEDS: ONDANSETRON 4 MG (ZOFRAN) ORAL DISSOLVE TAB PO PRN ×2 (16:30→22:36)
[2018-07-01] MEDS ORDERED: FUROSEMIDE 40 MG/4 ML INJ (LASIX) IVP SCH (17:00)
[2018-07-01] MEDS: NS IV 1000 ML 1,000 ML IV SCH (17:21)
[2018-07-01] MEDS: PANTOPRAZOLE 40 MG (PROTONIX) TAB PO SCH (20:26)
[2018-07-01] MEDS: ATORVASTATIN 40 MG (LIPITOR) TABLET PO SCH (20:26)
[2018-07-01] MEDS: TEMAZEPAM 15 MG (RESTORIL) CAP PO PRN (22:36)
[2018-07-01] MEDS: ALPRAZolam 0.25 MG (XANAX) TAB PO PRN (22:36)
[2018-07-02] VITALS (22 sets, daily range): BP systolic 103–128; BP diastolic 45–90
[2018-07-02] MEDS: ALPRAZolam 0.25 MG (XANAX) TAB PO PRN ×3 (00:14→20:30)
[2018-07-02 03:49] LABS: BASOPHILS # (AUTO) 0.1 10^3/uL (0.0-0.1); BASOPHILS % (AUTO) 1 % (0-10); EOSINOPHILS # (AUTO) 0.1 10^3/uL (0.0-0.3); EOSINOPHILS % (AUTO) 1 % (0-10); HEMATOCRIT 29 % (35-52); HEMOGLOBIN 8.9 G/DL (11.5-16.0); LYMPHOCYTES # (AUTO) 3.7 X 10^3 (1.0-4.0); LYMPHOCYTES % (AUTO) 36 % (12-44); MEAN CORPUSCULAR HEMOGLOBIN 23 PG (25-34); MEAN CORPUSCULAR HGB CONC 31 G/DL (32-36); MEAN CORPUSCULAR VOLUME 76 FL (80-99); MEAN PLATELET VOLUME 9.3 FL (7.4-10.4); MONOCYTES # (AUTO) 0.7 X 10^3 (0.0-1.0); MONOCYTES % (AUTO) 7 % (0-12); NEUTROPHILS # (AUTO) 5.7 X 10^3 (1.8-7.8); NEUTROPHILS % (AUTO) 56 % (42-75); PLATELET COUNT 319 10^3/uL (130-400); RED BLOOD COUNT 3.85 10^6/uL (4.35-5.85); RED CELL DISTRIBUTION WIDTH 22.3 % (10.0-14.5); WHITE BLOOD COUNT 10.3 10^3/uL (4.3-11.0)
[2018-07-02 04:04] LABS: PROTHROMBIN TIME PATIENT 22.7 SEC (12.2-14.7)
[2018-07-02 04:18] LABS: ALANINE AMINOTRANSFERASE 6 U/L (0-55); ALBUMIN 4.1 GM/DL (3.2-4.5); ALKALINE PHOSPHATASE 92 U/L (40-136); BILIRUBIN,TOTAL 0.7 MG/DL (0.1-1.0); BUN/CREATININE RATIO 25; CALCIUM 8.9 MG/DL (8.5-10.1); CARBON DIOXIDE 19 MMOL/L (21-32); CHLORIDE 106 MMOL/L (98-107); CREATININE SERUM 0.85 MG/DL (0.60-1.30); GFR ESTIMATED > 60; GLUCOSE 117 MG/DL (70-105); MAGNESIUM 1.9 MG/DL (1.8-2.4); PHOSPHORUS 3.8 MG/DL (2.3-4.7); POTASSIUM 3.7 MMOL/L (3.6-5.0); SODIUM 139 MMOL/L (135-145); TOTAL PROTEIN 7.1 GM/DL (6.4-8.2)
[2018-07-02] MEDS: POTASSIUM CL 10MEQ/50ML IVPB 50 ML IV SCH (04:53)
[2018-07-02] MEDS: MAGNESIUM 1 GM/100 ML IVPB 100 ML IV SCH (04:54)
[2018-07-02] MEDS: KCL 20 MEQ TAB (K-DUR) PO SCH (04:55)
[2018-07-02] MEDS: ONDANSETRON 4 MG (ZOFRAN) ORAL DISSOLVE TAB PO PRN ×2 (05:13→12:20)
[2018-07-02] MEDS: FUROSEMIDE 40 MG/4 ML INJ (LASIX) IV SCH ×2 (06:52→16:41)
--- NOTE | 2018-07-02 07:18 | Diagnostic Imaging Report ---
INDICATION: Heart disease. Comparison is made with prior examination from 07/01/2018. FINDINGS: There is cardiomegaly. There is a pacemaker overlying the left hemithorax. The mediastinum is unremarkable. There is no pleural effusion, pneumothorax or pneumonia. IMPRESSION: No acute cardiopulmonary abnormality Cardiomegaly. Dictated by: Dictated on workstation # [id number]
--- NOTE | 2018-07-02 07:58 | Cardiology Progress Note ---
Subjective Date Seen by Provider: Jul 02, 2018 Time Seen by Provider: 07:55 Subjective/Events-last exam patient is laying down in bed, complaining of mild nausea, her breathing is better. No chest pain. Review of Systems General: No Chills, No Night Sweats, No Fatigue, No Malaise, No Appetite, No Other HEENT: No Head Aches, No Visual Changes, No Eye Pain, No Ear Pain, No Dysphasia , No Sinus Congestion, No Post Nasal Drip, No Sore Throat, No Other Pulmonary: Dyspnea; No Cough, No Pleuritic Chest Pain, No Other Cardiovascular: No: Chest Pain, Palpitations, Orthopnea, Paroxysmal Noc. Dyspnea, Edema, Lt Headedness, Other Gastrointestinal: Nausea Objective-Cardiology Exam Last Set of Vital Signs Vital Signs 07/02/18 07/02/18 06:00 07:00 Pulse 72 Resp 28 B/P (MAP) 112/57 (75) Pulse Ox 94 O2 Delivery Room Air Capillary Refill : Less Than 3 SecondsLess Than 3 Seconds I&O Intake and Output 07/02/18 00:00 Intake Total 3860 ml Output Total 1000 ml Balance 2860 ml Intake Oral 2700 ml IV Total 1160 ml Output Urine Total 1000 ml # Voids 16 # Bowel Movements 5 General: Alert, Oriented X3, Cooperative HEENT: Atraumatic, PERRLA Neck: Supple, No JVD, No Thyromegaly Lungs: Clear to Auscultation, Normal Air Movement Heart: Regular Rate, Normal S1, Normal S2, Other (systolic murmur) Abdomen: Normal Bowel Sounds, Soft, No Tenderness, No Hepatosplenomegaly, No Masses Extremities: No Clubbing, No Cyanosis, No Edema, Normal Pulses, No Tenderness/ Swelling Skin: No Rashes, No Breakdown, No Significant Lesion Neuro: Normal Gait, Normal Speech, Strength at 5/5 X4 Ext, Normal Tone, Sensation Intact Psych/Mental Status: Mental Status NL, Mood NL Results Lab Laboratory Tests 07/02/18 03:25 A/P-Cardiology Admission Diagnosis Congestive heart failure Palpitation Paroxysmal atrial fibrillation Shortness of breath Assessment/Plan Congestive heart failure, acute on chronic left ventricular systolic dysfunction ejection fraction 25-30 percent, nonischemic cardiomyopathy, had bi- V pacemaker implanted on April 25, 2018, repeat echo done on June 17, 2018 showing ejection fraction 55-60 percent, mild mitral regurgitation, moderate tricuspid regurgitation, pulmonary hypertension with PA pressure of 50 mmHg. continue on aggressive diuresis and monitor Recurrent palpitation with tachycardia, has been on metoprolol, interrogation of her pacemaker/ICD showed atrial tachycardia with a rate 130 and the pacemaker was sensing and tracking the atrium. She appeared to be responding to sotalol and boluses of metoprolol as needed. I will continue to monitor. Borderline QT interval at this time Paroxysmal atrial fibrillation/flutter had history of ablation at , has been intolerant to take Tykosin, flecainide, propafenone, mild tach and amiodarone. Was in paroxysmal atrial tachycardia, questionable slow atrial flutter, responded to boluses of IV Lopressor with sotalol loading dose. I will continue to monitor History of nonsustained ventricular tachycardia had ablation done 5 years ago. has BiV/ICD implanted, interrogation showed no shocks, episode of slow atrial tachycardia with a rate 130. Coronary artery disease, cardiac catheterization done on 08/20/2013 and repeated on September 12, 2017 showing mild coronary artery disease nonobstructive disease. Continue to monitor History of acute cholecystitis, status post emergent cholecystectomy as well as repair of the liver bleed by Dr. Moran earlier this year. Patient improved. Sick sinus syndrome, symptomatically bradycardia with heart rate in the 30s, status post dual-chamber pacemaker implantation , Bi-V upgrade done 04/25/18. Allergy to Entresto with severe itching Allergic to sulfa, rosuvastatin, has been on Lipitor and tolerating it Hypertension-controlled. Continue to monitor blood pressure/heart rate. Hyperlipidemia, continue to monitor lipids Gastroesophageal reflux managed by primary care physician COPD, using C Pap at night, followed by primary care physician. Carotid ultrasound showing no significant stenosis done in September 2016. Continue to monitor. Depression Clinical Quality Measures AMI/AHF: ASA po Prior to arrival: No DVT/VTE Risk/Contraindication: Risk Factor Score Per Nursin RFS Level Per Nursing on Admit: 4+=Very High ELISE RIDER MD Jul 02, 2018 07:58
[2018-07-02] MEDS: SOTALOL 80 MG (BETAPACE) TAB PO SCH ×2 (09:02→20:30)
[2018-07-02] MEDS: PANTOPRAZOLE 40 MG (PROTONIX) TAB PO SCH ×2 (09:02→20:30)
[2018-07-02] MEDS: KCL 10 MEQ TAB (MICRO K) PO SCH (09:03)
--- NOTE | 2018-07-02 10:15 | Progress Note-Hospitalist ---
Subjective HPI/CC On Admission Date Seen by Provider: Jul 02, 2018 Time Seen by Provider: 09:30 This is a 67-year-old white female who presents with a history of in creased dyspnea on exertion and soa, She had a pacemaker defibrillator placed in April and for 5-6 weeks felt really good. She did have paroxysmal atrial fibrillation for which she had a cardioversion about 3 weeks ago. She notes that she's been having a dry cough, diffuse pruritus and pedal edema for the last 2-3 weeks. She is having multifocal PVCs and probable underlying atrial fibrillation omtelemetry with an intermittent paced rhythm. She has been intolerant to multiple antiarrhythmics and Dr. Allen has just put her on sotalol and is monitoring her for tolerance. Subjective/Events-last exam Patient is feeling better today. She has less nausea but her weight is up and her BNP is up. She has had some Zofran that's helped the nausea. She appears to be in a paced rhythm primarily today. Blood pressure is a little bit low but otherwise acceptable. She is eating and drinking fairly well. Review of Systems Pulmonary: Dyspnea (Unchanged) Gastrointestinal: Nausea Objective Exam Vital Signs Vital Signs Date Time Temp Pulse Resp B/P (MAP) Pulse Ox O2 Delivery O2 Flow Rate FiO2 07/02/18 09:00 83 18 107/72 (84) 90 Room Air 07/02/18 08:00 97.8 Capillary Refill : Less Than 3 SecondsLess Than 3 Seconds General Appearance: No Apparent Distress, WD/WN HEENT: Normal ENT Inspection Neck: Non Tender, Supple, JVD Respiratory: Lungs Clear, Normal Breath Sounds, No Accessory Muscle Use, No Respiratory Distress Cardiovascular: Regular Rate, Rhythm, No Edema, Systolic Murmur, Gallop/S3 Gastrointestinal: Normal Bowel Sounds, Non Tender, Soft Rectal: Deferred Back: Normal Inspection Extremity: Normal Range of Motion, No Pedal Edema Neurologic/Psychiatric: Alert, Oriented x3, No Motor/Sensory Deficits, Normal Mood/Affect Skin: Normal Color, Warm/Dry Results/Procedures Lab Laboratory Tests 07/02/18 03:25 Patient resulted labs reviewed. Imaging: Reviewed Imaging Report (No evidence of CHF today) Assessment/Plan Assessment and Plan Assess & Plan/Chief Complaint 1. Acute on chronic congestive heart failure with improved ejection fraction per Dr. Allen's report. Will Hep-Lock IV fluids, she is on twice a day Lasix dosing.\ 2. Underlying atrial tachycardia improved with Sotolol. Patient so far seems to be tolerating this well. 3. Nausea of uncertain etiology 4. Microcytic anemia on Coumadin currently fairly stable 5. History of nonischemic cardiomyopathy Plan continued medication adjustment Critical Care Critical Care: Critically Ill Patient Clinical Quality Measures AMI/AHF: ASA po Prior to arrival: No DVT/VTE Risk/Contraindication: Risk Factor Score Per Nursin RFS Level Per Nursing on Admit: 4+=Very High RUDDY PATINO MD Jul 02, 2018 10:15
[2018-07-02] MEDS ORDERED: meTOprolol 5 MG/5 ML (LOPRESSOR) VIAL ONE (14:49)
[2018-07-02] MEDS ORDERED: meTOprolol 5 MG/5 ML (LOPRESSOR) VIAL IV NR (15:00)
[2018-07-02] MEDS ORDERED: METOCLOPRAMIDE INJ 10 MG/2 ML (REGLAN) IVP PRN (16:15)
[2018-07-02] MEDS: warFARin 5 MG (COUMADIN) TAB PO SCH (17:31)
[2018-07-02] MEDS: TEMAZEPAM 15 MG (RESTORIL) CAP PO PRN (20:30)
[2018-07-02] MEDS: ATORVASTATIN 40 MG (LIPITOR) TABLET PO SCH (20:30)
[2018-07-03] VITALS (18 sets, daily range): BP systolic 97–164; BP diastolic 27–95
[2018-07-03] MEDS: ALPRAZolam 0.25 MG (XANAX) TAB PO PRN ×2 (00:02→21:07)
[2018-07-03] MEDS ORDERED: meTOprolol 5 MG/5 ML (LOPRESSOR) VIAL ONE (00:56)
[2018-07-03] MEDS ORDERED: meTOprolol 5 MG/5 ML (LOPRESSOR) VIAL IV ONE (01:00)
[2018-07-03 03:42] LABS: BASOPHILS # (AUTO) 0.1 10^3/uL (0.0-0.1); BASOPHILS % (AUTO) 1 % (0-10); EOSINOPHILS # (AUTO) 0.1 10^3/uL (0.0-0.3); EOSINOPHILS % (AUTO) 1 % (0-10); HEMATOCRIT 29 % (35-52); HEMOGLOBIN 8.9 G/DL (11.5-16.0); LYMPHOCYTES # (AUTO) 2.9 X 10^3 (1.0-4.0); LYMPHOCYTES % (AUTO) 27 % (12-44); MEAN CORPUSCULAR HEMOGLOBIN 23 PG (25-34); MEAN CORPUSCULAR HGB CONC 31 G/DL (32-36); MEAN CORPUSCULAR VOLUME 75 FL (80-99); MEAN PLATELET VOLUME 9.1 FL (7.4-10.4); MONOCYTES # (AUTO) 0.7 X 10^3 (0.0-1.0); MONOCYTES % (AUTO) 7 % (0-12); NEUTROPHILS # (AUTO) 7.1 X 10^3 (1.8-7.8); NEUTROPHILS % (AUTO) 65 % (42-75); PLATELET COUNT 337 10^3/uL (130-400); RED BLOOD COUNT 3.88 10^6/uL (4.35-5.85); WHITE BLOOD COUNT 10.8 10^3/uL (4.3-11.0)
[2018-07-03 03:56] LABS: INR 2.1 (0.8-1.4); PROTHROMBIN TIME PATIENT 23.4 SEC (12.2-14.7)
[2018-07-03 04:02] LABS: BUN/CREATININE RATIO 21; CALCIUM 8.9 MG/DL (8.5-10.1); CARBON DIOXIDE 20 MMOL/L (21-32); CHLORIDE 106 MMOL/L (98-107); CREATININE SERUM 0.89 MG/DL (0.60-1.30); GFR ESTIMATED > 60; GLUCOSE 115 MG/DL (70-105); MAGNESIUM 2.1 MG/DL (1.8-2.4); PHOSPHORUS 3.5 MG/DL (2.3-4.7); POTASSIUM 3.9 MMOL/L (3.6-5.0); SODIUM 137 MMOL/L (135-145)
[2018-07-03] MEDS: POTASSIUM CL 10MEQ/50ML IVPB 50 ML IV SCH (05:43)
[2018-07-03] MEDS: MAGNESIUM 1 GM/100 ML IVPB 100 ML IV SCH (05:44)
[2018-07-03] MEDS: KCL 20 MEQ TAB (K-DUR) PO SCH (05:44)
[2018-07-03] MEDS: FUROSEMIDE 40 MG/4 ML INJ (LASIX) IV SCH ×2 (06:28→15:40)
[2018-07-03] MEDS: PANTOPRAZOLE 40 MG (PROTONIX) TAB PO SCH ×2 (08:02→20:58)
[2018-07-03] MEDS: SOTALOL 80 MG (BETAPACE) TAB PO SCH ×2 (08:02→20:58)
[2018-07-03] MEDS: KCL 10 MEQ TAB (MICRO K) PO SCH (08:03)
--- NOTE | 2018-07-03 08:41 | Cardiology Progress Note ---
Subjective Date Seen by Provider: Jul 03, 2018 Time Seen by Provider: 08:39 Subjective/Events-last exam patient is sitting in bed, feeling better, no nausea today. Still having dyspnea on exertion. BNP is worse, drinking large amount of fluid, educated in length about diet and limiting fluid intake Review of Systems General: No Chills, No Night Sweats, No Fatigue, No Malaise, No Appetite, No Other HEENT: No Head Aches, No Visual Changes, No Eye Pain, No Ear Pain, No Dysphasia , No Sinus Congestion, No Post Nasal Drip, No Sore Throat, No Other Pulmonary: Dyspnea; No Cough, No Pleuritic Chest Pain, No Other Cardiovascular: Edema; No: Chest Pain, Palpitations, Orthopnea, Paroxysmal Noc. Dyspnea, Lt Headedness, Other Objective-Cardiology Exam Last Set of Vital Signs Vital Signs 07/03/18 07/03/18 07:44 08:00 Pulse 75 Resp 23 B/P (MAP) 123/55 (77) Pulse Ox 97 O2 Delivery Room Air Capillary Refill : Less Than 3 SecondsLess Than 3 Seconds I&O Intake and Output 07/03/18 00:00 Intake Total 2180 ml Balance 2180 ml Intake Oral 1580 ml IV Total 600 ml # Voids 12 # Bowel Movements 2 General: Alert, Oriented X3, Cooperative HEENT: Atraumatic, PERRLA Neck: Supple, No JVD, No Thyromegaly Lungs: Clear to Auscultation, Normal Air Movement Heart: Regular Rate, Normal S1, Normal S2, Other (systolic murmur) Abdomen: Normal Bowel Sounds, Soft, No Tenderness, No Hepatosplenomegaly, No Masses Extremities: No Clubbing, No Cyanosis, No Edema, Normal Pulses, No Tenderness/ Swelling Skin: No Rashes, No Breakdown, No Significant Lesion Neuro: Normal Gait, Normal Speech, Strength at 5/5 X4 Ext, Normal Tone, Sensation Intact Psych/Mental Status: Mental Status NL, Mood NL Results Lab Laboratory Tests 07/03/18 03:35 A/P-Cardiology Admission Diagnosis Congestive heart failure Palpitation Paroxysmal atrial fibrillation Shortness of breath Assessment/Plan Congestive heart failure, acute on chronic left ventricular systolic dysfunction ejection fraction 25-30 percent, nonischemic cardiomyopathy, had bi- V pacemaker implanted on April 25, 2018, repeat echo done on June 17, 2018 showing ejection fraction 55-60 percent, mild mitral regurgitation, moderate tricuspid regurgitation, pulmonary hypertension with PA pressure of 50 mmHg. educated in length about limiting fluid intake, I will give additional dose of Lasix IV today and monitor tolerance and response. Recurrent palpitation with tachycardia, has been on metoprolol, interrogation of her pacemaker/ICD showed atrial tachycardia with a rate 130 and the pacemaker was sensing and tracking the atrium. She appeared to be responding to sotalol and boluses of metoprolol as needed. I will continue to monitor. Borderline QT interval at this time, I am planning to interrogate her ICD today and reprogram it Paroxysmal atrial fibrillation/flutter had history of ablation at , has been intolerant to take Tykosin, flecainide, propafenone, mild tach and amiodarone. Was in paroxysmal atrial tachycardia, questionable slow atrial flutter, responded to boluses of IV Lopressor with sotalol loading dose. I will continue to monitor History of nonsustained ventricular tachycardia had ablation done 5 years ago. has BiV/ICD implanted, interrogation showed no shocks, episode of slow atrial tachycardia with a rate 130. Coronary artery disease, cardiac catheterization done on 08/20/2013 and repeated on September 12, 2017 showing mild coronary artery disease nonobstructive disease. Continue to monitor History of acute cholecystitis, status post emergent cholecystectomy as well as repair of the liver bleed by Dr. Moran earlier this year. Patient improved. Sick sinus syndrome, symptomatically bradycardia with heart rate in the 30s, status post dual-chamber pacemaker implantation , Bi-V upgrade done 04/25/18. Allergy to Entresto with severe itching Allergic to sulfa, rosuvastatin, has been on Lipitor and tolerating it Hypertension-controlled. Continue to monitor blood pressure/heart rate. Hyperlipidemia, continue to monitor lipids Gastroesophageal reflux managed by primary care physician COPD, using C Pap at night, followed by primary care physician. Carotid ultrasound showing no significant stenosis done in September 2016. Continue to monitor. Depression I will continue monitoring, planning to repeat EKG after the evening dose of sotalol and then will consider discharging her Clinical Quality Measures AMI/AHF: ASA po Prior to arrival: No DVT/VTE Risk/Contraindication: Risk Factor Score Per Nursin RFS Level Per Nursing on Admit: 4+=Very High ELISE RIDER MD Jul 03, 2018 08:41
[2018-07-03] MEDS ORDERED: FUROSEMIDE 40 MG/4 ML INJ (LASIX) IVP NR (08:45)
[2018-07-03] MEDS ORDERED: FURO80TA3 PO (09:45)
[2018-07-03] MEDS ORDERED: WARF-48 PO ×2 (09:45)
[2018-07-03] MEDS ORDERED: POTA10CA43 PO (09:45)
--- NOTE | 2018-07-03 09:50 | Diagnostic Imaging Report ---
INDICATION: Atrial fibrillation, rapid ventricular response. TECHNIQUE: Single view chest 3:02 AM. CORRELATION STUDY: 07/02/2018 FINDINGS: Left-sided AICD remains in place. This obscures the left lung. Heart size does appear to be enlarged. Vascular overall generally stable given limited depth of inspiration. The visualized lung perez appear generally clear and unremarkable. IMPRESSION: 1. Overall relatively stable chest given limited depth of inspiration. Stable cardiac enlargement. Dictated by: Dictated on workstation # [id number]
[2018-07-03] MEDS: warFARin 5 MG (COUMADIN) TAB PO SCH (17:49)
--- NOTE | 2018-07-03 18:22 | Progress Note (SOAP) ---
Subjective Date Seen by a Provider: Jul 03, 2018 Time Seen by a Provider: 08:20 Subjective/Events-last exam Fwup atrial fibrillation/atrial flutter, acute on chronic systolic CHF. Had to be taken off entresto due to itching and coughing. Has been started on sotalol but still had episodes of atrial flutter so cardiology adjusting dose. Objective Exam Vital Signs Date Time Temp Pulse Resp B/P (MAP) Pulse Ox O2 Delivery O2 Flow Rate FiO2 07/03/18 17:00 78 17 97/83 (88) 97 Room Air 07/03/18 16:00 97 Room Air 07/03/18 16:00 73 19 140/76 (97) 98 Room Air 07/03/18 15:00 69 13 164/95 (118) 97 Room Air 07/03/18 14:00 72 27 126/27 (60) 99 Room Air 07/03/18 13:00 70 15 119/80 (93) 99 Room Air 07/03/18 13:00 73 07/03/18 12:00 69 19 118/68 (85) 95 Room Air 07/03/18 12:00 97 Room Air 07/03/18 11:00 69 13 112/57 (75) 98 Room Air 07/03/18 10:00 74 97 Room Air 07/03/18 09:00 69 20 120/64 (82) 100 Room Air 07/03/18 09:00 75 19 120/64 (82) Room Air 07/03/18 08:00 75 23 123/55 (77) Room Air 07/03/18 07:44 97 Room Air 07/03/18 07:00 90 07/03/18 07:00 124 17 113/82 (92) 96 Room Air 07/03/18 06:00 80 20 111/62 (78) 95 Room Air 07/03/18 05:00 70 20 113/55 (74) Room Air 07/03/18 04:00 72 19 111/67 (82) Room Air 07/03/18 04:00 98.0 07/03/18 04:00 96 Room Air 07/03/18 03:00 130 22 112/66 (81) 96 Room Air 07/03/18 02:00 107 19 108/71 (83) 94 Room Air 07/03/18 01:00 130 15 107/59 (75) 96 Room Air 07/03/18 01:00 130 07/03/18 00:25 Room Air 07/03/18 00:25 97.4 07/03/18 00:00 70 17 122/47 (72) 91 Room Air 07/02/18 23:00 73 27 120/65 (83) 99 Room Air 07/02/18 22:00 75 22 123/89 (100) 91 Room Air 07/02/18 21:00 71 19 108/53 (71) 98 Room Air 07/02/18 20:00 69 19 111/76 (88) 97 Room Air 07/02/18 19:46 Room Air 07/02/18 19:45 99.5 07/02/18 19:00 68 18 103/55 (71) Room Air 07/02/18 19:00 70 I & O 07/03/18 07:00 Intake Total 2230 ml Balance 2230 ml Capillary Refill : Less Than 3 SecondsLess Than 3 Seconds General Appearance: No Apparent Distress Neck: Supple Respiratory: Lungs Clear Cardiovascular: Systolic Murmur, Gallop/S4, Irregularly Irregular Gastrointestinal: normal bowel sounds, non tender, soft Extremity: Non Tender, No Calf Tenderness, No Pedal Edema Neurologic/Psychiatric: Alert, Oriented x3 Skin: Warm/Dry Results Lab Laboratory Tests 07/03/18 03:35: White Blood Count 10.8, Red Blood Count 3.88L, Hemoglobin 8.9L, Hematocrit 29L, Mean Corpuscular Volume 75L, Mean Corpuscular Hemoglobin 23L, Mean Corpuscular Hemoglobin Concent 31L, Red Cell Distribution Width 22.0H, Platelet Count 337, Mean Platelet Volume 9.1, Neutrophils (%) (Auto) 65, Lymphocytes (%) (Auto) 27, Monocytes (%) (Auto) 7, Eosinophils (%) (Auto) 1, Basophils (%) (Auto) 1, Neutrophils # (Auto) 7.1, Lymphocytes # (Auto) 2.9, Monocytes # (Auto) 0.7, Eosinophils # (Auto) 0.1, Basophils # (Auto) 0.1, Prothrombin Time 23.4H, INR Comment 2.1H, Sodium Level 137, Potassium Level 3.9, Chloride Level 106, Carbon Dioxide Level 20L, Anion Gap 11, Blood Urea Nitrogen 19H, Creatinine 0.89, Estimat Glomerular Filtration Rate > 60, BUN/Creatinine Ratio 21, Glucose Level 115H, Calcium Level 8.9, Phosphorus Level 3.5, Magnesium Level 2.1, B-Type Natriuretic Peptide 946.3H Microbiology 06/30/18 MRSA Screen - Final, Complete MRSA not isolated Assessment/Plan Assessment/Plan Assess & Plan/Chief Complaint 1. Atrial fibrillation/Atrial flutter--on sotalol with adjustment per cardiology 2. Acute on Chronic Systolic CHF--did not tolerate entresto and BNP has worsened Clinical Quality Measures AMI/AHF: ASA po Prior to arrival: No DVT/VTE Risk/Contraindication: Risk Factor Score Per Nursin RFS Level Per Nursing on Admit: 4+=Very High FARHAT SERNA DO Jul 03, 2018 18:22
[2018-07-03] MEDS: ATORVASTATIN 40 MG (LIPITOR) TABLET PO SCH (20:58)
[2018-07-03] MEDS: TEMAZEPAM 15 MG (RESTORIL) CAP PO PRN (21:07)
[2018-07-04 00:08] VITALS: BP 115/55
[2018-07-04 04:00] VITALS: BP 120/62
[2018-07-04 05:13] LABS: INR 2.2 (0.8-1.4); PROTHROMBIN TIME PATIENT 24.7 SEC (12.2-14.7)
[2018-07-04] MEDS: FUROSEMIDE 40 MG/4 ML INJ (LASIX) IV SCH (06:45)
--- NOTE | 2018-07-04 07:23 | Cardiology Progress Note ---
Subjective Date Seen by Provider: Jul 04, 2018 Time Seen by Provider: 07:20 Subjective/Events-last exam patient is feeling better, sitting up in a chair. No chest pain. No shortness of breath. Heart rate is better Review of Systems General: No Chills, No Night Sweats, No Fatigue, No Malaise, No Appetite, No Other HEENT: No Head Aches, No Visual Changes, No Eye Pain, No Ear Pain, No Dysphasia , No Sinus Congestion, No Post Nasal Drip, No Sore Throat, No Other Pulmonary: No Dyspnea, No Cough, No Pleuritic Chest Pain, No Other Cardiovascular: No: Chest Pain, Palpitations, Orthopnea, Paroxysmal Noc. Dyspnea, Edema, Lt Headedness, Other Objective-Cardiology Exam Last Set of Vital Signs Vital Signs 07/04/18 07/04/18 00:08 01:00 Temp 96.7 Pulse 77 Resp 18 B/P (MAP) 115/55 (75) Pulse Ox 96 O2 Delivery Room Air Capillary Refill : Less Than 3 SecondsLess Than 3 Seconds I&O Intake and Output 07/04/18 00:00 Intake Total 1795 ml Output Total 2650 ml Balance -855 ml Intake Oral 1795 ml Output Urine Total 2650 ml # Voids 3 # Bowel Movements 1 General: Alert, Oriented X3, Cooperative HEENT: Atraumatic, PERRLA Neck: Supple, No JVD, No Thyromegaly Lungs: Clear to Auscultation, Normal Air Movement Heart: Regular Rate, Normal S1, Normal S2, Other (systolic murmur) Abdomen: Normal Bowel Sounds, Soft, No Tenderness, No Hepatosplenomegaly, No Masses Extremities: No Clubbing, No Cyanosis, No Edema, Normal Pulses, No Tenderness/ Swelling Skin: No Rashes, No Breakdown, No Significant Lesion Neuro: Normal Gait, Normal Speech, Strength at 5/5 X4 Ext, Normal Tone, Sensation Intact Psych/Mental Status: Mental Status NL, Mood NL Results Lab Laboratory Tests Test 07/04/18 04:05 Range/Units Prothrombin Time 24.7 H 12.2-14.7 SEC INR Comment 2.2 H 0.8-1.4 A/P-Cardiology Admission Diagnosis Congestive heart failure Palpitation Paroxysmal atrial fibrillation Shortness of breath Assessment/Plan Congestive heart failure, acute on chronic left ventricular systolic dysfunction ejection fraction 25-30 percent, nonischemic cardiomyopathy, had bi- V pacemaker implanted on April 25, 2018, repeat echo done on June 17, 2018 showing ejection fraction 55-60 percent, mild mitral regurgitation, moderate tricuspid regurgitation, pulmonary hypertension with PA pressure of 50 mmHg. educated in length about limiting fluid intake, feeling better today, ok for discharge Recurrent palpitation with tachycardia, has been on metoprolol, interrogation of her pacemaker/ICD showed atrial tachycardia with a rate 130 and the pacemaker was sensing and tracking the atrium. She appeared to be responding to sotalol and boluses of metoprolol as needed. I will continue to monitor. Borderline QT interval at this time, ICD interrogation showed atrial flutter with pacemaker tracking the atrium, I adjusted the setting of her pacemaker. Heart rate is better. Paroxysmal atrial fibrillation/flutter had history of ablation at , has been intolerant to take Tykosin, flecainide, propafenone, mild tach and amiodarone. Was in paroxysmal atrial tachycardia, questionable slow atrial flutter, responded to boluses of IV Lopressor with sotalol loading dose. I will continue to monitor History of nonsustained ventricular tachycardia had ablation done 5 years ago. has BiV/ICD implanted, interrogation showed no shocks, episode of slow atrial tachycardia with a rate 130. Coronary artery disease, cardiac catheterization done on 08/20/2013 and repeated on September 12, 2017 showing mild coronary artery disease nonobstructive disease. Continue to monitor History of acute cholecystitis, status post emergent cholecystectomy as well as repair of the liver bleed by Dr. Moran earlier this year. Patient improved. Sick sinus syndrome, symptomatically bradycardia with heart rate in the 30s, status post dual-chamber pacemaker implantation , Bi-V upgrade done 04/25/18. Allergy to Entresto with severe itching Allergic to sulfa, rosuvastatin, has been on Lipitor and tolerating it Hypertension-controlled. Continue to monitor blood pressure/heart rate. Hyperlipidemia, continue to monitor lipids Gastroesophageal reflux managed by primary care physician COPD, using C Pap at night, followed by primary care physician. Carotid ultrasound showing no significant stenosis done in September 2016. Continue to monitor. Depression okay for discharge from cardiology standpoint, follow-up in my office in 2 weeks Clinical Quality Measures AMI/AHF: ASA po Prior to arrival: No DVT/VTE Risk/Contraindication: Risk Factor Score Per Nursin RFS Level Per Nursing on Admit: 4+=Very High ELISE RIDER MD Jul 04, 2018 07:23
[2018-07-04] MEDS ORDERED: Sotalol Hcl PO (07:24)
[2018-07-04 08:00] VITALS: BP 120/58
[2018-07-04] MEDS: KCL 10 MEQ TAB (MICRO K) PO SCH (08:08)
[2018-07-04] MEDS: SOTALOL 80 MG (BETAPACE) TAB PO SCH (08:08)
[2018-07-04] MEDS: PANTOPRAZOLE 40 MG (PROTONIX) TAB PO SCH (08:08)
--- NOTE | 2018-07-04 18:14 | Discharge Summary ---
Diagnosis/Chief Complaint Date of Admission Jun 30, 2018 at 18:10 Date of Discharge Jul 04, 2018 at 14:30 Discharge Diagnosis 1. Atrial Fibrillation/Atrial Flutter--improving with sotalol 2. Acute on Chronic Systolic Congestive Heart Failure--entresto stopped due to allergy 3. Hypertension--stable 4. GERD--stable 5. Anxiety--stable 6. Nausea--resolved Discharge Summary Hospital Course Hospital Course This is a 67 year old female with a known history of atrial fibrillation and CHF who presented to the emergency room to to a fast heart rate. She was found to be in atrial fibrillation with RVR with a heart rate in the 130s. She felt like she was having an allergic reaction to her entresto due to diffuse itching especially in the vaginal area and cough. She was admitted to the ICU and started on sotalol. She initially had nausea so there was concern this was from the sotalol but this was resolved by discharge. Her itching and cough did improved with discontinuation of the sotalol. She had breakthrough atrial flutter with the sotalol so her dose was increased by cardiology. Her breakthrough atrial flutter improved and it was decided she could go home on the sotalol with followup with cardiology in 2 weeks. She has a followup with me on July 10 and will keep this. Labs Laboratory Tests 07/02/18 03:25: Red Blood Count 3.85L, Hemoglobin 8.9L, Hematocrit 29L, Mean Corpuscular Volume 76L, Mean Corpuscular Hemoglobin 23L, Mean Corpuscular Hemoglobin Concent 31L, Red Cell Distribution Width 22.3H, Prothrombin Time 22.7H, INR Comment 2.0H, Carbon Dioxide Level 19L, Blood Urea Nitrogen 21H, Glucose Level 117H, B-Type Natriuretic Peptide 748.3H 07/03/18 03:35: Red Blood Count 3.88L, Hemoglobin 8.9L, Hematocrit 29L, Mean Corpuscular Volume 75L, Mean Corpuscular Hemoglobin 23L, Mean Corpuscular Hemoglobin Concent 31L, Red Cell Distribution Width 22.0H, Prothrombin Time 23.4H, INR Comment 2.1H, Carbon Dioxide Level 20L, Blood Urea Nitrogen 19H, Glucose Level 115H, B-Type Natriuretic Peptide 946.3H 07/04/18 04:05: Prothrombin Time 24.7H, INR Comment 2.2H Procedures None. Consultations Cardiology--Dr. Hewitt Discharge Physical Examination Allergies: Coded Allergies: rosuvastatin (Unverified Allergy, Mild, 03/06/18) sacubitril (Verified Allergy, Mild, RASH, 07/01/18) PATIENT HAS ITCHING FROM MEDICATION valsartan (Verified Allergy, Mild, RASH, 07/01/18) PATIENT HAS ITCHING FROM MEDICATION Sulfa (Sulfonamide Antibiotics) (Verified Allergy, Unknown, 03/06/18) Vitals & I&Os Vital Signs Date Time Temp Pulse Resp B/P (MAP) Pulse Ox O2 Delivery O2 Flow Rate FiO2 07/04/18 14:30 07/04/18 12:43 71 07/04/18 08:00 97.7 16 97 Room Air General Appearance: Alert, Oriented X3, Cooperative, No Acute Distress Respiratory: Clear to Auscultation Cardiovascular: Regular Rate Abdominal: Normal Bowel Sounds, Soft, No Tenderness Extremities: No Clubbing, No Cyanosis, No Edema Psych/Mental Status: Mental Status NL, Mood NL Discharge Home Medications Reviewed and agree with Discharge Medication list on patient's Discharge Instruction sheet Instructions to Patient/Family Please see electronic discharge instructions given to patient. Clinical Quality Measures AMI/AHF: ASA po Prior to arrival: No DVT/VTE Risk/Contraindication: Risk Factor Score Per Nursin RFS Level Per Nursing on Admit: 4+=Very High FARHAT SERNA DO Jul 04, 2018 18:14
== END 2018-07-04 14:30 | disposition home or self-care (01) | DRG 308 ==
LOC: EDUNIT# 15:25 → ER 15:26 → ICU 18:10 → 4TH 07-03 20:34
PROVIDERS: ADMIT Internal Medicine; ATTEND Internal Medicine
DX: I48.0 Paroxysmal atrial fibrillation (principal); I49.3 Ventricular premature depolarization; I11.0 Hypertensive heart disease with heart failure; I50.23 Acute on chronic systolic (congestive) heart failure; I08.1 Rheumatic disorders of both mitral and tricuspid valves; I27.20 Pulmonary hypertension, unspecified; I42.8 Other cardiomyopathies; I48.92 Unspecified atrial flutter; R05 Cough; L29.9 Pruritus, unspecified; T46.905A Adverse effect of unspecified agents primarily affecting the cardiovascular system, initial encounter; I25.10 Atherosclerotic heart disease of native coronary artery without angina pectoris; E78.5 Hyperlipidemia, unspecified; K21.9 Gastro-esophageal reflux disease without esophagitis; J44.9 Chronic obstructive pulmonary disease, unspecified; F32.9 Major depressive disorder, single episode, unspecified; G47.33 Obstructive sleep apnea (adult) (pediatric); E87.6 Hypokalemia; D50.0 Iron deficiency anemia secondary to blood loss (chronic); F41.9 Anxiety disorder, unspecified; R11.0 Nausea; Z95.810 Presence of automatic (implantable) cardiac defibrillator; Z79.01 Long term (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; Z88.8 Allergy status to other drugs, medicaments and biological substances; Z88.2 Allergy status to sulfonamides; Z91.09 Other allergy status, other than to drugs and biological substances; Z87.440 Personal history of urinary (tract) infections
CPT/HCPCS: 36415; 71045; 80048; 80053; 81000; 83735; 83874; 83880; 84100; 84443; 84484; 85025; 85027; 85610; 85730; 87081; 93005; 96361; 96374

== ENCOUNTER 2018-07-08 09:32 | Emergency (ER) | payer MEDICARE, OTHER ==
[~2018-07-08] VITALS: Ht 144.8 cm; Wt 62.1 kg
[~2018-07-08 09:32] MED LIST changes: +FURO80TA3 PO; +POTA10CA43 PO; +Sotalol Hcl PO
--- OUTSIDE RECORDS SUMMARY | 2018-07-08 09:40 | XMS REPORT | Clinical Summary ---
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 If you do not see the information that you expected, contact Release of Information in the Health Information Management department at [phone] for further assistance in locating additional records.[facility] Allergies Comments Active Allergy Reactions Severity Noted [...] showed no obstructive disease. She has a [id number] score of 2--Female, HTN. Please refer to [...] the last 2-[address] Hewitt, in [place], did a CARDIAC CATH 08/2013 and her [...] rhythm. Atrial fibrillation 07/07/2014 Overview: 05/13/14: VICKIE: [facility]: EF 50% Echogenic density was [...] Cardioversion Ventricular tachycardia 06/15/2014 Overview: 08/20/13: Cath: [facility]: EF 60% dominant circumflex [...] metoprolol poorly Atrial flutter 11/07/2010 Overview: SEI [id number] CHADS2=one (HTN) Fall 2010-no flutteror AF-OK to DC Pradaxa L ast Assessment & Plan: No recurrence since ablation. 48 hour holter on 08/16/13 was negative for any atrial arrhythmias. Continues to be on daily aspirin therapy. Hyperlipidemia 09/22/2010 Last Assessment & Plan: Continues to be managed by Dr. Hewitt's office. Atypical chest pain Overview: 07/2007: [facility] @ [facility]: no significant CAD. 20% mid circ. EF-wnl. RCA-spasm during cath. 05/18/2010: [facility] @ [facility]: No obstructive CAD, normal LV size/function. EF 60% HTN (hypertension) Last Assessment & Plan: Well controlled on current therapy. Palpitations Overview: 07/2007 - Complete echocardiogram: Ejection fraction 60%. Mild left ventricular hypertrophy. Trace MR. Mild TR. 30 day event monitor showed Atrial Tach at 140-150bpm for 2-4 sec.. Toprol 25mg XL qd. 08/18/13: MPI: [facility]: EF 59%. Fair exercise tolerance. Frequent VPDs, ventricular bigeminy and ventricular couplets noted at rest and during recovery phase. Non diagnostic ECG changes with exercise. Reversible ischemia involving the whole anterior wall and anterior apex. 01/06/14: Echo: [facility]: EF 60% bradycardia in 40's for procedure. Left atrial dilatation. Moderate mitral regurgitation. Moderate tricuspid regurgitation. Estimated PAP of 40 mmHg Resolved Problems Problem Noted Date Resolved Date Cardiac pacemaker in situ 11/20/2016 11/22/2016 Family History Medical History Relation Name Comments Coronary Artery Disease Brother Coronary Artery Disease Brother Heart Attack Brother Arrhythmia Brother atrial flutter Coronary Artery Disease Father Heart Attack Father Stroke Mother Relation Name Status Comments Brother Alive Brother Alive Brother Brother Father [place] (Age 47) Mother Social History Date Tobacco [...] Implanted Type Area Manufactur er Pacemaker Pacemaker Results Not on filefrom Last 3 Months Insurance Payer Benefit Subscriber ID Type Phone Address Plan / Group MEDICARE MEDICARE xxxxxxxxxx Medicare PART A AND B CIGNA CIGNA xxxxxxxxxx Medicare MEDICARE SUPPLEMENT Advance Directives Patient has advance care planning documents, and code status on file. For more information, please contact: [facility] [address] [place] [address] Date Inactivated Comments Code Status Date Activated [...]
[2018-07-08] MEDS ORDERED: ASPIRIN 81 MG CHEW (CHILDREN'S ASA) PO ONE (10:00)
[2018-07-08 10:07] LABS: BASOPHILS % (AUTO) 1 % (0-10); EOSINOPHILS # (AUTO) 0.1 10^3/uL (0.0-0.3); EOSINOPHILS % (AUTO) 1 % (0-10); HEMATOCRIT 31 % (35-52); HEMOGLOBIN 9.3 G/DL (11.5-16.0); LYMPHOCYTES # (AUTO) 2.3 X 10^3 (1.0-4.0); LYMPHOCYTES % (AUTO) 27 % (12-44); MEAN CORPUSCULAR HEMOGLOBIN 22 PG (25-34); MEAN CORPUSCULAR HGB CONC 30 G/DL (32-36); MEAN CORPUSCULAR VOLUME 75 FL (80-99); MEAN PLATELET VOLUME 9.7 FL (7.4-10.4); MONOCYTES # (AUTO) 0.6 X 10^3 (0.0-1.0); MONOCYTES % (AUTO) 7 % (0-12); NEUTROPHILS # (AUTO) 5.7 X 10^3 (1.8-7.8); NEUTROPHILS % (AUTO) 65 % (42-75); PLATELET COUNT 299 10^3/uL (130-400); RED BLOOD COUNT 4.15 10^6/uL (4.35-5.85); RED CELL DISTRIBUTION WIDTH 21.6 % (10.0-14.5); WHITE BLOOD COUNT 8.7 10^3/uL (4.3-11.0)
[2018-07-08 10:14] LABS: INR 2.3 (0.8-1.4); PROTHROMBIN TIME PATIENT 25.4 SEC (12.2-14.7)
[2018-07-08 10:19] LABS: ALANINE AMINOTRANSFERASE 15 U/L (0-55); ALBUMIN 4.4 GM/DL (3.2-4.5); ALKALINE PHOSPHATASE 158 U/L (40-136); BILIRUBIN,TOTAL 1.6 MG/DL (0.1-1.0); BUN/CREATININE RATIO 21; CALCIUM 9.2 MG/DL (8.5-10.1); CARBON DIOXIDE 19 MMOL/L (21-32); CHLORIDE 101 MMOL/L (98-107); CREATININE SERUM 1.05 MG/DL (0.60-1.30); GFR ESTIMATED 53; GLUCOSE 161 MG/DL (70-105); POTASSIUM 4.1 MMOL/L (3.6-5.0); SODIUM 137 MMOL/L (135-145); TOTAL PROTEIN 7.7 GM/DL (6.4-8.2)
[2018-07-08 10:25] LABS: MYOGLOBIN SERUM 34.8 NG/ML (10.0-92.0)
--- NOTE | 2018-07-08 10:41 | Diagnostic Imaging Report ---
Portable erect AP chest at 1024 hours. INDICATION: Shortness of breath. FINDINGS: The cardiomegaly and the left-sided defibrillator device seen on the prior exam of 07/03/2018 are again evident and no different. The lungs are clear. There is no sign of failure, pneumonia or pleural effusion to indicate an acute abnormality. The mediastinum is not widened. The osseous structures are intact. IMPRESSION: Stable chest. There has been no adverse change since the prior exam. Dictated by: Dictated on workstation # [id number]
--- NOTE | 2018-07-08 11:11 | ED Cardiac General ---
History of Present Illness General Chief Complaint: Respiratory Problems Stated Complaint: SOB Nursing Triage Note: pt presents to ed with complaints of soa and generalized fatigued x 2 days. reports no cp. pt states she was just discharged 07/04/18. Source: patient History of Present Illness Date Seen by Provider: Jul 08, 2018 Time Seen by Provider: 09:53 Initial Comments Here with increasing shortness of air over the last week. Patient has history of A. fib and is paced. She was in the hospital last week for heart failure and A. fib with RVR over pacing. She was started on sotalol at that time. She has had increasing shortness of breath and increasing tiredness over the last week. She has dyspnea on exertion. Does report weakness. Timing/Duration: 1 week, getting worse Severity: moderate Location: central Activities at Onset: activity Prior CP/Workup: cardiac cath, echocardiography, stress test Modifying Factors: worse with exercise; improves with rest NTG SL ADMINISTRATIVE MEDICAL DIRECTOR: No ASA po ADMINISTRATIVE MEDICAL DIRECTOR: No Associated Systoms: No Chest Pain, No Cough, No Fever/Chills, No Nausea/ Vomiting; Shortness of Air, Weakness Allergies and Home Medications Allergies Coded Allergies: rosuvastatin (Unverified Allergy, Mild, 03/06/18) sacubitril (Verified Allergy, Mild, RASH, 07/01/18) PATIENT HAS ITCHING FROM MEDICATION valsartan (Verified Allergy, Mild, RASH, 07/01/18) PATIENT HAS ITCHING FROM MEDICATION Sulfa (Sulfonamide Antibiotics) (Verified Allergy, Unknown, 03/06/18) Home Medications Acetaminophen 500 Mg Tablet, 500-1,000 MG PO Q6H PRN for PAIN-MILD, (Reported) Alprazolam 0.5 Mg Tablet, 0.25-0.5 MG PO TID PRN for ANXIETY, (Reported) TAKES 1/2 TO 1 (0.5 MG) TABLET Atorvastatin Calcium 40 Mg Tablet, 20 MG PO HS, (Reported) Cranberry Extract/Vit C 1 Each Capsule, 1 CAP PO DAILY, (Reported) Escitalopram Oxalate 20 Mg Tablet, 10 MG PO DAILY, (Reported) TAKES 1/2 (20MG) TABLET Furosemide 80 Mg Tablet, 80 MG PO DAILY, (Reported) Pantoprazole Sodium 40 Mg Tablet.dr, 40 MG PO BID, (Reported) Potassium Chloride 10 Meq Capsule.er, 20 MEQ PO DAILY, (Reported) TAKES 2 (10MEQ) CAPSULES Temazepam 15 Mg Capsule, 15 MG PO HS PRN for SLEEP, (Reported) Warfarin Sodium 5 Mg Tablet, 5 MG PO SuTuThSa, (Reported) Warfarin Sodium 5 Mg Tablet, 2.5 MG PO MoWeFr, (Reported) [Sotalol Hcl] 80 MG TAB, 80 MG PO BID Prescribed by: ELISE HEWITT on 07/04/18 0724 Patient Home Medication List Home Medication List Reviewed: Yes Review of Systems Review of Systems Constitutional: see HPI; No chills, No fever EENTM: No Symptoms Reported Respiratory: Denies Cough; Shortness of Air, SOA With Exertion; Denies Wheezing Cardiovascular: Denies Chest Pain, Denies Edema; Irregular Heart Rate, Lightheadedness Gastrointestinal: Denies Abdominal Pain, Denies Diarrhea, Denies Vomiting Genitourinary: No Symptoms Reported Musculoskeletal: no symptoms reported Skin: no symptoms reported Psychiatric/Neurological: See HPI All Other Systems Reviewed Negative Unless Noted: Yes Past Mzuexqn-Zgmnpk-Ktsbqc Hx Past Med/Social Hx: Reviewed Nursing Past Med/Soc Hx Patient Social History Alcohol Use: Denies Use Number of Drinks Today: II Alcohol Beverage of Choice: Wine, Other Recreational Drug Use: No Smoking Status: Never a Smoker 2nd Hand Smoke Exposure: Yes Recent Foreign Travel: No Contact w/Someone Who Travel: No Recent Infectious Disease Expo: No Recent Hopitalizations: Yes (JANUARY 2018-GALLBLADDER X 1 WEEK) Physical Abuse: No Sexual Abuse: No Mistreated: No Fear: No Immunizations Up To Date Tetanus Booster (TDap): Less than 5yrs PED Vaccines UTD: No Date of Pneumonia Vaccine: Apr 26, 2018 Date of Influenza Vaccine: Apr 26, 2018 Seasonal Allergies Seasonal Allergies: No Past Medical History Surgeries: Yes (HYST,BREAST REDUCTION,OOPH.,RECTOCELE) Bladder Surgery, Defibrillator, Gallbladder, Pacemaker Respiratory: No Sleep Apnea Currently Using CPAP: Yes (at night) Currently Using BIPAP: No Cardiac: Yes (heart failure) Atrial Fibrillation, Cardiomyopathy, Hypertension, Irregular Heartbeat Neurological: No Reproductive Disorders: No (X1 MISCARRIAGE) 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 Sexually Transmitted Disease: No HIV/AIDS: No Genitourinary: Yes UTI-Chronic Gastrointestinal: No (HX C-DIFF) Gastroesophageal Reflux, Diverticulosis Musculoskeletal: Yes (GENERALIZED WEAKNESS-SINCE SEPSIS JANUARY 2018) Endocrine: No HEENT: Yes (left eye problem with vision) Loss of Vision: Bilateral Hearing Impairment: Denies, Hard of Hearing Cancer: No Psychosocial: Yes Anxiety, Depression Integumentary: No Blood Disorders: No Adverse Reaction/Blood Tranf: No (HAS HAD BLOOD WITH NO REACTIION) Family Medical History Reviewed Nursing Family Hx Heart Disease, CAD Under 55 Years Old Physical Exam Vital Signs Vital Signs - First Documented 07/08/18 09:54 Temp 97.9 Pulse 70 Resp 18 B/P (MAP) 138/86 (103) Pulse Ox 97 Capillary Refill : Less Than 3 Seconds Height, Weight, BMI Height: 4'9.00" Weight: 137lbs. 14.4oz. 62.857084gx; 26.2 BMI Method:Stated General Appearance: No Apparent Distress, WD/WN HEENT: PERRL/EOMI, Pharynx Normal Neck: Non Tender, Supple Respiratory: Lungs Clear, Normal Breath Sounds Cardiovascular: No Edema, No Murmur, Irregularly Irregular Gastrointestinal: Non Tender, Soft Extremity: Normal Inspection, Normal Range of Motion, Non Tender, No Calf Tenderness, No Pedal Edema Neurologic/Psychiatric: Alert, Oriented x3, No Motor/Sensory Deficits Skin: Normal Color, Warm/Dry Procedures/Interventions Date of ETT Placement: Jan 07, 2018 Progress/Results/Core Measures Results/Orders Lab Results Laboratory Tests Test 07/08/18 09:52 07/08/18 11:26 Range/Units White Blood Count 8.7 4.3-11.0 10^3/uL Red Blood Count 4.15 L 4.35-5.85 10^6/uL Hemoglobin 9.3 L 11.5-16.0 G/DL Hematocrit 31 L 35-52 % Mean Corpuscular Volume 75 L 80-99 FL Mean Corpuscular Hemoglobin 22 L 25-34 PG Mean Corpuscular Hemoglobin Concent 30 L 32-36 G/DL Red Cell Distribution Width 21.6 H 10.0-14.5 % Platelet Count 299 130-400 10^3/uL Mean Platelet Volume 9.7 7.4-10.4 FL Neutrophils (%) (Auto) 65 42-75 % Lymphocytes (%) (Auto) 27 12-44 % Monocytes (%) (Auto) 7 0-12 % Eosinophils (%) (Auto) 1 0-10 % Basophils (%) (Auto) 1 0-10 % Neutrophils # (Auto) 5.7 1.8-7.8 X 10^3 Lymphocytes # (Auto) 2.3 1.0-4.0 X 10^3 Monocytes # (Auto) 0.6 0.0-1.0 X 10^3 Eosinophils # (Auto) 0.1 0.0-0.3 10^3/uL Basophils # (Auto) 0.0 0.0-0.1 10^3/uL Prothrombin Time 25.4 H 12.2-14.7 SEC INR Comment 2.3 H 0.8-1.4 Activated Partial Thromboplast Time 38 H 24-35 SEC Sodium Level 137 135-145 MMOL/L Potassium Level 4.1 3.6-5.0 MMOL/L Chloride Level 101 98-107 MMOL/L Carbon Dioxide Level 19 L 21-32 MMOL/L Anion Gap 17 H 5-14 MMOL/L Blood Urea Nitrogen 22 H 7-18 MG/DL Creatinine 1.05 0.60-1.30 MG/DL Estimat Glomerular Filtration Rate 53 BUN/Creatinine Ratio 21 Glucose Level 161 H 70-105 MG/DL Calcium Level 9.2 8.5-10.1 MG/DL Corrected Calcium 8.9 8.5-10.1 MG/DL Magnesium Level 2.0 1.8-2.4 MG/DL Total Bilirubin 1.6 H 0.1-1.0 MG/DL Aspartate Amino Transf (AST/SGOT) 30 5-34 U/L Alanine Aminotransferase (ALT/SGPT) 15 0-55 U/L Alkaline Phosphatase 158 H 40-136 U/L Myoglobin 34.8 10.0-92.0 NG/ML Troponin I < 0.30 <0.30 NG/ML B-Type Natriuretic Peptide 619.4 H <100.0 PG/ML Total Protein 7.7 6.4-8.2 GM/DL Albumin 4.4 3.2-4.5 GM/DL Urine Color YELLOW Urine Clarity CLEAR Urine pH 5 5-9 Urine Specific Fletcher 1.015 L 1.016-1.022 Urine Protein 1+ H NEGATIVE Urine Glucose (UA) NEGATIVE NEGATIVE Urine Ketones NEGATIVE NEGATIVE Urine Nitrite NEGATIVE NEGATIVE Urine Bilirubin NEGATIVE NEGATIVE Urine Urobilinogen NORMAL NORMAL MG/DL Urine Leukocyte Esterase NEGATIVE NEGATIVE Urine RBC (Auto) NEGATIVE NEGATIVE Urine RBC NONE /HPF Urine WBC NONE /HPF Urine Squamous Epithelial Cells 0-2 /HPF Urine Crystals NONE /LPF Urine Bacteria NEGATIVE /HPF Urine Casts NONE /LPF Urine Mucus NEGATIVE /LPF Urine Culture Indicated NO My Orders Orders - KWAME QUEEN MD Cbc With Automated Diff (07/08/18 09:56) Magnesium (07/08/18 09:56) Chest 1 View, Ap/Pa Only (07/08/18 09:56) Ekg Tracing (07/08/18 09:56) Cardiac Profile 1 (07/08/18 09:56) Comprehensive Metabolic Panel (07/08/18 09:56) Myoglobin Serum (07/08/18 09:56) Protime With Inr (07/08/18 09:56) Partial Thromboplastin Time (07/08/18 09:56) O2 (07/08/18 09:56) Monitor-Rhythm Ecg Trace Only (07/08/18 09:56) Lipid Panel (07/09/18 06:00) Aspirin Chewable Tablet (Baby Aspirin Ch (07/08/18 10:00) Saline Lock/Iv-Start (07/08/18 09:56) BNP (07/08/18 09:56) Ua Culture If Indicated (07/08/18 11:18) Furosemide Injection (Lasix Injection) (07/08/18 12:00) Medications Given in ED Current Medications Medications Dose Ordered Sig/Allie Route Start Time Stop Time Status Last Admin Dose Admin Aspirin 324 mg ONCE ONCE PO 07/08/18 10:00 07/08/18 10:01 DC 07/08/18 10:33 324 MG Furosemide 80 mg ONCE ONCE IVP 07/08/18 12:00 07/08/18 12:01 DC 07/08/18 12:10 80 MG Vital Signs/I&O 07/08/18 09:54 Temp 97.9 Pulse 70 Resp 18 B/P (MAP) 138/86 (103) Pulse Ox 97 Blood Pressure Mean: 103 Progress Progress Note : Progress Note Seen and evaluated. IV, labs, EKG and chest x-ray ordered. Patient is on Coumadin. She has no chest pain so no ASA. Monitor patient. 1200: Dr. Hewitt has seen the patient with me in the emergency department. We will initiate Lasix 80 mg IV now. Patient will double her Lasix at home. No indication for admission at this point so patient will be discharged if she tolerates okay. Monitor patient. 1319: Overall doing better. She has urinated. At this point no further treatment in the emergency department hospital indicated. Discharged home with return precautions. Patient verbalize understanding instructions and agreement with plan. Initial ECG Impression Date: Jul 08, 2018 Initial ECG Impression Time: 10:01 Initial ECG Rate: 77 Comment AV dual paced rhythm. No evidence of ST elevation LA. Similar but slower than previous of 06/30/18. Interpreted by me. Diagnostic Imaging Diagonstic Imaging: Xray Plain Films/CT/US/NM/MRI: chest Comments [facility] [place], [place] NAME: [facility] REC#: [id number] PT STATUS: REG ER : 1950 PHYSICIAN: KWAME QUEEN MD ADMIT DATE: 07/08/18/ER Draft Date of Exam:07/08/18 CHEST 1 VIEW, AP/PA ONLY Portable erect AP chest at 1024 hours. INDICATION: Shortness of breath. FINDINGS: The cardiomegaly and the left-sided defibrillator device seen on the prior exam of 07/03/2018 are again evident and no different. The lungs are clear. There is no sign of failure, pneumonia or pleural effusion to indicate an acute abnormality. The mediastinum is not widened. The osseous structures are intact. IMPRESSION: Stable chest. There has been no adverse change since the prior exam. Dictated on workstation # [id number] Dict: 07/08/18 1033 Trans: 07/08/18 1041 [id number] Interpreted by: JAIME PRAKASH MD Electronically signed by: Departure Impression Primary Impression: CHF (congestive heart failure) Qualified Codes: I50.9 - Heart failure, unspecified Disposition: 01 HOME, SELF-CARE Condition: Stable Departure-Patient Inst. Decision time for Depature: 13:21 Referrals: FARHAT SERNA DO (PCP/Family) Primary Care Physician Patient Instructions: CHF Add. Discharge Instructions: All discharge instructions reviewed with patient and/or family. Voiced understanding. Follow-up with Dr. Hewitt this week or next week as indicated. You may take your Lasix twice daily if you're having problems with shortness of breath. Otherwise continue other medicines as previously prescribed. Return for chest pain, breathing problems, weakness or other concerns as needed. Copy Copies To 1: ELISE HEWITT MD, TIMOTHY D MD Jul 08, 2018 11:11
[2018-07-08 11:41] LABS: BILIRUBIN,URINE NEGATIVE (NEGATIVE); CLARITY,URINE CLEAR; COLOR,URINE YELLOW; GLUCOSE, URINE (UA) NEGATIVE (NEGATIVE); KETONES,URINE NEGATIVE (NEGATIVE); LEUKOCYTE ESTERASE ,URINE NEGATIVE (NEGATIVE); NITRITE,URINE NEGATIVE (NEGATIVE); PH,URINE 5 (5-9); PROTEIN,URINE 1+ (NEGATIVE); UROBILINOGEN,URINE NORMAL (NORMAL)
[2018-07-08 11:52] LABS: BACTERIA,URINE NEGATIVE /HPF; SQUAMOUS EPITHELIAL CELL,UR 0-2 /HPF
[2018-07-08] MEDS ORDERED: FUROSEMIDE 40 MG/4 ML INJ (LASIX) IVP ONE (12:00)
--- NOTE | 2018-07-08 14:06 | NUR ---
pt wheeled to at this time
[2018-07-08 14:20] VITALS: BP 137/85
== END 2018-07-08 14:20 | disposition home or self-care (01) ==
LOC: EDUNIT# 09:32 → ER 09:33
DX: I11.0 Hypertensive heart disease with heart failure (principal); I50.9 Heart failure, unspecified; I48.91 Unspecified atrial fibrillation; G47.30 Sleep apnea, unspecified; I42.9 Cardiomyopathy, unspecified; I25.2 Old myocardial infarction; K21.9 Gastro-esophageal reflux disease without esophagitis; F41.9 Anxiety disorder, unspecified; F32.9 Major depressive disorder, single episode, unspecified; Z87.19 Personal history of other diseases of the digestive system; Z87.440 Personal history of urinary (tract) infections; Z77.22 Contact with and (suspected) exposure to environmental tobacco smoke (acute) (chronic); Z79.01 Long term (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; Z82.49 Family history of ischemic heart disease and other diseases of the circulatory system; Z90.710 Acquired absence of both cervix and uterus; Z95.810 Presence of automatic (implantable) cardiac defibrillator; Z88.8 Allergy status to other drugs, medicaments and biological substances; Z88.2 Allergy status to sulfonamides
CPT/HCPCS: 36415; 71045; 80053; 81000; 83735; 83874; 83880; 84484; 85025; 85610; 85730; 93041

== ENCOUNTER → 2018-12-25 | Outpatient (CLI) | payer MEDICARE, OTHER ==
[~2018-12-25] MED LIST changes: +METR-145 PO; -METR-197 PO
--- NOTE | 2018-12-25 13:08 | Diagnostic Imaging Report ---
PROCEDURE: CT urinary tract, rule out kidney stone. TECHNIQUE: Multiple contiguous axial images were obtained through the abdomen and pelvis without the use of intravenous contrast. Auto Exposure Controls were utilized during the CT exam to meet ALARA standards for radiation dose reduction. INDICATION: Right flank pain. COMPARISON: Correlation is made with prior CT from 04/17/2018. FINDINGS: The lung bases are clear. No discrete liver mass is identified. The gallbladder is surgically absent. No biliary ductal dilatation is seen. The pancreas and spleen are unremarkable. No adrenal mass is detected. No renal or ureteral calculi are seen. There is no hydronephrosis. Aorta is nonaneurysmal. Small and large bowel loops appear to be normal in caliber. There is moderate stool in the colon. No inflammatory changes are present. There is diverticulosis of the sigmoid but no evidence of acute diverticulitis. The bladder is decompressed. There is no free fluid. IMPRESSION: 1. No evidence of urinary tract calculi or obstruction. 2. No acute feature in the abdomen or pelvis is seen. There is uncomplicated diverticulosis. Dictated by: Dictated on workstation # [id number]
== END ==
LOC: RAD 12:49
PROVIDERS: ATTEND Nurse Practitioner Family
DX: K57.30 Diverticulosis of large intestine without perforation or abscess without bleeding (principal); Z90.49 Acquired absence of other specified parts of digestive tract
CPT/HCPCS: 74176

== ENCOUNTER 2018-12-27 04:18 | Emergency (ER) | payer MEDICARE, OTHER ==
[~2018-12-27] VITALS: Ht 149.9 cm; Wt 59.0 kg
[2018-12-27] MEDS ORDERED: fentaNYL INJECTION 100 MCG/2 ML AMP IM ONE (04:45)
[2018-12-27] MEDS ORDERED: LIDOCAINE/EPI 2% 1:100,00 (XYLOCAINE) 20 ML VIAL INJ ONE (04:45)
[2018-12-27] MEDS ORDERED: methylPREDNISolone 40 MG/ML (DEPO MEDROL) VIAL IA ONE (04:45)
[2018-12-27] MEDS ORDERED: BUPIVACAINE 0.5% 30 ML (SENSORCAINE) VIAL INJ ONE (04:45)
--- NOTE | 2018-12-27 04:45 | ED Back Pain ---
General Chief Complaint: Back Problems Stated Complaint: BACK PAIN Source of Information: Patient Exam Limitations: No Limitations History of Present Illness Date Seen by Provider: Dec 27, 2018 Time Seen by Provider: 04:28 Initial Comments Patient presents to ER by private conveyance with her and chief complaint she's had some back pain past 2 weeks. She followed up with her primary care doctor Dr. Daily and was given a prescription for cyclobenzaprine which she's been using with no avail, Tylenol which has not helped much and she was given a prescription for some narcotic pain medicine but the pharmacy gave her the choice between the Flexeril and the narcotic because she uses temazepam at baseline for sleep. She says she's not used the temazepam for last several days. She did go to physical therapy after follow-up with her primary care doctor and after the first visit she said she felt worsening could barely walk out of the office. She followed up with the physician's assistants or Dr. De La Cruz and received a steroid shot in her right hip for bursitis and some prednisone which she completed a few days ago. She said it helped her right hip bursitis tremendously but her back pain in her lower right back radiating down towards her leg and groin are now worse today. She was told by the orthopedics office that they thought it was sciatica pain. She had a clean urinalysis and a CT of the abdomen pelvis looking for kidney stones that was negative by her primary care doctor. Her next plan was to follow-up with her primary care doctor and get an MRI of her back. She has no history of surgery or imaging of her back outside of the CT of her abdomen and pelvis yesterday. No recent history of trauma. She says she feels like her right leg tingles and goes numb sometimes. The pain radiates down to her thigh. Allergies and Home Medications Allergies Coded Allergies: rosuvastatin (Unverified Allergy, Mild, 03/06/18) sacubitril (Verified Allergy, Mild, RASH, 07/01/18) PATIENT HAS ITCHING FROM MEDICATION valsartan (Verified Allergy, Mild, RASH, 07/01/18) PATIENT HAS ITCHING FROM MEDICATION Sulfa (Sulfonamide Antibiotics) (Verified Allergy, Unknown, 03/06/18) Home Medications Acetaminophen 500 Mg Tablet, 500-1,000 MG PO Q6H PRN for PAIN-MILD, (Reported) Alprazolam 0.5 Mg Tablet, 0.25-0.5 MG PO TID PRN for ANXIETY, (Reported) TAKES 1/2 TO 1 (0.5 MG) TABLET Atorvastatin Calcium 40 Mg Tablet, 20 MG PO HS, (Reported) Cranberry Extract/Vit C 1 Each Capsule, 1 CAP PO DAILY, (Reported) Escitalopram Oxalate 20 Mg Tablet, 10 MG PO DAILY, (Reported) TAKES 1/2 (20MG) TABLET Furosemide 80 Mg Tablet, 80 MG PO DAILY, (Reported) Hydrocodone Bit/Acetaminophen 1 Tab Tab, 1 EACH PO Q4-6HR PRN for PAIN-MODERATE Prescribed by: ZURI OCHOA on 12/27/18 0506 Pantoprazole Sodium 40 Mg Tablet.dr, 40 MG PO BID, (Reported) Potassium Chloride 10 Meq Capsule.er, 20 MEQ PO DAILY, (Reported) TAKES 2 (10MEQ) CAPSULES Temazepam 15 Mg Capsule, 15 MG PO HS PRN for SLEEP, (Reported) Warfarin Sodium 5 Mg Tablet, 5 MG PO SuTuThSa, (Reported) Warfarin Sodium 5 Mg Tablet, 2.5 MG PO MoWeFr, (Reported) [Sotalol Hcl] 80 MG TAB, 80 MG PO BID Prescribed by: ELISE RIDER on 07/04/18 0724 Patient Home Medication List Home Medication List Reviewed: Yes Review of Systems Constitutional: No chills, No diaphoresis EENTM: No ear pain, No blurred vision Respiratory: No cough, No short of breath Cardiovascular: No chest pain, No edema Gastrointestinal: No abdominal pain, No nausea Genitourinary: No discharge, No dysuria Musculoskeletal: see HPI, back pain Skin: No change in color, No pruritus, No rash Past Kbquwko-Bohubf-Xqwguo Hx Patient Social History Alcohol Use: Occasionally Uses Alcohol Beverage of Choice: Wine, Other Recreational Drug Use: No Smoking Status: Never a Smoker 2nd Hand Smoke Exposure: Yes Recent Foreign Travel: No Contact w/Someone Who Travel: No Recent Hopitalizations: Yes (JANUARY 2018-GALLBLADDER X 1 WEEK) Immunizations Up To Date Tetanus Booster (TDap): Less than 5yrs PED Vaccines UTD: No Date of Pneumonia Vaccine: Apr 26, 2018 Date of Influenza Vaccine: Apr 26, 2018 Seasonal Allergies Seasonal Allergies: No Past Medical History Surgeries: Yes (HYST,BREAST REDUCTION,OOPH.,RECTOCELE) Bladder Surgery, Defibrillator, Gallbladder, Pacemaker Respiratory: No Sleep Apnea Currently Using CPAP: Yes (at night) Currently Using BIPAP: No Cardiac: Yes (heart failure) Atrial Fibrillation, Cardiomyopathy, Hypertension, Irregular Heartbeat Neurological: No Reproductive Disorders: No (X1 MISCARRIAGE) 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 Sexually Transmitted Disease: No HIV/AIDS: No Genitourinary: Yes UTI-Chronic Gastrointestinal: No (HX C-DIFF) Gastroesophageal Reflux, Diverticulosis Musculoskeletal: Yes (GENERALIZED WEAKNESS-SINCE SEPSIS JANUARY 2018) Endocrine: No HEENT: Yes (left eye problem with vision) Loss of Vision: Bilateral Hearing Impairment: Denies, Hard of Hearing Cancer: No Psychosocial: Yes Anxiety, Depression Integumentary: No Blood Disorders: No Adverse Reaction/Blood Tranf: No (HAS HAD BLOOD WITH NO REACTIION) Family Medical History Heart Disease, CAD Under 55 Years Old Physical Exam Vital Signs Vital Signs - First Documented 12/27/18 04:25 Temp 97.0 Pulse 73 Resp 22 B/P (MAP) 140/60 (86) Pulse Ox 100 O2 Delivery Room Air Capillary Refill : Height, Weight, BMI Height: 4'9.00" Weight: 137lbs. 14.4oz. 62.183977hk; 26.2 BMI Method:Stated General Appearance: WD/WN, Anxious, Moderate Distress HEENT: Pharynx Normal, Moist Mucous Membranes Neck: Full Range of Motion, Normal Inspection Cardiovascular: No Edema, Normal Peripheral Pulses Respiratory: No Accessory Muscle Use, No Respiratory Distress Back: Normal Inspection, No CVA Tenderness, Vertebral Tenderness (lumbar and right sided Lumbar paraspinous muscles tender to palpation. Palpation over the r ight L5-S1 facet joint re-creates sciatic symptoms down her right buttock.), Other (right sided straight leg test positive for sciatic symptoms at about 30) Extremity: Normal Capillary Refill, Normal Inspection, Non Tender, No Calf T enderness, No Pedal Edema, Other (limited range of motion secondary to pain in the back) Neurologic/Psychiatric: Alert, Oriented x3, No Motor/Sensory Deficits Skin: Normal Color, Warm/Dry Procedures/Interventions Date of ETT Placement: Jan 07, 2018 Progress Patient was placed in the left lateral recumbent position with her knees flexed at a 90 angle. The skin was cleaned thoroughly with chlorhexidine preps and then alcohol. Using sterile gloves we ascertain the site overlying her L5-S1 facet joint and using a 25-gauge 1-1/2 inch needle we access the area and placed 40 mg of Depo-Medrol and 3 cc of half percent Marcaine and 3 cc of 2% lidocaine with epinephrine. Immediately afterwards we clean the site with alcohol use Z track method for injection and placed a Band-Aid. We then set the patient up on the side of the bed and she began to move her legs and felt like her pain was cut in half. She tolerated procedure well. Progress/Results/Core Measures Results/Orders My Orders Orders - ZURI OCHOA Fentanyl Injection (Sublimaze Injection (12/27/18 04:45) Bupivacaine 0.5% Injection (Sensorcaine (12/27/18 04:45) Lidocaine/Epi 2% 1:100,000 (Xylocaine/Ep (12/27/18 04:45) Methylprednisolone Acetate Inj (Depo-Med (12/27/18 04:45) Medications Given in ED Current Medications Medications Dose Ordered Sig/Allie Route Start Time Stop Time Status Last Admin Dose Admin Bupivacaine HCl 30 ml ONCE ONCE INJ 12/27/18 04:45 12/27/18 04:46 DC 12/27/18 04:47 30 ML Fentanyl Citrate 75 mcg ONCE ONCE IM 12/27/18 04:45 12/27/18 04:46 DC 12/27/18 04:47 75 MCG Lidocaine/ Epinephrine 20 ml ONCE ONCE INJ 12/27/18 04:45 12/27/18 04:46 DC 12/27/18 04:48 20 ML Methylprednisolone Acetate 40 mg ONCE ONCE IA 12/27/18 04:45 12/27/18 04:46 DC 12/27/18 04:47 40 MG Vital Signs/I&O 12/27/18 12/27/18 04:25 05:00 Temp 97.0 97.0 Pulse 73 75 Resp 22 17 B/P (MAP) 140/60 (86) 140/60 (86) Pulse Ox 100 99 O2 Delivery Room Air Room Air Progress Progress Note : Time: 04:45 Progress Note Although she recently finished a short course of steroids we would plan to inject 40 mg Depo-Medrol the L5-S1 facet joint try and give her some relief of her sciatic pain. We'll also give her a mixture of Xylocaine and lidocaine. 75 g fentanyl IM for immediate relief and then we would send her home some hydrocodone's with plans to follow-up with primary care and set up for appropriate imaging and workup. 0500: After the back injection and the fentanyl IM injection the patient's having significant relief of pain. We are going to allow her 5-10 minutes for the medicines to kick in and trying get her up to walk. If she can do that we'll send her home with hydrocodone. Departure Impression Primary Impression: Lumbago with sciatica, right side Qualified Codes: M54.41 - Lumbago with sciatica, right side Disposition: HOME, SELF-CARE Condition: Improved Departure-Patient Inst. Decision time for Depature: 05:13 Referrals: FARHAT DAILY DO (PCP/Family) Primary Care Physician Patient Instructions: Back Exercises, Do I Need an X-ray (or Other Test) for Low Back Pain?, Low Back Pain (DC) Add. Discharge Instructions: Obtain a back brace [id number] and wear it on the days that you need it. Continue use the patches and topical creams. Utilized the back exercises discussed in the handout. Use the Tylenol in addition to the hydrocodone one tablet every 4-6 hours as needed for maintaining function breakthrough pain on the back. Return to the ER if you have loss of control of your bowel or bladder or total numbness of your leg. Follow-up with your primary care doctor today and pursue the next step in management of your back pain. All discharge instructions reviewed with patient and/or family. Voiced understanding. Scripts Hydrocodone Bit/Acetaminophen (Hydrocodone/Acetaminophen 5/325mg Tablet) 1 Tab Tab 1 EACH PO Q4-6HR PRN for PAIN-MODERATE MDD 10, #20 TAB 0 Refills Prov: ZURI OCHOA 12/27/18 ZURI OCHOA Dec 27, 2018 04:45
[2018-12-27 05:00] VITALS: BP 140/60
[2018-12-27] MEDS ORDERED: ACHD5005 PO (05:06)
== END 2018-12-27 05:00 | disposition home or self-care (01) ==
LOC: EDUNIT# 04:18 → ER 04:20
DX: M54.41 Lumbago with sciatica, right side (principal); G47.30 Sleep apnea, unspecified; I48.91 Unspecified atrial fibrillation; I25.2 Old myocardial infarction; I10 Essential (primary) hypertension; K21.9 Gastro-esophageal reflux disease without esophagitis; F41.9 Anxiety disorder, unspecified; F32.9 Major depressive disorder, single episode, unspecified; Z87.19 Personal history of other diseases of the digestive system; Z87.440 Personal history of urinary (tract) infections; Z87.59 Personal history of other complications of pregnancy, childbirth and the puerperium; Z82.49 Family history of ischemic heart disease and other diseases of the circulatory system; Z88.8 Allergy status to other drugs, medicaments and biological substances; Z88.2 Allergy status to sulfonamides; Z79.01 Long term (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; Z77.22 Contact with and (suspected) exposure to environmental tobacco smoke (acute) (chronic); Z98.890 Other specified postprocedural states; Z95.810 Presence of automatic (implantable) cardiac defibrillator; Z90.710 Acquired absence of both cervix and uterus
CPT/HCPCS: 99284

== ENCOUNTER → 2018-12-27 | Outpatient (CLI) | payer MEDICARE, OTHER ==
--- NOTE | 2018-12-27 13:09 | Diagnostic Imaging Report ---
PROCEDURE: CT thoracic and lumbar spine without contrast. TECHNIQUE: Multiple contiguous axial images were obtained through the thoracic and lumbar spine without the use of intravenous contrast. Sagittal and coronal reformations were then performed. INDICATION: Back injury with mid and low back pain. CT THORACIC SPINE: There is normal kyphotic curvature to the thoracic spine. Vertebral body heights are maintained. No acute compression fracture is seen. There is generalized thoracic spondylosis with variable disc space narrowing and marginal spurring. Paraspinous tissues are unremarkable. IMPRESSION: Thoracic spondylosis. No acute bony abnormality is detected. CT LUMBAR SPINE: Normal lumbar lordotic curvature is noted. Vertebral body heights are maintained. No acute compression fracture is seen. Mild generalized lumbar spondylosis is noted. The paraspinous tissues are unremarkable. IMPRESSION: No acute bony abnormality is detected. Dictated by: Dictated on workstation # [id number]
== END ==
LOC: RAD 12:31
PROVIDERS: ATTEND Nurse Practitioner Family
DX: S29.9XXA Unspecified injury of thorax, initial encounter (principal); M47.814 Spondylosis without myelopathy or radiculopathy, thoracic region; M47.816 Spondylosis without myelopathy or radiculopathy, lumbar region
CPT/HCPCS: 72128; 72131

== ENCOUNTER → 2019-03-17 | Outpatient (CLI) | payer MEDICARE, OTHER ==
[2019-03-17 10:14] LABS: CALCIUM 9.2 MG/DL (8.5-10.1); CREATININE SERUM 2.91 MG/DL (0.60-1.30)
[2019-03-17 10:38] LABS: FREE T4 (FREE THYROXINE) 1.29 NG/DL (0.70-1.48)
== END ==
LOC: LAB 09:00
PROVIDERS: ATTEND Internal Medicine Cardiovascular Disease
DX: I42.0 Dilated cardiomyopathy (principal)
CPT/HCPCS: 36415; 80048; 84439; 84443

== ENCOUNTER → 2019-03-17 | Outpatient (CLI) | payer MEDICARE, OTHER ==
--- NOTE | 2019-03-17 10:13 | Diagnostic Imaging Report ---
PROCEDURE: US Hepatic (Liver). TECHNIQUE: Multiple real-time grayscale images were obtained over the right upper quadrant in various projections. INDICATION: Cirrhosis. FINDINGS: Liver measures 15 cm in size. No discrete liver mass is identified. The portal vein is patent and shows normal direction of flow. Gallbladder is surgically absent. No biliary ductal dilatation is seen. Visualized pancreas is unremarkable. Right kidney is without calculi or hydronephrosis. There is no ascites. IMPRESSION: 1. No evidence of discrete liver mass. 2. Status post cholecystectomy. 3. No ascites. Dictated by: Dictated on workstation # [id number]
== END ==
LOC: RAD 08:54
PROVIDERS: ATTEND Family Medicine
DX: K74.60 Unspecified cirrhosis of liver (principal); E03.9 Hypothyroidism, unspecified; Z90.49 Acquired absence of other specified parts of digestive tract
CPT/HCPCS: 76705

== ENCOUNTER → 2019-03-17 | Outpatient (CLI) | payer MEDICARE, OTHER | LOC: LAB 08:57 | PROVIDERS: ATTEND Internal Medicine | DX: K74.60 Unspecified cirrhosis of liver (principal) ==

== ENCOUNTER → 2019-03-27 | Outpatient (CLI) | payer MEDICARE, OTHER ==
--- NOTE | 2019-03-27 15:39 | Diagnostic Imaging Report ---
INDICATION: Left lower quadrant abdominal pain. TIME OF EXAM: 03:14 p.m. FINDINGS: There are surgical clips in the right upper quadrant. The bowel gas pattern is nonobstructive. No pathologic calcifications are seen. No free air is identified. Cardiac defibrillator overlies the upper chest. IMPRESSION: No acute feature in the abdomen is identified. Dictated by: Dictated on workstation # [id number]
== END ==
LOC: RAD 15:00
PROVIDERS: ATTEND Nurse Practitioner Family
DX: K59.00 Constipation, unspecified (principal); R10.32 Left lower quadrant pain
CPT/HCPCS: 74019

== ENCOUNTER 2019-04-14 19:16 | Inpatient (IN) | payer MEDICARE, OTHER ==
[~2019-04-14] VITALS: Ht 149.9 cm; Wt 66.5 kg
[2019-04-14] MEDS ORDERED: KETOROLAC 30 MG/ML VIAL IVP STA (19:34)
[2019-04-14] MEDS ORDERED: LACTATED RINGERS 1,000 ML IV ONE (19:34)
--- NOTE | 2019-04-14 19:44 | ED Abdominal Pain ---
General Stated Complaint: ABD PAIN Source of Information: Patient History of Present Illness Date Seen by Provider: Apr 14, 2019 Time Seen by Provider: 19:30 Initial Comments PT ARRIVES VIA POV FROM HOME STATES SHE BELIEVES SHE IS HAVING A FLARE OF DIVERTICULITIS STATES SHE STARTED HAVING LLQ PAIN AROUND MID . SAW PATTERN REPAIR PERSON AT DR. SERNA'S OFFICE 03/27/19, AND PAIN HAD BEEN GOING ON FOR A FEW DAYS PRIOR TO THAT. WAS STARTED ON ANTIBIOTICS AND TOOK FOR 7 DAYS--CIPRO + FLAGYL. STATES SHE TOOK AN ADDITIONAL 2 DAYS OF OLD/LEFT OVER ANTIBIOTICS FROM PREVIOUS EPISODE, AND SYMPTOMS WERE BETTER. PT STATES TODAY, "IT'S BACK WITH A VENGEANCE" PT CALLED DR. SERNA'S OFFICE TODAY, BUT PT HAS BEEN IN [place] ALL DAY WITH FOR HIS DR. VISIT LAST FOOD INTAKE WAS AROUND 1300 TODAY--DID NOT HAVE AN APPETITE, ONLY ATE ABOUT HALF OF HER MEAL NO FEVER NO NAUSEA/VOMITING. STOOLS HAVE BEEN "VERY SOFT"/DIARRHEA. STATES CIPRO AND FLAGYL GAVE HER DIARRHEA. NO BLACK/BLOODY/TARRY STOOLS ABDOMEN HAS BEEN DISTENDED TODAY NO URINARY SYMPTOMS LAST COLONOSCOPY WAS 01/[address] DHILLON. HAS NEVER HAD TO HAVE SURGERY FOR DIVERTICULITIS PT HAS ALSO HAD C. DIFFICILE IN THE PAST PCP: DR. SERNA Allergies and Home Medications Allergies Coded Allergies: rosuvastatin (Unverified Allergy, Mild, 03/06/18) sacubitril (Verified Allergy, Mild, RASH, 07/01/18) PATIENT HAS ITCHING FROM MEDICATION valsartan (Verified Allergy, Mild, RASH, 07/01/18) PATIENT HAS ITCHING FROM MEDICATION Sulfa (Sulfonamide Antibiotics) (Verified Allergy, Unknown, 03/06/18) fentanyl (Verified Adverse Reaction, Unknown, Vomiting, 04/14/19) Home Medications Acetaminophen 500 Mg Tablet, 500-1,000 MG PO Q6H PRN for PAIN-MILD, (Reported) Alprazolam 0.5 Mg Tablet, 0.25-0.5 MG PO TID PRN for ANXIETY, (Reported) TAKES 1/2 TO 1 (0.5 MG) TABLET Atorvastatin Calcium 40 Mg Tablet, 20 MG PO HS, (Reported) Cranberry Extract/Vit C 1 Each Capsule, 1 CAP PO DAILY, (Reported) Escitalopram Oxalate 20 Mg Tablet, 10 MG PO DAILY, (Reported) TAKES 1/2 (20MG) TABLET Furosemide 80 Mg Tablet, 80 MG PO DAILY, (Reported) Hydrocodone Bit/Acetaminophen 1 Tab Tab, 1 EACH PO Q4-6HR PRN for PAIN-MODERATE Prescribed by: ZURI OCHOA on 12/27/18 0506 Pantoprazole Sodium 40 Mg Tablet.dr, 40 MG PO BID, (Reported) Potassium Chloride 10 Meq Capsule.er, 20 MEQ PO DAILY, (Reported) TAKES 2 (10MEQ) CAPSULES Temazepam 15 Mg Capsule, 15 MG PO HS PRN for SLEEP, (Reported) Warfarin Sodium 5 Mg Tablet, 5 MG PO SuTuThSa, (Reported) Warfarin Sodium 5 Mg Tablet, 2.5 MG PO MoWeFr, (Reported) [Sotalol Hcl] 80 MG TAB, 80 MG PO BID Prescribed by: ELISE RIDER on 07/04/18 0724 Patient Home Medication List Home Medication List Reviewed: Yes Review of Systems Review of Systems Constitutional: no symptoms reported; No chills, No diaphoresis, No dizziness, No fever Respiratory: No Symptoms Reported Cardiovascular: No Symptoms Reported Gastrointestinal: See HPI, Abdominal Pain, Diarrhea; Denies Nausea, Denies Vomiting Genitourinary: No Symptoms Reported Musculoskeletal: back pain (ONGOING LOW BACK PAIN, MORE ON RIGHT SIDE WITH SCIATICA) Skin: no symptoms reported Psychiatric/Neurological: No Symptoms Reported Endocrine: No Symptoms Reported Hematologic/Lymphatic: No Symptoms Reported Past Qvblinm-Sgngma-Nocnlj Hx Past Med/Social Hx: Reviewed and Corrections made Patient Social History Alcohol Use: Occasionally Uses Alcohol Beverage of Choice: Wine, Other Recreational Drug Use: No Smoking Status: Never a Smoker 2nd Hand Smoke Exposure: Yes Recent Foreign Travel: No Contact w/Someone Who Travel: No Recent Hopitalizations: Yes (JANUARY 2018-GALLBLADDER X 1 WEEK) Immunizations Up To Date Tetanus Booster (TDap): Less than 5yrs PED Vaccines UTD: No Date of Pneumonia Vaccine: Apr 26, 2018 Date of Influenza Vaccine: Apr 26, 2018 Seasonal Allergies Seasonal Allergies: No Past Medical History Surgeries: Yes (HYST/BSO; BREAST REDUCTION; RECTOCELE REPAIR; COLONOSCOPIES--LAST ONE 01/2017; MULTIPLE CARDIAC PROCEDURES--MULTIPLE ABLATIONS FOR ATRIAL FIB, CARDIOVERSION 06/07/18; PACEMAKER/ REPLACE WITH BI-VENTRICULAR PACEMAKER 04/2018; DEFIBRILLATOR; REVEAL DEVICE IMPLANTED 01/2016; RESECTION OF BLADDER TUMORS 04/2018; CARDIAC CATHS--LAST ONE 09/12/17--MILD DISEASE, NO INTERVENTION; ) Bladder Surgery, Breast, Cardiac, Defibrillator, Gallbladder, Hysterectomy, Oophorectomy, Pacemaker Respiratory: Yes Sleep Apnea Currently Using CPAP: Yes (at night) Currently Using BIPAP: No Cardiac: Yes (CHF; MITRAL AND TRICUSPID REGURGITATION; PULMONARY HTN; SICK SINUS SYNDROME--S/P PACEMAKER, REPLACED 04/2018 WITH BI-VENTRICULAR PACEMAKER; NON-SUSTAINED V-TACH--S/P DEFIBRILLATOR PLACEMENT; PAROXYSMAL ATRIAL FIB--S/P MULTIPLE ABLATIONS, REVEAL DEVICE IMPLANTED 01/2016, CARDIOVERSION 06/07/18; CARDIAC CATHS--LAST CATH 09/12/17--MILD NON-OCCLUSIVE DISESASE, NO INTERVENTION) Atrial Fibrillation, Cardiomyopathy, Coronary Artery Disease, Hypertension, Irregular Heartbeat, Valvular Heart Disease Neurological: No Reproductive Disorders: No (X1 MISCARRIAGE) 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 ZARATE) UTI-Chronic Gastrointestinal: Yes Gastroesophageal Reflux, Liver Disease/Jaundice, Diverticulosis, Polyps, C-Diff Musculoskeletal: Yes Chronic Back Pain Endocrine: No HEENT: Yes (left eye problem with vision) Loss of Vision: Bilateral Hearing Impairment: Denies Cancer: No Psychosocial: Yes Anxiety, Depression Integumentary: No Blood Disorders: No Adverse Reaction/Blood Tranf: No (HAS HAD BLOOD WITH NO REACTIION) Family Medical History Heart Disease, CAD Under 55 Years Old Physical Exam Vital Signs Vital Signs - First Documented 04/14/19 19:20 Temp 36.8 Pulse 73 Resp 13 B/P (MAP) 134/65 (88) Pulse Ox 97 O2 Delivery Room Air Capillary Refill : Height/Weight/BMI Height: 4'11.00" Weight: 130lbs. 14.4oz. 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, no motor/sensory deficits, alert, normal mood/affect, oriented x 3 Skin: normal color, warm/dry; No rash Focused Exam Lactate Level 04/14/19 19:42: Lactic Acid Level 0.89 Lactic Acid Level Laboratory Tests Test 04/14/19 19:42 Lactic Acid Level 0.89 MMOL/L (0.50-2.00) Procedures/Interventions Date of ETT Placement: Jan 07, 2018 Progress/Results/Core Measures Results/Orders Lab Results Laboratory Tests Test 04/14/19 19:30 04/14/19 19:42 Range/Units Urine Color YELLOW Urine Clarity CLEAR Urine pH 5 5-9 Urine Specific Avenel 1.020 1.016-1.022 Urine Protein 1+ H NEGATIVE Urine Glucose (UA) NEGATIVE NEGATIVE Urine Ketones NEGATIVE NEGATIVE Urine Nitrite NEGATIVE NEGATIVE Urine Bilirubin NEGATIVE NEGATIVE Urine Urobilinogen NORMAL NORMAL MG/DL Urine Leukocyte Esterase NEGATIVE NEGATIVE Urine RBC (Auto) NEGATIVE NEGATIVE Urine RBC NONE /HPF Urine WBC NONE /HPF Urine Squamous Epithelial Cells 2-5 /HPF Urine Crystals NONE /LPF Urine Bacteria TRACE /HPF Urine Casts PRESENT /LPF Urine Hyaline Casts RARE /LPF Urine Mucus NEGATIVE /LPF Urine Culture Indicated NO White Blood Count 12.3 H 4.3-11.0 10^3/uL Red Blood Count 3.76 L 4.35-5.85 10^6/uL Hemoglobin 11.4 L 11.5-16.0 G/DL Hematocrit 35 35-52 % Mean Corpuscular Volume 92 80-99 FL Mean Corpuscular Hemoglobin 30 25-34 PG Mean Corpuscular Hemoglobin Concent 33 32-36 G/DL Red Cell Distribution Width 13.4 10.0-14.5 % Platelet Count 339 130-400 10^3/uL Mean Platelet Volume 9.5 7.4-10.4 FL Neutrophils (%) (Auto) 73 42-75 % Lymphocytes (%) (Auto) 20 12-44 % Monocytes (%) (Auto) 6 0-12 % Eosinophils (%) (Auto) 1 0-10 % Basophils (%) (Auto) 0 0-10 % Neutrophils # (Auto) 9.0 H 1.8-7.8 X 10^3 Lymphocytes # (Auto) 2.4 1.0-4.0 X 10^3 Monocytes # (Auto) 0.7 0.0-1.0 X 10^3 Eosinophils # (Auto) 0.1 0.0-0.3 10^3/uL Basophils # (Auto) 0.0 0.0-0.1 10^3/uL Sodium Level 139 135-145 MMOL/L Potassium Level 3.8 3.6-5.0 MMOL/L Chloride Level 103 98-107 MMOL/L Carbon Dioxide Level 22 21-32 MMOL/L Anion Gap 14 5-14 MMOL/L Blood Urea Nitrogen 28 H 7-18 MG/DL Creatinine 1.40 H 0.60-1.30 MG/DL Estimat Glomerular Filtration Rate 38 BUN/Creatinine Ratio 20 Glucose Level 97 70-105 MG/DL Lactic Acid Level 0.89 0.50-2.00 MMOL/L Calcium Level 9.3 8.5-10.1 MG/DL Corrected Calcium 8.9 8.5-10.1 MG/DL Magnesium Level 2.0 1.6-2.4 MG/DL Total Bilirubin 0.5 0.1-1.0 MG/DL Aspartate Amino Transf (AST/SGOT) 27 5-34 U/L Alanine Aminotransferase (ALT/SGPT) 37 0-55 U/L Alkaline Phosphatase 112 40-136 U/L Total Protein 8.2 6.4-8.2 GM/DL Albumin 4.5 3.2-4.5 GM/DL Amylase Level 45 25-125 U/L Lipase 32 8-78 U/L My Orders Orders - MASHA NORTON DO Ed Iv/Invasive Line Start (04/14/19 19:34) Acute Abd Series (04/14/19 19:34) Amylase (04/14/19 19:34) Cbc With Automated Diff (04/14/19 19:34) Comprehensive Metabolic Panel (04/14/19 19:34) Lactic Acid Analyzer (04/14/19 19:34) Lipase (04/14/19 19:34) Magnesium (04/14/19 19:34) Ua Culture If Indicated (04/14/19 19:34) Blood Culture (04/14/19 19:34) Ed Iv/Invasive Line Start (04/14/19 19:34) Lactated Ringers (Lr 1000 Ml Iv Solution (04/14/19 19:34) Ketorolac Injection (Toradol Injection) (04/14/19 19:34) Fentanyl Injection (Sublimaze Injection (04/14/19 20:15) Ct Abdomen/Pelvis Wo (04/14/19 20:12) Ondansetron Injection (Zofran Injectio (04/14/19 20:45) Ondansetron Injection (Zofran Injectio (04/14/19 20:40) Piperacillin Sodium/Tazobactam (Zosyn Vi (04/14/19 21:00) Vancomycin Injection (Vancomycin Injecti (04/14/19 21:00) Ondansetron Injection (Zofran Injectio (04/14/19 21:00) Fentanyl Injection (Sublimaze Injection (04/14/19 21:00) Ondansetron Injection (Zofran Injectio (04/14/19 21:15) Diphenhydramine Injection (Benadryl Inje (04/14/19 21:15) Medications Given in ED Current Medications Medications Dose Ordered Sig/Allie Route Start Time Stop Time Status Last Admin Dose Admin Diphenhydramine HCl 25 mg ONCE ONCE IVP 04/14/19 21:15 04/14/19 21:16 DC 04/14/19 21:22 25 MG Fentanyl Citrate 50 mcg ONCE ONCE IVP 04/14/19 20:15 04/14/19 20:16 DC 04/14/19 20:20 50 MCG Fentanyl Citrate 50 mcg ONCE ONCE IVP 04/14/19 21:00 04/14/19 21:01 DC 04/14/19 21:09 50 MCG Lactated Ringer's 1,000 ml @ 0 mls/hr Q0M ONCE IV 04/14/19 19:34 04/14/19 19:37 DC 04/14/19 19:49 0 MLS/HR Ondansetron HCl 4 mg ONCE ONCE IVP 04/14/19 20:45 04/14/19 20:46 DC 04/14/19 20:44 4 MG Ondansetron HCl 4 mg ONCE ONCE IVP 04/14/19 21:00 04/14/19 21:01 DC 04/14/19 21:03 4 MG Ondansetron HCl 8 mg ONCE ONCE IVP 04/14/19 21:15 04/14/19 21:16 DC 04/14/19 21:22 8 MG Piperacillin Sod/ Tazobactam Sod 4.5 gm/Sodium Chloride 100 ml @ 200 mls/hr ONCE ONCE IV 04/14/19 21:00 04/14/19 21:29 04/14/19 21:14 200 MLS/HR Vital Signs/I&O 04/14/19 04/14/19 19:20 20:03 Temp 36.8 36.8 Pulse 73 69 Resp 13 20 B/P (MAP) 134/65 (88) 104/46 Pulse Ox 97 95 O2 Delivery Room Air Room Air Progress Progress Note : Progress Note ON RETURN FROM CT,PT NOW C/O NAUSEA--GIVEN ZOFRAN GIVEN TORADOL AND FENTANYL FOR PAIN. PT BEGAN VOMITING AFTER SECOND DOSE OF FENTANYL. ADDITIONAL ZOFRAN + BENADRYL GIVEN. WILL SWITCH TO MORPHINE FOR PAIN. PT STATES SHE HAS NOT HAD PROBLEMS WITH MORPHINE IN THE PAST. STARTED ON ZOSYN + VANCOMYCIN, WILL ALSO ADD FLAGYL Departure Communication (Admissions) 2046--ATTEMPTING TO CONTACT DR. SERNA. MESSAGE LEFT ON CELL PHONE [phone]--MESSAGE LEFT ON DR. SERNA'S CELL PHONE [phone]--SPOKE WITH DR. SERNA, ACCEPTS PT FOR ADMIT. Impression Primary Impression: Sigmoid diverticulitis Disposition: ADMITTED INPATIENT Condition: Stable Admissions Decision to Admit Reason: Admit from ER (General) Decision to Admit/Date: Apr 14, 2019 Time/Decision to Admit Time: 21:00 Departure-Patient Inst. Referrals: FARHAT SERNA DO (PCP/Family) Primary Care Physician MASHA NORTON DO Apr 14, 2019 19:44
[2019-04-14 19:49] LABS: BASOPHILS % (AUTO) 0 % (0-10); EOSINOPHILS # (AUTO) 0.1 10^3/uL (0.0-0.3); EOSINOPHILS % (AUTO) 1 % (0-10); HEMATOCRIT 35 % (35-52); HEMOGLOBIN 11.4 G/DL (11.5-16.0); LYMPHOCYTES # (AUTO) 2.4 X 10^3 (1.0-4.0); LYMPHOCYTES % (AUTO) 20 % (12-44); MEAN CORPUSCULAR HEMOGLOBIN 30 PG (25-34); MEAN CORPUSCULAR HGB CONC 33 G/DL (32-36); MEAN CORPUSCULAR VOLUME 92 FL (80-99); MEAN PLATELET VOLUME 9.5 FL (7.4-10.4); MONOCYTES # (AUTO) 0.7 X 10^3 (0.0-1.0); MONOCYTES % (AUTO) 6 % (0-12); NEUTROPHILS % (AUTO) 73 % (42-75); PLATELET COUNT 339 10^3/uL (130-400); RED CELL DISTRIBUTION WIDTH 13.4 % (10.0-14.5); WHITE BLOOD COUNT 12.3 10^3/uL (4.3-11.0)
[2019-04-14 19:56] LABS: BILIRUBIN,URINE NEGATIVE (NEGATIVE); CLARITY,URINE CLEAR; COLOR,URINE YELLOW; GLUCOSE, URINE (UA) NEGATIVE (NEGATIVE); KETONES,URINE NEGATIVE (NEGATIVE); LEUKOCYTE ESTERASE ,URINE NEGATIVE (NEGATIVE); NITRITE,URINE NEGATIVE (NEGATIVE); PH,URINE 5 (5-9); PROTEIN,URINE 1+ (NEGATIVE)
[2019-04-14 20:04] LABS: BACTERIA,URINE TRACE /HPF; HYALINE CASTS, URINE RARE /LPF
[2019-04-14 20:10] LABS: ALBUMIN 4.5 GM/DL (3.2-4.5); BILIRUBIN,TOTAL 0.5 MG/DL (0.1-1.0); CALCIUM 9.3 MG/DL (8.5-10.1); CREATININE SERUM 1.4 MG/DL (0.60-1.30); POTASSIUM 3.8 MMOL/L (3.6-5.0); TOTAL PROTEIN 8.2 GM/DL (6.4-8.2)
[2019-04-14] MEDS ORDERED: fentaNYL INJECTION 100 MCG/2 ML AMP IVP ONE ×2 (20:15→21:00)
[2019-04-14] MEDS ORDERED: ONDANSETRON 4 MG/2 ML (SDV) Z0FRAN ONE (20:40)
--- NOTE | 2019-04-14 20:41 | Diagnostic Imaging Report ---
INDICATION: Left lower quadrant pain, prior history of diverticulitis. EXAM: CT of the abdomen and pelvis obtained without IV contrast. COMPARISON made with 12/25/2018. FINDINGS: The visualized portions of the lung bases are clear. There were no pleural fluid collections. There was no free intraperitoneal air. The liver shows no focal lesion without contrast. The gallbladder is absent. The spleen, pancreas, and adrenals appear normal. The kidneys bilaterally are unremarkable. There is no retroperitoneal mass or adenopathy. There is no ascites or abnormal fluid collections. The visualized bowel loops showed no sign of bowel obstruction or ileus. There is sigmoid diverticulosis. There is minimal fat stranding adjacent to the sigmoid colon compatible with early diverticulitis. IMPRESSION: There is sigmoid diverticulosis. There is minimal fat stranding adjacent to the sigmoid colon compatible with early or mild diverticulitis. There is no evidence of abscess. The patient has had previous cholecystectomy. There is no acute finding otherwise seen. Dictated by: Dictated on workstation # [id number]
[2019-04-14] MEDS ORDERED: ONDANSETRON 4 MG/2 ML (SDV) Z0FRAN IVP ONE ×3 (20:45→21:15)
[2019-04-14] MEDS ORDERED: PIPERACILLIN SODIUM/TAZOBACTAM 4.5 GM in NS (IVPB) 100 ML IV ONE (21:00)
[2019-04-14] MEDS ORDERED: VANCOMYCIN INJECTION 1,000 MG in NS (IVPB) 250 ML IV ONE (21:00)
--- NOTE | 2019-04-14 21:03 | Diagnostic Imaging Report ---
INDICATION: Left lower quadrant pain, history of diverticulitis. Abdominal series performed with a frontal chest radiograph and supine and upright abdominal films. There is cardiomegaly. There is mild central vascular prominence. There is no focal consolidation or pleural fluid. There is no free air on the upright view. There are surgical clips in the right upper quadrant. Bowel gas pattern is nonspecific. There is no sign of obstruction or ileus. There are phleboliths in the pelvis. IMPRESSION: Unremarkable bowel gas pattern with no sign of obstruction or ileus. No free air. Evidence of cholecystectomy. There is cardiomegaly and mild central vascular prominence with no focal infiltrate. Dictated by: Dictated on workstation # [id number]
[2019-04-14] MEDS ORDERED: diphenhydrAMINE 50 MG/ML INJ (BENADRYL) IVP ONE (21:15)
--- NOTE | 2019-04-14 21:26 | NUR ---
report given to Raúl
[2019-04-14 23:45] VITALS: BP 106/53
[2019-04-15] MEDS ORDERED: D5 1/2 NS W/KCL 20 MEQ/L 1,000 ML IV SCH (00:15)
[2019-04-15] MEDS: metroNIDAZOLE 500 MG/100 ML IVPB (PRE-MIX) IV SCH ×5 (02:27→23:28)
[2019-04-15] MEDS: morphine INJ 4 MG/ML 1 ML (VIAL/SYRINGE) IV PRN ×2 (02:58→08:25)
[2019-04-15] MEDS ORDERED: PIPERACILLIN/TAZO 4.5 GM VIAL (ZOSYN) IV ONE ×2 (04:34→04:38)
[2019-04-15] MEDS ORDERED: NS (IVPB) 100 ML ONE (04:39)
[2019-04-15 04:58] VITALS: BP 102/53
[2019-04-15] MEDS: PIPERACILLIN/TAZO 4.5 GM/NS 100 ML IV SCH ×6 (05:09→18:40)
[2019-04-15 06:41] LABS: BASOPHILS % (AUTO) 0 % (0-10); EOSINOPHILS % (AUTO) 0 % (0-10); HEMATOCRIT 30 % (35-52); HEMOGLOBIN 9.8 G/DL (11.5-16.0); LYMPHOCYTES # (AUTO) 1.7 X 10^3 (1.0-4.0); LYMPHOCYTES % (AUTO) 19 % (12-44); MEAN CORPUSCULAR HEMOGLOBIN 31 PG (25-34); MEAN CORPUSCULAR HGB CONC 33 G/DL (32-36); MEAN CORPUSCULAR VOLUME 94 FL (80-99); MEAN PLATELET VOLUME 9.8 FL (7.4-10.4); MONOCYTES # (AUTO) 0.4 X 10^3 (0.0-1.0); MONOCYTES % (AUTO) 4 % (0-12); NEUTROPHILS % (AUTO) 77 % (42-75); PLATELET COUNT 218 10^3/uL (130-400); RED CELL DISTRIBUTION WIDTH 13.4 % (10.0-14.5); WHITE BLOOD COUNT 9.1 10^3/uL (4.3-11.0)
[2019-04-15 06:59] LABS: ALBUMIN 3.6 GM/DL (3.2-4.5); BILIRUBIN,TOTAL 0.5 MG/DL (0.1-1.0); CALCIUM 8.5 MG/DL (8.5-10.1); CREATININE SERUM 1.53 MG/DL (0.60-1.30); POTASSIUM 3.7 MMOL/L (3.6-5.0); TOTAL PROTEIN 6.2 GM/DL (6.4-8.2)
[2019-04-15 08:00] VITALS: BP 119/76
[2019-04-15] MEDS: ONDANSETRON 4 MG/2 ML (SDV) Z0FRAN IV PRN (09:58)
[2019-04-15] MEDS ORDERED: LOSA25TA41 PO (10:27)
[2019-04-15] MEDS ORDERED: SPIR25TA5 PO (10:27)
[2019-04-15] MEDS ORDERED: AMIO200T4 PO (10:27)
[2019-04-15] MEDS ORDERED: BUME1TAB8 PO ×2 (10:27)
[2019-04-15] MEDS ORDERED: COLE1TAB PO (10:27)
[2019-04-15] MEDS ORDERED: CARV6.252 PO (10:27)
[2019-04-15] MEDS ORDERED: LEVO25TA5 PO (10:36)
[2019-04-15] MEDS ORDERED: PANT40TA2 PO (10:36)
--- NOTE | 2019-04-15 10:43 | NUR ---
SPOKE WITH THE PATIENT ABOUT HER MEDICATIONS. SHE HAD A LIST WITH HER AND WE WENT OVER THE EXT MED HX. THERE WERE SOME CHANGES THAT HAVE BEEN MADE SINCE SHE UPDATED HER LIST BUT SHE WAS ABLE TO VERIFY THOSE CHANGES. HER AMIODARONE 200MG #60 FOR 30 DAYS WAS FILLED 04-08-19 HOWEVER SHE STATES SHE ONLY TAKES 1 TAB IN THE MORNING. SHE TAKES TYLENOL PRN AND CRANBERRY DAILY OTC.
[2019-04-15 12:00] VITALS: BP 123/64
[2019-04-15] MEDS ORDERED: SCOPOLAMINE 1.5 MG (TRANSDERM-SCOP) PATCH TD NR (13:00)
--- NOTE | 2019-04-15 14:08 | Diagnostic Imaging Report ---
INDICATION: Abdominal swelling. FINDINGS: The liver is normal in size at 15.5 cm. There is a cyst in the left lobe of the liver measuring 1 cm. The portal vein is patent and shows normal direction of flow. Gallbladder is surgically absent. No biliary ductal dilatation is seen. The visualized pancreas is unremarkable. The spleen is normal in size at 9.9 cm. Proximal and mid aorta is non-aneurysmal. Distal aorta was obscured by bowel gas. IVC is patent. Right and left kidneys are without evidence of calculi or hydronephrosis. There is no ascites. IMPRESSION: 1. Hepatic cyst. 2. Status post cholecystectomy. 3. No evidence of ascites. Dictated by: Dictated on workstation # [id number]
[2019-04-15 14:13] LABS: PROTHROMBIN TIME PATIENT 32.8 SEC (12.2-14.7)
[2019-04-15 16:00] VITALS: BP 120/77
[2019-04-15 17:02] VITALS: BP 120/77
[2019-04-15] MEDS: PROCHLORPERAZINE 10 MG/2ML INJ (COMPAZINE) IV PRN (17:25)
--- NOTE | 2019-04-15 19:34 | History & Physical ---
History of Present Illness History of Present Illness Reason for visit/HPI This is a 68 year old female who was treated for diverticulitis about 1 month ago as an outpatient she was doing better until yesterday when she had the sudden onset of abdominal cramping with nausea, loose stools and poor appetite. She was brought to the emergency room by her where she was found to have an elevated WBC count at 12.[address] scan of the abdomen and pelvis showed mild sigmoid diverticulitis. It was decided to treat her as failed outpatient treatment and to admit her for IV antibiotics as well as IV pain control and antiemetics. Date of Admission Apr 14, 2019 at 21:00 Date Seen by a Provider: Apr 15, 2019 Time Seen by a Provider: 12:35 I consulted on this patient on 04/15/19 19:29 Attending Physician Jalyn Serna DO Admitting Physician Jalyn Serna DO Consult Allergies and Home Medications Allergies Coded Allergies: rosuvastatin (Unverified Allergy, Mild, 03/06/18) sacubitril (Verified Allergy, Mild, RASH, 07/01/18) PATIENT HAS ITCHING FROM MEDICATION valsartan (Verified Allergy, Mild, RASH, 07/01/18) PATIENT HAS ITCHING FROM MEDICATION Sulfa (Sulfonamide Antibiotics) (Verified Allergy, Unknown, 03/06/18) fentanyl (Verified Adverse Reaction, Unknown, Vomiting, 04/14/19) Home Medications Acetaminophen 500 Mg Tablet, 500-1,000 MG PO Q6H PRN for PAIN-MILD, (Reported) Amiodarone HCl 200 Mg Tablet, 200 MG PO DAILY, (Reported) Bumetanide 1 Mg Tablet, 1 MG PO 0900,1800, (Reported) Carvedilol 6.25 Mg Tablet, 6.25 MG PO 0900,1800, (Reported) Colestipol HCl 1 Gm Tablet, 1 GM PO 1200,2000, (Reported) Cranberry Extract/Vit C 1 Each Capsule, 1 CAP PO DAILY, (Reported) Levothyroxine Sodium 25 Mcg Tablet, 25 MCG PO DAILY, (Reported) Losartan Potassium 25 Mg Tablet, 25 MG PO DAILY, (Reported) Pantoprazole Sodium 40 Mg Tablet.dr, 40 MG PO DAILY, (Reported) Pantoprazole Sodium 40 Mg Tablet.dr, 40 MG PO 1800 PRN for HEARTBURN, (Reported) Spironolactone 25 Mg Tablet, 25 MG PO 0900,1800, (Reported) Temazepam 15 Mg Capsule, 15-30 MG PO HS PRN for SLEEP, (Reported) Warfarin Sodium 5 Mg Tablet, 5 MG PO , (Reported) Warfarin Sodium 5 Mg Tablet, 2.5 MG PO [id number], (Reported) TAKES 1/2 (5MG) TABLET Patient Home Medication List Home Medication List Reviewed: Yes Past Fwvksal-Xbesid-Gmnokm Hx Past Med/Social Hx: Reviewed Nursing Past Med/Soc Hx, Reviewed and Corrections made Patient Social History Alcohol Use: Occasionally Uses Number of Drinks Today: II Alcohol Beverage of Choice: Wine, Other Recreational Drug Use: No Smoking Status: Never a Smoker 2nd Hand Smoke Exposure: Yes Recent Foreign Travel: No Contact w/other who traveled: No Recent Hopitalizations: Yes (JANUARY 2018-GALLBLADDER X 1 WEEK) Recent Infectious Disease Expo: No Immunizations Up To Date Tetanus Booster (TDap): Less than 5yrs Pediatric: No Date of Pneumonia Vaccine: Apr 26, 2018 Date of Influenza Vaccine: Mar 27, 2019 Seasonal Allergies Seasonal Allergies: No Past Medical History Surgeries: Bladder Surgery, Breast, Cardiac, Defibrillator, Gallbladder, Hysterectomy, Oophorectomy, Pacemaker Respiratory: Sleep Apnea Currently Using CPAP: Yes (at night) Currently Using BIPAP: No Cardiac: Atrial Fibrillation, Cardiomyopathy, Coronary Artery Disease, Hypertension, Irregular Heartbeat, Valvular Heart Disease : No Reproductive: No (X1 MISCARRIAGE) Sexually Transmitted Disease: No HIV/AIDS: No Hysterectomy, Menopausal Genitourinary: UTI-Chronic Gastrointestinal: Gastroesophageal Reflux, Liver Disease/Jaundice, Diverticulosis, Polyps, C-Diff Musculoskeletal: Chronic Back Pain Loss of Vision: Bilateral Hearing Impairment: Denies Psychosocial: Anxiety, Depression History of Blood Disorders: No Adverse Reaction to Blood Cancino: No (HAS HAD BLOOD WITH NO REACTIION) Family History Heart Disease, CAD Under 55 Years Old Review of Systems Constitutional: weakness EENTM: No see HPI, No no symptoms reported, No ear discharge, No hearing loss, No ear pain, No blurred vision, No double vision, No eye pain, No tearing, No vision loss, No dental problems, No hoarseness, No mouth pain, No mouth swelling, No epistaxis, No nose congestion, No nose pain, No throat pain, No throat swelling, No other Respiratory: No no symptoms reported, No see HPI, No cough, No dyspnea on exertion, No hemoptysis, No orthopnea, No phlegm, No short of breath, No stridor, No wheezing, No other Cardiovascular: No no symptoms reported, No see HPI, No chest pain, No edema, No Hx of Intervention, No palpitations, No syncope, No vascular heart diseas, No other Gastrointestinal: abdominal pain, diarrhea, loss of appetite, nausea Genitourinary: decreased output Musculoskeletal: back pain, muscle weakness Skin: No no symptoms reported, No see HPI, No change in color, No change in hair/nails, No dryness, No hx of skin cancer, No lesions, No lumps, No pruritus, No rash, No other Psychiatric/Neurological: Weakness Physical Exam Vital Signs Vital Signs - First Documented 04/14/19 19:20 Temp 36.8 Pulse 73 Resp 13 B/P (MAP) 134/65 (88) Pulse Ox 97 O2 Delivery Room Air Capillary Refill : Less Than 3 Seconds Height, Weight, BMI Height: 4'11.00" Weight: 130lbs. 14.4oz. [id number]; 29.41 BMI Method:Stated General Appearance: Mild Distress HEENT: Normal ENT Inspection Neck: Supple Respiratory: Lungs Clear Cardiovascular: Regular Rate, Rhythm, Systolic Murmur Gastrointestinal: Normal Bowel Sounds, Soft, Tenderness (LLQ) Rectal: Deferred Extremity: Non Tender, No Calf Tenderness, No Pedal Edema Neurologic/Psychiatric: Alert, Oriented x3 Skin: Warm/Dry Comments Laboratory Tests 04/14/19 19:42: White Blood Count 12.3H, Red Blood Count 3.76L, Hemoglobin 11.4L, Hematocrit 35, Mean Corpuscular Volume 92, Mean Corpuscular Hemoglobin 30, Mean Corpuscular He moglobin Concent 33, Red Cell Distribution Width 13.4, Platelet Count 339, Mean Platelet Volume 9.5, Neutrophils (%) (Auto) 73, Lymphocytes (%) (Auto) 20, Monocytes (%) (Auto) 6, Eosinophils (%) (Auto) 1, Basophils (%) (Auto) 0, Neutrophils # (Auto) 9.0H, Lymphocytes # (Auto) 2.4, Monocytes # (Auto) 0.7, Eosinophils # (Auto) 0.1, Basophils # (Auto) 0.0, Sodium Level 139, Potassium Level 3.8, Chloride Level 103, Carbon Dioxide Level 22, Anion Gap 14, Blood Urea Nitrogen 28H, Creatinine 1.40H, Estimat Glomerular Filtration Rate 38, BUN/Creatinine Ratio 20, Glucose Level 97, Lactic Acid Level 0.89, Calcium Level 9.3, Corrected Calcium 8.9, Magnesium Level 2.0, Total Bilirubin 0.5, Aspartate Amino Transf (AST/SGOT) 27, Alanine Aminotransferase (ALT/SGPT) 37, Alkaline Phosphatase 112, Total Protein 8.2, Albumin 4.5, Amylase Level 45, Lipase 32 04/15/19 05:59: White Blood Count 9.1, Red Blood Count 3.18L, Hemoglobin 9.8L, Hematocrit 30L, Mean Corpuscular Volume 94, Mean Corpuscular Hemoglobin 31, Mean Corpuscular Hemoglobin Concent 33, Red Cell Distribution Width 13.4, Platelet Count 218, Mean Platelet Volume 9.8, Neutrophils (%) (Auto) 77H, Lymphocytes (%) (Auto) 19, Monocytes (%) (Auto) 4, Eosinophils (%) (Auto) 0, Basophils (%) (Auto) 0, Neutrophils # (Auto) 7.0, Lymphocytes # (Auto) 1.7, Monocytes # (Auto) 0.4, Eosinophils # (Auto) 0.0, Basophils # (Auto) 0.0, Sodium Level 139, Potassium Level 3.7, Chloride Level 107, Carbon Dioxide Level 18L, Anion Gap 14, Blood Urea Nitrogen 28H, Creatinine 1.53H, Estimat Glomerular Filtration Rate 34, BUN/Creatinine Ratio 18, Glucose Level 145H, Calcium Level 8.5, Corrected Calcium 8.8, Total Bilirubin 0.5, Aspartate Amino Transf (AST/SGOT) 21, Alanine Aminotransferase (ALT/SGPT) 30, Alkaline Phosphatase 82, Total Protein 6.2L, Albumin 3.6 04/15/19 13:34: Prothrombin Time 32.8H, INR Comment 3.0H, B-Type Natriuretic Peptide 315.2H Microbiology 04/14/19 Blood Culture - Preliminary, Resulted No growth Assessment/Plan Assessment and Plan 1. Acute Sigmoid Diverticulitis with no abscess--admit for IV zosyn, flagyl and IV morphine for pain control 2. Acute on Chronic Renal Insufficiency--hydrate and monitor creatinine 3. Paroxysmal Atrial Fibrillation--hold coumadin and monitor INR Admission Diagnosis Admission Status: Inpatient Order (span 2 midnights) Reason for Inpatient Admission: Will need IV abx for at least 48hr Clinical Quality Measures DVT/VTE Risk/Contraindication: Risk Factor Score Per Nursin RFS Level Per Nursing on Admit: 3=High JALYN SERNA DO Apr 15, 2019 19:34
[2019-04-15] MEDS ORDERED: NON-FORMULARY MEDICATION 1 EA EA (Temazepam 15 MG) PO PRN (19:45)
[2019-04-15 20:30] VITALS: BP 127/71
[2019-04-15] MEDS ORDERED: VANCOMYCIN 1 GM/NS 250 ML IVPB IV SCH ×2 (21:00)
[2019-04-15] MEDS: TEMAZEPAM 15 MG (RESTORIL) CAP PO PRN (21:19)
[2019-04-16 00:15] VITALS: BP 138/60
[2019-04-16] MEDS: PIPERACILLIN/TAZO 4.5 GM/NS 100 ML IV SCH ×6 (02:50→18:16)
[2019-04-16] MEDS: morphine INJ 4 MG/ML 1 ML (VIAL/SYRINGE) IV PRN (02:51)
[2019-04-16 04:00] VITALS: BP 114/61
[2019-04-16] MEDS: metroNIDAZOLE 500 MG/100 ML IVPB (PRE-MIX) IV SCH ×3 (05:25→18:16)
[2019-04-16] MEDS: PANTOPRAZOLE 40 MG (PROTONIX) TAB PO SCH (05:26)
[2019-04-16] MEDS: LEVOTHYROXINE 25 MCG (LEVOTHROID) TAB PO SCH (05:26)
[2019-04-16 05:59] LABS: BASOPHILS % (AUTO) 0 % (0-10); EOSINOPHILS # (AUTO) 0.1 10^3/uL (0.0-0.3); EOSINOPHILS % (AUTO) 1 % (0-10); HEMATOCRIT 32 % (35-52); HEMOGLOBIN 10.3 G/DL (11.5-16.0); LYMPHOCYTES # (AUTO) 1.3 X 10^3 (1.0-4.0); LYMPHOCYTES % (AUTO) 15 % (12-44); MEAN CORPUSCULAR HEMOGLOBIN 30 PG (25-34); MEAN CORPUSCULAR HGB CONC 32 G/DL (32-36); MEAN CORPUSCULAR VOLUME 94 FL (80-99); MEAN PLATELET VOLUME 9.7 FL (7.4-10.4); MONOCYTES # (AUTO) 0.5 X 10^3 (0.0-1.0); MONOCYTES % (AUTO) 6 % (0-12); NEUTROPHILS # (AUTO) 7.2 X 10^3 (1.8-7.8); NEUTROPHILS % (AUTO) 79 % (42-75); PLATELET COUNT 235 10^3/uL (130-400); RED CELL DISTRIBUTION WIDTH 13.4 % (10.0-14.5); WHITE BLOOD COUNT 9.2 10^3/uL (4.3-11.0)
[2019-04-16 06:10] LABS: INR 3.7 (0.8-1.4); PROTHROMBIN TIME PATIENT 38.4 SEC (12.2-14.7)
[2019-04-16 06:20] LABS: ALBUMIN 3.9 GM/DL (3.2-4.5); BILIRUBIN,TOTAL 0.8 MG/DL (0.1-1.0); CALCIUM 8.8 MG/DL (8.5-10.1); CREATININE SERUM 1.29 MG/DL (0.60-1.30); POTASSIUM 3.8 MMOL/L (3.6-5.0); TOTAL PROTEIN 6.6 GM/DL (6.4-8.2)
[2019-04-16 08:30] VITALS: BP 131/59
[2019-04-16] MEDS: AMIODARONE 200 MG (CORDARONE) TAB PO SCH (09:09)
[2019-04-16] MEDS: SPIRONOLACTONE 25 MG (ALDACTONE) TAB PO SCH ×2 (09:09→18:16)
[2019-04-16] MEDS: CARVEDILOL 6.25 MG (COREG) TAB PO SCH ×2 (09:09→18:16)
[2019-04-16 12:00] VITALS: BP 110/72
[2019-04-16 16:00] VITALS: BP 103/58
--- NOTE | 2019-04-16 18:10 | Progress Note ---
Subjective Date Seen by a Provider: Apr 16, 2019 Time Seen by a Provider: 12:25 Subjective/Events-last exam Fwup sigmoid diverticulitis, renal insufficiency, paroxysmal atrial fibr illation, Hx of systolic CHF. Sitting up in chair. Nausea better--would like to advance diet. Abdominal pain improving as well. Focused Exam Lactate Level 04/14/19 19:42: Lactic Acid Level 0.89 Objective Exam Vital Signs Date Time Temp Pulse Resp B/P (MAP) Pulse Ox O2 Delivery O2 Flow Rate FiO2 04/16/19 16:00 36.8 70 18 103/58 (73) 97 Room Air 04/16/19 12:00 36.8 70 20 110/72 (85) 96 Room Air 04/16/19 09:10 Room Air 04/16/19 08:30 36.5 71 20 131/59 (83) 97 Room Air 04/16/19 04:00 36.2 66 18 114/61 (78) 92 Room Air 04/16/19 00:15 36.2 70 18 138/60 (86) 96 Room Air 04/15/19 20:30 36.4 70 18 127/71 (89) 96 Room Air 04/15/19 20:00 Room Air I & O 04/16/19 07:00 Intake Total 2640 ml Output Total 850 ml Balance 1790 ml Capillary Refill : Less Than 3 Seconds General Appearance: No Apparent Distress Respiratory: Lungs Clear Cardiovascular: Regular Rate, Rhythm, Systolic Murmur Gastrointestinal: normal bowel sounds, soft, tenderness (LUQ) Extremity: Non Tender, No Calf Tenderness, No Pedal Edema Neurologic/Psychiatric: Alert, Oriented x3 Skin: Warm/Dry Results Lab Laboratory Tests 04/16/19 05:45: White Blood Count 9.2, Red Blood Count 3.39L, Hemoglobin 10.3L, Hematocrit 32L, Mean Corpuscular Volume 94, Mean Corpuscular Hemoglobin 30, Mean Corpuscular Hemoglobin Concent 32, Red Cell Distribution Width 13.4, Platelet Count 235, Mean Platelet Volume 9.7, Neutrophils (%) (Auto) 79H, Lymphocytes (%) (Auto) 15, Monocytes (%) (Auto) 6, Eosinophils (%) (Auto) 1, Basophils (%) (Auto) 0, Neutrophils # (Auto) 7.2, Lymphocytes # (Auto) 1.3, Monocytes # (Auto) 0.5, Eosinophils # (Auto) 0.1, Basophils # (Auto) 0.0, Prothrombin Time 38.4H, INR Comment 3.7H, Sodium Level 139, Potassium Level 3.8, Chloride Level 108H, Carbon Dioxide Level 20L, Anion Gap 11, Blood Urea Nitrogen 16, Creatinine 1.29, Estimat Glomerular Filtration Rate 41, BUN/Creatinine Ratio 12, Glucose Level 12 4H, Calcium Level 8.8, Corrected Calcium 8.9, Total Bilirubin 0.8, Aspartate Amino Transf (AST/SGOT) 23, Alanine Aminotransferase (ALT/SGPT) 28, Alkaline Phosphatase 83, Total Protein 6.6, Albumin 3.9 Microbiology 04/14/19 Blood Culture - Preliminary, Resulted No growth Assessment/Plan Assessment/Plan Assess & Plan/Chief Complaint 1. Acute Sigmoid Diverticulitis--continue zosyn and flagyl 2. Intractable N/V--improved, advance to soft diet 3. Acute Renal Insuff--Creatinine improved 4. Paroxysmal Atrial Fibrillation--INR 3.7 with coumadin on hold 5. Hx. of Systolic CHF--resume bumex tomorrow Clinical Quality Measures Admission Status Admission Dx 1. Acute Sigmoid Diverticulitis with no abscess--admit for IV zosyn, flagyl and IV morphine for pain control 2. Acute on Chronic Renal Insufficiency--hydrate and monitor creatinine 3. Paroxysmal Atrial Fibrillation--hold coumadin and monitor INR DVT/VTE Risk/Contraindication: Risk Factor Score Per Nursin RFS Level Per Nursing on Admit: 3=High FARHAT SERNA DO Apr 16, 2019 18:10
[2019-04-16] MEDS ORDERED: TROUGH ORDER-PHARMACY XX NR (20:00)
[2019-04-16 20:18] VITALS: BP 121/63
[2019-04-16] MEDS: TEMAZEPAM 15 MG (RESTORIL) CAP PO PRN (22:42)
[2019-04-17] MEDS: metroNIDAZOLE 500 MG/100 ML IVPB (PRE-MIX) IV SCH ×3 (00:27→13:30)
[2019-04-17] MEDS: morphine INJ 4 MG/ML 1 ML (VIAL/SYRINGE) IV PRN ×2 (00:33→22:43)
[2019-04-17 00:48] VITALS: BP 111/68
[2019-04-17] MEDS: PIPERACILLIN/TAZO 4.5 GM/NS 100 ML IV SCH ×4 (03:08→13:24)
[2019-04-17 04:40] VITALS: BP 114/73
[2019-04-17 05:20] LABS: BASOPHILS % (AUTO) 0 % (0-10); EOSINOPHILS # (AUTO) 0.1 10^3/uL (0.0-0.3); EOSINOPHILS % (AUTO) 2 % (0-10); HEMATOCRIT 30 % (35-52); HEMOGLOBIN 9.6 G/DL (11.5-16.0); LYMPHOCYTES # (AUTO) 2.1 X 10^3 (1.0-4.0); LYMPHOCYTES % (AUTO) 23 % (12-44); MEAN CORPUSCULAR HEMOGLOBIN 30 PG (25-34); MEAN CORPUSCULAR HGB CONC 32 G/DL (32-36); MEAN CORPUSCULAR VOLUME 94 FL (80-99); MEAN PLATELET VOLUME 9.9 FL (7.4-10.4); MONOCYTES # (AUTO) 0.8 X 10^3 (0.0-1.0); MONOCYTES % (AUTO) 8 % (0-12); NEUTROPHILS # (AUTO) 6.1 X 10^3 (1.8-7.8); NEUTROPHILS % (AUTO) 67 % (42-75); PLATELET COUNT 232 10^3/uL (130-400); RED CELL DISTRIBUTION WIDTH 13.4 % (10.0-14.5); WHITE BLOOD COUNT 9.1 10^3/uL (4.3-11.0)
[2019-04-17 05:47] LABS: INR 3.5 (0.8-1.4); PROTHROMBIN TIME PATIENT 36.8 SEC (12.2-14.7)
[2019-04-17 05:57] LABS: ALBUMIN 3.6 GM/DL (3.2-4.5); BILIRUBIN,TOTAL 0.6 MG/DL (0.1-1.0); CALCIUM 8.4 MG/DL (8.5-10.1); CREATININE SERUM 1.12 MG/DL (0.60-1.30); POTASSIUM 3.4 MMOL/L (3.6-5.0); TOTAL PROTEIN 6.2 GM/DL (6.4-8.2)
[2019-04-17] MEDS: LEVOTHYROXINE 25 MCG (LEVOTHROID) TAB PO SCH (06:42)
[2019-04-17] MEDS: PANTOPRAZOLE 40 MG (PROTONIX) TAB PO SCH (06:42)
[2019-04-17 08:10] VITALS: BP 116/57
[2019-04-17] MEDS: AMIODARONE 200 MG (CORDARONE) TAB PO SCH (08:27)
[2019-04-17] MEDS: SPIRONOLACTONE 25 MG (ALDACTONE) TAB PO SCH ×2 (08:27→18:36)
[2019-04-17] MEDS: CARVEDILOL 6.25 MG (COREG) TAB PO SCH ×2 (08:27→18:36)
[2019-04-17] MEDS ORDERED: BUMETANIDE 1 MG (BUMEX) TAB PO SCH (09:00)
[2019-04-17 11:46] VITALS: BP 138/64
--- NOTE | 2019-04-17 12:42 | Progress Note ---
Subjective Date Seen by a Provider: Apr 17, 2019 Time Seen by a Provider: 12:39 Subjective/Events-last exam Fwup sigmoid diverticulitis, renal insufficiency, paroxysmal atrial fib rillation, Hx of systolic CHF. Sitting up in chair. C/O edema. Having loose stools but abdominal pain better. Focused Exam Lactate Level 04/14/19 19:42: Lactic Acid Level 0.89 Objective Exam Vital Signs Date Time Temp Pulse Resp B/P (MAP) Pulse Ox O2 Delivery O2 Flow Rate FiO2 04/17/19 11:46 36.9 71 18 138/64 (88) 99 Room Air 04/17/19 08:10 36.4 70 18 116/57 (76) 96 Room Air 04/17/19 04:40 35.8 69 20 114/73 (87) 96 Room Air 04/17/19 00:48 36.1 77 18 111/68 (82) 93 Room Air 04/16/19 20:18 36.5 73 18 121/63 (82) 97 Room Air 04/16/19 20:00 Room Air 04/16/19 16:00 36.8 70 18 103/58 (73) 97 Room Air I & O 04/17/19 07:00 Intake Total 1250 ml Output Total 1200 ml Balance 50 ml Capillary Refill : Less Than 3 Seconds General Appearance: No Apparent Distress Neck: Supple Respiratory: Lungs Clear Cardiovascular: Regular Rate, Rhythm Gastrointestinal: normal bowel sounds, non tender, soft Extremity: Non Tender, No Calf Tenderness, Pedal Edema (trace) Neurologic/Psychiatric: Alert, Oriented x3 Results Lab Laboratory Tests 04/17/19 04:35: White Blood Count 9.1, Red Blood Count 3.18L, Hemoglobin 9.6L, Hematocrit 30L, Mean Corpuscular Volume 94, Mean Corpuscular Hemoglobin 30, Mean Corpuscular Hemoglobin Concent 32, Red Cell Distribution Width 13.4, Platelet Count 232, Mean Platelet Volume 9.9, Neutrophils (%) (Auto) 67, Lymphocytes (%) (Auto) 23, Monocytes (%) (Auto) 8, Eosinophils (%) (Auto) 2, Basophils (%) (Auto) 0, Neutrophils # (Auto) 6.1, Lymphocytes # (Auto) 2.1, Monocytes # (Auto) 0.8, Eosinophils # (Auto) 0.1, Basophils # (Auto) 0.0, Prothrombin Time 36.8H, INR Comment 3.5H, Sodium Level 139, Potassium Level 3.4L, Chloride Level 107, Carbon Dioxide Level 20L, Anion Gap 12, Blood Urea Nitrogen 14, Creatinine 1.12, Estimat Glomerular Filtration Rate 49, BUN/Creatinine Ratio 13, Glucose Level 96, Calcium Level 8.4L, Corrected Calcium 8.7, Total Bilirubin 0.6, Aspartate Amino Transf (AST/SGOT) 18, Alanine Aminotransferase (ALT/SGPT) 21, Alkaline Phosphatase 71, Total Protein 6.2L, Albumin 3.6 Microbiology 04/14/19 Blood Culture - Preliminary, Resulted No growth 04/17/19 C. difficile DNA Amplification, Resulted Pending 04/17/19 C. difficile GDH Antigen & Toxins - Final, Resulted Assessment/Plan Assessment/Plan Assess & Plan/Chief Complaint 1. Acute Sigmoid Diverticulitis--continue zosyn and flagyl 2. Intractable N/V--improved, advance to cardiac diet 3. Acute Renal Insuff--Creatinine improved 4. Paroxysmal Atrial Fibrillation--INR 3.5 but down from yesterday so will give low dose warfarin tonight 5. Hx. of Systolic CHF with edema--bumex resumed 6. Hypokalemia--replace potassium Clinical Quality Measures Admission Status Admission Dx 1. Acute Sigmoid Diverticulitis with no abscess--admit for IV zosyn, flagyl and IV morphine for pain control 2. Acute on Chronic Renal Insufficiency--hydrate and monitor creatinine 3. Paroxysmal Atrial Fibrillation--hold coumadin and monitor INR DVT/VTE Risk/Contraindication: Risk Factor Score Per Nursin RFS Level Per Nursing on Admit: 3=High FARHAT SERNA DO Apr 17, 2019 12:41
[2019-04-17] MEDS ORDERED: KCL 8 MEQ (MICRO K) TABLET PO NR (12:45)
[2019-04-17] MEDS ORDERED: COLESTIPOL 1 GM (COLESTID) TAB PO NR (12:45)
[2019-04-17 15:40] VITALS: BP 134/63
--- NOTE | 2019-04-17 15:52 | NUR ---
Pastoral care visit.
--- NOTE | 2019-04-17 16:53 | NUR ---
Elina SILVA ask me to do patient teaching on Cdiff. I did give her teaching oral and written. I also answered her questions about how she may have gotten it and about incubation period of Cdiff. I left Dr Daily an voice mail to call me about the test results after I talked to her office and they suggested I call her. Patient does not have any further questions.
[2019-04-17] MEDS: warFARin 3 MG (COUMADIN) TAB PO SCH (18:36)
[2019-04-17] MEDS: LACTOBACILLUS ACIDOPHILUS (PROBIOTIC) CAPSULE PO SCH (18:37)
[2019-04-17] MEDS: BUMETANIDE 1 MG (BUMEX) TAB PO SCH (18:37)
[2019-04-17 19:30] VITALS: BP 121/61
[2019-04-17] MEDS: COLESTIPOL 1 GM (COLESTID) TAB PO SCH (20:59)
[2019-04-17] MEDS: metroNIDAZOLE 500 MG (FLAGYL) TAB PO SCH (20:59)
[2019-04-17] MEDS: TEMAZEPAM 15 MG (RESTORIL) CAP PO PRN (21:17)
[2019-04-18] VITALS (7 sets, daily range): BP systolic 94–133; BP diastolic 53–68
[2019-04-18] MEDS: ONDANSETRON 4 MG/2 ML (SDV) Z0FRAN IV PRN ×3 (04:24→23:43)
[2019-04-18 05:48] LABS: BASOPHILS % (AUTO) 0 % (0-10); EOSINOPHILS # (AUTO) 0.2 10^3/uL (0.0-0.3); EOSINOPHILS % (AUTO) 2 % (0-10); HEMATOCRIT 32 % (35-52); HEMOGLOBIN 10.2 G/DL (11.5-16.0); LYMPHOCYTES # (AUTO) 2.1 X 10^3 (1.0-4.0); LYMPHOCYTES % (AUTO) 20 % (12-44); MEAN CORPUSCULAR HEMOGLOBIN 30 PG (25-34); MEAN CORPUSCULAR HGB CONC 32 G/DL (32-36); MEAN CORPUSCULAR VOLUME 94 FL (80-99); MEAN PLATELET VOLUME 9.9 FL (7.4-10.4); MONOCYTES # (AUTO) 0.7 X 10^3 (0.0-1.0); MONOCYTES % (AUTO) 7 % (0-12); NEUTROPHILS # (AUTO) 7.3 X 10^3 (1.8-7.8); NEUTROPHILS % (AUTO) 71 % (42-75); PLATELET COUNT 256 10^3/uL (130-400); RED CELL DISTRIBUTION WIDTH 13.6 % (10.0-14.5); WHITE BLOOD COUNT 10.3 10^3/uL (4.3-11.0)
[2019-04-18 05:58] LABS: INR 2.8 (0.8-1.4); PROTHROMBIN TIME PATIENT 30.9 SEC (12.2-14.7)
[2019-04-18 06:08] LABS: ALBUMIN 4.2 GM/DL (3.2-4.5); BILIRUBIN,TOTAL 0.6 MG/DL (0.1-1.0); CALCIUM 8.7 MG/DL (8.5-10.1); CREATININE SERUM 1.06 MG/DL (0.60-1.30); POTASSIUM 3.4 MMOL/L (3.6-5.0); TOTAL PROTEIN 6.9 GM/DL (6.4-8.2)
[2019-04-18] MEDS: LEVOTHYROXINE 25 MCG (LEVOTHROID) TAB PO SCH (06:35)
[2019-04-18] MEDS: LACTOBACILLUS ACIDOPHILUS (PROBIOTIC) CAPSULE PO SCH ×3 (06:35→17:36)
[2019-04-18] MEDS: KCL 8 MEQ (MICRO K) TABLET PO SCH (06:35)
[2019-04-18] MEDS: BUMETANIDE 1 MG (BUMEX) TAB PO SCH ×2 (06:35→17:36)
[2019-04-18] MEDS: PANTOPRAZOLE 40 MG (PROTONIX) TAB PO SCH (06:35)
--- NOTE | 2019-04-18 07:34 | NUR ---
pastoral care consult placed for pt r/t pt being very concerned about her health & 's health, pt seems anxious & tearful at times.
[2019-04-18] MEDS: SPIRONOLACTONE 25 MG (ALDACTONE) TAB PO SCH ×2 (08:05→17:36)
[2019-04-18] MEDS: COLESTIPOL 1 GM (COLESTID) TAB PO SCH ×2 (08:05→22:06)
[2019-04-18] MEDS: CARVEDILOL 6.25 MG (COREG) TAB PO SCH ×2 (08:05→17:36)
[2019-04-18] MEDS: AMIODARONE 200 MG (CORDARONE) TAB PO SCH (08:05)
[2019-04-18] MEDS: metroNIDAZOLE 500 MG (FLAGYL) TAB PO SCH (08:05)
[2019-04-18] MEDS ORDERED: POTA8CAP20 PO (10:12)
[2019-04-18] MEDS ORDERED: VANCOMYCIN PO (10:12)
[2019-04-18] MEDS ORDERED: LACT1CAP7 PO (10:12)
[2019-04-18] MEDS ORDERED: KCL 8 MEQ (MICRO K) TABLET PO NR (10:15)
[2019-04-18] MEDS ORDERED: VANCOMYCIN ORAL SUSPENSION 60 ML BOTTLE PO SCH (10:15)
[2019-04-18] MEDS ORDERED: FUROSEMIDE 40 MG/4 ML INJ (LASIX) IVP NR (10:15)
[2019-04-18] MEDS ORDERED: SCOPOLAMINE 1.5 MG (TRANSDERM-SCOP) PATCH TD NR (10:15)
--- NOTE | 2019-04-18 10:17 | Progress Note ---
Subjective Date Seen by a Provider: Apr 18, 2019 Time Seen by a Provider: 10:14 Subjective/Events-last exam Fwup sigmoid diverticulitis, renal insufficiency, paroxysmal atrial fib rillation, Hx of systolic CHF. C. diff was positive and having nausea from oral flagyl. C/O feeling swollen in legs and abdomen. Objective Exam Vital Signs Date Time Temp Pulse Resp B/P (MAP) Pulse Ox O2 Delivery O2 Flow Rate FiO2 04/18/19 08:08 Room Air 04/18/19 08:00 36.0 72 18 126/67 (86) 98 Room Air 04/18/19 04:30 36.4 64 20 116/64 (81) 96 Room Air 04/18/19 00:15 110/68 (82) 04/18/19 00:10 35.8 71 18 94/53 (67) 96 Room Air 04/17/19 20:50 Room Air 04/17/19 19:30 36.3 70 20 121/61 (81) 97 Room Air 04/17/19 15:40 36.4 71 18 134/63 (86) 99 Room Air 04/17/19 11:46 36.9 71 18 138/64 (88) 99 Room Air I & O 04/18/19 07:00 Intake Total 2262 ml Balance 2262 ml Capillary Refill : Less Than 3 Seconds General Appearance: No Apparent Distress Neck: Supple Respiratory: Lungs Clear Cardiovascular: Regular Rate, Rhythm Gastrointestinal: normal bowel sounds, soft, tenderness (LLQ and RLQ) Extremity: Non Tender, No Calf Tenderness, Pedal Edema (trace) Neurologic/Psychiatric: Alert, Oriented x3 Skin: Warm/Dry Results Lab Laboratory Tests 04/18/19 05:17: White Blood Count 10.3, Red Blood Count 3.38L, Hemoglobin 10.2L, Hematocrit 32L, Mean Corpuscular Volume 94, Mean Corpuscular Hemoglobin 30, Mean Corpuscular Hemoglobin Concent 32, Red Cell Distribution Width 13.6, Platelet Count 256, Mean Platelet Volume 9.9, Neutrophils (%) (Auto) 71, Lymphocytes (%) (Auto) 20, Monocytes (%) (Auto) 7, Eosinophils (%) (Auto) 2, Basophils (%) (Auto) 0, Neutrophils # (Auto) 7.3, Lymphocytes # (Auto) 2.1, Monocytes # (Auto) 0.7, Eosinophils # (Auto) 0.2, Basophils # (Auto) 0.0, Prothrombin Time 30.9H, INR Comment 2.8H, Sodium Level 140, Potassium Level 3.4L, Chloride Level 106, Carbon Dioxide Level 21, Anion Gap 13, Blood Urea Nitrogen 12, Creatinine 1.06, Estimat Glomerular Filtration Rate 52, BUN/Creatinine Ratio 11, Glucose Level 107H, Calcium Level 8.7, Corrected Calcium 8.5, Total Bilirubin 0.6, Aspartate Amino Transf (AST/SGOT) 20, Alanine Aminotransferase (ALT/SGPT) 24, Alkaline Phosphatase 89, Total Protein 6.9, Albumin 4.2 Microbiology 04/14/19 Blood Culture - Preliminary, Resulted No growth 04/17/19 C. difficile DNA Amplification - Final, Complete 04/17/19 C. difficile GDH Antigen & Toxins - Final, Complete Assessment/Plan Assessment/Plan Assess & Plan/Chief Complaint 1. Acute Sigmoid Diverticulitis--improved 2. Intractable N/V--improved, advanced to cardiac diet 3. Acute Renal Insuff--Creatinine improved 4. Paroxysmal Atrial Fibrillation--INR 2.8, coumadin restarted yesterday 5. Hx. of Systolic CHF with edema--bumex resumed, extra lasix dose today 6. Hypokalemia--replace potassium 7. Clostridium Difficile Colitis--change to oral vancomycin and if tolerates then home tomorrow Clinical Quality Measures Admission Status Admission Dx 1. Acute Sigmoid Diverticulitis with no abscess--admit for IV zosyn, flagyl and IV morphine for pain control 2. Acute on Chronic Renal Insufficiency--hydrate and monitor creatinine 3. Paroxysmal Atrial Fibrillation--hold coumadin and monitor INR DVT/VTE Risk/Contraindication: Risk Factor Score Per Nursin RFS Level Per Nursing on Admit: 3=High FARHAT SERNA DO Apr 18, 2019 10:16
[2019-04-18] MEDS ORDERED: ONDA4TAB10 PO (10:18)
[2019-04-18] MEDS: VANCOMYCIN ORAL 250 MG/5 ML 120 ML PO SCH ×6 (11:16→23:43)
[2019-04-18] MEDS: PROCHLORPERAZINE 10 MG/2ML INJ (COMPAZINE) IV PRN (12:28)
[2019-04-18] MEDS ORDERED: SCOPOLAMINE PATCH REMOVAL TP SCH (13:00)
--- NOTE | 2019-04-18 16:30 | NUR ---
Pastoral care visit, pt shared about her and husbands health issues, shared alot of her story. Offered support and prayer.
[2019-04-18] MEDS: warFARin 3 MG (COUMADIN) TAB PO SCH (17:36)
[2019-04-18] MEDS: TEMAZEPAM 15 MG (RESTORIL) CAP PO PRN (22:14)
[2019-04-18] MEDS: morphine INJ 4 MG/ML 1 ML (VIAL/SYRINGE) IV PRN (23:43)
[2019-04-19] VITALS: BP 123/54
[2019-04-19] MEDS: PANTOPRAZOLE 40 MG (PROTONIX) TAB PO SCH (06:50)
[2019-04-19] MEDS: BUMETANIDE 1 MG (BUMEX) TAB PO SCH (06:50)
[2019-04-19] MEDS: KCL 8 MEQ (MICRO K) TABLET PO SCH (06:50)
[2019-04-19] MEDS: LACTOBACILLUS ACIDOPHILUS (PROBIOTIC) CAPSULE PO SCH (06:50)
[2019-04-19] MEDS: LEVOTHYROXINE 25 MCG (LEVOTHROID) TAB PO SCH (06:50)
[2019-04-19] MEDS: VANCOMYCIN ORAL 250 MG/5 ML 120 ML PO SCH ×2 (06:51)
[2019-04-19] MEDS: ONDANSETRON 4 MG/2 ML (SDV) Z0FRAN IV PRN (06:52)
[2019-04-19 08:00] VITALS: BP 100/65
[2019-04-19] MEDS: COLESTIPOL 1 GM (COLESTID) TAB PO SCH (08:54)
[2019-04-19] MEDS: SPIRONOLACTONE 25 MG (ALDACTONE) TAB PO SCH (08:55)
[2019-04-19] MEDS: CARVEDILOL 6.25 MG (COREG) TAB PO SCH (08:55)
[2019-04-19] MEDS: AMIODARONE 200 MG (CORDARONE) TAB PO SCH (08:55)
--- NOTE | 2019-04-19 10:36 | Discharge Inst-Simple/Standard ---
Discharge Inst-Standard Reconcile Patient Problems Problems Reviewed?: Yes Discharge Medications New, Converted or Re-Newed RX: RX Given to Pt/Family Patient Instructions/Follow Up Plan of Care/Instructions/FU: Please continue to take your medications as written. Please follow up with Dr Daily as scheduled. Activity as Tolerated: Yes Discharge Diet: No Restrictions Return to The Hospital For: Diarrhea, fever, weakness, confusion, abdominal pain, if you feel you are getting worse. SHERLY ANTONIO MD Apr 19, 2019 10:36 am
--- NOTE | 2019-04-19 10:41 | Discharge Summary ---
Diagnosis/Chief Complaint Date of Admission Apr 14, 2019 at 9:00 pm Date of Discharge Discharge Date: Apr 19, 2019 Primary Care Jalyn Daily DO Discharge Summary Discharge Physical Exam Allergies: Coded Allergies: rosuvastatin (Unverified Allergy, Mild, 03/06/18) sacubitril (Verified Allergy, Mild, RASH, 07/01/18) PATIENT HAS ITCHING FROM MEDICATION valsartan (Verified Allergy, Mild, RASH, 07/01/18) PATIENT HAS ITCHING FROM MEDICATION Sulfa (Sulfonamide Antibiotics) (Verified Allergy, Unknown, 03/06/18) fentanyl (Verified Adverse Reaction, Unknown, Vomiting, 04/14/19) Vitals & I&Os Vital Signs Date Time Temp Pulse Resp B/P (MAP) Pulse Ox O2 Delivery O2 Flow Rate FiO2 04/19/19 11:10 04/19/19 08:00 35.9 72 18 98 Room Air General Appearance: No Apparent Distress, WD/WN Neurologic/Psychiatric: Alert, Oriented x3 Hospital Course Pt is a 68yoCF who was admitted for sigmoid diverticulitis.She received Vanc and Zosyn on presentation and was switched to Zosyn and Flagyl as she improved. She developed diarrhea and testing for c diff was done and was positive. She was started on oral Vanc and tolerated it well. She was discharged home to complete oral Vancomycin and start on probiotics. She is to follow up with her primary care doctor, Dr Daily next week. Labs (last 24 hrs) Microbiology 04/14/19 Blood Culture - Final, Complete No growth 04/17/19 Stool Culture - Final, Complete Patient resulted labs reviewed. Discussion & Recommendations Discharge Planning: <30 minutes discharge planning Discharge Home Medications: Active Scripts Active Ondansetron HCl 4 Mg Tablet 4 Mg PO Q4H Acidophilus-Pectin Capsule (Lactobacillus Acidophilus/Pect) 1 Each Capsule 2 Each PO TIDWM Potassium Chloride 8 Meq Capsule.er 8 Meq PO DAILY@0700 [Vancomycin Oral Suspension] 60 ML Soln 2.5 Ml PO Q6H Reported Protonix (Pantoprazole Sodium) 40 Mg Tablet.dr 40 Mg PO 1800 PRN Levothyroxine Sodium 25 Mcg Tablet 25 Mcg PO DAILY Amiodarone HCl 200 Mg Tablet 200 Mg PO DAILY Carvedilol 6.25 Mg Tablet 6.25 Mg PO 0900,1800 Losartan Potassium 25 Mg Tablet 25 Mg PO DAILY Bumetanide 1 Mg Tablet 1 Mg PO 0900,1800 Spironolactone 25 Mg Tablet 25 Mg PO 0900,1800 Colestipol HCl 1 Gm Tablet 1 Gm PO 1200,2000 Warfarin Sodium 5 Mg Tablet 2.5 Mg PO SUMOWETHSA TAKES 1/2 (5MG) TABLET Warfarin Sodium 5 Mg Tablet 5 Mg PO TUFR Tylenol Extra Strength (Acetaminophen) 500 Mg Tablet 500-1,000 Mg PO Q6H PRN Temazepam 15 Mg Capsule 15-30 Mg PO HS PRN Pantoprazole Sodium 40 Mg Tablet.dr 40 Mg PO DAILY Instructions to patient/family Please see electronic discharge instructions given to patient. Clinical Quality Measures DVT/VTE Risk/Contraindication: Risk Factor Score Per Nursin RFS Level Per Nursing on Admit: 3=High SHERLY ANTONIO MD Apr 19, 2019 10:41
--- NOTE | 2019-04-22 14:00 | Physician Query Clarification ---
PQ-CHF Specificity Admission Date: Apr 14, 2019 at 21:00 Discharge Date: Apr 19, 2019 at 11:10 The medical record reflects the following clinical scenario: History/Risk Factors: Diverticulitis, Hypertension w/systolic heart failure and a>c renal insufficiency Clinical Findings: edema, BNP 315.2 Treatment: IV lasix 20 mg in addition to normal dose of Bumex Question: Can you further specify the acuity &/or type of CHF per the clinical indicators above? Please document a response in the Progress Notes or Discharge Summary. 1. Acuity: Acute, Chronic or Acute on Chronic 2. Type: Systolic, Diastolic or Systolic & Diastolic 3. Unspecified: CHF cannot be further specified regarding type or acuity 4. Other, with explanation of clinical findings 5. Clinically undetermined, no explanation for clinical findings PHYSICIAN RESPONSE Acuity: Chronic Type: Systolic Other, clinical findings Please refer to Dr Daily. Please remember a lack of response to the above will prompt a phone page by [facility]/Coding staff. In responding to this query, please exercise your independent professional judgment. The purpose of this communication is to more accurately reflect the complexity of your patients condition. The fact that a question is asked does not imply that any particular answer is desired or expected. Thank you for your timely response to this clarification. Requestors name: Arlette THIS PHYSICIAN QUERY FORM IS A PERMANENT PART OF THE MEDICAL RECORD ARLETTE PEREA Apr 22, 2019 13:59 SHERLY OLIVARES MD Apr 23, 2019 20:26 FARHAT AMADOR DO May 06, 2019 17:24 POS
--- NOTE | 2019-04-22 14:04 | Physician Query Clarification ---
PQ-Further Specificity Admission/Discharge Admission Date: Apr 14, 2019 at 21:00 Discharge Date: Apr 19, 2019 at 11:10 The medical record reflects the following clinical scenario: History/Risk Factors: Diverticulitis, Hypertension w/systolic heart failure and a>c renal insufficiency Clinical Findings: decreased urine output, BUN/CR 28/1.53 > 12/1.06 Treatment: IV fluids, monitor creatinine Question: Can you further specify acute renal insufficiency per the clinical indicators above? Please document a response in the Progress Notes or Discharge Summary. 1. Acute renal failure 2. acute renal insufficiency 3. Other, with explanation of the clinical findings. 4. Clinically undetermined, no explanation for the clinical findings. PHYSICIAN RESPONSE Can you specify per above: 2 Explanation/Clinical Findings Please refer to Dr. Daily. Please remember a lack of response to the above will prompt a phone page by CDI/Coding staff. In responding to this query, please exercise your independent professional judgment. The purpose of this communication is to more accurately reflect the complexity of your patients condition. The fact that a question is asked does not imply that any particular answer is desired or expected. Thank you for your timely response to this clarification. Requestors name: Arlette THIS PHYSICIAN QUERY FORM IS A PERMANENT PART OF THE MEDICAL RECORD ARLETTE PEREA Apr 22, 2019 14:04 SHERLY OLIVARES MD Apr 23, 2019 20:27 FARHAT AMADOR DO May 06, 2019 17:23 POS
== END 2019-04-19 11:10 | disposition home or self-care (01) | DRG 392 ==
LOC: EDUNIT# 19:16 → ER 19:18 → 4TH 21:00
PROVIDERS: ADMIT Family Medicine; ATTEND Family Medicine
DX: K57.32 Diverticulitis of large intestine without perforation or abscess without bleeding (principal); I13.0 Hypertensive heart and chronic kidney disease with heart failure and stage 1 through stage 4 chronic kidney disease, or unspecified chronic kidney disease; I50.22 Chronic systolic (congestive) heart failure; I42.9 Cardiomyopathy, unspecified; A04.72 Enterocolitis due to Clostridium difficile, not specified as recurrent; N18.9 Chronic kidney disease, unspecified; I25.10 Atherosclerotic heart disease of native coronary artery without angina pectoris; N28.9 Disorder of kidney and ureter, unspecified; I08.1 Rheumatic disorders of both mitral and tricuspid valves; I27.20 Pulmonary hypertension, unspecified; I48.0 Paroxysmal atrial fibrillation; E87.6 Hypokalemia; I49.5 Sick sinus syndrome; G47.30 Sleep apnea, unspecified; K21.9 Gastro-esophageal reflux disease without esophagitis; M54.9 Dorsalgia, unspecified; F41.9 Anxiety disorder, unspecified; F32.9 Major depressive disorder, single episode, unspecified; Z95.810 Presence of automatic (implantable) cardiac defibrillator; Z77.22 Contact with and (suspected) exposure to environmental tobacco smoke (acute) (chronic); Z23 Encounter for immunization
CPT/HCPCS: 36415; 74022; 74176; 76700; 80053; 81000; 82150; 83605; 83690; 83735; 83880; 85025; 85610; 87015; 87040; 87045; 87046; 87324; 87449; 87493; 87899; 96365; 96367; 96375; 96376

== ENCOUNTER → 2019-04-24 | Outpatient (CLI) | payer MEDICARE, OTHER ==
[~2019-04-24] MED LIST changes: +BUME1TAB8 PO; +CARV6.252 PO; +COLE1TAB PO; +LACT1CAP7 PO; +LEVO25TA5 PO; +LOSA25TA41 PO; +ONDA4TAB10 PO; +PANT40TA2 PO; +POTA8CAP20 PO; +VANCOMYCIN PO
--- NOTE | 2019-04-24 17:17 | Diagnostic Imaging Report ---
INDICATION: Routine screening. Comparison is made with prior mammograms from 04/12/2018 and 02/22/2017. 2-D and 3-D bilateral screening mammography was performed. The current study was also evaluated with a Computer Aided Detection (CAD) system. 3-D tomosynthesis was also performed and reviewed. FINDINGS: Scattered fibroglandular densities are identified bilaterally. There are bilateral benign calcifications. Pacemaker battery pack is in the left axilla. No mass or malignant-appearing microcalcifications are seen. Axillae are unremarkable. IMPRESSION: No mammographic features suspicious for malignancy are identified. ACR BI-RADS Category 2: Benign findings. Result letter will be mailed to the patient. Note: At least 10% of breast cancer is not imaged by mammography. Dictated by: Dictated on workstation # [id number]
== END ==
LOC: RAD 14:47
PROVIDERS: ATTEND Family Medicine
DX: Z12.31 Encounter for screening mammogram for malignant neoplasm of breast (principal)
CPT/HCPCS: 77067

== ENCOUNTER → 2019-10-03 | Outpatient (CLI) | payer MEDICARE, OTHER ==
[~2019-10-03] MED LIST changes: +ACHYD1T PO; -HYDR-3820 PO; -METO-387 PO; -MEXI200C PO; +NF-MEXI200 PO; +ONDA-105 PO; -ONDA4TAB10 PO; +ROPI1TAB PO; -ROPI1TAB2 PO; -SACU1TAB PO; +SACU1TAB2 PO
== END ==
LOC: LABNPT 14:31
PROVIDERS: ATTEND Family Medicine
DX: I48.20 Chronic atrial fibrillation, unspecified (principal); I11.0 Hypertensive heart disease with heart failure; I50.42 Chronic combined systolic (congestive) and diastolic (congestive) heart failure; D64.9 Anemia, unspecified

== ENCOUNTER → 2020-02-05 | Outpatient (CLI) | payer MEDICARE, OTHER ==
[~2020-02-05] MED LIST changes: -WARF2.5T PO; +WRF2.5T PO
--- NOTE | 2020-02-05 15:30 | Diagnostic Imaging Report ---
PROCEDURE: US right lower extremity venous. TECHNIQUE: Multiple real-time grayscale images were obtained over the right lower extremity in various projections. Additional spectral analysis and color Doppler duplex images were also obtained. INDICATION: Right foot pain. COMPARISON: There is no prior study available for comparison. FINDINGS: There is generally good blood flow and compressibility at all levels of the deep venous system of the right lower extremity. There is no sign of a deep venous thrombosis. IMPRESSION: There is no evidence for a deep venous thrombosis in the right lower extremity. Dictated by: Dictated on workstation # [id number]
== END ==
LOC: RAD 12:38
PROVIDERS: ATTEND Family Medicine
DX: M79.671 Pain in right foot (principal); Z86.718 Personal history of other venous thrombosis and embolism

== ENCOUNTER 2020-02-10 12:47 | Observation (INO) | payer MEDICARE, OTHER ==
[~2020-02-10] VITALS: Ht 149 cm; Wt 66.5 kg
[~2020-02-10 12:47] MED LIST changes: -ALLO100T PO; -BACI1TAB2 PO; -BIFI10.5 PO; -DIPH1TAB25 PO; -DOCU100C37 PO; -HYDR-3812 PO; -HYDR-3820 PO; -PRD20T PO
[2020-02-10 13:16] LABS: BASOPHILS % (AUTO) 0 % (0-10); EOSINOPHILS # (AUTO) 0.1 10^3/uL (0.0-0.3); EOSINOPHILS % (AUTO) 0 % (0-10); HEMATOCRIT 37 % (35-52); HEMOGLOBIN 12.2 G/DL (11.5-16.0); LYMPHOCYTES # (AUTO) 1.7 X 10^3 (1.0-4.0); LYMPHOCYTES % (AUTO) 12 % (12-44); MEAN CORPUSCULAR HEMOGLOBIN 29 PG (25-34); MEAN CORPUSCULAR HGB CONC 33 G/DL (32-36); MEAN CORPUSCULAR VOLUME 88 FL (80-99); MEAN PLATELET VOLUME 9.1 FL (7.4-10.4); MONOCYTES % (AUTO) 8 % (0-12); NEUTROPHILS % (AUTO) 80 % (42-75); PLATELET COUNT 358 10^3/uL (130-400); RED CELL DISTRIBUTION WIDTH 14.2 % (10.0-14.5); WHITE BLOOD COUNT 13.8 10^3/uL (4.3-11.0)
[2020-02-10 13:32] LABS: BILIRUBIN,URINE NEGATIVE (NEGATIVE); CLARITY,URINE CLEAR; COLOR,URINE YELLOW; GLUCOSE, URINE (UA) NEGATIVE (NEGATIVE); KETONES,URINE NEGATIVE (NEGATIVE); LEUKOCYTE ESTERASE ,URINE 1+ (NEGATIVE); NITRITE,URINE NEGATIVE (NEGATIVE); PH,URINE 5.5 (5-9); PROTEIN,URINE NEGATIVE (NEGATIVE)
[2020-02-10 13:35] LABS: BILIRUBIN,TOTAL 0.5 MG/DL (0.1-1.0); CALCIUM 8.4 MG/DL (8.5-10.1); CREATININE SERUM 1.74 MG/DL (0.60-1.30)
[2020-02-10 13:41] LABS: BACTERIA,URINE TRACE /HPF; RBC,URINE RARE /HPF; SQUAMOUS EPITHELIAL CELL,UR RARE /HPF
[2020-02-10] MEDS ORDERED: ONDANSETRON 4 MG/2 ML (SDV) Z0FRAN IVP ONE (13:45)
--- OUTSIDE RECORDS SUMMARY | 2020-02-10 13:54 | XMS REPORT | Clinical Summary ---
Author Author [facility] Organization [facility] Address Unknown Phone Unavailable Care Team Providers Care Wagon Driver Salesperson Name Role Phone Nelia Jules MD Unavailable Aubrey Ball MD PCP Jori Gallegos MD [address] Tati Alejandro RN Unavailable Unavailable Clarissa Minor CRNA Unavailable Source Comments Some departments are not documenting in the electronic medical record. If you d o not see the information that you expected, contact Release of Information in [facility] [email or web address] Information Management department at [phone] for further assistan ce in locating additional records.[facility] Allergies Comments Active Allergy Reactions Severity Noted [...] BY MOUTH DAILY BASED ON INR RESULTS Additional Information Patient taking differently: TAKE ONE-HALF TO ONE TABLET BY MOUTH DAILY BASED ON INR RESULTS, 07/10 tablet M, W, F, other days 1 tablet, Reported on 05/23/2017 10:03 AM Active furosemide (LASIX) 20 mg TAKE ONE 135 Tab 3 1 tablet TABLET BY 6 MOUTH ON EVEN DAYS AND TWO ON ODD DAYS Additional Information Patient taking differently: TAKE ONE TABLET BY MOUTH DAILY, Reported on 05/23/2017 10:03 AM Active spironolactone TAKE ONE 90 Tab 3 (ALDACTONE) 25 mg tablet TABLET BY 6 MOUTH ONCE DAILY Active mexiletine (MEXITIL) 200 1 Cap twice 180 Cap 3 0 mg capsule daily. 7 Active atorvastatin (LIPITOR) 40 Take 40 mg by 0 mg tablet mouth daily. Active metoprolol XL (TOPROL XL) Take 25 mg by 0 25 mg extended release mouth daily. tablet Active amiodarone (PACERONE) 100 Take 1 tablet 30 tablet 11 mg tablet by mouth 8 daily. Active Problems Problem Noted Date Encounter for monitoring amiodarone therapy 10/13/19 18 Cardiac device in situ 02/14/2017 Overview: LINQ Cardiac pacemaker in situ 11/22/2016 Sinus node dysfunction 11/20/2016 (HFpEF) heart failure with preserved ejection fractio n 12/22/2015 History of medical problems 05/31/2015 Overview: Her PMHx briefly includes: Persistent A FIB-Onset 03/2014 S/P AFIB RFA 07/07/14, Prior AFL S/P AFL RFA 2010 Conduction Block still present at AFIB RFA 06/2014, Symptomatic First Deg ree A-V Wenckebach Block at slow rates when on Flecainide, Longstanding Ventricular Ectopy, Normal Coronary Arteries by Dr. Hewitt 08/2013, Normal Sy stolic LV Function, Left Ventricular Diastolic Dysfunction by echo, HTN, MY S, Hyperlipidemia, and First Degree AV Block. She had a Carotid Duplex done by Dr. Hewitt 03/2014 and showed no obstructive disease. She has a [id number] score of 2--Female , HTN. Please refer to my office visit note fr om 02/01/15 for much greater detail of her Past Medical History. 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 Successful cavotricuspid ablation creating bi-directional conduc tion block. Successful subeustatian isthmus. Ablation terminating the AFL. At the conclusion of the procedure, NORMAL SINUS RHYTHM was present. Dual A VN physiology was present but likely NOT clinically significant. She was sent home off Diltiazem and had already been off Toprol and AA Tx. She had done well until she had TAYLOR ear lier this year and Dr. Hewitt had concerns that her VPDs were contributin g to her Sxs. He referred her for evaluation and she saw my partner Dr. Ge mckinnon. At her 09/03/[address] Jules, sh e stated she had developed increasing dyspnea in the last 2-[address] Hewitt, in [place], did a CARDIAC CATH 08/2013 and her Jeanna were normal. Her LVEDP was 19 mmHg. Changes in her b eta-denis and Lisinopril has been made prior to that visit by Dr. Marcelina reddy she did not tolerate well. Ultimately she stopped her Lisinopril a nd her Metoprolol was at 25 mg BID. 03/[address] Hewitt--She had recur rent AFIB. He did a TSH-reportedly normal. She was initiated on Eliquis an d referred for EP Consultation. At 04/21/14 EP Consultation, we initiat ed Flecainide 50 mg BID and discussed AFIB RFA. Her ventricular response of her AFIB wa s slow on Verapamil 180 mg. Therefore, on 04/25/14, two days prior to initiating Flecainide, she was to discontinue her Verapamil to avoid wors ening SVR and/or post-cardioversion Sinus Bradycardia. She ultimately decided to pursue AFIB R FA. 07/07/14 Successful AFIB RFA. Prior CTI Ablation for AFL still with conduction block present. She was disch arged home on Flecainide. No clear recurrent AFIB since after the first month post ablation by ELR and Holter monitoring. However she has sinus arrhythmia making interpretation of rhythm strips difficult and she is very small P and i n some leads not discernible P-waves when she is clearly in sinus rhythm. Atrial fibrillation 07/07/2014 Overview: 05/13/14: VICKIE: [facility]: EF 50% Echogenic density was noted in the left atrial appendage measuring 1.1 x 1.5 cm probably representing a thrombus. Mild mitral and tricuspid reg urgitation. Flecainide stopped. 07/06/2014 - VICKIE: No left or right atr ial thrombus. 07/07/2014 - [facility]: Persistent atrial f ibrillation status post pulmonary vein antral isolation. Normal sinus no de function. Normal atrial conduction at completion of procedure. Normal AV node function. No evidence of accessory pathway. Normal ventricular function. Normal His-Purkinje system function. 01/06/14: E cho: EF 60%. Moderate MR, Moderate TR, Normal LV size, PA pressure 40. 11/02/14: CCTA: 1. MILDLY ENLARGED LEFT ATRIUM WHICH IS SHOWN MILD INCREASE IN SIZE SINCE THE PREVIOUS STUDY. THERE IS NO LEFT ATRIAL APPENDAGE THROMBUS.2. NORMAL BILATERAL SUPERIOR A ND INFERIOR PULMONARY VEINS WITH EARLY BRANCHING OF THE RIGHT SUPERIOR, LEFT SUPERIOR AND LEFT INFERIOR PULMONARY VEINS. THERE IS NO FOCAL PULM ONARY VEIN OSTIAL STENOSIS. LIMITED CT CHEST: NO SIGNIFICANT ABNORM ALITIES IN THE VISUALIZED MEDIASTINUM AND LUNGS. 12/24/15 - Cardioversion Ventricular tachycardia 06/15/2014 Overview: 08/20/13: Cath: [facility]: EF 60% dominant circumflex system with no obstructive disease in the yolie nary system Dyspnea 08/21/2013 Last Assessment & Plan: Echo demonstrated moderate tricuspid an d mitral valve regurgitation as well as diastolic dysfunction. More likely d yspnea is secondary to diastolic dysfunction than an arrhythmia. She was started on Lasix 20 mg daily and Spironolactone 25 mg daily. Her hydroch lorothiazide was discontinued. We will reassess Chem 7 in one week. PVC's (premature ventricular contractions) 1 Last Assessment & Plan: Per Dr. Hewitt's office letter, recent t readmill and holter demonstrated frequent ventricular ectopy. Unlikely h er dyspnea is related to her ectopy given that this is not new and her EF c ontinues to be in normal range. Her potassium is low. This could be making ectopy more frequent. Her hydrochlorothiazide was discontinued an d she was started on spironolactone. Sleep apnea 06/05/2011 Overview: CPAP L ast Assessment & Plan: If she continues to have complaints of dyspnea - may need to evaluate if she is receiving adequate CPAP therapy. First degree AV block 06/05/2011 Overview: Some blocked APCs and Wenchebach on AVN meds- tolerates diltiazem and metoprolol poorly Atrial flutter 11/07/2010 Overview: SEI [id number]-KGN-4/11 CHADS2= one (HTN) Fall 2010-no flutteror AF-OK to DC Prad axa L ast Assessment & Plan: No recurrence since ablation. 48 hour h olter on 08/16/13 was negative for any atrial arrhythmias. Continues to be on daily aspirin therapy. Hyperlipidemia 09/22/2010 Last Assessment & Plan: Continues to be managed by Dr. Hewitt's office. Atypical chest pain Overview: 07/2007: [facility]: no sig nificant CAD. 20% mid circ. EF-wnl. RCA-spasm during cath. 05/18/2010: [facility] @ [facility]: No obstructive CAD, normal LV size/function. EF 60% HTN (hypertension) Last Assessment & Plan: Well controlled on current therapy. Palpitations Overview: 07/2007 - Complete echocardiogram: Ejec tion fraction 60%. Mild left ventricular hypertrophy. Trace MR. Mild TR. 30 day event monitor showed Atr ial Tach at 140-150bpm for 2-4 sec.. Toprol 25mg XL qd. 08/18/13: MPI: [facility]: EF 59%. Fair exercise tolerance. Frequent VPDs, ventricular bigeminy and ventricular couplets noted at rest and during recovery phase. Non diagnost ic ECG changes with exercise. Reversible ischemia involving the whole anterior wall and anterior apex. 01/06/14: Echo: [facility]: EF 60% bradycardia in 40's for procedure. Left atrial dilatation. Mode rate mitral regurgitation. Moderate tricuspid regurgitation. Estimated PAP [...] Brother Alive Brother Alive Brother Brother Father [place] (Age 47) Mother Social History Date Tobacco Use Types Packs/Day Years Used Never Smoker Smokeless Tobacco: Never Used Drinks/Week oz/Week Comments Alcohol Use No Sex Assigned at Date Recorded Not on file Industry Job Start Date Occupation Not on file Not on file Not on file Travel End Travel History Travel Start No recent travel history available. Last Filed Vital Signs Reading Time Taken Comments Vital Sign 120/70 11/23/2017 3:28 PM CDT Blood Pressure 70 11/23/2017 3:28 PM CDT Pulse 36.5 C (97.7 F) 12/25/2015 11:03 AM CDT Temperature - - Respiratory Rate 95% 10/23/2017 10:35 AM CDT Oxygen Saturation - - Inhaled Oxygen Concentration 65.6 kg (144 lb 11.2 oz) 11/23/2017 3:28 PM CDT Weight 149.9 cm (4' 11") 11/23/2017 3:28 PM CDT Height 29.23 11/23/2017 3:28 PM CDT Body Mass Index Plan of Treatment Health Maintenance Due Date Last Done Comments MEDICARE ANNUAL WELLNESS 1950 VISIT DTAP/TDAP VACCINES (1 - 1970 Tdap) HEPATITIS C SCREENING 1970 PHYSICAL (COMPREHENSIVE) 1970 EXAM BREAST CANCER SCREENING 1992 COLORECTAL CANCER 2002 SCREENING SHINGLES RECOMBINANT 2002 VACCINE (1 of 2) OSTEOPOROSIS 2017 SCREENING/MONITORING PNEUMONIA (PPSV23) 2017 VACCINE (1 of 1 - PPSV23) INFLUENZA VACCINE 04/08/2020 04/17/2018 Implants Device Identifier Shelf Expiration Date Model / Serial / L ot Implanted Type Area Manufactur er Pacemaker Pacemaker Results Not on filefrom Last 3 Months Insurance Type Payer Benefit Subscriber ID Effective Phone Address Plan / Dates Group Medicare MEDICARE MEDICARE xxxxxxxxxx 2016- PART A AND Present B Medicare CIGNA CIGNA xxxxxxxxxx 2016-P MEDICARE resent SUPPLEMENT [id number] Advance Directives Patient Port Cdl A Driver Explanation Type Date Recorded Advance 07/07/2014 6:19 AM Directive/DPOA Date Inactivated Comments Code Status Date Activated 12/25/2015 2:24 PM Full Code 12/23/2015 1:37 PM Provider has discussed Code Status No, more discussi on w/Patient or Family? needed 07/08/2014 11:49 AM Full Code 07/07/2014 6:32 AM Provider has discussed Code Status No, more discussi on w/Patient or Family? needed 11/09/2010 5:35 AM Full Code 11/07/2010 7:04 AM Provider has discussed Code Status Yes w/Patient or Family?
--- OUTSIDE RECORDS SUMMARY | 2020-02-10 13:54 | XMS REPORT | Encounter Summary ---
Author Author [facility] Organization [facility] Address Unknown Phone Unavailable Care Team Providers Care Associate Juvenile Court Judge Name Role Phone Nelia Jules MD Unavailable Aubrey Ball MD PCP Jori Gallegos MD [address] Tati Alejandro RN Unavailable Unavailable Clarissa Minor AUDIO NARRATOR Unavailable Reason for Visit * Reason Comments Amiodarone Monitoring Pt has transferred care Encounter Details Care Team Description Date Type Department Thiago Graham RN Amiodarone Monitoring (Pt has transferre d care ) 09/03/2019 Documentation [address] [id number] Social History Date Tobacco Use Types Packs/Day Years Used Never Smoker Smokeless Tobacco: Never Used Drinks/Week oz/Week Comments Alcohol Use No Sex Assigned at Date Recorded Not on file Industry Job Start Date Occupation Not on file Not on file Not on file Travel End Travel History Travel Start No recent travel history available. documented as of this encounter Functional Status Date [...] the patient have a cognitive impairment: No documented as of this encounter Progress Notes * Thiago Graham, RICARDO - 09/03/2019 1:01 PM BANKRUPTCY ATTORNEY Amiodarone Monitoring status as of 09/03/19: An outside provider is monitoring this patient's amiodarone. Dr. Tim Most recent lab results Lab Results Component Value Date/Time AST 21 01/03/2018 ALT 11 01/03/2018 TSH 2.92 10/01/2017 FSBWF3V 0.78 10/01/2017 Procedures Last chest X-Ray: Last PFT: Last eye exam: RUPTCY ATTORNEY documented in this encounter Plan of Treatment Not on filedocumented as of this encounter Visit Diagnoses Not on filedocumented in this encounter
--- OUTSIDE RECORDS SUMMARY | 2020-02-10 13:57 | XMS REPORT | CCD ---
Author Author Riana Escalante Organization [facility] Address [address] [place] [address] Phone Unavailable Care Team Providers Care Maritime Engineer Name Role Phone PP Unavailable CCM Unavailable Summary Purpose Interface Exchange Insurance Providers Payer name Policy type / Coverage type Covered green party ID Effective Begin Date Effective End Date WPS MEDICARE PART B [place] Medicare Part B [id number] 2017 Unknown Cigna Medicare Part B [id number] 2017 Unknown Family History Family History data not found Social History Social History Element Codes Description Effective Dates Tobacco history SNOMED CT: 559171961 Never smoker 01/30/[address]: 870114101 Never drinks alcohol 2017 Allergies, Adverse Reactions, Alerts Substance Reaction Codes Entered Date Inactivated Date Status * NO KNOWN DRUG ALLERGIES Unknown 01/30/2020 No Inactiv e Date Active SULFA(SULFONAMIDE ANTIBIOTICS) Unknown 01/30/2020 No In active Date Active * NO KNOWN ENVIRONMENTAL ALLERGIES Unknown 01/30/2018 N o Inactive Date Active * NO KNOWN FOOD ALLERGIES Unknown 01/30/2018 No Inactiv e Date Active Problems Condition Codes Effective Dates Condition Status Pain in right foot ICD-9: 729.5 ICD-10: M79.671 02/05/2020 Active Left lower quadrant pain ICD-9: 789.04 ICD-10: R10.32 03/27/2019 Active Urinary tract infection, site not specified ICD-9: 599 .0 ICD-10: N39.0 01/30/2018 Active Chronic kidney disease ICD-9: 585.9 ICD-10: N18.9 09/25/2019 Active Hypotension ICD-9: 458.9 ICD-10: I95.9 11/19/2019 Active Dizziness and giddiness ICD-9: 780.4 ICD-10: R42 11/19/2019 Active Polyuria ICD-9: 788.42 ICD-10: R35.8 11/19/2019 Active 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 ICD-9: 428.43 ICD-10: I50.43 05/06/2018 Active Encounter for general adult medical examination with a bnormal findings ICD-9: V70.0 ICD-10: Z00.01 02/26/2018 Active Essential (primary) hypertension ICD-9: 401.9 ICD-10: I10 01/30/2018 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 ICD-9: V58.6 1 ICD-10: Z79.01 01/30/2018 Active Mixed hyperlipidemia ICD-9: 272.2 ICD-10: E78.2 01/30/2018 Active Anemia, unspecified ICD-9: 285.9 ICD-10: D64.9 07/10/2018 Active 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 ICD-9: 428.42 ICD-10: I50.42 08/13/2018 Active Sigmoid diverticulitis ICD-9: 562.11 ICD-10: K57.32 08/26/2019 Active Clostridium difficile colitis ICD-9: 008.45 ICD-10: A04.72 04/23/2019 Active Edema ICD-9: 782.3 ICD-10: R60.9 04/23/2019 Active Screening mammogram, encounter for ICD-9: V76.12 ICD-10: Z12.31 04/07/2019 Active Constipation ICD-9: 564.00 ICD-10: K59.00 03/27/2019 Active Acute kidney failure, unspecified ICD-9: 584.9 ICD-10: N17.9 03/18/2019 Active Abdominal distension (gaseous) ICD-9: 787.3 ICD-10: R14.0 02/12/2019 Active Chronic atrial fibrillation ICD-9: 427.31 ICD-10: I48.2 03/26/2018 Active Other fatigue ICD-9: 780.79 ICD-10: R53.83 01/30/2018 Active Low back pain ICD-9: 724.2 ICD-10: M54.5 12/12/2018 Active Cardiac arrhythmia, unspecified ICD-9: 427.9 ICD-10: I49.9 01/30/2018 Active Localized edema ICD-9: 782.3 ICD-10: R60.0 04/17/2018 Active Generalized abdominal pain ICD-9: 789.07 ICD-10: R10.84 01/30/2018 Active Pelvic and perineal pain ICD-9: 625.9 ICD-10: R10.2 04/17/2018 Active Other forms of dyspnea ICD-9: 786.09 ICD-10: R06.09 03/26/2018 Active Other insomnia ICD-9: 327.09 ICD-10: G47.09 01/30/2018 Active Restless legs syndrome ICD-9: 333.94 ICD-10: G25.81 03/26/2018 Active Altered mental status, unspecified ICD-9: 780.97 ICD-10: R41.82 03/15/2018 Active Hematuria, unspecified ICD-9: 599.70 ICD-10: R31.9 03/15/2018 Active Functional dyspepsia ICD-9: 536.8 ICD-10: K30 02/26/2018 Active Primary insomnia ICD-9: 780.52 ICD-10: F51.01 02/26/2018 Active Hypertension Unknown 01/30/2018 Active Medications Medication Codes Instructions Start Date Stop Date Status Fill Instructions prednisone 20 mg tablet RxNorm: 150560 1 Tablet(s) Oral two arpita es a day 02/06/2020 02/09/2020 Active prednisone 20 mg tablet RxNorm: 833103 1 Tablet(s) Oral two arpita es a day 02/06/2020 02/05/2020 Inactive ondansetron 4 mg disintegrating tablet RxNorm: 787807 1 Tablet(s) Oral Q4H as needed for nausea 02/05/2020 No Stop Date Active Lomotil 2.5 mg-0.025 mg tablet RxNorm: 4409399 1 Tablet( s) Oral Every 6 hours as needed 02/05/2020 No Stop Date Active hydrocodone 5 mg-acetaminophen 325 mg tablet RxNorm: 594395 1 Tablet(s) Oral Every 6 hours as needed 02/05/2020 No Stop Date Active temazepam 15 mg capsule RxNorm: 572174 TAKE 1 TO 2 CAPS ULES BY MOUTH AT BEDTIME NEEDED FOR SLEEP 01/30/2020 01/30/2020 Inactive temazepam 15 mg capsule RxNorm: 921396 TAKE 1 TO 2 CAPS ULES BY MOUTH AT BEDTIME NEEDED FOR SLEEP 01/30/2020 01/29/2020 Inactive Augmentin 875 mg-125 mg tablet RxNorm: 762367 1 Tablet( s) Oral three times a day 01/30/2020 01/29/2020 Inactive Augmentin 875 mg-125 mg tablet RxNorm: 207377 1 Tablet( s) Oral three times a day 01/30/2020 02/05/2020 Inactive levothyroxine 25 mcg tablet RxNorm: 763686 1 Tablet(s) Oral QD 07/201904/06/2020 Active potassium chloride ER 10 mEq capsule,extended release RxNorm : 614106 TAKE ONE CAPSULE BY MOUTH TWICE A DAY OF AND TAKE ONE CAPSULE BY MOUTH DAILY ON [id number] 12/23/2019 No Stop Date Active Colace 100 mg capsule RxNorm: 2231390 1 Capsule(s) Oral three ti mes a day 11/19/2019 12/19/2019 Inactive warfarin 5 mg tablet RxNorm: 458564 1 Tablet(s) Oral MW F and 1/2 tablet (2.5mg) [facility] [place] 09/30/2019 12/29/2019 Inactive levothyroxine 25 mcg tablet RxNorm: 132603 TAKE ONE TABLET BY OUT DAILY 09/30/2019 01/06/2020 Inactive potassium chloride ER 10 mEq capsule,extended release RxNorm : 458733 1 Capsule(s) Oral two times a day on and 1 capsule Ex-Ve-Jnf-Sun 09/26/2019 09/26/2019 Inactive vancomycin 125 mg capsule RxNorm: 150735 2 Capsule(s) Oral Q8H 08/0909/05/2019 Inactive warfarin 5 mg tablet RxNorm: 246878 1 Tablet(s) Oral MW F and [facility] 08/26/2019 09/29/2019 Inactive Colace 100 mg capsule RxNorm: 2575353 1 Capsule(s) Oral QD 08/26/1911/18/2019 Inactive levothyroxine 25 mcg tablet RxNorm: 167402 1 Tablet(s) PO QD 201909/29/2019 Inactive spironolactone 25 mg tablet RxNorm: 203305 TAKE 1 TABLET BY DOUGLAS TH TWICE DAILY 06/22/2019 09/19/2019 Inactive losartan 25 mg tablet RxNorm: 469332 TAKE 1 TABLET BY M OUTH ONCE DAILY IN THE MORNING 05/26/2019 No Stop Date Active bumetanide 1 mg tablet RxNorm: 791231 TAKE 1 TABLET BY MOUTH TWICE DAILY AT 6AM AND 6PM 05/23/2019 No Stop Date Active vancomycin 125 mg capsule RxNorm: 634610 1 Capsule(s) Oral Q3D 04/1008/25/2019 Inactive pantoprazole 40 mg tablet,delayed release RxNorm: 681626 1-2 Ta blet(s) Oral QD 04/23/2019 05/23/2019 Inactive potassium chloride ER 10 mEq capsule,extended release RxNorm : 321968 1 Capsule(s) Oral QD 04/23/2019 09/25/2019 Inactive warfarin 5 mg tablet RxNorm: 654407 Tablet(s) Oral Take 1 tablet (5mg) by mouth on and Sun then 1/2 tablet (2.5mg) on Sun, Sun, , Sat and Sun 04/23/2019 08/25/2019 Inactive temazepam 15 mg capsule RxNorm: 802245 TAKE 1 TO 2 CAPS ULES BY MOUTH AT BEDTIME NEEDED FOR SLEEP 04/08/2019 09/25/2019 Inactive Cipro 250 mg tablet RxNorm: 337724 1 Tablet(s) Oral two times a day 03/27/2019 04/03/2019 Inactive metronidazole 500 mg tablet RxNorm: 187145 1 Tablet(s) Oral thr ee times a day 03/27/2019 04/03/2019 Inactive bumetanide 1 mg tablet RxNorm: 482832 1 Tablet(s) PO BID (6am a nd 6pm) 02/13/2019 05/13/2019 Inactive levothyroxine 25 mcg tablet RxNorm: 565728 1 Tablet(s) PO QD 201807/13/2019 Inactive warfarin 5 mg tablet RxNorm: 478829 1 TABLET(S) PO , SUN, , SAT AND SUN AND 1/2 TABLET ON SUN/Sun02/04/2019 02/11/2019 Inactive Kendra ent requests 90 days supply warfarin 5 mg tablet RxNorm: 007416 1 TABLET(S) PO TUES , WED, THURS, SAT AND SUN AND 1/2 TABLET ON 02/03/2019 02/03/2019 Inactive Kendra ent requests 90 days supply levothyroxine 25 mcg tablet RxNorm: 594157 1 Tablet(s) PO QD 201802/03/2019 Inactive warfarin 5 mg tablet RxNorm: 396891 1 Tablet(s) PO Tues , Wed, Thurs, Sat and Sun and 1/2 tablet on 01/31/2019 02/02/2019 Inactive temazepam 15 mg capsule RxNorm: 790080 TAKE 1 TO 2 CAPS ULES BY MOUTH AT BEDTIME NEEDED FOR SLEEP 01/31/2019 04/07/2019 Inactive cyclobenzaprine 10 mg tablet RxNorm: 368261 1 Tablet(s) PO Q8H as needed 12/30/2018 09/25/2019 Inactive losartan 25 mg tablet RxNorm: 852208 1 Tablet(s) PO QAM 12/27/2018 Inactive Lidoderm 5 % topical patch RxNorm: 9098781 1 Application TOP Q12H and then off for 12 hours 12/25/2018 01/23/2019 Inactive Lidoderm 5 % topical patch RxNorm: 0139825 1 Application TOP Q12H and then off for 12 hours 12/25/2018 12/24/2018 Inactive cyclobenzaprine 5 mg tablet RxNorm: 748240 1 Tablet(s) PO Q8H a s needed 12/12/2018 12/24/2018 Inactive spironolactone 25 mg tablet RxNorm: 353440 1 Tablet(s) PO BID 09/2006/16/2019 Inactive change in directions to BID pantoprazole 40 mg tablet,delayed release RxNorm: 462439 1 Tabl et(s) PO QD 09/20/2018 04/22/2019 Inactive Patient requests 9 0 days supply spironolactone 25 mg tablet RxNorm: 118522 1 Tablet(s) PO BID 08/2609/19/2018 Inactive change in directions to BID pantoprazole 40 mg tablet,delayed release RxNorm: 107455 1 Tabl et(s) PO QD 08/15/2018 09/19/2018 Inactive Patient requests 9 0 days supply carvedilol 6.25 mg tablet RxNorm: 236484 1 Tablet(s) PO BID 019 02/08/2019 Inactive pantoprazole 40 mg tablet,delayed release RxNorm: 570361 1 Tablet(s) PO QD 1 TABLET(S) PO BID 08/13/2018 08/15/2018 Inactive Patient reque sts 90 days supply bumetanide 1 mg tablet RxNorm: 516172 1 Tablet(s) PO BID (6am a nd 6pm) 08/13/2018 02/08/2019 Inactive bumetanide 0.5 mg tablet RxNorm: 593947 1 Tablet(s) PO QPM three days a week--Sunday, Sun, Sunday instead of 1mg dose in evening 08/13/201812/2018 Inactive levothyroxine 25 mcg tablet RxNorm: 577376 1 Tablet(s) PO QD 201801/30/2019 Inactive spironolactone 25 mg tablet RxNorm: 923874 1 Tablet(s) PO QD 201808/25/2018 Inactive losartan 25 mg tablet RxNorm: 970973 1 Tablet(s) PO QAM 08/13/2018 Inactive warfarin 5 mg tablet RxNorm: 244049 1 Tablet(s) PO QD 08/13/201808/09 Inactive pantoprazole 40 mg tablet,delayed release RxNorm: 902548 1 TABL ET(S) PO BID 08/02/2018 08/12/2018 Inactive Patient requests 9 0 days supply temazepam 15 mg capsule RxNorm: 787566 1-2 Capsule(s) P O QHS as needed for sleep 2018 01/31/2019 Inactive Restoril 15 mg capsule RxNorm: 157526 1-2 Capsule(s) PO QHS as needed for sleep 06/04/2018 08/12/2018 Inactive potassium chloride ER 10 mEq capsule,extended release RxNorm : 718709 2 CAPSULE(S) PO QD 05/07/2018 08/04/2018 Inactive Patient reque sts 90 days supply temazepam 22.5 mg capsule RxNorm: 330302 1 Capsule(s) P O QHS as needed for sleep 05/06/2018 08/12/2018 Inactive potassium chloride ER 10 mEq capsule,extended release RxNorm : 712086 2 Capsule(s) PO QD 05/06/2018 05/06/2018 Inactive ropinirole 1 mg tablet RxNorm: 285658 1 TABLET(S) PO QHS FOR RE STLESS LEGS 03/27/2018 04/25/2018 Inactive Patient requests 9 0 days supply ropinirole 1 mg tablet RxNorm: 728486 1 Tablet(s) PO QHS for re stless legs 03/26/2018 03/26/2018 Inactive cefdinir 300 mg capsule RxNorm: 432831 1 Capsule(s) PO BID 03/26/20 18 03/30/2018 Inactive temazepam 15 mg capsule RxNorm: 526529 1 Capsule(s) PO QHS as neede d 03/20/2018 03/25/2018 Inactive Lunesta 3 mg tablet RxNorm: 310979 1 Tablet(s) PO QHS as needed for sleep 03/04/2018 03/19/2018 Inactive amitriptyline 10 mg tablet RxNorm: 550299 1 Tablet(s) PO QHS fo r sleep 02/26/2018 03/03/2018 Inactive escitalopram 20 mg tablet RxNorm: 688342 1 Tablet(s) PO QHS 018 08/12/2018 Inactive pantoprazole 40 mg tablet,delayed release RxNorm: 270782 1 Tabl et(s) PO BID 02/26/2018 04/26/2018 Inactive Coumadin 2.5 mg tablet RxNorm: 661160 1 Tablet(s) PO MWF 02/18/2018 0 07/22/2018 Inactive amiodarone 200 mg tablet RxNorm: 367341 1 Tablet(s) PO QD No Start Da te Active colestipol 1 gram tablet RxNorm: 1728695 1 Tablet(s) PO BID No Start Date Active pantoprazole 40 mg tablet,delayed release RxNorm: 307105 1 Tabl et(s) PO QD No Start Date Active pantoprazole 40 mg tablet,delayed release RxNorm: 933663 1 Tabl et(s) PO QD No Start Date 02/25/2018 Inactive bumetanide 1 mg tablet RxNorm: 622646 1 Tablet(s) PO BID (6am a nd 6pm) No Start Date 08/12/2018 Inactive potassium chloride ER 10 mEq tablet,extended release RxNorm: 690704 1 Tablet(s) PO QD No Start Date 02/11/2019 Inactive levothyroxine 25 mcg tablet RxNorm: 417137 1 Tablet(s) PO QD No Sta rt Date 08/12/2018 Inactive spironolactone 25 mg tablet RxNorm: 804252 1 Tablet(s) PO QD No Sta rt Date 08/12/2018 Inactive warfarin 5 mg tablet RxNorm: 062303 1 Tablet(s) PO MWF No Start Date 08/12/2018 Inactive warfarin 5 mg tablet RxNorm: 718011 1 Tablet(s) PO Tu , Wed, Th, Sat and Sun then 1/2 tablet (2.5mg) on Mon & Fri No Start Date 08/12/2018 Inactive losartan 25 mg tablet RxNorm: 387062 1 Tablet(s) PO QAM No Start Da te 08/12/2018 Inactive carvedilol 6.25 mg tablet RxNorm: 785652 1 Tablet(s) PO BID No Star t Date 08/12/2018 Inactive warfarin 2.5 mg tablet RxNorm: 461586 1 Tablet(s) PO Tu, Thur s, Sat and Sun No Start Date 08/12/2018 Inactive Coumadin 2.5 mg tablet RxNorm: 835309 Tablet(s) Sun and Sun PO No Start Date 02/17/2018 Inactive Children's Multivitamin with Iron tablet RxNorm: 1 Table t(s) PO QD No Start Date 04/22/2019 Inactive potassium chloride ER 20 mEq tablet,extended release(p art/cryst) RxNorm: 9726098 2 Tablet(s) PO QD No Start Date 05/05/2018 Inactive Coumadin 5 mg tablet RxNorm: 675901 Tablet(s) PO No Start Date 2017 Inactive mexiletine 200 mg capsule RxNorm: 8088901 1 Capsule(s) PO BID No St art Date 03/25/2018 Inactive ferrous sulfate 325 mg (65 mg iron) tablet RxNorm: 384371 1 Tab let(s) PO QD No Start Date 07/22/2018 Inactive cyclobenzaprine 10 mg tablet RxNorm: 423799 1 Tablet(s) PO Q8H as needed No Start Date 12/29/2018 Inactive potassium chloride ER 10 mEq capsule,extended release RxNorm : 959429 2 Capsule(s) PO QD No Start Date 12/11/2018 Inactive Coumadin 5 mg tablet RxNorm: 997530 1 Tablet(s) PO , , Sat and Sun No Start Date 07/22/2018 Inactive Restoril 15 mg capsule RxNorm: 314477 1-2 Capsule(s) PO QHS as needed for sleep No Start Date 05/05/2018 Inactive metoprolol succinate ER 25 mg tablet,extended release 24 hr RxNorm: 816392 1 Tablet(s) PO QD No Start Date 08/12/2018 Inactive Entresto 24 mg-26 mg tablet RxNorm: 6850725 1 Tablet(s) PO BID No S tart Date 08/12/2018 Inactive warfarin 5 mg tablet RxNorm: 524134 1 Tablet(s) PO , Sun, , Sun and Sun and 1/2 tablet on Sun/Sun No Start Date 01/30/2019 Inactive amiodarone 200 mg tablet RxNorm: 362399 2 Tablet(s) PO BID No Start Date 10/09/2018 Inactive furosemide 20 mg tablet RxNorm: 575543 1 Tablet(s) PO QD No Start D ate 08/12/2018 Inactive amiodarone 200 mg tablet RxNorm: 944196 1 Tablet(s) PO BID No Start Date 08/26/2018 Inactive atorvastatin 40 mg tablet RxNorm: 912469 1 Tablet(s) PO QD No Start Date 08/12/2018 Inactive warfarin 5 mg tablet RxNorm: 913278 1/2 Tablet(s) PO on Sun, Sun, Sun, Sun then 1 tablet on Sun, , Sat No Start Date 04/22/2019 Inactive Medication Administered No Medication Administered data Immunizations Vaccine Codes Date Status Hepatitis A CVX: 83 11/20/2019 Pneumovax CVX: 33 05/14/2019 Hepatitis A CVX: 83 03/25/2019 Influenza CVX: 135 03/25/2019 Results Observation Observation Code Item Item Code Result Date S ervice Location UA W/MICR 22340 UA Urine Appear Normal 02/06/2018 Unk nown UA W/MICR 20393 UA Protein 3+ 02/06/2018 Unknown UA W/MICR 63387 UA Hemoglobin Trace 02/06/2018 Unkno wn UA W/MICR 45132 UA Glucose Negative 02/06/2018 Unknown UA W/MICR 22340 UA Ketones Negative 02/06/2018 Unknown UA W/MICR 09399 UA pH 5.5 02/06/2018 Unknown UA W/MICR 26143 U Spec [place] 1.025 02/06/2018 Unkn own UA W/MICR 65458 UA Bilirubin Negative 02/06/2018 Unknow n UA W/MICR 61689 UA Leuk Esteras Trace 02/06/2018 Unk nown UA W/MICR 55247 UA Nitrite NEG 02/06/2018 Unknown UA W/MICR 04892 UA WBC/hpf 11-25 02/06/2018 Unknown UA W/MICR 53843 UA RBC hpf 0-5 02/06/2018 Unknown UA W/MICR 83375 UA Hyaline Cast 16-25 02/06/2018 Unk nown UA W/MICR 65405 UA Squam Epi Few 02/06/2018 Unknow n Procedures Procedure Codes Date URINALYSIS NONAUTO W/O SCOPE CPT-4: 55721 01/30/2020 URINE CULTURE/ COLONY COUNT CPT-4: 57606 01/30/2020 URINALYSIS NONAUTO W/O SCOPE CPT-4: 28475 11/19/2019 INITIAL PREVENTIVE EXAM CPT-4: G0402 09/25/2019 URINALYSIS NONAUTO W/O SCOPE CPT-4: 22725 03/18/2019 URINE CULTURE/ COLONY COUNT CPT-4: 80709 03/18/2019 URINALYSIS NONAUTO W/O SCOPE CPT-4: 26340 12/12/2018 URINE CULTURE/ COLONY COUNT CPT-4: 33183 03/26/2018 URINALYSIS NONAUTO W/O SCOPE CPT-4: 85260 03/15/2018 INITIAL PREVENTIVE EXAM CPT-4: G0402 02/26/2018 URINALYSIS NONAUTO W/O SCOPE CPT-4: 82180 02/06/2018 URINE CULTURE/ COLONY COUNT CPT-4: 18527 02/06/2018 UA W/MICR CPT-4: 15475 02/06/2018 CUR TOBACCO NON-USER CPT-4: G8457 01/30/2018 REPAIR BLADDER & VAGINA CPT-4: 36379 01/06/2017 REPAIR OF RECTOCELE CPT-4: 49205 01/06/2017 BREAST SURGERY PROCEDURE CPT-4: 43876 Unknown [place] CHOLECYSTECTOMY/EXPLR CPT-4: 54635 Unknown HYSTERECTOMY/REVISE VAGINA CPT-4: 58808 Unknown Vital Signs Date Vital 02/05/2020 Blood Pressure 1: 114/64 Code: 8480-6 Heart Rate 1: 64 bpm Respiratory Rate: 20 bpm SpO2: 96% Temperature: 36.6 (C) / 97.8 (F) 01/30/2020 Blood Pressure 1: 126/69 Code: 8480-6 Heart Rate 1: 75 bpm Respiratory Rate: 16 bpm SpO2: 98% Temperature: 36.2 (C) / 97.1 (F) We ight: 135 lbs 11/24/2019 Blood Pressure 1: 112/64 Code: 8480-6 Heart Rate 1: 80 bpm Respiratory Rate: 20 bpm SpO2: 99% Temperature: 36.6 (C) / 97.9 (F) We ight: 139 lbs 11/19/2019 Blood Pressure 1: 126/60 Code: 8480-6 Bl ood Pressure 2: 122/70 Code: 8480-6 Heart Rate 1: 84 bpm Respiratory Rate: 20 bpm SpO2: 98% Te mperature: 36.6 (C) / 97.8 (F) Weight: 139 lbs 09/25/2019 Blood Pressure 1: 131/75 Code: 8480-6 Heart Rate 1: 88 bpm Respiratory Rate: 17 bpm SpO2: 97% Temperature: 36.2 (C) / 97.2 (F) We ight: 136 lbs 08/26/2019 Blood Pressure 1: 112/64 Code: 8480-6 Heart Rate 1: 84 bpm Respiratory Rate: 16 bpm SpO2: 95% Temperature: 36.8 (C) / 98.2 (F) We ight: 137 lbs 05/07/2019 Blood Pressure 1: 122/60 Code: 8480-6 Heart Rate 1: 72 bpm Respiratory Rate: 20 bpm SpO2: 95% Temperature: 36.9 (C) / 98.4 (F) We ight: 136 lbs 04/23/2019 Blood Pressure 1: 118/62 Code: 8480-6 Heart Rate 1: 72 bpm Respiratory Rate: 20 bpm SpO2: 96% Temperature: 36.9 (C) / 98.4 (F) We ight: 144 lbs 03/27/2019 Blood Pressure 1: 130/82 Code: 8480-6 Heart Rate 1: 82 bpm SpO2: 98% Temperature: 36.3 (C) / 97.3 (F) Weight: 139 lbs 03/18/2019 Blood Pressure 1: 122/60 Code: 8480-6 Heart Rate 1: 72 bpm Respiratory Rate: 20 bpm SpO2: 96% Temperature: 36.6 (C) / 97.9 (F) We ight: 140 lbs 02/12/2019 Blood Pressure 1: 92/56 Code: 8480-6 Heart Rate 1: 72 bpm Respiratory Rate: 20 bpm SpO2: 95% Temperature: 36.8 (C) / 98.2 (F) Weight: 134 lbs 12/25/2018 Blood Pressure 1: 104/58 Code: 8480-6 Heart Rate 1: 71 bpm Respiratory Rate: 18 bpm SpO2: 97% Temperature: 36.3 (C) / 97.4 (F) We ight: 12/12/2018 Blood Pressure 1: 120/70 Code: 8480-6 Heart Rate 1: 85 bpm Respiratory Rate: 18 bpm SpO2: 96% Temperature: 36.2 (C) / 97.2 (F) We ight: 132 lbs 10/10/2018 Blood Pressure 1: 104/66 Code: 8480-6 Heart Rate 1: 91 bpm Respiratory Rate: 18 bpm SpO2: 96% Temperature: 36.2 (C) / 97.1 (F) We ight: 130 lbs 08/27/2018 Blood Pressure 1: 104/62 Code: 8480-6 Heart Rate 1: 72 bpm Respiratory Rate: 20 bpm SpO2: 96% Temperature: 36.6 (C) / 97.8 (F) We ight: 130 lbs 08/13/2018 Blood Pressure 1: 106/58 Code: 8480-6 BMI: 26.3 Code: 51397-5 Heart Rate 1: 72 bpm Height: 4'10" Respiratory Rate: 20 bpm SpO2: 97% Tempera ture: 36.6 (C) / 97.8 (F) Weight: 128 lbs 07/10/2018 Blood Pressure 1: 122/70 Code: 8480-6 BMI: 28.6 Code: 97832-0 Heart Rate 1: 80 bpm Height: 4'10" Respiratory Rate: 20 bpm SpO2: 96% Tempera ture: 36.9 (C) / 98.4 (F) Weight: 139 lbs 05/06/2018 Blood Pressure 1: 112/54 Code: 8480-6 BMI: 27.5 Code: 91699-9 Heart Rate 1: 80 bpm Height: 4'10" Respiratory Rate: 20 bpm SpO2: 95% Tempera ture: 36.6 (C) / 97.8 (F) Weight: 134 lbs 04/17/2018 Blood Pressure 1: 150/70 Code: 8480-6 Heart Rate 1: 95 bpm Respiratory Rate: 22 bpm SpO2: 95% Temperature: 36.4 (C) / 97.5 (F) We ight: 150 lbs 03/26/2018 Blood Pressure 1: 144/90 Code: 8480-6 Heart Rate 1: 86 bpm Respiratory Rate: 22 bpm SpO2: 97% Temperature: 36.8 (C) / 98.2 (F) We ight: 145 lbs 03/15/2018 Blood Pressure 1: 146/80 Code: 8480-6 BMI: 30.0 Code: 61821-1 Heart Rate 1: 76 bpm Height: 4'10" Respiratory Rate: 20 bpm SpO2: 97% Tempera ture: 36.7 (C) / 98.1 (F) Weight: 146 lbs 02/26/2018 Blood Pressure 1: 126/80 Code: 8480-6 BMI: 29.6 Code: 57255-5 Heart Rate 1: 80 bpm Height: 4'10" Respiratory Rate: 18 bpm SpO2: 96% Tempera ture: 37.0 (C) / 98.6 (F) Weight: 144 lbs 01/30/2018 Blood Pressure 1: 120/78 Code: 8480-6 BMI: 29.6 Code: 73462-3 Heart Rate 1: 84 bpm Height: 4'10" Respiratory Rate: 20 bpm SpO2: 97% Tempera ture: 36.0 (C) / 96.8 (F) Weight: 144 lbs Functional Status No Functional Status data Reason For Visit Reason For Visit Effective Dates Notes foot pain 02/05/2020 back pain 01/30/2020 follow up 11/24/2019 dizziness 11/19/2019 Annual Checkup 09/25/2019 pt labs are scanned into chart abdominal pain 08/26/2019 follow up 05/07/2019 follow up 04/23/2019 Hospital fwup abdominal pain 03/27/2019 left lower quadrant back pain 03/18/2019 Patient is back to t aking spironolactone 25mg BID and bumex 1mg BID the last week due to weight gain follow up 02/12/2019 sciatica 12/25/2018 back pain 12/12/2018 follow up 10/10/2018 follow up 08/27/2018 Patient would like t o have updated lipid panel since has been off medication for at least 3 months follow up 08/13/2018 Patient came home on new thyroid medication but there was no mention of any issues follow up 07/10/2018 Hospital/ER fwup follow up 05/06/2018 Hospital fwup abdominal pain 04/17/2018 follow up 03/26/2018 dizziness 03/15/2018 Patient had bladder biopsy on Sunday by Dr Noonan. states she has been holding her coumadin since Sunday insomnia 02/26/2018 blood in urine 02/06/2018 ~generic 01/30/2018 Establishing Care Encounters Encounter Performer Location Codes Date ([id number]) OFFICE/OUTPATIENT VISIT EST Diagnosis: Pain in right foot[ICD10: M79.671] Bhavna DAILY [employer] CPT-4: 33682 02/05/2020 ([id number]) OFFICE/OUTPATIENT VISIT EST Diagnosis: Urinary tract infection, site not specified[ICD10: N39.0] Diagnosis: Left lower quadrant pain[ICD10: R10.32] Bhavna MCCARTHY [employer] CPT-4: 09362 01/30/2020 ([id number]) OFFICE/OUTPATIENT VISIT EST Diagnosis: Hypotension[ICD10: I95.9] Diagnosis: Chronic kidney disease[ICD10: N18.9] Jalyn DAILY [employer] CPT-4: 39354 11/24/2019 ([id number]) OFFICE/OUTPATIENT VISIT EST Diagnosis: Hypotension[ICD10: I95.9] Diagnosis: Dizziness and giddiness[ICD10: R42] Diagnosis: Polyuria[ICD10: R35.8] Jalyn Landeros [employer] CPT-4: 01294 11/19/2019 ([id number]) OFFICE/OUTPATIENT VISIT EST Diagnosis: Sigmoid diverticulitis[ICD10: K57.32] Jalyn DAILY [facility] CPT-4: 33257 08/26/2019 ([id number]) OFFICE/OUTPATIENT VISIT EST Diagnosis: Clostridium difficile colitis[ICD10: A04.72] Jalyn DAILY [facility] CPT-4: 17184 05/07/2019 ([id number]) OFFICE/OUTPATIENT VISIT EST Diagnosis: Clostridium difficile colitis[ICD10: A04.72] Diagnosis: Edema[ICD10: R60.9] Jalyn DAILY [facility] CPT-4: 43006 04/23/2019 ([id number]) OFFICE/OUTPATIENT VISIT EST Diagnosis: Constipation[ICD10: K59.00] Diagnosis: Left lower quadrant pain[ICD10: R10.32] Bhavna DAILY [facility] CPT-4: 54561 03/27/2019 ([id number]) OFFICE/OUTPATIENT VISIT EST Diagnosis: Acute kidney failure, unspecified[ICD10: N17.9] Jalyn DAILY [facility] CPT-4: 39869 03/18/2019 ([id number]) OFFICE/OUTPATIENT VISIT EST Diagnosis: Essential (primary) hypertension[ICD10: I10] Diagnosis: Chronic atrial fibrillation[ICD10: I48.2] Diagnosis: Mixed hyperlipidemia[ICD10: E78.2] Diagnosis: Other fatigue[ICD10: R53.83] Diagnosis: Abdominal distension (gaseous)[ICD10: R14.0] Jalyn DAILY [facility] CPT-4: 58103 02/12/2019 ([id number]) OFFICE/OUTPATIENT VISIT EST Diagnosis: Low back pain[ICD10: M54.5] Bhavna DOUGHERTY S. O RENDER DO [facility] CPT-4: 14814 12/25/2018 ([id number]) OFFICE/OUTPATIENT VISIT EST Diagnosis: Low back pain[ICD10: M54.5] Bhavna DOUGHERTY S. O RENDER DO [facility] CPT-4: 66898 12/12/2018 ([id number]) OFFICE/OUTPATIENT VISIT EST Diagnosis: Anemia, unspecified[ICD10: D64.9] Diagnosis: Chronic atrial fibrillation[ICD10: I48.2] Diagnosis: Other fatigue[ICD10: R53.83] Jalyn DAILY DO [facility] CPT-4: 27861 10/10/2018 ([id number]) OFFICE/OUTPATIENT VISIT EST Diagnosis: Acute on chronic combined systolic (congestive) and diastolic (congestive) heart failure[ICD10: I50.43] Diagnosis: Chronic atrial fibrillation[ICD10: I48.2] Jalyn DAILY DO [facility] CPT-4: 79162 08/27/2018 ([id number]) OFFICE/OUTPATIENT VISIT EST Diagnosis: Chronic atrial fibrillation[ICD10: I48.2] 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] Diagnosis: assisted (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[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] Jalyn DAILY DO [facility] CPT-4: 71698 08/13/2018 ([id number]) OFFICE/OUTPATIENT VISIT EST Diagnosis: Acute on chronic combined systolic (congestive) and diastolic (congestive) heart failure[ICD10: I50.43] Diagnosis: Essential (primary) hypertension[ICD10: I10] Diagnosis: Anemia, unspecified[ICD10: D64.9] Jalyn DAILY DO [facility] CPT-4: 44637 07/10/2018 ([id number]) OFFICE/OUTPATIENT VISIT EST Diagnosis: Chronic atrial fibrillation[ICD10: I48.2] Diagnosis: Acute on chronic combined systolic (congestive) and diastolic (congestive) heart failure[ICD10: I50.43] Diagnosis: Localized edema[ICD10: R60.0] Jalyn DAILY DO [facility] CPT-4: 66186 05/06/2018 ([id number]) OFFICE/OUTPATIENT VISIT EST Diagnosis: Generalized abdominal pain[ICD10: R10.84] Diagnosis: Pelvic and perineal pain[ICD10: R10.2] Diagnosis: Localized edema[ICD10: R60.0] Bhavna DAILY [employer] [facility] CPT-4: 44533 04/17/2018 ([id number]) OFFICE/OUTPATIENT VISIT EST Diagnosis: Urinary tract infection, site not specified[ICD10: N39.0] Diagnosis: Other insomnia[ICD10: G47.09] Diagnosis: Other fatigue[ICD10: R53.83] Diagnosis: Other forms of dyspnea[ICD10: R06.09] Diagnosis: Chronic atrial fibrillation[ICD10: I48.2] Diagnosis: Restless legs syndrome[ICD10: G25.81] Jalyn DAILY [employer] [facility] CPT-4: 28054 03/26/2018 ([id number]) OFFICE/OUTPATIENT VISIT EST Diagnosis: Altered mental status, unspecified[ICD10: R41.82] 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] Diagnosis: Hematuria, unspecified[ICD10: R31.9] Bhavna VALENCIA [employer] [employer] CPT-4: 38907 03/15/2018 ([id number]) NURSE/OUTPATIENT VISIT EST Diagnosis: Urinary tract infection, site not specified[ICD10: N39.0] Jalyn Leigh [employer] CPT-4: 32283 02/06/2018 OFFICE/OUTPATIENT VISIT NEW 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] Diagnosis: Essential (primary) hypertension[ICD10: I10] Diagnosis: Mixed hyperlipidemia[ICD10: E78.2] Diagnosis: Other fatigue[ICD10: R53.83] Diagnosis: Cardiac arrhythmia, unspecified[ICD10: I49.9] Diagnosis: Generalized abdominal pain[ICD10: R10.84] Diagnosis: Urinary tract infection, site not specified[ICD10: N39.0] Diagnosis: Other insomnia[ICD10: G47.09] Bhavna Leigh [employer] CPT-4: 10680 01/30/2018 Plan of Care Planned Activity Notes Codes Status Date Visit Diagnosis Plan: Pain in right foot Discussion: p atient denies any injuries and denies immediate pain but more gradual/worsening pain. ultrasound of RLE ordered stat to rule out blood clot due to patient's hx. if neg, then most likely r/t gout. patient's hydrocodone was refilled as well as her zofran that she takes when the pain is severe. ICD-9 : 729.5 ICD-10 : M79.671 02/05/2020 Appointment: Bhavna EscalanteRuben [address] [place], [place] [id number] ACUTE ILLNESS 02/05/2020 Patient Education: ondansetron- [employer] C[employer] [id number] [id number] https://www.[employer]/resources/getResource/61/[email or web address]-995u-09bq-67 Completed 02/05/2020 Visit Diagnosis Plan: Left lower quadrant pain Discuss ion: patient doesn't tolerate cipro/flagyl, allergic to bactrim, and reports pain/diarrhea with vancomycin. will do trial of augmentin tid to cover for uti vs diverticulitis. will send urine off for culture but instructed to call next week if no improvement. to ED over the weekend with worsening symptoms. ICD-9 : 789.04 ICD-10 : R10.32 01/30/2020 Appointment: Bhavna Escalante Minnie [address] [place], [place] [phone] ACUTE ILLNESS 01/30/2020 Patient Education: temazepam- [employer] C[employer]on [id number] https://www.[employer]/resources/getResource/61/05s4k205-7kxg-2s06-4m Completed 01/30/2020 Patient Education: temazepam- [employer] Coupon [id number] https://www.[employer]/resources/getResource/61/g256636g-3v23-412a-c1 Completed 01/30/2020 Visit Diagnosis Plan: Chronic kidney disease Discussio n: Cr has improved some so will continue to hydrate and repeat CMP in 1 week Will only take 2.5mg of Coumadin tonight and then resume usual dose and check PT/INR in 1 week as well ICD-9 : 585.9 ICD-10 : N18.9 11/24/2019 Visit Diagnosis Plan: Hypotension Discussion: Hold arik chavez for next week Monitor home BP readings ICD-9 : 458.9 ICD-10 : I95.9 11/24/2019 Appointment: Jalyn Daily WPtel: [address] ACUTE ILLNESS 11/24/2019 Visit Diagnosis Plan: Dizziness and giddiness Discussi on: Check lab--CBC, CMP, TSH, PT/INR now ICD-9 : 780.4 ICD-10 : R42 11/19/2019 Visit Diagnosis Plan: Hypotension Discussion: BP today is okay ICD-9 : 458.9 ICD-10 : I95.9 11/19/2019 Visit Diagnosis Plan: Polyuria Discussion: UA normal ICD-9 : 788.42 ICD-10 : R35.8 11/19/2019 Appointment: Jalyn Daily WPtel: [address] [place] [address] ACUTE ILLNESS 11/19/2019 Patient Education: Colace- [employer] Coupon [id number] https://www.[employer]/resources/getResource/61/[email or web address]-i65i-4fr7-37 Completed 11/19/2019 Visit Diagnosis Plan: Acute on chronic c ombined systolic (congestive) and diastolic (congestive) heart failure Discussion: Just did 3 days of increased lasix dose per cardiology recommendations and feeling better Low Na diet and weigh daily ICD-9 : 428.43 ICD-10 : I50.43 09/25/2019 Visit Diagnosis Plan: Essential (primary) hypertension Discussion: Stable ICD-9 : 401.9 ICD-10 : I10 09/25/2019 Visit Diagnosis Plan: Encounter for [facility] adult medical examination with abnormal findings Discussion: Mediterranean diet Combinati on of cardio and weight bearing exercise Obtain most recent lab COVID-19 precautions discussed Discussed telemedicine visits if needed during pandemic Follow Up: 3 months ICD-9 : V70.0 ICD-10 : Z00.01 09/25/2019 Appointment: Jalyn Daily WPtel: [address] [place] [address] Annual Well Visit 09/25/2019 Care Plan: [place] : [address]-1 Pending 09/22/2019 Care Plan: COMPLETE CBC W/AUTO DIFF WBC LOINC : 39781-6 Pending 09/22/2019 Appointment: Bhavna Escalante [address] [id number] [place] pt. feeling better and still had two days on her meds left. CANCELED 09/05/2019 Visit Diagnosis Plan: Sigmoid diverticulitis Discussio n: Vancomycin Soft diet Align BID Recheck 10 days unless worsening then let us know or to ER Discussed updated colonoscopy in December when due for EGD with Dr. Salmon if has no further episodes ICD-9 : 562.11 ICD-10 : K57.32 08/26/2019 Appointment: Jalyn Daily WPtel: [address] [place], [place] [id number] ACUTE ILLNESS 08/26/2019 Appointment: Jalyn Daily WPtel: [address] [place] [address] originally 4 mo follow up CANCELED 2018 Visit Diagnosis Plan: Clostridium difficile colitis Di scussion: Vancomycin daily for another week then 125mg every 3 days for 1 month then stop Fwup in September ICD-9 : 008.45 ICD-10 : A04.72 05/07/2019 Appointment: Jalyn Daily WPtel: [address] [place], [place] [phone] [place] FOLLOW UP 05/07/2019 Visit Diagnosis Plan: Clostridium difficile colitis Di scussion: Finish current Vancomycin at 125mg po QID for full 10 days then go to 125mg po BID for 1 week then one daily for 1 week Fwup 2 weeks ICD-9 : 008.45 ICD-10 : A04.72 04/23/2019 Visit Diagnosis Plan: Edema Discussion: Low Na diet Ch ramses CMP now ICD-9 : 782.3 ICD-10 : R60.9 04/23/2019 Appointment: Jalyn Daily WPtel: [address] [place] [address] Hospital Follow Up 04/23/2019 Appointment: Bhavna Escalante [address] [facility] [place] CANCELED 04/15/2019 Visit Diagnosis Plan: Left lower quadrant pain Discuss ion: will start with abdominal xray to rule out acute obstruction/constipation. if no acute findings, will treat as diverticulitis due to patient's past history. ICD-9 : 789.04 ICD-10 : R10.32 03/27/2019 Appointment: Bhavna Escalante [address] [place] [address] ACUTE ILLNESS 03/27/2019 Visit Diagnosis Plan: Acute kidney failure, unspecifie d Discussion: Was given Meloxicam at urgent care--discussed no NSAIDs, hydrate, repeat Chem 7 in 1 week ICD-9 : 584.9 ICD-10 : N17.9 03/18/2019 Appointment: Jalyn Daily WPtel: [facility] [address] ACUTE ILLNESS 03/18/2019 Visit Diagnosis Plan: Chronic atrial fibrillation Disc ussion: Following routinely with Cardiology ICD-9 : 427.31 ICD-10 : I48.2 02/12/2019 Visit Diagnosis Plan: Abdominal distension (gaseous) D iscussion: Trial of Zenpep q AC ICD-9 : 787.3 ICD-10 : R14.0 02/12/2019 Visit Diagnosis Plan: Essential (primary) hypertension Discussion: Stable ICD-9 : 401.9 ICD-10 : I10 02/12/2019 Appointment: Jalyn Daily WPtel: [address] [place] [address] FOLLOW UP 02/12/2019 Appointment: Bhavna Escalante [address] [place] [address] [place] Canceled per guillermina. sending for mri CANCELED 12/27/2018 Visit Diagnosis Plan: Low back pain Discussion: due to severity of pain, patient sent for stat ct of abd/pelvis to rule out kidney stone. will call patient with results. unable to take NSAIDS due to her medications and health hx so will hold on prescribing medication until results of ct are complete. ICD-9 : 724.2 ICD-10 : M54.5 12/25/2018 Appointment: Bhavna Escalante [address] [place] [address] ACUTE ILLNESS 12/25/2018 Visit Diagnosis Plan: Low back pain Discussion: UA gt cked to rule out kidney infection due to patient's hx and was neg on dipstick. flexeril prescribed to take as needed and discussed side effects with patient. instructed to perform R OM exercises to stretch the back muscle out. if no improvement in 2 weeks or if worsening, call clinic. ICD-9 : 724.2 ICD-10 : M54.5 12/12/2018 Appointment: Bhavna Escalante [address] [place], [place] [phone] ACUTE ILLNESS 12/12/2018 Patient Education: cyclobenzaprine- [employer] C[employer]on [id number] https://www.[employer]/resources/getResource/61/[email or web address]-g919-4c2y-w5 Completed 12/12/2018 Appointment: Bhavna Escalante [address] [place] [address] CANCELED 12/06/2018 Visit Diagnosis Plan: Other fatigue Discussion: Increa se activity--discussed 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 ICD-9 : 780.79 ICD-10 : R53.83 10/10/2018 Visit Diagnosis Plan: Anemia, unspecified Discussion: Update CBC ICD-9 : 285.9 ICD-10 : D64.9 10/10/2018 Visit Diagnosis Plan: Chronic atrial fibrillation Disc ussion: Cardiology monitoring PT/INR Follow Up: 4 months ICD-9 : 427.31 ICD-10 : I48.2 10/10/2018 Appointment: Jalyn Daily WPtel: [address] [place] [address] FOLLOW UP 10/10/2018 Visit Diagnosis Plan: Acute on chronic c ombined systolic (congestive) and diastolic (congestive) heart failure Discussion: Has decided to switch to Dr. Sprague and he recently started her back on amiodarone Start Cardiac rehab Follow Up: 5 weeks ICD-9 : 428.43 ICD-10 : I50.43 08/27/2018 Visit Diagnosis Plan: Chronic atrial fibrillation Disc ussion: Cardiology monitoring and adjusting coumadin Follow Up: As needed ICD-9 : 427.31 ICD-10 : I48.2 08/27/2018 Appointment: Jalyn Daily WPtel: [address] [place], [place] [phone] [place] FOLLOW UP 08/27/2018 Visit Diagnosis Plan: Chronic combined s ystolic (congestive) and diastolic (congestive) heart failure Discussion: Will try to decrease bumex t o 0.5mg in evening dose on M, W, F Monitor weight and notify if increasing or worsening shortness of air Follow Up: 2 weeks ICD-9 : 428.42 ICD-10 : I50.42 08/13/2018 Visit Diagnosis Plan: Chronic atrial fibrillation Disc ussion: Has fwup with Dr. 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 Discussion: Increase Coumadin to 5mg po daily and repeat PT/INR in 2 weeks ICD-9 : V58.61 ICD-10 : Z79.01 08/13/2018 Appointment: Jalyn Daily [facility]el[facility] [address] [facility] [facility] 08/13/2018 Patient Education: bumetanide- [employer] C[employer]on [phone] https://www.[employer]/resources/getResource/61/9br14p12-5mr4-6l10-iz Completed 08/13/2018 Patient Education: levothyroxine- [employer] Coupon [phone] [id number] https://www.[employer]/resources/getResource/61/5500041c-3930-4p64-tl Completed 08/13/2018 Patient Education: warfarin- [employer] Coupon [id number] https://www.[employer]/resources/getResource/61/09845169-xq91-10p0-1r Completed 08/13/2018 Patient Education: pantoprazole- [employer] Coupon [phone] https://www.[employer]/resources/getResource/61/i5593c65-94g6-98sk-4d Completed 08/13/2018 Patient Education: spironolactone- [employer] Coupon [phone] [id number] https://www.[employer]/resources/getResource/61/5jq723s2-c880-2965-yh Completed 08/13/2018 Visit Diagnosis Plan: Anemia, unspecified Discussion: Start ferrous sulfate 325mg po daily and recheck CBC in 1month ICD-9 : 285.9 ICD-10 : D64.9 07/10/2018 Visit Diagnosis Plan: Acute on chronic c ombined systolic (congestive) and diastolic (congestive) heart failure Discussion: Weigh daily 2L fluid restriction Low Na diet Sees cardiology next week Follow Up: 1 months ICD-9 : 428.43 ICD-10 : I50.43 07/10/2018 Appointment: Jalyn Daily WPtel: [address] [place], [place] [phone] [address] FOLLOW UP 07/10/2018 Visit Diagnosis Plan: Acute on chronic c ombined systolic (congestive) and diastolic (congestive) heart failure Discussion: Much improved on entresto an d lasix See cardilogy tomorrow in [facility] Discussed restarting cardiac rehab in 3 weeks Check Chem 7 Follow Up: 2 months ICD-9 : 428.43 ICD-10 : I50.43 05/06/2018 Visit Diagnosis Plan: Chronic atrial fibrillation Disc ussion: S/P new pacemaker/defibrillator ICD-9 : 427.31 ICD-10 : I48.2 05/06/2018 Appointment: Jalyn Daily WPtel[facility] [address] [facility] [facility] FOLLOW UP 05/06/2018 Visit Diagnosis Plan: Generalized abdominal pain Discu ssion: patient to sent to hospital for stat ct of abd/pelvis due to clinical s/s. ICD-9 : 789.07 ICD-10 : R10.84 04/17/2018 Visit Diagnosis Plan: Pelvic and perineal pain Discuss ion: same as other plans ICD-9 : 625.9 ICD-10 : R10.2 04/17/2018 Visit Diagnosis Plan: Localized edema Discussion: will obtain ultrasound records from dr. cole but ct abd/pelvis ordered to be completed today to rule out mass/other concerning factor causing unilateral swelling. continue with compress ion hose to left leg as well as elevation. ICD-9 : 782.3 ICD-10 : R60.0 04/17/2018 Appointment: Bhavna Escalante [address] [place], [place] [address] ACUTE ILLNESS 04/17/2018 Patient Education: Patient Medication Summary Completed 04/17/2018 Care Plan: CT ABDOMEN W/O & W/DYE LOINC : 31110-6 Pending 04/17/2018 Care Plan: CT PELVIS W/O & W/DYE LOINC : 81396-4 Pending 04/17/2018 Appointment: Jalyn Daily WPtel: [address] [place], [place] [phone] [place] CANCELED 04/10/2018 Visit Diagnosis Plan: Other forms of dyspnea Discussio n: Discussed starting pulmonary rehab vs cardiac rehab Follow Up: 1 months ICD-9 : 786.09 ICD-10 : R06.09 03/26/2018 Visit Diagnosis Plan: Urinary tract infection, site no t specified Discussion: 5 more days of omnicef ICD-9 : 599.0 ICD-10 : N39.0 03/26/2018 Visit Diagnosis Plan: Chronic atrial fibrillation Disc ussion: Sees cardiology next week ICD-9 : 427.31 ICD-10 : I48.2 03/26/2018 Visit Diagnosis Plan: Other insomnia Discussion: Wayne nue restoril at 15-30mg po q HS prn sleep ICD-9 : 327.09 ICD-10 : G47.09 03/26/2018 Visit Diagnosis Plan: Restless legs syndrome Discussio n: Trial of requip 1mg po q HS ICD-9 : 333.94 ICD-10 : G25.81 03/26/2018 Visit Diagnosis Plan: Other fatigue Discussion: Multif actoria ICD-9 : 780.79 ICD-10 : R53.83 03/26/2018 Appointment: Jalyn Daily WPtel: [address] [place], [place] [id number] ER Follow UP 03/26/2018 Patient Education: Patient Medication Summary Completed 03/26/2018 Visit Diagnosis Plan: Altered mental status, unspecifi ed Discussion: discussed with that changes in mental status could be r/t to anesthesia still trying to be excreted through her system and she may not be drinking enough fluid. states that patient drinks very minimal throughout the day. i discussed with that due to her sudden and continuous change in mental status, it would be of her best interest to go to ED to be further evaluated, especially since she's been off of her coumadin for a few days with a hx of atrial flutter. verbalized understanding and voiced he would take her now. ED was notiifed of patient's arrival as well as dr. noonan's office. ICD-9 : 780.97 ICD-10 : R41.82 03/15/2018 Visit Diagnosis Plan: Hematuria, unspecified Discussio n: urine was obtained in office but only a few drops could be removed from specimen cup which showed large amount of blood and leukocytes. culture was not able to be obtained. ICD-9 : 599.70 ICD-10 : R31.9 03/15/2018 Appointment: Bhavna Escalante [address] [place] [address] ACUTE ILLNESS 03/15/2018 Patient Education: Patient Medication Summary Completed 03/15/2018 Visit Diagnosis Plan: Primary insomnia Discussion: Tri al of elavil 10mg po q HS ICD-9 : 780.52 ICD-10 : F51.01 02/26/2018 Visit Diagnosis Plan: Functional dyspepsia Discussion: Increase protonix to 40mg po BID Follow Up: 1 months ICD-9 : 536.8 ICD-10 : K30 02/26/2018 Appointment: Jalyn Daily WPtel: [address] [place] [address] WELCOME TO MEDICARE 02/26/2018 Patient Education: Patient Medication Summary Completed 02/26/2018 Referral: Song Noonan WPtel: [address] [place] [address] [place] Referral Initiated 02/19/2018 Appointment: Jalyn Daily WPtel: [address] [place] [address] LAB 02/06/2018 Patient Education: Patient Medication Summary Completed 02/06/2018 Appointment: Jalyn Daily WPtel: [address] [place] [address] CANCELED 02/01/2018 Care Plan: US EXAM ABDOM COMPLETE liver LOINC : 16659-5 Pending 01/31/2018 Visit Diagnosis Plan: Essential (primary) hypertension Discussion: stable. patient needs to follow up within a month for annual visit. ICD-9 : 401.9 ICD-10 : I10 01/30/2018 Visit Diagnosis Plan: Other fatigue Discussion: will o rder fasting blood work to assess for any anemia or infection especially due to recent surgery and bleeding risks. 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 informed her to take tylenol or remaining hydrocodone from surgery if pain develops. ICD-9 : V58.61 ICD-10 : Z79.01 01/30/2018 Visit Diagnosis Plan: Urinary tract infection, site no t specified Discussion: will have patient perform updated urine culture. ICD-9 : 599.0 ICD-10 : N39.0 01/30/2018 Visit Diagnosis Plan: Generalized abdominal pain Discu ssion: liver ultrasound to be completed based on radiologist request from ct in hospital. patient with fatty liver and recommended ultrasound or ct of liver. will start with ultrasound. instructed patient to perform deep breathing exercises at home to prevent pneumonia and to assist with gas removal from recent surgery. instructd to walk as much as possible. ICD-9 : 789.07 ICD-10 : R10.84 01/30/2018 Visit Diagnosis Plan: Cardiac arrhythmia, unspecified Discussion: keep appt with dr. cole on feb 07. ICD-9 : 427.9 ICD-10 : I49.9 01/30/2018 Visit Diagnosis Plan: Other insomnia Discussion: instr ucted patient to take tylenol PM or melatonin OTC. will discuss efficacy at next visit. needs to follow up in one month ICD-9 : 327.09 ICD-10 : G47.09 01/30/2018 Appointment: Bhavna Escalante [address] [facility] [place] NEW PATIENT 01/30/2018 Patient Education: Patient Medication Summary Completed 01/30/2018 Instructions No Instructions Medical Equipment No Medical Equipment data Health Concerns Section Health Concerns data not found Goals Section Goals data not found Interventions Section Interventions data not found Health Status Evaluations/Outcomes Section Health Status Evaluations/Outcomes data not found Advance Directives No Advance Directive data
--- OUTSIDE RECORDS SUMMARY | 2020-02-10 13:58 | XMS REPORT | CCD ---
Author Author Riana Escalante Organization [facility] SR[facility] DAILY DO [facility] Address [address] [place] [address] Phone Unavailable Care Team Providers Care Rehab Manager Name Role Phone PP Unavailable CCM Unavailable Summary Purpose Interface Exchange Insurance Providers Payer name Policy type / Coverage type Covered democrat ID Effective Begin Date Effective End Date [place] MEDIC[place] Medicare Part B [id number] 2017 Unknown Cigna Medicare Part B [id number] 2017 Unknown Family History Family History data not found Social History Social History Element Codes Description Effective Dates Tobacco history SNOMED CT: 445271170 Never smoker 01/30/[address]: 785901609 Never drinks alcohol 2017 Allergies, Adverse Reactions, [...] hypertension ICD-9: 401.9 ICD-10: I10 01/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: 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.6 1 [...] Start Date Stop Date Status Fill Instructions ondansetron 4 mg disintegrating tablet RxNorm: 260350 1 Tablet(s) Oral Q4H as needed for nausea 02/05/2020 No Stop Date Active Lomotil 2.5 mg-0.025 mg tablet RxNorm: 3284995 1 Tablet( s) Oral Every 6 hours as needed 02/05/2020 No Stop Date Active hydrocodone 5 mg-acetaminophen 325 mg tablet RxNorm: 149607 1 Tablet(s) Oral Every 6 hours as needed 02/05/2020 No Stop Date Active temazepam 15 mg capsule RxNorm: 812401 TAKE 1 TO 2 CAPS ULES BY MOUTH AT BEDTIME NEEDED FOR SLEEP 01/30/2020 01/30/2020 Inactive Augmentin 875 mg-125 mg tablet RxNorm: 818023 1 Tablet( s) Oral three times a day 01/30/2020 02/05/2020 Inactive temazepam 15 mg capsule RxNorm: 600433 TAKE 1 TO 2 CAPS ULES BY MOUTH AT BEDTIME NEEDED FOR SLEEP 01/30/2020 01/29/2020 Inactive Augmentin 875 mg-125 mg tablet RxNorm: 257442 1 Tablet( s) Oral three times a day 01/30/2020 01/29/2020 Inactive levothyroxine 25 mcg tablet RxNorm: 951891 1 Tablet(s) Oral QD 0707/201904/06/2020 Active potassium chloride ER 10 mEq capsule,extended release RxNorm : 783469 TAKE ONE CAPSULE BY MOUTH TWICE A DAY OF AND TAKE ONE CAPSULE BY MOUTH DAILY ON [id number] 12/23/2019 No Stop Date Active Colace 100 mg capsule RxNorm: 5146087 1 Capsule(s) Oral three ti mes a day 11/19/2019 12/19/2019 Inactive warfarin 5 mg tablet RxNorm: 140052 1 Tablet(s) Oral MW F and 1/2 tablet (2.5mg[facility] [place] 09/30/2019 12/29/2019 Inactive levothyroxine 25 mcg tablet RxNorm: 281734 TAKE ONE TABLET BY M OUTH DAILY 09/30/2019 01/06/2020 Inactive potassium chloride ER 10 mEq capsule,extended release RxNorm : 433819 1 Capsule(s) Oral two times a day on and 1 capsule [id number] 09/26/2019 09/26/2019 Inactive vancomycin 125 mg capsule RxNorm: 635682 2 Capsule(s) Oral Q8H 08/0909/05/2019 Inactive warfarin 5 mg tablet RxNorm: 880485 1 Tablet(s) Oral MW F and 1/2 tablet (2.5mg) [facility] 08/26/2019 09/29/2019 Inactive Colace 100 mg capsule RxNorm: 1424820 1 Capsule(s) Oral QD 08/26/1911/18/2019 Inactive levothyroxine 25 mcg tablet RxNorm: 595819 1 Tablet(s) PO QD 201909/29/2019 Inactive spironolactone 25 mg tablet RxNorm: 681849 TAKE 1 TABLET BY DOUGLAS TWICE DAILY 06/22/2019 09/19/2019 Inactive losartan 25 mg tablet RxNorm: 565523 TAKE 1 TABLET BY M OUTH ONCE DAILY IN THE MORNING 05/26/2019 No Stop Date Active bumetanide 1 mg tablet RxNorm: 895443 TAKE 1 TABLET BY MOUTH TWICE DAILY AT 6AM AND 6PM 05/23/2019 No Stop Date Active vancomycin 125 mg capsule RxNorm: 778778 1 Capsule(s) Oral Q3D 04/1008/25/2019 Inactive pantoprazole 40 mg tablet,delayed release RxNorm: 393477 1-2 Ta blet(s) Oral QD 04/23/2019 05/23/2019 Inactive potassium chloride ER 10 mEq capsule,extended release RxNorm : 281442 1 Capsule(s) Oral QD 04/23/2019 09/25/2019 Inactive warfarin 5 mg tablet RxNorm: 329135 Tablet(s) Oral Take 1 tablet (5mg) by mouth on and Sun then 1/2 tablet (2.5mg) on Sun, Sun, Th, Sat and Sun 04/23/2019 08/25/2019 Inactive temazepam 15 mg capsule RxNorm: 748169 TAKE 1 TO 2 CAPS ULES BY MOUTH AT BEDTIME NEEDED FOR SLEEP 04/08/2019 09/25/2019 Inactive Cipro 250 mg tablet RxNorm: 655936 1 Tablet(s) Oral two times a day 03/27/2019 04/03/2019 Inactive metronidazole 500 mg tablet RxNorm: 896500 1 Tablet(s) Oral thr ee times a day 03/27/2019 04/03/2019 Inactive bumetanide 1 mg tablet RxNorm: 673845 1 Tablet(s) PO BID (6am a nd 6pm) 02/13/2019 05/13/2019 Inactive levothyroxine 25 mcg tablet RxNorm: 101480 1 Tablet(s) PO QD 201807/13/2019 Inactive warfarin 5 mg tablet RxNorm: 191042 1 TABLET(S) PO TU , WED, THURS, SAT AND SUN AND 1/2 TABLET ON 02/04/2019 02/11/2019 Inactive Kendra ent requests 90 days supply warfarin 5 mg tablet RxNorm: 029735 1 TABLET(S) PO TUES , WED, THURS, SAT AND SUN AND 1/2 TABLET ON 02/03/2019 02/03/2019 Inactive Kendra ent requests 90 days supply levothyroxine 25 mcg tablet RxNorm: 650712 1 Tablet(s) PO QD 201802/03/2019 Inactive warfarin 5 mg tablet RxNorm: 294877 1 Tablet(s) PO Tu , Sun, Th, Sat and Sun and 1/2 tablet on Sun/Sun01/31/2019 02/02/2019 Inactive temazepam 15 mg capsule RxNorm: 817663 TAKE 1 TO 2 CAPS ULES BY MOUTH AT BEDTIME NEEDED FOR SLEEP 01/31/2019 04/07/2019 Inactive cyclobenzaprine 10 mg tablet RxNorm: 941369 1 Tablet(s) PO Q8H as needed 12/30/2018 09/25/2019 Inactive losartan 25 mg tablet RxNorm: 013197 1 Tablet(s) PO QAM 12/27/2018 Inactive Lidoderm 5 % topical patch RxNorm: 4249632 1 Application TOP Q12H and then off for 12 hours 12/25/2018 01/23/2019 Inactive Lidoderm 5 % topical patch RxNorm: 9937608 1 Application TOP Q12H and then off for 12 hours 12/25/2018 12/24/2018 Inactive cyclobenzaprine 5 mg tablet RxNorm: 552861 1 Tablet(s) PO Q8H a s needed 12/12/2018 12/24/2018 Inactive spironolactone 25 mg tablet RxNorm: 677972 1 Tablet(s) PO BID 09/2006/16/2019 Inactive change in directions to BID pantoprazole 40 mg tablet,delayed release RxNorm: 850701 1 Tabl et(s) PO QD 09/20/2018 04/22/2019 Inactive Patient requests 9 0 days supply spironolactone 25 mg tablet RxNorm: 622752 1 Tablet(s) PO BID 08/2609/19/2018 Inactive change in directions to BID pantoprazole 40 mg tablet,delayed release RxNorm: 391430 1 Tabl et(s) PO QD 08/15/2018 09/19/2018 Inactive Patient requests 9 0 days supply carvedilol 6.25 mg tablet RxNorm: 028712 1 Tablet(s) PO BID 019 02/08/2019 Inactive pantoprazole 40 mg tablet,delayed release RxNorm: 379276 1 Tablet(s) PO QD 1 TABLET(S) PO BID 08/13/2018 08/15/2018 Inactive Patient reque sts 90 days supply bumetanide 1 mg tablet RxNorm: 324084 1 Tablet(s) PO BID (6am a nd 6pm) 08/13/2018 02/08/2019 Inactive bumetanide 0.5 mg tablet RxNorm: 214747 1 Tablet(s) PO QPM three days a week--Sunday, Sun, Sunday instead of 1mg dose in evening 08/13/201812/2018 Inactive levothyroxine 25 mcg tablet RxNorm: 675624 1 Tablet(s) PO QD 201801/30/2019 Inactive spironolactone 25 mg tablet RxNorm: 727798 1 Tablet(s) PO QD 201808/25/2018 Inactive losartan 25 mg tablet RxNorm: 765393 1 Tablet(s) PO QAM 08/13/2018 Inactive warfarin 5 mg tablet RxNorm: 053663 1 Tablet(s) PO QD 08/13/201808/09 Inactive pantoprazole 40 mg tablet,delayed release RxNorm: 664073 1 TABL ET(S) PO BID 08/02/2018 08/12/2018 Inactive Patient requests 9 0 days supply temazepam 15 mg capsule RxNorm: 125718 1-2 Capsule(s) P O QHS as needed for sleep 2018 01/31/2019 Inactive Restoril 15 mg capsule RxNorm: 493341 1-2 Capsule(s) PO QHS as needed for sleep 06/04/2018 08/12/2018 Inactive potassium chloride ER 10 mEq capsule,extended release RxNorm : 391795 2 CAPSULE(S) PO QD 05/07/2018 08/04/2018 Inactive Patient reque sts 90 days supply temazepam 22.5 mg capsule RxNorm: 020583 1 Capsule(s) P O QHS as needed for sleep 05/06/2018 08/12/2018 Inactive potassium chloride ER 10 mEq capsule,extended release RxNorm : 446727 2 Capsule(s) PO QD 05/06/2018 05/06/2018 Inactive ropinirole 1 mg tablet RxNorm: 066331 1 TABLET(S) PO QHS FOR RE STLESS LEGS 03/27/2018 04/25/2018 Inactive Patient requests 9 0 days supply ropinirole 1 mg tablet RxNorm: 501336 1 Tablet(s) PO QHS for re stless legs 03/26/2018 03/26/2018 Inactive cefdinir 300 mg capsule RxNorm: 388322 1 Capsule(s) PO BID 03/26/20 18 03/30/2018 Inactive temazepam 15 mg capsule RxNorm: 760726 1 Capsule(s) PO QHS as neede d 03/20/2018 03/25/2018 Inactive Lunesta 3 mg tablet RxNorm: 788454 1 Tablet(s) PO QHS as needed for sleep 03/04/2018 03/19/2018 Inactive amitriptyline 10 mg tablet RxNorm: 690870 1 Tablet(s) PO QHS fo r sleep 02/26/2018 03/03/2018 Inactive escitalopram 20 mg tablet RxNorm: 008281 1 Tablet(s) PO QHS 018 08/12/2018 Inactive pantoprazole 40 mg tablet,delayed release RxNorm: 127396 1 Tabl et(s) PO BID 02/26/2018 04/26/2018 Inactive Coumadin 2.5 mg tablet RxNorm: 725669 1 Tablet(s) PO MWF 02/18/2018 0 07/22/2018 Inactive amiodarone 200 mg tablet RxNorm: 128472 1 Tablet(s) PO QD No Start Da te Active colestipol 1 gram tablet RxNorm: 9677999 1 Tablet(s) PO BID No Start Date Active pantoprazole 40 mg tablet,delayed release RxNorm: 050708 1 Tabl et(s) PO QD No Start Date Active pantoprazole 40 mg tablet,delayed release RxNorm: 793221 1 Tabl et(s) PO QD No Start Date 02/25/2018 Inactive bumetanide 1 mg tablet RxNorm: 085281 1 Tablet(s) PO BID (6am a nd 6pm) No Start Date 08/12/2018 Inactive potassium chloride ER 10 mEq tablet,extended release RxNorm: 025863 1 Tablet(s) PO QD No Start Date 02/11/2019 Inactive levothyroxine 25 mcg tablet RxNorm: 145034 1 Tablet(s) PO QD No Sta rt Date 08/12/2018 Inactive spironolactone 25 mg tablet RxNorm: 381381 1 Tablet(s) PO QD No Sta rt Date 08/12/2018 Inactive warfarin 5 mg tablet RxNorm: 218572 1 Tablet(s) PO MWF No Start Date 08/12/2018 Inactive warfarin 5 mg tablet RxNorm: 299652 1 Tablet(s) PO Tu , Sun, , Sat and Sun then 1/2 tablet (2.5mg) on Mon & Fri No Start Date 08/12/2018 Inactive losartan 25 mg tablet RxNorm: 017814 1 Tablet(s) PO QAM No Start Da te 08/12/2018 Inactive carvedilol 6.25 mg tablet RxNorm: 393830 1 Tablet(s) PO BID No Star t Date 08/12/2018 Inactive warfarin 2.5 mg tablet RxNorm: 245010 1 Tablet(s) PO , Thur s, Sat and Sun No Start Date 08/12/2018 Inactive Coumadin 2.5 mg tablet RxNorm: 753485 Tablet(s) Mon Sun and Sun PO No Start Date 02/17/2018 Inactive Children's Multivitamin with Iron tablet RxNorm: 1 Table t(s) PO QD No Start Date 04/22/2019 Inactive potassium chloride ER 20 mEq tablet,extended release(p art/cryst) RxNorm: 1919734 2 Tablet(s) PO QD No Start Date 05/05/2018 Inactive Coumadin 5 mg tablet RxNorm: 020072 Tablet(s) PO No Start Date 2017 Inactive mexiletine 200 mg capsule RxNorm: 4219541 1 Capsule(s) PO BID No St art Date 03/25/2018 Inactive ferrous sulfate 325 mg (65 mg iron) tablet RxNorm: 265060 1 Tab let(s) PO QD No Start Date 07/22/2018 Inactive cyclobenzaprine 10 mg tablet RxNorm: 789708 1 Tablet(s) PO Q8H as needed No Start Date 12/29/2018 Inactive potassium chloride ER 10 mEq capsule,extended release RxNorm : 821384 2 Capsule(s) PO QD No Start Date 12/11/2018 Inactive Coumadin 5 mg tablet RxNorm: 454463 1 Tablet(s) PO Tues, Thurs, Sat and Sun No Start Date 07/22/2018 Inactive Restoril 15 mg capsule RxNorm: 080572 1-2 Capsule(s) PO QHS as needed for sleep No Start Date 05/05/2018 Inactive metoprolol succinate ER 25 mg tablet,extended release 24 hr RxNorm: 594250 1 Tablet(s) PO QD No Start Date 08/12/2018 Inactive Entresto 24 mg-26 mg tablet RxNorm: 7027855 1 Tablet(s) PO BID No S tart Date 08/12/2018 Inactive warfarin 5 mg tablet RxNorm: 939873 1 Tablet(s) PO , Sun, , Sun and Sun and 1/2 tablet on Sun/Sun No Start Date 01/30/2019 Inactive amiodarone 200 mg tablet RxNorm: 552772 2 Tablet(s) PO BID No Start Date 10/09/2018 Inactive furosemide 20 mg tablet RxNorm: 392873 1 Tablet(s) PO QD No Start D ate 08/12/2018 Inactive amiodarone 200 mg tablet RxNorm: 448690 1 Tablet(s) PO BID No Start Date 08/26/2018 Inactive atorvastatin 40 mg tablet RxNorm: 322912 1 Tablet(s) PO QD No Start Date 08/12/2018 Inactive warfarin 5 mg tablet RxNorm: 953434 1/2 Tablet(s) PO on Sun, Sun, Sun, Sun then 1 tablet on Sun, , Sat No Start Date 04/22/2019 Inactive Medication Administered No Medication Administered data Immunizations Vaccine Codes Date Status Hepatitis A CVX: 83 11/20/2019 Pneumovax CVX: 33 05/14/2019 Hepatitis A CVX: 83 03/25/2019 Influenza CVX: 135 03/25/2019 Results Observation Observation Code Item Item Code Result Date S ervice Location UA W/MICR 55582 UA Urine Appear Normal 02/06/2018 Unk nown UA W/MICR 60342 UA Protein 3+ 02/06/2018 Unknown UA W/MICR 30318 UA Hemoglobin Trace 02/06/2018 Unkno wn UA W/MICR 04280 UA Glucose Negative 02/06/2018 Unknown UA W/MICR 47799 UA Ketones Negative 02/06/2018 Unknown UA W/MICR 80305 UA pH 5.5 02/06/2018 Unknown UA W/MICR 15645 U Spec Okay 1.025 02/06/2018 Unkn own UA W/MICR 94168 UA Bilirubin Negative 02/06/2018 Unknow n UA W/MICR 55920 UA Leuk Esteras Trace 02/06/2018 Unk nown UA W/MICR 51872 UA Nitrite NEG 02/06/2018 Unknown UA W/MICR 83585 UA WBC/hpf 11-25 02/06/2018 Unknown UA W/MICR 76988 UA RBC hpf 0-5 02/06/2018 Unknown UA W/MICR 08221 UA Hyaline Cast 16-25 02/06/2018 Unk nown UA W/MICR 61479 UA Squam Epi Few 02/06/2018 Unknow n Procedures Procedure Codes Date URINALYSIS NONAUTO W/O SCOPE CPT-4: 08641 01/30/2020 URINE CULTURE/ COLONY COUNT CPT-4: 05615 01/30/2020 URINALYSIS NONAUTO W/O SCOPE CPT-4: 93805 11/19/2019 INITIAL PREVENTIVE EXAM CPT-4: G0402 09/25/2019 URINALYSIS NONAUTO W/O SCOPE CPT-4: 51147 03/18/2019 URINE CULTURE/ COLONY COUNT CPT-4: 82098 03/18/2019 URINALYSIS NONAUTO W/O SCOPE CPT-4: 24268 12/12/2018 URINE CULTURE/ COLONY COUNT CPT-4: 01236 03/26/2018 URINALYSIS NONAUTO W/O SCOPE CPT-4: 07444 03/15/2018 INITIAL PREVENTIVE EXAM CPT-4: G0402 02/26/2018 URINALYSIS NONAUTO W/O SCOPE CPT-4: 34440 02/06/2018 URINE CULTURE/ COLONY COUNT CPT-4: 91973 02/06/2018 UA W/MICR CPT-4: 17444 02/06/2018 CUR TOBACCO NON-USER CPT-4: G8457 01/30/2018 REPAIR BLADDER & VAGINA CPT-4: 97949 01/06/2017 REPAIR OF RECTOCELE CPT-4: 74403 01/06/2017 BREAST SURGERY PROCEDURE CPT-4: 01419 Unknown LAPARO CHOLECYSTECTOMY/EXPLR CPT-4: 76326 Unknown HYSTERECTOMY/REVISE VAGINA CPT-4: 74999 Unknown Vital Signs Date Vital 02/05/2020 Blood [...] 1: 106/58 Code: 8480-6 BMI: 26.3 Code: 24789-4 Heart Rate 1: 72 bpm Height: 4'10" Respiratory Rate: 20 bpm SpO2: 97% Tempera ture: 36.6 (C) / 97.8 (F) Weight: 128 lbs 07/10/2018 Blood Pressure 1: 122/70 Code: 8480-6 BMI: 28.6 Code: 99475-1 Heart Rate 1: 80 bpm Height: 4'10" Respiratory Rate: 20 bpm SpO2: 96% Tempera ture: 36.9 (C) / 98.4 (F) Weight: 139 lbs 05/06/2018 Blood Pressure 1: 112/54 Code: 8480-6 BMI: 27.5 Code: 60176-8 Heart Rate 1: 80 bpm Height: 4'10" [...] 1: 146/80 Code: 8480-6 BMI: 30.0 Code: 82328-5 Heart Rate 1: 76 bpm Height: 4'10" Respiratory Rate: 20 bpm SpO2: 97% Tempera ture: 36.7 (C) / 98.1 (F) Weight: 146 lbs 02/26/2018 Blood Pressure 1: 126/80 Code: 8480-6 BMI: 29.6 Code: 17935-4 Heart Rate 1: 80 bpm Height: 4'10" Respiratory Rate: 18 bpm SpO2: 96% Tempera ture: 37.0 (C) / 98.6 (F) Weight: 144 lbs 01/30/2018 Blood Pressure 1: 120/78 Code: 8480-6 BMI: 29.6 Code: 12360-7 Heart Rate 1: 84 bpm Height: 4'10" [...] Care Encounters Encounter Performer Location Codes Date ([id number]) OFFICE/OUTPATIENT VISIT EST Diagnosis: Pain in right foot[ICD10: M79.671] Bhavna DAILY [facility] CPT-4: 45395 02/05/2020 ([id number]) OFFICE/OUTPATIENT VISIT EST Diagnosis: Urinary tract infection, site not specified[ICD10: N39.0] Diagnosis: Left lower quadrant pain[ICD10: R10.32] Bhavna DAILY [facility] CPT-4: 00806 01/30/2020 ([id number]) OFFICE/OUTPATIENT VISIT EST Diagnosis: Hypotension[ICD10: I95.9] Diagnosis: Chronic kidney disease[ICD10: N18.9] Farhat DAILY [facility] CPT-4: 04496 11/24/2019 ([id number]) OFFICE/OUTPATIENT VISIT EST Diagnosis: Hypotension[ICD10: I95.9] Diagnosis: Dizziness and giddiness[ICD10: R42] Diagnosis: Polyuria[ICD10: R35.8] Farhat Landeros yavalu [facility] CPT-4: 14068 11/19/2019 ([id number]) OFFICE/OUTPATIENT VISIT EST Diagnosis: Sigmoid diverticulitis[ICD10: K57.32] Farhat DAILY yavalu [facility] CPT-4: 68241 08/26/2019 ([id number]) OFFICE/OUTPATIENT VISIT EST Diagnosis: Clostridium difficile colitis[ICD10: A04.72] Farhat DAILY [facility] CPT-4: 69012 05/07/2019 ([id number]) OFFICE/OUTPATIENT VISIT EST Diagnosis: Clostridium difficile colitis[ICD10: A04.72] Diagnosis: Edema[ICD10: R60.9] Farhat DAILY [facility] CPT-4: 08147 04/23/2019 ([id number]) OFFICE/OUTPATIENT VISIT EST Diagnosis: Constipation[ICD10: K59.00] Diagnosis: Left lower quadrant pain[ICD10: R10.32] Bhavna DAILY [facility] CPT-4: 30546 03/27/2019 ([id number]) OFFICE/OUTPATIENT VISIT EST Diagnosis: Acute kidney failure, unspecified[ICD10: N17.9] Farhat DAILY [facility] CPT-4: 59262 03/18/2019 ([id number]) OFFICE/OUTPATIENT VISIT EST Diagnosis: Essential (primary) hypertension[ICD10: I10] Diagnosis: Chronic atrial fibrillation[ICD10: I48.2] Diagnosis: Mixed hyperlipidemia[ICD10: E78.2] Diagnosis: Other fatigue[ICD10: R53.83] Diagnosis: Abdominal distension (gaseous)[ICD10: R14.0] Farhat DAILY [facility] CPT-4: 71309 02/12/2019 ([id number]) OFFICE/OUTPATIENT VISIT EST Diagnosis: Low back pain[ICD10: M54.5] Bhavna DOUGHERTY S. O RENDER [facility] CPT-4: 26087 12/25/2018 ([id number]) OFFICE/OUTPATIENT VISIT EST Diagnosis: Low back pain[ICD10: M54.5] Bhavna DOUGHERTY S. O RENDER [facility] CPT-4: 89543 12/12/2018 ([id number]) OFFICE/OUTPATIENT VISIT EST Diagnosis: Anemia, unspecified[ICD10: D64.9] Diagnosis: Chronic atrial fibrillation[ICD10: I48.2] Diagnosis: Other fatigue[ICD10: R53.83] [facility] 36997 10/10/2018 ([id number]) OFFICE/OUTPATIENT VISIT EST Diagnosis: Acute on chronic combined systolic (congestive) and diastolic (congestive) heart failure[ICD10: I50.43] Diagnosis: Chronic atrial fibrillation[ICD10: I48.2] Farhat DAILY yavalu [facility] CPT-4: 78881 08/27/2018 ([id number]) OFFICE/OUTPATIENT VISIT EST Diagnosis: Chronic atrial fibrillation[ICD10: I48.2] 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] 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] Farhat DAILY yavalu [facility] CPT-4: 23552 08/13/2018 ([id number]) OFFICE/OUTPATIENT VISIT EST Diagnosis: Acute on chronic combined systolic (congestive) and diastolic (congestive) heart failure[ICD10: I50.43] Diagnosis: Essential (primary) hypertension[ICD10: I10] Diagnosis: Anemia, unspecified[ICD10: D64.9] Farhat DAILY yavalu [facility] CPT-4: 16322 07/10/2018 ([id number]) OFFICE/OUTPATIENT VISIT EST Diagnosis: Chronic atrial fibrillation[ICD10: I48.2] Diagnosis: Acute on chronic combined systolic (congestive) and diastolic (congestive) heart failure[ICD10: I50.43] Diagnosis: Localized edema[ICD10: R60.0] Farhat DAILY yavalu [facility] CPT-4: 41791 05/06/2018 ([id number]) OFFICE/OUTPATIENT VISIT EST Diagnosis: Generalized abdominal pain[ICD10: R10.84] Diagnosis: Pelvic and perineal pain[ICD10: R10.2] Diagnosis: Localized edema[ICD10: R60.0] Bhavna DAILY yaval[facility] CPT-4: 17101 04/17/2018 ([id number]) OFFICE/OUTPATIENT VISIT EST Diagnosis: Urinary tract infection, site not specified[ICD10: N39.0] Diagnosis: Other insomnia[ICD10: G47.09] Diagnosis: Other fatigue[ICD10: R53.83] Diagnosis: Other forms of dyspnea[ICD10: R06.09] Diagnosis: Chronic atrial fibrillation[ICD10: I48.2] Diagnosis: Restless legs syndrome[ICD10: G25.81] Farhat DAILY DO [facility] CPT-4: 70052 03/26/2018 ([id number]) OFFICE/OUTPATIENT VISIT EST Diagnosis: Altered mental status, unspecified[ICD10: R41.82] 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] Diagnosis: Hematuria, unspecified[ICD10: R31.9] Bhavna DAILY DO [facility] CPT-4: 04648 03/15/2018 ([id number]) NURSE/OUTPATIENT VISIT EST Diagnosis: Urinary tract infection, site not specified[ICD10: N39.0] Farhat DAILY DO [facility] CPT-4: 78089 02/06/2018 OFFICE/OUTPATIENT VISIT NEW Diagnosis: correction (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[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] Diagnosis: Essential (primary) hypertension[ICD10: I10] Diagnosis: Mixed hyperlipidemia[ICD10: E78.2] Diagnosis: Other fatigue[ICD10: R53.83] Diagnosis: Cardiac arrhythmia, unspecified[ICD10: I49.9] Diagnosis: Generalized abdominal pain[ICD10: R10.84] Diagnosis: Urinary tract infection, site not specified[ICD10: N39.0] Diagnosis: Other insomnia[ICD10: G47.09] Bhavna DAILY DO [facility] CPT-4: 28875 01/30/2018 Plan of Care Planned Activity Notes [...] ICD-9 : 729.5 ICD-10 : M79.671 02/05/2020 Patient Education: ondansetron- [employer] Coupon [phone] [email or web address].[email or web address]/[place]/resources/getResource/61/[email or web address] Completed 02/05/2020 Visit Diagnosis Plan: Left lower [...] ICD-10 : R10.32 01/30/2020 Appointment: Bhavna Escalante [address] [place], [place] [id number] ACUTE ILLNESS 01/30/2020 Patient Education: temazepam- [employer] Coupon [phone] https://www.Intrinsity/samplemd/resources/getResource/61/[email or web address]-[email or web address] Completed 01/30/2020 Patient Education: temazepam- [employer] Coupon [phone] https://www.Intrinsity/samplemd/resources/getResource/61/t923377p-[email or web address]-c5 Completed 01/30/2020 Visit Diagnosis Plan: Chronic kidney [...] : 458.9 ICD-10 : I95.9 11/24/2019 Appointment: Farhat [facility] [phone] [facility] [facility] 11/24/2019 Visit Diagnosis Plan: Hypotension Discussion: BP today is okay ICD-9 : 458.9 ICD-10 : I95.9 11/19/2019 Visit Diagnosis Plan: Polyuria Discussion: UA normal ICD-9 : 788.42 ICD-10 : R35.8 11/19/2019 Visit Diagnosis Plan: Dizziness and giddiness Discussi on: Check lab--CBC, CMP, TSH, PT/INR now ICD-9 : 780.4 ICD-10 : R42 11/19/2019 Appointment: Farhat Daily WPtel: [phone] [facility] ACUTE ILLNESS 11/19/2019 Patient Education: Colace- [employer] Coupon [phone] https://www.[email or web address]/sampleTalent World/resources/getResource/61/[email or web address]-l70w-[email or web address] Completed 11/19/2019 Visit Diagnosis Plan: Encounter for [facility] adult medical examination with abnormal findings Discussion: Mediterranean diet Combinati on of cardio and weight bearing exercise Obtain most recent lab COVID-19 precautions discussed Discussed telemedicine visits if needed during pandemic Follow Up: 3 months ICD-9 : V70.0 ICD-10 : Z00.01 09/25/2019 Visit Diagnosis Plan: Acute on chronic c ombined systolic (congestive) and diastolic (congestive) heart failure Discussion: Just did 3 days of increased lasix dose per cardiology recommendations and feeling better Low Na diet and weigh daily ICD-9 : 428.43 ICD-10 : I50.43 09/25/2019 Visit Diagnosis Plan: Essential (primary) hypertension Discussion: Stable ICD-9 : 401.9 ICD-10 : I10 09/25/2019 Appointment: Farhat Daily [facility] [place] [facility] Visit 09/25/2019 Care Plan: COMPREH[place] METAB[place]IC [place] : 11532-4 Pending 09/22/2019 Care Plan: COMPLETE CBC W/AUTO DIFF WBC LOINC : 65464-5 Pending 09/22/2019 Appointment: Bhavna Escalante [address] [facility] US pt. feeling better and still had [...] : 562.11 ICD-10 : K57.32 08/26/2019 Appointment: Farhat Daily WPtel: [address] [place], [place] [phone] ACUTE ILLNESS 08/26/2019 Appointment: Farhat Daily WPtel: [address] [place], [place] [id number] originally 4 mo follow up CANCELED 2018 Visit Diagnosis Plan: Clostridium difficile colitis Di scussion: Vancomycin daily for another week then 125mg every 3 days for 1 month then stop Fwup in September ICD-9 : 008.45 ICD-10 : A04.72 05/07/2019 Appointment: Farhat Daily WPtel: [address] [place], [place] [phone] FOLLOW UP 05/07/2019 Visit Diagnosis Plan: Edema Discussion: Low Na diet Ch ramses CMP now ICD-9 : 782.3 ICD-10 : R60.9 04/23/2019 Visit Diagnosis Plan: Clostridium difficile colitis Di scussion: Finish current Vancomycin at 125mg po QID for full 10 days then go to 125mg po BID for 1 week then one daily for 1 week Fwup 2 weeks ICD-9 : 008.45 ICD-10 : A04.72 04/23/2019 Appointment: Farhat Daily WPtel: [address] [place], [place] [phone] Hospital Follow Up 04/23/2019 Appointment: Bhavna Escalante [address] [facility] CANCELED 04/15/2019 Visit Diagnosis Plan: Left lower quadrant pain Discuss ion: will start with abdominal xray to rule out acute obstruction/constipation. if no acute findings, will treat as diverticulitis due to patient's past history. ICD-9 : 789.04 ICD-10 : R10.32 03/27/2019 Appointment: [facility]havna [facility]alante [id number] 03/27/2019 Visit Diagnosis Plan: Acute kidney failure, unspecifie d Discussion: Was given Meloxicam at urgent care--discussed no NSAIDs, hydrate, repeat Chem 7 in 1 week ICD-9 : 584.9 ICD-10 : N17.9 03/18/2019 Appointment: Farhat Daily WPtel: [address] [place] [address] [place] ACUTE ILLNESS 03/18/2019 Visit Diagnosis Plan: Abdominal distension (gaseous) D iscussion: Trial of Zenpep q AC ICD-9 : 787.3 ICD-10 : R14.0 02/12/2019 Visit Diagnosis Plan: Essential (primary) hypertension Discussion: Stable ICD-9 : 401.9 ICD-10 : I10 02/12/2019 Visit Diagnosis Plan: Chronic atrial fibrillation Disc ussion: Following routinely with Cardiology ICD-9 : 427.31 ICD-10 : I48.2 02/12/2019 Appointment: Farhat Daily WPtel: [facility] [place] [address] [place] FOLLOW UP 02/12/2019 Appointment: Bhavna Escalante [address] [place], [place] [address]a [place] [address] [place] Canceled per guillermina. sending for mri [...] ICD-10 : M54.5 12/25/2018 Appointment: Bhavna Escalante [address] [place], [place] [address] [address] ACUTE ILLNESS 12/25/2018 Visit Diagnosis Plan: Low [...] ICD-10 : M54.5 12/12/2018 Appointment: Bhavna Escalante [address] [place] [id number] ACUTE ILLNESS 12/12/2018 Patient Education: cyclobenzaprine- [employer] Coupon [id number] https://www.[employer].Netflix/samplemd/resources/getResource/61/kx6436l5-u748-9j8a-k0 Completed 12/12/2018 Appointment: Bhavna Escalante [address] [place], [place] [id number] [place] CANCELED 12/06/2018 Visit Diagnosis Plan: Chronic atrial fibrillation Disc ussion: Cardiology monitoring PT/INR Follow Up: 4 months ICD-9 : 427.31 ICD-10 : I48.2 10/10/2018 Visit Diagnosis Plan: Anemia, unspecified Discussion: Update CBC ICD-9 : 285.9 ICD-10 : D64.9 10/10/2018 Visit Diagnosis Plan: Other fatigue Discussion: Increa se activity--discussed 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 ICD-9 : 780.79 ICD-10 : R53.83 10/10/2018 Appointment: Farhat Daily WPtel: [address] [place] [address] US FOLLOW UP 10/10/2018 Visit Diagnosis Plan: Chronic atrial fibrillation Disc ussion: Cardiology monitoring and adjusting coumadin Follow Up: As needed ICD-9 : 427.31 ICD-10 : I48.2 08/27/2018 Visit Diagnosis Plan: Acute on chronic c ombined systolic (congestive) and diastolic (congestive) heart failure Discussion: Has decided to switch to Dr. Sprague and he recently started her back on amiodarone Start Cardiac rehab Follow Up: 5 weeks ICD-9 : 428.43 ICD-10 : I50.43 08/27/2018 Appointment: Farhat Daily WPtel: [address] [place] [address] [place] FOLLOW UP 08/27/2018 Visit Diagnosis Plan: [...] ICD-10 : I48.2 08/13/2018 Visit Diagnosis Plan: correction (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 Discussion: Increase Coumadin to 5mg po daily and repeat PT/INR in 2 weeks ICD-9 : V58.61 ICD-10 : Z79.01 08/13/2018 Appointment: Farhat Daily [facility]Ptel[facility] [facility] FO[facility] 08/13/2018 Patient Education: bumetanide- [employer] Coupon [phone] https://www.Intrinsity/[employer]era/resources/getResource/61/7kh81x90-6tp3-4n13-hb Completed 08/13/2018 Patient Education: levothyroxine- [employer] Coupon [id number] https://www.Intrinsity/[employer]era/resources/getResource/61/3989090z-3754-4a03-ki Completed 08/13/2018 Patient Education: warfarin- [employer] Coupon [id number] https://www.Intrinsity/[employer]era/resources/getResource/61/90050992-nl83-84q6-1m Completed 08/13/2018 Patient Education: pantoprazole- Optimize[employer] Coupon [phone] https://www.Intrinsity/Calera/resources/getResource/61/i5767e09-45a0-90af-7y Completed 08/13/2018 Patient Education: spironolactone- [employer] Coupon 5 [id number] https://www.Intrinsity/Calera/resources/getResource/61/0tq494o8-a065-3370-th Completed 08/13/2018 Visit Diagnosis Plan: Anemia, unspecified [...] : 428.43 ICD-10 : I50.43 07/10/2018 Appointment: Farhat Daily WPtel: [address] [place], [place] [phone] 2nd LM FOLLOW UP 07/10/2018 Visit Diagnosis Plan: Acute on chronic c ombined systolic (congestive) and diastolic (congestive) heart failure Discussion: Much improved on entresto an d lasix See cardilogy tomorrow in fwup Discussed restarting cardiac rehab in 3 weeks Check Chem 7 Follow Up: 2 months ICD-9 : 428.43 ICD-10 : I50.43 05/06/2018 Visit Diagnosis Plan: Chronic atrial fibrillation Disc ussion: S/P new pacemaker/defibrillator ICD-9 : 427.31 ICD-10 : I48.2 05/06/2018 Appointment: Farhat Daily WPtel: [facility] FOLLOW UP 05/06/2018 Visit Diagnosis Plan: Generalized abdominal pain Discu ssion: patient to sent to hospital for stat ct of abd/pelvis due to clinical s/s. ICD-9 : 789.07 ICD-10 : R10.84 04/17/2018 Visit Diagnosis Plan: Localized edema Discussion: will obtain ultrasound records from dr. cole but ct abd/pelvis ordered to be completed today to rule out mass/other concerning factor causing unilateral swelling. continue with compress ion hose to left leg as well as elevation. ICD-9 : 782.3 ICD-10 : R60.0 04/17/2018 Visit Diagnosis Plan: Pelvic and perineal pain Discuss ion: same as other plans ICD-9 : 625.9 ICD-10 : R10.2 04/17/2018 Appointment: Bhavna Escalante [address] [place] [address] ACUTE ILLNESS 04/17/2018 Patient Education: Patient Medication Summary Completed 04/17/2018 Care Plan: CT ABDOMEN W/O & W/DYE LOINC : 06107-5 Pending 04/17/2018 Care Plan: CT PELVIS W/O & W/DYE LOINC : 01136-6 Pending 04/17/2018 Appointment: Farhat Daily [facility]Ptel[phone] [facility] [place] CANCELED 04/10/2018 Visit Diagnosis Plan: Urinary tract infection, site no t specified Discussion: 5 more days of omnicef ICD-9 : 599.0 ICD-10 : N39.0 03/26/2018 Visit Diagnosis Plan: Chronic atrial fibrillation Disc ussion: Sees cardiology next week ICD-9 : 427.31 ICD-10 : I48.2 03/26/2018 Visit Diagnosis Plan: Restless legs syndrome Discussio n: Trial of requip 1mg po q HS ICD-9 : 333.94 ICD-10 : G25.81 03/26/2018 Visit Diagnosis Plan: Other fatigue Discussion: Multif actoria ICD-9 : 780.79 ICD-10 : R53.83 03/26/2018 Visit Diagnosis Plan: Other forms of dyspnea Discussio n: Discussed starting pulmonary rehab vs cardiac rehab Follow Up: 1 months ICD-9 : 786.09 ICD-10 : R06.09 03/26/2018 Visit Diagnosis Plan: Other insomnia Discussion: Wayne nue restoril at 15-30mg po q HS prn sleep ICD-9 : 327.09 ICD-10 : G47.09 03/26/2018 Appointment: Farhat Daily [facility]Ptel[facility] [facility] [facility] Follow UP 03/26/2018 Patient Education: Patient Medication Summary Completed 03/26/2018 Visit Diagnosis Plan: Hematuria, unspecified Discussio n: urine was obtained in office but only a few drops could be removed from specimen cup which showed large amount of blood and leukocytes. culture was not able to be obtained. ICD-9 : 599.70 ICD-10 : R31.9 03/15/2018 Visit Diagnosis Plan: Altered mental status, unspecifi [...] ICD-9 : 780.97 ICD-10 : R41.82 03/15/2018 Appointment: Bhavna Escalante [address] [place] [address] ACUTE ILLNESS 03/15/2018 Patient Education: Patient Medication Summary Completed 03/15/2018 Visit Diagnosis Plan: Primary insomnia Discussion: Tri al of elavil 10mg po q HS ICD-9 : 780.52 ICD-10 : F51.01 02/26/2018 Visit Diagnosis Plan: Functional dyspepsia Discussion: Increase protonix to 40mg po BID Follow Up: 1 months ICD-9 : 536.8 ICD-10 : K30 02/26/2018 Appointment: Farhat Daily WPtel: [address] [place] [address] WELCOME TO MEDICARE 02/26/2018 Patient Education: Patient Medication Summary Completed 02/26/2018 Referral: Song Noonan WPtel: [address] [place] [address] [place] Referral Initiated 02/19/2018 Appointment: Farhat Daily WPtel: [address] [place] [address] US LAB 02/06/2018 Patient Education: Patient Medication Summary Completed 02/06/2018 Appointment: Farhat Daily WPtel: [address] [place] [address] US CANCELED 02/01/2018 Care Plan: US EXAM ABDOM COMPLETE liver LOINC : 95513-8 Pending 01/31/2018 Visit Diagnosis Plan: Other fatigue Discussion: will o rder fasting blood work to assess for any anemia or infection especially due to recent surgery and bleeding risks. ICD-9 : 780.79 ICD-10 : R53.83 01/30/2018 Visit Diagnosis Plan: Cardiac arrhythmia, unspecified Discussion: keep appt with dr. cole on feb 07. ICD-9 : 427.9 ICD-10 : I49.9 01/30/2018 Visit Diagnosis Plan: Other insomnia Discussion: instr ucted patient to take tylenol PM or melatonin OTC. will discuss efficacy at next visit. needs to follow up in one month ICD-9 : 327.09 ICD-10 : G47.09 01/30/2018 Visit Diagnosis Plan: Urinary tract infection, [...] ICD-10 : R10.84 01/30/2018 Visit Diagnosis Plan: Essential (primary) hypertension Discussion: stable. patient needs to follow up within a month for annual visit. 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 informed her to take tylenol or remaining hydrocodone from surgery if pain develops. ICD-9 : V58.61 ICD-10 : Z79.01 01/30/2018 Appointment: Bhavna Escalante [address] [place] [address] NEW PATIENT 01/30/2018 Patient Education: Patient Medication Summary Completed 01/30/2018 Instructions No Instructions Medical Equipment No Medical Equipment data Health Concerns Section Health Concerns data not found Goals Section Goals data not found Interventions Section Interventions data not found Health Status Evaluations/Outcomes Section Health Status Evaluations/Outcomes data not found Advance Directives No Advance Directive data
--- OUTSIDE RECORDS SUMMARY | 2020-02-10 13:58 | XMS REPORT | CCD ---
Author Author Riana Escalante Organization [facility] SRuben DAILY DO [facility] Address [address] [place] [address] Phone Unavailable Care Team Providers Care Barrel Cooper Name Role Phone PP Unavailable CCM Unavailable Summary Purpose Interface Exchange Insurance Providers Payer name Policy type / Coverage type Covered green party ID Effective Begin Date Effective End Date WPS MEDICARE PART B [place] Medicare Part B [id number] 2017 Unknown Cigna Medicare Part B [id number] 2017 Unknown Family History Family History data not found Social History Social History Element Codes Description Effective Dates Tobacco history SNOMED CT: 000321371 Never smoker 01/30/[address]: 034039446 Never drinks alcohol 2017 Allergies, Adverse Reactions, [...] hypertension ICD-9: 401.9 ICD-10: I10 01/30/2018 Active termination clerk (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 ICD-9: V58.6 1 [...] Instructions ondansetron 4 mg disintegrating tablet RxNorm: 425441 1 Tablet(s) Oral Q4H as needed for nausea 02/05/2020 No Stop Date Active Lomotil 2.5 mg-0.025 mg tablet RxNorm: 8613028 1 Tablet( s) Oral Every 6 hours as needed 02/05/2020 No Stop Date Active hydrocodone 5 mg-acetaminophen 325 mg tablet RxNorm: 048470 1 Tablet(s) Oral Every 6 hours as needed 02/05/2020 No Stop Date Active temazepam 15 mg capsule RxNorm: 459368 TAKE 1 TO 2 CAPS ULES BY MOUTH AT BEDTIME NEEDED FOR SLEEP 01/30/2020 01/30/2020 Inactive Augmentin 875 mg-125 mg tablet RxNorm: 068127 1 Tablet( s) Oral three times a day 01/30/2020 02/05/2020 Inactive temazepam 15 mg capsule RxNorm: 161080 TAKE 1 TO 2 CAPS ULES BY MOUTH AT BEDTIME NEEDED FOR SLEEP 01/30/2020 01/29/2020 Inactive Augmentin 875 mg-125 mg tablet RxNorm: 465119 1 Tablet( s) Oral three times a day 01/30/2020 01/29/2020 Inactive levothyroxine 25 mcg tablet RxNorm: 792999 1 Tablet(s) Oral QD 0707/201904/06/2020 Active potassium chloride ER 10 mEq capsule,extended release RxNorm : 951410 TAKE ONE CAPSULE BY MOUTH TWICE A DAY OF AND TAKE ONE CAPSULE BY MOUTH DAILY ON [id number] 12/23/2019 No Stop Date Active Colace 100 mg capsule RxNorm: 1940977 1 Capsule(s) Oral three ti mes a day 11/19/2019 12/19/2019 Inactive warfarin 5 mg tablet RxNorm: 108437 1 Tablet(s) Oral MW F and 1/2 tablet (2.5mg) Rust kristie [facility] [place] 09/30/2019 12/29/2019 Inactive levothyroxine 25 mcg tablet RxNorm: 641489 TAKE ONE TABLET BY M OUTH DAILY 09/30/2019 01/06/2020 Inactive potassium chloride ER 10 mEq capsule,extended release RxNorm : 150565 1 Capsule(s) Oral two times a day on and 1 capsule Ib-Ip-Nhj-Sun 09/26/2019 09/26/2019 Inactive vancomycin 125 mg capsule RxNorm: 088249 2 Capsule(s) Oral Q8H 08/0909/05/2019 Inactive warfarin 5 mg tablet RxNorm: 577349 1 Tablet(s) Oral MW F and 1/2 tablet (2.5mg) Rust kristie [facility] 08/26/2019 09/29/2019 Inactive Colace 100 mg capsule RxNorm: 3649507 1 Capsule(s) Oral QD 08/26/1911/18/2019 Inactive levothyroxine 25 mcg tablet RxNorm: 492265 1 Tablet(s) PO QD 201909/29/2019 Inactive spironolactone 25 mg tablet RxNorm: 104000 TAKE 1 TABLET BY DOUGLAS TWICE DAILY 06/22/2019 09/19/2019 Inactive losartan 25 mg tablet RxNorm: 524188 TAKE 1 TABLET BY M OUTH ONCE DAILY IN THE MORNING 05/26/2019 No Stop Date Active bumetanide 1 mg tablet RxNorm: 522826 TAKE 1 TABLET BY MOUTH TWICE DAILY AT 6AM AND 6PM 05/23/2019 No Stop Date Active vancomycin 125 mg capsule RxNorm: 818826 1 Capsule(s) Oral Q3D 04/1008/25/2019 Inactive pantoprazole 40 mg tablet,delayed release RxNorm: 103079 1-2 Ta blet(s) Oral QD 04/23/2019 05/23/2019 Inactive potassium chloride ER 10 mEq capsule,extended release RxNorm : 142542 1 Capsule(s) Oral QD 04/23/2019 09/25/2019 Inactive warfarin 5 mg tablet RxNorm: 327805 Tablet(s) Oral Take 1 tablet (5mg) by mouth on and Sun then 1/2 tablet (2.5mg) on Sun, Sun, Th, Sat and Sun 04/23/2019 08/25/2019 Inactive temazepam 15 mg capsule RxNorm: 025433 TAKE 1 TO 2 CAPS ULES BY MOUTH AT BEDTIME NEEDED FOR SLEEP 04/08/2019 09/25/2019 Inactive Cipro 250 mg tablet RxNorm: 006535 1 Tablet(s) Oral two times a day 03/27/2019 04/03/2019 Inactive metronidazole 500 mg tablet RxNorm: 777199 1 Tablet(s) Oral thr ee times a day 03/27/2019 04/03/2019 Inactive bumetanide 1 mg tablet RxNorm: 247569 1 Tablet(s) PO BID (6am a nd 6pm) 02/13/2019 05/13/2019 Inactive levothyroxine 25 mcg tablet RxNorm: 419154 1 Tablet(s) PO QD 201807/13/2019 Inactive warfarin 5 mg tablet RxNorm: 134832 1 TABLET(S) PO TU , WED, THURS, SAT AND SUN AND 1/2 TABLET ON 02/04/2019 02/11/2019 Inactive Kendra ent requests 90 days supply warfarin 5 mg tablet RxNorm: 745933 1 TABLET(S) PO TUES , WED, THURS, SAT AND SUN AND 1/2 TABLET ON 02/03/2019 02/03/2019 Inactive Kendra ent requests 90 days supply levothyroxine 25 mcg tablet RxNorm: 923614 1 Tablet(s) PO QD 201802/03/2019 Inactive warfarin 5 mg tablet RxNorm: 747520 1 Tablet(s) PO Tu , Sun, Th, Sat and Sun and 1/2 tablet on Sun/Sun01/31/2019 02/02/2019 Inactive temazepam 15 mg capsule RxNorm: 036096 TAKE 1 TO 2 CAPS ULES BY MOUTH AT BEDTIME NEEDED FOR SLEEP 01/31/2019 04/07/2019 Inactive cyclobenzaprine 10 mg tablet RxNorm: 886322 1 Tablet(s) PO Q8H as needed 12/30/2018 09/25/2019 Inactive losartan 25 mg tablet RxNorm: 663415 1 Tablet(s) PO QAM 12/27/2018 Inactive Lidoderm 5 % topical patch RxNorm: 3315664 1 Application TOP Q12H and then off for 12 hours 12/25/2018 01/23/2019 Inactive Lidoderm 5 % topical patch RxNorm: 2940640 1 Application TOP Q12H and then off for 12 hours 12/25/2018 12/24/2018 Inactive cyclobenzaprine 5 mg tablet RxNorm: 701714 1 Tablet(s) PO Q8H a s needed 12/12/2018 12/24/2018 Inactive spironolactone 25 mg tablet RxNorm: 485209 1 Tablet(s) PO BID 09/2006/16/2019 Inactive change in directions to BID pantoprazole 40 mg tablet,delayed release RxNorm: 273687 1 Tabl et(s) PO QD 09/20/2018 04/22/2019 Inactive Patient requests 9 0 days supply spironolactone 25 mg tablet RxNorm: 992372 1 Tablet(s) PO BID 08/2609/19/2018 Inactive change in directions to BID pantoprazole 40 mg tablet,delayed release RxNorm: 393271 1 Tabl et(s) PO QD 08/15/2018 09/19/2018 Inactive Patient requests 9 0 days supply carvedilol 6.25 mg tablet RxNorm: 054519 1 Tablet(s) PO BID 019 02/08/2019 Inactive pantoprazole 40 mg tablet,delayed release RxNorm: 892178 1 Tablet(s) PO QD 1 TABLET(S) PO BID 08/13/2018 08/15/2018 Inactive Patient reque sts 90 days supply bumetanide 1 mg tablet RxNorm: 926922 1 Tablet(s) PO BID (6am a nd 6pm) 08/13/2018 02/08/2019 Inactive bumetanide 0.5 mg tablet RxNorm: 744890 1 Tablet(s) PO QPM three days a week--Sunday, Sun, Sunday instead of 1mg dose in evening 08/13/201812/2018 Inactive levothyroxine 25 mcg tablet RxNorm: 298802 1 Tablet(s) PO QD 201801/30/2019 Inactive spironolactone 25 mg tablet RxNorm: 668761 1 Tablet(s) PO QD 201808/25/2018 Inactive losartan 25 mg tablet RxNorm: 504839 1 Tablet(s) PO QAM 08/13/2018 Inactive warfarin 5 mg tablet RxNorm: 438301 1 Tablet(s) PO QD 08/13/201808/09 Inactive pantoprazole 40 mg tablet,delayed release RxNorm: 249634 1 TABL ET(S) PO BID 08/02/2018 08/12/2018 Inactive Patient requests 9 0 days supply temazepam 15 mg capsule RxNorm: 518302 1-2 Capsule(s) P O QHS as needed for sleep 2018 01/31/2019 Inactive Restoril 15 mg capsule RxNorm: 378653 1-2 Capsule(s) PO QHS as needed for sleep 06/04/2018 08/12/2018 Inactive potassium chloride ER 10 mEq capsule,extended release RxNorm : 386830 2 CAPSULE(S) PO QD 05/07/2018 08/04/2018 Inactive Patient reque sts 90 days supply temazepam 22.5 mg capsule RxNorm: 421057 1 Capsule(s) P O QHS as needed for sleep 05/06/2018 08/12/2018 Inactive potassium chloride ER 10 mEq capsule,extended release RxNorm : 328921 2 Capsule(s) PO QD 05/06/2018 05/06/2018 Inactive ropinirole 1 mg tablet RxNorm: 921026 1 TABLET(S) PO QHS FOR RE STLESS LEGS 03/27/2018 04/25/2018 Inactive Patient requests 9 0 days supply ropinirole 1 mg tablet RxNorm: 587284 1 Tablet(s) PO QHS for re stless legs 03/26/2018 03/26/2018 Inactive cefdinir 300 mg capsule RxNorm: 500271 1 Capsule(s) PO BID 03/26/20 18 03/30/2018 Inactive temazepam 15 mg capsule RxNorm: 157562 1 Capsule(s) PO QHS as neede d 03/20/2018 03/25/2018 Inactive Lunesta 3 mg tablet RxNorm: 966292 1 Tablet(s) PO QHS as needed for sleep 03/04/2018 03/19/2018 Inactive amitriptyline 10 mg tablet RxNorm: 095789 1 Tablet(s) PO QHS fo r sleep 02/26/2018 03/03/2018 Inactive escitalopram 20 mg tablet RxNorm: 974828 1 Tablet(s) PO QHS 018 08/12/2018 Inactive pantoprazole 40 mg tablet,delayed release RxNorm: 483307 1 Tabl et(s) PO BID 02/26/2018 04/26/2018 Inactive Coumadin 2.5 mg tablet RxNorm: 193343 1 Tablet(s) PO MWF 02/18/2018 0 07/22/2018 Inactive amiodarone 200 mg tablet RxNorm: 205983 1 Tablet(s) PO QD No Start Da te Active colestipol 1 gram tablet RxNorm: 3337522 1 Tablet(s) PO BID No Start Date Active pantoprazole 40 mg tablet,delayed release RxNorm: 816370 1 Tabl et(s) PO QD No Start Date Active pantoprazole 40 mg tablet,delayed release RxNorm: 044070 1 Tabl et(s) PO QD No Start Date 02/25/2018 Inactive bumetanide 1 mg tablet RxNorm: 392590 1 Tablet(s) PO BID (6am a nd 6pm) No Start Date 08/12/2018 Inactive potassium chloride ER 10 mEq tablet,extended release RxNorm: 147745 1 Tablet(s) PO QD No Start Date 02/11/2019 Inactive levothyroxine 25 mcg tablet RxNorm: 085883 1 Tablet(s) PO QD No Sta rt Date 08/12/2018 Inactive spironolactone 25 mg tablet RxNorm: 865490 1 Tablet(s) PO QD No Sta rt Date 08/12/2018 Inactive warfarin 5 mg tablet RxNorm: 749041 1 Tablet(s) PO MWF No Start Date 08/12/2018 Inactive warfarin 5 mg tablet RxNorm: 536026 1 Tablet(s) PO Tu , Sun, , Sat and Sun then 1/2 tablet (2.5mg) on Mon & Fri No Start Date 08/12/2018 Inactive losartan 25 mg tablet RxNorm: 232851 1 Tablet(s) PO QAM No Start Da te 08/12/2018 Inactive carvedilol 6.25 mg tablet RxNorm: 350932 1 Tablet(s) PO BID No Star t Date 08/12/2018 Inactive warfarin 2.5 mg tablet RxNorm: 584749 1 Tablet(s) PO , Thur s, Sat and Sun No Start Date 08/12/2018 Inactive Coumadin 2.5 mg tablet RxNorm: 376917 Tablet(s) Mon Sun and Sun PO No Start Date 02/17/2018 Inactive Children's Multivitamin with Iron tablet RxNorm: 1 Table t(s) PO QD No Start Date 04/22/2019 Inactive potassium chloride ER 20 mEq tablet,extended release(p art/cryst) RxNorm: 7973257 2 Tablet(s) PO QD No Start Date 05/05/2018 Inactive Coumadin 5 mg tablet RxNorm: 565561 Tablet(s) PO No Start Date 2017 Inactive mexiletine 200 mg capsule RxNorm: 4196244 1 Capsule(s) PO BID No St art Date 03/25/2018 Inactive ferrous sulfate 325 mg (65 mg iron) tablet RxNorm: 550346 1 Tab let(s) PO QD No Start Date 07/22/2018 Inactive cyclobenzaprine 10 mg tablet RxNorm: 008161 1 Tablet(s) PO Q8H as needed No Start Date 12/29/2018 Inactive potassium chloride ER 10 mEq capsule,extended release RxNorm : 829831 2 Capsule(s) PO QD No Start Date 12/11/2018 Inactive Coumadin 5 mg tablet RxNorm: 718948 1 Tablet(s) PO Tues, Thurs, Sat and Sun No Start Date 07/22/2018 Inactive Restoril 15 mg capsule RxNorm: 793288 1-2 Capsule(s) PO QHS as needed for sleep No Start Date 05/05/2018 Inactive metoprolol succinate ER 25 mg tablet,extended release 24 hr RxNorm: 614835 1 Tablet(s) PO QD No Start Date 08/12/2018 Inactive Entresto 24 mg-26 mg tablet RxNorm: 8381660 1 Tablet(s) PO BID No S tart Date 08/12/2018 Inactive warfarin 5 mg tablet RxNorm: 957348 1 Tablet(s) PO , Sun, , Sun and Sun and 1/2 tablet on Sun/Sun No Start Date 01/30/2019 Inactive amiodarone 200 mg tablet RxNorm: 127522 2 Tablet(s) PO BID No Start Date 10/09/2018 Inactive furosemide 20 mg tablet RxNorm: 857370 1 Tablet(s) PO QD No Start D ate 08/12/2018 Inactive amiodarone 200 mg tablet RxNorm: 464633 1 Tablet(s) PO BID No Start Date 08/26/2018 Inactive atorvastatin 40 mg tablet RxNorm: 893614 1 Tablet(s) PO QD No Start Date 08/12/2018 Inactive warfarin 5 mg tablet RxNorm: 128015 1/2 Tablet(s) PO on Sun, Sun, Sun, Sun then 1 tablet on Sun, , Sat No Start Date 04/22/2019 Inactive Medication Administered No Medication Administered data Immunizations Vaccine Codes Date Status Hepatitis A CVX: 83 11/20/2019 Pneumovax CVX: 33 05/14/2019 Hepatitis A CVX: 83 03/25/2019 Influenza CVX: 135 03/25/2019 Results Observation Observation Code Item Item Code Result Date S ervice Location UA W/MICR 71803 UA Urine Appear Normal 02/06/2018 Unk nown UA W/MICR 73699 UA Protein 3+ 02/06/2018 Unknown UA W/MICR 41596 UA Hemoglobin Trace 02/06/2018 Unkno wn UA W/MICR 78220 UA Glucose Negative 02/06/2018 Unknown UA W/MICR 90492 UA Ketones Negative 02/06/2018 Unknown UA W/MICR 45139 UA pH 5.5 02/06/2018 Unknown UA W/MICR 34041 U Spec Moran 1.025 02/06/2018 Unkn own UA W/MICR 94758 UA Bilirubin Negative 02/06/2018 Unknow n UA W/MICR 29008 UA Leuk Esteras Trace 02/06/2018 Unk nown UA W/MICR 50149 UA Nitrite NEG 02/06/2018 Unknown UA W/MICR 85784 UA WBC/hpf 11-25 02/06/2018 Unknown UA W/MICR 73187 UA RBC hpf 0-5 02/06/2018 Unknown UA W/MICR 76019 UA Hyaline Cast 16-25 02/06/2018 Unk nown UA W/MICR 31570 UA Squam Epi Few 02/06/2018 Unknow n Procedures Procedure Codes Date URINALYSIS NONAUTO W/O SCOPE CPT-4: 56658 01/30/2020 URINE CULTURE/ COLONY COUNT CPT-4: 37862 01/30/2020 URINALYSIS NONAUTO W/O SCOPE CPT-4: 76681 11/19/2019 INITIAL PREVENTIVE EXAM CPT-4: G0402 09/25/2019 URINALYSIS NONAUTO W/O SCOPE CPT-4: 19089 03/18/2019 URINE CULTURE/ COLONY COUNT CPT-4: 33531 03/18/2019 URINALYSIS NONAUTO W/O SCOPE CPT-4: 53431 12/12/2018 URINE CULTURE/ COLONY COUNT CPT-4: 65088 03/26/2018 URINALYSIS NONAUTO W/O SCOPE CPT-4: 60880 03/15/2018 INITIAL PREVENTIVE EXAM CPT-4: G0402 02/26/2018 URINALYSIS NONAUTO W/O SCOPE CPT-4: 14984 02/06/2018 URINE CULTURE/ COLONY COUNT CPT-4: 17806 02/06/2018 UA W/MICR CPT-4: 44332 02/06/2018 CUR TOBACCO NON-USER CPT-4: G8457 01/30/2018 REPAIR BLADDER & VAGINA CPT-4: 42837 01/06/2017 REPAIR OF RECTOCELE CPT-4: 58885 01/06/2017 BREAST SURGERY PROCEDURE CPT-4: 62807 Unknown LAPARO CHOLECYSTECTOMY/EXPLR CPT-4: 93883 Unknown HYSTERECTOMY/REVISE VAGINA CPT-4: 33577 Unknown Vital Signs Date Vital 02/05/2020 Blood [...] 1: 106/58 Code: 8480-6 BMI: 26.3 Code: 81856-9 Heart Rate 1: 72 bpm Height: 4'10" Respiratory Rate: 20 bpm SpO2: 97% Tempera ture: 36.6 (C) / 97.8 (F) Weight: 128 lbs 07/10/2018 Blood Pressure 1: 122/70 Code: 8480-6 BMI: 28.6 Code: 30291-7 Heart Rate 1: 80 bpm Height: 4'10" Respiratory Rate: 20 bpm SpO2: 96% Tempera ture: 36.9 (C) / 98.4 (F) Weight: 139 lbs 05/06/2018 Blood Pressure 1: 112/54 Code: 8480-6 BMI: 27.5 Code: 90993-5 Heart Rate 1: 80 bpm Height: 4'10" [...] 1: 146/80 Code: 8480-6 BMI: 30.0 Code: 07514-3 Heart Rate 1: 76 bpm Height: 4'10" Respiratory Rate: 20 bpm SpO2: 97% Tempera ture: 36.7 (C) / 98.1 (F) Weight: 146 lbs 02/26/2018 Blood Pressure 1: 126/80 Code: 8480-6 BMI: 29.6 Code: 64488-1 Heart Rate 1: 80 bpm Height: 4'10" Respiratory Rate: 18 bpm SpO2: 96% Tempera ture: 37.0 (C) / 98.6 (F) Weight: 144 lbs 01/30/2018 Blood Pressure 1: 120/78 Code: 8480-6 BMI: 29.6 Code: 19943-2 Heart Rate 1: 84 bpm Height: 4'10" [...] Care Encounters Encounter Performer Location Codes Date (71182) OFFICE/OUTPATIENT VISIT EST Diagnosis: Pain in right foot[ICD10: M79.671] Bhavna DAILY [employer] CPT-4: 77765 02/05/2020 ([id number]) OFFICE/OUTPATIENT VISIT EST Diagnosis: Urinary tract infection, site not specified[ICD10: N39.0] Diagnosis: Left lower quadrant pain[ICD10: R10.32] Bhavna DAILY [employer] CPT-4: 30439 01/30/2020 ([id number]) OFFICE/OUTPATIENT VISIT EST Diagnosis: Hypotension[ICD10: I95.9] Diagnosis: Chronic kidney disease[ICD10: N18.9] Farhat DAILY [employer] CPT-4: 03327 11/24/2019 ([id number]) OFFICE/OUTPATIENT VISIT EST Diagnosis: Hypotension[ICD10: I95.9] Diagnosis: Dizziness and giddiness[ICD10: R42] Diagnosis: Polyuria[ICD10: R35.8] Farhat Landeros [employer] [facility] CPT-4: 92938 11/19/2019 ([id number]) OFFICE/OUTPATIENT VISIT EST Diagnosis: Sigmoid diverticulitis[ICD10: K57.32] Farhat DAILY [employer] [facility] CPT-4: 85876 08/26/2019 ([id number]) OFFICE/OUTPATIENT VISIT EST Diagnosis: Clostridium difficile colitis[ICD10: A04.72] Farhat DAILY [facility] CPT-4: 77479 05/07/2019 ([id number]) OFFICE/OUTPATIENT VISIT EST Diagnosis: Clostridium difficile colitis[ICD10: A04.72] Diagnosis: Edema[ICD10: R60.9] Farhat DAILY [facility] CPT-4: 80147 04/23/2019 ([id number]) OFFICE/OUTPATIENT VISIT EST Diagnosis: Constipation[ICD10: K59.00] Diagnosis: Left lower quadrant pain[ICD10: R10.32] Bhavna DAILY [facility] CPT-4: 53800 03/27/2019 ([id number]) OFFICE/OUTPATIENT VISIT EST Diagnosis: Acute kidney failure, unspecified[ICD10: N17.9] Farhat DAILY [facility] CPT-4: 56415 03/18/2019 ([id number]) OFFICE/OUTPATIENT VISIT EST Diagnosis: Essential (primary) hypertension[ICD10: I10] Diagnosis: Chronic atrial fibrillation[ICD10: I48.2] Diagnosis: Mixed hyperlipidemia[ICD10: E78.2] Diagnosis: Other fatigue[ICD10: R53.83] Diagnosis: Abdominal distension (gaseous)[ICD10: R14.0] Farhat DAILY [facility] CPT-4: 39648 02/12/2019 ([id number]) OFFICE/OUTPATIENT VISIT EST Diagnosis: Low back pain[ICD10: M54.5] Bhavna DOUGHERTY S[facility]END[facility] CPT-4: 11633 12/25/2018 ([id number]) OFFICE/OUTPATIENT VISIT EST Diagnosis: Low back pain[ICD10: M54.5] Bhavna DOUGHERTY S. O RENDER [facility] CPT-4: 91767 12/12/2018 ([id number]) OFFICE/OUTPATIENT VISIT EST Diagnosis: Anemia, unspecified[ICD10: D64.9] Diagnosis: Chronic atrial fibrillation[ICD10: I48.2] Diagnosis: Other fatigue[ICD10: R53.83] [facility] CPT-[facility]: 13348 10/10/2018 ([id number]) OFFICE/OUTPATIENT VISIT EST Diagnosis: Acute on chronic combined systolic (congestive) and diastolic (congestive) heart failure[ICD10: I50.43] Diagnosis: Chronic atrial fibrillation[ICD10: I48.2] Farhat DAILY [employer] [facility] CPT-4: 02209 08/27/2018 ([id number]) OFFICE/OUTPATIENT VISIT EST Diagnosis: Chronic atrial fibrillation[ICD10: I48.2] 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] 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: termination clerk (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[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] Farhat DAILY [employer] [facility] CPT-4: 22056 08/13/2018 ([id number]) OFFICE/OUTPATIENT VISIT EST Diagnosis: Acute on chronic combined systolic (congestive) and diastolic (congestive) heart failure[ICD10: I50.43] Diagnosis: Essential (primary) hypertension[ICD10: I10] Diagnosis: Anemia, unspecified[ICD10: D64.9] Farhat DAILY [employer] [facility] CPT-4: 77263 07/10/2018 ([id number]) OFFICE/OUTPATIENT VISIT EST Diagnosis: Chronic atrial fibrillation[ICD10: I48.2] Diagnosis: Acute on chronic combined systolic (congestive) and diastolic (congestive) heart failure[ICD10: I50.43] Diagnosis: Localized edema[ICD10: R60.0] Farhat DAILY [employer] [facility] CPT-4: 80018 05/06/2018 ([id number]) OFFICE/OUTPATIENT VISIT EST Diagnosis: Generalized abdominal pain[ICD10: R10.84] Diagnosis: Pelvic and perineal pain[ICD10: R10.2] Diagnosis: Localized edema[ICD10: R60.0] Bhavna DAILY [employer] [facility] CPT-4: 77545 04/17/2018 ([id number]) OFFICE/OUTPATIENT VISIT EST Diagnosis: Urinary tract infection, site not specified[ICD10: N39.0] Diagnosis: Other insomnia[ICD10: G47.09] Diagnosis: Other fatigue[ICD10: R53.83] Diagnosis: Other forms of dyspnea[ICD10: R06.09] Diagnosis: Chronic atrial fibrillation[ICD10: I48.2] Diagnosis: Restless legs syndrome[ICD10: G25.81] Farhat DAILY DO [facility] CPT-4: 95221 03/26/2018 ([id number]) OFFICE/OUTPATIENT VISIT EST Diagnosis: Altered mental status, unspecified[ICD10: R41.82] Diagnosis: termination clerk (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[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] Diagnosis: Hematuria, unspecified[ICD10: R31.9] Bhavna DAILY DO [facility] CPT-4: 79628 03/15/2018 ([id number]) NURSE/OUTPATIENT VISIT EST Diagnosis: Urinary tract infection, site not specified[ICD10: N39.0] Farhat DAILY DO [facility] CPT-4: 63707 02/06/2018 OFFICE/OUTPATIENT VISIT NEW Diagnosis: jail (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[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] Diagnosis: Essential (primary) hypertension[ICD10: I10] Diagnosis: Mixed hyperlipidemia[ICD10: E78.2] Diagnosis: Other fatigue[ICD10: R53.83] Diagnosis: Cardiac arrhythmia, unspecified[ICD10: I49.9] Diagnosis: Generalized abdominal pain[ICD10: R10.84] Diagnosis: Urinary tract infection, site not specified[ICD10: N39.0] Diagnosis: Other insomnia[ICD10: G47.09] Bhavna DAILY DO [facility] CPT-4: 08730 01/30/2018 Plan of Care Planned Activity Notes [...] M79.671 02/05/2020 Patient Education: ondansetron- [employer] Coupon [phone] https://www.[email or web address]/Qwbcg/resources/getResource/61/[email or web address] Completed 02/05/2020 Visit Diagnosis Plan: Left lower [...] ICD-10 : R10.32 01/30/2020 Appointment: Bhavna Escalante [address] [place], [place] [address] ACUTE ILLNESS 01/30/2020 Patient Education: temazepam- [employer] Coupon [phone] https://www.[employer]/samplemd/resources/getResource/61/[email or web address] Completed 01/30/2020 Patient Education: temazepam- [employer] Coupon [phone] https://www.[employer]/samplemd/resources/getResource/61/[email or web address]-[email or web address] Completed 01/30/2020 Visit Diagnosis Plan: Chronic kidney [...] I95.9 11/24/2019 [facility]ment[facility] Farhat [facility] [address] [facility] [facility] 11/24/2019 Visit Diagnosis Plan: Hypotension Discussion: BP today is okay ICD-9 : 458.9 ICD-10 : I95.9 11/19/2019 Visit Diagnosis Plan: Polyuria Discussion: UA normal ICD-9 : 788.42 ICD-10 : R35.8 11/19/2019 Visit Diagnosis Plan: Dizziness and giddiness Discussi on: Check lab--CBC, CMP, TSH, PT/INR now ICD-9 : 780.4 ICD-10 : R42 11/19/2019 Appointment: Farhat Daily WPtel: [address] [facility] ACUTE ILLNESS 11/19/2019 Patient Education: Colace- [employer] Coupon [phone] https://www.[employer]/resources/getResource/61/[email or web address] Completed 11/19/2019 Visit Diagnosis Plan: Encounter for gene [facility] adult medical examination with abnormal findings [...] : I10 09/25/2019 Appointment: Farhat [facility] [facility] Visit 09/25/2019 Care Plan: COMPREHEN METABOLIC PANEL [place] : 16572-6 Pending 09/22/2019 Care Plan: COMPLETE CBC W/AUTO DIFF WBC LOINC : 67335-7 Pending 09/22/2019 Appointment: Bhavna Escalante [address] [facility] [place] pt. feeling better and still had [...] : K57.32 08/26/2019 Appointment: Farhat Daily WPtel: [address] [place], [place] [phone] ACUTE ILLNESS 08/26/2019 Appointment: Farhat Daily WPtel: [address] [place], [place] [address] originally 4 mo follow up CANCELED 2018 Visit Diagnosis Plan: Clostridium difficile colitis Di scussion: Vancomycin daily for another week then 125mg every 3 days for 1 month then stop Fwup in September ICD-9 : 008.45 ICD-10 : A04.72 05/07/2019 Appointment: Farhat Daily WPtel: [address] [place], [place] [phone] FOLLOW UP 05/07/2019 Visit Diagnosis Plan: Edema [...] : A04.72 04/23/2019 Appointment: Farhat Daily WPtel: [address] [place], [place] [phone] Hospital Follow Up 04/23/2019 Appointment: Bhavna Escalante [address] [facility] [address] CANCELED 04/15/2019 Visit Diagnosis Plan: Left lower quadrant pain Discuss ion: will start with abdominal xray to rule out acute obstruction/constipation. if no acute findings, will treat as diverticulitis due to patient's past history. ICD-9 : 789.04 ICD-10 : R10.32 03/27/2019 Appointment: [facility]havna Escalante [address] [id number] [facility] 03/27/2019 Visit Diagnosis Plan: Acute kidney failure, unspecifie d Discussion: Was given Meloxicam at urgent care--discussed no NSAIDs, hydrate, repeat Chem 7 in 1 week ICD-9 : 584.9 ICD-10 : N17.9 03/18/2019 Appointment: Farhat Daily WPtel: [address] [place] [address] [place] ACUTE ILLNESS 03/18/2019 Visit Diagnosis Plan: Abdominal distension (gaseous) D iscussion: Trial of Zenpep q AC ICD-9 : 787.3 ICD-10 : R14.0 02/12/2019 Visit Diagnosis Plan: Essential (primary) hypertension Discussion: Stable ICD-9 : 401.9 ICD-10 : I10 02/12/2019 Visit Diagnosis Plan: Chronic atrial fibrillation Disc ussion: Following routinely with Cardiology ICD-9 : 427.31 ICD-10 : I48.2 02/12/2019 Appointment: Farhat Daily WPtel: [facility] [place] [address] US FOLLOW UP 02/12/2019 Appointment: Bhavna Escalante [address] [place], [place] [address]a [place] [address] US Canceled per guillermina. sending for mri [...] ICD-10 : M54.5 12/25/2018 Appointment: Bhavna Escalante [address] [place], [place] [address] [address] ACUTE ILLNESS 12/25/2018 Visit Diagnosis Plan: [...] M54.5 12/12/2018 Appointment: Bhavna Escalante [address] [place] [address] ACUTE ILLNESS 12/12/2018 Patient Education: cyclobenzaprine- [employer] Coupon [id number] https://www.[employer]/samplemd/resources/getResource/61/wv9962f9-h758-9d1r-z5 Completed 12/12/2018 Appointment: Bhavna Escalante [address] [place], [place] [id number] US CANCELED 12/06/2018 Visit Diagnosis Plan: Chronic [...] : R53.83 10/10/2018 Appointment: Farhat Daily WPtel: [address] [place] [address] US FOLLOW UP 10/10/2018 Visit Diagnosis Plan: [...] : I50.43 08/27/2018 Appointment: Farhat Daily WPtel: [address] [place] [address] US FOLLOW UP 08/27/2018 Visit Diagnosis Plan: [...] ICD-10 : I48.2 08/13/2018 Visit Diagnosis Plan: jail (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 Discussion: Increase Coumadin to 5mg po daily and repeat PT/INR in 2 weeks ICD-9 : V58.61 ICD-10 : Z79.01 08/13/2018 App[facility]ment[facility] [facility] 08/13/2018 Patient Education: bumetanide- [employer] Coupon [id number] https://www.[employer]/Qwbcg/resources/getResource/61/5nw24j63-5tj7-2d71-jk Completed 08/13/2018 Patient Education: levothyroxine- [employer] Coupon [phone] [id number] https://www.[employer]/Qwbcg/resources/getResource/61/5326084b-0510-2h00-re Completed 08/13/2018 Patient Education: warfarin- [employer] Coupon [id number] https://www.[employer]/Qwbcg/resources/getResource/61/40534219-xt87-04d2-2w Completed 08/13/2018 Patient Education: pantoprazole- [employer] Coupon [phone] https://www.[employer]/Qwbcg/resources/getResource/61/v4599b23-59j6-58sq-3x Completed 08/13/2018 Patient Education: spironolactone- [employer] Coupon 5 [id number] https://www.[employer]/Qwbcg/resources/getResource/61/8qi890d9-t764-5990-qm Completed 08/13/2018 Visit Diagnosis Plan: Anemia, unspecified [...] : I50.43 07/10/2018 Appointment: Farhat Daily WPtel: [address] [place], [place] [phone] 2nd LM FOLLOW UP 07/10/2018 Visit Diagnosis [...] : I48.2 05/06/2018 Appointment: Farhat Daily WPtel: [facility] FOLLOW UP 05/06/2018 Visit Diagnosis Plan: Generalized [...] ICD-10 : R10.2 04/17/2018 Appointment: Bhavna Escalante [address] [place] [address] ACUTE ILLNESS 04/17/2018 Patient Education: Patient Medication Summary Completed 04/17/2018 Care Plan: CT ABDOMEN W/O & W/DYE LOINC : 05522-8 Pending 04/17/2018 Care Plan: CT PELVIS W/O & W/DYE LOINC : 00911-8 Pending 04/17/2018 [phone] [facility] [facility] CANC[facility]ED 04/10/2018 Visit Diagnosis Plan: Urinary [...] G47.09 03/26/2018 [facility]ment[phone] [facility] Follow UP 03/26/2018 Patient Education: Patient [...] ICD-10 : R41.82 03/15/2018 Appointment: Bhavna Escalante [address] [place] [address] ACUTE ILLNESS 03/15/2018 Patient Education: Patient Medication Summary Completed 03/15/2018 Visit Diagnosis Plan: Primary insomnia Discussion: Tri al of elavil 10mg po q HS ICD-9 : 780.52 ICD-10 : F51.01 02/26/2018 Visit Diagnosis Plan: Functional dyspepsia Discussion: Increase protonix to 40mg po BID Follow Up: 1 months ICD-9 : 536.8 ICD-10 : K30 02/26/2018 Appointment: Farhat Daily WPtel: [address] [place] [address] WELCOME TO MEDICARE 02/26/2018 Patient Education: Patient Medication Summary Completed 02/26/2018 Referral: Song Noonan WPtel: [address] [place] [address] [place] Referral Initiated 02/19/2018 Appointment: Farhat Daily WPtel: [address] [place] [address] US LAB 02/06/2018 Patient Education: Patient Medication Summary Completed 02/06/2018 Appointment: Farhat Daily WPtel: [address] [place] [address] US CANCELED 02/01/2018 Care Plan: US EXAM ABDOM COMPLETE liver LOINC : 47165-2 Pending 01/31/2018 Visit Diagnosis Plan: Other fatigue [...] ICD-10 : I10 01/30/2018 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 informed her to take tylenol or remaining hydrocodone from surgery if pain develops. ICD-9 : V58.61 ICD-10 : Z79.01 01/30/2018 Appointment: Bhavna Escalante [address] [place] [address] NEW PATIENT 01/30/2018 Patient Education: Patient Medication Summary Completed 01/30/2018 Instructions No Instructions Medical Equipment No Medical Equipment data Health Concerns Section Health Concerns data not found Goals Section Goals data not found Interventions Section Interventions data not found Health Status Evaluations/Outcomes Section Health Status Evaluations/Outcomes data not found Advance Directives No Advance Directive data
--- OUTSIDE RECORDS SUMMARY | 2020-02-10 13:58 | XMS REPORT | CCD ---
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 Name Role Phone PP Unavailable CCM Unavailable Summary Purpose Interface Exchange Insurance Providers Payer name Policy type / Coverage type Covered libertarian ID Effective Begin Date Effective End Date WPS MEDICARE [place] Medicare Part B [id number] 2017 Unknown Cigna Medicare Part B [id number] 2017 Unknown Family History Family History data not found Social History Social History Element Codes Description Effective Dates Tobacco history SNOMED CT: 207844768 Never smoker 01/30/[address]: 677071168 Never drinks alcohol 2017 Allergies, Adverse Reactions, [...] hypertension ICD-9: 401.9 ICD-10: I10 01/30/2018 Active 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 ICD-9: V58.6 1 [...] Instructions ondansetron 4 mg disintegrating tablet RxNorm: 926396 1 Tablet(s) Oral Q4H as needed for nausea 02/05/2020 No Stop Date Active Lomotil 2.5 mg-0.025 mg tablet RxNorm: 6905860 1 Tablet( s) Oral Every 6 hours as needed 02/05/2020 No Stop Date Active hydrocodone 5 mg-acetaminophen 325 mg tablet RxNorm: 118565 1 Tablet(s) Oral Every 6 hours as needed 02/05/2020 No Stop Date Active temazepam 15 mg capsule RxNorm: 580650 TAKE 1 TO 2 CAPS ULES BY MOUTH AT BEDTIME NEEDED FOR SLEEP 01/30/2020 01/30/2020 Inactive Augmentin 875 mg-125 mg tablet RxNorm: 474556 1 Tablet( s) Oral three times a day 01/30/2020 02/05/2020 Inactive temazepam 15 mg capsule RxNorm: 966402 TAKE 1 TO 2 CAPS ULES BY MOUTH AT BEDTIME NEEDED FOR SLEEP 01/30/2020 01/29/2020 Inactive Augmentin 875 mg-125 mg tablet RxNorm: 986729 1 Tablet( s) Oral three times a day 01/30/2020 01/29/2020 Inactive levothyroxine 25 mcg tablet RxNorm: 719130 1 Tablet(s) Oral QD 0707/201904/06/2020 Active potassium chloride ER 10 mEq capsule,extended release RxNorm : 328396 TAKE ONE CAPSULE BY MOUTH TWICE A DAY OF AND TAKE ONE CAPSULE BY MOUTH DAILY ON [id number] 12/23/2019 No Stop Date Active Colace 100 mg capsule RxNorm: 9323138 1 Capsule(s) Oral three ti mes a day 11/19/2019 12/19/2019 Inactive warfarin 5 mg tablet RxNorm: 065015 1 Tablet(s) Oral MW F and 1/2 tablet (2.5mg) [facility] kristie [facility] 09/30/2019 12/29/2019 Inactive levothyroxine 25 mcg tablet RxNorm: 874573 TAKE ONE TABLET BY M OUTH DAILY 09/30/2019 01/06/2020 Inactive potassium chloride ER 10 mEq capsule,extended release RxNorm : 496517 1 Capsule(s) Oral two times a day on and 1 capsule Gy-Ox-Smg-Sun 09/26/2019 09/26/2019 Inactive vancomycin 125 mg capsule RxNorm: 563969 2 Capsule(s) Oral Q8H 08/0909/05/2019 Inactive warfarin 5 mg tablet RxNorm: 980529 1 Tablet(s) Oral MW F and 1/2 tablet (2.5mg) [facility] kristie [facility] 08/26/2019 09/29/2019 Inactive Colace 100 mg capsule RxNorm: 4000998 1 Capsule(s) Oral QD 08/26/1911/18/2019 Inactive levothyroxine 25 mcg tablet RxNorm: 041025 1 Tablet(s) PO QD 201909/29/2019 Inactive spironolactone 25 mg tablet RxNorm: 867664 TAKE 1 TABLET BY DOUGLAS TWICE DAILY 06/22/2019 09/19/2019 Inactive losartan 25 mg tablet RxNorm: 925768 TAKE 1 TABLET BY M OUTH ONCE DAILY IN THE MORNING 05/26/2019 No Stop Date Active bumetanide 1 mg tablet RxNorm: 252183 TAKE 1 TABLET BY MOUTH TWICE DAILY AT 6AM AND 6PM 05/23/2019 No Stop Date Active vancomycin 125 mg capsule RxNorm: 576850 1 Capsule(s) Oral Q3D 04/1008/25/2019 Inactive pantoprazole 40 mg tablet,delayed release RxNorm: 880306 1-2 Ta blet(s) Oral QD 04/23/2019 05/23/2019 Inactive potassium chloride ER 10 mEq capsule,extended release RxNorm : 726869 1 Capsule(s) Oral QD 04/23/2019 09/25/2019 Inactive warfarin 5 mg tablet RxNorm: 301140 Tablet(s) Oral Take 1 tablet (5mg) by mouth on and Sun then 1/2 tablet (2.5mg) on Sun, Sun, Th, Sat and Sun 04/23/2019 08/25/2019 Inactive temazepam 15 mg capsule RxNorm: 352994 TAKE 1 TO 2 CAPS ULES BY MOUTH AT BEDTIME NEEDED FOR SLEEP 04/08/2019 09/25/2019 Inactive Cipro 250 mg tablet RxNorm: 478437 1 Tablet(s) Oral two times a day 03/27/2019 04/03/2019 Inactive metronidazole 500 mg tablet RxNorm: 543966 1 Tablet(s) Oral thr ee times a day 03/27/2019 04/03/2019 Inactive bumetanide 1 mg tablet RxNorm: 203578 1 Tablet(s) PO BID (6am a nd 6pm) 02/13/2019 05/13/2019 Inactive levothyroxine 25 mcg tablet RxNorm: 393903 1 Tablet(s) PO QD 201807/13/2019 Inactive warfarin 5 mg tablet RxNorm: 512107 1 TABLET(S) PO TU , WED, THURS, SAT AND SUN AND 1/2 TABLET ON 02/04/2019 02/11/2019 Inactive Kendra ent requests 90 days supply warfarin 5 mg tablet RxNorm: 238607 1 TABLET(S) PO TUES , WED, THURS, SAT AND SUN AND 1/2 TABLET ON 02/03/2019 02/03/2019 Inactive Kendra ent requests 90 days supply levothyroxine 25 mcg tablet RxNorm: 433545 1 Tablet(s) PO QD 201802/03/2019 Inactive warfarin 5 mg tablet RxNorm: 067925 1 Tablet(s) PO Tu , Sun, Th, Sat and Sun and 1/2 tablet on Sun/Sun01/31/2019 02/02/2019 Inactive temazepam 15 mg capsule RxNorm: 035296 TAKE 1 TO 2 CAPS ULES BY MOUTH AT BEDTIME NEEDED FOR SLEEP 01/31/2019 04/07/2019 Inactive cyclobenzaprine 10 mg tablet RxNorm: 155822 1 Tablet(s) PO Q8H as needed 12/30/2018 09/25/2019 Inactive losartan 25 mg tablet RxNorm: 296173 1 Tablet(s) PO QAM 12/27/2018 Inactive Lidoderm 5 % topical patch RxNorm: 6955225 1 Application TOP Q12H and then off for 12 hours 12/25/2018 01/23/2019 Inactive Lidoderm 5 % topical patch RxNorm: 3628598 1 Application TOP Q12H and then off for 12 hours 12/25/2018 12/24/2018 Inactive cyclobenzaprine 5 mg tablet RxNorm: 242274 1 Tablet(s) PO Q8H a s needed 12/12/2018 12/24/2018 Inactive spironolactone 25 mg tablet RxNorm: 882158 1 Tablet(s) PO BID 09/2006/16/2019 Inactive change in directions to BID pantoprazole 40 mg tablet,delayed release RxNorm: 759070 1 Tabl et(s) PO QD 09/20/2018 04/22/2019 Inactive Patient requests 9 0 days supply spironolactone 25 mg tablet RxNorm: 966244 1 Tablet(s) PO BID 08/2609/19/2018 Inactive change in directions to BID pantoprazole 40 mg tablet,delayed release RxNorm: 466820 1 Tabl et(s) PO QD 08/15/2018 09/19/2018 Inactive Patient requests 9 0 days supply carvedilol 6.25 mg tablet RxNorm: 423073 1 Tablet(s) PO BID 019 02/08/2019 Inactive pantoprazole 40 mg tablet,delayed release RxNorm: 042736 1 Tablet(s) PO QD 1 TABLET(S) PO BID 08/13/2018 08/15/2018 Inactive Patient reque sts 90 days supply bumetanide 1 mg tablet RxNorm: 942994 1 Tablet(s) PO BID (6am a nd 6pm) 08/13/2018 02/08/2019 Inactive bumetanide 0.5 mg tablet RxNorm: 834893 1 Tablet(s) PO QPM three days a week--Sunday, Sun, Sunday instead of 1mg dose in evening 08/13/201812/2018 Inactive levothyroxine 25 mcg tablet RxNorm: 466390 1 Tablet(s) PO QD 201801/30/2019 Inactive spironolactone 25 mg tablet RxNorm: 934017 1 Tablet(s) PO QD 201808/25/2018 Inactive losartan 25 mg tablet RxNorm: 905558 1 Tablet(s) PO QAM 08/13/2018 Inactive warfarin 5 mg tablet RxNorm: 211229 1 Tablet(s) PO QD 08/13/201808/09 Inactive pantoprazole 40 mg tablet,delayed release RxNorm: 358231 1 TABL ET(S) PO BID 08/02/2018 08/12/2018 Inactive Patient requests 9 0 days supply temazepam 15 mg capsule RxNorm: 659843 1-2 Capsule(s) P O QHS as needed for sleep 2018 01/31/2019 Inactive Restoril 15 mg capsule RxNorm: 277414 1-2 Capsule(s) PO QHS as needed for sleep 06/04/2018 08/12/2018 Inactive potassium chloride ER 10 mEq capsule,extended release RxNorm : 043761 2 CAPSULE(S) PO QD 05/07/2018 08/04/2018 Inactive Patient reque sts 90 days supply temazepam 22.5 mg capsule RxNorm: 651617 1 Capsule(s) P O QHS as needed for sleep 05/06/2018 08/12/2018 Inactive potassium chloride ER 10 mEq capsule,extended release RxNorm : 847655 2 Capsule(s) PO QD 05/06/2018 05/06/2018 Inactive ropinirole 1 mg tablet RxNorm: 366496 1 TABLET(S) PO QHS FOR RE STLESS LEGS 03/27/2018 04/25/2018 Inactive Patient requests 9 0 days supply ropinirole 1 mg tablet RxNorm: 823568 1 Tablet(s) PO QHS for re stless legs 03/26/2018 03/26/2018 Inactive cefdinir 300 mg capsule RxNorm: 299494 1 Capsule(s) PO BID 03/26/20 18 03/30/2018 Inactive temazepam 15 mg capsule RxNorm: 738923 1 Capsule(s) PO QHS as neede d 03/20/2018 03/25/2018 Inactive Lunesta 3 mg tablet RxNorm: 267118 1 Tablet(s) PO QHS as needed for sleep 03/04/2018 03/19/2018 Inactive amitriptyline 10 mg tablet RxNorm: 279333 1 Tablet(s) PO QHS fo r sleep 02/26/2018 03/03/2018 Inactive escitalopram 20 mg tablet RxNorm: 314621 1 Tablet(s) PO QHS 018 08/12/2018 Inactive pantoprazole 40 mg tablet,delayed release RxNorm: 107601 1 Tabl et(s) PO BID 02/26/2018 04/26/2018 Inactive Coumadin 2.5 mg tablet RxNorm: 981104 1 Tablet(s) PO MWF 02/18/2018 0 07/22/2018 Inactive amiodarone 200 mg tablet RxNorm: 213479 1 Tablet(s) PO QD No Start Da te Active colestipol 1 gram tablet RxNorm: 4133223 1 Tablet(s) PO BID No Start Date Active pantoprazole 40 mg tablet,delayed release RxNorm: 686781 1 Tabl et(s) PO QD No Start Date Active pantoprazole 40 mg tablet,delayed release RxNorm: 821965 1 Tabl et(s) PO QD No Start Date 02/25/2018 Inactive bumetanide 1 mg tablet RxNorm: 023528 1 Tablet(s) PO BID (6am a nd 6pm) No Start Date 08/12/2018 Inactive potassium chloride ER 10 mEq tablet,extended release RxNorm: 656800 1 Tablet(s) PO QD No Start Date 02/11/2019 Inactive levothyroxine 25 mcg tablet RxNorm: 864550 1 Tablet(s) PO QD No Sta rt Date 08/12/2018 Inactive spironolactone 25 mg tablet RxNorm: 398781 1 Tablet(s) PO QD No Sta rt Date 08/12/2018 Inactive warfarin 5 mg tablet RxNorm: 405155 1 Tablet(s) PO MWF No Start Date 08/12/2018 Inactive warfarin 5 mg tablet RxNorm: 059731 1 Tablet(s) PO Tu , Sun, , Sat and Sun then 1/2 tablet (2.5mg) on Mon & Fri No Start Date 08/12/2018 Inactive losartan 25 mg tablet RxNorm: 305812 1 Tablet(s) PO QAM No Start Da te 08/12/2018 Inactive carvedilol 6.25 mg tablet RxNorm: 280394 1 Tablet(s) PO BID No Star t Date 08/12/2018 Inactive warfarin 2.5 mg tablet RxNorm: 587720 1 Tablet(s) PO , Thur s, Sat and Sun No Start Date 08/12/2018 Inactive Coumadin 2.5 mg tablet RxNorm: 095862 Tablet(s) Mon Sun and Sun PO No Start Date 02/17/2018 Inactive Children's Multivitamin with Iron tablet RxNorm: 1 Table t(s) PO QD No Start Date 04/22/2019 Inactive potassium chloride ER 20 mEq tablet,extended release(p art/cryst) RxNorm: 3762415 2 Tablet(s) PO QD No Start Date 05/05/2018 Inactive Coumadin 5 mg tablet RxNorm: 486021 Tablet(s) PO No Start Date 2017 Inactive mexiletine 200 mg capsule RxNorm: 6792316 1 Capsule(s) PO BID No St art Date 03/25/2018 Inactive ferrous sulfate 325 mg (65 mg iron) tablet RxNorm: 739303 1 Tab let(s) PO QD No Start Date 07/22/2018 Inactive cyclobenzaprine 10 mg tablet RxNorm: 351909 1 Tablet(s) PO Q8H as needed No Start Date 12/29/2018 Inactive potassium chloride ER 10 mEq capsule,extended release RxNorm : 377662 2 Capsule(s) PO QD No Start Date 12/11/2018 Inactive Coumadin 5 mg tablet RxNorm: 755071 1 Tablet(s) PO Tues, Thurs, Sat and Sun No Start Date 07/22/2018 Inactive Restoril 15 mg capsule RxNorm: 306512 1-2 Capsule(s) PO QHS as needed for sleep No Start Date 05/05/2018 Inactive metoprolol succinate ER 25 mg tablet,extended release 24 hr RxNorm: 337351 1 Tablet(s) PO QD No Start Date 08/12/2018 Inactive Entresto 24 mg-26 mg tablet RxNorm: 5831633 1 Tablet(s) PO BID No S tart Date 08/12/2018 Inactive warfarin 5 mg tablet RxNorm: 417423 1 Tablet(s) PO , Sun, , Sun and Sun and 1/2 tablet on Sun/Sun No Start Date 01/30/2019 Inactive amiodarone 200 mg tablet RxNorm: 238164 2 Tablet(s) PO BID No Start Date 10/09/2018 Inactive furosemide 20 mg tablet RxNorm: 929036 1 Tablet(s) PO QD No Start D ate 08/12/2018 Inactive amiodarone 200 mg tablet RxNorm: 937999 1 Tablet(s) PO BID No Start Date 08/26/2018 Inactive atorvastatin 40 mg tablet RxNorm: 273472 1 Tablet(s) PO QD No Start Date 08/12/2018 Inactive warfarin 5 mg tablet RxNorm: 404758 1/2 Tablet(s) PO on Sun, Sun, Sun, Sun then 1 tablet on Sun, , Sat No Start Date 04/22/2019 Inactive Medication Administered No Medication Administered data Immunizations Vaccine Codes Date Status Hepatitis A CVX: 83 11/20/2019 Pneumovax CVX: 33 05/14/2019 Hepatitis A CVX: 83 03/25/2019 Influenza CVX: 135 03/25/2019 Results Observation Observation Code Item Item Code Result Date S ervice Location UA W/MICR 10278 UA Urine Appear Normal 02/06/2018 Unk nown UA W/MICR 60510 UA Protein 3+ 02/06/2018 Unknown UA W/MICR 65311 UA Hemoglobin Trace 02/06/2018 Unkno wn UA W/MICR 64040 UA Glucose Negative 02/06/2018 Unknown UA W/MICR 64490 UA Ketones Negative 02/06/2018 Unknown UA W/MICR 74935 UA pH 5.5 02/06/2018 Unknown UA W/MICR 40899 U Spec [place] 1.025 02/06/2018 Unkn own UA W/MICR 77649 UA Bilirubin Negative 02/06/2018 Unknow n UA W/MICR 92435 UA Leuk Esteras Trace 02/06/2018 Unk nown UA W/MICR 06182 UA Nitrite NEG 02/06/2018 Unknown UA W/MICR 67755 UA WBC/hpf 11-25 02/06/2018 Unknown UA W/MICR 75516 UA RBC hpf 0-5 02/06/2018 Unknown UA W/MICR 69198 UA Hyaline Cast 16-25 02/06/2018 Unk nown UA W/MICR 85322 UA Squam Epi Few 02/06/2018 Unknow n Procedures Procedure Codes Date URINALYSIS NONAUTO W/O SCOPE CPT-4: 77923 01/30/2020 URINE CULTURE/ COLONY COUNT CPT-4: 64528 01/30/2020 URINALYSIS NONAUTO W/O SCOPE CPT-4: 91839 11/19/2019 INITIAL PREVENTIVE EXAM CPT-4: G0402 09/25/2019 URINALYSIS NONAUTO W/O SCOPE CPT-4: 37933 03/18/2019 URINE CULTURE/ COLONY COUNT CPT-4: 36340 03/18/2019 URINALYSIS NONAUTO W/O SCOPE CPT-4: 25738 12/12/2018 URINE CULTURE/ COLONY COUNT CPT-4: 09908 03/26/2018 URINALYSIS NONAUTO W/O SCOPE CPT-4: 46084 03/15/2018 INITIAL PREVENTIVE EXAM CPT-4: G0402 02/26/2018 URINALYSIS NONAUTO W/O SCOPE CPT-4: 32592 02/06/2018 URINE CULTURE/ COLONY COUNT CPT-4: 09273 02/06/2018 UA W/MICR CPT-4: 67737 02/06/2018 CUR TOBACCO NON-USER CPT-4: G8457 01/30/2018 REPAIR BLADDER & VAGINA CPT-4: 69644 01/06/2017 REPAIR OF RECTOCELE CPT-4: 88541 01/06/2017 BREAST SURGERY PROCEDURE CPT-4: 41649 Unknown LAPARO CHOLECYSTECTOMY/EXPLR CPT-4: 74027 Unknown HYSTERECTOMY/REVISE VAGINA CPT-4: 62370 Unknown Vital Signs Date Vital 02/05/2020 Blood [...] 1: 106/58 Code: 8480-6 BMI: 26.3 Code: 92203-7 Heart Rate 1: 72 bpm Height: 4'10" Respiratory Rate: 20 bpm SpO2: 97% Tempera ture: 36.6 (C) / 97.8 (F) Weight: 128 lbs 07/10/2018 Blood Pressure 1: 122/70 Code: 8480-6 BMI: 28.6 Code: 47116-3 Heart Rate 1: 80 bpm Height: 4'10" Respiratory Rate: 20 bpm SpO2: 96% Tempera ture: 36.9 (C) / 98.4 (F) Weight: 139 lbs 05/06/2018 Blood Pressure 1: 112/54 Code: 8480-6 BMI: 27.5 Code: 26048-3 Heart Rate 1: 80 bpm Height: 4'10" [...] 1: 146/80 Code: 8480-6 BMI: 30.0 Code: 78707-0 Heart Rate 1: 76 bpm Height: 4'10" Respiratory Rate: 20 bpm SpO2: 97% Tempera ture: 36.7 (C) / 98.1 (F) Weight: 146 lbs 02/26/2018 Blood Pressure 1: 126/80 Code: 8480-6 BMI: 29.6 Code: 14496-6 Heart Rate 1: 80 bpm Height: 4'10" Respiratory Rate: 18 bpm SpO2: 96% Tempera ture: 37.0 (C) / 98.6 (F) Weight: 144 lbs 01/30/2018 Blood Pressure 1: 120/78 Code: 8480-6 BMI: 29.6 Code: 71011-4 Heart Rate 1: 84 bpm Height: 4'10" [...] Care Encounters Encounter Performer Location Codes Date ([id number]) OFFICE/OUTPATIENT VISIT EST Diagnosis: Pain in right foot[ICD10: M79.671] Bhavna DAILY [facility] CPT-4: 84220 02/05/2020 ([id number]) OFFICE/OUTPATIENT VISIT EST Diagnosis: Urinary tract infection, site not specified[ICD10: N39.0] Diagnosis: Left lower quadrant pain[ICD10: R10.32] Bhavna DAILY [facility] CPT-4: 74636 01/30/2020 ([id number]) OFFICE/OUTPATIENT VISIT EST Diagnosis: Hypotension[ICD10: I95.9] Diagnosis: Chronic kidney disease[ICD10: N18.9] Farhat DAILY [facility] CPT-4: 61065 11/24/2019 ([id number]) OFFICE/OUTPATIENT VISIT EST Diagnosis: Hypotension[ICD10: I95.9] Diagnosis: Dizziness and giddiness[ICD10: R42] Diagnosis: Polyuria[ICD10: R35.8] Farhat Landeros [facility] CPT-4: 60002 11/19/2019 ([id number]) OFFICE/OUTPATIENT VISIT EST Diagnosis: Sigmoid diverticulitis[ICD10: K57.32] Farhat DAILY [facility] [facility] CPT-4: 27253 08/26/2019 ([id number]) OFFICE/OUTPATIENT VISIT EST Diagnosis: Clostridium difficile colitis[ICD10: A04.72] Farhat DAILY [facility] CPT-4: 81504 05/07/2019 ([id number]) OFFICE/OUTPATIENT VISIT EST Diagnosis: Clostridium difficile colitis[ICD10: A04.72] Diagnosis: Edema[ICD10: R60.9] Farhat DAILY [facility] CPT-4: 16230 04/23/2019 ([id number]) OFFICE/OUTPATIENT VISIT EST Diagnosis: Constipation[ICD10: K59.00] Diagnosis: Left lower quadrant pain[ICD10: R10.32] Bhavna DAILY [facility] CPT-4: 58659 03/27/2019 ([id number]) OFFICE/OUTPATIENT VISIT EST Diagnosis: Acute kidney failure, unspecified[ICD10: N17.9] Farhat DAILY [facility] CPT-4: 97222 03/18/2019 ([id number]) OFFICE/OUTPATIENT VISIT EST Diagnosis: Essential (primary) hypertension[ICD10: I10] Diagnosis: Chronic atrial fibrillation[ICD10: I48.2] Diagnosis: Mixed hyperlipidemia[ICD10: E78.2] Diagnosis: Other fatigue[ICD10: R53.83] Diagnosis: Abdominal distension (gaseous)[ICD10: R14.0] Farhat DAILY [facility] CPT-4: 27222 02/12/2019 ([id number]) OFFICE/OUTPATIENT VISIT EST Diagnosis: Low back pain[ICD10: M54.5] Bhavna DOUGHERTY S. O RENDER [facility] CPT-4: 25426 12/25/2018 ([id number]) OFFICE/OUTPATIENT VISIT EST Diagnosis: Low back pain[ICD10: M54.5] Bhavna DOUGHERTY S. O RENDER [facility] CPT-4: 69902 12/12/2018 ([id number]) OFFICE/OUTPATIENT VISIT EST Diagnosis: Anemia, unspecified[ICD10: D64.9] Diagnosis: Chronic atrial fibrillation[ICD10: I48.2] Diagnosis: Other fatigue[ICD10: R53.83] 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[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] Farhat DAILY [facility] CPT-4: 09639 08/13/2018 ([id number]) OFFICE/OUTPATIENT VISIT EST Diagnosis: Acute on chronic combined systolic (congestive) and diastolic (congestive) heart failure[ICD10: I50.43] Diagnosis: Essential (primary) hypertension[ICD10: I10] Diagnosis: Anemia, unspecified[ICD10: D64.9] Farhat DAILY [facility] CPT-4: 09282 07/10/2018 ([id number]) OFFICE/OUTPATIENT VISIT EST Diagnosis: Chronic atrial fibrillation[ICD10: I48.2] Diagnosis: Acute on chronic combined systolic (congestive) and diastolic (congestive) heart failure[ICD10: I50.43] Diagnosis: Localized edema[ICD10: R60.0] Farhat DAILY [facility] CPT-4: 93982 05/06/2018 ([id number]) OFFICE/OUTPATIENT VISIT EST Diagnosis: Generalized abdominal pain[ICD10: R10.84] Diagnosis: Pelvic and perineal pain[ICD10: R10.2] Diagnosis: Localized edema[ICD10: R60.0] Bhavna DAILY [employer] [facility] CPT-4: 59892 04/17/2018 ([id number]) OFFICE/OUTPATIENT VISIT EST Diagnosis: Urinary tract infection, site not specified[ICD10: N39.0] Diagnosis: Other insomnia[ICD10: G47.09] Diagnosis: Other fatigue[ICD10: R53.83] Diagnosis: Other forms of dyspnea[ICD10: R06.09] Diagnosis: Chronic atrial fibrillation[ICD10: I48.2] Diagnosis: Restless legs syndrome[ICD10: G25.81] Farhat DAILY DO [facility] CPT-4: 70914 03/26/2018 ([id number]) OFFICE/OUTPATIENT VISIT EST Diagnosis: Altered mental status, unspecified[ICD10: R41.82] 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[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] Diagnosis: Hematuria, unspecified[ICD10: R31.9] Bhavna DAILY DO [facility] CPT-4: 40954 03/15/2018 ([id number]) NURSE/OUTPATIENT VISIT EST Diagnosis: Urinary tract infection, site not specified[ICD10: N39.0] Farhat DAILY DO [facility] CPT-4: 00566 02/06/2018 OFFICE/OUTPATIENT VISIT NEW Diagnosis: alf (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[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] Diagnosis: Essential (primary) hypertension[ICD10: I10] Diagnosis: Mixed hyperlipidemia[ICD10: E78.2] Diagnosis: Other fatigue[ICD10: R53.83] Diagnosis: Cardiac arrhythmia, unspecified[ICD10: I49.9] Diagnosis: Generalized abdominal pain[ICD10: R10.84] Diagnosis: Urinary tract infection, site not specified[ICD10: N39.0] Diagnosis: Other insomnia[ICD10: G47.09] Bhavna DAILY DO [facility] CPT-4: 60207 01/30/2018 Plan of Care Planned Activity Notes [...] M79.671 02/05/2020 Patient Education: ondansetron- Optimize[employer] Coupon [phone] https://www.[employer]/Auto Mute/resources/getResource/61/[email or web address]-769d-68eh-79 Completed 02/05/2020 Visit Diagnosis Plan: Left lower [...] ICD-10 : R10.32 01/30/2020 Appointment: Bhavna Escalante [address] [place], [place] [id number] ACUTE ILLNESS 01/30/2020 Patient Education: temazepam- [employer] Coupon [phone] https://www.[employer]/samplemd/resources/getResource/61/[email or web address]-[email or web address] Completed 01/30/2020 Patient Education: temazepam- [employer] Coupon [phone] https://www.[employer]/samplemd/resources/getResource/61/d508804l-5f69-758v-x7 Completed 01/30/2020 Visit Diagnosis Plan: Chronic kidney [...] I95.9 11/24/2019 Appointment: Farhat [facility] [address] [facility] [facility] 11/24/2019 Visit Diagnosis Plan: Hypotension Discussion: BP today is okay ICD-9 : 458.9 ICD-10 : I95.9 11/19/2019 Visit Diagnosis Plan: Polyuria Discussion: UA normal ICD-9 : 788.42 ICD-10 : R35.8 11/19/2019 Visit Diagnosis Plan: Dizziness and giddiness Discussi on: Check lab--CBC, CMP, TSH, PT/INR now ICD-9 : 780.4 ICD-10 : R42 11/19/2019 Appointment: Farhat Daily WPtel: [address] [facility] ACUTE ILLNESS 11/19/2019 Patient Education: Colace- [employer] Coupon [phone] https://www.[employer]/sampledeeplocal/resources/getResource/61/[email or web address] Completed 11/19/2019 Visit Diagnosis Plan: Encounter for gene [facility] adult medical examination with abnormal findings Discussion: [...] : I10 09/25/2019 Appointment: Farhat Daily WPtel: [facility] Annual Well Visit 09/25/2019 Care Plan: COMPREHEN METABOLIC [place] : 73632-2 Pending 09/22/2019 Care Plan: COMPLETE CBC W/AUTO DIFF WBC LOINC : 72411-6 Pending 09/22/2019 Appointment: Bhavna Escalante [address] [facility] [address] [place] pt. feeling better and still had [...] : K57.32 08/26/2019 Appointment: Farhat Daily WPtel: [address] [place], [place] [phone] ACUTE ILLNESS 08/26/2019 Appointment: Farhat Daily WPtel: [address] [place], [place] [id number] originally 4 mo follow up CANCELED 2018 Visit Diagnosis Plan: Clostridium difficile colitis Di scussion: Vancomycin daily for another week then 125mg every 3 days for 1 month then stop Fwup in September ICD-9 : 008.45 ICD-10 : A04.72 05/07/2019 Appointment: Farhat Daily WPtel: [address] [place], [place] [id number] FOLLOW UP 05/07/2019 Visit Diagnosis Plan: Edema [...] : A04.72 04/23/2019 Appointment: Farhat Daily WPtel: [address] [place], [place] [phone] Hospital Follow Up 04/23/2019 Appointment: Bhavna Escalante [address] [facility] CANCELED 04/15/2019 Visit Diagnosis Plan: Left lower quadrant pain Discuss ion: will start with abdominal xray to rule out acute obstruction/constipation. if no acute findings, will treat as diverticulitis due to patient's past history. ICD-9 : 789.04 ICD-10 : R10.32 03/27/2019 App[facility]ment: [facility]hav[facility] Escalante [address] [id number] 03/27/2019 Visit Diagnosis Plan: Acute kidney failure, unspecifie d Discussion: Was given Meloxicam at urgent care--discussed no NSAIDs, hydrate, repeat Chem 7 in 1 week ICD-9 : 584.9 ICD-10 : N17.9 03/18/2019 Appointment: Farhat Daily WPtel: [address] [place] [address] [place] ACUTE ILLNESS 03/18/2019 Visit Diagnosis Plan: Abdominal distension (gaseous) D iscussion: Trial of Zenpep q AC ICD-9 : 787.3 ICD-10 : R14.0 02/12/2019 Visit Diagnosis Plan: Essential (primary) hypertension Discussion: Stable ICD-9 : 401.9 ICD-10 : I10 02/12/2019 Visit Diagnosis Plan: Chronic atrial fibrillation Disc ussion: Following routinely with Cardiology ICD-9 : 427.31 ICD-10 : I48.2 02/12/2019 Appointment: Farhat Daily WPtel: [facility] [place] [address] [place] FOLLOW UP 02/12/2019 Appointment: Bhavna Escalante [address] [place], [place] [address]a [place] [address] [place] Canceled per guillermina. sending for mri [...] ICD-10 : M54.5 12/25/2018 Appointment: Bhavna Escalante [address] [place], [place] [address] [address] ACUTE ILLNESS 12/25/2018 Visit Diagnosis Plan: [...] M54.5 12/12/2018 Appointment: Bhavna Escalante [address] [place] [id number] ACUTE ILLNESS 12/12/2018 Patient Education: cyclobenzaprine- [employer] Coupon [id number] https://www.[employer]/samplemd/resources/getResource/61/mx1074r4-p840-1v4k-g3 Completed 12/12/2018 Appointment: Bhavna Escalante [address] [place], [place] [id number] [place] CANCELED 12/06/2018 Visit Diagnosis Plan: Chronic [...] : R53.83 10/10/2018 Appointment: Farhat Daily WPtel: [address] [place] [address] [place] FOLLOW UP 10/10/2018 Visit Diagnosis Plan: [...] : I50.43 08/27/2018 Appointment: Farhat Daily WPtel: [address] [place] [address] [place] FOLLOW UP 08/27/2018 Visit Diagnosis Plan: [...] ICD-10 : I48.2 08/13/2018 Visit Diagnosis Plan: alf (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 Discussion: Increase Coumadin to 5mg po daily and repeat PT/INR in 2 weeks ICD-9 : V58.61 ICD-10 : Z79.01 08/13/2018 Appointment: Farhat Daily WPtel[phone] [facility] FO[facility] [place] 08/13/2018 Patient Education: bumetanide- [employer] Coupon [id number] https://www.[employer]/resources/getResource/61/8si39m56-3zz0-9m16-aw Completed 08/13/2018 Patient Education: levothyroxine- [employer] Coupon [phone] https://www.[employer]/resources/getResource/61/0480902j-0367-1e86-vx Completed 08/13/2018 Patient Education: warfarin- [employer] Coupon [id number] https://www.[employer]/resources/getResource/61/42309743-bk62-78c6-0f Completed 08/13/2018 Patient Education: pantoprazole- [employer] Coupon [phone] https://www.[employer]/resources/getResource/61/v8118y38-99o3-78zu-6w Completed 08/13/2018 Patient Education: spironolactone- [employer] Coupon [phone] https://www.[employer]/resources/getResource/61/0lw346y1-q009-8343-hp Completed 08/13/2018 Visit Diagnosis Plan: Anemia, unspecified [...] : I50.43 07/10/2018 Appointment: Farhat Daily WPtel: [facility]8 [facility] 2nd LM FOLLOW UP 07/10/2018 Visit Diagnosis [...] : I48.2 05/06/2018 Appointment: Farhat Daily WPtel: [facility]8 [facility] FOLLOW UP 05/06/2018 Visit Diagnosis Plan: Generalized [...] ICD-10 : R60.0 04/17/2018 Appointment: Bhavna Escalante [address] [place] [address] ACUTE ILLNESS 04/17/2018 Patient Education: Patient Medication Summary Completed 04/17/2018 Care Plan: CT ABDOMEN W/O & W/DYE LOINC : 79949-8 Pending 04/17/2018 Care Plan: CT PELVIS W/O & W/DYE LOINC : 51762-2 Pending 04/17/2018 Appointment: Farhat Daily WPtel[phone] [facility] [place] CANCELED 04/10/2018 Visit Diagnosis Plan: Other [...] : 780.79 ICD-10 : R53.83 03/26/2018 Appointment: Farhat Daily WPtel[phone] [facility] ER Follow UP 03/26/2018 Patient Education: Patient [...] ICD-10 : R31.9 03/15/2018 Appointment: Bhavna Escalante [address] [place] [address] ACUTE ILLNESS 03/15/2018 Patient Education: Patient Medication Summary Completed 03/15/2018 Visit Diagnosis Plan: Primary insomnia Discussion: Tri al of elavil 10mg po q HS ICD-9 : 780.52 ICD-10 : F51.01 02/26/2018 Visit Diagnosis Plan: Functional dyspepsia Discussion: Increase protonix to 40mg po BID Follow Up: 1 months ICD-9 : 536.8 ICD-10 : K30 02/26/2018 Appointment: Farhat Daily WPtel: [address] [place] [address] WELCOME TO MEDICARE 02/26/2018 Patient Education: Patient Medication Summary Completed 02/26/2018 Referral: Song Noonan WPtel: [address] [place] [address] [place] Referral Initiated 02/19/2018 Appointment: Farhat Daily WPtel: [address] [place] [address] [place] LAB 02/06/2018 Patient Education: Patient Medication Summary Completed 02/06/2018 Appointment: Farhat Daily WPtel: [address] [place] [address] [place] CANCELED 02/01/2018 Care Plan: US EXAM ABDOM COMPLETE liver LOINC : 37066-6 Pending 01/31/2018 Visit Diagnosis Plan: Essential (primary) [...] ICD-10 : R53.83 01/30/2018 Visit Diagnosis Plan: alf (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 Discussion: instructed [...] ICD-10 : G47.09 01/30/2018 Appointment: Bhavna Escalante [address] [place] [address] NEW PATIENT 01/30/2018 Patient Education: Patient Medication Summary Completed 01/30/2018 Instructions No Instructions Medical Equipment No Medical Equipment data Health Concerns Section Health Concerns data not found Goals Section Goals data not found Interventions Section Interventions data not found Health Status Evaluations/Outcomes Section Health Status Evaluations/Outcomes data not found Advance Directives No Advance Directive data
--- OUTSIDE RECORDS SUMMARY | 2020-02-10 13:59 | XMS REPORT | CCD ---
Author Author Riana Escalante Organization [facility] Address [address] [place] [address] Phone Unavailable Care Team Providers Care Vehicle Cost Engineer Name Role Phone PP Unavailable CCM Unavailable Summary Purpose Interface Exchange Insurance Providers Payer name Policy type / Coverage type Covered constitution party ID Effective Begin Date Effective End Date WPS MEDIC[place] PART [place] Medicare Part B [id number] 2017 Unknown Cigna Medicare Part B [id number] 2017 Unknown Family History Family History data not found Social History Social History Element Codes Description Effective Dates Tobacco history SNOMED CT: 253083480 Never smoker 01/30/[address]: 705774108 Never drinks alcohol 2017 Allergies, Adverse Reactions, [...] ICD-9: 401.9 ICD-10: I10 01/30/2018 Active intermediate manager (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 ICD-9: V58.6 [...] Instructions ondansetron 4 mg disintegrating tablet RxNorm: 970068 1 Tablet(s) Oral Q4H as needed for nausea 02/05/2020 No Stop Date Active Lomotil 2.5 mg-0.025 mg tablet RxNorm: 6385617 1 Tablet( s) Oral Every 6 hours as needed 02/05/2020 No Stop Date Active hydrocodone 5 mg-acetaminophen 325 mg tablet RxNorm: 237179 1 Tablet(s) Oral Every 6 hours as needed 02/05/2020 No Stop Date Active temazepam 15 mg capsule RxNorm: 360900 TAKE 1 TO 2 CAPS ULES BY MOUTH AT BEDTIME NEEDED FOR SLEEP 01/30/2020 01/30/2020 Inactive Augmentin 875 mg-125 mg tablet RxNorm: 822074 1 Tablet( s) Oral three times a day 01/30/2020 02/05/2020 Inactive temazepam 15 mg capsule RxNorm: 408203 TAKE 1 TO 2 CAPS ULES BY MOUTH AT BEDTIME NEEDED FOR SLEEP 01/30/2020 01/29/2020 Inactive Augmentin 875 mg-125 mg tablet RxNorm: 043245 1 Tablet( s) Oral three times a day 01/30/2020 01/29/2020 Inactive levothyroxine 25 mcg tablet RxNorm: 922545 1 Tablet(s) Oral QD 0707/201904/06/2020 Active potassium chloride ER 10 mEq capsule,extended release RxNorm : 955982 TAKE ONE CAPSULE BY MOUTH TWICE A DAY OF AND TAKE ONE CAPSULE BY MOUTH DAILY ON UD-EQ-ERI-SUN 12/23/2019 No Stop Date Active Colace 100 mg capsule RxNorm: 0372851 1 Capsule(s) Oral three ti mes a day 11/19/2019 12/19/2019 Inactive warfarin 5 mg tablet RxNorm: 553067 1 Tablet(s) Oral MW F and 1/2 tablet (2.5mg) [facility] kristie [facility] [place] 09/30/2019 12/29/2019 Inactive levothyroxine 25 mcg tablet RxNorm: 860704 TAKE ONE TABLET BY M OUTH DAILY 09/30/2019 01/06/2020 Inactive potassium chloride ER 10 mEq capsule,extended release RxNorm : 408198 1 Capsule(s) Oral two times a day on and 1 capsule Re-Cp-Dzm-Sun 09/26/2019 09/26/2019 Inactive vancomycin 125 mg capsule RxNorm: 125661 2 Capsule(s) Oral Q8H 08/0909/05/2019 Inactive warfarin 5 mg tablet RxNorm: 414930 1 Tablet(s) Oral MW F and 1/2 tablet (2.5mg) [facility] kristie [facility] 08/26/2019 09/29/2019 Inactive Colace 100 mg capsule RxNorm: 7625832 1 Capsule(s) Oral QD 08/26/1911/18/2019 Inactive levothyroxine 25 mcg tablet RxNorm: 941785 1 Tablet(s) PO QD 201909/29/2019 Inactive spironolactone 25 mg tablet RxNorm: 965561 TAKE 1 TABLET BY DOUGLAS TWICE DAILY 06/22/2019 09/19/2019 Inactive losartan 25 mg tablet RxNorm: 685269 TAKE 1 TABLET BY M OUTH ONCE DAILY IN THE MORNING 05/26/2019 No Stop Date Active bumetanide 1 mg tablet RxNorm: 045783 TAKE 1 TABLET BY MOUTH TWICE DAILY AT 6AM AND 6PM 05/23/2019 No Stop Date Active vancomycin 125 mg capsule RxNorm: 247103 1 Capsule(s) Oral Q3D 04/1008/25/2019 Inactive pantoprazole 40 mg tablet,delayed release RxNorm: 543411 1-2 Ta blet(s) Oral QD 04/23/2019 05/23/2019 Inactive potassium chloride ER 10 mEq capsule,extended release RxNorm : 197126 1 Capsule(s) Oral QD 04/23/2019 09/25/2019 Inactive warfarin 5 mg tablet RxNorm: 740536 Tablet(s) Oral Take 1 tablet (5mg) by mouth on and Sun then 1/2 tablet (2.5mg) on Sun, Sun, Th, Sat and Sun 04/23/2019 08/25/2019 Inactive temazepam 15 mg capsule RxNorm: 430881 TAKE 1 TO 2 CAPS ULES BY MOUTH AT BEDTIME NEEDED FOR SLEEP 04/08/2019 09/25/2019 Inactive Cipro 250 mg tablet RxNorm: 618167 1 Tablet(s) Oral two times a day 03/27/2019 04/03/2019 Inactive metronidazole 500 mg tablet RxNorm: 344054 1 Tablet(s) Oral thr ee times a day 03/27/2019 04/03/2019 Inactive bumetanide 1 mg tablet RxNorm: 990499 1 Tablet(s) PO BID (6am a nd 6pm) 02/13/2019 05/13/2019 Inactive levothyroxine 25 mcg tablet RxNorm: 257909 1 Tablet(s) PO QD 201807/13/2019 Inactive warfarin 5 mg tablet RxNorm: 842352 1 TABLET(S) PO TU , WED, THURS, SAT AND SUN AND 1/2 TABLET ON 02/04/2019 02/11/2019 Inactive Kendra ent requests 90 days supply warfarin 5 mg tablet RxNorm: 479590 1 TABLET(S) PO TUES , WED, THURS, SAT AND SUN AND 1/2 TABLET ON 02/03/2019 02/03/2019 Inactive Kendra ent requests 90 days supply levothyroxine 25 mcg tablet RxNorm: 106566 1 Tablet(s) PO QD 201802/03/2019 Inactive warfarin 5 mg tablet RxNorm: 419829 1 Tablet(s) PO Tu , Sun, Th, Sat and Sun and 1/2 tablet on Sun/Sun01/31/2019 02/02/2019 Inactive temazepam 15 mg capsule RxNorm: 224105 TAKE 1 TO 2 CAPS ULES BY MOUTH AT BEDTIME NEEDED FOR SLEEP 01/31/2019 04/07/2019 Inactive cyclobenzaprine 10 mg tablet RxNorm: 685129 1 Tablet(s) PO Q8H as needed 12/30/2018 09/25/2019 Inactive losartan 25 mg tablet RxNorm: 843661 1 Tablet(s) PO QAM 12/27/2018 Inactive Lidoderm 5 % topical patch RxNorm: 2497932 1 Application TOP Q12H and then off for 12 hours 12/25/2018 01/23/2019 Inactive Lidoderm 5 % topical patch RxNorm: 9837573 1 Application TOP Q12H and then off for 12 hours 12/25/2018 12/24/2018 Inactive cyclobenzaprine 5 mg tablet RxNorm: 751352 1 Tablet(s) PO Q8H a s needed 12/12/2018 12/24/2018 Inactive spironolactone 25 mg tablet RxNorm: 899283 1 Tablet(s) PO BID 09/2006/16/2019 Inactive change in directions to BID pantoprazole 40 mg tablet,delayed release RxNorm: 708650 1 Tabl et(s) PO QD 09/20/2018 04/22/2019 Inactive Patient requests 9 0 days supply spironolactone 25 mg tablet RxNorm: 882795 1 Tablet(s) PO BID 08/2609/19/2018 Inactive change in directions to BID pantoprazole 40 mg tablet,delayed release RxNorm: 915628 1 Tabl et(s) PO QD 08/15/2018 09/19/2018 Inactive Patient requests 9 0 days supply carvedilol 6.25 mg tablet RxNorm: 057579 1 Tablet(s) PO BID 019 02/08/2019 Inactive pantoprazole 40 mg tablet,delayed release RxNorm: 909339 1 Tablet(s) PO QD 1 TABLET(S) PO BID 08/13/2018 08/15/2018 Inactive Patient reque sts 90 days supply bumetanide 1 mg tablet RxNorm: 648481 1 Tablet(s) PO BID (6am a nd 6pm) 08/13/2018 02/08/2019 Inactive bumetanide 0.5 mg tablet RxNorm: 736619 1 Tablet(s) PO QPM three days a week--Sunday, Sun, Sunday instead of 1mg dose in evening 08/13/201812/2018 Inactive levothyroxine 25 mcg tablet RxNorm: 039589 1 Tablet(s) PO QD 201801/30/2019 Inactive spironolactone 25 mg tablet RxNorm: 723273 1 Tablet(s) PO QD 201808/25/2018 Inactive losartan 25 mg tablet RxNorm: 156680 1 Tablet(s) PO QAM 08/13/2018 Inactive warfarin 5 mg tablet RxNorm: 629112 1 Tablet(s) PO QD 08/13/201808/09 Inactive pantoprazole 40 mg tablet,delayed release RxNorm: 312157 1 TABL ET(S) PO BID 08/02/2018 08/12/2018 Inactive Patient requests 9 0 days supply temazepam 15 mg capsule RxNorm: 227308 1-2 Capsule(s) P O QHS as needed for sleep 2018 01/31/2019 Inactive Restoril 15 mg capsule RxNorm: 666763 1-2 Capsule(s) PO QHS as needed for sleep 06/04/2018 08/12/2018 Inactive potassium chloride ER 10 mEq capsule,extended release RxNorm : 972860 2 CAPSULE(S) PO QD 05/07/2018 08/04/2018 Inactive Patient reque sts 90 days supply temazepam 22.5 mg capsule RxNorm: 061977 1 Capsule(s) P O QHS as needed for sleep 05/06/2018 08/12/2018 Inactive potassium chloride ER 10 mEq capsule,extended release RxNorm : 660093 2 Capsule(s) PO QD 05/06/2018 05/06/2018 Inactive ropinirole 1 mg tablet RxNorm: 266525 1 TABLET(S) PO QHS FOR RE STLESS LEGS 03/27/2018 04/25/2018 Inactive Patient requests 9 0 days supply ropinirole 1 mg tablet RxNorm: 888289 1 Tablet(s) PO QHS for re stless legs 03/26/2018 03/26/2018 Inactive cefdinir 300 mg capsule RxNorm: 627350 1 Capsule(s) PO BID 03/26/20 18 03/30/2018 Inactive temazepam 15 mg capsule RxNorm: 549922 1 Capsule(s) PO QHS as neede d 03/20/2018 03/25/2018 Inactive Lunesta 3 mg tablet RxNorm: 925678 1 Tablet(s) PO QHS as needed for sleep 03/04/2018 03/19/2018 Inactive amitriptyline 10 mg tablet RxNorm: 014644 1 Tablet(s) PO QHS fo r sleep 02/26/2018 03/03/2018 Inactive escitalopram 20 mg tablet RxNorm: 812399 1 Tablet(s) PO QHS 018 08/12/2018 Inactive pantoprazole 40 mg tablet,delayed release RxNorm: 078121 1 Tabl et(s) PO BID 02/26/2018 04/26/2018 Inactive Coumadin 2.5 mg tablet RxNorm: 578804 1 Tablet(s) PO MWF 02/18/2018 0 07/22/2018 Inactive amiodarone 200 mg tablet RxNorm: 389809 1 Tablet(s) PO QD No Start Da te Active colestipol 1 gram tablet RxNorm: 9201892 1 Tablet(s) PO BID No Start Date Active pantoprazole 40 mg tablet,delayed release RxNorm: 285983 1 Tabl et(s) PO QD No Start Date Active pantoprazole 40 mg tablet,delayed release RxNorm: 870284 1 Tabl et(s) PO QD No Start Date 02/25/2018 Inactive bumetanide 1 mg tablet RxNorm: 325573 1 Tablet(s) PO BID (6am a nd 6pm) No Start Date 08/12/2018 Inactive potassium chloride ER 10 mEq tablet,extended release RxNorm: 158130 1 Tablet(s) PO QD No Start Date 02/11/2019 Inactive levothyroxine 25 mcg tablet RxNorm: 023469 1 Tablet(s) PO QD No Sta rt Date 08/12/2018 Inactive spironolactone 25 mg tablet RxNorm: 051666 1 Tablet(s) PO QD No Sta rt Date 08/12/2018 Inactive warfarin 5 mg tablet RxNorm: 125384 1 Tablet(s) PO MWF No Start Date 08/12/2018 Inactive warfarin 5 mg tablet RxNorm: 010735 1 Tablet(s) PO Tu , Sun, , Sat and Sun then 1/2 tablet (2.5mg) on Mon & Fri No Start Date 08/12/2018 Inactive losartan 25 mg tablet RxNorm: 013719 1 Tablet(s) PO QAM No Start Da te 08/12/2018 Inactive carvedilol 6.25 mg tablet RxNorm: 795161 1 Tablet(s) PO BID No Star t Date 08/12/2018 Inactive warfarin 2.5 mg tablet RxNorm: 903521 1 Tablet(s) PO , Thur s, Sat and Sun No Start Date 08/12/2018 Inactive Coumadin 2.5 mg tablet RxNorm: 390774 Tablet(s) Mon Sun and Sun PO No Start Date 02/17/2018 Inactive Children's Multivitamin with Iron tablet RxNorm: 1 Table t(s) PO QD No Start Date 04/22/2019 Inactive potassium chloride ER 20 mEq tablet,extended release(p art/cryst) RxNorm: 8941249 2 Tablet(s) PO QD No Start Date 05/05/2018 Inactive Coumadin 5 mg tablet RxNorm: 466142 Tablet(s) PO No Start Date 2017 Inactive mexiletine 200 mg capsule RxNorm: 7573289 1 Capsule(s) PO BID No St art Date 03/25/2018 Inactive ferrous sulfate 325 mg (65 mg iron) tablet RxNorm: 423678 1 Tab let(s) PO QD No Start Date 07/22/2018 Inactive cyclobenzaprine 10 mg tablet RxNorm: 747260 1 Tablet(s) PO Q8H as needed No Start Date 12/29/2018 Inactive potassium chloride ER 10 mEq capsule,extended release RxNorm : 550383 2 Capsule(s) PO QD No Start Date 12/11/2018 Inactive Coumadin 5 mg tablet RxNorm: 965753 1 Tablet(s) PO Tues, Thurs, Sat and Sun No Start Date 07/22/2018 Inactive Restoril 15 mg capsule RxNorm: 411505 1-2 Capsule(s) PO QHS as needed for sleep No Start Date 05/05/2018 Inactive metoprolol succinate ER 25 mg tablet,extended release 24 hr RxNorm: 280641 1 Tablet(s) PO QD No Start Date 08/12/2018 Inactive Entresto 24 mg-26 mg tablet RxNorm: 1028962 1 Tablet(s) PO BID No S tart Date 08/12/2018 Inactive warfarin 5 mg tablet RxNorm: 342690 1 Tablet(s) PO , Sun, , Sun and Sun and 1/2 tablet on Sun/Sun No Start Date 01/30/2019 Inactive amiodarone 200 mg tablet RxNorm: 642992 2 Tablet(s) PO BID No Start Date 10/09/2018 Inactive furosemide 20 mg tablet RxNorm: 450472 1 Tablet(s) PO QD No Start D ate 08/12/2018 Inactive amiodarone 200 mg tablet RxNorm: 871291 1 Tablet(s) PO BID No Start Date 08/26/2018 Inactive atorvastatin 40 mg tablet RxNorm: 023401 1 Tablet(s) PO QD No Start Date 08/12/2018 Inactive warfarin 5 mg tablet RxNorm: 688169 1/2 Tablet(s) PO on Sun, Sun, Sun, Sun then 1 tablet on Sun, , Sat No Start Date 04/22/2019 Inactive Medication Administered No Medication Administered data Immunizations Vaccine Codes Date Status Hepatitis A CVX: 83 11/20/2019 Pneumovax CVX: 33 05/14/2019 Hepatitis A CVX: 83 03/25/2019 Influenza CVX: 135 03/25/2019 Results Observation Observation Code Item Item Code Result Date S ervice Location UA W/MICR 56101 UA Urine Appear Normal 02/06/2018 Unk nown UA W/MICR 56652 UA Protein 3+ 02/06/2018 Unknown UA W/MICR 33827 UA Hemoglobin Trace 02/06/2018 Unkno wn UA W/MICR 28278 UA Glucose Negative 02/06/2018 Unknown UA W/MICR 26184 UA Ketones Negative 02/06/2018 Unknown UA W/MICR 10033 UA pH 5.5 02/06/2018 Unknown UA W/MICR 40320 U Spec Center 1.025 02/06/2018 Unkn own UA W/MICR 04605 UA Bilirubin Negative 02/06/2018 Unknow n UA W/MICR 62472 UA Leuk Esteras Trace 02/06/2018 Unk nown UA W/MICR 00927 UA Nitrite NEG 02/06/2018 Unknown UA W/MICR 12987 UA WBC/hpf 11-25 02/06/2018 Unknown UA W/MICR 07130 UA RBC hpf 0-5 02/06/2018 Unknown UA W/MICR 06267 UA Hyaline Cast 16-25 02/06/2018 Unk nown UA W/MICR 78659 UA Squam Epi Few 02/06/2018 Unknow n Procedures Procedure Codes Date URINALYSIS NONAUTO W/O SCOPE CPT-4: 89575 01/30/2020 URINE CULTURE/ COLONY COUNT CPT-4: 05130 01/30/2020 URINALYSIS NONAUTO W/O SCOPE CPT-4: 44816 11/19/2019 INITIAL PREVENTIVE EXAM CPT-4: G0402 09/25/2019 URINALYSIS NONAUTO W/O SCOPE CPT-4: 33504 03/18/2019 URINE CULTURE/ COLONY COUNT CPT-4: 30470 03/18/2019 URINALYSIS NONAUTO W/O SCOPE CPT-4: 53152 12/12/2018 URINE CULTURE/ COLONY COUNT CPT-4: 52642 03/26/2018 URINALYSIS NONAUTO W/O SCOPE CPT-4: 49316 03/15/2018 INITIAL PREVENTIVE EXAM CPT-4: G0402 02/26/2018 URINALYSIS NONAUTO W/O SCOPE CPT-4: 68191 02/06/2018 URINE CULTURE/ COLONY COUNT CPT-4: 78836 02/06/2018 UA W/MICR CPT-4: 51373 02/06/2018 CUR TOBACCO NON-USER CPT-4: G8457 01/30/2018 REPAIR BLADDER & VAGINA CPT-4: 32450 01/06/2017 REPAIR OF RECTOCELE CPT-4: 18241 01/06/2017 BREAST SURGERY PROCEDURE CPT-4: 86651 Unknown LAPARO CHOLECYSTECTOMY/EXPLR CPT-4: 34150 Unknown HYSTERECTOMY/REVISE VAGINA CPT-4: 15219 Unknown Vital Signs Date Vital 02/05/2020 Blood [...] 1: 106/58 Code: 8480-6 BMI: 26.3 Code: 46402-8 Heart Rate 1: 72 bpm Height: 4'10" Respiratory Rate: 20 bpm SpO2: 97% Tempera ture: 36.6 (C) / 97.8 (F) Weight: 128 lbs 07/10/2018 Blood Pressure 1: 122/70 Code: 8480-6 BMI: 28.6 Code: 10039-2 Heart Rate 1: 80 bpm Height: 4'10" Respiratory Rate: 20 bpm SpO2: 96% Tempera ture: 36.9 (C) / 98.4 (F) Weight: 139 lbs 05/06/2018 Blood Pressure 1: 112/54 Code: 8480-6 BMI: 27.5 Code: 69392-4 Heart Rate 1: 80 bpm Height: 4'10" [...] 1: 146/80 Code: 8480-6 BMI: 30.0 Code: 52198-0 Heart Rate 1: 76 bpm Height: 4'10" Respiratory Rate: 20 bpm SpO2: 97% Tempera ture: 36.7 (C) / 98.1 (F) Weight: 146 lbs 02/26/2018 Blood Pressure 1: 126/80 Code: 8480-6 BMI: 29.6 Code: 21264-6 Heart Rate 1: 80 bpm Height: 4'10" Respiratory Rate: 18 bpm SpO2: 96% Tempera ture: 37.0 (C) / 98.6 (F) Weight: 144 lbs 01/30/2018 Blood Pressure 1: 120/78 Code: 8480-6 BMI: 29.6 Code: 43867-2 Heart Rate 1: 84 bpm Height: 4'10" [...] Care Encounters Encounter Performer Location Codes Date ([id number]) OFFICE/OUTPATIENT VISIT EST Diagnosis: Pain in right foot[ICD10: M79.671] Bhavna DAILY [facility] CPT-4: 03778 02/05/2020 ([id number]) OFFICE/OUTPATIENT VISIT EST Diagnosis: Urinary tract infection, site not specified[ICD10: N39.0] Diagnosis: Left lower quadrant pain[ICD10: R10.32] Bhavna DAILY [facility] CPT-4: 54495 01/30/2020 ([id number]) OFFICE/OUTPATIENT VISIT EST Diagnosis: Hypotension[ICD10: I95.9] Diagnosis: Chronic kidney disease[ICD10: N18.9] Farhat DAILY [facility] CPT-4: 46133 11/24/2019 ([id number]) OFFICE/OUTPATIENT VISIT EST Diagnosis: Hypotension[ICD10: I95.9] Diagnosis: Dizziness and giddiness[ICD10: R42] Diagnosis: Polyuria[ICD10: R35.8] Farhat Landeros [facility] CPT-4: 65208 11/19/2019 ([id number]) OFFICE/OUTPATIENT VISIT EST Diagnosis: Sigmoid diverticulitis[ICD10: K57.32] Farhat DAILY [facility] CPT-4: 59432 08/26/2019 ([id number]) OFFICE/OUTPATIENT VISIT EST Diagnosis: Clostridium difficile colitis[ICD10: A04.72] Farhat DAILY [facility] CPT-4: 90251 05/07/2019 ([id number]) OFFICE/OUTPATIENT VISIT EST Diagnosis: Clostridium difficile colitis[ICD10: A04.72] Diagnosis: Edema[ICD10: R60.9] Farhat DAILY [facility] CPT-4: 94934 04/23/2019 ([id number]) OFFICE/OUTPATIENT VISIT EST Diagnosis: Constipation[ICD10: K59.00] Diagnosis: Left lower quadrant pain[ICD10: R10.32] Bhavna DAILY [facility] CPT-4: 40885 03/27/2019 ([id number]) OFFICE/OUTPATIENT VISIT EST Diagnosis: Acute kidney failure, unspecified[ICD10: N17.9] Farhat DAILY [facility] CPT-4: 94984 03/18/2019 ([id number]) OFFICE/OUTPATIENT VISIT EST Diagnosis: Essential (primary) hypertension[ICD10: I10] Diagnosis: Chronic atrial fibrillation[ICD10: I48.2] Diagnosis: Mixed hyperlipidemia[ICD10: E78.2] Diagnosis: Other fatigue[ICD10: R53.83] Diagnosis: Abdominal distension (gaseous)[ICD10: R14.0] Farhat DAILY [facility] CPT-4: 31494 02/12/2019 ([id number]) OFFICE/OUTPATIENT VISIT EST Diagnosis: Low back pain[ICD10: M54.5] Bhavna DOUGHERTY S. O RENDER [facility] CPT-4: 76726 12/25/2018 ([id number]) OFFICE/OUTPATIENT VISIT EST Diagnosis: Low back pain[ICD10: M54.5] Bhavna DOUGHERTY S. O RENDER [facility] CPT-4: 69220 12/12/2018 ([id number]) OFFICE/OUTPATIENT VISIT EST Diagnosis: Anemia, unspecified[ICD10: D64.9] Diagnosis: Chronic atrial fibrillation[ICD10: I48.2] Diagnosis: Other fatigue[ICD10: R53.83] [facility] 48101 10/10/2018 ([id number]) OFFICE/OUTPATIENT VISIT EST Diagnosis: Acute on chronic combined systolic (congestive) and diastolic (congestive) heart failure[ICD10: I50.43] Diagnosis: Chronic atrial fibrillation[ICD10: I48.2] Farhat DAILY [facility] CPT-4: 87930 08/27/2018 ([id number]) OFFICE/OUTPATIENT VISIT EST Diagnosis: Chronic atrial fibrillation[ICD10: I48.2] 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] Diagnosis: intermediate manager (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[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] Farhat DAILY [facility] CPT-4: 13420 08/13/2018 ([id number]) OFFICE/OUTPATIENT VISIT EST Diagnosis: Acute on chronic combined systolic (congestive) and diastolic (congestive) heart failure[ICD10: I50.43] Diagnosis: Essential (primary) hypertension[ICD10: I10] Diagnosis: Anemia, unspecified[ICD10: D64.9] Farhat DAILY [facility] CPT-4: 47371 07/10/2018 ([id number]) OFFICE/OUTPATIENT VISIT EST Diagnosis: Chronic atrial fibrillation[ICD10: I48.2] Diagnosis: Acute on chronic combined systolic (congestive) and diastolic (congestive) heart failure[ICD10: I50.43] Diagnosis: Localized edema[ICD10: R60.0] Farhat DAILY [facility] CPT-4: 71906 05/06/2018 ([id number]) OFFICE/OUTPATIENT VISIT EST Diagnosis: Generalized abdominal pain[ICD10: R10.84] Diagnosis: Pelvic and perineal pain[ICD10: R10.2] Diagnosis: Localized edema[ICD10: R60.0] Bhavna DAILY [facility] CPT-4: 36152 04/17/2018 ([id number]) OFFICE/OUTPATIENT VISIT EST Diagnosis: Urinary tract infection, site not specified[ICD10: N39.0] Diagnosis: Other insomnia[ICD10: G47.09] Diagnosis: Other fatigue[ICD10: R53.83] Diagnosis: Other forms of dyspnea[ICD10: R06.09] Diagnosis: Chronic atrial fibrillation[ICD10: I48.2] Diagnosis: Restless legs syndrome[ICD10: G25.81] Farhat DAILY [facility] CPT-4: 11119 03/26/2018 ([id number]) OFFICE/OUTPATIENT VISIT EST Diagnosis: Altered mental status, unspecified[ICD10: R41.82] Diagnosis: intermediate manager (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[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] Diagnosis: Hematuria, unspecified[ICD10: R31.9] Bhavna DAILY [facility] CPT-4: 44046 03/15/2018 ([id number]) NURSE/OUTPATIENT VISIT EST Diagnosis: Urinary tract infection, site not specified[ICD10: N39.0] Farhat DAILY [facility] CPT-4: 71077 02/06/2018 OFFICE/OUTPATIENT VISIT NEW Diagnosis: USP (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[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] Diagnosis: Essential (primary) hypertension[ICD10: I10] Diagnosis: Mixed hyperlipidemia[ICD10: E78.2] Diagnosis: Other fatigue[ICD10: R53.83] Diagnosis: Cardiac arrhythmia, unspecified[ICD10: I49.9] Diagnosis: Generalized abdominal pain[ICD10: R10.84] Diagnosis: Urinary tract infection, site not specified[ICD10: N39.0] Diagnosis: Other insomnia[ICD10: G47.09] Bhavna DAILY [facility] CPT-4: 13593 01/30/2018 Plan of Care Planned Activity Notes [...] M79.671 02/05/2020 Patient Education: ondansetron- [employer] Coupon [phone] [email or web address]/[email or web address] Completed 02/05/2020 Visit Diagnosis Plan: Left lower [...] ICD-10 : R10.32 01/30/2020 Appointment: Bhavna Escalante [address] [place], [place] [id number] ACUTE ILLNESS 01/30/2020 Patient Education: temazepam- [employer] Coupon [phone] https://[email or web address]/samplemd/resources/getResource/61/[email or web address] Completed 01/30/2020 Patient Education: temazepam- [employer] Coupon [phone] [email or web address]://[email or web address]/samplemd/resources/getResource/61/[email or web address]-[email or web address] Completed 01/30/2020 Visit Diagnosis Plan: Chronic kidney [...] I95.9 11/24/2019 [facility]ment[facility] Farhat [facility] [address] [facility] [facility] 11/24/2019 Visit Diagnosis Plan: Hypotension Discussion: BP today is okay ICD-9 : 458.9 ICD-10 : I95.9 11/19/2019 Visit Diagnosis Plan: Polyuria Discussion: UA normal ICD-9 : 788.42 ICD-10 : R35.8 11/19/2019 Visit Diagnosis Plan: Dizziness and giddiness Discussi on: Check lab--CBC, CMP, TSH, PT/INR now ICD-9 : 780.4 ICD-10 : R42 11/19/2019 Appointment: Farhat Daily WPtel: [address] [facility] ACUTE ILLNESS 11/19/2019 Patient Education: Colace- [employer] Coupon [id number] [email or web address]/[email or web address]/resources/getResource/61/[email or web address] Completed 11/19/2019 Visit Diagnosis Plan: Encounter for gene [facility] adult medical examination with abnormal findings Discussion: [...] : I10 09/25/2019 Appointment: Farhat Daily [facility]Ptel[facility] [facility] Well Visit 09/25/2019 Care Plan: COMPREHEN METABOLIC [place] : 84992-6 Pending 09/22/2019 Care Plan: COMPLETE CBC W/AUTO DIFF WBC LOINC : 66740-9 Pending 09/22/2019 Appointment: Bhavna Escalante [address] [facility] [place] pt. feeling better and still had [...] : K57.32 08/26/2019 Appointment: Farhat Daily WPtel: [address] [place], [place] [id number] ACUTE ILLNESS 08/26/2019 Appointment: Farhat Daiyl WPtel: [address] [place], [place] [id number] originally 4 mo follow up CANCELED 2018 Visit Diagnosis Plan: Clostridium difficile colitis Di scussion: Vancomycin daily for another week then 125mg every 3 days for 1 month then stop Fwup in September ICD-9 : 008.45 ICD-10 : A04.72 05/07/2019 Appointment: Farhat Daily WPtel: [address] [place], [place] [id number] FOLLOW UP 05/07/2019 Visit Diagnosis Plan: [...] : A04.72 04/23/2019 Appointment: Farhat Daily WPtel: [address] [place], [place] [id number] Hospital Follow Up 04/23/2019 Appointment: Bhavna Escalante [address] [facility] CANCELED 04/15/2019 Visit Diagnosis Plan: Left lower quadrant pain Discuss ion: will start with abdominal xray to rule out acute obstruction/constipation. if no acute findings, will treat as diverticulitis due to patient's past history. ICD-9 : 789.04 ICD-10 : R10.32 03/27/2019 App[facility]ment[facility]ante [address] [id number] [facility] 03/27/2019 Visit Diagnosis Plan: Acute kidney failure, unspecifie d Discussion: Was given Meloxicam at urgent care--discussed no NSAIDs, hydrate, repeat Chem 7 in 1 week ICD-9 : 584.9 ICD-10 : N17.9 03/18/2019 Appointment: Farhat Daily WPtel: [address] [place] [address] [place] ACUTE ILLNESS 03/18/2019 Visit Diagnosis Plan: Abdominal distension (gaseous) D iscussion: Trial of Zenpep q AC ICD-9 : 787.3 ICD-10 : R14.0 02/12/2019 Visit Diagnosis Plan: Essential (primary) hypertension Discussion: Stable ICD-9 : 401.9 ICD-10 : I10 02/12/2019 Visit Diagnosis Plan: Chronic atrial fibrillation Disc ussion: Following routinely with Cardiology ICD-9 : 427.31 ICD-10 : I48.2 02/12/2019 Appointment: Farhat Daily WPtel: [facility] [place] [address] [place] FOLLOW UP 02/12/2019 Appointment: Bhavna Escalante [address] [place], [place] [address]a [place] [address] [place] Canceled per guillermina. sending for mri [...] ICD-10 : M54.5 12/25/2018 Appointment: Bhavna Escalante [address] [place], [place] [address] [address] ACUTE ILLNESS 12/25/2018 Visit Diagnosis Plan: [...] M54.5 12/12/2018 Appointment: Bhavna Escalante [address] [place] [address] ACUTE ILLNESS 12/12/2018 Patient Education: cyclobenzaprine- [employer] Coupon [id number] https://www.[employer].Qumu/samplemd/resources/getResource/61/zg7096z1-i107-5t4l-e6 Completed 12/12/2018 Appointment: Bhavna Escalante [address] [place], [place] [id number] [place] CANCELED 12/06/2018 Visit Diagnosis Plan: Chronic [...] : R53.83 10/10/2018 Appointment: Farhat Daily WPtel: [address] [place] [address] US FOLLOW UP 10/10/2018 Visit Diagnosis Plan: [...] : I50.43 08/27/2018 Appointment: Farhat Daily WPtel: [address] [place] [address] US FOLLOW UP 08/27/2018 Visit Diagnosis Plan: [...] ICD-10 : I48.2 08/13/2018 Visit Diagnosis Plan: USP (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 Discussion: Increase Coumadin to 5mg po daily and repeat PT/INR in 2 weeks ICD-9 : V58.61 ICD-10 : Z79.01 08/13/2018 Appointment: Farhat Daily [facility]Ptel[facility] [phone] [facility] FO[facility] 08/13/2018 Patient Education: bumetanide- [employer] Coupon [id number] https://www.Starbelly.com/ThromboVision/resources/getResource/61/3rm91d50-1qn9-2d00-xq Completed 08/13/2018 Patient Education: levothyroxine- [employer] Coupon 56 [id number] https://www.Starbel[employer].com/Throm[employer]/resources/getResource/61/0741394o-1692-2j01-cv Completed 08/13/2018 Patient Education: warfarin- [employer] Coupon [id number] 1 https://www.Starbel[employer].com/[employer]rom[employer]/resources/getResource/61/49831896-ej22-95k8-0j Completed 08/13/2018 Patient Education: pantoprazole- [employer] Coupon [phone] https://www.Star[employer].com/[employer]/resources/getResource/61/n4176a42-46o6-17nk-2x Completed 08/13/2018 Patient Education: spironolactone- [employer] Coupon 5 [id number] https://www.Starbelly.com/Throm[employer]/resources/getResource/61/3wm223p7-l381-2716-nk Completed 08/13/2018 Visit Diagnosis Plan: Anemia, unspecified [...] : I50.43 07/10/2018 Appointment: Farhat Daily WPtel: [address] [place], [place] [phone] 2nd LM FOLLOW UP 07/10/2018 Visit Diagnosis [...] : I48.2 05/06/2018 Appointment: Farhat Daily WPtel: [facility] FOLLOW UP 05/06/2018 Visit Diagnosis Plan: [...] ICD-10 : R10.2 04/17/2018 Appointment: Bhavna Escalante [address] [place] [address] ACUTE ILLNESS 04/17/2018 Patient Education: Patient Medication Summary Completed 04/17/2018 Care Plan: CT ABDOMEN W/O & W/DYE LOINC : 66701-8 Pending 04/17/2018 Care Plan: CT PELVIS W/O & W/DYE LOINC : 54020-7 Pending 04/17/2018 [facility]ment[facility]el[facility] [phone] [facility] [place] CANCELED 04/10/2018 Visit Diagnosis Plan: Urinary [...] G47.09 03/26/2018 Appointment: Farhat [facility]Ptel[facility] [phone] [facility] [facility] Follow UP 03/26/2018 Patient Education: Patient [...] ICD-10 : R41.82 03/15/2018 Appointment: Bhavna Escalante [address] [place] [address] ACUTE ILLNESS 03/15/2018 Patient Education: Patient Medication Summary Completed 03/15/2018 Visit Diagnosis Plan: Primary insomnia Discussion: Tri al of elavil 10mg po q HS ICD-9 : 780.52 ICD-10 : F51.01 02/26/2018 Visit Diagnosis Plan: Functional dyspepsia Discussion: Increase protonix to 40mg po BID Follow Up: 1 months ICD-9 : 536.8 ICD-10 : K30 02/26/2018 Appointment: Farhat Daily WPtel: [address] [place] [address] WELCOME TO MEDICARE 02/26/2018 Patient Education: Patient Medication Summary Completed 02/26/2018 Referral: Song Noonan WPtel: [address] [place] [address] [place] Referral Initiated 02/19/2018 Appointment: Farhat Daily WPtel: [address] [place] [address] US LAB 02/06/2018 Patient Education: Patient Medication Summary Completed 02/06/2018 Appointment: Farhat Daily WPtel: [address] [place] [address] US CANCELED 02/01/2018 Care Plan: US EXAM ABDOM COMPLETE liver LOINC : 22060-9 Pending 01/31/2018 Visit Diagnosis Plan: Other fatigue [...] ICD-10 : I10 01/30/2018 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 informed her to take tylenol or remaining hydrocodone from surgery if pain develops. ICD-9 : V58.61 ICD-10 : Z79.01 01/30/2018 Appointment: Bhavna Escalante [address] [place] [address] NEW PATIENT 01/30/2018 Patient Education: Patient Medication Summary Completed 01/30/2018 Instructions No Instructions Medical Equipment No Medical Equipment data Health Concerns Section Health Concerns data not found Goals Section Goals data not found Interventions Section Interventions data not found Health Status Evaluations/Outcomes Section Health Status Evaluations/Outcomes data not found Advance Directives No Advance Directive data
--- OUTSIDE RECORDS SUMMARY | 2020-02-10 13:59 | XMS REPORT | CCD ---
Author Author Riana Escalante Organization [facility] DAILY [facility] Address [address] [place] [address] Phone Unavailable Care Team Providers Care Agricultural Science Professor Name Role Phone PP Unavailable CCM Unavailable Summary Purpose Interface Exchange Insurance Providers Payer name Policy type / Coverage type Covered democrat ID Effective Begin Date Effective End Date WPS MEDICARE PART B [place] Medicare Part B [id number] 2017 Unknown Cigna Medicare Part B [id number] 2017 Unknown Family History Family History data not found Social History Social History Element Codes Description Effective Dates Tobacco history SNOMED CT: 954826369 Never smoker 01/30/[address]: 956028928 Never drinks alcohol 2017 Allergies, Adverse Reactions, [...] hypertension ICD-9: 401.9 ICD-10: I10 01/30/2018 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 ICD-9: V58.6 1 [...] Instructions ondansetron 4 mg disintegrating tablet RxNorm: 221329 1 Tablet(s) Oral Q4H as needed for nausea 02/05/2020 No Stop Date Active Lomotil 2.5 mg-0.025 mg tablet RxNorm: 5087107 1 Tablet( s) Oral Every 6 hours as needed 02/05/2020 No Stop Date Active hydrocodone 5 mg-acetaminophen 325 mg tablet RxNorm: 833412 1 Tablet(s) Oral Every 6 hours as needed 02/05/2020 No Stop Date Active temazepam 15 mg capsule RxNorm: 178472 TAKE 1 TO 2 CAPS ULES BY MOUTH AT BEDTIME NEEDED FOR SLEEP 01/30/2020 01/30/2020 Inactive Augmentin 875 mg-125 mg tablet RxNorm: 038086 1 Tablet( s) Oral three times a day 01/30/2020 02/05/2020 Inactive temazepam 15 mg capsule RxNorm: 483995 TAKE 1 TO 2 CAPS ULES BY MOUTH AT BEDTIME NEEDED FOR SLEEP 01/30/2020 01/29/2020 Inactive Augmentin 875 mg-125 mg tablet RxNorm: 717064 1 Tablet( s) Oral three times a day 01/30/2020 01/29/2020 Inactive levothyroxine 25 mcg tablet RxNorm: 006806 1 Tablet(s) Oral QD 0707/201904/06/2020 Active potassium chloride ER 10 mEq capsule,extended release RxNorm : 904690 TAKE ONE CAPSULE BY MOUTH TWICE A DAY OF AND TAKE ONE CAPSULE BY MOUTH DAILY ON [id number] 12/23/2019 No Stop Date Active Colace 100 mg capsule RxNorm: 1178314 1 Capsule(s) Oral three ti mes a day 11/19/2019 12/19/2019 Inactive warfarin 5 mg tablet RxNorm: 976442 1 Tablet(s) Oral MW F and 1/2 tablet (2.5mg) [facility] kristie [facility] [place] 09/30/2019 12/29/2019 Inactive levothyroxine 25 mcg tablet RxNorm: 135982 TAKE ONE TABLET BY M OUTH DAILY 09/30/2019 01/06/2020 Inactive potassium chloride ER 10 mEq capsule,extended release RxNorm : 770431 1 Capsule(s) Oral two times a day on and 1 capsule [id number]-[id number] 09/26/2019 09/26/2019 Inactive vancomycin 125 mg capsule RxNorm: 343720 2 Capsule(s) Oral Q8H 08/0909/05/2019 Inactive warfarin 5 mg tablet RxNorm: 833686 1 Tablet(s) Oral MW F and 1/2 tablet (2.5mg) [facility] kristie [facility] 08/26/2019 09/29/2019 Inactive Colace 100 mg capsule RxNorm: 6829479 1 Capsule(s) Oral QD 08/26/1911/18/2019 Inactive levothyroxine 25 mcg tablet RxNorm: 961029 1 Tablet(s) PO QD 201909/29/2019 Inactive spironolactone 25 mg tablet RxNorm: 679623 TAKE 1 TABLET BY DOUGLAS TWICE DAILY 06/22/2019 09/19/2019 Inactive losartan 25 mg tablet RxNorm: 635302 TAKE 1 TABLET BY M OUTH ONCE DAILY IN THE MORNING 05/26/2019 No Stop Date Active bumetanide 1 mg tablet RxNorm: 490473 TAKE 1 TABLET BY MOUTH TWICE DAILY AT 6AM AND 6PM 05/23/2019 No Stop Date Active vancomycin 125 mg capsule RxNorm: 415223 1 Capsule(s) Oral Q3D 04/1008/25/2019 Inactive pantoprazole 40 mg tablet,delayed release RxNorm: 310376 1-2 Ta blet(s) Oral QD 04/23/2019 05/23/2019 Inactive potassium chloride ER 10 mEq capsule,extended release RxNorm : 462191 1 Capsule(s) Oral QD 04/23/2019 09/25/2019 Inactive warfarin 5 mg tablet RxNorm: 185574 Tablet(s) Oral Take 1 tablet (5mg) by mouth on and Sun then 1/2 tablet (2.5mg) on Sun, Sun, Th, Sat and Sun 04/23/2019 08/25/2019 Inactive temazepam 15 mg capsule RxNorm: 848136 TAKE 1 TO 2 CAPS ULES BY MOUTH AT BEDTIME NEEDED FOR SLEEP 04/08/2019 09/25/2019 Inactive Cipro 250 mg tablet RxNorm: 354065 1 Tablet(s) Oral two times a day 03/27/2019 04/03/2019 Inactive metronidazole 500 mg tablet RxNorm: 611582 1 Tablet(s) Oral thr ee times a day 03/27/2019 04/03/2019 Inactive bumetanide 1 mg tablet RxNorm: 407506 1 Tablet(s) PO BID (6am a nd 6pm) 02/13/2019 05/13/2019 Inactive levothyroxine 25 mcg tablet RxNorm: 114152 1 Tablet(s) PO QD 201807/13/2019 Inactive warfarin 5 mg tablet RxNorm: 916722 1 TABLET(S) PO TU , WED, THURS, SAT AND SUN AND 1/2 TABLET ON 02/04/2019 02/11/2019 Inactive Kendra ent requests 90 days supply warfarin 5 mg tablet RxNorm: 349902 1 TABLET(S) PO TUES , WED, THURS, SAT AND SUN AND 1/2 TABLET ON 02/03/2019 02/03/2019 Inactive Kendra ent requests 90 days supply levothyroxine 25 mcg tablet RxNorm: 130112 1 Tablet(s) PO QD 201802/03/2019 Inactive warfarin 5 mg tablet RxNorm: 431373 1 Tablet(s) PO Tu , Sun, Th, Sat and Sun and 1/2 tablet on Sun/Sun01/31/2019 02/02/2019 Inactive temazepam 15 mg capsule RxNorm: 956296 TAKE 1 TO 2 CAPS ULES BY MOUTH AT BEDTIME NEEDED FOR SLEEP 01/31/2019 04/07/2019 Inactive cyclobenzaprine 10 mg tablet RxNorm: 740553 1 Tablet(s) PO Q8H as needed 12/30/2018 09/25/2019 Inactive losartan 25 mg tablet RxNorm: 635783 1 Tablet(s) PO QAM 12/27/2018 Inactive Lidoderm 5 % topical patch RxNorm: 3883518 1 Application TOP Q12H and then off for 12 hours 12/25/2018 01/23/2019 Inactive Lidoderm 5 % topical patch RxNorm: 3614790 1 Application TOP Q12H and then off for 12 hours 12/25/2018 12/24/2018 Inactive cyclobenzaprine 5 mg tablet RxNorm: 757901 1 Tablet(s) PO Q8H a s needed 12/12/2018 12/24/2018 Inactive spironolactone 25 mg tablet RxNorm: 637686 1 Tablet(s) PO BID 09/2006/16/2019 Inactive change in directions to BID pantoprazole 40 mg tablet,delayed release RxNorm: 662559 1 Tabl et(s) PO QD 09/20/2018 04/22/2019 Inactive Patient requests 9 0 days supply spironolactone 25 mg tablet RxNorm: 090267 1 Tablet(s) PO BID 08/2609/19/2018 Inactive change in directions to BID pantoprazole 40 mg tablet,delayed release RxNorm: 000767 1 Tabl et(s) PO QD 08/15/2018 09/19/2018 Inactive Patient requests 9 0 days supply carvedilol 6.25 mg tablet RxNorm: 659393 1 Tablet(s) PO BID 019 02/08/2019 Inactive pantoprazole 40 mg tablet,delayed release RxNorm: 696146 1 Tablet(s) PO QD 1 TABLET(S) PO BID 08/13/2018 08/15/2018 Inactive Patient reque sts 90 days supply bumetanide 1 mg tablet RxNorm: 607599 1 Tablet(s) PO BID (6am a nd 6pm) 08/13/2018 02/08/2019 Inactive bumetanide 0.5 mg tablet RxNorm: 124336 1 Tablet(s) PO QPM three days a week--Sunday, Sun, Sunday instead of 1mg dose in evening 08/13/201812/2018 Inactive levothyroxine 25 mcg tablet RxNorm: 109259 1 Tablet(s) PO QD 201801/30/2019 Inactive spironolactone 25 mg tablet RxNorm: 199391 1 Tablet(s) PO QD 201808/25/2018 Inactive losartan 25 mg tablet RxNorm: 365723 1 Tablet(s) PO QAM 08/13/2018 Inactive warfarin 5 mg tablet RxNorm: 119338 1 Tablet(s) PO QD 08/13/201808/09 Inactive pantoprazole 40 mg tablet,delayed release RxNorm: 973894 1 TABL ET(S) PO BID 08/02/2018 08/12/2018 Inactive Patient requests 9 0 days supply temazepam 15 mg capsule RxNorm: 421649 1-2 Capsule(s) P O QHS as needed for sleep 2018 01/31/2019 Inactive Restoril 15 mg capsule RxNorm: 284319 1-2 Capsule(s) PO QHS as needed for sleep 06/04/2018 08/12/2018 Inactive potassium chloride ER 10 mEq capsule,extended release RxNorm : 021722 2 CAPSULE(S) PO QD 05/07/2018 08/04/2018 Inactive Patient reque sts 90 days supply temazepam 22.5 mg capsule RxNorm: 661044 1 Capsule(s) P O QHS as needed for sleep 05/06/2018 08/12/2018 Inactive potassium chloride ER 10 mEq capsule,extended release RxNorm : 525064 2 Capsule(s) PO QD 05/06/2018 05/06/2018 Inactive ropinirole 1 mg tablet RxNorm: 119847 1 TABLET(S) PO QHS FOR RE STLESS LEGS 03/27/2018 04/25/2018 Inactive Patient requests 9 0 days supply ropinirole 1 mg tablet RxNorm: 007636 1 Tablet(s) PO QHS for re stless legs 03/26/2018 03/26/2018 Inactive cefdinir 300 mg capsule RxNorm: 799951 1 Capsule(s) PO BID 03/26/20 18 03/30/2018 Inactive temazepam 15 mg capsule RxNorm: 533368 1 Capsule(s) PO QHS as neede d 03/20/2018 03/25/2018 Inactive Lunesta 3 mg tablet RxNorm: 029351 1 Tablet(s) PO QHS as needed for sleep 03/04/2018 03/19/2018 Inactive amitriptyline 10 mg tablet RxNorm: 139729 1 Tablet(s) PO QHS fo r sleep 02/26/2018 03/03/2018 Inactive escitalopram 20 mg tablet RxNorm: 103640 1 Tablet(s) PO QHS 018 08/12/2018 Inactive pantoprazole 40 mg tablet,delayed release RxNorm: 850835 1 Tabl et(s) PO BID 02/26/2018 04/26/2018 Inactive Coumadin 2.5 mg tablet RxNorm: 566570 1 Tablet(s) PO MWF 02/18/2018 0 07/22/2018 Inactive amiodarone 200 mg tablet RxNorm: 448024 1 Tablet(s) PO QD No Start Da te Active colestipol 1 gram tablet RxNorm: 6320830 1 Tablet(s) PO BID No Start Date Active pantoprazole 40 mg tablet,delayed release RxNorm: 350093 1 Tabl et(s) PO QD No Start Date Active pantoprazole 40 mg tablet,delayed release RxNorm: 862421 1 Tabl et(s) PO QD No Start Date 02/25/2018 Inactive bumetanide 1 mg tablet RxNorm: 718033 1 Tablet(s) PO BID (6am a nd 6pm) No Start Date 08/12/2018 Inactive potassium chloride ER 10 mEq tablet,extended release RxNorm: 201473 1 Tablet(s) PO QD No Start Date 02/11/2019 Inactive levothyroxine 25 mcg tablet RxNorm: 386466 1 Tablet(s) PO QD No Sta rt Date 08/12/2018 Inactive spironolactone 25 mg tablet RxNorm: 476324 1 Tablet(s) PO QD No Sta rt Date 08/12/2018 Inactive warfarin 5 mg tablet RxNorm: 620126 1 Tablet(s) PO MWF No Start Date 08/12/2018 Inactive warfarin 5 mg tablet RxNorm: 787831 1 Tablet(s) PO Tu , Sun, , Sat and Sun then 1/2 tablet (2.5mg) on Mon & Fri No Start Date 08/12/2018 Inactive losartan 25 mg tablet RxNorm: 951922 1 Tablet(s) PO QAM No Start Da te 08/12/2018 Inactive carvedilol 6.25 mg tablet RxNorm: 666982 1 Tablet(s) PO BID No Star t Date 08/12/2018 Inactive warfarin 2.5 mg tablet RxNorm: 524868 1 Tablet(s) PO , Thur s, Sat and Sun No Start Date 08/12/2018 Inactive Coumadin 2.5 mg tablet RxNorm: 930349 Tablet(s) Mon Sun and Sun PO No Start Date 02/17/2018 Inactive Children's Multivitamin with Iron tablet RxNorm: 1 Table t(s) PO QD No Start Date 04/22/2019 Inactive potassium chloride ER 20 mEq tablet,extended release(p art/cryst) RxNorm: 6167786 2 Tablet(s) PO QD No Start Date 05/05/2018 Inactive Coumadin 5 mg tablet RxNorm: 815938 Tablet(s) PO No Start Date 2017 Inactive mexiletine 200 mg capsule RxNorm: 0700689 1 Capsule(s) PO BID No St art Date 03/25/2018 Inactive ferrous sulfate 325 mg (65 mg iron) tablet RxNorm: 350933 1 Tab let(s) PO QD No Start Date 07/22/2018 Inactive cyclobenzaprine 10 mg tablet RxNorm: 173188 1 Tablet(s) PO Q8H as needed No Start Date 12/29/2018 Inactive potassium chloride ER 10 mEq capsule,extended release RxNorm : 289912 2 Capsule(s) PO QD No Start Date 12/11/2018 Inactive Coumadin 5 mg tablet RxNorm: 963999 1 Tablet(s) PO Tues, Thurs, Sat and Sun No Start Date 07/22/2018 Inactive Restoril 15 mg capsule RxNorm: 281852 1-2 Capsule(s) PO QHS as needed for sleep No Start Date 05/05/2018 Inactive metoprolol succinate ER 25 mg tablet,extended release 24 hr RxNorm: 600750 1 Tablet(s) PO QD No Start Date 08/12/2018 Inactive Entresto 24 mg-26 mg tablet RxNorm: 8128746 1 Tablet(s) PO BID No S tart Date 08/12/2018 Inactive warfarin 5 mg tablet RxNorm: 425006 1 Tablet(s) PO , Sun, , Sun and Sun and 1/2 tablet on Sun/Sun No Start Date 01/30/2019 Inactive amiodarone 200 mg tablet RxNorm: 178540 2 Tablet(s) PO BID No Start Date 10/09/2018 Inactive furosemide 20 mg tablet RxNorm: 531980 1 Tablet(s) PO QD No Start D ate 08/12/2018 Inactive amiodarone 200 mg tablet RxNorm: 128858 1 Tablet(s) PO BID No Start Date 08/26/2018 Inactive atorvastatin 40 mg tablet RxNorm: 567277 1 Tablet(s) PO QD No Start Date 08/12/2018 Inactive warfarin 5 mg tablet RxNorm: 086218 1/2 Tablet(s) PO on Sun, Sun, Sun, Sun then 1 tablet on Sun, , Sat No Start Date 04/22/2019 Inactive Medication Administered No Medication Administered data Immunizations Vaccine Codes Date Status Hepatitis A CVX: 83 11/20/2019 Pneumovax CVX: 33 05/14/2019 Hepatitis A CVX: 83 03/25/2019 Influenza CVX: 135 03/25/2019 Results Observation Observation Code Item Item Code Result Date S ervice Location UA W/MICR 65239 UA Urine Appear Normal 02/06/2018 Unk nown UA W/MICR 78398 UA Protein 3+ 02/06/2018 Unknown UA W/MICR 81927 UA Hemoglobin Trace 02/06/2018 Unkno wn UA W/MICR 67193 UA Glucose Negative 02/06/2018 Unknown UA W/MICR 21569 UA Ketones Negative 02/06/2018 Unknown UA W/MICR 45090 UA pH 5.5 02/06/2018 Unknown UA W/MICR 72636 U Spec [place] 1.025 02/06/2018 Unkn own UA W/MICR 84872 UA Bilirubin Negative 02/06/2018 Unknow n UA W/MICR 35458 UA Leuk Esteras Trace 02/06/2018 Unk nown UA W/MICR 45411 UA Nitrite NEG 02/06/2018 Unknown UA W/MICR 79870 UA WBC/hpf 11-25 02/06/2018 Unknown UA W/MICR 28624 UA RBC hpf 0-5 02/06/2018 Unknown UA W/MICR 55353 UA Hyaline Cast 16-25 02/06/2018 Unk nown UA W/MICR 49158 UA Squam Epi Few 02/06/2018 Unknow n Procedures Procedure Codes Date URINALYSIS NONAUTO W/O SCOPE CPT-4: 59116 01/30/2020 URINE CULTURE/ COLONY COUNT CPT-4: 58499 01/30/2020 URINALYSIS NONAUTO W/O SCOPE CPT-4: 30663 11/19/2019 INITIAL PREVENTIVE EXAM CPT-4: G0402 09/25/2019 URINALYSIS NONAUTO W/O SCOPE CPT-4: 70415 03/18/2019 URINE CULTURE/ COLONY COUNT CPT-4: 16536 03/18/2019 URINALYSIS NONAUTO W/O SCOPE CPT-4: 08611 12/12/2018 URINE CULTURE/ COLONY COUNT CPT-4: 47654 03/26/2018 URINALYSIS NONAUTO W/O SCOPE CPT-4: 71863 03/15/2018 INITIAL PREVENTIVE EXAM CPT-4: G0402 02/26/2018 URINALYSIS NONAUTO W/O SCOPE CPT-4: 44153 02/06/2018 URINE CULTURE/ COLONY COUNT CPT-4: 59579 02/06/2018 UA W/MICR CPT-4: 47673 02/06/2018 CUR TOBACCO NON-USER CPT-4: G8457 01/30/2018 REPAIR BLADDER & VAGINA CPT-4: 26746 01/06/2017 REPAIR OF RECTOCELE CPT-4: 56697 01/06/2017 BREAST SURGERY PROCEDURE CPT-4: 18180 Unknown LAPARO CHOLECYSTECTOMY/EXPLR CPT-4: 19199 Unknown HYSTERECTOMY/REVISE VAGINA CPT-4: 71079 Unknown Vital Signs Date Vital 02/05/2020 Blood [...] 1: 106/58 Code: 8480-6 BMI: 26.3 Code: 43064-0 Heart Rate 1: 72 bpm Height: 4'10" Respiratory Rate: 20 bpm SpO2: 97% Tempera ture: 36.6 (C) / 97.8 (F) Weight: 128 lbs 07/10/2018 Blood Pressure 1: 122/70 Code: 8480-6 BMI: 28.6 Code: 31144-7 Heart Rate 1: 80 bpm Height: 4'10" Respiratory Rate: 20 bpm SpO2: 96% Tempera ture: 36.9 (C) / 98.4 (F) Weight: 139 lbs 05/06/2018 Blood Pressure 1: 112/54 Code: 8480-6 BMI: 27.5 Code: 48959-5 Heart Rate 1: 80 bpm Height: 4'10" [...] 1: 146/80 Code: 8480-6 BMI: 30.0 Code: 34802-2 Heart Rate 1: 76 bpm Height: 4'10" Respiratory Rate: 20 bpm SpO2: 97% Tempera ture: 36.7 (C) / 98.1 (F) Weight: 146 lbs 02/26/2018 Blood Pressure 1: 126/80 Code: 8480-6 BMI: 29.6 Code: 92303-8 Heart Rate 1: 80 bpm Height: 4'10" Respiratory Rate: 18 bpm SpO2: 96% Tempera ture: 37.0 (C) / 98.6 (F) Weight: 144 lbs 01/30/2018 Blood Pressure 1: 120/78 Code: 8480-6 BMI: 29.6 Code: 90851-6 Heart Rate 1: 84 bpm Height: 4'10" [...] Care Encounters Encounter Performer Location Codes Date ([id number]) OFFICE/OUTPATIENT VISIT EST Diagnosis: Pain in right foot[ICD10: M79.671] Bhavna DAILY [facility] CPT-4: 42037 02/05/2020 ([id number]) OFFICE/OUTPATIENT VISIT EST Diagnosis: Urinary tract infection, site not specified[ICD10: N39.0] Diagnosis: Left lower quadrant pain[ICD10: R10.32] Bhavna DAILY [employer] [facility] CPT-4: 26807 01/30/2020 ([id number]) OFFICE/OUTPATIENT VISIT EST Diagnosis: Hypotension[ICD10: I95.9] Diagnosis: Chronic kidney disease[ICD10: N18.9] Farhat DAILY [employer] CPT-4: 38972 11/24/2019 ([id number]) OFFICE/OUTPATIENT VISIT EST Diagnosis: Hypotension[ICD10: I95.9] Diagnosis: Dizziness and giddiness[ICD10: R42] Diagnosis: Polyuria[ICD10: R35.8] Farhat Landeros [facility] CPT-4: 04105 11/19/2019 ([id number]) OFFICE/OUTPATIENT VISIT EST Diagnosis: Sigmoid diverticulitis[ICD10: K57.32] Farhat DAILY [facility] CPT-4: 59681 08/26/2019 ([id number]) OFFICE/OUTPATIENT VISIT EST Diagnosis: Clostridium difficile colitis[ICD10: A04.72] Farhat DAILY [facility] CPT-4: 74324 05/07/2019 ([id number]) OFFICE/OUTPATIENT VISIT EST Diagnosis: Clostridium difficile colitis[ICD10: A04.72] Diagnosis: Edema[ICD10: R60.9] Farhat DAILY [facility] CPT-4: 66543 04/23/2019 ([id number]) OFFICE/OUTPATIENT VISIT EST Diagnosis: Constipation[ICD10: K59.00] Diagnosis: Left lower quadrant pain[ICD10: R10.32] Bhavna DAILY [facility] CPT-4: 70066 03/27/2019 ([id number]) OFFICE/OUTPATIENT VISIT EST Diagnosis: Acute kidney failure, unspecified[ICD10: N17.9] Farhat DAILY [facility] CPT-4: 21067 03/18/2019 ([id number]) OFFICE/OUTPATIENT VISIT EST Diagnosis: Essential (primary) hypertension[ICD10: I10] Diagnosis: Chronic atrial fibrillation[ICD10: I48.2] Diagnosis: Mixed hyperlipidemia[ICD10: E78.2] Diagnosis: Other fatigue[ICD10: R53.83] Diagnosis: Abdominal distension (gaseous)[ICD10: R14.0] Farhat DAILY [facility] CPT-4: 96554 02/12/2019 ([id number]) OFFICE/OUTPATIENT VISIT EST Diagnosis: Low back pain[ICD10: M54.5] Bhavna DOUGHERTY S. O RENDER [facility] CPT-4: 26621 12/25/2018 ([id number]) OFFICE/OUTPATIENT VISIT EST Diagnosis: Low back pain[ICD10: M54.5] Bhavna DOUGHERTY S. O RENDER [facility] CPT-4: 02375 12/12/2018 ([id number]) OFFICE/OUTPATIENT VISIT EST Diagnosis: Anemia, unspecified[ICD10: D64.9] Diagnosis: Chronic atrial fibrillation[ICD10: I48.2] Diagnosis: Other fatigue[ICD10: R53.83] [facility] 29[facility] 10/10/2018 ([id number]) OFFICE/OUTPATIENT VISIT EST Diagnosis: Acute on chronic combined systolic (congestive) and diastolic (congestive) heart failure[ICD10: I50.43] Diagnosis: Chronic atrial fibrillation[ICD10: I48.2] Farhat DAILY [facility] CPT-4: 02005 08/27/2018 ([id number]) OFFICE/OUTPATIENT VISIT EST Diagnosis: Chronic atrial fibrillation[ICD10: I48.2] 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] 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] Farhat DAILY [facility] CPT-4: 62516 08/13/2018 ([id number]) OFFICE/OUTPATIENT VISIT EST Diagnosis: Acute on chronic combined systolic (congestive) and diastolic (congestive) heart failure[ICD10: I50.43] Diagnosis: Essential (primary) hypertension[ICD10: I10] Diagnosis: Anemia, unspecified[ICD10: D64.9] Farhat DAILY [facility] CPT-4: 62124 07/10/2018 ([id number]) OFFICE/OUTPATIENT VISIT EST Diagnosis: Chronic atrial fibrillation[ICD10: I48.2] Diagnosis: Acute on chronic combined systolic (congestive) and diastolic (congestive) heart failure[ICD10: I50.43] Diagnosis: Localized edema[ICD10: R60.0] Farhat DAILY [facility] CPT-4: 07551 05/06/2018 ([id number]) OFFICE/OUTPATIENT VISIT EST Diagnosis: Generalized abdominal pain[ICD10: R10.84] Diagnosis: Pelvic and perineal pain[ICD10: R10.2] Diagnosis: Localized edema[ICD10: R60.0] Bhavna DAILY [facility] CPT-4: 82193 04/17/2018 ([id number]) OFFICE/OUTPATIENT VISIT EST Diagnosis: Urinary tract infection, site not specified[ICD10: N39.0] Diagnosis: Other insomnia[ICD10: G47.09] Diagnosis: Other fatigue[ICD10: R53.83] Diagnosis: Other forms of dyspnea[ICD10: R06.09] Diagnosis: Chronic atrial fibrillation[ICD10: I48.2] Diagnosis: Restless legs syndrome[ICD10: G25.81] Farhat DAILY [facility] CPT-4: 66510 03/26/2018 ([id number]) OFFICE/OUTPATIENT VISIT EST Diagnosis: Altered mental status, unspecified[ICD10: R41.82] 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] Diagnosis: Hematuria, unspecified[ICD10: R31.9] Bhavna DAILY [facility] CPT-4: 94849 03/15/2018 ([id number]) NURSE/OUTPATIENT VISIT EST Diagnosis: Urinary tract infection, site not specified[ICD10: N39.0] Farhat DAILY [facility] CPT-4: 68288 02/06/2018 OFFICE/OUTPATIENT VISIT NEW Diagnosis: FPC (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[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] Diagnosis: Essential (primary) hypertension[ICD10: I10] Diagnosis: Mixed hyperlipidemia[ICD10: E78.2] Diagnosis: Other fatigue[ICD10: R53.83] Diagnosis: Cardiac arrhythmia, unspecified[ICD10: I49.9] Diagnosis: Generalized abdominal pain[ICD10: R10.84] Diagnosis: Urinary tract infection, site not specified[ICD10: N39.0] Diagnosis: Other insomnia[ICD10: G47.09] Bhavna DAILY [facility] CPT-4: 53376 01/30/2018 Plan of Care Planned Activity Notes [...] M79.671 02/05/2020 Patient Education: ondansetron- [employer] Coupon [phone] https://www.[email or web address]/resources/getResource/61/[email or web address]-[email or web address] Completed 02/05/2020 Visit Diagnosis Plan: Left lower [...] ICD-10 : R10.32 01/30/2020 Appointment: Bhavna Escalante [address] [place], [place] [id number] ACUTE ILLNESS 01/30/2020 Patient Education: temazepam- [employer] Coupon [phone] https://www.[employer]/samplemd/resources/getResource/61/[email or web address]-[email or web address] Completed 01/30/2020 Patient Education: temazepam- [employer] Coupon [phone] https://www.[employer]/samplemd/resources/getResource/61/b286958e-[email or web address]-p7 Completed 01/30/2020 Visit Diagnosis Plan: Chronic kidney [...] I95.9 11/24/2019 Appointment[facility] Farhat [facility] [address] [facility] [facility] 11/24/2019 Visit Diagnosis Plan: Hypotension Discussion: BP today is okay ICD-9 : 458.9 ICD-10 : I95.9 11/19/2019 Visit Diagnosis Plan: Polyuria Discussion: UA normal ICD-9 : 788.42 ICD-10 : R35.8 11/19/2019 Visit Diagnosis Plan: Dizziness and giddiness Discussi on: Check lab--CBC, CMP, TSH, PT/INR now ICD-9 : 780.4 ICD-10 : R42 11/19/2019 Appointment: Farhat Daily WPtel: [address] [facility] ACUTE ILLNESS 11/19/2019 Patient Education: Colace- [employer] Coupon [phone] [email or web address].[email or web address]/[email or web address] [employer]/resources/getResource/61/[email or web address]-[email or web address] Completed 11/19/2019 Visit Diagnosis Plan: Encounter for gene [facility] adult medical examination with abnormal findings [...] : I10 09/25/2019 Appointment: Farhat Daily WPtel: [facility] [facility] Well Visit 09/25/2019 Care Plan: COMPREH[place]AB[place] : 469[address]-4 Pending 09/22/2019 Care Plan: COMPLETE CBC W/AUTO DIFF WBC LOINC : 73175-4 Pending 09/22/2019 Appointment: Bhavna Escalante [address] [facility] [place] pt. feeling better and still [...] : K57.32 08/26/2019 Appointment: Farhat Daily WPtel: [address] [place], [place] [phone] ACUTE ILLNESS 08/26/2019 Appointment: Farhat Daily WPtel: [address] [place], [place] [id number] originally 4 mo follow up CANCELED 2018 Visit Diagnosis Plan: Clostridium difficile colitis Di scussion: Vancomycin daily for another week then 125mg every 3 days for 1 month then stop Fwup in September ICD-9 : 008.45 ICD-10 : A04.72 05/07/2019 Appointment: Farhat Daily WPtel: [address] [place], [place] [phone] FOLLOW UP 05/07/2019 Visit Diagnosis Plan: [...] : A04.72 04/23/2019 Appointment: Farhat Daily WPtel: [address] [place], [place] [phone] Hospital Follow Up 04/23/2019 Appointment: Bhavna Escalante [address] [facility] CANCELED 04/15/2019 Visit Diagnosis Plan: Left lower quadrant pain Discuss ion: will start with abdominal xray to rule out acute obstruction/constipation. if no acute findings, will treat as diverticulitis due to patient's past history. ICD-9 : 789.04 ICD-10 : R10.32 03/27/2019 Appointment: [facility]alante [address] [facility] [facility] 03/27/2019 Visit Diagnosis Plan: Acute kidney failure, unspecifie d Discussion: Was given Meloxicam at urgent care--discussed no NSAIDs, hydrate, repeat Chem 7 in 1 week ICD-9 : 584.9 ICD-10 : N17.9 03/18/2019 Appointment: Farhat Daily WPtel: [address] [place] [address] [place] ACUTE ILLNESS 03/18/2019 Visit Diagnosis Plan: Abdominal distension (gaseous) D iscussion: Trial of Zenpep q AC ICD-9 : 787.3 ICD-10 : R14.0 02/12/2019 Visit Diagnosis Plan: Essential (primary) hypertension Discussion: Stable ICD-9 : 401.9 ICD-10 : I10 02/12/2019 Visit Diagnosis Plan: Chronic atrial fibrillation Disc ussion: Following routinely with Cardiology ICD-9 : 427.31 ICD-10 : I48.2 02/12/2019 Appointment: Farhat Daily WPtel: [facility] [place] [address] [place] FOLLOW UP 02/12/2019 Appointment: Bhavna Escalante [address] [place], [place] [address]a [place] [address] [place] Canceled per guillermina. sending for mri [...] ICD-10 : M54.5 12/25/2018 Appointment: Bhavna Escalante [address] [place], [place] [address]a [address] ACUTE ILLNESS 12/25/2018 Visit Diagnosis Plan: [...] M54.5 12/12/2018 Appointment: Bhavna Escalante [address] [place] [id number] ACUTE ILLNESS 12/12/2018 Patient Education: cyclobenzaprine- [employer] Coupon [id number] https://www.[employer]/samplemd/resources/getResource/61/py1879g6-r844-5y1w-b3 Completed 12/12/2018 Appointment: Bhavna Escalante [address] [place], [place] [id number] [place] CANCELED 12/06/2018 Visit Diagnosis Plan: Chronic [...] : R53.83 10/10/2018 Appointment: Farhat Daily WPtel: [address] [place] [address] [place] FOLLOW UP 10/10/2018 Visit Diagnosis Plan: [...] : I50.43 08/27/2018 Appointment: Farhat Daily WPtel: [address] [place] [address] [place] FOLLOW UP 08/27/2018 Visit Diagnosis Plan: [...] ICD-10 : I48.2 08/13/2018 Visit Diagnosis Plan: FPC (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 Discussion: Increase Coumadin to 5mg po daily and repeat PT/INR in 2 weeks ICD-9 : V58.61 ICD-10 : Z79.01 08/13/2018 Appointment[facility]el[facility] [phone] [id number] [facility] 08/13/2018 Patient Education: bumetanide- [employer] Coupon [phone] https://www.[employer]/[facility] [facility]/resources/getResource/61/9hy72y53-0uu6-0u84-ut Completed 08/13/2018 Patient Education: levothyroxine- [employer] Coupon [phone] https://www.[employer]/[facility] [facility]/resources/getResource/61/4467655s-4495-9l61-rz Completed 08/13/2018 Patient Education: warfarin- [employer] Coupon [id number] https://www.[employer]/[facility] [facility]/resources/getResource/61/22811209-fr71-56i3-2s Completed 08/13/2018 Patient Education: pantoprazole- [employer] Coupon [phone] https://www.[employer]/[facility] [facility]/resources/getResource/61/z6572w53-42h5-41yl-5h Completed 08/13/2018 Patient Education: spironolactone- [employer] Coupon 5 [id number] https://www.[employer]/[facility] [facility]/resources/getResource/61/0gf131w5-z057-1071-qj Completed 08/13/2018 Visit Diagnosis Plan: Anemia, unspecified [...] : I50.43 07/10/2018 Appointment: Farhat Daily WPtel: [address] [place], [place] [phone] 2nd LM FOLLOW UP 07/10/2018 Visit Diagnosis [...] : I48.2 05/06/2018 Appointment: Farhat Daily WPtel: [facility] FOLLOW UP 05/06/2018 Visit Diagnosis Plan: [...] ICD-10 : R10.2 04/17/2018 Appointment: Bhavna Escalante [address] [place] [address] ACUTE ILLNESS 04/17/2018 Patient Education: Patient Medication Summary Completed 04/17/2018 Care Plan: CT ABDOMEN W/O & W/DYE LOINC : 02341-0 Pending 04/17/2018 Care Plan: CT PELVIS W/O & W/DYE LOINC : 87822-1 Pending 04/17/2018 Appointment: [facility]el[facility] [phone] [id number] [place] CANCELED 04/10/2018 Visit Diagnosis Plan: [...] G47.09 03/26/2018 Appointment: [facility]Ptel[facility] [phone] [facility] [facility] Follow UP 03/26/2018 Patient Education: [...] ICD-10 : R41.82 03/15/2018 Appointment: Bhavna Escalante [address] [place] [address] ACUTE ILLNESS 03/15/2018 Patient Education: Patient Medication Summary Completed 03/15/2018 Visit Diagnosis Plan: Primary insomnia Discussion: Tri al of elavil 10mg po q HS ICD-9 : 780.52 ICD-10 : F51.01 02/26/2018 Visit Diagnosis Plan: Functional dyspepsia Discussion: Increase protonix to 40mg po BID Follow Up: 1 months ICD-9 : 536.8 ICD-10 : K30 02/26/2018 Appointment: Farhat Daily WPtel: [address] [place] [address] WELCOME TO MEDICARE 02/26/2018 Patient Education: Patient Medication Summary Completed 02/26/2018 Referral: Song Noonan WPtel: [address] [place] [address] [place] Referral Initiated 02/19/2018 Appointment: Farhat Daily WPtel: [address] [place] [address] [place] LAB 02/06/2018 Patient Education: Patient Medication Summary Completed 02/06/2018 Appointment: Farhat Daily WPtel: [address] [place] [address] [place] CANCELED 02/01/2018 Care Plan: US EXAM ABDOM COMPLETE liver LOINC : 09113-1 Pending 01/31/2018 Visit Diagnosis Plan: Other fatigue [...] ICD-10 : I10 01/30/2018 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 informed her to take tylenol or remaining hydrocodone from surgery if pain develops. ICD-9 : V58.61 ICD-10 : Z79.01 01/30/2018 Appointment: Bhavna Escalante [address] [place] [address] NEW PATIENT 01/30/2018 Patient Education: Patient Medication Summary Completed 01/30/2018 Instructions No Instructions Medical Equipment No Medical Equipment data Health Concerns Section Health Concerns data not found Goals Section Goals data not found Interventions Section Interventions data not found Health Status Evaluations/Outcomes Section Health Status Evaluations/Outcomes data not found Advance Directives No Advance Directive data
--- OUTSIDE RECORDS SUMMARY | 2020-02-10 14:00 | XMS REPORT | CCD ---
Author Author Riana Escalante Organization [facility] Address [address] [place] [address] Phone Unavailable Care Team Providers Care Retort Furnace Helper Name Role Phone PP Unavailable CCM Unavailable Summary Purpose Interface Exchange Insurance Providers Payer name Policy type / Coverage type Covered green party ID Effective Begin Date Effective End Date WPS MEDICARE PART B [place] Medicare Part B [id number] 2017 Unknown Cigna Medicare Part B [id number] 2017 Unknown Family History Family History data not found Social History Social History Element Codes Description Effective Dates Tobacco history SNOMED CT: 455368493 Never smoker 01/30/[address]: 516137072 Never drinks alcohol 2017 Allergies, Adverse Reactions, [...] Problems Condition Codes Effective Dates Condition Status Left lower quadrant pain ICD-9: 789.04 ICD-10: [...] hypertension ICD-9: 401.9 ICD-10: I10 01/30/2018 Active [facility] (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 ICD-9: V58.6 1 [...] Start Date Stop Date Status Fill Instructions temazepam 15 mg capsule RxNorm: 816430 TAKE 1 TO 2 CAPS ULES BY MOUTH AT BEDTIME NEEDED FOR SLEEP 01/30/2020 01/30/2020 Inactive Augmentin 875 mg-125 mg tablet RxNorm: 562165 1 Tablet( s) Oral three times a day 01/30/2020 02/05/2020 Active temazepam 15 mg capsule RxNorm: 759489 TAKE 1 TO 2 CAPS ULES BY MOUTH AT BEDTIME NEEDED FOR SLEEP 01/30/2020 01/29/2020 Inactive Augmentin 875 mg-125 mg tablet RxNorm: 948804 1 Tablet( s) Oral three times a day 01/30/2020 01/29/2020 Inactive levothyroxine 25 mcg tablet RxNorm: 330172 1 Tablet(s) Oral QD 07/201904/06/2020 Active potassium chloride ER 10 mEq capsule,extended release RxNorm : 425577 TAKE ONE CAPSULE BY MOUTH TWICE A DAY OF AND TAKE ONE CAPSULE BY MOUTH DAILY ON -Sun12/23/2019 No Stop Date Active Colace 100 mg capsule RxNorm: 8811782 1 Capsule(s) Oral three ti mes a day 11/19/2019 12/19/2019 Inactive warfarin 5 mg tablet RxNorm: 360960 1 Tablet(s) Oral MW F and 1/2 tablet (2.5mg) , [facility], 09/30/2019 12/29/2019 Inactive levothyroxine 25 mcg tablet RxNorm: 465144 TAKE ONE TABLET BY M OUTH DAILY 09/30/2019 01/06/2020 Inactive potassium chloride ER 10 mEq capsule,extended release RxNorm : 128283 1 Capsule(s) Oral two times a day on and 1 capsule 09/26/2019 09/26/2019 Inactive vancomycin 125 mg capsule RxNorm: 515934 2 Capsule(s) Oral Q8H 08/0909/05/2019 Inactive warfarin 5 mg tablet RxNorm: 653857 1 Tablet(s) Oral MW F and 1/2 tablet (2.5mg) , [employer] 08/26/2019 09/29/2019 Inactive Colace 100 mg capsule RxNorm: 8559086 1 Capsule(s) Oral QD 08/26/1911/18/2019 Inactive levothyroxine 25 mcg tablet RxNorm: 916831 1 Tablet(s) PO QD 201909/29/2019 Inactive spironolactone 25 mg tablet RxNorm: 475148 TAKE 1 TABLET BY DOUGLAS TWICE DAILY 06/22/2019 09/19/2019 Inactive losartan 25 mg tablet RxNorm: 325297 TAKE 1 TABLET BY M OUTH ONCE DAILY IN THE MORNING 05/26/2019 No Stop Date Active bumetanide 1 mg tablet RxNorm: 566556 TAKE 1 TABLET BY MOUTH TWICE DAILY AT 6AM AND 6PM 05/23/2019 No Stop Date Active vancomycin 125 mg capsule RxNorm: 433124 1 Capsule(s) Oral Q3D 04/1008/25/2019 Inactive pantoprazole 40 mg tablet,delayed release RxNorm: 172052 1-2 Ta blet(s) Oral QD 04/23/2019 05/23/2019 Inactive potassium chloride ER 10 mEq capsule,extended release RxNorm : 361539 1 Capsule(s) Oral QD 04/23/2019 09/25/2019 Inactive warfarin 5 mg tablet RxNorm: 520144 Tablet(s) Oral Take 1 tablet (5mg) by mouth on and Sun then 1/2 tablet (2.5mg) on Sun, Sun, Thurs, Sat and Sun 04/23/2019 08/25/2019 Inactive temazepam 15 mg capsule RxNorm: 088191 TAKE 1 TO 2 CAPS ULES BY MOUTH AT BEDTIME NEEDED FOR SLEEP 04/08/2019 09/25/2019 Inactive Cipro 250 mg tablet RxNorm: 224032 1 Tablet(s) Oral two times a day 03/27/2019 04/03/2019 Inactive metronidazole 500 mg tablet RxNorm: 455151 1 Tablet(s) Oral thr ee times a day 03/27/2019 04/03/2019 Inactive bumetanide 1 mg tablet RxNorm: 741620 1 Tablet(s) PO BID (6am a nd 6pm) 02/13/2019 05/13/2019 Inactive levothyroxine 25 mcg tablet RxNorm: 859037 1 Tablet(s) PO QD 201807/13/2019 Inactive warfarin 5 mg tablet RxNorm: 411237 1 TABLET(S) PO TU , SUN, THURS, SAT AND SUN AND 1/2 TABLET ON 02/04/2019 02/11/2019 Inactive Kendra ent requests 90 days supply warfarin 5 mg tablet RxNorm: 447246 1 TABLET(S) PO TUES , WED, THURS, SAT AND SUN AND 1/2 TABLET ON 02/03/2019 02/03/2019 Inactive Kendra ent requests 90 days supply levothyroxine 25 mcg tablet RxNorm: 272824 1 Tablet(s) PO QD 201802/03/2019 Inactive warfarin 5 mg tablet RxNorm: 506068 1 Tablet(s) PO Tu , Wed, Thurs, Sat and Sun and 1/2 tablet on 01/31/2019 02/02/2019 Inactive temazepam 15 mg capsule RxNorm: 542452 TAKE 1 TO 2 CAPS ULES BY MOUTH AT BEDTIME NEEDED FOR SLEEP 01/31/2019 04/07/2019 Inactive cyclobenzaprine 10 mg tablet RxNorm: 370122 1 Tablet(s) PO Q8H as needed 12/30/2018 09/25/2019 Inactive losartan 25 mg tablet RxNorm: 196477 1 Tablet(s) PO QAM 12/27/2018 Inactive Lidoderm 5 % topical patch RxNorm: 4164538 1 Application TOP Q12H and then off for 12 hours 12/25/2018 01/23/2019 Inactive Lidoderm 5 % topical patch RxNorm: 3744405 1 Application TOP Q12H and then off for 12 hours 12/25/2018 12/24/2018 Inactive cyclobenzaprine 5 mg tablet RxNorm: 270113 1 Tablet(s) PO Q8H a s needed 12/12/2018 12/24/2018 Inactive spironolactone 25 mg tablet RxNorm: 400208 1 Tablet(s) PO BID 09/2006/16/2019 Inactive change in directions to BID pantoprazole 40 mg tablet,delayed release RxNorm: 322035 1 Tabl et(s) PO QD 09/20/2018 04/22/2019 Inactive Patient requests 9 0 days supply spironolactone 25 mg tablet RxNorm: 639418 1 Tablet(s) PO BID 08/2609/19/2018 Inactive change in directions to BID pantoprazole 40 mg tablet,delayed release RxNorm: 307921 1 Tabl et(s) PO QD 08/15/2018 09/19/2018 Inactive Patient requests 9 0 days supply carvedilol 6.25 mg tablet RxNorm: 884608 1 Tablet(s) PO BID 019 02/08/2019 Inactive pantoprazole 40 mg tablet,delayed release RxNorm: 235527 1 Tablet(s) PO QD 1 TABLET(S) PO BID 08/13/2018 08/15/2018 Inactive Patient reque sts 90 days supply bumetanide 1 mg tablet RxNorm: 242627 1 Tablet(s) PO BID (6am a nd 6pm) 08/13/2018 02/08/2019 Inactive bumetanide 0.5 mg tablet RxNorm: 495199 1 Tablet(s) PO QPM three days a week--Sunday, Sun, Sunday instead of 1mg dose in evening 08/13/201812/2018 Inactive levothyroxine 25 mcg tablet RxNorm: 772924 1 Tablet(s) PO QD 201801/30/2019 Inactive spironolactone 25 mg tablet RxNorm: 054117 1 Tablet(s) PO QD 201808/25/2018 Inactive losartan 25 mg tablet RxNorm: 824820 1 Tablet(s) PO QAM 08/13/2018 Inactive warfarin 5 mg tablet RxNorm: 400961 1 Tablet(s) PO QD 08/13/201808/09 Inactive pantoprazole 40 mg tablet,delayed release RxNorm: 919510 1 TABL ET(S) PO BID 08/02/2018 08/12/2018 Inactive Patient requests 9 0 days supply temazepam 15 mg capsule RxNorm: 326382 1-2 Capsule(s) P O QHS as needed for sleep 2018 01/31/2019 Inactive Restoril 15 mg capsule RxNorm: 380506 1-2 Capsule(s) PO QHS as needed for sleep 06/04/2018 08/12/2018 Inactive potassium chloride ER 10 mEq capsule,extended release RxNorm : 066787 2 CAPSULE(S) PO QD 05/07/2018 08/04/2018 Inactive Patient reque sts 90 days supply temazepam 22.5 mg capsule RxNorm: 646436 1 Capsule(s) P O QHS as needed for sleep 05/06/2018 08/12/2018 Inactive potassium chloride ER 10 mEq capsule,extended release RxNorm : 662541 2 Capsule(s) PO QD 05/06/2018 05/06/2018 Inactive ropinirole 1 mg tablet RxNorm: 340946 1 TABLET(S) PO QHS FOR RE STLESS LEGS 03/27/2018 04/25/2018 Inactive Patient requests 9 0 days supply ropinirole 1 mg tablet RxNorm: 230129 1 Tablet(s) PO QHS for re stless legs 03/26/2018 03/26/2018 Inactive cefdinir 300 mg capsule RxNorm: 758913 1 Capsule(s) PO BID 03/26/20 18 03/30/2018 Inactive temazepam 15 mg capsule RxNorm: 279984 1 Capsule(s) PO QHS as neede d 03/20/2018 03/25/2018 Inactive Lunesta 3 mg tablet RxNorm: 658782 1 Tablet(s) PO QHS as needed for sleep 03/04/2018 03/19/2018 Inactive amitriptyline 10 mg tablet RxNorm: 952085 1 Tablet(s) PO QHS fo r sleep 02/26/2018 03/03/2018 Inactive escitalopram 20 mg tablet RxNorm: 557203 1 Tablet(s) PO QHS 018 08/12/2018 Inactive pantoprazole 40 mg tablet,delayed release RxNorm: 031093 1 Tabl et(s) PO BID 02/26/2018 04/26/2018 Inactive Coumadin 2.5 mg tablet RxNorm: 999861 1 Tablet(s) PO MWF 02/18/2018 0 07/22/2018 Inactive amiodarone 200 mg tablet RxNorm: 862723 1 Tablet(s) PO QD No Start Da te Active colestipol 1 gram tablet RxNorm: 8132487 1 Tablet(s) PO BID No Start Date Active pantoprazole 40 mg tablet,delayed release RxNorm: 505904 1 Tabl et(s) PO QD No Start Date Active pantoprazole 40 mg tablet,delayed release RxNorm: 404949 1 Tabl et(s) PO QD No Start Date 02/25/2018 Inactive bumetanide 1 mg tablet RxNorm: 020720 1 Tablet(s) PO BID (6am a nd 6pm) No Start Date 08/12/2018 Inactive potassium chloride ER 10 mEq tablet,extended release RxNorm: 072262 1 Tablet(s) PO QD No Start Date 02/11/2019 Inactive levothyroxine 25 mcg tablet RxNorm: 908210 1 Tablet(s) PO QD No Sta rt Date 08/12/2018 Inactive spironolactone 25 mg tablet RxNorm: 753577 1 Tablet(s) PO QD No Sta rt Date 08/12/2018 Inactive warfarin 5 mg tablet RxNorm: 629891 1 Tablet(s) PO MWF No Start Date 08/12/2018 Inactive warfarin 5 mg tablet RxNorm: 158562 1 Tablet(s) PO Tues , Wed, Thurs, Sat and Sun then 1/2 tablet (2.5mg) on Mon & Fri No Start Date 08/12/2018 Inactive losartan 25 mg tablet RxNorm: 704125 1 Tablet(s) PO QAM No Start Da te 08/12/2018 Inactive carvedilol 6.25 mg tablet RxNorm: 951693 1 Tablet(s) PO BID No Star t Date 08/12/2018 Inactive warfarin 2.5 mg tablet RxNorm: 844789 1 Tablet(s) PO , Thur s, Sat and Sun No Start Date 08/12/2018 Inactive Coumadin 2.5 mg tablet RxNorm: 111777 Tablet(s) Mon Sun and Sun PO No Start Date 02/17/2018 Inactive Children's Multivitamin with Iron tablet RxNorm: 1 Table t(s) PO QD No Start Date 04/22/2019 Inactive potassium chloride ER 20 mEq tablet,extended release(p art/cryst) RxNorm: 6469131 2 Tablet(s) PO QD No Start Date 05/05/2018 Inactive Coumadin 5 mg tablet RxNorm: 203781 Tablet(s) PO No Start Date 2017 Inactive mexiletine 200 mg capsule RxNorm: 3723266 1 Capsule(s) PO BID No St art Date 03/25/2018 Inactive ferrous sulfate 325 mg (65 mg iron) tablet RxNorm: 670100 1 Tab let(s) PO QD No Start Date 07/22/2018 Inactive cyclobenzaprine 10 mg tablet RxNorm: 242188 1 Tablet(s) PO Q8H as needed No Start Date 12/29/2018 Inactive potassium chloride ER 10 mEq capsule,extended release RxNorm : 245812 2 Capsule(s) PO QD No Start Date 12/11/2018 Inactive Coumadin 5 mg tablet RxNorm: 713917 1 Tablet(s) PO , Th, Sat and Sun No Start Date 07/22/2018 Inactive Restoril 15 mg capsule RxNorm: 509088 1-2 Capsule(s) PO QHS as needed for sleep No Start Date 05/05/2018 Inactive metoprolol succinate ER 25 mg tablet,extended release 24 hr RxNorm: 317890 1 Tablet(s) PO QD No Start Date 08/12/2018 Inactive Entresto 24 mg-26 mg tablet RxNorm: 6149685 1 Tablet(s) PO BID No S tart Date 08/12/2018 Inactive warfarin 5 mg tablet RxNorm: 966398 1 Tablet(s) PO , Sun, , Sat and Sun and 1/2 tablet on Mon/Fri No Start Date 01/30/2019 Inactive amiodarone 200 mg tablet RxNorm: 801647 2 Tablet(s) PO BID No Start Date 10/09/2018 Inactive furosemide 20 mg tablet RxNorm: 430402 1 Tablet(s) PO QD No Start D ate 08/12/2018 Inactive amiodarone 200 mg tablet RxNorm: 964619 1 Tablet(s) PO BID No Start Date 08/26/2018 Inactive atorvastatin 40 mg tablet RxNorm: 197186 1 Tablet(s) PO QD No Start Date 08/12/2018 Inactive warfarin 5 mg tablet RxNorm: 672171 1/2 Tablet(s) PO on Sun, Sun, Sun, Sun then 1 tablet on Sun, , Sun No Start Date 04/22/2019 Inactive Medication Administered No Medication Administered data Immunizations Vaccine Codes Date Status Hepatitis A CVX: 83 11/20/2019 Pneumovax CVX: 33 05/14/2019 Hepatitis A CVX: 83 03/25/2019 Influenza CVX: 135 03/25/2019 Results Observation Observation Code Item Item Code Result Date S ervice Location UA W/MICR 45827 UA Urine Appear Normal 02/06/2018 Unk nown UA W/MICR 48335 UA Protein 3+ 02/06/2018 Unknown UA W/MICR 38674 UA Hemoglobin Trace 02/06/2018 Unkno wn UA W/MICR 78636 UA Glucose Negative 02/06/2018 Unknown UA W/MICR 46095 UA Ketones Negative 02/06/2018 Unknown UA W/MICR 95660 UA pH 5.5 02/06/2018 Unknown UA W/MICR 59691 U Spec [place] 1.025 02/06/2018 Unkn own UA W/MICR 60202 UA Bilirubin Negative 02/06/2018 Unknow n UA W/MICR 50763 UA Leuk Esteras Trace 02/06/2018 Unk nown UA W/MICR 32043 UA Nitrite NEG 02/06/2018 Unknown UA W/MICR 89820 UA WBC/hpf 11-25 02/06/2018 Unknown UA W/MICR 46149 UA RBC hpf 0-5 02/06/2018 Unknown UA W/MICR 37973 UA Hyaline Cast 16-25 02/06/2018 Unk nown UA W/MICR 94946 UA Squam Epi Few 02/06/2018 Unknow n Procedures Procedure Codes Date URINALYSIS NONAUTO W/O SCOPE CPT-4: 41137 01/30/2020 URINE CULTURE/ COLONY COUNT CPT-4: 68646 01/30/2020 URINALYSIS NONAUTO W/O SCOPE CPT-4: 35047 11/19/2019 INITIAL PREVENTIVE EXAM CPT-4: G0402 09/25/2019 URINALYSIS NONAUTO W/O SCOPE CPT-4: 50579 03/18/2019 URINE CULTURE/ COLONY COUNT CPT-4: 61376 03/18/2019 URINALYSIS NONAUTO W/O SCOPE CPT-4: 90775 12/12/2018 URINE CULTURE/ COLONY COUNT CPT-4: 95573 03/26/2018 URINALYSIS NONAUTO W/O SCOPE CPT-4: 49327 03/15/2018 INITIAL PREVENTIVE EXAM CPT-4: G0402 02/26/2018 URINALYSIS NONAUTO W/O SCOPE CPT-4: 77169 02/06/2018 URINE CULTURE/ COLONY COUNT CPT-4: 69926 02/06/2018 UA W/MICR CPT-4: 23749 02/06/2018 CUR TOBACCO NON-USER CPT-4: G8457 01/30/2018 REPAIR BLADDER & VAGINA CPT-4: 12719 01/06/2017 REPAIR OF RECTOCELE CPT-4: 53726 01/06/2017 BREAST SURGERY PROCEDURE CPT-4: 46378 Unknown LAPARO CHOLECYSTECTOMY/EXPLR CPT-4: 22309 Unknown HYSTERECTOMY/REVISE VAGINA CPT-4: 43671 Unknown Vital Signs Date Vital 01/30/2020 Blood Pressure 1: 126/69 Code: 8480-6 [...] 1: 106/58 Code: 8480-6 BMI: 26.3 Code: 54059-1 Heart Rate 1: 72 bpm Height: 4'10" Respiratory Rate: 20 bpm SpO2: 97% Tempera ture: 36.6 (C) / 97.8 (F) Weight: 128 lbs 07/10/2018 Blood Pressure 1: 122/70 Code: 8480-6 BMI: 28.6 Code: 31133-7 Heart Rate 1: 80 bpm Height: 4'10" Respiratory Rate: 20 bpm SpO2: 96% Tempera ture: 36.9 (C) / 98.4 (F) Weight: 139 lbs 05/06/2018 Blood Pressure 1: 112/54 Code: 8480-6 BMI: 27.5 Code: 51764-4 Heart Rate 1: 80 bpm Height: 4'10" [...] 1: 146/80 Code: 8480-6 BMI: 30.0 Code: 66507-2 Heart Rate 1: 76 bpm Height: 4'10" Respiratory Rate: 20 bpm SpO2: 97% Tempera ture: 36.7 (C) / 98.1 (F) Weight: 146 lbs 02/26/2018 Blood Pressure 1: 126/80 Code: 8480-6 BMI: 29.6 Code: 13265-2 Heart Rate 1: 80 bpm Height: 4'10" Respiratory Rate: 18 bpm SpO2: 96% Tempera ture: 37.0 (C) / 98.6 (F) Weight: 144 lbs 01/30/2018 Blood Pressure 1: 120/78 Code: 8480-6 BMI: 29.6 Code: 41796-1 Heart Rate 1: 84 bpm Height: 4'10" Respiratory Rate: 20 bpm SpO2: 97% Tempera ture: 36.0 (C) / 96.8 (F) Weight: 144 lbs Functional Status No Functional Status data Reason For Visit Reason For Visit Effective Dates Notes back pain 01/30/2020 follow up 11/24/2019 dizziness 11/19/2019 Annual Checkup 09/25/2019 pt labs are scanned into chart abdominal pain 08/26/2019 follow up 05/07/2019 follow up 04/23/2019 [facility] abdominal pain 03/27/2019 left lower quadrant back [...] up 07/10/2018 Hospital/ER fwup follow up 05/06/2018 [facility] abdominal pain 04/17/2018 follow up 03/26/2018 dizziness 03/15/2018 Patient had bladder biopsy on Sunday by Dr Noonan. states she has been holding her coumadin since Sunday insomnia 02/26/2018 blood in urine 02/06/2018 ~generic 01/30/2018 Establishing Care Encounters Encounter Performer Location Codes Date ([id number]) OFFICE/OUTPATIENT VISIT EST Diagnosis: Urinary tract infection, site not specified[ICD10: N39.0] Diagnosis: Left lower quadrant pain[ICD10: R10.32] Bhavna DAILY DO [facility] CPT-4: 77808 01/30/2020 ([id number]) OFFICE/OUTPATIENT VISIT EST Diagnosis: Hypotension[ICD10: I95.9] Diagnosis: Chronic kidney disease[ICD10: N18.9] Jalyn DAILY [facility] CPT-4: 96704 11/24/2019 ([id number]) OFFICE/OUTPATIENT VISIT EST Diagnosis: Hypotension[ICD10: I95.9] Diagnosis: Dizziness and giddiness[ICD10: R42] Diagnosis: Polyuria[ICD10: R35.8] Jalyn Landeros [facility] CPT-4: 41428 11/19/2019 ([id number]) OFFICE/OUTPATIENT VISIT EST Diagnosis: Sigmoid diverticulitis[ICD10: K57.32] [facility] 40728 08/26/2019 ([id number]) OFFICE/OUTPATIENT VISIT EST Diagnosis: Clostridium difficile colitis[ICD10: A04.72] [facility] 40159 05/07/2019 ([id number]) OFFICE/OUTPATIENT VISIT EST Diagnosis: Clostridium difficile colitis[ICD10: A04.72] Diagnosis: Edema[ICD10: R60.9] Jalyn DAILY [facility] CPT-4: 68620 04/23/2019 ([id number]) OFFICE/OUTPATIENT VISIT EST Diagnosis: Constipation[ICD10: K59.00] Diagnosis: Left lower quadrant pain[ICD10: R10.32] Bhavna Garydi [facility]: 30106 03/27/2019 ([id number]) OFFICE/OUTPATIENT VISIT EST Diagnosis: Acute kidney failure, unspecified[ICD10: N17.9] [facility] 10162 03/18/2019 ([id number]) OFFICE/OUTPATIENT VISIT EST Diagnosis: Essential (primary) hypertension[ICD10: I10] Diagnosis: Chronic atrial fibrillation[ICD10: I48.2] Diagnosis: Mixed hyperlipidemia[ICD10: E78.2] Diagnosis: Other fatigue[ICD10: R53.83] Diagnosis: Abdominal distension (gaseous)[ICD10: R14.0] Jalyn DAILY DO [facility] CPT-4: 37287 02/12/2019 ([id number]) OFFICE/OUTPATIENT VISIT EST Diagnosis: Low back pain[ICD10: M54.5] Bhavna DOUGHERTY S. O RENDER DO [facility] CPT-4: 47832 12/25/2018 ([id number]) OFFICE/OUTPATIENT VISIT EST Diagnosis: Low back pain[ICD10: M54.5] Bhavna DOUGHERTY S. O RENDER DO [facility] CPT-4: 48269 12/12/2018 ([id number]) OFFICE/OUTPATIENT VISIT EST Diagnosis: Anemia, unspecified[ICD10: D64.9] Diagnosis: Chronic atrial fibrillation[ICD10: I48.2] Diagnosis: Other fatigue[ICD10: R53.83] Jalyn DAILY DO [facility] CPT-4: 33042 10/10/2018 ([id number]) OFFICE/OUTPATIENT VISIT EST Diagnosis: Acute on chronic combined systolic (congestive) and diastolic (congestive) heart failure[ICD10: I50.43] Diagnosis: Chronic atrial fibrillation[ICD10: I48.2] Jalyn DAILY DO [facility] CPT-4: 62122 08/27/2018 ([id number]) OFFICE/OUTPATIENT VISIT EST Diagnosis: Chronic atrial fibrillation[ICD10: I48.2] 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] Diagnosis: [facility] (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[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] Jalyn DAILY DO [facility] CPT-4: 13946 08/13/2018 ([id number]) OFFICE/OUTPATIENT VISIT EST Diagnosis: Acute on chronic combined systolic (congestive) and diastolic (congestive) heart failure[ICD10: I50.43] Diagnosis: Essential (primary) hypertension[ICD10: I10] Diagnosis: Anemia, unspecified[ICD10: D64.9] Jalyn Gottliebnahidnéstor GIBBONSLIN Rogers DAILY [employer] [facility] CPT-4: 86831 07/10/2018 ([id number]) OFFICE/OUTPATIENT VISIT EST Diagnosis: Chronic atrial fibrillation[ICD10: I48.2] Diagnosis: Acute on chronic combined systolic (congestive) and diastolic (congestive) heart failure[ICD10: I50.43] Diagnosis: Localized edema[ICD10: R60.0] Jalyn DAILY DO [facility] CPT-4: 34388 05/06/2018 ([id number]) OFFICE/OUTPATIENT VISIT EST Diagnosis: Generalized abdominal pain[ICD10: R10.84] Diagnosis: Pelvic and perineal pain[ICD10: R10.2] Diagnosis: Localized edema[ICD10: R60.0] Bhavna DAILY DO [facility] CPT-4: 13790 04/17/2018 ([id number]) OFFICE/OUTPATIENT VISIT EST Diagnosis: Urinary tract infection, site not specified[ICD10: N39.0] Diagnosis: Other insomnia[ICD10: G47.09] Diagnosis: Other fatigue[ICD10: R53.83] Diagnosis: Other forms of dyspnea[ICD10: R06.09] Diagnosis: Chronic atrial fibrillation[ICD10: I48.2] Diagnosis: Restless legs syndrome[ICD10: G25.81] Jalyn DAILY [employer] [facility] CPT-4: 55087 03/26/2018 ([id number]) OFFICE/OUTPATIENT VISIT EST Diagnosis: Altered mental status, unspecified[ICD10: R41.82] Diagnosis: [facility] (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[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] Diagnosis: Hematuria, unspecified[ICD10: R31.9] Bhavna DAILY [employer] [facility] CPT-4: 92214 03/15/2018 ([id number]) NURSE/OUTPATIENT VISIT EST Diagnosis: Urinary tract infection, site not specified[ICD10: N39.0] Jalyn DAILY [employer] [facility] CPT-4: 69030 02/06/2018 OFFICE/OUTPATIENT VISIT NEW Diagnosis: [facility] (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[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] Diagnosis: Essential (primary) hypertension[ICD10: I10] Diagnosis: Mixed hyperlipidemia[ICD10: E78.2] Diagnosis: Other fatigue[ICD10: R53.83] Diagnosis: Cardiac arrhythmia, unspecified[ICD10: I49.9] Diagnosis: Generalized abdominal pain[ICD10: R10.84] Diagnosis: Urinary tract infection, site not specified[ICD10: N39.0] Diagnosis: Other insomnia[ICD10: G47.09] Bhavna Escalante JALYN DAILY DO [facility] CPT-4: 26871 01/30/2018 Plan of Care Planned Activity Notes Codes Status Date Visit Diagnosis Plan: Left lower quadrant pain Discuss ion: patient doesn't tolerate cipro/flagyl, allergic to bactrim, and reports pain/diarrhea with vancomycin. will do trial of augmentin tid to cover for uti vs diverticulitis. will send urine off for culture but instructed to call next week if no improvement. to ED over the weekend with worsening symptoms. ICD-9 : 789.04 ICD-10 : R10.32 01/30/2020 Patient Education: temazepam- [employer] Coupon [id number] https://www.[employer]/sampleCoin/resources/getResource/61/[email or web address]-[email or web address] Completed 01/30/2020 Patient Education: temazepam- [employer] Coupon [id number] [email or web address]://www.[employer]/Runnit/resources/getResource/61/[email or web address] Completed 01/30/2020 Visit Diagnosis Plan: Chronic kidney [...] I95.9 11/24/2019 Appointment: [facility] [phone] [facility] [facility] 11/24/2019 Visit Diagnosis Plan: Hypotension Discussion: BP today is okay ICD-9 : 458.9 ICD-10 : I95.9 11/19/2019 Visit Diagnosis Plan: Polyuria Discussion: UA normal ICD-9 : 788.42 ICD-10 : R35.8 11/19/2019 Visit Diagnosis Plan: Dizziness and giddiness Discussi on: Check lab--CBC, CMP, TSH, PT/INR now ICD-9 : 780.4 ICD-10 : R42 11/19/2019 Appointment: Jalyn Daily WPtel: [address] [place], [place] [id number] ACUTE ILLNESS 11/19/2019 Patient Education: Colace- [employer] Coupon [id number] [email or web address]/samplemd/resources/getResource/61/[email or web address] Completed 11/19/2019 Visit Diagnosis Plan: Encounter for [facility] adult medical examination with abnormal findings [...] : 401.9 ICD-10 : I10 09/25/2019 Appointment: Jalyn Daily WPtel: [facility] [facility] Well Visit 09/25/2019 Care Plan: COMPREHEN METABOLIC PAN[place] : 72184-6 Pending 09/22/2019 Care Plan: COMPLETE CBC W/AUTO DIFF WBC LOINC : 18739-7 Pending 09/22/2019 Appointment: Bhavna Escalante [address] [facility] pt. feeling better and still had [...] : K57.32 08/26/2019 Appointment: Jalyn Daily WPtel: [address] [place], [place] [address] ACUTE ILLNESS 08/26/2019 Appointment: Jalyn Daily WPtel: [address] [place], [place] [address] originally 4 mo follow up CANCELED 2018 Visit Diagnosis Plan: Clostridium difficile colitis Di scussion: Vancomycin daily for another week then 125mg every 3 days for 1 month then stop Fwup in September ICD-9 : 008.45 ICD-10 : A04.72 05/07/2019 Appointment: Jalyn Daily WPtel: [address] [place] [address] FOLLOW UP 05/07/2019 Visit Diagnosis Plan: Edema [...] : 008.45 ICD-10 : A04.72 04/23/2019 Appointment: Jalyn Daily WPtel: [address] [place], [place] [id number] Hospital Follow Up 04/23/2019 Appointment: Bhavna Escalante [address] [place] [address] US CANCELED 04/15/2019 Visit Diagnosis Plan: Left lower quadrant pain Discuss ion: will start with abdominal xray to rule out acute obstruction/constipation. if no acute findings, will treat as diverticulitis due to patient's past history. ICD-9 : 789.04 ICD-10 : R10.32 03/27/2019 Appointment: Bhavna Escalante [address] [place], [place] [address] ACUTE ILLNESS 03/27/2019 Visit Diagnosis Plan: Acute kidney failure, unspecifie d Discussion: Was given Meloxicam at urgent care--discussed no NSAIDs, hydrate, repeat Chem 7 in 1 week ICD-9 : 584.9 ICD-10 : N17.9 03/18/2019 Appointment: Jalyn Daily WPtel: [address] [place] [address] ACUTE ILLNESS 03/18/2019 Visit Diagnosis Plan: Abdominal distension (gaseous) D iscussion: Trial of Zenpep q AC ICD-9 : 787.3 ICD-10 : R14.0 02/12/2019 Visit Diagnosis Plan: Essential (primary) hypertension Discussion: Stable ICD-9 : 401.9 ICD-10 : I10 02/12/2019 Visit Diagnosis Plan: Chronic atrial fibrillation Disc ussion: Following routinely with Cardiology ICD-9 : 427.31 ICD-10 : I48.2 02/12/2019 Appointment: Jalyn Daily WPtel: [address] [place] [address] US FOLLOW UP 02/12/2019 Appointment: Bhavna Escalante [address] [place] [address] [place] Canceled per guillermina. sending for mri [...] ICD-10 : M54.5 12/25/2018 Appointment: Bhavna Escalante [address] [place] [address] ACUTE ILLNESS 12/25/2018 Visit Diagnosis Plan: Low [...] ICD-10 : M54.5 12/12/2018 Appointment: Bhavna Escalante [address] [place] [address] ACUTE ILLNESS 12/12/2018 Patient Education: cyclobenzaprine- [employer] Coupon [id number] https://www.[employer]/resources/getResource/61/no5953e7-z535-4g8a-l6 Completed 12/12/2018 Appointment: Bhavna Escalante [address] [place] [address] US CANCELED 12/06/2018 Visit Diagnosis Plan: Chronic atrial fibrillation Disc ussion: Cardiology monitoring PT/INR Follow Up: 4 months ICD-9 : 427.31 ICD-10 : I48.2 10/10/2018 Visit Diagnosis Plan: Anemia, unspecified Discussion: Update CBC ICD-9 : 285.9 ICD-10 : D64.9 10/10/2018 Visit Diagnosis Plan: Other fatigue Discussion: Increa se activity--discussed 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 [place] [address] US FOLLOW UP 08/27/2018 Visit Diagnosis Plan: [...] fibrillation Disc ussion: Has fwup with Dr. 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 Discussion: Increase Coumadin to 5mg po daily and repeat PT/INR in 2 weeks ICD-9 : V58.61 ICD-10 : Z79.01 08/13/2018 Appointment: [facility] [phone] [facility] [facility] 08/13/2018 Patient Education: bumetanide- [employer] Coupon [id number] https://www.[employer]/resources/getResource/61/7bi04b87-5aw2-4d34-yn Completed 08/13/2018 Patient Education: levothyroxine- [employer] Coupon [phone] https://www.[employer]/resources/getResource/61/1318811g-8506-8u63-np Completed 08/13/2018 Patient Education: warfarin- [employer] Coupon [id number] https://www.[employer]/resources/getResource/61/38801151-jx45-22z6-9t Completed 08/13/2018 Patient Education: pantoprazole- [employer] Coupon [phone] https://www.[employer]/resources/getResource/61/d7697g67-02s8-18fm-5v Completed 08/13/2018 Patient Education: spironolactone- [employer] Coupon [phone] https://www.[employer]/resources/getResource/61/3nc417e9-h452-4949-as Completed 08/13/2018 Visit Diagnosis Plan: Anemia, unspecified [...] : I50.43 07/10/2018 Appointment: Jalyn Daily WPtel: [address] [place] [address] 2nd FOLLOW UP 07/10/2018 Visit Diagnosis Plan: Acute on chronic c ombined systolic (congestive) and diastolic (congestive) heart failure Discussion: Much improved on entresto an d lasix See cardilogy tomorrow in fw Discussed restarting cardiac rehab in 3 weeks Check Chem 7 Follow Up: 2 months ICD-9 : 428.43 ICD-10 : I50.43 05/06/2018 Visit Diagnosis Plan: Chronic atrial fibrillation Disc ussion: S/P new pacemaker/defibrillator ICD-9 : 427.31 ICD-10 : I48.2 05/06/2018 Appointment: Jalyn Daily WPtel: [address] [place] [address] US FOLLOW UP 05/06/2018 Visit Diagnosis Plan: Generalized abdominal pain Discu ssion: patient to sent to hospital for stat ct of abd/pelvis due to clinical s/s. ICD-9 : 789.07 ICD-10 : R10.84 04/17/2018 Visit Diagnosis Plan: Localized edema Discussion: will obtain ultrasound records from dr. guardado but ct abd/pelvis ordered to be completed today to rule out mass/other concerning factor causing unilateral swelling. continue with compress ion hose to left leg as well as elevation. ICD-9 : 782.3 ICD-10 : R60.0 04/17/2018 Visit Diagnosis Plan: Pelvic and perineal pain Discuss ion: same as other plans ICD-9 : 625.9 ICD-10 : R10.2 04/17/2018 Appointment: Bhavna Escalante [address] [place] [address] ACUTE ILLNESS 04/17/2018 Patient Education: Patient Medication Summary Completed 04/17/2018 Care Plan: CT ABDOMEN W/O & W/DYE LOINC : 62793-7 Pending 04/17/2018 Care Plan: CT PELVIS W/O & W/DYE LOINC : 15472-4 Pending 04/17/2018 Appointment[facility] [phone] [facility] [facility] CANCELED 04/10/2018 Visit Diagnosis Plan: [...] : 327.09 ICD-10 : G47.09 03/26/2018 Appointment: [facility]el[facility] [phone] [facility] [facility] Follow UP 03/26/2018 Patient Education: [...] ICD-10 : R41.82 03/15/2018 Appointment: Bhavna Escalante [address] [place] [address] ACUTE ILLNESS 03/15/2018 Patient Education: Patient Medication Summary Completed 03/15/2018 Visit Diagnosis Plan: Primary insomnia Discussion: Tri al of elavil 10mg po q HS ICD-9 : 780.52 ICD-10 : F51.01 02/26/2018 Visit Diagnosis Plan: Functional dyspepsia Discussion: Increase protonix to 40mg po BID Follow Up: 1 months ICD-9 : 536.8 ICD-10 : K30 02/26/2018 Appointment: Jalyn Daily WPtel: [address] [place] [address] WELCOME TO MEDICARE 02/26/2018 Patient Education: Patient Medication Summary Completed 02/26/2018 Referral: Song Noonan WPtel: [address] [place], [place] [address] [place] Referral Initiated 02/19/2018 Appointment: Jalyn Daily WPtel: [address] [place], [place] [id number] US LAB 02/06/2018 Patient Education: Patient Medication Summary Completed 02/06/2018 Appointment: Jalyn Daily WPtel: [address] [place], [place] [phone] US CANCELED 02/01/2018 Care Plan: US EXAM ABDOM COMPLETE liver LOINC : 05770-5 Pending 01/31/2018 Visit Diagnosis Plan: Other fatigue Discussion: will o rder fasting blood work to assess for any anemia or infection especially due to recent surgery and bleeding risks. ICD-9 : 780.79 ICD-10 : R53.83 01/30/2018 Visit Diagnosis Plan: Cardiac arrhythmia, unspecified Discussion: keep appt with dr. guardado on feb 07. ICD-9 : 427.9 ICD-10 [...] ICD-10 : I10 01/30/2018 Visit Diagnosis Plan: [facility] (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 Discussion: instructed to avoid taking iubprofen while taking coumadin to prevent bleeding concerns. informed her to take tylenol or remaining hydrocodone from surgery if pain develops. ICD-9 : V58.61 ICD-10 : Z79.01 01/30/2018 Appointment: Bhavna Escalante [address] [place], [place] [address] NEW PATIENT 01/30/2018 Patient Education: Patient Medication Summary Completed 01/30/2018 Instructions No Instructions Medical Equipment No Medical Equipment data Health Concerns Section Health Concerns data not found Goals Section Goals data not found Interventions Section Interventions data not found Health Status Evaluations/Outcomes Section Health Status Evaluations/Outcomes data not found Advance Directives No Advance Directive data
--- OUTSIDE RECORDS SUMMARY | 2020-02-10 14:00 | XMS REPORT | CCD ---
Author Author Riana Escalante Organization [facility] Address [address] [place] [address] Phone Unavailable Care Team Providers Care Drama Professor Name Role Phone PP Unavailable CCM Unavailable Summary Purpose Interface Exchange Insurance Providers Payer name Policy type / Coverage type Covered constitution party ID Effective Begin Date Effective End Date WPS MEDICARE PART B [place] Medicare Part B [id number] 2017 Unknown Cigna Medicare Part B [id number] 2017 Unknown Family History Family History data not found Social History Social History Element Codes Description Effective Dates Tobacco history SNOMED CT: 991622787 Never smoker 01/30/[address]: 072724606 Never drinks alcohol 2017 Allergies, Adverse Reactions, [...] hypertension ICD-9: 401.9 ICD-10: I10 01/30/2018 Active assisted (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 ICD-9: V58.6 1 [...] Fill Instructions temazepam 15 mg capsule RxNorm: 359487 TAKE 1 TO 2 CAPS ULES BY MOUTH AT BEDTIME NEEDED FOR SLEEP 01/30/2020 01/30/2020 Inactive Augmentin 875 mg-125 mg tablet RxNorm: 856761 1 Tablet( s) Oral three times a day 01/30/2020 02/05/2020 Active temazepam 15 mg capsule RxNorm: 892099 TAKE 1 TO 2 CAPS ULES BY MOUTH AT BEDTIME NEEDED FOR SLEEP 01/30/2020 01/29/2020 Inactive Augmentin 875 mg-125 mg tablet RxNorm: 009147 1 Tablet( s) Oral three times a day 01/30/2020 01/29/2020 Inactive levothyroxine 25 mcg tablet RxNorm: 881925 1 Tablet(s) Oral QD 07/201904/06/2020 Active potassium chloride ER 10 mEq capsule,extended release RxNorm : 883367 TAKE ONE CAPSULE BY MOUTH TWICE A DAY OF AND TAKE ONE CAPSULE BY MOUTH DAILY ON -Sun12/23/2019 No Stop Date Active Colace 100 mg capsule RxNorm: 2182310 1 Capsule(s) Oral three ti mes a day 11/19/2019 12/19/2019 Inactive warfarin 5 mg tablet RxNorm: 569692 1 Tablet(s) Oral MW F and 1/2 tablet (2.5mg) , [facility], 09/30/2019 12/29/2019 Inactive levothyroxine 25 mcg tablet RxNorm: 443640 TAKE ONE TABLET BY M OUTH DAILY 09/30/2019 01/06/2020 Inactive potassium chloride ER 10 mEq capsule,extended release RxNorm : 788694 1 Capsule(s) Oral two times a day on and 1 capsule 09/26/2019 09/26/2019 Inactive vancomycin 125 mg capsule RxNorm: 099407 2 Capsule(s) Oral Q8H 08/0909/05/2019 Inactive warfarin 5 mg tablet RxNorm: 646174 1 Tablet(s) Oral MW F and 1/2 tablet (2.5mg) , [facility] [employer] [facility] 08/26/2019 09/29/2019 Inactive Colace 100 mg capsule RxNorm: 2194505 1 Capsule(s) Oral QD 08/26/1911/18/2019 Inactive levothyroxine 25 mcg tablet RxNorm: 745651 1 Tablet(s) PO QD 201909/29/2019 Inactive spironolactone 25 mg tablet RxNorm: 694750 TAKE 1 TABLET BY DOUGLAS TWICE DAILY 06/22/2019 09/19/2019 Inactive losartan 25 mg tablet RxNorm: 222457 TAKE 1 TABLET BY M OUTH ONCE DAILY IN THE MORNING 05/26/2019 No Stop Date Active bumetanide 1 mg tablet RxNorm: 325737 TAKE 1 TABLET BY MOUTH TWICE DAILY AT 6AM AND 6PM 05/23/2019 No Stop Date Active vancomycin 125 mg capsule RxNorm: 179695 1 Capsule(s) Oral Q3D 04/1008/25/2019 Inactive pantoprazole 40 mg tablet,delayed release RxNorm: 229860 1-2 Ta blet(s) Oral QD 04/23/2019 05/23/2019 Inactive potassium chloride ER 10 mEq capsule,extended release RxNorm : 371174 1 Capsule(s) Oral QD 04/23/2019 09/25/2019 Inactive warfarin 5 mg tablet RxNorm: 686245 Tablet(s) Oral Take 1 tablet (5mg) by mouth on and Sun then 1/2 tablet (2.5mg) on Sun, Sun, Thurs, Sat and Sun 04/23/2019 08/25/2019 Inactive temazepam 15 mg capsule RxNorm: 204543 TAKE 1 TO 2 CAPS ULES BY MOUTH AT BEDTIME NEEDED FOR SLEEP 04/08/2019 09/25/2019 Inactive Cipro 250 mg tablet RxNorm: 412992 1 Tablet(s) Oral two times a day 03/27/2019 04/03/2019 Inactive metronidazole 500 mg tablet RxNorm: 242125 1 Tablet(s) Oral thr ee times a day 03/27/2019 04/03/2019 Inactive bumetanide 1 mg tablet RxNorm: 076248 1 Tablet(s) PO BID (6am a nd 6pm) 02/13/2019 05/13/2019 Inactive levothyroxine 25 mcg tablet RxNorm: 739127 1 Tablet(s) PO QD 201807/13/2019 Inactive warfarin 5 mg tablet RxNorm: 173889 1 TABLET(S) PO TU , SUN, THURS, SAT AND SUN AND 1/2 TABLET ON 02/04/2019 02/11/2019 Inactive Kendra ent requests 90 days supply warfarin 5 mg tablet RxNorm: 476688 1 TABLET(S) PO TUES , WED, THURS, SAT AND SUN AND 1/2 TABLET ON 02/03/2019 02/03/2019 Inactive Kendra ent requests 90 days supply levothyroxine 25 mcg tablet RxNorm: 625102 1 Tablet(s) PO QD 201802/03/2019 Inactive warfarin 5 mg tablet RxNorm: 700418 1 Tablet(s) PO Tu , Wed, Thurs, Sat and Sun and 1/2 tablet on 01/31/2019 02/02/2019 Inactive temazepam 15 mg capsule RxNorm: 171331 TAKE 1 TO 2 CAPS ULES BY MOUTH AT BEDTIME NEEDED FOR SLEEP 01/31/2019 04/07/2019 Inactive cyclobenzaprine 10 mg tablet RxNorm: 254611 1 Tablet(s) PO Q8H as needed 12/30/2018 09/25/2019 Inactive losartan 25 mg tablet RxNorm: 658722 1 Tablet(s) PO QAM 12/27/2018 Inactive Lidoderm 5 % topical patch RxNorm: 6758297 1 Application TOP Q12H and then off for 12 hours 12/25/2018 01/23/2019 Inactive Lidoderm 5 % topical patch RxNorm: 8329566 1 Application TOP Q12H and then off for 12 hours 12/25/2018 12/24/2018 Inactive cyclobenzaprine 5 mg tablet RxNorm: 279470 1 Tablet(s) PO Q8H a s needed 12/12/2018 12/24/2018 Inactive spironolactone 25 mg tablet RxNorm: 743973 1 Tablet(s) PO BID 09/2006/16/2019 Inactive change in directions to BID pantoprazole 40 mg tablet,delayed release RxNorm: 276360 1 Tabl et(s) PO QD 09/20/2018 04/22/2019 Inactive Patient requests 9 0 days supply spironolactone 25 mg tablet RxNorm: 403987 1 Tablet(s) PO BID 08/2609/19/2018 Inactive change in directions to BID pantoprazole 40 mg tablet,delayed release RxNorm: 546958 1 Tabl et(s) PO QD 08/15/2018 09/19/2018 Inactive Patient requests 9 0 days supply carvedilol 6.25 mg tablet RxNorm: 873757 1 Tablet(s) PO BID 019 02/08/2019 Inactive pantoprazole 40 mg tablet,delayed release RxNorm: 917136 1 Tablet(s) PO QD 1 TABLET(S) PO BID 08/13/2018 08/15/2018 Inactive Patient reque sts 90 days supply bumetanide 1 mg tablet RxNorm: 499636 1 Tablet(s) PO BID (6am a nd 6pm) 08/13/2018 02/08/2019 Inactive bumetanide 0.5 mg tablet RxNorm: 376845 1 Tablet(s) PO QPM three days a week--Sunday, Sun, Sunday instead of 1mg dose in evening 08/13/201812/2018 Inactive levothyroxine 25 mcg tablet RxNorm: 239066 1 Tablet(s) PO QD 201801/30/2019 Inactive spironolactone 25 mg tablet RxNorm: 113880 1 Tablet(s) PO QD 201808/25/2018 Inactive losartan 25 mg tablet RxNorm: 756907 1 Tablet(s) PO QAM 08/13/2018 Inactive warfarin 5 mg tablet RxNorm: 968392 1 Tablet(s) PO QD 08/13/201808/09 Inactive pantoprazole 40 mg tablet,delayed release RxNorm: 751421 1 TABL ET(S) PO BID 08/02/2018 08/12/2018 Inactive Patient requests 9 0 days supply temazepam 15 mg capsule RxNorm: 626916 1-2 Capsule(s) P O QHS as needed for sleep 2018 01/31/2019 Inactive Restoril 15 mg capsule RxNorm: 562408 1-2 Capsule(s) PO QHS as needed for sleep 06/04/2018 08/12/2018 Inactive potassium chloride ER 10 mEq capsule,extended release RxNorm : 907457 2 CAPSULE(S) PO QD 05/07/2018 08/04/2018 Inactive Patient reque sts 90 days supply temazepam 22.5 mg capsule RxNorm: 158462 1 Capsule(s) P O QHS as needed for sleep 05/06/2018 08/12/2018 Inactive potassium chloride ER 10 mEq capsule,extended release RxNorm : 057032 2 Capsule(s) PO QD 05/06/2018 05/06/2018 Inactive ropinirole 1 mg tablet RxNorm: 829241 1 TABLET(S) PO QHS FOR RE STLESS LEGS 03/27/2018 04/25/2018 Inactive Patient requests 9 0 days supply ropinirole 1 mg tablet RxNorm: 903620 1 Tablet(s) PO QHS for re stless legs 03/26/2018 03/26/2018 Inactive cefdinir 300 mg capsule RxNorm: 212161 1 Capsule(s) PO BID 03/26/20 18 03/30/2018 Inactive temazepam 15 mg capsule RxNorm: 909520 1 Capsule(s) PO QHS as neede d 03/20/2018 03/25/2018 Inactive Lunesta 3 mg tablet RxNorm: 488367 1 Tablet(s) PO QHS as needed for sleep 03/04/2018 03/19/2018 Inactive amitriptyline 10 mg tablet RxNorm: 329655 1 Tablet(s) PO QHS fo r sleep 02/26/2018 03/03/2018 Inactive escitalopram 20 mg tablet RxNorm: 588903 1 Tablet(s) PO QHS 018 08/12/2018 Inactive pantoprazole 40 mg tablet,delayed release RxNorm: 439747 1 Tabl et(s) PO BID 02/26/2018 04/26/2018 Inactive Coumadin 2.5 mg tablet RxNorm: 409901 1 Tablet(s) PO MWF 02/18/2018 0 07/22/2018 Inactive amiodarone 200 mg tablet RxNorm: 954084 1 Tablet(s) PO QD No Start Da te Active colestipol 1 gram tablet RxNorm: 1253014 1 Tablet(s) PO BID No Start Date Active pantoprazole 40 mg tablet,delayed release RxNorm: 419229 1 Tabl et(s) PO QD No Start Date Active pantoprazole 40 mg tablet,delayed release RxNorm: 547324 1 Tabl et(s) PO QD No Start Date 02/25/2018 Inactive bumetanide 1 mg tablet RxNorm: 883222 1 Tablet(s) PO BID (6am a nd 6pm) No Start Date 08/12/2018 Inactive potassium chloride ER 10 mEq tablet,extended release RxNorm: 496682 1 Tablet(s) PO QD No Start Date 02/11/2019 Inactive levothyroxine 25 mcg tablet RxNorm: 099384 1 Tablet(s) PO QD No Sta rt Date 08/12/2018 Inactive spironolactone 25 mg tablet RxNorm: 673964 1 Tablet(s) PO QD No Sta rt Date 08/12/2018 Inactive warfarin 5 mg tablet RxNorm: 394184 1 Tablet(s) PO MWF No Start Date 08/12/2018 Inactive warfarin 5 mg tablet RxNorm: 036398 1 Tablet(s) PO Tues , Wed, Thurs, Sat and Sun then 1/2 tablet (2.5mg) on Mon & Fri No Start Date 08/12/2018 Inactive losartan 25 mg tablet RxNorm: 228625 1 Tablet(s) PO QAM No Start Da te 08/12/2018 Inactive carvedilol 6.25 mg tablet RxNorm: 852788 1 Tablet(s) PO BID No Star t Date 08/12/2018 Inactive warfarin 2.5 mg tablet RxNorm: 736379 1 Tablet(s) PO , Thur s, Sat and Sun No Start Date 08/12/2018 Inactive Coumadin 2.5 mg tablet RxNorm: 058845 Tablet(s) Mon Sun and Sun PO No Start Date 02/17/2018 Inactive Children's Multivitamin with Iron tablet RxNorm: 1 Table t(s) PO QD No Start Date 04/22/2019 Inactive potassium chloride ER 20 mEq tablet,extended release(p art/cryst) RxNorm: 6956179 2 Tablet(s) PO QD No Start Date 05/05/2018 Inactive Coumadin 5 mg tablet RxNorm: 021162 Tablet(s) PO No Start Date 2017 Inactive mexiletine 200 mg capsule RxNorm: 9731392 1 Capsule(s) PO BID No St art Date 03/25/2018 Inactive ferrous sulfate 325 mg (65 mg iron) tablet RxNorm: 027520 1 Tab let(s) PO QD No Start Date 07/22/2018 Inactive cyclobenzaprine 10 mg tablet RxNorm: 370460 1 Tablet(s) PO Q8H as needed No Start Date 12/29/2018 Inactive potassium chloride ER 10 mEq capsule,extended release RxNorm : 988494 2 Capsule(s) PO QD No Start Date 12/11/2018 Inactive Coumadin 5 mg tablet RxNorm: 174128 1 Tablet(s) PO , Th, Sat and Sun No Start Date 07/22/2018 Inactive Restoril 15 mg capsule RxNorm: 034487 1-2 Capsule(s) PO QHS as needed for sleep No Start Date 05/05/2018 Inactive metoprolol succinate ER 25 mg tablet,extended release 24 hr RxNorm: 273037 1 Tablet(s) PO QD No Start Date 08/12/2018 Inactive Entresto 24 mg-26 mg tablet RxNorm: 5158975 1 Tablet(s) PO BID No S tart Date 08/12/2018 Inactive warfarin 5 mg tablet RxNorm: 497694 1 Tablet(s) PO , Sun, , Sat and Sun and 1/2 tablet on Mon/Fri No Start Date 01/30/2019 Inactive amiodarone 200 mg tablet RxNorm: 352550 2 Tablet(s) PO BID No Start Date 10/09/2018 Inactive furosemide 20 mg tablet RxNorm: 756713 1 Tablet(s) PO QD No Start D ate 08/12/2018 Inactive amiodarone 200 mg tablet RxNorm: 672333 1 Tablet(s) PO BID No Start Date 08/26/2018 Inactive atorvastatin 40 mg tablet RxNorm: 463925 1 Tablet(s) PO QD No Start Date 08/12/2018 Inactive warfarin 5 mg tablet RxNorm: 786844 1/2 Tablet(s) PO on Sun, Sun, Sun, Sun then 1 tablet on Sun, , Sun No Start Date 04/22/2019 Inactive Medication Administered No Medication Administered data Immunizations Vaccine Codes Date Status Hepatitis A CVX: 83 11/20/2019 Pneumovax CVX: 33 05/14/2019 Hepatitis A CVX: 83 03/25/2019 Influenza CVX: 135 03/25/2019 Results Observation Observation Code Item Item Code Result Date S ervice Location UA W/MICR 16155 UA Urine Appear Normal 02/06/2018 Unk nown UA W/MICR 72188 UA Protein 3+ 02/06/2018 Unknown UA W/MICR 86417 UA Hemoglobin Trace 02/06/2018 Unkno wn UA W/MICR 43704 UA Glucose Negative 02/06/2018 Unknown UA W/MICR 58544 UA Ketones Negative 02/06/2018 Unknown UA W/MICR 51361 UA pH 5.5 02/06/2018 Unknown UA W/MICR 35455 U Spec [place] 1.025 02/06/2018 Unkn own UA W/MICR 07955 UA Bilirubin Negative 02/06/2018 Unknow n UA W/MICR 37720 UA Leuk Esteras Trace 02/06/2018 Unk nown UA W/MICR 81260 UA Nitrite NEG 02/06/2018 Unknown UA W/MICR 38487 UA WBC/hpf 11-25 02/06/2018 Unknown UA W/MICR 99106 UA Hyaline Cast 16-25 02/06/2018 Unk nown UA W/MICR 43663 UA RBC hpf 0-5 02/06/2018 Unknown UA W/MICR 63983 UA Squam Epi Few 02/06/2018 Unknow n Procedures Procedure Codes Date URINALYSIS NONAUTO W/O SCOPE CPT-4: 47800 01/30/2020 URINE CULTURE/ COLONY COUNT CPT-4: 83151 01/30/2020 URINALYSIS NONAUTO W/O SCOPE CPT-4: 46429 11/19/2019 INITIAL PREVENTIVE EXAM CPT-4: G0402 09/25/2019 URINALYSIS NONAUTO W/O SCOPE CPT-4: 30460 03/18/2019 URINE CULTURE/ COLONY COUNT CPT-4: 16265 03/18/2019 URINALYSIS NONAUTO W/O SCOPE CPT-4: 09432 12/12/2018 URINE CULTURE/ COLONY COUNT CPT-4: 27962 03/26/2018 URINALYSIS NONAUTO W/O SCOPE CPT-4: 01278 03/15/2018 INITIAL PREVENTIVE EXAM CPT-4: G0402 02/26/2018 URINALYSIS NONAUTO W/O SCOPE CPT-4: 01282 02/06/2018 URINE CULTURE/ COLONY COUNT CPT-4: 38220 02/06/2018 UA W/MICR CPT-4: 90631 02/06/2018 CUR TOBACCO NON-USER CPT-4: G8457 01/30/2018 REPAIR BLADDER & VAGINA CPT-4: 26440 01/06/2017 REPAIR OF RECTOCELE CPT-4: 86175 01/06/2017 BREAST SURGERY PROCEDURE CPT-4: 21327 Unknown LAPARO CHOLECYSTECTOMY/EXPLR CPT-4: 24050 Unknown HYSTERECTOMY/REVISE VAGINA CPT-4: 68274 Unknown Vital Signs Date Vital 01/30/2020 Blood [...] 1: 106/58 Code: 8480-6 BMI: 26.3 Code: 96029-0 Heart Rate 1: 72 bpm Height: 4'10" Respiratory Rate: 20 bpm SpO2: 97% Tempera ture: 36.6 (C) / 97.8 (F) Weight: 128 lbs 07/10/2018 Blood Pressure 1: 122/70 Code: 8480-6 BMI: 28.6 Code: 11632-0 Heart Rate 1: 80 bpm Height: 4'10" Respiratory Rate: 20 bpm SpO2: 96% Tempera ture: 36.9 (C) / 98.4 (F) Weight: 139 lbs 05/06/2018 Blood Pressure 1: 112/54 Code: 8480-6 BMI: 27.5 Code: 16581-5 Heart Rate 1: 80 bpm Height: 4'10" [...] 1: 146/80 Code: 8480-6 BMI: 30.0 Code: 12034-5 Heart Rate 1: 76 bpm Height: 4'10" Respiratory Rate: 20 bpm SpO2: 97% Tempera ture: 36.7 (C) / 98.1 (F) Weight: 146 lbs 02/26/2018 Blood Pressure 1: 126/80 Code: 8480-6 BMI: 29.6 Code: 63608-5 Heart Rate 1: 80 bpm Height: 4'10" Respiratory Rate: 18 bpm SpO2: 96% Tempera ture: 37.0 (C) / 98.6 (F) Weight: 144 lbs 01/30/2018 Blood Pressure 1: 120/78 Code: 8480-6 BMI: 29.6 Code: 94536-8 Heart Rate 1: 84 bpm Height: 4'10" [...] 08/26/2019 follow up 05/07/2019 follow up 04/23/2019 [facility] abdominal pain 03/27/2019 left lower quadrant back [...] up 07/10/2018 Hospital/ER fwup follow up 05/06/2018 [facility] abdominal pain 04/17/2018 follow up 03/26/2018 dizziness 03/15/2018 Patient had bladder biopsy on Sunday by Dr Noonan. states she has been holding her coumadin since Sunday insomnia 02/26/2018 blood in urine 02/06/2018 ~generic 01/30/2018 Establishing Care Encounters Encounter Performer Location Codes Date ([id number]) OFFICE/OUTPATIENT VISIT EST Diagnosis: Urinary tract infection, site not specified[ICD10: N39.0] Diagnosis: Left lower quadrant pain[ICD10: R10.32] Bhavna DAILY [facility] CPT-4: 74324 01/30/2020 ([id number]) OFFICE/OUTPATIENT VISIT EST Diagnosis: Hypotension[ICD10: I95.9] Diagnosis: Chronic kidney disease[ICD10: N18.9] Jalyn DAILY [facility] CPT-4: 06289 11/24/2019 ([id number]) OFFICE/OUTPATIENT VISIT EST Diagnosis: Hypotension[ICD10: I95.9] Diagnosis: Dizziness and giddiness[ICD10: R42] Diagnosis: Polyuria[ICD10: R35.8] Jalyn Landeros [facility] CPT-4: 69528 11/19/2019 ([id number]) OFFICE/OUTPATIENT VISIT EST Diagnosis: Sigmoid diverticulitis[ICD10: K57.32] [facility]: 64786 08/26/2019 ([id number]) OFFICE/OUTPATIENT VISIT EST Diagnosis: Clostridium difficile colitis[ICD10: A04.72] [facility] CPT[facility]: 14069 05/07/2019 ([id number]) OFFICE/OUTPATIENT VISIT EST Diagnosis: Clostridium difficile colitis[ICD10: A04.72] Diagnosis: Edema[ICD10: R60.9] Jalyn DAILY [facility] CPT-4: 55017 04/23/2019 ([id number]) OFFICE/OUTPATIENT VISIT EST Diagnosis: Constipation[ICD10: K59.00] Diagnosis: Left lower quadrant pain[ICD10: R10.32] Bhavna Garydi [facility] CPT-4: 19053 03/27/2019 ([id number]) OFFICE/OUTPATIENT VISIT EST Diagnosis: Acute kidney failure, unspecified[ICD10: N17.9] [facility] CPT-4: 80455 03/18/2019 ([id number]) OFFICE/OUTPATIENT VISIT EST Diagnosis: Essential (primary) hypertension[ICD10: I10] Diagnosis: Chronic atrial fibrillation[ICD10: I48.2] Diagnosis: Mixed hyperlipidemia[ICD10: E78.2] Diagnosis: Other fatigue[ICD10: R53.83] Diagnosis: Abdominal distension (gaseous)[ICD10: R14.0] Jalyn DAILY [facility] CPT-4: 80045 02/12/2019 ([id number]) OFFICE/OUTPATIENT VISIT EST Diagnosis: Low back pain[ICD10: M54.5] Bhavna DOUGHERTY S. O RENDER [facility] CPT-4: 41929 12/25/2018 ([id number]) OFFICE/OUTPATIENT VISIT EST Diagnosis: Low back pain[ICD10: M54.5] Bhavna DOUGHERTY S. O RENDER [facility] CPT-4: 08773 12/12/2018 ([id number]) OFFICE/OUTPATIENT VISIT EST Diagnosis: Anemia, unspecified[ICD10: D64.9] Diagnosis: Chronic atrial fibrillation[ICD10: I48.2] Diagnosis: Other fatigue[ICD10: R53.83] Jalyn DAILY [facility] CPT-4: 76090 10/10/2018 ([id number]) OFFICE/OUTPATIENT VISIT EST Diagnosis: Acute on chronic combined systolic (congestive) and diastolic (congestive) heart failure[ICD10: I50.43] Diagnosis: Chronic atrial fibrillation[ICD10: I48.2] Jalyn DAILY [facility] CPT-4: 75991 08/27/2018 ([id number]) OFFICE/OUTPATIENT VISIT EST Diagnosis: Chronic atrial fibrillation[ICD10: I48.2] 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] Diagnosis: assisted (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[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] Jalyn DAILY [facility] CPT-4: 60725 08/13/2018 ([id number]) OFFICE/OUTPATIENT VISIT EST Diagnosis: Acute on chronic combined systolic (congestive) and diastolic (congestive) heart failure[ICD10: I50.43] Diagnosis: Essential (primary) hypertension[ICD10: I10] Diagnosis: Anemia, unspecified[ICD10: D64.9] Jalyn Gottliebnahidnéstor GIBBONSLIN Rogers DAILY [employer] [facility] CPT-4: 26161 07/10/2018 ([id number]) OFFICE/OUTPATIENT VISIT EST Diagnosis: Chronic atrial fibrillation[ICD10: I48.2] Diagnosis: Acute on chronic combined systolic (congestive) and diastolic (congestive) heart failure[ICD10: I50.43] Diagnosis: Localized edema[ICD10: R60.0] Jalyn DAILY [facility] CPT-4: 22136 05/06/2018 ([id number]) OFFICE/OUTPATIENT VISIT EST Diagnosis: Generalized abdominal pain[ICD10: R10.84] Diagnosis: Pelvic and perineal pain[ICD10: R10.2] Diagnosis: Localized edema[ICD10: R60.0] Bhavna DAILY [facility] CPT-4: 19142 04/17/2018 ([id number]) OFFICE/OUTPATIENT VISIT EST Diagnosis: Urinary tract infection, site not specified[ICD10: N39.0] Diagnosis: Other insomnia[ICD10: G47.09] Diagnosis: Other fatigue[ICD10: R53.83] Diagnosis: Other forms of dyspnea[ICD10: R06.09] Diagnosis: Chronic atrial fibrillation[ICD10: I48.2] Diagnosis: Restless legs syndrome[ICD10: G25.81] Jalyn DAILY [employer] [facility] CPT-4: 07808 03/26/2018 ([id number]) OFFICE/OUTPATIENT VISIT EST Diagnosis: Altered mental status, unspecified[ICD10: R41.82] Diagnosis: assisted (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[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] Diagnosis: Hematuria, unspecified[ICD10: R31.9] Bhavna DAILY [employer] [facility] CPT-4: 07904 03/15/2018 ([id number]) NURSE/OUTPATIENT VISIT EST Diagnosis: Urinary tract infection, site not specified[ICD10: N39.0] Jalyn DAILY [employer] [facility] CPT-4: 64057 02/06/2018 OFFICE/OUTPATIENT VISIT NEW Diagnosis: assisted (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[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] Diagnosis: Essential (primary) hypertension[ICD10: I10] Diagnosis: Mixed hyperlipidemia[ICD10: E78.2] Diagnosis: Other fatigue[ICD10: R53.83] Diagnosis: Cardiac arrhythmia, unspecified[ICD10: I49.9] Diagnosis: Generalized abdominal pain[ICD10: R10.84] Diagnosis: Urinary tract infection, site not specified[ICD10: N39.0] Diagnosis: Other insomnia[ICD10: G47.09] Bhavna Brarimaldi JALYN DAILY [facility] CPT-4: 75642 01/30/2018 Plan of Care Planned Activity Notes [...] ICD-10 : R10.32 01/30/2020 Appointment: Bhavna Escalante [address] ACUTE ILLNESS 01/30/2020 Patient Education: temazepam- [employer] Coupon [phone] https://www.Sistemic/samplemd/resources/getResource/61/[email or web address]-3s34-0b Completed 01/30/2020 Patient Education: temazepam- [employer] Coupon [phone] https://www.Sistemic/samplemd/resources/getResource/61/e182137p-8c16-920r-o8 Completed 01/30/2020 Visit Diagnosis Plan: Chronic kidney [...] I95.9 11/24/2019 Appointment: Jalyn Daily WPtel: [phone] [facility] ACUTE ILLNESS 11/24/2019 Visit Diagnosis Plan: Hypotension Discussion: BP today is okay ICD-9 : 458.9 ICD-10 : I95.9 11/19/2019 Visit Diagnosis Plan: Polyuria Discussion: UA normal ICD-9 : 788.42 ICD-10 : R35.8 11/19/2019 Visit Diagnosis Plan: Dizziness and giddiness Discussi on: Check lab--CBC, CMP, TSH, PT/INR now ICD-9 : 780.4 ICD-10 : R42 11/19/2019 Appointment: Jalyn Daily WPtel: [phone] [facility] ACUTE ILLNESS 11/19/2019 Patient Education: [place] [employer]Wayne Thomas [phone] https://www.WordRakecom/samplemd/resources/getResource/61/95p9y8i2-q74m-[email or web address] Completed 11/19/2019 Visit Diagnosis Plan: Encounter for [facility] adult medical examination with abnormal findings Discussion: [...] : I10 09/25/2019 App[facility]ment[phone] [facility] [facility] 09/25/2019 Care Plan: COMPREHEN METABOLIC PANEL [place] : 88629-2 Pending 09/22/2019 Care Plan: COMPLETE CBC W/AUTO DIFF WBC LOINC : 26710-1 Pending 09/22/2019 Appointment: Bhavna Escalante [address] [id number] US pt. feeling better and still had [...] K57.32 08/26/2019 Appointment: Jalyn Daily WPtel: [address] [place] [address] ACUTE ILLNESS 08/26/2019 Appointment: Jalyn Daily WPtel: [address] [place] [address] originally 4 mo follow up CANCELED 2018 Visit Diagnosis Plan: Clostridium difficile colitis Di scussion: Vancomycin daily for another week then 125mg every 3 days for 1 month then stop Fwup in September ICD-9 : 008.45 ICD-10 : A04.72 05/07/2019 Appointment: Jalyn Daily WPtel: [address] [place] [address] FOLLOW UP 05/07/2019 Visit Diagnosis Plan: Edema [...] A04.72 04/23/2019 Appointment: Jalyn Daily WPtel: [address] [place] [address] Hospital Follow Up 04/23/2019 Appointment: Bhavna Escalante [address] [place] [address] US CANCELED 04/15/2019 Visit Diagnosis Plan: Left lower quadrant pain Discuss ion: will start with abdominal xray to rule out acute obstruction/constipation. if no acute findings, will treat as diverticulitis due to patient's past history. ICD-9 : 789.04 ICD-10 : R10.32 03/27/2019 Appointment: Bhavna Escalante [address] [place] [address] ACUTE ILLNESS 03/27/2019 Visit Diagnosis Plan: Acute kidney failure, unspecifie d Discussion: Was given Meloxicam at urgent care--discussed no NSAIDs, hydrate, repeat Chem 7 in 1 week ICD-9 : 584.9 ICD-10 : N17.9 03/18/2019 Appointment: Jalyn Daily WPtel: [address] [place] [address] [place] ACUTE ILLNESS 03/18/2019 Visit Diagnosis Plan: Abdominal distension (gaseous) D iscussion: Trial of Zenpep q AC ICD-9 : 787.3 ICD-10 : R14.0 02/12/2019 Visit Diagnosis Plan: Essential (primary) hypertension Discussion: Stable ICD-9 : 401.9 ICD-10 : I10 02/12/2019 Visit Diagnosis Plan: Chronic atrial fibrillation Disc ussion: Following routinely with Cardiology ICD-9 : 427.31 ICD-10 : I48.2 02/12/2019 Appointment: Jalyn Daily WPtel: [address] [place] [address] FOLLOW UP 02/12/2019 Appointment: Bhavna Escalante [address] [place] [address] [place] Canceled per guillermina. sending for mri [...] ICD-10 : M54.5 12/25/2018 Appointment: Bhavna Escalante [address] [place] [address] ACUTE ILLNESS 12/25/2018 Visit Diagnosis Plan: Low [...] ICD-10 : M54.5 12/12/2018 Appointment: Bhavna Escalante [address] [place] [address] ACUTE ILLNESS 12/12/2018 Patient Education: cyclobenzaprine- [employer] Coupon [id number] https://www.Sistemic/sampleThe [facility] [place]/resources/getResource/61/ye4026u9-q490-5n9f-t1 Completed 12/12/2018 Appointment: Bhavna Escalante [address] [place] [address] CANCELED 12/06/2018 Visit Diagnosis Plan: Chronic atrial fibrillation Disc ussion: Cardiology monitoring PT/INR Follow Up: 4 months ICD-9 : 427.31 ICD-10 : I48.2 10/10/2018 Visit Diagnosis Plan: Anemia, unspecified Discussion: Update CBC ICD-9 : 285.9 ICD-10 : D64.9 10/10/2018 Visit Diagnosis Plan: Other fatigue Discussion: Increa se activity--discussed 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 ICD-9 : 780.79 ICD-10 : R53.83 10/10/2018 Appointment: Jalyn Daily WPtel: [address] [place] [address] US FOLLOW UP 10/10/2018 Visit Diagnosis Plan: [...] : I50.43 08/27/2018 Appointment: Jalyn Daily WPtel: [facility] [place] [phone] [place] FOLLOW UP 08/27/2018 Visit Diagnosis Plan: [...] ICD-10 : I48.2 08/13/2018 Visit Diagnosis Plan: 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 Discussion: Increase Coumadin to 5mg po daily and repeat PT/INR in 2 weeks ICD-9 : V58.61 ICD-10 : Z79.01 08/13/2018 Appointment: [facility] [phone] [facility] [facility] 08/13/2018 Patient Education: bumetanide- Opt[employer]RX Coupon [id number] https://www.Sistemic/I-Pulse/resources/getResource/61/1ir92z48-8fj2-8v30-lq Completed 08/13/2018 Patient Education: levothyroxine- Optimize[employer] Coupon [phone] [id number] https://www.Sistemic/samplemd/resources/getResource/61/4402012j-2435-8y94-ar Completed 08/13/2018 Patient Education: warfarin- [employer] Coupon [id number] https://www.Sistemic/samplemd/resources/getResource/61/99660229-dj34-95z0-9a Completed 08/13/2018 Patient Education: pantoprazole- OptimizeRX Coupon [phone] [id number] https://www.Sistemic/Ahonyamd/resources/getResource/61/f5595o20-57q1-70fl-9z Completed 08/13/2018 Patient Education: spironolactone- Opt[employer] Coupon [phone] [id number] https://www.Sistemic/I-Pulse/resources/getResource/61/8gs643t0-c972-3308-cc Completed 08/13/2018 Visit Diagnosis Plan: Anemia, unspecified [...] : I50.43 07/10/2018 Appointment: Jalyn Daily WPtel: [phone] [facility] [address] FOLLOW UP 07/10/2018 Visit Diagnosis Plan: Acute on chronic c ombined systolic (congestive) and diastolic (congestive) heart failure Discussion: Much improved on entresto an d lasix See cardilogy tomorrow in [facility] Discussed restarting cardiac rehab in 3 weeks Check Chem 7 Follow Up: 2 months ICD-9 : 428.43 ICD-10 : I50.43 05/06/2018 Visit Diagnosis Plan: Chronic atrial fibrillation Disc ussion: S/P new pacemaker/defibrillator ICD-9 : 427.31 ICD-10 : I48.2 05/06/2018 App[facility]ment: [facility] [phone] [facility] [facility] FOLLOW [facility] 05/06/2018 Visit Diagnosis [...] ICD-10 : R10.2 04/17/2018 [facility] [facility] 04/17/2018 Patient Education: Patient Medication Summary Completed 04/17/2018 Care Plan: CT ABDOMEN W/O & W/DYE LOINC : 56964-1 Pending 04/17/2018 Care Plan: CT PELVIS W/O & W/DYE LOINC : 35029-5 Pending 04/17/2018 Appointment: Jalyn Daily WPtel: [address] [place], [place] [phone] [place] CANCELED 04/10/2018 Visit Diagnosis Plan: Urinary [...] : G47.09 03/26/2018 Appointment: Jalyn Daily WPtel: [address] [place], [place] [phone] ER Follow UP 03/26/2018 Patient [...] ICD-10 : R41.82 03/15/2018 Appointment: Bhavna Escalante [address] [place] [address] ACUTE ILLNESS 03/15/2018 Patient Education: Patient Medication Summary Completed 03/15/2018 Visit Diagnosis Plan: Primary insomnia Discussion: Tri al of elavil 10mg po q HS ICD-9 : 780.52 ICD-10 : F51.01 02/26/2018 Visit Diagnosis Plan: Functional dyspepsia Discussion: Increase protonix to 40mg po BID Follow Up: 1 months ICD-9 : 536.8 ICD-10 : K30 02/26/2018 Appointment: Jalyn Daily WPtel: [address] [place] [address] WELCOME TO MEDICARE 02/26/2018 Patient Education: Patient Medication Summary Completed 02/26/2018 Referral: Song Noonan WPtel: [address] [place] [address] [place] Referral Initiated 02/19/2018 Appointment: Jalyn Daily WPtel: [address] [place] [address] US LAB 02/06/2018 Patient Education: Patient Medication Summary Completed 02/06/2018 Appointment: Jalyn Daily WPtel: [address] [place] [address] US CANCELED 02/01/2018 Care Plan: US EXAM ABDOM COMPLETE liver LOINC : 13387-7 Pending 01/31/2018 Visit Diagnosis Plan: Other fatigue [...] ICD-10 : I10 01/30/2018 Visit Diagnosis Plan: 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 informed her to take tylenol or remaining hydrocodone from surgery if pain develops. ICD-9 : V58.61 ICD-10 : Z79.01 01/30/2018 Appointment: Bhavna Escalante [address] [place], [place] [phone] [place] NEW PATIENT 01/30/2018 Patient Education: Patient Medication Summary Completed 01/30/2018 Instructions No Instructions Medical Equipment No Medical Equipment data Health Concerns Section Health Concerns data not found Goals Section Goals data not found Interventions Section Interventions data not found Health Status Evaluations/Outcomes Section Health Status Evaluations/Outcomes data not found Advance Directives No Advance Directive data
--- OUTSIDE RECORDS SUMMARY | 2020-02-10 14:01 | XMS REPORT | CCD ---
Author Author Riana Escalante Organization [facility] Address [address] [place] [address] Phone Unavailable Care Team Providers Care Batch Blender Name Role Phone PP Unavailable CCM Unavailable Summary Purpose Interface Exchange Insurance Providers Payer name Policy type / Coverage type Covered republican ID Effective Begin Date Effective End Date WPS MEDICARE PART B [place] Medicare Part B [id number] 2017 Unknown Cigna Medicare Part B [id number] 2017 Unknown Family History Family History data not found Social History Social History Element Codes Description Effective Dates Tobacco history SNOMED CT: 314658203 Never smoker 01/30/[address]: 190588543 Never drinks alcohol 2017 Allergies, Adverse Reactions, [...] hypertension ICD-9: 401.9 ICD-10: I10 01/30/2018 Active group home (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 ICD-9: V58.6 1 [...] Fill Instructions temazepam 15 mg capsule RxNorm: 619958 TAKE 1 TO 2 CAPS ULES BY MOUTH AT BEDTIME NEEDED FOR SLEEP 01/30/2020 01/30/2020 Inactive Augmentin 875 mg-125 mg tablet RxNorm: 215103 1 Tablet( s) Oral three times a day 01/30/2020 02/05/2020 Active temazepam 15 mg capsule RxNorm: 838378 TAKE 1 TO 2 CAPS ULES BY MOUTH AT BEDTIME NEEDED FOR SLEEP 01/30/2020 01/29/2020 Inactive Augmentin 875 mg-125 mg tablet RxNorm: 796101 1 Tablet( s) Oral three times a day 01/30/2020 01/29/2020 Inactive levothyroxine 25 mcg tablet RxNorm: 986159 1 Tablet(s) Oral QD 07/201904/06/2020 Active potassium chloride ER 10 mEq capsule,extended release RxNorm : 865638 TAKE ONE CAPSULE BY MOUTH TWICE A DAY OF AND TAKE ONE CAPSULE BY MOUTH DAILY ON -Sun12/23/2019 No Stop Date Active Colace 100 mg capsule RxNorm: 2714243 1 Capsule(s) Oral three ti mes a day 11/19/2019 12/19/2019 Inactive warfarin 5 mg tablet RxNorm: 315964 1 Tablet(s) Oral MW F and 1/2 tablet (2.5mg) , [facility], 09/30/2019 12/29/2019 Inactive levothyroxine 25 mcg tablet RxNorm: 524150 TAKE ONE TABLET BY M OUTH DAILY 09/30/2019 01/06/2020 Inactive potassium chloride ER 10 mEq capsule,extended release RxNorm : 698230 1 Capsule(s) Oral two times a day on and 1 capsule 09/26/2019 09/26/2019 Inactive vancomycin 125 mg capsule RxNorm: 700041 2 Capsule(s) Oral Q8H 08/0909/05/2019 Inactive warfarin 5 mg tablet RxNorm: 522323 1 Tablet(s) Oral MW F and 1/2 tablet (2.5mg) , [facility] [place] 08/26/2019 09/29/2019 Inactive Colace 100 mg capsule RxNorm: 2562748 1 Capsule(s) Oral QD 08/26/1911/18/2019 Inactive levothyroxine 25 mcg tablet RxNorm: 155004 1 Tablet(s) PO QD 201909/29/2019 Inactive spironolactone 25 mg tablet RxNorm: 433336 TAKE 1 TABLET BY DOUGLAS TWICE DAILY 06/22/2019 09/19/2019 Inactive losartan 25 mg tablet RxNorm: 820525 TAKE 1 TABLET BY M OUTH ONCE DAILY IN THE MORNING 05/26/2019 No Stop Date Active bumetanide 1 mg tablet RxNorm: 601761 TAKE 1 TABLET BY MOUTH TWICE DAILY AT 6AM AND 6PM 05/23/2019 No Stop Date Active vancomycin 125 mg capsule RxNorm: 099491 1 Capsule(s) Oral Q3D 04/1008/25/2019 Inactive pantoprazole 40 mg tablet,delayed release RxNorm: 859318 1-2 Ta blet(s) Oral QD 04/23/2019 05/23/2019 Inactive potassium chloride ER 10 mEq capsule,extended release RxNorm : 603768 1 Capsule(s) Oral QD 04/23/2019 09/25/2019 Inactive warfarin 5 mg tablet RxNorm: 210507 Tablet(s) Oral Take 1 tablet (5mg) by mouth on and Sun then 1/2 tablet (2.5mg) on Sun, Sun, Thurs, Sat and Sun 04/23/2019 08/25/2019 Inactive temazepam 15 mg capsule RxNorm: 865767 TAKE 1 TO 2 CAPS ULES BY MOUTH AT BEDTIME NEEDED FOR SLEEP 04/08/2019 09/25/2019 Inactive Cipro 250 mg tablet RxNorm: 993234 1 Tablet(s) Oral two times a day 03/27/2019 04/03/2019 Inactive metronidazole 500 mg tablet RxNorm: 898938 1 Tablet(s) Oral thr ee times a day 03/27/2019 04/03/2019 Inactive bumetanide 1 mg tablet RxNorm: 610431 1 Tablet(s) PO BID (6am a nd 6pm) 02/13/2019 05/13/2019 Inactive levothyroxine 25 mcg tablet RxNorm: 763909 1 Tablet(s) PO QD 201807/13/2019 Inactive warfarin 5 mg tablet RxNorm: 776310 1 TABLET(S) PO TU , SUN, THURS, SAT AND SUN AND 1/2 TABLET ON 02/04/2019 02/11/2019 Inactive Kendra ent requests 90 days supply warfarin 5 mg tablet RxNorm: 121018 1 TABLET(S) PO TUES , WED, THURS, SAT AND SUN AND 1/2 TABLET ON 02/03/2019 02/03/2019 Inactive Kendra ent requests 90 days supply levothyroxine 25 mcg tablet RxNorm: 521136 1 Tablet(s) PO QD 201802/03/2019 Inactive warfarin 5 mg tablet RxNorm: 819243 1 Tablet(s) PO Tu , Wed, Thurs, Sat and Sun and 1/2 tablet on 01/31/2019 02/02/2019 Inactive temazepam 15 mg capsule RxNorm: 091392 TAKE 1 TO 2 CAPS ULES BY MOUTH AT BEDTIME NEEDED FOR SLEEP 01/31/2019 04/07/2019 Inactive cyclobenzaprine 10 mg tablet RxNorm: 522014 1 Tablet(s) PO Q8H as needed 12/30/2018 09/25/2019 Inactive losartan 25 mg tablet RxNorm: 545182 1 Tablet(s) PO QAM 12/27/2018 Inactive Lidoderm 5 % topical patch RxNorm: 0626885 1 Application TOP Q12H and then off for 12 hours 12/25/2018 01/23/2019 Inactive Lidoderm 5 % topical patch RxNorm: 9601169 1 Application TOP Q12H and then off for 12 hours 12/25/2018 12/24/2018 Inactive cyclobenzaprine 5 mg tablet RxNorm: 196812 1 Tablet(s) PO Q8H a s needed 12/12/2018 12/24/2018 Inactive spironolactone 25 mg tablet RxNorm: 991218 1 Tablet(s) PO BID 09/2006/16/2019 Inactive change in directions to BID pantoprazole 40 mg tablet,delayed release RxNorm: 313464 1 Tabl et(s) PO QD 09/20/2018 04/22/2019 Inactive Patient requests 9 0 days supply spironolactone 25 mg tablet RxNorm: 075498 1 Tablet(s) PO BID 08/2609/19/2018 Inactive change in directions to BID pantoprazole 40 mg tablet,delayed release RxNorm: 807198 1 Tabl et(s) PO QD 08/15/2018 09/19/2018 Inactive Patient requests 9 0 days supply carvedilol 6.25 mg tablet RxNorm: 069124 1 Tablet(s) PO BID 019 02/08/2019 Inactive pantoprazole 40 mg tablet,delayed release RxNorm: 266427 1 Tablet(s) PO QD 1 TABLET(S) PO BID 08/13/2018 08/15/2018 Inactive Patient reque sts 90 days supply bumetanide 1 mg tablet RxNorm: 964816 1 Tablet(s) PO BID (6am a nd 6pm) 08/13/2018 02/08/2019 Inactive bumetanide 0.5 mg tablet RxNorm: 142220 1 Tablet(s) PO QPM three days a week--Sunday, Sun, Sunday instead of 1mg dose in evening 08/13/201812/2018 Inactive levothyroxine 25 mcg tablet RxNorm: 460094 1 Tablet(s) PO QD 201801/30/2019 Inactive spironolactone 25 mg tablet RxNorm: 837805 1 Tablet(s) PO QD 201808/25/2018 Inactive losartan 25 mg tablet RxNorm: 034341 1 Tablet(s) PO QAM 08/13/2018 Inactive warfarin 5 mg tablet RxNorm: 422029 1 Tablet(s) PO QD 08/13/201808/09 Inactive pantoprazole 40 mg tablet,delayed release RxNorm: 602072 1 TABL ET(S) PO BID 08/02/2018 08/12/2018 Inactive Patient requests 9 0 days supply temazepam 15 mg capsule RxNorm: 804635 1-2 Capsule(s) P O QHS as needed for sleep 2018 01/31/2019 Inactive Restoril 15 mg capsule RxNorm: 168609 1-2 Capsule(s) PO QHS as needed for sleep 06/04/2018 08/12/2018 Inactive potassium chloride ER 10 mEq capsule,extended release RxNorm : 229094 2 CAPSULE(S) PO QD 05/07/2018 08/04/2018 Inactive Patient reque sts 90 days supply temazepam 22.5 mg capsule RxNorm: 331062 1 Capsule(s) P O QHS as needed for sleep 05/06/2018 08/12/2018 Inactive potassium chloride ER 10 mEq capsule,extended release RxNorm : 863335 2 Capsule(s) PO QD 05/06/2018 05/06/2018 Inactive ropinirole 1 mg tablet RxNorm: 088917 1 TABLET(S) PO QHS FOR RE STLESS LEGS 03/27/2018 04/25/2018 Inactive Patient requests 9 0 days supply ropinirole 1 mg tablet RxNorm: 181516 1 Tablet(s) PO QHS for re stless legs 03/26/2018 03/26/2018 Inactive cefdinir 300 mg capsule RxNorm: 474942 1 Capsule(s) PO BID 03/26/20 18 03/30/2018 Inactive temazepam 15 mg capsule RxNorm: 398292 1 Capsule(s) PO QHS as neede d 03/20/2018 03/25/2018 Inactive Lunesta 3 mg tablet RxNorm: 464302 1 Tablet(s) PO QHS as needed for sleep 03/04/2018 03/19/2018 Inactive amitriptyline 10 mg tablet RxNorm: 810581 1 Tablet(s) PO QHS fo r sleep 02/26/2018 03/03/2018 Inactive escitalopram 20 mg tablet RxNorm: 109286 1 Tablet(s) PO QHS 018 08/12/2018 Inactive pantoprazole 40 mg tablet,delayed release RxNorm: 285653 1 Tabl et(s) PO BID 02/26/2018 04/26/2018 Inactive Coumadin 2.5 mg tablet RxNorm: 459736 1 Tablet(s) PO MWF 02/18/2018 0 07/22/2018 Inactive amiodarone 200 mg tablet RxNorm: 867974 1 Tablet(s) PO QD No Start Da te Active colestipol 1 gram tablet RxNorm: 4378681 1 Tablet(s) PO BID No Start Date Active pantoprazole 40 mg tablet,delayed release RxNorm: 357145 1 Tabl et(s) PO QD No Start Date Active pantoprazole 40 mg tablet,delayed release RxNorm: 242129 1 Tabl et(s) PO QD No Start Date 02/25/2018 Inactive bumetanide 1 mg tablet RxNorm: 733015 1 Tablet(s) PO BID (6am a nd 6pm) No Start Date 08/12/2018 Inactive potassium chloride ER 10 mEq tablet,extended release RxNorm: 049062 1 Tablet(s) PO QD No Start Date 02/11/2019 Inactive levothyroxine 25 mcg tablet RxNorm: 105406 1 Tablet(s) PO QD No Sta rt Date 08/12/2018 Inactive spironolactone 25 mg tablet RxNorm: 413172 1 Tablet(s) PO QD No Sta rt Date 08/12/2018 Inactive warfarin 5 mg tablet RxNorm: 846309 1 Tablet(s) PO MWF No Start Date 08/12/2018 Inactive warfarin 5 mg tablet RxNorm: 504343 1 Tablet(s) PO Tues , Wed, Thurs, Sat and Sun then 1/2 tablet (2.5mg) on Mon & Fri No Start Date 08/12/2018 Inactive losartan 25 mg tablet RxNorm: 706180 1 Tablet(s) PO QAM No Start Da te 08/12/2018 Inactive carvedilol 6.25 mg tablet RxNorm: 478208 1 Tablet(s) PO BID No Star t Date 08/12/2018 Inactive warfarin 2.5 mg tablet RxNorm: 999881 1 Tablet(s) PO , Thur s, Sat and Sun No Start Date 08/12/2018 Inactive Coumadin 2.5 mg tablet RxNorm: 089396 Tablet(s) Mon Sun and Sun PO No Start Date 02/17/2018 Inactive Children's Multivitamin with Iron tablet RxNorm: 1 Table t(s) PO QD No Start Date 04/22/2019 Inactive potassium chloride ER 20 mEq tablet,extended release(p art/cryst) RxNorm: 0979776 2 Tablet(s) PO QD No Start Date 05/05/2018 Inactive Coumadin 5 mg tablet RxNorm: 087865 Tablet(s) PO No Start Date 2017 Inactive mexiletine 200 mg capsule RxNorm: 8138574 1 Capsule(s) PO BID No St art Date 03/25/2018 Inactive ferrous sulfate 325 mg (65 mg iron) tablet RxNorm: 419956 1 Tab let(s) PO QD No Start Date 07/22/2018 Inactive cyclobenzaprine 10 mg tablet RxNorm: 096275 1 Tablet(s) PO Q8H as needed No Start Date 12/29/2018 Inactive potassium chloride ER 10 mEq capsule,extended release RxNorm : 477107 2 Capsule(s) PO QD No Start Date 12/11/2018 Inactive Coumadin 5 mg tablet RxNorm: 133833 1 Tablet(s) PO , Th, Sat and Sun No Start Date 07/22/2018 Inactive Restoril 15 mg capsule RxNorm: 419180 1-2 Capsule(s) PO QHS as needed for sleep No Start Date 05/05/2018 Inactive metoprolol succinate ER 25 mg tablet,extended release 24 hr RxNorm: 170688 1 Tablet(s) PO QD No Start Date 08/12/2018 Inactive Entresto 24 mg-26 mg tablet RxNorm: 8773459 1 Tablet(s) PO BID No S tart Date 08/12/2018 Inactive warfarin 5 mg tablet RxNorm: 091522 1 Tablet(s) PO , Sun, , Sat and Sun and 1/2 tablet on Mon/Fri No Start Date 01/30/2019 Inactive amiodarone 200 mg tablet RxNorm: 713232 2 Tablet(s) PO BID No Start Date 10/09/2018 Inactive furosemide 20 mg tablet RxNorm: 099626 1 Tablet(s) PO QD No Start D ate 08/12/2018 Inactive amiodarone 200 mg tablet RxNorm: 444668 1 Tablet(s) PO BID No Start Date 08/26/2018 Inactive atorvastatin 40 mg tablet RxNorm: 909727 1 Tablet(s) PO QD No Start Date 08/12/2018 Inactive warfarin 5 mg tablet RxNorm: 227544 1/2 Tablet(s) PO on Sun, Sun, Sun, Sun then 1 tablet on Sun, , Sun No Start Date 04/22/2019 Inactive Medication Administered No Medication Administered data Immunizations Vaccine Codes Date Status Hepatitis A CVX: 83 11/20/2019 Pneumovax CVX: 33 05/14/2019 Hepatitis A CVX: 83 03/25/2019 Influenza CVX: 135 03/25/2019 Results Observation Observation Code Item Item Code Result Date S ervice Location UA W/MICR 83913 UA Urine Appear Normal 02/06/2018 Unk nown UA W/MICR 70417 UA Protein 3+ 02/06/2018 Unknown UA W/MICR 62447 UA Hemoglobin Trace 02/06/2018 Unkno wn UA W/MICR 78154 UA Glucose Negative 02/06/2018 Unknown UA W/MICR 99224 UA Ketones Negative 02/06/2018 Unknown UA W/MICR 97462 UA pH 5.5 02/06/2018 Unknown UA W/MICR 91368 U Spec [place] 1.025 02/06/2018 Unkn own UA W/MICR 59177 UA Bilirubin Negative 02/06/2018 Unknow n UA W/MICR 82262 UA Leuk Esteras Trace 02/06/2018 Unk nown UA W/MICR 67566 UA Nitrite NEG 02/06/2018 Unknown UA W/MICR 69768 UA WBC/hpf 11-25 02/06/2018 Unknown UA W/MICR 59007 UA RBC hpf 0-5 02/06/2018 Unknown UA W/MICR 38488 UA Hyaline Cast 16-25 02/06/2018 Unk nown UA W/MICR 27275 UA Squam Epi Few 02/06/2018 Unknow n Procedures Procedure Codes Date URINALYSIS NONAUTO W/O SCOPE CPT-4: 85095 01/30/2020 URINE CULTURE/ COLONY COUNT CPT-4: 26996 01/30/2020 URINALYSIS NONAUTO W/O SCOPE CPT-4: 08020 11/19/2019 INITIAL PREVENTIVE EXAM CPT-4: G0402 09/25/2019 URINALYSIS NONAUTO W/O SCOPE CPT-4: 15484 03/18/2019 URINE CULTURE/ COLONY COUNT CPT-4: 32523 03/18/2019 URINALYSIS NONAUTO W/O SCOPE CPT-4: 38753 12/12/2018 URINE CULTURE/ COLONY COUNT CPT-4: 08807 03/26/2018 URINALYSIS NONAUTO W/O SCOPE CPT-4: 64259 03/15/2018 INITIAL PREVENTIVE EXAM CPT-4: G0402 02/26/2018 URINALYSIS NONAUTO W/O SCOPE CPT-4: 27884 02/06/2018 URINE CULTURE/ COLONY COUNT CPT-4: 69642 02/06/2018 UA W/MICR CPT-4: 18397 02/06/2018 CUR TOBACCO NON-USER CPT-4: G8457 01/30/2018 REPAIR BLADDER & VAGINA CPT-4: 51457 01/06/2017 REPAIR OF RECTOCELE CPT-4: 22423 01/06/2017 BREAST SURGERY PROCEDURE CPT-4: 17506 Unknown LAPARO CHOLECYSTECTOMY/EXPLR CPT-4: 40240 Unknown HYSTERECTOMY/REVISE VAGINA CPT-4: 62236 Unknown Vital Signs Date Vital 01/30/2020 Blood [...] 1: 106/58 Code: 8480-6 BMI: 26.3 Code: 73800-1 Heart Rate 1: 72 bpm Height: 4'10" Respiratory Rate: 20 bpm SpO2: 97% Tempera ture: 36.6 (C) / 97.8 (F) Weight: 128 lbs 07/10/2018 Blood Pressure 1: 122/70 Code: 8480-6 BMI: 28.6 Code: 83504-3 Heart Rate 1: 80 bpm Height: 4'10" Respiratory Rate: 20 bpm SpO2: 96% Tempera ture: 36.9 (C) / 98.4 (F) Weight: 139 lbs 05/06/2018 Blood Pressure 1: 112/54 Code: 8480-6 BMI: 27.5 Code: 62076-9 Heart Rate 1: 80 bpm Height: 4'10" [...] 1: 146/80 Code: 8480-6 BMI: 30.0 Code: 31205-7 Heart Rate 1: 76 bpm Height: 4'10" Respiratory Rate: 20 bpm SpO2: 97% Tempera ture: 36.7 (C) / 98.1 (F) Weight: 146 lbs 02/26/2018 Blood Pressure 1: 126/80 Code: 8480-6 BMI: 29.6 Code: 49697-8 Heart Rate 1: 80 bpm Height: 4'10" Respiratory Rate: 18 bpm SpO2: 96% Tempera ture: 37.0 (C) / 98.6 (F) Weight: 144 lbs 01/30/2018 Blood Pressure 1: 120/78 Code: 8480-6 BMI: 29.6 Code: 90614-4 Heart Rate 1: 84 bpm Height: 4'10" [...] 08/26/2019 follow up 05/07/2019 follow up 04/23/2019 [facility] abdominal pain 03/27/2019 left lower quadrant [...] up 07/10/2018 Hospital/ER fwup follow up 05/06/2018 [facility] abdominal pain 04/17/2018 follow up 03/26/2018 dizziness 03/15/2018 Patient had bladder biopsy on Sunday by Dr Noonan. states she has been holding her coumadin since Sunday insomnia 02/26/2018 blood in urine 02/06/2018 ~generic 01/30/2018 Establishing Care Encounters Encounter Performer Location Codes Date ([id number]) OFFICE/OUTPATIENT VISIT EST Diagnosis: Urinary tract infection, site not specified[ICD10: N39.0] Diagnosis: Left lower quadrant pain[ICD10: R10.32] Bhavna DAILY DO [facility] CPT-4: 40454 01/30/2020 ([id number]) OFFICE/OUTPATIENT VISIT EST Diagnosis: Hypotension[ICD10: I95.9] Diagnosis: Chronic kidney disease[ICD10: N18.9] Jalyn DAILY [facility] CPT-4: 03501 11/24/2019 ([id number]) OFFICE/OUTPATIENT VISIT EST Diagnosis: Hypotension[ICD10: I95.9] Diagnosis: Dizziness and giddiness[ICD10: R42] Diagnosis: Polyuria[ICD10: R35.8] Jalyn Landeros [facility] CPT-4: 59150 11/19/2019 ([id number]) OFFICE/OUTPATIENT VISIT EST Diagnosis: Sigmoid diverticulitis[ICD10: K57.32] [facility] CPT-[facility]: 96859 08/26/2019 ([id number]) OFFICE/OUTPATIENT VISIT EST Diagnosis: Clostridium difficile colitis[ICD10: A04.72] [facility] CPT-4: 76248 05/07/2019 ([id number]) OFFICE/OUTPATIENT VISIT EST Diagnosis: Clostridium difficile colitis[ICD10: A04.72] Diagnosis: Edema[ICD10: R60.9] Jalyn DAILY [facility] CPT-4: 54922 04/23/2019 ([id number]) OFFICE/OUTPATIENT VISIT EST Diagnosis: Constipation[ICD10: K59.00] Diagnosis: Left lower quadrant pain[ICD10: R10.32] Bhavna Garydi [facility] CPT-4: 01013 03/27/2019 ([id number]) OFFICE/OUTPATIENT VISIT EST Diagnosis: Acute kidney failure, unspecified[ICD10: N17.9] Jalyn [facility] CPT-4: 10752 03/18/2019 ([id number]) OFFICE/OUTPATIENT VISIT EST Diagnosis: Essential (primary) hypertension[ICD10: I10] Diagnosis: Chronic atrial fibrillation[ICD10: I48.2] Diagnosis: Mixed hyperlipidemia[ICD10: E78.2] Diagnosis: Other fatigue[ICD10: R53.83] Diagnosis: Abdominal distension (gaseous)[ICD10: R14.0] Jalyn DAILY DO [facility] CPT-4: 55459 02/12/2019 ([id number]) OFFICE/OUTPATIENT VISIT EST Diagnosis: Low back pain[ICD10: M54.5] Bhavna DOUGHERTY S. O RENDER DO [facility] CPT-4: 72651 12/25/2018 ([id number]) OFFICE/OUTPATIENT VISIT EST Diagnosis: Low back pain[ICD10: M54.5] Bhavna DOUGHERTY S. O RENDER DO [facility] CPT-4: 93155 12/12/2018 ([id number]) OFFICE/OUTPATIENT VISIT EST Diagnosis: Anemia, unspecified[ICD10: D64.9] Diagnosis: Chronic atrial fibrillation[ICD10: I48.2] Diagnosis: Other fatigue[ICD10: R53.83] Jalyn DAILY DO [facility] CPT-4: 67819 10/10/2018 ([id number]) OFFICE/OUTPATIENT VISIT EST Diagnosis: Acute on chronic combined systolic (congestive) and diastolic (congestive) heart failure[ICD10: I50.43] Diagnosis: Chronic atrial fibrillation[ICD10: I48.2] Jalyn DAILY DO 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 CPT-4: 54385 08/13/2018 ([id number]) OFFICE/OUTPATIENT VISIT EST Diagnosis: Acute on chronic combined systolic (congestive) and diastolic (congestive) heart failure[ICD10: I50.43] Diagnosis: Essential (primary) hypertension[ICD10: I10] Diagnosis: Anemia, unspecified[ICD10: D64.9] Jalyn Gottliebnahidnéstor GIBBONSLIN Rogers DAILY [employer] [facility] CPT-4: 74995 07/10/2018 ([id number]) OFFICE/OUTPATIENT VISIT EST Diagnosis: Chronic atrial fibrillation[ICD10: I48.2] Diagnosis: Acute on chronic combined systolic (congestive) and diastolic (congestive) heart failure[ICD10: I50.43] Diagnosis: Localized edema[ICD10: R60.0] Jalyn DAILY DO [facility] CPT-4: 27626 05/06/2018 ([id number]) OFFICE/OUTPATIENT VISIT EST Diagnosis: Generalized abdominal pain[ICD10: R10.84] Diagnosis: Pelvic and perineal pain[ICD10: R10.2] Diagnosis: Localized edema[ICD10: R60.0] Bhavna DAILY DO [facility] CPT-4: 73229 04/17/2018 ([id number]) OFFICE/OUTPATIENT VISIT EST Diagnosis: Urinary tract infection, site not specified[ICD10: N39.0] Diagnosis: Other insomnia[ICD10: G47.09] Diagnosis: Other fatigue[ICD10: R53.83] Diagnosis: Other forms of dyspnea[ICD10: R06.09] Diagnosis: Chronic atrial fibrillation[ICD10: I48.2] Diagnosis: Restless legs syndrome[ICD10: G25.81] Jalyn DAILY [employer] [facility] CPT-4: 95326 03/26/2018 ([id number]) OFFICE/OUTPATIENT VISIT EST Diagnosis: Altered mental status, unspecified[ICD10: R41.82] Diagnosis: group home (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[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] Diagnosis: Hematuria, unspecified[ICD10: R31.9] Bhavna DAILY [employer] [facility] CPT-4: 47971 03/15/2018 ([id number]) NURSE/OUTPATIENT VISIT EST Diagnosis: Urinary tract infection, site not specified[ICD10: N39.0] Jalyn DAILY [employer] [facility] CPT-4: 15924 02/06/2018 OFFICE/OUTPATIENT VISIT NEW Diagnosis: group home (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[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] Diagnosis: Essential (primary) hypertension[ICD10: I10] Diagnosis: Mixed hyperlipidemia[ICD10: E78.2] Diagnosis: Other fatigue[ICD10: R53.83] Diagnosis: Cardiac arrhythmia, unspecified[ICD10: I49.9] Diagnosis: Generalized abdominal pain[ICD10: R10.84] Diagnosis: Urinary tract infection, site not specified[ICD10: N39.0] Diagnosis: Other insomnia[ICD10: G47.09] Bhavna Escalante JALYN DAILY DO [facility] CPT-4: 96469 01/30/2018 Plan of Care Planned Activity Notes [...] R10.32 01/30/2020 Patient Education: temazepam- [employer] Coupon [id number] [email or web address]/[email or web address]/resources/getResource/61/[email or web address]-[email or web address] Completed 01/30/2020 Patient Education: temazepam- [employer] Coupon [id number] [email or web address].Koduco/SeeOn/resources/getResource/61/[email or web address]-[email or web address] Completed 01/30/2020 Visit Diagnosis Plan: Chronic kidney [...] I95.9 11/24/2019 Appointment: [facility]al[facility] [phone] [id number] [facility] 11/24/2019 Visit Diagnosis Plan: Dizziness and giddiness Discussi on: Check lab--CBC, CMP, TSH, PT/INR now ICD-9 : 780.4 ICD-10 : R42 11/19/2019 Visit Diagnosis Plan: Hypotension Discussion: BP today is okay ICD-9 : 458.9 ICD-10 : I95.9 11/19/2019 Visit Diagnosis Plan: Polyuria Discussion: UA normal ICD-9 : 788.42 ICD-10 : R35.8 11/19/2019 Appointment: Jalyn Daily WPtel: [address] [place], [place] [id number] ACUTE ILLNESS 11/19/2019 Patient Education: Colace- [employer] Coupon [id number] [email or web address]/[email or web address]/resources/getResource/61/[email or web address] Completed 11/19/2019 Visit Diagnosis Plan: Acute on [...] I10 09/25/2019 Visit Diagnosis Plan: Encounter for [facility] adult medical examination with abnormal findings Discussion: Mediterranean diet Combinati on of cardio and weight bearing exercise Obtain most recent lab COVID-19 precautions discussed Discussed telemedicine visits if needed during pandemic Follow Up: 3 months ICD-9 : V70.0 ICD-10 : Z00.01 09/25/2019 Appointment: Jalyn Daily WPtel: [id number] [place] Annual Well Visit 09/25/2019 Care Plan: COMPREHEN METABOLIC PANEL [place] : 99699-3 Pending 09/22/2019 Care Plan: COMPLETE CBC W/AUTO DIFF WBC LOINC : 52769-4 Pending 09/22/2019 Appointment: [facility] [address] [id number] pt. feeling better and still had [...] : K57.32 08/26/2019 Appointment: Jalyn Daily WPtel: [address] [place], [place] [id number] ACUTE ILLNESS 08/26/2019 Appointment: Jalyn Daily WPtel: [address] [place], [place] [id number] originally 4 mo follow up CANCELED 2018 Visit Diagnosis Plan: Clostridium difficile colitis Di scussion: Vancomycin daily for another week then 125mg every 3 days for 1 month then stop Fwup in September ICD-9 : 008.45 ICD-10 : A04.72 05/07/2019 Appointment: Jalyn Daily WPtel: [address] [place] [address] FOLLOW UP 05/07/2019 Visit Diagnosis Plan: Clostridium [...] : R60.9 04/23/2019 Appointment: Jalyn Daily WPtel: [address] [place], [place] [id number] Hospital Follow Up 04/23/2019 Appointment: Bhavna Escalante [address] [place] [address] [place] CANCELED 04/15/2019 Visit Diagnosis Plan: Left lower quadrant pain Discuss ion: will start with abdominal xray to rule out acute obstruction/constipation. if no acute findings, will treat as diverticulitis due to patient's past history. ICD-9 : 789.04 ICD-10 : R10.32 03/27/2019 Appointment: Bhavna Escalante [address] [place] [address] ACUTE ILLNESS 03/27/2019 Visit Diagnosis Plan: Acute kidney failure, unspecifie d Discussion: Was given Meloxicam at urgent care--discussed no NSAIDs, hydrate, repeat Chem 7 in 1 week ICD-9 : 584.9 ICD-10 : N17.9 03/18/2019 Appointment: Jalyn Daily WPtel: [address] [place] [address] ACUTE ILLNESS 03/18/2019 Visit Diagnosis Plan: Chronic atrial fibrillation Disc ussion: Following routinely with Cardiology ICD-9 : 427.31 ICD-10 : I48.2 02/12/2019 Visit Diagnosis Plan: Abdominal distension (gaseous) D iscussion: Trial of Zenpep q AC ICD-9 : 787.3 ICD-10 : R14.0 02/12/2019 Visit Diagnosis Plan: Essential (primary) hypertension Discussion: Stable ICD-9 : 401.9 ICD-10 : I10 02/12/2019 Appointment: Jalyn Daily WPtel: [address] [place] [address] [place] FOLLOW UP 02/12/2019 Appointment: Bhavna Escalante [address] [place] [address] [place] Canceled per guillermina. sending for mri [...] ICD-10 : M54.5 12/25/2018 Appointment: Bhavna Escalante [address] [place] [address] ACUTE ILLNESS 12/25/2018 Visit Diagnosis Plan: Low [...] ICD-10 : M54.5 12/12/2018 Appointment: Bhavna Escalante [address] [place] [address] ACUTE ILLNESS 12/12/2018 Patient Education: cyclobenzaprine- [employer] Coupon [id number] https://www.[employer]/SeeOn/resources/getResource/61/rk5287s6-k136-0v1s-j2 Completed 12/12/2018 Appointment: Bhavna Escalante [address] [place] [address] US CANCELED 12/06/2018 Visit Diagnosis Plan: Other fatigue Discussion: Increa se activity--discussed 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 ICD-9 : 780.79 ICD-10 : R53.83 10/10/2018 Visit Diagnosis Plan: Anemia, unspecified Discussion: Update CBC ICD-9 : 285.9 ICD-10 : D64.9 10/10/2018 Visit Diagnosis Plan: Chronic atrial fibrillation Disc ussion: Cardiology monitoring PT/INR Follow Up: 4 months ICD-9 : 427.31 ICD-10 : I48.2 10/10/2018 Appointment: Jalyn Daily WPtel: [address] [place] [address] [place] FOLLOW UP 10/10/2018 Visit Diagnosis Plan: Acute [...] : I48.2 08/27/2018 Appointment: Jalyn Daily WPtel: [facility] [address] [place] FOLLOW UP 08/27/2018 Visit Diagnosis Plan: [...] ICD-10 : I48.2 08/13/2018 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 Discussion: Increase Coumadin to 5mg po daily and repeat PT/INR in 2 weeks ICD-9 : V58.61 ICD-10 : Z79.01 08/13/2018 App[facility]ment: [facility]el[facility] [phone] [id number] FO[facility] 08/13/2018 Patient Education: bumetanide- [employer] Coupon [id number] https://www.[employer]/SeeOn/resources/getResource/61/8gg67m66-0ed6-9e14-zy Completed 08/13/2018 Patient Education: levothyroxine- [employer] Coupon [id number] https://www.[employer]/SeeOn/resources/getResource/61/3456552l-5781-7q21-pg Completed 08/13/2018 Patient Education: warfarin- [employer] Coupon [id number] https://www.[employer]/SeeOn/resources/getResource/61/57094179-wy36-00v1-1l Completed 08/13/2018 Patient Education: pantoprazole- [employer] Coupon [phone] https://www.[employer]/SeeOn/resources/getResource/61/z5679l76-56v5-55hs-2m Completed 08/13/2018 Patient Education: spironolactone- [employer] Coupon [phone] https://www.[employer]/SeeOn/resources/getResource/61/8fs776i8-q841-9974-tw Completed 08/13/2018 Visit Diagnosis Plan: Anemia, unspecified [...] : I50.43 07/10/2018 Appointment: Jalyn Daily WPtel: [address] [place] [address] 2nd FOLLOW UP 07/10/2018 Visit Diagnosis Plan: [...] : I48.2 05/06/2018 Appointment: Jalyn Daily WPtel: [address] [place] [address] [place] FOLLOW UP 05/06/2018 Visit Diagnosis Plan: [...] ICD-10 : R60.0 04/17/2018 Appointment: Bhavna Escalante [address] [place] [address] ACUTE ILLNESS 04/17/2018 Patient Education: Patient Medication Summary Completed 04/17/2018 Care Plan: CT ABDOMEN W/O & W/DYE LOINC : 00204-7 Pending 04/17/2018 Care Plan: CT PELVIS W/O & W/DYE LOINC : 68326-0 Pending 04/17/2018 App[facility]ment: [facility]el[facility] [phone] [id number] [place] CANCELED 04/10/2018 Visit Diagnosis Plan: Other [...] : R53.83 03/26/2018 Appointment: [facility]Ptel[facility] [phone] [id number] [facility] Follow UP 03/26/2018 Patient Education: [...] ICD-10 : R31.9 03/15/2018 Appointment: Bhavna Escalante [address] [place] [address] ACUTE ILLNESS 03/15/2018 Patient Education: Patient Medication Summary Completed 03/15/2018 Visit Diagnosis Plan: Primary insomnia Discussion: Tri al of elavil 10mg po q HS ICD-9 : 780.52 ICD-10 : F51.01 02/26/2018 Visit Diagnosis Plan: Functional dyspepsia Discussion: Increase protonix to 40mg po BID Follow Up: 1 months ICD-9 : 536.8 ICD-10 : K30 02/26/2018 Appointment: Jalyn Daily WPtel: [address] [place] [address] WELCOME TO MEDICARE 02/26/2018 Patient Education: Patient Medication Summary Completed 02/26/2018 Referral: Song Noonan WPtel: [address] [place] [address] [place] Referral Initiated 02/19/2018 Appointment: Jalyn Daily WPtel: [address] [place] [address] [place] LAB 02/06/2018 Patient Education: Patient Medication Summary Completed 02/06/2018 Appointment: Jalyn Daily WPtel: [address] [place], [place] [phone] [place] CANCELED 02/01/2018 Care Plan: US EXAM ABDOM COMPLETE liver LOINC : 95104-3 Pending 01/31/2018 Visit Diagnosis Plan: Essential (primary) [...] ICD-10 : R53.83 01/30/2018 Visit Diagnosis Plan: 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
--- OUTSIDE RECORDS SUMMARY | 2020-02-10 14:01 | XMS REPORT | CCD ---
Author Author Riana Escalante Organization JALYN SRuben DAILY DO [facility] Address [address] [place] [address] Phone Unavailable Care Team Providers Care Patient Safety Manager Name Role Phone PP Unavailable CCM Unavailable Summary Purpose Interface Exchange Insurance Providers Payer name Policy type / Coverage type Covered democrat ID Effective Begin Date Effective End Date WPS MEDICARE PART B [place] Medicare Part B [id number] 2017 Unknown Cigna Medicare Part B [id number] 2017 Unknown Family History Family History data not found Social History Social History Element Codes Description Effective Dates Tobacco history SNOMED CT: 519924413 Never smoker 01/30/[address]: 259642774 Never drinks alcohol 2017 Allergies, Adverse Reactions, Alerts Substance Reaction Codes Entered Date Inactivated Date Status * NO KNOWN ENVIRONMENTAL ALLERGIES Unknown 01/30/2018 N o Inactive Date Active * NO KNOWN FOOD ALLERGIES Unknown 01/30/2018 No Inactiv e Date Active * NO KNOWN DRUG ALLERGIES Unknown 01/30/2018 No Inactiv e Date Active Problems Condition Codes Effective Dates Condition Status Chronic kidney disease ICD-9: 585.9 ICD-10: N18.9 [...] hypertension ICD-9: 401.9 ICD-10: I10 01/30/2018 Active MCC (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 ICD-9: V58.6 1 [...] Constipation ICD-9: 564.00 ICD-10: K59.00 03/27/2019 Active Left lower quadrant pain ICD-9: 789.04 ICD-10: R10.32 03/27/2019 Active Acute kidney failure, unspecified ICD-9: [...] syndrome ICD-9: 333.94 ICD-10: G25.81 03/26/2018 Active Urinary tract infection, site not specified ICD-9: 599 .0 ICD-10: N39.0 01/30/2018 Active Altered mental status, unspecified ICD-9: 780.97 ICD-10: R41.82 03/15/2018 Active Hematuria, unspecified ICD-9: 599.70 ICD-10: R31.9 03/15/2018 Active Functional dyspepsia ICD-9: 536.8 ICD-10: K30 02/26/2018 Active Primary insomnia ICD-9: 780.52 ICD-10: F51.01 02/26/2018 Active Hypertension Unknown 01/30/2018 Active Medications Medication Codes Instructions Start Date Stop Date Status Fill Instructions levothyroxine 25 mcg tablet RxNorm: 072171 1 Tablet(s) Oral QD 07/201904/06/2020 Active potassium chloride ER 10 mEq capsule,extended release RxNorm : 079772 TAKE ONE CAPSULE BY MOUTH TWICE A DAY OF AND TAKE ONE CAPSULE BY MOUTH DAILY ON [facility] 12/23/2019 No Stop Date Active Colace 100 mg capsule RxNorm: 8517496 1 Capsule(s) Oral three ti mes a day 11/19/2019 12/19/2019 Inactive warfarin 5 mg tablet RxNorm: 120180 1 Tablet(s) Oral and 1/2 tablet (2.5mg) Sun Sun09/30/2019 12/29/2019 Inactive levothyroxine 25 mcg tablet RxNorm: 511286 TAKE ONE TABLET BY M OUTH DAILY 09/30/2019 01/06/2020 Inactive potassium chloride ER 10 mEq capsule,extended release RxNorm : 299154 1 Capsule(s) Oral two times a day on and 1 capsule Sun09/26/2019 09/26/2019 Inactive vancomycin 125 mg capsule RxNorm: 467779 2 Capsule(s) Oral Q8H 08/0909/05/2019 Inactive warfarin 5 mg tablet RxNorm: 329538 1 Tablet(s) Oral MW F and 1/2 tablet (2.5mg) , , Sat & Sun 08/26/2019 09/29/2019 Inactive Colace 100 mg capsule RxNorm: 3524568 1 Capsule(s) Oral QD 08/26/19 20 11/18/2019 Inactive levothyroxine 25 mcg tablet RxNorm: 768391 1 Tablet(s) PO QD 201909/29/2019 Inactive spironolactone 25 mg tablet RxNorm: 475869 TAKE 1 TABLET BY DOUGLAS TH TWICE DAILY 06/22/2019 09/19/2019 Inactive losartan 25 mg tablet RxNorm: 606042 TAKE 1 TABLET BY M OUTH ONCE DAILY IN THE MORNING 05/26/2019 No Stop Date Active bumetanide 1 mg tablet RxNorm: 623071 TAKE 1 TABLET BY MOUTH TWICE DAILY AT 6AM AND 6PM 05/23/2019 No Stop Date Active vancomycin 125 mg capsule RxNorm: 027746 1 Capsule(s) Oral Q3D 04/1008/25/2019 Inactive pantoprazole 40 mg tablet,delayed release RxNorm: 364992 1-2 Ta blet(s) Oral QD 04/23/2019 05/23/2019 Inactive potassium chloride ER 10 mEq capsule,extended release RxNorm : 307412 1 Capsule(s) Oral QD 04/23/2019 09/25/2019 Inactive warfarin 5 mg tablet RxNorm: 751488 Tablet(s) Oral Take 1 tablet (5mg) by mouth on and Sun then 1/2 tablet (2.5mg) on Sun, Sun, , Sat and Sun 04/23/2019 08/25/2019 Inactive temazepam 15 mg capsule RxNorm: 799742 TAKE 1 TO 2 CAPS ULES BY MOUTH AT BEDTIME NEEDED FOR SLEEP 04/08/2019 09/25/2019 Inactive Cipro 250 mg tablet RxNorm: 516264 1 Tablet(s) Oral two times a day 03/27/2019 04/03/2019 Inactive metronidazole 500 mg tablet RxNorm: 749393 1 Tablet(s) Oral thr ee times a day 03/27/2019 04/03/2019 Inactive bumetanide 1 mg tablet RxNorm: 733032 1 Tablet(s) PO BID (6am a nd 6pm) 02/13/2019 05/13/2019 Inactive levothyroxine 25 mcg tablet RxNorm: 772859 1 Tablet(s) PO QD 201807/13/2019 Inactive warfarin 5 mg tablet RxNorm: 480080 1 TABLET(S) PO TUES , WED, THURS, SAT AND SUN AND 1/2 TABLET ON 02/04/2019 02/11/2019 Inactive Kendra ent requests 90 days supply warfarin 5 mg tablet RxNorm: 850496 1 TABLET(S) PO TUES , WED, THURS, SAT AND SUN AND 1/2 TABLET ON 02/03/2019 02/03/2019 Inactive Kendra ent requests 90 days supply levothyroxine 25 mcg tablet RxNorm: 103144 1 Tablet(s) PO QD 201802/03/2019 Inactive warfarin 5 mg tablet RxNorm: 608155 1 Tablet(s) PO Tues , Wed, Thurs, Sat and Sun and 1/2 tablet on 01/31/2019 02/02/2019 Inactive temazepam 15 mg capsule RxNorm: 387747 TAKE 1 TO 2 CAPS ULES BY MOUTH AT BEDTIME NEEDED FOR SLEEP 01/31/2019 04/07/2019 Inactive cyclobenzaprine 10 mg tablet RxNorm: 146844 1 Tablet(s) PO Q8H as needed 12/30/2018 09/25/2019 Inactive losartan 25 mg tablet RxNorm: 737648 1 Tablet(s) PO QAM 12/27/2018 Inactive Lidoderm 5 % topical patch RxNorm: 3494227 1 Application TOP Q12H and then off for 12 hours 12/25/2018 01/23/2019 Inactive Lidoderm 5 % topical patch RxNorm: 2199683 1 Application TOP Q12H and then off for 12 hours 12/25/2018 12/24/2018 Inactive cyclobenzaprine 5 mg tablet RxNorm: 781916 1 Tablet(s) PO Q8H a s needed 12/12/2018 12/24/2018 Inactive spironolactone 25 mg tablet RxNorm: 993013 1 Tablet(s) PO BID 09/2006/16/2019 Inactive change in directions to BID pantoprazole 40 mg tablet,delayed release RxNorm: 759719 1 Tabl et(s) PO QD 09/20/2018 04/22/2019 Inactive Patient requests 9 0 days supply spironolactone 25 mg tablet RxNorm: 340383 1 Tablet(s) PO BID 08/2609/19/2018 Inactive change in directions to BID pantoprazole 40 mg tablet,delayed release RxNorm: 991387 1 Tabl et(s) PO QD 08/15/2018 09/19/2018 Inactive Patient requests 9 0 days supply carvedilol 6.25 mg tablet RxNorm: 504209 1 Tablet(s) PO BID 019 02/08/2019 Inactive pantoprazole 40 mg tablet,delayed release RxNorm: 558955 1 Tablet(s) PO QD 1 TABLET(S) PO BID 08/13/2018 08/15/2018 Inactive Patient reque sts 90 days supply bumetanide 1 mg tablet RxNorm: 351645 1 Tablet(s) PO BID (6am a nd 6pm) 08/13/2018 02/08/2019 Inactive bumetanide 0.5 mg tablet RxNorm: 219462 1 Tablet(s) PO QPM three days a week--Sunday, Sun, Sunday instead of 1mg dose in evening 08/13/201812/2018 Inactive levothyroxine 25 mcg tablet RxNorm: 836282 1 Tablet(s) PO QD 201801/30/2019 Inactive spironolactone 25 mg tablet RxNorm: 405467 1 Tablet(s) PO QD 201808/25/2018 Inactive losartan 25 mg tablet RxNorm: 652527 1 Tablet(s) PO QAM 08/13/2018 Inactive warfarin 5 mg tablet RxNorm: 119672 1 Tablet(s) PO QD 08/13/201808/09 Inactive pantoprazole 40 mg tablet,delayed release RxNorm: 880262 1 TABL ET(S) PO BID 08/02/2018 08/12/2018 Inactive Patient requests 9 0 days supply temazepam 15 mg capsule RxNorm: 559409 1-2 Capsule(s) P O QHS as needed for sleep 2018 01/31/2019 Inactive Restoril 15 mg capsule RxNorm: 700636 1-2 Capsule(s) PO QHS as needed for sleep 06/04/2018 08/12/2018 Inactive potassium chloride ER 10 mEq capsule,extended release RxNorm : 223598 2 CAPSULE(S) PO QD 05/07/2018 08/04/2018 Inactive Patient reque sts 90 days supply temazepam 22.5 mg capsule RxNorm: 337777 1 Capsule(s) P O QHS as needed for sleep 05/06/2018 08/12/2018 Inactive potassium chloride ER 10 mEq capsule,extended release RxNorm : 448963 2 Capsule(s) PO QD 05/06/2018 05/06/2018 Inactive ropinirole 1 mg tablet RxNorm: 777575 1 TABLET(S) PO QHS FOR RE STLESS LEGS 03/27/2018 04/25/2018 Inactive Patient requests 9 0 days supply ropinirole 1 mg tablet RxNorm: 778227 1 Tablet(s) PO QHS for re stless legs 03/26/2018 03/26/2018 Inactive cefdinir 300 mg capsule RxNorm: 567640 1 Capsule(s) PO BID 03/26/20 18 03/30/2018 Inactive temazepam 15 mg capsule RxNorm: 572934 1 Capsule(s) PO QHS as neede d 03/20/2018 03/25/2018 Inactive Lunesta 3 mg tablet RxNorm: 701244 1 Tablet(s) PO QHS as needed for sleep 03/04/2018 03/19/2018 Inactive amitriptyline 10 mg tablet RxNorm: 862619 1 Tablet(s) PO QHS fo r sleep 02/26/2018 03/03/2018 Inactive escitalopram 20 mg tablet RxNorm: 119206 1 Tablet(s) PO QHS 018 08/12/2018 Inactive pantoprazole 40 mg tablet,delayed release RxNorm: 465116 1 Tabl et(s) PO BID 02/26/2018 04/26/2018 Inactive Coumadin 2.5 mg tablet RxNorm: 018587 1 Tablet(s) PO MWF 02/18/2018 0 07/22/2018 Inactive amiodarone 200 mg tablet RxNorm: 869685 1 Tablet(s) PO QD No Start Da te Active colestipol 1 gram tablet RxNorm: 3427452 1 Tablet(s) PO BID No Start Date Active pantoprazole 40 mg tablet,delayed release RxNorm: 225784 1 Tabl et(s) PO QD No Start Date Active pantoprazole 40 mg tablet,delayed release RxNorm: 208458 1 Tabl et(s) PO QD No Start Date 02/25/2018 Inactive bumetanide 1 mg tablet RxNorm: 157441 1 Tablet(s) PO BID (6am a nd 6pm) No Start Date 08/12/2018 Inactive potassium chloride ER 10 mEq tablet,extended release RxNorm: 256461 1 Tablet(s) PO QD No Start Date 02/11/2019 Inactive levothyroxine 25 mcg tablet RxNorm: 591167 1 Tablet(s) PO QD No Sta rt Date 08/12/2018 Inactive spironolactone 25 mg tablet RxNorm: 050117 1 Tablet(s) PO QD No Sta rt Date 08/12/2018 Inactive warfarin 5 mg tablet RxNorm: 518391 1 Tablet(s) PO MWF No Start Date 08/12/2018 Inactive warfarin 5 mg tablet RxNorm: 076733 1 Tablet(s) PO Tu , Wed, Th, Sat and Sun then 1/2 tablet (2.5mg) on Mon & Fri No Start Date 08/12/2018 Inactive losartan 25 mg tablet RxNorm: 669117 1 Tablet(s) PO QAM No Start Da te 08/12/2018 Inactive carvedilol 6.25 mg tablet RxNorm: 502633 1 Tablet(s) PO BID No Star t Date 08/12/2018 Inactive warfarin 2.5 mg tablet RxNorm: 811470 1 Tablet(s) PO Tues, Thur s, Sat and Sun No Start Date 08/12/2018 Inactive Coumadin 2.5 mg tablet RxNorm: 135266 Tablet(s) Mon Sun and Fri PO No Start Date 02/17/2018 Inactive Children's Multivitamin with Iron tablet RxNorm: 1 Table t(s) PO QD No Start Date 04/22/2019 Inactive potassium chloride ER 20 mEq tablet,extended release(p art/cryst) RxNorm: 3306050 2 Tablet(s) PO QD No Start Date 05/05/2018 Inactive Coumadin 5 mg tablet RxNorm: 649512 Tablet(s) PO No Start Date 2017 Inactive mexiletine 200 mg capsule RxNorm: 8071543 1 Capsule(s) PO BID No St art Date 03/25/2018 Inactive ferrous sulfate 325 mg (65 mg iron) tablet RxNorm: 097079 1 Tab let(s) PO QD No Start Date 07/22/2018 Inactive cyclobenzaprine 10 mg tablet RxNorm: 630391 1 Tablet(s) PO Q8H as needed No Start Date 12/29/2018 Inactive potassium chloride ER 10 mEq capsule,extended release RxNorm : 951398 2 Capsule(s) PO QD No Start Date 12/11/2018 Inactive Coumadin 5 mg tablet RxNorm: 461636 1 Tablet(s) PO , , Sat and Sun No Start Date 07/22/2018 Inactive Restoril 15 mg capsule RxNorm: 239142 1-2 Capsule(s) PO QHS as needed for sleep No Start Date 05/05/2018 Inactive metoprolol succinate ER 25 mg tablet,extended release 24 hr RxNorm: 772382 1 Tablet(s) PO QD No Start Date 08/12/2018 Inactive Entresto 24 mg-26 mg tablet RxNorm: 2163081 1 Tablet(s) PO BID No S tart Date 08/12/2018 Inactive warfarin 5 mg tablet RxNorm: 974568 1 Tablet(s) PO , Sun, , Sat and Sun and 1/2 tablet on Sun/Sun No Start Date 01/30/2019 Inactive amiodarone 200 mg tablet RxNorm: 318331 2 Tablet(s) PO BID No Start Date 10/09/2018 Inactive furosemide 20 mg tablet RxNorm: 406577 1 Tablet(s) PO QD No Start D ate 08/12/2018 Inactive amiodarone 200 mg tablet RxNorm: 919623 1 Tablet(s) PO BID No Start Date 08/26/2018 Inactive atorvastatin 40 mg tablet RxNorm: 879422 1 Tablet(s) PO QD No Start Date 08/12/2018 Inactive warfarin 5 mg tablet RxNorm: 922253 1/2 Tablet(s) PO on Mon, Sun, Fri, Sun then 1 tablet on Nessa Mayer, Sat No Start Date 04/22/2019 Inactive Medication Administered No Medication Administered data Immunizations Vaccine Codes Date Status Hepatitis A CVX: 83 11/20/2019 Pneumovax CVX: 33 05/14/2019 Hepatitis A CVX: 83 03/25/2019 Influenza CVX: 135 03/25/2019 Results Observation Observation Code Item Item Code Result Date S ervice Location UA W/MICR 45582 UA Urine Appear Normal 02/06/2018 Unk nown UA W/MICR 40783 UA Protein 3+ 02/06/2018 Unknown UA W/MICR 08218 UA Hemoglobin Trace 02/06/2018 Unkno wn UA W/MICR 47214 UA Glucose Negative 02/06/2018 Unknown UA W/MICR 48352 UA Ketones Negative 02/06/2018 Unknown UA W/MICR 34025 UA pH 5.5 02/06/2018 Unknown UA W/MICR 90251 U Spec [place] 1.025 02/06/2018 Unkn own UA W/MICR 27908 UA Bilirubin Negative 02/06/2018 Unknow n UA W/MICR 83912 UA Leuk Esteras Trace 02/06/2018 Unk nown UA W/MICR 86279 UA Nitrite NEG 02/06/2018 Unknown UA W/MICR 68334 UA WBC/hpf 11-25 02/06/2018 Unknown UA W/MICR 02360 UA RBC hpf 0-5 02/06/2018 Unknown UA W/MICR 40110 UA Hyaline Cast 16-25 02/06/2018 Unk nown UA W/MICR 65202 UA Squam Epi Few 02/06/2018 Unknow n Procedures Procedure Codes Date URINALYSIS NONAUTO W/O SCOPE CPT-4: 08011 11/19/2019 INITIAL PREVENTIVE EXAM CPT-4: G0402 09/25/2019 URINALYSIS NONAUTO W/O SCOPE CPT-4: 50779 03/18/2019 URINE CULTURE/ COLONY COUNT CPT-4: 11455 03/18/2019 URINALYSIS NONAUTO W/O SCOPE CPT-4: 49991 12/12/2018 URINE CULTURE/ COLONY COUNT CPT-4: 65627 03/26/2018 URINALYSIS NONAUTO W/O SCOPE CPT-4: 08645 03/15/2018 INITIAL PREVENTIVE EXAM CPT-4: G0402 02/26/2018 URINALYSIS NONAUTO W/O SCOPE CPT-4: 66491 02/06/2018 URINE CULTURE/ COLONY COUNT CPT-4: 48830 02/06/2018 UA W/MICR CPT-4: 84047 02/06/2018 CUR TOBACCO NON-USER CPT-4: G8457 01/30/2018 REPAIR BLADDER & VAGINA CPT-4: 16287 01/06/2017 REPAIR OF RECTOCELE CPT-4: 08854 01/06/2017 BREAST SURGERY PROCEDURE CPT-4: 49827 Unknown LAPARO CHOLECYSTECTOMY/EXPLR CPT-4: 96238 Unknown HYSTERECTOMY/REVISE VAGINA CPT-4: 92745 Unknown Vital Signs Date Vital 11/24/2019 Blood Pressure 1: 112/64 Code: 8480-6 [...] 1: 106/58 Code: 8480-6 BMI: 26.3 Code: 32481-1 Heart Rate 1: 72 bpm Height: 4'10" Respiratory Rate: 20 bpm SpO2: 97% Tempera ture: 36.6 (C) / 97.8 (F) Weight: 128 lbs 07/10/2018 Blood Pressure 1: 122/70 Code: 8480-6 BMI: 28.6 Code: 53782-4 Heart Rate 1: 80 bpm Height: 4'10" Respiratory Rate: 20 bpm SpO2: 96% Tempera ture: 36.9 (C) / 98.4 (F) Weight: 139 lbs 05/06/2018 Blood Pressure 1: 112/54 Code: 8480-6 BMI: 27.5 Code: 32166-7 Heart Rate 1: 80 bpm Height: 4'10" [...] 1: 146/80 Code: 8480-6 BMI: 30.0 Code: 24445-1 Heart Rate 1: 76 bpm Height: 4'10" Respiratory Rate: 20 bpm SpO2: 97% Tempera ture: 36.7 (C) / 98.1 (F) Weight: 146 lbs 02/26/2018 Blood Pressure 1: 126/80 Code: 8480-6 BMI: 29.6 Code: 18502-9 Heart Rate 1: 80 bpm Height: 4'10" Respiratory Rate: 18 bpm SpO2: 96% Tempera ture: 37.0 (C) / 98.6 (F) Weight: 144 lbs 01/30/2018 Blood Pressure 1: 120/78 Code: 8480-6 BMI: 29.6 Code: 97681-8 Heart Rate 1: 84 bpm Height: 4'10" Respiratory Rate: 20 bpm SpO2: 97% Tempera ture: 36.0 (C) / 96.8 (F) Weight: 144 lbs Functional Status No Functional Status data Reason For Visit Reason For Visit Effective Dates Notes follow up 11/24/2019 dizziness 11/19/2019 Annual Checkup 09/25/2019 pt labs are scanned into chart abdominal pain 08/26/2019 follow up 05/07/2019 follow up 04/23/2019 [facility] fwup abdominal pain 03/27/2019 left lower [...] Care Encounters Encounter Performer Location Codes Date (83637) OFFICE/OUTPATIENT VISIT EST Diagnosis: Hypotension[ICD10: I95.9] Diagnosis: Chronic kidney disease[ICD10: N18.9] Jalyn DAILY [employer] [facility] CPT-4: 74934 11/24/2019 ([id number]) OFFICE/OUTPATIENT VISIT EST Diagnosis: Hypotension[ICD10: I95.9] Diagnosis: Dizziness and giddiness[ICD10: R42] Diagnosis: Polyuria[ICD10: R35.8] Jalyn Landeros [employer] [facility] CPT-4: 08894 11/19/2019 ([id number]) OFFICE/OUTPATIENT VISIT EST Diagnosis: Sigmoid diverticulitis[ICD10: K57.32] Jalyn DAILY [employer] [facility] CPT-4: 60113 08/26/2019 ([id number]) OFFICE/OUTPATIENT VISIT EST Diagnosis: Clostridium difficile colitis[ICD10: A04.72] Jalyn DAILY [employer] [facility] CPT-4: 87054 05/07/2019 ([id number]) OFFICE/OUTPATIENT VISIT EST Diagnosis: Clostridium difficile colitis[ICD10: A04.72] Diagnosis: Edema[ICD10: R60.9] Jalyn DAILY [employer] [facility] CPT-4: 85117 04/23/2019 ([id number]) OFFICE/OUTPATIENT VISIT EST Diagnosis: Constipation[ICD10: K59.00] Diagnosis: Left lower quadrant pain[ICD10: R10.32] Bhavna DAILY DO [facility] CPT-4: 95645 03/27/2019 ([id number]) OFFICE/OUTPATIENT VISIT EST Diagnosis: Acute kidney failure, unspecified[ICD10: N17.9] Jalyn DAILY DO [facility] CPT-4: 88346 03/18/2019 ([id number]) OFFICE/OUTPATIENT VISIT EST Diagnosis: Essential (primary) hypertension[ICD10: I10] Diagnosis: Chronic atrial fibrillation[ICD10: I48.2] Diagnosis: Mixed hyperlipidemia[ICD10: E78.2] Diagnosis: Other fatigue[ICD10: R53.83] Diagnosis: Abdominal distension (gaseous)[ICD10: R14.0] Jalyn DAILY DO [facility] CPT-4: 07071 02/12/2019 ([id number]) OFFICE/OUTPATIENT VISIT EST Diagnosis: Low back pain[ICD10: M54.5] Bhavna DOUGHERTY S. Michelle RENDER [facility] CPT-4: 55792 12/25/2018 ([id number]) OFFICE/OUTPATIENT VISIT EST Diagnosis: Low back pain[ICD10: M54.5] Bhavna DOUGHERTY S. Michelle RENDER [facility] CPT-4: 91456 12/12/2018 ([id number]) OFFICE/OUTPATIENT VISIT EST Diagnosis: Anemia, unspecified[ICD10: D64.9] Diagnosis: Chronic atrial fibrillation[ICD10: I48.2] Diagnosis: Other fatigue[ICD10: R53.83] Jalyn DAILY DO [facility] CPT-4: 96205 10/10/2018 ([id number]) OFFICE/OUTPATIENT VISIT EST Diagnosis: Acute on chronic combined systolic (congestive) and diastolic (congestive) heart failure[ICD10: I50.43] Diagnosis: Chronic atrial fibrillation[ICD10: I48.2] Jalyn DAILY DO [facility] CPT-4: 76195 08/27/2018 ([id number]) OFFICE/OUTPATIENT VISIT EST Diagnosis: Chronic atrial fibrillation[ICD10: I48.2] 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 [facility] CPT-4: 18282 08/13/2018 ([id number]) OFFICE/OUTPATIENT VISIT EST Diagnosis: Acute on chronic combined systolic (congestive) and diastolic (congestive) heart failure[ICD10: I50.43] Diagnosis: Essential (primary) hypertension[ICD10: I10] Diagnosis: Anemia, unspecified[ICD10: D64.9] Jalyn DAILY [employer] [facility] CPT-4: 10762 07/10/2018 ([id number]) OFFICE/OUTPATIENT VISIT EST Diagnosis: Chronic atrial fibrillation[ICD10: I48.2] Diagnosis: Acute on chronic combined systolic (congestive) and diastolic (congestive) heart failure[ICD10: I50.43] Diagnosis: Localized edema[ICD10: R60.0] Jalyn DAILY [employer] [facility] CPT-4: 38128 05/06/2018 ([id number]) OFFICE/OUTPATIENT VISIT EST Diagnosis: Generalized abdominal pain[ICD10: R10.84] Diagnosis: Pelvic and perineal pain[ICD10: R10.2] Diagnosis: Localized edema[ICD10: R60.0] Bhavna DAILY [employer] [facility] CPT-4: 04254 04/17/2018 ([id number]) OFFICE/OUTPATIENT VISIT EST Diagnosis: Urinary tract infection, site not specified[ICD10: N39.0] Diagnosis: Other insomnia[ICD10: G47.09] Diagnosis: Other fatigue[ICD10: R53.83] Diagnosis: Other forms of dyspnea[ICD10: R06.09] Diagnosis: Chronic atrial fibrillation[ICD10: I48.2] Diagnosis: Restless legs syndrome[ICD10: G25.81] Jalyn DAILY [employer] 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] Diagnosis: Essential (primary) hypertension[ICD10: I10] Diagnosis: Mixed hyperlipidemia[ICD10: E78.2] Diagnosis: Other fatigue[ICD10: R53.83] Diagnosis: Cardiac arrhythmia, unspecified[ICD10: I49.9] Diagnosis: Generalized abdominal pain[ICD10: R10.84] Diagnosis: Urinary tract infection, site not specified[ICD10: N39.0] Diagnosis: Other insomnia[ICD10: G47.09] Bhavna DAILY DO TRA CPT-4: 07852 01/30/2018 Plan of Care Planned Activity Notes Codes Status Date Visit Diagnosis Plan: Hypotension Discussion: Hold los kathy for next week Monitor home BP readings ICD-9 : 458.9 ICD-10 : I95.9 11/24/2019 Visit Diagnosis Plan: Chronic kidney disease Discussio n: Cr has improved some so will continue to hydrate and repeat CMP in 1 week Will only take 2.5mg of Coumadin tonight and then resume usual dose and check PT/INR in 1 week as well ICD-9 : 585.9 ICD-10 : N18.9 11/24/2019 Appointment: [facility] [phone] [id number] [facility] 11/24/2019 Visit Diagnosis Plan: Hypotension Discussion: BP today is okay ICD-9 : 458.9 ICD-10 : I95.9 11/19/2019 Visit Diagnosis Plan: Polyuria Discussion: UA normal ICD-9 : 788.42 ICD-10 : R35.8 11/19/2019 Visit Diagnosis Plan: Dizziness and giddiness Discussi on: Check lab--CBC, CMP, TSH, PT/INR now ICD-9 : 780.4 ICD-10 : R42 11/19/2019 Appointment: Jalyn Daily WPtel: [address] [place] [address] ACUTE ILLNESS 11/19/2019 Patient Education: [employer]- [employer] Coupon [id number] [email or web address] Completed 11/19/2019 Visit Diagnosis Plan: Encounter for gene [facility] adult medical examination with abnormal findings Discussion: [...] : I10 09/25/2019 Appointment: Jalyn Daily WPtel: [facility] Annual Well Visit 09/25/2019 Care Plan: COMPREH[place] : 96[address]-6 Pending 09/22/2019 Care Plan: COMPLETE CBC W/AUTO DIFF WBC LOINC : 51439-7 Pending 09/22/2019 Appointment: Bhavna Escalante [address] pt[address] feeling better and still had two [...] : K57.32 08/26/2019 Appointment: Jalyn Daily WPtel: [address] [place], [place] [id number] ACUTE ILLNESS 08/26/2019 Appointment: Jalyn Daily WPtel: [address] [place], [place] [id number] originally 4 mo follow up CANCELED 2018 Visit Diagnosis Plan: Clostridium difficile colitis Di scussion: Vancomycin daily for another week then 125mg every 3 days for 1 month then stop Fwup in September ICD-9 : 008.45 ICD-10 : A04.72 05/07/2019 Appointment: Jalyn Daily WPtel: [address] [place] [address] FOLLOW UP 05/07/2019 Visit Diagnosis Plan: Edema [...] 008.45 ICD-10 : A04.72 04/23/2019 Appointment: Jalyn Dailytel: [address] [place], [place] [phone] Hospital Follow Up 04/23/2019 Appointment: Bhavna Escalante [address] [facility] CANCELED 04/15/2019 Visit Diagnosis Plan: Left lower quadrant pain Discuss ion: will start with abdominal xray to rule out acute obstruction/constipation. if no acute findings, will treat as diverticulitis due to patient's past history. ICD-9 : 789.04 ICD-10 : R10.32 03/27/2019 Appointment: Bhavna Escalante [address] [facility] ACUTE ILLNESS 03/27/2019 Visit Diagnosis Plan: Acute kidney failure, unspecifie d Discussion: Was given Meloxicam at urgent care--discussed no NSAIDs, hydrate, repeat Chem 7 in 1 week ICD-9 : 584.9 ICD-10 : N17.9 03/18/2019 Appointment: Jalyn Daily WPtel: [address] [place] [address] [place] ACUTE ILLNESS 03/18/2019 Visit Diagnosis Plan: Abdominal distension (gaseous) D iscussion: Trial of Zenpep q AC ICD-9 : 787.3 ICD-10 : R14.0 02/12/2019 Visit Diagnosis Plan: Essential (primary) hypertension Discussion: Stable ICD-9 : 401.9 ICD-10 : I10 02/12/2019 Visit Diagnosis Plan: Chronic atrial fibrillation Disc ussion: Following routinely with Cardiology ICD-9 : 427.31 ICD-10 : I48.2 02/12/2019 Appointment: Jalyn Daily WPtel: [facility] [place] [address] US FOLLOW UP 02/12/2019 Appointment: Bhavna Escalante [address] [place] [address] [place] Canceled per guillermina. sending for mri [...] ICD-10 : M54.5 12/25/2018 Appointment: Bhavna Escalante [address] [place] [address] ACUTE ILLNESS 12/25/2018 Visit Diagnosis Plan: Low [...] ICD-10 : M54.5 12/12/2018 Appointment: Bhavna Escalante [address] [place], [place] [phone] US ACUTE ILLNESS 12/12/2018 Patient Education: cyclobenzaprine- [employer] Coupon [id number] https://www.[employer].Bloc/samplemd/resources/getResource/61/vw2813r6-k613-4b5p-w9 Completed 12/12/2018 [facility] [place] CANCELED 12/06/2018 Visit Diagnosis Plan: Chronic [...] : R53.83 10/10/2018 Appointment: Jalyn Daily WPtel: [address] [place] [address] US FOLLOW UP 10/10/2018 Visit Diagnosis Plan: [...] : I50.43 08/27/2018 Appointment: Jalyn Daily WPtel: [facility] [place] [id number] US FOLLOW UP 08/27/2018 Visit Diagnosis Plan: [...] ICD-10 : I48.2 08/13/2018 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 Discussion: Increase Coumadin to 5mg po daily and repeat PT/INR in 2 weeks ICD-9 : V58.61 ICD-10 : Z79.01 08/13/2018 Appointment: [facility]al[facility] Daily [facility]Ptel[facility] [phone] [facility] FOLLOW UP 08/13/2018 Patient Education: bumetanide- [employer] Coupon [id number] https://www.[employer]/resources/getResource/61/0br81i47-2pv4-4o08-ra Completed 08/13/2018 Patient Education: levothyroxine- [employer] Coupon [phone] [id number] https://www.[employer]/resources/getResource/61/6843478c-9384-1n29-ew Completed 08/13/2018 Patient Education: warfarin- [employer] Coupon [id number] https://www.[employer]/resources/getResource/61/38774882-wo03-49b9-1i Completed 08/13/2018 Patient Education: pantoprazole- [employer] Coupon [phone] [id number] https://www.[employer]/resources/getResource/61/f6817k16-32h1-18jc-5g Completed 08/13/2018 Patient Education: spironolactone- [employer] Coupon [phone] [id number] https://www.[employer]/resources/getResource/61/7qn235g2-b161-6149-oa Completed 08/13/2018 Visit Diagnosis Plan: Anemia, unspecified [...] : I50.43 07/10/2018 Appointment: Jalyn Daily WPtel: [address] [place] [address] 2nd FOLLOW UP 07/10/2018 Visit Diagnosis Plan: [...] : I48.2 05/06/2018 Appointment: Jalyn Daily WPtel: [address] [place] [address] US FOLLOW UP 05/06/2018 Visit Diagnosis Plan: [...] : 625.9 ICD-10 : R10.2 04/17/2018 Appointment: Bhavan Escalante [address] [place] [address] ACUTE ILLNESS 04/17/2018 Patient Education: Patient Medication Summary Completed 04/17/2018 Care Plan: CT ABDOMEN W/O & W/DYE LOINC : 28519-6 Pending 04/17/2018 Care Plan: CT PELVIS W/O & W/DYE LOINC : 04599-6 Pending 04/17/2018 Appointment: [facility]el[facility] [phone] [facility] [place] CANCELED 04/10/2018 Visit Diagnosis Plan: Urinary [...] : R53.83 03/26/2018 Visit Diagnosis Plan: Other insomnia Discussion: Wayne nue restoril at 15-30mg po q HS prn sleep ICD-9 : 327.09 ICD-10 : G47.09 03/26/2018 Visit Diagnosis Plan: Other forms of dyspnea Discussio n: Discussed starting pulmonary rehab vs cardiac rehab Follow Up: 1 months ICD-9 : 786.09 ICD-10 : R06.09 03/26/2018 Appointment: [facility] Daily [facility]el[facility] [phone] [facility] [facility] Follow UP 03/26/2018 Patient Education: Patient [...] ICD-10 : R41.82 03/15/2018 Appointment: Bhavna Escalante [address] [place] [address] ACUTE ILLNESS 03/15/2018 Patient Education: Patient Medication Summary Completed 03/15/2018 Visit Diagnosis Plan: Primary insomnia Discussion: Tri al of elavil 10mg po q HS ICD-9 : 780.52 ICD-10 : F51.01 02/26/2018 Visit Diagnosis Plan: Functional dyspepsia Discussion: Increase protonix to 40mg po BID Follow Up: 1 months ICD-9 : 536.8 ICD-10 : K30 02/26/2018 Appointment: Jalyn Daily WPtel: [address] [place] [address] WELCOME TO MEDICARE 02/26/2018 Patient Education: Patient Medication Summary Completed 02/26/2018 Referral: Song Noonan WPtel: [address] [place] [address] [place] Referral Initiated 02/19/2018 Appointment: Jalyn Daily WPtel: [address] [place], [place] [phone] US LAB 02/06/2018 Patient Education: Patient Medication Summary Completed 02/06/2018 Appointment: Jalyn Daily WPtel: [address] [place] [address] US CANCELED 02/01/2018 Care Plan: US EXAM ABDOM COMPLETE liver LOINC : 39107-7 Pending 01/31/2018 Visit Diagnosis Plan: Other fatigue [...] ICD-10 : I10 01/30/2018 Visit Diagnosis Plan: MCC (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 Discussion: instructed to avoid taking iubprofen while taking coumadin to prevent bleeding concerns. informed her to take tylenol or remaining hydrocodone from surgery if pain develops. ICD-9 : V58.61 ICD-10 : Z79.01 01/30/2018 Appointment: Bhavna Escalante [address] [place], [place] [address] NEW PATIENT 01/30/2018 Patient Education: [...]
--- OUTSIDE RECORDS SUMMARY | 2020-02-10 14:01 | XMS REPORT | CCD ---
Author Author Riana Escalante Organization JALYN SRuben DAILY DO [facility] Address [address] [place] [address] Phone Unavailable Care Team Providers Care Superintendent [employer] Name Role Phone PP Unavailable CCM Unavailable Summary Purpose Interface Exchange Insurance Providers Payer name Policy type / Coverage type Covered constitution party ID Effective Begin Date Effective End Date WPS MEDICARE PART B [place] Medicare Part B [id number] 2017 Unknown Cigna Medicare Part B [id number] 2017 Unknown Family History Family History data not found Social History Social History Element Codes Description Effective Dates Tobacco history SNOMED CT: 655311349 Never smoker 01/30/[address]: 186906099 Never drinks alcohol 2017 Allergies, Adverse Reactions, [...] hypertension ICD-9: 401.9 ICD-10: I10 01/30/2018 Active jail (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 ICD-9: V58.6 1 [...] Start Date Stop Date Status Fill Instructions potassium chloride ER 10 mEq capsule,extended release RxNorm : 385022 TAKE ONE CAPSULE BY MOUTH TWICE A DAY OF AND TAKE ONE CAPSULE BY MOUTH DAILY ON Sun12/23/2019 No Stop Date Active Colace 100 mg capsule RxNorm: 5317280 1 Capsule(s) Oral three ti mes a day 11/19/2019 12/19/2019 Inactive warfarin 5 mg tablet RxNorm: 620700 1 Tablet(s) Oral MW F and 1/2 tablet (2.5mg) , Sun, Sun09/30/2019 12/29/2019 Active levothyroxine 25 mcg tablet RxNorm: 683720 TAKE ONE TABLET BY M OUTH DAILY 09/30/2019 No Stop Date Active potassium chloride ER 10 mEq capsule,extended release RxNorm : 010640 1 Capsule(s) Oral two times a day on and 1 capsule 09/26/2019 09/26/2019 Inactive vancomycin 125 mg capsule RxNorm: 821658 2 Capsule(s) Oral Q8H 08/0909/05/2019 Inactive warfarin 5 mg tablet RxNorm: 825252 1 Tablet(s) Oral MW F and 1/2 tablet (2.5mg) , Sat & Sun 08/26/2019 09/29/2019 Inactive Colace 100 mg capsule RxNorm: 1415341 1 Capsule(s) Oral QD 08/26/19 20 11/18/2019 Inactive levothyroxine 25 mcg tablet RxNorm: 149832 1 Tablet(s) PO QD 201909/29/2019 Inactive spironolactone 25 mg tablet RxNorm: 332095 TAKE 1 TABLET BY DOUGLAS TH TWICE DAILY 06/22/2019 09/19/2019 Inactive losartan 25 mg tablet RxNorm: 372827 TAKE 1 TABLET BY M OUTH ONCE DAILY IN THE MORNING 05/26/2019 No Stop Date Active bumetanide 1 mg tablet RxNorm: 383611 TAKE 1 TABLET BY MOUTH TWICE DAILY AT 6AM AND 6PM 05/23/2019 No Stop Date Active vancomycin 125 mg capsule RxNorm: 931528 1 Capsule(s) Oral Q3D 04/1008/25/2019 Inactive pantoprazole 40 mg tablet,delayed release RxNorm: 603532 1-2 Ta blet(s) Oral QD 04/23/2019 05/23/2019 Inactive potassium chloride ER 10 mEq capsule,extended release RxNorm : 588195 1 Capsule(s) Oral QD 04/23/2019 09/25/2019 Inactive warfarin 5 mg tablet RxNorm: 408948 Tablet(s) Oral Take 1 tablet (5mg) by mouth on and Sun then 1/2 tablet (2.5mg) on Sun, Sun, , Sat and Sun 04/23/2019 08/25/2019 Inactive temazepam 15 mg capsule RxNorm: 490373 TAKE 1 TO 2 CAPS ULES BY MOUTH AT BEDTIME NEEDED FOR SLEEP 04/08/2019 09/25/2019 Inactive Cipro 250 mg tablet RxNorm: 075913 1 Tablet(s) Oral two times a day 03/27/2019 04/03/2019 Inactive metronidazole 500 mg tablet RxNorm: 450277 1 Tablet(s) Oral thr ee times a day 03/27/2019 04/03/2019 Inactive bumetanide 1 mg tablet RxNorm: 629082 1 Tablet(s) PO BID (6am a nd 6pm) 02/13/2019 05/13/2019 Inactive levothyroxine 25 mcg tablet RxNorm: 672779 1 Tablet(s) PO QD 201807/13/2019 Inactive warfarin 5 mg tablet RxNorm: 639672 1 TABLET(S) PO TUES , WED, THURS, SAT AND SUN AND 1/2 TABLET ON 02/04/2019 02/11/2019 Inactive Kendra ent requests 90 days supply warfarin 5 mg tablet RxNorm: 090138 1 TABLET(S) PO TUES , WED, THURS, SAT AND SUN AND 1/2 TABLET ON 02/03/2019 02/03/2019 Inactive Kendra ent requests 90 days supply levothyroxine 25 mcg tablet RxNorm: 845054 1 Tablet(s) PO QD 201802/03/2019 Inactive warfarin 5 mg tablet RxNorm: 272040 1 Tablet(s) PO Tues , Wed, Thurs, Sat and Sun and 1/2 tablet on 01/31/2019 02/02/2019 Inactive temazepam 15 mg capsule RxNorm: 886798 TAKE 1 TO 2 CAPS ULES BY MOUTH AT BEDTIME NEEDED FOR SLEEP 01/31/2019 04/07/2019 Inactive cyclobenzaprine 10 mg tablet RxNorm: 755724 1 Tablet(s) PO Q8H as needed 12/30/2018 09/25/2019 Inactive losartan 25 mg tablet RxNorm: 142703 1 Tablet(s) PO QAM 12/27/2018 Inactive Lidoderm 5 % topical patch RxNorm: 1246782 1 Application TOP Q12H and then off for 12 hours 12/25/2018 01/23/2019 Inactive Lidoderm 5 % topical patch RxNorm: 8511515 1 Application TOP Q12H and then off for 12 hours 12/25/2018 12/24/2018 Inactive cyclobenzaprine 5 mg tablet RxNorm: 259737 1 Tablet(s) PO Q8H a s needed 12/12/2018 12/24/2018 Inactive spironolactone 25 mg tablet RxNorm: 910021 1 Tablet(s) PO BID 09/2006/16/2019 Inactive change in directions to BID pantoprazole 40 mg tablet,delayed release RxNorm: 118072 1 Tabl et(s) PO QD 09/20/2018 04/22/2019 Inactive Patient requests 9 0 days supply spironolactone 25 mg tablet RxNorm: 517986 1 Tablet(s) PO BID 08/2609/19/2018 Inactive change in directions to BID pantoprazole 40 mg tablet,delayed release RxNorm: 736914 1 Tabl et(s) PO QD 08/15/2018 09/19/2018 Inactive Patient requests 9 0 days supply carvedilol 6.25 mg tablet RxNorm: 062539 1 Tablet(s) PO BID 019 02/08/2019 Inactive pantoprazole 40 mg tablet,delayed release RxNorm: 274991 1 Tablet(s) PO QD 1 TABLET(S) PO BID 08/13/2018 08/15/2018 Inactive Patient reque sts 90 days supply bumetanide 1 mg tablet RxNorm: 733028 1 Tablet(s) PO BID (6am a nd 6pm) 08/13/2018 02/08/2019 Inactive bumetanide 0.5 mg tablet RxNorm: 636807 1 Tablet(s) PO QPM three days a week--Sunday, Sun, Sunday instead of 1mg dose in evening 08/13/201812/2018 Inactive levothyroxine 25 mcg tablet RxNorm: 545349 1 Tablet(s) PO QD 201801/30/2019 Inactive spironolactone 25 mg tablet RxNorm: 599302 1 Tablet(s) PO QD 201808/25/2018 Inactive losartan 25 mg tablet RxNorm: 936206 1 Tablet(s) PO QAM 08/13/2018 Inactive warfarin 5 mg tablet RxNorm: 184022 1 Tablet(s) PO QD 08/13/201808/09 Inactive pantoprazole 40 mg tablet,delayed release RxNorm: 487881 1 TABL ET(S) PO BID 08/02/2018 08/12/2018 Inactive Patient requests 9 0 days supply temazepam 15 mg capsule RxNorm: 548680 1-2 Capsule(s) P O QHS as needed for sleep 2018 01/31/2019 Inactive Restoril 15 mg capsule RxNorm: 609985 1-2 Capsule(s) PO QHS as needed for sleep 06/04/2018 08/12/2018 Inactive potassium chloride ER 10 mEq capsule,extended release RxNorm : 373552 2 CAPSULE(S) PO QD 05/07/2018 08/04/2018 Inactive Patient reque sts 90 days supply temazepam 22.5 mg capsule RxNorm: 608595 1 Capsule(s) P O QHS as needed for sleep 05/06/2018 08/12/2018 Inactive potassium chloride ER 10 mEq capsule,extended release RxNorm : 758121 2 Capsule(s) PO QD 05/06/2018 05/06/2018 Inactive ropinirole 1 mg tablet RxNorm: 122097 1 TABLET(S) PO QHS FOR RE STLESS LEGS 03/27/2018 04/25/2018 Inactive Patient requests 9 0 days supply ropinirole 1 mg tablet RxNorm: 058227 1 Tablet(s) PO QHS for re stless legs 03/26/2018 03/26/2018 Inactive cefdinir 300 mg capsule RxNorm: 043183 1 Capsule(s) PO BID 03/26/20 18 03/30/2018 Inactive temazepam 15 mg capsule RxNorm: 783547 1 Capsule(s) PO QHS as neede d 03/20/2018 03/25/2018 Inactive Lunesta 3 mg tablet RxNorm: 205945 1 Tablet(s) PO QHS as needed for sleep 03/04/2018 03/19/2018 Inactive amitriptyline 10 mg tablet RxNorm: 887834 1 Tablet(s) PO QHS fo r sleep 02/26/2018 03/03/2018 Inactive escitalopram 20 mg tablet RxNorm: 439876 1 Tablet(s) PO QHS 018 08/12/2018 Inactive pantoprazole 40 mg tablet,delayed release RxNorm: 976406 1 Tabl et(s) PO BID 02/26/2018 04/26/2018 Inactive Coumadin 2.5 mg tablet RxNorm: 200403 1 Tablet(s) PO MWF 02/18/2018 0 07/22/2018 Inactive amiodarone 200 mg tablet RxNorm: 471616 1 Tablet(s) PO QD No Start Da te Active colestipol 1 gram tablet RxNorm: 4639258 1 Tablet(s) PO BID No Start Date Active pantoprazole 40 mg tablet,delayed release RxNorm: 847876 1 Tabl et(s) PO QD No Start Date Active pantoprazole 40 mg tablet,delayed release RxNorm: 732107 1 Tabl et(s) PO QD No Start Date 02/25/2018 Inactive bumetanide 1 mg tablet RxNorm: 310927 1 Tablet(s) PO BID (6am a nd 6pm) No Start Date 08/12/2018 Inactive potassium chloride ER 10 mEq tablet,extended release RxNorm: 250415 1 Tablet(s) PO QD No Start Date 02/11/2019 Inactive levothyroxine 25 mcg tablet RxNorm: 622945 1 Tablet(s) PO QD No Sta rt Date 08/12/2018 Inactive spironolactone 25 mg tablet RxNorm: 574200 1 Tablet(s) PO QD No Sta rt Date 08/12/2018 Inactive warfarin 5 mg tablet RxNorm: 132922 1 Tablet(s) PO MWF No Start Date 08/12/2018 Inactive warfarin 5 mg tablet RxNorm: 405616 1 Tablet(s) PO Tu , Wed, Th, Sat and Sun then 1/2 tablet (2.5mg) on Mon & Fri No Start Date 08/12/2018 Inactive losartan 25 mg tablet RxNorm: 400071 1 Tablet(s) PO QAM No Start Da te 08/12/2018 Inactive carvedilol 6.25 mg tablet RxNorm: 465274 1 Tablet(s) PO BID No Star t Date 08/12/2018 Inactive warfarin 2.5 mg tablet RxNorm: 090838 1 Tablet(s) PO Tues, Thur s, Sat and Sun No Start Date 08/12/2018 Inactive Coumadin 2.5 mg tablet RxNorm: 879478 Tablet(s) Mon Sun and Fri PO No Start Date 02/17/2018 Inactive Children's Multivitamin with Iron tablet RxNorm: 1 Table t(s) PO QD No Start Date 04/22/2019 Inactive potassium chloride ER 20 mEq tablet,extended release(p art/cryst) RxNorm: 7673184 2 Tablet(s) PO QD No Start Date 05/05/2018 Inactive Coumadin 5 mg tablet RxNorm: 606482 Tablet(s) PO No Start Date 2017 Inactive mexiletine 200 mg capsule RxNorm: 1942840 1 Capsule(s) PO BID No St art Date 03/25/2018 Inactive ferrous sulfate 325 mg (65 mg iron) tablet RxNorm: 514109 1 Tab let(s) PO QD No Start Date 07/22/2018 Inactive cyclobenzaprine 10 mg tablet RxNorm: 207143 1 Tablet(s) PO Q8H as needed No Start Date 12/29/2018 Inactive potassium chloride ER 10 mEq capsule,extended release RxNorm : 706278 2 Capsule(s) PO QD No Start Date 12/11/2018 Inactive Coumadin 5 mg tablet RxNorm: 342474 1 Tablet(s) PO Tues, Th, Sat and Sun No Start Date 07/22/2018 Inactive Restoril 15 mg capsule RxNorm: 346814 1-2 Capsule(s) PO QHS as needed for sleep No Start Date 05/05/2018 Inactive metoprolol succinate ER 25 mg tablet,extended release 24 hr RxNorm: 807708 1 Tablet(s) PO QD No Start Date 08/12/2018 Inactive Entresto 24 mg-26 mg tablet RxNorm: 0649125 1 Tablet(s) PO BID No S tart Date 08/12/2018 Inactive warfarin 5 mg tablet RxNorm: 812855 1 Tablet(s) PO , Sun, , Sat and Sun and 1/2 tablet on Sun/Sun No Start Date 01/30/2019 Inactive amiodarone 200 mg tablet RxNorm: 501935 2 Tablet(s) PO BID No Start Date 10/09/2018 Inactive furosemide 20 mg tablet RxNorm: 915425 1 Tablet(s) PO QD No Start D ate 08/12/2018 Inactive amiodarone 200 mg tablet RxNorm: 630841 1 Tablet(s) PO BID No Start Date 08/26/2018 Inactive atorvastatin 40 mg tablet RxNorm: 479220 1 Tablet(s) PO QD No Start Date 08/12/2018 Inactive warfarin 5 mg tablet RxNorm: 646129 1/2 Tablet(s) PO on Mon, Wed, Fri, Sun then 1 tablet on Sun, Th, Sat No Start Date 04/22/2019 Inactive Medication Administered No Medication Administered data Immunizations Vaccine Codes Date Status Hepatitis A CVX: 83 11/20/2019 Pneumovax CVX: 33 05/14/2019 Hepatitis A CVX: 83 03/25/2019 Influenza CVX: 135 03/25/2019 Results Observation Observation Code Item Item Code Result Date S ervice Location UA W/MICR 19441 UA Urine Appear Normal 02/06/2018 Unk nown UA W/MICR 80232 UA Protein 3+ 02/06/2018 Unknown UA W/MICR 40846 UA Hemoglobin Trace 02/06/2018 Unkno wn UA W/MICR 99653 UA Glucose Negative 02/06/2018 Unknown UA W/MICR 50360 UA Ketones Negative 02/06/2018 Unknown UA W/MICR 90169 UA pH 5.5 02/06/2018 Unknown UA W/MICR 72551 U Spec [place] 1.025 02/06/2018 Unkn own UA W/MICR 11471 UA Bilirubin Negative 02/06/2018 Unknow n UA W/MICR 50872 UA Leuk Esteras Trace 02/06/2018 Unk nown UA W/MICR 36196 UA Nitrite NEG 02/06/2018 Unknown UA W/MICR 21050 UA WBC/hpf 11-25 02/06/2018 Unknown UA W/MICR 47647 UA RBC hpf 0-5 02/06/2018 Unknown UA W/MICR 10688 UA Hyaline Cast 16-25 02/06/2018 Unk nown UA W/MICR 81414 UA Squam Epi Few 02/06/2018 Unknow n Procedures Procedure Codes Date URINALYSIS NONAUTO W/O SCOPE CPT-4: 13046 11/19/2019 INITIAL PREVENTIVE EXAM CPT-4: G0402 09/25/2019 URINALYSIS NONAUTO W/O SCOPE CPT-4: 57885 03/18/2019 URINE CULTURE/ COLONY COUNT CPT-4: 41470 03/18/2019 URINALYSIS NONAUTO W/O SCOPE CPT-4: 82552 12/12/2018 URINE CULTURE/ COLONY COUNT CPT-4: 36841 03/26/2018 URINALYSIS NONAUTO W/O SCOPE CPT-4: 78413 03/15/2018 INITIAL PREVENTIVE EXAM CPT-4: G0402 02/26/2018 URINALYSIS NONAUTO W/O SCOPE CPT-4: 39036 02/06/2018 URINE CULTURE/ COLONY COUNT CPT-4: 63464 02/06/2018 UA W/MICR CPT-4: 39456 02/06/2018 CUR TOBACCO NON-USER CPT-4: G8457 01/30/2018 REPAIR BLADDER & VAGINA CPT-4: 54218 01/06/2017 REPAIR OF RECTOCELE CPT-4: 33477 01/06/2017 BREAST SURGERY PROCEDURE CPT-4: 09390 Unknown LAPARO CHOLECYSTECTOMY/EXPLR CPT-4: 05827 Unknown HYSTERECTOMY/REVISE VAGINA CPT-4: 64310 Unknown Vital Signs Date Vital 11/24/2019 Blood [...] 1: 106/58 Code: 8480-6 BMI: 26.3 Code: 52362-9 Heart Rate 1: 72 bpm Height: 4'10" Respiratory Rate: 20 bpm SpO2: 97% Tempera ture: 36.6 (C) / 97.8 (F) Weight: 128 lbs 07/10/2018 Blood Pressure 1: 122/70 Code: 8480-6 BMI: 28.6 Code: 87459-6 Heart Rate 1: 80 bpm Height: 4'10" Respiratory Rate: 20 bpm SpO2: 96% Tempera ture: 36.9 (C) / 98.4 (F) Weight: 139 lbs 05/06/2018 Blood Pressure 1: 112/54 Code: 8480-6 BMI: 27.5 Code: 33853-2 Heart Rate 1: 80 bpm Height: 4'10" [...] 1: 146/80 Code: 8480-6 BMI: 30.0 Code: 12251-5 Heart Rate 1: 76 bpm Height: 4'10" Respiratory Rate: 20 bpm SpO2: 97% Tempera ture: 36.7 (C) / 98.1 (F) Weight: 146 lbs 02/26/2018 Blood Pressure 1: 126/80 Code: 8480-6 BMI: 29.6 Code: 16872-8 Heart Rate 1: 80 bpm Height: 4'10" Respiratory Rate: 18 bpm SpO2: 96% Tempera ture: 37.0 (C) / 98.6 (F) Weight: 144 lbs 01/30/2018 Blood Pressure 1: 120/78 Code: 8480-6 BMI: 29.6 Code: 83623-6 Heart Rate 1: 84 bpm Height: 4'10" [...] Care Encounters Encounter Performer Location Codes Date ([id number]) OFFICE/OUTPATIENT VISIT EST Diagnosis: Hypotension[ICD10: I95.9] Diagnosis: Chronic kidney disease[ICD10: N18.9] Jalyn DAILY [facility] CPT-4: 60077 11/24/2019 ([id number]) OFFICE/OUTPATIENT VISIT EST Diagnosis: Hypotension[ICD10: I95.9] Diagnosis: Dizziness and giddiness[ICD10: R42] Diagnosis: Polyuria[ICD10: R35.8] Jalyn Landeros [employer] [facility] CPT-4: 73139 11/19/2019 ([id number]) OFFICE/OUTPATIENT VISIT EST Diagnosis: Sigmoid diverticulitis[ICD10: K57.32] Jalyn DAILY [employer] [facility] CPT-4: 72935 08/26/2019 ([id number]) OFFICE/OUTPATIENT VISIT EST Diagnosis: Clostridium difficile colitis[ICD10: A04.72] Jalyn DAILY [employer] [facility] CPT-4: 91937 05/07/2019 ([id number]) OFFICE/OUTPATIENT VISIT EST Diagnosis: Clostridium difficile colitis[ICD10: A04.72] Diagnosis: Edema[ICD10: R60.9] Jalyn DAILY [facility] CPT-4: 22926 04/23/2019 ([id number]) OFFICE/OUTPATIENT VISIT EST Diagnosis: Constipation[ICD10: K59.00] Diagnosis: Left lower quadrant pain[ICD10: R10.32] Bhavna DAILY [facility] CPT-4: 55914 03/27/2019 ([id number]) OFFICE/OUTPATIENT VISIT EST Diagnosis: Acute kidney failure, unspecified[ICD10: N17.9] Jalyn DAILY [facility] CPT-4: 80427 03/18/2019 ([id number]) OFFICE/OUTPATIENT VISIT EST Diagnosis: Essential (primary) hypertension[ICD10: I10] Diagnosis: Chronic atrial fibrillation[ICD10: I48.2] Diagnosis: Mixed hyperlipidemia[ICD10: E78.2] Diagnosis: Other fatigue[ICD10: R53.83] Diagnosis: Abdominal distension (gaseous)[ICD10: R14.0] Jalyn DAILY [facility] CPT-4: 45790 02/12/2019 ([id number]) OFFICE/OUTPATIENT VISIT EST Diagnosis: Low back pain[ICD10: M54.5] Bhavna DOUGHERTY S. Michelle RENDER [facility] CPT-4: 53104 12/25/2018 ([id number]) OFFICE/OUTPATIENT VISIT EST Diagnosis: Low back pain[ICD10: M54.5] Bhavna DOUGHERTY S. O R[facility] CPT-4: 86648 12/12/2018 ([id number]) OFFICE/OUTPATIENT VISIT EST Diagnosis: Anemia, unspecified[ICD10: D64.9] Diagnosis: Chronic atrial fibrillation[ICD10: I48.2] Diagnosis: Other fatigue[ICD10: R53.83] Jalyn DAILY [facility] CPT-4: 43800 10/10/2018 ([id number]) OFFICE/OUTPATIENT VISIT EST Diagnosis: Acute on chronic combined systolic (congestive) and diastolic (congestive) heart failure[ICD10: I50.43] Diagnosis: Chronic atrial fibrillation[ICD10: I48.2] Jalyn DAILY [facility] CPT-4: 30586 08/27/2018 ([id number]) OFFICE/OUTPATIENT VISIT EST Diagnosis: Chronic atrial fibrillation[ICD10: I48.2] 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] Diagnosis: terminal carman (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[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] Jalyn DAILY DO [facility] CPT-4: 36309 08/13/2018 ([id number]) OFFICE/OUTPATIENT VISIT EST Diagnosis: Acute on chronic combined systolic (congestive) and diastolic (congestive) heart failure[ICD10: I50.43] Diagnosis: Essential (primary) hypertension[ICD10: I10] Diagnosis: Anemia, unspecified[ICD10: D64.9] Jalyn DAILY DO [facility] CPT-4: 15930 07/10/2018 ([id number]) OFFICE/OUTPATIENT VISIT EST Diagnosis: Chronic atrial fibrillation[ICD10: I48.2] Diagnosis: Acute on chronic combined systolic (congestive) and diastolic (congestive) heart failure[ICD10: I50.43] Diagnosis: Localized edema[ICD10: R60.0] Jalyn DAILY [employer] [facility] CPT-4: 12354 05/06/2018 ([id number]) OFFICE/OUTPATIENT VISIT EST Diagnosis: Generalized abdominal pain[ICD10: R10.84] Diagnosis: Pelvic and perineal pain[ICD10: R10.2] Diagnosis: Localized edema[ICD10: R60.0] Bhavna DAILY [employer] [facility] CPT-4: 78691 04/17/2018 ([id number]) OFFICE/OUTPATIENT VISIT EST Diagnosis: Urinary tract infection, site not specified[ICD10: N39.0] Diagnosis: Other insomnia[ICD10: G47.09] Diagnosis: Other fatigue[ICD10: R53.83] Diagnosis: Other forms of dyspnea[ICD10: R06.09] Diagnosis: Chronic atrial fibrillation[ICD10: I48.2] Diagnosis: Restless legs syndrome[ICD10: G25.81] Jalyn DAILY [employer] [facility] CPT-4: 46116 03/26/2018 ([id number]) OFFICE/OUTPATIENT VISIT EST Diagnosis: Altered mental status, unspecified[ICD10: R41.82] Diagnosis: terminal carman (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[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] Diagnosis: Hematuria, unspecified[ICD10: R31.9] Bhavna DAILY [employer] CPT-4: 46217 03/15/2018 ([id number]) NURSE/OUTPATIENT VISIT EST Diagnosis: Urinary tract infection, site not specified[ICD10: N39.0] Jalyn DAILY DO [employer] CPT-4: 84674 02/06/2018 OFFICE/OUTPATIENT VISIT NEW Diagnosis: terminal carman (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[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] Diagnosis: Essential (primary) hypertension[ICD10: I10] Diagnosis: Mixed hyperlipidemia[ICD10: E78.2] Diagnosis: Other fatigue[ICD10: R53.83] Diagnosis: Cardiac arrhythmia, unspecified[ICD10: I49.9] Diagnosis: Generalized abdominal pain[ICD10: R10.84] Diagnosis: Urinary tract infection, site not specified[ICD10: N39.0] Diagnosis: Other insomnia[ICD10: G47.09] Bhavna Escalante JALYN JaniceRuben DAPHNE [employer] CPT-4: 64864 01/30/2018 Plan of Care Planned Activity Notes [...] N18.9 11/24/2019 Appointment: [facility] [phone] [facility] [facility] 11/24/2019 Visit Diagnosis Plan: Hypotension Discussion: BP today is okay ICD-9 : 458.9 ICD-10 : I95.9 11/19/2019 Visit Diagnosis Plan: Polyuria Discussion: UA normal ICD-9 : 788.42 ICD-10 : R35.8 11/19/2019 Visit Diagnosis Plan: Dizziness and giddiness Discussi on: Check lab--CBC, CMP, TSH, PT/INR now ICD-9 : 780.4 ICD-10 : R42 11/19/2019 Appointment: Jalyn Daily WPtel: [address] [place] [address] ACUTE ILLNESS 11/19/2019 Patient Education: Colace- OptimizeRX Coupon [id number] [email or web address]/getResource/[email or web address] Completed 11/19/2019 Visit Diagnosis Plan: Encounter for [facility] adult medical examination with abnormal findings [...] : I10 09/25/2019 Appointment: Jalyn Daily WPtel: [address] [place] [address] Annual Well Visit 09/25/2019 Care Plan: COMPREH[place] : 618[address]-2 Pending 09/22/2019 Care Plan: COMPLETE CBC W/AUTO DIFF WBC LOINC : 34710-7 Pending 09/22/2019 Appointment: Bhavna Escalante [address] [address] [place] pt. feeling better and still had [...] : K57.32 08/26/2019 Appointment: Jalyn Daily WPtel: [address] [place], [place] [id number] ACUTE ILLNESS 08/26/2019 Appointment: Jalyn Daily WPtel: [address] [place] [address] originally 4 mo follow up CANCELED 2018 Visit Diagnosis Plan: Clostridium difficile colitis Di scussion: Vancomycin daily for another week then 125mg every 3 days for 1 month then stop Fwup in September ICD-9 : 008.45 ICD-10 : A04.72 05/07/2019 Appointment: Jalyn Daily WPtel: [address] [place], [place] [phone] FOLLOW UP 05/07/2019 Visit Diagnosis Plan: Edema Discussion: Low Na diet Ch armses CMP now ICD-9 : 782.3 ICD-10 : R60.9 04/23/2019 Visit Diagnosis Plan: Clostridium difficile colitis Di scussion: Finish current Vancomycin at 125mg po QID for full 10 days then go to 125mg po BID for 1 week then one daily for 1 week Fwup 2 weeks ICD-9 : 008.45 ICD-10 : A04.72 04/23/2019 Appointment: Jalyn Daily WPtel: [address] [place], [place] [phone] Follow Up 04/23/2019 Appointment: Bhavna Escalante [address] [place] [address] CANCELED 04/15/2019 Visit Diagnosis Plan: Left lower quadrant pain Discuss ion: will start with abdominal xray to rule out acute obstruction/constipation. if no acute findings, will treat as diverticulitis due to patient's past history. ICD-9 : 789.04 ICD-10 : R10.32 03/27/2019 Appointment: Bhavna Escalante [address] [place] [address] ACUTE ILLNESS 03/27/2019 Visit Diagnosis Plan: Acute kidney failure, unspecifie d Discussion: Was given Meloxicam at urgent care--discussed no NSAIDs, hydrate, repeat Chem 7 in 1 week ICD-9 : 584.9 ICD-10 : N17.9 03/18/2019 Appointment: Jalyn Daily WPtel: [facility] [facility] [place] ACUTE ILLNESS 03/18/2019 Visit Diagnosis Plan: Abdominal distension (gaseous) D iscussion: Trial of Zenpep q AC ICD-9 : 787.3 ICD-10 : R14.0 02/12/2019 Visit Diagnosis Plan: Chronic atrial fibrillation Disc ussion: Following routinely with Cardiology ICD-9 : 427.31 ICD-10 : I48.2 02/12/2019 Visit Diagnosis Plan: Essential (primary) hypertension Discussion: Stable ICD-9 : 401.9 ICD-10 : I10 02/12/2019 Appointment: Jalyn Daily WPtel: [facility] FOLLOW UP 02/12/2019 Appointment: Bhavna Escalante [address] [place] [address] [place] Canceled per guillermina. sending for mri [...] ICD-10 : M54.5 12/25/2018 Appointment: Bhavna Escalante [address] [place] [address] ACUTE ILLNESS 12/25/2018 Visit Diagnosis Plan: Low [...] ICD-10 : M54.5 12/12/2018 Appointment: Bhavna Escalante [address] [place], [place] [address] ACUTE ILLNESS 12/12/2018 Patient Education: cyclobenzaprine- Opt[employer]RX Coupon [id number] [email or web address]/resources/getResource/61/[email or web address] Completed 12/12/2018 Appointment: Bhavna Escalante [address] [address] [place] CANCELED 12/06/2018 Visit Diagnosis Plan: Chronic [...] : R53.83 10/10/2018 Appointment: Jalyn Daily WPtel: [address] [place] [address] [place] FOLLOW UP 10/10/2018 Visit Diagnosis Plan: [...] : I50.43 08/27/2018 Appointment: Jalyn Daily WPtel: [address] [place] [address] [place] FOLLOW UP 08/27/2018 Visit Diagnosis Plan: [...] Z79.01 08/13/2018 Appointment: [facility] Daily [facility]el[facility] [address] [facility] [facility] 08/13/2018 Patient Education: bumetanide- OptimizeRX Coupon [id number] https://www.[email or web address]/[email or web address]/resources/getResource/61/[email or web address] Completed 08/13/2018 Patient Education: levothyroxine- OptimizeRX Coupon [phone] https://www.[email or web address]/Skinny Mom/resources/getResource/61/[email or web address]-ee Completed 08/13/2018 Patient Education: warfarin- OptimizeRX Coupon [id number] [email or web address]://[email or web address] Mom/resources/getResource/[id number] Completed 08/13/2018 Patient Education: pantoprazole- [employer] Coupon [phone] https://www.[employer]/Skinny Mom/resources/getResource/[email or web address] Completed 08/13/2018 Patient Education: spironolactone- [employer] Coupon [phone] [id number] https://www.[employer]/Skinny Mom/resources/getResource/61/[email or web address]-ap Completed 08/13/2018 Visit Diagnosis Plan: Anemia, unspecified [...] : I50.43 07/10/2018 Appointment: Jalyn Daily WPtel: [address] [place] [address] FOLLOW UP 07/10/2018 Visit Diagnosis Plan: Acute [...] : I48.2 05/06/2018 Appointment: Jalyn Daily WPtel: [facility] [phone] [place] FOLLOW UP 05/06/2018 Visit Diagnosis Plan: [...] ICD-10 : R10.2 04/17/2018 Appointment: Bhavna Escalante [address] [place], [place] [id number] ACUTE ILLNESS 04/17/2018 Patient Education: Patient Medication Summary Completed 04/17/2018 Care Plan: CT ABDOMEN W/O & W/DYE LOINC : 38607-7 Pending 04/17/2018 Care Plan: CT PELVIS W/O & W/DYE LOINC : 87177-1 Pending 04/17/2018 [facility] [phone] [id number] [place] CANCELED 04/10/2018 Visit Diagnosis Plan: [...] R06.09 03/26/2018 Appointment[facility] [phone] [id number] [facility] Follow UP 03/26/2018 Patient Education: [...] ICD-10 : R41.82 03/15/2018 Appointment: Bhavna Escalante [address] [place] [address] ACUTE ILLNESS 03/15/2018 Patient Education: Patient Medication Summary Completed 03/15/2018 Visit Diagnosis Plan: Primary insomnia Discussion: Tri al of elavil 10mg po q HS ICD-9 : 780.52 ICD-10 : F51.01 02/26/2018 Visit Diagnosis Plan: Functional dyspepsia Discussion: Increase protonix to 40mg po BID Follow Up: 1 months ICD-9 : 536.8 ICD-10 : K30 02/26/2018 Appointment: Jalyn Daily WPtel: [address] [place] [address] WELCOME TO MEDICARE 02/26/2018 Patient Education: Patient Medication Summary Completed 02/26/2018 Referral: Song Noonan WPtel: [address] [place] [address] [place] Referral Initiated 02/19/2018 Appointment: Jalyn Daily WPtel: [address] [place] [address] US LAB 02/06/2018 Patient Education: Patient Medication Summary Completed 02/06/2018 Appointment: Jalyn Daily WPtel: [address] [place] [address] [place] CANCELED 02/01/2018 Care Plan: US EXAM ABDOM COMPLETE liver LOINC : 50973-0 Pending 01/31/2018 Visit Diagnosis Plan: Other fatigue [...] ICD-10 : I10 01/30/2018 Visit Diagnosis Plan: terminal carman (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 Discussion: instructed to avoid taking iubprofen while taking coumadin to prevent bleeding concerns. informed her to take tylenol or remaining hydrocodone from surgery if pain develops. ICD-9 : V58.61 ICD-10 : Z79.01 01/30/2018 Appointment: Bhavna Escalante [address] [place], [place] [id number] NEW PATIENT 01/30/2018 Patient Education: Patient Medication Summary Completed 01/30/2018 Instructions No Instructions Medical Equipment No Medical Equipment data Health Concerns Section Health Concerns data not found Goals Section Goals data not found Interventions Section Interventions data not found Health Status Evaluations/Outcomes Section Health Status Evaluations/Outcomes data not found Advance Directives No Advance Directive data
--- OUTSIDE RECORDS SUMMARY | 2020-02-10 14:02 | XMS REPORT | CCD ---
Author Author Riana Esaclante Organization JALYN SRuben DAILY DO [facility] Address [address] [place] [address] Phone Unavailable Care Team Providers Care Financial Report Service Sales Agent Name Role Phone PP Unavailable CCM Unavailable Summary Purpose Interface Exchange Insurance Providers Payer name Policy type / Coverage type Covered constitution party ID Effective Begin Date Effective End Date WPS MEDICARE PART [place] Medicare Part B [id number] 2017 Unknown Cigna Medicare Part B [id number] 2017 Unknown Family History Family History data not found Social History Social History Element Codes Description Effective Dates Tobacco history SNOMED CT: 618288436 Never smoker 01/30/[address]: 414700554 Never drinks alcohol 2017 Allergies, Adverse Reactions, [...] hypertension ICD-9: 401.9 ICD-10: I10 01/30/2018 Active penitentiary (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 ICD-9: V58.6 1 [...] Start Date Stop Date Status Fill Instructions Colace 100 mg capsule RxNorm: 2490454 1 Capsule(s) Oral three ti mes a day 11/19/2019 12/19/2019 Active warfarin 5 mg tablet RxNorm: 141976 1 Tablet(s) Oral MW F and 1/2 tablet (2.5mg) , [facility], [place] 09/30/2019 12/29/2019 Active levothyroxine 25 mcg tablet RxNorm: 855305 TAKE ONE TABLET BY M OUTH DAILY 09/30/2019 No Stop Date Active potassium chloride ER 10 mEq capsule,extended release RxNorm : 105682 1 Capsule(s) Oral two times a day on and 1 capsule 09/26/2019 09/26/2019 Inactive vancomycin 125 mg capsule RxNorm: 871885 2 Capsule(s) Oral Q8H 08/0909/05/2019 Inactive warfarin 5 mg tablet RxNorm: 173503 1 Tablet(s) Oral MW F and 1/2 tablet (2.5mg) , Sun & Sun08/26/2019 09/29/2019 Inactive Colace 100 mg capsule RxNorm: 4566078 1 Capsule(s) Oral QD 08/26/19 20 11/18/2019 Inactive levothyroxine 25 mcg tablet RxNorm: 247575 1 Tablet(s) PO QD 201909/29/2019 Inactive spironolactone 25 mg tablet RxNorm: 889155 TAKE 1 TABLET BY DOUGLAS TH TWICE DAILY 06/22/2019 09/19/2019 Inactive losartan 25 mg tablet RxNorm: 400702 TAKE 1 TABLET BY M OUTH ONCE DAILY IN THE MORNING 05/26/2019 No Stop Date Active bumetanide 1 mg tablet RxNorm: 665122 TAKE 1 TABLET BY MOUTH TWICE DAILY AT 6AM AND 6PM 05/23/2019 No Stop Date Active vancomycin 125 mg capsule RxNorm: 234955 1 Capsule(s) Oral Q3D 04/1008/25/2019 Inactive pantoprazole 40 mg tablet,delayed release RxNorm: 405505 1-2 Ta blet(s) Oral QD 04/23/2019 05/23/2019 Inactive potassium chloride ER 10 mEq capsule,extended release RxNorm : 051363 1 Capsule(s) Oral QD 04/23/2019 09/25/2019 Inactive warfarin 5 mg tablet RxNorm: 938768 Tablet(s) Oral Take 1 tablet (5mg) by mouth on and Sun then 1/2 tablet (2.5mg) on Sun, Sun, Th, Sat and Sun 04/23/2019 08/25/2019 Inactive temazepam 15 mg capsule RxNorm: 486772 TAKE 1 TO 2 CAPS ULES BY MOUTH AT BEDTIME NEEDED FOR SLEEP 04/08/2019 09/25/2019 Inactive Cipro 250 mg tablet RxNorm: 375561 1 Tablet(s) Oral two times a day 03/27/2019 04/03/2019 Inactive metronidazole 500 mg tablet RxNorm: 233247 1 Tablet(s) Oral thr ee times a day 03/27/2019 04/03/2019 Inactive bumetanide 1 mg tablet RxNorm: 602205 1 Tablet(s) PO BID (6am a nd 6pm) 02/13/2019 05/13/2019 Inactive levothyroxine 25 mcg tablet RxNorm: 999789 1 Tablet(s) PO QD 201807/13/2019 Inactive warfarin 5 mg tablet RxNorm: 286639 1 TABLET(S) PO , SUN, TH, SAT AND SUN AND 1/2 TABLET ON 02/04/2019 02/11/2019 Inactive Kendra ent requests 90 days supply warfarin 5 mg tablet RxNorm: 977583 1 TABLET(S) PO TUES , WED, THURS, SAT AND SUN AND 1/2 TABLET ON 02/03/2019 02/03/2019 Inactive Kendra ent requests 90 days supply levothyroxine 25 mcg tablet RxNorm: 166383 1 Tablet(s) PO QD 201802/03/2019 Inactive warfarin 5 mg tablet RxNorm: 101042 1 Tablet(s) PO Tues , Wed, Thurs, Sat and Sun and 1/2 tablet on 01/31/2019 02/02/2019 Inactive temazepam 15 mg capsule RxNorm: 758502 TAKE 1 TO 2 CAPS ULES BY MOUTH AT BEDTIME NEEDED FOR SLEEP 01/31/2019 04/07/2019 Inactive cyclobenzaprine 10 mg tablet RxNorm: 756312 1 Tablet(s) PO Q8H as needed 12/30/2018 09/25/2019 Inactive losartan 25 mg tablet RxNorm: 501195 1 Tablet(s) PO QAM 12/27/2018 Inactive Lidoderm 5 % topical patch RxNorm: 6901699 1 Application TOP Q12H and then off for 12 hours 12/25/2018 01/23/2019 Inactive Lidoderm 5 % topical patch RxNorm: 7095666 1 Application TOP Q12H and then off for 12 hours 12/25/2018 12/24/2018 Inactive cyclobenzaprine 5 mg tablet RxNorm: 410783 1 Tablet(s) PO Q8H a s needed 12/12/2018 12/24/2018 Inactive spironolactone 25 mg tablet RxNorm: 298789 1 Tablet(s) PO BID 09/2006/16/2019 Inactive change in directions to BID pantoprazole 40 mg tablet,delayed release RxNorm: 371956 1 Tabl et(s) PO QD 09/20/2018 04/22/2019 Inactive Patient requests 9 0 days supply spironolactone 25 mg tablet RxNorm: 205428 1 Tablet(s) PO BID 08/2609/19/2018 Inactive change in directions to BID pantoprazole 40 mg tablet,delayed release RxNorm: 715693 1 Tabl et(s) PO QD 08/15/2018 09/19/2018 Inactive Patient requests 9 0 days supply carvedilol 6.25 mg tablet RxNorm: 033384 1 Tablet(s) PO BID 019 02/08/2019 Inactive pantoprazole 40 mg tablet,delayed release RxNorm: 721792 1 Tablet(s) PO QD 1 TABLET(S) PO BID 08/13/2018 08/15/2018 Inactive Patient reque sts 90 days supply bumetanide 1 mg tablet RxNorm: 330212 1 Tablet(s) PO BID (6am a nd 6pm) 08/13/2018 02/08/2019 Inactive bumetanide 0.5 mg tablet RxNorm: 166324 1 Tablet(s) PO QPM three days a week--Sunday, Sun, Sunday instead of 1mg dose in evening 08/13/201812/2018 Inactive levothyroxine 25 mcg tablet RxNorm: 384987 1 Tablet(s) PO QD 201801/30/2019 Inactive spironolactone 25 mg tablet RxNorm: 664498 1 Tablet(s) PO QD 201808/25/2018 Inactive losartan 25 mg tablet RxNorm: 568117 1 Tablet(s) PO QAM 08/13/2018 Inactive warfarin 5 mg tablet RxNorm: 506022 1 Tablet(s) PO QD 08/13/201808/09 Inactive pantoprazole 40 mg tablet,delayed release RxNorm: 797280 1 TABL ET(S) PO BID 08/02/2018 08/12/2018 Inactive Patient requests 9 0 days supply temazepam 15 mg capsule RxNorm: 858316 1-2 Capsule(s) P O QHS as needed for sleep 2018 01/31/2019 Inactive Restoril 15 mg capsule RxNorm: 680598 1-2 Capsule(s) PO QHS as needed for sleep 06/04/2018 08/12/2018 Inactive potassium chloride ER 10 mEq capsule,extended release RxNorm : 009419 2 CAPSULE(S) PO QD 05/07/2018 08/04/2018 Inactive Patient reque sts 90 days supply temazepam 22.5 mg capsule RxNorm: 238017 1 Capsule(s) P O QHS as needed for sleep 05/06/2018 08/12/2018 Inactive potassium chloride ER 10 mEq capsule,extended release RxNorm : 222726 2 Capsule(s) PO QD 05/06/2018 05/06/2018 Inactive ropinirole 1 mg tablet RxNorm: 955120 1 TABLET(S) PO QHS FOR RE STLESS LEGS 03/27/2018 04/25/2018 Inactive Patient requests 9 0 days supply ropinirole 1 mg tablet RxNorm: 954993 1 Tablet(s) PO QHS for re stless legs 03/26/2018 03/26/2018 Inactive cefdinir 300 mg capsule RxNorm: 655811 1 Capsule(s) PO BID 03/26/20 18 03/30/2018 Inactive temazepam 15 mg capsule RxNorm: 762052 1 Capsule(s) PO QHS as neede d 03/20/2018 03/25/2018 Inactive Lunesta 3 mg tablet RxNorm: 753673 1 Tablet(s) PO QHS as needed for sleep 03/04/2018 03/19/2018 Inactive amitriptyline 10 mg tablet RxNorm: 601816 1 Tablet(s) PO QHS fo r sleep 02/26/2018 03/03/2018 Inactive escitalopram 20 mg tablet RxNorm: 362862 1 Tablet(s) PO QHS 018 08/12/2018 Inactive pantoprazole 40 mg tablet,delayed release RxNorm: 150319 1 Tabl et(s) PO BID 02/26/2018 04/26/2018 Inactive Coumadin 2.5 mg tablet RxNorm: 512696 1 Tablet(s) PO MWF 02/18/2018 0 07/22/2018 Inactive amiodarone 200 mg tablet RxNorm: 133640 1 Tablet(s) PO QD No Start Da te Active colestipol 1 gram tablet RxNorm: 7055035 1 Tablet(s) PO BID No Start Date Active pantoprazole 40 mg tablet,delayed release RxNorm: 704833 1 Tabl et(s) PO QD No Start Date Active pantoprazole 40 mg tablet,delayed release RxNorm: 642370 1 Tabl et(s) PO QD No Start Date 02/25/2018 Inactive bumetanide 1 mg tablet RxNorm: 866465 1 Tablet(s) PO BID (6am a nd 6pm) No Start Date 08/12/2018 Inactive potassium chloride ER 10 mEq tablet,extended release RxNorm: 008842 1 Tablet(s) PO QD No Start Date 02/11/2019 Inactive levothyroxine 25 mcg tablet RxNorm: 011312 1 Tablet(s) PO QD No Sta rt Date 08/12/2018 Inactive spironolactone 25 mg tablet RxNorm: 158364 1 Tablet(s) PO QD No Sta rt Date 08/12/2018 Inactive warfarin 5 mg tablet RxNorm: 059289 1 Tablet(s) PO MWF No Start Date 08/12/2018 Inactive warfarin 5 mg tablet RxNorm: 741810 1 Tablet(s) PO Tues , Wed, Th, Sat and Sun then 1/2 tablet (2.5mg) on Mon & Fri No Start Date 08/12/2018 Inactive losartan 25 mg tablet RxNorm: 830231 1 Tablet(s) PO QAM No Start Da te 08/12/2018 Inactive carvedilol 6.25 mg tablet RxNorm: 469209 1 Tablet(s) PO BID No Star t Date 08/12/2018 Inactive warfarin 2.5 mg tablet RxNorm: 729244 1 Tablet(s) PO Tues, Thur s, Sat and Sun No Start Date 08/12/2018 Inactive Coumadin 2.5 mg tablet RxNorm: 936148 Tablet(s) Sun and Sun PO No Start Date 02/17/2018 Inactive Children's Multivitamin with Iron tablet RxNorm: 1 Table t(s) PO QD No Start Date 04/22/2019 Inactive potassium chloride ER 20 mEq tablet,extended release(p art/cryst) RxNorm: 6601311 2 Tablet(s) PO QD No Start Date 05/05/2018 Inactive Coumadin 5 mg tablet RxNorm: 973015 Tablet(s) PO No Start Date 2017 Inactive mexiletine 200 mg capsule RxNorm: 3343910 1 Capsule(s) PO BID No St art Date 03/25/2018 Inactive ferrous sulfate 325 mg (65 mg iron) tablet RxNorm: 502889 1 Tab let(s) PO QD No Start Date 07/22/2018 Inactive cyclobenzaprine 10 mg tablet RxNorm: 009570 1 Tablet(s) PO Q8H as needed No Start Date 12/29/2018 Inactive potassium chloride ER 10 mEq capsule,extended release RxNorm : 484970 2 Capsule(s) PO QD No Start Date 12/11/2018 Inactive Coumadin 5 mg tablet RxNorm: 265206 1 Tablet(s) PO Tues, Th, Sat and Sun No Start Date 07/22/2018 Inactive Restoril 15 mg capsule RxNorm: 216220 1-2 Capsule(s) PO QHS as needed for sleep No Start Date 05/05/2018 Inactive metoprolol succinate ER 25 mg tablet,extended release 24 hr RxNorm: 569443 1 Tablet(s) PO QD No Start Date 08/12/2018 Inactive Entresto 24 mg-26 mg tablet RxNorm: 8994353 1 Tablet(s) PO BID No S tart Date 08/12/2018 Inactive warfarin 5 mg tablet RxNorm: 375527 1 Tablet(s) PO , Sun, , Sat and Sun and 1/2 tablet on Mon/Sun No Start Date 01/30/2019 Inactive amiodarone 200 mg tablet RxNorm: 127297 2 Tablet(s) PO BID No Start Date 10/09/2018 Inactive furosemide 20 mg tablet RxNorm: 924647 1 Tablet(s) PO QD No Start D ate 08/12/2018 Inactive amiodarone 200 mg tablet RxNorm: 504290 1 Tablet(s) PO BID No Start Date 08/26/2018 Inactive atorvastatin 40 mg tablet RxNorm: 746261 1 Tablet(s) PO QD No Start Date 08/12/2018 Inactive warfarin 5 mg tablet RxNorm: 666753 1/2 Tablet(s) PO on Sun, Sun, Sun, Sun then 1 tablet on Sun, , Sat No Start Date 04/22/2019 Inactive Medication Administered No Medication Administered data Immunizations Vaccine Codes Date Status Hepatitis A CVX: 83 11/20/2019 Pneumovax CVX: 33 05/14/2019 Hepatitis A CVX: 83 03/25/2019 Influenza CVX: 135 03/25/2019 Results Observation Observation Code Item Item Code Result Date S ervice Location UA W/MICR 58329 UA Urine Appear Normal 02/06/2018 Unk nown UA W/MICR 65962 UA Protein 3+ 02/06/2018 Unknown UA W/MICR 66928 UA Hemoglobin Trace 02/06/2018 Unkno wn UA W/MICR 24886 UA Glucose Negative 02/06/2018 Unknown UA W/MICR 29997 UA Ketones Negative 02/06/2018 Unknown UA W/MICR 90333 UA pH 5.5 02/06/2018 Unknown UA W/MICR 52833 U Spec [place] 1.025 02/06/2018 Unkn own UA W/MICR 35287 UA Bilirubin Negative 02/06/2018 Unknow n UA W/MICR 88199 UA Leuk Esteras Trace 02/06/2018 Unk nown UA W/MICR 94590 UA Nitrite NEG 02/06/2018 Unknown UA W/MICR 21155 UA WBC/hpf 11-25 02/06/2018 Unknown UA W/MICR 82808 UA RBC hpf 0-5 02/06/2018 Unknown UA W/MICR 82330 UA Hyaline Cast 16-25 02/06/2018 Unk nown UA W/MICR 04065 UA Squam Epi Few 02/06/2018 Unknow n Procedures Procedure Codes Date URINALYSIS NONAUTO W/O SCOPE CPT-4: 65949 11/19/2019 INITIAL PREVENTIVE EXAM CPT-4: G0402 09/25/2019 URINALYSIS NONAUTO W/O SCOPE CPT-4: 45216 03/18/2019 URINE CULTURE/ COLONY COUNT CPT-4: 78139 03/18/2019 URINALYSIS NONAUTO W/O SCOPE CPT-4: 16559 12/12/2018 URINE CULTURE/ COLONY COUNT CPT-4: 01804 03/26/2018 URINALYSIS NONAUTO W/O SCOPE CPT-4: 36716 03/15/2018 INITIAL PREVENTIVE EXAM CPT-4: G0402 02/26/2018 URINALYSIS NONAUTO W/O SCOPE CPT-4: 55478 02/06/2018 URINE CULTURE/ COLONY COUNT CPT-4: 46226 02/06/2018 UA W/MICR CPT-4: 34055 02/06/2018 CUR TOBACCO NON-USER CPT-4: G8457 01/30/2018 REPAIR BLADDER & VAGINA CPT-4: 95849 01/06/2017 REPAIR OF RECTOCELE CPT-4: 27858 01/06/2017 BREAST SURGERY PROCEDURE CPT-4: 17585 Unknown LAPARO CHOLECYSTECTOMY/EXPLR CPT-4: 14155 Unknown HYSTERECTOMY/REVISE VAGINA CPT-4: 21784 Unknown Vital Signs Date Vital 11/24/2019 Blood [...] 1: 106/58 Code: 8480-6 BMI: 26.3 Code: 94621-3 Heart Rate 1: 72 bpm Height: 4'10" Respiratory Rate: 20 bpm SpO2: 97% Tempera ture: 36.6 (C) / 97.8 (F) Weight: 128 lbs 07/10/2018 Blood Pressure 1: 122/70 Code: 8480-6 BMI: 28.6 Code: 76429-8 Heart Rate 1: 80 bpm Height: 4'10" Respiratory Rate: 20 bpm SpO2: 96% Tempera ture: 36.9 (C) / 98.4 (F) Weight: 139 lbs 05/06/2018 Blood Pressure 1: 112/54 Code: 8480-6 BMI: 27.5 Code: 47408-6 Heart Rate 1: 80 bpm Height: 4'10" [...] 1: 146/80 Code: 8480-6 BMI: 30.0 Code: 54740-6 Heart Rate 1: 76 bpm Height: 4'10" Respiratory Rate: 20 bpm SpO2: 97% Tempera ture: 36.7 (C) / 98.1 (F) Weight: 146 lbs 02/26/2018 Blood Pressure 1: 126/80 Code: 8480-6 BMI: 29.6 Code: 01070-7 Heart Rate 1: 80 bpm Height: 4'10" Respiratory Rate: 18 bpm SpO2: 96% Tempera ture: 37.0 (C) / 98.6 (F) Weight: 144 lbs 01/30/2018 Blood Pressure 1: 120/78 Code: 8480-6 BMI: 29.6 Code: 12390-0 Heart Rate 1: 84 bpm Height: 4'10" Respiratory Rate: 20 bpm SpO2: 97% Tempera ture: 36.0 (C) / 96.8 (F) Weight: 144 lbs Functional Status No Functional Status data Reason For Visit Reason For Visit Effective Dates Notes follow up 11/24/2019 dizziness 11/19/2019 Annual Checkup 09/25/2019 pt labs are scanned into chart abdominal pain 08/26/2019 follow up 05/07/2019 follow up 04/23/2019 [facility] fwup abdominal pain 03/27/2019 left lower [...] up 07/10/2018 Hospital/ER fwup follow up 05/06/2018 [facility] fwup abdominal pain 04/17/2018 follow up 03/26/2018 dizziness 03/15/2018 Patient had bladder biopsy on Sunday by Dr Noonan. states she has been holding her coumadin since Sunday insomnia 02/26/2018 blood in urine 02/06/2018 ~generic 01/30/2018 Establishing Care Encounters Encounter Performer Location Codes Date ([id number]) OFFICE/OUTPATIENT VISIT EST Diagnosis: Hypotension[ICD10: I95.9] Diagnosis: Chronic kidney disease[ICD10: N18.9] Jalyn Leigh BULLAUGIEANIBAL [employer] CPT-4: 17199 11/24/2019 ([id number]) OFFICE/OUTPATIENT VISIT EST Diagnosis: Hypotension[ICD10: I95.9] Diagnosis: Dizziness and giddiness[ICD10: R42] Diagnosis: Polyuria[ICD10: R35.8] Jalyn Landeros [facility] CPT-4: 11677 11/19/2019 ([id number]) OFFICE/OUTPATIENT VISIT EST Diagnosis: Sigmoid diverticulitis[ICD10: K57.32] Jalyn Leigh BULLROSS [facility] CPT-4: 35542 08/26/2019 ([id number]) OFFICE/OUTPATIENT VISIT EST Diagnosis: Clostridium difficile colitis[ICD10: A04.72] Jalyn Leigh BULLROSS [employer] [facility] CPT-4: 18862 05/07/2019 ([id number]) OFFICE/OUTPATIENT VISIT EST Diagnosis: Clostridium difficile colitis[ICD10: A04.72] Diagnosis: Edema[ICD10: R60.9] Jalyn Leigh BULLROSS [employer] [facility] CPT-4: 88686 04/23/2019 ([id number]) OFFICE/OUTPATIENT VISIT EST Diagnosis: Constipation[ICD10: K59.00] Diagnosis: Left lower quadrant pain[ICD10: R10.32] Bhavna Ava Leigh BULLNDER [employer] [facility] CPT-4: 05374 03/27/2019 ([id number]) OFFICE/OUTPATIENT VISIT EST Diagnosis: Acute kidney failure, unspecified[ICD10: N17.9] Jalyn Leigh BULLROSS [employer] [facility] CPT-4: 98528 03/18/2019 ([id number]) OFFICE/OUTPATIENT VISIT EST Diagnosis: Essential (primary) hypertension[ICD10: I10] Diagnosis: Chronic atrial fibrillation[ICD10: I48.2] Diagnosis: Mixed hyperlipidemia[ICD10: E78.2] Diagnosis: Other fatigue[ICD10: R53.83] Diagnosis: Abdominal distension (gaseous)[ICD10: R14.0] Jalyn DAILY [employer] [facility] CPT-4: 13099 02/12/2019 ([id number]) OFFICE/OUTPATIENT VISIT EST Diagnosis: Low back pain[ICD10: M54.5] Bhavna DOUGHERTY S. Michelle RENDER [employer] [facility] CPT-4: 72644 12/25/2018 ([id number]) OFFICE/OUTPATIENT VISIT EST Diagnosis: Low back pain[ICD10: M54.5] Bhavna DOUGHERTY S. O RENDER [employer] [facility] CPT-4: 05570 12/12/2018 ([id number]) OFFICE/OUTPATIENT VISIT EST Diagnosis: Anemia, unspecified[ICD10: D64.9] Diagnosis: Chronic atrial fibrillation[ICD10: I48.2] Diagnosis: Other fatigue[ICD10: R53.83] Jalyn DAILY [employer] [facility] CPT-4: 48061 10/10/2018 ([id number]) OFFICE/OUTPATIENT VISIT EST Diagnosis: Acute on chronic combined systolic (congestive) and diastolic (congestive) heart failure[ICD10: I50.43] Diagnosis: Chronic atrial fibrillation[ICD10: I48.2] Jalyn DAILY [employer] [facility] CPT-4: 56801 08/27/2018 ([id number]) OFFICE/OUTPATIENT VISIT EST Diagnosis: Chronic atrial fibrillation[ICD10: I48.2] 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] Diagnosis: penitentiary (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[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] Jalyn DAILY [employer] [facility] CPT-4: 42106 08/13/2018 ([id number]) OFFICE/OUTPATIENT VISIT EST Diagnosis: Acute on chronic combined systolic (congestive) and diastolic (congestive) heart failure[ICD10: I50.43] Diagnosis: Essential (primary) hypertension[ICD10: I10] Diagnosis: Anemia, unspecified[ICD10: D64.9] Jalyn DAILY DO [facility] CPT-4: 79645 07/10/2018 ([id number]) OFFICE/OUTPATIENT VISIT EST Diagnosis: Chronic atrial fibrillation[ICD10: I48.2] Diagnosis: Acute on chronic combined systolic (congestive) and diastolic (congestive) heart failure[ICD10: I50.43] Diagnosis: Localized edema[ICD10: R60.0] Jalyn DAILY [employer] [facility] CPT-4: 93266 05/06/2018 ([id number]) OFFICE/OUTPATIENT VISIT EST Diagnosis: Generalized abdominal pain[ICD10: R10.84] Diagnosis: Pelvic and perineal pain[ICD10: R10.2] Diagnosis: Localized edema[ICD10: R60.0] Bhavna DAILY [employer] [facility] CPT-4: 27772 04/17/2018 ([id number]) OFFICE/OUTPATIENT VISIT EST Diagnosis: Urinary tract infection, site not specified[ICD10: N39.0] Diagnosis: Other insomnia[ICD10: G47.09] Diagnosis: Other fatigue[ICD10: R53.83] Diagnosis: Other forms of dyspnea[ICD10: R06.09] Diagnosis: Chronic atrial fibrillation[ICD10: I48.2] Diagnosis: Restless legs syndrome[ICD10: G25.81] Jalyn Bullaugieanibal DAILY [employer] [facility] CPT-4: 35156 03/26/2018 ([id number]) OFFICE/OUTPATIENT VISIT EST Diagnosis: Altered mental status, unspecified[ICD10: R41.82] Diagnosis: penitentiary (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[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] Diagnosis: Hematuria, unspecified[ICD10: R31.9] Bhavna DAILY [employer] [facility] CPT-4: 97203 03/15/2018 ([id number]) NURSE/OUTPATIENT VISIT EST Diagnosis: Urinary tract infection, site not specified[ICD10: N39.0] Jalyn Abimbola DAILY [facility] CPT-4: 95192 02/06/2018 OFFICE/OUTPATIENT VISIT NEW Diagnosis: penitentiary (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[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] Diagnosis: Essential (primary) hypertension[ICD10: I10] Diagnosis: Mixed hyperlipidemia[ICD10: E78.2] Diagnosis: Other fatigue[ICD10: R53.83] Diagnosis: Cardiac arrhythmia, unspecified[ICD10: I49.9] Diagnosis: Generalized abdominal pain[ICD10: R10.84] Diagnosis: Urinary tract infection, site not specified[ICD10: N39.0] Diagnosis: Other insomnia[ICD10: G47.09] Bhavna Escalante JALYN DAILY [employer] CPT-4: 37385 01/30/2018 Plan of Care Planned Activity Notes Codes Status Date Visit Diagnosis Plan: Chronic kidney disease Discussio n: Cr has improved some so will continue to hydrate and repeat CMP in 1 week Will only take 2.5mg of Coumadin tonight and then resume usual dose and check PT/INR in 1 week as well ICD-9 : 585.9 ICD-10 : N18.9 11/24/2019 Visit Diagnosis Plan: Hypotension Discussion: Hold los kathy for next week Monitor home BP readings ICD-9 : 458.9 ICD-10 : I95.9 11/24/2019 Visit Diagnosis Plan: Hypotension Discussion: BP today is okay ICD-9 : 458.9 ICD-10 : I95.9 11/19/2019 Visit Diagnosis Plan: Polyuria Discussion: UA normal ICD-9 : 788.42 ICD-10 : R35.8 11/19/2019 Visit Diagnosis Plan: Dizziness and giddiness Discussi on: Check lab--CBC, CMP, TSH, PT/INR now ICD-9 : 780.4 ICD-10 : R42 11/19/2019 Appointment: [facility]alyn [facility] [phone] [id number] [facility] 11/19/2019 Patient Education: Colace- [employer] Coupon [id number] [email or web address]/[email or web address] [employer]/resources/getResource/[email or web address] Completed 11/19/2019 Visit Diagnosis Plan: Encounter for gene [facility] adult medical examination with abnormal findings [...] : I10 09/25/2019 Appointment: Jalyn Daily WPtel: [address] [place], [place] [phone] Annual Well Visit 09/25/2019 Care Plan: COMPREH[place] : 27489-9 Pending 09/22/2019 Care Plan: COMPLETE CBC W/AUTO DIFF WBC LOINC : 05983-9 Pending 09/22/2019 Appointment: Bhavna Escalante [address] [facility] [place] pt. feeling better and still [...] K57.32 08/26/2019 Appointment: Jalyn Daily WPtel: [address] [place], [place] [id number] ACUTE ILLNESS 08/26/2019 Appointment: Jalyn Daily WPtel: [address] [place], [place] [phone] originally 4 mo follow up CANCELED 2018 Visit Diagnosis Plan: Clostridium difficile colitis Di scussion: Vancomycin daily for another week then 125mg every 3 days for 1 month then stop Fwup in September ICD-9 : 008.45 ICD-10 : A04.72 05/07/2019 Appointment: Jalyn Daily WPtel: [address] [place] [address] FOLLOW UP 05/07/2019 Visit Diagnosis Plan: Edema [...] : A04.72 04/23/2019 Appointment: Jalyn Daily WPtel: [address] [place] [address] Hospital Follow Up 04/23/2019 Appointment: Bhavna Escalante [address] [place] [address] CANCELED 04/15/2019 Visit Diagnosis Plan: Left lower quadrant pain Discuss ion: will start with abdominal xray to rule out acute obstruction/constipation. if no acute findings, will treat as diverticulitis due to patient's past history. ICD-9 : 789.04 ICD-10 : R10.32 03/27/2019 Appointment: Bhavna Escalante [address] [place] [address] ACUTE ILLNESS 03/27/2019 Visit Diagnosis Plan: Acute kidney failure, unspecifie d Discussion: Was given Meloxicam at urgent care--discussed no NSAIDs, hydrate, repeat Chem 7 in 1 week ICD-9 : 584.9 ICD-10 : N17.9 03/18/2019 Appointment: Jalyn Daily WPtel: [address] [place] [address] ACUTE ILLNESS 03/18/2019 Visit Diagnosis Plan: Abdominal distension (gaseous) D iscussion: Trial of Zenpep q AC ICD-9 : 787.3 ICD-10 : R14.0 02/12/2019 Visit Diagnosis Plan: Essential (primary) hypertension Discussion: Stable ICD-9 : 401.9 ICD-10 : I10 02/12/2019 Visit Diagnosis Plan: Chronic atrial fibrillation Disc ussion: Following routinely with Cardiology ICD-9 : 427.31 ICD-10 : I48.2 02/12/2019 Appointment: Jalyn Daily WPtel: [phone] [id number] [place] FOLLOW UP 02/12/2019 Appointment: Bhavna Escalante [address] [place], [place] [phone] [place] Canceled per guillermina. sending for mri [...] ICD-10 : M54.5 12/25/2018 Appointment: Bhavna Escalante [address] [place], [place] [phone] ACUTE ILLNESS 12/25/2018 Visit Diagnosis Plan: Low [...] ICD-10 : M54.5 12/12/2018 Appointment: Bhavna Escalante [address] [place], [place] [phone] ACUTE ILLNESS 12/12/2018 Patient Education: cyclobenzaprine- [employer] Coupon [id number] [email or web address]/samplemd/resources/getResource/61/[email or web address] Completed 12/12/2018 Appointment: Bhavna Escalante [address] [place], [place] [phone] [place] CANCELED 12/06/2018 Visit Diagnosis Plan: Chronic atrial fibrillation Disc ussion: Cardiology monitoring PT/INR Follow Up: 4 months ICD-9 : 427.31 ICD-10 : I48.2 10/10/2018 Visit Diagnosis Plan: Anemia, unspecified Discussion: Update CBC ICD-9 : 285.9 ICD-10 : D64.9 10/10/2018 Visit Diagnosis Plan: Other fatigue Discussion: Increa se activity--discussed 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 ICD-9 : 780.79 ICD-10 : R53.83 10/10/2018 Appointment: Jalyn Dailytel: [address] [place], [place] [phone] [place] FOLLOW UP 10/10/2018 Visit Diagnosis Plan: [...] : I50.43 08/27/2018 Appointment: Jalyn Daily WPtel: [address] [place], [place] [phone] [place] FOLLOW UP 08/27/2018 Visit Diagnosis Plan: [...] ICD-10 : I48.2 08/13/2018 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 Discussion: Increase Coumadin to 5mg po daily and repeat PT/INR in 2 weeks ICD-9 : V58.61 ICD-10 : Z79.01 08/13/2018 Appointment: Jalyn Daily WPtel: [address] [place], [place] [phone] FOLLOW UP 08/13/2018 Patient Education: bumetanide- [employer] Coupon [id number] https://www.[employer]/resources/getRes500 Luchadores/61/4we73n78-1vq7-7p23-fc Completed 08/13/2018 Patient Education: levothyroxine- [employer] Coupon [id number] https://www.[employer]/resources/getResource/61/0886847d-1723-0u87-zp Completed 08/13/2018 Patient Education: warfarin- [employer] Coupon [id number] 1 https://www.[employer]/resources/MapeRes500 Luchadores/61/81121381-nb46-26n3-5z Completed 08/13/2018 Patient Education: pantoprazole- [employer] Coupon [phone] https://www.[employer]/resources/MapeResource/61/a5921x12-17u8-64ec-1h Completed 08/13/2018 Patient Education: spironolactone- [employer] Coupon 5 [id number] https://www.[employer]/resources/getResource/61/8dj926y6-d285-7258-eb Completed 08/13/2018 Visit Diagnosis Plan: Anemia, unspecified [...] I50.43 07/10/2018 Appointment: [facility]alyn Daily WPtel[phone] [facility] [address] FOLLOW UP 07/10/2018 Visit Diagnosis Plan: [...] : I48.2 05/06/2018 Appointment: Jalyn Daily WPtel: [address] [place] [address] [place] FOLLOW UP 05/06/2018 Visit Diagnosis Plan: [...] ICD-10 : R10.2 04/17/2018 Appointment: Bhavna Escalante [address] [place] [address] ACUTE ILLNESS 04/17/2018 Patient Education: Patient Medication Summary Completed 04/17/2018 Care Plan: CT ABDOMEN W/O & W/DYE LOINC : 29933-2 Pending 04/17/2018 Care Plan: CT PELVIS W/O & W/DYE LOINC : 13768-9 Pending 04/17/2018 Appointment: Jalyn Daily WPtel: [address] [place], [place] [phone] [place] CANCELED 04/10/2018 Visit Diagnosis Plan: Urinary [...] 1 months ICD-9 : 786.09 ICD-10 : R06.03/26/2018 Appointment: Jalyn Daily WPtel: [phone] [facility] ER Follow UP 03/26/2018 Patient Education: Patient [...] ICD-10 : R41.82 03/15/2018 Appointment: Bhavna Escalante [address] [place], [place] [id number] ACUTE ILLNESS 03/15/2018 Patient Education: Patient Medication Summary Completed 03/15/2018 Visit Diagnosis Plan: Primary insomnia Discussion: Tri al of elavil 10mg po q HS ICD-9 : 780.52 ICD-10 : F51.01 02/26/2018 Visit Diagnosis Plan: Functional dyspepsia Discussion: Increase protonix to 40mg po BID Follow Up: 1 months ICD-9 : 536.8 ICD-10 : K30 02/26/2018 Appointment: Jalyn Daily WPtel: [phone] [facility] WELCOME TO MEDICARE 02/26/2018 Patient Education: Patient Medication Summary Completed 02/26/2018 Referral: Song Noonan WPtel: [phone] [facility] [place] Referral Initiated 02/19/2018 Appointment: Jalyn Daily WPtel: [phone] [facility] [place] LAB 02/06/2018 Patient Education: Patient Medication Summary Completed 02/06/2018 Appointment: Jalyn Daily WPtel: [phone] [facility] [place] CANCELED 02/01/2018 Care Plan: US EXAM ABDOM COMPLETE liver LOINC : 09558-4 Pending 01/31/2018 Visit Diagnosis Plan: Other fatigue Discussion: will o rder fasting blood work to assess for any anemia or infection especially due to recent surgery and bleeding risks. ICD-9 : 780.79 ICD-10 : R53.83 01/30/2018 Visit Diagnosis Plan: penitentiary (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 Discussion: instructed [...] ICD-10 : N39.0 01/30/2018 Visit Diagnosis Plan: Cardiac arrhythmia, unspecified Discussion: keep appt with dr. cole on feb 07. ICD-9 : 427.9 ICD-10 : I49.9 01/30/2018 Visit Diagnosis Plan: Other insomnia Discussion: instr ucted patient to take tylenol PM or melatonin OTC. will discuss efficacy at next visit. needs to follow up in one month ICD-9 : 327.09 ICD-10 : G47.09 01/30/2018 Visit Diagnosis Plan: Generalized abdominal pain [...] ICD-9 : 401.9 ICD-10 : I10 01/30/2018 Appointment: Bhavna Escalante [address] [place], [place] [address] NEW PATIENT 01/30/2018 Patient Education: Patient Medication Summary Completed 01/30/2018 Instructions No Instructions Medical Equipment No Medical Equipment data Health Concerns Section Health Concerns data not found Goals Section Goals data not found Interventions Section Interventions data not found Health Status Evaluations/Outcomes Section Health Status Evaluations/Outcomes data not found Advance Directives No Advance Directive data
--- OUTSIDE RECORDS SUMMARY | 2020-02-10 14:03 | XMS REPORT | CCD ---
Author Author Riana Escalante Organization JALYN SRuben DAILY DO [facility] Address [address] [place] [address] Phone Unavailable Care Team Providers Care White Sugar Syrup Operator Name Role Phone PP Unavailable CCM Unavailable Summary Purpose Interface Exchange Insurance Providers Payer name Policy type / Coverage type Covered republican ID Effective Begin Date Effective End Date WPS MEDICARE PART B [place] Medicare Part B [id number] 2017 Unknown Cigna Medicare Part B [id number] 2017 Unknown Family History Family History data not found Social History Social History Element Codes Description Effective Dates Tobacco history SNOMED CT: 776057364 Never smoker 01/30/[address]: 178644382 Never drinks alcohol 2017 Allergies, Adverse Reactions, [...] Fill Instructions Colace 100 mg capsule RxNorm: 4525623 1 Capsule(s) Oral three ti mes a day 11/19/2019 12/19/2019 Active warfarin 5 mg tablet RxNorm: 438451 1 Tablet(s) Oral MW F and 1/2 tablet (2.5mg) , [facility] [place] 09/30/2019 12/29/2019 Active levothyroxine 25 mcg tablet RxNorm: 017558 TAKE ONE TABLET BY M OUTH DAILY 09/30/2019 No Stop Date Active potassium chloride ER 10 mEq capsule,extended release RxNorm : 431260 1 Capsule(s) Oral two times a day on and 1 capsule 09/26/2019 09/26/2019 Inactive vancomycin 125 mg capsule RxNorm: 204398 2 Capsule(s) Oral Q8H 08/0909/05/2019 Inactive warfarin 5 mg tablet RxNorm: 354439 1 Tablet(s) Oral MW F and 1/2 tablet (2.5mg) , Sun & Sun08/26/2019 09/29/2019 Inactive Colace 100 mg capsule RxNorm: 8456047 1 Capsule(s) Oral QD 08/26/19 20 11/18/2019 Inactive levothyroxine 25 mcg tablet RxNorm: 619591 1 Tablet(s) PO QD 201909/29/2019 Inactive spironolactone 25 mg tablet RxNorm: 348125 TAKE 1 TABLET BY DOUGLAS TH TWICE DAILY 06/22/2019 09/19/2019 Inactive losartan 25 mg tablet RxNorm: 571374 TAKE 1 TABLET BY M OUTH ONCE DAILY IN THE MORNING 05/26/2019 No Stop Date Active bumetanide 1 mg tablet RxNorm: 263541 TAKE 1 TABLET BY MOUTH TWICE DAILY AT 6AM AND 6PM 05/23/2019 No Stop Date Active vancomycin 125 mg capsule RxNorm: 314931 1 Capsule(s) Oral Q3D 04/1008/25/2019 Inactive pantoprazole 40 mg tablet,delayed release RxNorm: 536547 1-2 Ta blet(s) Oral QD 04/23/2019 05/23/2019 Inactive potassium chloride ER 10 mEq capsule,extended release RxNorm : 890289 1 Capsule(s) Oral QD 04/23/2019 09/25/2019 Inactive warfarin 5 mg tablet RxNorm: 850429 Tablet(s) Oral Take 1 tablet (5mg) by mouth on and Sun then 1/2 tablet (2.5mg) on Sun, Sun, Th, Sat and Sun 04/23/2019 08/25/2019 Inactive temazepam 15 mg capsule RxNorm: 647386 TAKE 1 TO 2 CAPS ULES BY MOUTH AT BEDTIME NEEDED FOR SLEEP 04/08/2019 09/25/2019 Inactive Cipro 250 mg tablet RxNorm: 875822 1 Tablet(s) Oral two times a day 03/27/2019 04/03/2019 Inactive metronidazole 500 mg tablet RxNorm: 722150 1 Tablet(s) Oral thr ee times a day 03/27/2019 04/03/2019 Inactive bumetanide 1 mg tablet RxNorm: 631322 1 Tablet(s) PO BID (6am a nd 6pm) 02/13/2019 05/13/2019 Inactive levothyroxine 25 mcg tablet RxNorm: 391202 1 Tablet(s) PO QD 201807/13/2019 Inactive warfarin 5 mg tablet RxNorm: 892997 1 TABLET(S) PO , SUN, TH, SAT AND SUN AND 1/2 TABLET ON 02/04/2019 02/11/2019 Inactive Kendra ent requests 90 days supply warfarin 5 mg tablet RxNorm: 374031 1 TABLET(S) PO TUES , WED, THURS, SAT AND SUN AND 1/2 TABLET ON 02/03/2019 02/03/2019 Inactive Kendra ent requests 90 days supply levothyroxine 25 mcg tablet RxNorm: 260610 1 Tablet(s) PO QD 201802/03/2019 Inactive warfarin 5 mg tablet RxNorm: 469488 1 Tablet(s) PO Tues , Wed, Thurs, Sat and Sun and 1/2 tablet on 01/31/2019 02/02/2019 Inactive temazepam 15 mg capsule RxNorm: 006772 TAKE 1 TO 2 CAPS ULES BY MOUTH AT BEDTIME NEEDED FOR SLEEP 01/31/2019 04/07/2019 Inactive cyclobenzaprine 10 mg tablet RxNorm: 587757 1 Tablet(s) PO Q8H as needed 12/30/2018 09/25/2019 Inactive losartan 25 mg tablet RxNorm: 838609 1 Tablet(s) PO QAM 12/27/2018 Inactive Lidoderm 5 % topical patch RxNorm: 7670863 1 Application TOP Q12H and then off for 12 hours 12/25/2018 01/23/2019 Inactive Lidoderm 5 % topical patch RxNorm: 7760886 1 Application TOP Q12H and then off for 12 hours 12/25/2018 12/24/2018 Inactive cyclobenzaprine 5 mg tablet RxNorm: 986290 1 Tablet(s) PO Q8H a s needed 12/12/2018 12/24/2018 Inactive spironolactone 25 mg tablet RxNorm: 997783 1 Tablet(s) PO BID 09/2006/16/2019 Inactive change in directions to BID pantoprazole 40 mg tablet,delayed release RxNorm: 533596 1 Tabl et(s) PO QD 09/20/2018 04/22/2019 Inactive Patient requests 9 0 days supply spironolactone 25 mg tablet RxNorm: 071725 1 Tablet(s) PO BID 08/2609/19/2018 Inactive change in directions to BID pantoprazole 40 mg tablet,delayed release RxNorm: 821389 1 Tabl et(s) PO QD 08/15/2018 09/19/2018 Inactive Patient requests 9 0 days supply carvedilol 6.25 mg tablet RxNorm: 771124 1 Tablet(s) PO BID 019 02/08/2019 Inactive pantoprazole 40 mg tablet,delayed release RxNorm: 624045 1 Tablet(s) PO QD 1 TABLET(S) PO BID 08/13/2018 08/15/2018 Inactive Patient reque sts 90 days supply bumetanide 1 mg tablet RxNorm: 513928 1 Tablet(s) PO BID (6am a nd 6pm) 08/13/2018 02/08/2019 Inactive bumetanide 0.5 mg tablet RxNorm: 804968 1 Tablet(s) PO QPM three days a week--Sunday, Sun, Sunday instead of 1mg dose in evening 08/13/201812/2018 Inactive levothyroxine 25 mcg tablet RxNorm: 775385 1 Tablet(s) PO QD 201801/30/2019 Inactive spironolactone 25 mg tablet RxNorm: 787890 1 Tablet(s) PO QD 201808/25/2018 Inactive losartan 25 mg tablet RxNorm: 094129 1 Tablet(s) PO QAM 08/13/2018 Inactive warfarin 5 mg tablet RxNorm: 418161 1 Tablet(s) PO QD 08/13/201808/09 Inactive pantoprazole 40 mg tablet,delayed release RxNorm: 185559 1 TABL ET(S) PO BID 08/02/2018 08/12/2018 Inactive Patient requests 9 0 days supply temazepam 15 mg capsule RxNorm: 932688 1-2 Capsule(s) P O QHS as needed for sleep 2018 01/31/2019 Inactive Restoril 15 mg capsule RxNorm: 087191 1-2 Capsule(s) PO QHS as needed for sleep 06/04/2018 08/12/2018 Inactive potassium chloride ER 10 mEq capsule,extended release RxNorm : 545667 2 CAPSULE(S) PO QD 05/07/2018 08/04/2018 Inactive Patient reque sts 90 days supply temazepam 22.5 mg capsule RxNorm: 436504 1 Capsule(s) P O QHS as needed for sleep 05/06/2018 08/12/2018 Inactive potassium chloride ER 10 mEq capsule,extended release RxNorm : 313911 2 Capsule(s) PO QD 05/06/2018 05/06/2018 Inactive ropinirole 1 mg tablet RxNorm: 887776 1 TABLET(S) PO QHS FOR RE STLESS LEGS 03/27/2018 04/25/2018 Inactive Patient requests 9 0 days supply ropinirole 1 mg tablet RxNorm: 955065 1 Tablet(s) PO QHS for re stless legs 03/26/2018 03/26/2018 Inactive cefdinir 300 mg capsule RxNorm: 997025 1 Capsule(s) PO BID 03/26/20 18 03/30/2018 Inactive temazepam 15 mg capsule RxNorm: 052266 1 Capsule(s) PO QHS as neede d 03/20/2018 03/25/2018 Inactive Lunesta 3 mg tablet RxNorm: 718530 1 Tablet(s) PO QHS as needed for sleep 03/04/2018 03/19/2018 Inactive amitriptyline 10 mg tablet RxNorm: 331858 1 Tablet(s) PO QHS fo r sleep 02/26/2018 03/03/2018 Inactive escitalopram 20 mg tablet RxNorm: 634263 1 Tablet(s) PO QHS 018 08/12/2018 Inactive pantoprazole 40 mg tablet,delayed release RxNorm: 197255 1 Tabl et(s) PO BID 02/26/2018 04/26/2018 Inactive Coumadin 2.5 mg tablet RxNorm: 976608 1 Tablet(s) PO MWF 02/18/2018 0 07/22/2018 Inactive amiodarone 200 mg tablet RxNorm: 858008 1 Tablet(s) PO QD No Start Da te Active colestipol 1 gram tablet RxNorm: 9613614 1 Tablet(s) PO BID No Start Date Active pantoprazole 40 mg tablet,delayed release RxNorm: 076041 1 Tabl et(s) PO QD No Start Date Active pantoprazole 40 mg tablet,delayed release RxNorm: 373640 1 Tabl et(s) PO QD No Start Date 02/25/2018 Inactive bumetanide 1 mg tablet RxNorm: 807933 1 Tablet(s) PO BID (6am a nd 6pm) No Start Date 08/12/2018 Inactive potassium chloride ER 10 mEq tablet,extended release RxNorm: 059864 1 Tablet(s) PO QD No Start Date 02/11/2019 Inactive levothyroxine 25 mcg tablet RxNorm: 298218 1 Tablet(s) PO QD No Sta rt Date 08/12/2018 Inactive spironolactone 25 mg tablet RxNorm: 501843 1 Tablet(s) PO QD No Sta rt Date 08/12/2018 Inactive warfarin 5 mg tablet RxNorm: 460333 1 Tablet(s) PO MWF No Start Date 08/12/2018 Inactive warfarin 5 mg tablet RxNorm: 109463 1 Tablet(s) PO Tues , Wed, Th, Sat and Sun then 1/2 tablet (2.5mg) on Mon & Fri No Start Date 08/12/2018 Inactive losartan 25 mg tablet RxNorm: 691965 1 Tablet(s) PO QAM No Start Da te 08/12/2018 Inactive carvedilol 6.25 mg tablet RxNorm: 537168 1 Tablet(s) PO BID No Star t Date 08/12/2018 Inactive warfarin 2.5 mg tablet RxNorm: 217815 1 Tablet(s) PO Tues, Thur s, Sat and Sun No Start Date 08/12/2018 Inactive Coumadin 2.5 mg tablet RxNorm: 030271 Tablet(s) Sun and Sun PO No Start Date 02/17/2018 Inactive Children's Multivitamin with Iron tablet RxNorm: 1 Table t(s) PO QD No Start Date 04/22/2019 Inactive potassium chloride ER 20 mEq tablet,extended release(p art/cryst) RxNorm: 1168774 2 Tablet(s) PO QD No Start Date 05/05/2018 Inactive Coumadin 5 mg tablet RxNorm: 600814 Tablet(s) PO No Start Date 2017 Inactive mexiletine 200 mg capsule RxNorm: 2086287 1 Capsule(s) PO BID No St art Date 03/25/2018 Inactive ferrous sulfate 325 mg (65 mg iron) tablet RxNorm: 277762 1 Tab let(s) PO QD No Start Date 07/22/2018 Inactive cyclobenzaprine 10 mg tablet RxNorm: 181032 1 Tablet(s) PO Q8H as needed No Start Date 12/29/2018 Inactive potassium chloride ER 10 mEq capsule,extended release RxNorm : 679195 2 Capsule(s) PO QD No Start Date 12/11/2018 Inactive Coumadin 5 mg tablet RxNorm: 802216 1 Tablet(s) PO Tues, Th, Sat and Sun No Start Date 07/22/2018 Inactive Restoril 15 mg capsule RxNorm: 882083 1-2 Capsule(s) PO QHS as needed for sleep No Start Date 05/05/2018 Inactive metoprolol succinate ER 25 mg tablet,extended release 24 hr RxNorm: 572222 1 Tablet(s) PO QD No Start Date 08/12/2018 Inactive Entresto 24 mg-26 mg tablet RxNorm: 6223757 1 Tablet(s) PO BID No S tart Date 08/12/2018 Inactive warfarin 5 mg tablet RxNorm: 474442 1 Tablet(s) PO , Sun, , Sat and Sun and 1/2 tablet on Mon/Sun No Start Date 01/30/2019 Inactive amiodarone 200 mg tablet RxNorm: 256530 2 Tablet(s) PO BID No Start Date 10/09/2018 Inactive furosemide 20 mg tablet RxNorm: 402457 1 Tablet(s) PO QD No Start D ate 08/12/2018 Inactive amiodarone 200 mg tablet RxNorm: 054289 1 Tablet(s) PO BID No Start Date 08/26/2018 Inactive atorvastatin 40 mg tablet RxNorm: 263391 1 Tablet(s) PO QD No Start Date 08/12/2018 Inactive warfarin 5 mg tablet RxNorm: 526624 1/2 Tablet(s) PO on Sun, Sun, Sun, Sun then 1 tablet on Sun, , Sat No Start Date 04/22/2019 Inactive Medication Administered No Medication Administered data Immunizations Vaccine Codes Date Status Hepatitis A CVX: 83 11/20/2019 Pneumovax CVX: 33 05/14/2019 Hepatitis A CVX: 83 03/25/2019 Influenza CVX: 135 03/25/2019 Results Observation Observation Code Item Item Code Result Date S ervice Location UA W/MICR 39231 UA Urine Appear Normal 02/06/2018 Unk nown UA W/MICR 24671 UA Protein 3+ 02/06/2018 Unknown UA W/MICR 39829 UA Hemoglobin Trace 02/06/2018 Unkno wn UA W/MICR 72155 UA Glucose Negative 02/06/2018 Unknown UA W/MICR 90821 UA Ketones Negative 02/06/2018 Unknown UA W/MICR 34428 UA pH 5.5 02/06/2018 Unknown UA W/MICR 41950 U Spec [place] 1.025 02/06/2018 Unkn own UA W/MICR 43951 UA Bilirubin Negative 02/06/2018 Unknow n UA W/MICR 65958 UA Leuk Esteras Trace 02/06/2018 Unk nown UA W/MICR 47961 UA Nitrite NEG 02/06/2018 Unknown UA W/MICR 00365 UA WBC/hpf 11-25 02/06/2018 Unknown UA W/MICR 17135 UA RBC hpf 0-5 02/06/2018 Unknown UA W/MICR 89593 UA Hyaline Cast 16-25 02/06/2018 Unk nown UA W/MICR 13368 UA Squam Epi Few 02/06/2018 Unknow n Procedures Procedure Codes Date URINALYSIS NONAUTO W/O SCOPE CPT-4: 65776 11/19/2019 INITIAL PREVENTIVE EXAM CPT-4: G0402 09/25/2019 URINALYSIS NONAUTO W/O SCOPE CPT-4: 36583 03/18/2019 URINE CULTURE/ COLONY COUNT CPT-4: 34481 03/18/2019 URINALYSIS NONAUTO W/O SCOPE CPT-4: 06057 12/12/2018 URINE CULTURE/ COLONY COUNT CPT-4: 36689 03/26/2018 URINALYSIS NONAUTO W/O SCOPE CPT-4: 06090 03/15/2018 INITIAL PREVENTIVE EXAM CPT-4: G0402 02/26/2018 URINALYSIS NONAUTO W/O SCOPE CPT-4: 32058 02/06/2018 URINE CULTURE/ COLONY COUNT CPT-4: 97031 02/06/2018 UA W/MICR CPT-4: 98529 02/06/2018 CUR TOBACCO NON-USER CPT-4: G8457 01/30/2018 REPAIR BLADDER & VAGINA CPT-4: 07000 01/06/2017 REPAIR OF RECTOCELE CPT-4: 59355 01/06/2017 BREAST SURGERY PROCEDURE CPT-4: 23157 Unknown LAPARO CHOLECYSTECTOMY/EXPLR CPT-4: 72275 Unknown HYSTERECTOMY/REVISE VAGINA CPT-4: 35958 Unknown Vital Signs Date Vital 11/24/2019 Blood [...] 1: 106/58 Code: 8480-6 BMI: 26.3 Code: 60352-7 Heart Rate 1: 72 bpm Height: 4'10" Respiratory Rate: 20 bpm SpO2: 97% Tempera ture: 36.6 (C) / 97.8 (F) Weight: 128 lbs 07/10/2018 Blood Pressure 1: 122/70 Code: 8480-6 BMI: 28.6 Code: 75983-3 Heart Rate 1: 80 bpm Height: 4'10" Respiratory Rate: 20 bpm SpO2: 96% Tempera ture: 36.9 (C) / 98.4 (F) Weight: 139 lbs 05/06/2018 Blood Pressure 1: 112/54 Code: 8480-6 BMI: 27.5 Code: 32128-0 Heart Rate 1: 80 bpm Height: 4'10" [...] 1: 146/80 Code: 8480-6 BMI: 30.0 Code: 03232-3 Heart Rate 1: 76 bpm Height: 4'10" Respiratory Rate: 20 bpm SpO2: 97% Tempera ture: 36.7 (C) / 98.1 (F) Weight: 146 lbs 02/26/2018 Blood Pressure 1: 126/80 Code: 8480-6 BMI: 29.6 Code: 38963-1 Heart Rate 1: 80 bpm Height: 4'10" Respiratory Rate: 18 bpm SpO2: 96% Tempera ture: 37.0 (C) / 98.6 (F) Weight: 144 lbs 01/30/2018 Blood Pressure 1: 120/78 Code: 8480-6 BMI: 29.6 Code: 83883-1 Heart Rate 1: 84 bpm Height: 4'10" [...] up 07/10/2018 Hospital/ER fwup follow up 05/06/2018 [facility] fwup abdominal pain 04/17/2018 follow up 03/26/2018 dizziness 03/15/2018 Patient had bladder biopsy on Sunday by Dr Noonan. states she has been holding her coumadin since Sunday insomnia 02/26/2018 blood in urine 02/06/2018 ~generic 01/30/2018 Establishing Care Encounters Encounter Performer Location Codes Date ([id number]) OFFICE/OUTPATIENT VISIT EST Diagnosis: Hypotension[ICD10: I95.9] Diagnosis: Chronic kidney disease[ICD10: N18.9] Jalyn Leigh [facility] CPT-4: 11590 11/24/2019 ([id number]) OFFICE/OUTPATIENT VISIT EST Diagnosis: Hypotension[ICD10: I95.9] Diagnosis: Dizziness and giddiness[ICD10: R42] Diagnosis: Polyuria[ICD10: R35.8] Jalyn Landeros [facility] CPT-4: 86145 11/19/2019 ([id number]) OFFICE/OUTPATIENT VISIT EST Diagnosis: Sigmoid diverticulitis[ICD10: K57.32] Jalyn Leigh [facility] CPT-4: 68870 08/26/2019 ([id number]) OFFICE/OUTPATIENT VISIT EST Diagnosis: Clostridium difficile colitis[ICD10: A04.72] Jalyn Leigh BULLROSS [employer] [facility] CPT-4: 05871 05/07/2019 ([id number]) OFFICE/OUTPATIENT VISIT EST Diagnosis: Clostridium difficile colitis[ICD10: A04.72] Diagnosis: Edema[ICD10: R60.9] Jalyn Leigh BULLROSS [employer] [facility] CPT-4: 60531 04/23/2019 ([id number]) OFFICE/OUTPATIENT VISIT EST Diagnosis: Constipation[ICD10: K59.00] Diagnosis: Left lower quadrant pain[ICD10: R10.32] Bhavna Ava Leigh BULLNDER [employer] [facility] CPT-4: 60693 03/27/2019 ([id number]) OFFICE/OUTPATIENT VISIT EST Diagnosis: Acute kidney failure, unspecified[ICD10: N17.9] Jalyn Leigh BULLROSS [employer] [facility] CPT-4: 44119 03/18/2019 ([id number]) OFFICE/OUTPATIENT VISIT EST Diagnosis: Essential (primary) hypertension[ICD10: I10] Diagnosis: Chronic atrial fibrillation[ICD10: I48.2] Diagnosis: Mixed hyperlipidemia[ICD10: E78.2] Diagnosis: Other fatigue[ICD10: R53.83] Diagnosis: Abdominal distension (gaseous)[ICD10: R14.0] Jalyn DAILY [employer] [facility] CPT-4: 65710 02/12/2019 ([id number]) OFFICE/OUTPATIENT VISIT EST Diagnosis: Low back pain[ICD10: M54.5] Bhavna DOUGHERTY S. Michelle RENDER [employer] [facility] CPT-4: 31412 12/25/2018 ([id number]) OFFICE/OUTPATIENT VISIT EST Diagnosis: Low back pain[ICD10: M54.5] Bhavna DOUGHERTY S. O RENDER [employer] [facility] CPT-4: 36121 12/12/2018 ([id number]) OFFICE/OUTPATIENT VISIT EST Diagnosis: Anemia, unspecified[ICD10: D64.9] Diagnosis: Chronic atrial fibrillation[ICD10: I48.2] Diagnosis: Other fatigue[ICD10: R53.83] Jalyn DAILY [employer] [facility] CPT-4: 33218 10/10/2018 ([id number]) OFFICE/OUTPATIENT VISIT EST Diagnosis: Acute on chronic combined systolic (congestive) and diastolic (congestive) heart failure[ICD10: I50.43] Diagnosis: Chronic atrial fibrillation[ICD10: I48.2] Jalyn DAILY [employer] [facility] CPT-4: 88081 08/27/2018 ([id number]) OFFICE/OUTPATIENT VISIT EST Diagnosis: Chronic atrial fibrillation[ICD10: I48.2] 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] Diagnosis: MCC (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[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] Jalyn DAILY [employer] [facility] CPT-4: 40853 08/13/2018 ([id number]) OFFICE/OUTPATIENT VISIT EST Diagnosis: Acute on chronic combined systolic (congestive) and diastolic (congestive) heart failure[ICD10: I50.43] Diagnosis: Essential (primary) hypertension[ICD10: I10] Diagnosis: Anemia, unspecified[ICD10: D64.9] Jalyn DAILY DO [facility] CPT-4: 67317 07/10/2018 ([id number]) OFFICE/OUTPATIENT VISIT EST Diagnosis: Chronic atrial fibrillation[ICD10: I48.2] Diagnosis: Acute on chronic combined systolic (congestive) and diastolic (congestive) heart failure[ICD10: I50.43] Diagnosis: Localized edema[ICD10: R60.0] Jalyn DAILY [employer] [facility] CPT-4: 49684 05/06/2018 ([id number]) OFFICE/OUTPATIENT VISIT EST Diagnosis: Generalized abdominal pain[ICD10: R10.84] Diagnosis: Pelvic and perineal pain[ICD10: R10.2] Diagnosis: Localized edema[ICD10: R60.0] Bhavna DAILY [employer] [facility] CPT-4: 63089 04/17/2018 ([id number]) OFFICE/OUTPATIENT VISIT EST Diagnosis: Urinary tract infection, site not specified[ICD10: N39.0] Diagnosis: Other insomnia[ICD10: G47.09] Diagnosis: Other fatigue[ICD10: R53.83] Diagnosis: Other forms of dyspnea[ICD10: R06.09] Diagnosis: Chronic atrial fibrillation[ICD10: I48.2] Diagnosis: Restless legs syndrome[ICD10: G25.81] Jalyn Bullaugieanibal DAILY [employer] [facility] CPT-4: 27694 03/26/2018 ([id number]) OFFICE/OUTPATIENT VISIT EST Diagnosis: Altered mental status, unspecified[ICD10: R41.82] Diagnosis: MCC (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[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] Diagnosis: Hematuria, unspecified[ICD10: R31.9] Bhavna DAILY [employer] [facility] CPT-4: 88128 03/15/2018 ([id number]) NURSE/OUTPATIENT VISIT EST Diagnosis: Urinary tract infection, site not specified[ICD10: N39.0] Jalyn Abimbola DAILY [facility] CPT-4: 71148 02/06/2018 OFFICE/OUTPATIENT VISIT NEW Diagnosis: MCC (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[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] Diagnosis: Essential (primary) hypertension[ICD10: I10] Diagnosis: Mixed hyperlipidemia[ICD10: E78.2] Diagnosis: Other fatigue[ICD10: R53.83] Diagnosis: Cardiac arrhythmia, unspecified[ICD10: I49.9] Diagnosis: Generalized abdominal pain[ICD10: R10.84] Diagnosis: Urinary tract infection, site not specified[ICD10: N39.0] Diagnosis: Other insomnia[ICD10: G47.09] Bhavna Escalante JALYN DAILY [facility] CPT-4: 42102 01/30/2018 Plan of Care Planned Activity Notes [...] R42 11/19/2019 [facility]ment[facility] [phone] [id number] [facility] 11/19/2019 Patient Education: Colace- OptimizeRX Coupon [id number] https://www.Topix/sampleAvanse [employer]/resources/getResource/61/27h2h0c9-e85g-7bv1-82 Completed 11/19/2019 Visit Diagnosis Plan: Encounter for gene [facility] adult medical examination with abnormal [...] I10 09/25/2019 Appointment: Jalyn Daily WPtel: [address] [place], [place] [phone] Annual Well Visit 09/25/2019 Care Plan: COM[place] : [address]-8 Pending 09/22/2019 Care Plan: COMPLETE CBC W/AUTO DIFF WBC LOINC : 77093-2 Pending 09/22/2019 Appointment: Bhavna Escalante [address] [facility] US pt. feeling better and still had [...] : K57.32 08/26/2019 Appointment: Jalyn Daily WPtel: [address] [place], [place] [id number] ACUTE ILLNESS 08/26/2019 Appointment: Jalyn Daily WPtel: [address] [place], [place] [phone] originally 4 mo follow up CANCELED 2018 Visit Diagnosis Plan: Clostridium difficile colitis Di scussion: Vancomycin daily for another week then 125mg every 3 days for 1 month then stop Fwup in September ICD-9 : 008.45 ICD-10 : A04.72 05/07/2019 Appointment: Jalyn Daily WPtel: [address] [place] [address] FOLLOW UP 05/07/2019 Visit Diagnosis Plan: Edema [...] : A04.72 04/23/2019 Appointment: Jalyn Daily WPtel: [address] [place] [address] Hospital Follow Up 04/23/2019 Appointment: Bhavna Escalante [address] [place] [address] CANCELED 04/15/2019 Visit Diagnosis Plan: Left lower quadrant pain Discuss ion: will start with abdominal xray to rule out acute obstruction/constipation. if no acute findings, will treat as diverticulitis due to patient's past history. ICD-9 : 789.04 ICD-10 : R10.32 03/27/2019 Appointment: Bhavna Escalante [address] [place] [address] ACUTE ILLNESS 03/27/2019 Visit Diagnosis Plan: Acute kidney failure, unspecifie d Discussion: Was given Meloxicam at urgent care--discussed no NSAIDs, hydrate, repeat Chem 7 in 1 week ICD-9 : 584.9 ICD-10 : N17.9 03/18/2019 Appointment: Jalyn Daily WPtel: [address] [place] [address] ACUTE ILLNESS 03/18/2019 Visit Diagnosis Plan: Abdominal [...] Appointment: Jalyn Daily WPtel: [phone] [id number] [place] FOLLOW UP 02/12/2019 Appointment: Bhavna Escalante [address] [place], [place] [phone] [place] Canceled per guillermina. sending for mri [...] ICD-10 : M54.5 12/25/2018 Appointment: Bhavna Escalante [address] [place], [place] [phone] ACUTE ILLNESS 12/25/2018 Visit Diagnosis Plan: Low [...] ICD-10 : M54.5 12/12/2018 Appointment: Bhavna Escalante [address] [place], [place] [phone] ACUTE ILLNESS 12/12/2018 Patient Education: cyclobenzaprine- OptimizeRX Coupon [id number] https://www.TalentSky.Gigamon/samplemd/resources/getResource/61/[email or web address]-[email or web address] Completed 12/12/2018 Appointment: Bhavna Escalante [address] [place], [place] [phone] [place] CANCELED 12/06/2018 Visit Diagnosis Plan: Chronic atrial fibrillation Disc ussion: Cardiology monitoring PT/INR Follow Up: 4 months ICD-9 : 427.31 ICD-10 : I48.2 10/10/2018 Visit Diagnosis Plan: Anemia, unspecified Discussion: Update CBC ICD-9 : 285.9 ICD-10 : D64.9 10/10/2018 Visit Diagnosis Plan: Other fatigue Discussion: Increa se activity--discussed 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 ICD-9 : 780.79 ICD-10 : R53.83 10/10/2018 Appointment: Jalyn Dailytel: [address] [place], [place] [phone] US FOLLOW UP 10/10/2018 Visit Diagnosis Plan: [...] : I50.43 08/27/2018 Appointment: Jalyn Daily WPtel: [address] [place], [place] [phone] [place] FOLLOW UP 08/27/2018 Visit Diagnosis Plan: [...] ICD-10 : I48.2 08/13/2018 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 Discussion: Increase Coumadin to 5mg po daily and repeat PT/INR in 2 weeks ICD-9 : V58.61 ICD-10 : Z79.01 08/13/2018 Appointment: Jalyn Daily WPtel: [address] [place], [place] [phone] FOLLOW UP 08/13/2018 Patient Education: bumetanide- OptimizeRX Coupon [phone] https://www.Topix/TalentSky/resources/getResBad [employer]/61/[email or web address]-pu Completed 08/13/2018 Patient Education: levothyroxine- OptimizeRX Coupon [phone] [id number] https://www.Topix/TalentSky/resources/getResource/61/5373626n-5167-6y25-fm Completed 08/13/2018 Patient Education: warfarin- OptimizeRX Coupon [id number] https://www.Topix/TalentSky/resources/WishdatesResBad [employer]/61/38032791-jy82-21p9-8v Completed 08/13/2018 Patient Education: pantoprazole- OptimizeRX Coupon [phone] https://www.Topix/TalentSky/resources/WishdatesResource/61/v5139b84-90l7-67hd-1s Completed 08/13/2018 Patient Education: spironolactone- OptimizeRX Coupon 5 [id number] https://www.Topix/TalentSky/resources/getResource/61/2se472d8-u184-0517-aq Completed 08/13/2018 Visit Diagnosis Plan: Anemia, unspecified [...] I50.43 07/10/2018 Appointment: Jalyn Daily WPtel: [phone] [facility] [address] FOLLOW UP 07/10/2018 Visit Diagnosis Plan: [...] : I48.2 05/06/2018 Appointment: Jalyn Daily WPtel: [address] [place] [address] [place] FOLLOW UP 05/06/2018 Visit Diagnosis Plan: [...] ICD-10 : R60.0 04/17/2018 Appointment: Bhavna Escalante [address] [place] [address] ACUTE ILLNESS 04/17/2018 Patient Education: Patient Medication Summary Completed 04/17/2018 Care Plan: CT ABDOMEN W/O & W/DYE LOINC : 96230-9 Pending 04/17/2018 Care Plan: CT PELVIS W/O & W/DYE LOINC : 10459-8 Pending 04/17/2018 Appointment: Jalyn Daily WPtel: [address] [place], [place] [phone] [place] CANCELED 04/10/2018 Visit Diagnosis Plan: Other [...] R53.83 03/26/2018 Appointment: Jalyn Daily WPtel: [phone] [facility] 03/26/2018 Patient Education: Patient [...] ICD-10 : R31.9 03/15/2018 Appointment: Bhavna Escalante [address] [place], [place] [id number] 03/15/2018 Patient Education: Patient Medication Summary Completed 03/15/2018 Visit Diagnosis Plan: Primary insomnia Discussion: Tri al of elavil 10mg po q HS ICD-9 : 780.52 ICD-10 : F51.01 02/26/2018 Visit Diagnosis Plan: Functional dyspepsia Discussion: Increase protonix to 40mg po BID Follow Up: 1 months ICD-9 : 536.8 ICD-10 : K30 02/26/2018 Appointment: Jalyn Daily WPtel: [phone] [facility] WELCOME TO MEDICARE 02/26/2018 Patient Education: Patient Medication Summary Completed 02/26/2018 Referral: Song Noonan WPtel: [phone] [facility] [place] Referral Initiated 02/19/2018 Appointment: Jalyn Daily WPtel: [phone] [facility] [place] LAB 02/06/2018 Patient Education: Patient Medication Summary Completed 02/06/2018 Appointment: Jalyn Daily WPtel: [phone] [place] CANC[facility]ED 02/01/2018 Care Plan: US EXAM ABDOM COMPLETE liver LOINC : 54544-5 Pending 01/31/2018 Visit Diagnosis Plan: Essential (primary) [...] ICD-10 : R53.83 01/30/2018 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 Discussion: instructed [...] ICD-10 : G47.09 01/30/2018 Appointment: Bhavna Escalante [address] [place], [place] [phone] 01/30/2018 Patient Education: Patient Medication Summary Completed 01/30/2018 Instructions No Instructions Medical Equipment No Medical Equipment data Health Concerns Section Health Concerns data not found Goals Section Goals data not found Interventions Section Interventions data not found Health Status Evaluations/Outcomes Section Health Status Evaluations/Outcomes data not found Advance Directives No Advance Directive data
--- OUTSIDE RECORDS SUMMARY | 2020-02-10 14:03 | XMS REPORT | CCD ---
Author Author Riana Escalante Organization JALYN SRuben DAILY DO [facility] Address [address] [place] [address] Phone Unavailable Care Team Providers Care Manager Mba Name Role Phone PP Unavailable CCM Unavailable Summary Purpose Interface Exchange Insurance Providers Payer name Policy type / Coverage type Covered green party ID Effective Begin Date Effective End Date WPS MEDICARE PART B [place] Medicare Part B [id number] 2017 Unknown Cigna Medicare Part B [id number] 2017 Unknown Family History Family History data not found Social History Social History Element Codes Description Effective Dates Tobacco history SNOMED CT: 872351396 Never smoker 01/30/[address]: 470978858 Never drinks alcohol 2017 Allergies, Adverse Reactions, [...] hypertension ICD-9: 401.9 ICD-10: I10 01/30/2018 Active skilled nursing (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 ICD-9: V58.6 1 [...] Fill Instructions Colace 100 mg capsule RxNorm: 7722518 1 Capsule(s) Oral three ti mes a day 11/19/2019 12/19/2019 Active warfarin 5 mg tablet RxNorm: 852907 1 Tablet(s) Oral MW F and 1/2 tablet (2.5mg) , [facility] [place] 09/30/2019 12/29/2019 Active levothyroxine 25 mcg tablet RxNorm: 042412 TAKE ONE TABLET BY M OUTH DAILY 09/30/2019 No Stop Date Active potassium chloride ER 10 mEq capsule,extended release RxNorm : 492124 1 Capsule(s) Oral two times a day on and 1 capsule 09/26/2019 09/26/2019 Inactive vancomycin 125 mg capsule RxNorm: 834522 2 Capsule(s) Oral Q8H 08/0909/05/2019 Inactive warfarin 5 mg tablet RxNorm: 148806 1 Tablet(s) Oral MW F and 1/2 tablet (2.5mg) , Sun & Sun08/26/2019 09/29/2019 Inactive Colace 100 mg capsule RxNorm: 8440116 1 Capsule(s) Oral QD 08/26/19 20 11/18/2019 Inactive levothyroxine 25 mcg tablet RxNorm: 827729 1 Tablet(s) PO QD 201909/29/2019 Inactive spironolactone 25 mg tablet RxNorm: 834645 TAKE 1 TABLET BY DOUGLAS TH TWICE DAILY 06/22/2019 09/19/2019 Inactive losartan 25 mg tablet RxNorm: 024241 TAKE 1 TABLET BY M OUTH ONCE DAILY IN THE MORNING 05/26/2019 No Stop Date Active bumetanide 1 mg tablet RxNorm: 628778 TAKE 1 TABLET BY MOUTH TWICE DAILY AT 6AM AND 6PM 05/23/2019 No Stop Date Active vancomycin 125 mg capsule RxNorm: 716175 1 Capsule(s) Oral Q3D 04/1008/25/2019 Inactive pantoprazole 40 mg tablet,delayed release RxNorm: 006581 1-2 Ta blet(s) Oral QD 04/23/2019 05/23/2019 Inactive potassium chloride ER 10 mEq capsule,extended release RxNorm : 924744 1 Capsule(s) Oral QD 04/23/2019 09/25/2019 Inactive warfarin 5 mg tablet RxNorm: 994946 Tablet(s) Oral Take 1 tablet (5mg) by mouth on and Sun then 1/2 tablet (2.5mg) on Sun, Sun, Th, Sat and Sun 04/23/2019 08/25/2019 Inactive temazepam 15 mg capsule RxNorm: 125014 TAKE 1 TO 2 CAPS ULES BY MOUTH AT BEDTIME NEEDED FOR SLEEP 04/08/2019 09/25/2019 Inactive Cipro 250 mg tablet RxNorm: 096991 1 Tablet(s) Oral two times a day 03/27/2019 04/03/2019 Inactive metronidazole 500 mg tablet RxNorm: 934102 1 Tablet(s) Oral thr ee times a day 03/27/2019 04/03/2019 Inactive bumetanide 1 mg tablet RxNorm: 982965 1 Tablet(s) PO BID (6am a nd 6pm) 02/13/2019 05/13/2019 Inactive levothyroxine 25 mcg tablet RxNorm: 294579 1 Tablet(s) PO QD 201807/13/2019 Inactive warfarin 5 mg tablet RxNorm: 300752 1 TABLET(S) PO , SUN, TH, SAT AND SUN AND 1/2 TABLET ON 02/04/2019 02/11/2019 Inactive Kendra ent requests 90 days supply warfarin 5 mg tablet RxNorm: 672990 1 TABLET(S) PO TUES , WED, THURS, SAT AND SUN AND 1/2 TABLET ON 02/03/2019 02/03/2019 Inactive Kendra ent requests 90 days supply levothyroxine 25 mcg tablet RxNorm: 730861 1 Tablet(s) PO QD 201802/03/2019 Inactive warfarin 5 mg tablet RxNorm: 777703 1 Tablet(s) PO Tues , Wed, Thurs, Sat and Sun and 1/2 tablet on 01/31/2019 02/02/2019 Inactive temazepam 15 mg capsule RxNorm: 606602 TAKE 1 TO 2 CAPS ULES BY MOUTH AT BEDTIME NEEDED FOR SLEEP 01/31/2019 04/07/2019 Inactive cyclobenzaprine 10 mg tablet RxNorm: 016204 1 Tablet(s) PO Q8H as needed 12/30/2018 09/25/2019 Inactive losartan 25 mg tablet RxNorm: 446677 1 Tablet(s) PO QAM 12/27/2018 Inactive Lidoderm 5 % topical patch RxNorm: 1115450 1 Application TOP Q12H and then off for 12 hours 12/25/2018 01/23/2019 Inactive Lidoderm 5 % topical patch RxNorm: 6593137 1 Application TOP Q12H and then off for 12 hours 12/25/2018 12/24/2018 Inactive cyclobenzaprine 5 mg tablet RxNorm: 426780 1 Tablet(s) PO Q8H a s needed 12/12/2018 12/24/2018 Inactive spironolactone 25 mg tablet RxNorm: 525169 1 Tablet(s) PO BID 09/2006/16/2019 Inactive change in directions to BID pantoprazole 40 mg tablet,delayed release RxNorm: 782439 1 Tabl et(s) PO QD 09/20/2018 04/22/2019 Inactive Patient requests 9 0 days supply spironolactone 25 mg tablet RxNorm: 698036 1 Tablet(s) PO BID 08/2609/19/2018 Inactive change in directions to BID pantoprazole 40 mg tablet,delayed release RxNorm: 304130 1 Tabl et(s) PO QD 08/15/2018 09/19/2018 Inactive Patient requests 9 0 days supply carvedilol 6.25 mg tablet RxNorm: 586317 1 Tablet(s) PO BID 019 02/08/2019 Inactive pantoprazole 40 mg tablet,delayed release RxNorm: 190934 1 Tablet(s) PO QD 1 TABLET(S) PO BID 08/13/2018 08/15/2018 Inactive Patient reque sts 90 days supply bumetanide 1 mg tablet RxNorm: 619686 1 Tablet(s) PO BID (6am a nd 6pm) 08/13/2018 02/08/2019 Inactive bumetanide 0.5 mg tablet RxNorm: 610331 1 Tablet(s) PO QPM three days a week--Sunday, Sun, Sunday instead of 1mg dose in evening 08/13/201812/2018 Inactive levothyroxine 25 mcg tablet RxNorm: 933114 1 Tablet(s) PO QD 201801/30/2019 Inactive spironolactone 25 mg tablet RxNorm: 235122 1 Tablet(s) PO QD 201808/25/2018 Inactive losartan 25 mg tablet RxNorm: 059084 1 Tablet(s) PO QAM 08/13/2018 Inactive warfarin 5 mg tablet RxNorm: 586308 1 Tablet(s) PO QD 08/13/201808/09 Inactive pantoprazole 40 mg tablet,delayed release RxNorm: 086174 1 TABL ET(S) PO BID 08/02/2018 08/12/2018 Inactive Patient requests 9 0 days supply temazepam 15 mg capsule RxNorm: 153416 1-2 Capsule(s) P O QHS as needed for sleep 2018 01/31/2019 Inactive Restoril 15 mg capsule RxNorm: 639135 1-2 Capsule(s) PO QHS as needed for sleep 06/04/2018 08/12/2018 Inactive potassium chloride ER 10 mEq capsule,extended release RxNorm : 888541 2 CAPSULE(S) PO QD 05/07/2018 08/04/2018 Inactive Patient reque sts 90 days supply temazepam 22.5 mg capsule RxNorm: 533911 1 Capsule(s) P O QHS as needed for sleep 05/06/2018 08/12/2018 Inactive potassium chloride ER 10 mEq capsule,extended release RxNorm : 881933 2 Capsule(s) PO QD 05/06/2018 05/06/2018 Inactive ropinirole 1 mg tablet RxNorm: 524159 1 TABLET(S) PO QHS FOR RE STLESS LEGS 03/27/2018 04/25/2018 Inactive Patient requests 9 0 days supply ropinirole 1 mg tablet RxNorm: 780158 1 Tablet(s) PO QHS for re stless legs 03/26/2018 03/26/2018 Inactive cefdinir 300 mg capsule RxNorm: 432138 1 Capsule(s) PO BID 03/26/20 18 03/30/2018 Inactive temazepam 15 mg capsule RxNorm: 920098 1 Capsule(s) PO QHS as neede d 03/20/2018 03/25/2018 Inactive Lunesta 3 mg tablet RxNorm: 678107 1 Tablet(s) PO QHS as needed for sleep 03/04/2018 03/19/2018 Inactive amitriptyline 10 mg tablet RxNorm: 110629 1 Tablet(s) PO QHS fo r sleep 02/26/2018 03/03/2018 Inactive escitalopram 20 mg tablet RxNorm: 164641 1 Tablet(s) PO QHS 018 08/12/2018 Inactive pantoprazole 40 mg tablet,delayed release RxNorm: 631007 1 Tabl et(s) PO BID 02/26/2018 04/26/2018 Inactive Coumadin 2.5 mg tablet RxNorm: 394615 1 Tablet(s) PO MWF 02/18/2018 0 07/22/2018 Inactive amiodarone 200 mg tablet RxNorm: 860561 1 Tablet(s) PO QD No Start Da te Active colestipol 1 gram tablet RxNorm: 4018993 1 Tablet(s) PO BID No Start Date Active pantoprazole 40 mg tablet,delayed release RxNorm: 282702 1 Tabl et(s) PO QD No Start Date Active pantoprazole 40 mg tablet,delayed release RxNorm: 807081 1 Tabl et(s) PO QD No Start Date 02/25/2018 Inactive bumetanide 1 mg tablet RxNorm: 281001 1 Tablet(s) PO BID (6am a nd 6pm) No Start Date 08/12/2018 Inactive potassium chloride ER 10 mEq tablet,extended release RxNorm: 979774 1 Tablet(s) PO QD No Start Date 02/11/2019 Inactive levothyroxine 25 mcg tablet RxNorm: 507957 1 Tablet(s) PO QD No Sta rt Date 08/12/2018 Inactive spironolactone 25 mg tablet RxNorm: 813263 1 Tablet(s) PO QD No Sta rt Date 08/12/2018 Inactive warfarin 5 mg tablet RxNorm: 654802 1 Tablet(s) PO MWF No Start Date 08/12/2018 Inactive warfarin 5 mg tablet RxNorm: 386798 1 Tablet(s) PO Tues , Wed, Th, Sat and Sun then 1/2 tablet (2.5mg) on Mon & Fri No Start Date 08/12/2018 Inactive losartan 25 mg tablet RxNorm: 589357 1 Tablet(s) PO QAM No Start Da te 08/12/2018 Inactive carvedilol 6.25 mg tablet RxNorm: 619992 1 Tablet(s) PO BID No Star t Date 08/12/2018 Inactive warfarin 2.5 mg tablet RxNorm: 532955 1 Tablet(s) PO Tues, Thur s, Sat and Sun No Start Date 08/12/2018 Inactive Coumadin 2.5 mg tablet RxNorm: 005670 Tablet(s) Sun and Sun PO No Start Date 02/17/2018 Inactive Children's Multivitamin with Iron tablet RxNorm: 1 Table t(s) PO QD No Start Date 04/22/2019 Inactive potassium chloride ER 20 mEq tablet,extended release(p art/cryst) RxNorm: 9150292 2 Tablet(s) PO QD No Start Date 05/05/2018 Inactive Coumadin 5 mg tablet RxNorm: 491685 Tablet(s) PO No Start Date 2017 Inactive mexiletine 200 mg capsule RxNorm: 7150250 1 Capsule(s) PO BID No St art Date 03/25/2018 Inactive ferrous sulfate 325 mg (65 mg iron) tablet RxNorm: 120506 1 Tab let(s) PO QD No Start Date 07/22/2018 Inactive cyclobenzaprine 10 mg tablet RxNorm: 910794 1 Tablet(s) PO Q8H as needed No Start Date 12/29/2018 Inactive potassium chloride ER 10 mEq capsule,extended release RxNorm : 532120 2 Capsule(s) PO QD No Start Date 12/11/2018 Inactive Coumadin 5 mg tablet RxNorm: 407667 1 Tablet(s) PO Tues, Th, Sat and Sun No Start Date 07/22/2018 Inactive Restoril 15 mg capsule RxNorm: 109381 1-2 Capsule(s) PO QHS as needed for sleep No Start Date 05/05/2018 Inactive metoprolol succinate ER 25 mg tablet,extended release 24 hr RxNorm: 792649 1 Tablet(s) PO QD No Start Date 08/12/2018 Inactive Entresto 24 mg-26 mg tablet RxNorm: 2226314 1 Tablet(s) PO BID No S tart Date 08/12/2018 Inactive warfarin 5 mg tablet RxNorm: 115765 1 Tablet(s) PO , Sun, , Sat and Sun and 1/2 tablet on Mon/Sun No Start Date 01/30/2019 Inactive amiodarone 200 mg tablet RxNorm: 475554 2 Tablet(s) PO BID No Start Date 10/09/2018 Inactive furosemide 20 mg tablet RxNorm: 453208 1 Tablet(s) PO QD No Start D ate 08/12/2018 Inactive amiodarone 200 mg tablet RxNorm: 731511 1 Tablet(s) PO BID No Start Date 08/26/2018 Inactive atorvastatin 40 mg tablet RxNorm: 714796 1 Tablet(s) PO QD No Start Date 08/12/2018 Inactive warfarin 5 mg tablet RxNorm: 437477 1/2 Tablet(s) PO on Sun, Sun, Sun, Sun then 1 tablet on Sun, , Sat No Start Date 04/22/2019 Inactive Medication Administered No Medication Administered data Immunizations Vaccine Codes Date Status Hepatitis A CVX: 83 11/20/2019 Pneumovax CVX: 33 05/14/2019 Hepatitis A CVX: 83 03/25/2019 Influenza CVX: 135 03/25/2019 Results Observation Observation Code Item Item Code Result Date S ervice Location UA W/MICR 23552 UA Urine Appear Normal 02/06/2018 Unk nown UA W/MICR 63149 UA Protein 3+ 02/06/2018 Unknown UA W/MICR 37883 UA Hemoglobin Trace 02/06/2018 Unkno wn UA W/MICR 02914 UA Glucose Negative 02/06/2018 Unknown UA W/MICR 58174 UA Ketones Negative 02/06/2018 Unknown UA W/MICR 29330 UA pH 5.5 02/06/2018 Unknown UA W/MICR 93534 U Spec Sharples 1.025 02/06/2018 Unkn own UA W/MICR 46615 UA Bilirubin Negative 02/06/2018 Unknow n UA W/MICR 20069 UA Leuk Esteras Trace 02/06/2018 Unk nown UA W/MICR 31407 UA Nitrite NEG 02/06/2018 Unknown UA W/MICR 07358 UA WBC/hpf 11-25 02/06/2018 Unknown UA W/MICR 63248 UA RBC hpf 0-5 02/06/2018 Unknown UA W/MICR 92522 UA Hyaline Cast 16-25 02/06/2018 Unk nown UA W/MICR 92074 UA Squam Epi Few 02/06/2018 Unknow n Procedures Procedure Codes Date URINALYSIS NONAUTO W/O SCOPE CPT-4: 92744 11/19/2019 INITIAL PREVENTIVE EXAM CPT-4: G0402 09/25/2019 URINALYSIS NONAUTO W/O SCOPE CPT-4: 74405 03/18/2019 URINE CULTURE/ COLONY COUNT CPT-4: 45629 03/18/2019 URINALYSIS NONAUTO W/O SCOPE CPT-4: 59244 12/12/2018 URINE CULTURE/ COLONY COUNT CPT-4: 00459 03/26/2018 URINALYSIS NONAUTO W/O SCOPE CPT-4: 23848 03/15/2018 INITIAL PREVENTIVE EXAM CPT-4: G0402 02/26/2018 URINALYSIS NONAUTO W/O SCOPE CPT-4: 53270 02/06/2018 URINE CULTURE/ COLONY COUNT CPT-4: 61653 02/06/2018 UA W/MICR CPT-4: 34708 02/06/2018 CUR TOBACCO NON-USER CPT-4: G8457 01/30/2018 REPAIR BLADDER & VAGINA CPT-4: 00826 01/06/2017 REPAIR OF RECTOCELE CPT-4: 46371 01/06/2017 BREAST SURGERY PROCEDURE CPT-4: 43818 Unknown LAPARO CHOLECYSTECTOMY/EXPLR CPT-4: 65074 Unknown HYSTERECTOMY/REVISE VAGINA CPT-4: 10618 Unknown Vital Signs Date Vital 11/24/2019 Blood [...] 1: 106/58 Code: 8480-6 BMI: 26.3 Code: 86416-1 Heart Rate 1: 72 bpm Height: 4'10" Respiratory Rate: 20 bpm SpO2: 97% Tempera ture: 36.6 (C) / 97.8 (F) Weight: 128 lbs 07/10/2018 Blood Pressure 1: 122/70 Code: 8480-6 BMI: 28.6 Code: 06090-3 Heart Rate 1: 80 bpm Height: 4'10" Respiratory Rate: 20 bpm SpO2: 96% Tempera ture: 36.9 (C) / 98.4 (F) Weight: 139 lbs 05/06/2018 Blood Pressure 1: 112/54 Code: 8480-6 BMI: 27.5 Code: 98216-0 Heart Rate 1: 80 bpm Height: 4'10" [...] 1: 146/80 Code: 8480-6 BMI: 30.0 Code: 43290-0 Heart Rate 1: 76 bpm Height: 4'10" Respiratory Rate: 20 bpm SpO2: 97% Tempera ture: 36.7 (C) / 98.1 (F) Weight: 146 lbs 02/26/2018 Blood Pressure 1: 126/80 Code: 8480-6 BMI: 29.6 Code: 51887-0 Heart Rate 1: 80 bpm Height: 4'10" Respiratory Rate: 18 bpm SpO2: 96% Tempera ture: 37.0 (C) / 98.6 (F) Weight: 144 lbs 01/30/2018 Blood Pressure 1: 120/78 Code: 8480-6 BMI: 29.6 Code: 33754-1 Heart Rate 1: 84 bpm Height: 4'10" Respiratory Rate: 20 bpm SpO2: 97% Tempera ture: 36.0 (C) / 96.8 (F) Weight: 144 lbs Functional Status No Functional Status data Reason For Visit Reason For Visit Effective Dates Notes follow up 11/24/2019 dizziness 11/19/2019 Annual Checkup 09/25/2019 pt labs are scanned into chart abdominal pain 08/26/2019 follow up 05/07/2019 follow up 04/23/2019 [facility] fwup abdominal pain 03/27/2019 left lower quadrant [...] up 07/10/2018 Hospital/ER fwup follow up 05/06/2018 [facility] fwup abdominal pain 04/17/2018 follow up 03/26/2018 dizziness 03/15/2018 Patient had bladder biopsy on Sunday by Dr Noonan. states she has been holding her coumadin since Sunday insomnia 02/26/2018 blood in urine 02/06/2018 ~generic 01/30/2018 Establishing Care Encounters Encounter Performer Location Codes Date ([id number]) OFFICE/OUTPATIENT VISIT EST Diagnosis: Hypotension[ICD10: I95.9] Diagnosis: Chronic kidney disease[ICD10: N18.9] Jalny Leigh BULLAUGIEANIBAL [facility] CPT-4: 95422 11/24/2019 ([id number]) OFFICE/OUTPATIENT VISIT EST Diagnosis: Hypotension[ICD10: I95.9] Diagnosis: Dizziness and giddiness[ICD10: R42] Diagnosis: Polyuria[ICD10: R35.8] Jalyn Landeros [facility] CPT-4: 38033 11/19/2019 ([id number]) OFFICE/OUTPATIENT VISIT EST Diagnosis: Sigmoid diverticulitis[ICD10: K57.32] Jalyn Leigh BULLROSS [facility] CPT-4: 45347 08/26/2019 ([id number]) OFFICE/OUTPATIENT VISIT EST Diagnosis: Clostridium difficile colitis[ICD10: A04.72] Jalyn Leigh BULLROSS [place] [facility] CPT-4: 31241 05/07/2019 ([id number]) OFFICE/OUTPATIENT VISIT EST Diagnosis: Clostridium difficile colitis[ICD10: A04.72] Diagnosis: Edema[ICD10: R60.9] Jalyn Leigh BULLROSS [place] [facility] CPT-4: 08734 04/23/2019 ([id number]) OFFICE/OUTPATIENT VISIT EST Diagnosis: Constipation[ICD10: K59.00] Diagnosis: Left lower quadrant pain[ICD10: R10.32] Bhavna Ava Leigh BULLNDER [place] [facility] CPT-4: 05163 03/27/2019 ([id number]) OFFICE/OUTPATIENT VISIT EST Diagnosis: Acute kidney failure, unspecified[ICD10: N17.9] Jalyn Leigh BULLROSS [place] [facility] CPT-4: 88145 03/18/2019 ([id number]) OFFICE/OUTPATIENT VISIT EST Diagnosis: Essential (primary) hypertension[ICD10: I10] Diagnosis: Chronic atrial fibrillation[ICD10: I48.2] Diagnosis: Mixed hyperlipidemia[ICD10: E78.2] Diagnosis: Other fatigue[ICD10: R53.83] Diagnosis: Abdominal distension (gaseous)[ICD10: R14.0] Jalyn DAILY [place] [facility] CPT-4: 77165 02/12/2019 ([id number]) OFFICE/OUTPATIENT VISIT EST Diagnosis: Low back pain[ICD10: M54.5] Bhavna DOUGHERTY S. Michelle RENDER [place] [facility] CPT-4: 17099 12/25/2018 ([id number]) OFFICE/OUTPATIENT VISIT EST Diagnosis: Low back pain[ICD10: M54.5] Bhavna DOUGHERTY S. O RENDER [place] [facility] CPT-4: 75025 12/12/2018 ([id number]) OFFICE/OUTPATIENT VISIT EST Diagnosis: Anemia, unspecified[ICD10: D64.9] Diagnosis: Chronic atrial fibrillation[ICD10: I48.2] Diagnosis: Other fatigue[ICD10: R53.83] Jalyn DAILY [place] [facility] CPT-4: 51655 10/10/2018 ([id number]) OFFICE/OUTPATIENT VISIT EST Diagnosis: Acute on chronic combined systolic (congestive) and diastolic (congestive) heart failure[ICD10: I50.43] Diagnosis: Chronic atrial fibrillation[ICD10: I48.2] Jalyn DAILY [place] [facility] CPT-4: 28490 08/27/2018 ([id number]) OFFICE/OUTPATIENT VISIT EST Diagnosis: Chronic atrial fibrillation[ICD10: I48.2] 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] Diagnosis: skilled nursing (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[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] Jalyn DAILY [place] [facility] CPT-4: 67857 08/13/2018 ([id number]) OFFICE/OUTPATIENT VISIT EST Diagnosis: Acute on chronic combined systolic (congestive) and diastolic (congestive) heart failure[ICD10: I50.43] Diagnosis: Essential (primary) hypertension[ICD10: I10] Diagnosis: Anemia, unspecified[ICD10: D64.9] Jalyn DAILY DO [facility] CPT-4: 54172 07/10/2018 ([id number]) OFFICE/OUTPATIENT VISIT EST Diagnosis: Chronic atrial fibrillation[ICD10: I48.2] Diagnosis: Acute on chronic combined systolic (congestive) and diastolic (congestive) heart failure[ICD10: I50.43] Diagnosis: Localized edema[ICD10: R60.0] Jalyn DAILY [place] [facility] CPT-4: 88117 05/06/2018 ([id number]) OFFICE/OUTPATIENT VISIT EST Diagnosis: Generalized abdominal pain[ICD10: R10.84] Diagnosis: Pelvic and perineal pain[ICD10: R10.2] Diagnosis: Localized edema[ICD10: R60.0] Bhavna DAILY [place] [facility] CPT-4: 87174 04/17/2018 ([id number]) OFFICE/OUTPATIENT VISIT EST Diagnosis: Urinary tract infection, site not specified[ICD10: N39.0] Diagnosis: Other insomnia[ICD10: G47.09] Diagnosis: Other fatigue[ICD10: R53.83] Diagnosis: Other forms of dyspnea[ICD10: R06.09] Diagnosis: Chronic atrial fibrillation[ICD10: I48.2] Diagnosis: Restless legs syndrome[ICD10: G25.81] Jalyn Bullaugieanibal DAILY [place] [facility] CPT-4: 20760 03/26/2018 ([id number]) OFFICE/OUTPATIENT VISIT EST Diagnosis: Altered mental status, unspecified[ICD10: R41.82] Diagnosis: skilled nursing (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[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] Diagnosis: Hematuria, unspecified[ICD10: R31.9] Bhavna DAILY [place] [facility] CPT-4: 84860 03/15/2018 ([id number]) NURSE/OUTPATIENT VISIT EST Diagnosis: Urinary tract infection, site not specified[ICD10: N39.0] Jalyn Abimbola DAILY [facility] CPT-4: 34112 02/06/2018 OFFICE/OUTPATIENT VISIT NEW Diagnosis: skilled nursing (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[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] Diagnosis: Essential (primary) hypertension[ICD10: I10] Diagnosis: Mixed hyperlipidemia[ICD10: E78.2] Diagnosis: Other fatigue[ICD10: R53.83] Diagnosis: Cardiac arrhythmia, unspecified[ICD10: I49.9] Diagnosis: Generalized abdominal pain[ICD10: R10.84] Diagnosis: Urinary tract infection, site not specified[ICD10: N39.0] Diagnosis: Other insomnia[ICD10: G47.09] Bhavna Escalante JALYN DAILY [facility] CPT-4: 78551 01/30/2018 Plan of Care Planned Activity Notes [...] R42 11/19/2019 Appointment: [facility] [phone] [id number] [facility] 11/19/2019 Patient Education: Colace- OptimizeRX Coupon [id number] https://www.[employer]/sampleDoremir Music Research/resources/getResource/61/37p3n7b6-i63z-5pa8-25 Completed 11/19/2019 Visit Diagnosis Plan: Encounter for [facility] adult medical examination with abnormal [...] : I10 09/25/2019 Appointment: Jalyn Daily WPtel: [address] [place], [place] [phone] Annual Well Visit 09/25/2019 Care Plan: COMPREH[place]AB[place] : 614[address]-8 Pending 09/22/2019 Care Plan: COMPLETE CBC W/AUTO DIFF WBC LOINC : 34766-1 Pending 09/22/2019 Appointment: Bhavna Escalante [address] [facility] [place] pt. feeling better and still [...] : K57.32 08/26/2019 Appointment: Jalyn Daily WPtel: [address] [place], [place] [id number] ACUTE ILLNESS 08/26/2019 Appointment: Jalyn Daily WPtel: [address] [place], [place] [id number] originally 4 mo follow up CANCELED 2018 Visit Diagnosis Plan: Clostridium difficile colitis Di scussion: Vancomycin daily for another week then 125mg every 3 days for 1 month then stop Fwup in September ICD-9 : 008.45 ICD-10 : A04.72 05/07/2019 Appointment: Jalyn Daily WPtel: [address] [place] [address] FOLLOW UP 05/07/2019 Visit Diagnosis Plan: Edema [...] : A04.72 04/23/2019 Appointment: Jalyn Daily WPtel: [address] [place] [address] Hospital Follow Up 04/23/2019 Appointment: Bhavna Escalante [address] [place] [address] CANCELED 04/15/2019 Visit Diagnosis Plan: Left lower quadrant pain Discuss ion: will start with abdominal xray to rule out acute obstruction/constipation. if no acute findings, will treat as diverticulitis due to patient's past history. ICD-9 : 789.04 ICD-10 : R10.32 03/27/2019 Appointment: Bhavna Escalante [address] [place] [address] ACUTE ILLNESS 03/27/2019 Visit Diagnosis Plan: Acute kidney failure, unspecifie d Discussion: Was given Meloxicam at urgent care--discussed no NSAIDs, hydrate, repeat Chem 7 in 1 week ICD-9 : 584.9 ICD-10 : N17.9 03/18/2019 Appointment: Jalyn Daily WPtel: [address] [place] [address] ACUTE ILLNESS 03/18/2019 Visit Diagnosis Plan: Abdominal [...] Appointment: Jalyn Daily WPtel: [phone] [id number] [place] FOLLOW UP 02/12/2019 Appointment: Bhavna Escalante [address] [place], [place] [phone] [place] Canceled per guillermina. sending for mri [...] ICD-10 : M54.5 12/25/2018 Appointment: Bhavna Escalante [address] [place], [place] [phone] ACUTE ILLNESS 12/25/2018 Visit Diagnosis Plan: Low [...] ICD-10 : M54.5 12/12/2018 Appointment: Bhavna Escalante [address] [place], [place] [phone] ACUTE ILLNESS 12/12/2018 Patient Education: cyclobenzaprine- OptimizeRX Coupon [id number] https://www.Inkomerce.[employer]/samplemd/resources/getResource/61/fh3481k9-[email or web address]-h5 Completed 12/12/2018 Appointment: Bhavna Escalante [address] [place], [place] [phone] [place] CANCELED 12/06/2018 Visit Diagnosis Plan: Chronic atrial fibrillation Disc ussion: Cardiology monitoring PT/INR Follow Up: 4 months ICD-9 : 427.31 ICD-10 : I48.2 10/10/2018 Visit Diagnosis Plan: Anemia, unspecified Discussion: Update CBC ICD-9 : 285.9 ICD-10 : D64.9 10/10/2018 Visit Diagnosis Plan: Other fatigue Discussion: Increa se activity--discussed 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 ICD-9 : 780.79 ICD-10 : R53.83 10/10/2018 Appointment: Jalyn Dailytel: [address] [place], [place] [phone] US FOLLOW UP 10/10/2018 Visit Diagnosis Plan: [...] : I50.43 08/27/2018 Appointment: Jalyn Daily WPtel: [address] [place], [place] [phone] US FOLLOW UP 08/27/2018 Visit Diagnosis Plan: [...] ICD-10 : I48.2 08/13/2018 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 Discussion: Increase Coumadin to 5mg po daily and repeat PT/INR in 2 weeks ICD-9 : V58.61 ICD-10 : Z79.01 08/13/2018 Appointment: Jalyn Daily WPtel: [address] [place], [place] [phone] FOLLOW UP 08/13/2018 Patient Education: bumetanide- OptimizeRX Coupon [id number] https://www.[employer]/Inkomerce/resources/getResGlobal BioDiagnostics/61/[email or web address]-of Completed 08/13/2018 Patient Education: levothyroxine- OptimizeRX Coupon [phone] https://www.[employer]/Inkomerce/resources/getResource/61/1227178k-5730-7j10-pb Completed 08/13/2018 Patient Education: warfarin- OptimizeRX Coupon [id number] https://www.[employer]/Inkomerce/resources/Talent WorldResGlobal [employer]/[id number] Completed 08/13/2018 Patient Education: pantoprazole- [employer] Coupon [phone] https://www.[employer]/resources/Talent WorldResource/61/[email or web address]-4e Completed 08/13/2018 Patient Education: spironolactone- [employer] Coupon [phone] https://www.[employer]/resources/getResource/61/0uf124b7-h779-0126-cc Completed 08/13/2018 Visit Diagnosis Plan: Anemia, unspecified [...] I50.43 07/10/2018 Appointment: [phone] [facility] [address] FOLLOW UP 07/10/2018 Visit Diagnosis Plan: [...] : I48.2 05/06/2018 Appointment: Jalyn Daily WPtel: [address] [place] [address] [place] FOLLOW UP 05/06/2018 Visit Diagnosis Plan: [...] ICD-10 : R10.2 04/17/2018 Appointment: Bhavna Escalante [address] [place] [address] ACUTE ILLNESS 04/17/2018 Patient Education: Patient Medication Summary Completed 04/17/2018 Care Plan: CT ABDOMEN W/O & W/DYE LOINC : 47334-8 Pending 04/17/2018 Care Plan: CT PELVIS W/O & W/DYE LOINC : 93169-4 Pending 04/17/2018 Appointment: Jalyn Daily WPtel: [address] [place], [place] [phone] [place] CANCELED 04/10/2018 Visit Diagnosis Plan: Urinary [...] : R06.03/26/2018 Appointment: Jalyn Daily WPtel: [phone] [facility] ER Follow UP 03/26/2018 Patient Education: [...] ICD-10 : R41.82 03/15/2018 Appointment: Bhavna Escalante [address] [place], [place] [id number] ACUTE ILLNESS 03/15/2018 Patient Education: Patient Medication Summary Completed 03/15/2018 Visit Diagnosis Plan: Primary insomnia Discussion: Tri al of elavil 10mg po q HS ICD-9 : 780.52 ICD-10 : F51.01 02/26/2018 Visit Diagnosis Plan: Functional dyspepsia Discussion: Increase protonix to 40mg po BID Follow Up: 1 months ICD-9 : 536.8 ICD-10 : K30 02/26/2018 Appointment: Jalyn Daily WPtel: [phone] [facility] WELCOME TO MEDICARE 02/26/2018 Patient Education: Patient Medication Summary Completed 02/26/2018 Referral: Song Noonan WPtel: [phone] [facility] [place] Referral Initiated 02/19/2018 Appointment: Jalyn Daily WPtel: [phone] [facility] [place] LAB 02/06/2018 Patient Education: Patient Medication Summary Completed 02/06/2018 App[facility]ment: [phone] [place] CANC[facility] 02/01/2018 Care Plan: US EXAM ABDOM COMPLETE liver LOINC : 71496-6 Pending 01/31/2018 Visit Diagnosis Plan: Other fatigue Discussion: will o rder fasting blood work to assess for any anemia or infection especially due to recent surgery and bleeding risks. ICD-9 : 780.79 ICD-10 : R53.83 01/30/2018 Visit Diagnosis Plan: skilled nursing (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 Discussion: instructed [...] ICD-10 : I10 01/30/2018 Appointment: Bhavna Escalante [address] [place], [place] [address] NEW PATIENT 01/30/2018 Patient Education: Patient Medication Summary Completed 01/30/2018 Instructions No Instructions Medical Equipment No Medical Equipment data Health Concerns Section Health Concerns data not found Goals Section Goals data not found Interventions Section Interventions data not found Health Status Evaluations/Outcomes Section Health Status Evaluations/Outcomes data not found Advance Directives No Advance Directive data
--- OUTSIDE RECORDS SUMMARY | 2020-02-10 14:03 | XMS REPORT | CCD ---
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 Name Role Phone PP Unavailable CCM Unavailable Summary Purpose Interface Exchange Insurance Providers Payer name Policy type / Coverage type Covered democrat ID Effective Begin Date Effective End Date WPS MEDICARE PART B [place] Medicare Part B [id number] 2017 Unknown Cigna Medicare Part B [id number] 2017 Unknown Family History Family History data not found Social History Social History Element Codes Description Effective Dates Tobacco history SNOMED CT: 843399912 Never smoker 01/30/[address]: 752457066 Never drinks alcohol 2017 Allergies, Adverse Reactions, [...] Fill Instructions Colace 100 mg capsule RxNorm: 9211791 1 Capsule(s) Oral three ti mes a day 11/19/2019 12/19/2019 Active warfarin 5 mg tablet RxNorm: 758138 1 Tablet(s) Oral MW F and 1/2 tablet (2.5mg) , [facility] [place] 09/30/2019 12/29/2019 Active levothyroxine 25 mcg tablet RxNorm: 465234 TAKE ONE TABLET BY M OUTH DAILY 09/30/2019 No Stop Date Active potassium chloride ER 10 mEq capsule,extended release RxNorm : 043686 1 Capsule(s) Oral two times a day on and 1 capsule 09/26/2019 09/26/2019 Inactive vancomycin 125 mg capsule RxNorm: 448119 2 Capsule(s) Oral Q8H 08/0909/05/2019 Inactive warfarin 5 mg tablet RxNorm: 286860 1 Tablet(s) Oral MW F and 1/2 tablet (2.5mg) , Sun & Sun08/26/2019 09/29/2019 Inactive Colace 100 mg capsule RxNorm: 6338398 1 Capsule(s) Oral QD 08/26/19 20 11/18/2019 Inactive levothyroxine 25 mcg tablet RxNorm: 832071 1 Tablet(s) PO QD 201909/29/2019 Inactive spironolactone 25 mg tablet RxNorm: 314204 TAKE 1 TABLET BY DOUGLAS TH TWICE DAILY 06/22/2019 09/19/2019 Inactive losartan 25 mg tablet RxNorm: 625635 TAKE 1 TABLET BY M OUTH ONCE DAILY IN THE MORNING 05/26/2019 No Stop Date Active bumetanide 1 mg tablet RxNorm: 456915 TAKE 1 TABLET BY MOUTH TWICE DAILY AT 6AM AND 6PM 05/23/2019 No Stop Date Active vancomycin 125 mg capsule RxNorm: 638008 1 Capsule(s) Oral Q3D 04/1008/25/2019 Inactive pantoprazole 40 mg tablet,delayed release RxNorm: 287942 1-2 Ta blet(s) Oral QD 04/23/2019 05/23/2019 Inactive potassium chloride ER 10 mEq capsule,extended release RxNorm : 618148 1 Capsule(s) Oral QD 04/23/2019 09/25/2019 Inactive warfarin 5 mg tablet RxNorm: 291642 Tablet(s) Oral Take 1 tablet (5mg) by mouth on and Sun then 1/2 tablet (2.5mg) on Sun, Sun, Th, Sat and Sun 04/23/2019 08/25/2019 Inactive temazepam 15 mg capsule RxNorm: 467083 TAKE 1 TO 2 CAPS ULES BY MOUTH AT BEDTIME NEEDED FOR SLEEP 04/08/2019 09/25/2019 Inactive Cipro 250 mg tablet RxNorm: 125802 1 Tablet(s) Oral two times a day 03/27/2019 04/03/2019 Inactive metronidazole 500 mg tablet RxNorm: 208939 1 Tablet(s) Oral thr ee times a day 03/27/2019 04/03/2019 Inactive bumetanide 1 mg tablet RxNorm: 524040 1 Tablet(s) PO BID (6am a nd 6pm) 02/13/2019 05/13/2019 Inactive levothyroxine 25 mcg tablet RxNorm: 973549 1 Tablet(s) PO QD 201807/13/2019 Inactive warfarin 5 mg tablet RxNorm: 877830 1 TABLET(S) PO , SUN, TH, SAT AND SUN AND 1/2 TABLET ON 02/04/2019 02/11/2019 Inactive Kendra ent requests 90 days supply warfarin 5 mg tablet RxNorm: 917988 1 TABLET(S) PO TUES , WED, THURS, SAT AND SUN AND 1/2 TABLET ON 02/03/2019 02/03/2019 Inactive Kendra ent requests 90 days supply levothyroxine 25 mcg tablet RxNorm: 002084 1 Tablet(s) PO QD 201802/03/2019 Inactive warfarin 5 mg tablet RxNorm: 740350 1 Tablet(s) PO Tues , Wed, Thurs, Sat and Sun and 1/2 tablet on 01/31/2019 02/02/2019 Inactive temazepam 15 mg capsule RxNorm: 270224 TAKE 1 TO 2 CAPS ULES BY MOUTH AT BEDTIME NEEDED FOR SLEEP 01/31/2019 04/07/2019 Inactive cyclobenzaprine 10 mg tablet RxNorm: 301137 1 Tablet(s) PO Q8H as needed 12/30/2018 09/25/2019 Inactive losartan 25 mg tablet RxNorm: 437300 1 Tablet(s) PO QAM 12/27/2018 Inactive Lidoderm 5 % topical patch RxNorm: 3495902 1 Application TOP Q12H and then off for 12 hours 12/25/2018 01/23/2019 Inactive Lidoderm 5 % topical patch RxNorm: 2661317 1 Application TOP Q12H and then off for 12 hours 12/25/2018 12/24/2018 Inactive cyclobenzaprine 5 mg tablet RxNorm: 989377 1 Tablet(s) PO Q8H a s needed 12/12/2018 12/24/2018 Inactive spironolactone 25 mg tablet RxNorm: 255625 1 Tablet(s) PO BID 09/2006/16/2019 Inactive change in directions to BID pantoprazole 40 mg tablet,delayed release RxNorm: 777387 1 Tabl et(s) PO QD 09/20/2018 04/22/2019 Inactive Patient requests 9 0 days supply spironolactone 25 mg tablet RxNorm: 847671 1 Tablet(s) PO BID 08/2609/19/2018 Inactive change in directions to BID pantoprazole 40 mg tablet,delayed release RxNorm: 379279 1 Tabl et(s) PO QD 08/15/2018 09/19/2018 Inactive Patient requests 9 0 days supply carvedilol 6.25 mg tablet RxNorm: 927102 1 Tablet(s) PO BID 019 02/08/2019 Inactive pantoprazole 40 mg tablet,delayed release RxNorm: 914303 1 Tablet(s) PO QD 1 TABLET(S) PO BID 08/13/2018 08/15/2018 Inactive Patient reque sts 90 days supply bumetanide 1 mg tablet RxNorm: 068545 1 Tablet(s) PO BID (6am a nd 6pm) 08/13/2018 02/08/2019 Inactive bumetanide 0.5 mg tablet RxNorm: 541834 1 Tablet(s) PO QPM three days a week--Sunday, Sun, Sunday instead of 1mg dose in evening 08/13/201812/2018 Inactive levothyroxine 25 mcg tablet RxNorm: 593008 1 Tablet(s) PO QD 201801/30/2019 Inactive spironolactone 25 mg tablet RxNorm: 463001 1 Tablet(s) PO QD 201808/25/2018 Inactive losartan 25 mg tablet RxNorm: 454092 1 Tablet(s) PO QAM 08/13/2018 Inactive warfarin 5 mg tablet RxNorm: 129046 1 Tablet(s) PO QD 08/13/201808/09 Inactive pantoprazole 40 mg tablet,delayed release RxNorm: 806129 1 TABL ET(S) PO BID 08/02/2018 08/12/2018 Inactive Patient requests 9 0 days supply temazepam 15 mg capsule RxNorm: 350732 1-2 Capsule(s) P O QHS as needed for sleep 2018 01/31/2019 Inactive Restoril 15 mg capsule RxNorm: 096495 1-2 Capsule(s) PO QHS as needed for sleep 06/04/2018 08/12/2018 Inactive potassium chloride ER 10 mEq capsule,extended release RxNorm : 535827 2 CAPSULE(S) PO QD 05/07/2018 08/04/2018 Inactive Patient reque sts 90 days supply temazepam 22.5 mg capsule RxNorm: 504221 1 Capsule(s) P O QHS as needed for sleep 05/06/2018 08/12/2018 Inactive potassium chloride ER 10 mEq capsule,extended release RxNorm : 265610 2 Capsule(s) PO QD 05/06/2018 05/06/2018 Inactive ropinirole 1 mg tablet RxNorm: 009869 1 TABLET(S) PO QHS FOR RE STLESS LEGS 03/27/2018 04/25/2018 Inactive Patient requests 9 0 days supply ropinirole 1 mg tablet RxNorm: 338107 1 Tablet(s) PO QHS for re stless legs 03/26/2018 03/26/2018 Inactive cefdinir 300 mg capsule RxNorm: 209510 1 Capsule(s) PO BID 03/26/20 18 03/30/2018 Inactive temazepam 15 mg capsule RxNorm: 254202 1 Capsule(s) PO QHS as neede d 03/20/2018 03/25/2018 Inactive Lunesta 3 mg tablet RxNorm: 474052 1 Tablet(s) PO QHS as needed for sleep 03/04/2018 03/19/2018 Inactive amitriptyline 10 mg tablet RxNorm: 578660 1 Tablet(s) PO QHS fo r sleep 02/26/2018 03/03/2018 Inactive escitalopram 20 mg tablet RxNorm: 240653 1 Tablet(s) PO QHS 018 08/12/2018 Inactive pantoprazole 40 mg tablet,delayed release RxNorm: 296986 1 Tabl et(s) PO BID 02/26/2018 04/26/2018 Inactive Coumadin 2.5 mg tablet RxNorm: 467062 1 Tablet(s) PO MWF 02/18/2018 0 07/22/2018 Inactive amiodarone 200 mg tablet RxNorm: 464050 1 Tablet(s) PO QD No Start Da te Active colestipol 1 gram tablet RxNorm: 9544839 1 Tablet(s) PO BID No Start Date Active pantoprazole 40 mg tablet,delayed release RxNorm: 251200 1 Tabl et(s) PO QD No Start Date Active pantoprazole 40 mg tablet,delayed release RxNorm: 889502 1 Tabl et(s) PO QD No Start Date 02/25/2018 Inactive bumetanide 1 mg tablet RxNorm: 031568 1 Tablet(s) PO BID (6am a nd 6pm) No Start Date 08/12/2018 Inactive potassium chloride ER 10 mEq tablet,extended release RxNorm: 641448 1 Tablet(s) PO QD No Start Date 02/11/2019 Inactive levothyroxine 25 mcg tablet RxNorm: 547004 1 Tablet(s) PO QD No Sta rt Date 08/12/2018 Inactive spironolactone 25 mg tablet RxNorm: 985809 1 Tablet(s) PO QD No Sta rt Date 08/12/2018 Inactive warfarin 5 mg tablet RxNorm: 367604 1 Tablet(s) PO MWF No Start Date 08/12/2018 Inactive warfarin 5 mg tablet RxNorm: 897539 1 Tablet(s) PO Tues , Wed, Th, Sat and Sun then 1/2 tablet (2.5mg) on Mon & Fri No Start Date 08/12/2018 Inactive losartan 25 mg tablet RxNorm: 208093 1 Tablet(s) PO QAM No Start Da te 08/12/2018 Inactive carvedilol 6.25 mg tablet RxNorm: 113798 1 Tablet(s) PO BID No Star t Date 08/12/2018 Inactive warfarin 2.5 mg tablet RxNorm: 376046 1 Tablet(s) PO Tues, Thur s, Sat and Sun No Start Date 08/12/2018 Inactive Coumadin 2.5 mg tablet RxNorm: 899193 Tablet(s) Sun and Sun PO No Start Date 02/17/2018 Inactive Children's Multivitamin with Iron tablet RxNorm: 1 Table t(s) PO QD No Start Date 04/22/2019 Inactive potassium chloride ER 20 mEq tablet,extended release(p art/cryst) RxNorm: 2702916 2 Tablet(s) PO QD No Start Date 05/05/2018 Inactive Coumadin 5 mg tablet RxNorm: 306968 Tablet(s) PO No Start Date 2017 Inactive mexiletine 200 mg capsule RxNorm: 4414392 1 Capsule(s) PO BID No St art Date 03/25/2018 Inactive ferrous sulfate 325 mg (65 mg iron) tablet RxNorm: 611368 1 Tab let(s) PO QD No Start Date 07/22/2018 Inactive cyclobenzaprine 10 mg tablet RxNorm: 877883 1 Tablet(s) PO Q8H as needed No Start Date 12/29/2018 Inactive potassium chloride ER 10 mEq capsule,extended release RxNorm : 851451 2 Capsule(s) PO QD No Start Date 12/11/2018 Inactive Coumadin 5 mg tablet RxNorm: 724433 1 Tablet(s) PO Tues, Th, Sat and Sun No Start Date 07/22/2018 Inactive Restoril 15 mg capsule RxNorm: 954053 1-2 Capsule(s) PO QHS as needed for sleep No Start Date 05/05/2018 Inactive metoprolol succinate ER 25 mg tablet,extended release 24 hr RxNorm: 369632 1 Tablet(s) PO QD No Start Date 08/12/2018 Inactive Entresto 24 mg-26 mg tablet RxNorm: 5532497 1 Tablet(s) PO BID No S tart Date 08/12/2018 Inactive warfarin 5 mg tablet RxNorm: 775709 1 Tablet(s) PO , Sun, , Sat and Sun and 1/2 tablet on Mon/Sun No Start Date 01/30/2019 Inactive amiodarone 200 mg tablet RxNorm: 873083 2 Tablet(s) PO BID No Start Date 10/09/2018 Inactive furosemide 20 mg tablet RxNorm: 870633 1 Tablet(s) PO QD No Start D ate 08/12/2018 Inactive amiodarone 200 mg tablet RxNorm: 052997 1 Tablet(s) PO BID No Start Date 08/26/2018 Inactive atorvastatin 40 mg tablet RxNorm: 316163 1 Tablet(s) PO QD No Start Date 08/12/2018 Inactive warfarin 5 mg tablet RxNorm: 776629 1/2 Tablet(s) PO on Sun, Sun, Sun, Sun then 1 tablet on Sun, , Sat No Start Date 04/22/2019 Inactive Medication Administered No Medication Administered data Immunizations Vaccine Codes Date Status Hepatitis A CVX: 83 11/20/2019 Pneumovax CVX: 33 05/14/2019 Hepatitis A CVX: 83 03/25/2019 Influenza CVX: 135 03/25/2019 Results Observation Observation Code Item Item Code Result Date S ervice Location UA W/MICR 46977 UA Urine Appear Normal 02/06/2018 Unk nown UA W/MICR 85484 UA Protein 3+ 02/06/2018 Unknown UA W/MICR 81110 UA Hemoglobin Trace 02/06/2018 Unkno wn UA W/MICR 21485 UA Glucose Negative 02/06/2018 Unknown UA W/MICR 59997 UA Ketones Negative 02/06/2018 Unknown UA W/MICR 92738 UA pH 5.5 02/06/2018 Unknown UA W/MICR 39910 U Spec [place] 1.025 02/06/2018 Unkn own UA W/MICR 22456 UA Bilirubin Negative 02/06/2018 Unknow n UA W/MICR 58356 UA Leuk Esteras Trace 02/06/2018 Unk nown UA W/MICR 68273 UA Nitrite NEG 02/06/2018 Unknown UA W/MICR 24925 UA WBC/hpf 11-25 02/06/2018 Unknown UA W/MICR 64260 UA RBC hpf 0-5 02/06/2018 Unknown UA W/MICR 50982 UA Hyaline Cast 16-25 02/06/2018 Unk nown UA W/MICR 01973 UA Squam Epi Few 02/06/2018 Unknow n Procedures Procedure Codes Date URINALYSIS NONAUTO W/O SCOPE CPT-4: 21507 11/19/2019 INITIAL PREVENTIVE EXAM CPT-4: G0402 09/25/2019 URINALYSIS NONAUTO W/O SCOPE CPT-4: 62972 03/18/2019 URINE CULTURE/ COLONY COUNT CPT-4: 28479 03/18/2019 URINALYSIS NONAUTO W/O SCOPE CPT-4: 36481 12/12/2018 URINE CULTURE/ COLONY COUNT CPT-4: 41649 03/26/2018 URINALYSIS NONAUTO W/O SCOPE CPT-4: 36000 03/15/2018 INITIAL PREVENTIVE EXAM CPT-4: G0402 02/26/2018 URINALYSIS NONAUTO W/O SCOPE CPT-4: 99698 02/06/2018 URINE CULTURE/ COLONY COUNT CPT-4: 23838 02/06/2018 UA W/MICR CPT-4: 63733 02/06/2018 CUR TOBACCO NON-USER CPT-4: G8457 01/30/2018 REPAIR BLADDER & VAGINA CPT-4: 59110 01/06/2017 REPAIR OF RECTOCELE CPT-4: 73382 01/06/2017 BREAST SURGERY PROCEDURE CPT-4: 93614 Unknown LAPARO CHOLECYSTECTOMY/EXPLR CPT-4: 25873 Unknown HYSTERECTOMY/REVISE VAGINA CPT-4: 79151 Unknown Vital Signs Date Vital 11/24/2019 Blood [...] 1: 106/58 Code: 8480-6 BMI: 26.3 Code: 97005-8 Heart Rate 1: 72 bpm Height: 4'10" Respiratory Rate: 20 bpm SpO2: 97% Tempera ture: 36.6 (C) / 97.8 (F) Weight: 128 lbs 07/10/2018 Blood Pressure 1: 122/70 Code: 8480-6 BMI: 28.6 Code: 82316-2 Heart Rate 1: 80 bpm Height: 4'10" Respiratory Rate: 20 bpm SpO2: 96% Tempera ture: 36.9 (C) / 98.4 (F) Weight: 139 lbs 05/06/2018 Blood Pressure 1: 112/54 Code: 8480-6 BMI: 27.5 Code: 08012-0 Heart Rate 1: 80 bpm Height: 4'10" [...] 1: 146/80 Code: 8480-6 BMI: 30.0 Code: 97133-2 Heart Rate 1: 76 bpm Height: 4'10" Respiratory Rate: 20 bpm SpO2: 97% Tempera ture: 36.7 (C) / 98.1 (F) Weight: 146 lbs 02/26/2018 Blood Pressure 1: 126/80 Code: 8480-6 BMI: 29.6 Code: 18864-9 Heart Rate 1: 80 bpm Height: 4'10" Respiratory Rate: 18 bpm SpO2: 96% Tempera ture: 37.0 (C) / 98.6 (F) Weight: 144 lbs 01/30/2018 Blood Pressure 1: 120/78 Code: 8480-6 BMI: 29.6 Code: 13460-3 Heart Rate 1: 84 bpm Height: 4'10" Respiratory Rate: 20 bpm SpO2: 97% Tempera ture: 36.0 (C) / 96.8 (F) Weight: 144 lbs Functional Status No Functional Status data Reason For Visit Reason For Visit Effective Dates Notes follow up 11/24/2019 dizziness 11/19/2019 Annual Checkup 09/25/2019 pt labs are scanned into chart abdominal pain 08/26/2019 follow up 05/07/2019 follow up 04/23/2019 [facility] fwup abdominal pain 03/27/2019 left lower [...] up 07/10/2018 Hospital/ER fwup follow up 05/06/2018 [facility] fwup abdominal pain 04/17/2018 follow up 03/26/2018 dizziness 03/15/2018 Patient had bladder biopsy on Sunday by Dr Noonan. states she has been holding her coumadin since Sunday insomnia 02/26/2018 blood in urine 02/06/2018 ~generic 01/30/2018 Establishing Care Encounters Encounter Performer Location Codes Date ([id number]) OFFICE/OUTPATIENT VISIT EST Diagnosis: Hypotension[ICD10: I95.9] Diagnosis: Chronic kidney disease[ICD10: N18.9] Jalyn Leigh BULLAUGIEANIBAL [employer] CPT-4: 78887 11/24/2019 ([id number]) OFFICE/OUTPATIENT VISIT EST Diagnosis: Hypotension[ICD10: I95.9] Diagnosis: Dizziness and giddiness[ICD10: R42] Diagnosis: Polyuria[ICD10: R35.8] Jalyn Landeros [employer] CPT-4: 88847 11/19/2019 ([id number]) OFFICE/OUTPATIENT VISIT EST Diagnosis: Sigmoid diverticulitis[ICD10: K57.32] Jalyn Leigh BULLROSS [employer] CPT-4: 11070 08/26/2019 ([id number]) OFFICE/OUTPATIENT VISIT EST Diagnosis: Clostridium difficile colitis[ICD10: A04.72] Jalyn Leigh BULLROSS [employer] [facility] CPT-4: 17283 05/07/2019 ([id number]) OFFICE/OUTPATIENT VISIT EST Diagnosis: Clostridium difficile colitis[ICD10: A04.72] Diagnosis: Edema[ICD10: R60.9] Jalyn Leigh BULLROSS [employer] [facility] CPT-4: 37522 04/23/2019 ([id number]) OFFICE/OUTPATIENT VISIT EST Diagnosis: Constipation[ICD10: K59.00] Diagnosis: Left lower quadrant pain[ICD10: R10.32] Bhavna Ava Leigh BULLNDER [employer] [facility] CPT-4: 42353 03/27/2019 ([id number]) OFFICE/OUTPATIENT VISIT EST Diagnosis: Acute kidney failure, unspecified[ICD10: N17.9] Jalyn Leigh BULLROSS [employer] [facility] CPT-4: 63716 03/18/2019 ([id number]) OFFICE/OUTPATIENT VISIT EST Diagnosis: Essential (primary) hypertension[ICD10: I10] Diagnosis: Chronic atrial fibrillation[ICD10: I48.2] Diagnosis: Mixed hyperlipidemia[ICD10: E78.2] Diagnosis: Other fatigue[ICD10: R53.83] Diagnosis: Abdominal distension (gaseous)[ICD10: R14.0] Jalyn DAILY [employer] [facility] CPT-4: 94235 02/12/2019 ([id number]) OFFICE/OUTPATIENT VISIT EST Diagnosis: Low back pain[ICD10: M54.5] Bhavna DOUGHERTY S. Michelle RENDER [employer] [facility] CPT-4: 10189 12/25/2018 ([id number]) OFFICE/OUTPATIENT VISIT EST Diagnosis: Low back pain[ICD10: M54.5] Bhavna DOUGHERTY S. O RENDER [employer] [facility] CPT-4: 79335 12/12/2018 ([id number]) OFFICE/OUTPATIENT VISIT EST Diagnosis: Anemia, unspecified[ICD10: D64.9] Diagnosis: Chronic atrial fibrillation[ICD10: I48.2] Diagnosis: Other fatigue[ICD10: R53.83] Jalyn DAILY [employer] [facility] CPT-4: 22005 10/10/2018 ([id number]) OFFICE/OUTPATIENT VISIT EST Diagnosis: Acute on chronic combined systolic (congestive) and diastolic (congestive) heart failure[ICD10: I50.43] Diagnosis: Chronic atrial fibrillation[ICD10: I48.2] Jalyn DAILY [employer] [facility] CPT-4: 04415 08/27/2018 ([id number]) OFFICE/OUTPATIENT VISIT EST Diagnosis: Chronic atrial fibrillation[ICD10: I48.2] 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] Diagnosis: penitentiary (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[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] Jalyn DAILY [employer] [facility] CPT-4: 73420 08/13/2018 ([id number]) OFFICE/OUTPATIENT VISIT EST Diagnosis: Acute on chronic combined systolic (congestive) and diastolic (congestive) heart failure[ICD10: I50.43] Diagnosis: Essential (primary) hypertension[ICD10: I10] Diagnosis: Anemia, unspecified[ICD10: D64.9] Jalyn DAILY DO [facility] CPT-4: 63235 07/10/2018 ([id number]) OFFICE/OUTPATIENT VISIT EST Diagnosis: Chronic atrial fibrillation[ICD10: I48.2] Diagnosis: Acute on chronic combined systolic (congestive) and diastolic (congestive) heart failure[ICD10: I50.43] Diagnosis: Localized edema[ICD10: R60.0] Jalyn DAILY [employer] [facility] CPT-4: 04660 05/06/2018 ([id number]) OFFICE/OUTPATIENT VISIT EST Diagnosis: Generalized abdominal pain[ICD10: R10.84] Diagnosis: Pelvic and perineal pain[ICD10: R10.2] Diagnosis: Localized edema[ICD10: R60.0] Bhavna DAILY [employer] [facility] CPT-4: 69620 04/17/2018 ([id number]) OFFICE/OUTPATIENT VISIT EST Diagnosis: Urinary tract infection, site not specified[ICD10: N39.0] Diagnosis: Other insomnia[ICD10: G47.09] Diagnosis: Other fatigue[ICD10: R53.83] Diagnosis: Other forms of dyspnea[ICD10: R06.09] Diagnosis: Chronic atrial fibrillation[ICD10: I48.2] Diagnosis: Restless legs syndrome[ICD10: G25.81] Jalyn Bullaugieanibal DAILY [employer] [facility] CPT-4: 81699 03/26/2018 ([id number]) OFFICE/OUTPATIENT VISIT EST Diagnosis: Altered mental status, unspecified[ICD10: R41.82] Diagnosis: penitentiary (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[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] Diagnosis: Hematuria, unspecified[ICD10: R31.9] Bhavna DAILY [employer] [facility] CPT-4: 38457 03/15/2018 ([id number]) NURSE/OUTPATIENT VISIT EST Diagnosis: Urinary tract infection, site not specified[ICD10: N39.0] Jalyn Abimbola DAILY [employer] CPT-4: 59511 02/06/2018 OFFICE/OUTPATIENT VISIT NEW Diagnosis: penitentiary (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[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] Diagnosis: Essential (primary) hypertension[ICD10: I10] Diagnosis: Mixed hyperlipidemia[ICD10: E78.2] Diagnosis: Other fatigue[ICD10: R53.83] Diagnosis: Cardiac arrhythmia, unspecified[ICD10: I49.9] Diagnosis: Generalized abdominal pain[ICD10: R10.84] Diagnosis: Urinary tract infection, site not specified[ICD10: N39.0] Diagnosis: Other insomnia[ICD10: G47.09] Bhavna Escalante JALYN DAILY [employer] CPT-4: 76764 01/30/2018 Plan of Care Planned Activity Notes [...] R42 11/19/2019 Appointment: [facility]al[facility] [phone] [id number] [facility] [facility] 11/19/2019 Patient Education: Colace- OptimizeRX Coupon [id number] [email or web address]/[email or web address]/resources/getResource/[email or web address] Completed 11/19/2019 Visit Diagnosis Plan: Encounter for gene [facility] adult medical examination with abnormal findings [...] : I10 09/25/2019 Appointment: Jalyn Daily WPtel: [address] [place], [place] [phone] Annual Well Visit 09/25/2019 Care Plan: [place] : 8[address]-0 Pending 09/22/2019 Care Plan: COMPLETE CBC W/AUTO DIFF WBC LOINC : 45636-2 Pending 09/22/2019 Appointment: Bhavna Escalante [address] [facility] [place] pt. feeling better and still had [...] : K57.32 08/26/2019 Appointment: Jalyn Daily WPtel: [address] [place], [place] [id number] ACUTE ILLNESS 08/26/2019 Appointment: Jalyn Daily WPtel: [address] [place], [place] [id number] originally 4 mo follow up CANCELED 2018 Visit Diagnosis Plan: Clostridium difficile colitis Di scussion: Vancomycin daily for another week then 125mg every 3 days for 1 month then stop Fwup in September ICD-9 : 008.45 ICD-10 : A04.72 05/07/2019 Appointment: Jalyn Daily WPtel: [address] [place] [address] FOLLOW UP 05/07/2019 Visit Diagnosis Plan: Edema [...] : A04.72 04/23/2019 Appointment: Jalyn Daily WPtel: [address] [place] [address] Hospital Follow Up 04/23/2019 Appointment: Bhavna Escalante [address] [place] [address] CANCELED 04/15/2019 Visit Diagnosis Plan: Left lower quadrant pain Discuss ion: will start with abdominal xray to rule out acute obstruction/constipation. if no acute findings, will treat as diverticulitis due to patient's past history. ICD-9 : 789.04 ICD-10 : R10.32 03/27/2019 Appointment: Bhavna Escalante [address] [place] [address] ACUTE ILLNESS 03/27/2019 Visit Diagnosis Plan: Acute kidney failure, unspecifie d Discussion: Was given Meloxicam at urgent care--discussed no NSAIDs, hydrate, repeat Chem 7 in 1 week ICD-9 : 584.9 ICD-10 : N17.9 03/18/2019 Appointment: Jalyn Daily WPtel: [address] [place] [address] ACUTE ILLNESS 03/18/2019 Visit Diagnosis Plan: Abdominal [...] Appointment: Jalyn Daily WPtel: [phone] [id number] [place] FOLLOW UP 02/12/2019 Appointment: Bhavna Escalante [address] [place], [place] [phone] [place] Canceled per guillermina. sending for mri [...] ICD-10 : M54.5 12/25/2018 Appointment: Bhavna Escalante [address] [place], [place] [phone] ACUTE ILLNESS 12/25/2018 Visit Diagnosis Plan: Low [...] ICD-10 : M54.5 12/12/2018 Appointment: Bhavna Escalante [address] [place], [place] [phone] ACUTE ILLNESS 12/12/2018 Patient Education: cyclobenzaprine- OptimizeRX Coupon [id number] [email or web address]/resources/getResource/[email or web address] Completed 12/12/2018 Appointment: Bhavna Escalante [address] [place], [place] [phone] [place] CANCELED 12/06/2018 Visit Diagnosis Plan: Chronic atrial fibrillation Disc ussion: Cardiology monitoring PT/INR Follow Up: 4 months ICD-9 : 427.31 ICD-10 : I48.2 10/10/2018 Visit Diagnosis Plan: Anemia, unspecified Discussion: Update CBC ICD-9 : 285.9 ICD-10 : D64.9 10/10/2018 Visit Diagnosis Plan: Other fatigue Discussion: Increa se activity--discussed 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 ICD-9 : 780.79 ICD-10 : R53.83 10/10/2018 Appointment: Jalyn Dailytel: [address] [place], [place] [phone] [place] FOLLOW UP 10/10/2018 Visit Diagnosis Plan: [...] : I50.43 08/27/2018 Appointment: Jalyn Daily WPtel: [address] [place], [place] [address] [place] FOLLOW UP 08/27/2018 Visit Diagnosis Plan: [...] ICD-10 : I48.2 08/13/2018 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 Discussion: Increase Coumadin to 5mg po daily and repeat PT/INR in 2 weeks ICD-9 : V58.61 ICD-10 : Z79.01 08/13/2018 Appointment: Jalyn Daily WPtel: [address] [place], [place] [phone] FOLLOW UP 08/13/2018 Patient Education: bumetanide- OptimizeRX Coupon [phone] https://www.[email or web address]/resources/[email or web address].[email or web address] Completed 08/13/2018 Patient Education: levothyroxine- OptimizeRX Coupon [phone] https://www.[email or web address]/resources/getResource/61/[email or web address]-mi Completed 08/13/2018 Patient Education: warfarin- OptimizeRX Coupon [id number] [email or web address] Completed 08/13/2018 Patient Education: pantoprazole- Opt[employer] Coupon [phone] https://www.[email or web address]/resources/[email or web address] [email or web address] Completed 08/13/2018 Patient Education: spironolactone- [employer] Coupon [phone] [email or web address].[email or web address]/[email or web address] Completed 08/13/2018 Visit Diagnosis Plan: Anemia, unspecified [...] I50.43 07/10/2018 Appointment: [phone] [facility] [place] [address] FOLLOW UP 07/10/2018 Visit Diagnosis Plan: [...] : I48.2 05/06/2018 Appointment: Jalyn Daily WPtel: [address] [place] [address] [place] FOLLOW UP 05/06/2018 Visit Diagnosis Plan: [...] ICD-10 : R10.2 04/17/2018 Appointment: Bhavna Escalante [address] [place] [address] ACUTE ILLNESS 04/17/2018 Patient Education: Patient Medication Summary Completed 04/17/2018 Care Plan: CT ABDOMEN W/O & W/DYE LOINC : 98065-1 Pending 04/17/2018 Care Plan: CT PELVIS W/O & W/DYE LOINC : 97854-7 Pending 04/17/2018 Appointment: Jalyn Daily WPtel: [address] [place], [place] [id number] [place] CANCELED 04/10/2018 Visit Diagnosis Plan: Urinary [...] : R06.03/26/2018 Appointment: Jalyn Daily WPtel: [phone] [facility] ER Follow UP 03/26/2018 Patient Education: [...] ICD-10 : R41.82 03/15/2018 Appointment: Bhavna Escalante [address] [place], [place] [id number] ACUTE ILLNESS 03/15/2018 Patient Education: Patient Medication Summary Completed 03/15/2018 Visit Diagnosis Plan: Primary insomnia Discussion: Tri al of elavil 10mg po q HS ICD-9 : 780.52 ICD-10 : F51.01 02/26/2018 Visit Diagnosis Plan: Functional dyspepsia Discussion: Increase protonix to 40mg po BID Follow Up: 1 months ICD-9 : 536.8 ICD-10 : K30 02/26/2018 Appointment: Jalyn Daily WPtel: [phone] [facility] WELCOME TO MEDICARE 02/26/2018 Patient Education: Patient Medication Summary Completed 02/26/2018 Referral: Song Noonan WPtel: [phone] [facility] [place] Referral Initiated 02/19/2018 Appointment: Jalyn Daily WPtel: [phone] [facility] [place] LAB 02/06/2018 Patient Education: Patient Medication Summary Completed 02/06/2018 Appointment: [phone] [place] [place] CANCELED 02/01/2018 Care Plan: US EXAM ABDOM COMPLETE liver LOINC : 53950-3 Pending 01/31/2018 Visit Diagnosis Plan: Other fatigue [...] ICD-10 : I10 01/30/2018 Appointment: Bhavna Escalante [address] [place], [place] [id number] NEW PATIENT 01/30/2018 Patient Education: [...]
--- OUTSIDE RECORDS SUMMARY | 2020-02-10 14:04 | XMS REPORT | CCD ---
Author Author Riana Escalante Organization [facility] Address [address] [place] [address] Phone Unavailable Care Team Providers Care Sales Special Agent Name Role Phone PP Unavailable CCM Unavailable Summary Purpose Interface Exchange Insurance Providers Payer name Policy type / Coverage type Covered libertarian ID Effective Begin Date Effective End Date WPS MEDICARE PART B [place] Medicare Part B [id number] 2017 Unknown Cigna Medicare Part B [id number] 2017 Unknown Family History Family History data not found Social History Social History Element Codes Description Effective Dates Tobacco history SNOMED CT: 740026622 Never smoker 01/30/[address]: 590196424 Never drinks alcohol 2017 Allergies, Adverse Reactions, Alerts Substance Reaction Codes Entered Date Inactivated Date Status * NO KNOWN ENVIRONMENTAL ALLERGIES Unknown 01/30/2018 N o Inactive Date Active * NO KNOWN FOOD ALLERGIES Unknown 01/30/2018 No Inactiv e Date Active * NO KNOWN DRUG ALLERGIES Unknown 01/30/2018 No Inactiv e Date Active Problems Condition Codes Effective Dates Condition Status Dizziness and giddiness ICD-9: 780.4 ICD-10: R42 11/19/2019 Active Hypotension ICD-9: 458.9 ICD-10: I95.9 11/19/2019 Active Polyuria ICD-9: 788.42 ICD-10: R35.8 11/19/2019 Active 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 ICD-9: 428.43 ICD-10: I50.43 05/06/2018 Active Chronic kidney disease ICD-9: 585.9 ICD-10: N18.9 09/25/2019 Active Encounter for general adult medical examination [...] Fill Instructions Colace 100 mg capsule RxNorm: 3988692 1 Capsule(s) Oral three ti mes a day 11/19/2019 12/19/2019 Active warfarin 5 mg tablet RxNorm: 384863 1 Tablet(s) Oral MW F and 1/2 tablet (2.5mg) , [facility] [place] 09/30/2019 12/29/2019 Active levothyroxine 25 mcg tablet RxNorm: 123934 TAKE ONE TABLET BY M OUTH DAILY 09/30/2019 No Stop Date Active potassium chloride ER 10 mEq capsule,extended release RxNorm : 297612 1 Capsule(s) Oral two times a day on and 1 capsule 09/26/2019 09/26/2019 Inactive vancomycin 125 mg capsule RxNorm: 946303 2 Capsule(s) Oral Q8H 08/0909/05/2019 Inactive warfarin 5 mg tablet RxNorm: 541410 1 Tablet(s) Oral MW F and 1/2 tablet (2.5mg) , Sun & Sun08/26/2019 09/29/2019 Inactive Colace 100 mg capsule RxNorm: 9994306 1 Capsule(s) Oral QD 08/26/19 20 11/18/2019 Inactive levothyroxine 25 mcg tablet RxNorm: 265144 1 Tablet(s) PO QD 201909/29/2019 Inactive spironolactone 25 mg tablet RxNorm: 100254 TAKE 1 TABLET BY DOUGLAS TH TWICE DAILY 06/22/2019 09/19/2019 Inactive losartan 25 mg tablet RxNorm: 921085 TAKE 1 TABLET BY M OUTH ONCE DAILY IN THE MORNING 05/26/2019 No Stop Date Active bumetanide 1 mg tablet RxNorm: 876023 TAKE 1 TABLET BY MOUTH TWICE DAILY AT 6AM AND 6PM 05/23/2019 No Stop Date Active vancomycin 125 mg capsule RxNorm: 652075 1 Capsule(s) Oral Q3D 04/1008/25/2019 Inactive pantoprazole 40 mg tablet,delayed release RxNorm: 788513 1-2 Ta blet(s) Oral QD 04/23/2019 05/23/2019 Inactive potassium chloride ER 10 mEq capsule,extended release RxNorm : 661809 1 Capsule(s) Oral QD 04/23/2019 09/25/2019 Inactive warfarin 5 mg tablet RxNorm: 369647 Tablet(s) Oral Take 1 tablet (5mg) by mouth on and Sun then 1/2 tablet (2.5mg) on Sun, Sun, Th, Sat and Sun 04/23/2019 08/25/2019 Inactive temazepam 15 mg capsule RxNorm: 117049 TAKE 1 TO 2 CAPS ULES BY MOUTH AT BEDTIME NEEDED FOR SLEEP 04/08/2019 09/25/2019 Inactive Cipro 250 mg tablet RxNorm: 451814 1 Tablet(s) Oral two times a day 03/27/2019 04/03/2019 Inactive metronidazole 500 mg tablet RxNorm: 873342 1 Tablet(s) Oral thr ee times a day 03/27/2019 04/03/2019 Inactive bumetanide 1 mg tablet RxNorm: 556073 1 Tablet(s) PO BID (6am a nd 6pm) 02/13/2019 05/13/2019 Inactive levothyroxine 25 mcg tablet RxNorm: 382527 1 Tablet(s) PO QD 201807/13/2019 Inactive warfarin 5 mg tablet RxNorm: 530914 1 TABLET(S) PO , SUN, TH, SAT AND SUN AND 1/2 TABLET ON 02/04/2019 02/11/2019 Inactive Kendra ent requests 90 days supply warfarin 5 mg tablet RxNorm: 591073 1 TABLET(S) PO TUES , WED, THURS, SAT AND SUN AND 1/2 TABLET ON 02/03/2019 02/03/2019 Inactive Kendra ent requests 90 days supply levothyroxine 25 mcg tablet RxNorm: 311763 1 Tablet(s) PO QD 201802/03/2019 Inactive warfarin 5 mg tablet RxNorm: 663224 1 Tablet(s) PO Tues , Wed, Thurs, Sat and Sun and 1/2 tablet on 01/31/2019 02/02/2019 Inactive temazepam 15 mg capsule RxNorm: 094548 TAKE 1 TO 2 CAPS ULES BY MOUTH AT BEDTIME NEEDED FOR SLEEP 01/31/2019 04/07/2019 Inactive cyclobenzaprine 10 mg tablet RxNorm: 776959 1 Tablet(s) PO Q8H as needed 12/30/2018 09/25/2019 Inactive losartan 25 mg tablet RxNorm: 153939 1 Tablet(s) PO QAM 12/27/2018 Inactive Lidoderm 5 % topical patch RxNorm: 3388491 1 Application TOP Q12H and then off for 12 hours 12/25/2018 01/23/2019 Inactive Lidoderm 5 % topical patch RxNorm: 1805060 1 Application TOP Q12H and then off for 12 hours 12/25/2018 12/24/2018 Inactive cyclobenzaprine 5 mg tablet RxNorm: 710883 1 Tablet(s) PO Q8H a s needed 12/12/2018 12/24/2018 Inactive spironolactone 25 mg tablet RxNorm: 848152 1 Tablet(s) PO BID 09/2006/16/2019 Inactive change in directions to BID pantoprazole 40 mg tablet,delayed release RxNorm: 793600 1 Tabl et(s) PO QD 09/20/2018 04/22/2019 Inactive Patient requests 9 0 days supply spironolactone 25 mg tablet RxNorm: 922278 1 Tablet(s) PO BID 08/2609/19/2018 Inactive change in directions to BID pantoprazole 40 mg tablet,delayed release RxNorm: 292440 1 Tabl et(s) PO QD 08/15/2018 09/19/2018 Inactive Patient requests 9 0 days supply carvedilol 6.25 mg tablet RxNorm: 149306 1 Tablet(s) PO BID 019 02/08/2019 Inactive pantoprazole 40 mg tablet,delayed release RxNorm: 219652 1 Tablet(s) PO QD 1 TABLET(S) PO BID 08/13/2018 08/15/2018 Inactive Patient reque sts 90 days supply bumetanide 1 mg tablet RxNorm: 881411 1 Tablet(s) PO BID (6am a nd 6pm) 08/13/2018 02/08/2019 Inactive bumetanide 0.5 mg tablet RxNorm: 350823 1 Tablet(s) PO QPM three days a week--Sunday, Sun, Sunday instead of 1mg dose in evening 08/13/201812/2018 Inactive levothyroxine 25 mcg tablet RxNorm: 936528 1 Tablet(s) PO QD 201801/30/2019 Inactive spironolactone 25 mg tablet RxNorm: 725711 1 Tablet(s) PO QD 201808/25/2018 Inactive losartan 25 mg tablet RxNorm: 559948 1 Tablet(s) PO QAM 08/13/2018 Inactive warfarin 5 mg tablet RxNorm: 226620 1 Tablet(s) PO QD 08/13/201808/09 Inactive pantoprazole 40 mg tablet,delayed release RxNorm: 701850 1 TABL ET(S) PO BID 08/02/2018 08/12/2018 Inactive Patient requests 9 0 days supply temazepam 15 mg capsule RxNorm: 336016 1-2 Capsule(s) P O QHS as needed for sleep 2018 01/31/2019 Inactive Restoril 15 mg capsule RxNorm: 900592 1-2 Capsule(s) PO QHS as needed for sleep 06/04/2018 08/12/2018 Inactive potassium chloride ER 10 mEq capsule,extended release RxNorm : 406370 2 CAPSULE(S) PO QD 05/07/2018 08/04/2018 Inactive Patient reque sts 90 days supply temazepam 22.5 mg capsule RxNorm: 459015 1 Capsule(s) P O QHS as needed for sleep 05/06/2018 08/12/2018 Inactive potassium chloride ER 10 mEq capsule,extended release RxNorm : 840495 2 Capsule(s) PO QD 05/06/2018 05/06/2018 Inactive ropinirole 1 mg tablet RxNorm: 325093 1 TABLET(S) PO QHS FOR RE STLESS LEGS 03/27/2018 04/25/2018 Inactive Patient requests 9 0 days supply ropinirole 1 mg tablet RxNorm: 861879 1 Tablet(s) PO QHS for re stless legs 03/26/2018 03/26/2018 Inactive cefdinir 300 mg capsule RxNorm: 676731 1 Capsule(s) PO BID 03/26/20 18 03/30/2018 Inactive temazepam 15 mg capsule RxNorm: 854219 1 Capsule(s) PO QHS as neede d 03/20/2018 03/25/2018 Inactive Lunesta 3 mg tablet RxNorm: 317327 1 Tablet(s) PO QHS as needed for sleep 03/04/2018 03/19/2018 Inactive amitriptyline 10 mg tablet RxNorm: 958971 1 Tablet(s) PO QHS fo r sleep 02/26/2018 03/03/2018 Inactive escitalopram 20 mg tablet RxNorm: 163801 1 Tablet(s) PO QHS 018 08/12/2018 Inactive pantoprazole 40 mg tablet,delayed release RxNorm: 190107 1 Tabl et(s) PO BID 02/26/2018 04/26/2018 Inactive Coumadin 2.5 mg tablet RxNorm: 766929 1 Tablet(s) PO MWF 02/18/2018 0 07/22/2018 Inactive amiodarone 200 mg tablet RxNorm: 233740 1 Tablet(s) PO QD No Start Da te Active colestipol 1 gram tablet RxNorm: 1709971 1 Tablet(s) PO BID No Start Date Active pantoprazole 40 mg tablet,delayed release RxNorm: 735584 1 Tabl et(s) PO QD No Start Date Active pantoprazole 40 mg tablet,delayed release RxNorm: 292557 1 Tabl et(s) PO QD No Start Date 02/25/2018 Inactive bumetanide 1 mg tablet RxNorm: 116377 1 Tablet(s) PO BID (6am a nd 6pm) No Start Date 08/12/2018 Inactive potassium chloride ER 10 mEq tablet,extended release RxNorm: 658176 1 Tablet(s) PO QD No Start Date 02/11/2019 Inactive levothyroxine 25 mcg tablet RxNorm: 169086 1 Tablet(s) PO QD No Sta rt Date 08/12/2018 Inactive spironolactone 25 mg tablet RxNorm: 469847 1 Tablet(s) PO QD No Sta rt Date 08/12/2018 Inactive warfarin 5 mg tablet RxNorm: 433634 1 Tablet(s) PO MWF No Start Date 08/12/2018 Inactive warfarin 5 mg tablet RxNorm: 032503 1 Tablet(s) PO Tues , Wed, Th, Sat and Sun then 1/2 tablet (2.5mg) on Mon & Fri No Start Date 08/12/2018 Inactive losartan 25 mg tablet RxNorm: 621604 1 Tablet(s) PO QAM No Start Da te 08/12/2018 Inactive carvedilol 6.25 mg tablet RxNorm: 561985 1 Tablet(s) PO BID No Star t Date 08/12/2018 Inactive warfarin 2.5 mg tablet RxNorm: 279893 1 Tablet(s) PO Tues, Thur s, Sat and Sun No Start Date 08/12/2018 Inactive Coumadin 2.5 mg tablet RxNorm: 949726 Tablet(s) Sun and Sun PO No Start Date 02/17/2018 Inactive Children's Multivitamin with Iron tablet RxNorm: 1 Table t(s) PO QD No Start Date 04/22/2019 Inactive potassium chloride ER 20 mEq tablet,extended release(p art/cryst) RxNorm: 6812614 2 Tablet(s) PO QD No Start Date 05/05/2018 Inactive Coumadin 5 mg tablet RxNorm: 269283 Tablet(s) PO No Start Date 2017 Inactive mexiletine 200 mg capsule RxNorm: 5986404 1 Capsule(s) PO BID No St art Date 03/25/2018 Inactive ferrous sulfate 325 mg (65 mg iron) tablet RxNorm: 214336 1 Tab let(s) PO QD No Start Date 07/22/2018 Inactive cyclobenzaprine 10 mg tablet RxNorm: 753024 1 Tablet(s) PO Q8H as needed No Start Date 12/29/2018 Inactive potassium chloride ER 10 mEq capsule,extended release RxNorm : 608812 2 Capsule(s) PO QD No Start Date 12/11/2018 Inactive Coumadin 5 mg tablet RxNorm: 943319 1 Tablet(s) PO Tues, , Sat and Sun No Start Date 07/22/2018 Inactive Restoril 15 mg capsule RxNorm: 396874 1-2 Capsule(s) PO QHS as needed for sleep No Start Date 05/05/2018 Inactive metoprolol succinate ER 25 mg tablet,extended release 24 hr RxNorm: 917335 1 Tablet(s) PO QD No Start Date 08/12/2018 Inactive Entresto 24 mg-26 mg tablet RxNorm: 2081669 1 Tablet(s) PO BID No S tart Date 08/12/2018 Inactive warfarin 5 mg tablet RxNorm: 055928 1 Tablet(s) PO , Sun, , Sat and Sun and 1/2 tablet on Sun/Sun No Start Date 01/30/2019 Inactive amiodarone 200 mg tablet RxNorm: 623917 2 Tablet(s) PO BID No Start Date 10/09/2018 Inactive furosemide 20 mg tablet RxNorm: 156732 1 Tablet(s) PO QD No Start D ate 08/12/2018 Inactive amiodarone 200 mg tablet RxNorm: 218238 1 Tablet(s) PO BID No Start Date 08/26/2018 Inactive atorvastatin 40 mg tablet RxNorm: 143025 1 Tablet(s) PO QD No Start Date 08/12/2018 Inactive warfarin 5 mg tablet RxNorm: 640093 1/2 Tablet(s) PO on Sun, Sun, Sun, Sun then 1 tablet on Sun, , Sat No Start Date 04/22/2019 Inactive Medication Administered No Medication Administered data Immunizations Vaccine Codes Date Status Pneumovax CVX: 33 05/14/2019 Hepatitis A CVX: 83 03/25/2019 Influenza CVX: 135 03/25/2019 Results Observation Observation Code Item Item Code Result Date S ervice Location UA W/MICR 99166 UA Urine Appear Normal 02/06/2018 Unk nown UA W/MICR 25728 UA Protein 3+ 02/06/2018 Unknown UA W/MICR 74813 UA Hemoglobin Trace 02/06/2018 Unkno wn UA W/MICR 37695 UA Glucose Negative 02/06/2018 Unknown UA W/MICR 02581 UA Ketones Negative 02/06/2018 Unknown UA W/MICR 12070 UA pH 5.5 02/06/2018 Unknown UA W/MICR 90090 U Spec [place] 1.025 02/06/2018 Unkn own UA W/MICR 82065 UA Bilirubin Negative 02/06/2018 Unknow n UA W/MICR 33360 UA Leuk Esteras Trace 02/06/2018 Unk nown UA W/MICR 53077 UA Nitrite NEG 02/06/2018 Unknown UA W/MICR 77249 UA WBC/hpf 11-25 02/06/2018 Unknown UA W/MICR 50136 UA RBC hpf 0-5 02/06/2018 Unknown UA W/MICR 78899 UA Hyaline Cast 16-25 02/06/2018 Unk nown UA W/MICR 43901 UA Squam Epi Few 02/06/2018 Unknow n Procedures Procedure Codes Date INITIAL PREVENTIVE EXAM CPT-4: G0402 09/25/2019 URINALYSIS NONAUTO W/O SCOPE CPT-4: 78650 03/18/2019 URINE CULTURE/ COLONY COUNT CPT-4: 44932 03/18/2019 URINALYSIS NONAUTO W/O SCOPE CPT-4: 88136 12/12/2018 URINE CULTURE/ COLONY COUNT CPT-4: 68090 03/26/2018 URINALYSIS NONAUTO W/O SCOPE CPT-4: 26473 03/15/2018 INITIAL PREVENTIVE EXAM CPT-4: G0402 02/26/2018 URINALYSIS NONAUTO W/O SCOPE CPT-4: 01320 02/06/2018 URINE CULTURE/ COLONY COUNT CPT-4: 99004 02/06/2018 UA W/MICR CPT-4: 86493 02/06/2018 CUR TOBACCO NON-USER CPT-4: G8457 01/30/2018 REPAIR BLADDER & VAGINA CPT-4: 46152 01/06/2017 REPAIR OF RECTOCELE CPT-4: 38650 01/06/2017 BREAST SURGERY PROCEDURE CPT-4: 62822 Unknown LAPARO CHOLECYSTECTOMY/EXPLR CPT-4: 03753 Unknown HYSTERECTOMY/REVISE VAGINA CPT-4: 06518 Unknown Vital Signs Date Vital 11/19/2019 Blood Pressure 1: 126/60 Code: 8480-6 [...] 1: 106/58 Code: 8480-6 BMI: 26.3 Code: 48159-2 Heart Rate 1: 72 bpm Height: 4'10" Respiratory Rate: 20 bpm SpO2: 97% Tempera ture: 36.6 (C) / 97.8 (F) Weight: 128 lbs 07/10/2018 Blood Pressure 1: 122/70 Code: 8480-6 BMI: 28.6 Code: 39593-9 Heart Rate 1: 80 bpm Height: 4'10" Respiratory Rate: 20 bpm SpO2: 96% Tempera ture: 36.9 (C) / 98.4 (F) Weight: 139 lbs 05/06/2018 Blood Pressure 1: 112/54 Code: 8480-6 BMI: 27.5 Code: 14960-2 Heart Rate 1: 80 bpm Height: 4'10" [...] 1: 146/80 Code: 8480-6 BMI: 30.0 Code: 92057-1 Heart Rate 1: 76 bpm Height: 4'10" Respiratory Rate: 20 bpm SpO2: 97% Tempera ture: 36.7 (C) / 98.1 (F) Weight: 146 lbs 02/26/2018 Blood Pressure 1: 126/80 Code: 8480-6 BMI: 29.6 Code: 56292-4 Heart Rate 1: 80 bpm Height: 4'10" Respiratory Rate: 18 bpm SpO2: 96% Tempera ture: 37.0 (C) / 98.6 (F) Weight: 144 lbs 01/30/2018 Blood Pressure 1: 120/78 Code: 8480-6 BMI: 29.6 Code: 36288-7 Heart Rate 1: 84 bpm Height: 4'10" Respiratory Rate: 20 bpm SpO2: 97% Tempera ture: 36.0 (C) / 96.8 (F) Weight: 144 lbs Functional Status No Functional Status data Reason For Visit Reason For Visit Effective Dates Notes dizziness 11/19/2019 Annual Checkup 09/25/2019 pt labs are scanned into chart abdominal pain 08/26/2019 follow up 05/07/2019 follow up 04/23/2019 [facility] abdominal pain 03/27/2019 left lower [...] up 07/10/2018 Hospital/ER fwup follow up 05/06/2018 [facility] abdominal pain 04/17/2018 follow up 03/26/2018 dizziness 03/15/2018 Patient had bladder biopsy on Sunday by Dr Noonan. states she has been holding her coumadin since Sunday insomnia 02/26/2018 blood in urine 02/06/2018 ~generic 01/30/2018 Establishing Care Encounters Encounter Performer Location Codes Date ([id number]) OFFICE/OUTPATIENT VISIT EST Diagnosis: Hypotension[ICD10: I95.9] Diagnosis: Dizziness and giddiness[ICD10: R42] Diagnosis: Polyuria[ICD10: R35.8] Jalyn Landeros [facility] CPT-4: 84505 11/19/2019 ([id number]) OFFICE/OUTPATIENT VISIT EST Diagnosis: Sigmoid diverticulitis[ICD10: K57.32] Jalyn DAILY [facility] CPT-4: 73802 08/26/2019 ([id number]) OFFICE/OUTPATIENT VISIT EST Diagnosis: Clostridium difficile colitis[ICD10: A04.72] Jalyn DAILY [facility] CPT-4: 11148 05/07/2019 ([id number]) OFFICE/OUTPATIENT VISIT EST Diagnosis: Clostridium difficile colitis[ICD10: A04.72] Diagnosis: Edema[ICD10: R60.9] [facility] 62825 04/23/2019 ([id number]) OFFICE/OUTPATIENT VISIT EST Diagnosis: Constipation[ICD10: K59.00] Diagnosis: Left lower quadrant pain[ICD10: R10.32] Bhavna Garydi THALIA AGUILAERIK JaniceRuben [facility]PT-[facility]: 77483 03/27/2019 ([id number]) OFFICE/OUTPATIENT VISIT EST Diagnosis: Acute kidney failure, unspecified[ICD10: N17.9] Jalyn DAILY [facility] CPT-4: 05216 03/18/2019 ([id number]) OFFICE/OUTPATIENT VISIT EST Diagnosis: Essential (primary) hypertension[ICD10: I10] Diagnosis: Chronic atrial fibrillation[ICD10: I48.2] Diagnosis: Mixed hyperlipidemia[ICD10: E78.2] Diagnosis: Other fatigue[ICD10: R53.83] Diagnosis: Abdominal distension (gaseous)[ICD10: R14.0] Jalyn CamachoRuben [facility] CPT-4: 38107 02/12/2019 ([id number]) OFFICE/OUTPATIENT VISIT EST Diagnosis: Low back pain[ICD10: M54.5] Bhavna Brarimalkhalif Martinez [facility] CPT-4: 18661 12/25/2018 ([id number]) OFFICE/OUTPATIENT VISIT EST Diagnosis: Low back pain[ICD10: M54.5] Bhavna [facility] CPT-4: 95890 12/12/2018 ([id number]) OFFICE/OUTPATIENT VISIT EST Diagnosis: Anemia, unspecified[ICD10: D64.9] Diagnosis: Chronic atrial fibrillation[ICD10: I48.2] Diagnosis: Other fatigue[ICD10: R53.83] Jalyn DAILY [facility] CPT-4: 35508 10/10/2018 ([id number]) OFFICE/OUTPATIENT VISIT EST Diagnosis: Acute on chronic combined systolic (congestive) and diastolic (congestive) heart failure[ICD10: I50.43] Diagnosis: Chronic atrial fibrillation[ICD10: I48.2] Jalyn DAILY [facility] CPT-4: 83126 08/27/2018 ([id number]) OFFICE/OUTPATIENT VISIT EST Diagnosis: Chronic atrial fibrillation[ICD10: I48.2] 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] 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] Jalyn DAILY [facility] CPT-4: 29859 08/13/2018 ([id number]) OFFICE/OUTPATIENT VISIT EST Diagnosis: Acute on chronic combined systolic (congestive) and diastolic (congestive) heart failure[ICD10: I50.43] Diagnosis: Essential (primary) hypertension[ICD10: I10] Diagnosis: Anemia, unspecified[ICD10: D64.9] Jalyn DAILY [facility] CPT-4: 80641 07/10/2018 ([id number]) OFFICE/OUTPATIENT VISIT EST Diagnosis: Chronic atrial fibrillation[ICD10: I48.2] Diagnosis: Acute on chronic combined systolic (congestive) and diastolic (congestive) heart failure[ICD10: I50.43] Diagnosis: Localized edema[ICD10: R60.0] Jalyn DAILY [facility] CPT-4: 59104 05/06/2018 ([id number]) OFFICE/OUTPATIENT VISIT EST Diagnosis: Generalized abdominal pain[ICD10: R10.84] Diagnosis: Pelvic and perineal pain[ICD10: R10.2] Diagnosis: Localized edema[ICD10: R60.0] Bhavna DAILY [facility] CPT-4: 10928 04/17/2018 ([id number]) OFFICE/OUTPATIENT VISIT EST Diagnosis: Urinary tract infection, site not specified[ICD10: N39.0] Diagnosis: Other insomnia[ICD10: G47.09] Diagnosis: Other fatigue[ICD10: R53.83] Diagnosis: Other forms of dyspnea[ICD10: R06.09] Diagnosis: Chronic atrial fibrillation[ICD10: I48.2] Diagnosis: Restless legs syndrome[ICD10: G25.81] Jalyn Aibmbola DAILY [facility] CPT-4: 36475 03/26/2018 ([id number]) OFFICE/OUTPATIENT VISIT EST Diagnosis: Altered mental status, unspecified[ICD10: R41.82] Diagnosis: jail (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[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] Diagnosis: Hematuria, unspecified[ICD10: R31.9] Bhavna DAILY [facility] CPT-4: 00828 03/15/2018 ([id number]) NURSE/OUTPATIENT VISIT EST Diagnosis: Urinary tract infection, site not specified[ICD10: N39.0] Jalyn Bullnahidnéstor DAILY [facility] CPT-4: 56264 02/06/2018 OFFICE/OUTPATIENT VISIT NEW Diagnosis: jail (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[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] Diagnosis: Essential (primary) hypertension[ICD10: I10] Diagnosis: Mixed hyperlipidemia[ICD10: E78.2] Diagnosis: Other fatigue[ICD10: R53.83] Diagnosis: Cardiac arrhythmia, unspecified[ICD10: I49.9] Diagnosis: Generalized abdominal pain[ICD10: R10.84] Diagnosis: Urinary tract infection, site not specified[ICD10: N39.0] Diagnosis: Other insomnia[ICD10: G47.09] Bhavna DAILY [facility] CPT-4: 00088 01/30/2018 Plan of Care Planned Activity Notes Codes Status Date Visit Diagnosis Plan: Hypotension Discussion: BP today is okay ICD-9 : 458.9 ICD-10 : I95.9 11/19/2019 Visit Diagnosis Plan: Dizziness and giddiness Discussi on: Check lab--CBC, CMP, TSH, PT/INR now ICD-9 : 780.4 ICD-10 : R42 11/19/2019 Visit Diagnosis Plan: Polyuria Discussion: UA normal ICD-9 : 788.42 ICD-10 : R35.8 11/19/2019 Patient Education: Colace- OptimizeRX Coupon [id number] [email or web address] Completed 11/19/2019 Visit Diagnosis Plan: Encounter for [facility] adult medical examination with abnormal findings [...] I10 09/25/2019 Appointment: Jalyn [facility] [phone] [id number] [facility] Well Visit 09/25/2019 Care Plan: COMPREH[place]AB[place] : 69400-4 Pending 09/22/2019 Care Plan: COMPLETE CBC W/AUTO DIFF WBC LOINC : 94502-9 Pending 09/22/2019 Appointment: Bhavna Escalante [address] pt[address] feeling better and still had two [...] : K57.32 08/26/2019 Appointment: Jalyn Daily WPtel: [address] [place], [place] [phone] ACUTE ILLNESS 08/26/2019 Appointment: Jalyn Daily WPtel: [address] [place], [place] [address] originally 4 mo follow up CANCELED 2018 Visit Diagnosis Plan: Clostridium difficile colitis Di scussion: Vancomycin daily for another week then 125mg every 3 days for 1 month then stop Fwup in September ICD-9 : 008.45 ICD-10 : A04.72 05/07/2019 Appointment: Jalyn Daily WPtel: [address] [place] [address] FOLLOW UP 05/07/2019 Visit Diagnosis Plan: Edema [...] : A04.72 04/23/2019 Appointment: Jalyn Daily WPtel: [address] [place], [place] [phone] Hospital Follow Up 04/23/2019 Appointment: Bhavna Escalante [address] [place] [address] [place] CANCELED 04/15/2019 Visit Diagnosis Plan: Left lower quadrant pain Discuss ion: will start with abdominal xray to rule out acute obstruction/constipation. if no acute findings, will treat as diverticulitis due to patient's past history. ICD-9 : 789.04 ICD-10 : R10.32 03/27/2019 Appointment: Bhavna Escalante [address] [id number] ACUTE ILLNESS 03/27/2019 Visit Diagnosis Plan: Acute kidney failure, unspecifie d Discussion: Was given Meloxicam at urgent care--discussed no NSAIDs, hydrate, repeat Chem 7 in 1 week ICD-9 : 584.9 ICD-10 : N17.9 03/18/2019 Appointment: Jalyn Daily WPtel: [address] [place] [address] ACUTE ILLNESS 03/18/2019 Visit Diagnosis Plan: Abdominal distension (gaseous) D iscussion: Trial of Zenpep q AC ICD-9 : 787.3 ICD-10 : R14.0 02/12/2019 Visit Diagnosis Plan: Essential (primary) hypertension Discussion: Stable ICD-9 : 401.9 ICD-10 : I10 02/12/2019 Visit Diagnosis Plan: Chronic atrial fibrillation Disc ussion: Following routinely with Cardiology ICD-9 : 427.31 ICD-10 : I48.2 02/12/2019 Appointment: Jalyn Daily WPtel: [address] [place] [address] [place] FOLLOW UP 02/12/2019 Appointment: Bhavna Escalante [address] [place] [address] [place] Canceled per guillermina. sending for mri [...] : M54.5 12/25/2018 Appointment: Bhavna Escalante [address] [place] [address] ACUTE ILLNESS 12/25/2018 Visit Diagnosis Plan: Low [...] : M54.5 12/12/2018 Appointment: Bhavna Escalante [address] [place] [address] ACUTE ILLNESS 12/12/2018 Patient Education: cyclobenzaprine- OptimizeRX Coupon [id number] [email or web address] Completed 12/12/2018 Appointment: Bhavna Escalante [address] [place] [address] US CANCELED 12/06/2018 Visit Diagnosis Plan: Chronic [...] : R53.83 10/10/2018 Appointment: Jalyn Daily WPtel: [address] [place] [address] [place] FOLLOW UP 10/10/2018 Visit Diagnosis Plan: [...] : I50.43 08/27/2018 Appointment: Jalyn Daily WPtel: [facility] [address] US FOLLOW UP 08/27/2018 Visit Diagnosis Plan: 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 Discussion: Increase Coumadin to 5mg po daily and repeat PT/INR in 2 weeks ICD-9 : V58.61 ICD-10 : Z79.01 08/13/2018 Appointment: Jalyn Daily [facility] [phone] [facility] [id number] [place] [place] 08/13/2018 Patient Education: bumetanide- [employer] Coupon [id number] https://www.[employer]/SignaCert/resources/getResource/61/4lx53u45-0ee9-9v53-sv Completed 08/13/2018 Patient Education: levothyroxine- [employer] Coupon [id number] https://www.[employer]/resources/getResource/61/1348300g-0811-2v48-od Completed 08/13/2018 Patient Education: warfarin- [employer] Coupon [id number] https://www.[employer]/resources/getResource/61/31001756-vk18-51o7-4f Completed 08/13/2018 Patient Education: pantoprazole- [employer] Coupon [phone] https://www.[employer]/resources/getResource/61/a7131a60-01c0-56ma-5y Completed 08/13/2018 Patient Education: spironolactone- [employer] Coupon [phone] https://www.Orth[employer]/Signa[employer]/resources/getResource/61/7id340x1-q916-8994-ol Completed 08/13/2018 Visit Diagnosis Plan: Anemia, unspecified [...] : I50.43 07/10/2018 Appointment: Jalyn Daily WPtel: [address] [place] [address] 2nd FOLLOW UP 07/10/2018 Visit Diagnosis Plan: [...] I48.2 05/06/2018 Appointment: Jalyn Daily WPtel: [address] [place] [address] [place] FOLLOW UP 05/06/2018 Visit Diagnosis Plan: [...] ICD-10 : R60.0 04/17/2018 Appointment: Bhavna Escalante [address] [place] [address] ACUTE ILLNESS 04/17/2018 Patient Education: Patient Medication Summary Completed 04/17/2018 Care Plan: CT ABDOMEN W/O & W/DYE LOINC : 31465-5 Pending 04/17/2018 Care Plan: CT PELVIS W/O & W/DYE LOINC : 93077-8 Pending 04/17/2018 Appointment: [facility] [phone] [facility] [id number] [place] CANCELED 04/10/2018 Visit Diagnosis Plan: Urinary [...] R06.09 03/26/2018 Appointment: [facility] Daily [facility]Ptel[facility] [phone] [facility] [id number] [place] Follow UP 03/26/2018 Patient Education: Patient [...] : R41.82 03/15/2018 Appointment: Bhavna Escalante [address] [place] [address] ACUTE ILLNESS 03/15/2018 Patient Education: Patient Medication Summary Completed 03/15/2018 Visit Diagnosis Plan: Primary insomnia Discussion: Tri al of elavil 10mg po q HS ICD-9 : 780.52 ICD-10 : F51.01 02/26/2018 Visit Diagnosis Plan: Functional dyspepsia Discussion: Increase protonix to 40mg po BID Follow Up: 1 months ICD-9 : 536.8 ICD-10 : K30 02/26/2018 Appointment: Jalyn Daily WPtel: [address] [place] [address] WELCOME TO MEDICARE 02/26/2018 Patient Education: Patient Medication Summary Completed 02/26/2018 Referral: Song Noonan WPtel: [address] [place] [address] [place] Referral Initiated 02/19/2018 Appointment: Jalyn Daily WPtel: [address] [place], [place] [phone] [place] LAB 02/06/2018 Patient Education: Patient Medication Summary Completed 02/06/2018 Appointment: Jalyn Daily WPtel: [address] [place], [place] [phone] [place] CANCELED 02/01/2018 Care Plan: US EXAM ABDOM COMPLETE liver LOINC : 27605-1 Pending 01/31/2018 Visit Diagnosis Plan: Other fatigue Discussion: will o rder fasting blood work to assess for any anemia or infection especially due to recent surgery and bleeding risks. 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
--- OUTSIDE RECORDS SUMMARY | 2020-02-10 14:04 | XMS REPORT | CCD ---
Author Author Riana Escalante Organization JALYN SRuben DAILY DO [facility] Address [address] [place] [address] Phone Unavailable Care Team Providers Care Pocket Secretary Assembler Name Role Phone PP Unavailable CCM Unavailable Summary Purpose Interface Exchange Insurance Providers Payer name Policy type / Coverage type Covered constitution party ID Effective Begin Date Effective End Date [employer] MEDIC[place] Medicare Part B [id number] 2017 Unknown Cigna Medicare Part B [id number] 2017 Unknown Family History Family History data not found Social History Social History Element Codes Description Effective Dates Tobacco history SNOMED CT: 154969904 Never smoker 01/30/[address]: 600293667 Never drinks alcohol 2017 Allergies, Adverse Reactions, [...] ICD-9: 401.9 ICD-10: I10 01/30/2018 Active intermediate (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 ICD-9: V58.6 1 [...] Fill Instructions Colace 100 mg capsule RxNorm: 4775946 1 Capsule(s) Oral three ti mes a day 11/19/2019 12/19/2019 Active warfarin 5 mg tablet RxNorm: 567920 1 Tablet(s) Oral MW F and 1/2 tablet (2.5mg) , [facility] [place] 09/30/2019 12/29/2019 Active levothyroxine 25 mcg tablet RxNorm: 609943 TAKE ONE TABLET BY M OUTH DAILY 09/30/2019 No Stop Date Active potassium chloride ER 10 mEq capsule,extended release RxNorm : 834066 1 Capsule(s) Oral two times a day on and 1 capsule 09/26/2019 09/26/2019 Inactive vancomycin 125 mg capsule RxNorm: 196442 2 Capsule(s) Oral Q8H 08/0909/05/2019 Inactive warfarin 5 mg tablet RxNorm: 301840 1 Tablet(s) Oral MW F and 1/2 tablet (2.5mg) , Sun & Sun08/26/2019 09/29/2019 Inactive Colace 100 mg capsule RxNorm: 0266511 1 Capsule(s) Oral QD 08/26/19 20 11/18/2019 Inactive levothyroxine 25 mcg tablet RxNorm: 977529 1 Tablet(s) PO QD 201909/29/2019 Inactive spironolactone 25 mg tablet RxNorm: 013340 TAKE 1 TABLET BY DOUGLAS TH TWICE DAILY 06/22/2019 09/19/2019 Inactive losartan 25 mg tablet RxNorm: 993666 TAKE 1 TABLET BY M OUTH ONCE DAILY IN THE MORNING 05/26/2019 No Stop Date Active bumetanide 1 mg tablet RxNorm: 870370 TAKE 1 TABLET BY MOUTH TWICE DAILY AT 6AM AND 6PM 05/23/2019 No Stop Date Active vancomycin 125 mg capsule RxNorm: 222339 1 Capsule(s) Oral Q3D 04/1008/25/2019 Inactive pantoprazole 40 mg tablet,delayed release RxNorm: 134384 1-2 Ta blet(s) Oral QD 04/23/2019 05/23/2019 Inactive potassium chloride ER 10 mEq capsule,extended release RxNorm : 270998 1 Capsule(s) Oral QD 04/23/2019 09/25/2019 Inactive warfarin 5 mg tablet RxNorm: 672021 Tablet(s) Oral Take 1 tablet (5mg) by mouth on and Sun then 1/2 tablet (2.5mg) on Sun, Sun, Th, Sat and Sun 04/23/2019 08/25/2019 Inactive temazepam 15 mg capsule RxNorm: 203844 TAKE 1 TO 2 CAPS ULES BY MOUTH AT BEDTIME NEEDED FOR SLEEP 04/08/2019 09/25/2019 Inactive Cipro 250 mg tablet RxNorm: 031220 1 Tablet(s) Oral two times a day 03/27/2019 04/03/2019 Inactive metronidazole 500 mg tablet RxNorm: 614104 1 Tablet(s) Oral thr ee times a day 03/27/2019 04/03/2019 Inactive bumetanide 1 mg tablet RxNorm: 959194 1 Tablet(s) PO BID (6am a nd 6pm) 02/13/2019 05/13/2019 Inactive levothyroxine 25 mcg tablet RxNorm: 072835 1 Tablet(s) PO QD 201807/13/2019 Inactive warfarin 5 mg tablet RxNorm: 218975 1 TABLET(S) PO , SUN, TH, SAT AND SUN AND 1/2 TABLET ON 02/04/2019 02/11/2019 Inactive Kendra ent requests 90 days supply warfarin 5 mg tablet RxNorm: 345207 1 TABLET(S) PO TUES , WED, THURS, SAT AND SUN AND 1/2 TABLET ON 02/03/2019 02/03/2019 Inactive Kendra ent requests 90 days supply levothyroxine 25 mcg tablet RxNorm: 964009 1 Tablet(s) PO QD 201802/03/2019 Inactive warfarin 5 mg tablet RxNorm: 030626 1 Tablet(s) PO Tues , Wed, Thurs, Sat and Sun and 1/2 tablet on 01/31/2019 02/02/2019 Inactive temazepam 15 mg capsule RxNorm: 456972 TAKE 1 TO 2 CAPS ULES BY MOUTH AT BEDTIME NEEDED FOR SLEEP 01/31/2019 04/07/2019 Inactive cyclobenzaprine 10 mg tablet RxNorm: 437751 1 Tablet(s) PO Q8H as needed 12/30/2018 09/25/2019 Inactive losartan 25 mg tablet RxNorm: 117306 1 Tablet(s) PO QAM 12/27/2018 Inactive Lidoderm 5 % topical patch RxNorm: 8444209 1 Application TOP Q12H and then off for 12 hours 12/25/2018 01/23/2019 Inactive Lidoderm 5 % topical patch RxNorm: 3146860 1 Application TOP Q12H and then off for 12 hours 12/25/2018 12/24/2018 Inactive cyclobenzaprine 5 mg tablet RxNorm: 012440 1 Tablet(s) PO Q8H a s needed 12/12/2018 12/24/2018 Inactive spironolactone 25 mg tablet RxNorm: 744768 1 Tablet(s) PO BID 09/2006/16/2019 Inactive change in directions to BID pantoprazole 40 mg tablet,delayed release RxNorm: 883749 1 Tabl et(s) PO QD 09/20/2018 04/22/2019 Inactive Patient requests 9 0 days supply spironolactone 25 mg tablet RxNorm: 256283 1 Tablet(s) PO BID 08/2609/19/2018 Inactive change in directions to BID pantoprazole 40 mg tablet,delayed release RxNorm: 443237 1 Tabl et(s) PO QD 08/15/2018 09/19/2018 Inactive Patient requests 9 0 days supply carvedilol 6.25 mg tablet RxNorm: 972585 1 Tablet(s) PO BID 019 02/08/2019 Inactive pantoprazole 40 mg tablet,delayed release RxNorm: 093293 1 Tablet(s) PO QD 1 TABLET(S) PO BID 08/13/2018 08/15/2018 Inactive Patient reque sts 90 days supply bumetanide 1 mg tablet RxNorm: 278706 1 Tablet(s) PO BID (6am a nd 6pm) 08/13/2018 02/08/2019 Inactive bumetanide 0.5 mg tablet RxNorm: 595345 1 Tablet(s) PO QPM three days a week--Sunday, Sun, Sunday instead of 1mg dose in evening 08/13/201812/2018 Inactive levothyroxine 25 mcg tablet RxNorm: 040443 1 Tablet(s) PO QD 201801/30/2019 Inactive spironolactone 25 mg tablet RxNorm: 418105 1 Tablet(s) PO QD 201808/25/2018 Inactive losartan 25 mg tablet RxNorm: 558291 1 Tablet(s) PO QAM 08/13/2018 Inactive warfarin 5 mg tablet RxNorm: 918539 1 Tablet(s) PO QD 08/13/201808/09 Inactive pantoprazole 40 mg tablet,delayed release RxNorm: 729179 1 TABL ET(S) PO BID 08/02/2018 08/12/2018 Inactive Patient requests 9 0 days supply temazepam 15 mg capsule RxNorm: 681608 1-2 Capsule(s) P O QHS as needed for sleep 2018 01/31/2019 Inactive Restoril 15 mg capsule RxNorm: 757423 1-2 Capsule(s) PO QHS as needed for sleep 06/04/2018 08/12/2018 Inactive potassium chloride ER 10 mEq capsule,extended release RxNorm : 520637 2 CAPSULE(S) PO QD 05/07/2018 08/04/2018 Inactive Patient reque sts 90 days supply temazepam 22.5 mg capsule RxNorm: 731167 1 Capsule(s) P O QHS as needed for sleep 05/06/2018 08/12/2018 Inactive potassium chloride ER 10 mEq capsule,extended release RxNorm : 571527 2 Capsule(s) PO QD 05/06/2018 05/06/2018 Inactive ropinirole 1 mg tablet RxNorm: 081693 1 TABLET(S) PO QHS FOR RE STLESS LEGS 03/27/2018 04/25/2018 Inactive Patient requests 9 0 days supply ropinirole 1 mg tablet RxNorm: 167599 1 Tablet(s) PO QHS for re stless legs 03/26/2018 03/26/2018 Inactive cefdinir 300 mg capsule RxNorm: 574734 1 Capsule(s) PO BID 03/26/20 18 03/30/2018 Inactive temazepam 15 mg capsule RxNorm: 198931 1 Capsule(s) PO QHS as neede d 03/20/2018 03/25/2018 Inactive Lunesta 3 mg tablet RxNorm: 041380 1 Tablet(s) PO QHS as needed for sleep 03/04/2018 03/19/2018 Inactive amitriptyline 10 mg tablet RxNorm: 497613 1 Tablet(s) PO QHS fo r sleep 02/26/2018 03/03/2018 Inactive escitalopram 20 mg tablet RxNorm: 274256 1 Tablet(s) PO QHS 018 08/12/2018 Inactive pantoprazole 40 mg tablet,delayed release RxNorm: 827301 1 Tabl et(s) PO BID 02/26/2018 04/26/2018 Inactive Coumadin 2.5 mg tablet RxNorm: 587244 1 Tablet(s) PO MWF 02/18/2018 0 07/22/2018 Inactive amiodarone 200 mg tablet RxNorm: 909439 1 Tablet(s) PO QD No Start Da te Active colestipol 1 gram tablet RxNorm: 2334678 1 Tablet(s) PO BID No Start Date Active pantoprazole 40 mg tablet,delayed release RxNorm: 087099 1 Tabl et(s) PO QD No Start Date Active pantoprazole 40 mg tablet,delayed release RxNorm: 356789 1 Tabl et(s) PO QD No Start Date 02/25/2018 Inactive bumetanide 1 mg tablet RxNorm: 243153 1 Tablet(s) PO BID (6am a nd 6pm) No Start Date 08/12/2018 Inactive potassium chloride ER 10 mEq tablet,extended release RxNorm: 934226 1 Tablet(s) PO QD No Start Date 02/11/2019 Inactive levothyroxine 25 mcg tablet RxNorm: 986705 1 Tablet(s) PO QD No Sta rt Date 08/12/2018 Inactive spironolactone 25 mg tablet RxNorm: 720443 1 Tablet(s) PO QD No Sta rt Date 08/12/2018 Inactive warfarin 5 mg tablet RxNorm: 550872 1 Tablet(s) PO MWF No Start Date 08/12/2018 Inactive warfarin 5 mg tablet RxNorm: 838488 1 Tablet(s) PO Tues , Wed, Th, Sat and Sun then 1/2 tablet (2.5mg) on Mon & Fri No Start Date 08/12/2018 Inactive losartan 25 mg tablet RxNorm: 920740 1 Tablet(s) PO QAM No Start Da te 08/12/2018 Inactive carvedilol 6.25 mg tablet RxNorm: 110306 1 Tablet(s) PO BID No Star t Date 08/12/2018 Inactive warfarin 2.5 mg tablet RxNorm: 557788 1 Tablet(s) PO Tues, Thur s, Sat and Sun No Start Date 08/12/2018 Inactive Coumadin 2.5 mg tablet RxNorm: 168691 Tablet(s) Sun and Sun PO No Start Date 02/17/2018 Inactive Children's Multivitamin with Iron tablet RxNorm: 1 Table t(s) PO QD No Start Date 04/22/2019 Inactive potassium chloride ER 20 mEq tablet,extended release(p art/cryst) RxNorm: 5297222 2 Tablet(s) PO QD No Start Date 05/05/2018 Inactive Coumadin 5 mg tablet RxNorm: 367651 Tablet(s) PO No Start Date 2017 Inactive mexiletine 200 mg capsule RxNorm: 4055668 1 Capsule(s) PO BID No St art Date 03/25/2018 Inactive ferrous sulfate 325 mg (65 mg iron) tablet RxNorm: 176531 1 Tab let(s) PO QD No Start Date 07/22/2018 Inactive cyclobenzaprine 10 mg tablet RxNorm: 159601 1 Tablet(s) PO Q8H as needed No Start Date 12/29/2018 Inactive potassium chloride ER 10 mEq capsule,extended release RxNorm : 019132 2 Capsule(s) PO QD No Start Date 12/11/2018 Inactive Coumadin 5 mg tablet RxNorm: 586383 1 Tablet(s) PO Tues, , Sat and Sun No Start Date 07/22/2018 Inactive Restoril 15 mg capsule RxNorm: 068830 1-2 Capsule(s) PO QHS as needed for sleep No Start Date 05/05/2018 Inactive metoprolol succinate ER 25 mg tablet,extended release 24 hr RxNorm: 370462 1 Tablet(s) PO QD No Start Date 08/12/2018 Inactive Entresto 24 mg-26 mg tablet RxNorm: 4972454 1 Tablet(s) PO BID No S tart Date 08/12/2018 Inactive warfarin 5 mg tablet RxNorm: 275826 1 Tablet(s) PO , Sun, , Sat and Sun and 1/2 tablet on Sun/Sun No Start Date 01/30/2019 Inactive amiodarone 200 mg tablet RxNorm: 570433 2 Tablet(s) PO BID No Start Date 10/09/2018 Inactive furosemide 20 mg tablet RxNorm: 379719 1 Tablet(s) PO QD No Start D ate 08/12/2018 Inactive amiodarone 200 mg tablet RxNorm: 206287 1 Tablet(s) PO BID No Start Date 08/26/2018 Inactive atorvastatin 40 mg tablet RxNorm: 528843 1 Tablet(s) PO QD No Start Date 08/12/2018 Inactive warfarin 5 mg tablet RxNorm: 803476 1/2 Tablet(s) PO on Sun, Sun, Sun, Sun then 1 tablet on Sun, , Sat No Start Date 04/22/2019 Inactive Medication Administered No Medication Administered data Immunizations Vaccine Codes Date Status Pneumovax CVX: 33 05/14/2019 Hepatitis A CVX: 83 03/25/2019 Influenza CVX: 135 03/25/2019 Results Observation Observation Code Item Item Code Result Date S ervice Location UA W/MICR 03928 UA Urine Appear Normal 02/06/2018 Unk nown UA W/MICR 98842 UA Protein 3+ 02/06/2018 Unknown UA W/MICR 33727 UA Hemoglobin Trace 02/06/2018 Unkno wn UA W/MICR 57353 UA Glucose Negative 02/06/2018 Unknown UA W/MICR 85227 UA Ketones Negative 02/06/2018 Unknown UA W/MICR 47772 UA pH 5.5 02/06/2018 Unknown UA W/MICR 49681 U Spec Dexter 1.025 02/06/2018 Unkn own UA W/MICR 26858 UA Bilirubin Negative 02/06/2018 Unknow n UA W/MICR 47423 UA Leuk Esteras Trace 02/06/2018 Unk nown UA W/MICR 96538 UA Nitrite NEG 02/06/2018 Unknown UA W/MICR 52161 UA WBC/hpf 11-25 02/06/2018 Unknown UA W/MICR 31238 UA RBC hpf 0-5 02/06/2018 Unknown UA W/MICR 41514 UA Hyaline Cast 16-25 02/06/2018 Unk nown UA W/MICR 41201 UA Squam Epi Few 02/06/2018 Unknow n Procedures Procedure Codes Date URINALYSIS NONAUTO W/O SCOPE CPT-4: 67045 11/19/2019 INITIAL PREVENTIVE EXAM CPT-4: G0402 09/25/2019 URINALYSIS NONAUTO W/O SCOPE CPT-4: 23347 03/18/2019 URINE CULTURE/ COLONY COUNT CPT-4: 60333 03/18/2019 URINALYSIS NONAUTO W/O SCOPE CPT-4: 92381 12/12/2018 URINE CULTURE/ COLONY COUNT CPT-4: 31682 03/26/2018 URINALYSIS NONAUTO W/O SCOPE CPT-4: 08067 03/15/2018 INITIAL PREVENTIVE EXAM CPT-4: G0402 02/26/2018 URINALYSIS NONAUTO W/O SCOPE CPT-4: 80104 02/06/2018 URINE CULTURE/ COLONY COUNT CPT-4: 00773 02/06/2018 UA W/MICR CPT-4: 08001 02/06/2018 CUR TOBACCO NON-USER CPT-4: G8457 01/30/2018 REPAIR BLADDER & VAGINA CPT-4: 12456 01/06/2017 REPAIR OF RECTOCELE CPT-4: 76433 01/06/2017 BREAST SURGERY PROCEDURE CPT-4: 90866 Unknown LAPARO CHOLECYSTECTOMY/EXPLR CPT-4: 58715 Unknown HYSTERECTOMY/REVISE VAGINA CPT-4: 46934 Unknown Vital Signs Date Vital 11/19/2019 Blood [...] 1: 106/58 Code: 8480-6 BMI: 26.3 Code: 58088-2 Heart Rate 1: 72 bpm Height: 4'10" Respiratory Rate: 20 bpm SpO2: 97% Tempera ture: 36.6 (C) / 97.8 (F) Weight: 128 lbs 07/10/2018 Blood Pressure 1: 122/70 Code: 8480-6 BMI: 28.6 Code: 52413-3 Heart Rate 1: 80 bpm Height: 4'10" Respiratory Rate: 20 bpm SpO2: 96% Tempera ture: 36.9 (C) / 98.4 (F) Weight: 139 lbs 05/06/2018 Blood Pressure 1: 112/54 Code: 8480-6 BMI: 27.5 Code: 56051-7 Heart Rate 1: 80 bpm Height: 4'10" [...] 1: 146/80 Code: 8480-6 BMI: 30.0 Code: 00507-6 Heart Rate 1: 76 bpm Height: 4'10" Respiratory Rate: 20 bpm SpO2: 97% Tempera ture: 36.7 (C) / 98.1 (F) Weight: 146 lbs 02/26/2018 Blood Pressure 1: 126/80 Code: 8480-6 BMI: 29.6 Code: 28595-0 Heart Rate 1: 80 bpm Height: 4'10" Respiratory Rate: 18 bpm SpO2: 96% Tempera ture: 37.0 (C) / 98.6 (F) Weight: 144 lbs 01/30/2018 Blood Pressure 1: 120/78 Code: 8480-6 BMI: 29.6 Code: 90268-3 Heart Rate 1: 84 bpm Height: 4'10" Respiratory Rate: 20 bpm SpO2: 97% Tempera ture: 36.0 (C) / 96.8 (F) Weight: 144 lbs Functional Status No Functional Status data Reason For Visit Reason For Visit Effective Dates Notes dizziness 11/19/2019 Annual Checkup 09/25/2019 pt labs are scanned into chart abdominal pain 08/26/2019 follow up 05/07/2019 follow up 04/23/2019 [facility] abdominal pain 03/27/2019 left lower quadrant [...] up 07/10/2018 Hospital/ER fwup follow up 05/06/2018 [facility] abdominal pain 04/17/2018 follow up 03/26/2018 dizziness 03/15/2018 Patient had bladder biopsy on Sunday by Dr Noonan. states she has been holding her coumadin since Sunday insomnia 02/26/2018 blood in urine 02/06/2018 ~generic 01/30/2018 Establishing Care Encounters Encounter Performer Location Codes Date ([id number]) OFFICE/OUTPATIENT VISIT EST Diagnosis: Hypotension[ICD10: I95.9] Diagnosis: Dizziness and giddiness[ICD10: R42] Diagnosis: Polyuria[ICD10: R35.8] Jalyn Landeros [facility] CPT-4: 39969 11/19/2019 ([id number]) OFFICE/OUTPATIENT VISIT EST Diagnosis: Sigmoid diverticulitis[ICD10: K57.32] Jalyn Abimbola DAILY [facility] CPT-4: 72842 08/26/2019 ([id number]) OFFICE/OUTPATIENT VISIT EST Diagnosis: Clostridium difficile colitis[ICD10: A04.72] Jalyn DAILY [facility] CPT-4: 31162 05/07/2019 ([id number]) OFFICE/OUTPATIENT VISIT EST Diagnosis: Clostridium difficile colitis[ICD10: A04.72] Diagnosis: Edema[ICD10: R60.9] Jalyn CamachoRuben [facility] CPT-4: 01482 04/23/2019 ([id number]) OFFICE/OUTPATIENT VISIT EST Diagnosis: Constipation[ICD10: K59.00] Diagnosis: Left lower quadrant pain[ICD10: R10.32] Bhavna DAILY [facility] CPT-4: 11843 03/27/2019 ([id number]) OFFICE/OUTPATIENT VISIT EST Diagnosis: Acute kidney failure, unspecified[ICD10: N17.9] Jalyn DAILY [facility] CPT-4: 72627 03/18/2019 ([id number]) OFFICE/OUTPATIENT VISIT EST Diagnosis: Essential (primary) hypertension[ICD10: I10] Diagnosis: Chronic atrial fibrillation[ICD10: I48.2] Diagnosis: Mixed hyperlipidemia[ICD10: E78.2] Diagnosis: Other fatigue[ICD10: R53.83] Diagnosis: Abdominal distension (gaseous)[ICD10: R14.0] Jalyn CamachoRuben [facility] CPT-4: 25487 02/12/2019 ([id number]) OFFICE/OUTPATIENT VISIT EST Diagnosis: Low back pain[ICD10: M54.5] Bhavna Camacho. Michelle RENDER [facility] CPT-4: 67418 12/25/2018 ([id number]) OFFICE/OUTPATIENT VISIT EST Diagnosis: Low back pain[ICD10: M54.5] Bhavna Martinez RENDER [facility] CPT-4: 58044 12/12/2018 ([id number]) OFFICE/OUTPATIENT VISIT EST Diagnosis: Anemia, unspecified[ICD10: D64.9] Diagnosis: Chronic atrial fibrillation[ICD10: I48.2] Diagnosis: Other fatigue[ICD10: R53.83] Jalyn DAILY [employer] [facility] CPT-4: 13009 10/10/2018 ([id number]) OFFICE/OUTPATIENT VISIT EST Diagnosis: Acute on chronic combined systolic (congestive) and diastolic (congestive) heart failure[ICD10: I50.43] Diagnosis: Chronic atrial fibrillation[ICD10: I48.2] Jalyn DAILY [employer] [facility] CPT-4: 58590 08/27/2018 ([id number]) OFFICE/OUTPATIENT VISIT EST Diagnosis: Chronic atrial fibrillation[ICD10: I48.2] 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] Diagnosis: intermediate (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[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] Jalyn DAILY [employer] [facility] CPT-4: 97120 08/13/2018 ([id number]) OFFICE/OUTPATIENT VISIT EST Diagnosis: Acute on chronic combined systolic (congestive) and diastolic (congestive) heart failure[ICD10: I50.43] Diagnosis: Essential (primary) hypertension[ICD10: I10] Diagnosis: Anemia, unspecified[ICD10: D64.9] Jalyn DAILY [employer] [facility] CPT-4: 17489 07/10/2018 ([id number]) OFFICE/OUTPATIENT VISIT EST Diagnosis: Chronic atrial fibrillation[ICD10: I48.2] Diagnosis: Acute on chronic combined systolic (congestive) and diastolic (congestive) heart failure[ICD10: I50.43] Diagnosis: Localized edema[ICD10: R60.0] [facility] 93199 05/06/2018 ([id number]) OFFICE/OUTPATIENT VISIT EST Diagnosis: Generalized abdominal pain[ICD10: R10.84] Diagnosis: Pelvic and perineal pain[ICD10: R10.2] Diagnosis: Localized edema[ICD10: R60.0] [facility]havna [facility]: 51090 04/17/2018 ([id number]) OFFICE/OUTPATIENT VISIT EST Diagnosis: Urinary tract infection, site not specified[ICD10: N39.0] Diagnosis: Other insomnia[ICD10: G47.09] Diagnosis: Other fatigue[ICD10: R53.83] Diagnosis: Other forms of dyspnea[ICD10: R06.09] Diagnosis: Chronic atrial fibrillation[ICD10: I48.2] Diagnosis: Restless legs syndrome[ICD10: G25.81] [facility]: 02521 03/26/2018 ([id number]) OFFICE/OUTPATIENT VISIT EST Diagnosis: Altered mental status, unspecified[ICD10: R41.82] Diagnosis: intermediate (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[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] Diagnosis: Hematuria, unspecified[ICD10: R31.9] [facility]havna Camacho [facility]: 50764 03/15/2018 ([id number]) NURSE/OUTPATIENT VISIT EST Diagnosis: Urinary tract infection, site not specified[ICD10: N39.0] [facility]yn [facility]: 26410 02/06/2018 OFFICE/OUTPATIENT VISIT NEW Diagnosis: intermediate (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[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] Diagnosis: Essential (primary) hypertension[ICD10: I10] Diagnosis: Mixed hyperlipidemia[ICD10: E78.2] Diagnosis: Other fatigue[ICD10: R53.83] Diagnosis: Cardiac arrhythmia, unspecified[ICD10: I49.9] Diagnosis: Generalized abdominal pain[ICD10: R10.84] Diagnosis: Urinary tract infection, site not specified[ICD10: N39.0] Diagnosis: Other insomnia[ICD10: G47.09] Bhavna [facility] CPT-4: 85900 01/30/2018 Plan of Care Planned Activity Notes [...] R35.8 11/19/2019 Patient Education: Colace- OptimizeRX Coupon [id number] https://www.[employer]Quest/samplemd/resources/getResource/61/[email or web address] Completed 11/19/2019 Visit Diagnosis Plan: Encounter for [facility] adult medical examination with abnormal findings [...] I10 09/25/2019 Appointment: Jalyn Daily WPtel[facility] [phone] [facility] [id number] [place] Annual Well Visit 09/25/2019 Care Plan: COMPREHEN [place]AB[place] : 780[address]-5 Pending 09/22/2019 Care Plan: COMPLETE CBC W/AUTO DIFF WBC LOINC : 48303-3 Pending 09/22/2019 Appointment: Bhavna Escalante [address] pt. feeling better and still had [...] : K57.32 08/26/2019 Appointment: Jalyn Daily WPtel: [address] [place], [place] [phone] ACUTE ILLNESS 08/26/2019 Appointment: Jalyn Daily WPtel: [address] [place], [place] [phone] originally 4 mo follow up CANCELED 2018 Visit Diagnosis Plan: Clostridium difficile colitis Di scussion: Vancomycin daily for another week then 125mg every 3 days for 1 month then stop Fwup in September ICD-9 : 008.45 ICD-10 : A04.72 05/07/2019 Appointment: Jalyn Daily WPtel: [address] [place], [place] [phone] FOLLOW UP 05/07/2019 Visit Diagnosis Plan: Edema [...] : A04.72 04/23/2019 Appointment: Jalyn Daily WPtel: [address] [place], [place] [phone] Hospital Follow Up 04/23/2019 Appointment: Bhavna Escalante [address] [place], [place] [phone] CANCELED 04/15/2019 Visit Diagnosis Plan: Left lower quadrant pain Discuss ion: will start with abdominal xray to rule out acute obstruction/constipation. if no acute findings, will treat as diverticulitis due to patient's past history. ICD-9 : 789.04 ICD-10 : R10.32 03/27/2019 Appointment: Bhavna Escalante [address] [place] [address] ACUTE ILLNESS 03/27/2019 Visit Diagnosis Plan: Acute kidney failure, unspecifie d Discussion: Was given Meloxicam at urgent care--discussed no NSAIDs, hydrate, repeat Chem 7 in 1 week ICD-9 : 584.9 ICD-10 : N17.9 03/18/2019 Appointment: Jalyn Daily WPtel: [address] [place] [address] ACUTE ILLNESS 03/18/2019 Visit Diagnosis Plan: Abdominal distension (gaseous) D iscussion: Trial of Zenpep q AC ICD-9 : 787.3 ICD-10 : R14.0 02/12/2019 Visit Diagnosis Plan: Essential (primary) hypertension Discussion: Stable ICD-9 : 401.9 ICD-10 : I10 02/12/2019 Visit Diagnosis Plan: Chronic atrial fibrillation Disc ussion: Following routinely with Cardiology ICD-9 : 427.31 ICD-10 : I48.2 02/12/2019 Appointment: Jalyn Daily WPtel: [address] [place] [address] FOLLOW UP 02/12/2019 Appointment: Bhavna Escalante [address] [place] [address] [place] Canceled per guillermina. sending for mri [...] ICD-10 : M54.5 12/25/2018 Appointment: Bhavna Escalante [address] [place] [address] ACUTE ILLNESS 12/25/2018 Visit Diagnosis Plan: Low [...] ICD-10 : M54.5 12/12/2018 Appointment: Bhavna Escalante [address] [place] [address] ACUTE ILLNESS 12/12/2018 Patient Education: cyclobenzaprine- OptimizeRX Coupon [id number] https://www.[employer]Quest/samplePathway Pharmaceuticals/resources/getResource/61/[email or web address] Completed 12/12/2018 Appointment: Bhavna Escalante [address] [place] [address] CANCELED 12/06/2018 Visit Diagnosis Plan: Chronic atrial fibrillation Disc ussion: Cardiology monitoring PT/INR Follow Up: 4 months ICD-9 : 427.31 ICD-10 : I48.2 10/10/2018 Visit Diagnosis Plan: Anemia, unspecified Discussion: Update CBC ICD-9 : 285.9 ICD-10 : D64.9 10/10/2018 Visit Diagnosis Plan: Other fatigue Discussion: Increa se activity--discussed 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 ICD-9 : 780.79 ICD-10 : R53.83 10/10/2018 Appointment: Jalyn Daily WPtel: [address] [place] [address] [place] FOLLOW UP 10/10/2018 Visit Diagnosis Plan: [...] : I50.43 08/27/2018 Appointment: Jalyn Daily WPtel: [facility] [place] [address] [place] FOLLOW UP 08/27/2018 Visit Diagnosis Plan: [...] ICD-10 : I48.2 08/13/2018 Visit Diagnosis 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: 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 Discussion: Increase Coumadin to 5mg po daily and repeat PT/INR in 2 weeks ICD-9 : V58.61 ICD-10 : Z79.01 08/13/2018 Appointment: Jalyn Daily WPtel[facility] [phone] [facility] [place] FOLLOW UP 08/13/2018 Patient Education: bumetanide- OptimizeRX Coupon [phone] https://www.[employer]Quest/[employer]/resources/getResource/61/[email or web address]-hz Completed 08/13/2018 Patient Education: levothyroxine- OptimizeRX Coupon [id number] https://www.[employer]Quest/samplemd/resources/getResource/61/[email or web address]-af Completed 08/13/2018 Patient Education: warfarin- [employer] C[employer]on [id number] https://www.[employer]/samplemd/resources/getResource/61/13879780-hi20-12g7-5u Completed 08/13/2018 Patient Education: pantoprazole- [employer] C[employer]on [phone] [id number] https://www.[employer]/Kaizen Platform/resources/getResource/61/a7277m51-91t2-55ia-7l Completed 08/13/2018 Patient Education: spironolactone- [employer] C[employer]on [phone] [id number] https://www.[employer] Platform/resources/getResource/61/9cx337a3-d412-5604-nc Completed 08/13/2018 Visit Diagnosis Plan: Anemia, unspecified [...] I50.43 07/10/2018 Appointment: Jalyn Daily WPtel: [phone] [facility] [address] FOLLOW UP 07/10/2018 Visit Diagnosis Plan: [...] : I48.2 05/06/2018 Appointment: Jalyn Daily WPtel: [facility] [place] [place] FOLLOW UP 05/06/2018 Visit Diagnosis Plan: [...] ICD-10 : R60.0 04/17/2018 Appointment: Bhavna Escalante [address] [place], [place] [id number] ACUTE ILLNESS 04/17/2018 Patient Education: Patient Medication Summary Completed 04/17/2018 Care Plan: CT ABDOMEN W/O & W/DYE LOINC : 77698-5 Pending 04/17/2018 Care Plan: CT PELVIS W/O & W/DYE LOINC : 56053-5 Pending 04/17/2018 Appointment: Jalyn Daily WPtel: [address] [place], [place] [id number] [place] CANCELED 04/10/2018 Visit Diagnosis Plan: Urinary [...] : R06.09 03/26/2018 Appointment: Jalyn Daily WPtel: [address] [place], [place] [id number] ER Follow UP 03/26/2018 Patient Education: Patient [...] ICD-10 : R41.82 03/15/2018 Appointment: Bhavna Escalante [address] [place] [address] ACUTE ILLNESS 03/15/2018 Patient Education: Patient Medication Summary Completed 03/15/2018 Visit Diagnosis Plan: Primary insomnia Discussion: Tri al of elavil 10mg po q HS ICD-9 : 780.52 ICD-10 : F51.01 02/26/2018 Visit Diagnosis Plan: Functional dyspepsia Discussion: Increase protonix to 40mg po BID Follow Up: 1 months ICD-9 : 536.8 ICD-10 : K30 02/26/2018 Appointment: Jalyn Daily WPtel: [address] [place] [address] [place] WELCOME TO MEDICARE 02/26/2018 Patient Education: Patient Medication Summary Completed 02/26/2018 Referral: Song Noonan WPtel: [address] [place] [address] [place] Referral Initiated 02/19/2018 Appointment: Jalyn Daily WPtel: [address] [place] [address] [place] LAB 02/06/2018 Patient Education: Patient Medication Summary Completed 02/06/2018 Appointment: Jalyn Daily WPtel: [address] [place] [address] [place] CANCELED 02/01/2018 Care Plan: US EXAM ABDOM COMPLETE liver LOINC : 00775-4 Pending 01/31/2018 Visit Diagnosis Plan: Other fatigue Discussion: will o rder fasting blood work to assess for any anemia or infection especially due to recent surgery and bleeding risks. ICD-9 : 780.79 ICD-10 : R53.83 01/30/2018 Visit Diagnosis Plan: intermediate (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 Discussion: instructed [...] : I10 01/30/2018 Appointment: Bhavna Escalante [address] [place], [place] [address] NEW PATIENT 01/30/2018 Patient Education: Patient Medication Summary Completed 01/30/2018 Instructions No Instructions Medical Equipment No Medical Equipment data Health Concerns Section Health Concerns data not found Goals Section Goals data not found Interventions Section Interventions data not found Health Status Evaluations/Outcomes Section Health Status Evaluations/Outcomes data not found Advance Directives No Advance Directive data
--- OUTSIDE RECORDS SUMMARY | 2020-02-10 14:05 | XMS REPORT | CCD ---
Author Author Riana Escalante Organization JALYN SRuben DAILY DO [facility] Address [address] [place] [address] Phone Unavailable Care Team Providers Care Refrigerator Tester Name Role Phone PP Unavailable CCM Unavailable Summary Purpose Interface Exchange Insurance Providers Payer name Policy type / Coverage type Covered alliance party ID Effective Begin Date Effective End Date WPS MEDICARE PART B [place] Medicare Part B [id number] 2017 Unknown Cigna Medicare Part B [id number] 2017 Unknown Family History Family History data not found Social History Social History Element Codes Description Effective Dates Tobacco history SNOMED CT: 466058803 Never smoker 01/30/[address]: 565492415 Never drinks alcohol 2017 Allergies, Adverse Reactions, [...] hypertension ICD-9: 401.9 ICD-10: I10 01/30/2018 Active halfway (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 ICD-9: V58.6 1 [...] Fill Instructions Colace 100 mg capsule RxNorm: 5579637 1 Capsule(s) Oral three ti mes a day 11/19/2019 12/19/2019 Active warfarin 5 mg tablet RxNorm: 057663 1 Tablet(s) Oral MW F and 1/2 tablet (2.5mg) , [facility] [place] 09/30/2019 12/29/2019 Active levothyroxine 25 mcg tablet RxNorm: 613759 TAKE ONE TABLET BY M OUTH DAILY 09/30/2019 No Stop Date Active potassium chloride ER 10 mEq capsule,extended release RxNorm : 712316 1 Capsule(s) Oral two times a day on and 1 capsule 09/26/2019 09/26/2019 Inactive vancomycin 125 mg capsule RxNorm: 503916 2 Capsule(s) Oral Q8H 08/0909/05/2019 Inactive warfarin 5 mg tablet RxNorm: 157211 1 Tablet(s) Oral MW F and 1/2 tablet (2.5mg) , Sun & Sun08/26/2019 09/29/2019 Inactive Colace 100 mg capsule RxNorm: 5849263 1 Capsule(s) Oral QD 08/26/19 20 11/18/2019 Inactive levothyroxine 25 mcg tablet RxNorm: 947601 1 Tablet(s) PO QD 201909/29/2019 Inactive spironolactone 25 mg tablet RxNorm: 402983 TAKE 1 TABLET BY DOUGLAS TH TWICE DAILY 06/22/2019 09/19/2019 Inactive losartan 25 mg tablet RxNorm: 541115 TAKE 1 TABLET BY M OUTH ONCE DAILY IN THE MORNING 05/26/2019 No Stop Date Active bumetanide 1 mg tablet RxNorm: 444034 TAKE 1 TABLET BY MOUTH TWICE DAILY AT 6AM AND 6PM 05/23/2019 No Stop Date Active vancomycin 125 mg capsule RxNorm: 034978 1 Capsule(s) Oral Q3D 04/1008/25/2019 Inactive pantoprazole 40 mg tablet,delayed release RxNorm: 377289 1-2 Ta blet(s) Oral QD 04/23/2019 05/23/2019 Inactive potassium chloride ER 10 mEq capsule,extended release RxNorm : 826257 1 Capsule(s) Oral QD 04/23/2019 09/25/2019 Inactive warfarin 5 mg tablet RxNorm: 282489 Tablet(s) Oral Take 1 tablet (5mg) by mouth on and Sun then 1/2 tablet (2.5mg) on Sun, Sun, Th, Sat and Sun 04/23/2019 08/25/2019 Inactive temazepam 15 mg capsule RxNorm: 916730 TAKE 1 TO 2 CAPS ULES BY MOUTH AT BEDTIME NEEDED FOR SLEEP 04/08/2019 09/25/2019 Inactive Cipro 250 mg tablet RxNorm: 692967 1 Tablet(s) Oral two times a day 03/27/2019 04/03/2019 Inactive metronidazole 500 mg tablet RxNorm: 320840 1 Tablet(s) Oral thr ee times a day 03/27/2019 04/03/2019 Inactive bumetanide 1 mg tablet RxNorm: 029522 1 Tablet(s) PO BID (6am a nd 6pm) 02/13/2019 05/13/2019 Inactive levothyroxine 25 mcg tablet RxNorm: 867928 1 Tablet(s) PO QD 201807/13/2019 Inactive warfarin 5 mg tablet RxNorm: 563511 1 TABLET(S) PO , SUN, TH, SAT AND SUN AND 1/2 TABLET ON 02/04/2019 02/11/2019 Inactive Kendra ent requests 90 days supply warfarin 5 mg tablet RxNorm: 126635 1 TABLET(S) PO TUES , WED, THURS, SAT AND SUN AND 1/2 TABLET ON 02/03/2019 02/03/2019 Inactive Kendra ent requests 90 days supply levothyroxine 25 mcg tablet RxNorm: 792292 1 Tablet(s) PO QD 201802/03/2019 Inactive warfarin 5 mg tablet RxNorm: 700686 1 Tablet(s) PO Tues , Wed, Thurs, Sat and Sun and 1/2 tablet on 01/31/2019 02/02/2019 Inactive temazepam 15 mg capsule RxNorm: 890102 TAKE 1 TO 2 CAPS ULES BY MOUTH AT BEDTIME NEEDED FOR SLEEP 01/31/2019 04/07/2019 Inactive cyclobenzaprine 10 mg tablet RxNorm: 147299 1 Tablet(s) PO Q8H as needed 12/30/2018 09/25/2019 Inactive losartan 25 mg tablet RxNorm: 630614 1 Tablet(s) PO QAM 12/27/2018 Inactive Lidoderm 5 % topical patch RxNorm: 7611902 1 Application TOP Q12H and then off for 12 hours 12/25/2018 01/23/2019 Inactive Lidoderm 5 % topical patch RxNorm: 8261876 1 Application TOP Q12H and then off for 12 hours 12/25/2018 12/24/2018 Inactive cyclobenzaprine 5 mg tablet RxNorm: 929535 1 Tablet(s) PO Q8H a s needed 12/12/2018 12/24/2018 Inactive spironolactone 25 mg tablet RxNorm: 116245 1 Tablet(s) PO BID 09/2006/16/2019 Inactive change in directions to BID pantoprazole 40 mg tablet,delayed release RxNorm: 622450 1 Tabl et(s) PO QD 09/20/2018 04/22/2019 Inactive Patient requests 9 0 days supply spironolactone 25 mg tablet RxNorm: 798818 1 Tablet(s) PO BID 08/2609/19/2018 Inactive change in directions to BID pantoprazole 40 mg tablet,delayed release RxNorm: 174654 1 Tabl et(s) PO QD 08/15/2018 09/19/2018 Inactive Patient requests 9 0 days supply carvedilol 6.25 mg tablet RxNorm: 838275 1 Tablet(s) PO BID 019 02/08/2019 Inactive pantoprazole 40 mg tablet,delayed release RxNorm: 674429 1 Tablet(s) PO QD 1 TABLET(S) PO BID 08/13/2018 08/15/2018 Inactive Patient reque sts 90 days supply bumetanide 1 mg tablet RxNorm: 669524 1 Tablet(s) PO BID (6am a nd 6pm) 08/13/2018 02/08/2019 Inactive bumetanide 0.5 mg tablet RxNorm: 639951 1 Tablet(s) PO QPM three days a week--Sunday, Sun, Sunday instead of 1mg dose in evening 08/13/201812/2018 Inactive levothyroxine 25 mcg tablet RxNorm: 627374 1 Tablet(s) PO QD 201801/30/2019 Inactive spironolactone 25 mg tablet RxNorm: 605710 1 Tablet(s) PO QD 201808/25/2018 Inactive losartan 25 mg tablet RxNorm: 703434 1 Tablet(s) PO QAM 08/13/2018 Inactive warfarin 5 mg tablet RxNorm: 465028 1 Tablet(s) PO QD 08/13/201808/09 Inactive pantoprazole 40 mg tablet,delayed release RxNorm: 199989 1 TABL ET(S) PO BID 08/02/2018 08/12/2018 Inactive Patient requests 9 0 days supply temazepam 15 mg capsule RxNorm: 775234 1-2 Capsule(s) P O QHS as needed for sleep 2018 01/31/2019 Inactive Restoril 15 mg capsule RxNorm: 640904 1-2 Capsule(s) PO QHS as needed for sleep 06/04/2018 08/12/2018 Inactive potassium chloride ER 10 mEq capsule,extended release RxNorm : 367245 2 CAPSULE(S) PO QD 05/07/2018 08/04/2018 Inactive Patient reque sts 90 days supply temazepam 22.5 mg capsule RxNorm: 408953 1 Capsule(s) P O QHS as needed for sleep 05/06/2018 08/12/2018 Inactive potassium chloride ER 10 mEq capsule,extended release RxNorm : 146585 2 Capsule(s) PO QD 05/06/2018 05/06/2018 Inactive ropinirole 1 mg tablet RxNorm: 685365 1 TABLET(S) PO QHS FOR RE STLESS LEGS 03/27/2018 04/25/2018 Inactive Patient requests 9 0 days supply ropinirole 1 mg tablet RxNorm: 176230 1 Tablet(s) PO QHS for re stless legs 03/26/2018 03/26/2018 Inactive cefdinir 300 mg capsule RxNorm: 054831 1 Capsule(s) PO BID 03/26/20 18 03/30/2018 Inactive temazepam 15 mg capsule RxNorm: 371104 1 Capsule(s) PO QHS as neede d 03/20/2018 03/25/2018 Inactive Lunesta 3 mg tablet RxNorm: 281711 1 Tablet(s) PO QHS as needed for sleep 03/04/2018 03/19/2018 Inactive amitriptyline 10 mg tablet RxNorm: 452738 1 Tablet(s) PO QHS fo r sleep 02/26/2018 03/03/2018 Inactive escitalopram 20 mg tablet RxNorm: 113211 1 Tablet(s) PO QHS 018 08/12/2018 Inactive pantoprazole 40 mg tablet,delayed release RxNorm: 502088 1 Tabl et(s) PO BID 02/26/2018 04/26/2018 Inactive Coumadin 2.5 mg tablet RxNorm: 050718 1 Tablet(s) PO MWF 02/18/2018 0 07/22/2018 Inactive amiodarone 200 mg tablet RxNorm: 704590 1 Tablet(s) PO QD No Start Da te Active colestipol 1 gram tablet RxNorm: 2188633 1 Tablet(s) PO BID No Start Date Active pantoprazole 40 mg tablet,delayed release RxNorm: 489978 1 Tabl et(s) PO QD No Start Date Active pantoprazole 40 mg tablet,delayed release RxNorm: 316383 1 Tabl et(s) PO QD No Start Date 02/25/2018 Inactive bumetanide 1 mg tablet RxNorm: 880361 1 Tablet(s) PO BID (6am a nd 6pm) No Start Date 08/12/2018 Inactive potassium chloride ER 10 mEq tablet,extended release RxNorm: 734599 1 Tablet(s) PO QD No Start Date 02/11/2019 Inactive levothyroxine 25 mcg tablet RxNorm: 386983 1 Tablet(s) PO QD No Sta rt Date 08/12/2018 Inactive spironolactone 25 mg tablet RxNorm: 326900 1 Tablet(s) PO QD No Sta rt Date 08/12/2018 Inactive warfarin 5 mg tablet RxNorm: 858692 1 Tablet(s) PO MWF No Start Date 08/12/2018 Inactive warfarin 5 mg tablet RxNorm: 370276 1 Tablet(s) PO Tues , Wed, Th, Sat and Sun then 1/2 tablet (2.5mg) on Mon & Fri No Start Date 08/12/2018 Inactive losartan 25 mg tablet RxNorm: 686592 1 Tablet(s) PO QAM No Start Da te 08/12/2018 Inactive carvedilol 6.25 mg tablet RxNorm: 425659 1 Tablet(s) PO BID No Star t Date 08/12/2018 Inactive warfarin 2.5 mg tablet RxNorm: 827904 1 Tablet(s) PO Tues, Thur s, Sat and Sun No Start Date 08/12/2018 Inactive Coumadin 2.5 mg tablet RxNorm: 445545 Tablet(s) Sun and Sun PO No Start Date 02/17/2018 Inactive Children's Multivitamin with Iron tablet RxNorm: 1 Table t(s) PO QD No Start Date 04/22/2019 Inactive potassium chloride ER 20 mEq tablet,extended release(p art/cryst) RxNorm: 1235590 2 Tablet(s) PO QD No Start Date 05/05/2018 Inactive Coumadin 5 mg tablet RxNorm: 837933 Tablet(s) PO No Start Date 2017 Inactive mexiletine 200 mg capsule RxNorm: 5419482 1 Capsule(s) PO BID No St art Date 03/25/2018 Inactive ferrous sulfate 325 mg (65 mg iron) tablet RxNorm: 284646 1 Tab let(s) PO QD No Start Date 07/22/2018 Inactive cyclobenzaprine 10 mg tablet RxNorm: 939593 1 Tablet(s) PO Q8H as needed No Start Date 12/29/2018 Inactive potassium chloride ER 10 mEq capsule,extended release RxNorm : 680787 2 Capsule(s) PO QD No Start Date 12/11/2018 Inactive Coumadin 5 mg tablet RxNorm: 531986 1 Tablet(s) PO Tues, , Sat and Sun No Start Date 07/22/2018 Inactive Restoril 15 mg capsule RxNorm: 552857 1-2 Capsule(s) PO QHS as needed for sleep No Start Date 05/05/2018 Inactive metoprolol succinate ER 25 mg tablet,extended release 24 hr RxNorm: 003946 1 Tablet(s) PO QD No Start Date 08/12/2018 Inactive Entresto 24 mg-26 mg tablet RxNorm: 2498158 1 Tablet(s) PO BID No S tart Date 08/12/2018 Inactive warfarin 5 mg tablet RxNorm: 629977 1 Tablet(s) PO , Sun, , Sat and Sun and 1/2 tablet on Sun/Sun No Start Date 01/30/2019 Inactive amiodarone 200 mg tablet RxNorm: 764258 2 Tablet(s) PO BID No Start Date 10/09/2018 Inactive furosemide 20 mg tablet RxNorm: 873351 1 Tablet(s) PO QD No Start D ate 08/12/2018 Inactive amiodarone 200 mg tablet RxNorm: 492270 1 Tablet(s) PO BID No Start Date 08/26/2018 Inactive atorvastatin 40 mg tablet RxNorm: 284092 1 Tablet(s) PO QD No Start Date 08/12/2018 Inactive warfarin 5 mg tablet RxNorm: 036713 1/2 Tablet(s) PO on Sun, Sun, Sun, Sun then 1 tablet on Sun, , Sat No Start Date 04/22/2019 Inactive Medication Administered No Medication Administered data Immunizations Vaccine Codes Date Status Pneumovax CVX: 33 05/14/2019 Hepatitis A CVX: 83 03/25/2019 Influenza CVX: 135 03/25/2019 Results Observation Observation Code Item Item Code Result Date S ervice Location UA W/MICR 55285 UA Urine Appear Normal 02/06/2018 Unk nown UA W/MICR 40671 UA Protein 3+ 02/06/2018 Unknown UA W/MICR 34130 UA Hemoglobin Trace 02/06/2018 Unkno wn UA W/MICR 81118 UA Glucose Negative 02/06/2018 Unknown UA W/MICR 55736 UA Ketones Negative 02/06/2018 Unknown UA W/MICR 60816 UA pH 5.5 02/06/2018 Unknown UA W/MICR 53861 U Spec [place] 1.025 02/06/2018 Unkn own UA W/MICR 35306 UA Bilirubin Negative 02/06/2018 Unknow n UA W/MICR 37645 UA Leuk Esteras Trace 02/06/2018 Unk nown UA W/MICR 03067 UA Nitrite NEG 02/06/2018 Unknown UA W/MICR 34529 UA WBC/hpf 11-25 02/06/2018 Unknown UA W/MICR 81661 UA RBC hpf 0-5 02/06/2018 Unknown UA W/MICR 59265 UA Hyaline Cast 16-25 02/06/2018 Unk nown UA W/MICR 60131 UA Squam Epi Few 02/06/2018 Unknow n Procedures Procedure Codes Date INITIAL PREVENTIVE EXAM CPT-4: G0402 09/25/2019 URINALYSIS NONAUTO W/O SCOPE CPT-4: 87372 03/18/2019 URINE CULTURE/ COLONY COUNT CPT-4: 69783 03/18/2019 URINALYSIS NONAUTO W/O SCOPE CPT-4: 50636 12/12/2018 URINE CULTURE/ COLONY COUNT CPT-4: 68418 03/26/2018 URINALYSIS NONAUTO W/O SCOPE CPT-4: 78611 03/15/2018 INITIAL PREVENTIVE EXAM CPT-4: G0402 02/26/2018 URINALYSIS NONAUTO W/O SCOPE CPT-4: 15548 02/06/2018 URINE CULTURE/ COLONY COUNT CPT-4: 42204 02/06/2018 UA W/MICR CPT-4: 02267 02/06/2018 CUR TOBACCO NON-USER CPT-4: G8457 01/30/2018 REPAIR BLADDER & VAGINA CPT-4: 87279 01/06/2017 REPAIR OF RECTOCELE CPT-4: 90196 01/06/2017 BREAST SURGERY PROCEDURE CPT-4: 87561 Unknown LAPARO CHOLECYSTECTOMY/EXPLR CPT-4: 49141 Unknown HYSTERECTOMY/REVISE VAGINA CPT-4: 29426 Unknown Vital Signs Date Vital 11/19/2019 Blood [...] 1: 106/58 Code: 8480-6 BMI: 26.3 Code: 04537-6 Heart Rate 1: 72 bpm Height: 4'10" Respiratory Rate: 20 bpm SpO2: 97% Tempera ture: 36.6 (C) / 97.8 (F) Weight: 128 lbs 07/10/2018 Blood Pressure 1: 122/70 Code: 8480-6 BMI: 28.6 Code: 52389-3 Heart Rate 1: 80 bpm Height: 4'10" Respiratory Rate: 20 bpm SpO2: 96% Tempera ture: 36.9 (C) / 98.4 (F) Weight: 139 lbs 05/06/2018 Blood Pressure 1: 112/54 Code: 8480-6 BMI: 27.5 Code: 16705-2 Heart Rate 1: 80 bpm Height: 4'10" [...] 1: 146/80 Code: 8480-6 BMI: 30.0 Code: 76302-9 Heart Rate 1: 76 bpm Height: 4'10" Respiratory Rate: 20 bpm SpO2: 97% Tempera ture: 36.7 (C) / 98.1 (F) Weight: 146 lbs 02/26/2018 Blood Pressure 1: 126/80 Code: 8480-6 BMI: 29.6 Code: 93156-5 Heart Rate 1: 80 bpm Height: 4'10" Respiratory Rate: 18 bpm SpO2: 96% Tempera ture: 37.0 (C) / 98.6 (F) Weight: 144 lbs 01/30/2018 Blood Pressure 1: 120/78 Code: 8480-6 BMI: 29.6 Code: 72063-2 Heart Rate 1: 84 bpm Height: 4'10" Respiratory Rate: 20 bpm SpO2: 97% Tempera ture: 36.0 (C) / 96.8 (F) Weight: 144 lbs Functional Status No Functional Status data Reason For Visit Reason For Visit Effective Dates Notes dizziness 11/19/2019 Annual Checkup 09/25/2019 pt labs are scanned into chart abdominal pain 08/26/2019 follow up 05/07/2019 follow up 04/23/2019 [facility] abdominal pain 03/27/2019 left lower [...] up 07/10/2018 Hospital/ER fwup follow up 05/06/2018 [facility] abdominal pain 04/17/2018 follow up 03/26/2018 dizziness 03/15/2018 Patient had bladder biopsy on Sunday by Dr Noonan. states she has been holding her coumadin since Sunday insomnia 02/26/2018 blood in urine 02/06/2018 ~generic 01/30/2018 Establishing Care Encounters Encounter Performer Location Codes Date ([id number]) OFFICE/OUTPATIENT VISIT EST Diagnosis: Hypotension[ICD10: I95.9] Diagnosis: Dizziness and giddiness[ICD10: R42] Diagnosis: Polyuria[ICD10: R35.8] Jalyn Landeros [facility] CPT-4: 34112 11/19/2019 ([id number]) OFFICE/OUTPATIENT VISIT EST Diagnosis: Sigmoid diverticulitis[ICD10: K57.32] Jalyn DAILY [facility] CPT-4: 67533 08/26/2019 ([id number]) OFFICE/OUTPATIENT VISIT EST Diagnosis: Clostridium difficile colitis[ICD10: A04.72] Jalyn DAILY [facility] CPT-4: 42533 05/07/2019 ([id number]) OFFICE/OUTPATIENT VISIT EST Diagnosis: Clostridium difficile colitis[ICD10: A04.72] Diagnosis: Edema[ICD10: R60.9] [facility] 53042 04/23/2019 ([id number]) OFFICE/OUTPATIENT VISIT EST Diagnosis: Constipation[ICD10: K59.00] Diagnosis: Left lower quadrant pain[ICD10: R10.32] Bhavna Garydi THALIA AGUILAERIK JaniceRuben [facility] CPT-4: 07762 03/27/2019 ([id number]) OFFICE/OUTPATIENT VISIT EST Diagnosis: Acute kidney failure, unspecified[ICD10: N17.9] Jalyn DAILY [facility] CPT-4: 95742 03/18/2019 ([id number]) OFFICE/OUTPATIENT VISIT EST Diagnosis: Essential (primary) hypertension[ICD10: I10] Diagnosis: Chronic atrial fibrillation[ICD10: I48.2] Diagnosis: Mixed hyperlipidemia[ICD10: E78.2] Diagnosis: Other fatigue[ICD10: R53.83] Diagnosis: Abdominal distension (gaseous)[ICD10: R14.0] Jalyn CamachoRuben [facility] CPT-4: 14795 02/12/2019 ([id number]) OFFICE/OUTPATIENT VISIT EST Diagnosis: Low back pain[ICD10: M54.5] Bhavna Brarimalkhalif Martinez [facility] CPT-4: 33377 12/25/2018 ([id number]) OFFICE/OUTPATIENT VISIT EST Diagnosis: Low back pain[ICD10: M54.5] Bhavna JOE DO [facility] CPT-4: 39079 12/12/2018 ([id number]) OFFICE/OUTPATIENT VISIT EST Diagnosis: Anemia, unspecified[ICD10: D64.9] Diagnosis: Chronic atrial fibrillation[ICD10: I48.2] Diagnosis: Other fatigue[ICD10: R53.83] Jalyn DAILY PublishThis [facility] CPT-4: 22357 10/10/2018 ([id number]) OFFICE/OUTPATIENT VISIT EST Diagnosis: Acute on chronic combined systolic (congestive) and diastolic (congestive) heart failure[ICD10: I50.43] Diagnosis: Chronic atrial fibrillation[ICD10: I48.2] Jalyn DAILY PublishThis [facility] CPT-4: 07896 08/27/2018 ([id number]) OFFICE/OUTPATIENT VISIT EST Diagnosis: Chronic atrial fibrillation[ICD10: I48.2] 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] 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] Jalyn DAILY PublishThis [facility] CPT-4: 28706 08/13/2018 ([id number]) OFFICE/OUTPATIENT VISIT EST Diagnosis: Acute on chronic combined systolic (congestive) and diastolic (congestive) heart failure[ICD10: I50.43] Diagnosis: Essential (primary) hypertension[ICD10: I10] Diagnosis: Anemia, unspecified[ICD10: D64.9] Jalyn DAILY PublishThis [facility] CPT-4: 33522 07/10/2018 ([id number]) OFFICE/OUTPATIENT VISIT EST Diagnosis: Chronic atrial fibrillation[ICD10: I48.2] Diagnosis: Acute on chronic combined systolic (congestive) and diastolic (congestive) heart failure[ICD10: I50.43] Diagnosis: Localized edema[ICD10: R60.0] Jalyn DAILY PublishThis [facility] CPT-4: 68589 05/06/2018 ([id number]) OFFICE/OUTPATIENT VISIT EST Diagnosis: Generalized abdominal pain[ICD10: R10.84] Diagnosis: Pelvic and perineal pain[ICD10: R10.2] Diagnosis: Localized edema[ICD10: R60.0] Bhavna DAILY Publish[employer] [facility] CPT-4: 58878 04/17/2018 ([id number]) OFFICE/OUTPATIENT VISIT EST Diagnosis: Urinary tract infection, site not specified[ICD10: N39.0] Diagnosis: Other insomnia[ICD10: G47.09] Diagnosis: Other fatigue[ICD10: R53.83] Diagnosis: Other forms of dyspnea[ICD10: R06.09] Diagnosis: Chronic atrial fibrillation[ICD10: I48.2] Diagnosis: Restless legs syndrome[ICD10: G25.81] Jalyn Abimbola DAILY Publish[employer] [facility] CPT-4: 91170 03/26/2018 ([id number]) OFFICE/OUTPATIENT VISIT EST Diagnosis: Altered mental status, unspecified[ICD10: R41.82] Diagnosis: halfway (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[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] Diagnosis: Hematuria, unspecified[ICD10: R31.9] Bhavna DAILY PublishThis [facility] CPT-4: 37524 03/15/2018 ([id number]) NURSE/OUTPATIENT VISIT EST Diagnosis: Urinary tract infection, site not specified[ICD10: N39.0] Jalyn Bullnahidnéstor DAILY PublishThis [facility] CPT-4: 50032 02/06/2018 OFFICE/OUTPATIENT VISIT NEW Diagnosis: halfway (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[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] Diagnosis: Essential (primary) hypertension[ICD10: I10] Diagnosis: Mixed hyperlipidemia[ICD10: E78.2] Diagnosis: Other fatigue[ICD10: R53.83] Diagnosis: Cardiac arrhythmia, unspecified[ICD10: I49.9] Diagnosis: Generalized abdominal pain[ICD10: R10.84] Diagnosis: Urinary tract infection, site not specified[ICD10: N39.0] Diagnosis: Other insomnia[ICD10: G47.09] Bhavna DAILY PublishThis [facility] CPT-4: 61937 01/30/2018 Plan of Care Planned Activity Notes [...] R35.8 11/19/2019 Patient Education: Colace- OptimizeRX Coupon [id number] https://www.Wantster.com/sampleHortor/resources/getResource/61/89l3q7e0-n48l-2ja7-14 Completed 11/19/2019 Visit Diagnosis Plan: Encounter for [facility] adult medical examination with abnormal findings [...] I10 09/25/2019 Appointment: Jalyn [facility] [phone] [facility] [facility] 09/25/2019 Care Plan: COMPREH[place]AB[place] : 12331-6 Pending 09/22/2019 Care Plan: COMPLETE CBC W/AUTO DIFF WBC LOINC : 85128-0 Pending 09/22/2019 Appointment: Bhavna Escalante [address] pt[address] feeling better and still had [...] : K57.32 08/26/2019 Appointment: Jalyn Daily WPtel: [address] [place], [place] [phone] ACUTE ILLNESS 08/26/2019 Appointment: Jalyn Daily WPtel: [address] [place], [place] [phone] originally 4 mo follow up CANCELED 2018 Visit Diagnosis Plan: Clostridium difficile colitis Di scussion: Vancomycin daily for another week then 125mg every 3 days for 1 month then stop Fwup in September ICD-9 : 008.45 ICD-10 : A04.72 05/07/2019 Appointment: Jalyn Daily WPtel: [address] [place] [address] FOLLOW UP 05/07/2019 Visit Diagnosis Plan: Edema [...] : A04.72 04/23/2019 Appointment: Jalyn Daily WPtel: [address] [place], [place] [phone] Hospital Follow Up 04/23/2019 Appointment: Bhavna Escalante [address] [place] [address] US CANCELED 04/15/2019 Visit Diagnosis Plan: Left lower quadrant pain Discuss ion: will start with abdominal xray to rule out acute obstruction/constipation. if no acute findings, will treat as diverticulitis due to patient's past history. ICD-9 : 789.04 ICD-10 : R10.32 03/27/2019 Appointment: Bhavna Escalante [address] [id number] ACUTE ILLNESS 03/27/2019 Visit Diagnosis Plan: Acute kidney failure, unspecifie d Discussion: Was given Meloxicam at urgent care--discussed no NSAIDs, hydrate, repeat Chem 7 in 1 week ICD-9 : 584.9 ICD-10 : N17.9 03/18/2019 Appointment: Jalyn Daily WPtel: [address] [place] [address] ACUTE ILLNESS 03/18/2019 Visit Diagnosis Plan: Abdominal distension (gaseous) D iscussion: Trial of Zenpep q AC ICD-9 : 787.3 ICD-10 : R14.0 02/12/2019 Visit Diagnosis Plan: Essential (primary) hypertension Discussion: Stable ICD-9 : 401.9 ICD-10 : I10 02/12/2019 Visit Diagnosis Plan: Chronic atrial fibrillation Disc ussion: Following routinely with Cardiology ICD-9 : 427.31 ICD-10 : I48.2 02/12/2019 Appointment: Jalyn Daily WPtel: [address] [place] [address] US FOLLOW UP 02/12/2019 Appointment: Bhavna Escalante [address] [place] [address] [place] Canceled per guillermina. sending for mri [...] ICD-10 : M54.5 12/25/2018 Appointment: Bhavna Escalante [address] [place] [address] ACUTE ILLNESS 12/25/2018 Visit Diagnosis Plan: Low [...] ICD-10 : M54.5 12/12/2018 Appointment: Bhavna Escalante [address] [place] [address] ACUTE ILLNESS 12/12/2018 Patient Education: cyclobenzaprine- OptimizeRX Coupon [id number] https://www.BidThatProject/Wantster/resources/getResource/61/ea6019v9-[email or web address]-f1 Completed 12/12/2018 Appointment: Bhavna Escalante [address] [place] [address] US CANCELED 12/06/2018 Visit Diagnosis Plan: Chronic [...] R53.83 10/10/2018 Appointment: Jalyn Daily WPtel: [address] [place] [address] US FOLLOW UP 10/10/2018 Visit Diagnosis Plan: [...] I50.43 08/27/2018 Appointment: Jalyn Daily WPtel: [facility] [address] [place] FOLLOW UP 08/27/2018 Visit Diagnosis Plan: [...] Z79.01 08/13/2018 Appointment: Jalyn Daily WPtel[facility] [phone] [facility] FO[facility] 08/13/2018 Patient Education: bumetanide- OptimizeRX Coupon [phone] https://www.BidThatProject/Wantster/resources/getResource/61/3xh51n09-1ln1-7f91-go Completed 08/13/2018 Patient Education: levothyroxine- OptimizeRX Coupon [phone] [phone] https://www.BidThatProject/Wantster/resources/getResource/61/2890979l-3224-9o23-so Completed 08/13/2018 Patient Education: warfarin- OptimizeRX Coupon [id number] https://www.BidThatProject/Wantster/resources/getResource/61/86271227-re60-90w9-2c Completed 08/13/2018 Patient Education: pantoprazole- OptimizeRX Coupon [phone] https://www.BidThatProject/Wantster/resources/getResource/61/k2818b15-36y7-52sz-3q Completed 08/13/2018 Patient Education: spironolactone- OptimizeRX Coupon [id number] [email or web address] Completed 08/13/2018 Visit Diagnosis Plan: Anemia, unspecified [...] : I50.43 07/10/2018 Appointment: Jalyn Daily WPtel: [address] [place] [address] 2nd FOLLOW UP 07/10/2018 Visit Diagnosis Plan: [...] I48.2 05/06/2018 Appointment: Jalyn Daily WPtel: [address] [place] [address] [place] FOLLOW UP 05/06/2018 Visit Diagnosis Plan: [...] ICD-10 : R60.0 04/17/2018 Appointment: Bhavna Escalante [address] [place] [address] ACUTE ILLNESS 04/17/2018 Patient Education: Patient Medication Summary Completed 04/17/2018 Care Plan: CT ABDOMEN W/O & W/DYE LOINC : 52220-7 Pending 04/17/2018 Care Plan: CT PELVIS W/O & W/DYE LOINC : 81194-0 Pending 04/17/2018 [facility] [phone] [id number] [place] CANCELED 04/10/2018 Visit Diagnosis Plan: Urinary [...] R06.09 03/26/2018 Appointment: [facility] Daily [facility] [phone] [id number] [facility] Follow UP 03/26/2018 Patient Education: Patient [...] ICD-10 : R41.82 03/15/2018 Appointment: Bhavna Escalante [address] [place] [address] ACUTE ILLNESS 03/15/2018 Patient Education: Patient Medication Summary Completed 03/15/2018 Visit Diagnosis Plan: Primary insomnia Discussion: Tri al of elavil 10mg po q HS ICD-9 : 780.52 ICD-10 : F51.01 02/26/2018 Visit Diagnosis Plan: Functional dyspepsia Discussion: Increase protonix to 40mg po BID Follow Up: 1 months ICD-9 : 536.8 ICD-10 : K30 02/26/2018 Appointment: Jalyn Daily WPtel: [address] [place] [address] WELCOME TO MEDICARE 02/26/2018 Patient Education: Patient Medication Summary Completed 02/26/2018 Referral: Song Noonan WPtel: [address] [place] [address] [place] Referral Initiated 02/19/2018 Appointment: Jalyn Daily WPtel: [address] [place], [place] [phone] [place] LAB 02/06/2018 Patient Education: Patient Medication Summary Completed 02/06/2018 Appointment: Jalyn Daily WPtel: [address] [place], [place] [phone] [place] CANCELED 02/01/2018 Care Plan: US EXAM ABDOM COMPLETE liver LOINC : 10962-6 Pending 01/31/2018 Visit Diagnosis Plan: Other fatigue [...] ICD-10 : I10 01/30/2018 Appointment: Bhavna Escalante [address] [place], [place] [id number] NEW PATIENT 01/30/2018 [...]
--- OUTSIDE RECORDS SUMMARY | 2020-02-10 14:05 | XMS REPORT | CCD ---
Author Author Riana Escalante Organization JALYN SRuben DAILY DO [facility] Address [address] [place] [address] Phone Unavailable Care Team Providers Care Sheep Shearer Name Role Phone PP Unavailable CCM Unavailable Summary Purpose Interface Exchange Insurance Providers Payer name Policy type / Coverage type Covered libertarian ID Effective Begin Date Effective End Date WPS MEDIC[place] PART B [place] Medicare Part B [id number] 2017 Unknown Cigna Medicare Part B [id number] 2017 Unknown Family History Family History data not found Social History Social History Element Codes Description Effective Dates Tobacco history SNOMED CT: 356504652 Never smoker 01/30/[address]: 676872619 Never drinks alcohol 2017 Allergies, Adverse Reactions, [...] hypertension ICD-9: 401.9 ICD-10: I10 01/30/2018 Active senior living (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 ICD-9: V58.6 1 [...] Fill Instructions Colace 100 mg capsule RxNorm: 3334107 1 Capsule(s) Oral three ti mes a day 11/19/2019 12/19/2019 Active warfarin 5 mg tablet RxNorm: 031642 1 Tablet(s) Oral MW F and 1/2 tablet (2.5mg) , [facility] [place] 09/30/2019 12/29/2019 Active levothyroxine 25 mcg tablet RxNorm: 867933 TAKE ONE TABLET BY M OUTH DAILY 09/30/2019 No Stop Date Active potassium chloride ER 10 mEq capsule,extended release RxNorm : 049166 1 Capsule(s) Oral two times a day on and 1 capsule 09/26/2019 09/26/2019 Inactive vancomycin 125 mg capsule RxNorm: 898098 2 Capsule(s) Oral Q8H 08/0909/05/2019 Inactive warfarin 5 mg tablet RxNorm: 650095 1 Tablet(s) Oral MW F and 1/2 tablet (2.5mg) , Sun & Sun08/26/2019 09/29/2019 Inactive Colace 100 mg capsule RxNorm: 2019984 1 Capsule(s) Oral QD 08/26/19 20 11/18/2019 Inactive levothyroxine 25 mcg tablet RxNorm: 966872 1 Tablet(s) PO QD 201909/29/2019 Inactive spironolactone 25 mg tablet RxNorm: 446177 TAKE 1 TABLET BY DOUGLAS TH TWICE DAILY 06/22/2019 09/19/2019 Inactive losartan 25 mg tablet RxNorm: 800902 TAKE 1 TABLET BY M OUTH ONCE DAILY IN THE MORNING 05/26/2019 No Stop Date Active bumetanide 1 mg tablet RxNorm: 397194 TAKE 1 TABLET BY MOUTH TWICE DAILY AT 6AM AND 6PM 05/23/2019 No Stop Date Active vancomycin 125 mg capsule RxNorm: 211931 1 Capsule(s) Oral Q3D 04/1008/25/2019 Inactive pantoprazole 40 mg tablet,delayed release RxNorm: 286701 1-2 Ta blet(s) Oral QD 04/23/2019 05/23/2019 Inactive potassium chloride ER 10 mEq capsule,extended release RxNorm : 656729 1 Capsule(s) Oral QD 04/23/2019 09/25/2019 Inactive warfarin 5 mg tablet RxNorm: 409074 Tablet(s) Oral Take 1 tablet (5mg) by mouth on and Sun then 1/2 tablet (2.5mg) on Sun, Sun, Th, Sat and Sun 04/23/2019 08/25/2019 Inactive temazepam 15 mg capsule RxNorm: 448798 TAKE 1 TO 2 CAPS ULES BY MOUTH AT BEDTIME NEEDED FOR SLEEP 04/08/2019 09/25/2019 Inactive Cipro 250 mg tablet RxNorm: 084858 1 Tablet(s) Oral two times a day 03/27/2019 04/03/2019 Inactive metronidazole 500 mg tablet RxNorm: 077706 1 Tablet(s) Oral thr ee times a day 03/27/2019 04/03/2019 Inactive bumetanide 1 mg tablet RxNorm: 282662 1 Tablet(s) PO BID (6am a nd 6pm) 02/13/2019 05/13/2019 Inactive levothyroxine 25 mcg tablet RxNorm: 878817 1 Tablet(s) PO QD 201807/13/2019 Inactive warfarin 5 mg tablet RxNorm: 825217 1 TABLET(S) PO , SUN, TH, SAT AND SUN AND 1/2 TABLET ON 02/04/2019 02/11/2019 Inactive Kendra ent requests 90 days supply warfarin 5 mg tablet RxNorm: 977391 1 TABLET(S) PO TUES , WED, THURS, SAT AND SUN AND 1/2 TABLET ON 02/03/2019 02/03/2019 Inactive Kendra ent requests 90 days supply levothyroxine 25 mcg tablet RxNorm: 689246 1 Tablet(s) PO QD 201802/03/2019 Inactive warfarin 5 mg tablet RxNorm: 269952 1 Tablet(s) PO Tues , Wed, Thurs, Sat and Sun and 1/2 tablet on 01/31/2019 02/02/2019 Inactive temazepam 15 mg capsule RxNorm: 391337 TAKE 1 TO 2 CAPS ULES BY MOUTH AT BEDTIME NEEDED FOR SLEEP 01/31/2019 04/07/2019 Inactive cyclobenzaprine 10 mg tablet RxNorm: 083264 1 Tablet(s) PO Q8H as needed 12/30/2018 09/25/2019 Inactive losartan 25 mg tablet RxNorm: 827686 1 Tablet(s) PO QAM 12/27/2018 Inactive Lidoderm 5 % topical patch RxNorm: 9721476 1 Application TOP Q12H and then off for 12 hours 12/25/2018 01/23/2019 Inactive Lidoderm 5 % topical patch RxNorm: 4239268 1 Application TOP Q12H and then off for 12 hours 12/25/2018 12/24/2018 Inactive cyclobenzaprine 5 mg tablet RxNorm: 626821 1 Tablet(s) PO Q8H a s needed 12/12/2018 12/24/2018 Inactive spironolactone 25 mg tablet RxNorm: 429948 1 Tablet(s) PO BID 09/2006/16/2019 Inactive change in directions to BID pantoprazole 40 mg tablet,delayed release RxNorm: 319201 1 Tabl et(s) PO QD 09/20/2018 04/22/2019 Inactive Patient requests 9 0 days supply spironolactone 25 mg tablet RxNorm: 818923 1 Tablet(s) PO BID 08/2609/19/2018 Inactive change in directions to BID pantoprazole 40 mg tablet,delayed release RxNorm: 432944 1 Tabl et(s) PO QD 08/15/2018 09/19/2018 Inactive Patient requests 9 0 days supply carvedilol 6.25 mg tablet RxNorm: 112948 1 Tablet(s) PO BID 019 02/08/2019 Inactive pantoprazole 40 mg tablet,delayed release RxNorm: 450751 1 Tablet(s) PO QD 1 TABLET(S) PO BID 08/13/2018 08/15/2018 Inactive Patient reque sts 90 days supply bumetanide 1 mg tablet RxNorm: 488529 1 Tablet(s) PO BID (6am a nd 6pm) 08/13/2018 02/08/2019 Inactive bumetanide 0.5 mg tablet RxNorm: 162220 1 Tablet(s) PO QPM three days a week--Sunday, Sun, Sunday instead of 1mg dose in evening 08/13/201812/2018 Inactive levothyroxine 25 mcg tablet RxNorm: 044826 1 Tablet(s) PO QD 201801/30/2019 Inactive spironolactone 25 mg tablet RxNorm: 325483 1 Tablet(s) PO QD 201808/25/2018 Inactive losartan 25 mg tablet RxNorm: 748258 1 Tablet(s) PO QAM 08/13/2018 Inactive warfarin 5 mg tablet RxNorm: 454258 1 Tablet(s) PO QD 08/13/201808/09 Inactive pantoprazole 40 mg tablet,delayed release RxNorm: 490117 1 TABL ET(S) PO BID 08/02/2018 08/12/2018 Inactive Patient requests 9 0 days supply temazepam 15 mg capsule RxNorm: 650933 1-2 Capsule(s) P O QHS as needed for sleep 2018 01/31/2019 Inactive Restoril 15 mg capsule RxNorm: 755828 1-2 Capsule(s) PO QHS as needed for sleep 06/04/2018 08/12/2018 Inactive potassium chloride ER 10 mEq capsule,extended release RxNorm : 098126 2 CAPSULE(S) PO QD 05/07/2018 08/04/2018 Inactive Patient reque sts 90 days supply temazepam 22.5 mg capsule RxNorm: 210192 1 Capsule(s) P O QHS as needed for sleep 05/06/2018 08/12/2018 Inactive potassium chloride ER 10 mEq capsule,extended release RxNorm : 515485 2 Capsule(s) PO QD 05/06/2018 05/06/2018 Inactive ropinirole 1 mg tablet RxNorm: 347562 1 TABLET(S) PO QHS FOR RE STLESS LEGS 03/27/2018 04/25/2018 Inactive Patient requests 9 0 days supply ropinirole 1 mg tablet RxNorm: 481285 1 Tablet(s) PO QHS for re stless legs 03/26/2018 03/26/2018 Inactive cefdinir 300 mg capsule RxNorm: 398867 1 Capsule(s) PO BID 03/26/20 18 03/30/2018 Inactive temazepam 15 mg capsule RxNorm: 091214 1 Capsule(s) PO QHS as neede d 03/20/2018 03/25/2018 Inactive Lunesta 3 mg tablet RxNorm: 564892 1 Tablet(s) PO QHS as needed for sleep 03/04/2018 03/19/2018 Inactive amitriptyline 10 mg tablet RxNorm: 798250 1 Tablet(s) PO QHS fo r sleep 02/26/2018 03/03/2018 Inactive escitalopram 20 mg tablet RxNorm: 989697 1 Tablet(s) PO QHS 018 08/12/2018 Inactive pantoprazole 40 mg tablet,delayed release RxNorm: 601946 1 Tabl et(s) PO BID 02/26/2018 04/26/2018 Inactive Coumadin 2.5 mg tablet RxNorm: 723705 1 Tablet(s) PO MWF 02/18/2018 0 07/22/2018 Inactive amiodarone 200 mg tablet RxNorm: 618057 1 Tablet(s) PO QD No Start Da te Active colestipol 1 gram tablet RxNorm: 7129819 1 Tablet(s) PO BID No Start Date Active pantoprazole 40 mg tablet,delayed release RxNorm: 877255 1 Tabl et(s) PO QD No Start Date Active pantoprazole 40 mg tablet,delayed release RxNorm: 178072 1 Tabl et(s) PO QD No Start Date 02/25/2018 Inactive bumetanide 1 mg tablet RxNorm: 387793 1 Tablet(s) PO BID (6am a nd 6pm) No Start Date 08/12/2018 Inactive potassium chloride ER 10 mEq tablet,extended release RxNorm: 190073 1 Tablet(s) PO QD No Start Date 02/11/2019 Inactive levothyroxine 25 mcg tablet RxNorm: 670026 1 Tablet(s) PO QD No Sta rt Date 08/12/2018 Inactive spironolactone 25 mg tablet RxNorm: 279455 1 Tablet(s) PO QD No Sta rt Date 08/12/2018 Inactive warfarin 5 mg tablet RxNorm: 854372 1 Tablet(s) PO MWF No Start Date 08/12/2018 Inactive warfarin 5 mg tablet RxNorm: 661334 1 Tablet(s) PO Tues , Wed, Th, Sat and Sun then 1/2 tablet (2.5mg) on Mon & Fri No Start Date 08/12/2018 Inactive losartan 25 mg tablet RxNorm: 683742 1 Tablet(s) PO QAM No Start Da te 08/12/2018 Inactive carvedilol 6.25 mg tablet RxNorm: 254285 1 Tablet(s) PO BID No Star t Date 08/12/2018 Inactive warfarin 2.5 mg tablet RxNorm: 399248 1 Tablet(s) PO Tues, Thur s, Sat and Sun No Start Date 08/12/2018 Inactive Coumadin 2.5 mg tablet RxNorm: 942987 Tablet(s) Sun and Sun PO No Start Date 02/17/2018 Inactive Children's Multivitamin with Iron tablet RxNorm: 1 Table t(s) PO QD No Start Date 04/22/2019 Inactive potassium chloride ER 20 mEq tablet,extended release(p art/cryst) RxNorm: 4851275 2 Tablet(s) PO QD No Start Date 05/05/2018 Inactive Coumadin 5 mg tablet RxNorm: 083350 Tablet(s) PO No Start Date 2017 Inactive mexiletine 200 mg capsule RxNorm: 0332002 1 Capsule(s) PO BID No St art Date 03/25/2018 Inactive ferrous sulfate 325 mg (65 mg iron) tablet RxNorm: 749223 1 Tab let(s) PO QD No Start Date 07/22/2018 Inactive cyclobenzaprine 10 mg tablet RxNorm: 008820 1 Tablet(s) PO Q8H as needed No Start Date 12/29/2018 Inactive potassium chloride ER 10 mEq capsule,extended release RxNorm : 641022 2 Capsule(s) PO QD No Start Date 12/11/2018 Inactive Coumadin 5 mg tablet RxNorm: 128116 1 Tablet(s) PO Tues, , Sat and Sun No Start Date 07/22/2018 Inactive Restoril 15 mg capsule RxNorm: 745331 1-2 Capsule(s) PO QHS as needed for sleep No Start Date 05/05/2018 Inactive metoprolol succinate ER 25 mg tablet,extended release 24 hr RxNorm: 111936 1 Tablet(s) PO QD No Start Date 08/12/2018 Inactive Entresto 24 mg-26 mg tablet RxNorm: 9969605 1 Tablet(s) PO BID No S tart Date 08/12/2018 Inactive warfarin 5 mg tablet RxNorm: 744577 1 Tablet(s) PO , Sun, , Sat and Sun and 1/2 tablet on Sun/Sun No Start Date 01/30/2019 Inactive amiodarone 200 mg tablet RxNorm: 502458 2 Tablet(s) PO BID No Start Date 10/09/2018 Inactive furosemide 20 mg tablet RxNorm: 931326 1 Tablet(s) PO QD No Start D ate 08/12/2018 Inactive amiodarone 200 mg tablet RxNorm: 778865 1 Tablet(s) PO BID No Start Date 08/26/2018 Inactive atorvastatin 40 mg tablet RxNorm: 057086 1 Tablet(s) PO QD No Start Date 08/12/2018 Inactive warfarin 5 mg tablet RxNorm: 141152 1/2 Tablet(s) PO on Sun, Sun, Sun, Sun then 1 tablet on Sun, , Sat No Start Date 04/22/2019 Inactive Medication Administered No Medication Administered data Immunizations Vaccine Codes Date Status Pneumovax CVX: 33 05/14/2019 Hepatitis A CVX: 83 03/25/2019 Influenza CVX: 135 03/25/2019 Results Observation Observation Code Item Item Code Result Date S ervice Location UA W/MICR 67444 UA Urine Appear Normal 02/06/2018 Unk nown UA W/MICR 29773 UA Protein 3+ 02/06/2018 Unknown UA W/MICR 26691 UA Hemoglobin Trace 02/06/2018 Unkno wn UA W/MICR 70405 UA Glucose Negative 02/06/2018 Unknown UA W/MICR 21206 UA Ketones Negative 02/06/2018 Unknown UA W/MICR 51526 UA pH 5.5 02/06/2018 Unknown UA W/MICR 47949 U Spec [place] 1.025 02/06/2018 Unkn own UA W/MICR 85859 UA Bilirubin Negative 02/06/2018 Unknow n UA W/MICR 04762 UA Leuk Esteras Trace 02/06/2018 Unk nown UA W/MICR 04506 UA Nitrite NEG 02/06/2018 Unknown UA W/MICR 33958 UA WBC/hpf 11-25 02/06/2018 Unknown UA W/MICR 09539 UA RBC hpf 0-5 02/06/2018 Unknown UA W/MICR 77634 UA Hyaline Cast 16-25 02/06/2018 Unk nown UA W/MICR 44619 UA Squam Epi Few 02/06/2018 Unknow n Procedures Procedure Codes Date INITIAL PREVENTIVE EXAM CPT-4: G0402 09/25/2019 URINALYSIS NONAUTO W/O SCOPE CPT-4: 11092 03/18/2019 URINE CULTURE/ COLONY COUNT CPT-4: 82423 03/18/2019 URINALYSIS NONAUTO W/O SCOPE CPT-4: 57113 12/12/2018 URINE CULTURE/ COLONY COUNT CPT-4: 45857 03/26/2018 URINALYSIS NONAUTO W/O SCOPE CPT-4: 04998 03/15/2018 INITIAL PREVENTIVE EXAM CPT-4: G0402 02/26/2018 URINALYSIS NONAUTO W/O SCOPE CPT-4: 66711 02/06/2018 URINE CULTURE/ COLONY COUNT CPT-4: 91376 02/06/2018 UA W/MICR CPT-4: 69690 02/06/2018 CUR TOBACCO NON-USER CPT-4: G8457 01/30/2018 REPAIR BLADDER & VAGINA CPT-4: 06817 01/06/2017 REPAIR OF RECTOCELE CPT-4: 41905 01/06/2017 BREAST SURGERY PROCEDURE CPT-4: 93840 Unknown LAPARO CHOLECYSTECTOMY/EXPLR CPT-4: 07769 Unknown HYSTERECTOMY/REVISE VAGINA CPT-4: 24411 Unknown Vital Signs Date Vital 11/19/2019 Blood [...] 1: 106/58 Code: 8480-6 BMI: 26.3 Code: 05122-9 Heart Rate 1: 72 bpm Height: 4'10" Respiratory Rate: 20 bpm SpO2: 97% Tempera ture: 36.6 (C) / 97.8 (F) Weight: 128 lbs 07/10/2018 Blood Pressure 1: 122/70 Code: 8480-6 BMI: 28.6 Code: 62303-6 Heart Rate 1: 80 bpm Height: 4'10" Respiratory Rate: 20 bpm SpO2: 96% Tempera ture: 36.9 (C) / 98.4 (F) Weight: 139 lbs 05/06/2018 Blood Pressure 1: 112/54 Code: 8480-6 BMI: 27.5 Code: 79530-4 Heart Rate 1: 80 bpm Height: 4'10" [...] 1: 146/80 Code: 8480-6 BMI: 30.0 Code: 63343-4 Heart Rate 1: 76 bpm Height: 4'10" Respiratory Rate: 20 bpm SpO2: 97% Tempera ture: 36.7 (C) / 98.1 (F) Weight: 146 lbs 02/26/2018 Blood Pressure 1: 126/80 Code: 8480-6 BMI: 29.6 Code: 89119-9 Heart Rate 1: 80 bpm Height: 4'10" Respiratory Rate: 18 bpm SpO2: 96% Tempera ture: 37.0 (C) / 98.6 (F) Weight: 144 lbs 01/30/2018 Blood Pressure 1: 120/78 Code: 8480-6 BMI: 29.6 Code: 53017-0 Heart Rate 1: 84 bpm Height: 4'10" Respiratory Rate: 20 bpm SpO2: 97% Tempera ture: 36.0 (C) / 96.8 (F) Weight: 144 lbs Functional Status No Functional Status data Reason For Visit Reason For Visit Effective Dates Notes dizziness 11/19/2019 Annual Checkup 09/25/2019 pt labs are scanned into chart abdominal pain 08/26/2019 follow up 05/07/2019 follow up 04/23/2019 [facility] abdominal pain 03/27/2019 left lower quadrant back [...] up 07/10/2018 Hospital/ER fwup follow up 05/06/2018 [facility] abdominal pain 04/17/2018 follow up 03/26/2018 dizziness 03/15/2018 Patient had bladder biopsy on Sunday by Dr Noonan. states she has been holding her coumadin since Sunday insomnia 02/26/2018 blood in urine 02/06/2018 ~generic 01/30/2018 Establishing Care Encounters Encounter Performer Location Codes Date ([id number]) OFFICE/OUTPATIENT VISIT EST Diagnosis: Hypotension[ICD10: I95.9] Diagnosis: Dizziness and giddiness[ICD10: R42] Diagnosis: Polyuria[ICD10: R35.8] Jalyn Landeros [facility] CPT-4: 67939 11/19/2019 ([id number]) OFFICE/OUTPATIENT VISIT EST Diagnosis: Sigmoid diverticulitis[ICD10: K57.32] Jalyn DAILY [facility] CPT-4: 56065 08/26/2019 ([id number]) OFFICE/OUTPATIENT VISIT EST Diagnosis: Clostridium difficile colitis[ICD10: A04.72] Jalyn DAILY [facility] CPT-4: 88028 05/07/2019 ([id number]) OFFICE/OUTPATIENT VISIT EST Diagnosis: Clostridium difficile colitis[ICD10: A04.72] Diagnosis: Edema[ICD10: R60.9] [facility] 57517 04/23/2019 ([id number]) OFFICE/OUTPATIENT VISIT EST Diagnosis: Constipation[ICD10: K59.00] Diagnosis: Left lower quadrant pain[ICD10: R10.32] Bhavna Garydi THALIA AGUILAERIK Jan[facility]Ruben [facility] C[facility]: 43694 03/27/2019 ([id number]) OFFICE/OUTPATIENT VISIT EST Diagnosis: Acute kidney failure, unspecified[ICD10: N17.9] Jalyn DAILY [facility] CPT-4: 76770 03/18/2019 ([id number]) OFFICE/OUTPATIENT VISIT EST Diagnosis: Essential (primary) hypertension[ICD10: I10] Diagnosis: Chronic atrial fibrillation[ICD10: I48.2] Diagnosis: Mixed hyperlipidemia[ICD10: E78.2] Diagnosis: Other fatigue[ICD10: R53.83] Diagnosis: Abdominal distension (gaseous)[ICD10: R14.0] Jalyn CamachoRuben [facility] CPT-[facility]: 22787 02/12/2019 ([id number]) OFFICE/OUTPATIENT VISIT EST Diagnosis: Low back pain[ICD10: M54.5] Bhavna Brarimalkhalif Martinez [facility] CPT-4: 19641 12/25/2018 ([id number]) OFFICE/OUTPATIENT VISIT EST Diagnosis: Low back pain[ICD10: M54.5] Bhavna JOE DO [facility] CPT-4: 64013 12/12/2018 ([id number]) OFFICE/OUTPATIENT VISIT EST Diagnosis: Anemia, unspecified[ICD10: D64.9] Diagnosis: Chronic atrial fibrillation[ICD10: I48.2] Diagnosis: Other fatigue[ICD10: R53.83] Jalyn DAILY [employer] mentor [employer] [facility] CPT-4: 93059 10/10/2018 ([id number]) OFFICE/OUTPATIENT VISIT EST Diagnosis: Acute on chronic combined systolic (congestive) and diastolic (congestive) heart failure[ICD10: I50.43] Diagnosis: Chronic atrial fibrillation[ICD10: I48.2] Jalyn DAILY [employer] mentor [employer] [facility] CPT-4: 88406 08/27/2018 ([id number]) OFFICE/OUTPATIENT VISIT EST Diagnosis: Chronic atrial fibrillation[ICD10: I48.2] 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] 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[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] Jalyn DAILY [employer] mentor [employer] [facility] CPT-4: 32008 08/13/2018 ([id number]) OFFICE/OUTPATIENT VISIT EST Diagnosis: Acute on chronic combined systolic (congestive) and diastolic (congestive) heart failure[ICD10: I50.43] Diagnosis: Essential (primary) hypertension[ICD10: I10] Diagnosis: Anemia, unspecified[ICD10: D64.9] Jalyn DAILY [employer] mentor | [employer] [facility] CPT-4: 44042 07/10/2018 ([id number]) OFFICE/OUTPATIENT VISIT EST Diagnosis: Chronic atrial fibrillation[ICD10: I48.2] Diagnosis: Acute on chronic combined systolic (congestive) and diastolic (congestive) heart failure[ICD10: I50.43] Diagnosis: Localized edema[ICD10: R60.0] Jalyn DAILY [employer] mentor | [employer] [facility] CPT-4: 06210 05/06/2018 ([id number]) OFFICE/OUTPATIENT VISIT EST Diagnosis: Generalized abdominal pain[ICD10: R10.84] Diagnosis: Pelvic and perineal pain[ICD10: R10.2] Diagnosis: Localized edema[ICD10: R60.0] Bhavna DAILY [employer] mentor [employer] [facility] CPT-4: 35415 04/17/2018 ([id number]) OFFICE/OUTPATIENT VISIT EST Diagnosis: Urinary tract infection, site not specified[ICD10: N39.0] Diagnosis: Other insomnia[ICD10: G47.09] Diagnosis: Other fatigue[ICD10: R53.83] Diagnosis: Other forms of dyspnea[ICD10: R06.09] Diagnosis: Chronic atrial fibrillation[ICD10: I48.2] Diagnosis: Restless legs syndrome[ICD10: G25.81] Jalyn Abimbola DAILY [employer] mentor | invest [facility] CPT-4: 04492 03/26/2018 ([id number]) OFFICE/OUTPATIENT VISIT EST Diagnosis: Altered mental status, unspecified[ICD10: R41.82] Diagnosis: senior living (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[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] Diagnosis: Hematuria, unspecified[ICD10: R31.9] Bhavna DAILY [employer] mentor | [employer] [facility] CPT-4: 13761 03/15/2018 ([id number]) NURSE/OUTPATIENT VISIT EST Diagnosis: Urinary tract infection, site not specified[ICD10: N39.0] Jalyn Bullnahidnéstor DAILY [employer] | mentor | invest [facility] CPT-4: 55530 02/06/2018 OFFICE/OUTPATIENT VISIT NEW Diagnosis: senior living (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[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] Diagnosis: Essential (primary) hypertension[ICD10: I10] Diagnosis: Mixed hyperlipidemia[ICD10: E78.2] Diagnosis: Other fatigue[ICD10: R53.83] Diagnosis: Cardiac arrhythmia, unspecified[ICD10: I49.9] Diagnosis: Generalized abdominal pain[ICD10: R10.84] Diagnosis: Urinary tract infection, site not specified[ICD10: N39.0] Diagnosis: Other insomnia[ICD10: G47.09] Bhavna DAILY [employer] | mentor | invest [facility] CPT-4: 68070 01/30/2018 Plan of Care Planned Activity Notes [...] R35.8 11/19/2019 Patient Education: Colace- OptimizeRX Coupon [id number] [email or web address] Completed 11/19/2019 Visit Diagnosis Plan: Encounter for [facility] adult medical examination with abnormal findings [...] I10 09/25/2019 [facility]ointment[facility] [address] [facility] [facility] Visit 09/25/2019 Care Plan: COMPREH[place]AB[place] : 51759-9 Pending 09/22/2019 Care Plan: COMPLETE CBC W/AUTO DIFF WBC LOINC : 84908-9 Pending 09/22/2019 Appointment: Bhavna Escalante [address] pt[address] feeling better and still had [...] : K57.32 08/26/2019 Appointment: Jalyn Daily WPtel: [address] [place], [place] [address] ACUTE ILLNESS 08/26/2019 Appointment: Jalyn Daily WPtel: [address] [place], [place] [address] originally 4 mo follow up CANCELED 2018 Visit Diagnosis Plan: Clostridium difficile colitis Di scussion: Vancomycin daily for another week then 125mg every 3 days for 1 month then stop Fwup in September ICD-9 : 008.45 ICD-10 : A04.72 05/07/2019 Appointment: Jalyn Daily WPtel: [address] [place] [address] FOLLOW UP 05/07/2019 Visit Diagnosis Plan: Edema [...] : A04.72 04/23/2019 Appointment: Jalyn Daily WPtel: [address] [place], [place] [id number] Hospital Follow Up 04/23/2019 Appointment: Bhavna Escalante [address] [place] [address] US CANCELED 04/15/2019 Visit Diagnosis Plan: Left lower quadrant pain Discuss ion: will start with abdominal xray to rule out acute obstruction/constipation. if no acute findings, will treat as diverticulitis due to patient's past history. ICD-9 : 789.04 ICD-10 : R10.32 03/27/2019 Appointment: Bhavna Escalante [address] [id number] ACUTE ILLNESS 03/27/2019 Visit Diagnosis Plan: Acute kidney failure, unspecifie d Discussion: Was given Meloxicam at urgent care--discussed no NSAIDs, hydrate, repeat Chem 7 in 1 week ICD-9 : 584.9 ICD-10 : N17.9 03/18/2019 Appointment: Jalyn Daily WPtel: [address] [place] [address] ACUTE ILLNESS 03/18/2019 Visit Diagnosis Plan: Abdominal distension (gaseous) D iscussion: Trial of Zenpep q AC ICD-9 : 787.3 ICD-10 : R14.0 02/12/2019 Visit Diagnosis Plan: Essential (primary) hypertension Discussion: Stable ICD-9 : 401.9 ICD-10 : I10 02/12/2019 Visit Diagnosis Plan: Chronic atrial fibrillation Disc ussion: Following routinely with Cardiology ICD-9 : 427.31 ICD-10 : I48.2 02/12/2019 Appointment: Jalyn Dialy WPtel: [address] [place] [address] US FOLLOW UP 02/12/2019 Appointment: Bhavna Escalante [address] [place] [address] US Canceled per guillermina. sending for mri [...] ICD-10 : M54.5 12/25/2018 Appointment: Bhavna Escalante [address] [place] [address] ACUTE ILLNESS 12/25/2018 Visit Diagnosis Plan: Low [...] ICD-10 : M54.5 12/12/2018 Appointment: Bhavna Escalante [address] [place] [address] ACUTE ILLNESS 12/12/2018 Patient Education: cyclobenzaprine- OptimizeRX Coupon [id number] [email or web address]/resources/getResource/61/[email or web address] Completed 12/12/2018 Appointment: Bhavna Escalante [address] [place] [address] US CANCELED 12/06/2018 Visit Diagnosis Plan: Chronic [...] R53.83 10/10/2018 Appointment: Jalyn Daily WPtel: [address] [place] [address] US FOLLOW UP 10/10/2018 Visit Diagnosis Plan: [...] : I50.43 08/27/2018 Appointment: Jalyn Daily WPtel: [facility] [place] [address] US FOLLOW UP 08/27/2018 Visit Diagnosis Plan: [...] : I48.2 08/13/2018 Visit Diagnosis Plan: intermediate accountant (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 Discussion: Increase Coumadin to 5mg po daily and repeat PT/INR in 2 weeks ICD-9 : V58.61 ICD-10 : Z79.01 08/13/2018 Appointment: [facility] [address] [facility] [facility] 08/13/2018 Patient Education: bumetanide- OptimizeRX Coupon [id number] [email or web address]://[email or web address]/resources/getResource/61/[email or web address] Completed 08/13/2018 Patient Education: levothyroxine- OptimizeRX Coupon [id number] https://[email or web address]/resources/getResource/61/[email or web address] Completed 08/13/2018 Patient Education: warfarin- OptimizeRX Coupon [id number] [email or web address]/[email or web address] [employer]/resources/getResource/[id number] Completed 08/13/2018 Patient Education: pantoprazole- [employer] Coupon [phone] [email or web address]/resources/getResource/[email or web address] Completed 08/13/2018 Patient Education: spironolactone- [employer] Coupon [phone] [email or web address]://[email or web address]/resources/getResource/61/[email or web address] Completed 08/13/2018 Visit Diagnosis Plan: Anemia, unspecified [...] : I50.43 07/10/2018 Appointment: Jalyn Daily WPtel: [address] [place] [address] 2nd FOLLOW UP 07/10/2018 Visit Diagnosis Plan: [...] I48.2 05/06/2018 Appointment: Jalyn Daily WPtel: [address] [place] [address] [place] FOLLOW UP 05/06/2018 Visit Diagnosis Plan: [...] ICD-10 : R60.0 04/17/2018 Appointment: Bhavna Escalante [address] [place] [address] ACUTE ILLNESS 04/17/2018 Patient Education: Patient Medication Summary Completed 04/17/2018 Care Plan: CT ABDOMEN W/O & W/DYE LOINC : 14320-8 Pending 04/17/2018 Care Plan: CT PELVIS W/O & W/DYE LOINC : 31475-7 Pending 04/17/2018 [facility] [phone] [facility] [facility]ED 04/10/2018 Visit Diagnosis Plan: [...] R06.09 03/26/2018 [facility] [phone] [facility] [facility] Follow UP 03/26/2018 Patient Education: [...] ICD-10 : R41.82 03/15/2018 Appointment: Bhavna Escalante [address] [place] [address] ACUTE ILLNESS 03/15/2018 Patient Education: Patient Medication Summary Completed 03/15/2018 Visit Diagnosis Plan: Primary insomnia Discussion: Tri al of elavil 10mg po q HS ICD-9 : 780.52 ICD-10 : F51.01 02/26/2018 Visit Diagnosis Plan: Functional dyspepsia Discussion: Increase protonix to 40mg po BID Follow Up: 1 months ICD-9 : 536.8 ICD-10 : K30 02/26/2018 Appointment: Jalyn Daily WPtel: [address] [place] [address] WELCOME TO MEDICARE 02/26/2018 Patient Education: Patient Medication Summary Completed 02/26/2018 Referral: Song Noonan WPtel: [address] [place] [address] [place] Referral Initiated 02/19/2018 Appointment: Jalyn Daily WPtel: [address] [place], [place] [phone] [place] LAB 02/06/2018 Patient Education: Patient Medication Summary Completed 02/06/2018 Appointment: Jalyn Daily WPtel: [address] [place], [place] [phone] [place] CANCELED 02/01/2018 Care Plan: US EXAM ABDOM COMPLETE liver LOINC : 71140-8 Pending 01/31/2018 Visit Diagnosis Plan: Other fatigue Discussion: will o rder fasting blood work to assess for any anemia or infection especially due to recent surgery and bleeding risks. 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
--- OUTSIDE RECORDS SUMMARY | 2020-02-10 14:06 | XMS REPORT | CCD ---
Author Author Riana Escalante Organization JALYN SRuben DAILY DO [facility] Address [address] [place] [address] Phone Unavailable Care Team Providers Care Razor Sharpener Name Role Phone PP Unavailable CCM Unavailable Summary Purpose Interface Exchange Insurance Providers Payer name Policy type / Coverage type Covered alliance party ID Effective Begin Date Effective End Date WPS MEDICARE PART B [place] Medicare Part B [id number] 2017 Unknown Cigna Medicare Part B [id number] 2017 Unknown Family History Family History data not found Social History Social History Element Codes Description Effective Dates Tobacco history SNOMED CT: 444688340 Never smoker 01/30/[address]: 508309185 Never drinks alcohol 2017 Allergies, Adverse Reactions, [...] hypertension ICD-9: 401.9 ICD-10: I10 01/30/2018 Active USP (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 ICD-9: V58.6 1 [...] Fill Instructions Colace 100 mg capsule RxNorm: 4633521 1 Capsule(s) Oral three ti mes a day 11/19/2019 12/19/2019 Active warfarin 5 mg tablet RxNorm: 261351 1 Tablet(s) Oral MW F and 1/2 tablet (2.5mg) , [facility] [place] 09/30/2019 12/29/2019 Active levothyroxine 25 mcg tablet RxNorm: 350455 TAKE ONE TABLET BY M OUTH DAILY 09/30/2019 No Stop Date Active potassium chloride ER 10 mEq capsule,extended release RxNorm : 540858 1 Capsule(s) Oral two times a day on and 1 capsule 09/26/2019 09/26/2019 Inactive vancomycin 125 mg capsule RxNorm: 895739 2 Capsule(s) Oral Q8H 08/0909/05/2019 Inactive warfarin 5 mg tablet RxNorm: 095162 1 Tablet(s) Oral MW F and 1/2 tablet (2.5mg) , Sun & Sun08/26/2019 09/29/2019 Inactive Colace 100 mg capsule RxNorm: 1262522 1 Capsule(s) Oral QD 08/26/19 20 11/18/2019 Inactive levothyroxine 25 mcg tablet RxNorm: 241043 1 Tablet(s) PO QD 201909/29/2019 Inactive spironolactone 25 mg tablet RxNorm: 589497 TAKE 1 TABLET BY DOUGLAS TH TWICE DAILY 06/22/2019 09/19/2019 Inactive losartan 25 mg tablet RxNorm: 957540 TAKE 1 TABLET BY M OUTH ONCE DAILY IN THE MORNING 05/26/2019 No Stop Date Active bumetanide 1 mg tablet RxNorm: 458565 TAKE 1 TABLET BY MOUTH TWICE DAILY AT 6AM AND 6PM 05/23/2019 No Stop Date Active vancomycin 125 mg capsule RxNorm: 304831 1 Capsule(s) Oral Q3D 04/1008/25/2019 Inactive pantoprazole 40 mg tablet,delayed release RxNorm: 146757 1-2 Ta blet(s) Oral QD 04/23/2019 05/23/2019 Inactive potassium chloride ER 10 mEq capsule,extended release RxNorm : 122866 1 Capsule(s) Oral QD 04/23/2019 09/25/2019 Inactive warfarin 5 mg tablet RxNorm: 004905 Tablet(s) Oral Take 1 tablet (5mg) by mouth on and Sun then 1/2 tablet (2.5mg) on Sun, Sun, Th, Sat and Sun 04/23/2019 08/25/2019 Inactive temazepam 15 mg capsule RxNorm: 384580 TAKE 1 TO 2 CAPS ULES BY MOUTH AT BEDTIME NEEDED FOR SLEEP 04/08/2019 09/25/2019 Inactive Cipro 250 mg tablet RxNorm: 821730 1 Tablet(s) Oral two times a day 03/27/2019 04/03/2019 Inactive metronidazole 500 mg tablet RxNorm: 122771 1 Tablet(s) Oral thr ee times a day 03/27/2019 04/03/2019 Inactive bumetanide 1 mg tablet RxNorm: 776747 1 Tablet(s) PO BID (6am a nd 6pm) 02/13/2019 05/13/2019 Inactive levothyroxine 25 mcg tablet RxNorm: 869673 1 Tablet(s) PO QD 201807/13/2019 Inactive warfarin 5 mg tablet RxNorm: 751573 1 TABLET(S) PO , SUN, TH, SAT AND SUN AND 1/2 TABLET ON 02/04/2019 02/11/2019 Inactive Kendra ent requests 90 days supply warfarin 5 mg tablet RxNorm: 879745 1 TABLET(S) PO TUES , WED, THURS, SAT AND SUN AND 1/2 TABLET ON 02/03/2019 02/03/2019 Inactive Kendra ent requests 90 days supply levothyroxine 25 mcg tablet RxNorm: 920764 1 Tablet(s) PO QD 201802/03/2019 Inactive warfarin 5 mg tablet RxNorm: 309892 1 Tablet(s) PO Tues , Wed, Thurs, Sat and Sun and 1/2 tablet on 01/31/2019 02/02/2019 Inactive temazepam 15 mg capsule RxNorm: 671134 TAKE 1 TO 2 CAPS ULES BY MOUTH AT BEDTIME NEEDED FOR SLEEP 01/31/2019 04/07/2019 Inactive cyclobenzaprine 10 mg tablet RxNorm: 709589 1 Tablet(s) PO Q8H as needed 12/30/2018 09/25/2019 Inactive losartan 25 mg tablet RxNorm: 638843 1 Tablet(s) PO QAM 12/27/2018 Inactive Lidoderm 5 % topical patch RxNorm: 8969149 1 Application TOP Q12H and then off for 12 hours 12/25/2018 01/23/2019 Inactive Lidoderm 5 % topical patch RxNorm: 2665639 1 Application TOP Q12H and then off for 12 hours 12/25/2018 12/24/2018 Inactive cyclobenzaprine 5 mg tablet RxNorm: 951473 1 Tablet(s) PO Q8H a s needed 12/12/2018 12/24/2018 Inactive spironolactone 25 mg tablet RxNorm: 942711 1 Tablet(s) PO BID 09/2006/16/2019 Inactive change in directions to BID pantoprazole 40 mg tablet,delayed release RxNorm: 710825 1 Tabl et(s) PO QD 09/20/2018 04/22/2019 Inactive Patient requests 9 0 days supply spironolactone 25 mg tablet RxNorm: 485479 1 Tablet(s) PO BID 08/2609/19/2018 Inactive change in directions to BID pantoprazole 40 mg tablet,delayed release RxNorm: 109306 1 Tabl et(s) PO QD 08/15/2018 09/19/2018 Inactive Patient requests 9 0 days supply carvedilol 6.25 mg tablet RxNorm: 258358 1 Tablet(s) PO BID 019 02/08/2019 Inactive pantoprazole 40 mg tablet,delayed release RxNorm: 896458 1 Tablet(s) PO QD 1 TABLET(S) PO BID 08/13/2018 08/15/2018 Inactive Patient reque sts 90 days supply bumetanide 1 mg tablet RxNorm: 520923 1 Tablet(s) PO BID (6am a nd 6pm) 08/13/2018 02/08/2019 Inactive bumetanide 0.5 mg tablet RxNorm: 782053 1 Tablet(s) PO QPM three days a week--Sunday, Sun, Sunday instead of 1mg dose in evening 08/13/201812/2018 Inactive levothyroxine 25 mcg tablet RxNorm: 927685 1 Tablet(s) PO QD 201801/30/2019 Inactive spironolactone 25 mg tablet RxNorm: 786898 1 Tablet(s) PO QD 201808/25/2018 Inactive losartan 25 mg tablet RxNorm: 169414 1 Tablet(s) PO QAM 08/13/2018 Inactive warfarin 5 mg tablet RxNorm: 152245 1 Tablet(s) PO QD 08/13/201808/09 Inactive pantoprazole 40 mg tablet,delayed release RxNorm: 735793 1 TABL ET(S) PO BID 08/02/2018 08/12/2018 Inactive Patient requests 9 0 days supply temazepam 15 mg capsule RxNorm: 424040 1-2 Capsule(s) P O QHS as needed for sleep 2018 01/31/2019 Inactive Restoril 15 mg capsule RxNorm: 756047 1-2 Capsule(s) PO QHS as needed for sleep 06/04/2018 08/12/2018 Inactive potassium chloride ER 10 mEq capsule,extended release RxNorm : 190596 2 CAPSULE(S) PO QD 05/07/2018 08/04/2018 Inactive Patient reque sts 90 days supply temazepam 22.5 mg capsule RxNorm: 328879 1 Capsule(s) P O QHS as needed for sleep 05/06/2018 08/12/2018 Inactive potassium chloride ER 10 mEq capsule,extended release RxNorm : 181422 2 Capsule(s) PO QD 05/06/2018 05/06/2018 Inactive ropinirole 1 mg tablet RxNorm: 571068 1 TABLET(S) PO QHS FOR RE STLESS LEGS 03/27/2018 04/25/2018 Inactive Patient requests 9 0 days supply ropinirole 1 mg tablet RxNorm: 688831 1 Tablet(s) PO QHS for re stless legs 03/26/2018 03/26/2018 Inactive cefdinir 300 mg capsule RxNorm: 208584 1 Capsule(s) PO BID 03/26/20 18 03/30/2018 Inactive temazepam 15 mg capsule RxNorm: 173127 1 Capsule(s) PO QHS as neede d 03/20/2018 03/25/2018 Inactive Lunesta 3 mg tablet RxNorm: 422480 1 Tablet(s) PO QHS as needed for sleep 03/04/2018 03/19/2018 Inactive amitriptyline 10 mg tablet RxNorm: 598010 1 Tablet(s) PO QHS fo r sleep 02/26/2018 03/03/2018 Inactive escitalopram 20 mg tablet RxNorm: 854599 1 Tablet(s) PO QHS 018 08/12/2018 Inactive pantoprazole 40 mg tablet,delayed release RxNorm: 778591 1 Tabl et(s) PO BID 02/26/2018 04/26/2018 Inactive Coumadin 2.5 mg tablet RxNorm: 024027 1 Tablet(s) PO MWF 02/18/2018 0 07/22/2018 Inactive amiodarone 200 mg tablet RxNorm: 963253 1 Tablet(s) PO QD No Start Da te Active colestipol 1 gram tablet RxNorm: 6445350 1 Tablet(s) PO BID No Start Date Active pantoprazole 40 mg tablet,delayed release RxNorm: 016592 1 Tabl et(s) PO QD No Start Date Active pantoprazole 40 mg tablet,delayed release RxNorm: 381344 1 Tabl et(s) PO QD No Start Date 02/25/2018 Inactive bumetanide 1 mg tablet RxNorm: 228275 1 Tablet(s) PO BID (6am a nd 6pm) No Start Date 08/12/2018 Inactive potassium chloride ER 10 mEq tablet,extended release RxNorm: 181882 1 Tablet(s) PO QD No Start Date 02/11/2019 Inactive levothyroxine 25 mcg tablet RxNorm: 070932 1 Tablet(s) PO QD No Sta rt Date 08/12/2018 Inactive spironolactone 25 mg tablet RxNorm: 531142 1 Tablet(s) PO QD No Sta rt Date 08/12/2018 Inactive warfarin 5 mg tablet RxNorm: 432815 1 Tablet(s) PO MWF No Start Date 08/12/2018 Inactive warfarin 5 mg tablet RxNorm: 592120 1 Tablet(s) PO Tues , Wed, Th, Sat and Sun then 1/2 tablet (2.5mg) on Mon & Fri No Start Date 08/12/2018 Inactive losartan 25 mg tablet RxNorm: 929884 1 Tablet(s) PO QAM No Start Da te 08/12/2018 Inactive carvedilol 6.25 mg tablet RxNorm: 830102 1 Tablet(s) PO BID No Star t Date 08/12/2018 Inactive warfarin 2.5 mg tablet RxNorm: 813369 1 Tablet(s) PO Tues, Thur s, Sat and Sun No Start Date 08/12/2018 Inactive Coumadin 2.5 mg tablet RxNorm: 434639 Tablet(s) Sun and Sun PO No Start Date 02/17/2018 Inactive Children's Multivitamin with Iron tablet RxNorm: 1 Table t(s) PO QD No Start Date 04/22/2019 Inactive potassium chloride ER 20 mEq tablet,extended release(p art/cryst) RxNorm: 5647810 2 Tablet(s) PO QD No Start Date 05/05/2018 Inactive Coumadin 5 mg tablet RxNorm: 810423 Tablet(s) PO No Start Date 2017 Inactive mexiletine 200 mg capsule RxNorm: 4987855 1 Capsule(s) PO BID No St art Date 03/25/2018 Inactive ferrous sulfate 325 mg (65 mg iron) tablet RxNorm: 194805 1 Tab let(s) PO QD No Start Date 07/22/2018 Inactive cyclobenzaprine 10 mg tablet RxNorm: 601354 1 Tablet(s) PO Q8H as needed No Start Date 12/29/2018 Inactive potassium chloride ER 10 mEq capsule,extended release RxNorm : 933436 2 Capsule(s) PO QD No Start Date 12/11/2018 Inactive Coumadin 5 mg tablet RxNorm: 276552 1 Tablet(s) PO Tues, , Sat and Sun No Start Date 07/22/2018 Inactive Restoril 15 mg capsule RxNorm: 360306 1-2 Capsule(s) PO QHS as needed for sleep No Start Date 05/05/2018 Inactive metoprolol succinate ER 25 mg tablet,extended release 24 hr RxNorm: 775101 1 Tablet(s) PO QD No Start Date 08/12/2018 Inactive Entresto 24 mg-26 mg tablet RxNorm: 0716627 1 Tablet(s) PO BID No S tart Date 08/12/2018 Inactive warfarin 5 mg tablet RxNorm: 015361 1 Tablet(s) PO , Sun, , Sat and Sun and 1/2 tablet on Sun/Sun No Start Date 01/30/2019 Inactive amiodarone 200 mg tablet RxNorm: 935453 2 Tablet(s) PO BID No Start Date 10/09/2018 Inactive furosemide 20 mg tablet RxNorm: 972915 1 Tablet(s) PO QD No Start D ate 08/12/2018 Inactive amiodarone 200 mg tablet RxNorm: 616004 1 Tablet(s) PO BID No Start Date 08/26/2018 Inactive atorvastatin 40 mg tablet RxNorm: 175701 1 Tablet(s) PO QD No Start Date 08/12/2018 Inactive warfarin 5 mg tablet RxNorm: 622876 1/2 Tablet(s) PO on Sun, Sun, Sun, Sun then 1 tablet on Sun, , Sat No Start Date 04/22/2019 Inactive Medication Administered No Medication Administered data Immunizations Vaccine Codes Date Status Pneumovax CVX: 33 05/14/2019 Hepatitis A CVX: 83 03/25/2019 Influenza CVX: 135 03/25/2019 Results Observation Observation Code Item Item Code Result Date S ervice Location UA W/MICR 91801 UA Urine Appear Normal 02/06/2018 Unk nown UA W/MICR 08241 UA Protein 3+ 02/06/2018 Unknown UA W/MICR 15637 UA Hemoglobin Trace 02/06/2018 Unkno wn UA W/MICR 09222 UA Glucose Negative 02/06/2018 Unknown UA W/MICR 19152 UA Ketones Negative 02/06/2018 Unknown UA W/MICR 89023 UA pH 5.5 02/06/2018 Unknown UA W/MICR 89935 U Spec [place] 1.025 02/06/2018 Unkn own UA W/MICR 12619 UA Bilirubin Negative 02/06/2018 Unknow n UA W/MICR 71557 UA Leuk Esteras Trace 02/06/2018 Unk nown UA W/MICR 07133 UA Nitrite NEG 02/06/2018 Unknown UA W/MICR 97418 UA WBC/hpf 11-25 02/06/2018 Unknown UA W/MICR 70422 UA RBC hpf 0-5 02/06/2018 Unknown UA W/MICR 36981 UA Hyaline Cast 16-25 02/06/2018 Unk nown UA W/MICR 97352 UA Squam Epi Few 02/06/2018 Unknow n Procedures Procedure Codes Date INITIAL PREVENTIVE EXAM CPT-4: G0402 09/25/2019 URINALYSIS NONAUTO W/O SCOPE CPT-4: 83698 03/18/2019 URINE CULTURE/ COLONY COUNT CPT-4: 86445 03/18/2019 URINALYSIS NONAUTO W/O SCOPE CPT-4: 87826 12/12/2018 URINE CULTURE/ COLONY COUNT CPT-4: 56349 03/26/2018 URINALYSIS NONAUTO W/O SCOPE CPT-4: 50396 03/15/2018 INITIAL PREVENTIVE EXAM CPT-4: G0402 02/26/2018 URINALYSIS NONAUTO W/O SCOPE CPT-4: 05487 02/06/2018 URINE CULTURE/ COLONY COUNT CPT-4: 66176 02/06/2018 UA W/MICR CPT-4: 83970 02/06/2018 CUR TOBACCO NON-USER CPT-4: G8457 01/30/2018 REPAIR BLADDER & VAGINA CPT-4: 02434 01/06/2017 REPAIR OF RECTOCELE CPT-4: 43958 01/06/2017 BREAST SURGERY PROCEDURE CPT-4: 02725 Unknown LAPARO CHOLECYSTECTOMY/EXPLR CPT-4: 40192 Unknown HYSTERECTOMY/REVISE VAGINA CPT-4: 03918 Unknown Vital Signs Date Vital 11/19/2019 Blood [...] 1: 106/58 Code: 8480-6 BMI: 26.3 Code: 59339-7 Heart Rate 1: 72 bpm Height: 4'10" Respiratory Rate: 20 bpm SpO2: 97% Tempera ture: 36.6 (C) / 97.8 (F) Weight: 128 lbs 07/10/2018 Blood Pressure 1: 122/70 Code: 8480-6 BMI: 28.6 Code: 43933-7 Heart Rate 1: 80 bpm Height: 4'10" Respiratory Rate: 20 bpm SpO2: 96% Tempera ture: 36.9 (C) / 98.4 (F) Weight: 139 lbs 05/06/2018 Blood Pressure 1: 112/54 Code: 8480-6 BMI: 27.5 Code: 54202-9 Heart Rate 1: 80 bpm Height: 4'10" [...] 1: 146/80 Code: 8480-6 BMI: 30.0 Code: 60526-7 Heart Rate 1: 76 bpm Height: 4'10" Respiratory Rate: 20 bpm SpO2: 97% Tempera ture: 36.7 (C) / 98.1 (F) Weight: 146 lbs 02/26/2018 Blood Pressure 1: 126/80 Code: 8480-6 BMI: 29.6 Code: 03942-6 Heart Rate 1: 80 bpm Height: 4'10" Respiratory Rate: 18 bpm SpO2: 96% Tempera ture: 37.0 (C) / 98.6 (F) Weight: 144 lbs 01/30/2018 Blood Pressure 1: 120/78 Code: 8480-6 BMI: 29.6 Code: 90879-1 Heart Rate 1: 84 bpm Height: 4'10" [...] Care Encounters Encounter Performer Location Codes Date ([id number]) OFFICE/OUTPATIENT VISIT EST Diagnosis: Hypotension[ICD10: I95.9] Diagnosis: Dizziness and giddiness[ICD10: R42] Diagnosis: Polyuria[ICD10: R35.8] Jalyn Landeros [facility] CPT-4: 06001 11/19/2019 ([id number]) OFFICE/OUTPATIENT VISIT EST Diagnosis: Sigmoid diverticulitis[ICD10: K57.32] Jalyn DAILY [facility] CPT-4: 75392 08/26/2019 ([id number]) OFFICE/OUTPATIENT VISIT EST Diagnosis: Clostridium difficile colitis[ICD10: A04.72] Jalyn DAILY [facility] CPT-4: 22574 05/07/2019 ([id number]) OFFICE/OUTPATIENT VISIT EST Diagnosis: Clostridium difficile colitis[ICD10: A04.72] Diagnosis: Edema[ICD10: R60.9] [facility] 39452 04/23/2019 ([id number]) OFFICE/OUTPATIENT VISIT EST Diagnosis: Constipation[ICD10: K59.00] Diagnosis: Left lower quadrant pain[ICD10: R10.32] Bhavna Garydi THALIA AGUILAERIK JaniceRuben [facility] CPT-[facility]: 00649 03/27/2019 ([id number]) OFFICE/OUTPATIENT VISIT EST Diagnosis: Acute kidney failure, unspecified[ICD10: N17.9] Jalyn DAILY [facility] CPT-4: 26077 03/18/2019 ([id number]) OFFICE/OUTPATIENT VISIT EST Diagnosis: Essential (primary) hypertension[ICD10: I10] Diagnosis: Chronic atrial fibrillation[ICD10: I48.2] Diagnosis: Mixed hyperlipidemia[ICD10: E78.2] Diagnosis: Other fatigue[ICD10: R53.83] Diagnosis: Abdominal distension (gaseous)[ICD10: R14.0] [facility]alyn CamachoRuben [facility] CPT-[facility]: 38010 02/12/2019 ([id number]) OFFICE/OUTPATIENT VISIT EST Diagnosis: Low back pain[ICD10: M54.5] Bhavna Brarimalkhalif Martinez [facility] CPT-4: 97887 12/25/2018 ([id number]) OFFICE/OUTPATIENT VISIT EST Diagnosis: Low back pain[ICD10: M54.5] Bhavna JOE DO [facility] CPT-4: 85969 12/12/2018 ([id number]) OFFICE/OUTPATIENT VISIT EST Diagnosis: Anemia, unspecified[ICD10: D64.9] Diagnosis: Chronic atrial fibrillation[ICD10: I48.2] Diagnosis: Other fatigue[ICD10: R53.83] Jalyn DAILY Car Throttle [facility] CPT-4: 38948 10/10/2018 ([id number]) OFFICE/OUTPATIENT VISIT EST Diagnosis: Acute on chronic combined systolic (congestive) and diastolic (congestive) heart failure[ICD10: I50.43] Diagnosis: Chronic atrial fibrillation[ICD10: I48.2] Jalyn DAILY [employer] Th[employer]ttle [facility] CPT-4: 96252 08/27/2018 ([id number]) OFFICE/OUTPATIENT VISIT EST Diagnosis: Chronic atrial fibrillation[ICD10: I48.2] 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] 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] Jalyn DAILY [employer]le [facility] CPT-4: 48518 08/13/2018 ([id number]) OFFICE/OUTPATIENT VISIT EST Diagnosis: Acute on chronic combined systolic (congestive) and diastolic (congestive) heart failure[ICD10: I50.43] Diagnosis: Essential (primary) hypertension[ICD10: I10] Diagnosis: Anemia, unspecified[ICD10: D64.9] Jalyn DAILY [employer] [facility] CPT-4: 79370 07/10/2018 ([id number]) OFFICE/OUTPATIENT VISIT EST Diagnosis: Chronic atrial fibrillation[ICD10: I48.2] Diagnosis: Acute on chronic combined systolic (congestive) and diastolic (congestive) heart failure[ICD10: I50.43] Diagnosis: Localized edema[ICD10: R60.0] Jalyn DAILY [employer] [facility] CPT-4: 66674 05/06/2018 ([id number]) OFFICE/OUTPATIENT VISIT EST Diagnosis: Generalized abdominal pain[ICD10: R10.84] Diagnosis: Pelvic and perineal pain[ICD10: R10.2] Diagnosis: Localized edema[ICD10: R60.0] Bhavna DAILY [employer] [facility] CPT-4: 23462 04/17/2018 ([id number]) OFFICE/OUTPATIENT VISIT EST Diagnosis: Urinary tract infection, site not specified[ICD10: N39.0] Diagnosis: Other insomnia[ICD10: G47.09] Diagnosis: Other fatigue[ICD10: R53.83] Diagnosis: Other forms of dyspnea[ICD10: R06.09] Diagnosis: Chronic atrial fibrillation[ICD10: I48.2] Diagnosis: Restless legs syndrome[ICD10: G25.81] Jalyn Abimbola DAILY [employer] [facility] CPT-4: 83444 03/26/2018 ([id number]) OFFICE/OUTPATIENT VISIT EST Diagnosis: Altered mental status, unspecified[ICD10: R41.82] Diagnosis: USP (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[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] Diagnosis: Hematuria, unspecified[ICD10: R31.9] Bhavna DAILY [employer] Throttle [facility] CPT-4: 70023 03/15/2018 ([id number]) NURSE/OUTPATIENT VISIT EST Diagnosis: Urinary tract infection, site not specified[ICD10: N39.0] Jalyn Bullnahidnéstor DAILY [employer] [facility] CPT-4: 69788 02/06/2018 OFFICE/OUTPATIENT VISIT NEW Diagnosis: USP (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[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] Diagnosis: Essential (primary) hypertension[ICD10: I10] Diagnosis: Mixed hyperlipidemia[ICD10: E78.2] Diagnosis: Other fatigue[ICD10: R53.83] Diagnosis: Cardiac arrhythmia, unspecified[ICD10: I49.9] Diagnosis: Generalized abdominal pain[ICD10: R10.84] Diagnosis: Urinary tract infection, site not specified[ICD10: N39.0] Diagnosis: Other insomnia[ICD10: G47.09] Bhavna DAILY Car Throttle [facility] CPT-4: 01967 01/30/2018 Plan of Care Planned Activity Notes Codes Status Date Visit Diagnosis Plan: Dizziness and giddiness Discussi on: Check lab--CBC, CMP, TSH, PT/INR now ICD-9 : 780.4 ICD-10 : R42 11/19/2019 Visit Diagnosis Plan: Hypotension Discussion: BP today is okay ICD-9 : 458.9 ICD-10 : I95.9 11/19/2019 Visit Diagnosis Plan: Polyuria Discussion: UA normal ICD-9 : 788.42 ICD-10 : R35.8 11/19/2019 Patient Education: Colace- OptimizeRX Coupon [id number] https://www.InMyShow.[employer]/InMyShow/resources/getResource/61/[email or web address] Completed 11/19/2019 Visit Diagnosis Plan: Acute on [...] I10 09/25/2019 Visit Diagnosis Plan: Encounter for [facility] adult medical examination with abnormal findings Discussion: Mediterranean diet Combinati on of cardio and weight bearing exercise Obtain most recent lab COVID-19 precautions discussed Discussed telemedicine visits if needed during pandemic Follow Up: 3 months ICD-9 : V70.0 ICD-10 : Z00.01 09/25/2019 Appointment: [facility] [phone] [facility] [facility] Well Visit 09/25/2019 Care Plan: COMPREHEN METAB[place] : 14228-6 Pending 09/22/2019 Care Plan: COMPLETE CBC W/AUTO DIFF WBC LOINC : 62552-0 Pending 09/22/2019 Appointment: Bhavna Escalante [address] [facility] pt. feeling better and still had two [...] : K57.32 08/26/2019 Appointment: Jalyn Daily WPtel: [address] [place], [place] [address] ACUTE ILLNESS 08/26/2019 Appointment: Jalyn Daily WPtel: [address] [place], [place] [address] originally 4 mo follow up CANCELED 2018 Visit Diagnosis Plan: Clostridium difficile colitis Di scussion: Vancomycin daily for another week then 125mg every 3 days for 1 month then stop Fwup in September ICD-9 : 008.45 ICD-10 : A04.72 05/07/2019 Appointment: Jalyn Daily WPtel: [address] [place] [address] FOLLOW UP 05/07/2019 Visit Diagnosis Plan: Clostridium [...] : R60.9 04/23/2019 Appointment: Jalyn Daily WPtel: [address] [place], [place] [id number] Hospital Follow Up 04/23/2019 Appointment: Bhavna Escalante [address] [place] [address] US CANCELED 04/15/2019 Visit Diagnosis Plan: Left lower quadrant pain Discuss ion: will start with abdominal xray to rule out acute obstruction/constipation. if no acute findings, will treat as diverticulitis due to patient's past history. ICD-9 : 789.04 ICD-10 : R10.32 03/27/2019 Appointment: Bhavna Escalante [address] [id number] ACUTE ILLNESS 03/27/2019 Visit Diagnosis Plan: Acute kidney failure, unspecifie d Discussion: Was given Meloxicam at urgent care--discussed no NSAIDs, hydrate, repeat Chem 7 in 1 week ICD-9 : 584.9 ICD-10 : N17.9 03/18/2019 Appointment: Jalyn Daily WPtel: [address] [place] [address] ACUTE ILLNESS 03/18/2019 Visit Diagnosis Plan: Chronic atrial fibrillation Disc ussion: Following routinely with Cardiology ICD-9 : 427.31 ICD-10 : I48.2 02/12/2019 Visit Diagnosis Plan: Abdominal distension (gaseous) D iscussion: Trial of Zenpep q AC ICD-9 : 787.3 ICD-10 : R14.0 02/12/2019 Visit Diagnosis Plan: Essential (primary) hypertension Discussion: Stable ICD-9 : 401.9 ICD-10 : I10 02/12/2019 Appointment: Jalyn Daily WPtel: [address] [place] [address] [place] FOLLOW UP 02/12/2019 Appointment: Bhavna Escalante [address] [place] [address] [place] Canceled per guillermina. sending for mri [...] ICD-10 : M54.5 12/25/2018 Appointment: Bhavna Escalante [address] [place] [address] ACUTE ILLNESS 12/25/2018 Visit Diagnosis Plan: Low [...] ICD-10 : M54.5 12/12/2018 Appointment: Bhavna Escalante [address] [place] [address] ACUTE ILLNESS 12/12/2018 Patient Education: cyclobenzaprine- OptimizeRX Couchevy [id number] https://www.[employer]/sampleSpreadsave/resources/getResource/61/zz3483g5-[email or web address]-x3 Completed 12/12/2018 Appointment: Bhavna Escalante [address] [place] [address] [place] CANCELED 12/06/2018 Visit Diagnosis Plan: Other [...] : I48.2 10/10/2018 Appointment: Jalyn Daily WPtel: [address] [place] [address] US FOLLOW UP 10/10/2018 Visit Diagnosis Plan: [...] : I48.2 08/27/2018 Appointment: Jalyn Daily WPtel: [facility] [place] [address] [place] FOLLOW UP 08/27/2018 Visit Diagnosis Plan: [...] ICD-10 : I48.2 08/13/2018 Visit 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 Discussion: Increase Coumadin to 5mg po daily and repeat PT/INR in 2 weeks ICD-9 : V58.61 ICD-10 : Z79.01 08/13/2018 Appointment: [facility]al[facility] Daily [facility]el[facility] [address] [facility] [facility] 08/13/2018 Patient Education: bumetanide- OptimizeRX Coupon [phone] https://www.[employer]/InMyShow/resources/getResource/61/[email or web address]-iu Completed 08/13/2018 Patient Education: levothyroxine- OptimizeRX Coupon [phone] https://www.[employer]/InMyShow/resources/getResource/61/5159110k-0438-0a41-qq Completed 08/13/2018 Patient Education: warfarin- OptimizeRX Coupon [id number] https://www.[employer]/InMyShow/resources/getResource/61/90092511-lk26-07t8-6c Completed 08/13/2018 Patient Education: pantoprazole- [employer] [id number] https://www.[employer]/In[employer]Show/resources/getResource/61/x8600s89-64x6-23ap-4o Completed 08/13/2018 Patient Education: spironolactone- [employer] [phone] [id number] https://www.[employer]/InMyShow/resources/getResource/61/2is676u3-o094-2726-tb Completed 08/13/2018 Visit Diagnosis Plan: Anemia, unspecified [...] : I50.43 07/10/2018 Appointment: Jalyn Daily WPtel: [address] [place], [place] [address] 2nd FOLLOW UP 07/10/2018 Visit Diagnosis Plan: [...] : 427.31 ICD-10 : I48.2 05/06/2018 Appointment: Jalny Daily WPtel: [address] [place] [address] US FOLLOW UP 05/06/2018 Visit Diagnosis Plan: [...] ICD-10 : R60.0 04/17/2018 Appointment: Bhavna Escalante [address] [place] [address] ACUTE ILLNESS 04/17/2018 Patient Education: Patient Medication Summary Completed 04/17/2018 Care Plan: CT ABDOMEN W/O & W/DYE LOINC : 90925-3 Pending 04/17/2018 Care Plan: CT PELVIS W/O & W/DYE LOINC : 68003-7 Pending 04/17/2018 [facility]ment[facility] [phone] [id number] [facility] CANCELED 04/10/2018 Visit Diagnosis Plan: [...] R53.83 03/26/2018 Appointment: [facility]el[facility] [phone] [id number] [facility] Follow UP 03/26/2018 Patient Education: [...] ICD-10 : R31.9 03/15/2018 Appointment: Bhavna Escalante [address] [place] [address] ACUTE ILLNESS 03/15/2018 Patient Education: Patient Medication Summary Completed 03/15/2018 Visit Diagnosis Plan: Primary insomnia Discussion: Tri al of elavil 10mg po q HS ICD-9 : 780.52 ICD-10 : F51.01 02/26/2018 Visit Diagnosis Plan: Functional dyspepsia Discussion: Increase protonix to 40mg po BID Follow Up: 1 months ICD-9 : 536.8 ICD-10 : K30 02/26/2018 Appointment: Jalyn Daily WPtel: [address] [place] [address] WELCOME TO MEDICARE 02/26/2018 Patient Education: Patient Medication Summary Completed 02/26/2018 Referral: Song Noonan WPtel: [address] [place] [address] [place] Referral Initiated 02/19/2018 Appointment: Jalyn Daily WPtel: [address] [place] [address] US LAB 02/06/2018 Patient Education: Patient Medication Summary Completed 02/06/2018 Appointment: Jalyn Daily WPtel: [address] [place] [address] US CANCELED 02/01/2018 Care Plan: US EXAM ABDOM COMPLETE liver LOINC : 69362-0 Pending 01/31/2018 Visit Diagnosis Plan: Essential (primary) [...] ICD-10 : R53.83 01/30/2018 Visit Diagnosis Plan: USP (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 Discussion: instructed [...] ICD-10 : G47.09 01/30/2018 Appointment: Bhavna Escalante [address] [place], [place] [id number] NEW PATIENT 01/30/2018 Patient Education: [...]
--- OUTSIDE RECORDS SUMMARY | 2020-02-10 14:06 | XMS REPORT | CCD ---
Author Author Riana Escalante Organization [facility] Address [address] [place] [address] Phone Unavailable Care Team Providers Care Prototype Engineer Manager Name Role Phone PP Unavailable CCM Unavailable Summary Purpose Interface Exchange Insurance Providers Payer name Policy type / Coverage type Covered democrat ID Effective Begin Date Effective End Date WPS MEDICARE PART B [place] Medicare Part B [id number] 2017 Unknown Cigna Medicare Part B [id number] 2017 Unknown Family History Family History data not found Social History Social History Element Codes Description Effective Dates Tobacco history SNOMED CT: 253178596 Never smoker 01/30/[address]: 783244760 Never drinks alcohol 2017 Allergies, Adverse Reactions, Alerts Substance Reaction Codes Entered Date Inactivated Date Status * NO KNOWN ENVIRONMENTAL ALLERGIES Unknown 01/30/2018 N o Inactive Date Active * NO KNOWN FOOD ALLERGIES Unknown 01/30/2018 No Inactiv e Date Active * NO KNOWN DRUG ALLERGIES Unknown 01/30/2018 No Inactiv e Date Active Problems Condition Codes Effective Dates Condition Status 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 ICD-9: 428.43 ICD-10: I50.43 05/06/2018 Active Chronic kidney disease ICD-9: 585.9 ICD-10: N18.9 09/25/2019 Active Encounter for general adult medical examination with a bnormal findings ICD-9: V70.0 ICD-10: Z00.01 02/26/2018 Active Essential (primary) hypertension ICD-9: 401.9 ICD-10: I10 01/30/2018 Active longterm (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 ICD-9: V58.6 1 [...] Start Date Stop Date Status Fill Instructions warfarin 5 mg tablet RxNorm: 522786 1 Tablet(s) Oral MW F and 1/2 tablet (2.5mg) Salma Miranda Sat, Brianne 09/30/2019 12/29/2019 Active levothyroxine 25 mcg tablet RxNorm: 335484 TAKE ONE TABLET BY M OUTH DAILY 09/30/2019 No Stop Date Active potassium chloride ER 10 mEq capsule,extended release RxNorm : 611218 1 Capsule(s) Oral two times a day on and 1 capsule Sv-Tt-[place]ib-[place] 09/26/2019 09/26/2019 Inactive Colace 100 mg capsule RxNorm: 7814716 1 Capsule(s) Oral QD 08/26/1911/24/2019 Active vancomycin 125 mg capsule RxNorm: 340567 2 Capsule(s) Oral Q8H 08/0909/05/2019 Inactive warfarin 5 mg tablet RxNorm: 234618 1 Tablet(s) Oral MW F and 1/2 tablet (2.5mg) Salma Miranda Sat & Sun 08/26/2019 09/29/2019 Inactive levothyroxine 25 mcg tablet RxNorm: 049691 1 Tablet(s) PO QD 201909/29/2019 Inactive spironolactone 25 mg tablet RxNorm: 113388 TAKE 1 TABLET BY DOUGLAS TH TWICE DAILY 06/22/2019 09/19/2019 Inactive losartan 25 mg tablet RxNorm: 442730 TAKE 1 TABLET BY M OUTH ONCE DAILY IN THE MORNING 05/26/2019 No Stop Date Active bumetanide 1 mg tablet RxNorm: 257828 TAKE 1 TABLET BY MOUTH TWICE DAILY AT 6AM AND 6PM 05/23/2019 No Stop Date Active vancomycin 125 mg capsule RxNorm: 939128 1 Capsule(s) Oral Q3D 04/1008/25/2019 Inactive pantoprazole 40 mg tablet,delayed release RxNorm: 438984 1-2 Ta blet(s) Oral QD 04/23/2019 05/23/2019 Inactive potassium chloride ER 10 mEq capsule,extended release RxNorm : 631786 1 Capsule(s) Oral QD 04/23/2019 09/25/2019 Inactive warfarin 5 mg tablet RxNorm: 237783 Tablet(s) Oral Take 1 tablet (5mg) by mouth on and Sun then 1/2 tablet (2.5mg) on Sun, Sun, , Sat and Sun 04/23/2019 08/25/2019 Inactive temazepam 15 mg capsule RxNorm: 269802 TAKE 1 TO 2 CAPS ULES BY MOUTH AT BEDTIME NEEDED FOR SLEEP 04/08/2019 09/25/2019 Inactive Cipro 250 mg tablet RxNorm: 322892 1 Tablet(s) Oral two times a day 03/27/2019 04/03/2019 Inactive metronidazole 500 mg tablet RxNorm: 325462 1 Tablet(s) Oral thr ee times a day 03/27/2019 04/03/2019 Inactive bumetanide 1 mg tablet RxNorm: 766743 1 Tablet(s) PO BID (6am a nd 6pm) 02/13/2019 05/13/2019 Inactive levothyroxine 25 mcg tablet RxNorm: 900875 1 Tablet(s) PO QD 201807/13/2019 Inactive warfarin 5 mg tablet RxNorm: 411103 1 TABLET(S) PO TU , WED, THURS, SAT AND SUN AND 1/2 TABLET ON 02/04/2019 02/11/2019 Inactive Kendra ent requests 90 days supply warfarin 5 mg tablet RxNorm: 994814 1 TABLET(S) PO TUES , WED, THURS, SAT AND SUN AND 1/2 TABLET ON 02/03/2019 02/03/2019 Inactive Kendra ent requests 90 days supply levothyroxine 25 mcg tablet RxNorm: 388135 1 Tablet(s) PO QD 201802/03/2019 Inactive warfarin 5 mg tablet RxNorm: 873884 1 Tablet(s) PO Tu , Sun, Th, Sat and Sun and 1/2 tablet on Sun/Sun01/31/2019 02/02/2019 Inactive temazepam 15 mg capsule RxNorm: 588887 TAKE 1 TO 2 CAPS ULES BY MOUTH AT BEDTIME NEEDED FOR SLEEP 01/31/2019 04/07/2019 Inactive cyclobenzaprine 10 mg tablet RxNorm: 056281 1 Tablet(s) PO Q8H as needed 12/30/2018 09/25/2019 Inactive losartan 25 mg tablet RxNorm: 826200 1 Tablet(s) PO QAM 12/27/2018 Inactive Lidoderm 5 % topical patch RxNorm: 5542856 1 Application TOP Q12H and then off for 12 hours 12/25/2018 01/23/2019 Inactive Lidoderm 5 % topical patch RxNorm: 0556536 1 Application TOP Q12H and then off for 12 hours 12/25/2018 12/24/2018 Inactive cyclobenzaprine 5 mg tablet RxNorm: 573110 1 Tablet(s) PO Q8H a s needed 12/12/2018 12/24/2018 Inactive spironolactone 25 mg tablet RxNorm: 213217 1 Tablet(s) PO BID 09/2006/16/2019 Inactive change in directions to BID pantoprazole 40 mg tablet,delayed release RxNorm: 468636 1 Tabl et(s) PO QD 09/20/2018 04/22/2019 Inactive Patient requests 9 0 days supply spironolactone 25 mg tablet RxNorm: 345352 1 Tablet(s) PO BID 08/2609/19/2018 Inactive change in directions to BID pantoprazole 40 mg tablet,delayed release RxNorm: 555036 1 Tabl et(s) PO QD 08/15/2018 09/19/2018 Inactive Patient requests 9 0 days supply carvedilol 6.25 mg tablet RxNorm: 395430 1 Tablet(s) PO BID 019 02/08/2019 Inactive pantoprazole 40 mg tablet,delayed release RxNorm: 780056 1 Tablet(s) PO QD 1 TABLET(S) PO BID 08/13/2018 08/15/2018 Inactive Patient reque sts 90 days supply bumetanide 1 mg tablet RxNorm: 557649 1 Tablet(s) PO BID (6am a nd 6pm) 08/13/2018 02/08/2019 Inactive bumetanide 0.5 mg tablet RxNorm: 123489 1 Tablet(s) PO QPM three days a week--Sunday, Sun, Sunday instead of 1mg dose in evening 08/13/201812/2018 Inactive levothyroxine 25 mcg tablet RxNorm: 899771 1 Tablet(s) PO QD 201801/30/2019 Inactive spironolactone 25 mg tablet RxNorm: 216907 1 Tablet(s) PO QD 201808/25/2018 Inactive losartan 25 mg tablet RxNorm: 189825 1 Tablet(s) PO QAM 08/13/2018 Inactive warfarin 5 mg tablet RxNorm: 055829 1 Tablet(s) PO QD 08/13/201808/09 Inactive pantoprazole 40 mg tablet,delayed release RxNorm: 725476 1 TABL ET(S) PO BID 08/02/2018 08/12/2018 Inactive Patient requests 9 0 days supply temazepam 15 mg capsule RxNorm: 747897 1-2 Capsule(s) P O QHS as needed for sleep 2018 01/31/2019 Inactive Restoril 15 mg capsule RxNorm: 573739 1-2 Capsule(s) PO QHS as needed for sleep 06/04/2018 08/12/2018 Inactive potassium chloride ER 10 mEq capsule,extended release RxNorm : 463769 2 CAPSULE(S) PO QD 05/07/2018 08/04/2018 Inactive Patient reque sts 90 days supply temazepam 22.5 mg capsule RxNorm: 521738 1 Capsule(s) P O QHS as needed for sleep 05/06/2018 08/12/2018 Inactive potassium chloride ER 10 mEq capsule,extended release RxNorm : 499394 2 Capsule(s) PO QD 05/06/2018 05/06/2018 Inactive ropinirole 1 mg tablet RxNorm: 629014 1 TABLET(S) PO QHS FOR RE STLESS LEGS 03/27/2018 04/25/2018 Inactive Patient requests 9 0 days supply ropinirole 1 mg tablet RxNorm: 041293 1 Tablet(s) PO QHS for re stless legs 03/26/2018 03/26/2018 Inactive cefdinir 300 mg capsule RxNorm: 340059 1 Capsule(s) PO BID 03/26/20 18 03/30/2018 Inactive temazepam 15 mg capsule RxNorm: 931390 1 Capsule(s) PO QHS as neede d 03/20/2018 03/25/2018 Inactive Lunesta 3 mg tablet RxNorm: 994373 1 Tablet(s) PO QHS as needed for sleep 03/04/2018 03/19/2018 Inactive amitriptyline 10 mg tablet RxNorm: 662036 1 Tablet(s) PO QHS fo r sleep 02/26/2018 03/03/2018 Inactive escitalopram 20 mg tablet RxNorm: 544443 1 Tablet(s) PO QHS 018 08/12/2018 Inactive pantoprazole 40 mg tablet,delayed release RxNorm: 550312 1 Tabl et(s) PO BID 02/26/2018 04/26/2018 Inactive Coumadin 2.5 mg tablet RxNorm: 837368 1 Tablet(s) PO MWF 02/18/2018 0 07/22/2018 Inactive amiodarone 200 mg tablet RxNorm: 210160 1 Tablet(s) PO QD No Start Da te Active colestipol 1 gram tablet RxNorm: 7178731 1 Tablet(s) PO BID No Start Date Active pantoprazole 40 mg tablet,delayed release RxNorm: 151635 1 Tabl et(s) PO QD No Start Date Active pantoprazole 40 mg tablet,delayed release RxNorm: 877053 1 Tabl et(s) PO QD No Start Date 02/25/2018 Inactive bumetanide 1 mg tablet RxNorm: 313765 1 Tablet(s) PO BID (6am a nd 6pm) No Start Date 08/12/2018 Inactive potassium chloride ER 10 mEq tablet,extended release RxNorm: 357453 1 Tablet(s) PO QD No Start Date 02/11/2019 Inactive levothyroxine 25 mcg tablet RxNorm: 324057 1 Tablet(s) PO QD No Sta rt Date 08/12/2018 Inactive spironolactone 25 mg tablet RxNorm: 206956 1 Tablet(s) PO QD No Sta rt Date 08/12/2018 Inactive warfarin 5 mg tablet RxNorm: 080007 1 Tablet(s) PO MWF No Start Date 08/12/2018 Inactive warfarin 5 mg tablet RxNorm: 321968 1 Tablet(s) PO Tu , Wed, Th, Sat and Sun then 1/2 tablet (2.5mg) on Sun & Fri No Start Date 08/12/2018 Inactive losartan 25 mg tablet RxNorm: 227443 1 Tablet(s) PO QAM No Start Da te 08/12/2018 Inactive carvedilol 6.25 mg tablet RxNorm: 051141 1 Tablet(s) PO BID No Star t Date 08/12/2018 Inactive warfarin 2.5 mg tablet RxNorm: 602993 1 Tablet(s) PO , Thur s, Sat and Sun No Start Date 08/12/2018 Inactive Coumadin 2.5 mg tablet RxNorm: 447369 Tablet(s) Mon Sun and Sun PO No Start Date 02/17/2018 Inactive Children's Multivitamin with Iron tablet RxNorm: 1 Table t(s) PO QD No Start Date 04/22/2019 Inactive potassium chloride ER 20 mEq tablet,extended release(p art/cryst) RxNorm: 4091733 2 Tablet(s) PO QD No Start Date 05/05/2018 Inactive Coumadin 5 mg tablet RxNorm: 879767 Tablet(s) PO No Start Date 2017 Inactive mexiletine 200 mg capsule RxNorm: 8174739 1 Capsule(s) PO BID No St art Date 03/25/2018 Inactive ferrous sulfate 325 mg (65 mg iron) tablet RxNorm: 048570 1 Tab let(s) PO QD No Start Date 07/22/2018 Inactive cyclobenzaprine 10 mg tablet RxNorm: 398900 1 Tablet(s) PO Q8H as needed No Start Date 12/29/2018 Inactive potassium chloride ER 10 mEq capsule,extended release RxNorm : 951661 2 Capsule(s) PO QD No Start Date 12/11/2018 Inactive Coumadin 5 mg tablet RxNorm: 828442 1 Tablet(s) PO Tues, Thurs, Sat and Sun No Start Date 07/22/2018 Inactive Restoril 15 mg capsule RxNorm: 022510 1-2 Capsule(s) PO QHS as needed for sleep No Start Date 05/05/2018 Inactive metoprolol succinate ER 25 mg tablet,extended release 24 hr RxNorm: 781479 1 Tablet(s) PO QD No Start Date 08/12/2018 Inactive Entresto 24 mg-26 mg tablet RxNorm: 9829876 1 Tablet(s) PO BID No S tart Date 08/12/2018 Inactive warfarin 5 mg tablet RxNorm: 607206 1 Tablet(s) PO , Sun, , Sat and Sun and 1/2 tablet on Sun/Sun No Start Date 01/30/2019 Inactive amiodarone 200 mg tablet RxNorm: 961324 2 Tablet(s) PO BID No Start Date 10/09/2018 Inactive furosemide 20 mg tablet RxNorm: 555020 1 Tablet(s) PO QD No Start D ate 08/12/2018 Inactive amiodarone 200 mg tablet RxNorm: 026578 1 Tablet(s) PO BID No Start Date 08/26/2018 Inactive atorvastatin 40 mg tablet RxNorm: 163126 1 Tablet(s) PO QD No Start Date 08/12/2018 Inactive warfarin 5 mg tablet RxNorm: 811546 1/2 Tablet(s) PO on Sun, Sun, Sun, Sun then 1 tablet on Sun, , Sat No Start Date 04/22/2019 Inactive Medication Administered No Medication Administered data Immunizations Vaccine Codes Date Status Pneumovax CVX: 33 05/14/2019 Hepatitis A CVX: 83 03/25/2019 Influenza CVX: 135 03/25/2019 Results Observation Observation Code Item Item Code Result Date S vice Location UA W/MICR 87969 UA Urine Appear Normal 02/06/2018 Unk nown UA W/MICR 22701 UA Protein 3+ 02/06/2018 Unknown UA W/MICR 10043 UA Hemoglobin Trace 02/06/2018 Unkno wn UA W/MICR 95493 UA Glucose Negative 02/06/2018 Unknown UA W/MICR 32753 UA Ketones Negative 02/06/2018 Unknown UA W/MICR 86356 UA pH 5.5 02/06/2018 Unknown UA W/MICR 36373 U Spec [place] 1.025 02/06/2018 Unkn own UA W/MICR 52975 UA Bilirubin Negative 02/06/2018 Unknow n UA W/MICR 00292 UA Leuk Esteras Trace 02/06/2018 Unk nown UA W/MICR 05847 UA Nitrite NEG 02/06/2018 Unknown UA W/MICR 33516 UA WBC/hpf 11-25 02/06/2018 Unknown UA W/MICR 81029 UA RBC hpf 0-5 02/06/2018 Unknown UA W/MICR 85931 UA Hyaline Cast 16-25 02/06/2018 Unk nown UA W/MICR 96089 UA Squam Epi Few 02/06/2018 Unknow n Procedures Procedure Codes Date INITIAL PREVENTIVE EXAM CPT-4: G0402 09/25/2019 URINALYSIS NONAUTO W/O SCOPE CPT-4: 30138 03/18/2019 URINE CULTURE/ COLONY COUNT CPT-4: 92197 03/18/2019 URINALYSIS NONAUTO W/O SCOPE CPT-4: 36403 12/12/2018 URINE CULTURE/ COLONY COUNT CPT-4: 14737 03/26/2018 URINALYSIS NONAUTO W/O SCOPE CPT-4: 59046 03/15/2018 INITIAL PREVENTIVE EXAM CPT-4: G0402 02/26/2018 URINALYSIS NONAUTO W/O SCOPE CPT-4: 05521 02/06/2018 URINE CULTURE/ COLONY COUNT CPT-4: 76738 02/06/2018 UA W/MICR CPT-4: 12372 02/06/2018 CUR TOBACCO NON-USER CPT-4: G8457 01/30/2018 REPAIR BLADDER & VAGINA CPT-4: 96102 01/06/2017 REPAIR OF RECTOCELE CPT-4: 34142 01/06/2017 BREAST SURGERY PROCEDURE CPT-4: 57201 Unknown LAPARO CHOLECYSTECTOMY/EXPLR CPT-4: 12016 Unknown HYSTERECTOMY/REVISE VAGINA CPT-4: 00993 Unknown Vital Signs Date Vital 09/25/2019 Blood Pressure 1: 131/75 Code: 8480-6 [...] 1: 106/58 Code: 8480-6 BMI: 26.3 Code: 85495-7 Heart Rate 1: 72 bpm Height: 4'10" Respiratory Rate: 20 bpm SpO2: 97% Tempera ture: 36.6 (C) / 97.8 (F) Weight: 128 lbs 07/10/2018 Blood Pressure 1: 122/70 Code: 8480-6 BMI: 28.6 Code: 43465-8 Heart Rate 1: 80 bpm Height: 4'10" Respiratory Rate: 20 bpm SpO2: 96% Tempera ture: 36.9 (C) / 98.4 (F) Weight: 139 lbs 05/06/2018 Blood Pressure 1: 112/54 Code: 8480-6 BMI: 27.5 Code: 74234-0 Heart Rate 1: 80 bpm Height: 4'10" [...] 1: 146/80 Code: 8480-6 BMI: 30.0 Code: 44970-0 Heart Rate 1: 76 bpm Height: 4'10" Respiratory Rate: 20 bpm SpO2: 97% Tempera ture: 36.7 (C) / 98.1 (F) Weight: 146 lbs 02/26/2018 Blood Pressure 1: 126/80 Code: 8480-6 BMI: 29.6 Code: 95388-4 Heart Rate 1: 80 bpm Height: 4'10" Respiratory Rate: 18 bpm SpO2: 96% Tempera ture: 37.0 (C) / 98.6 (F) Weight: 144 lbs 01/30/2018 Blood Pressure 1: 120/78 Code: 8480-6 BMI: 29.6 Code: 43146-9 Heart Rate 1: 84 bpm Height: 4'10" Respiratory Rate: 20 bpm SpO2: 97% Tempera ture: 36.0 (C) / 96.8 (F) Weight: 144 lbs Functional Status No Functional Status data Reason For Visit Reason For Visit Effective Dates Notes Annual Checkup 09/25/2019 pt labs are scanned into chart abdominal pain 08/26/2019 follow up 05/07/2019 follow up 04/23/2019 [facility] abdominal pain 03/27/2019 left lower quadrant [...] up 07/10/2018 Hospital/ER fwup follow up 05/06/2018 [facility] abdominal pain 04/17/2018 follow up 03/26/2018 dizziness 03/15/2018 Patient had bladder biopsy on Sunday by Dr Noonan. states she has been holding her coumadin since Sunday insomnia 02/26/2018 blood in urine 02/06/2018 ~generic 01/30/2018 Establishing Care Encounters Encounter Performer Location Codes Date ([id number]) OFFICE/OUTPATIENT VISIT EST Diagnosis: Sigmoid diverticulitis[ICD10: K57.32] Jalyn DAILY [facility] CPT-4: 76677 08/26/2019 ([id number]) OFFICE/OUTPATIENT VISIT EST Diagnosis: Clostridium difficile colitis[ICD10: A04.72] Jalyn Leigh [facility] CPT-4: 33710 05/07/2019 ([id number]) OFFICE/OUTPATIENT VISIT EST Diagnosis: Clostridium difficile colitis[ICD10: A04.72] Diagnosis: Edema[ICD10: R60.9] Jalyn Leigh [facility] CPT-4: 03851 04/23/2019 ([id number]) OFFICE/OUTPATIENT VISIT EST Diagnosis: Constipation[ICD10: K59.00] Diagnosis: Left lower quadrant pain[ICD10: R10.32] Bhavna DAILY DO [facility] CPT-4: 60696 03/27/2019 ([id number]) OFFICE/OUTPATIENT VISIT EST Diagnosis: Acute kidney failure, unspecified[ICD10: N17.9] Jalyn DAILY [facility] CPT-4: 67599 03/18/2019 ([id number]) OFFICE/OUTPATIENT VISIT EST Diagnosis: Essential (primary) hypertension[ICD10: I10] Diagnosis: Chronic atrial fibrillation[ICD10: I48.2] Diagnosis: Mixed hyperlipidemia[ICD10: E78.2] Diagnosis: Other fatigue[ICD10: R53.83] Diagnosis: Abdominal distension (gaseous)[ICD10: R14.0] Jalyn DAILY [facility] CPT-4: 77725 02/12/2019 ([id number]) OFFICE/OUTPATIENT VISIT EST Diagnosis: Low back pain[ICD10: M54.5] Bhavna DOUGHERTY S. Michelle RENDER [facility] CPT-4: 91683 12/25/2018 ([id number]) OFFICE/OUTPATIENT VISIT EST Diagnosis: Low back pain[ICD10: M54.5] Bhavna DOUGHERTY S. Michelle RENDER [facility] CPT-4: 53850 12/12/2018 ([id number]) OFFICE/OUTPATIENT VISIT EST Diagnosis: Anemia, unspecified[ICD10: D64.9] Diagnosis: Chronic atrial fibrillation[ICD10: I48.2] Diagnosis: Other fatigue[ICD10: R53.83] Jalyn DAILY [facility] CPT-4: 57439 10/10/2018 ([id number]) OFFICE/OUTPATIENT VISIT EST Diagnosis: Acute on chronic combined systolic (congestive) and diastolic (congestive) heart failure[ICD10: I50.43] Diagnosis: Chronic atrial fibrillation[ICD10: I48.2] Jalyn DAILY [facility] CPT-4: 91548 08/27/2018 ([id number]) OFFICE/OUTPATIENT VISIT EST Diagnosis: Chronic atrial fibrillation[ICD10: I48.2] 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] Diagnosis: longterm (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[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] Jalyn DAILY [facility] CPT-4: 01214 08/13/2018 ([id number]) OFFICE/OUTPATIENT VISIT EST Diagnosis: Acute on chronic combined systolic (congestive) and diastolic (congestive) heart failure[ICD10: I50.43] Diagnosis: Essential (primary) hypertension[ICD10: I10] Diagnosis: Anemia, unspecified[ICD10: D64.9] Jalyn DAILY [facility] CPT-4: 01529 07/10/2018 ([id number]) OFFICE/OUTPATIENT VISIT EST Diagnosis: Chronic atrial fibrillation[ICD10: I48.2] Diagnosis: Acute on chronic combined systolic (congestive) and diastolic (congestive) heart failure[ICD10: I50.43] Diagnosis: Localized edema[ICD10: R60.0] Jalyn DAILY [facility] CPT-4: 24501 05/06/2018 ([id number]) OFFICE/OUTPATIENT VISIT EST Diagnosis: Generalized abdominal pain[ICD10: R10.84] Diagnosis: Pelvic and perineal pain[ICD10: R10.2] Diagnosis: Localized edema[ICD10: R60.0] Bhavna DAILY [facility] CPT-4: 71106 04/17/2018 ([id number]) OFFICE/OUTPATIENT VISIT EST Diagnosis: Urinary tract infection, site not specified[ICD10: N39.0] Diagnosis: Other insomnia[ICD10: G47.09] Diagnosis: Other fatigue[ICD10: R53.83] Diagnosis: Other forms of dyspnea[ICD10: R06.09] Diagnosis: Chronic atrial fibrillation[ICD10: I48.2] Diagnosis: Restless legs syndrome[ICD10: G25.81] Jalyn DAILY [facility] CPT-4: 01167 03/26/2018 ([id number]) OFFICE/OUTPATIENT VISIT EST Diagnosis: Altered mental status, unspecified[ICD10: R41.82] Diagnosis: longterm (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[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] Diagnosis: Hematuria, unspecified[ICD10: R31.9] Bhavna DAILY [facility] CPT-4: 12130 03/15/2018 ([id number]) NURSE/OUTPATIENT VISIT EST Diagnosis: Urinary tract infection, site not specified[ICD10: N39.0] Jalyn Abimbola DAILY [facility] CPT-4: 25212 02/06/2018 OFFICE/OUTPATIENT VISIT NEW Diagnosis: longterm (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[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] Diagnosis: Essential (primary) hypertension[ICD10: I10] Diagnosis: Mixed hyperlipidemia[ICD10: E78.2] Diagnosis: Other fatigue[ICD10: R53.83] Diagnosis: Cardiac arrhythmia, unspecified[ICD10: I49.9] Diagnosis: Generalized abdominal pain[ICD10: R10.84] Diagnosis: Urinary tract infection, site not specified[ICD10: N39.0] Diagnosis: Other insomnia[ICD10: G47.09] Bhavna DAILY [facility] CPT-4: 85989 01/30/2018 Plan of Care Planned Activity Notes Codes Status Date Visit Diagnosis Plan: Encounter for [facility] adult medical examination with abnormal findings [...] I10 09/25/2019 Appointment: [facility]al[facility] [phone] [facility] Annual Well Visit 09/25/2019 Care Plan: COMPREHEN METABOLIC PANEL [place] : 70776-9 Pending 09/22/2019 Care Plan: COMPLETE CBC W/AUTO DIFF WBC LOINC : 37124-1 Pending 09/22/2019 Appointment: Bhavna Escalante [address] pt[address] feeling better and still had [...] K57.32 08/26/2019 Appointment: Jalyn Daily WPtel: [address] [place] [address] ACUTE ILLNESS 08/26/2019 Appointment: Jalyn Daily WPtel: [address] [place] [address] originally 4 mo follow up CANCELED 2018 Visit Diagnosis Plan: Clostridium difficile colitis Di scussion: Vancomycin daily for another week then 125mg every 3 days for 1 month then stop Fwup in September ICD-9 : 008.45 ICD-10 : A04.72 05/07/2019 Appointment: Jalyn Dailytel: [address] [place] [address] FOLLOW UP 05/07/2019 Visit Diagnosis Plan: Edema [...] A04.72 04/23/2019 Appointment: Jalyn Daily WPtel: [address] [place] [address] Hospital Follow Up 04/23/2019 Appointment: Bhavna Escalante [address] [facility] US CANCELED 04/15/2019 Visit Diagnosis Plan: Left lower quadrant pain Discuss ion: will start with abdominal xray to rule out acute obstruction/constipation. if no acute findings, will treat as diverticulitis due to patient's past history. ICD-9 : 789.04 ICD-10 : R10.32 03/27/2019 Appointment: Bhavna Escalante [address] [facility] ACUTE ILLNESS 03/27/2019 Visit Diagnosis Plan: Acute kidney failure, unspecifie d Discussion: Was given Meloxicam at urgent care--discussed no NSAIDs, hydrate, repeat Chem 7 in 1 week ICD-9 : 584.9 ICD-10 : N17.9 03/18/2019 Appointment: Jalyn Daily WPtel: [address] [place], [place] [phone] [place] ACUTE ILLNESS 03/18/2019 Visit Diagnosis Plan: Abdominal distension (gaseous) D iscussion: Trial of Zenpep q AC ICD-9 : 787.3 ICD-10 : R14.0 02/12/2019 Visit Diagnosis Plan: Essential (primary) hypertension Discussion: Stable ICD-9 : 401.9 ICD-10 : I10 02/12/2019 Visit Diagnosis Plan: Chronic atrial fibrillation Disc ussion: Following routinely with Cardiology ICD-9 : 427.31 ICD-10 : I48.2 02/12/2019 Appointment: Jalyn Daily WPtel: [address] [place], [place] [phone] [place] FOLLOW UP 02/12/2019 Appointment: Bhavna Escalante [address] [place], [place] [phone] [place] Canceled per guillermina. sending for mri [...] ICD-10 : M54.5 12/25/2018 Appointment: Bhavna Escalante [address] [place] [id number] ACUTE ILLNESS 12/25/2018 Visit Diagnosis Plan: Low [...] ICD-10 : M54.5 12/12/2018 Appointment: Bhavna Escalante [address] [place], [place] [phone] ACUTE ILLNESS 12/12/2018 Patient Education: cyclobenzaprine- [employer] Coupon [id number] [email or web address] Completed 12/12/2018 Appointment: Bhavna Escalante [address] [place], [place] [phone] CANCELED 12/06/2018 Visit Diagnosis Plan: Anemia, unspecified Discussion: Update CBC ICD-9 : 285.9 ICD-10 : D64.9 10/10/2018 Visit Diagnosis Plan: Chronic atrial fibrillation Disc ussion: Cardiology monitoring PT/INR Follow Up: 4 months ICD-9 : 427.31 ICD-10 : I48.2 10/10/2018 Visit Diagnosis Plan: Other fatigue Discussion: Increa se activity--discussed 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 ICD-9 : 780.79 ICD-10 : R53.83 10/10/2018 Appointment: [facility]el[facility] [phone] [facility] [facility] FOLLOW UP 10/10/2018 Visit Diagnosis Plan: [...] 428.43 ICD-10 : I50.43 08/27/2018 Appointment: [facility]ailytel[facility] [phone] [facility] [place] FOLLOW UP 08/27/2018 Visit Diagnosis Plan: [...] ICD-10 : I48.2 08/13/2018 Visit Diagnosis Plan: longterm (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 Discussion: Increase Coumadin to 5mg po daily and repeat PT/INR in 2 weeks ICD-9 : V58.61 ICD-10 : Z79.01 08/13/2018 Appointment: Jalyn Daily [facility]el[facility] [phone] [facility] [place] FOLLOW UP 08/13/2018 Patient Education: bumetanide- [employer] Coupon [phone] [email or web address]/[email or web address] Completed 08/13/2018 Patient Education: levothyroxine- [employer] Coupon [phone] [id number] [email or web address]/resources/[email or web address] Completed 08/13/2018 Patient Education: warfarin- [employer] Coupon [id number] https://www.[employer]/resources/getResource/61/17666320-ul74-80r6-7l Completed 08/13/2018 Patient Education: pantoprazole- [employer] Coupon [phone] https://www.[employer]/resources/getResource/61/a4277y60-74s5-47kk-6p Completed 08/13/2018 Patient Education: spironolactone- [employer] Coupon [phone] [id number] https://www.[employer].com/samplemd/resources/getResource/61/3id504d1-t031-2553-kt Completed 08/13/2018 Visit Diagnosis Plan: Anemia, unspecified [...] I50.43 07/10/2018 Appointment: Jalyn Daily WPtel: [address] [place], [place] [id number] [address] FOLLOW UP 07/10/2018 Visit Diagnosis Plan: [...] : I48.2 05/06/2018 Appointment: Jalyn Daily WPtel: [facility] US FOLLOW UP 05/06/2018 Visit Diagnosis Plan: [...] : R10.2 04/17/2018 Appointment: Bhavna Escalante [address] [place], [place] [id number] ACUTE ILLNESS 04/17/2018 Patient Education: Patient Medication Summary Completed 04/17/2018 Care Plan: CT ABDOMEN W/O & W/DYE LOINC : 32931-5 Pending 04/17/2018 Care Plan: CT PELVIS W/O & W/DYE LOINC : 22893-2 Pending 04/17/2018 Appointment: Jalyn Daily WPtel: [address] [place] [address] US CANCELED 04/10/2018 Visit Diagnosis Plan: Chronic atrial fibrillation Disc ussion: Sees cardiology next week ICD-9 : 427.31 ICD-10 : I48.2 03/26/2018 Visit Diagnosis Plan: Restless legs syndrome Discussio n: Trial of requip 1mg po q HS ICD-9 : 333.94 ICD-10 : G25.81 03/26/2018 Visit Diagnosis Plan: Other fatigue Discussion: Multif actoria ICD-9 : 780.79 ICD-10 : R53.83 03/26/2018 Visit Diagnosis Plan: Urinary tract infection, site no t specified Discussion: 5 more days of omnicef ICD-9 : 599.0 ICD-10 : N39.0 03/26/2018 Visit Diagnosis Plan: Other insomnia Discussion: Wayne nue restoril at 15-30mg po q HS prn sleep ICD-9 : 327.09 ICD-10 : G47.09 03/26/2018 Visit Diagnosis Plan: Other forms of dyspnea Discussio n: Discussed starting pulmonary rehab vs cardiac rehab Follow Up: 1 months ICD-9 : 786.09 ICD-10 : R06.09 03/26/2018 Appointment: Jalyn Daily WPtel: [facility] ER Follow UP 03/26/2018 Patient Education: Patient [...] ICD-10 : R41.82 03/15/2018 Appointment: Bhavna Escalante [address] [place] [address] ACUTE ILLNESS 03/15/2018 Patient Education: Patient Medication Summary Completed 03/15/2018 Visit Diagnosis Plan: Primary insomnia Discussion: Tri al of elavil 10mg po q HS ICD-9 : 780.52 ICD-10 : F51.01 02/26/2018 Visit Diagnosis Plan: Functional dyspepsia Discussion: Increase protonix to 40mg po BID Follow Up: 1 months ICD-9 : 536.8 ICD-10 : K30 02/26/2018 Appointment: Jalyn Daily WPtel: [address] [place] [address] WELCOME TO MEDICARE 02/26/2018 Patient Education: Patient Medication Summary Completed 02/26/2018 Referral: Song Noonan WPtel: [address] [place] [address] Referral Initiated 02/19/2018 Appointment: Jalyn Daily WPtel: [address] [place], [place] [id number] 02/06/2018 Patient Education: Patient Medication Summary Completed 02/06/2018 Appointment: Jalyn Daily WPtel: [phone] [id number] US CANCELED 02/01/2018 Care Plan: US EXAM ABDOM COMPLETE liver LOINC : 54725-4 Pending 01/31/2018 Visit Diagnosis Plan: Other fatigue Discussion: will o rder fasting blood work to assess for any anemia or infection especially due to recent surgery and bleeding risks. 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 will discuss efficacy at next visit. needs to follow up in one month ICD-9 : 327.09 ICD-10 : G47.09 01/30/2018 Visit Diagnosis Plan: Cardiac arrhythmia, unspecified Discussion: keep appt with dr. cole on feb 07. ICD-9 : 427.9 ICD-10 : I49.9 01/30/2018 Visit Diagnosis Plan: Generalized abdominal pain [...] ICD-10 : I10 01/30/2018 Appointment: Bhavna Escalante [address] [facility] US NEW PATIENT 01/30/2018 Patient Education: Patient Medication Summary Completed 01/30/2018 Instructions No Instructions Medical Equipment No Medical Equipment data Health Concerns Section Health Concerns data not found Goals Section Goals data not found Interventions Section Interventions data not found Health Status Evaluations/Outcomes Section Health Status Evaluations/Outcomes data not found Advance Directives No Advance Directive data
--- OUTSIDE RECORDS SUMMARY | 2020-02-10 14:06 | XMS REPORT | CCD ---
Author Author Riana Escalante Organization [facility] Address [address] [place] [address] Phone Unavailable Care Team Providers Care Client Service Executive Name Role Phone PP Unavailable CCM Unavailable Summary Purpose Interface Exchange Insurance Providers Payer name Policy type / Coverage type Covered alliance party ID Effective Begin Date Effective End Date WPS MEDICARE PART B [place] Medicare Part B [id number] 2017 Unknown Cigna Medicare Part B [id number] 2017 Unknown Family History Family History data not found Social History Social History Element Codes Description Effective Dates Tobacco history SNOMED CT: 683879692 Never smoker 01/30/[address]: 710131194 Never drinks alcohol 2017 Allergies, Adverse Reactions, [...] hypertension ICD-9: 401.9 ICD-10: I10 01/30/2018 Active retirement (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 ICD-9: V58.6 1 [...] Fill Instructions warfarin 5 mg tablet RxNorm: 326840 1 Tablet(s) Oral MW F and 1/2 tablet (2.5mg) Salma Miranda Sat, Brianne 09/30/2019 12/29/2019 Active potassium chloride ER 10 mEq capsule,extended release RxNorm : 286259 1 Capsule(s) Oral two times a day on and 1 capsule Gw-Vm-Tfn-Cobalt 09/26/2019 09/26/2019 Inactive Colace 100 mg capsule RxNorm: 5660944 1 Capsule(s) Oral QD 08/26/19 20 11/24/2019 Active vancomycin 125 mg capsule RxNorm: 190167 2 Capsule(s) Oral Q8H 08/0909/05/2019 Inactive warfarin 5 mg tablet RxNorm: 879232 1 Tablet(s) Oral MW F and 1/2 tablet (2.5mg) Salma Miranda Sat & Brianne 08/26/2019 09/29/2019 Inactive levothyroxine 25 mcg tablet RxNorm: 324314 1 Tablet(s) PO QD 201910/11/2019 Active spironolactone 25 mg tablet RxNorm: 949311 TAKE 1 TABLET BY DOUGLAS TH TWICE DAILY 06/22/2019 09/19/2019 Inactive losartan 25 mg tablet RxNorm: 564666 TAKE 1 TABLET BY M OUTH ONCE DAILY IN THE MORNING 05/26/2019 No Stop Date Active bumetanide 1 mg tablet RxNorm: 301946 TAKE 1 TABLET BY MOUTH TWICE DAILY AT 6AM AND 6PM 05/23/2019 No Stop Date Active vancomycin 125 mg capsule RxNorm: 796249 1 Capsule(s) Oral Q3D 04/1008/25/2019 Inactive pantoprazole 40 mg tablet,delayed release RxNorm: 192033 1-2 Ta blet(s) Oral QD 04/23/2019 05/23/2019 Inactive potassium chloride ER 10 mEq capsule,extended release RxNorm : 324077 1 Capsule(s) Oral QD 04/23/2019 09/25/2019 Inactive warfarin 5 mg tablet RxNorm: 696030 Tablet(s) Oral Take 1 tablet (5mg) by mouth on and Sun then 1/2 tablet (2.5mg) on Sun, Sun, Thurs, Sat and Sun 04/23/2019 08/25/2019 Inactive temazepam 15 mg capsule RxNorm: 472249 TAKE 1 TO 2 CAPS ULES BY MOUTH AT BEDTIME NEEDED FOR SLEEP 04/08/2019 09/25/2019 Inactive Cipro 250 mg tablet RxNorm: 876891 1 Tablet(s) Oral two times a day 03/27/2019 04/03/2019 Inactive metronidazole 500 mg tablet RxNorm: 322850 1 Tablet(s) Oral thr ee times a day 03/27/2019 04/03/2019 Inactive bumetanide 1 mg tablet RxNorm: 438017 1 Tablet(s) PO BID (6am a nd 6pm) 02/13/2019 05/13/2019 Inactive levothyroxine 25 mcg tablet RxNorm: 577617 1 Tablet(s) PO QD 201807/13/2019 Inactive warfarin 5 mg tablet RxNorm: 050417 1 TABLET(S) PO TUES , WED, THURS, SAT AND SUN AND 1/2 TABLET ON 02/04/2019 02/11/2019 Inactive Kendra ent requests 90 days supply warfarin 5 mg tablet RxNorm: 173748 1 TABLET(S) PO TUES , WED, THURS, SAT AND SUN AND 1/2 TABLET ON 02/03/2019 02/03/2019 Inactive Kendra ent requests 90 days supply levothyroxine 25 mcg tablet RxNorm: 198083 1 Tablet(s) PO QD 201802/03/2019 Inactive warfarin 5 mg tablet RxNorm: 591178 1 Tablet(s) PO Tues , Wed, Thurs, Sat and Sun and 1/2 tablet on Mon/Fri 01/31/2019 02/02/2019 Inactive temazepam 15 mg capsule RxNorm: 443572 TAKE 1 TO 2 CAPS ULES BY MOUTH AT BEDTIME NEEDED FOR SLEEP 01/31/2019 04/07/2019 Inactive cyclobenzaprine 10 mg tablet RxNorm: 148641 1 Tablet(s) PO Q8H as needed 12/30/2018 09/25/2019 Inactive losartan 25 mg tablet RxNorm: 331393 1 Tablet(s) PO QAM 12/27/2018 Inactive Lidoderm 5 % topical patch RxNorm: 4432475 1 Application TOP Q12H and then off for 12 hours 12/25/2018 01/23/2019 Inactive Lidoderm 5 % topical patch RxNorm: 5346833 1 Application TOP Q12H and then off for 12 hours 12/25/2018 12/24/2018 Inactive cyclobenzaprine 5 mg tablet RxNorm: 481600 1 Tablet(s) PO Q8H a s needed 12/12/2018 12/24/2018 Inactive spironolactone 25 mg tablet RxNorm: 977860 1 Tablet(s) PO BID 09/2006/16/2019 Inactive change in directions to BID pantoprazole 40 mg tablet,delayed release RxNorm: 265279 1 Tabl et(s) PO QD 09/20/2018 04/22/2019 Inactive Patient requests 9 0 days supply spironolactone 25 mg tablet RxNorm: 797127 1 Tablet(s) PO BID 08/2609/19/2018 Inactive change in directions to BID pantoprazole 40 mg tablet,delayed release RxNorm: 193357 1 Tabl et(s) PO QD 08/15/2018 09/19/2018 Inactive Patient requests 9 0 days supply carvedilol 6.25 mg tablet RxNorm: 104081 1 Tablet(s) PO BID 019 02/08/2019 Inactive pantoprazole 40 mg tablet,delayed release RxNorm: 070727 1 Tablet(s) PO QD 1 TABLET(S) PO BID 08/13/2018 08/15/2018 Inactive Patient reque sts 90 days supply bumetanide 1 mg tablet RxNorm: 186754 1 Tablet(s) PO BID (6am a nd 6pm) 08/13/2018 02/08/2019 Inactive bumetanide 0.5 mg tablet RxNorm: 266132 1 Tablet(s) PO QPM three days a week--Sunday, Sun, Sunday instead of 1mg dose in evening 08/13/201812/2018 Inactive levothyroxine 25 mcg tablet RxNorm: 694590 1 Tablet(s) PO QD 201801/30/2019 Inactive spironolactone 25 mg tablet RxNorm: 322890 1 Tablet(s) PO QD 201808/25/2018 Inactive losartan 25 mg tablet RxNorm: 402599 1 Tablet(s) PO QAM 08/13/2018 Inactive warfarin 5 mg tablet RxNorm: 888113 1 Tablet(s) PO QD 08/13/201808/09 Inactive pantoprazole 40 mg tablet,delayed release RxNorm: 832094 1 TABL ET(S) PO BID 08/02/2018 08/12/2018 Inactive Patient requests 9 0 days supply temazepam 15 mg capsule RxNorm: 135013 1-2 Capsule(s) P O QHS as needed for sleep 2018 01/31/2019 Inactive Restoril 15 mg capsule RxNorm: 042077 1-2 Capsule(s) PO QHS as needed for sleep 06/04/2018 08/12/2018 Inactive potassium chloride ER 10 mEq capsule,extended release RxNorm : 917849 2 CAPSULE(S) PO QD 05/07/2018 08/04/2018 Inactive Patient reque sts 90 days supply temazepam 22.5 mg capsule RxNorm: 016615 1 Capsule(s) P O QHS as needed for sleep 05/06/2018 08/12/2018 Inactive potassium chloride ER 10 mEq capsule,extended release RxNorm : 217298 2 Capsule(s) PO QD 05/06/2018 05/06/2018 Inactive ropinirole 1 mg tablet RxNorm: 447070 1 TABLET(S) PO QHS FOR RE STLESS LEGS 03/27/2018 04/25/2018 Inactive Patient requests 9 0 days supply ropinirole 1 mg tablet RxNorm: 172286 1 Tablet(s) PO QHS for re stless legs 03/26/2018 03/26/2018 Inactive cefdinir 300 mg capsule RxNorm: 725775 1 Capsule(s) PO BID 03/26/20 18 03/30/2018 Inactive temazepam 15 mg capsule RxNorm: 289451 1 Capsule(s) PO QHS as neede d 03/20/2018 03/25/2018 Inactive Lunesta 3 mg tablet RxNorm: 332119 1 Tablet(s) PO QHS as needed for sleep 03/04/2018 03/19/2018 Inactive amitriptyline 10 mg tablet RxNorm: 564412 1 Tablet(s) PO QHS fo r sleep 02/26/2018 03/03/2018 Inactive escitalopram 20 mg tablet RxNorm: 406852 1 Tablet(s) PO QHS 018 08/12/2018 Inactive pantoprazole 40 mg tablet,delayed release RxNorm: 001578 1 Tabl et(s) PO BID 02/26/2018 04/26/2018 Inactive Coumadin 2.5 mg tablet RxNorm: 450038 1 Tablet(s) PO MWF 02/18/2018 0 07/22/2018 Inactive amiodarone 200 mg tablet RxNorm: 023165 1 Tablet(s) PO QD No Start Da te Active colestipol 1 gram tablet RxNorm: 6974645 1 Tablet(s) PO BID No Start Date Active pantoprazole 40 mg tablet,delayed release RxNorm: 521334 1 Tabl et(s) PO QD No Start Date Active pantoprazole 40 mg tablet,delayed release RxNorm: 364487 1 Tabl et(s) PO QD No Start Date 02/25/2018 Inactive bumetanide 1 mg tablet RxNorm: 720295 1 Tablet(s) PO BID (6am a nd 6pm) No Start Date 08/12/2018 Inactive potassium chloride ER 10 mEq tablet,extended release RxNorm: 422069 1 Tablet(s) PO QD No Start Date 02/11/2019 Inactive levothyroxine 25 mcg tablet RxNorm: 633540 1 Tablet(s) PO QD No Sta rt Date 08/12/2018 Inactive spironolactone 25 mg tablet RxNorm: 791005 1 Tablet(s) PO QD No Sta rt Date 08/12/2018 Inactive warfarin 5 mg tablet RxNorm: 332784 1 Tablet(s) PO MWF No Start Date 08/12/2018 Inactive warfarin 5 mg tablet RxNorm: 246060 1 Tablet(s) PO , Sun, , Sat and Sun then 1/2 tablet (2.5mg) on Mon & Fri No Start Date 08/12/2018 Inactive losartan 25 mg tablet RxNorm: 155430 1 Tablet(s) PO QAM No Start Da te 08/12/2018 Inactive carvedilol 6.25 mg tablet RxNorm: 120722 1 Tablet(s) PO BID No Star t Date 08/12/2018 Inactive warfarin 2.5 mg tablet RxNorm: 463541 1 Tablet(s) PO , s, Sat and Sun No Start Date 08/12/2018 Inactive Coumadin 2.5 mg tablet RxNorm: 375539 Tablet(s) Sun and Sun PO No Start Date 02/17/2018 Inactive Children's Multivitamin with Iron tablet RxNorm: 1 Table t(s) PO QD No Start Date 04/22/2019 Inactive potassium chloride ER 20 mEq tablet,extended release(p art/cryst) RxNorm: 7216382 2 Tablet(s) PO QD No Start Date 05/05/2018 Inactive Coumadin 5 mg tablet RxNorm: 960402 Tablet(s) PO No Start Date 2017 Inactive mexiletine 200 mg capsule RxNorm: 6983712 1 Capsule(s) PO BID No St art Date 03/25/2018 Inactive ferrous sulfate 325 mg (65 mg iron) tablet RxNorm: 667228 1 Tab let(s) PO QD No Start Date 07/22/2018 Inactive cyclobenzaprine 10 mg tablet RxNorm: 174233 1 Tablet(s) PO Q8H as needed No Start Date 12/29/2018 Inactive potassium chloride ER 10 mEq capsule,extended release RxNorm : 786763 2 Capsule(s) PO QD No Start Date 12/11/2018 Inactive Coumadin 5 mg tablet RxNorm: 428166 1 Tablet(s) PO , Th, Sat and Sun No Start Date 07/22/2018 Inactive Restoril 15 mg capsule RxNorm: 890311 1-2 Capsule(s) PO QHS as needed for sleep No Start Date 05/05/2018 Inactive metoprolol succinate ER 25 mg tablet,extended release 24 hr RxNorm: 760557 1 Tablet(s) PO QD No Start Date 08/12/2018 Inactive Entresto 24 mg-26 mg tablet RxNorm: 4617364 1 Tablet(s) PO BID No S tart Date 08/12/2018 Inactive warfarin 5 mg tablet RxNorm: 041705 1 Tablet(s) PO , Sun, , Sat and Sun and 1/2 tablet on Sun/Sun No Start Date 01/30/2019 Inactive amiodarone 200 mg tablet RxNorm: 764971 2 Tablet(s) PO BID No Start Date 10/09/2018 Inactive furosemide 20 mg tablet RxNorm: 613906 1 Tablet(s) PO QD No Start D ate 08/12/2018 Inactive amiodarone 200 mg tablet RxNorm: 111639 1 Tablet(s) PO BID No Start Date 08/26/2018 Inactive atorvastatin 40 mg tablet RxNorm: 549013 1 Tablet(s) PO QD No Start Date 08/12/2018 Inactive warfarin 5 mg tablet RxNorm: 382190 1/2 Tablet(s) PO on Sun, Sun, Sun, Sun then 1 tablet on Sun, , Sat No Start Date 04/22/2019 Inactive Medication Administered No Medication Administered data Immunizations Vaccine Codes Date Status Pneumovax CVX: 33 05/14/2019 Hepatitis A CVX: 83 03/25/2019 Influenza CVX: 135 03/25/2019 Results Observation Observation Code Item Item Code Result Date S vice Location UA W/MICR 13768 UA Urine Appear Normal 02/06/2018 Unk nown UA W/MICR 73007 UA Protein 3+ 02/06/2018 Unknown UA W/MICR 86339 UA Hemoglobin Trace 02/06/2018 Unkno wn UA W/MICR 17351 UA Glucose Negative 02/06/2018 Unknown UA W/MICR 41906 UA Ketones Negative 02/06/2018 Unknown UA W/MICR 22271 UA pH 5.5 02/06/2018 Unknown UA W/MICR 91387 U Spec [place] 1.025 02/06/2018 Unkn own UA W/MICR 11302 UA Bilirubin Negative 02/06/2018 Unknow n UA W/MICR 81467 UA Leuk Esteras Trace 02/06/2018 Unk nown UA W/MICR 55269 UA Nitrite NEG 02/06/2018 Unknown UA W/MICR 91590 UA WBC/hpf 11-25 02/06/2018 Unknown UA W/MICR 22594 UA RBC hpf 0-5 02/06/2018 Unknown UA W/MICR 16810 UA Hyaline Cast 16-25 02/06/2018 Unk nown UA W/MICR 96933 UA Squam Epi Few 02/06/2018 Unknow n Procedures Procedure Codes Date INITIAL PREVENTIVE EXAM CPT-4: G0402 09/25/2019 URINALYSIS NONAUTO W/O SCOPE CPT-4: 31204 03/18/2019 URINE CULTURE/ COLONY COUNT CPT-4: 06513 03/18/2019 URINALYSIS NONAUTO W/O SCOPE CPT-4: 70190 12/12/2018 URINE CULTURE/ COLONY COUNT CPT-4: 22784 03/26/2018 URINALYSIS NONAUTO W/O SCOPE CPT-4: 27161 03/15/2018 INITIAL PREVENTIVE EXAM CPT-4: G0402 02/26/2018 URINALYSIS NONAUTO W/O SCOPE CPT-4: 10713 02/06/2018 URINE CULTURE/ COLONY COUNT CPT-4: 78012 02/06/2018 UA W/MICR CPT-4: 15706 02/06/2018 CUR TOBACCO NON-USER CPT-4: G8457 01/30/2018 REPAIR BLADDER & VAGINA CPT-4: 07465 01/06/2017 REPAIR OF RECTOCELE CPT-4: 26137 01/06/2017 BREAST SURGERY PROCEDURE CPT-4: 73190 Unknown LAPARO CHOLECYSTECTOMY/EXPLR CPT-4: 71104 Unknown HYSTERECTOMY/REVISE VAGINA CPT-4: 08085 Unknown Vital Signs Date Vital 09/25/2019 Blood [...] 1: 106/58 Code: 8480-6 BMI: 26.3 Code: 45557-5 Heart Rate 1: 72 bpm Height: 4'10" Respiratory Rate: 20 bpm SpO2: 97% Tempera ture: 36.6 (C) / 97.8 (F) Weight: 128 lbs 07/10/2018 Blood Pressure 1: 122/70 Code: 8480-6 BMI: 28.6 Code: 92494-5 Heart Rate 1: 80 bpm Height: 4'10" Respiratory Rate: 20 bpm SpO2: 96% Tempera ture: 36.9 (C) / 98.4 (F) Weight: 139 lbs 05/06/2018 Blood Pressure 1: 112/54 Code: 8480-6 BMI: 27.5 Code: 70696-1 Heart Rate 1: 80 bpm Height: 4'10" [...] 1: 146/80 Code: 8480-6 BMI: 30.0 Code: 23855-1 Heart Rate 1: 76 bpm Height: 4'10" Respiratory Rate: 20 bpm SpO2: 97% Tempera ture: 36.7 (C) / 98.1 (F) Weight: 146 lbs 02/26/2018 Blood Pressure 1: 126/80 Code: 8480-6 BMI: 29.6 Code: 82664-7 Heart Rate 1: 80 bpm Height: 4'10" Respiratory Rate: 18 bpm SpO2: 96% Tempera ture: 37.0 (C) / 98.6 (F) Weight: 144 lbs 01/30/2018 Blood Pressure 1: 120/78 Code: 8480-6 BMI: 29.6 Code: 06141-0 Heart Rate 1: 84 bpm Height: 4'10" Respiratory Rate: 20 bpm SpO2: 97% Tempera ture: 36.0 (C) / 96.8 (F) Weight: 144 lbs Functional Status No Functional Status data Reason For Visit Reason For Visit Effective Dates Notes Annual Checkup 09/25/2019 pt labs are scanned into chart abdominal pain 08/26/2019 follow up 05/07/2019 follow up 04/23/2019 [facility] abdominal pain 03/27/2019 left lower [...] fwup follow up 05/06/2018 [facility] abdominal pain 04/17/2018 follow up 03/26/2018 dizziness 03/15/2018 Patient had bladder biopsy on Sunday by Dr Noonan. states she has been holding her coumadin since Sunday insomnia 02/26/2018 blood in urine 02/06/2018 ~generic 01/30/2018 Establishing Care Encounters Encounter Performer Location Codes Date () OFFICE/OUTPATIENT VISIT EST Diagnosis: Sigmoid diverticulitis[ICD10: K57.32] Jalyn DAILY [facility] CPT-4: 24901 08/26/2019 ([id number]) OFFICE/OUTPATIENT VISIT EST Diagnosis: Clostridium difficile colitis[ICD10: A04.72] Jalyn DAILY [facility] CPT-4: 92292 05/07/2019 ([id number]) OFFICE/OUTPATIENT VISIT EST Diagnosis: Clostridium difficile colitis[ICD10: A04.72] Diagnosis: Edema[ICD10: R60.9] Jalyn DAILY DO [facility] CPT-4: 33239 04/23/2019 ([id number]) OFFICE/OUTPATIENT VISIT EST Diagnosis: Constipation[ICD10: K59.00] Diagnosis: Left lower quadrant pain[ICD10: R10.32] Bhavna DAILY [facility] CPT-4: 62328 03/27/2019 ([id number]) OFFICE/OUTPATIENT VISIT EST Diagnosis: Acute kidney failure, unspecified[ICD10: N17.9] Jalyn DAILY DO [facility] CPT-4: 13791 03/18/2019 ([id number]) OFFICE/OUTPATIENT VISIT EST Diagnosis: Essential (primary) hypertension[ICD10: I10] Diagnosis: Chronic atrial fibrillation[ICD10: I48.2] Diagnosis: Mixed hyperlipidemia[ICD10: E78.2] Diagnosis: Other fatigue[ICD10: R53.83] Diagnosis: Abdominal distension (gaseous)[ICD10: R14.0] Jalyn DAILY DO [facility] CPT-4: 26157 02/12/2019 ([id number]) OFFICE/OUTPATIENT VISIT EST Diagnosis: Low back pain[ICD10: M54.5] Bhavna DOUGHERTY S. O RENDER [facility] CPT-4: 75858 12/25/2018 ([id number]) OFFICE/OUTPATIENT VISIT EST Diagnosis: Low back pain[ICD10: M54.5] Bhavna DOUGHERTY S. O RENDER [facility] CPT-4: 21181 12/12/2018 ([id number]) OFFICE/OUTPATIENT VISIT EST Diagnosis: Anemia, unspecified[ICD10: D64.9] Diagnosis: Chronic atrial fibrillation[ICD10: I48.2] Diagnosis: Other fatigue[ICD10: R53.83] Jalyn DAILY [facility] CPT-4: 72555 10/10/2018 ([id number]) OFFICE/OUTPATIENT VISIT EST Diagnosis: Acute on chronic combined systolic (congestive) and diastolic (congestive) heart failure[ICD10: I50.43] Diagnosis: Chronic atrial fibrillation[ICD10: I48.2] Jalyn DAILY [facility] CPT-4: 21716 08/27/2018 ([id number]) OFFICE/OUTPATIENT VISIT EST Diagnosis: Chronic atrial fibrillation[ICD10: I48.2] 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] Diagnosis: retirement (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[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] Jalyn DAILY DO [facility] CPT-4: 88236 08/13/2018 ([id number]) OFFICE/OUTPATIENT VISIT EST Diagnosis: Acute on chronic combined systolic (congestive) and diastolic (congestive) heart failure[ICD10: I50.43] Diagnosis: Essential (primary) hypertension[ICD10: I10] Diagnosis: Anemia, unspecified[ICD10: D64.9] Jalyn DAILY DO [facility] CPT-4: 19949 07/10/2018 ([id number]) OFFICE/OUTPATIENT VISIT EST Diagnosis: Chronic atrial fibrillation[ICD10: I48.2] Diagnosis: Acute on chronic combined systolic (congestive) and diastolic (congestive) heart failure[ICD10: I50.43] Diagnosis: Localized edema[ICD10: R60.0] Jalyn DAILY DO [facility] CPT-4: 66832 05/06/2018 ([id number]) OFFICE/OUTPATIENT VISIT EST Diagnosis: Generalized abdominal pain[ICD10: R10.84] Diagnosis: Pelvic and perineal pain[ICD10: R10.2] Diagnosis: Localized edema[ICD10: R60.0] Bhavna DAILY DO [facility] CPT-4: 54207 04/17/2018 ([id number]) OFFICE/OUTPATIENT VISIT EST Diagnosis: Urinary tract infection, site not specified[ICD10: N39.0] Diagnosis: Other insomnia[ICD10: G47.09] Diagnosis: Other fatigue[ICD10: R53.83] Diagnosis: Other forms of dyspnea[ICD10: R06.09] Diagnosis: Chronic atrial fibrillation[ICD10: I48.2] Diagnosis: Restless legs syndrome[ICD10: G25.81] Jalyn DAILY DO [facility] CPT-4: 87962 03/26/2018 ([id number]) OFFICE/OUTPATIENT VISIT EST Diagnosis: Altered mental status, unspecified[ICD10: R41.82] 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] Diagnosis: Hematuria, unspecified[ICD10: R31.9] Bhavna DAILY DO [facility] CPT-4: 89479 03/15/2018 ([id number]) NURSE/OUTPATIENT VISIT EST Diagnosis: Urinary tract infection, site not specified[ICD10: N39.0] Jalyn DAILY [facility] CPT-4: 56938 02/06/2018 OFFICE/OUTPATIENT VISIT NEW Diagnosis: retirement (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[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] Diagnosis: Essential (primary) hypertension[ICD10: I10] Diagnosis: Mixed hyperlipidemia[ICD10: E78.2] Diagnosis: Other fatigue[ICD10: R53.83] Diagnosis: Cardiac arrhythmia, unspecified[ICD10: I49.9] Diagnosis: Generalized abdominal pain[ICD10: R10.84] Diagnosis: Urinary tract infection, site not specified[ICD10: N39.0] Diagnosis: Other insomnia[ICD10: G47.09] Bhavna Leigh NESSAAUGIEANIBAL [facility] CPT-4: 62955 01/30/2018 Plan of Care Planned Activity Notes Codes Status Date Visit Diagnosis Plan: Acute on chronic c ombined systolic (congestive) and diastolic (congestive) heart failure Discussion: Just did 3 days of increased lasix dose per cardiology recommendations and feeling better Low Na diet and weigh daily ICD-9 : 428.43 ICD-10 : I50.43 09/25/2019 Visit Diagnosis Plan: Essential (primary) hypertension Discussion: Stable ICD-9 : 401.9 ICD-10 : I10 09/25/2019 Visit Diagnosis Plan: Encounter for [facility] adult medical examination with abnormal findings Discussion: Mediterranean diet Combinati on of cardio and weight bearing exercise Obtain most recent lab COVID-19 precautions discussed Discussed telemedicine visits if needed during pandemic Follow Up: 3 months ICD-9 : V70.0 ICD-10 : Z00.01 09/25/2019 [facility] [phone] [facility] [facility] Visit 09/25/2019 Care Plan: COMPREH[place] METAB[place] : 37039-8 Pending 09/22/2019 Care Plan: COMPLETE CBC W/AUTO DIFF WBC LOINC : 15310-6 Pending 09/22/2019 Appointment: Bhavna Escalante [address] [facility] [place] pt. feeling better and still had [...] : K57.32 08/26/2019 Appointment: Jalyn Daily WPtel: [address] [place], [place] [phone] ACUTE ILLNESS 08/26/2019 Appointment: Jalyn Daily WPtel: [address] [place] [address] originally 4 mo follow up CANCELED 2018 Visit Diagnosis Plan: Clostridium difficile colitis Di scussion: Vancomycin daily for another week then 125mg every 3 days for 1 month then stop Fwup in September ICD-9 : 008.45 ICD-10 : A04.72 05/07/2019 Appointment: Jalyn Daily WPtel: [address] [place], [place] [phone] FOLLOW UP 05/07/2019 Visit Diagnosis Plan: Clostridium [...] 782.3 ICD-10 : R60.9 04/23/2019 Appointment: Jalyn Dailytel: [address] [place] [address] Hospital Follow Up 04/23/2019 Appointment: Bhavna Escalante [address] [facility] [place] CANCELED 04/15/2019 Visit Diagnosis Plan: Left lower quadrant pain Discuss ion: will start with abdominal xray to rule out acute obstruction/constipation. if no acute findings, will treat as diverticulitis due to patient's past history. ICD-9 : 789.04 ICD-10 : R10.32 03/27/2019 Appointment: Bhavna Escalante [address] [place], [place] [phone] ACUTE ILLNESS 03/27/2019 Visit Diagnosis Plan: Acute kidney failure, unspecifie d Discussion: Was given Meloxicam at urgent care--discussed no NSAIDs, hydrate, repeat Chem 7 in 1 week ICD-9 : 584.9 ICD-10 : N17.9 03/18/2019 Appointment: Jalyn Daily WPtel: [facility] [place] [phone] ACUTE ILLNESS 03/18/2019 Visit Diagnosis Plan: Chronic atrial fibrillation Disc ussion: Following routinely with Cardiology ICD-9 : 427.31 ICD-10 : I48.2 02/12/2019 Visit Diagnosis Plan: Abdominal distension (gaseous) D iscussion: Trial of Zenpep q AC ICD-9 : 787.3 ICD-10 : R14.0 02/12/2019 Visit Diagnosis Plan: Essential (primary) hypertension Discussion: Stable ICD-9 : 401.9 ICD-10 : I10 02/12/2019 Appointment: Jalyn Daily WPtel: [address] [place] [address] FOLLOW UP 02/12/2019 Appointment: Bhavna Escalante [address] [place] [address] [place] Canceled per guillermina. sending for mri [...] ICD-10 : M54.5 12/25/2018 Appointment: Bhavna Escalante [address] [place], [place] [phone] ACUTE ILLNESS 12/25/2018 Visit Diagnosis Plan: Low [...] ICD-10 : M54.5 12/12/2018 Appointment: Bhavna Escalante [address] [place] [address] ACUTE ILLNESS 12/12/2018 Patient Education: cyclobenzaprine- [employer] Coupon [id number] https://www.[employer]mittor/[email or web address]/resources/getResource/61/[email or web address] Completed 12/12/2018 Appointment: Bhavna Escalante [address] [place] [address] CANCELED 12/06/2018 Visit Diagnosis Plan: Other fatigue Discussion: Increa se activity--discussed 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 ICD-9 : 780.79 ICD-10 : R53.83 10/10/2018 Visit Diagnosis Plan: Anemia, unspecified Discussion: Update CBC ICD-9 : 285.9 ICD-10 : D64.9 10/10/2018 Visit Diagnosis Plan: Chronic atrial fibrillation Disc ussion: Cardiology monitoring PT/INR Follow Up: 4 months ICD-9 : 427.31 ICD-10 : I48.2 10/10/2018 Appointment: Jalyn Daily WPtel: [address] [place] [address] [place] FOLLOW UP 10/10/2018 Visit Diagnosis Plan: [...] : 427.31 ICD-10 : I48.2 08/27/2018 Appointment: Jayln Daily WPtel: [facility] [place] [phone] [place] FOLLOW UP 08/27/2018 Visit Diagnosis Plan: [...] ICD-10 : I48.2 08/13/2018 Visit Diagnosis 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: 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 Discussion: Increase Coumadin to 5mg po daily and repeat PT/INR in 2 weeks ICD-9 : V58.61 ICD-10 : Z79.01 08/13/2018 App[facility]ment: [facility] [phone] [facility] [facility] 08/13/2018 Patient Education: bumetanide- [employer] Coupon [phone] https://www.[employer]mittor/[employer]/resources/getResource/61/[email or web address]-hw Completed 08/13/2018 Patient Education: levothyroxine- [employer] Coupon [id number] https://www.[employer]mittor/[employer]/resources/getResource/61/2126963q-4323-9t95-ib Completed 08/13/2018 Patient Education: warfarin- [employer] Coupon [id number] https://www.[employer]mittor/[employer]/resources/getResource/61/[email or web address]-[email or web address] Completed 08/13/2018 Patient Education: pantoprazole- [employer] Coupon [phone] https://www.[employer]mittor/Steven [employer]/resources/getResource/[email or web address] Completed 08/13/2018 Patient Education: spironolactone- [employer] Coupon 5 [id number] [email or web address]/samplemd/resources/[email or web address] Completed 08/13/2018 Visit Diagnosis Plan: Anemia, unspecified [...] : I50.43 07/10/2018 Appointment: Jalyn Daily WPtel: [address] [place], [place] [phone] [address] FOLLOW UP 07/10/2018 Visit Diagnosis Plan: Acute on chronic c ombined systolic (congestive) and diastolic (congestive) heart failure Discussion: Much improved on entresto an d lasix See cardilogy tomorrow in [facility] Discussed restarting cardiac rehab in 3 weeks Check Chem 7 Follow Up: 2 months ICD-9 : 428.43 ICD-10 : I50.43 05/06/2018 Visit Diagnosis Plan: Chronic atrial fibrillation Disc ussion: S/P new pacemaker/defibrillator ICD-9 : 427.31 ICD-10 : I48.2 05/06/2018 Appointment: Jalyn Daily [facility]Ptel[id number] [facility] 05/06/2018 Visit Diagnosis Plan: Generalized [...] ICD-10 : R60.0 04/17/2018 Appointment: Bhavna Escalante [address] [place], [place] [id number] ACUTE ILLNESS 04/17/2018 Patient Education: Patient Medication Summary Completed 04/17/2018 Care Plan: CT ABDOMEN W/O & W/DYE LOINC : 82891-7 Pending 04/17/2018 Care Plan: CT PELVIS W/O & W/DYE LOINC : 03134-9 Pending 04/17/2018 Appointment: Jalyn Daily WPtel: [address] [place], [place] [id number] [place] CANCELED 04/10/2018 Visit Diagnosis Plan: Other [...] : R53.83 03/26/2018 Appointment: Jalyn Daily WPtel: [address] [place], [place] [phone] ER Follow UP 03/26/2018 Patient Education: Patient [...] ICD-10 : R31.9 03/15/2018 Appointment: Bhavna Escalante [address] [place] [address] ACUTE ILLNESS 03/15/2018 Patient Education: Patient Medication Summary Completed 03/15/2018 Visit Diagnosis Plan: Primary insomnia Discussion: Tri al of elavil 10mg po q HS ICD-9 : 780.52 ICD-10 : F51.01 02/26/2018 Visit Diagnosis Plan: Functional dyspepsia Discussion: Increase protonix to 40mg po BID Follow Up: 1 months ICD-9 : 536.8 ICD-10 : K30 02/26/2018 Appointment: Jalyn Dailytel: [address] [place] [address] WELCOME TO MEDICARE 02/26/2018 Patient Education: Patient Medication Summary Completed 02/26/2018 Referral: Song Noonan WPtel: [address] [place] [address] [place] Referral Initiated 02/19/2018 Appointment: Jalyn Dailytel: [address] [place] [address] US LAB 02/06/2018 Patient Education: Patient Medication Summary Completed 02/06/2018 Appointment: Jalyn Daily WPtel: [address] [place], [place] [id number] [place] CANCELED 02/01/2018 Care Plan: US EXAM ABDOM COMPLETE liver LOINC : 29020-3 Pending 01/31/2018 Visit Diagnosis Plan: Essential (primary) [...] ICD-10 : R53.83 01/30/2018 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
--- OUTSIDE RECORDS SUMMARY | 2020-02-10 14:07 | XMS REPORT | CCD ---
Author Author Riana Escalante Organization [facility] Address [address] [place] [address] Phone Unavailable Care Team Providers Care Pasteurizer Name Role Phone PP Unavailable CCM Unavailable Summary Purpose Interface Exchange Insurance Providers Payer name Policy type / Coverage type Covered democrat ID Effective Begin Date Effective End Date WPS MEDICARE PART B [place] Medicare Part B [id number] 2017 Unknown Cigna Medicare Part B [id number] 2017 Unknown Family History Family History data not found Social History Social History Element Codes Description Effective Dates Tobacco history SNOMED CT: 358781758 Never smoker 01/30/[address]: 999652698 Never drinks alcohol 2017 Allergies, Adverse Reactions, [...] ER 10 mEq capsule,extended release RxNorm : 544509 1 Capsule(s) Oral two times a day on and 1 capsule 09/26/2019 09/26/2019 Inactive warfarin 5 mg tablet RxNorm: 183940 1 Tablet(s) Oral and 1/2 tablet (2.5mg) , , Sun & Sun08/26/2019 No Stop Date Active Colace 100 mg capsule RxNorm: 2005794 1 Capsule(s) Oral QD 08/26/1911/24/2019 Active vancomycin 125 mg capsule RxNorm: 428110 2 Capsule(s) Oral Q8H 08/0909/05/2019 Inactive levothyroxine 25 mcg tablet RxNorm: 991981 1 Tablet(s) PO QD 201910/11/2019 Active spironolactone 25 mg tablet RxNorm: 256906 TAKE 1 TABLET BY DOUGLAS TH TWICE DAILY 06/22/2019 09/19/2019 Inactive losartan 25 mg tablet RxNorm: 977246 TAKE 1 TABLET BY M OUTH ONCE DAILY IN THE MORNING 05/26/2019 No Stop Date Active bumetanide 1 mg tablet RxNorm: 049729 TAKE 1 TABLET BY MOUTH TWICE DAILY AT 6AM AND 6PM 05/23/2019 No Stop Date Active vancomycin 125 mg capsule RxNorm: 192967 1 Capsule(s) Oral Q3D 04/1008/25/2019 Inactive pantoprazole 40 mg tablet,delayed release RxNorm: 744799 1-2 Ta blet(s) Oral QD 04/23/2019 05/23/2019 Inactive potassium chloride ER 10 mEq capsule,extended release RxNorm : 194733 1 Capsule(s) Oral QD 04/23/2019 09/25/2019 Inactive warfarin 5 mg tablet RxNorm: 267009 Tablet(s) Oral Take 1 tablet (5mg) by mouth on and Sun then 1/2 tablet (2.5mg) on Sun, Sun, Thurs, Sat and Sun 04/23/2019 08/25/2019 Inactive temazepam 15 mg capsule RxNorm: 992448 TAKE 1 TO 2 CAPS ULES BY MOUTH AT BEDTIME NEEDED FOR SLEEP 04/08/2019 09/25/2019 Inactive Cipro 250 mg tablet RxNorm: 017518 1 Tablet(s) Oral two times a day 03/27/2019 04/03/2019 Inactive metronidazole 500 mg tablet RxNorm: 910474 1 Tablet(s) Oral thr ee times a day 03/27/2019 04/03/2019 Inactive bumetanide 1 mg tablet RxNorm: 278490 1 Tablet(s) PO BID (6am a nd 6pm) 02/13/2019 05/13/2019 Inactive levothyroxine 25 mcg tablet RxNorm: 881705 1 Tablet(s) PO QD 201807/13/2019 Inactive warfarin 5 mg tablet RxNorm: 331074 1 TABLET(S) PO TU , WED, THURS, SAT AND SUN AND 1/2 TABLET ON 02/04/2019 02/11/2019 Inactive Kendra ent requests 90 days supply warfarin 5 mg tablet RxNorm: 786312 1 TABLET(S) PO TUES , WED, THURS, SAT AND SUN AND 1/2 TABLET ON 02/03/2019 02/03/2019 Inactive Kendra ent requests 90 days supply levothyroxine 25 mcg tablet RxNorm: 382406 1 Tablet(s) PO QD 201802/03/2019 Inactive warfarin 5 mg tablet RxNorm: 514847 1 Tablet(s) PO Tues , Wed, Thurs, Sat and Sun and 1/2 tablet on 01/31/2019 02/02/2019 Inactive temazepam 15 mg capsule RxNorm: 140147 TAKE 1 TO 2 CAPS ULES BY MOUTH AT BEDTIME NEEDED FOR SLEEP 01/31/2019 04/07/2019 Inactive cyclobenzaprine 10 mg tablet RxNorm: 338191 1 Tablet(s) PO Q8H as needed 12/30/2018 09/25/2019 Inactive losartan 25 mg tablet RxNorm: 439515 1 Tablet(s) PO QAM 12/27/2018 Inactive Lidoderm 5 % topical patch RxNorm: 2063845 1 Application TOP Q12H and then off for 12 hours 12/25/2018 01/23/2019 Inactive Lidoderm 5 % topical patch RxNorm: 3615331 1 Application TOP Q12H and then off for 12 hours 12/25/2018 12/24/2018 Inactive cyclobenzaprine 5 mg tablet RxNorm: 618708 1 Tablet(s) PO Q8H a s needed 12/12/2018 12/24/2018 Inactive spironolactone 25 mg tablet RxNorm: 610970 1 Tablet(s) PO BID 09/2006/16/2019 Inactive change in directions to BID pantoprazole 40 mg tablet,delayed release RxNorm: 197744 1 Tabl et(s) PO QD 09/20/2018 04/22/2019 Inactive Patient requests 9 0 days supply spironolactone 25 mg tablet RxNorm: 803654 1 Tablet(s) PO BID 08/2609/19/2018 Inactive change in directions to BID pantoprazole 40 mg tablet,delayed release RxNorm: 044552 1 Tabl et(s) PO QD 08/15/2018 09/19/2018 Inactive Patient requests 9 0 days supply carvedilol 6.25 mg tablet RxNorm: 574749 1 Tablet(s) PO BID 019 02/08/2019 Inactive pantoprazole 40 mg tablet,delayed release RxNorm: 550976 1 Tablet(s) PO QD 1 TABLET(S) PO BID 08/13/2018 08/15/2018 Inactive Patient reque sts 90 days supply bumetanide 1 mg tablet RxNorm: 131649 1 Tablet(s) PO BID (6am a nd 6pm) 08/13/2018 02/08/2019 Inactive bumetanide 0.5 mg tablet RxNorm: 622788 1 Tablet(s) PO QPM three days a week--Sunday, Sun, Sunday instead of 1mg dose in evening 08/13/201812/2018 Inactive levothyroxine 25 mcg tablet RxNorm: 038061 1 Tablet(s) PO QD 201801/30/2019 Inactive spironolactone 25 mg tablet RxNorm: 027245 1 Tablet(s) PO QD 201808/25/2018 Inactive losartan 25 mg tablet RxNorm: 749519 1 Tablet(s) PO QAM 08/13/2018 Inactive warfarin 5 mg tablet RxNorm: 006767 1 Tablet(s) PO QD 08/13/201808/09 Inactive pantoprazole 40 mg tablet,delayed release RxNorm: 171001 1 TABL ET(S) PO BID 08/02/2018 08/12/2018 Inactive Patient requests 9 0 days supply temazepam 15 mg capsule RxNorm: 355551 1-2 Capsule(s) P O QHS as needed for sleep 2018 01/31/2019 Inactive Restoril 15 mg capsule RxNorm: 869846 1-2 Capsule(s) PO QHS as needed for sleep 06/04/2018 08/12/2018 Inactive potassium chloride ER 10 mEq capsule,extended release RxNorm : 046427 2 CAPSULE(S) PO QD 05/07/2018 08/04/2018 Inactive Patient reque sts 90 days supply temazepam 22.5 mg capsule RxNorm: 770162 1 Capsule(s) P O QHS as needed for sleep 05/06/2018 08/12/2018 Inactive potassium chloride ER 10 mEq capsule,extended release RxNorm : 246238 2 Capsule(s) PO QD 05/06/2018 05/06/2018 Inactive ropinirole 1 mg tablet RxNorm: 952459 1 TABLET(S) PO QHS FOR RE STLESS LEGS 03/27/2018 04/25/2018 Inactive Patient requests 9 0 days supply ropinirole 1 mg tablet RxNorm: 189547 1 Tablet(s) PO QHS for re stless legs 03/26/2018 03/26/2018 Inactive cefdinir 300 mg capsule RxNorm: 072053 1 Capsule(s) PO BID 03/26/20 18 03/30/2018 Inactive temazepam 15 mg capsule RxNorm: 674152 1 Capsule(s) PO QHS as neede d 03/20/2018 03/25/2018 Inactive Lunesta 3 mg tablet RxNorm: 408369 1 Tablet(s) PO QHS as needed for sleep 03/04/2018 03/19/2018 Inactive amitriptyline 10 mg tablet RxNorm: 239479 1 Tablet(s) PO QHS fo r sleep 02/26/2018 03/03/2018 Inactive escitalopram 20 mg tablet RxNorm: 553065 1 Tablet(s) PO QHS 018 08/12/2018 Inactive pantoprazole 40 mg tablet,delayed release RxNorm: 685922 1 Tabl et(s) PO BID 02/26/2018 04/26/2018 Inactive Coumadin 2.5 mg tablet RxNorm: 276227 1 Tablet(s) PO MWF 02/18/2018 0 07/22/2018 Inactive amiodarone 200 mg tablet RxNorm: 290938 1 Tablet(s) PO QD No Start Da te Active colestipol 1 gram tablet RxNorm: 1896079 1 Tablet(s) PO BID No Start Date Active pantoprazole 40 mg tablet,delayed release RxNorm: 290469 1 Tabl et(s) PO QD No Start Date Active pantoprazole 40 mg tablet,delayed release RxNorm: 902669 1 Tabl et(s) PO QD No Start Date 02/25/2018 Inactive bumetanide 1 mg tablet RxNorm: 752503 1 Tablet(s) PO BID (6am a nd 6pm) No Start Date 08/12/2018 Inactive potassium chloride ER 10 mEq tablet,extended release RxNorm: 304008 1 Tablet(s) PO QD No Start Date 02/11/2019 Inactive levothyroxine 25 mcg tablet RxNorm: 623088 1 Tablet(s) PO QD No Sta rt Date 08/12/2018 Inactive spironolactone 25 mg tablet RxNorm: 476146 1 Tablet(s) PO QD No Sta rt Date 08/12/2018 Inactive warfarin 5 mg tablet RxNorm: 317183 1 Tablet(s) PO MWF No Start Date 08/12/2018 Inactive warfarin 5 mg tablet RxNorm: 412329 1 Tablet(s) PO , Sun, , Sat and Sun then 1/2 tablet (2.5mg) on Mon & Fri No Start Date 08/12/2018 Inactive losartan 25 mg tablet RxNorm: 093443 1 Tablet(s) PO QAM No Start Da te 08/12/2018 Inactive carvedilol 6.25 mg tablet RxNorm: 739744 1 Tablet(s) PO BID No Star t Date 08/12/2018 Inactive warfarin 2.5 mg tablet RxNorm: 351364 1 Tablet(s) PO , s, Sat and Sun No Start Date 08/12/2018 Inactive Coumadin 2.5 mg tablet RxNorm: 894542 Tablet(s) Sun and Sun PO No Start Date 02/17/2018 Inactive Children's Multivitamin with Iron tablet RxNorm: 1 Table t(s) PO QD No Start Date 04/22/2019 Inactive potassium chloride ER 20 mEq tablet,extended release(p art/cryst) RxNorm: 0259439 2 Tablet(s) PO QD No Start Date 05/05/2018 Inactive Coumadin 5 mg tablet RxNorm: 720005 Tablet(s) PO No Start Date 2017 Inactive mexiletine 200 mg capsule RxNorm: 5057630 1 Capsule(s) PO BID No St art Date 03/25/2018 Inactive ferrous sulfate 325 mg (65 mg iron) tablet RxNorm: 103678 1 Tab let(s) PO QD No Start Date 07/22/2018 Inactive cyclobenzaprine 10 mg tablet RxNorm: 048624 1 Tablet(s) PO Q8H as needed No Start Date 12/29/2018 Inactive potassium chloride ER 10 mEq capsule,extended release RxNorm : 627101 2 Capsule(s) PO QD No Start Date 12/11/2018 Inactive Coumadin 5 mg tablet RxNorm: 215246 1 Tablet(s) PO , , Sun and Sun No Start Date 07/22/2018 Inactive Restoril 15 mg capsule RxNorm: 337099 1-2 Capsule(s) PO QHS as needed for sleep No Start Date 05/05/2018 Inactive metoprolol succinate ER 25 mg tablet,extended release 24 hr RxNorm: 347239 1 Tablet(s) PO QD No Start Date 08/12/2018 Inactive Entresto 24 mg-26 mg tablet RxNorm: 9789820 1 Tablet(s) PO BID No S tart Date 08/12/2018 Inactive warfarin 5 mg tablet RxNorm: 023961 1 Tablet(s) PO , Sun, , Sat and Sun and 1/2 tablet on Sun/Sun No Start Date 01/30/2019 Inactive amiodarone 200 mg tablet RxNorm: 541189 2 Tablet(s) PO BID No Start Date 10/09/2018 Inactive furosemide 20 mg tablet RxNorm: 057001 1 Tablet(s) PO QD No Start D ate 08/12/2018 Inactive amiodarone 200 mg tablet RxNorm: 732790 1 Tablet(s) PO BID No Start Date 08/26/2018 Inactive atorvastatin 40 mg tablet RxNorm: 776364 1 Tablet(s) PO QD No Start Date 08/12/2018 Inactive warfarin 5 mg tablet RxNorm: 006192 1/2 Tablet(s) PO on Sun, Sun, Sun, Sun then 1 tablet on Sun, , Sat No Start Date 04/22/2019 Inactive Medication Administered No Medication Administered data Immunizations Vaccine Codes Date Status Pneumovax CVX: 33 05/14/2019 Hepatitis A CVX: 83 03/25/2019 Influenza CVX: 135 03/25/2019 Results Observation Observation Code Item Item Code Result Date S [facility] Location UA W/MICR 85021 UA Urine Appear Normal 02/06/2018 Unk nown UA W/MICR 42538 UA Protein 3+ 02/06/2018 Unknown UA W/MICR 24751 UA Hemoglobin Trace 02/06/2018 Unkno wn UA W/MICR 10537 UA Glucose Negative 02/06/2018 Unknown UA W/MICR 80126 UA Ketones Negative 02/06/2018 Unknown UA W/MICR 09956 UA pH 5.5 02/06/2018 Unknown UA W/MICR 53881 U Spec [place] 1.025 02/06/2018 Unkn own UA W/MICR 81497 UA Bilirubin Negative 02/06/2018 Unknow n UA W/MICR 63356 UA Leuk Esteras Trace 02/06/2018 Unk nown UA W/MICR 68252 UA Nitrite NEG 02/06/2018 Unknown UA W/MICR 78487 UA WBC/hpf 11-25 02/06/2018 Unknown UA W/MICR 55024 UA RBC hpf 0-5 02/06/2018 Unknown UA W/MICR 02907 UA Hyaline Cast 16-25 02/06/2018 Unk nown UA W/MICR 39016 UA Squam Epi Few 02/06/2018 Unknow n Procedures Procedure Codes Date INITIAL PREVENTIVE EXAM CPT-4: G0402 09/25/2019 URINALYSIS NONAUTO W/O SCOPE CPT-4: 59173 03/18/2019 URINE CULTURE/ COLONY COUNT CPT-4: 15910 03/18/2019 URINALYSIS NONAUTO W/O SCOPE CPT-4: 43133 12/12/2018 URINE CULTURE/ COLONY COUNT CPT-4: 09262 03/26/2018 URINALYSIS NONAUTO W/O SCOPE CPT-4: 33224 03/15/2018 INITIAL PREVENTIVE EXAM CPT-4: G0402 02/26/2018 URINALYSIS NONAUTO W/O SCOPE CPT-4: 88999 02/06/2018 URINE CULTURE/ COLONY COUNT CPT-4: 22412 02/06/2018 UA W/MICR CPT-4: 07064 02/06/2018 CUR TOBACCO NON-USER CPT-4: G8457 01/30/2018 REPAIR BLADDER & VAGINA CPT-4: 80162 01/06/2017 REPAIR OF RECTOCELE CPT-4: 20050 01/06/2017 BREAST SURGERY PROCEDURE CPT-4: 96675 Unknown LAPARO CHOLECYSTECTOMY/EXPLR CPT-4: 16727 Unknown HYSTERECTOMY/REVISE VAGINA CPT-4: 75835 Unknown Vital Signs Date Vital 09/25/2019 Blood [...] 1: 106/58 Code: 8480-6 BMI: 26.3 Code: 74005-9 Heart Rate 1: 72 bpm Height: 4'10" Respiratory Rate: 20 bpm SpO2: 97% Tempera ture: 36.6 (C) / 97.8 (F) Weight: 128 lbs 07/10/2018 Blood Pressure 1: 122/70 Code: 8480-6 BMI: 28.6 Code: 50292-4 Heart Rate 1: 80 bpm Height: 4'10" Respiratory Rate: 20 bpm SpO2: 96% Tempera ture: 36.9 (C) / 98.4 (F) Weight: 139 lbs 05/06/2018 Blood Pressure 1: 112/54 Code: 8480-6 BMI: 27.5 Code: 57968-2 Heart Rate 1: 80 bpm Height: 4'10" [...] 1: 146/80 Code: 8480-6 BMI: 30.0 Code: 41823-9 Heart Rate 1: 76 bpm Height: 4'10" Respiratory Rate: 20 bpm SpO2: 97% Tempera ture: 36.7 (C) / 98.1 (F) Weight: 146 lbs 02/26/2018 Blood Pressure 1: 126/80 Code: 8480-6 BMI: 29.6 Code: 47623-6 Heart Rate 1: 80 bpm Height: 4'10" Respiratory Rate: 18 bpm SpO2: 96% Tempera ture: 37.0 (C) / 98.6 (F) Weight: 144 lbs 01/30/2018 Blood Pressure 1: 120/78 Code: 8480-6 BMI: 29.6 Code: 52392-7 Heart Rate 1: 84 bpm Height: 4'10" Respiratory Rate: 20 bpm SpO2: 97% Tempera ture: 36.0 (C) / 96.8 (F) Weight: 144 lbs Functional Status No Functional Status data Reason For Visit Reason For Visit Effective Dates Notes Annual Checkup 09/25/2019 pt labs are scanned into chart abdominal pain 08/26/2019 follow up 05/07/2019 [facility] left lower quadrant back [...] 07/10/2018 Hospital/ER fwup follow up 05/06/2018 Hospital [facility] abdominal pain 04/17/2018 follow up 03/26/2018 dizziness 03/15/2018 Patient had bladder biopsy on Sunday by Dr Noonan. states she has been holding her coumadin since Sunday insomnia 02/26/2018 blood in urine 02/06/2018 ~generic 01/30/2018 Establishing Care Encounters Encounter Performer Location Codes Date ([id number]) OFFICE/OUTPATIENT VISIT EST Diagnosis: Sigmoid diverticulitis[ICD10: K57.32] Jalyn DAILY [employer] CPT-4: 70435 08/26/2019 ([id number]) OFFICE/OUTPATIENT VISIT EST Diagnosis: Clostridium difficile colitis[ICD10: A04.72] Jalyn DAILY [employer] CPT-4: 56357 05/07/2019 ([id number]) OFFICE/OUTPATIENT VISIT EST Diagnosis: Clostridium difficile colitis[ICD10: A04.72] Diagnosis: Edema[ICD10: R60.9] Jalyn Leigh GTIROSS [employer] CPT-4: 42682 04/23/2019 ([id number]) OFFICE/OUTPATIENT VISIT EST Diagnosis: Constipation[ICD10: K59.00] Diagnosis: Left lower quadrant pain[ICD10: R10.32] Bhavna Brarosman DAILY [employer] CPT-4: 90438 03/27/2019 ([id number]) OFFICE/OUTPATIENT VISIT EST Diagnosis: Acute kidney failure, unspecified[ICD10: N17.9] Jalyn DAILY [employer] CPT-4: 34118 03/18/2019 ([id number]) OFFICE/OUTPATIENT VISIT EST Diagnosis: Essential (primary) hypertension[ICD10: I10] Diagnosis: Chronic atrial fibrillation[ICD10: I48.2] Diagnosis: Mixed hyperlipidemia[ICD10: E78.2] Diagnosis: Other fatigue[ICD10: R53.83] Diagnosis: Abdominal distension (gaseous)[ICD10: R14.0] Jalyn DAILY [employer] [facility] CPT-4: 31384 02/12/2019 ([id number]) OFFICE/OUTPATIENT VISIT EST Diagnosis: Low back pain[ICD10: M54.5] Bhavna DOUGHERTY S. Michelle RENDER [employer] [facility] CPT-4: 20737 12/25/2018 ([id number]) OFFICE/OUTPATIENT VISIT EST Diagnosis: Low back pain[ICD10: M54.5] Bhavna DOUGHERTY S. O RENDER [employer] [facility] CPT-4: 66206 12/12/2018 ([id number]) OFFICE/OUTPATIENT VISIT EST Diagnosis: Anemia, unspecified[ICD10: D64.9] Diagnosis: Chronic atrial fibrillation[ICD10: I48.2] Diagnosis: Other fatigue[ICD10: R53.83] Jalyn DAILY [employer] [facility] CPT-4: 03270 10/10/2018 ([id number]) OFFICE/OUTPATIENT VISIT EST Diagnosis: Acute on chronic combined systolic (congestive) and diastolic (congestive) heart failure[ICD10: I50.43] Diagnosis: Chronic atrial fibrillation[ICD10: I48.2] Jalyn DAILY [employer] [facility] CPT-4: 60883 08/27/2018 ([id number]) OFFICE/OUTPATIENT VISIT EST Diagnosis: Chronic atrial fibrillation[ICD10: I48.2] 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] Diagnosis: penitentiary (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[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] Jalyn DAILY [employer] [facility] CPT-4: 42918 08/13/2018 ([id number]) OFFICE/OUTPATIENT VISIT EST Diagnosis: Acute on chronic combined systolic (congestive) and diastolic (congestive) heart failure[ICD10: I50.43] Diagnosis: Essential (primary) hypertension[ICD10: I10] Diagnosis: Anemia, unspecified[ICD10: D64.9] Jalyn DAILY [facility] CPT-4: 14597 07/10/2018 ([id number]) OFFICE/OUTPATIENT VISIT EST Diagnosis: Chronic atrial fibrillation[ICD10: I48.2] Diagnosis: Acute on chronic combined systolic (congestive) and diastolic (congestive) heart failure[ICD10: I50.43] Diagnosis: Localized edema[ICD10: R60.0] Jalyn DAILY [employer] [facility] CPT-4: 37113 05/06/2018 ([id number]) OFFICE/OUTPATIENT VISIT EST Diagnosis: Generalized abdominal pain[ICD10: R10.84] Diagnosis: Pelvic and perineal pain[ICD10: R10.2] Diagnosis: Localized edema[ICD10: R60.0] Bhavna DAILY [employer] [facility] CPT-4: 81358 04/17/2018 ([id number]) OFFICE/OUTPATIENT VISIT EST Diagnosis: Urinary tract infection, site not specified[ICD10: N39.0] Diagnosis: Other insomnia[ICD10: G47.09] Diagnosis: Other fatigue[ICD10: R53.83] Diagnosis: Other forms of dyspnea[ICD10: R06.09] Diagnosis: Chronic atrial fibrillation[ICD10: I48.2] Diagnosis: Restless legs syndrome[ICD10: G25.81] Jalyn Bullnahidnéstor DAILY [employer] [facility] CPT-4: 71493 03/26/2018 ([id number]) OFFICE/OUTPATIENT VISIT EST Diagnosis: Altered mental status, unspecified[ICD10: R41.82] Diagnosis: penitentiary (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[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] Diagnosis: Hematuria, unspecified[ICD10: R31.9] Bhavna DAILY [employer] [facility] CPT-4: 14925 03/15/2018 ([id number]) NURSE/OUTPATIENT VISIT EST Diagnosis: Urinary tract infection, site not specified[ICD10: N39.0] Jalyn Abimbola DAILY [employer] CPT-4: 13031 02/06/2018 OFFICE/OUTPATIENT VISIT NEW Diagnosis: [employer] (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[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] Diagnosis: Essential (primary) hypertension[ICD10: I10] Diagnosis: Mixed hyperlipidemia[ICD10: E78.2] Diagnosis: Other fatigue[ICD10: R53.83] Diagnosis: Cardiac arrhythmia, unspecified[ICD10: I49.9] Diagnosis: Generalized abdominal pain[ICD10: R10.84] Diagnosis: Urinary tract infection, site not specified[ICD10: N39.0] Diagnosis: Other insomnia[ICD10: G47.09] Bhavna DAILY [employer] CPT-4: 94922 01/30/2018 Plan of Care Planned Activity Notes Codes Status Date Visit Diagnosis Plan: Essential (primary) hypertension Discussion: Stable ICD-9 : 401.9 ICD-10 : I10 09/25/2019 Visit Diagnosis Plan: Encounter for [facility] adult medical examination with abnormal findings [...] ICD-9 : 428.43 ICD-10 : I50.43 09/25/2019 Appointment: Jalyn Daily WPtel: [phone] [facility] [address] Annual Well Visit 09/25/2019 Care Plan: COMPREHEN METAB[place] : 01893-1 Pending 09/22/2019 Care Plan: COMPLETE CBC W/AUTO DIFF WBC LOINC : 48462-1 Pending 09/22/2019 Appointment: Bhavna Escalante [address] pt[address] feeling better and still had [...] : K57.32 08/26/2019 Appointment: Jalyn Daily WPtel: [address] [place], [place] [id number] ACUTE ILLNESS 08/26/2019 Appointment: Jalyn Daily WPtel: [address] [place], [place] [phone] originally 4 mo follow up CANCELED 2018 Visit Diagnosis Plan: Clostridium difficile colitis Di scussion: Vancomycin daily for another week then 125mg every 3 days for 1 month then stop Fwup in September ICD-9 : 008.45 ICD-10 : A04.72 05/07/2019 Appointment: Jalyn Daily WPtel: [address] [place], [place] [phone] FOLLOW UP 05/07/2019 Visit Diagnosis [...] ICD-10 : A04.72 04/23/2019 Appointment: Jalyn Dailytel: [address] [place], [place] [id number] Hospital Follow Up 04/23/2019 Appointment: Bhavna Escalante [address] [place], [place] [address]a [place] [address] [place] CANCELED 04/15/2019 Visit Diagnosis Plan: Left lower quadrant pain Discuss ion: will start with abdominal xray to rule out acute obstruction/constipation. if no acute findings, will treat as diverticulitis due to patient's past history. ICD-9 : 789.04 ICD-10 : R10.32 03/27/2019 Appointment: Bhavna Escalante [address] [place], [place] [address] ACUTE ILLNESS 03/27/2019 Visit Diagnosis Plan: Acute kidney failure, unspecifie d Discussion: Was given Meloxicam at urgent care--discussed no NSAIDs, hydrate, repeat Chem 7 in 1 week ICD-9 : 584.9 ICD-10 : N17.9 03/18/2019 Appointment: Jalyn Daily WPtel: [address] [place] [address] [place] ACUTE ILLNESS 03/18/2019 Visit Diagnosis Plan: Abdominal distension (gaseous) D iscussion: Trial of Zenpep q AC ICD-9 : 787.3 ICD-10 : R14.0 02/12/2019 Visit Diagnosis Plan: Essential (primary) hypertension Discussion: Stable ICD-9 : 401.9 ICD-10 : I10 02/12/2019 Visit Diagnosis Plan: Chronic atrial fibrillation Disc ussion: Following routinely with Cardiology ICD-9 : 427.31 ICD-10 : I48.2 02/12/2019 Appointment: Jalyn Daily WPtel: [address] [place] [address] [place] FOLLOW UP 02/12/2019 Appointment: Bhavna Escalante [address] [place] [address] [place] Canceled per guillermina. sending for mri [...] : M54.5 12/25/2018 Appointment: Bhavna Escalante [address] [place] [address] ACUTE ILLNESS 12/25/2018 Visit Diagnosis Plan: Low [...] : M54.5 12/12/2018 Appointment: Bhavna Escalante [address] [place], [place] [phone] ACUTE ILLNESS 12/12/2018 Patient Education: cyclobenzaprine- [employer] Coupon [id number] https://www.blogTV/sampleProver Technology/resources/getResource/61/ja5201a2-g447-4k2p-r5 Completed 12/12/2018 Appointment: Bhavna EscalanteRuben [address] [place], [place] [phone] CANCELED 12/06/2018 Visit Diagnosis Plan: Anemia, unspecified Discussion: Update CBC ICD-9 : 285.9 ICD-10 : D64.9 10/10/2018 Visit Diagnosis Plan: Chronic atrial fibrillation Disc ussion: Cardiology monitoring PT/INR Follow Up: 4 months ICD-9 : 427.31 ICD-10 : I48.2 10/10/2018 Visit Diagnosis Plan: Other fatigue Discussion: Increa se activity--discussed 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 ICD-9 : 780.79 ICD-10 : R53.83 10/10/2018 Appointment: Jalyn Daily WPtel: [address] [place] [address] US FOLLOW UP 10/10/2018 Visit Diagnosis Plan: [...] Daily WPtel: [facility] [place] [address] [place] FOLLOW UP 08/27/2018 Visit Diagnosis Plan: [...] ICD-10 : I48.2 08/13/2018 Visit Diagnosis Plan: penitentiary (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 Discussion: Increase Coumadin to 5mg po daily and repeat PT/INR in 2 weeks ICD-9 : V58.61 ICD-10 : Z79.01 08/13/2018 Appointment: Jalyn Daily [facility]Ptel: [facility] [facility] [place] FOLLOW UP 08/13/2018 Patient Education: bumetanide- [employer] Coupon [phone] https://www.blogTV/tracx/resources/getResource/61/2ck11a23-4ax4-9u99-ny Completed 08/13/2018 Patient Education: levothyroxine- [employer] Coupon [id number] https://www.blogTV/tracx/resources/getResource/61/6235351o-3932-9r69-df Completed 08/13/2018 Patient Education: warfarin- [employer] Coupon [id number] https://www.blogTV/tracx/resources/getResource/61/17865559-mr78-39v5-0q Completed 08/13/2018 Patient Education: pantoprazole- [employer] Coupon [phone] https://www.blogTV/tracx/resources/getResource/61/w9680a09-64k1-08mn-0x Completed 08/13/2018 Patient Education: spironolactone- [employer] Coupon [phone] [id number] https://www.blogTV/tracx/resources/getResource/61/7kw281i3-d154-6612-ad Completed 08/13/2018 Visit Diagnosis Plan: Anemia, unspecified [...] : I50.43 07/10/2018 Appointment: Jalyn Daily WPtel: [address] [place] [address] FOLLOW UP 07/10/2018 Visit Diagnosis Plan: Acute [...] : I48.2 05/06/2018 Appointment: Jalyn Daily WPtel: [address] [place] [address] [place] FOLLOW UP 05/06/2018 Visit Diagnosis Plan: [...] ICD-10 : R10.2 04/17/2018 Appointment: Bhavna Escalante [address] [place] [address] ACUTE ILLNESS 04/17/2018 Patient Education: Patient Medication Summary Completed 04/17/2018 Care Plan: CT ABDOMEN W/O & W/DYE LOINC : 16634-5 Pending 04/17/2018 Care Plan: CT PELVIS W/O & W/DYE LOINC : 79979-8 Pending 04/17/2018 Appointment: Jalyn Daily WPtel: [id number] [place] CANC[facility]ED 04/10/2018 Visit Diagnosis Plan: Chronic [...] : R06.09 03/26/2018 Appointment: Jalyn Daily WPtel: [id number] [place] Follow UP 03/26/2018 Patient Education: Patient [...] : R41.82 03/15/2018 Appointment: Bhavna Escalante [address] [place] [address] ACUTE ILLNESS 03/15/2018 Patient Education: Patient Medication Summary Completed 03/15/2018 Visit Diagnosis Plan: Primary insomnia Discussion: Tri al of elavil 10mg po q HS ICD-9 : 780.52 ICD-10 : F51.01 02/26/2018 Visit Diagnosis Plan: Functional dyspepsia Discussion: Increase protonix to 40mg po BID Follow Up: 1 months ICD-9 : 536.8 ICD-10 : K30 02/26/2018 Appointment: Jalyn Daily WPtel: [address] [place] [address] WELCOME TO MEDICARE 02/26/2018 Patient Education: Patient Medication Summary Completed 02/26/2018 Referral: Song Noonan WPtel: [address] [place], [place] [phone] [place] Referral Initiated 02/19/2018 Appointment: Jalyn Daily WPtel: [address] [place], [place] [id number] [place] LAB 02/06/2018 Patient Education: Patient Medication Summary Completed 02/06/2018 Appointment: Jalyn Daily WPtel: [address] [place], [place] [phone] [place] CANCELED 02/01/2018 Care Plan: US EXAM ABDOM COMPLETE liver LOINC : 07673-9 Pending 01/31/2018 Visit Diagnosis Plan: Other fatigue [...] ICD-10 : I10 01/30/2018 Appointment: Bhavna Escalante [address] [place] [address] NEW PATIENT 01/30/2018 Patient Education: Patient Medication Summary Completed 01/30/2018 Instructions No Instructions Medical Equipment No Medical Equipment data Health Concerns Section Health Concerns data not found Goals Section Goals data not found Interventions Section Interventions data not found Health Status Evaluations/Outcomes Section Health Status Evaluations/Outcomes data not found Advance Directives No Advance Directive data
--- OUTSIDE RECORDS SUMMARY | 2020-02-10 14:07 | XMS REPORT | CCD ---
Author Author Riana Escalante Organization [facility] Address [address] [place] [address] Phone Unavailable Care Team Providers Care Driver Starting Gate Name Role Phone PP Unavailable CCM Unavailable Summary Purpose Interface Exchange Insurance Providers Payer name Policy type / Coverage type Covered alliance party ID Effective Begin Date Effective End Date WPS MEDICARE [place] B [place] Medicare Part B [id number] 2017 Unknown Cigna Medicare Part B [id number] 2017 Unknown Family History Family History data not found Social History Social History Element Codes Description Effective Dates Tobacco history SNOMED CT: 597096952 Never smoker 01/30/[address]: 475436783 Never drinks alcohol 2017 Allergies, Adverse Reactions, [...] hypertension ICD-9: 401.9 ICD-10: I10 01/30/2018 Active [facility] (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 ICD-9: V58.6 1 [...] ER 10 mEq capsule,extended release RxNorm : 259099 1 Capsule(s) Oral two times a day on and 1 capsule 09/26/2019 09/26/2019 Inactive warfarin 5 mg tablet RxNorm: 714119 1 Tablet(s) Oral and 1/2 tablet (2.5mg) , , Sun & Sun08/26/2019 No Stop Date Active Colace 100 mg capsule RxNorm: 5647951 1 Capsule(s) Oral QD 08/26/1911/24/2019 Active vancomycin 125 mg capsule RxNorm: 763656 2 Capsule(s) Oral Q8H 08/0909/05/2019 Inactive levothyroxine 25 mcg tablet RxNorm: 845909 1 Tablet(s) PO QD 201910/11/2019 Active spironolactone 25 mg tablet RxNorm: 265976 TAKE 1 TABLET BY DOUGLAS TH TWICE DAILY 06/22/2019 09/19/2019 Inactive losartan 25 mg tablet RxNorm: 917083 TAKE 1 TABLET BY M OUTH ONCE DAILY IN THE MORNING 05/26/2019 No Stop Date Active bumetanide 1 mg tablet RxNorm: 634791 TAKE 1 TABLET BY MOUTH TWICE DAILY AT 6AM AND 6PM 05/23/2019 No Stop Date Active vancomycin 125 mg capsule RxNorm: 041647 1 Capsule(s) Oral Q3D 04/1008/25/2019 Inactive pantoprazole 40 mg tablet,delayed release RxNorm: 573630 1-2 Ta blet(s) Oral QD 04/23/2019 05/23/2019 Inactive potassium chloride ER 10 mEq capsule,extended release RxNorm : 120832 1 Capsule(s) Oral QD 04/23/2019 09/25/2019 Inactive warfarin 5 mg tablet RxNorm: 875112 Tablet(s) Oral Take 1 tablet (5mg) by mouth on and Sun then 1/2 tablet (2.5mg) on Sun, Sun, Thurs, Sat and Sun 04/23/2019 08/25/2019 Inactive temazepam 15 mg capsule RxNorm: 839071 TAKE 1 TO 2 CAPS ULES BY MOUTH AT BEDTIME NEEDED FOR SLEEP 04/08/2019 09/25/2019 Inactive Cipro 250 mg tablet RxNorm: 801989 1 Tablet(s) Oral two times a day 03/27/2019 04/03/2019 Inactive metronidazole 500 mg tablet RxNorm: 056617 1 Tablet(s) Oral thr ee times a day 03/27/2019 04/03/2019 Inactive bumetanide 1 mg tablet RxNorm: 233480 1 Tablet(s) PO BID (6am a nd 6pm) 02/13/2019 05/13/2019 Inactive levothyroxine 25 mcg tablet RxNorm: 969765 1 Tablet(s) PO QD 201807/13/2019 Inactive warfarin 5 mg tablet RxNorm: 590488 1 TABLET(S) PO TU , WED, THURS, SAT AND SUN AND 1/2 TABLET ON 02/04/2019 02/11/2019 Inactive Kendra ent requests 90 days supply warfarin 5 mg tablet RxNorm: 195648 1 TABLET(S) PO TUES , WED, THURS, SAT AND SUN AND 1/2 TABLET ON 02/03/2019 02/03/2019 Inactive Kendra ent requests 90 days supply levothyroxine 25 mcg tablet RxNorm: 138252 1 Tablet(s) PO QD 201802/03/2019 Inactive warfarin 5 mg tablet RxNorm: 601533 1 Tablet(s) PO Tues , Wed, Thurs, Sat and Sun and 1/2 tablet on 01/31/2019 02/02/2019 Inactive temazepam 15 mg capsule RxNorm: 117049 TAKE 1 TO 2 CAPS ULES BY MOUTH AT BEDTIME NEEDED FOR SLEEP 01/31/2019 04/07/2019 Inactive cyclobenzaprine 10 mg tablet RxNorm: 596648 1 Tablet(s) PO Q8H as needed 12/30/2018 09/25/2019 Inactive losartan 25 mg tablet RxNorm: 795791 1 Tablet(s) PO QAM 12/27/2018 Inactive Lidoderm 5 % topical patch RxNorm: 1578868 1 Application TOP Q12H and then off for 12 hours 12/25/2018 01/23/2019 Inactive Lidoderm 5 % topical patch RxNorm: 7260278 1 Application TOP Q12H and then off for 12 hours 12/25/2018 12/24/2018 Inactive cyclobenzaprine 5 mg tablet RxNorm: 730248 1 Tablet(s) PO Q8H a s needed 12/12/2018 12/24/2018 Inactive spironolactone 25 mg tablet RxNorm: 510483 1 Tablet(s) PO BID 09/2006/16/2019 Inactive change in directions to BID pantoprazole 40 mg tablet,delayed release RxNorm: 166207 1 Tabl et(s) PO QD 09/20/2018 04/22/2019 Inactive Patient requests 9 0 days supply spironolactone 25 mg tablet RxNorm: 216474 1 Tablet(s) PO BID 08/2609/19/2018 Inactive change in directions to BID pantoprazole 40 mg tablet,delayed release RxNorm: 713243 1 Tabl et(s) PO QD 08/15/2018 09/19/2018 Inactive Patient requests 9 0 days supply carvedilol 6.25 mg tablet RxNorm: 180517 1 Tablet(s) PO BID 019 02/08/2019 Inactive pantoprazole 40 mg tablet,delayed release RxNorm: 526470 1 Tablet(s) PO QD 1 TABLET(S) PO BID 08/13/2018 08/15/2018 Inactive Patient reque sts 90 days supply bumetanide 1 mg tablet RxNorm: 682724 1 Tablet(s) PO BID (6am a nd 6pm) 08/13/2018 02/08/2019 Inactive bumetanide 0.5 mg tablet RxNorm: 603606 1 Tablet(s) PO QPM three days a week--Sunday, Sun, Sunday instead of 1mg dose in evening 08/13/201812/2018 Inactive levothyroxine 25 mcg tablet RxNorm: 048603 1 Tablet(s) PO QD 201801/30/2019 Inactive spironolactone 25 mg tablet RxNorm: 711722 1 Tablet(s) PO QD 201808/25/2018 Inactive losartan 25 mg tablet RxNorm: 072090 1 Tablet(s) PO QAM 08/13/2018 Inactive warfarin 5 mg tablet RxNorm: 726946 1 Tablet(s) PO QD 08/13/201808/09 Inactive pantoprazole 40 mg tablet,delayed release RxNorm: 498378 1 TABL ET(S) PO BID 08/02/2018 08/12/2018 Inactive Patient requests 9 0 days supply temazepam 15 mg capsule RxNorm: 583686 1-2 Capsule(s) P O QHS as needed for sleep 2018 01/31/2019 Inactive Restoril 15 mg capsule RxNorm: 518421 1-2 Capsule(s) PO QHS as needed for sleep 06/04/2018 08/12/2018 Inactive potassium chloride ER 10 mEq capsule,extended release RxNorm : 728038 2 CAPSULE(S) PO QD 05/07/2018 08/04/2018 Inactive Patient reque sts 90 days supply temazepam 22.5 mg capsule RxNorm: 414107 1 Capsule(s) P O QHS as needed for sleep 05/06/2018 08/12/2018 Inactive potassium chloride ER 10 mEq capsule,extended release RxNorm : 297641 2 Capsule(s) PO QD 05/06/2018 05/06/2018 Inactive ropinirole 1 mg tablet RxNorm: 273656 1 TABLET(S) PO QHS FOR RE STLESS LEGS 03/27/2018 04/25/2018 Inactive Patient requests 9 0 days supply ropinirole 1 mg tablet RxNorm: 852890 1 Tablet(s) PO QHS for re stless legs 03/26/2018 03/26/2018 Inactive cefdinir 300 mg capsule RxNorm: 630344 1 Capsule(s) PO BID 03/26/20 18 03/30/2018 Inactive temazepam 15 mg capsule RxNorm: 052392 1 Capsule(s) PO QHS as neede d 03/20/2018 03/25/2018 Inactive Lunesta 3 mg tablet RxNorm: 529094 1 Tablet(s) PO QHS as needed for sleep 03/04/2018 03/19/2018 Inactive amitriptyline 10 mg tablet RxNorm: 140997 1 Tablet(s) PO QHS fo r sleep 02/26/2018 03/03/2018 Inactive escitalopram 20 mg tablet RxNorm: 006848 1 Tablet(s) PO QHS 018 08/12/2018 Inactive pantoprazole 40 mg tablet,delayed release RxNorm: 004327 1 Tabl et(s) PO BID 02/26/2018 04/26/2018 Inactive Coumadin 2.5 mg tablet RxNorm: 104089 1 Tablet(s) PO MWF 02/18/2018 0 07/22/2018 Inactive amiodarone 200 mg tablet RxNorm: 592360 1 Tablet(s) PO QD No Start Da te Active colestipol 1 gram tablet RxNorm: 2885638 1 Tablet(s) PO BID No Start Date Active pantoprazole 40 mg tablet,delayed release RxNorm: 883505 1 Tabl et(s) PO QD No Start Date Active pantoprazole 40 mg tablet,delayed release RxNorm: 433221 1 Tabl et(s) PO QD No Start Date 02/25/2018 Inactive bumetanide 1 mg tablet RxNorm: 728857 1 Tablet(s) PO BID (6am a nd 6pm) No Start Date 08/12/2018 Inactive potassium chloride ER 10 mEq tablet,extended release RxNorm: 140714 1 Tablet(s) PO QD No Start Date 02/11/2019 Inactive levothyroxine 25 mcg tablet RxNorm: 426453 1 Tablet(s) PO QD No Sta rt Date 08/12/2018 Inactive spironolactone 25 mg tablet RxNorm: 540658 1 Tablet(s) PO QD No Sta rt Date 08/12/2018 Inactive warfarin 5 mg tablet RxNorm: 622316 1 Tablet(s) PO MWF No Start Date 08/12/2018 Inactive warfarin 5 mg tablet RxNorm: 802570 1 Tablet(s) PO , Sun, , Sat and Sun then 1/2 tablet (2.5mg) on Mon & Fri No Start Date 08/12/2018 Inactive losartan 25 mg tablet RxNorm: 778987 1 Tablet(s) PO QAM No Start Da te 08/12/2018 Inactive carvedilol 6.25 mg tablet RxNorm: 650884 1 Tablet(s) PO BID No Star t Date 08/12/2018 Inactive warfarin 2.5 mg tablet RxNorm: 794151 1 Tablet(s) PO , s, Sat and Sun No Start Date 08/12/2018 Inactive Coumadin 2.5 mg tablet RxNorm: 364542 Tablet(s) Sun and Sun PO No Start Date 02/17/2018 Inactive Children's Multivitamin with Iron tablet RxNorm: 1 Table t(s) PO QD No Start Date 04/22/2019 Inactive potassium chloride ER 20 mEq tablet,extended release(p art/cryst) RxNorm: 2973701 2 Tablet(s) PO QD No Start Date 05/05/2018 Inactive Coumadin 5 mg tablet RxNorm: 870053 Tablet(s) PO No Start Date 2017 Inactive mexiletine 200 mg capsule RxNorm: 1072519 1 Capsule(s) PO BID No St art Date 03/25/2018 Inactive ferrous sulfate 325 mg (65 mg iron) tablet RxNorm: 485885 1 Tab let(s) PO QD No Start Date 07/22/2018 Inactive cyclobenzaprine 10 mg tablet RxNorm: 726574 1 Tablet(s) PO Q8H as needed No Start Date 12/29/2018 Inactive potassium chloride ER 10 mEq capsule,extended release RxNorm : 254178 2 Capsule(s) PO QD No Start Date 12/11/2018 Inactive Coumadin 5 mg tablet RxNorm: 260679 1 Tablet(s) PO , , Sun and Sun No Start Date 07/22/2018 Inactive Restoril 15 mg capsule RxNorm: 585002 1-2 Capsule(s) PO QHS as needed for sleep No Start Date 05/05/2018 Inactive metoprolol succinate ER 25 mg tablet,extended release 24 hr RxNorm: 813554 1 Tablet(s) PO QD No Start Date 08/12/2018 Inactive Entresto 24 mg-26 mg tablet RxNorm: 0162586 1 Tablet(s) PO BID No S tart Date 08/12/2018 Inactive warfarin 5 mg tablet RxNorm: 542953 1 Tablet(s) PO , Sun, , Sat and Sun and 1/2 tablet on Sun/Sun No Start Date 01/30/2019 Inactive amiodarone 200 mg tablet RxNorm: 344925 2 Tablet(s) PO BID No Start Date 10/09/2018 Inactive furosemide 20 mg tablet RxNorm: 290262 1 Tablet(s) PO QD No Start D ate 08/12/2018 Inactive amiodarone 200 mg tablet RxNorm: 632019 1 Tablet(s) PO BID No Start Date 08/26/2018 Inactive atorvastatin 40 mg tablet RxNorm: 023992 1 Tablet(s) PO QD No Start Date 08/12/2018 Inactive warfarin 5 mg tablet RxNorm: 225733 1/2 Tablet(s) PO on Sun, Sun, Sun, Sun then 1 tablet on Sun, , Sat No Start Date 04/22/2019 Inactive Medication Administered No Medication Administered data Immunizations Vaccine Codes Date Status Pneumovax CVX: 33 05/14/2019 Hepatitis A CVX: 83 03/25/2019 Influenza CVX: 135 03/25/2019 Results Observation Observation Code Item Item Code Result Date S [facility] Location UA W/MICR 02054 UA Urine Appear Normal 02/06/2018 Unk nown UA W/MICR 64367 UA Protein 3+ 02/06/2018 Unknown UA W/MICR 68220 UA Hemoglobin Trace 02/06/2018 Unkno wn UA W/MICR 22351 UA Glucose Negative 02/06/2018 Unknown UA W/MICR 15966 UA Ketones Negative 02/06/2018 Unknown UA W/MICR 50639 UA pH 5.5 02/06/2018 Unknown UA W/MICR 21407 U Spec [place] 1.025 02/06/2018 Unkn own UA W/MICR 48596 UA Bilirubin Negative 02/06/2018 Unknow n UA W/MICR 36353 UA Leuk Esteras Trace 02/06/2018 Unk nown UA W/MICR 71753 UA Nitrite NEG 02/06/2018 Unknown UA W/MICR 10956 UA WBC/hpf 11-25 02/06/2018 Unknown UA W/MICR 28369 UA RBC hpf 0-5 02/06/2018 Unknown UA W/MICR 25876 UA Hyaline Cast 16-25 02/06/2018 Unk nown UA W/MICR 29612 UA Squam Epi Few 02/06/2018 Unknow n Procedures Procedure Codes Date INITIAL PREVENTIVE EXAM CPT-4: G0402 09/25/2019 URINALYSIS NONAUTO W/O SCOPE CPT-4: 65148 03/18/2019 URINE CULTURE/ COLONY COUNT CPT-4: 85725 03/18/2019 URINALYSIS NONAUTO W/O SCOPE CPT-4: 83209 12/12/2018 URINE CULTURE/ COLONY COUNT CPT-4: 26960 03/26/2018 URINALYSIS NONAUTO W/O SCOPE CPT-4: 04240 03/15/2018 INITIAL PREVENTIVE EXAM CPT-4: G0402 02/26/2018 URINALYSIS NONAUTO W/O SCOPE CPT-4: 24088 02/06/2018 URINE CULTURE/ COLONY COUNT CPT-4: 86846 02/06/2018 UA W/MICR CPT-4: 67883 02/06/2018 CUR TOBACCO NON-USER CPT-4: G8457 01/30/2018 REPAIR BLADDER & VAGINA CPT-4: 14397 01/06/2017 REPAIR OF RECTOCELE CPT-4: 29426 01/06/2017 BREAST SURGERY PROCEDURE CPT-4: 76272 Unknown LAPARO CHOLECYSTECTOMY/EXPLR CPT-4: 95298 Unknown HYSTERECTOMY/REVISE VAGINA CPT-4: 05093 Unknown Vital Signs Date Vital 09/25/2019 Blood [...] 1: 106/58 Code: 8480-6 BMI: 26.3 Code: 88265-6 Heart Rate 1: 72 bpm Height: 4'10" Respiratory Rate: 20 bpm SpO2: 97% Tempera ture: 36.6 (C) / 97.8 (F) Weight: 128 lbs 07/10/2018 Blood Pressure 1: 122/70 Code: 8480-6 BMI: 28.6 Code: 18178-9 Heart Rate 1: 80 bpm Height: 4'10" Respiratory Rate: 20 bpm SpO2: 96% Tempera ture: 36.9 (C) / 98.4 (F) Weight: 139 lbs 05/06/2018 Blood Pressure 1: 112/54 Code: 8480-6 BMI: 27.5 Code: 19853-5 Heart Rate 1: 80 bpm Height: 4'10" [...] 1: 146/80 Code: 8480-6 BMI: 30.0 Code: 87822-3 Heart Rate 1: 76 bpm Height: 4'10" Respiratory Rate: 20 bpm SpO2: 97% Tempera ture: 36.7 (C) / 98.1 (F) Weight: 146 lbs 02/26/2018 Blood Pressure 1: 126/80 Code: 8480-6 BMI: 29.6 Code: 26287-9 Heart Rate 1: 80 bpm Height: 4'10" Respiratory Rate: 18 bpm SpO2: 96% Tempera ture: 37.0 (C) / 98.6 (F) Weight: 144 lbs 01/30/2018 Blood Pressure 1: 120/78 Code: 8480-6 BMI: 29.6 Code: 92375-1 Heart Rate 1: 84 bpm Height: 4'10" Respiratory Rate: 20 bpm SpO2: 97% Tempera ture: 36.0 (C) / 96.8 (F) Weight: 144 lbs Functional Status No Functional Status data Reason For Visit Reason For Visit Effective Dates Notes Annual Checkup 09/25/2019 pt labs are scanned into chart abdominal pain 08/26/2019 follow up 05/07/2019 follow up 04/23/2019 [facility]up abdominal pain 03/27/2019 left lower quadrant back [...] 07/10/2018 Hospital/ER fwup follow up 05/06/2018 Hospital [facility] abdominal pain 04/17/2018 follow up 03/26/2018 dizziness 03/15/2018 Patient had bladder biopsy on Sunday by Dr Noonan. states she has been holding her coumadin since Sunday insomnia 02/26/2018 blood in urine 02/06/2018 ~generic 01/30/2018 Establishing Care Encounters Encounter Performer Location Codes Date ([id number]) OFFICE/OUTPATIENT VISIT EST Diagnosis: Sigmoid diverticulitis[ICD10: K57.32] Jalyn DAILY [facility] CPT-4: 03850 08/26/2019 ([id number]) OFFICE/OUTPATIENT VISIT EST Diagnosis: Clostridium difficile colitis[ICD10: A04.72] Jalyn DAILY [facility] CPT-4: 29317 05/07/2019 ([id number]) OFFICE/OUTPATIENT VISIT EST Diagnosis: Clostridium difficile colitis[ICD10: A04.72] Diagnosis: Edema[ICD10: R60.9] Jalyn Leigh Lifestyle [employer] [facility] CPT-4: 14354 04/23/2019 ([id number]) OFFICE/OUTPATIENT VISIT EST Diagnosis: Constipation[ICD10: K59.00] Diagnosis: Left lower quadrant pain[ICD10: R10.32] Bhavna Brarosman DAILY [facility] CPT-4: 36216 03/27/2019 ([id number]) OFFICE/OUTPATIENT VISIT EST Diagnosis: Acute kidney failure, unspecified[ICD10: N17.9] Jalyn DAILY [facility] CPT-4: 10558 03/18/2019 ([id number]) OFFICE/OUTPATIENT VISIT EST Diagnosis: Essential (primary) hypertension[ICD10: I10] Diagnosis: Chronic atrial fibrillation[ICD10: I48.2] Diagnosis: Mixed hyperlipidemia[ICD10: E78.2] Diagnosis: Other fatigue[ICD10: R53.83] Diagnosis: Abdominal distension (gaseous)[ICD10: R14.0] Jlayn DAILY [facility] CPT-4: 63050 02/12/2019 ([id number]) OFFICE/OUTPATIENT VISIT EST Diagnosis: Low back pain[ICD10: M54.5] Bhavna DOUGHERTY S. Michelle RENDER [facility] CPT-4: 99160 12/25/2018 ([id number]) OFFICE/OUTPATIENT VISIT EST Diagnosis: Low back pain[ICD10: M54.5] Bhavna DOUGHERTY S. O RENDER [facility] CPT-4: 08886 12/12/2018 ([id number]) OFFICE/OUTPATIENT VISIT EST Diagnosis: Anemia, unspecified[ICD10: D64.9] Diagnosis: Chronic atrial fibrillation[ICD10: I48.2] Diagnosis: Other fatigue[ICD10: R53.83] Jalyn DAILY [facility] CPT-4: 03796 10/10/2018 ([id number]) OFFICE/OUTPATIENT VISIT EST Diagnosis: Acute on chronic combined systolic (congestive) and diastolic (congestive) heart failure[ICD10: I50.43] Diagnosis: Chronic atrial fibrillation[ICD10: I48.2] Jalyn DAIYL [facility] CPT-4: 57237 08/27/2018 ([id number]) OFFICE/OUTPATIENT VISIT EST Diagnosis: Chronic atrial fibrillation[ICD10: I48.2] 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] Diagnosis: [facility] (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[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] Jalyn DAILY [facility] CPT-4: 42043 08/13/2018 ([id number]) OFFICE/OUTPATIENT VISIT EST Diagnosis: Acute on chronic combined systolic (congestive) and diastolic (congestive) heart failure[ICD10: I50.43] Diagnosis: Essential (primary) hypertension[ICD10: I10] Diagnosis: Anemia, unspecified[ICD10: D64.9] Jalyn DAILY [facility] CPT-4: 77261 07/10/2018 ([id number]) OFFICE/OUTPATIENT VISIT EST Diagnosis: Chronic atrial fibrillation[ICD10: I48.2] Diagnosis: Acute on chronic combined systolic (congestive) and diastolic (congestive) heart failure[ICD10: I50.43] Diagnosis: Localized edema[ICD10: R60.0] Jalyn DAILY [facility] CPT-4: 50448 05/06/2018 ([id number]) OFFICE/OUTPATIENT VISIT EST Diagnosis: Generalized abdominal pain[ICD10: R10.84] Diagnosis: Pelvic and perineal pain[ICD10: R10.2] Diagnosis: Localized edema[ICD10: R60.0] Bhavna DAILY [facility] CPT-4: 06046 04/17/2018 ([id number]) OFFICE/OUTPATIENT VISIT EST Diagnosis: Urinary tract infection, site not specified[ICD10: N39.0] Diagnosis: Other insomnia[ICD10: G47.09] Diagnosis: Other fatigue[ICD10: R53.83] Diagnosis: Other forms of dyspnea[ICD10: R06.09] Diagnosis: Chronic atrial fibrillation[ICD10: I48.2] Diagnosis: Restless legs syndrome[ICD10: G25.81] Jalyn Bullnahidnéstor DAILY [facility] CPT-4: 86261 03/26/2018 ([id number]) OFFICE/OUTPATIENT VISIT EST Diagnosis: Altered mental status, unspecified[ICD10: R41.82] Diagnosis: [facility] (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[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] Diagnosis: Hematuria, unspecified[ICD10: R31.9] Bhavna DAILY [facility] CPT-4: 27134 03/15/2018 ([id number]) NURSE/OUTPATIENT VISIT EST Diagnosis: Urinary tract infection, site not specified[ICD10: N39.0] Jalyn Abimbola DAILY [facility] CPT-4: 70786 02/06/2018 OFFICE/OUTPATIENT VISIT NEW 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] Diagnosis: Essential (primary) hypertension[ICD10: I10] Diagnosis: Mixed hyperlipidemia[ICD10: E78.2] Diagnosis: Other fatigue[ICD10: R53.83] Diagnosis: Cardiac arrhythmia, unspecified[ICD10: I49.9] Diagnosis: Generalized abdominal pain[ICD10: R10.84] Diagnosis: Urinary tract infection, site not specified[ICD10: N39.0] Diagnosis: Other insomnia[ICD10: G47.09] Bhavan DAILY [facility] CPT-4: 76196 01/30/2018 Plan of Care Planned Activity Notes Codes Status Date Visit Diagnosis Plan: Essential (primary) hypertension Discussion: Stable ICD-9 : 401.9 ICD-10 : I10 09/25/2019 Visit Diagnosis Plan: Encounter for [facility] adult medical examination with abnormal findings [...] I50.43 09/25/2019 Appointment: Jalyn Daily WPtel: [phone] [id number] Annual Well Visit 09/25/2019 Care Plan: COMPREHEN METABOLIC PANEL [place] : 98247-6 Pending 09/22/2019 Care Plan: COMPLETE CBC W/AUTO DIFF WBC LOINC : 45941-1 Pending 09/22/2019 Appointment: Bhavna Escalante [address] pt[address] feeling better and still had [...] K57.32 08/26/2019 Appointment: Jalyn Daily WPtel: [address] [place], [place] [phone] ACUTE ILLNESS 08/26/2019 Appointment: Jalyn Daily WPtel: [address] [place], [place] [phone] originally 4 mo follow up CANCELED 2018 Visit Diagnosis Plan: Clostridium difficile colitis Di scussion: Vancomycin daily for another week then 125mg every 3 days for 1 month then stop Fwup in September ICD-9 : 008.45 ICD-10 : A04.72 05/07/2019 Appointment: Jalyn Daily WPtel: [address] [place], [place] [phone] FOLLOW UP 05/07/2019 Visit Diagnosis Plan: [...] : A04.72 04/23/2019 Appointment: Jalyn Dailytel: [address] [place], [place] [phone] Hospital Follow Up 04/23/2019 Appointment: Bhavna Escalante [address] [place], [place] [address]a [place] [address] [place] CANCELED 04/15/2019 Visit Diagnosis Plan: Left lower quadrant pain Discuss ion: will start with abdominal xray to rule out acute obstruction/constipation. if no acute findings, will treat as diverticulitis due to patient's past history. ICD-9 : 789.04 ICD-10 : R10.32 03/27/2019 Appointment: Bhavna Escalante [address] [place], [place] [address] ACUTE ILLNESS 03/27/2019 Visit Diagnosis Plan: Acute kidney failure, unspecifie d Discussion: Was given Meloxicam at urgent care--discussed no NSAIDs, hydrate, repeat Chem 7 in 1 week ICD-9 : 584.9 ICD-10 : N17.9 03/18/2019 Appointment: Jalyn Daily WPtel: [address] [place] [address] [place] ACUTE ILLNESS 03/18/2019 Visit Diagnosis Plan: Abdominal distension (gaseous) D iscussion: Trial of Zenpep q AC ICD-9 : 787.3 ICD-10 : R14.0 02/12/2019 Visit Diagnosis Plan: Essential (primary) hypertension Discussion: Stable ICD-9 : 401.9 ICD-10 : I10 02/12/2019 Visit Diagnosis Plan: Chronic atrial fibrillation Disc ussion: Following routinely with Cardiology ICD-9 : 427.31 ICD-10 : I48.2 02/12/2019 Appointment: Jalyn Daily WPtel: [address] [place] [address] [place] FOLLOW UP 02/12/2019 Appointment: Bhavna Escalante [address] [place] [address] [place] Canceled per guillermina. sending for mri [...] ICD-10 : M54.5 12/25/2018 Appointment: Bhavna Escalante [address] [place] [address] ACUTE ILLNESS 12/25/2018 Visit Diagnosis Plan: Low [...] ICD-10 : M54.5 12/12/2018 Appointment: Bhavna Escalante [address] [place], [place] [phone] ACUTE ILLNESS 12/12/2018 Patient Education: cyclobenzaprine- [employer] Coupon [id number] https://www.Open Me/sampleBitGravity/resources/getResource/61/[email or web address]-[email or web address] Completed 12/12/2018 Appointment: Bhavna EscalanteRuben [address] [place], [place] [phone] CANCELED 12/06/2018 Visit Diagnosis Plan: Anemia, unspecified Discussion: Update CBC ICD-9 : 285.9 ICD-10 : D64.9 10/10/2018 Visit Diagnosis Plan: Chronic atrial fibrillation Disc ussion: Cardiology monitoring PT/INR Follow Up: 4 months ICD-9 : 427.31 ICD-10 : I48.2 10/10/2018 Visit Diagnosis Plan: Other fatigue Discussion: Increa se activity--discussed 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 ICD-9 : 780.79 ICD-10 : R53.83 10/10/2018 Appointment: Jalyn Daily WPtel: [address] [place] [address] US FOLLOW UP 10/10/2018 Visit Diagnosis Plan: [...] : I50.43 08/27/2018 Appointment: Jalyn Daily WPtel: [facility] [place] [phone] [place] FOLLOW UP 08/27/2018 Visit Diagnosis Plan: [...] ICD-10 : I48.2 08/13/2018 Visit Diagnosis Plan: [facility] (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 Discussion: Increase Coumadin to 5mg po daily and repeat PT/INR in 2 weeks ICD-9 : V58.61 ICD-10 : Z79.01 08/13/2018 Appointment: [phone] [id number] [facility] 08/13/2018 Patient Education: bumetanide- [employer] Coupon [phone] https://www.Open Me/[employer]/resources/getResource/61/1kb15x01-3pa2-2e10-es Completed 08/13/2018 Patient Education: levothyroxine- [employer] Coupon [id number] https://www.Open Me/[employer]/resources/getResource/61/1586047e-2987-6x76-av Completed 08/13/2018 Patient Education: warfarin- [employer] Coupon [id number] [phone] https://www.Open Me/[employer]/resources/getResource/61/48389193-vm47-45u9-4t Completed 08/13/2018 Patient Education: pantoprazole- [employer] Coupon [phone] https://www.Open Me/[employer]/resources/getResource/61/s0257x28-65m9-84bi-0y Completed 08/13/2018 Patient Education: spironolactone- [employer] Coupon [phone] https://www.Open Me/[employer]/resources/getResource/61/1um391a7-e289-3937-ra Completed 08/13/2018 Visit Diagnosis Plan: Anemia, unspecified [...] : I50.43 07/10/2018 Appointment: Jalyn Daily WPtel: [address] [place] [address] FOLLOW UP 07/10/2018 Visit Diagnosis Plan: Acute [...] : I48.2 05/06/2018 Appointment: Jalyn Daily WPtel: [address] [place], [place] [address] US FOLLOW UP 05/06/2018 Visit Diagnosis Plan: [...] ICD-10 : R10.2 04/17/2018 Appointment: Bhavna Escalante [address] [place] [address] ACUTE ILLNESS 04/17/2018 Patient Education: Patient Medication Summary Completed 04/17/2018 Care Plan: CT ABDOMEN W/O & W/DYE LOINC : 16402-3 Pending 04/17/2018 Care Plan: CT PELVIS W/O & W/DYE LOINC : 77127-7 Pending 04/17/2018 Appointment: Jalyn Daily WPtel: [id number] [facility]ED 04/10/2018 Visit Diagnosis Plan: Chronic [...] : R06.09 03/26/2018 Appointment: Jalyn Daily WPtel: [id number] [facility] Follow UP 03/26/2018 Patient Education: [...] ICD-10 : R41.82 03/15/2018 Appointment: Bhavna Escalante [address] [place] [address] ACUTE ILLNESS 03/15/2018 Patient Education: Patient Medication Summary Completed 03/15/2018 Visit Diagnosis Plan: Primary insomnia Discussion: Tri al of elavil 10mg po q HS ICD-9 : 780.52 ICD-10 : F51.01 02/26/2018 Visit Diagnosis Plan: Functional dyspepsia Discussion: Increase protonix to 40mg po BID Follow Up: 1 months ICD-9 : 536.8 ICD-10 : K30 02/26/2018 Appointment: Jalyn Daily WPtel: [address] [place] [address] WELCOME TO MEDICARE 02/26/2018 Patient Education: Patient Medication Summary Completed 02/26/2018 Referral: Song Noonan WPtel: [address] [place], [place] [id number] [place] Referral Initiated 02/19/2018 Appointment: Jalyn Daily WPtel: [address] [place], [place] [phone] [place] LAB 02/06/2018 Patient Education: Patient Medication Summary Completed 02/06/2018 Appointment: Jalyn Daily WPtel: [address] [place], [place] [phone] US CANCELED 02/01/2018 Care Plan: US EXAM ABDOM COMPLETE liver LOINC : 10229-6 Pending 01/31/2018 Visit Diagnosis Plan: Other fatigue Discussion: will o rder fasting blood work to assess for any anemia or infection especially due to recent surgery and bleeding risks. ICD-9 : 780.79 ICD-10 : R53.83 01/30/2018 Visit Diagnosis Plan: [facility] (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 Discussion: instructed [...] : I10 01/30/2018 Appointment: Bhavna Escalante [address] [place] [address] NEW PATIENT 01/30/2018 Patient Education: Patient Medication Summary Completed 01/30/2018 Instructions No Instructions Medical Equipment No Medical Equipment data Health Concerns Section Health Concerns data not found Goals Section Goals data not found Interventions Section Interventions data not found Health Status Evaluations/Outcomes Section Health Status Evaluations/Outcomes data not found Advance Directives No Advance Directive data
--- OUTSIDE RECORDS SUMMARY | 2020-02-10 14:07 | XMS REPORT | CCD ---
Author Author Riana Escalante Organization [facility] Address [address] [place] [address] Phone Unavailable Care Team Providers [employer] Name Role Phone PP Unavailable CCM Unavailable Summary Purpose Interface Exchange Insurance Providers Payer name Policy type / Coverage type Covered republican ID Effective Begin Date Effective End Date WPS MEDICARE PART B [place] Medicare Part B [id number] 2017 Unknown Cigna Medicare Part B [id number] 2017 Unknown Family History Family History data not found Social History Social History Element Codes Description Effective Dates Tobacco history SNOMED CT: 508702913 Never smoker 01/30/[address]: 973080046 Never drinks alcohol 2017 Allergies, Adverse Reactions, [...] ICD-9: 401.9 ICD-10: I10 01/30/2018 Active senior care (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 ICD-9: V58.6 1 [...] ER 10 mEq capsule,extended release RxNorm : 404452 1 Capsule(s) Oral two times a day on and 1 capsule 09/26/2019 09/26/2019 Inactive warfarin 5 mg tablet RxNorm: 920739 1 Tablet(s) Oral and 1/2 tablet (2.5mg) , , Sun & Sun08/26/2019 No Stop Date Active Colace 100 mg capsule RxNorm: 3592314 1 Capsule(s) Oral QD 08/26/1911/24/2019 Active vancomycin 125 mg capsule RxNorm: 362860 2 Capsule(s) Oral Q8H 08/0909/05/2019 Inactive levothyroxine 25 mcg tablet RxNorm: 975563 1 Tablet(s) PO QD 201910/11/2019 Active spironolactone 25 mg tablet RxNorm: 610203 TAKE 1 TABLET BY DOUGLAS TH TWICE DAILY 06/22/2019 09/19/2019 Inactive losartan 25 mg tablet RxNorm: 089820 TAKE 1 TABLET BY M OUTH ONCE DAILY IN THE MORNING 05/26/2019 No Stop Date Active bumetanide 1 mg tablet RxNorm: 946912 TAKE 1 TABLET BY MOUTH TWICE DAILY AT 6AM AND 6PM 05/23/2019 No Stop Date Active vancomycin 125 mg capsule RxNorm: 713310 1 Capsule(s) Oral Q3D 04/1008/25/2019 Inactive pantoprazole 40 mg tablet,delayed release RxNorm: 582224 1-2 Ta blet(s) Oral QD 04/23/2019 05/23/2019 Inactive potassium chloride ER 10 mEq capsule,extended release RxNorm : 850293 1 Capsule(s) Oral QD 04/23/2019 09/25/2019 Inactive warfarin 5 mg tablet RxNorm: 153098 Tablet(s) Oral Take 1 tablet (5mg) by mouth on and Sun then 1/2 tablet (2.5mg) on Sun, Sun, Thurs, Sat and Sun 04/23/2019 08/25/2019 Inactive temazepam 15 mg capsule RxNorm: 368353 TAKE 1 TO 2 CAPS ULES BY MOUTH AT BEDTIME NEEDED FOR SLEEP 04/08/2019 09/25/2019 Inactive Cipro 250 mg tablet RxNorm: 364903 1 Tablet(s) Oral two times a day 03/27/2019 04/03/2019 Inactive metronidazole 500 mg tablet RxNorm: 488921 1 Tablet(s) Oral thr ee times a day 03/27/2019 04/03/2019 Inactive bumetanide 1 mg tablet RxNorm: 540240 1 Tablet(s) PO BID (6am a nd 6pm) 02/13/2019 05/13/2019 Inactive levothyroxine 25 mcg tablet RxNorm: 229753 1 Tablet(s) PO QD 201807/13/2019 Inactive warfarin 5 mg tablet RxNorm: 583150 1 TABLET(S) PO TU , WED, THURS, SAT AND SUN AND 1/2 TABLET ON 02/04/2019 02/11/2019 Inactive Kendra ent requests 90 days supply warfarin 5 mg tablet RxNorm: 417335 1 TABLET(S) PO TUES , WED, THURS, SAT AND SUN AND 1/2 TABLET ON 02/03/2019 02/03/2019 Inactive Kendra ent requests 90 days supply levothyroxine 25 mcg tablet RxNorm: 665486 1 Tablet(s) PO QD 201802/03/2019 Inactive warfarin 5 mg tablet RxNorm: 861126 1 Tablet(s) PO Tues , Wed, Thurs, Sat and Sun and 1/2 tablet on 01/31/2019 02/02/2019 Inactive temazepam 15 mg capsule RxNorm: 135693 TAKE 1 TO 2 CAPS ULES BY MOUTH AT BEDTIME NEEDED FOR SLEEP 01/31/2019 04/07/2019 Inactive cyclobenzaprine 10 mg tablet RxNorm: 451320 1 Tablet(s) PO Q8H as needed 12/30/2018 09/25/2019 Inactive losartan 25 mg tablet RxNorm: 239923 1 Tablet(s) PO QAM 12/27/2018 Inactive Lidoderm 5 % topical patch RxNorm: 9689286 1 Application TOP Q12H and then off for 12 hours 12/25/2018 01/23/2019 Inactive Lidoderm 5 % topical patch RxNorm: 7618688 1 Application TOP Q12H and then off for 12 hours 12/25/2018 12/24/2018 Inactive cyclobenzaprine 5 mg tablet RxNorm: 459920 1 Tablet(s) PO Q8H a s needed 12/12/2018 12/24/2018 Inactive spironolactone 25 mg tablet RxNorm: 615235 1 Tablet(s) PO BID 09/2006/16/2019 Inactive change in directions to BID pantoprazole 40 mg tablet,delayed release RxNorm: 325319 1 Tabl et(s) PO QD 09/20/2018 04/22/2019 Inactive Patient requests 9 0 days supply spironolactone 25 mg tablet RxNorm: 951361 1 Tablet(s) PO BID 08/2609/19/2018 Inactive change in directions to BID pantoprazole 40 mg tablet,delayed release RxNorm: 989651 1 Tabl et(s) PO QD 08/15/2018 09/19/2018 Inactive Patient requests 9 0 days supply carvedilol 6.25 mg tablet RxNorm: 361229 1 Tablet(s) PO BID 019 02/08/2019 Inactive pantoprazole 40 mg tablet,delayed release RxNorm: 553130 1 Tablet(s) PO QD 1 TABLET(S) PO BID 08/13/2018 08/15/2018 Inactive Patient reque sts 90 days supply bumetanide 1 mg tablet RxNorm: 788841 1 Tablet(s) PO BID (6am a nd 6pm) 08/13/2018 02/08/2019 Inactive bumetanide 0.5 mg tablet RxNorm: 162382 1 Tablet(s) PO QPM three days a week--Sunday, Sun, Sunday instead of 1mg dose in evening 08/13/201812/2018 Inactive levothyroxine 25 mcg tablet RxNorm: 126422 1 Tablet(s) PO QD 201801/30/2019 Inactive spironolactone 25 mg tablet RxNorm: 081803 1 Tablet(s) PO QD 201808/25/2018 Inactive losartan 25 mg tablet RxNorm: 007265 1 Tablet(s) PO QAM 08/13/2018 Inactive warfarin 5 mg tablet RxNorm: 525175 1 Tablet(s) PO QD 08/13/201808/09 Inactive pantoprazole 40 mg tablet,delayed release RxNorm: 091382 1 TABL ET(S) PO BID 08/02/2018 08/12/2018 Inactive Patient requests 9 0 days supply temazepam 15 mg capsule RxNorm: 448548 1-2 Capsule(s) P O QHS as needed for sleep 2018 01/31/2019 Inactive Restoril 15 mg capsule RxNorm: 312035 1-2 Capsule(s) PO QHS as needed for sleep 06/04/2018 08/12/2018 Inactive potassium chloride ER 10 mEq capsule,extended release RxNorm : 093056 2 CAPSULE(S) PO QD 05/07/2018 08/04/2018 Inactive Patient reque sts 90 days supply temazepam 22.5 mg capsule RxNorm: 437988 1 Capsule(s) P O QHS as needed for sleep 05/06/2018 08/12/2018 Inactive potassium chloride ER 10 mEq capsule,extended release RxNorm : 912859 2 Capsule(s) PO QD 05/06/2018 05/06/2018 Inactive ropinirole 1 mg tablet RxNorm: 186051 1 TABLET(S) PO QHS FOR RE STLESS LEGS 03/27/2018 04/25/2018 Inactive Patient requests 9 0 days supply ropinirole 1 mg tablet RxNorm: 411021 1 Tablet(s) PO QHS for re stless legs 03/26/2018 03/26/2018 Inactive cefdinir 300 mg capsule RxNorm: 386513 1 Capsule(s) PO BID 03/26/20 18 03/30/2018 Inactive temazepam 15 mg capsule RxNorm: 473397 1 Capsule(s) PO QHS as neede d 03/20/2018 03/25/2018 Inactive Lunesta 3 mg tablet RxNorm: 056279 1 Tablet(s) PO QHS as needed for sleep 03/04/2018 03/19/2018 Inactive amitriptyline 10 mg tablet RxNorm: 881966 1 Tablet(s) PO QHS fo r sleep 02/26/2018 03/03/2018 Inactive escitalopram 20 mg tablet RxNorm: 934076 1 Tablet(s) PO QHS 018 08/12/2018 Inactive pantoprazole 40 mg tablet,delayed release RxNorm: 525380 1 Tabl et(s) PO BID 02/26/2018 04/26/2018 Inactive Coumadin 2.5 mg tablet RxNorm: 111084 1 Tablet(s) PO MWF 02/18/2018 0 07/22/2018 Inactive amiodarone 200 mg tablet RxNorm: 136769 1 Tablet(s) PO QD No Start Da te Active colestipol 1 gram tablet RxNorm: 5145651 1 Tablet(s) PO BID No Start Date Active pantoprazole 40 mg tablet,delayed release RxNorm: 301680 1 Tabl et(s) PO QD No Start Date Active pantoprazole 40 mg tablet,delayed release RxNorm: 351113 1 Tabl et(s) PO QD No Start Date 02/25/2018 Inactive bumetanide 1 mg tablet RxNorm: 327243 1 Tablet(s) PO BID (6am a nd 6pm) No Start Date 08/12/2018 Inactive potassium chloride ER 10 mEq tablet,extended release RxNorm: 642605 1 Tablet(s) PO QD No Start Date 02/11/2019 Inactive levothyroxine 25 mcg tablet RxNorm: 237527 1 Tablet(s) PO QD No Sta rt Date 08/12/2018 Inactive spironolactone 25 mg tablet RxNorm: 942808 1 Tablet(s) PO QD No Sta rt Date 08/12/2018 Inactive warfarin 5 mg tablet RxNorm: 738621 1 Tablet(s) PO MWF No Start Date 08/12/2018 Inactive warfarin 5 mg tablet RxNorm: 383374 1 Tablet(s) PO , Sun, , Sat and Sun then 1/2 tablet (2.5mg) on Mon & Fri No Start Date 08/12/2018 Inactive losartan 25 mg tablet RxNorm: 812758 1 Tablet(s) PO QAM No Start Da te 08/12/2018 Inactive carvedilol 6.25 mg tablet RxNorm: 714104 1 Tablet(s) PO BID No Star t Date 08/12/2018 Inactive warfarin 2.5 mg tablet RxNorm: 258697 1 Tablet(s) PO , s, Sat and Sun No Start Date 08/12/2018 Inactive Coumadin 2.5 mg tablet RxNorm: 958836 Tablet(s) Sun and Sun PO No Start Date 02/17/2018 Inactive Children's Multivitamin with Iron tablet RxNorm: 1 Table t(s) PO QD No Start Date 04/22/2019 Inactive potassium chloride ER 20 mEq tablet,extended release(p art/cryst) RxNorm: 7637391 2 Tablet(s) PO QD No Start Date 05/05/2018 Inactive Coumadin 5 mg tablet RxNorm: 454745 Tablet(s) PO No Start Date 2017 Inactive mexiletine 200 mg capsule RxNorm: 2453188 1 Capsule(s) PO BID No St art Date 03/25/2018 Inactive ferrous sulfate 325 mg (65 mg iron) tablet RxNorm: 244676 1 Tab let(s) PO QD No Start Date 07/22/2018 Inactive cyclobenzaprine 10 mg tablet RxNorm: 440332 1 Tablet(s) PO Q8H as needed No Start Date 12/29/2018 Inactive potassium chloride ER 10 mEq capsule,extended release RxNorm : 214729 2 Capsule(s) PO QD No Start Date 12/11/2018 Inactive Coumadin 5 mg tablet RxNorm: 821777 1 Tablet(s) PO , , Sun and Sun No Start Date 07/22/2018 Inactive Restoril 15 mg capsule RxNorm: 713753 1-2 Capsule(s) PO QHS as needed for sleep No Start Date 05/05/2018 Inactive metoprolol succinate ER 25 mg tablet,extended release 24 hr RxNorm: 976100 1 Tablet(s) PO QD No Start Date 08/12/2018 Inactive Entresto 24 mg-26 mg tablet RxNorm: 0595317 1 Tablet(s) PO BID No S tart Date 08/12/2018 Inactive warfarin 5 mg tablet RxNorm: 151524 1 Tablet(s) PO , Sun, , Sat and Sun and 1/2 tablet on Sun/Sun No Start Date 01/30/2019 Inactive amiodarone 200 mg tablet RxNorm: 809299 2 Tablet(s) PO BID No Start Date 10/09/2018 Inactive furosemide 20 mg tablet RxNorm: 920635 1 Tablet(s) PO QD No Start D ate 08/12/2018 Inactive amiodarone 200 mg tablet RxNorm: 971762 1 Tablet(s) PO BID No Start Date 08/26/2018 Inactive atorvastatin 40 mg tablet RxNorm: 970450 1 Tablet(s) PO QD No Start Date 08/12/2018 Inactive warfarin 5 mg tablet RxNorm: 825541 1/2 Tablet(s) PO on Sun, Sun, Sun, Sun then 1 tablet on Sun, , Sat No Start Date 04/22/2019 Inactive Medication Administered No Medication Administered data Immunizations Vaccine Codes Date Status Pneumovax CVX: 33 05/14/2019 Hepatitis A CVX: 83 03/25/2019 Influenza CVX: 135 03/25/2019 Results Observation Observation Code Item Item Code Result Date S [facility] Location UA W/MICR 40633 UA Urine Appear Normal 02/06/2018 Unk nown UA W/MICR 46167 UA Protein 3+ 02/06/2018 Unknown UA W/MICR 10532 UA Hemoglobin Trace 02/06/2018 Unkno wn UA W/MICR 45645 UA Glucose Negative 02/06/2018 Unknown UA W/MICR 36675 UA Ketones Negative 02/06/2018 Unknown UA W/MICR 61310 UA pH 5.5 02/06/2018 Unknown UA W/MICR 49954 U Spec Mckenzie 1.025 02/06/2018 Unkn own UA W/MICR 78573 UA Bilirubin Negative 02/06/2018 Unknow n UA W/MICR 53724 UA Leuk Esteras Trace 02/06/2018 Unk nown UA W/MICR 59287 UA Nitrite NEG 02/06/2018 Unknown UA W/MICR 36796 UA WBC/hpf 11-25 02/06/2018 Unknown UA W/MICR 15988 UA RBC hpf 0-5 02/06/2018 Unknown UA W/MICR 70738 UA Hyaline Cast 16-25 02/06/2018 Unk nown UA W/MICR 59758 UA Squam Epi Few 02/06/2018 Unknow n Procedures Procedure Codes Date INITIAL PREVENTIVE EXAM CPT-4: G0402 09/25/2019 URINALYSIS NONAUTO W/O SCOPE CPT-4: 44800 03/18/2019 URINE CULTURE/ COLONY COUNT CPT-4: 26760 03/18/2019 URINALYSIS NONAUTO W/O SCOPE CPT-4: 44243 12/12/2018 URINE CULTURE/ COLONY COUNT CPT-4: 72378 03/26/2018 URINALYSIS NONAUTO W/O SCOPE CPT-4: 75923 03/15/2018 INITIAL PREVENTIVE EXAM CPT-4: G0402 02/26/2018 URINALYSIS NONAUTO W/O SCOPE CPT-4: 31655 02/06/2018 URINE CULTURE/ COLONY COUNT CPT-4: 03068 02/06/2018 UA W/MICR CPT-4: 79064 02/06/2018 CUR TOBACCO NON-USER CPT-4: G8457 01/30/2018 REPAIR BLADDER & VAGINA CPT-4: 80872 01/06/2017 REPAIR OF RECTOCELE CPT-4: 91204 01/06/2017 BREAST SURGERY PROCEDURE CPT-4: 88237 Unknown LAPARO CHOLECYSTECTOMY/EXPLR CPT-4: 18867 Unknown HYSTERECTOMY/REVISE VAGINA CPT-4: 06224 Unknown Vital Signs Date Vital 09/25/2019 Blood [...] 1: 106/58 Code: 8480-6 BMI: 26.3 Code: 70607-8 Heart Rate 1: 72 bpm Height: 4'10" Respiratory Rate: 20 bpm SpO2: 97% Tempera ture: 36.6 (C) / 97.8 (F) Weight: 128 lbs 07/10/2018 Blood Pressure 1: 122/70 Code: 8480-6 BMI: 28.6 Code: 86425-9 Heart Rate 1: 80 bpm Height: 4'10" Respiratory Rate: 20 bpm SpO2: 96% Tempera ture: 36.9 (C) / 98.4 (F) Weight: 139 lbs 05/06/2018 Blood Pressure 1: 112/54 Code: 8480-6 BMI: 27.5 Code: 26231-0 Heart Rate 1: 80 bpm Height: 4'10" [...] 1: 146/80 Code: 8480-6 BMI: 30.0 Code: 50825-6 Heart Rate 1: 76 bpm Height: 4'10" Respiratory Rate: 20 bpm SpO2: 97% Tempera ture: 36.7 (C) / 98.1 (F) Weight: 146 lbs 02/26/2018 Blood Pressure 1: 126/80 Code: 8480-6 BMI: 29.6 Code: 72861-5 Heart Rate 1: 80 bpm Height: 4'10" Respiratory Rate: 18 bpm SpO2: 96% Tempera ture: 37.0 (C) / 98.6 (F) Weight: 144 lbs 01/30/2018 Blood Pressure 1: 120/78 Code: 8480-6 BMI: 29.6 Code: 39737-4 Heart Rate 1: 84 bpm Height: 4'10" Respiratory Rate: 20 bpm SpO2: 97% Tempera ture: 36.0 (C) / 96.8 (F) Weight: 144 lbs Functional Status No Functional Status data Reason For Visit Reason For Visit Effective Dates Notes Annual Checkup 09/25/2019 pt labs are scanned into chart abdominal pain 08/26/2019 follow up 05/07/2019 [facility] 03[facility]27[facility]2019 left lower quadrant back [...] 07/10/2018 Hospital/ER fwup follow up 05/06/2018 Hospital [facility] abdominal pain 04/17/2018 follow up 03/26/2018 dizziness 03/15/2018 Patient had bladder biopsy on Sunday by Dr Noonan. states she has been holding her coumadin since Sunday insomnia 02/26/2018 blood in urine 02/06/2018 ~generic 01/30/2018 Establishing Care Encounters Encounter Performer Location Codes Date ([id number]) OFFICE/OUTPATIENT VISIT EST Diagnosis: Sigmoid diverticulitis[ICD10: K57.32] Jalyn DAILY [facility] CPT-4: 33567 08/26/2019 ([id number]) OFFICE/OUTPATIENT VISIT EST Diagnosis: Clostridium difficile colitis[ICD10: A04.72] Jalyn DAILY [facility] CPT-4: 56527 05/07/2019 ([id number]) OFFICE/OUTPATIENT VISIT EST Diagnosis: Clostridium difficile colitis[ICD10: A04.72] Diagnosis: Edema[ICD10: R60.9] Jalyn Leigh [facility] [employer] [facility] CPT-4: 28972 04/23/2019 ([id number]) OFFICE/OUTPATIENT VISIT EST Diagnosis: Constipation[ICD10: K59.00] Diagnosis: Left lower quadrant pain[ICD10: R10.32] Bhavna Brarosman DAILY [facility] CPT-4: 80996 03/27/2019 ([id number]) OFFICE/OUTPATIENT VISIT EST Diagnosis: Acute kidney failure, unspecified[ICD10: N17.9] Jalyn DAILY [facility] CPT-4: 26143 03/18/2019 ([id number]) OFFICE/OUTPATIENT VISIT EST Diagnosis: Essential (primary) hypertension[ICD10: I10] Diagnosis: Chronic atrial fibrillation[ICD10: I48.2] Diagnosis: Mixed hyperlipidemia[ICD10: E78.2] Diagnosis: Other fatigue[ICD10: R53.83] Diagnosis: Abdominal distension (gaseous)[ICD10: R14.0] Jalyn DAILY [facility] CPT-4: 78050 02/12/2019 ([id number]) OFFICE/OUTPATIENT VISIT EST Diagnosis: Low back pain[ICD10: M54.5] Bahvna DOUGHERTY S. Michelle RENDER [facility] CPT-4: 66087 12/25/2018 ([id number]) OFFICE/OUTPATIENT VISIT EST Diagnosis: Low back pain[ICD10: M54.5] Bhavna DOUGHERTY S. O RENDER [facility] CPT-4: 92726 12/12/2018 ([id number]) OFFICE/OUTPATIENT VISIT EST Diagnosis: Anemia, unspecified[ICD10: D64.9] Diagnosis: Chronic atrial fibrillation[ICD10: I48.2] Diagnosis: Other fatigue[ICD10: R53.83] Jalyn DAILY [facility] CPT-4: 50294 10/10/2018 ([id number]) OFFICE/OUTPATIENT VISIT EST Diagnosis: Acute on chronic combined systolic (congestive) and diastolic (congestive) heart failure[ICD10: I50.43] Diagnosis: Chronic atrial fibrillation[ICD10: I48.2] Jalyn DAILY [facility] CPT-4: 47077 08/27/2018 ([id number]) OFFICE/OUTPATIENT VISIT EST Diagnosis: Chronic atrial fibrillation[ICD10: I48.2] 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] Diagnosis: senior care (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[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] Jalyn DAILY [facility] CPT-4: 97132 08/13/2018 ([id number]) OFFICE/OUTPATIENT VISIT EST Diagnosis: Acute on chronic combined systolic (congestive) and diastolic (congestive) heart failure[ICD10: I50.43] Diagnosis: Essential (primary) hypertension[ICD10: I10] Diagnosis: Anemia, unspecified[ICD10: D64.9] Jalyn DAILY DO [facility] CPT-4: 89054 07/10/2018 ([id number]) OFFICE/OUTPATIENT VISIT EST Diagnosis: Chronic atrial fibrillation[ICD10: I48.2] Diagnosis: Acute on chronic combined systolic (congestive) and diastolic (congestive) heart failure[ICD10: I50.43] Diagnosis: Localized edema[ICD10: R60.0] Jalyn DAILY [facility] CPT-4: 29146 05/06/2018 ([id number]) OFFICE/OUTPATIENT VISIT EST Diagnosis: Generalized abdominal pain[ICD10: R10.84] Diagnosis: Pelvic and perineal pain[ICD10: R10.2] Diagnosis: Localized edema[ICD10: R60.0] Bhavna DAILY [facility] CPT-4: 23453 04/17/2018 ([id number]) OFFICE/OUTPATIENT VISIT EST Diagnosis: Urinary tract infection, site not specified[ICD10: N39.0] Diagnosis: Other insomnia[ICD10: G47.09] Diagnosis: Other fatigue[ICD10: R53.83] Diagnosis: Other forms of dyspnea[ICD10: R06.09] Diagnosis: Chronic atrial fibrillation[ICD10: I48.2] Diagnosis: Restless legs syndrome[ICD10: G25.81] Jalyn Bullnahidnéstor DAILY [facility] CPT-4: 03764 03/26/2018 ([id number]) OFFICE/OUTPATIENT VISIT EST Diagnosis: Altered mental status, unspecified[ICD10: R41.82] Diagnosis: senior care (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[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] Diagnosis: Hematuria, unspecified[ICD10: R31.9] Bhavna DAILY [facility] CPT-4: 88833 03/15/2018 ([id number]) NURSE/OUTPATIENT VISIT EST Diagnosis: Urinary tract infection, site not specified[ICD10: N39.0] Jalyn Abimbola DAILY [facility] CPT-4: 59617 02/06/2018 OFFICE/OUTPATIENT VISIT NEW Diagnosis: superintendent terminal (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[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] Diagnosis: Essential (primary) hypertension[ICD10: I10] Diagnosis: Mixed hyperlipidemia[ICD10: E78.2] Diagnosis: Other fatigue[ICD10: R53.83] Diagnosis: Cardiac arrhythmia, unspecified[ICD10: I49.9] Diagnosis: Generalized abdominal pain[ICD10: R10.84] Diagnosis: Urinary tract infection, site not specified[ICD10: N39.0] Diagnosis: Other insomnia[ICD10: G47.09] Bhavna DAILY [facility] CPT-4: 59565 01/30/2018 Plan of Care Planned Activity Notes Codes Status Date Visit Diagnosis Plan: Essential (primary) hypertension Discussion: Stable ICD-9 : 401.9 ICD-10 : I10 09/25/2019 Visit Diagnosis Plan: [facility]counter for [facility] adult medical examination with abnormal findings Discussion: [...] I50.43 09/25/2019 Appointment: Jalyn Daily WPtel: [phone] [facility] Annual Well Visit 09/25/2019 Care Plan: COMPREHEN METABOLIC [place] : 31792-9 Pending 09/22/2019 Care Plan: COMPLETE CBC W/AUTO DIFF WBC LOINC : 03799-3 Pending 09/22/2019 Appointment: Bhavna Escalante [address] pt[address] feeling better and still had [...] : K57.32 08/26/2019 Appointment: Jalyn Daily WPtel: [address] [place], [place] [address] ACUTE ILLNESS 08/26/2019 Appointment: Jalyn Daily WPtel: [address] [place], [place] [address] originally 4 mo follow up CANCELED 2018 Visit Diagnosis Plan: Clostridium difficile colitis Di scussion: Vancomycin daily for another week then 125mg every 3 days for 1 month then stop Fwup in September ICD-9 : 008.45 ICD-10 : A04.72 05/07/2019 Appointment: Jalyn Daily WPtel: [address] [place], [place] [id number] FOLLOW UP 05/07/2019 Visit Diagnosis [...] ICD-10 : A04.72 04/23/2019 Appointment: Jalyn Dailytel: [address] [place], [place] [phone] Hospital Follow Up 04/23/2019 Appointment: Bhavna Escalante [address] [place], [place] [address]a [place] [address] [place] CANCELED 04/15/2019 Visit Diagnosis Plan: Left lower quadrant pain Discuss ion: will start with abdominal xray to rule out acute obstruction/constipation. if no acute findings, will treat as diverticulitis due to patient's past history. ICD-9 : 789.04 ICD-10 : R10.32 03/27/2019 Appointment: Bhavna Escalante [address] [place], [place] [address] ACUTE ILLNESS 03/27/2019 Visit Diagnosis Plan: Acute kidney failure, unspecifie d Discussion: Was given Meloxicam at urgent care--discussed no NSAIDs, hydrate, repeat Chem 7 in 1 week ICD-9 : 584.9 ICD-10 : N17.9 03/18/2019 Appointment: Jalyn Daily WPtel: [address] [place] [address] US ACUTE ILLNESS 03/18/2019 Visit Diagnosis Plan: Abdominal distension (gaseous) D iscussion: Trial of Zenpep q AC ICD-9 : 787.3 ICD-10 : R14.0 02/12/2019 Visit Diagnosis Plan: Essential (primary) hypertension Discussion: Stable ICD-9 : 401.9 ICD-10 : I10 02/12/2019 Visit Diagnosis Plan: Chronic atrial fibrillation Disc ussion: Following routinely with Cardiology ICD-9 : 427.31 ICD-10 : I48.2 02/12/2019 Appointment: Jalyn Daily WPtel: [address] [place] [address] US FOLLOW UP 02/12/2019 Appointment: Bhavna Escalante [address] [place] [address] [place] Canceled per guillermina. sending for mri [...] ICD-10 : M54.5 12/25/2018 Appointment: Bhavna Escalante [address] [place] [address] ACUTE ILLNESS 12/25/2018 Visit Diagnosis Plan: Low [...] ICD-10 : M54.5 12/12/2018 Appointment: Bhavna Escalante [address] [place], [place] [phone] ACUTE ILLNESS 12/12/2018 Patient Education: cyclobenzaprine- [employer] Coupon [id number] https://www.[employer]Star/sampleNo Surprises Software/resources/getResource/61/he8635l0-h427-8s8b-y2 Completed 12/12/2018 Appointment: Bhavna EscalanteRuben [address] [place], [place] [phone] CANCELED 12/06/2018 Visit Diagnosis Plan: Anemia, unspecified [...] R53.83 10/10/2018 Appointment: Jalyn Daily WPtel: [address] [place] [address] US FOLLOW UP 10/10/2018 Visit Diagnosis Plan: [...] : I50.43 08/27/2018 Appointment: Jalyn Daily WPtel: [facility] [place] [address] US FOLLOW UP 08/27/2018 Visit Diagnosis Plan: [...] ICD-10 : I48.2 08/13/2018 Visit Diagnosis Plan: senior care (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 Discussion: Increase Coumadin to 5mg po daily and repeat PT/INR in 2 weeks ICD-9 : V58.61 ICD-10 : Z79.01 08/13/2018 Appointment: [phone] [id number] [facility] 08/13/2018 Patient Education: bumetanide- [employer] Coupon [phone] https://www.[employer]/Inform[employer]/resources/getResource/61/2gf56x14-5nj3-7v57-xj Completed 08/13/2018 Patient Education: levothyroxine- [employer] Coupon [phone] https://www.[employer]/resources/getResource/61/1806957k-2788-0l68-bb Completed 08/13/2018 Patient Education: warfarin- [employer] Coupon [id number] https://www.[employer]/resources/getResource/61/34132077-jf11-51l8-6e Completed 08/13/2018 Patient Education: pantoprazole- [employer] Coupon [phone] https://www.[employer]/resources/getResource/61/t9451d31-11t1-15li-1i Completed 08/13/2018 Patient Education: spironolactone- [employer] Coupon [phone] https://www.[employer]/resources/getResource/61/5fb753s3-r375-4683-cm Completed 08/13/2018 Visit Diagnosis Plan: Anemia, unspecified [...] I50.43 07/10/2018 Appointment: Jalyn Daily WPtel: [address] [place] [address] FOLLOW UP 07/10/2018 Visit Diagnosis Plan: Acute [...] I48.2 05/06/2018 Appointment: Jalyn Daily WPtel: [address] [place] [address] US FOLLOW UP 05/06/2018 Visit Diagnosis Plan: [...] ICD-10 : R10.2 04/17/2018 Appointment: Bhavna Escalante [address] [place] [address] ACUTE ILLNESS 04/17/2018 Patient Education: Patient Medication Summary Completed 04/17/2018 Care Plan: CT ABDOMEN W/O & W/DYE LOINC : 70825-3 Pending 04/17/2018 Care Plan: CT PELVIS W/O & W/DYE LOINC : 82864-0 Pending 04/17/2018 Appointment: Jalyn Daily WPtel: [facility] [id number] [place] [facility]ED 04/10/2018 Visit Diagnosis Plan: [...] : R06.09 03/26/2018 Appointment: Jalyn Daily [facility]Ptel[id number] [facility] 03/26/2018 Patient Education: [...] ICD-10 : R41.82 03/15/2018 Appointment: Bhavna Escalante [address] [place] [address] ACUTE ILLNESS 03/15/2018 Patient Education: Patient Medication Summary Completed 03/15/2018 Visit Diagnosis Plan: Primary insomnia Discussion: Tri al of elavil 10mg po q HS ICD-9 : 780.52 ICD-10 : F51.01 02/26/2018 Visit Diagnosis Plan: Functional dyspepsia Discussion: Increase protonix to 40mg po BID Follow Up: 1 months ICD-9 : 536.8 ICD-10 : K30 02/26/2018 Appointment: Jalyn Daily WPtel: [address] [place] [address] WELCOME TO MEDICARE 02/26/2018 Patient Education: Patient Medication Summary Completed 02/26/2018 Referral: oSng Noonan WPtel: [address] [place], [place] [address] US Referral Initiated 02/19/2018 Appointment: Jalyn Daily WPtel: [address] [place], [place] [id number] US LAB 02/06/2018 Patient Education: Patient Medication Summary Completed 02/06/2018 Appointment: Jalyn Daily WPtel: [address] [place], [place] [id number] US CANCELED 02/01/2018 Care Plan: US EXAM ABDOM COMPLETE liver LOINC : [id number] Pending 01/31/2018 Visit Diagnosis Plan: Other fatigue Discussion: will o rder fasting blood work to assess for any anemia or infection especially due to recent surgery and bleeding risks. ICD-9 : 780.79 ICD-10 : R53.83 01/30/2018 Visit Diagnosis Plan: senior care (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 Discussion: [...] ICD-10 : I10 01/30/2018 Appointment: Bhavna Escalante [address] [place] [address] NEW PATIENT 01/30/2018 Patient Education: Patient Medication Summary Completed 01/30/2018 Instructions No Instructions Medical Equipment No Medical Equipment data Health Concerns Section Health Concerns data not found Goals Section Goals data not found Interventions Section Interventions data not found Health Status Evaluations/Outcomes Section Health Status Evaluations/Outcomes data not found Advance Directives No Advance Directive data
--- OUTSIDE RECORDS SUMMARY | 2020-02-10 14:08 | XMS REPORT | CCD ---
Author Author Riana Escalante Organization [facility] Address [address] [place] [address] Phone Unavailable Care Team Providers Care Emergency Medical Technician Basic Name Role Phone PP Unavailable CCM Unavailable Summary Purpose Interface Exchange Insurance Providers Payer name Policy type / Coverage type Covered alliance party ID Effective Begin Date Effective End Date WPS MEDICARE PART B [place] Medicare Part B [id number] 2017 Unknown Cigna Medicare Part B [id number] 2017 Unknown Family History Family History data not found Social History Social History Element Codes Description Effective Dates Tobacco history SNOMED CT: 900757317 Never smoker 01/30/[address]: 875156202 Never drinks alcohol 2017 Allergies, Adverse Reactions, [...] Fill Instructions warfarin 5 mg tablet RxNorm: 790615 1 Tablet(s) Oral MW F and 1/2 tablet (2.5mg) Salma Miranda Sat & Brianne 08/26/2019 No Stop Date Active Colace 100 mg capsule RxNorm: 5355566 1 Capsule(s) Oral QD 08/26/19 20 11/24/2019 Active vancomycin 125 mg capsule RxNorm: 853902 2 Capsule(s) Oral Q8H 08/0909/05/2019 Inactive levothyroxine 25 mcg tablet RxNorm: 940143 1 Tablet(s) PO QD 201910/11/2019 Active spironolactone 25 mg tablet RxNorm: 514327 TAKE 1 TABLET BY DOUGLAS TH TWICE DAILY 06/22/2019 09/19/2019 Inactive losartan 25 mg tablet RxNorm: 011379 TAKE 1 TABLET BY M OUTH ONCE DAILY IN THE MORNING 05/26/2019 No Stop Date Active bumetanide 1 mg tablet RxNorm: 399233 TAKE 1 TABLET BY MOUTH TWICE DAILY AT 6AM AND 6PM 05/23/2019 No Stop Date Active vancomycin 125 mg capsule RxNorm: 772669 1 Capsule(s) Oral Q3D 04/1008/25/2019 Inactive potassium chloride ER 10 mEq capsule,extended release RxNorm : 878641 1 Capsule(s) Oral QD 04/23/2019 No Stop Date Active pantoprazole 40 mg tablet,delayed release RxNorm: 195998 1-2 Ta blet(s) Oral QD 04/23/2019 05/23/2019 Inactive warfarin 5 mg tablet RxNorm: 594469 Tablet(s) Oral Take 1 tablet (5mg) by mouth on and Sun then 1/2 tablet (2.5mg) on Sun, Sun, Thurs, Sat and Sun 04/23/2019 08/25/2019 Inactive temazepam 15 mg capsule RxNorm: 659880 TAKE 1 TO 2 CAPS ULES BY MOUTH AT BEDTIME NEEDED FOR SLEEP 04/08/2019 09/25/2019 Inactive Cipro 250 mg tablet RxNorm: 632342 1 Tablet(s) Oral two times a day 03/27/2019 04/03/2019 Inactive metronidazole 500 mg tablet RxNorm: 850764 1 Tablet(s) Oral thr ee times a day 03/27/2019 04/03/2019 Inactive bumetanide 1 mg tablet RxNorm: 971816 1 Tablet(s) PO BID (6am a nd 6pm) 02/13/2019 05/13/2019 Inactive levothyroxine 25 mcg tablet RxNorm: 318259 1 Tablet(s) PO QD 201807/13/2019 Inactive warfarin 5 mg tablet RxNorm: 960014 1 TABLET(S) PO TU , WED, THURS, SAT AND SUN AND 1/2 TABLET ON 02/04/2019 02/11/2019 Inactive Kendra ent requests 90 days supply warfarin 5 mg tablet RxNorm: 626534 1 TABLET(S) PO TUES , WED, THURS, SAT AND SUN AND 1/2 TABLET ON 02/03/2019 02/03/2019 Inactive Kendra ent requests 90 days supply levothyroxine 25 mcg tablet RxNorm: 849714 1 Tablet(s) PO QD 201802/03/2019 Inactive warfarin 5 mg tablet RxNorm: 371518 1 Tablet(s) PO Tu , Wed, Thurs, Sat and Sun and 1/2 tablet on 01/31/2019 02/02/2019 Inactive temazepam 15 mg capsule RxNorm: 646310 TAKE 1 TO 2 CAPS ULES BY MOUTH AT BEDTIME NEEDED FOR SLEEP 01/31/2019 04/07/2019 Inactive cyclobenzaprine 10 mg tablet RxNorm: 614463 1 Tablet(s) PO Q8H as needed 12/30/2018 09/25/2019 Inactive losartan 25 mg tablet RxNorm: 518123 1 Tablet(s) PO QAM 12/27/2018 Inactive Lidoderm 5 % topical patch RxNorm: 8369485 1 Application TOP Q12H and then off for 12 hours 12/25/2018 01/23/2019 Inactive Lidoderm 5 % topical patch RxNorm: 9594734 1 Application TOP Q12H and then off for 12 hours 12/25/2018 12/24/2018 Inactive cyclobenzaprine 5 mg tablet RxNorm: 976077 1 Tablet(s) PO Q8H a s needed 12/12/2018 12/24/2018 Inactive spironolactone 25 mg tablet RxNorm: 589647 1 Tablet(s) PO BID 09/2006/16/2019 Inactive change in directions to BID pantoprazole 40 mg tablet,delayed release RxNorm: 819709 1 Tabl et(s) PO QD 09/20/2018 04/22/2019 Inactive Patient requests 9 0 days supply spironolactone 25 mg tablet RxNorm: 832375 1 Tablet(s) PO BID 08/2609/19/2018 Inactive change in directions to BID pantoprazole 40 mg tablet,delayed release RxNorm: 479355 1 Tabl et(s) PO QD 08/15/2018 09/19/2018 Inactive Patient requests 9 0 days supply carvedilol 6.25 mg tablet RxNorm: 566700 1 Tablet(s) PO BID 019 02/08/2019 Inactive pantoprazole 40 mg tablet,delayed release RxNorm: 956940 1 Tablet(s) PO QD 1 TABLET(S) PO BID 08/13/2018 08/15/2018 Inactive Patient reque sts 90 days supply bumetanide 1 mg tablet RxNorm: 904625 1 Tablet(s) PO BID (6am a nd 6pm) 08/13/2018 02/08/2019 Inactive bumetanide 0.5 mg tablet RxNorm: 961766 1 Tablet(s) PO QPM three days a week--Sunday, Sun, Sunday instead of 1mg dose in evening 08/13/201812/2018 Inactive levothyroxine 25 mcg tablet RxNorm: 928132 1 Tablet(s) PO QD 201801/30/2019 Inactive spironolactone 25 mg tablet RxNorm: 458211 1 Tablet(s) PO QD 201808/25/2018 Inactive losartan 25 mg tablet RxNorm: 884730 1 Tablet(s) PO QAM 08/13/2018 Inactive warfarin 5 mg tablet RxNorm: 137856 1 Tablet(s) PO QD 08/13/201808/09 Inactive pantoprazole 40 mg tablet,delayed release RxNorm: 442744 1 TABL ET(S) PO BID 08/02/2018 08/12/2018 Inactive Patient requests 9 0 days supply temazepam 15 mg capsule RxNorm: 091777 1-2 Capsule(s) P O QHS as needed for sleep 2018 01/31/2019 Inactive Restoril 15 mg capsule RxNorm: 563214 1-2 Capsule(s) PO QHS as needed for sleep 06/04/2018 08/12/2018 Inactive potassium chloride ER 10 mEq capsule,extended release RxNorm : 069165 2 CAPSULE(S) PO QD 05/07/2018 08/04/2018 Inactive Patient reque sts 90 days supply temazepam 22.5 mg capsule RxNorm: 689453 1 Capsule(s) P O QHS as needed for sleep 05/06/2018 08/12/2018 Inactive potassium chloride ER 10 mEq capsule,extended release RxNorm : 582759 2 Capsule(s) PO QD 05/06/2018 05/06/2018 Inactive ropinirole 1 mg tablet RxNorm: 866108 1 TABLET(S) PO QHS FOR RE STLESS LEGS 03/27/2018 04/25/2018 Inactive Patient requests 9 0 days supply ropinirole 1 mg tablet RxNorm: 884105 1 Tablet(s) PO QHS for re stless legs 03/26/2018 03/26/2018 Inactive cefdinir 300 mg capsule RxNorm: 710604 1 Capsule(s) PO BID 03/26/20 18 03/30/2018 Inactive temazepam 15 mg capsule RxNorm: 591239 1 Capsule(s) PO QHS as neede d 03/20/2018 03/25/2018 Inactive Lunesta 3 mg tablet RxNorm: 405577 1 Tablet(s) PO QHS as needed for sleep 03/04/2018 03/19/2018 Inactive amitriptyline 10 mg tablet RxNorm: 671467 1 Tablet(s) PO QHS fo r sleep 02/26/2018 03/03/2018 Inactive escitalopram 20 mg tablet RxNorm: 943006 1 Tablet(s) PO QHS 018 08/12/2018 Inactive pantoprazole 40 mg tablet,delayed release RxNorm: 629952 1 Tabl et(s) PO BID 02/26/2018 04/26/2018 Inactive Coumadin 2.5 mg tablet RxNorm: 791237 1 Tablet(s) PO MWF 02/18/2018 0 07/22/2018 Inactive amiodarone 200 mg tablet RxNorm: 216952 1 Tablet(s) PO QD No Start Da te Active colestipol 1 gram tablet RxNorm: 0786645 1 Tablet(s) PO BID No Start Date Active pantoprazole 40 mg tablet,delayed release RxNorm: 227897 1 Tabl et(s) PO QD No Start Date Active pantoprazole 40 mg tablet,delayed release RxNorm: 639995 1 Tabl et(s) PO QD No Start Date 02/25/2018 Inactive bumetanide 1 mg tablet RxNorm: 328249 1 Tablet(s) PO BID (6am a nd 6pm) No Start Date 08/12/2018 Inactive potassium chloride ER 10 mEq tablet,extended release RxNorm: 629245 1 Tablet(s) PO QD No Start Date 02/11/2019 Inactive levothyroxine 25 mcg tablet RxNorm: 266446 1 Tablet(s) PO QD No Sta rt Date 08/12/2018 Inactive spironolactone 25 mg tablet RxNorm: 317134 1 Tablet(s) PO QD No Sta rt Date 08/12/2018 Inactive warfarin 5 mg tablet RxNorm: 052643 1 Tablet(s) PO MWF No Start Date 08/12/2018 Inactive warfarin 5 mg tablet RxNorm: 687544 1 Tablet(s) PO Tues , Wed, Thurs, Sat and Sun then 1/2 tablet (2.5mg) on Mon & Fri No Start Date 08/12/2018 Inactive losartan 25 mg tablet RxNorm: 283477 1 Tablet(s) PO QAM No Start Da te 08/12/2018 Inactive carvedilol 6.25 mg tablet RxNorm: 177057 1 Tablet(s) PO BID No Star t Date 08/12/2018 Inactive warfarin 2.5 mg tablet RxNorm: 139534 1 Tablet(s) PO , Thur s, Sat and Sun No Start Date 08/12/2018 Inactive Coumadin 2.5 mg tablet RxNorm: 457215 Tablet(s) Mon Sun and Sun PO No Start Date 02/17/2018 Inactive Children's Multivitamin with Iron tablet RxNorm: 1 Table t(s) PO QD No Start Date 04/22/2019 Inactive potassium chloride ER 20 mEq tablet,extended release(p art/cryst) RxNorm: 0821697 2 Tablet(s) PO QD No Start Date 05/05/2018 Inactive Coumadin 5 mg tablet RxNorm: 477318 Tablet(s) PO No Start Date 2017 Inactive mexiletine 200 mg capsule RxNorm: 7100166 1 Capsule(s) PO BID No St art Date 03/25/2018 Inactive ferrous sulfate 325 mg (65 mg iron) tablet RxNorm: 873547 1 Tab let(s) PO QD No Start Date 07/22/2018 Inactive cyclobenzaprine 10 mg tablet RxNorm: 693364 1 Tablet(s) PO Q8H as needed No Start Date 12/29/2018 Inactive potassium chloride ER 10 mEq capsule,extended release RxNorm : 940506 2 Capsule(s) PO QD No Start Date 12/11/2018 Inactive Coumadin 5 mg tablet RxNorm: 034717 1 Tablet(s) PO , , Sat and Sun No Start Date 07/22/2018 Inactive Restoril 15 mg capsule RxNorm: 970821 1-2 Capsule(s) PO QHS as needed for sleep No Start Date 05/05/2018 Inactive metoprolol succinate ER 25 mg tablet,extended release 24 hr RxNorm: 210443 1 Tablet(s) PO QD No Start Date 08/12/2018 Inactive Entresto 24 mg-26 mg tablet RxNorm: 9624691 1 Tablet(s) PO BID No S tart Date 08/12/2018 Inactive warfarin 5 mg tablet RxNorm: 609108 1 Tablet(s) PO , Sun, , Sat and Sun and 1/2 tablet on Mon/Fri No Start Date 01/30/2019 Inactive amiodarone 200 mg tablet RxNorm: 982349 2 Tablet(s) PO BID No Start Date 10/09/2018 Inactive furosemide 20 mg tablet RxNorm: 823348 1 Tablet(s) PO QD No Start D ate 08/12/2018 Inactive amiodarone 200 mg tablet RxNorm: 804367 1 Tablet(s) PO BID No Start Date 08/26/2018 Inactive atorvastatin 40 mg tablet RxNorm: 374091 1 Tablet(s) PO QD No Start Date 08/12/2018 Inactive warfarin 5 mg tablet RxNorm: 362562 1/2 Tablet(s) PO on Sun, Sun, Sun, Sun then 1 tablet on Sun, , Sun No Start Date 04/22/2019 Inactive Medication Administered No Medication Administered data Immunizations Vaccine Codes Date Status Pneumovax CVX: 33 05/14/2019 Hepatitis A CVX: 83 03/25/2019 Influenza CVX: 135 03/25/2019 Results Observation Observation Code Item Item Code Result Date S ervice Location UA W/MICR 80417 UA Urine Appear Normal 02/06/2018 Unk nown UA W/MICR 88510 UA Protein 3+ 02/06/2018 Unknown UA W/MICR 67795 UA Hemoglobin Trace 02/06/2018 Unkno wn UA W/MICR 25202 UA Glucose Negative 02/06/2018 Unknown UA W/MICR 82092 UA Ketones Negative 02/06/2018 Unknown UA W/MICR 95319 UA pH 5.5 02/06/2018 Unknown UA W/MICR 29940 U Spec [place] 1.025 02/06/2018 Unkn own UA W/MICR 54872 UA Bilirubin Negative 02/06/2018 Unknow n UA W/MICR 63601 UA Leuk Esteras Trace 02/06/2018 Unk nown UA W/MICR 00305 UA Nitrite NEG 02/06/2018 Unknown UA W/MICR 83462 UA WBC/hpf 11-25 02/06/2018 Unknown UA W/MICR 09729 UA Hyaline Cast 16-25 02/06/2018 Unk nown UA W/MICR 46441 UA RBC hpf 0-5 02/06/2018 Unknown UA W/MICR 02708 UA Squam Epi Few 02/06/2018 Unknow n Procedures Procedure Codes Date INITIAL PREVENTIVE EXAM CPT-4: G0402 09/25/2019 URINALYSIS NONAUTO W/O SCOPE CPT-4: 47482 03/18/2019 URINE CULTURE/ COLONY COUNT CPT-4: 23902 03/18/2019 URINALYSIS NONAUTO W/O SCOPE CPT-4: 13381 12/12/2018 URINE CULTURE/ COLONY COUNT CPT-4: 03169 03/26/2018 URINALYSIS NONAUTO W/O SCOPE CPT-4: 60418 03/15/2018 INITIAL PREVENTIVE EXAM CPT-4: G0402 02/26/2018 URINALYSIS NONAUTO W/O SCOPE CPT-4: 25804 02/06/2018 URINE CULTURE/ COLONY COUNT CPT-4: 96943 02/06/2018 UA W/MICR CPT-4: 44761 02/06/2018 CUR TOBACCO NON-USER CPT-4: G8457 01/30/2018 REPAIR BLADDER & VAGINA CPT-4: 03160 01/06/2017 REPAIR OF RECTOCELE CPT-4: 36428 01/06/2017 BREAST SURGERY PROCEDURE CPT-4: 30057 Unknown LAPARO CHOLECYSTECTOMY/EXPLR CPT-4: 81766 Unknown HYSTERECTOMY/REVISE VAGINA CPT-4: 68434 Unknown Vital Signs Date Vital 09/25/2019 Blood [...] 1: 106/58 Code: 8480-6 BMI: 26.3 Code: 36599-0 Heart Rate 1: 72 bpm Height: 4'10" Respiratory Rate: 20 bpm SpO2: 97% Tempera ture: 36.6 (C) / 97.8 (F) Weight: 128 lbs 07/10/2018 Blood Pressure 1: 122/70 Code: 8480-6 BMI: 28.6 Code: 27532-9 Heart Rate 1: 80 bpm Height: 4'10" Respiratory Rate: 20 bpm SpO2: 96% Tempera ture: 36.9 (C) / 98.4 (F) Weight: 139 lbs 05/06/2018 Blood Pressure 1: 112/54 Code: 8480-6 BMI: 27.5 Code: 77505-7 Heart Rate 1: 80 bpm Height: 4'10" [...] 1: 146/80 Code: 8480-6 BMI: 30.0 Code: 89632-1 Heart Rate 1: 76 bpm Height: 4'10" Respiratory Rate: 20 bpm SpO2: 97% Tempera ture: 36.7 (C) / 98.1 (F) Weight: 146 lbs 02/26/2018 Blood Pressure 1: 126/80 Code: 8480-6 BMI: 29.6 Code: 75738-9 Heart Rate 1: 80 bpm Height: 4'10" Respiratory Rate: 18 bpm SpO2: 96% Tempera ture: 37.0 (C) / 98.6 (F) Weight: 144 lbs 01/30/2018 Blood Pressure 1: 120/78 Code: 8480-6 BMI: 29.6 Code: 59613-2 Heart Rate 1: 84 bpm Height: 4'10" [...] Care Encounters Encounter Performer Location Codes Date ([id number]) OFFICE/OUTPATIENT VISIT EST Diagnosis: Sigmoid diverticulitis[ICD10: K57.32] Jalyn Bullmarques ARREDONDO JaniceRuben BULLAUGIE [facility] CPT-4: 87005 08/26/2019 ([id number]) OFFICE/OUTPATIENT VISIT EST Diagnosis: Clostridium difficile colitis[ICD10: A04.72] Jalyn Bullmarques VÁSQUEZJALYN JaniceRuben DAPHNE [facility] CPT-4: 15013 05/07/2019 ([id number]) OFFICE/OUTPATIENT VISIT EST Diagnosis: Clostridium difficile colitis[ICD10: A04.72] Diagnosis: Edema[ICD10: R60.9] Jalyn Bullmarques VÁSQUEZJALYN JaniceRuben DAPHNE [facility] CPT-4: 93997 04/23/2019 ([id number]) OFFICE/OUTPATIENT VISIT EST Diagnosis: Constipation[ICD10: K59.00] Diagnosis: Left lower quadrant pain[ICD10: R10.32] Bhavna Escalante THALIA MINGODIOR JaniceRuben BULLAUGIEANIBAL [facility] CPT-4: 12253 03/27/2019 ([id number]) OFFICE/OUTPATIENT VISIT EST Diagnosis: Acute kidney failure, unspecified[ICD10: N17.9] Jalyndior DOUGHERTY JaniceRuben BULLAUGIE [facility] CPT-4: 01585 03/18/2019 ([id number]) OFFICE/OUTPATIENT VISIT EST Diagnosis: Essential (primary) hypertension[ICD10: I10] Diagnosis: Chronic atrial fibrillation[ICD10: I48.2] Diagnosis: Mixed hyperlipidemia[ICD10: E78.2] Diagnosis: Other fatigue[ICD10: R53.83] Diagnosis: Abdominal distension (gaseous)[ICD10: R14.0] Jalyn DAILY DO [facility] CPT-4: 33160 02/12/2019 ([id number]) OFFICE/OUTPATIENT VISIT EST Diagnosis: Low back pain[ICD10: M54.5] Bhavna DOUGHERTY S. O RENDER [facility] CPT-4: 28529 12/25/2018 ([id number]) OFFICE/OUTPATIENT VISIT EST Diagnosis: Low back pain[ICD10: M54.5] Bhavna DOUGHERTY S. Michelle RENDER [facility] CPT-4: 65469 12/12/2018 ([id number]) OFFICE/OUTPATIENT VISIT EST Diagnosis: Anemia, unspecified[ICD10: D64.9] Diagnosis: Chronic atrial fibrillation[ICD10: I48.2] Diagnosis: Other fatigue[ICD10: R53.83] Jalyn DAILY DO [facility] CPT-4: 08770 10/10/2018 ([id number]) OFFICE/OUTPATIENT VISIT EST Diagnosis: Acute on chronic combined systolic (congestive) and diastolic (congestive) heart failure[ICD10: I50.43] Diagnosis: Chronic atrial fibrillation[ICD10: I48.2] Jalyn DAILY DO [facility] CPT-4: 30462 08/27/2018 ([id number]) OFFICE/OUTPATIENT VISIT EST Diagnosis: Chronic atrial fibrillation[ICD10: I48.2] 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] 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] Jalyn DAILY DO [facility] CPT-4: 00804 08/13/2018 ([id number]) OFFICE/OUTPATIENT VISIT EST Diagnosis: Acute on chronic combined systolic (congestive) and diastolic (congestive) heart failure[ICD10: I50.43] Diagnosis: Essential (primary) hypertension[ICD10: I10] Diagnosis: Anemia, unspecified[ICD10: D64.9] Jalyn GIBBONSLIN [facility] CPT-4: 58833 07/10/2018 ([id number]) OFFICE/OUTPATIENT VISIT EST Diagnosis: Chronic atrial fibrillation[ICD10: I48.2] Diagnosis: Acute on chronic combined systolic (congestive) and diastolic (congestive) heart failure[ICD10: I50.43] Diagnosis: Localized edema[ICD10: R60.0] Jalyn DAILY [facility] CPT-4: 07990 05/06/2018 ([id number]) OFFICE/OUTPATIENT VISIT EST Diagnosis: Generalized abdominal pain[ICD10: R10.84] Diagnosis: Pelvic and perineal pain[ICD10: R10.2] Diagnosis: Localized edema[ICD10: R60.0] Bhavna DAILY [facility] CPT-4: 39701 04/17/2018 ([id number]) OFFICE/OUTPATIENT VISIT EST Diagnosis: Urinary tract infection, site not specified[ICD10: N39.0] Diagnosis: Other insomnia[ICD10: G47.09] Diagnosis: Other fatigue[ICD10: R53.83] Diagnosis: Other forms of dyspnea[ICD10: R06.09] Diagnosis: Chronic atrial fibrillation[ICD10: I48.2] Diagnosis: Restless legs syndrome[ICD10: G25.81] Jalyn DAILY [facility] CPT-4: 15975 03/26/2018 ([id number]) OFFICE/OUTPATIENT VISIT EST Diagnosis: Altered mental status, unspecified[ICD10: R41.82] Diagnosis: skilled nursing (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[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] Diagnosis: Hematuria, unspecified[ICD10: R31.9] Bhavna DAILY [facility] CPT-4: 32378 03/15/2018 ([id number]) NURSE/OUTPATIENT VISIT EST Diagnosis: Urinary tract infection, site not specified[ICD10: N39.0] Jalyn DAILY [facility] CPT-4: 33336 02/06/2018 OFFICE/OUTPATIENT VISIT NEW Diagnosis: skilled nursing (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[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] Diagnosis: Essential (primary) hypertension[ICD10: I10] Diagnosis: Mixed hyperlipidemia[ICD10: E78.2] Diagnosis: Other fatigue[ICD10: R53.83] Diagnosis: Cardiac arrhythmia, unspecified[ICD10: I49.9] Diagnosis: Generalized abdominal pain[ICD10: R10.84] Diagnosis: Urinary tract infection, site not specified[ICD10: N39.0] Diagnosis: Other insomnia[ICD10: G47.09] Bhavna DAILY [facility] CPT-4: 28131 01/30/2018 Plan of Care Planned Activity Notes Codes Status Date Visit Diagnosis Plan: Essential (primary) hypertension Discussion: Stable ICD-9 : 401.9 ICD-10 : I10 09/25/2019 Visit Diagnosis Plan: Encounter for [facility] adult medical examination with abnormal [...] ICD-9 : 428.43 ICD-10 : I50.43 09/25/2019 Care Plan: COMPREHEN METABOLIC PANEL [place] NC : 86200-2 Pending 09/22/2019 Care Plan: COMPLETE CBC W/AUTO DIFF WBC LOINC : 98720-1 Pending 09/22/2019 Appointment: Bhavna Escalante [address] [facility] [place] pt. feeling better and still had [...] : K57.32 08/26/2019 Appointment: Jalyn Daily WPtel: [phone] [facility] ACUTE ILLNESS 08/26/2019 Appointment: Jalyn Daily WPtel: [address] [place], [place] [phone] originally 4 mo follow up CANCELED 2018 Visit Diagnosis Plan: Clostridium difficile colitis Di scussion: Vancomycin daily for another week then 125mg every 3 days for 1 month then stop Fwup in September ICD-9 : 008.45 ICD-10 : A04.72 05/07/2019 Appointment: Jalyn Daily WPtel: [address] [place], [place] [phone] FOLLOW UP 05/07/2019 Visit Diagnosis Plan: Edema [...] 008.45 ICD-10 : A04.72 04/23/2019 Appointment: Jalyn aDily WPtel: [address] [place], [place] [phone] Follow Up 04/23/2019 Appointment: Bhavna Escalante [address] [id number] CANCELED 04/15/2019 Visit Diagnosis Plan: Left lower quadrant pain Discuss ion: will start with abdominal xray to rule out acute obstruction/constipation. if no acute findings, will treat as diverticulitis due to patient's past history. ICD-9 : 789.04 ICD-10 : R10.32 03/27/2019 Appointment: Bhavna Escalante [address] [facility] ACUTE ILLNESS 03/27/2019 Visit Diagnosis Plan: Acute kidney failure, unspecifie d Discussion: Was given Meloxicam at urgent care--discussed no NSAIDs, hydrate, repeat Chem 7 in 1 week ICD-9 : 584.9 ICD-10 : N17.9 03/18/2019 Appointment: Jalyn Daily WPtel: [phone] [facility] [place] ACUTE ILLNESS 03/18/2019 Visit Diagnosis [...] I48.2 02/12/2019 Appointment: Jalyn Daily WPtel: [phone] [address] [place] FOLLOW UP 02/12/2019 Appointment: Bhavna Escalante [address] [place] [address] [place] Canceled per guillermina. sending for mri [...] : M54.5 12/25/2018 Appointment: Bhavna Escalante [address] [place] [address] ACUTE ILLNESS 12/25/2018 Visit Diagnosis Plan: Low [...] : M54.5 12/12/2018 Appointment: Bhavna Escalante [address] [address] ACUTE ILLNESS 12/12/2018 Patient Education: cyclobenzaprine- [employer] Coupon [id number] https://www.VisTracks.Reviewspotter/samplemd/resources/getResource/61/[email or web address]-[email or web address]-z4 Completed 12/12/2018 [facility] [facility] CANC[facility] 12/06/2018 Visit Diagnosis Plan: Anemia, unspecified Discussion: Update CBC ICD-9 : 285.9 ICD-10 : D64.9 10/10/2018 Visit Diagnosis Plan: Chronic atrial fibrillation Disc ussion: Cardiology monitoring PT/INR Follow Up: 4 months ICD-9 : 427.31 ICD-10 : I48.2 10/10/2018 Visit Diagnosis Plan: Other fatigue Discussion: Increa se activity--discussed 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 ICD-9 : 780.79 ICD-10 : R53.83 10/10/2018 Appointment: Jalyn Daily WPtel: [address] [place] [address] [place] FOLLOW UP 10/10/2018 Visit Diagnosis Plan: [...] : I50.43 08/27/2018 Appointment: Jalyn Daily WPtel: [address] [place], [place] [phone] [place] FOLLOW UP 08/27/2018 Visit Diagnosis Plan: [...] ICD-10 : I48.2 08/13/2018 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 Discussion: Increase Coumadin to 5mg po daily and repeat PT/INR in 2 weeks ICD-9 : V58.61 ICD-10 : Z79.01 08/13/2018 Appointment: Jalyn Daily WPtel: [phone] [id number] FOLLOW UP 08/13/2018 Patient Education: bumetanide- [employer] Coupon [id number] https://www.TopCoder/VisTracks/resources/getResource/61/6xh91p52-7rr0-2j07-py Completed 08/13/2018 Patient Education: levothyroxine- [employer] Coupon [phone] [id number] https://www.TopCoder/VisTracks/resources/getResource/61/3528784n-3232-5u01-cz Completed 08/13/2018 Patient Education: warfarin- [employer] Coupon [id number] https://www.TopCoder/VisTracks/resources/getResource/61/65002269-gq38-73u3-3c Completed 08/13/2018 Patient Education: pantoprazole- [employer] Coupon [phone] https://www.TopCoder/VisTracks/resources/getResource/61/v8703t06-11p2-66pu-2a Completed 08/13/2018 Patient Education: spironolactone- [employer] Coupon [phone] [id number] https://www.TopCoder/VisTracks/resources/getResource/61/5fb380l2-m932-1118-cj Completed 08/13/2018 Visit Diagnosis Plan: Anemia, unspecified [...] I50.43 07/10/2018 Appointment: Jalyn Daily WPtel: [address] [place], [place] [phone] [place] 2nd LM FOLLOW UP 07/10/2018 Visit Diagnosis [...] : I48.2 05/06/2018 Appointment: Jalyn Daily WPtel: [address] [place], [place] [phone] [place] FOLLOW UP 05/06/2018 Visit Diagnosis Plan: [...] : R10.2 04/17/2018 Appointment: Bhavna Escalante [address] [place], [place] [phone] ACUTE ILLNESS 04/17/2018 Patient Education: Patient Medication Summary Completed 04/17/2018 Care Plan: CT ABDOMEN W/O & W/DYE LOINC : 42282-9 Pending 04/17/2018 Care Plan: CT PELVIS W/O & W/DYE LOINC : 25297-2 Pending 04/17/2018 Appointment: Jalyn Daily WPtel: [address] [place], [place] [phone] [place] CANCELED 04/10/2018 Visit Diagnosis Plan: Chronic [...] R06.09 03/26/2018 Appointment: Jalyn Daily WPtel: [phone] [facility] [...] : R41.82 03/15/2018 Appointment: Bhavna Escalante [address] [place] [address] ACUTE ILLNESS 03/15/2018 Patient Education: Patient Medication Summary Completed 03/15/2018 Visit Diagnosis Plan: Primary insomnia Discussion: Tri al of elavil 10mg po q HS ICD-9 : 780.52 ICD-10 : F51.01 02/26/2018 Visit Diagnosis Plan: Functional dyspepsia Discussion: Increase protonix to 40mg po BID Follow Up: 1 months ICD-9 : 536.8 ICD-10 : K30 02/26/2018 Appointment: Jalyn Daily WPtel: [address] [place] [address] WELCOME TO MEDICARE 02/26/2018 Patient Education: Patient Medication Summary Completed 02/26/2018 Referral: Song Noonan WPtel: [address] [place] [address] [place] Referral Initiated 02/19/2018 Appointment: Jalyn Daily WPtel: [address] [place] [address] LAB 02/06/2018 Patient Education: Patient Medication Summary Completed 02/06/2018 Appointment: Jalyn Daily WPtel: [address] [place] [address] US CANCELED 02/01/2018 Care Plan: US EXAM ABDOM COMPLETE liver LOINC : 58871-4 Pending 01/31/2018 Visit Diagnosis Plan: Other fatigue [...] ICD-10 : I10 01/30/2018 Appointment: Bhavna Escalante [address] [place], [place] [id number] NEW PATIENT 01/30/2018 Patient Education: Patient Medication Summary Completed 01/30/2018 Instructions No Instructions Medical Equipment No Medical Equipment data Health Concerns Section Health Concerns data not found Goals Section Goals data not found Interventions Section Interventions data not found Health Status Evaluations/Outcomes Section Health Status Evaluations/Outcomes data not found Advance Directives No Advance Directive data
--- OUTSIDE RECORDS SUMMARY | 2020-02-10 14:08 | XMS REPORT | CCD ---
Author Author Riana Escalante Organization [facility]YN S. DAPHNE VANES[facility] Address [address] [place] [address] Phone Unavailable Care Team Providers Care Undercover Agent Name Role Phone PP Unavailable CCM Unavailable Summary Purpose Interface Exchange Insurance Providers Payer name Policy type / Coverage type Covered constitution party ID Effective Begin Date Effective End Date WPS MEDICARE PART B [place] Medicare Part B [id number] 2017 Unknown Cigna Medicare Part B [id number] 2017 Unknown Family History Family History data not found Social History Social History Element Codes Description Effective Dates Tobacco history SNOMED CT: 977156702 Never smoker 01/30/[address]: 754796930 Never drinks alcohol 2017 Allergies, Adverse Reactions, [...] Fill Instructions warfarin 5 mg tablet RxNorm: 525487 1 Tablet(s) Oral MW F and 1/2 tablet (2.5mg) Salma Miranda Sat & Brianne 08/26/2019 No Stop Date Active Colace 100 mg capsule RxNorm: 2689268 1 Capsule(s) Oral QD 08/26/19 20 11/24/2019 Active vancomycin 125 mg capsule RxNorm: 702761 2 Capsule(s) Oral Q8H 08/0909/05/2019 Inactive levothyroxine 25 mcg tablet RxNorm: 277043 1 Tablet(s) PO QD 201910/11/2019 Active spironolactone 25 mg tablet RxNorm: 911647 TAKE 1 TABLET BY DOUGLAS TH TWICE DAILY 06/22/2019 09/19/2019 Inactive losartan 25 mg tablet RxNorm: 781552 TAKE 1 TABLET BY M OUTH ONCE DAILY IN THE MORNING 05/26/2019 No Stop Date Active bumetanide 1 mg tablet RxNorm: 273257 TAKE 1 TABLET BY MOUTH TWICE DAILY AT 6AM AND 6PM 05/23/2019 No Stop Date Active vancomycin 125 mg capsule RxNorm: 559817 1 Capsule(s) Oral Q3D 04/1008/25/2019 Inactive potassium chloride ER 10 mEq capsule,extended release RxNorm : 464462 1 Capsule(s) Oral QD 04/23/2019 No Stop Date Active pantoprazole 40 mg tablet,delayed release RxNorm: 643648 1-2 Ta blet(s) Oral QD 04/23/2019 05/23/2019 Inactive warfarin 5 mg tablet RxNorm: 741493 Tablet(s) Oral Take 1 tablet (5mg) by mouth on and Sun then 1/2 tablet (2.5mg) on Sun, Sun, Thurs, Sat and Sun 04/23/2019 08/25/2019 Inactive temazepam 15 mg capsule RxNorm: 591512 TAKE 1 TO 2 CAPS ULES BY MOUTH AT BEDTIME NEEDED FOR SLEEP 04/08/2019 09/25/2019 Inactive Cipro 250 mg tablet RxNorm: 480174 1 Tablet(s) Oral two times a day 03/27/2019 04/03/2019 Inactive metronidazole 500 mg tablet RxNorm: 842129 1 Tablet(s) Oral thr ee times a day 03/27/2019 04/03/2019 Inactive bumetanide 1 mg tablet RxNorm: 103426 1 Tablet(s) PO BID (6am a nd 6pm) 02/13/2019 05/13/2019 Inactive levothyroxine 25 mcg tablet RxNorm: 606805 1 Tablet(s) PO QD 201807/13/2019 Inactive warfarin 5 mg tablet RxNorm: 112320 1 TABLET(S) PO TU , WED, THURS, SAT AND SUN AND 1/2 TABLET ON 02/04/2019 02/11/2019 Inactive Kendra ent requests 90 days supply warfarin 5 mg tablet RxNorm: 353830 1 TABLET(S) PO TUES , WED, THURS, SAT AND SUN AND 1/2 TABLET ON 02/03/2019 02/03/2019 Inactive Kendra ent requests 90 days supply levothyroxine 25 mcg tablet RxNorm: 548508 1 Tablet(s) PO QD 201802/03/2019 Inactive warfarin 5 mg tablet RxNorm: 730808 1 Tablet(s) PO Tu , Wed, Thurs, Sat and Sun and 1/2 tablet on 01/31/2019 02/02/2019 Inactive temazepam 15 mg capsule RxNorm: 042732 TAKE 1 TO 2 CAPS ULES BY MOUTH AT BEDTIME NEEDED FOR SLEEP 01/31/2019 04/07/2019 Inactive cyclobenzaprine 10 mg tablet RxNorm: 167068 1 Tablet(s) PO Q8H as needed 12/30/2018 09/25/2019 Inactive losartan 25 mg tablet RxNorm: 024873 1 Tablet(s) PO QAM 12/27/2018 Inactive Lidoderm 5 % topical patch RxNorm: 8140487 1 Application TOP Q12H and then off for 12 hours 12/25/2018 01/23/2019 Inactive Lidoderm 5 % topical patch RxNorm: 4952704 1 Application TOP Q12H and then off for 12 hours 12/25/2018 12/24/2018 Inactive cyclobenzaprine 5 mg tablet RxNorm: 884246 1 Tablet(s) PO Q8H a s needed 12/12/2018 12/24/2018 Inactive spironolactone 25 mg tablet RxNorm: 028050 1 Tablet(s) PO BID 09/2006/16/2019 Inactive change in directions to BID pantoprazole 40 mg tablet,delayed release RxNorm: 455071 1 Tabl et(s) PO QD 09/20/2018 04/22/2019 Inactive Patient requests 9 0 days supply spironolactone 25 mg tablet RxNorm: 317821 1 Tablet(s) PO BID 08/2609/19/2018 Inactive change in directions to BID pantoprazole 40 mg tablet,delayed release RxNorm: 517079 1 Tabl et(s) PO QD 08/15/2018 09/19/2018 Inactive Patient requests 9 0 days supply carvedilol 6.25 mg tablet RxNorm: 553286 1 Tablet(s) PO BID 019 02/08/2019 Inactive pantoprazole 40 mg tablet,delayed release RxNorm: 314638 1 Tablet(s) PO QD 1 TABLET(S) PO BID 08/13/2018 08/15/2018 Inactive Patient reque sts 90 days supply bumetanide 1 mg tablet RxNorm: 835711 1 Tablet(s) PO BID (6am a nd 6pm) 08/13/2018 02/08/2019 Inactive bumetanide 0.5 mg tablet RxNorm: 387530 1 Tablet(s) PO QPM three days a week--Sunday, Sun, Sunday instead of 1mg dose in evening 08/13/201812/2018 Inactive levothyroxine 25 mcg tablet RxNorm: 592802 1 Tablet(s) PO QD 201801/30/2019 Inactive spironolactone 25 mg tablet RxNorm: 474990 1 Tablet(s) PO QD 201808/25/2018 Inactive losartan 25 mg tablet RxNorm: 032940 1 Tablet(s) PO QAM 08/13/2018 Inactive warfarin 5 mg tablet RxNorm: 162859 1 Tablet(s) PO QD 08/13/201808/09 Inactive pantoprazole 40 mg tablet,delayed release RxNorm: 062763 1 TABL ET(S) PO BID 08/02/2018 08/12/2018 Inactive Patient requests 9 0 days supply temazepam 15 mg capsule RxNorm: 238734 1-2 Capsule(s) P O QHS as needed for sleep 2018 01/31/2019 Inactive Restoril 15 mg capsule RxNorm: 827527 1-2 Capsule(s) PO QHS as needed for sleep 06/04/2018 08/12/2018 Inactive potassium chloride ER 10 mEq capsule,extended release RxNorm : 540905 2 CAPSULE(S) PO QD 05/07/2018 08/04/2018 Inactive Patient reque sts 90 days supply temazepam 22.5 mg capsule RxNorm: 491791 1 Capsule(s) P O QHS as needed for sleep 05/06/2018 08/12/2018 Inactive potassium chloride ER 10 mEq capsule,extended release RxNorm : 903962 2 Capsule(s) PO QD 05/06/2018 05/06/2018 Inactive ropinirole 1 mg tablet RxNorm: 653861 1 TABLET(S) PO QHS FOR RE STLESS LEGS 03/27/2018 04/25/2018 Inactive Patient requests 9 0 days supply ropinirole 1 mg tablet RxNorm: 792801 1 Tablet(s) PO QHS for re stless legs 03/26/2018 03/26/2018 Inactive cefdinir 300 mg capsule RxNorm: 735504 1 Capsule(s) PO BID 03/26/20 18 03/30/2018 Inactive temazepam 15 mg capsule RxNorm: 894579 1 Capsule(s) PO QHS as neede d 03/20/2018 03/25/2018 Inactive Lunesta 3 mg tablet RxNorm: 599765 1 Tablet(s) PO QHS as needed for sleep 03/04/2018 03/19/2018 Inactive amitriptyline 10 mg tablet RxNorm: 119613 1 Tablet(s) PO QHS fo r sleep 02/26/2018 03/03/2018 Inactive escitalopram 20 mg tablet RxNorm: 005258 1 Tablet(s) PO QHS 018 08/12/2018 Inactive pantoprazole 40 mg tablet,delayed release RxNorm: 609897 1 Tabl et(s) PO BID 02/26/2018 04/26/2018 Inactive Coumadin 2.5 mg tablet RxNorm: 074990 1 Tablet(s) PO MWF 02/18/2018 0 07/22/2018 Inactive amiodarone 200 mg tablet RxNorm: 938937 1 Tablet(s) PO QD No Start Da te Active colestipol 1 gram tablet RxNorm: 4506290 1 Tablet(s) PO BID No Start Date Active pantoprazole 40 mg tablet,delayed release RxNorm: 902178 1 Tabl et(s) PO QD No Start Date Active pantoprazole 40 mg tablet,delayed release RxNorm: 377399 1 Tabl et(s) PO QD No Start Date 02/25/2018 Inactive bumetanide 1 mg tablet RxNorm: 817662 1 Tablet(s) PO BID (6am a nd 6pm) No Start Date 08/12/2018 Inactive potassium chloride ER 10 mEq tablet,extended release RxNorm: 995841 1 Tablet(s) PO QD No Start Date 02/11/2019 Inactive levothyroxine 25 mcg tablet RxNorm: 949688 1 Tablet(s) PO QD No Sta rt Date 08/12/2018 Inactive spironolactone 25 mg tablet RxNorm: 008691 1 Tablet(s) PO QD No Sta rt Date 08/12/2018 Inactive warfarin 5 mg tablet RxNorm: 351565 1 Tablet(s) PO MWF No Start Date 08/12/2018 Inactive warfarin 5 mg tablet RxNorm: 066448 1 Tablet(s) PO Tues , Wed, Thurs, Sat and Sun then 1/2 tablet (2.5mg) on Mon & Fri No Start Date 08/12/2018 Inactive losartan 25 mg tablet RxNorm: 427687 1 Tablet(s) PO QAM No Start Da te 08/12/2018 Inactive carvedilol 6.25 mg tablet RxNorm: 897436 1 Tablet(s) PO BID No Star t Date 08/12/2018 Inactive warfarin 2.5 mg tablet RxNorm: 749572 1 Tablet(s) PO , Thur s, Sat and Sun No Start Date 08/12/2018 Inactive Coumadin 2.5 mg tablet RxNorm: 947782 Tablet(s) Mon Sun and Sun PO No Start Date 02/17/2018 Inactive Children's Multivitamin with Iron tablet RxNorm: 1 Table t(s) PO QD No Start Date 04/22/2019 Inactive potassium chloride ER 20 mEq tablet,extended release(p art/cryst) RxNorm: 9957950 2 Tablet(s) PO QD No Start Date 05/05/2018 Inactive Coumadin 5 mg tablet RxNorm: 374869 Tablet(s) PO No Start Date 2017 Inactive mexiletine 200 mg capsule RxNorm: 4629072 1 Capsule(s) PO BID No St art Date 03/25/2018 Inactive ferrous sulfate 325 mg (65 mg iron) tablet RxNorm: 801130 1 Tab let(s) PO QD No Start Date 07/22/2018 Inactive cyclobenzaprine 10 mg tablet RxNorm: 642249 1 Tablet(s) PO Q8H as needed No Start Date 12/29/2018 Inactive potassium chloride ER 10 mEq capsule,extended release RxNorm : 144494 2 Capsule(s) PO QD No Start Date 12/11/2018 Inactive Coumadin 5 mg tablet RxNorm: 517757 1 Tablet(s) PO , , Sat and Sun No Start Date 07/22/2018 Inactive Restoril 15 mg capsule RxNorm: 906503 1-2 Capsule(s) PO QHS as needed for sleep No Start Date 05/05/2018 Inactive metoprolol succinate ER 25 mg tablet,extended release 24 hr RxNorm: 569921 1 Tablet(s) PO QD No Start Date 08/12/2018 Inactive Entresto 24 mg-26 mg tablet RxNorm: 6172688 1 Tablet(s) PO BID No S tart Date 08/12/2018 Inactive warfarin 5 mg tablet RxNorm: 584348 1 Tablet(s) PO , Sun, , Sat and Sun and 1/2 tablet on Mon/Fri No Start Date 01/30/2019 Inactive amiodarone 200 mg tablet RxNorm: 994734 2 Tablet(s) PO BID No Start Date 10/09/2018 Inactive furosemide 20 mg tablet RxNorm: 238705 1 Tablet(s) PO QD No Start D ate 08/12/2018 Inactive amiodarone 200 mg tablet RxNorm: 989353 1 Tablet(s) PO BID No Start Date 08/26/2018 Inactive atorvastatin 40 mg tablet RxNorm: 112795 1 Tablet(s) PO QD No Start Date 08/12/2018 Inactive warfarin 5 mg tablet RxNorm: 864750 1/2 Tablet(s) PO on Sun, Sun, Sun, Sun then 1 tablet on Sun, , Sun No Start Date 04/22/2019 Inactive Medication Administered No Medication Administered data Immunizations Vaccine Codes Date Status Pneumovax CVX: 33 05/14/2019 Hepatitis A CVX: 83 03/25/2019 Influenza CVX: 135 03/25/2019 Results Observation Observation Code Item Item Code Result Date S ervice Location UA W/MICR 88015 UA Urine Appear Normal 02/06/2018 Unk nown UA W/MICR 02504 UA Protein 3+ 02/06/2018 Unknown UA W/MICR 06170 UA Hemoglobin Trace 02/06/2018 Unkno wn UA W/MICR 35183 UA Glucose Negative 02/06/2018 Unknown UA W/MICR 44315 UA Ketones Negative 02/06/2018 Unknown UA W/MICR 98095 UA pH 5.5 02/06/2018 Unknown UA W/MICR 00947 U Spec [place] 1.025 02/06/2018 Unkn own UA W/MICR 39839 UA Bilirubin Negative 02/06/2018 Unknow n UA W/MICR 87478 UA Leuk Esteras Trace 02/06/2018 Unk nown UA W/MICR 38254 UA Nitrite NEG 02/06/2018 Unknown UA W/MICR 10238 UA WBC/hpf 11-25 02/06/2018 Unknown UA W/MICR 25854 UA RBC hpf 0-5 02/06/2018 Unknown UA W/MICR 04106 UA Hyaline Cast 16-25 02/06/2018 Unk nown UA W/MICR 43615 UA Squam Epi Few 02/06/2018 Unknow n Procedures Procedure Codes Date INITIAL PREVENTIVE EXAM CPT-4: G0402 09/25/2019 URINALYSIS NONAUTO W/O SCOPE CPT-4: 27187 03/18/2019 URINE CULTURE/ COLONY COUNT CPT-4: 25650 03/18/2019 URINALYSIS NONAUTO W/O SCOPE CPT-4: 19332 12/12/2018 URINE CULTURE/ COLONY COUNT CPT-4: 04559 03/26/2018 URINALYSIS NONAUTO W/O SCOPE CPT-4: 17778 03/15/2018 INITIAL PREVENTIVE EXAM CPT-4: G0402 02/26/2018 URINALYSIS NONAUTO W/O SCOPE CPT-4: 15585 02/06/2018 URINE CULTURE/ COLONY COUNT CPT-4: 95787 02/06/2018 UA W/MICR CPT-4: 30611 02/06/2018 CUR TOBACCO NON-USER CPT-4: G8457 01/30/2018 REPAIR BLADDER & VAGINA CPT-4: 23353 01/06/2017 REPAIR OF RECTOCELE CPT-4: 74137 01/06/2017 BREAST SURGERY PROCEDURE CPT-4: 80764 Unknown LAPARO CHOLECYSTECTOMY/EXPLR CPT-4: 64970 Unknown HYSTERECTOMY/REVISE VAGINA CPT-4: 07186 Unknown Vital Signs Date Vital 09/25/2019 Blood [...] 1: 106/58 Code: 8480-6 BMI: 26.3 Code: 33261-6 Heart Rate 1: 72 bpm Height: 4'10" Respiratory Rate: 20 bpm SpO2: 97% Tempera ture: 36.6 (C) / 97.8 (F) Weight: 128 lbs 07/10/2018 Blood Pressure 1: 122/70 Code: 8480-6 BMI: 28.6 Code: 38311-9 Heart Rate 1: 80 bpm Height: 4'10" Respiratory Rate: 20 bpm SpO2: 96% Tempera ture: 36.9 (C) / 98.4 (F) Weight: 139 lbs 05/06/2018 Blood Pressure 1: 112/54 Code: 8480-6 BMI: 27.5 Code: 66672-7 Heart Rate 1: 80 bpm Height: 4'10" [...] 1: 146/80 Code: 8480-6 BMI: 30.0 Code: 01409-5 Heart Rate 1: 76 bpm Height: 4'10" Respiratory Rate: 20 bpm SpO2: 97% Tempera ture: 36.7 (C) / 98.1 (F) Weight: 146 lbs 02/26/2018 Blood Pressure 1: 126/80 Code: 8480-6 BMI: 29.6 Code: 31259-0 Heart Rate 1: 80 bpm Height: 4'10" Respiratory Rate: 18 bpm SpO2: 96% Tempera ture: 37.0 (C) / 98.6 (F) Weight: 144 lbs 01/30/2018 Blood Pressure 1: 120/78 Code: 8480-6 BMI: 29.6 Code: 53950-9 Heart Rate 1: 84 bpm Height: 4'10" [...] Care Encounters Encounter Performer Location Codes Date ([id number]) OFFICE/OUTPATIENT VISIT EST Diagnosis: Sigmoid diverticulitis[ICD10: K57.32] Jalyn Bullmarques ARREDONDO JaniceRuben BULLAUGIE [employer] [facility] CPT-4: 00305 08/26/2019 ([id number]) OFFICE/OUTPATIENT VISIT EST Diagnosis: Clostridium difficile colitis[ICD10: A04.72] Jalyn Bullmarques VÁSQUEZJALYN JaniceRuben DAPHNE [employer] [facility] CPT-4: 46037 05/07/2019 ([id number]) OFFICE/OUTPATIENT VISIT EST Diagnosis: Clostridium difficile colitis[ICD10: A04.72] Diagnosis: Edema[ICD10: R60.9] Jalyn Bullmarques VÁSQUEZJALYN JaniceRuben DAPHNE [employer] [facility] CPT-4: 32302 04/23/2019 ([id number]) OFFICE/OUTPATIENT VISIT EST Diagnosis: Constipation[ICD10: K59.00] Diagnosis: Left lower quadrant pain[ICD10: R10.32] Bhavna Escalante THALIA MINGODIOR JaniceRuben BULLAUGIEANIBAL [employer] [facility] CPT-4: 32165 03/27/2019 ([id number]) OFFICE/OUTPATIENT VISIT EST Diagnosis: Acute kidney failure, unspecified[ICD10: N17.9] Jalyndior DOUGHERTY JaniceRuben BULLAUGIE [employer] [facility] CPT-4: 84611 03/18/2019 ([id number]) OFFICE/OUTPATIENT VISIT EST Diagnosis: Essential (primary) hypertension[ICD10: I10] Diagnosis: Chronic atrial fibrillation[ICD10: I48.2] Diagnosis: Mixed hyperlipidemia[ICD10: E78.2] Diagnosis: Other fatigue[ICD10: R53.83] Diagnosis: Abdominal distension (gaseous)[ICD10: R14.0] Jalyn DAILY DO [facility] CPT-4: 47227 02/12/2019 ([id number]) OFFICE/OUTPATIENT VISIT EST Diagnosis: Low back pain[ICD10: M54.5] Bhavna DOUGHERTY S. O RENDER [facility] CPT-4: 96544 12/25/2018 ([id number]) OFFICE/OUTPATIENT VISIT EST Diagnosis: Low back pain[ICD10: M54.5] Bhavna DOUGHERTY S. Michelle RENDER [facility] CPT-4: 99927 12/12/2018 ([id number]) OFFICE/OUTPATIENT VISIT EST Diagnosis: Anemia, unspecified[ICD10: D64.9] Diagnosis: Chronic atrial fibrillation[ICD10: I48.2] Diagnosis: Other fatigue[ICD10: R53.83] Jalyn DAILY DO [facility] CPT-4: 24370 10/10/2018 ([id number]) OFFICE/OUTPATIENT VISIT EST Diagnosis: Acute on chronic combined systolic (congestive) and diastolic (congestive) heart failure[ICD10: I50.43] Diagnosis: Chronic atrial fibrillation[ICD10: I48.2] Jalyn DAILY DO [facility] CPT-4: 10836 08/27/2018 ([id number]) OFFICE/OUTPATIENT VISIT EST Diagnosis: Chronic atrial fibrillation[ICD10: I48.2] 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] 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] Jalyn DAILY DO [facility] CPT-4: 77944 08/13/2018 ([id number]) OFFICE/OUTPATIENT VISIT EST Diagnosis: Acute on chronic combined systolic (congestive) and diastolic (congestive) heart failure[ICD10: I50.43] Diagnosis: Essential (primary) hypertension[ICD10: I10] Diagnosis: Anemia, unspecified[ICD10: D64.9] Jalyn GIBBONSLIN [facility] CPT-4: 60618 07/10/2018 ([id number]) OFFICE/OUTPATIENT VISIT EST Diagnosis: Chronic atrial fibrillation[ICD10: I48.2] Diagnosis: Acute on chronic combined systolic (congestive) and diastolic (congestive) heart failure[ICD10: I50.43] Diagnosis: Localized edema[ICD10: R60.0] Jalyn DAILY [facility] CPT-4: 14605 05/06/2018 ([id number]) OFFICE/OUTPATIENT VISIT EST Diagnosis: Generalized abdominal pain[ICD10: R10.84] Diagnosis: Pelvic and perineal pain[ICD10: R10.2] Diagnosis: Localized edema[ICD10: R60.0] Bhavna DAILY [facility] CPT-4: 00585 04/17/2018 ([id number]) OFFICE/OUTPATIENT VISIT EST Diagnosis: Urinary tract infection, site not specified[ICD10: N39.0] Diagnosis: Other insomnia[ICD10: G47.09] Diagnosis: Other fatigue[ICD10: R53.83] Diagnosis: Other forms of dyspnea[ICD10: R06.09] Diagnosis: Chronic atrial fibrillation[ICD10: I48.2] Diagnosis: Restless legs syndrome[ICD10: G25.81] Jalyn DAILY [facility] CPT-4: 55786 03/26/2018 ([id number]) OFFICE/OUTPATIENT VISIT EST Diagnosis: Altered mental status, unspecified[ICD10: R41.82] Diagnosis: assisted (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[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] Diagnosis: Hematuria, unspecified[ICD10: R31.9] Bhavna DAILY [facility] CPT-4: 45019 03/15/2018 ([id number]) NURSE/OUTPATIENT VISIT EST Diagnosis: Urinary tract infection, site not specified[ICD10: N39.0] Jalyn DAILY [facility] CPT-4: 28896 02/06/2018 OFFICE/OUTPATIENT VISIT NEW Diagnosis: assisted (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[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] Diagnosis: Essential (primary) hypertension[ICD10: I10] Diagnosis: Mixed hyperlipidemia[ICD10: E78.2] Diagnosis: Other fatigue[ICD10: R53.83] Diagnosis: Cardiac arrhythmia, unspecified[ICD10: I49.9] Diagnosis: Generalized abdominal pain[ICD10: R10.84] Diagnosis: Urinary tract infection, site not specified[ICD10: N39.0] Diagnosis: Other insomnia[ICD10: G47.09] Bhavna DAILY [facility] CPT-4: 58343 01/30/2018 Plan of Care Planned Activity Notes Codes Status Date Visit Diagnosis Plan: Essential (primary) hypertension Discussion: Stable ICD-9 : 401.9 ICD-10 : I10 09/25/2019 Visit Diagnosis Plan: Encounter for [facility] adult medical examination with [...] Plan: COMPREH[place] : 466[address]-0 Pending 09/22/2019 Care Plan: COMPLETE CBC W/AUTO DIFF WBC LOINC : 17548-1 Pending 09/22/2019 Appointment: Bhavna Escalante [address] [facility] [place] pt. feeling better and still had [...] K57.32 08/26/2019 Appointment: Jalyn Daily WPtel: [phone] [facility] ACUTE ILLNESS 08/26/2019 Appointment: Jalyn Daily WPtel: [address] [place], [place] [phone] originally 4 mo follow up CANCELED 2018 Visit Diagnosis Plan: Clostridium difficile colitis Di scussion: Vancomycin daily for another week then 125mg every 3 days for 1 month then stop Fwup in September ICD-9 : 008.45 ICD-10 : A04.72 05/07/2019 Appointment: Jalyn Daily WPtel: [address] [place], [place] [phone] FOLLOW UP 05/07/2019 Visit Diagnosis Plan: Edema [...] A04.72 04/23/2019 Appointment: Jalyn Daily WPtel: [address] [place], [place] [phone] 04/23/2019 Appointment: Bhavna Escalante [address] [id number] CANCELED 04/15/2019 Visit Diagnosis Plan: Left lower quadrant pain Discuss ion: will start with abdominal xray to rule out acute obstruction/constipation. if no acute findings, will treat as diverticulitis due to patient's past history. ICD-9 : 789.04 ICD-10 : R10.32 03/27/2019 Appointment: Bhavna Escalante [address] [facility] ACUTE ILLNESS 03/27/2019 Visit Diagnosis Plan: Acute kidney failure, unspecifie d Discussion: Was given Meloxicam at urgent care--discussed no NSAIDs, hydrate, repeat Chem 7 in 1 week ICD-9 : 584.9 ICD-10 : N17.9 03/18/2019 Appointment: Jalyn Daily WPtel: [phone] [facility] [place] ACUTE ILLNESS 03/18/2019 Visit Diagnosis Plan: Abdominal distension (gaseous) D iscussion: Trial of Zenpep q AC ICD-9 : 787.3 ICD-10 : R14.0 02/12/2019 Visit Diagnosis Plan: Essential (primary) hypertension Discussion: Stable ICD-9 : 401.9 ICD-10 : I10 02/12/2019 Visit Diagnosis Plan: Chronic atrial fibrillation Disc ussion: Following routinely with Cardiology ICD-9 : 427.31 ICD-10 : I48.2 02/12/2019 Appointment: Jalyn Daily WPtel: [phone] [place] [address] [place] FOLLOW UP 02/12/2019 Appointment: Bhavna Escalante [address] [place] [address] [place] Canceled per guillermina. sending for mri [...] : M54.5 12/25/2018 Appointment: Bhavna Escalante [address] [place] [address] ACUTE ILLNESS 12/25/2018 Visit Diagnosis Plan: Low [...] : M54.5 12/12/2018 Appointment: Bhavna Escalante [address] [phone] ACUTE ILLNESS 12/12/2018 Patient Education: cyclobenzaprine- [employer] Coupon [id number] https://www.Anafocus.MAINtag/samplemd/resources/getResource/61/tz9883n3-t715-7x8y-b3 Completed 12/12/2018 [facility]ment[facility] [facility] CANCELED 12/06/2018 Visit Diagnosis Plan: Anemia, [...] : R53.83 10/10/2018 Appointment: Jalyn Daily WPtel: [address] [place] [address] [place] FOLLOW UP 10/10/2018 Visit Diagnosis Plan: [...] : I50.43 08/27/2018 Appointment: Jalyn Daily WPtel: [address] [place], [place] [phone] [place] FOLLOW UP 08/27/2018 Visit Diagnosis Plan: [...] ICD-10 : I48.2 08/13/2018 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 Discussion: Increase Coumadin to 5mg po daily and repeat PT/INR in 2 weeks ICD-9 : V58.61 ICD-10 : Z79.01 08/13/2018 Appointment: Jalyn Daily WPtel: [phone] [id number] FOLLOW UP 08/13/2018 Patient Education: bumetanide- [employer] Coupon [id number] https://www.[employer]vite D/[employer]Apps/Anafocus/resources/getResource/61/8fe51a10-4yr3-2t70-cb Completed 08/13/2018 Patient Education: levothyroxine- [employer] Coupon 56 [id number] https://www.[employer]ocus/resources/getResource/61/6516687k-1730-1t36-om Completed 08/13/2018 Patient Education: warfarin- [employer] Coupon [id number] 1 https://www.[employer]/An[employer]ocus/resources/getResource/61/88871876-oi26-98s4-7g Completed 08/13/2018 Patient Education: pantoprazole- [employer] Coupon [phone] https://www.[employer]/Anafocus/resources/getResource/61/k1921z85-20c4-05xg-3a Completed 08/13/2018 Patient Education: spironolactone- [employer] Coupon 5 [id number] https://www.[employer]/Anafocus/resources/getResource/61/8ar490l3-e623-9097-rn Completed 08/13/2018 Visit Diagnosis Plan: Anemia, unspecified [...] : I50.43 07/10/2018 Appointment: Jalyn Daily WPtel: [address] [place], [place] [phone] [place] 2nd LM FOLLOW UP 07/10/2018 Visit [...] : I48.2 05/06/2018 Appointment: Jalyn Daily WPtel: [address] [place], [place] [phone] [place] FOLLOW UP 05/06/2018 Visit Diagnosis Plan: [...] ICD-10 : R10.2 04/17/2018 Appointment: Bhavna Escalante [address] [place], [place] [phone] ACUTE ILLNESS 04/17/2018 Patient Education: Patient Medication Summary Completed 04/17/2018 Care Plan: CT ABDOMEN W/O & W/DYE LOINC : 79103-4 Pending 04/17/2018 Care Plan: CT PELVIS W/O & W/DYE LOINC : 51023-5 Pending 04/17/2018 Appointment: Jalyn Daily WPtel: [address] [place], [place] [phone] [place] CANCELED 04/10/2018 Visit Diagnosis Plan: Chronic [...] R06.09 03/26/2018 Appointment: [phone] [facility] [facility] Follow UP 03/26/2018 Patient Education: [...] : R41.82 03/15/2018 Appointment: Bhavna Escalante [address] [place] [address] ACUTE ILLNESS 03/15/2018 Patient Education: Patient Medication Summary Completed 03/15/2018 Visit Diagnosis Plan: Primary insomnia Discussion: Tri al of elavil 10mg po q HS ICD-9 : 780.52 ICD-10 : F51.01 02/26/2018 Visit Diagnosis Plan: Functional dyspepsia Discussion: Increase protonix to 40mg po BID Follow Up: 1 months ICD-9 : 536.8 ICD-10 : K30 02/26/2018 Appointment: Jalyn Daily WPtel: [address] [place] [address] WELCOME TO MEDICARE 02/26/2018 Patient Education: Patient Medication Summary Completed 02/26/2018 Referral: Song Noonan WPtel: [address] [place] [address] [place] Referral Initiated 02/19/2018 Appointment: Jalyn Daily WPtel: [address] [place] [address] LAB 02/06/2018 Patient Education: Patient Medication Summary Completed 02/06/2018 Appointment: Jalyn Daily WPtel: [address] [place] [address] [place] CANCELED 02/01/2018 Care Plan: US EXAM ABDOM COMPLETE liver LOINC : [id number] Pending 01/31/2018 Visit Diagnosis Plan: Other fatigue Discussion: will o rder fasting blood work to assess for any anemia or infection especially due to recent surgery and bleeding risks. ICD-9 : 780.79 ICD-10 : R53.83 01/30/2018 Visit Diagnosis Plan: assisted (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 Discussion: instructed [...] ICD-10 : I10 01/30/2018 Appointment: Bhavna Escalante [address] [place], [place] [id number] NEW PATIENT 01/30/2018 Patient Education: Patient Medication Summary Completed 01/30/2018 Instructions No Instructions Medical Equipment No Medical Equipment data Health Concerns Section Health Concerns data not found Goals Section Goals data not found Interventions Section Interventions data not found Health Status Evaluations/Outcomes Section Health Status Evaluations/Outcomes data not found Advance Directives No Advance Directive data
--- OUTSIDE RECORDS SUMMARY | 2020-02-10 14:09 | XMS REPORT | CCD ---
Author Author Riana Escalante Organization [facility] S[facility] DAPHNE VANES[facility] Address [address] [place] [address] Phone Unavailable Care Team Providers Care Parts Remover Name Role Phone PP Unavailable CCM Unavailable Summary Purpose Interface Exchange Insurance Providers Payer name Policy type / Coverage type Covered alliance party ID Effective Begin Date Effective End Date WPS MEDICARE PART B [place] Medicare Part B [id number] 2017 Unknown Cigna Medicare Part B [id number] 2017 Unknown Family History Family History data not found Social History Social History Element Codes Description Effective Dates Tobacco history SNOMED CT: 203251547 Never smoker 01/30/[address]: 439491603 Never drinks alcohol 2017 Allergies, Adverse Reactions, Alerts Substance Reaction Codes Entered Date Inactivated Date Status * NO KNOWN ENVIRONMENTAL ALLERGIES Unknown 01/30/2018 N o Inactive Date Active * NO KNOWN FOOD ALLERGIES Unknown 01/30/2018 No Inactiv e Date Active * NO KNOWN DRUG ALLERGIES Unknown 01/30/2018 No Inactiv e Date Active Problems Condition Codes Effective Dates Condition Status Anemia, unspecified ICD-9: 285.9 ICD-10: D64.9 07/10/2018 Active 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 ICD-9: 428.42 ICD-10: I50.42 08/13/2018 Active Essential (primary) hypertension ICD-9: 401.9 ICD-10: I10 01/30/2018 Active Sigmoid diverticulitis ICD-9: 562.11 ICD-10: K57.32 [...] fibrillation ICD-9: 427.31 ICD-10: I48.2 03/26/2018 Active Mixed hyperlipidemia ICD-9: 272.2 ICD-10: E78.2 01/30/2018 Active Other fatigue ICD-9: 780.79 ICD-10: R53.83 01/30/2018 Active Low back pain ICD-9: 724.2 ICD-10: M54.5 12/12/2018 Active 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 ICD-9: 428.43 ICD-10: I50.43 05/06/2018 Active Cardiac arrhythmia, unspecified ICD-9: 427.9 ICD-10: I49.9 01/30/2018 Active correction (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 ICD-9: V58.6 1 ICD-10: Z79.01 01/30/2018 Active Localized edema ICD-9: 782.3 ICD-10: [...] unspecified ICD-9: 599.70 ICD-10: R31.9 03/15/2018 Active Encounter for general adult medical examination with a bnormal findings ICD-9: V70.0 ICD-10: Z00.01 02/26/2018 Active Functional dyspepsia ICD-9: 536.8 ICD-10: K30 02/26/2018 Active Primary insomnia ICD-9: 780.52 ICD-10: F51.01 02/26/2018 Active Hypertension Unknown 01/30/2018 Active Medications Medication Codes Instructions Start Date Stop Date Status Fill Instructions warfarin 5 mg tablet RxNorm: 185279 1 Tablet(s) Oral MW F and 1/2 tablet (2.5mg) , , Sat & Sun 08/26/2019 No Stop Date Active Colace 100 mg capsule RxNorm: 8984486 1 Capsule(s) Oral QD 08/26/19 20 11/24/2019 Active vancomycin 125 mg capsule RxNorm: 748628 2 Capsule(s) Oral Q8H 08/0909/05/2019 Inactive levothyroxine 25 mcg tablet RxNorm: 395285 1 Tablet(s) PO QD 201910/11/2019 Active spironolactone 25 mg tablet RxNorm: 858684 TAKE 1 TABLET BY DOUGLAS TH TWICE DAILY 06/22/2019 09/19/2019 Inactive losartan 25 mg tablet RxNorm: 949915 TAKE 1 TABLET BY M OUTH ONCE DAILY IN THE MORNING 05/26/2019 No Stop Date Active bumetanide 1 mg tablet RxNorm: 666046 TAKE 1 TABLET BY MOUTH TWICE DAILY AT 6AM AND 6PM 05/23/2019 No Stop Date Active vancomycin 125 mg capsule RxNorm: 835739 1 Capsule(s) Oral Q3D 04/1008/25/2019 Inactive potassium chloride ER 10 mEq capsule,extended release RxNorm : 955535 1 Capsule(s) Oral QD 04/23/2019 No Stop Date Active pantoprazole 40 mg tablet,delayed release RxNorm: 968817 1-2 Ta blet(s) Oral QD 04/23/2019 05/23/2019 Inactive warfarin 5 mg tablet RxNorm: 072377 Tablet(s) Oral Take 1 tablet (5mg) by mouth on and Sun then 1/2 tablet (2.5mg) on Sun, Sun, Thurs, Sat and Sun 04/23/2019 08/25/2019 Inactive temazepam 15 mg capsule RxNorm: 837454 TAKE 1 TO 2 CAPS ULES BY MOUTH AT BEDTIME NEEDED FOR SLEEP 04/08/2019 No Stop Date Active Cipro 250 mg tablet RxNorm: 936688 1 Tablet(s) Oral two times a day 03/27/2019 04/03/2019 Inactive metronidazole 500 mg tablet RxNorm: 300972 1 Tablet(s) Oral thr ee times a day 03/27/2019 04/03/2019 Inactive bumetanide 1 mg tablet RxNorm: 064684 1 Tablet(s) PO BID (6am a nd 6pm) 02/13/2019 05/13/2019 Inactive levothyroxine 25 mcg tablet RxNorm: 430513 1 Tablet(s) PO QD 201807/13/2019 Inactive warfarin 5 mg tablet RxNorm: 507461 1 TABLET(S) PO TUES , WED, THURS, SAT AND SUN AND 1/2 TABLET ON 02/04/2019 02/11/2019 Inactive Kendra ent requests 90 days supply warfarin 5 mg tablet RxNorm: 326055 1 TABLET(S) PO TUES , WED, THURS, SAT AND SUN AND 1/2 TABLET ON 02/03/2019 02/03/2019 Inactive Kendra ent requests 90 days supply levothyroxine 25 mcg tablet RxNorm: 436768 1 Tablet(s) PO QD 201802/03/2019 Inactive warfarin 5 mg tablet RxNorm: 679820 1 Tablet(s) PO Tues , Wed, Thurs, Sat and Sun and 1/2 tablet on 01/31/2019 02/02/2019 Inactive temazepam 15 mg capsule RxNorm: 430804 TAKE 1 TO 2 CAPS ULES BY MOUTH AT BEDTIME NEEDED FOR SLEEP 01/31/2019 04/07/2019 Inactive cyclobenzaprine 10 mg tablet RxNorm: 488291 1 Tablet(s) PO Q8H as needed 12/30/2018 No Stop Date Active losartan 25 mg tablet RxNorm: 428061 1 Tablet(s) PO QAM 12/27/2018 Inactive Lidoderm 5 % topical patch RxNorm: 2605342 1 Application TOP Q12H and then off for 12 hours 12/25/2018 01/23/2019 Inactive Lidoderm 5 % topical patch RxNorm: 6401474 1 Application TOP Q12H and then off for 12 hours 12/25/2018 12/24/2018 Inactive cyclobenzaprine 5 mg tablet RxNorm: 690079 1 Tablet(s) PO Q8H a s needed 12/12/2018 12/24/2018 Inactive spironolactone 25 mg tablet RxNorm: 118423 1 Tablet(s) PO BID 09/2006/16/2019 Inactive change in directions to BID pantoprazole 40 mg tablet,delayed release RxNorm: 027991 1 Tabl et(s) PO QD 09/20/2018 04/22/2019 Inactive Patient requests 9 0 days supply spironolactone 25 mg tablet RxNorm: 703207 1 Tablet(s) PO BID 08/2609/19/2018 Inactive change in directions to BID pantoprazole 40 mg tablet,delayed release RxNorm: 064339 1 Tabl et(s) PO QD 08/15/2018 09/19/2018 Inactive Patient requests 9 0 days supply carvedilol 6.25 mg tablet RxNorm: 227560 1 Tablet(s) PO BID 019 02/08/2019 Inactive pantoprazole 40 mg tablet,delayed release RxNorm: 318768 1 Tablet(s) PO QD 1 TABLET(S) PO BID 08/13/2018 08/15/2018 Inactive Patient reque sts 90 days supply bumetanide 1 mg tablet RxNorm: 026443 1 Tablet(s) PO BID (6am a nd 6pm) 08/13/2018 02/08/2019 Inactive bumetanide 0.5 mg tablet RxNorm: 243355 1 Tablet(s) PO QPM three days a week--Sunday, Sun, Sunday instead of 1mg dose in evening 08/13/201812/2018 Inactive levothyroxine 25 mcg tablet RxNorm: 619446 1 Tablet(s) PO QD 201801/30/2019 Inactive spironolactone 25 mg tablet RxNorm: 677688 1 Tablet(s) PO QD 201808/25/2018 Inactive losartan 25 mg tablet RxNorm: 499667 1 Tablet(s) PO QAM 08/13/2018 Inactive warfarin 5 mg tablet RxNorm: 398419 1 Tablet(s) PO QD 08/13/201808/09 Inactive pantoprazole 40 mg tablet,delayed release RxNorm: 653777 1 TABL ET(S) PO BID 08/02/2018 08/12/2018 Inactive Patient requests 9 0 days supply temazepam 15 mg capsule RxNorm: 569091 1-2 Capsule(s) P O QHS as needed for sleep 2018 01/31/2019 Inactive Restoril 15 mg capsule RxNorm: 238371 1-2 Capsule(s) PO QHS as needed for sleep 06/04/2018 08/12/2018 Inactive potassium chloride ER 10 mEq capsule,extended release RxNorm : 876068 2 CAPSULE(S) PO QD 05/07/2018 08/04/2018 Inactive Patient reque sts 90 days supply temazepam 22.5 mg capsule RxNorm: 792478 1 Capsule(s) P O QHS as needed for sleep 05/06/2018 08/12/2018 Inactive potassium chloride ER 10 mEq capsule,extended release RxNorm : 970245 2 Capsule(s) PO QD 05/06/2018 05/06/2018 Inactive ropinirole 1 mg tablet RxNorm: 406233 1 TABLET(S) PO QHS FOR RE STLESS LEGS 03/27/2018 04/25/2018 Inactive Patient requests 9 0 days supply ropinirole 1 mg tablet RxNorm: 556036 1 Tablet(s) PO QHS for re stless legs 03/26/2018 03/26/2018 Inactive cefdinir 300 mg capsule RxNorm: 806771 1 Capsule(s) PO BID 03/26/20 18 03/30/2018 Inactive temazepam 15 mg capsule RxNorm: 525244 1 Capsule(s) PO QHS as neede d 03/20/2018 03/25/2018 Inactive Lunesta 3 mg tablet RxNorm: 460032 1 Tablet(s) PO QHS as needed for sleep 03/04/2018 03/19/2018 Inactive amitriptyline 10 mg tablet RxNorm: 278292 1 Tablet(s) PO QHS fo r sleep 02/26/2018 03/03/2018 Inactive escitalopram 20 mg tablet RxNorm: 899287 1 Tablet(s) PO QHS 018 08/12/2018 Inactive pantoprazole 40 mg tablet,delayed release RxNorm: 123847 1 Tabl et(s) PO BID 02/26/2018 04/26/2018 Inactive Coumadin 2.5 mg tablet RxNorm: 046746 1 Tablet(s) PO MWF 02/18/2018 0 07/22/2018 Inactive amiodarone 200 mg tablet RxNorm: 817490 1 Tablet(s) PO QD No Start Da te Active colestipol 1 gram tablet RxNorm: 0857589 1 Tablet(s) PO BID No Start Date Active pantoprazole 40 mg tablet,delayed release RxNorm: 716736 1 Tabl et(s) PO QD No Start Date Active pantoprazole 40 mg tablet,delayed release RxNorm: 975734 1 Tabl et(s) PO QD No Start Date 02/25/2018 Inactive bumetanide 1 mg tablet RxNorm: 298903 1 Tablet(s) PO BID (6am a nd 6pm) No Start Date 08/12/2018 Inactive potassium chloride ER 10 mEq tablet,extended release RxNorm: 158054 1 Tablet(s) PO QD No Start Date 02/11/2019 Inactive levothyroxine 25 mcg tablet RxNorm: 386335 1 Tablet(s) PO QD No Sta rt Date 08/12/2018 Inactive spironolactone 25 mg tablet RxNorm: 040968 1 Tablet(s) PO QD No Sta rt Date 08/12/2018 Inactive warfarin 5 mg tablet RxNorm: 280850 1 Tablet(s) PO MWF No Start Date 08/12/2018 Inactive warfarin 5 mg tablet RxNorm: 322078 1 Tablet(s) PO Tu , Wed, Th, Sat and Sun then 1/2 tablet (2.5mg) on Mon & Fri No Start Date 08/12/2018 Inactive losartan 25 mg tablet RxNorm: 697605 1 Tablet(s) PO QAM No Start Da te 08/12/2018 Inactive carvedilol 6.25 mg tablet RxNorm: 910018 1 Tablet(s) PO BID No Star t Date 08/12/2018 Inactive warfarin 2.5 mg tablet RxNorm: 483208 1 Tablet(s) PO Tues, Thur s, Sat and Sun No Start Date 08/12/2018 Inactive Coumadin 2.5 mg tablet RxNorm: 776985 Tablet(s) Mon Sun and Fri PO No Start Date 02/17/2018 Inactive Children's Multivitamin with Iron tablet RxNorm: 1 Table t(s) PO QD No Start Date 04/22/2019 Inactive potassium chloride ER 20 mEq tablet,extended release(p art/cryst) RxNorm: 7874363 2 Tablet(s) PO QD No Start Date 05/05/2018 Inactive Coumadin 5 mg tablet RxNorm: 886343 Tablet(s) PO No Start Date 2017 Inactive mexiletine 200 mg capsule RxNorm: 7440076 1 Capsule(s) PO BID No St art Date 03/25/2018 Inactive ferrous sulfate 325 mg (65 mg iron) tablet RxNorm: 555195 1 Tab let(s) PO QD No Start Date 07/22/2018 Inactive cyclobenzaprine 10 mg tablet RxNorm: 258329 1 Tablet(s) PO Q8H as needed No Start Date 12/29/2018 Inactive potassium chloride ER 10 mEq capsule,extended release RxNorm : 033195 2 Capsule(s) PO QD No Start Date 12/11/2018 Inactive Coumadin 5 mg tablet RxNorm: 300612 1 Tablet(s) PO Tues, Thurs, Sat and Sun No Start Date 07/22/2018 Inactive Restoril 15 mg capsule RxNorm: 198083 1-2 Capsule(s) PO QHS as needed for sleep No Start Date 05/05/2018 Inactive metoprolol succinate ER 25 mg tablet,extended release 24 hr RxNorm: 452093 1 Tablet(s) PO QD No Start Date 08/12/2018 Inactive Entresto 24 mg-26 mg tablet RxNorm: 4342854 1 Tablet(s) PO BID No S tart Date 08/12/2018 Inactive warfarin 5 mg tablet RxNorm: 031922 1 Tablet(s) PO Tues , Wed, Thurs, Sat and Sun and 1/2 tablet on Sun/Fri No Start Date 01/30/2019 Inactive amiodarone 200 mg tablet RxNorm: 348002 2 Tablet(s) PO BID No Start Date 10/09/2018 Inactive furosemide 20 mg tablet RxNorm: 445649 1 Tablet(s) PO QD No Start D ate 08/12/2018 Inactive amiodarone 200 mg tablet RxNorm: 754114 1 Tablet(s) PO BID No Start Date 08/26/2018 Inactive atorvastatin 40 mg tablet RxNorm: 061917 1 Tablet(s) PO QD No Start Date 08/12/2018 Inactive warfarin 5 mg tablet RxNorm: 188729 1/2 Tablet(s) PO on Mon, Wed, Fri, Sun then 1 tablet on Sun, Th, Sat No Start Date 04/22/2019 Inactive Medication Administered No Medication Administered data Immunizations Vaccine Codes Date Status Pneumovax CVX: 33 05/14/2019 Hepatitis A CVX: 83 03/25/2019 Influenza CVX: 135 03/25/2019 Results Observation Observation Code Item Item Code Result Date S vice Location UA W/MICR 20598 UA Urine Appear Normal 02/06/2018 Unk nown UA W/MICR 43183 UA Protein 3+ 02/06/2018 Unknown UA W/MICR 54418 UA Hemoglobin Trace 02/06/2018 Unkno wn UA W/MICR 59473 UA Glucose Negative 02/06/2018 Unknown UA W/MICR 65926 UA Ketones Negative 02/06/2018 Unknown UA W/MICR 77772 UA pH 5.5 02/06/2018 Unknown UA W/MICR 88284 U Spec [place] 1.025 02/06/2018 Unkn own UA W/MICR 50320 UA Bilirubin Negative 02/06/2018 Unknow n UA W/MICR 51104 UA Leuk Esteras Trace 02/06/2018 Unk nown UA W/MICR 43171 UA Nitrite NEG 02/06/2018 Unknown UA W/MICR 47996 UA WBC/hpf 11-25 02/06/2018 Unknown UA W/MICR 45830 UA RBC hpf 0-5 02/06/2018 Unknown UA W/MICR 49642 UA Hyaline Cast 16-25 02/06/2018 Unk nown UA W/MICR 57766 UA Squam Epi Few 02/06/2018 Unknow n Procedures Procedure Codes Date URINALYSIS NONAUTO W/O SCOPE CPT-4: 56059 03/18/2019 URINE CULTURE/ COLONY COUNT CPT-4: 11268 03/18/2019 URINALYSIS NONAUTO W/O SCOPE CPT-4: 04986 12/12/2018 URINE CULTURE/ COLONY COUNT CPT-4: 21572 03/26/2018 URINALYSIS NONAUTO W/O SCOPE CPT-4: 97110 03/15/2018 INITIAL PREVENTIVE EXAM CPT-4: G0402 02/26/2018 URINALYSIS NONAUTO W/O SCOPE CPT-4: 87429 02/06/2018 URINE CULTURE/ COLONY COUNT CPT-4: 75984 02/06/2018 UA W/MICR CPT-4: 97291 02/06/2018 CUR TOBACCO NON-USER CPT-4: G8457 01/30/2018 REPAIR BLADDER & VAGINA CPT-4: 21645 01/06/2017 REPAIR OF RECTOCELE CPT-4: 70087 01/06/2017 BREAST SURGERY PROCEDURE CPT-4: 58553 Unknown LAPARO CHOLECYSTECTOMY/EXPLR CPT-4: 69074 Unknown HYSTERECTOMY/REVISE VAGINA CPT-4: 42314 Unknown Vital Signs Date Vital 08/26/2019 Blood Pressure 1: 112/64 Code: 8480-6 [...] 1: 106/58 Code: 8480-6 BMI: 26.3 Code: 77756-1 Heart Rate 1: 72 bpm Height: 4'10" Respiratory Rate: 20 bpm SpO2: 97% Tempera ture: 36.6 (C) / 97.8 (F) Weight: 128 lbs 07/10/2018 Blood Pressure 1: 122/70 Code: 8480-6 BMI: 28.6 Code: 35567-4 Heart Rate 1: 80 bpm Height: 4'10" Respiratory Rate: 20 bpm SpO2: 96% Tempera ture: 36.9 (C) / 98.4 (F) Weight: 139 lbs 05/06/2018 Blood Pressure 1: 112/54 Code: 8480-6 BMI: 27.5 Code: 53742-3 Heart Rate 1: 80 bpm Height: 4'10" [...] 1: 146/80 Code: 8480-6 BMI: 30.0 Code: 77363-8 Heart Rate 1: 76 bpm Height: 4'10" Respiratory Rate: 20 bpm SpO2: 97% Tempera ture: 36.7 (C) / 98.1 (F) Weight: 146 lbs 02/26/2018 Blood Pressure 1: 126/80 Code: 8480-6 BMI: 29.6 Code: 30085-5 Heart Rate 1: 80 bpm Height: 4'10" Respiratory Rate: 18 bpm SpO2: 96% Tempera ture: 37.0 (C) / 98.6 (F) Weight: 144 lbs 01/30/2018 Blood Pressure 1: 120/78 Code: 8480-6 BMI: 29.6 Code: 85937-7 Heart Rate 1: 84 bpm Height: 4'10" Respiratory Rate: 20 bpm SpO2: 97% Tempera ture: 36.0 (C) / 96.8 (F) Weight: 144 lbs Functional Status No Functional Status data Reason For Visit Reason For Visit Effective Dates Notes abdominal pain 08/26/2019 follow up 05/07/2019 follow up 04/23/2019 [facility] abdominal pain 03/27/2019 left lower [...] of any issues follow up 07/10/2018 Hospital/ER fw follow up 05/06/2018 [facility] abdominal pain 04/17/2018 follow up 03/26/2018 dizziness 03/15/2018 Patient had bladder biopsy on Sunday by Dr Noonan. states she has been holding her coumadin since Sunday insomnia 02/26/2018 blood in urine 02/06/2018 ~generic 01/30/2018 Establishing Care Encounters Encounter Performer Location Codes Date ([id number]) OFFICE/OUTPATIENT VISIT EST Diagnosis: Sigmoid diverticulitis[ICD10: K57.32] Jalyn LEIGH MARIA ELENA JaniceRuben BULLAUGIEANIBAL [employer] [facility] CPT-4: 60252 08/26/2019 ([id number]) OFFICE/OUTPATIENT VISIT EST Diagnosis: Clostridium difficile colitis[ICD10: A04.72] Jalyn Bullmarques VÁSQUEZJALYN JaniceRuben [employer] [facility] CPT-4: 31246 05/07/2019 ([id number]) OFFICE/OUTPATIENT VISIT EST Diagnosis: Clostridium difficile colitis[ICD10: A04.72] Diagnosis: Edema[ICD10: R60.9] Jalyn Bullmarques DOUGHERTY JaniceRuben [employer] [facility] CPT-4: 26769 04/23/2019 ([id number]) OFFICE/OUTPATIENT VISIT EST Diagnosis: Constipation[ICD10: K59.00] Diagnosis: Left lower quadrant pain[ICD10: R10.32] Bhavna Avaosman YAO JaniceRuben [employer] [facility] CPT-4: 54754 03/27/2019 ([id number]) OFFICE/OUTPATIENT VISIT EST Diagnosis: Acute kidney failure, unspecified[ICD10: N17.9] Jalyn Bullmarques VÁSQUEZJALYN JaniceRuben DAPHNE [employer] [facility] CPT-4: 71387 03/18/2019 ([id number]) OFFICE/OUTPATIENT VISIT EST Diagnosis: Essential (primary) hypertension[ICD10: I10] Diagnosis: Chronic atrial fibrillation[ICD10: I48.2] Diagnosis: Mixed hyperlipidemia[ICD10: E78.2] Diagnosis: Other fatigue[ICD10: R53.83] Diagnosis: Abdominal distension (gaseous)[ICD10: R14.0] Jalyn DOUGHERTY JaniceRuben DAPHNE [employer] [facility] CPT-4: 05623 02/12/2019 ([id number]) OFFICE/OUTPATIENT VISIT EST Diagnosis: Low back pain[ICD10: M54.5] Bhavna DOUGHERTY S. Michelle JOE [facility] CPT-4: 30827 12/25/2018 ([id number]) OFFICE/OUTPATIENT VISIT EST Diagnosis: Low back pain[ICD10: M54.5] Bhavna JOE DO [facility] CPT-4: 10042 12/12/2018 ([id number]) OFFICE/OUTPATIENT VISIT EST Diagnosis: Anemia, unspecified[ICD10: D64.9] Diagnosis: Chronic atrial fibrillation[ICD10: I48.2] Diagnosis: Other fatigue[ICD10: R53.83] Jalyn DAILY DO [facility] CPT-4: 63448 10/10/2018 ([id number]) OFFICE/OUTPATIENT VISIT EST Diagnosis: Acute on chronic combined systolic (congestive) and diastolic (congestive) heart failure[ICD10: I50.43] Diagnosis: Chronic atrial fibrillation[ICD10: I48.2] Jalyn DAILY DO [facility] CPT-4: 58403 08/27/2018 ([id number]) OFFICE/OUTPATIENT VISIT EST Diagnosis: Chronic atrial fibrillation[ICD10: I48.2] 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] Diagnosis: correction (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[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] Jalyn DAILY DO [facility] CPT-4: 68016 08/13/2018 ([id number]) OFFICE/OUTPATIENT VISIT EST Diagnosis: Acute on chronic combined systolic (congestive) and diastolic (congestive) heart failure[ICD10: I50.43] Diagnosis: Essential (primary) hypertension[ICD10: I10] Diagnosis: Anemia, unspecified[ICD10: D64.9] Jalyn DAILY DO [facility] CPT-4: 69641 07/10/2018 ([id number]) OFFICE/OUTPATIENT VISIT EST Diagnosis: Chronic atrial fibrillation[ICD10: I48.2] Diagnosis: Acute on chronic combined systolic (congestive) and diastolic (congestive) heart failure[ICD10: I50.43] Diagnosis: Localized edema[ICD10: R60.0] Jalyn GIBBONSLINE Reese DAILY DO [facility] CPT-4: 27059 05/06/2018 ([id number]) OFFICE/OUTPATIENT VISIT EST Diagnosis: Generalized abdominal pain[ICD10: R10.84] Diagnosis: Pelvic and perineal pain[ICD10: R10.2] Diagnosis: Localized edema[ICD10: R60.0] Bhavna DAILY DO [facility] CPT-4: 31593 04/17/2018 ([id number]) OFFICE/OUTPATIENT VISIT EST Diagnosis: Urinary tract infection, site not specified[ICD10: N39.0] Diagnosis: Other insomnia[ICD10: G47.09] Diagnosis: Other fatigue[ICD10: R53.83] Diagnosis: Other forms of dyspnea[ICD10: R06.09] Diagnosis: Chronic atrial fibrillation[ICD10: I48.2] Diagnosis: Restless legs syndrome[ICD10: G25.81] Jalyn DAILY [employer] [facility] CPT-4: 23519 03/26/2018 ([id number]) OFFICE/OUTPATIENT VISIT EST Diagnosis: Altered mental status, unspecified[ICD10: R41.82] Diagnosis: manager terminal (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[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] Diagnosis: Hematuria, unspecified[ICD10: R31.9] Bhavna DAILY [employer] [facility] CPT-4: 83269 03/15/2018 ([id number]) NURSE/OUTPATIENT VISIT EST Diagnosis: Urinary tract infection, site not specified[ICD10: N39.0] Jalyn DAILY [employer] [facility] CPT-4: 68863 02/06/2018 OFFICE/OUTPATIENT VISIT NEW Diagnosis: correction (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[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] Diagnosis: Essential (primary) hypertension[ICD10: I10] Diagnosis: Mixed hyperlipidemia[ICD10: E78.2] Diagnosis: Other fatigue[ICD10: R53.83] Diagnosis: Cardiac arrhythmia, unspecified[ICD10: I49.9] Diagnosis: Generalized abdominal pain[ICD10: R10.84] Diagnosis: Urinary tract infection, site not specified[ICD10: N39.0] Diagnosis: Other insomnia[ICD10: G47.09] Bhavna DAILY [employer] [facility] CPT-4: 33026 01/30/2018 Plan of Care Planned Activity Notes Codes Status Date Care Plan: COMPREHEN METAB[place] : 64816-7 Pending 09/22/2019 Care Plan: COMPLETE CBC W/AUTO DIFF WBC LOINC : 38765-4 Pending 09/22/2019 Appointment: Bhavna Escalante [address] [facility] pt. feeling better and still had [...] : K57.32 08/26/2019 Appointment: Jalyn Daily WPtel: [address] [place] [address] ACUTE ILLNESS 08/26/2019 Appointment: Jalyn Daily WPtel: [address] [place] [address] originally 4 mo follow up CANCELED 2018 Visit Diagnosis Plan: Clostridium difficile colitis Di scussion: Vancomycin daily for another week then 125mg every 3 days for 1 month then stop Fwup in September ICD-9 : 008.45 ICD-10 : A04.72 05/07/2019 Appointment: Jalyn Daily WPtel: [address] [place] [address] FOLLOW UP 05/07/2019 Visit Diagnosis Plan: Clostridium [...] : R60.9 04/23/2019 Appointment: Jalyn Daily WPtel: [address] [place], [place] [phone] Hospital Follow Up 04/23/2019 Appointment: Bhavna Escalante [address] [facility] US CANCELED 04/15/2019 Visit Diagnosis Plan: Left lower quadrant pain Discuss ion: will start with abdominal xray to rule out acute obstruction/constipation. if no acute findings, will treat as diverticulitis due to patient's past history. ICD-9 : 789.04 ICD-10 : R10.32 03/27/2019 Appointment: Bhavna Escalante [address] [facility] ACUTE ILLNESS 03/27/2019 Visit Diagnosis Plan: Acute kidney failure, unspecifie d Discussion: Was given Meloxicam at urgent care--discussed no NSAIDs, hydrate, repeat Chem 7 in 1 week ICD-9 : 584.9 ICD-10 : N17.9 03/18/2019 Appointment: Jalyn Daily WPtel: [address] [place] [address] ACUTE ILLNESS 03/18/2019 Visit Diagnosis Plan: Chronic atrial fibrillation Disc ussion: Following routinely with Cardiology ICD-9 : 427.31 ICD-10 : I48.2 02/12/2019 Visit Diagnosis Plan: Abdominal distension (gaseous) D iscussion: Trial of Zenpep q AC ICD-9 : 787.3 ICD-10 : R14.0 02/12/2019 Visit Diagnosis Plan: Essential (primary) hypertension Discussion: Stable ICD-9 : 401.9 ICD-10 : I10 02/12/2019 Appointment: Jalyn Daily WPtel: [address] [place], [place] [phone] US FOLLOW UP 02/12/2019 Appointment: Bhavna Escalante [address] [place], [place] [phone] [place] Canceled per guillermina. sending for mri [...] ICD-10 : M54.5 12/25/2018 Appointment: Bhavna Escalante [address] [place], [place] [phone] ACUTE ILLNESS 12/25/2018 Visit Diagnosis Plan: Low [...] ICD-10 : M54.5 12/12/2018 Appointment: Bhavna Escalante [address] [place], [place] [phone] ACUTE ILLNESS 12/12/2018 Patient Education: cyclobenzaprine- [employer] Coupon [id number] [email or web address] Completed 12/12/2018 Appointment: Bhavna Escalante [address] [place], [place] [phone] CANCELED 12/06/2018 Visit Diagnosis Plan: Other fatigue Discussion: Increa se activity--discussed 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 ICD-9 : 780.79 ICD-10 : R53.83 10/10/2018 Visit Diagnosis Plan: Anemia, unspecified Discussion: Update CBC ICD-9 : 285.9 ICD-10 : D64.9 10/10/2018 Visit Diagnosis Plan: Chronic atrial fibrillation Disc ussion: Cardiology monitoring PT/INR Follow Up: 4 months ICD-9 : 427.31 ICD-10 : I48.2 10/10/2018 Appointment: Jalyn Daily WPtel: [phone] [facility] [place] FOLLOW UP 10/10/2018 Visit Diagnosis Plan: [...] : I48.2 08/27/2018 Appointment: [phone] [id number] [facility] 08/27/2018 Visit Diagnosis Plan: Chronic [...] : I48.2 08/13/2018 Visit Diagnosis Plan: manager terminal (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 Discussion: Increase Coumadin to 5mg po daily and repeat PT/INR in 2 weeks ICD-9 : V58.61 ICD-10 : Z79.01 08/13/2018 Appointment: [facility]alyn [facility]Ptel[facility] [phone] [id number] FO[facility] 08/13/2018 Patient Education: bumetanide- [employer] C[employer]on [id number] https://www.[employer]/samplemd/resources/getResource/61/9eg32t98-1nd8-1i82-we Completed 08/13/2018 Patient Education: levothyroxine- [employer] Coupon [phone] https://www.[employer]/samplemd/resources/getResource/61/4785665i-7631-2v78-sq Completed 08/13/2018 Patient Education: warfarin- [employer] Coupon [id number] https://www.[employer]/samplemd/resources/getResource/61/96627811-uy63-48d6-6w Completed 08/13/2018 Patient Education: pantoprazole- [employer] Coupon [phone] https://www.[employer]/samplemd/resources/getResource/61/e5259z68-76f4-15im-7n Completed 08/13/2018 Patient Education: spironolactone- [employer] Coupon 5 [id number] https://www.[employer]/sampleLotLinx/resources/getResource/61/7ku820c5-g473-4640-hk Completed 08/13/2018 Visit Diagnosis Plan: Anemia, unspecified [...] : I50.43 07/10/2018 Appointment: Jalyn Daily WPtel: [address] [place], [place] [phone] [address] FOLLOW UP 07/10/2018 Visit Diagnosis Plan: Acute on chronic c ombined systolic (congestive) and diastolic (congestive) heart failure Discussion: Much improved on entresto an d lasix See cardilogy tomorrow in [facility] Discussed restarting cardiac rehab in 3 weeks Check Chem 7 Follow Up: 2 months ICD-9 : 428.43 ICD-10 : I50.43 05/06/2018 Visit Diagnosis Plan: Chronic atrial fibrillation Disc ussion: S/P new pacemaker/defibrillator ICD-9 : 427.31 ICD-10 : I48.2 05/06/2018 Appointment: [facility]el[facility] [phone] [id number] [facility] 05/06/2018 Visit Diagnosis Plan: [...] : 782.3 ICD-10 : R60.0 04/17/2018 Appointment: Bhvana Escalante [address] ACUTE ILLNESS 04/17/2018 Patient Education: Patient Medication Summary Completed 04/17/2018 Care Plan: CT ABDOMEN W/O & W/DYE LOINC : 46740-1 Pending 04/17/2018 Care Plan: CT PELVIS W/O & W/DYE LOINC : 41890-6 Pending 04/17/2018 Appointment: Jalyn Daily WPtel: [address] [place] [address] US CANCELED 04/10/2018 Visit Diagnosis Plan: Other [...] : R53.83 03/26/2018 Appointment: Jalyn Daily WPtel: [address] [place], [place] [address] ER Follow UP 03/26/2018 Patient Education: [...] ICD-10 : R31.9 03/15/2018 Appointment: Bhavna Escalante [address] [place] [address] ACUTE ILLNESS 03/15/2018 Patient Education: Patient Medication Summary Completed 03/15/2018 Visit Diagnosis Plan: Primary insomnia Discussion: Tri al of elavil 10mg po q HS ICD-9 : 780.52 ICD-10 : F51.01 02/26/2018 Visit Diagnosis Plan: Functional dyspepsia Discussion: Increase protonix to 40mg po BID Follow Up: 1 months ICD-9 : 536.8 ICD-10 : K30 02/26/2018 Appointment: Jalyn Daily WPtel: [phone] [place] [id number] WELCOME TO MEDICARE 02/26/2018 Patient Education: Patient Medication Summary Completed 02/26/2018 Referral: Song Noonan WPtel: [phone] [facility] [place] Referral Initiated 02/19/2018 Appointment: [facility]el[facility] [phone] [facility] [facility] 02/06/2018 Patient Education: Patient Medication Summary Completed 02/06/2018 Appointment: [facility]el[facility] [phone] [facility] [place] CANCELED 02/01/2018 Care Plan: US EXAM ABDOM COMPLETE liver LOINC : 59118-6 Pending 01/31/2018 Visit Diagnosis Plan: Essential (primary) [...] ICD-10 : R53.83 01/30/2018 Visit Diagnosis Plan: 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
--- OUTSIDE RECORDS SUMMARY | 2020-02-10 14:09 | XMS REPORT | CCD ---
Author Author Riana Escalante Organization [facility] Address [address] [place] [address] Phone Unavailable Care Team Providers Care Route Sales Manager Name Role Phone PP Unavailable CCM Unavailable Summary Purpose Interface Exchange Insurance Providers Payer name Policy type / Coverage type Covered constitution party ID Effective Begin Date Effective End Date WPS MEDICARE PART B [place] Medicare Part B [id number] 2017 Unknown Cigna Medicare Part B [id number] 2017 Unknown Family History Family History data not found Social History Social History Element Codes Description Effective Dates Tobacco history SNOMED CT: 982798533 Never smoker 01/30/[address]: 027649777 Never drinks alcohol 2017 Allergies, Adverse Reactions, Alerts Substance Reaction Codes Entered Date Inactivated Date Status * NO KNOWN ENVIRONMENTAL ALLERGIES Unknown 01/30/2018 N o Inactive Date Active * NO KNOWN FOOD ALLERGIES Unknown 01/30/2018 No Inactiv e Date Active * NO KNOWN DRUG ALLERGIES Unknown 01/30/2018 No Inactiv e Date Active Problems Condition Codes Effective Dates Condition Status Sigmoid diverticulitis ICD-9: 562.11 ICD-10: K57.32 08/26/2019 [...] fibrillation ICD-9: 427.31 ICD-10: I48.2 03/26/2018 Active Essential (primary) hypertension ICD-9: 401.9 ICD-10: I10 01/30/2018 Active Mixed hyperlipidemia ICD-9: 272.2 ICD-10: E78.2 01/30/2018 Active Other fatigue ICD-9: 780.79 ICD-10: R53.83 01/30/2018 Active Low back pain ICD-9: 724.2 ICD-10: M54.5 12/12/2018 Active Anemia, unspecified ICD-9: 285.9 ICD-10: D64.9 07/10/2018 Active 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 ICD-9: 428.43 ICD-10: I50.43 05/06/2018 Active Cardiac arrhythmia, unspecified ICD-9: 427.9 ICD-10: I49.9 01/30/2018 Active 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 ICD-9: 428.42 ICD-10: I50.42 08/13/2018 Active [facility] (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 ICD-9: [...] Start Date Stop Date Status Fill Instructions vancomycin 125 mg capsule RxNorm: 160173 2 Capsule(s) Oral Q8H 08/0909/05/2019 Active warfarin 5 mg tablet RxNorm: 548477 1 Tablet(s) Oral MW F and 1/2 tablet (2.5mg) , , Sat & Sun08/26/2019 No Stop Date Active Colace 100 mg capsule RxNorm: 1880793 1 Capsule(s) Oral QD 08/26/19 20 11/24/2019 Active levothyroxine 25 mcg tablet RxNorm: 795204 1 Tablet(s) PO QD 201910/11/2019 Active spironolactone 25 mg tablet RxNorm: 394056 TAKE 1 TABLET BY DOUGLAS TH TWICE DAILY 06/22/2019 09/19/2019 Active losartan 25 mg tablet RxNorm: 642343 TAKE 1 TABLET BY M OUTH ONCE DAILY IN THE MORNING 05/26/2019 No Stop Date Active bumetanide 1 mg tablet RxNorm: 726460 TAKE 1 TABLET BY MOUTH TWICE DAILY AT 6AM AND 6PM 05/23/2019 No Stop Date Active vancomycin 125 mg capsule RxNorm: 000003 1 Capsule(s) Oral Q3D 04/1008/25/2019 Inactive potassium chloride ER 10 mEq capsule,extended release RxNorm : 173364 1 Capsule(s) Oral QD 04/23/2019 No Stop Date Active pantoprazole 40 mg tablet,delayed release RxNorm: 645652 1-2 Ta blet(s) Oral QD 04/23/2019 05/23/2019 Inactive warfarin 5 mg tablet RxNorm: 702230 Tablet(s) Oral Take 1 tablet (5mg) by mouth on and Sun then 1/2 tablet (2.5mg) on Sun, Sun, Thurs, Sat and Sun 04/23/2019 08/25/2019 Inactive temazepam 15 mg capsule RxNorm: 636983 TAKE 1 TO 2 CAPS ULES BY MOUTH AT BEDTIME NEEDED FOR SLEEP 04/08/2019 No Stop Date Active Cipro 250 mg tablet RxNorm: 106205 1 Tablet(s) Oral two times a day 03/27/2019 04/03/2019 Inactive metronidazole 500 mg tablet RxNorm: 144311 1 Tablet(s) Oral thr ee times a day 03/27/2019 04/03/2019 Inactive bumetanide 1 mg tablet RxNorm: 462898 1 Tablet(s) PO BID (6am a nd 6pm) 02/13/2019 05/13/2019 Inactive levothyroxine 25 mcg tablet RxNorm: 562153 1 Tablet(s) PO QD 201807/13/2019 Inactive warfarin 5 mg tablet RxNorm: 115028 1 TABLET(S) PO TUES , WED, THURS, SAT AND SUN AND 1/2 TABLET ON 02/04/2019 02/11/2019 Inactive Kendra ent requests 90 days supply warfarin 5 mg tablet RxNorm: 808986 1 TABLET(S) PO TUES , WED, THURS, SAT AND SUN AND 1/2 TABLET ON 02/03/2019 02/03/2019 Inactive Kendra ent requests 90 days supply levothyroxine 25 mcg tablet RxNorm: 636063 1 Tablet(s) PO QD 201802/03/2019 Inactive warfarin 5 mg tablet RxNorm: 863180 1 Tablet(s) PO Tues , Wed, Thurs, Sat and Sun and 1/2 tablet on 01/31/2019 02/02/2019 Inactive temazepam 15 mg capsule RxNorm: 763533 TAKE 1 TO 2 CAPS ULES BY MOUTH AT BEDTIME NEEDED FOR SLEEP 01/31/2019 04/07/2019 Inactive cyclobenzaprine 10 mg tablet RxNorm: 587297 1 Tablet(s) PO Q8H as needed 12/30/2018 No Stop Date Active losartan 25 mg tablet RxNorm: 586247 1 Tablet(s) PO QAM 12/27/2018 Inactive Lidoderm 5 % topical patch RxNorm: 5397770 1 Application TOP Q12H and then off for 12 hours 12/25/2018 01/23/2019 Inactive Lidoderm 5 % topical patch RxNorm: 0642610 1 Application TOP Q12H and then off for 12 hours 12/25/2018 12/24/2018 Inactive cyclobenzaprine 5 mg tablet RxNorm: 824028 1 Tablet(s) PO Q8H a s needed 12/12/2018 12/24/2018 Inactive spironolactone 25 mg tablet RxNorm: 232727 1 Tablet(s) PO BID 09/2006/16/2019 Inactive change in directions to BID pantoprazole 40 mg tablet,delayed release RxNorm: 153235 1 Tabl et(s) PO QD 09/20/2018 04/22/2019 Inactive Patient requests 9 0 days supply spironolactone 25 mg tablet RxNorm: 297094 1 Tablet(s) PO BID 08/2609/19/2018 Inactive change in directions to BID pantoprazole 40 mg tablet,delayed release RxNorm: 626607 1 Tabl et(s) PO QD 08/15/2018 09/19/2018 Inactive Patient requests 9 0 days supply carvedilol 6.25 mg tablet RxNorm: 805937 1 Tablet(s) PO BID 019 02/08/2019 Inactive pantoprazole 40 mg tablet,delayed release RxNorm: 843221 1 Tablet(s) PO QD 1 TABLET(S) PO BID 08/13/2018 08/15/2018 Inactive Patient reque sts 90 days supply bumetanide 1 mg tablet RxNorm: 301708 1 Tablet(s) PO BID (6am a nd 6pm) 08/13/2018 02/08/2019 Inactive bumetanide 0.5 mg tablet RxNorm: 655250 1 Tablet(s) PO QPM three days a week--Sunday, Sun, Sunday instead of 1mg dose in evening 08/13/201812/2018 Inactive levothyroxine 25 mcg tablet RxNorm: 950573 1 Tablet(s) PO QD 201801/30/2019 Inactive spironolactone 25 mg tablet RxNorm: 032262 1 Tablet(s) PO QD 201808/25/2018 Inactive losartan 25 mg tablet RxNorm: 743300 1 Tablet(s) PO QAM 08/13/2018 Inactive warfarin 5 mg tablet RxNorm: 958254 1 Tablet(s) PO QD 08/13/201808/09 Inactive pantoprazole 40 mg tablet,delayed release RxNorm: 078739 1 TABL ET(S) PO BID 08/02/2018 08/12/2018 Inactive Patient requests 9 0 days supply temazepam 15 mg capsule RxNorm: 025914 1-2 Capsule(s) P O QHS as needed for sleep 2018 01/31/2019 Inactive Restoril 15 mg capsule RxNorm: 477953 1-2 Capsule(s) PO QHS as needed for sleep 06/04/2018 08/12/2018 Inactive potassium chloride ER 10 mEq capsule,extended release RxNorm : 529687 2 CAPSULE(S) PO QD 05/07/2018 08/04/2018 Inactive Patient reque sts 90 days supply temazepam 22.5 mg capsule RxNorm: 810162 1 Capsule(s) P O QHS as needed for sleep 05/06/2018 08/12/2018 Inactive potassium chloride ER 10 mEq capsule,extended release RxNorm : 997005 2 Capsule(s) PO QD 05/06/2018 05/06/2018 Inactive ropinirole 1 mg tablet RxNorm: 793339 1 TABLET(S) PO QHS FOR RE STLESS LEGS 03/27/2018 04/25/2018 Inactive Patient requests 9 0 days supply ropinirole 1 mg tablet RxNorm: 341486 1 Tablet(s) PO QHS for re stless legs 03/26/2018 03/26/2018 Inactive cefdinir 300 mg capsule RxNorm: 324645 1 Capsule(s) PO BID 03/26/20 18 03/30/2018 Inactive temazepam 15 mg capsule RxNorm: 560180 1 Capsule(s) PO QHS as neede d 03/20/2018 03/25/2018 Inactive Lunesta 3 mg tablet RxNorm: 914873 1 Tablet(s) PO QHS as needed for sleep 03/04/2018 03/19/2018 Inactive amitriptyline 10 mg tablet RxNorm: 539072 1 Tablet(s) PO QHS fo r sleep 02/26/2018 03/03/2018 Inactive escitalopram 20 mg tablet RxNorm: 607601 1 Tablet(s) PO QHS 018 08/12/2018 Inactive pantoprazole 40 mg tablet,delayed release RxNorm: 355600 1 Tabl et(s) PO BID 02/26/2018 04/26/2018 Inactive Coumadin 2.5 mg tablet RxNorm: 223240 1 Tablet(s) PO MWF 02/18/2018 0 07/22/2018 Inactive amiodarone 200 mg tablet RxNorm: 558055 1 Tablet(s) PO QD No Start Da te Active colestipol 1 gram tablet RxNorm: 4661263 1 Tablet(s) PO BID No Start Date Active pantoprazole 40 mg tablet,delayed release RxNorm: 644364 1 Tabl et(s) PO QD No Start Date Active pantoprazole 40 mg tablet,delayed release RxNorm: 813586 1 Tabl et(s) PO QD No Start Date 02/25/2018 Inactive bumetanide 1 mg tablet RxNorm: 015568 1 Tablet(s) PO BID (6am a nd 6pm) No Start Date 08/12/2018 Inactive potassium chloride ER 10 mEq tablet,extended release RxNorm: 112849 1 Tablet(s) PO QD No Start Date 02/11/2019 Inactive levothyroxine 25 mcg tablet RxNorm: 234645 1 Tablet(s) PO QD No Sta rt Date 08/12/2018 Inactive spironolactone 25 mg tablet RxNorm: 399087 1 Tablet(s) PO QD No Sta rt Date 08/12/2018 Inactive warfarin 5 mg tablet RxNorm: 118563 1 Tablet(s) PO MWF No Start Date 08/12/2018 Inactive warfarin 5 mg tablet RxNorm: 208693 1 Tablet(s) PO Tu , Wed, Th, Sat and Sun then 1/2 tablet (2.5mg) on Mon & Fri No Start Date 08/12/2018 Inactive losartan 25 mg tablet RxNorm: 003452 1 Tablet(s) PO QAM No Start Da te 08/12/2018 Inactive carvedilol 6.25 mg tablet RxNorm: 090496 1 Tablet(s) PO BID No Star t Date 08/12/2018 Inactive warfarin 2.5 mg tablet RxNorm: 730667 1 Tablet(s) PO Tues, Thur s, Sat and Sun No Start Date 08/12/2018 Inactive Coumadin 2.5 mg tablet RxNorm: 195304 Tablet(s) Mon Sun and Fri PO No Start Date 02/17/2018 Inactive Children's Multivitamin with Iron tablet RxNorm: 1 Table t(s) PO QD No Start Date 04/22/2019 Inactive potassium chloride ER 20 mEq tablet,extended release(p art/cryst) RxNorm: 5816290 2 Tablet(s) PO QD No Start Date 05/05/2018 Inactive Coumadin 5 mg tablet RxNorm: 500432 Tablet(s) PO No Start Date 2017 Inactive mexiletine 200 mg capsule RxNorm: 7018571 1 Capsule(s) PO BID No St art Date 03/25/2018 Inactive ferrous sulfate 325 mg (65 mg iron) tablet RxNorm: 827347 1 Tab let(s) PO QD No Start Date 07/22/2018 Inactive cyclobenzaprine 10 mg tablet RxNorm: 280328 1 Tablet(s) PO Q8H as needed No Start Date 12/29/2018 Inactive potassium chloride ER 10 mEq capsule,extended release RxNorm : 733445 2 Capsule(s) PO QD No Start Date 12/11/2018 Inactive Coumadin 5 mg tablet RxNorm: 808995 1 Tablet(s) PO Tues, Thurs, Sat and Sun No Start Date 07/22/2018 Inactive Restoril 15 mg capsule RxNorm: 108263 1-2 Capsule(s) PO QHS as needed for sleep No Start Date 05/05/2018 Inactive metoprolol succinate ER 25 mg tablet,extended release 24 hr RxNorm: 076134 1 Tablet(s) PO QD No Start Date 08/12/2018 Inactive Entresto 24 mg-26 mg tablet RxNorm: 6818261 1 Tablet(s) PO BID No S tart Date 08/12/2018 Inactive warfarin 5 mg tablet RxNorm: 918557 1 Tablet(s) PO Tues , Wed, Thurs, Sat and Sun and 1/2 tablet on Sun/Fri No Start Date 01/30/2019 Inactive amiodarone 200 mg tablet RxNorm: 867641 2 Tablet(s) PO BID No Start Date 10/09/2018 Inactive furosemide 20 mg tablet RxNorm: 807688 1 Tablet(s) PO QD No Start D ate 08/12/2018 Inactive amiodarone 200 mg tablet RxNorm: 275665 1 Tablet(s) PO BID No Start Date 08/26/2018 Inactive atorvastatin 40 mg tablet RxNorm: 245981 1 Tablet(s) PO QD No Start Date 08/12/2018 Inactive warfarin 5 mg tablet RxNorm: 001162 1/2 Tablet(s) PO on Mon, Wed, Fri, Sun then 1 tablet on Sun, Th, Sat No Start Date 04/22/2019 Inactive Medication Administered No Medication Administered data Immunizations Vaccine Codes Date Status Pneumovax CVX: 33 05/14/2019 Hepatitis A CVX: 83 03/25/2019 Influenza CVX: 135 03/25/2019 Results Observation Observation Code Item Item Code Result Date S vice Location UA W/MICR 74471 UA Urine Appear Normal 02/06/2018 Unk nown UA W/MICR 04295 UA Protein 3+ 02/06/2018 Unknown UA W/MICR 49618 UA Hemoglobin Trace 02/06/2018 Unkno wn UA W/MICR 56340 UA Glucose Negative 02/06/2018 Unknown UA W/MICR 64796 UA Ketones Negative 02/06/2018 Unknown UA W/MICR 70814 UA pH 5.5 02/06/2018 Unknown UA W/MICR 49140 U Spec [place] 1.025 02/06/2018 Unkn own UA W/MICR 88728 UA Bilirubin Negative 02/06/2018 Unknow n UA W/MICR 19018 UA Leuk Esteras Trace 02/06/2018 Unk nown UA W/MICR 99691 UA Nitrite NEG 02/06/2018 Unknown UA W/MICR 30360 UA WBC/hpf 11-25 02/06/2018 Unknown UA W/MICR 32335 UA RBC hpf 0-5 02/06/2018 Unknown UA W/MICR 39882 UA Hyaline Cast 16-25 02/06/2018 Unk nown UA W/MICR 33830 UA Squam Epi Few 02/06/2018 Unknow n Procedures Procedure Codes Date URINALYSIS NONAUTO W/O SCOPE CPT-4: 34880 03/18/2019 URINE CULTURE/ COLONY COUNT CPT-4: 77550 03/18/2019 URINALYSIS NONAUTO W/O SCOPE CPT-4: 30862 12/12/2018 URINE CULTURE/ COLONY COUNT CPT-4: 72407 03/26/2018 URINALYSIS NONAUTO W/O SCOPE CPT-4: 63093 03/15/2018 INITIAL PREVENTIVE EXAM CPT-4: G0402 02/26/2018 URINALYSIS NONAUTO W/O SCOPE CPT-4: 81946 02/06/2018 URINE CULTURE/ COLONY COUNT CPT-4: 11350 02/06/2018 UA W/MICR CPT-4: 49443 02/06/2018 CUR TOBACCO NON-USER CPT-4: G8457 01/30/2018 REPAIR BLADDER & VAGINA CPT-4: 50644 01/06/2017 REPAIR OF RECTOCELE CPT-4: 77756 01/06/2017 BREAST SURGERY PROCEDURE CPT-4: 78559 Unknown LAPARO CHOLECYSTECTOMY/EXPLR CPT-4: 01946 Unknown HYSTERECTOMY/REVISE VAGINA CPT-4: 29975 Unknown Vital Signs Date Vital 08/26/2019 Blood [...] 1: 106/58 Code: 8480-6 BMI: 26.3 Code: 91611-6 Heart Rate 1: 72 bpm Height: 4'10" Respiratory Rate: 20 bpm SpO2: 97% Tempera ture: 36.6 (C) / 97.8 (F) Weight: 128 lbs 07/10/2018 Blood Pressure 1: 122/70 Code: 8480-6 BMI: 28.6 Code: 94812-4 Heart Rate 1: 80 bpm Height: 4'10" Respiratory Rate: 20 bpm SpO2: 96% Tempera ture: 36.9 (C) / 98.4 (F) Weight: 139 lbs 05/06/2018 Blood Pressure 1: 112/54 Code: 8480-6 BMI: 27.5 Code: 04784-7 Heart Rate 1: 80 bpm Height: 4'10" [...] 1: 146/80 Code: 8480-6 BMI: 30.0 Code: 80021-7 Heart Rate 1: 76 bpm Height: 4'10" Respiratory Rate: 20 bpm SpO2: 97% Tempera ture: 36.7 (C) / 98.1 (F) Weight: 146 lbs 02/26/2018 Blood Pressure 1: 126/80 Code: 8480-6 BMI: 29.6 Code: 17985-2 Heart Rate 1: 80 bpm Height: 4'10" Respiratory Rate: 18 bpm SpO2: 96% Tempera ture: 37.0 (C) / 98.6 (F) Weight: 144 lbs 01/30/2018 Blood Pressure 1: 120/78 Code: 8480-6 BMI: 29.6 Code: 92631-9 Heart Rate 1: 84 bpm Height: 4'10" Respiratory Rate: 20 bpm SpO2: 97% Tempera ture: 36.0 (C) / 96.8 (F) Weight: 144 lbs Functional Status No Functional Status data Reason For Visit Reason For Visit Effective Dates Notes abdominal pain 08/26/2019 follow up 05/07/2019 follow up 04/23/2019 [facility] abdominal pain 03/27/2019 left lower quadrant back [...] up 07/10/2018 Hospital/ER fw follow up 05/06/2018 [facility] abdominal pain 04/17/2018 follow up 03/26/2018 dizziness 03/15/2018 Patient had bladder biopsy on Sunday by Dr Noonan. states she has been holding her coumadin since Sunday insomnia 02/26/2018 blood in urine 02/06/2018 ~generic 01/30/2018 Establishing Care Encounters Encounter Performer Location Codes Date (05051) OFFICE/OUTPATIENT VISIT EST Diagnosis: Sigmoid diverticulitis[ICD10: K57.32] Jalyn LEIGH MARIA ELENA JaniceRuben BULLAUGIEANIBAL [employer] CPT-4: 88820 08/26/2019 ([id number]) OFFICE/OUTPATIENT VISIT EST Diagnosis: Clostridium difficile colitis[ICD10: A04.72] Jalyn Bullross VÁSQUEZJALYN JaniceRuben [place] [employer] CPT-4: 91244 05/07/2019 ([id number]) OFFICE/OUTPATIENT VISIT EST Diagnosis: Clostridium difficile colitis[ICD10: A04.72] Diagnosis: Edema[ICD10: R60.9] Jalyn Bullross DOUGHERTY JaniceRuben [place] [employer] CPT-4: 34575 04/23/2019 ([id number]) OFFICE/OUTPATIENT VISIT EST Diagnosis: Constipation[ICD10: K59.00] Diagnosis: Left lower quadrant pain[ICD10: R10.32] Bhavna Avaosman YAO JaniceRuben [place] [employer] CPT-4: 36292 03/27/2019 ([id number]) OFFICE/OUTPATIENT VISIT EST Diagnosis: Acute kidney failure, unspecified[ICD10: N17.9] Jalyn Bullross VÁSQUEZJALYN JaniceRuben DAPHNE [employer] CPT-4: 66542 03/18/2019 ([id number]) OFFICE/OUTPATIENT VISIT EST Diagnosis: Essential (primary) hypertension[ICD10: I10] Diagnosis: Chronic atrial fibrillation[ICD10: I48.2] Diagnosis: Mixed hyperlipidemia[ICD10: E78.2] Diagnosis: Other fatigue[ICD10: R53.83] Diagnosis: Abdominal distension (gaseous)[ICD10: R14.0] Jalyn DOUGHERTY JaniceRuben DAPHNE [employer] CPT-4: 48138 02/12/2019 ([id number]) OFFICE/OUTPATIENT VISIT EST Diagnosis: Low back pain[ICD10: M54.5] Bhavna DOUGHERTY S. Michelle [facility] CPT-4: 38033 12/25/2018 ([id number]) OFFICE/OUTPATIENT VISIT EST Diagnosis: Low back pain[ICD10: M54.5] Bhavna JOE DO [facility] CPT-4: 07021 12/12/2018 ([id number]) OFFICE/OUTPATIENT VISIT EST Diagnosis: Anemia, unspecified[ICD10: D64.9] Diagnosis: Chronic atrial fibrillation[ICD10: I48.2] Diagnosis: Other fatigue[ICD10: R53.83] Jalyn DAILY DO [facility] CPT-4: 77106 10/10/2018 ([id number]) OFFICE/OUTPATIENT VISIT EST Diagnosis: Acute on chronic combined systolic (congestive) and diastolic (congestive) heart failure[ICD10: I50.43] Diagnosis: Chronic atrial fibrillation[ICD10: I48.2] Jalyn DAILY DO [facility] CPT-4: 19280 08/27/2018 ([id number]) OFFICE/OUTPATIENT VISIT EST Diagnosis: Chronic atrial fibrillation[ICD10: I48.2] 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] 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[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] Jalyn DAILY DO [facility] CPT-4: 92516 08/13/2018 ([id number]) OFFICE/OUTPATIENT VISIT EST Diagnosis: Acute on chronic combined systolic (congestive) and diastolic (congestive) heart failure[ICD10: I50.43] Diagnosis: Essential (primary) hypertension[ICD10: I10] Diagnosis: Anemia, unspecified[ICD10: D64.9] Jalyn DAILY DO [facility] CPT-4: 97145 07/10/2018 ([id number]) OFFICE/OUTPATIENT VISIT EST Diagnosis: Chronic atrial fibrillation[ICD10: I48.2] Diagnosis: Acute on chronic combined systolic (congestive) and diastolic (congestive) heart failure[ICD10: I50.43] Diagnosis: Localized edema[ICD10: R60.0] Jalyn GIBBONSLINE Reese DAILY DO [facility] CPT-4: 97793 05/06/2018 ([id number]) OFFICE/OUTPATIENT VISIT EST Diagnosis: Generalized abdominal pain[ICD10: R10.84] Diagnosis: Pelvic and perineal pain[ICD10: R10.2] Diagnosis: Localized edema[ICD10: R60.0] Bhavna DAILY DO [facility] CPT-4: 39558 04/17/2018 ([id number]) OFFICE/OUTPATIENT VISIT EST Diagnosis: Urinary tract infection, site not specified[ICD10: N39.0] Diagnosis: Other insomnia[ICD10: G47.09] Diagnosis: Other fatigue[ICD10: R53.83] Diagnosis: Other forms of dyspnea[ICD10: R06.09] Diagnosis: Chronic atrial fibrillation[ICD10: I48.2] Diagnosis: Restless legs syndrome[ICD10: G25.81] Jalyn DAILY [employer] [facility] CPT-4: 74126 03/26/2018 ([id number]) OFFICE/OUTPATIENT VISIT EST Diagnosis: Altered mental status, unspecified[ICD10: R41.82] 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[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] Diagnosis: Hematuria, unspecified[ICD10: R31.9] Bhavna DAILY [facility] CPT-4: 88604 03/15/2018 ([id number]) NURSE/OUTPATIENT VISIT EST Diagnosis: Urinary tract infection, site not specified[ICD10: N39.0] Jalyn DAILY [facility] CPT-4: 31307 02/06/2018 OFFICE/OUTPATIENT VISIT NEW Diagnosis: [facility] (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[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] Diagnosis: Essential (primary) hypertension[ICD10: I10] Diagnosis: Mixed hyperlipidemia[ICD10: E78.2] Diagnosis: Other fatigue[ICD10: R53.83] Diagnosis: Cardiac arrhythmia, unspecified[ICD10: I49.9] Diagnosis: Generalized abdominal pain[ICD10: R10.84] Diagnosis: Urinary tract infection, site not specified[ICD10: N39.0] Diagnosis: Other insomnia[ICD10: G47.09] Bhavna DAILY [facility] CPT-4: 85369 01/30/2018 Plan of Care Planned Activity Notes Codes Status Date Visit Diagnosis Plan: Sigmoid diverticulitis Discussio n: Vancomycin Soft diet Align BID Recheck 10 days unless worsening then let us know or to ER Discussed updated colonoscopy in December when due for EGD with Dr. Salmon if has no further episodes ICD-9 : 562.11 ICD-10 : K57.32 08/26/2019 Appointment: Jalyn Daily WPtel: [address] [place], [place] [phone] originally 4 mo follow up CANCELED 2018 Visit Diagnosis Plan: Clostridium difficile colitis Di scussion: Vancomycin daily for another week then 125mg every 3 days for 1 month then stop Fwup in September ICD-9 : 008.45 ICD-10 : A04.72 05/07/2019 Appointment: Jalyn Daily WPtel: [address] [place], [place] [phone] FOLLOW UP 05/07/2019 Visit Diagnosis Plan: Edema [...] : A04.72 04/23/2019 Appointment: Jalyn Daily WPtel: [address] [place], [place] [phone] Hospital Follow Up 04/23/2019 Appointment: Bhavna Escalante [address] [facility] CANCELED 04/15/2019 Visit Diagnosis Plan: Left lower quadrant pain Discuss ion: will start with abdominal xray to rule out acute obstruction/constipation. if no acute findings, will treat as diverticulitis due to patient's past history. ICD-9 : 789.04 ICD-10 : R10.32 03/27/2019 Appointment: Bhavna Escalante [address] [facility] ACUTE ILLNESS 03/27/2019 Visit Diagnosis Plan: Acute kidney failure, unspecifie d Discussion: Was given Meloxicam at urgent care--discussed no NSAIDs, hydrate, repeat Chem 7 in 1 week ICD-9 : 584.9 ICD-10 : N17.9 03/18/2019 Appointment: Jalyn Daily WPtel: [address] [place] [address] ACUTE ILLNESS 03/18/2019 Visit Diagnosis Plan: Chronic atrial fibrillation Disc ussion: Following routinely with Cardiology ICD-9 : 427.31 ICD-10 : I48.2 02/12/2019 Visit Diagnosis Plan: Essential (primary) hypertension Discussion: Stable ICD-9 : 401.9 ICD-10 : I10 02/12/2019 Visit Diagnosis Plan: Abdominal distension (gaseous) D iscussion: Trial of Zenpep q AC ICD-9 : 787.3 ICD-10 : R14.0 02/12/2019 Appointment: Jalyn Daily WPtel: [address] [place] [address] FOLLOW UP 02/12/2019 Appointment: Bhavna Escalante [address] [place] [address] [place] Canceled per guillermina. sending for mri [...] : M54.5 12/25/2018 Appointment: Bhavna Escalante [address] [id number] ACUTE ILLNESS 12/25/2018 Visit Diagnosis Plan: Low [...] : M54.5 12/12/2018 [facility] [facility] 12/12/2018 Patient Education: cyclobenzaprine- [employer] Couchevy [id number] [email or web address]/[email or web address] Card/resources/getResource/61/[email or web address] Completed 12/12/2018 Appointment: Bhavna Escalante [address] [facility] [place] CANCELED 12/06/2018 Visit Diagnosis Plan: Anemia, [...] : R53.83 10/10/2018 Appointment: Jalyn Daily WPtel: [address] [place], [place] [phone] [place] FOLLOW UP 10/10/2018 Visit Diagnosis Plan: [...] : I50.43 08/27/2018 Appointment: Jalyn Daily WPtel: [address] [place], [place] [phone] [place] FOLLOW UP 08/27/2018 Visit Diagnosis Plan: [...] ICD-10 : I48.2 08/13/2018 Visit 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 Discussion: Increase Coumadin to 5mg po daily and repeat PT/INR in 2 weeks ICD-9 : V58.61 ICD-10 : Z79.01 08/13/2018 Appointment: [facility] [address] [facility] FO[facility] 08/13/2018 Patient Education: bumetanide- [employer] Coupon [id number] https://[email or web address]/[email or web address] Card/resources/getResource/61/[email or web address]-ad Completed 08/13/2018 Patient Education: levothyroxine- [employer] Coupon [phone] https://www.[employer]/Awareness Card/resources/getResource/61/[email or web address]-aj Completed 08/13/2018 Patient Education: warfarin- [employer] Coupon [id number] https://www.[employer]/Awareness Card/resources/getResource/61/[email or web address] Completed 08/13/2018 Patient Education: pantoprazole- [employer] Coupon [phone] https://www.[employer]/Awareness Card/resources/getResource/61/[email or web address] Completed 08/13/2018 Patient Education: spironolactone- [employer] Coupon [id number] [email or web address] Completed 08/13/2018 Visit Diagnosis Plan: Anemia, unspecified [...] : I50.43 07/10/2018 Appointment: Jalyn Daily WPtel: [address] [place] [address] FOLLOW UP 07/10/2018 Visit Diagnosis Plan: Acute [...] : I48.2 05/06/2018 Appointment: Jalyn Daily WPtel: [facility] [place] FOLLOW UP 05/06/2018 Visit Diagnosis [...] ICD-10 : R10.2 04/17/2018 Appointment: Bhavna Escalante [address] [place], [place] [id number] ACUTE ILLNESS 04/17/2018 Patient Education: Patient Medication Summary Completed 04/17/2018 Care Plan: CT ABDOMEN W/O & W/DYE LOINC : 24258-0 Pending 04/17/2018 Care Plan: CT PELVIS W/O & W/DYE LOINC : 59317-9 Pending 04/17/2018 Appointment: Jalyn Daily WPtel[facility] [facility]ED 04/10/2018 Visit Diagnosis Plan: Chronic atrial fibrillation Disc ussion: Sees cardiology next week ICD-9 : 427.31 ICD-10 : I48.2 03/26/2018 Visit Diagnosis Plan: Other fatigue Discussion: [...] : G25.81 03/26/2018 Visit Diagnosis Plan: Other forms of dyspnea Discussio n: Discussed starting pulmonary rehab vs cardiac rehab Follow Up: 1 months ICD-9 : 786.09 ICD-10 : R06.09 03/26/2018 Appointment: Jalyn Daily WPtel: [facility] [facility] Follow UP 03/26/2018 Patient Education: Patient [...] ICD-10 : R41.82 03/15/2018 Appointment: Bhavna Escalante [address] [place] [address] ACUTE ILLNESS 03/15/2018 Patient Education: Patient Medication Summary Completed 03/15/2018 Visit Diagnosis Plan: Primary insomnia Discussion: Tri al of elavil 10mg po q HS ICD-9 : 780.52 ICD-10 : F51.01 02/26/2018 Visit Diagnosis Plan: Functional dyspepsia Discussion: Increase protonix to 40mg po BID Follow Up: 1 months ICD-9 : 536.8 ICD-10 : K30 02/26/2018 Appointment: Jalyn Daily WPtel: [address] [place] [address] WELCOME TO MEDICARE 02/26/2018 Patient Education: Patient Medication Summary Completed 02/26/2018 Referral: Song Noonan WPtel: [address] [place] [address] [place] Referral Initiated 02/19/2018 Appointment: Jalyn Daily WPtel: [address] [place] [address] US LAB 02/06/2018 Patient Education: Patient Medication Summary Completed 02/06/2018 Appointment: Jalyn Daily WPtel: [address] [place] [address] US CANCELED 02/01/2018 Care Plan: US EXAM ABDOM COMPLETE liver LOINC : 09543-0 Pending 01/31/2018 Visit Diagnosis Plan: Other fatigue Discussion: will o rder fasting blood work to assess for any anemia or infection especially due to recent surgery and bleeding risks. ICD-9 : 780.79 ICD-10 : R53.83 01/30/2018 Visit Diagnosis Plan: [facility] (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 [...] ICD-10 : I10 01/30/2018 Appointment: Bhavna Escalante [address] [place], [place] [id number] NEW PATIENT 01/30/2018 Patient Education: Patient Medication Summary Completed 01/30/2018 Instructions No Instructions Medical Equipment No Medical Equipment data Health Concerns Section Health Concerns data not found Goals Section Goals data not found Interventions Section Interventions data not found Health Status Evaluations/Outcomes Section Health Status Evaluations/Outcomes data not found Advance Directives No Advance Directive data
--- OUTSIDE RECORDS SUMMARY | 2020-02-10 14:09 | XMS REPORT | CCD ---
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 Name Role Phone PP Unavailable CCM Unavailable Summary Purpose Interface Exchange Insurance Providers Payer name Policy type / Coverage type Covered republican ID Effective Begin Date Effective End Date WPS MEDICARE PART B [place] Medicare Part B [id number] 2017 Unknown Cigna Medicare Part B [id number] 2017 Unknown Family History Family History data not found Social History Social History Element Codes Description Effective Dates Tobacco history SNOMED CT: 680621872 Never smoker 01/30/[address]: 967598847 Never drinks alcohol 2017 Allergies, Adverse Reactions, [...] failure ICD-9: 428.42 ICD-10: I50.42 08/13/2018 Active FPC (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 ICD-9: V58.6 1 [...] Fill Instructions vancomycin 125 mg capsule RxNorm: 764334 2 Capsule(s) Oral Q8H 08/0909/05/2019 Active warfarin 5 mg tablet RxNorm: 903176 1 Tablet(s) Oral MW F and 1/2 tablet (2.5mg) , , Sat & Sun08/26/2019 No Stop Date Active Colace 100 mg capsule RxNorm: 8380807 1 Capsule(s) Oral QD 08/26/19 20 11/24/2019 Active levothyroxine 25 mcg tablet RxNorm: 852988 1 Tablet(s) PO QD 201910/11/2019 Active spironolactone 25 mg tablet RxNorm: 129031 TAKE 1 TABLET BY DOUGLAS TH TWICE DAILY 06/22/2019 09/19/2019 Active losartan 25 mg tablet RxNorm: 330207 TAKE 1 TABLET BY M OUTH ONCE DAILY IN THE MORNING 05/26/2019 No Stop Date Active bumetanide 1 mg tablet RxNorm: 671646 TAKE 1 TABLET BY MOUTH TWICE DAILY AT 6AM AND 6PM 05/23/2019 No Stop Date Active vancomycin 125 mg capsule RxNorm: 933200 1 Capsule(s) Oral Q3D 04/1008/25/2019 Inactive potassium chloride ER 10 mEq capsule,extended release RxNorm : 872958 1 Capsule(s) Oral QD 04/23/2019 No Stop Date Active pantoprazole 40 mg tablet,delayed release RxNorm: 569420 1-2 Ta blet(s) Oral QD 04/23/2019 05/23/2019 Inactive warfarin 5 mg tablet RxNorm: 925624 Tablet(s) Oral Take 1 tablet (5mg) by mouth on and Sun then 1/2 tablet (2.5mg) on Sun, Sun, Thurs, Sat and Sun 04/23/2019 08/25/2019 Inactive temazepam 15 mg capsule RxNorm: 994481 TAKE 1 TO 2 CAPS ULES BY MOUTH AT BEDTIME NEEDED FOR SLEEP 04/08/2019 No Stop Date Active Cipro 250 mg tablet RxNorm: 235142 1 Tablet(s) Oral two times a day 03/27/2019 04/03/2019 Inactive metronidazole 500 mg tablet RxNorm: 366883 1 Tablet(s) Oral thr ee times a day 03/27/2019 04/03/2019 Inactive bumetanide 1 mg tablet RxNorm: 627190 1 Tablet(s) PO BID (6am a nd 6pm) 02/13/2019 05/13/2019 Inactive levothyroxine 25 mcg tablet RxNorm: 417991 1 Tablet(s) PO QD 201807/13/2019 Inactive warfarin 5 mg tablet RxNorm: 785366 1 TABLET(S) PO TUES , WED, THURS, SAT AND SUN AND 1/2 TABLET ON 02/04/2019 02/11/2019 Inactive Kendra ent requests 90 days supply warfarin 5 mg tablet RxNorm: 116500 1 TABLET(S) PO TUES , WED, THURS, SAT AND SUN AND 1/2 TABLET ON 02/03/2019 02/03/2019 Inactive Kendra ent requests 90 days supply levothyroxine 25 mcg tablet RxNorm: 189747 1 Tablet(s) PO QD 201802/03/2019 Inactive warfarin 5 mg tablet RxNorm: 821557 1 Tablet(s) PO Tues , Wed, Thurs, Sat and Sun and 1/2 tablet on 01/31/2019 02/02/2019 Inactive temazepam 15 mg capsule RxNorm: 410254 TAKE 1 TO 2 CAPS ULES BY MOUTH AT BEDTIME NEEDED FOR SLEEP 01/31/2019 04/07/2019 Inactive cyclobenzaprine 10 mg tablet RxNorm: 975290 1 Tablet(s) PO Q8H as needed 12/30/2018 No Stop Date Active losartan 25 mg tablet RxNorm: 338367 1 Tablet(s) PO QAM 12/27/2018 Inactive Lidoderm 5 % topical patch RxNorm: 0137296 1 Application TOP Q12H and then off for 12 hours 12/25/2018 01/23/2019 Inactive Lidoderm 5 % topical patch RxNorm: 8244018 1 Application TOP Q12H and then off for 12 hours 12/25/2018 12/24/2018 Inactive cyclobenzaprine 5 mg tablet RxNorm: 165593 1 Tablet(s) PO Q8H a s needed 12/12/2018 12/24/2018 Inactive spironolactone 25 mg tablet RxNorm: 469890 1 Tablet(s) PO BID 09/2006/16/2019 Inactive change in directions to BID pantoprazole 40 mg tablet,delayed release RxNorm: 633041 1 Tabl et(s) PO QD 09/20/2018 04/22/2019 Inactive Patient requests 9 0 days supply spironolactone 25 mg tablet RxNorm: 388438 1 Tablet(s) PO BID 08/2609/19/2018 Inactive change in directions to BID pantoprazole 40 mg tablet,delayed release RxNorm: 052263 1 Tabl et(s) PO QD 08/15/2018 09/19/2018 Inactive Patient requests 9 0 days supply carvedilol 6.25 mg tablet RxNorm: 086966 1 Tablet(s) PO BID 019 02/08/2019 Inactive pantoprazole 40 mg tablet,delayed release RxNorm: 614317 1 Tablet(s) PO QD 1 TABLET(S) PO BID 08/13/2018 08/15/2018 Inactive Patient reque sts 90 days supply bumetanide 1 mg tablet RxNorm: 682827 1 Tablet(s) PO BID (6am a nd 6pm) 08/13/2018 02/08/2019 Inactive bumetanide 0.5 mg tablet RxNorm: 035290 1 Tablet(s) PO QPM three days a week--Sunday, Sun, Sunday instead of 1mg dose in evening 08/13/201812/2018 Inactive levothyroxine 25 mcg tablet RxNorm: 806942 1 Tablet(s) PO QD 201801/30/2019 Inactive spironolactone 25 mg tablet RxNorm: 060572 1 Tablet(s) PO QD 201808/25/2018 Inactive losartan 25 mg tablet RxNorm: 473716 1 Tablet(s) PO QAM 08/13/2018 Inactive warfarin 5 mg tablet RxNorm: 457048 1 Tablet(s) PO QD 08/13/201808/09 Inactive pantoprazole 40 mg tablet,delayed release RxNorm: 214408 1 TABL ET(S) PO BID 08/02/2018 08/12/2018 Inactive Patient requests 9 0 days supply temazepam 15 mg capsule RxNorm: 485221 1-2 Capsule(s) P O QHS as needed for sleep 2018 01/31/2019 Inactive Restoril 15 mg capsule RxNorm: 984543 1-2 Capsule(s) PO QHS as needed for sleep 06/04/2018 08/12/2018 Inactive potassium chloride ER 10 mEq capsule,extended release RxNorm : 560050 2 CAPSULE(S) PO QD 05/07/2018 08/04/2018 Inactive Patient reque sts 90 days supply temazepam 22.5 mg capsule RxNorm: 871426 1 Capsule(s) P O QHS as needed for sleep 05/06/2018 08/12/2018 Inactive potassium chloride ER 10 mEq capsule,extended release RxNorm : 415022 2 Capsule(s) PO QD 05/06/2018 05/06/2018 Inactive ropinirole 1 mg tablet RxNorm: 389804 1 TABLET(S) PO QHS FOR RE STLESS LEGS 03/27/2018 04/25/2018 Inactive Patient requests 9 0 days supply ropinirole 1 mg tablet RxNorm: 454409 1 Tablet(s) PO QHS for re stless legs 03/26/2018 03/26/2018 Inactive cefdinir 300 mg capsule RxNorm: 248839 1 Capsule(s) PO BID 03/26/20 18 03/30/2018 Inactive temazepam 15 mg capsule RxNorm: 293049 1 Capsule(s) PO QHS as neede d 03/20/2018 03/25/2018 Inactive Lunesta 3 mg tablet RxNorm: 365198 1 Tablet(s) PO QHS as needed for sleep 03/04/2018 03/19/2018 Inactive amitriptyline 10 mg tablet RxNorm: 738695 1 Tablet(s) PO QHS fo r sleep 02/26/2018 03/03/2018 Inactive escitalopram 20 mg tablet RxNorm: 717658 1 Tablet(s) PO QHS 018 08/12/2018 Inactive pantoprazole 40 mg tablet,delayed release RxNorm: 609968 1 Tabl et(s) PO BID 02/26/2018 04/26/2018 Inactive Coumadin 2.5 mg tablet RxNorm: 859009 1 Tablet(s) PO MWF 02/18/2018 0 07/22/2018 Inactive amiodarone 200 mg tablet RxNorm: 092194 1 Tablet(s) PO QD No Start Da te Active colestipol 1 gram tablet RxNorm: 0527837 1 Tablet(s) PO BID No Start Date Active pantoprazole 40 mg tablet,delayed release RxNorm: 892185 1 Tabl et(s) PO QD No Start Date Active pantoprazole 40 mg tablet,delayed release RxNorm: 336101 1 Tabl et(s) PO QD No Start Date 02/25/2018 Inactive bumetanide 1 mg tablet RxNorm: 339050 1 Tablet(s) PO BID (6am a nd 6pm) No Start Date 08/12/2018 Inactive potassium chloride ER 10 mEq tablet,extended release RxNorm: 727764 1 Tablet(s) PO QD No Start Date 02/11/2019 Inactive levothyroxine 25 mcg tablet RxNorm: 965339 1 Tablet(s) PO QD No Sta rt Date 08/12/2018 Inactive spironolactone 25 mg tablet RxNorm: 007375 1 Tablet(s) PO QD No Sta rt Date 08/12/2018 Inactive warfarin 5 mg tablet RxNorm: 837088 1 Tablet(s) PO MWF No Start Date 08/12/2018 Inactive warfarin 5 mg tablet RxNorm: 362434 1 Tablet(s) PO Tu , Wed, Th, Sat and Sun then 1/2 tablet (2.5mg) on Mon & Fri No Start Date 08/12/2018 Inactive losartan 25 mg tablet RxNorm: 820269 1 Tablet(s) PO QAM No Start Da te 08/12/2018 Inactive carvedilol 6.25 mg tablet RxNorm: 418137 1 Tablet(s) PO BID No Star t Date 08/12/2018 Inactive warfarin 2.5 mg tablet RxNorm: 403065 1 Tablet(s) PO Tues, Thur s, Sat and Sun No Start Date 08/12/2018 Inactive Coumadin 2.5 mg tablet RxNorm: 643803 Tablet(s) Mon Sun and Fri PO No Start Date 02/17/2018 Inactive Children's Multivitamin with Iron tablet RxNorm: 1 Table t(s) PO QD No Start Date 04/22/2019 Inactive potassium chloride ER 20 mEq tablet,extended release(p art/cryst) RxNorm: 5347261 2 Tablet(s) PO QD No Start Date 05/05/2018 Inactive Coumadin 5 mg tablet RxNorm: 750592 Tablet(s) PO No Start Date 2017 Inactive mexiletine 200 mg capsule RxNorm: 3649656 1 Capsule(s) PO BID No St art Date 03/25/2018 Inactive ferrous sulfate 325 mg (65 mg iron) tablet RxNorm: 871604 1 Tab let(s) PO QD No Start Date 07/22/2018 Inactive cyclobenzaprine 10 mg tablet RxNorm: 412041 1 Tablet(s) PO Q8H as needed No Start Date 12/29/2018 Inactive potassium chloride ER 10 mEq capsule,extended release RxNorm : 046715 2 Capsule(s) PO QD No Start Date 12/11/2018 Inactive Coumadin 5 mg tablet RxNorm: 752605 1 Tablet(s) PO Tues, Thurs, Sat and Sun No Start Date 07/22/2018 Inactive Restoril 15 mg capsule RxNorm: 057506 1-2 Capsule(s) PO QHS as needed for sleep No Start Date 05/05/2018 Inactive metoprolol succinate ER 25 mg tablet,extended release 24 hr RxNorm: 440487 1 Tablet(s) PO QD No Start Date 08/12/2018 Inactive Entresto 24 mg-26 mg tablet RxNorm: 1900532 1 Tablet(s) PO BID No S tart Date 08/12/2018 Inactive warfarin 5 mg tablet RxNorm: 946814 1 Tablet(s) PO Tues , Wed, Thurs, Sat and Sun and 1/2 tablet on Sun/Fri No Start Date 01/30/2019 Inactive amiodarone 200 mg tablet RxNorm: 676135 2 Tablet(s) PO BID No Start Date 10/09/2018 Inactive furosemide 20 mg tablet RxNorm: 142489 1 Tablet(s) PO QD No Start D ate 08/12/2018 Inactive amiodarone 200 mg tablet RxNorm: 659785 1 Tablet(s) PO BID No Start Date 08/26/2018 Inactive atorvastatin 40 mg tablet RxNorm: 292001 1 Tablet(s) PO QD No Start Date 08/12/2018 Inactive warfarin 5 mg tablet RxNorm: 466776 1/2 Tablet(s) PO on Mon, Wed, Fri, Sun then 1 tablet on Sun, Th, Sat No Start Date 04/22/2019 Inactive Medication Administered No Medication Administered data Immunizations Vaccine Codes Date Status Pneumovax CVX: 33 05/14/2019 Hepatitis A CVX: 83 03/25/2019 Influenza CVX: 135 03/25/2019 Results Observation Observation Code Item Item Code Result Date S vice Location UA W/MICR 95791 UA Urine Appear Normal 02/06/2018 Unk nown UA W/MICR 68824 UA Protein 3+ 02/06/2018 Unknown UA W/MICR 16954 UA Hemoglobin Trace 02/06/2018 Unkno wn UA W/MICR 70426 UA Glucose Negative 02/06/2018 Unknown UA W/MICR 27870 UA Ketones Negative 02/06/2018 Unknown UA W/MICR 05698 UA pH 5.5 02/06/2018 Unknown UA W/MICR 79624 U Spec Sherman 1.025 02/06/2018 Unkn own UA W/MICR 42656 UA Bilirubin Negative 02/06/2018 Unknow n UA W/MICR 30594 UA Leuk Esteras Trace 02/06/2018 Unk nown UA W/MICR 79901 UA Nitrite NEG 02/06/2018 Unknown UA W/MICR 82906 UA WBC/hpf 11-25 02/06/2018 Unknown UA W/MICR 66742 UA RBC hpf 0-5 02/06/2018 Unknown UA W/MICR 98055 UA Hyaline Cast 16-25 02/06/2018 Unk nown UA W/MICR 30888 UA Squam Epi Few 02/06/2018 Unknow n Procedures Procedure Codes Date URINALYSIS NONAUTO W/O SCOPE CPT-4: 94335 03/18/2019 URINE CULTURE/ COLONY COUNT CPT-4: 23684 03/18/2019 URINALYSIS NONAUTO W/O SCOPE CPT-4: 11434 12/12/2018 URINE CULTURE/ COLONY COUNT CPT-4: 16279 03/26/2018 URINALYSIS NONAUTO W/O SCOPE CPT-4: 76613 03/15/2018 INITIAL PREVENTIVE EXAM CPT-4: G0402 02/26/2018 URINALYSIS NONAUTO W/O SCOPE CPT-4: 39169 02/06/2018 URINE CULTURE/ COLONY COUNT CPT-4: 08742 02/06/2018 UA W/MICR CPT-4: 34614 02/06/2018 CUR TOBACCO NON-USER CPT-4: G8457 01/30/2018 REPAIR BLADDER & VAGINA CPT-4: 29434 01/06/2017 REPAIR OF RECTOCELE CPT-4: 51799 01/06/2017 BREAST SURGERY PROCEDURE CPT-4: 06191 Unknown LAPARO CHOLECYSTECTOMY/EXPLR CPT-4: 50186 Unknown HYSTERECTOMY/REVISE VAGINA CPT-4: 95448 Unknown Vital Signs Date Vital 08/26/2019 Blood [...] 1: 106/58 Code: 8480-6 BMI: 26.3 Code: 17046-1 Heart Rate 1: 72 bpm Height: 4'10" Respiratory Rate: 20 bpm SpO2: 97% Tempera ture: 36.6 (C) / 97.8 (F) Weight: 128 lbs 07/10/2018 Blood Pressure 1: 122/70 Code: 8480-6 BMI: 28.6 Code: 44107-3 Heart Rate 1: 80 bpm Height: 4'10" Respiratory Rate: 20 bpm SpO2: 96% Tempera ture: 36.9 (C) / 98.4 (F) Weight: 139 lbs 05/06/2018 Blood Pressure 1: 112/54 Code: 8480-6 BMI: 27.5 Code: 51343-4 Heart Rate 1: 80 bpm Height: 4'10" [...] 1: 146/80 Code: 8480-6 BMI: 30.0 Code: 95446-3 Heart Rate 1: 76 bpm Height: 4'10" Respiratory Rate: 20 bpm SpO2: 97% Tempera ture: 36.7 (C) / 98.1 (F) Weight: 146 lbs 02/26/2018 Blood Pressure 1: 126/80 Code: 8480-6 BMI: 29.6 Code: 73215-6 Heart Rate 1: 80 bpm Height: 4'10" Respiratory Rate: 18 bpm SpO2: 96% Tempera ture: 37.0 (C) / 98.6 (F) Weight: 144 lbs 01/30/2018 Blood Pressure 1: 120/78 Code: 8480-6 BMI: 29.6 Code: 84263-6 Heart Rate 1: 84 bpm Height: 4'10" Respiratory Rate: 20 bpm SpO2: 97% Tempera ture: 36.0 (C) / 96.8 (F) Weight: 144 lbs Functional Status No Functional Status data Reason For Visit Reason For Visit Effective Dates Notes abdominal pain 08/26/2019 follow up 05/07/2019 follow up 04/23/2019 [facility] abdominal pain 03/27/2019 left lower [...] up 07/10/2018 Hospital/ER fw follow up 05/06/2018 [facility] abdominal pain 04/17/2018 follow up 03/26/2018 dizziness 03/15/2018 Patient had bladder biopsy on Sunday by Dr Noonan. states she has been holding her coumadin since Sunday insomnia 02/26/2018 blood in urine 02/06/2018 ~generic 01/30/2018 Establishing Care Encounters Encounter Performer Location Codes Date ([id number]) OFFICE/OUTPATIENT VISIT EST Diagnosis: Sigmoid diverticulitis[ICD10: K57.32] Jalyn LEIGH MARIA ELENA JaniceRuben BULLAUGIEANIBAL [employer] [facility] CPT-4: 63134 08/26/2019 ([id number]) OFFICE/OUTPATIENT VISIT EST Diagnosis: Clostridium difficile colitis[ICD10: A04.72] Jalyn Bullross VÁSQUEZJALYN JaniceRuben [employer] [facility] CPT-4: 15531 05/07/2019 ([id number]) OFFICE/OUTPATIENT VISIT EST Diagnosis: Clostridium difficile colitis[ICD10: A04.72] Diagnosis: Edema[ICD10: R60.9] Jalyn Bullross DOUGHERTY JaniceRuben [employer] [facility] CPT-4: 77779 04/23/2019 ([id number]) OFFICE/OUTPATIENT VISIT EST Diagnosis: Constipation[ICD10: K59.00] Diagnosis: Left lower quadrant pain[ICD10: R10.32] Bhavna Avaosman YAO JaniceRuben [employer] [facility] CPT-4: 76824 03/27/2019 ([id number]) OFFICE/OUTPATIENT VISIT EST Diagnosis: Acute kidney failure, unspecified[ICD10: N17.9] Jalyn Bullross VÁSQUEZJALYN JaniceRuben DAPHNE [employer] [facility] CPT-4: 36774 03/18/2019 ([id number]) OFFICE/OUTPATIENT VISIT EST Diagnosis: Essential (primary) hypertension[ICD10: I10] Diagnosis: Chronic atrial fibrillation[ICD10: I48.2] Diagnosis: Mixed hyperlipidemia[ICD10: E78.2] Diagnosis: Other fatigue[ICD10: R53.83] Diagnosis: Abdominal distension (gaseous)[ICD10: R14.0] Jalyn DOUGHERTY JaniceRuben DAPHNE [employer] [facility] CPT-4: 12973 02/12/2019 ([id number]) OFFICE/OUTPATIENT VISIT EST Diagnosis: Low back pain[ICD10: M54.5] Bhavna DOUGHERTY S. Michelle JOE [facility] CPT-4: 52725 12/25/2018 ([id number]) OFFICE/OUTPATIENT VISIT EST Diagnosis: Low back pain[ICD10: M54.5] Bhavna JOE DO [facility] CPT-4: 50661 12/12/2018 ([id number]) OFFICE/OUTPATIENT VISIT EST Diagnosis: Anemia, unspecified[ICD10: D64.9] Diagnosis: Chronic atrial fibrillation[ICD10: I48.2] Diagnosis: Other fatigue[ICD10: R53.83] Jalyn DAILY DO [facility] CPT-4: 14040 10/10/2018 ([id number]) OFFICE/OUTPATIENT VISIT EST Diagnosis: Acute on chronic combined systolic (congestive) and diastolic (congestive) heart failure[ICD10: I50.43] Diagnosis: Chronic atrial fibrillation[ICD10: I48.2] Jalyn DAILY DO [facility] CPT-4: 61342 08/27/2018 ([id number]) OFFICE/OUTPATIENT VISIT EST Diagnosis: Chronic atrial fibrillation[ICD10: I48.2] 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] 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] Jalyn DAILY DO [facility] CPT-4: 19897 08/13/2018 ([id number]) OFFICE/OUTPATIENT VISIT EST Diagnosis: Acute on chronic combined systolic (congestive) and diastolic (congestive) heart failure[ICD10: I50.43] Diagnosis: Essential (primary) hypertension[ICD10: I10] Diagnosis: Anemia, unspecified[ICD10: D64.9] Jalyn DAILY DO [facility] CPT-4: 67525 07/10/2018 ([id number]) OFFICE/OUTPATIENT VISIT EST Diagnosis: Chronic atrial fibrillation[ICD10: I48.2] Diagnosis: Acute on chronic combined systolic (congestive) and diastolic (congestive) heart failure[ICD10: I50.43] Diagnosis: Localized edema[ICD10: R60.0] Jalyn GIBBONSLINE Reese DAILY DO [facility] CPT-4: 00383 05/06/2018 ([id number]) OFFICE/OUTPATIENT VISIT EST Diagnosis: Generalized abdominal pain[ICD10: R10.84] Diagnosis: Pelvic and perineal pain[ICD10: R10.2] Diagnosis: Localized edema[ICD10: R60.0] Bhavna DAILY DO [facility] CPT-4: 23964 04/17/2018 ([id number]) OFFICE/OUTPATIENT VISIT EST Diagnosis: Urinary tract infection, site not specified[ICD10: N39.0] Diagnosis: Other insomnia[ICD10: G47.09] Diagnosis: Other fatigue[ICD10: R53.83] Diagnosis: Other forms of dyspnea[ICD10: R06.09] Diagnosis: Chronic atrial fibrillation[ICD10: I48.2] Diagnosis: Restless legs syndrome[ICD10: G25.81] Jalyn DAILY [employer] [facility] CPT-4: 58751 03/26/2018 ([id number]) OFFICE/OUTPATIENT VISIT EST Diagnosis: Altered mental status, unspecified[ICD10: R41.82] 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] Diagnosis: Hematuria, unspecified[ICD10: R31.9] Bhavna DAILY [employer] [facility] CPT-4: 35596 03/15/2018 ([id number]) NURSE/OUTPATIENT VISIT EST Diagnosis: Urinary tract infection, site not specified[ICD10: N39.0] Jalyn DAILY [employer] [facility] CPT-4: 77410 02/06/2018 OFFICE/OUTPATIENT VISIT NEW Diagnosis: FPC (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[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] Diagnosis: Essential (primary) hypertension[ICD10: I10] Diagnosis: Mixed hyperlipidemia[ICD10: E78.2] Diagnosis: Other fatigue[ICD10: R53.83] Diagnosis: Cardiac arrhythmia, unspecified[ICD10: I49.9] Diagnosis: Generalized abdominal pain[ICD10: R10.84] Diagnosis: Urinary tract infection, site not specified[ICD10: N39.0] Diagnosis: Other insomnia[ICD10: G47.09] Bhavna DAILY [employer] [facility] CPT-4: 77435 01/30/2018 Plan of Care Planned Activity Notes Codes Status Date Visit Diagnosis Plan: Sigmoid diverticulitis Discussio n: Vancomycin Soft diet Align BID Recheck 10 days unless worsening then let us know or to ER Discussed updated colonoscopy in December when due for EGD with Dr. Salmon if has no further episodes ICD-9 : 562.11 ICD-10 : K57.32 08/26/2019 Appointment: Jalyn Daily WPtel: [address] [place], [place] [phone] originally 4 mo follow up CANCELED 2018 Visit Diagnosis Plan: Clostridium difficile colitis Di scussion: Vancomycin daily for another week then 125mg every 3 days for 1 month then stop Fwup in September ICD-9 : 008.45 ICD-10 : A04.72 05/07/2019 Appointment: Jalyn Daily WPtel: [address] [place], [place] [phone] FOLLOW UP 05/07/2019 Visit Diagnosis Plan: Edema [...] : A04.72 04/23/2019 Appointment: Jalyn Daily WPtel: [address] [place], [place] [phone] Hospital Follow Up 04/23/2019 Appointment: Bhavna Escalante [address] [facility] CANCELED 04/15/2019 Visit Diagnosis Plan: Left lower quadrant pain Discuss ion: will start with abdominal xray to rule out acute obstruction/constipation. if no acute findings, will treat as diverticulitis due to patient's past history. ICD-9 : 789.04 ICD-10 : R10.32 03/27/2019 Appointment: Bhavna Escalante [address] [facility] ACUTE ILLNESS 03/27/2019 Visit Diagnosis Plan: Acute kidney failure, unspecifie d Discussion: Was given Meloxicam at urgent care--discussed no NSAIDs, hydrate, repeat Chem 7 in 1 week ICD-9 : 584.9 ICD-10 : N17.9 03/18/2019 Appointment: Jalyn Daily WPtel: [address] [place] [address] ACUTE ILLNESS 03/18/2019 Visit Diagnosis Plan: Chronic atrial fibrillation Disc ussion: Following routinely with Cardiology ICD-9 : 427.31 ICD-10 : I48.2 02/12/2019 Visit Diagnosis Plan: Essential (primary) hypertension Discussion: Stable ICD-9 : 401.9 ICD-10 : I10 02/12/2019 Visit Diagnosis Plan: Abdominal distension (gaseous) D iscussion: Trial of Zenpep q AC ICD-9 : 787.3 ICD-10 : R14.0 02/12/2019 Appointment: Jalyn Daily WPtel: [address] [place] [address] FOLLOW UP 02/12/2019 Appointment: Bhavna Escalante [address] [place] [address] [place] Canceled per guillermina. sending for mri [...] : M54.5 12/25/2018 Appointment: Bhavna Escalante [address] [id number] ACUTE ILLNESS 12/25/2018 Visit Diagnosis Plan: Low [...] : M54.5 12/12/2018 [facility]ment[facility] [facility] 12/12/2018 Patient Education: cyclobenzaprine- [employer] Couchevy [id number] https://www.[employer]/resources/getResource/61/ts9326q2-m581-0c9h-e4 Completed 12/12/2018 Appointment: Bhavna Escalante [address] [facility] US CANCELED 12/06/2018 Visit Diagnosis Plan: Anemia, [...] : R53.83 10/10/2018 Appointment: Jalyn Daily WPtel: [address] [place], [place] [phone] [place] FOLLOW UP 10/10/2018 Visit Diagnosis Plan: [...] : I50.43 08/27/2018 Appointment: Jalyn Daily WPtel: [address] [place], [place] [phone] [place] FOLLOW UP 08/27/2018 Visit Diagnosis Plan: [...] ICD-10 : I48.2 08/13/2018 Visit 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 Discussion: Increase Coumadin to 5mg po daily and repeat PT/INR in 2 weeks ICD-9 : V58.61 ICD-10 : Z79.01 08/13/2018 Appointment: [facility] [address] [facility] [facility] 08/13/2018 Patient Education: bumetanide- [employer] Coupon [phone] https://www.[employer]/resources/getResource/61/0ov33u27-5ix4-2k18-dr Completed 08/13/2018 Patient Education: levothyroxine- [employer] Coupon [phone] https://www.[employer]/resources/getResource/61/4625889z-3894-5z97-bf Completed 08/13/2018 Patient Education: warfarin- [employer] Coupon [phone] https://www.[employer]/resources/getResource/61/24011839-mr18-21i1-8d Completed 08/13/2018 Patient Education: pantoprazole- [employer] Coupon [phone] https://www.[employer]/resources/getResource/61/h7041z71-16q6-30dj-7e Completed 08/13/2018 Patient Education: spironolactone- [employer] Coupon 5 [phone] https://www.[employer]/resources/getResource/61/2cz982v3-r254-2994-fz Completed 08/13/2018 Visit Diagnosis Plan: Anemia, unspecified [...] : I50.43 07/10/2018 Appointment: Jalyn Daily WPtel: [address] [place] [address] FOLLOW UP 07/10/2018 Visit Diagnosis Plan: Acute [...] : I48.2 05/06/2018 Appointment: Jalyn Daily WPtel: [facility] [place] FOLLOW UP 05/06/2018 Visit Diagnosis Plan: [...] ICD-10 : R10.2 04/17/2018 Appointment: Bhavna Escalante [address] [place], [place] [address] ACUTE ILLNESS 04/17/2018 Patient Education: Patient Medication Summary Completed 04/17/2018 Care Plan: CT ABDOMEN W/O & W/DYE LOINC : 80159-8 Pending 04/17/2018 Care Plan: CT PELVIS W/O & W/DYE LOINC : 86149-2 Pending 04/17/2018 Appointment: Jalyn Daily WPtel: [facility] [facility] CANC[facility]ED 04/10/2018 Visit Diagnosis Plan: [...] : R06.09 03/26/2018 Appointment: Jalyn Daily WPtel: [facility] [facility] Follow UP 03/26/2018 Patient Education: [...] ICD-10 : R41.82 03/15/2018 Appointment: Bhavna Escalante [address] [place] [address] ACUTE ILLNESS 03/15/2018 Patient Education: Patient Medication Summary Completed 03/15/2018 Visit Diagnosis Plan: Primary insomnia Discussion: Tri al of elavil 10mg po q HS ICD-9 : 780.52 ICD-10 : F51.01 02/26/2018 Visit Diagnosis Plan: Functional dyspepsia Discussion: Increase protonix to 40mg po BID Follow Up: 1 months ICD-9 : 536.8 ICD-10 : K30 02/26/2018 Appointment: Jalyn Daily WPtel: [address] [place] [address] WELCOME TO MEDICARE 02/26/2018 Patient Education: Patient Medication Summary Completed 02/26/2018 Referral: Song Noonan WPtel: [address] [place] [address] [place] Referral Initiated 02/19/2018 Appointment: Jalyn Daily WPtel: [address] [place], [place] [address] [place] LAB 02/06/2018 Patient Education: Patient Medication Summary Completed 02/06/2018 Appointment: Jalyn Daily WPtel: [address] [place] [address] [place] CANCELED 02/01/2018 Care Plan: US EXAM ABDOM COMPLETE liver LOINC : [id number] Pending 01/31/2018 Visit Diagnosis Plan: Essential (primary) [...] ICD-10 : R53.83 01/30/2018 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
--- OUTSIDE RECORDS SUMMARY | 2020-02-10 14:10 | XMS REPORT | CCD ---
Author Author Riana Escalante Organization [facility] Address [address] [place] [address] Phone Unavailable Care Team Providers Care Senior Net Developer Architect Name Role Phone PP Unavailable CCM Unavailable Summary Purpose Interface Exchange Insurance Providers Payer name Policy type / Coverage type Covered libertarian ID Effective Begin Date Effective End Date WPS MEDIC[place] Medicare Part B [id number] 2017 Unknown Cigna Medicare Part B [id number] 2017 Unknown Family History Family History data not found Social History Social History Element Codes Description Effective Dates Tobacco history SNOMED CT: 813462241 Never smoker 01/30/[address]: 171035063 Never drinks alcohol 2017 Allergies, Adverse Reactions, [...] failure ICD-9: 428.42 ICD-10: I50.42 08/13/2018 Active USP (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 ICD-9: [...] Fill Instructions vancomycin 125 mg capsule RxNorm: 542762 2 Capsule(s) Oral Q8H 08/0909/05/2019 Active warfarin 5 mg tablet RxNorm: 658333 1 Tablet(s) Oral MW F and 1/2 tablet (2.5mg) , , Sat & Sun08/26/2019 No Stop Date Active Colace 100 mg capsule RxNorm: 7598638 1 Capsule(s) Oral QD 08/26/19 20 11/24/2019 Active levothyroxine 25 mcg tablet RxNorm: 068252 1 Tablet(s) PO QD 201910/11/2019 Active spironolactone 25 mg tablet RxNorm: 140760 TAKE 1 TABLET BY DOUGLAS TH TWICE DAILY 06/22/2019 09/19/2019 Active losartan 25 mg tablet RxNorm: 672875 TAKE 1 TABLET BY M OUTH ONCE DAILY IN THE MORNING 05/26/2019 No Stop Date Active bumetanide 1 mg tablet RxNorm: 764785 TAKE 1 TABLET BY MOUTH TWICE DAILY AT 6AM AND 6PM 05/23/2019 No Stop Date Active vancomycin 125 mg capsule RxNorm: 738731 1 Capsule(s) Oral Q3D 04/1008/25/2019 Inactive potassium chloride ER 10 mEq capsule,extended release RxNorm : 929206 1 Capsule(s) Oral QD 04/23/2019 No Stop Date Active pantoprazole 40 mg tablet,delayed release RxNorm: 703312 1-2 Ta blet(s) Oral QD 04/23/2019 05/23/2019 Inactive warfarin 5 mg tablet RxNorm: 829128 Tablet(s) Oral Take 1 tablet (5mg) by mouth on and Sun then 1/2 tablet (2.5mg) on Sun, Sun, Thurs, Sat and Sun 04/23/2019 08/25/2019 Inactive temazepam 15 mg capsule RxNorm: 770982 TAKE 1 TO 2 CAPS ULES BY MOUTH AT BEDTIME NEEDED FOR SLEEP 04/08/2019 No Stop Date Active Cipro 250 mg tablet RxNorm: 352999 1 Tablet(s) Oral two times a day 03/27/2019 04/03/2019 Inactive metronidazole 500 mg tablet RxNorm: 676633 1 Tablet(s) Oral thr ee times a day 03/27/2019 04/03/2019 Inactive bumetanide 1 mg tablet RxNorm: 422746 1 Tablet(s) PO BID (6am a nd 6pm) 02/13/2019 05/13/2019 Inactive levothyroxine 25 mcg tablet RxNorm: 556404 1 Tablet(s) PO QD 201807/13/2019 Inactive warfarin 5 mg tablet RxNorm: 688346 1 TABLET(S) PO TUES , WED, THURS, SAT AND SUN AND 1/2 TABLET ON 02/04/2019 02/11/2019 Inactive Kendra ent requests 90 days supply warfarin 5 mg tablet RxNorm: 714448 1 TABLET(S) PO TUES , WED, THURS, SAT AND SUN AND 1/2 TABLET ON 02/03/2019 02/03/2019 Inactive Kendra ent requests 90 days supply levothyroxine 25 mcg tablet RxNorm: 575193 1 Tablet(s) PO QD 201802/03/2019 Inactive warfarin 5 mg tablet RxNorm: 934406 1 Tablet(s) PO Tues , Wed, Thurs, Sat and Sun and 1/2 tablet on 01/31/2019 02/02/2019 Inactive temazepam 15 mg capsule RxNorm: 470141 TAKE 1 TO 2 CAPS ULES BY MOUTH AT BEDTIME NEEDED FOR SLEEP 01/31/2019 04/07/2019 Inactive cyclobenzaprine 10 mg tablet RxNorm: 975582 1 Tablet(s) PO Q8H as needed 12/30/2018 No Stop Date Active losartan 25 mg tablet RxNorm: 948818 1 Tablet(s) PO QAM 12/27/2018 Inactive Lidoderm 5 % topical patch RxNorm: 2119672 1 Application TOP Q12H and then off for 12 hours 12/25/2018 01/23/2019 Inactive Lidoderm 5 % topical patch RxNorm: 4162227 1 Application TOP Q12H and then off for 12 hours 12/25/2018 12/24/2018 Inactive cyclobenzaprine 5 mg tablet RxNorm: 049736 1 Tablet(s) PO Q8H a s needed 12/12/2018 12/24/2018 Inactive spironolactone 25 mg tablet RxNorm: 175127 1 Tablet(s) PO BID 09/2006/16/2019 Inactive change in directions to BID pantoprazole 40 mg tablet,delayed release RxNorm: 975604 1 Tabl et(s) PO QD 09/20/2018 04/22/2019 Inactive Patient requests 9 0 days supply spironolactone 25 mg tablet RxNorm: 270586 1 Tablet(s) PO BID 08/2609/19/2018 Inactive change in directions to BID pantoprazole 40 mg tablet,delayed release RxNorm: 681482 1 Tabl et(s) PO QD 08/15/2018 09/19/2018 Inactive Patient requests 9 0 days supply carvedilol 6.25 mg tablet RxNorm: 686512 1 Tablet(s) PO BID 019 02/08/2019 Inactive pantoprazole 40 mg tablet,delayed release RxNorm: 621134 1 Tablet(s) PO QD 1 TABLET(S) PO BID 08/13/2018 08/15/2018 Inactive Patient reque sts 90 days supply bumetanide 1 mg tablet RxNorm: 096465 1 Tablet(s) PO BID (6am a nd 6pm) 08/13/2018 02/08/2019 Inactive bumetanide 0.5 mg tablet RxNorm: 763277 1 Tablet(s) PO QPM three days a week--Sunday, Sun, Sunday instead of 1mg dose in evening 08/13/201812/2018 Inactive levothyroxine 25 mcg tablet RxNorm: 600290 1 Tablet(s) PO QD 201801/30/2019 Inactive spironolactone 25 mg tablet RxNorm: 909975 1 Tablet(s) PO QD 201808/25/2018 Inactive losartan 25 mg tablet RxNorm: 126441 1 Tablet(s) PO QAM 08/13/2018 Inactive warfarin 5 mg tablet RxNorm: 186926 1 Tablet(s) PO QD 08/13/201808/09 Inactive pantoprazole 40 mg tablet,delayed release RxNorm: 879937 1 TABL ET(S) PO BID 08/02/2018 08/12/2018 Inactive Patient requests 9 0 days supply temazepam 15 mg capsule RxNorm: 027718 1-2 Capsule(s) P O QHS as needed for sleep 2018 01/31/2019 Inactive Restoril 15 mg capsule RxNorm: 983887 1-2 Capsule(s) PO QHS as needed for sleep 06/04/2018 08/12/2018 Inactive potassium chloride ER 10 mEq capsule,extended release RxNorm : 515272 2 CAPSULE(S) PO QD 05/07/2018 08/04/2018 Inactive Patient reque sts 90 days supply temazepam 22.5 mg capsule RxNorm: 437410 1 Capsule(s) P O QHS as needed for sleep 05/06/2018 08/12/2018 Inactive potassium chloride ER 10 mEq capsule,extended release RxNorm : 301054 2 Capsule(s) PO QD 05/06/2018 05/06/2018 Inactive ropinirole 1 mg tablet RxNorm: 293119 1 TABLET(S) PO QHS FOR RE STLESS LEGS 03/27/2018 04/25/2018 Inactive Patient requests 9 0 days supply ropinirole 1 mg tablet RxNorm: 873210 1 Tablet(s) PO QHS for re stless legs 03/26/2018 03/26/2018 Inactive cefdinir 300 mg capsule RxNorm: 259860 1 Capsule(s) PO BID 03/26/20 18 03/30/2018 Inactive temazepam 15 mg capsule RxNorm: 642481 1 Capsule(s) PO QHS as neede d 03/20/2018 03/25/2018 Inactive Lunesta 3 mg tablet RxNorm: 429543 1 Tablet(s) PO QHS as needed for sleep 03/04/2018 03/19/2018 Inactive amitriptyline 10 mg tablet RxNorm: 021328 1 Tablet(s) PO QHS fo r sleep 02/26/2018 03/03/2018 Inactive escitalopram 20 mg tablet RxNorm: 580407 1 Tablet(s) PO QHS 018 08/12/2018 Inactive pantoprazole 40 mg tablet,delayed release RxNorm: 531537 1 Tabl et(s) PO BID 02/26/2018 04/26/2018 Inactive Coumadin 2.5 mg tablet RxNorm: 087123 1 Tablet(s) PO MWF 02/18/2018 0 07/22/2018 Inactive amiodarone 200 mg tablet RxNorm: 285759 1 Tablet(s) PO QD No Start Da te Active colestipol 1 gram tablet RxNorm: 4016296 1 Tablet(s) PO BID No Start Date Active pantoprazole 40 mg tablet,delayed release RxNorm: 989447 1 Tabl et(s) PO QD No Start Date Active pantoprazole 40 mg tablet,delayed release RxNorm: 163742 1 Tabl et(s) PO QD No Start Date 02/25/2018 Inactive bumetanide 1 mg tablet RxNorm: 070572 1 Tablet(s) PO BID (6am a nd 6pm) No Start Date 08/12/2018 Inactive potassium chloride ER 10 mEq tablet,extended release RxNorm: 962547 1 Tablet(s) PO QD No Start Date 02/11/2019 Inactive levothyroxine 25 mcg tablet RxNorm: 663450 1 Tablet(s) PO QD No Sta rt Date 08/12/2018 Inactive spironolactone 25 mg tablet RxNorm: 794602 1 Tablet(s) PO QD No Sta rt Date 08/12/2018 Inactive warfarin 5 mg tablet RxNorm: 838423 1 Tablet(s) PO MWF No Start Date 08/12/2018 Inactive warfarin 5 mg tablet RxNorm: 491466 1 Tablet(s) PO Tu , Wed, Th, Sat and Sun then 1/2 tablet (2.5mg) on Mon & Fri No Start Date 08/12/2018 Inactive losartan 25 mg tablet RxNorm: 910206 1 Tablet(s) PO QAM No Start Da te 08/12/2018 Inactive carvedilol 6.25 mg tablet RxNorm: 887048 1 Tablet(s) PO BID No Star t Date 08/12/2018 Inactive warfarin 2.5 mg tablet RxNorm: 930775 1 Tablet(s) PO Tues, Thur s, Sat and Sun No Start Date 08/12/2018 Inactive Coumadin 2.5 mg tablet RxNorm: 334561 Tablet(s) Mon Sun and Fri PO No Start Date 02/17/2018 Inactive Children's Multivitamin with Iron tablet RxNorm: 1 Table t(s) PO QD No Start Date 04/22/2019 Inactive potassium chloride ER 20 mEq tablet,extended release(p art/cryst) RxNorm: 4809182 2 Tablet(s) PO QD No Start Date 05/05/2018 Inactive Coumadin 5 mg tablet RxNorm: 581088 Tablet(s) PO No Start Date 2017 Inactive mexiletine 200 mg capsule RxNorm: 4666896 1 Capsule(s) PO BID No St art Date 03/25/2018 Inactive ferrous sulfate 325 mg (65 mg iron) tablet RxNorm: 709457 1 Tab let(s) PO QD No Start Date 07/22/2018 Inactive cyclobenzaprine 10 mg tablet RxNorm: 436958 1 Tablet(s) PO Q8H as needed No Start Date 12/29/2018 Inactive potassium chloride ER 10 mEq capsule,extended release RxNorm : 645936 2 Capsule(s) PO QD No Start Date 12/11/2018 Inactive Coumadin 5 mg tablet RxNorm: 044744 1 Tablet(s) PO Tues, Thurs, Sat and Sun No Start Date 07/22/2018 Inactive Restoril 15 mg capsule RxNorm: 015919 1-2 Capsule(s) PO QHS as needed for sleep No Start Date 05/05/2018 Inactive metoprolol succinate ER 25 mg tablet,extended release 24 hr RxNorm: 652714 1 Tablet(s) PO QD No Start Date 08/12/2018 Inactive Entresto 24 mg-26 mg tablet RxNorm: 3568425 1 Tablet(s) PO BID No S tart Date 08/12/2018 Inactive warfarin 5 mg tablet RxNorm: 899734 1 Tablet(s) PO Tues , Wed, Thurs, Sat and Sun and 1/2 tablet on Sun/Fri No Start Date 01/30/2019 Inactive amiodarone 200 mg tablet RxNorm: 244366 2 Tablet(s) PO BID No Start Date 10/09/2018 Inactive furosemide 20 mg tablet RxNorm: 134697 1 Tablet(s) PO QD No Start D ate 08/12/2018 Inactive amiodarone 200 mg tablet RxNorm: 545872 1 Tablet(s) PO BID No Start Date 08/26/2018 Inactive atorvastatin 40 mg tablet RxNorm: 489033 1 Tablet(s) PO QD No Start Date 08/12/2018 Inactive warfarin 5 mg tablet RxNorm: 266279 1/2 Tablet(s) PO on Mon, Wed, Fri, Sun then 1 tablet on Sun, Th, Sat No Start Date 04/22/2019 Inactive Medication Administered No Medication Administered data Immunizations Vaccine Codes Date Status Pneumovax CVX: 33 05/14/2019 Hepatitis A CVX: 83 03/25/2019 Influenza CVX: 135 03/25/2019 Results Observation Observation Code Item Item Code Result Date S vice Location UA W/MICR 82097 UA Urine Appear Normal 02/06/2018 Unk nown UA W/MICR 85282 UA Protein 3+ 02/06/2018 Unknown UA W/MICR 48919 UA Hemoglobin Trace 02/06/2018 Unkno wn UA W/MICR 71067 UA Glucose Negative 02/06/2018 Unknown UA W/MICR 46218 UA Ketones Negative 02/06/2018 Unknown UA W/MICR 90659 UA pH 5.5 02/06/2018 Unknown UA W/MICR 24641 U Spec [place] 1.025 02/06/2018 Unkn own UA W/MICR 97635 UA Bilirubin Negative 02/06/2018 Unknow n UA W/MICR 35627 UA Leuk Esteras Trace 02/06/2018 Unk nown UA W/MICR 24425 UA Nitrite NEG 02/06/2018 Unknown UA W/MICR 34199 UA WBC/hpf 11-25 02/06/2018 Unknown UA W/MICR 53563 UA RBC hpf 0-5 02/06/2018 Unknown UA W/MICR 42765 UA Hyaline Cast 16-25 02/06/2018 Unk nown UA W/MICR 89192 UA Squam Epi Few 02/06/2018 Unknow n Procedures Procedure Codes Date URINALYSIS NONAUTO W/O SCOPE CPT-4: 43857 03/18/2019 URINE CULTURE/ COLONY COUNT CPT-4: 24552 03/18/2019 URINALYSIS NONAUTO W/O SCOPE CPT-4: 38237 12/12/2018 URINE CULTURE/ COLONY COUNT CPT-4: 29312 03/26/2018 URINALYSIS NONAUTO W/O SCOPE CPT-4: 34686 03/15/2018 INITIAL PREVENTIVE EXAM CPT-4: G0402 02/26/2018 URINALYSIS NONAUTO W/O SCOPE CPT-4: 41486 02/06/2018 URINE CULTURE/ COLONY COUNT CPT-4: 35558 02/06/2018 UA W/MICR CPT-4: 46118 02/06/2018 CUR TOBACCO NON-USER CPT-4: G8457 01/30/2018 REPAIR BLADDER & VAGINA CPT-4: 80877 01/06/2017 REPAIR OF RECTOCELE CPT-4: 81049 01/06/2017 BREAST SURGERY PROCEDURE CPT-4: 57260 Unknown LAPARO CHOLECYSTECTOMY/EXPLR CPT-4: 49115 Unknown HYSTERECTOMY/REVISE VAGINA CPT-4: 27929 Unknown Vital Signs Date Vital 08/26/2019 Blood [...] 1: 106/58 Code: 8480-6 BMI: 26.3 Code: 00212-1 Heart Rate 1: 72 bpm Height: 4'10" Respiratory Rate: 20 bpm SpO2: 97% Tempera ture: 36.6 (C) / 97.8 (F) Weight: 128 lbs 07/10/2018 Blood Pressure 1: 122/70 Code: 8480-6 BMI: 28.6 Code: 53341-4 Heart Rate 1: 80 bpm Height: 4'10" Respiratory Rate: 20 bpm SpO2: 96% Tempera ture: 36.9 (C) / 98.4 (F) Weight: 139 lbs 05/06/2018 Blood Pressure 1: 112/54 Code: 8480-6 BMI: 27.5 Code: 38832-2 Heart Rate 1: 80 bpm Height: 4'10" [...] 1: 146/80 Code: 8480-6 BMI: 30.0 Code: 94001-1 Heart Rate 1: 76 bpm Height: 4'10" Respiratory Rate: 20 bpm SpO2: 97% Tempera ture: 36.7 (C) / 98.1 (F) Weight: 146 lbs 02/26/2018 Blood Pressure 1: 126/80 Code: 8480-6 BMI: 29.6 Code: 96410-5 Heart Rate 1: 80 bpm Height: 4'10" Respiratory Rate: 18 bpm SpO2: 96% Tempera ture: 37.0 (C) / 98.6 (F) Weight: 144 lbs 01/30/2018 Blood Pressure 1: 120/78 Code: 8480-6 BMI: 29.6 Code: 34771-6 Heart Rate 1: 84 bpm Height: 4'10" Respiratory Rate: 20 bpm SpO2: 97% Tempera ture: 36.0 (C) / 96.8 (F) Weight: 144 lbs Functional Status No Functional Status data Reason For Visit Reason For Visit Effective Dates Notes abdominal pain 08/26/2019 follow up 05/07/2019 follow up 04/23/2019 [facility] abdominal pain 03/27/2019 left lower quadrant [...] up 07/10/2018 Hospital/ER fw follow up 05/06/2018 [facility] abdominal pain 04/17/2018 follow up 03/26/2018 dizziness 03/15/2018 Patient had bladder biopsy on Sunday by Dr Noonan. states she has been holding her coumadin since Sunday insomnia 02/26/2018 blood in urine 02/06/2018 ~generic 01/30/2018 Establishing Care Encounters Encounter Performer Location Codes Date ([id number]) OFFICE/OUTPATIENT VISIT EST Diagnosis: Sigmoid diverticulitis[ICD10: K57.32] Jalyn LEIGH MARIA ELENA JaniceRuben BULLAUGIEANIBAL [employer] [facility] CPT-4: 67827 08/26/2019 ([id number]) OFFICE/OUTPATIENT VISIT EST Diagnosis: Clostridium difficile colitis[ICD10: A04.72] Jalyn Bullross VÁSQUEZJALYN JaniceRuben BULLAUGIEANIBAL [employer] [facility] CPT-4: 38677 05/07/2019 ([id number]) OFFICE/OUTPATIENT VISIT EST Diagnosis: Clostridium difficile colitis[ICD10: A04.72] Diagnosis: Edema[ICD10: R60.9] Jalyn Bullross DOUGHERTY JaniceRuben BULLAUGIEANIBAL [employer] [facility] CPT-4: 34979 04/23/2019 ([id number]) OFFICE/OUTPATIENT VISIT EST Diagnosis: Constipation[ICD10: K59.00] Diagnosis: Left lower quadrant pain[ICD10: R10.32] Bhavna Avaosman YAO JaniceRuben [place]ULL[place]GIEAN[place] [employer] [facility] CPT-4: 55629 03/27/2019 ([id number]) OFFICE/OUTPATIENT VISIT EST Diagnosis: Acute kidney failure, unspecified[ICD10: N17.9] Jalyn Bullross VÁSQUEZJALYN JaniceRuben DAPHNE [employer] [facility] CPT-4: 44689 03/18/2019 ([id number]) OFFICE/OUTPATIENT VISIT EST Diagnosis: Essential (primary) hypertension[ICD10: I10] Diagnosis: Chronic atrial fibrillation[ICD10: I48.2] Diagnosis: Mixed hyperlipidemia[ICD10: E78.2] Diagnosis: Other fatigue[ICD10: R53.83] Diagnosis: Abdominal distension (gaseous)[ICD10: R14.0] Jalyn DOUGHERTY JaniceRuben DAPHNE [employer] [facility] CPT-4: 53690 02/12/2019 ([id number]) OFFICE/OUTPATIENT VISIT EST Diagnosis: Low back pain[ICD10: M54.5] Bhavna DOUGHERTY [facility] CPT-4: 06331 12/25/2018 ([id number]) OFFICE/OUTPATIENT VISIT EST Diagnosis: Low back pain[ICD10: M54.5] Bhavna JOE DO [facility] CPT-4: 53658 12/12/2018 ([id number]) OFFICE/OUTPATIENT VISIT EST Diagnosis: Anemia, unspecified[ICD10: D64.9] Diagnosis: Chronic atrial fibrillation[ICD10: I48.2] Diagnosis: Other fatigue[ICD10: R53.83] Jalyn DAILY DO [facility] CPT-4: 49270 10/10/2018 ([id number]) OFFICE/OUTPATIENT VISIT EST Diagnosis: Acute on chronic combined systolic (congestive) and diastolic (congestive) heart failure[ICD10: I50.43] Diagnosis: Chronic atrial fibrillation[ICD10: I48.2] Jalyn DAILY DO 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 CPT-4: 18171 08/13/2018 ([id number]) OFFICE/OUTPATIENT VISIT EST Diagnosis: Acute on chronic combined systolic (congestive) and diastolic (congestive) heart failure[ICD10: I50.43] Diagnosis: Essential (primary) hypertension[ICD10: I10] Diagnosis: Anemia, unspecified[ICD10: D64.9] Jalyn DAILY DO [facility] CPT-4: 15067 07/10/2018 ([id number]) OFFICE/OUTPATIENT VISIT EST Diagnosis: Chronic atrial fibrillation[ICD10: I48.2] Diagnosis: Acute on chronic combined systolic (congestive) and diastolic (congestive) heart failure[ICD10: I50.43] Diagnosis: Localized edema[ICD10: R60.0] Jalyn GIBBONSLINE Reese DAILY DO [facility] CPT-4: 94866 05/06/2018 ([id number]) OFFICE/OUTPATIENT VISIT EST Diagnosis: Generalized abdominal pain[ICD10: R10.84] Diagnosis: Pelvic and perineal pain[ICD10: R10.2] Diagnosis: Localized edema[ICD10: R60.0] Bhavna DAILY DO [facility] CPT-4: 48461 04/17/2018 ([id number]) OFFICE/OUTPATIENT VISIT EST Diagnosis: Urinary tract infection, site not specified[ICD10: N39.0] Diagnosis: Other insomnia[ICD10: G47.09] Diagnosis: Other fatigue[ICD10: R53.83] Diagnosis: Other forms of dyspnea[ICD10: R06.09] Diagnosis: Chronic atrial fibrillation[ICD10: I48.2] Diagnosis: Restless legs syndrome[ICD10: G25.81] Jalyn DAILY [employer] [facility] CPT-4: 81670 03/26/2018 ([id number]) OFFICE/OUTPATIENT VISIT EST Diagnosis: Altered mental status, unspecified[ICD10: R41.82] Diagnosis: emt intermediate (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[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] Diagnosis: Hematuria, unspecified[ICD10: R31.9] Bhavna DAILY [employer] [facility] CPT-4: 39680 03/15/2018 ([id number]) NURSE/OUTPATIENT VISIT EST Diagnosis: Urinary tract infection, site not specified[ICD10: N39.0] Jalyn DAILY [employer] [facility] CPT-4: 48558 02/06/2018 OFFICE/OUTPATIENT VISIT NEW Diagnosis: USP (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[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] Diagnosis: Essential (primary) hypertension[ICD10: I10] Diagnosis: Mixed hyperlipidemia[ICD10: E78.2] Diagnosis: Other fatigue[ICD10: R53.83] Diagnosis: Cardiac arrhythmia, unspecified[ICD10: I49.9] Diagnosis: Generalized abdominal pain[ICD10: R10.84] Diagnosis: Urinary tract infection, site not specified[ICD10: N39.0] Diagnosis: Other insomnia[ICD10: G47.09] Bhavna DAILY [employer] [facility] CPT-4: 16999 01/30/2018 Plan of Care Planned Activity Notes Codes Status Date Visit Diagnosis Plan: Sigmoid diverticulitis Discussio n: Vancomycin Soft diet Align BID Recheck 10 days unless worsening then let us know or to ER Discussed updated colonoscopy in December when due for EGD with Dr. Salmon if has no further episodes ICD-9 : 562.11 ICD-10 : K57.32 08/26/2019 Appointment: Jalyn Daily WPtel: [address] [place], [place] [phone] originally 4 mo follow up CANCELED 2018 Visit Diagnosis Plan: Clostridium difficile colitis Di scussion: Vancomycin daily for another week then 125mg every 3 days for 1 month then stop Fwup in September ICD-9 : 008.45 ICD-10 : A04.72 05/07/2019 Appointment: Jalyn Daily WPtel: [address] [place], [place] [phone] FOLLOW UP 05/07/2019 Visit Diagnosis Plan: Edema [...] : A04.72 04/23/2019 Appointment: Jalyn Daily WPtel: [address] [place], [place] [phone] Hospital Follow Up 04/23/2019 Appointment: Bhavna Escalante [address] [facility] CANCELED 04/15/2019 Visit Diagnosis Plan: Left lower quadrant pain Discuss ion: will start with abdominal xray to rule out acute obstruction/constipation. if no acute findings, will treat as diverticulitis due to patient's past history. ICD-9 : 789.04 ICD-10 : R10.32 03/27/2019 Appointment: Bhavna Escalante [address] [facility] ACUTE ILLNESS 03/27/2019 Visit Diagnosis Plan: Acute kidney failure, unspecifie d Discussion: Was given Meloxicam at urgent care--discussed no NSAIDs, hydrate, repeat Chem 7 in 1 week ICD-9 : 584.9 ICD-10 : N17.9 03/18/2019 Appointment: Jalyn Daily WPtel: [address] [place] [address] ACUTE ILLNESS 03/18/2019 Visit Diagnosis Plan: Chronic atrial fibrillation Disc ussion: Following routinely with Cardiology ICD-9 : 427.31 ICD-10 : I48.2 02/12/2019 Visit Diagnosis Plan: Essential (primary) hypertension Discussion: Stable ICD-9 : 401.9 ICD-10 : I10 02/12/2019 Visit Diagnosis Plan: Abdominal distension (gaseous) D iscussion: Trial of Zenpep q AC ICD-9 : 787.3 ICD-10 : R14.0 02/12/2019 Appointment: Jalyn Daily WPtel: [address] [place] [address] FOLLOW UP 02/12/2019 Appointment: Bhavna Escalante [address] [place] [address] [place] Canceled per guillermina. sending for mri [...] : M54.5 12/25/2018 Appointment: Bhavna Escalante [address] [place] [address] ACUTE ILLNESS 12/25/2018 Visit Diagnosis Plan: Low [...] : M54.5 12/12/2018 [facility] [facility] 12/12/2018 Patient Education: cyclobenzaprine- [employer] Couchevy [id number] https://www.[employer]/resources/getResource/61/dt8365a6-[email or web address]-y6 Completed 12/12/2018 Appointment: Bhavna Escalante [address] [facility] US CANCELED 12/06/2018 Visit Diagnosis Plan: Anemia, [...] : R53.83 10/10/2018 Appointment: Jalyn Daily WPtel: [address] [place], [place] [phone] [place] FOLLOW UP 10/10/2018 Visit Diagnosis Plan: [...] : I50.43 08/27/2018 Appointment: Jalyn Daily WPtel: [address] [place], [place] [phone] [place] FOLLOW UP 08/27/2018 Visit Diagnosis Plan: [...] ICD-10 : I48.2 08/13/2018 Visit Diagnosis Plan: emt intermediate (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 Discussion: Increase Coumadin to 5mg po daily and repeat PT/INR in 2 weeks ICD-9 : V58.61 ICD-10 : Z79.01 08/13/2018 Appointment: [facility] [address] [facility] [facility] 08/13/2018 Patient Education: bumetanide- [employer] Coupon [phone] https://www.[employer]/resources/getResource/61/4bw13m03-2ij0-7l77-iq Completed 08/13/2018 Patient Education: levothyroxine- [employer] Coupon [phone] https://www.[employer]/resources/getResource/61/5198909u-2005-4w16-ou Completed 08/13/2018 Patient Education: warfarin- [employer] Coupon [id number] [phone] https://www.[employer]/resources/getResource/61/86246290-jk02-05i1-2h Completed 08/13/2018 Patient Education: pantoprazole- [employer] Coupon [phone] https://www.[employer]/resources/getResource/61/t5308n52-69k3-27cz-9d Completed 08/13/2018 Patient Education: spironolactone- [employer] Coupon [phone] https://www.[employer]/resources/getResource/61/2ku935x4-c378-7341-vv Completed 08/13/2018 Visit Diagnosis Plan: Anemia, unspecified [...] : I50.43 07/10/2018 Appointment: Jalyn Daily WPtel: [address] [place] [address] FOLLOW UP 07/10/2018 Visit Diagnosis Plan: Acute [...] : I48.2 05/06/2018 Appointment: Jalyn Daily WPtel: [facility] [place] FOLLOW UP 05/06/2018 Visit [...] : R10.2 04/17/2018 Appointment: Bhavna Escalante [address] [place], [place] [phone] ACUTE ILLNESS 04/17/2018 Patient Education: Patient Medication Summary Completed 04/17/2018 Care Plan: CT ABDOMEN W/O & W/DYE LOINC : 55464-0 Pending 04/17/2018 Care Plan: CT PELVIS W/O & W/DYE LOINC : 02956-6 Pending 04/17/2018 Appointment: Jalyn Daily WPtel: [facility] [place] [facility]ED 04/10/2018 Visit Diagnosis Plan: [...] Daily WPtel: [facility] [facility] Follow UP 03/26/2018 Patient Education: [...] ICD-10 : R41.82 03/15/2018 Appointment: Bhavna Escalante [address] [place] [address] ACUTE ILLNESS 03/15/2018 Patient Education: Patient Medication Summary Completed 03/15/2018 Visit Diagnosis Plan: Primary insomnia Discussion: Tri al of elavil 10mg po q HS ICD-9 : 780.52 ICD-10 : F51.01 02/26/2018 Visit Diagnosis Plan: Functional dyspepsia Discussion: Increase protonix to 40mg po BID Follow Up: 1 months ICD-9 : 536.8 ICD-10 : K30 02/26/2018 Appointment: Jalyn Daily WPtel: [address] [place] [address] WELCOME TO MEDICARE 02/26/2018 Patient Education: Patient Medication Summary Completed 02/26/2018 Referral: Song Noonan WPtel: [address] [place] [address] [place] Referral Initiated 02/19/2018 Appointment: Jalyn Daily WPtel: [address] [place] [address] [place] LAB 02/06/2018 Patient Education: Patient Medication Summary Completed 02/06/2018 Appointment: Jalyn Daily WPtel: [address] [place] [address] [place] CANCELED 02/01/2018 Care Plan: US EXAM ABDOM COMPLETE liver LOINC : [id number] Pending 01/31/2018 Visit Diagnosis Plan: Other fatigue [...] ICD-10 : I10 01/30/2018 Appointment: Bhavna Escalante [address] [place], [place] [id number] NEW [facility]IENT [...]
--- OUTSIDE RECORDS SUMMARY | 2020-02-10 14:10 | XMS REPORT | CCD ---
Author Author Riana Escalante Organization [facility] Address [address] [place] [address] Phone Unavailable Care Team Providers Care Transplant Immunologist Name Role Phone PP Unavailable CCM Unavailable Summary Purpose Interface Exchange Insurance Providers Payer name Policy type / Coverage type Covered green party ID Effective Begin Date Effective End Date WPS MEDICARE PART B [place] Medicare Part B [id number] 2017 Unknown Cigna Medicare Part B [id number] 2017 Unknown Family History Family History data not found Social History Social History Element Codes Description Effective Dates Tobacco history SNOMED CT: 539186285 Never smoker 01/30/[address]: 837093036 Never drinks alcohol 2017 Allergies, Adverse Reactions, [...] failure ICD-9: 428.42 ICD-10: I50.42 08/13/2018 Active correction (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 ICD-9: [...] Fill Instructions vancomycin 125 mg capsule RxNorm: 101003 2 Capsule(s) Oral Q8H 08/0909/05/2019 Active warfarin 5 mg tablet RxNorm: 345153 1 Tablet(s) Oral MW F and 1/2 tablet (2.5mg) , , Sat & Sun08/26/2019 No Stop Date Active Colace 100 mg capsule RxNorm: 5705241 1 Capsule(s) Oral QD 08/26/19 20 11/24/2019 Active levothyroxine 25 mcg tablet RxNorm: 135061 1 Tablet(s) PO QD 201910/11/2019 Active spironolactone 25 mg tablet RxNorm: 354047 TAKE 1 TABLET BY DOUGLAS TH TWICE DAILY 06/22/2019 09/19/2019 Active losartan 25 mg tablet RxNorm: 784568 TAKE 1 TABLET BY M OUTH ONCE DAILY IN THE MORNING 05/26/2019 No Stop Date Active bumetanide 1 mg tablet RxNorm: 733919 TAKE 1 TABLET BY MOUTH TWICE DAILY AT 6AM AND 6PM 05/23/2019 No Stop Date Active vancomycin 125 mg capsule RxNorm: 164748 1 Capsule(s) Oral Q3D 04/1008/25/2019 Inactive potassium chloride ER 10 mEq capsule,extended release RxNorm : 658289 1 Capsule(s) Oral QD 04/23/2019 No Stop Date Active pantoprazole 40 mg tablet,delayed release RxNorm: 553914 1-2 Ta blet(s) Oral QD 04/23/2019 05/23/2019 Inactive warfarin 5 mg tablet RxNorm: 008437 Tablet(s) Oral Take 1 tablet (5mg) by mouth on and Sun then 1/2 tablet (2.5mg) on Sun, Sun, Thurs, Sat and Sun 04/23/2019 08/25/2019 Inactive temazepam 15 mg capsule RxNorm: 397499 TAKE 1 TO 2 CAPS ULES BY MOUTH AT BEDTIME NEEDED FOR SLEEP 04/08/2019 No Stop Date Active Cipro 250 mg tablet RxNorm: 196900 1 Tablet(s) Oral two times a day 03/27/2019 04/03/2019 Inactive metronidazole 500 mg tablet RxNorm: 669073 1 Tablet(s) Oral thr ee times a day 03/27/2019 04/03/2019 Inactive bumetanide 1 mg tablet RxNorm: 801254 1 Tablet(s) PO BID (6am a nd 6pm) 02/13/2019 05/13/2019 Inactive levothyroxine 25 mcg tablet RxNorm: 188842 1 Tablet(s) PO QD 201807/13/2019 Inactive warfarin 5 mg tablet RxNorm: 890242 1 TABLET(S) PO TUES , WED, THURS, SAT AND SUN AND 1/2 TABLET ON 02/04/2019 02/11/2019 Inactive Kendra ent requests 90 days supply warfarin 5 mg tablet RxNorm: 961370 1 TABLET(S) PO TUES , WED, THURS, SAT AND SUN AND 1/2 TABLET ON 02/03/2019 02/03/2019 Inactive Kendra ent requests 90 days supply levothyroxine 25 mcg tablet RxNorm: 671960 1 Tablet(s) PO QD 201802/03/2019 Inactive warfarin 5 mg tablet RxNorm: 089441 1 Tablet(s) PO Tues , Wed, Thurs, Sat and Sun and 1/2 tablet on 01/31/2019 02/02/2019 Inactive temazepam 15 mg capsule RxNorm: 597294 TAKE 1 TO 2 CAPS ULES BY MOUTH AT BEDTIME NEEDED FOR SLEEP 01/31/2019 04/07/2019 Inactive cyclobenzaprine 10 mg tablet RxNorm: 606859 1 Tablet(s) PO Q8H as needed 12/30/2018 No Stop Date Active losartan 25 mg tablet RxNorm: 613911 1 Tablet(s) PO QAM 12/27/2018 Inactive Lidoderm 5 % topical patch RxNorm: 0006846 1 Application TOP Q12H and then off for 12 hours 12/25/2018 01/23/2019 Inactive Lidoderm 5 % topical patch RxNorm: 7547421 1 Application TOP Q12H and then off for 12 hours 12/25/2018 12/24/2018 Inactive cyclobenzaprine 5 mg tablet RxNorm: 533586 1 Tablet(s) PO Q8H a s needed 12/12/2018 12/24/2018 Inactive spironolactone 25 mg tablet RxNorm: 703552 1 Tablet(s) PO BID 09/2006/16/2019 Inactive change in directions to BID pantoprazole 40 mg tablet,delayed release RxNorm: 143626 1 Tabl et(s) PO QD 09/20/2018 04/22/2019 Inactive Patient requests 9 0 days supply spironolactone 25 mg tablet RxNorm: 977430 1 Tablet(s) PO BID 08/2609/19/2018 Inactive change in directions to BID pantoprazole 40 mg tablet,delayed release RxNorm: 359074 1 Tabl et(s) PO QD 08/15/2018 09/19/2018 Inactive Patient requests 9 0 days supply carvedilol 6.25 mg tablet RxNorm: 090878 1 Tablet(s) PO BID 019 02/08/2019 Inactive pantoprazole 40 mg tablet,delayed release RxNorm: 295784 1 Tablet(s) PO QD 1 TABLET(S) PO BID 08/13/2018 08/15/2018 Inactive Patient reque sts 90 days supply bumetanide 1 mg tablet RxNorm: 201315 1 Tablet(s) PO BID (6am a nd 6pm) 08/13/2018 02/08/2019 Inactive bumetanide 0.5 mg tablet RxNorm: 058061 1 Tablet(s) PO QPM three days a week--Sunday, Sun, Sunday instead of 1mg dose in evening 08/13/201812/2018 Inactive levothyroxine 25 mcg tablet RxNorm: 409413 1 Tablet(s) PO QD 201801/30/2019 Inactive spironolactone 25 mg tablet RxNorm: 788448 1 Tablet(s) PO QD 201808/25/2018 Inactive losartan 25 mg tablet RxNorm: 952655 1 Tablet(s) PO QAM 08/13/2018 Inactive warfarin 5 mg tablet RxNorm: 087330 1 Tablet(s) PO QD 08/13/201808/09 Inactive pantoprazole 40 mg tablet,delayed release RxNorm: 782222 1 TABL ET(S) PO BID 08/02/2018 08/12/2018 Inactive Patient requests 9 0 days supply temazepam 15 mg capsule RxNorm: 959430 1-2 Capsule(s) P O QHS as needed for sleep 2018 01/31/2019 Inactive Restoril 15 mg capsule RxNorm: 353148 1-2 Capsule(s) PO QHS as needed for sleep 06/04/2018 08/12/2018 Inactive potassium chloride ER 10 mEq capsule,extended release RxNorm : 016335 2 CAPSULE(S) PO QD 05/07/2018 08/04/2018 Inactive Patient reque sts 90 days supply temazepam 22.5 mg capsule RxNorm: 701027 1 Capsule(s) P O QHS as needed for sleep 05/06/2018 08/12/2018 Inactive potassium chloride ER 10 mEq capsule,extended release RxNorm : 027165 2 Capsule(s) PO QD 05/06/2018 05/06/2018 Inactive ropinirole 1 mg tablet RxNorm: 657314 1 TABLET(S) PO QHS FOR RE STLESS LEGS 03/27/2018 04/25/2018 Inactive Patient requests 9 0 days supply ropinirole 1 mg tablet RxNorm: 342952 1 Tablet(s) PO QHS for re stless legs 03/26/2018 03/26/2018 Inactive cefdinir 300 mg capsule RxNorm: 033231 1 Capsule(s) PO BID 03/26/20 18 03/30/2018 Inactive temazepam 15 mg capsule RxNorm: 375030 1 Capsule(s) PO QHS as neede d 03/20/2018 03/25/2018 Inactive Lunesta 3 mg tablet RxNorm: 291634 1 Tablet(s) PO QHS as needed for sleep 03/04/2018 03/19/2018 Inactive amitriptyline 10 mg tablet RxNorm: 693929 1 Tablet(s) PO QHS fo r sleep 02/26/2018 03/03/2018 Inactive escitalopram 20 mg tablet RxNorm: 004760 1 Tablet(s) PO QHS 018 08/12/2018 Inactive pantoprazole 40 mg tablet,delayed release RxNorm: 421613 1 Tabl et(s) PO BID 02/26/2018 04/26/2018 Inactive Coumadin 2.5 mg tablet RxNorm: 858812 1 Tablet(s) PO MWF 02/18/2018 0 07/22/2018 Inactive amiodarone 200 mg tablet RxNorm: 169742 1 Tablet(s) PO QD No Start Da te Active colestipol 1 gram tablet RxNorm: 6331229 1 Tablet(s) PO BID No Start Date Active pantoprazole 40 mg tablet,delayed release RxNorm: 958069 1 Tabl et(s) PO QD No Start Date Active pantoprazole 40 mg tablet,delayed release RxNorm: 815631 1 Tabl et(s) PO QD No Start Date 02/25/2018 Inactive bumetanide 1 mg tablet RxNorm: 622166 1 Tablet(s) PO BID (6am a nd 6pm) No Start Date 08/12/2018 Inactive potassium chloride ER 10 mEq tablet,extended release RxNorm: 719392 1 Tablet(s) PO QD No Start Date 02/11/2019 Inactive levothyroxine 25 mcg tablet RxNorm: 811825 1 Tablet(s) PO QD No Sta rt Date 08/12/2018 Inactive spironolactone 25 mg tablet RxNorm: 560888 1 Tablet(s) PO QD No Sta rt Date 08/12/2018 Inactive warfarin 5 mg tablet RxNorm: 036304 1 Tablet(s) PO MWF No Start Date 08/12/2018 Inactive warfarin 5 mg tablet RxNorm: 236962 1 Tablet(s) PO Tu , Wed, Th, Sat and Sun then 1/2 tablet (2.5mg) on Mon & Fri No Start Date 08/12/2018 Inactive losartan 25 mg tablet RxNorm: 287678 1 Tablet(s) PO QAM No Start Da te 08/12/2018 Inactive carvedilol 6.25 mg tablet RxNorm: 488307 1 Tablet(s) PO BID No Star t Date 08/12/2018 Inactive warfarin 2.5 mg tablet RxNorm: 088332 1 Tablet(s) PO Tues, Thur s, Sat and Sun No Start Date 08/12/2018 Inactive Coumadin 2.5 mg tablet RxNorm: 448239 Tablet(s) Mon Sun and Fri PO No Start Date 02/17/2018 Inactive Children's Multivitamin with Iron tablet RxNorm: 1 Table t(s) PO QD No Start Date 04/22/2019 Inactive potassium chloride ER 20 mEq tablet,extended release(p art/cryst) RxNorm: 0693216 2 Tablet(s) PO QD No Start Date 05/05/2018 Inactive Coumadin 5 mg tablet RxNorm: 740467 Tablet(s) PO No Start Date 2017 Inactive mexiletine 200 mg capsule RxNorm: 5406689 1 Capsule(s) PO BID No St art Date 03/25/2018 Inactive ferrous sulfate 325 mg (65 mg iron) tablet RxNorm: 172759 1 Tab let(s) PO QD No Start Date 07/22/2018 Inactive cyclobenzaprine 10 mg tablet RxNorm: 974868 1 Tablet(s) PO Q8H as needed No Start Date 12/29/2018 Inactive potassium chloride ER 10 mEq capsule,extended release RxNorm : 293664 2 Capsule(s) PO QD No Start Date 12/11/2018 Inactive Coumadin 5 mg tablet RxNorm: 587983 1 Tablet(s) PO Tues, Thurs, Sat and Sun No Start Date 07/22/2018 Inactive Restoril 15 mg capsule RxNorm: 931374 1-2 Capsule(s) PO QHS as needed for sleep No Start Date 05/05/2018 Inactive metoprolol succinate ER 25 mg tablet,extended release 24 hr RxNorm: 508957 1 Tablet(s) PO QD No Start Date 08/12/2018 Inactive Entresto 24 mg-26 mg tablet RxNorm: 6330088 1 Tablet(s) PO BID No S tart Date 08/12/2018 Inactive warfarin 5 mg tablet RxNorm: 308162 1 Tablet(s) PO Tues , Wed, Thurs, Sat and Sun and 1/2 tablet on Sun/Fri No Start Date 01/30/2019 Inactive amiodarone 200 mg tablet RxNorm: 374538 2 Tablet(s) PO BID No Start Date 10/09/2018 Inactive furosemide 20 mg tablet RxNorm: 906074 1 Tablet(s) PO QD No Start D ate 08/12/2018 Inactive amiodarone 200 mg tablet RxNorm: 430647 1 Tablet(s) PO BID No Start Date 08/26/2018 Inactive atorvastatin 40 mg tablet RxNorm: 542069 1 Tablet(s) PO QD No Start Date 08/12/2018 Inactive warfarin 5 mg tablet RxNorm: 396332 1/2 Tablet(s) PO on Mon, Wed, Fri, Sun then 1 tablet on Sun, Th, Sat No Start Date 04/22/2019 Inactive Medication Administered No Medication Administered data Immunizations Vaccine Codes Date Status Pneumovax CVX: 33 05/14/2019 Hepatitis A CVX: 83 03/25/2019 Influenza CVX: 135 03/25/2019 Results Observation Observation Code Item Item Code Result Date S vice Location UA W/MICR 66025 UA Urine Appear Normal 02/06/2018 Unk nown UA W/MICR 46289 UA Protein 3+ 02/06/2018 Unknown UA W/MICR 29584 UA Hemoglobin Trace 02/06/2018 Unkno wn UA W/MICR 68408 UA Glucose Negative 02/06/2018 Unknown UA W/MICR 68199 UA Ketones Negative 02/06/2018 Unknown UA W/MICR 41692 UA pH 5.5 02/06/2018 Unknown UA W/MICR 52185 U Spec [place] 1.025 02/06/2018 Unkn own UA W/MICR 41922 UA Bilirubin Negative 02/06/2018 Unknow n UA W/MICR 19424 UA Leuk Esteras Trace 02/06/2018 Unk nown UA W/MICR 82879 UA Nitrite NEG 02/06/2018 Unknown UA W/MICR 59370 UA WBC/hpf 11-25 02/06/2018 Unknown UA W/MICR 11700 UA RBC hpf 0-5 02/06/2018 Unknown UA W/MICR 46405 UA Hyaline Cast 16-25 02/06/2018 Unk nown UA W/MICR 52324 UA Squam Epi Few 02/06/2018 Unknow n Procedures Procedure Codes Date URINALYSIS NONAUTO W/O SCOPE CPT-4: 72788 03/18/2019 URINE CULTURE/ COLONY COUNT CPT-4: 16941 03/18/2019 URINALYSIS NONAUTO W/O SCOPE CPT-4: 87954 12/12/2018 URINE CULTURE/ COLONY COUNT CPT-4: 49706 03/26/2018 URINALYSIS NONAUTO W/O SCOPE CPT-4: 97410 03/15/2018 INITIAL PREVENTIVE EXAM CPT-4: G0402 02/26/2018 URINALYSIS NONAUTO W/O SCOPE CPT-4: 14387 02/06/2018 URINE CULTURE/ COLONY COUNT CPT-4: 06502 02/06/2018 UA W/MICR CPT-4: 74111 02/06/2018 CUR TOBACCO NON-USER CPT-4: G8457 01/30/2018 REPAIR BLADDER & VAGINA CPT-4: 89492 01/06/2017 REPAIR OF RECTOCELE CPT-4: 86985 01/06/2017 BREAST SURGERY PROCEDURE CPT-4: 57157 Unknown LAPARO CHOLECYSTECTOMY/EXPLR CPT-4: 28332 Unknown HYSTERECTOMY/REVISE VAGINA CPT-4: 99461 Unknown Vital Signs Date Vital 08/26/2019 Blood [...] 1: 106/58 Code: 8480-6 BMI: 26.3 Code: 31907-7 Heart Rate 1: 72 bpm Height: 4'10" Respiratory Rate: 20 bpm SpO2: 97% Tempera ture: 36.6 (C) / 97.8 (F) Weight: 128 lbs 07/10/2018 Blood Pressure 1: 122/70 Code: 8480-6 BMI: 28.6 Code: 04016-4 Heart Rate 1: 80 bpm Height: 4'10" Respiratory Rate: 20 bpm SpO2: 96% Tempera ture: 36.9 (C) / 98.4 (F) Weight: 139 lbs 05/06/2018 Blood Pressure 1: 112/54 Code: 8480-6 BMI: 27.5 Code: 11018-9 Heart Rate 1: 80 bpm Height: 4'10" [...] 1: 146/80 Code: 8480-6 BMI: 30.0 Code: 21498-5 Heart Rate 1: 76 bpm Height: 4'10" Respiratory Rate: 20 bpm SpO2: 97% Tempera ture: 36.7 (C) / 98.1 (F) Weight: 146 lbs 02/26/2018 Blood Pressure 1: 126/80 Code: 8480-6 BMI: 29.6 Code: 58180-1 Heart Rate 1: 80 bpm Height: 4'10" Respiratory Rate: 18 bpm SpO2: 96% Tempera ture: 37.0 (C) / 98.6 (F) Weight: 144 lbs 01/30/2018 Blood Pressure 1: 120/78 Code: 8480-6 BMI: 29.6 Code: 16594-9 Heart Rate 1: 84 bpm Height: 4'10" [...] up 07/10/2018 Hospital/ER fw follow up 05/06/2018 [facility] abdominal pain 04/17/2018 follow up 03/26/2018 dizziness 03/15/2018 Patient had bladder biopsy on Sunday by Dr Noonan. states she has been holding her coumadin since Sunday insomnia 02/26/2018 blood in urine 02/06/2018 ~generic 01/30/2018 Establishing Care Encounters Encounter Performer Location Codes Date ([id number]) OFFICE/OUTPATIENT VISIT EST Diagnosis: Sigmoid diverticulitis[ICD10: K57.32] Jalyn LEIGH MARIA ELENA JaniceRuben BULLAUGIEANIBAL [employer] [facility] CPT-4: 25044 08/26/2019 ([id number]) OFFICE/OUTPATIENT VISIT EST Diagnosis: Clostridium difficile colitis[ICD10: A04.72] Jalyn Bullross VÁSQUEZJALYN JaniceRuben [employer] [facility] CPT-4: 71814 05/07/2019 ([id number]) OFFICE/OUTPATIENT VISIT EST Diagnosis: Clostridium difficile colitis[ICD10: A04.72] Diagnosis: Edema[ICD10: R60.9] Jalyn Bullross DOUGHERTY JaniceRuben [employer] [facility] CPT-4: 10917 04/23/2019 ([id number]) OFFICE/OUTPATIENT VISIT EST Diagnosis: Constipation[ICD10: K59.00] Diagnosis: Left lower quadrant pain[ICD10: R10.32] Bhavna Avaosman YAO JaniceRuebn [employer] [facility] CPT-4: 17332 03/27/2019 ([id number]) OFFICE/OUTPATIENT VISIT EST Diagnosis: Acute kidney failure, unspecified[ICD10: N17.9] Jalyn Bullross VÁSQUEZJALYN JaniceRuben DAPHNE [employer] [facility] CPT-4: 13158 03/18/2019 ([id number]) OFFICE/OUTPATIENT VISIT EST Diagnosis: Essential (primary) hypertension[ICD10: I10] Diagnosis: Chronic atrial fibrillation[ICD10: I48.2] Diagnosis: Mixed hyperlipidemia[ICD10: E78.2] Diagnosis: Other fatigue[ICD10: R53.83] Diagnosis: Abdominal distension (gaseous)[ICD10: R14.0] Jalyn DOUGHERTY JaniceRuben DAPHNE [employer] [facility] CPT-4: 51113 02/12/2019 ([id number]) OFFICE/OUTPATIENT VISIT EST Diagnosis: Low back pain[ICD10: M54.5] Bhavna DOUGHERTY S. [facility] CPT-4: 03911 12/25/2018 ([id number]) OFFICE/OUTPATIENT VISIT EST Diagnosis: Low back pain[ICD10: M54.5] Bhavna JOE DO [facility] CPT-4: 01965 12/12/2018 ([id number]) OFFICE/OUTPATIENT VISIT EST Diagnosis: Anemia, unspecified[ICD10: D64.9] Diagnosis: Chronic atrial fibrillation[ICD10: I48.2] Diagnosis: Other fatigue[ICD10: R53.83] Jalyn DAILY DO [facility] CPT-4: 33385 10/10/2018 ([id number]) OFFICE/OUTPATIENT VISIT EST Diagnosis: Acute on chronic combined systolic (congestive) and diastolic (congestive) heart failure[ICD10: I50.43] Diagnosis: Chronic atrial fibrillation[ICD10: I48.2] Jalyn DAILY DO [facility] CPT-4: 34358 08/27/2018 ([id number]) OFFICE/OUTPATIENT VISIT EST Diagnosis: Chronic atrial fibrillation[ICD10: I48.2] 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] 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[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] Jalyn DAILY DO [facility] CPT-4: 37759 08/13/2018 ([id number]) OFFICE/OUTPATIENT VISIT EST Diagnosis: Acute on chronic combined systolic (congestive) and diastolic (congestive) heart failure[ICD10: I50.43] Diagnosis: Essential (primary) hypertension[ICD10: I10] Diagnosis: Anemia, unspecified[ICD10: D64.9] Jalyn DAILY DO [facility] CPT-4: 48122 07/10/2018 ([id number]) OFFICE/OUTPATIENT VISIT EST Diagnosis: Chronic atrial fibrillation[ICD10: I48.2] Diagnosis: Acute on chronic combined systolic (congestive) and diastolic (congestive) heart failure[ICD10: I50.43] Diagnosis: Localized edema[ICD10: R60.0] Jalyn GIBBONSLINE Reese DAILY DO [facility] CPT-4: 21669 05/06/2018 ([id number]) OFFICE/OUTPATIENT VISIT EST Diagnosis: Generalized abdominal pain[ICD10: R10.84] Diagnosis: Pelvic and perineal pain[ICD10: R10.2] Diagnosis: Localized edema[ICD10: R60.0] Bhavna DAILY DO [facility] CPT-4: 24311 04/17/2018 ([id number]) OFFICE/OUTPATIENT VISIT EST Diagnosis: Urinary tract infection, site not specified[ICD10: N39.0] Diagnosis: Other insomnia[ICD10: G47.09] Diagnosis: Other fatigue[ICD10: R53.83] Diagnosis: Other forms of dyspnea[ICD10: R06.09] Diagnosis: Chronic atrial fibrillation[ICD10: I48.2] Diagnosis: Restless legs syndrome[ICD10: G25.81] Jalyn DAILY [employer] [facility] CPT-4: 98340 03/26/2018 ([id number]) OFFICE/OUTPATIENT VISIT EST Diagnosis: Altered mental status, unspecified[ICD10: R41.82] 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[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] Diagnosis: Hematuria, unspecified[ICD10: R31.9] Bhavna DAILY [employer] [facility] CPT-4: 63206 03/15/2018 ([id number]) NURSE/OUTPATIENT VISIT EST Diagnosis: Urinary tract infection, site not specified[ICD10: N39.0] Jalyn DAILY [employer] [facility] CPT-4: 69686 02/06/2018 OFFICE/OUTPATIENT VISIT NEW Diagnosis: correction (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[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] Diagnosis: Essential (primary) hypertension[ICD10: I10] Diagnosis: Mixed hyperlipidemia[ICD10: E78.2] Diagnosis: Other fatigue[ICD10: R53.83] Diagnosis: Cardiac arrhythmia, unspecified[ICD10: I49.9] Diagnosis: Generalized abdominal pain[ICD10: R10.84] Diagnosis: Urinary tract infection, site not specified[ICD10: N39.0] Diagnosis: Other insomnia[ICD10: G47.09] Bhavna DAILY [employer] [facility] CPT-4: 53524 01/30/2018 Plan of Care Planned Activity Notes Codes Status Date Visit Diagnosis Plan: Sigmoid diverticulitis Discussio n: Vancomycin Soft diet Align BID Recheck 10 days unless worsening then let us know or to ER Discussed updated colonoscopy in December when due for EGD with Dr. Slamon if has no further episodes ICD-9 : 562.11 ICD-10 : K57.32 08/26/2019 Appointment: Jalyn Daily WPtel: [address] [place], [place] [phone] originally 4 mo follow up CANCELED 2018 Visit Diagnosis Plan: Clostridium difficile colitis Di scussion: Vancomycin daily for another week then 125mg every 3 days for 1 month then stop Fwup in September ICD-9 : 008.45 ICD-10 : A04.72 05/07/2019 Appointment: Jalyn Daily WPtel: [address] [place], [place] [phone] FOLLOW UP 05/07/2019 Visit Diagnosis Plan: Edema [...] : A04.72 04/23/2019 Appointment: Jalyn Daily WPtel: [address] [place], [place] [phone] Hospital Follow Up 04/23/2019 Appointment: Bhavna Escalante [address] [facility] CANCELED 04/15/2019 Visit Diagnosis Plan: Left lower quadrant pain Discuss ion: will start with abdominal xray to rule out acute obstruction/constipation. if no acute findings, will treat as diverticulitis due to patient's past history. ICD-9 : 789.04 ICD-10 : R10.32 03/27/2019 Appointment: Bhavna Escalante [address] [facility] ACUTE ILLNESS 03/27/2019 Visit Diagnosis Plan: Acute kidney failure, unspecifie d Discussion: Was given Meloxicam at urgent care--discussed no NSAIDs, hydrate, repeat Chem 7 in 1 week ICD-9 : 584.9 ICD-10 : N17.9 03/18/2019 Appointment: Jalyn Daily WPtel: [address] [place] [address] ACUTE ILLNESS 03/18/2019 Visit Diagnosis Plan: Chronic atrial fibrillation Disc ussion: Following routinely with Cardiology ICD-9 : 427.31 ICD-10 : I48.2 02/12/2019 Visit Diagnosis Plan: Essential (primary) hypertension Discussion: Stable ICD-9 : 401.9 ICD-10 : I10 02/12/2019 Visit Diagnosis Plan: Abdominal distension (gaseous) D iscussion: Trial of Zenpep q AC ICD-9 : 787.3 ICD-10 : R14.0 02/12/2019 Appointment: Jalyn Daily WPtel: [address] [place] [address] FOLLOW UP 02/12/2019 Appointment: Bhavna Escalante [address] [place] [address] [place] Canceled per guillermina. sending for mri [...] : M54.5 12/25/2018 Appointment: Bhavna Escalante [address] [id number] ACUTE ILLNESS 12/25/2018 Visit Diagnosis Plan: Low [...] : M54.5 12/12/2018 [facility]ment[facility] [facility] 12/12/2018 Patient Education: cyclobenzaprine- [employer] Couchevy [id number] https://www.[employer]/resources/getResource/61/ct2638f1-j502-9r4n-p7 Completed 12/12/2018 Appointment: Bhavna Escalante [address] [facility] US CANCELED 12/06/2018 Visit Diagnosis Plan: [...] : R53.83 10/10/2018 Appointment: Jalyn Daily WPtel: [address] [place], [place] [phone] [place] FOLLOW UP 10/10/2018 Visit Diagnosis Plan: [...] : I50.43 08/27/2018 Appointment: Jalyn Daily WPtel: [address] [place], [place] [phone] [place] FOLLOW UP 08/27/2018 Visit Diagnosis Plan: [...] Z79.01 08/13/2018 Appointment: Jalyn Daily WPtel[facility] [phone] [facility] FO[facility] 08/13/2018 Patient Education: bumetanide- [employer] Coupon [id number] https://www.[employer]/resources/getResource/61/4wa28n86-0md5-3x21-cu Completed 08/13/2018 Patient Education: levothyroxine- [employer] Coupon 56 [id number] https://www.[employer]/resources/getResource/61/5689532e-7179-8i29-mj Completed 08/13/2018 Patient Education: warfarin- [employer] Coupon [id number] 1 https://www.[employer]/resources/getResource/61/74725347-yy01-14m2-8d Completed 08/13/2018 Patient Education: pantoprazole- [employer] Coupon [phone] https://www.[employer]/resources/getResource/61/i7013b24-55d1-52ha-1n Completed 08/13/2018 Patient Education: spironolactone- [employer] Coupon 5 [id number] https://www.[employer]/resources/getResource/61/0ww758u3-s572-3599-ic Completed 08/13/2018 Visit Diagnosis Plan: Anemia, unspecified [...] : I50.43 07/10/2018 Appointment: Jalyn Daily WPtel: [address] [place] [address] FOLLOW UP 07/10/2018 Visit Diagnosis Plan: Acute [...] : I48.2 05/06/2018 Appointment: Jalyn Daily WPtel: [facility] US FOLLOW UP 05/06/2018 Visit Diagnosis [...] : R10.2 04/17/2018 Appointment: Bhavna Escalante [address] [place], [place] [phone] ACUTE ILLNESS 04/17/2018 Patient Education: Patient Medication Summary Completed 04/17/2018 Care Plan: CT ABDOMEN W/O & W/DYE LOINC : 04717-7 Pending 04/17/2018 Care Plan: CT PELVIS W/O & W/DYE LOINC : 58566-0 Pending 04/17/2018 Appointment: Jalyn Daily WPtel: [facility] [place] CANCELED 04/10/2018 Visit Diagnosis Plan: Chronic [...] : R06.09 03/26/2018 Appointment: Jalyn Daily WPtel: [facility] ER Follow UP 03/26/2018 Patient Education: Patient [...] ICD-10 : R41.82 03/15/2018 Appointment: Bhavna Escalante [address] [place], [place] [id number] ACUTE ILLNESS 03/15/2018 Patient Education: Patient Medication Summary Completed 03/15/2018 Visit Diagnosis Plan: Primary insomnia Discussion: Tri al of elavil 10mg po q HS ICD-9 : 780.52 ICD-10 : F51.01 02/26/2018 Visit Diagnosis Plan: Functional dyspepsia Discussion: Increase protonix to 40mg po BID Follow Up: 1 months ICD-9 : 536.8 ICD-10 : K30 02/26/2018 Appointment: Jalyn Daily WPtel: [address] [place] [address] WELCOME TO MEDICARE 02/26/2018 Patient Education: Patient Medication Summary Completed 02/26/2018 Referral: Song Noonan WPtel: [address] [place] [address] [place] Referral Initiated 02/19/2018 Appointment: Jalyn Daily WPtel: [address] [place] [address] [place] LAB 02/06/2018 Patient Education: Patient Medication Summary Completed 02/06/2018 Appointment: Jalyn Daily WPtel: [address] [place] [address] [place] CANCELED 02/01/2018 Care Plan: US EXAM ABDOM COMPLETE liver LOINC : [id number] Pending 01/31/2018 Visit Diagnosis Plan: Other fatigue Discussion: will o rder fasting blood work to assess for any anemia or infection especially due to recent surgery and bleeding risks. ICD-9 : 780.79 ICD-10 : R53.83 01/30/2018 Visit Diagnosis Plan: correction (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 Discussion: instructed [...] ICD-10 : I10 01/30/2018 Appointment: Bhavna Escalante [address] [place], [place] [id number] NEW PATIENT 01/30/2018 Patient Education: [...]
--- OUTSIDE RECORDS SUMMARY | 2020-02-10 14:10 | XMS REPORT | CCD ---
Author Author Riana Escalante Organization [facility] Address [address] [place] [address] Phone Unavailable Care Team Providers Care Chicken Buyer Name Role Phone PP Unavailable CCM Unavailable Summary Purpose Interface Exchange Insurance Providers Payer name Policy type / Coverage type Covered democrat ID Effective Begin Date Effective End Date WPS MEDICARE PART B [place] Medicare Part B [id number] 2017 Unknown Cigna Medicare Part B [id number] 2017 Unknown Family History Family History data not found Social History Social History Element Codes Description Effective Dates Tobacco history SNOMED CT: 705726781 Never smoker 01/30/[address]: 026002142 Never drinks alcohol 2017 Allergies, Adverse Reactions, Alerts Substance Reaction Codes Entered Date Inactivated Date Status * NO KNOWN ENVIRONMENTAL ALLERGIES Unknown 01/30/2018 N o Inactive Date Active * NO KNOWN FOOD ALLERGIES Unknown 01/30/2018 No Inactiv e Date Active * NO KNOWN DRUG ALLERGIES Unknown 01/30/2018 No Inactiv e Date Active Problems Condition Codes Effective Dates Condition Status Clostridium difficile colitis ICD-9: 008.45 ICD-10: A04.72 [...] failure ICD-9: 428.42 ICD-10: I50.42 08/13/2018 Active care home (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 ICD-9: V58.6 [...] Fill Instructions levothyroxine 25 mcg tablet RxNorm: 797693 1 Tablet(s) PO QD 201910/11/2019 Active spironolactone 25 mg tablet RxNorm: 650890 TAKE 1 TABLET BY DOUGLAS TH TWICE DAILY 06/22/2019 09/19/2019 Active losartan 25 mg tablet RxNorm: 949598 TAKE 1 TABLET BY M OUTH ONCE DAILY IN THE MORNING 05/26/2019 No Stop Date Active bumetanide 1 mg tablet RxNorm: 191879 TAKE 1 TABLET BY MOUTH TWICE DAILY AT 6AM AND 6PM 05/23/2019 No Stop Date Active vancomycin 125 mg capsule RxNorm: 188328 1 Capsule(s) Oral Q3D 04/10 No Stop Date Active potassium chloride ER 10 mEq capsule,extended release RxNorm : 574518 1 Capsule(s) Oral QD 04/23/2019 No Stop Date Active warfarin 5 mg tablet RxNorm: 030987 Tablet(s) Oral Take 1 tablet (5mg) by mouth on and Sun then 1/2 tablet (2.5mg) on Sun, Sun, , Sat and Sun 04/23/2019 No Stop Date Active pantoprazole 40 mg tablet,delayed release RxNorm: 999512 1-2 Ta blet(s) Oral QD 04/23/2019 05/23/2019 Inactive temazepam 15 mg capsule RxNorm: 094866 TAKE 1 TO 2 CAPS ULES BY MOUTH AT BEDTIME NEEDED FOR SLEEP 04/08/2019 No Stop Date Active Cipro 250 mg tablet RxNorm: 265764 1 Tablet(s) Oral two times a day 03/27/2019 04/03/2019 Inactive metronidazole 500 mg tablet RxNorm: 453173 1 Tablet(s) Oral thr ee times a day 03/27/2019 04/03/2019 Inactive bumetanide 1 mg tablet RxNorm: 840012 1 Tablet(s) PO BID (6am a nd 6pm) 02/13/2019 05/13/2019 Inactive levothyroxine 25 mcg tablet RxNorm: 658209 1 Tablet(s) PO QD 201807/13/2019 Inactive warfarin 5 mg tablet RxNorm: 419916 1 TABLET(S) PO TUES , WED, THURS, SAT AND SUN AND 1/2 TABLET ON 02/04/2019 02/11/2019 Inactive Kendra ent requests 90 days supply warfarin 5 mg tablet RxNorm: 047865 1 TABLET(S) PO TUES , WED, THURS, SAT AND SUN AND 1/2 TABLET ON 02/03/2019 02/03/2019 Inactive Kendra ent requests 90 days supply levothyroxine 25 mcg tablet RxNorm: 249847 1 Tablet(s) PO QD 201802/03/2019 Inactive warfarin 5 mg tablet RxNorm: 677195 1 Tablet(s) PO Tues , Wed, Thurs, Sat and Sun and 1/2 tablet on 01/31/2019 02/02/2019 Inactive temazepam 15 mg capsule RxNorm: 545172 TAKE 1 TO 2 CAPS ULES BY MOUTH AT BEDTIME NEEDED FOR SLEEP 01/31/2019 04/07/2019 Inactive cyclobenzaprine 10 mg tablet RxNorm: 974468 1 Tablet(s) PO Q8H as needed 12/30/2018 No Stop Date Active losartan 25 mg tablet RxNorm: 463064 1 Tablet(s) PO QAM 12/27/2018 Inactive Lidoderm 5 % topical patch RxNorm: 0374067 1 Application TOP Q12H and then off for 12 hours 12/25/2018 01/23/2019 Inactive Lidoderm 5 % topical patch RxNorm: 9607708 1 Application TOP Q12H and then off for 12 hours 12/25/2018 12/24/2018 Inactive cyclobenzaprine 5 mg tablet RxNorm: 641124 1 Tablet(s) PO Q8H a s needed 12/12/2018 12/24/2018 Inactive spironolactone 25 mg tablet RxNorm: 958517 1 Tablet(s) PO BID 09/2006/16/2019 Inactive change in directions to BID pantoprazole 40 mg tablet,delayed release RxNorm: 092479 1 Tabl et(s) PO QD 09/20/2018 04/22/2019 Inactive Patient requests 9 0 days supply spironolactone 25 mg tablet RxNorm: 749556 1 Tablet(s) PO BID 08/2609/19/2018 Inactive change in directions to BID pantoprazole 40 mg tablet,delayed release RxNorm: 838596 1 Tabl et(s) PO QD 08/15/2018 09/19/2018 Inactive Patient requests 9 0 days supply carvedilol 6.25 mg tablet RxNorm: 996936 1 Tablet(s) PO BID 019 02/08/2019 Inactive pantoprazole 40 mg tablet,delayed release RxNorm: 744822 1 Tablet(s) PO QD 1 TABLET(S) PO BID 08/13/2018 08/15/2018 Inactive Patient reque sts 90 days supply bumetanide 1 mg tablet RxNorm: 713411 1 Tablet(s) PO BID (6am a nd 6pm) 08/13/2018 02/08/2019 Inactive bumetanide 0.5 mg tablet RxNorm: 003021 1 Tablet(s) PO QPM three days a week--Sunday, Sun, Sunday instead of 1mg dose in evening 08/13/201812/2018 Inactive levothyroxine 25 mcg tablet RxNorm: 389226 1 Tablet(s) PO QD 201801/30/2019 Inactive spironolactone 25 mg tablet RxNorm: 615697 1 Tablet(s) PO QD 201808/25/2018 Inactive losartan 25 mg tablet RxNorm: 008253 1 Tablet(s) PO QAM 08/13/2018 Inactive warfarin 5 mg tablet RxNorm: 050474 1 Tablet(s) PO QD 08/13/201808/09 Inactive pantoprazole 40 mg tablet,delayed release RxNorm: 323854 1 TABL ET(S) PO BID 08/02/2018 08/12/2018 Inactive Patient requests 9 0 days supply temazepam 15 mg capsule RxNorm: 803139 1-2 Capsule(s) P O QHS as needed for sleep 2018 01/31/2019 Inactive Restoril 15 mg capsule RxNorm: 955635 1-2 Capsule(s) PO QHS as needed for sleep 06/04/2018 08/12/2018 Inactive potassium chloride ER 10 mEq capsule,extended release RxNorm : 276643 2 CAPSULE(S) PO QD 05/07/2018 08/04/2018 Inactive Patient reque sts 90 days supply temazepam 22.5 mg capsule RxNorm: 976784 1 Capsule(s) P O QHS as needed for sleep 05/06/2018 08/12/2018 Inactive potassium chloride ER 10 mEq capsule,extended release RxNorm : 388295 2 Capsule(s) PO QD 05/06/2018 05/06/2018 Inactive ropinirole 1 mg tablet RxNorm: 734418 1 TABLET(S) PO QHS FOR RE STLESS LEGS 03/27/2018 04/25/2018 Inactive Patient requests 9 0 days supply ropinirole 1 mg tablet RxNorm: 556298 1 Tablet(s) PO QHS for re stless legs 03/26/2018 03/26/2018 Inactive cefdinir 300 mg capsule RxNorm: 717450 1 Capsule(s) PO BID 03/26/20 18 03/30/2018 Inactive temazepam 15 mg capsule RxNorm: 987957 1 Capsule(s) PO QHS as neede d 03/20/2018 03/25/2018 Inactive Lunesta 3 mg tablet RxNorm: 783964 1 Tablet(s) PO QHS as needed for sleep 03/04/2018 03/19/2018 Inactive amitriptyline 10 mg tablet RxNorm: 910581 1 Tablet(s) PO QHS fo r sleep 02/26/2018 03/03/2018 Inactive escitalopram 20 mg tablet RxNorm: 305613 1 Tablet(s) PO QHS 018 08/12/2018 Inactive pantoprazole 40 mg tablet,delayed release RxNorm: 864920 1 Tabl et(s) PO BID 02/26/2018 04/26/2018 Inactive Coumadin 2.5 mg tablet RxNorm: 656439 1 Tablet(s) PO MWF 02/18/2018 0 07/22/2018 Inactive amiodarone 200 mg tablet RxNorm: 640418 1 Tablet(s) PO QD No Start Da te Active colestipol 1 gram tablet RxNorm: 5595975 1 Tablet(s) PO BID No Start Date Active pantoprazole 40 mg tablet,delayed release RxNorm: 435419 1 Tabl et(s) PO QD No Start Date Active pantoprazole 40 mg tablet,delayed release RxNorm: 757532 1 Tabl et(s) PO QD No Start Date 02/25/2018 Inactive bumetanide 1 mg tablet RxNorm: 451429 1 Tablet(s) PO BID (6am a nd 6pm) No Start Date 08/12/2018 Inactive potassium chloride ER 10 mEq tablet,extended release RxNorm: 210964 1 Tablet(s) PO QD No Start Date 02/11/2019 Inactive levothyroxine 25 mcg tablet RxNorm: 979325 1 Tablet(s) PO QD No Sta rt Date 08/12/2018 Inactive spironolactone 25 mg tablet RxNorm: 240086 1 Tablet(s) PO QD No Sta rt Date 08/12/2018 Inactive warfarin 5 mg tablet RxNorm: 782521 1 Tablet(s) PO MWF No Start Date 08/12/2018 Inactive warfarin 5 mg tablet RxNorm: 810965 1 Tablet(s) PO Tu , Wed, Th, Sat and Sun then 1/2 tablet (2.5mg) on Mon & Fri No Start Date 08/12/2018 Inactive losartan 25 mg tablet RxNorm: 516545 1 Tablet(s) PO QAM No Start Da te 08/12/2018 Inactive carvedilol 6.25 mg tablet RxNorm: 520034 1 Tablet(s) PO BID No Star t Date 08/12/2018 Inactive warfarin 2.5 mg tablet RxNorm: 655649 1 Tablet(s) PO Tues, Thur s, Sat and Sun No Start Date 08/12/2018 Inactive Coumadin 2.5 mg tablet RxNorm: 106440 Tablet(s) Mon Sun and Fri PO No Start Date 02/17/2018 Inactive Children's Multivitamin with Iron tablet RxNorm: 1 Table t(s) PO QD No Start Date 04/22/2019 Inactive potassium chloride ER 20 mEq tablet,extended release(p art/cryst) RxNorm: 9943575 2 Tablet(s) PO QD No Start Date 05/05/2018 Inactive Coumadin 5 mg tablet RxNorm: 776335 Tablet(s) PO No Start Date 2017 Inactive mexiletine 200 mg capsule RxNorm: 3861858 1 Capsule(s) PO BID No St art Date 03/25/2018 Inactive ferrous sulfate 325 mg (65 mg iron) tablet RxNorm: 803288 1 Tab let(s) PO QD No Start Date 07/22/2018 Inactive cyclobenzaprine 10 mg tablet RxNorm: 204016 1 Tablet(s) PO Q8H as needed No Start Date 12/29/2018 Inactive potassium chloride ER 10 mEq capsule,extended release RxNorm : 805011 2 Capsule(s) PO QD No Start Date 12/11/2018 Inactive Coumadin 5 mg tablet RxNorm: 345177 1 Tablet(s) PO , , Sat and Sun No Start Date 07/22/2018 Inactive Restoril 15 mg capsule RxNorm: 137142 1-2 Capsule(s) PO QHS as needed for sleep No Start Date 05/05/2018 Inactive metoprolol succinate ER 25 mg tablet,extended release 24 hr RxNorm: 857275 1 Tablet(s) PO QD No Start Date 08/12/2018 Inactive Entresto 24 mg-26 mg tablet RxNorm: 4431384 1 Tablet(s) PO BID No S tart Date 08/12/2018 Inactive warfarin 5 mg tablet RxNorm: 203001 1 Tablet(s) PO , Sun, , Sat and Sun and 1/2 tablet on Sun/Sun No Start Date 01/30/2019 Inactive amiodarone 200 mg tablet RxNorm: 543074 2 Tablet(s) PO BID No Start Date 10/09/2018 Inactive furosemide 20 mg tablet RxNorm: 144137 1 Tablet(s) PO QD No Start D ate 08/12/2018 Inactive amiodarone 200 mg tablet RxNorm: 186750 1 Tablet(s) PO BID No Start Date 08/26/2018 Inactive atorvastatin 40 mg tablet RxNorm: 739736 1 Tablet(s) PO QD No Start Date 08/12/2018 Inactive warfarin 5 mg tablet RxNorm: 449410 1/2 Tablet(s) PO on Mon, Sun, Fri, Sun then 1 tablet on Sun, , Sat No Start Date 04/22/2019 Inactive Medication Administered No Medication Administered data Immunizations Vaccine Codes Date Status Pneumovax CVX: 33 05/14/2019 Hepatitis A CVX: 83 03/25/2019 Influenza CVX: 135 03/25/2019 Results Observation Observation Code Item Item Code Result Date S ervice Location UA W/MICR 59363 UA Urine Appear Normal 02/06/2018 Unk nown UA W/MICR 68014 UA Protein 3+ 02/06/2018 Unknown UA W/MICR 70264 UA Hemoglobin Trace 02/06/2018 Unkno wn UA W/MICR 90441 UA Glucose Negative 02/06/2018 Unknown UA W/MICR 46585 UA Ketones Negative 02/06/2018 Unknown UA W/MICR 32896 UA pH 5.5 02/06/2018 Unknown UA W/MICR 08057 U Spec [place] 1.025 02/06/2018 Unkn own UA W/MICR 40560 UA Bilirubin Negative 02/06/2018 Unknow n UA W/MICR 75000 UA Leuk Esteras Trace 02/06/2018 Unk nown UA W/MICR 60337 UA Nitrite NEG 02/06/2018 Unknown UA W/MICR 88649 UA WBC/hpf 11-25 02/06/2018 Unknown UA W/MICR 85062 UA RBC hpf 0-5 02/06/2018 Unknown UA W/MICR 90737 UA Hyaline Cast 16-25 02/06/2018 Unk nown UA W/MICR 18875 UA Squam Epi Few 02/06/2018 Unknow n Procedures Procedure Codes Date URINALYSIS NONAUTO W/O SCOPE CPT-4: 52929 03/18/2019 URINE CULTURE/ COLONY COUNT CPT-4: 85813 03/18/2019 URINALYSIS NONAUTO W/O SCOPE CPT-4: 90059 12/12/2018 URINE CULTURE/ COLONY COUNT CPT-4: 77796 03/26/2018 URINALYSIS NONAUTO W/O SCOPE CPT-4: 67729 03/15/2018 INITIAL PREVENTIVE EXAM CPT-4: G0402 02/26/2018 URINALYSIS NONAUTO W/O SCOPE CPT-4: 42325 02/06/2018 URINE CULTURE/ COLONY COUNT CPT-4: 30536 02/06/2018 UA W/MICR CPT-4: 37830 02/06/2018 CUR TOBACCO NON-USER CPT-4: G8457 01/30/2018 REPAIR BLADDER & VAGINA CPT-4: 31055 01/06/2017 REPAIR OF RECTOCELE CPT-4: 86731 01/06/2017 BREAST SURGERY PROCEDURE CPT-4: 80598 Unknown LAPARO CHOLECYSTECTOMY/EXPLR CPT-4: 38869 Unknown HYSTERECTOMY/REVISE VAGINA CPT-4: 33968 Unknown Vital Signs Date Vital 05/07/2019 Blood Pressure 1: 122/60 Code: 8480-6 [...] 1: 106/58 Code: 8480-6 BMI: 26.3 Code: 46922-9 Heart Rate 1: 72 bpm Height: 4'10" Respiratory Rate: 20 bpm SpO2: 97% Tempera ture: 36.6 (C) / 97.8 (F) Weight: 128 lbs 07/10/2018 Blood Pressure 1: 122/70 Code: 8480-6 BMI: 28.6 Code: 32746-6 Heart Rate 1: 80 bpm Height: 4'10" Respiratory Rate: 20 bpm SpO2: 96% Tempera ture: 36.9 (C) / 98.4 (F) Weight: 139 lbs 05/06/2018 Blood Pressure 1: 112/54 Code: 8480-6 BMI: 27.5 Code: 96521-2 Heart Rate 1: 80 bpm Height: 4'10" [...] 1: 146/80 Code: 8480-6 BMI: 30.0 Code: 70625-7 Heart Rate 1: 76 bpm Height: 4'10" Respiratory Rate: 20 bpm SpO2: 97% Tempera ture: 36.7 (C) / 98.1 (F) Weight: 146 lbs 02/26/2018 Blood Pressure 1: 126/80 Code: 8480-6 BMI: 29.6 Code: 32203-7 Heart Rate 1: 80 bpm Height: 4'10" Respiratory Rate: 18 bpm SpO2: 96% Tempera ture: 37.0 (C) / 98.6 (F) Weight: 144 lbs 01/30/2018 Blood Pressure 1: 120/78 Code: 8480-6 BMI: 29.6 Code: 15848-0 Heart Rate 1: 84 bpm Height: 4'10" Respiratory Rate: 20 bpm SpO2: 97% Tempera ture: 36.0 (C) / 96.8 (F) Weight: 144 lbs Functional Status No Functional Status data Reason For Visit Reason For Visit Effective Dates Notes follow up 05/07/2019 follow up 04/23/2019 [facility] abdominal pain 03/27/2019 left lower quadrant [...] up 07/10/2018 Hospital/ER fwup follow up 05/06/2018 [facility] abdominal pain 04/17/2018 follow up 03/26/2018 dizziness 03/15/2018 Patient had bladder biopsy on Sunday by Dr Noonan. states she has been holding her coumadin since Sunday insomnia 02/26/2018 blood in urine 02/06/2018 ~generic 01/30/2018 Establishing Care Encounters Encounter Performer Location Codes Date ([id number]) OFFICE/OUTPATIENT VISIT EST Diagnosis: Clostridium difficile colitis[ICD10: A04.72] Farhat DAILY DO [facility] CPT-4: 84744 05/07/2019 ([id number]) OFFICE/OUTPATIENT VISIT EST Diagnosis: Clostridium difficile colitis[ICD10: A04.72] Diagnosis: Edema[ICD10: R60.9] Farhat DAILY DO [facility] CPT-4: 66221 04/23/2019 ([id number]) OFFICE/OUTPATIENT VISIT EST Diagnosis: Constipation[ICD10: K59.00] Diagnosis: Left lower quadrant pain[ICD10: R10.32] Bhavna DAILY DO [facility] CPT-4: 58935 03/27/2019 ([id number]) OFFICE/OUTPATIENT VISIT EST Diagnosis: Acute kidney failure, unspecified[ICD10: N17.9] Farhat DAILY DO [facility] CPT-4: 82397 03/18/2019 ([id number]) OFFICE/OUTPATIENT VISIT EST Diagnosis: Essential (primary) hypertension[ICD10: I10] Diagnosis: Chronic atrial fibrillation[ICD10: I48.2] Diagnosis: Mixed hyperlipidemia[ICD10: E78.2] Diagnosis: Other fatigue[ICD10: R53.83] Diagnosis: Abdominal distension (gaseous)[ICD10: R14.0] Farhat DAILY DO [facility] CPT-4: 37001 02/12/2019 ([id number]) OFFICE/OUTPATIENT VISIT EST Diagnosis: Low back pain[ICD10: M54.5] Bhavna DOUGHERTY S. Michelle [facility]ER [facility] CPT-4: 80669 12/25/2018 ([id number]) OFFICE/OUTPATIENT VISIT EST Diagnosis: Low back pain[ICD10: M54.5] Bhavna DOUGHERTY S. Michelle [facility] CPT-4: 66384 12/12/2018 ([id number]) OFFICE/OUTPATIENT VISIT EST Diagnosis: Anemia, unspecified[ICD10: D64.9] Diagnosis: Chronic atrial fibrillation[ICD10: I48.2] Diagnosis: Other fatigue[ICD10: R53.83] Farhat DAILY [facility] CPT-4: 93262 10/10/2018 ([id number]) OFFICE/OUTPATIENT VISIT EST Diagnosis: Acute on chronic combined systolic (congestive) and diastolic (congestive) heart failure[ICD10: I50.43] Diagnosis: Chronic atrial fibrillation[ICD10: I48.2] Farhat DAILY DO 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 CPT-4: 22569 08/13/2018 ([id number]) OFFICE/OUTPATIENT VISIT EST Diagnosis: Acute on chronic combined systolic (congestive) and diastolic (congestive) heart failure[ICD10: I50.43] Diagnosis: Essential (primary) hypertension[ICD10: I10] Diagnosis: Anemia, unspecified[ICD10: D64.9] Farhat DAILY [facility] CPT-4: 58606 07/10/2018 ([id number]) OFFICE/OUTPATIENT VISIT EST Diagnosis: Chronic atrial fibrillation[ICD10: I48.2] Diagnosis: Acute on chronic combined systolic (congestive) and diastolic (congestive) heart failure[ICD10: I50.43] Diagnosis: Localized edema[ICD10: R60.0] Farhat DAILY [facility] CPT-4: 16902 05/06/2018 ([id number]) OFFICE/OUTPATIENT VISIT EST Diagnosis: Generalized abdominal pain[ICD10: R10.84] Diagnosis: Pelvic and perineal pain[ICD10: R10.2] Diagnosis: Localized edema[ICD10: R60.0] Bhavna DAILY [facility] CPT-4: 11713 04/17/2018 ([id number]) OFFICE/OUTPATIENT VISIT EST Diagnosis: Urinary tract infection, site not specified[ICD10: N39.0] Diagnosis: Other insomnia[ICD10: G47.09] Diagnosis: Other fatigue[ICD10: R53.83] Diagnosis: Other forms of dyspnea[ICD10: R06.09] Diagnosis: Chronic atrial fibrillation[ICD10: I48.2] Diagnosis: Restless legs syndrome[ICD10: G25.81] Farhat DAILY 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] Diagnosis: Hematuria, unspecified[ICD10: R31.9] Bhavna DAILY [facility] CPT-4: 05219 03/15/2018 ([id number]) NURSE/OUTPATIENT VISIT EST Diagnosis: Urinary tract infection, site not specified[ICD10: N39.0] Farhat DAILY DO [facility] CPT-4: 17952 02/06/2018 OFFICE/OUTPATIENT VISIT NEW Diagnosis: care home (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[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] Diagnosis: Essential (primary) hypertension[ICD10: I10] Diagnosis: Mixed hyperlipidemia[ICD10: E78.2] Diagnosis: Other fatigue[ICD10: R53.83] Diagnosis: Cardiac arrhythmia, unspecified[ICD10: I49.9] Diagnosis: Generalized abdominal pain[ICD10: R10.84] Diagnosis: Urinary tract infection, site not specified[ICD10: N39.0] Diagnosis: Other insomnia[ICD10: G47.09] Bhavna DAILY [facility] CPT-4: 89021 01/30/2018 Plan of Care Planned Activity Notes Codes Status Date Appointment: Farhat Daily WPtel: [address] [place] [address] originally 4 mo follow up CANCELED 2018 Visit Diagnosis Plan: Clostridium difficile colitis Di scussion: Vancomycin daily for another week then 125mg every 3 days for 1 month then stop Fwup in September ICD-9 : 008.45 ICD-10 : A04.72 05/07/2019 Appointment: Farhat Daily WPtel: [facility] FOLLOW UP 05/07/2019 Visit Diagnosis Plan: Edema [...] : A04.72 04/23/2019 Appointment: Farhat Daily WPtel: [address] [place], [place] [id number] Hospital Follow Up 04/23/2019 Appointment: Bhavna Escalante [address] [facility] US CANCELED 04/15/2019 Visit Diagnosis Plan: Left lower quadrant pain Discuss ion: will start with abdominal xray to rule out acute obstruction/constipation. if no acute findings, will treat as diverticulitis due to patient's past history. ICD-9 : 789.04 ICD-10 : R10.32 03/27/2019 Appointment: Bhavna Escalante [address] [place] [address] ACUTE ILLNESS 03/27/2019 Visit Diagnosis Plan: Acute kidney failure, unspecifie d Discussion: Was given Meloxicam at urgent care--discussed no NSAIDs, hydrate, repeat Chem 7 in 1 week ICD-9 : 584.9 ICD-10 : N17.9 03/18/2019 Appointment: Farhat Daily WPtel: [address] [place], [place] [phone] ACUTE ILLNESS 03/18/2019 Visit Diagnosis Plan: Chronic atrial fibrillation Disc ussion: Following routinely with Cardiology ICD-9 : 427.31 ICD-10 : I48.2 02/12/2019 Visit Diagnosis Plan: Essential (primary) hypertension Discussion: Stable ICD-9 : 401.9 ICD-10 : I10 02/12/2019 Visit Diagnosis Plan: Abdominal distension (gaseous) D iscussion: Trial of Zenpep q AC ICD-9 : 787.3 ICD-10 : R14.0 02/12/2019 Appointment: Farhat Daily WPtel: [facility] US FOLLOW UP 02/12/2019 Appointment: Bhavna Escalante [address] [place] [address] US Canceled per guillermina. sending for mri [...] : M54.5 12/25/2018 Appointment: Bhavna Escalante [address] [place] [address] ACUTE ILLNESS 12/25/2018 Visit Diagnosis Plan: Low [...] ICD-10 : M54.5 12/12/2018 Appointment: Bhavna Escalante [address] [place] [address] ACUTE ILLNESS 12/12/2018 Patient Education: cyclobenzaprine- Optimize[employer] Coupon [id number] https://www.[employer]/resources/getResource/61/zp2715p7-x428-4m0j-s2 Completed 12/12/2018 Appointment: Bhavna Escalante [address] [place], [place] [phone] US CANCELED 12/06/2018 Visit Diagnosis Plan: Anemia, [...] : R53.83 10/10/2018 Appointment: Farhat Daily WPtel: [address] [facility] FOLLOW UP 10/10/2018 Visit Diagnosis Plan: Chronic [...] : I50.43 08/27/2018 [facility]ment[facility] [facility] [facility] 08/27/2018 Visit Diagnosis [...] ICD-10 : I48.2 08/13/2018 Visit Diagnosis Plan: care home (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 Discussion: Increase Coumadin to 5mg po daily and repeat PT/INR in 2 weeks ICD-9 : V58.61 ICD-10 : Z79.01 08/13/2018 Appointment: Farhat [facility] [facility] [facility] FO[facility] 08/13/2018 Patient Education: bumetanide- [employer] Coupon [phone] https://www.[employer]/samplemd/resources/getResource/61/5sb53h16-8np6-4z50-qv Completed 08/13/2018 Patient Education: levothyroxine- Optimize[employer] Coupon [phone] [id number] https://www.[employer]/samplemd/resources/getResource/61/9181000v-8038-2e57-ag Completed 08/13/2018 Patient Education: warfarin- [employer] Coupon [id number] https://www.[employer]/samplemd/resources/getResource/61/14814126-pg61-50p8-9a Completed 08/13/2018 Patient Education: pantoprazole- Opt[employer] Coupon [phone] https://www.[employer]/resources/[employer]/61/g0367l98-17p2-81va-6y Completed 08/13/2018 Patient Education: spironolactone- [employer] Coupon 5 [id number] https://www.[employer]/resources/[employer]/61/8ke557f7-a483-9747-tf Completed 08/13/2018 Visit Diagnosis Plan: Anemia, unspecified [...] : I50.43 07/10/2018 Appointment: Farhat Daily WPtel: [facility] FOLLOW UP 07/10/2018 Visit Diagnosis Plan: Acute on chronic c ombined systolic (congestive) and diastolic (congestive) heart failure Discussion: Much improved on entresto an d lasix See cardilogy tomorrow in [facility] Discussed restarting cardiac rehab in 3 weeks Check Chem 7 Follow Up: 2 months ICD-9 : 428.43 ICD-10 : I50.43 05/06/2018 Visit Diagnosis Plan: Chronic atrial fibrillation Disc ussion: S/P new pacemaker/defibrillator ICD-9 : 427.31 ICD-10 : I48.2 05/06/2018 Appointment: Farhat Daily [facility] [facility] 05/06/2018 Visit Diagnosis [...] : R10.2 04/17/2018 Appointment: Bhavna Escalante [address] [facility] ACUTE ILLNESS 04/17/2018 Patient Education: Patient Medication Summary Completed 04/17/2018 Care Plan: CT ABDOMEN W/O & W/DYE LOINC : 18863-3 Pending 04/17/2018 Care Plan: CT PELVIS W/O & W/DYE LOINC : 57550-6 Pending 04/17/2018 Appointment: Farhat Daily WPtel: [facility] US CANCELED 04/10/2018 Visit Diagnosis Plan: Other fatigue Discussion: Multif actoria ICD-9 : 780.79 ICD-10 : R53.83 03/26/2018 Visit Diagnosis Plan: Other insomnia Discussion: Wayne nue restoril at 15-30mg po q HS prn sleep ICD-9 : 327.09 ICD-10 : G47.09 03/26/2018 Visit Diagnosis Plan: Urinary tract infection, [...] : 786.09 ICD-10 : R06.09 03/26/2018 Appointment: Farhat Daily WPtel: [phone] [facility] ER Follow UP 03/26/2018 Patient Education: Patient [...] : R41.82 03/15/2018 Appointment: Bhavna Escalante [address] [place] [address] ACUTE ILLNESS 03/15/2018 Patient Education: Patient Medication Summary Completed 03/15/2018 Visit Diagnosis Plan: Primary insomnia Discussion: Tri al of elavil 10mg po q HS ICD-9 : 780.52 ICD-10 : F51.01 02/26/2018 Visit Diagnosis Plan: Functional dyspepsia Discussion: Increase protonix to 40mg po BID Follow Up: 1 months ICD-9 : 536.8 ICD-10 : K30 02/26/2018 Appointment: Farhat Daily WPtel: [phone] [facility] WELCOME TO MEDICARE 02/26/2018 Patient Education: Patient Medication Summary Completed 02/26/2018 [phone] [facility] Ref[facility] Initiated 02/19/2018 [facility]ment[phone] [facility] 02/06/2018 Patient Education: Patient Medication Summary Completed 02/06/2018 App[facility]ment: [phone] [facility] CANCELED 02/01/2018 Care Plan: US EXAM ABDOM COMPLETE liver LOINC : [id number] Pending 01/31/2018 Visit Diagnosis Plan: Essential (primary) [...] ICD-10 : R53.83 01/30/2018 Visit Diagnosis Plan: care home (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 Discussion: [...] ICD-10 : G47.09 01/30/2018 Appointment: Bhavna Escalante [address] [place], [place] [id number] NEW PATIENT [...]
--- OUTSIDE RECORDS SUMMARY | 2020-02-10 14:11 | XMS REPORT | CCD ---
Author Author Riana Escalante Organization [facility] Address [address] [place] [address] Phone Unavailable Care Team Providers Care Insurance Licensing Supervisor Name Role Phone PP Unavailable CCM Unavailable Summary Purpose Interface Exchange Insurance Providers Payer name Policy type / Coverage type Covered libertarian ID Effective Begin Date Effective End Date WPS MEDICARE PART B [place] Medicare Part B [id number] 2017 Unknown Cigna Medicare Part B [id number] 2017 Unknown Family History Family History data not found Social History Social History Element Codes Description Effective Dates Tobacco history SNOMED CT: 924691414 Never smoker 01/30/[address]: 358783452 Never drinks alcohol 2017 Allergies, Adverse Reactions, [...] failure ICD-9: 428.42 ICD-10: I50.42 08/13/2018 Active halfway (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 ICD-9: [...] Start Date Stop Date Status Fill Instructions spironolactone 25 mg tablet RxNorm: 866176 TAKE 1 TABLET BY DOUGLAS TH TWICE DAILY 06/22/2019 09/19/2019 Active losartan 25 mg tablet RxNorm: 581528 TAKE 1 TABLET BY M OUTH ONCE DAILY IN THE MORNING 05/26/2019 No Stop Date Active bumetanide 1 mg tablet RxNorm: 621423 TAKE 1 TABLET BY MOUTH TWICE DAILY AT 6AM AND 6PM 05/23/2019 No Stop Date Active vancomycin 125 mg capsule RxNorm: 702800 1 Capsule(s) Oral Q3D 04/10 No Stop Date Active potassium chloride ER 10 mEq capsule,extended release RxNorm : 149438 1 Capsule(s) Oral QD 04/23/2019 No Stop Date Active warfarin 5 mg tablet RxNorm: 909804 Tablet(s) Oral Take 1 tablet (5mg) by mouth on and Sun then 1/2 tablet (2.5mg) on Sun, Sun, , Sat and Sun 04/23/2019 No Stop Date Active pantoprazole 40 mg tablet,delayed release RxNorm: 083727 1-2 Ta blet(s) Oral QD 04/23/2019 05/23/2019 Inactive temazepam 15 mg capsule RxNorm: 259779 TAKE 1 TO 2 CAPS ULES BY MOUTH AT BEDTIME NEEDED FOR SLEEP 04/08/2019 No Stop Date Active Cipro 250 mg tablet RxNorm: 274024 1 Tablet(s) Oral two times a day 03/27/2019 04/03/2019 Inactive metronidazole 500 mg tablet RxNorm: 146440 1 Tablet(s) Oral thr ee times a day 03/27/2019 04/03/2019 Inactive bumetanide 1 mg tablet RxNorm: 184321 1 Tablet(s) PO BID (6am a nd 6pm) 02/13/2019 05/13/2019 Inactive levothyroxine 25 mcg tablet RxNorm: 180156 1 Tablet(s) PO QD 201808/02/2019 Active warfarin 5 mg tablet RxNorm: 528221 1 TABLET(S) PO TUES , WED, THURS, SAT AND SUN AND 1/2 TABLET ON 02/04/2019 02/11/2019 Inactive Kendra ent requests 90 days supply warfarin 5 mg tablet RxNorm: 816833 1 TABLET(S) PO TUES , WED, THURS, SAT AND SUN AND 1/2 TABLET ON 02/03/2019 02/03/2019 Inactive Kendra ent requests 90 days supply levothyroxine 25 mcg tablet RxNorm: 239156 1 Tablet(s) PO QD 201802/03/2019 Inactive warfarin 5 mg tablet RxNorm: 559874 1 Tablet(s) PO Tues , Wed, Thurs, Sat and Sun and 1/2 tablet on 01/31/2019 02/02/2019 Inactive temazepam 15 mg capsule RxNorm: 289566 TAKE 1 TO 2 CAPS ULES BY MOUTH AT BEDTIME NEEDED FOR SLEEP 01/31/2019 04/07/2019 Inactive cyclobenzaprine 10 mg tablet RxNorm: 313000 1 Tablet(s) PO Q8H as needed 12/30/2018 No Stop Date Active losartan 25 mg tablet RxNorm: 799336 1 Tablet(s) PO QAM 12/27/2018 Inactive Lidoderm 5 % topical patch RxNorm: 0728704 1 Application TOP Q12H and then off for 12 hours 12/25/2018 01/23/2019 Inactive Lidoderm 5 % topical patch RxNorm: 5056601 1 Application TOP Q12H and then off for 12 hours 12/25/2018 12/24/2018 Inactive cyclobenzaprine 5 mg tablet RxNorm: 563292 1 Tablet(s) PO Q8H a s needed 12/12/2018 12/24/2018 Inactive spironolactone 25 mg tablet RxNorm: 244292 1 Tablet(s) PO BID 09/2006/16/2019 Inactive change in directions to BID pantoprazole 40 mg tablet,delayed release RxNorm: 378306 1 Tabl et(s) PO QD 09/20/2018 04/22/2019 Inactive Patient requests 9 0 days supply spironolactone 25 mg tablet RxNorm: 473283 1 Tablet(s) PO BID 08/2609/19/2018 Inactive change in directions to BID pantoprazole 40 mg tablet,delayed release RxNorm: 580525 1 Tabl et(s) PO QD 08/15/2018 09/19/2018 Inactive Patient requests 9 0 days supply carvedilol 6.25 mg tablet RxNorm: 979375 1 Tablet(s) PO BID 019 02/08/2019 Inactive pantoprazole 40 mg tablet,delayed release RxNorm: 453089 1 Tablet(s) PO QD 1 TABLET(S) PO BID 08/13/2018 08/15/2018 Inactive Patient reque sts 90 days supply bumetanide 1 mg tablet RxNorm: 828074 1 Tablet(s) PO BID (6am a nd 6pm) 08/13/2018 02/08/2019 Inactive bumetanide 0.5 mg tablet RxNorm: 627702 1 Tablet(s) PO QPM three days a week--Sunday, Sun, Sunday instead of 1mg dose in evening 08/13/201812/2018 Inactive levothyroxine 25 mcg tablet RxNorm: 410682 1 Tablet(s) PO QD 201801/30/2019 Inactive spironolactone 25 mg tablet RxNorm: 633519 1 Tablet(s) PO QD 201808/25/2018 Inactive losartan 25 mg tablet RxNorm: 643025 1 Tablet(s) PO QAM 08/13/2018 Inactive warfarin 5 mg tablet RxNorm: 487476 1 Tablet(s) PO QD 08/13/201808/09 Inactive pantoprazole 40 mg tablet,delayed release RxNorm: 968718 1 TABL ET(S) PO BID 08/02/2018 08/12/2018 Inactive Patient requests 9 0 days supply temazepam 15 mg capsule RxNorm: 757578 1-2 Capsule(s) P O QHS as needed for sleep 2018 01/31/2019 Inactive Restoril 15 mg capsule RxNorm: 005604 1-2 Capsule(s) PO QHS as needed for sleep 06/04/2018 08/12/2018 Inactive potassium chloride ER 10 mEq capsule,extended release RxNorm : 909031 2 CAPSULE(S) PO QD 05/07/2018 08/04/2018 Inactive Patient reque sts 90 days supply temazepam 22.5 mg capsule RxNorm: 634707 1 Capsule(s) P O QHS as needed for sleep 05/06/2018 08/12/2018 Inactive potassium chloride ER 10 mEq capsule,extended release RxNorm : 820353 2 Capsule(s) PO QD 05/06/2018 05/06/2018 Inactive ropinirole 1 mg tablet RxNorm: 871600 1 TABLET(S) PO QHS FOR RE STLESS LEGS 03/27/2018 04/25/2018 Inactive Patient requests 9 0 days supply ropinirole 1 mg tablet RxNorm: 007328 1 Tablet(s) PO QHS for re stless legs 03/26/2018 03/26/2018 Inactive cefdinir 300 mg capsule RxNorm: 237898 1 Capsule(s) PO BID 03/26/20 18 03/30/2018 Inactive temazepam 15 mg capsule RxNorm: 103977 1 Capsule(s) PO QHS as neede d 03/20/2018 03/25/2018 Inactive Lunesta 3 mg tablet RxNorm: 665537 1 Tablet(s) PO QHS as needed for sleep 03/04/2018 03/19/2018 Inactive amitriptyline 10 mg tablet RxNorm: 250278 1 Tablet(s) PO QHS fo r sleep 02/26/2018 03/03/2018 Inactive escitalopram 20 mg tablet RxNorm: 326386 1 Tablet(s) PO QHS 018 08/12/2018 Inactive pantoprazole 40 mg tablet,delayed release RxNorm: 490003 1 Tabl et(s) PO BID 02/26/2018 04/26/2018 Inactive Coumadin 2.5 mg tablet RxNorm: 260609 1 Tablet(s) PO MWF 02/18/2018 0 07/22/2018 Inactive amiodarone 200 mg tablet RxNorm: 079833 1 Tablet(s) PO QD No Start Da te Active colestipol 1 gram tablet RxNorm: 2891636 1 Tablet(s) PO BID No Start Date Active pantoprazole 40 mg tablet,delayed release RxNorm: 085456 1 Tabl et(s) PO QD No Start Date Active pantoprazole 40 mg tablet,delayed release RxNorm: 268962 1 Tabl et(s) PO QD No Start Date 02/25/2018 Inactive bumetanide 1 mg tablet RxNorm: 554282 1 Tablet(s) PO BID (6am a nd 6pm) No Start Date 08/12/2018 Inactive potassium chloride ER 10 mEq tablet,extended release RxNorm: 746480 1 Tablet(s) PO QD No Start Date 02/11/2019 Inactive levothyroxine 25 mcg tablet RxNorm: 294445 1 Tablet(s) PO QD No Sta rt Date 08/12/2018 Inactive spironolactone 25 mg tablet RxNorm: 464266 1 Tablet(s) PO QD No Sta rt Date 08/12/2018 Inactive warfarin 5 mg tablet RxNorm: 591972 1 Tablet(s) PO MWF No Start Date 08/12/2018 Inactive warfarin 5 mg tablet RxNorm: 657714 1 Tablet(s) PO Tues , Wed, Th, Sat and Sun then 1/2 tablet (2.5mg) on Mon & Fri No Start Date 08/12/2018 Inactive losartan 25 mg tablet RxNorm: 947820 1 Tablet(s) PO QAM No Start Da te 08/12/2018 Inactive carvedilol 6.25 mg tablet RxNorm: 227254 1 Tablet(s) PO BID No Star t Date 08/12/2018 Inactive warfarin 2.5 mg tablet RxNorm: 410641 1 Tablet(s) PO Tues, Thur s, Sat and Sun No Start Date 08/12/2018 Inactive Coumadin 2.5 mg tablet RxNorm: 562049 Tablet(s) Mon Sun and Fri PO No Start Date 02/17/2018 Inactive Children's Multivitamin with Iron tablet RxNorm: 1 Table t(s) PO QD No Start Date 04/22/2019 Inactive potassium chloride ER 20 mEq tablet,extended release(p art/cryst) RxNorm: 4083215 2 Tablet(s) PO QD No Start Date 05/05/2018 Inactive Coumadin 5 mg tablet RxNorm: 822938 Tablet(s) PO No Start Date 2017 Inactive mexiletine 200 mg capsule RxNorm: 3059482 1 Capsule(s) PO BID No St art Date 03/25/2018 Inactive ferrous sulfate 325 mg (65 mg iron) tablet RxNorm: 916853 1 Tab let(s) PO QD No Start Date 07/22/2018 Inactive cyclobenzaprine 10 mg tablet RxNorm: 424186 1 Tablet(s) PO Q8H as needed No Start Date 12/29/2018 Inactive potassium chloride ER 10 mEq capsule,extended release RxNorm : 082674 2 Capsule(s) PO QD No Start Date 12/11/2018 Inactive Coumadin 5 mg tablet RxNorm: 485863 1 Tablet(s) PO Tu, Th, Sat and Sun No Start Date 07/22/2018 Inactive Restoril 15 mg capsule RxNorm: 472358 1-2 Capsule(s) PO QHS as needed for sleep No Start Date 05/05/2018 Inactive metoprolol succinate ER 25 mg tablet,extended release 24 hr RxNorm: 901389 1 Tablet(s) PO QD No Start Date 08/12/2018 Inactive Entresto 24 mg-26 mg tablet RxNorm: 3358795 1 Tablet(s) PO BID No S tart Date 08/12/2018 Inactive warfarin 5 mg tablet RxNorm: 874832 1 Tablet(s) PO , Sun, , Sat and Sun and 1/2 tablet on Sun/Fri No Start Date 01/30/2019 Inactive amiodarone 200 mg tablet RxNorm: 192723 2 Tablet(s) PO BID No Start Date 10/09/2018 Inactive furosemide 20 mg tablet RxNorm: 558633 1 Tablet(s) PO QD No Start D ate 08/12/2018 Inactive amiodarone 200 mg tablet RxNorm: 650748 1 Tablet(s) PO BID No Start Date 08/26/2018 Inactive atorvastatin 40 mg tablet RxNorm: 443718 1 Tablet(s) PO QD No Start Date 08/12/2018 Inactive warfarin 5 mg tablet RxNorm: 756638 1/2 Tablet(s) PO on Mon, Wed, Fri, Sun then 1 tablet on Sun, Th, Sat No Start Date 04/22/2019 Inactive Medication Administered No Medication Administered data Immunizations Vaccine Codes Date Status Pneumovax CVX: 33 05/14/2019 Hepatitis A CVX: 83 03/25/2019 Influenza CVX: 135 03/25/2019 Results Observation Observation Code Item Item Code Result Date S ervice Location UA W/MICR 02166 UA Urine Appear Normal 02/06/2018 Unk nown UA W/MICR 37603 UA Protein 3+ 02/06/2018 Unknown UA W/MICR 67620 UA Hemoglobin Trace 02/06/2018 Unkno wn UA W/MICR 12544 UA Glucose Negative 02/06/2018 Unknown UA W/MICR 94550 UA Ketones Negative 02/06/2018 Unknown UA W/MICR 21045 UA pH 5.5 02/06/2018 Unknown UA W/MICR 20843 U Spec [place] 1.025 02/06/2018 Unkn own UA W/MICR 32218 UA Bilirubin Negative 02/06/2018 Unknow n UA W/MICR 20361 UA Leuk Esteras Trace 02/06/2018 Unk nown UA W/MICR 30191 UA Nitrite NEG 02/06/2018 Unknown UA W/MICR 55417 UA WBC/hpf 11-25 02/06/2018 Unknown UA W/MICR 21511 UA RBC hpf 0-5 02/06/2018 Unknown UA W/MICR 38312 UA Hyaline Cast 16-25 02/06/2018 Unk nown UA W/MICR 74122 UA Squam Epi Few 02/06/2018 Unknow n Procedures Procedure Codes Date URINALYSIS NONAUTO W/O SCOPE CPT-4: 73611 03/18/2019 URINE CULTURE/ COLONY COUNT CPT-4: 97185 03/18/2019 URINALYSIS NONAUTO W/O SCOPE CPT-4: 49274 12/12/2018 URINE CULTURE/ COLONY COUNT CPT-4: 33957 03/26/2018 URINALYSIS NONAUTO W/O SCOPE CPT-4: 98542 03/15/2018 INITIAL PREVENTIVE EXAM CPT-4: G0402 02/26/2018 URINALYSIS NONAUTO W/O SCOPE CPT-4: 26845 02/06/2018 URINE CULTURE/ COLONY COUNT CPT-4: 64770 02/06/2018 UA W/MICR CPT-4: 14950 02/06/2018 CUR TOBACCO NON-USER CPT-4: G8457 01/30/2018 REPAIR BLADDER & VAGINA CPT-4: 42218 01/06/2017 REPAIR OF RECTOCELE CPT-4: 13142 01/06/2017 BREAST SURGERY PROCEDURE CPT-4: 80121 Unknown LAPARO CHOLECYSTECTOMY/EXPLR CPT-4: 67240 Unknown HYSTERECTOMY/REVISE VAGINA CPT-4: 29655 Unknown Vital Signs Date Vital 05/07/2019 Blood [...] 1: 106/58 Code: 8480-6 BMI: 26.3 Code: 32952-6 Heart Rate 1: 72 bpm Height: 4'10" Respiratory Rate: 20 bpm SpO2: 97% Tempera ture: 36.6 (C) / 97.8 (F) Weight: 128 lbs 07/10/2018 Blood Pressure 1: 122/70 Code: 8480-6 BMI: 28.6 Code: 66813-1 Heart Rate 1: 80 bpm Height: 4'10" Respiratory Rate: 20 bpm SpO2: 96% Tempera ture: 36.9 (C) / 98.4 (F) Weight: 139 lbs 05/06/2018 Blood Pressure 1: 112/54 Code: 8480-6 BMI: 27.5 Code: 30540-1 Heart Rate 1: 80 bpm Height: 4'10" [...] 1: 146/80 Code: 8480-6 BMI: 30.0 Code: 12024-1 Heart Rate 1: 76 bpm Height: 4'10" Respiratory Rate: 20 bpm SpO2: 97% Tempera ture: 36.7 (C) / 98.1 (F) Weight: 146 lbs 02/26/2018 Blood Pressure 1: 126/80 Code: 8480-6 BMI: 29.6 Code: 19638-9 Heart Rate 1: 80 bpm Height: 4'10" Respiratory Rate: 18 bpm SpO2: 96% Tempera ture: 37.0 (C) / 98.6 (F) Weight: 144 lbs 01/30/2018 Blood Pressure 1: 120/78 Code: 8480-6 BMI: 29.6 Code: 66813-1 Heart Rate 1: 84 bpm Height: 4'10" Respiratory Rate: 20 bpm SpO2: 97% Tempera ture: 36.0 (C) / 96.8 (F) Weight: 144 lbs Functional Status No Functional Status data Reason For Visit Reason For Visit Effective Dates Notes follow up 05/07/2019 follow up 04/23/2019 [facility] abdominal pain 03/27/2019 left lower quadrant back [...] up 07/10/2018 Hospital/ER fw follow up 05/06/2018 [facility] abdominal pain 04/17/2018 follow up 03/26/2018 dizziness 03/15/2018 Patient had bladder biopsy on Sunday by Dr Noonan. states she has been holding her coumadin since Sunday insomnia 02/26/2018 blood in urine 02/06/2018 ~generic 01/30/2018 Establishing Care Encounters Encounter Performer Location Codes Date () OFFICE/OUTPATIENT VISIT EST Diagnosis: Clostridium difficile colitis[ICD10: A04.72] Jalyn DAILY [facility] CPT-4: 76826 05/07/2019 ([id number]) OFFICE/OUTPATIENT VISIT EST Diagnosis: Clostridium difficile colitis[ICD10: A04.72] Diagnosis: Edema[ICD10: R60.9] Jalyn DAILY DO [facility] CPT-4: 97382 04/23/2019 ([id number]) OFFICE/OUTPATIENT VISIT EST Diagnosis: Constipation[ICD10: K59.00] Diagnosis: Left lower quadrant pain[ICD10: R10.32] Bhavna DAILY [facility] CPT-4: 29679 03/27/2019 ([id number]) OFFICE/OUTPATIENT VISIT EST Diagnosis: Acute kidney failure, unspecified[ICD10: N17.9] Jalyn DAILY DO [facility] CPT-4: 89972 03/18/2019 ([id number]) OFFICE/OUTPATIENT VISIT EST Diagnosis: Essential (primary) hypertension[ICD10: I10] Diagnosis: Chronic atrial fibrillation[ICD10: I48.2] Diagnosis: Mixed hyperlipidemia[ICD10: E78.2] Diagnosis: Other fatigue[ICD10: R53.83] Diagnosis: Abdominal distension (gaseous)[ICD10: R14.0] Jalyn DAILY DO [facility] CPT-4: 64241 02/12/2019 ([id number]) OFFICE/OUTPATIENT VISIT EST Diagnosis: Low back pain[ICD10: M54.5] Bhavna DOUGHERTY S. O RENDER [employer] [facility] CPT-4: 75426 12/25/2018 ([id number]) OFFICE/OUTPATIENT VISIT EST Diagnosis: Low back pain[ICD10: M54.5] Bhavna DOUGHERTY S. O RENDER [employer] [facility] CPT-4: 67202 12/12/2018 ([id number]) OFFICE/OUTPATIENT VISIT EST Diagnosis: Anemia, unspecified[ICD10: D64.9] Diagnosis: Chronic atrial fibrillation[ICD10: I48.2] Diagnosis: Other fatigue[ICD10: R53.83] Jalyn DAILY DO [facility] CPT-4: 44651 10/10/2018 ([id number]) OFFICE/OUTPATIENT VISIT EST Diagnosis: Acute on chronic combined systolic (congestive) and diastolic (congestive) heart failure[ICD10: I50.43] Diagnosis: Chronic atrial fibrillation[ICD10: I48.2] Jalyn DAILY DO [facility] CPT-4: 14451 08/27/2018 ([id number]) OFFICE/OUTPATIENT VISIT EST Diagnosis: Chronic atrial fibrillation[ICD10: I48.2] 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] Diagnosis: halfway (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[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] Jalyn DAILY [employer] [facility] CPT-4: 81263 08/13/2018 ([id number]) OFFICE/OUTPATIENT VISIT EST Diagnosis: Acute on chronic combined systolic (congestive) and diastolic (congestive) heart failure[ICD10: I50.43] Diagnosis: Essential (primary) hypertension[ICD10: I10] Diagnosis: Anemia, unspecified[ICD10: D64.9] Jalyn DAILY [employer] [facility] CPT-4: 33740 07/10/2018 ([id number]) OFFICE/OUTPATIENT VISIT EST Diagnosis: Chronic atrial fibrillation[ICD10: I48.2] Diagnosis: Acute on chronic combined systolic (congestive) and diastolic (congestive) heart failure[ICD10: I50.43] Diagnosis: Localized edema[ICD10: R60.0] Jalyn DAILY [employer] [facility] CPT-4: 53938 05/06/2018 ([id number]) OFFICE/OUTPATIENT VISIT EST Diagnosis: Generalized abdominal pain[ICD10: R10.84] Diagnosis: Pelvic and perineal pain[ICD10: R10.2] Diagnosis: Localized edema[ICD10: R60.0] Bhavna DAILY [employer] [facility] CPT-4: 45404 04/17/2018 ([id number]) OFFICE/OUTPATIENT VISIT EST Diagnosis: Urinary tract infection, site not specified[ICD10: N39.0] Diagnosis: Other insomnia[ICD10: G47.09] Diagnosis: Other fatigue[ICD10: R53.83] Diagnosis: Other forms of dyspnea[ICD10: R06.09] Diagnosis: Chronic atrial fibrillation[ICD10: I48.2] Diagnosis: Restless legs syndrome[ICD10: G25.81] Jalyn DAILY [employer] [facility] CPT-4: 15613 03/26/2018 ([id number]) OFFICE/OUTPATIENT VISIT EST Diagnosis: Altered mental status, unspecified[ICD10: R41.82] 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] Diagnosis: Hematuria, unspecified[ICD10: R31.9] Bhavna DAILY [employer] [facility] CPT-4: 53727 03/15/2018 ([id number]) NURSE/OUTPATIENT VISIT EST Diagnosis: Urinary tract infection, site not specified[ICD10: N39.0] Jalyn Leigh NESSAAUGIEANIBAL [facility] CPT-4: 05216 02/06/2018 OFFICE/OUTPATIENT VISIT NEW Diagnosis: halfway (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[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] Diagnosis: Essential (primary) hypertension[ICD10: I10] Diagnosis: Mixed hyperlipidemia[ICD10: E78.2] Diagnosis: Other fatigue[ICD10: R53.83] Diagnosis: Cardiac arrhythmia, unspecified[ICD10: I49.9] Diagnosis: Generalized abdominal pain[ICD10: R10.84] Diagnosis: Urinary tract infection, site not specified[ICD10: N39.0] Diagnosis: Other insomnia[ICD10: G47.09] Bhavna Escalante JALYN Leigh NESSAROSS [facility] CPT-4: 88293 01/30/2018 Plan of Care Planned Activity Notes Codes Status Date Appointment: Jalyn Dailytel: [address] [place] [address] originally 4 mo follow up CANCELED 2018 Visit Diagnosis Plan: Clostridium difficile colitis Di scussion: Vancomycin daily for another week then 125mg every 3 days for 1 month then stop Fwup in September ICD-9 : 008.45 ICD-10 : A04.72 05/07/2019 Appointment: Jalyn Dailytel: [address] [place] [address] FOLLOW UP 05/07/2019 Visit Diagnosis Plan: Edema [...] : A04.72 04/23/2019 Appointment: Jalyn Daily WPtel: [address] [place] [address] Hospital Follow Up 04/23/2019 Appointment: Bhavna Escalante [address] [facility] US CANCELED 04/15/2019 Visit Diagnosis Plan: Left lower quadrant pain Discuss ion: will start with abdominal xray to rule out acute obstruction/constipation. if no acute findings, will treat as diverticulitis due to patient's past history. ICD-9 : 789.04 ICD-10 : R10.32 03/27/2019 Appointment: Bhavna Escalante [address] [id number] ACUTE ILLNESS 03/27/2019 Visit Diagnosis Plan: Acute kidney failure, unspecifie d Discussion: Was given Meloxicam at urgent care--discussed no NSAIDs, hydrate, repeat Chem 7 in 1 week ICD-9 : 584.9 ICD-10 : N17.9 03/18/2019 Appointment: Jalyn Daily WPtel: [address] [place] [address] ACUTE ILLNESS 03/18/2019 Visit Diagnosis Plan: Chronic atrial fibrillation Disc ussion: Following routinely with Cardiology ICD-9 : 427.31 ICD-10 : I48.2 02/12/2019 Visit Diagnosis Plan: Essential (primary) hypertension Discussion: Stable ICD-9 : 401.9 ICD-10 : I10 02/12/2019 Visit Diagnosis Plan: Abdominal distension (gaseous) D iscussion: Trial of Zenpep q AC ICD-9 : 787.3 ICD-10 : R14.0 02/12/2019 Appointment: Jalyn Daily WPtel: [address] [place], [place] [address] US FOLLOW UP 02/12/2019 Appointment: Bhavna Escalante [address] [facility] US Canceled per guillermina. sending for mri [...] ICD-10 : M54.5 12/25/2018 Appointment: Bhavna Escalante [address] [place], [place] [id number] ACUTE ILLNESS 12/25/2018 Visit Diagnosis Plan: Low [...] ICD-10 : M54.5 12/12/2018 Appointment: Bhavna Escalante [address] [place], [place] [phone] ACUTE ILLNESS 12/12/2018 Patient Education: cyclobenzaprine- [employer] Coupon [id number] https://www.Fanbase/samplemd/resources/getResource/61/vy8944b2-p173-3y6b-a6 Completed 12/12/2018 Appointment: Bhavna Escalante [address] [place], [place] [phone] US CANCELED 12/06/2018 Visit Diagnosis Plan: Anemia, [...] : R53.83 10/10/2018 [facility]ointment: [facility]al[facility] [phone] [facility] [facility] 10/10/2018 Visit Diagnosis Plan: [...] : I50.43 08/27/2018 Appointment: Jalyn Daily [facility]Ptel[facility] [phone] [facility] [address] [facility] [address] [facility] 08/27/2018 Visit Diagnosis Plan: Chronic [...] ICD-10 : I48.2 08/13/2018 Visit Diagnosis Plan: halfway (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 Discussion: Increase Coumadin to 5mg po daily and repeat PT/INR in 2 weeks ICD-9 : V58.61 ICD-10 : Z79.01 08/13/2018 Appointment: Jalyn Daily [facility]Ptel[facility] [phone] [facility] [facility] 08/13/2018 Patient Education: bumetanide- [employer] Coupon [phone] https://www.Fanbase/[employer]/resources/getResource/61/6vg19i81-7xh5-8g49-dq Completed 08/13/2018 Patient Education: levothyroxine- [employer] Coupon [phone] https://www.Fanbase/[employer]/resources/getResource/61/4835706c-5082-7i01-mt Completed 08/13/2018 Patient Education: warfarin- [employer] Coupon [id number] https://www.Fanbase/[employer]/resources/getResource/61/73846404-pp03-19j3-4n Completed 08/13/2018 Patient Education: pantoprazole- [employer] Coupon [phone] https://www.Fanbase/samplemd/resources/getResource/61/m8797e10-68d6-25vv-6q Completed 08/13/2018 Patient Education: spironolactone- [employer] Coupon [phone] https://www.Fanbase/[employer]/resources/getResource/61/8eo221n4-l097-0891-zn Completed 08/13/2018 Visit Diagnosis Plan: Anemia, unspecified [...] : I50.43 07/10/2018 Appointment: Jalyn Daily WPtel: [address] [place], [place] [phone] [address] FOLLOW UP 07/10/2018 Visit Diagnosis Plan: [...] : I48.2 05/06/2018 Appointment: Jalyn Daily WPtel: [phone] [facility] US FOLLOW UP 05/06/2018 Visit Diagnosis [...] ICD-10 : R10.2 04/17/2018 Appointment: Bhavna Escalante [address] [place], [place] [phone] ACUTE ILLNESS 04/17/2018 Patient Education: Patient Medication Summary Completed 04/17/2018 Care Plan: CT ABDOMEN W/O & W/DYE LOINC : 51440-2 Pending 04/17/2018 Care Plan: CT PELVIS W/O & W/DYE LOINC : 66838-5 Pending 04/17/2018 Appointment: Jalyn Daily WPtel: [address] [place], [place] [phone] US CANCELED 04/10/2018 Visit Diagnosis Plan: Other [...] : R06.09 03/26/2018 Appointment: Jalyn Daily WPtel: [address] [place] [address] ER Follow UP 03/26/2018 Patient Education: Patient [...] ICD-10 : R41.82 03/15/2018 Appointment: Bhavna Escalante [address] [place] [address] ACUTE ILLNESS 03/15/2018 Patient Education: Patient Medication Summary Completed 03/15/2018 Visit Diagnosis Plan: Primary insomnia Discussion: Tri al of elavil 10mg po q HS ICD-9 : 780.52 ICD-10 : F51.01 02/26/2018 Visit Diagnosis Plan: Functional dyspepsia Discussion: Increase protonix to 40mg po BID Follow Up: 1 months ICD-9 : 536.8 ICD-10 : K30 02/26/2018 Appointment: Jalyn Daily WPtel: [phone] WELCOME TO MEDICARE 02/26/2018 Patient Education: Patient Medication Summary Completed 02/26/2018 Referral: Song Noonan WPtel: [phone] [address] [place] Referral Initiated 02/19/2018 Appointment: Jalyn Daily [facility]Ptel: [phone] [facility] [facility] LAB 02/06/2018 Patient Education: Patient Medication Summary Completed 02/06/2018 Appointment: Ignacio Dailyqueline JaniceRuben WPtel: [phone] [facility] [facility] CANCELED 02/01/2018 Care Plan: US EXAM ABDOM COMPLETE liver LOINC : 89860-9 Pending 01/31/2018 Visit Diagnosis Plan: Other fatigue Discussion: will o rder fasting blood work to assess for any anemia or infection especially due to recent surgery and bleeding risks. 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
--- OUTSIDE RECORDS SUMMARY | 2020-02-10 14:12 | XMS REPORT | CCD ---
Author Author Riana Escalante Organization [facility] Address [address] [place] [address] Phone Unavailable Care Team Providers Care Wildlife Veterinarian Name Role Phone PP Unavailable CCM Unavailable Summary Purpose Interface Exchange Insurance Providers Payer name Policy type / Coverage type Covered alliance party ID Effective Begin Date Effective End Date WPS MEDICARE PART B [place] Medicare Part B [id number] Unknown Cign[employer] Medicare Part B [id number] Unknown Family History Family History data not found Social History Social History Element Codes Description Effective Dates Tobacco history SNOMED CT: 982260022 Never smoker 01/30/[address]: 942147204 Never drinks alcohol 01/30/2018 Allergies, Adverse Reactions, Alerts Substance Reaction Codes Entered Date Inactivated Date Status * NO KNOWN FOOD ANNE MARIE RGIES Unknown 01/30/2018 No Inactive Date Active * NO KNOWN ENVIRONME NTAL ALLERGIES Unknown 01/30/2018 No Inactive Date Active * NO KNOWN DRUG ANNE MARIE RGIES Unknown 01/30/2018 No Inactive Date Active Past Medical History Illness Codes Condition Status Onset Date Resolved Date Acute kidney failure , unspecified ICD-9: 584.9 ICD-10: N17.9 Active 03/18/2019 Unknown Abdominal distension (gaseous) ICD-9: 787.3 ICD-10: R14.0 Active 02/12/2019 Unknown Chronic atrial fibri llation ICD-9: 427.31 ICD-10: I48.2 Active 03/26/2018 Unknown Essential (primary) hypertension ICD-9: 401.9 ICD-10: I10 Active 01/30/2018 Unknown Mixed hyperlipidemia ICD-9: 272.2 ICD-10: E78.2 Active 01/30/2018 Unknown Other fatigue ICD-9: 780.79 ICD-10: R53.83 Active 01/30/2018 Unknown Low back pain ICD-9: 724.2 ICD-10: M54.5 Active 12/12/2018 Unknown Anemia, unspecified ICD- 9: 285.9 ICD-10: D64.9 Active 07/10/2018 Unknown Acute on chronic com bined systolic (congestive) and diastolic (congestive) heart failure ICD-9: 428.43 ICD-10: I50.43 Active 05/06/2018 Unknown Cardiac arrhythmia, unspecified ICD-9: 427.9 ICD-10: I49.9 Active 01/30/2018 Unknown 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 ICD-9: 428.42 ICD-10: I50.42 Active 08/13/2018 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 ICD-10: Z79.01 Active 01/30/2018 Unknown Localized edema ICD-9: 782.3 ICD-10: R60.0 Active 04/17/2018 Unknown Generalized abdomina l pain ICD-9: 789.07 ICD-10: R10.84 Active 01/30/2018 Unknown Pelvic and perineal pain ICD-9: 625.9 ICD-10: R10.2 Active 04/17/2018 Unknown Other forms of dyspnea ICD-9: 786.09 ICD-10: R06.09 Active 03/26/2018 Unknown Other insomnia ICD-9: 327.09 ICD-10: G47.09 Active 01/30/2018 Unknown Restless legs syndrome ICD-9: 333.94 ICD-10: G25.81 Active 03/26/2018 Unknown Urinary tract infect ion, site not specified ICD-9: 599.0 ICD-10: N39.0 Active 01/30/2018 Unknown Altered mental statu s, unspecified ICD-9: 780.97 ICD-10: R41.82 Active 03/15/2018 Unknown Hematuria, unspecified ICD-9: 599.70 ICD-10: R31.9 Active 03/15/2018 Unknown Encounter for genera l adult medical examination with abnormal findings ICD-9: V70.0 ICD-10: Z00.01 Active 02/26/2018 Unknown Functional dyspepsia ICD-9: 536.8 ICD-10: K30 Active 02/26/2018 Unknown Primary insomnia ICD-9: 780.52 ICD-10: F51.01 Active 02/26/2018 Unknown Hypertension Unknown Active 01/30/2018 Unknow n Problems Condition Codes Effectiv e Dates Condition Status Acute kidney failure , unspecified ICD-9: 584.9 ICD-10: N17.9 03/18/2019 Active Abdominal distension (gaseous) ICD-9: 787.3 ICD-10: R14.0 02/12/2019 Active Chronic atrial fibri llation ICD-9: 427.31 ICD-10: I48.2 03/26/2018 Active Essential (primary) hypertension ICD-9: 401.9 ICD-10: I10 01/30/2018 Active Mixed hyperlipidemia ICD-9: 272.2 ICD-10: E78.2 01/30/2018 Active Other fatigue ICD-9: 780.79 ICD-10: R53.83 01/30/2018 Active Low back pain ICD-9: 724.2 ICD-10: M54.5 12/12/2018 Active Anemia, unspecified ICD- 9: 285.9 ICD-10: D64.9 07/10/2018 Active Acute on chronic com bined systolic (congestive) and diastolic (congestive) heart failure ICD-9: 428.43 ICD-10: I50.43 05/06/2018 Active Cardiac arrhythmia, unspecified ICD-9: 427.9 ICD-10: I49.9 01/30/2018 Active 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 ICD-9: 428.42 ICD-10: I50.42 08/13/2018 Active 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 ICD-9: V58.61 ICD-10: Z79.01 01/30/2018 Active Localized edema ICD-9: 782.3 ICD-10: R60.0 04/17/2018 Active Generalized abdomina l pain ICD-9: 789.07 ICD-10: R10.84 01/30/2018 Active Pelvic and perineal pain ICD-9: 625.9 ICD-10: R10.2 04/17/2018 Active Other forms of dyspnea ICD-9: 786.09 ICD-10: R06.09 03/26/2018 Active Other insomnia ICD-9: 327.09 ICD-10: G47.09 01/30/2018 Active Restless legs syndrome ICD-9: 333.94 ICD-10: G25.81 03/26/2018 Active Urinary tract infect ion, site not specified ICD-9: 599.0 ICD-10: N39.0 01/30/2018 Active Altered mental statu s, unspecified ICD-9: 780.97 ICD-10: R41.82 03/15/2018 Active Hematuria, unspecified ICD-9: 599.70 ICD-10: R31.9 03/15/2018 Active Encounter for genera l adult medical examination with abnormal findings ICD-9: V70.0 ICD-10: Z00.01 02/26/2018 Active Functional dyspepsia ICD-9: 536.8 ICD-10: K30 02/26/2018 Active Primary insomnia ICD-9: 780.52 ICD-10: F51.01 02/26/2018 Active Hypertension Unknown 01/30/2018 Active Medications Medication Codes Instruc tions Start Date Stop Date Sta tus Fill Instructions bumetanide 1 mg tablet RxNorm: 756191 1 Tablet(s) PO BID (6am and 6pm) 02/13/2019 05/13/2019 Ac tive levothyroxine 25 mcg tablet RxNorm: 795076 1 Tablet(s) PO QD 02/04/2019 08/02/2019 Active warfarin 5 mg tablet RxNorm: 379381 1 TABLET(S) PO TUES, WED, THURS, SAT AND SUN AND 1/2 TABLET ON 02/04/2019 02/11/2019 Inactive Patient requests 90 days supply warfarin 5 mg tablet RxNorm: 517698 1 TABLET(S) PO TUES, WED, THURS, SAT AND SUN AND 1/2 TABLET ON 02/03/2019 02/03/2019 Inactive Patient requests 90 days supply temazepam 15 mg capsule RxNorm: 324528 TAKE 1 TO 2 CAPSULES BY MOUTH AT BEDTIME NEEDED FOR SLEEP 01/31/2019 No Stop Date Active levothyroxine 25 mcg tablet RxNorm: 568324 1 Tablet(s) PO QD 01/31/2019 02/03/2019 Inactive warfarin 5 mg tablet RxNorm: 026368 1 Tablet(s) PO Tues, Wed, Thurs, Sat and Sun and 1/2 tablet on 01/31/2019 02/02/2019 Inactive cyclobenzaprine 10 m g tablet RxNorm: 009587 1 Tablet(s) PO Q8H as needed 12/30/2018 No Stop Date Active losartan 25 mg tablet RxNorm: 069773 1 Tablet(s) PO QAM 12/27/2018 06/24/2019 Active Lidoderm 5 % topical patch RxNorm: 0032271 1 Application TOP Q1 2H and then off for 12 hours 12/25/2018 01/23/2019 Inactive Lidoderm 5 % topical patch RxNorm: 0199341 1 Application TOP Q1 2H and then off for 12 hours 12/25/2018 12/24/2018 Inactive cyclobenzaprine 5 mg tablet RxNorm: 836963 1 Tablet(s) PO Q8H as needed 12/12/2018 12/24/2018 In active spironolactone 25 mg tablet RxNorm: 935568 1 Tablet(s) PO BID 09/20/2018 06/16/2019 Active change in directions to BID pantoprazole 40 mg t ablet,delayed release RxNorm: 360623 1 Tablet(s) PO QD 09/20/2018 06/16/2019 Ac tive Patient requests 90 days supply spironolactone 25 mg tablet RxNorm: 496237 1 Tablet(s) PO BID 08/26/2018 09/19/2018 Inactive change in directions to BID pantoprazole 40 mg t ablet,delayed release RxNorm: 867875 1 Tablet(s) PO QD 08/15/2018 09/19/2018 In active Patient requests 90 days supply carvedilol 6.25 mg t ablet RxNorm: 437951 1 Tablet(s) PO BID 08/13/2018 02/08/2019 Inactive pantoprazole 40 mg t ablet,delayed release RxNorm: 436836 1 Tablet(s) PO QD 1 T ABLET(S) PO BID 08/13/2018 08/15/2018 Inactive Patient requests 90 days supply bumetanide 1 mg tablet RxNorm: 824513 1 Tablet(s) PO BID (6am and 6pm) 08/13/2018 02/08/2019 In active bumetanide 0.5 mg ta blet RxNorm: 225017 1 Tablet(s) PO QPM th ree days a week--Sunday, Sun, Sunday instead of 1mg dose in evening 08/13/2018 02/11/2019 Inactive levothyroxine 25 mcg tablet RxNorm: 766636 1 Tablet(s) PO QD 08/13/2018 01/30/2019 Inactive spironolactone 25 mg tablet RxNorm: 141975 1 Tablet(s) PO QD 08/13/2018 08/25/2018 Inactive losartan 25 mg tablet RxNorm: 249537 1 Tablet(s) PO QAM 08/13/2018 12/26/2018 Inactive warfarin 5 mg tablet RxNorm: 261273 1 Tablet(s) PO QD 08/13/2018 08/26/2018 Inactive pantoprazole 40 mg t ablet,delayed release RxNorm: 167894 1 TABLET(S) PO BID 08/02/2018 08/12/2018 In active Patient requests 90 days supply temazepam 15 mg capsule RxNorm: 582250 1-2 Capsule(s) PO QHS as needed for slee p 2018 01/31/2019 In active Restoril 15 mg capsule RxNorm: 500911 1-2 Capsule(s) PO QHS as needed for slee p 06/04/2018 08/12/2018 In active potassium chloride E R 10 mEq capsule,extended release RxNorm: 306616 2 CAPSULE(S) PO QD 05/07/2018 08/04/2018 Inactive Patient requests 90 days supply temazepam 22.5 mg ca psule RxNorm: 391048 1 Capsule(s) PO QHS a s needed for sleep 05/06/2018 08/12/2018 In active potassium chloride E R 10 mEq capsule,extended release RxNorm: 732741 2 Capsule(s) PO QD 05/06/2018 05/06/2018 Inactive ropinirole 1 mg tablet RxNorm: 344066 1 TABLET(S) PO QHS FOR RESTLESS LEGS 03/27/2018 04/25/2018 In active Patient requests 90 days supply ropinirole 1 mg tablet RxNorm: 209488 1 Tablet(s) PO QHS for restless legs 03/26/2018 03/26/2018 In active cefdinir 300 mg capsule RxNorm: 136118 1 Capsule(s) PO BID 03/26/2018 03/30/2018 Inactive temazepam 15 mg capsule RxNorm: 764080 1 Capsule(s) PO QHS as needed 03/20/2018 03/25/2018 In active Lunesta 3 mg tablet RxNorm: 065023 1 Tablet(s) PO QHS as needed for sleep 03/04/2018 03/19/2018 In active amitriptyline 10 mg tablet RxNorm: 125581 1 Tablet(s) PO QHS fo r sleep 02/26/2018 03/03/2018 In active escitalopram 20 mg t ablet RxNorm: 679588 1 Tablet(s) PO QHS 02/26/2018 08/12/2018 Inactive pantoprazole 40 mg t ablet,delayed release RxNorm: 187490 1 Tablet(s) PO BID 02/26/2018 04/26/2018 In active Coumadin 2.5 mg tablet RxNorm: 771910 1 Tablet(s) PO MWF 02/18/2018 07/22/2018 Inactive amiodarone 200 mg ta blet RxNorm: 160310 1 Tablet(s) PO QD No Start Date Active colestipol 1 gram ta blet RxNorm: 5292723 1 Tablet(s) PO BID No Start Date Active pantoprazole 40 mg t ablet,delayed release RxNorm: 317745 1 Tablet(s) PO QD No Start Date Active [facility] min with Iron tablet RxNorm: 1 Tablet(s) PO QD No Start Date Active warfarin 5 mg tablet RxNorm: 978503 1/2 Tablet(s) PO on Mon, Wed, Fri, Sun t hen 1 tablet on Tue, Thur, Sat No Start Date Active pantoprazole 40 mg t ablet,delayed release RxNorm: 416791 1 Tablet(s) PO QD No Start Date 02/25/2018 Inactive bumetanide 1 mg tablet RxNorm: 229389 1 Tablet(s) PO BID (6am and 6pm) No Start Date 08/12/2018 Inactive potassium chloride E R 10 mEq tablet,extended release RxNorm: 106442 1 Tablet(s) PO QD No Start Date 02/11/2019 Inactive levothyroxine 25 mcg tablet RxNorm: 961225 1 Tablet(s) PO QD No Start Date 08/12/2018 Inactive spironolactone 25 mg tablet RxNorm: 476173 1 Tablet(s) PO QD No Start Date 08/12/2018 Inactive warfarin 5 mg tablet RxNorm: 550209 1 Tablet(s) PO MWF No Start Date 08/12/2018 Inactive warfarin 5 mg tablet RxNorm: 989392 1 Tablet(s) PO , Sun, , Sat and Sun then 1/2 tablet (2.5mg) on Sun & Sun No Start Date 08/12/2018 Inactive losartan 25 mg tablet RxNorm: 438123 1 Tablet(s) PO QAM No Start Date 08/12/2018 Inactive carvedilol 6.25 mg t ablet RxNorm: 538623 1 Tablet(s) PO BID No Start Date 08/12/2018 Inactive warfarin 2.5 mg tablet RxNorm: 644107 1 Tablet(s) PO , , Sat and Sun No Start Date 08/12/2018 Inactive Coumadin 2.5 mg tablet RxNorm: 760132 Tablet(s) Sun and Sun PO No Start Date 02/17/2018 Inactive potassium chloride E R 20 mEq tablet,extended release(part/cryst) RxNorm: 5944098 2 Tablet(s) PO QD No Start Date 05/05/2018 Inactive Coumadin 5 mg tablet RxNorm: 895037 Tablet(s) PO No Start Date 01/29/2018 Inactive mexiletine 200 mg ca psule RxNorm: 4571252 1 Capsule(s) PO BID No Start Date 03/25/2018 Inactive ferrous sulfate 325 mg (65 mg iron) tablet RxNorm: 416742 1 Tablet(s) PO QD No Start Date 07/22/2018 Inactive cyclobenzaprine 10 m g tablet RxNorm: 825290 1 Tablet(s) PO Q8H as needed No Start Date 12/29/2018 Inactive potassium chloride E R 10 mEq capsule,extended release RxNorm: 072451 2 Capsule(s) PO QD No Start Date 12/11/2018 Inactive Coumadin 5 mg tablet RxNorm: 380104 1 Tablet(s) PO , Th, Sat and Sun No Start Date 07/22/2018 Inactive Restoril 15 mg capsule RxNorm: 939791 1-2 Capsule(s) PO QHS as needed for slee p No Start Date 05/05/2018 Inactive metoprolol succinate ER 25 mg tablet,extended release 24 hr RxNorm: 698836 1 Tablet(s) PO QD No Start Date 08/12/2018 Inactive Entresto 24 mg-26 mg tablet RxNorm: 7555534 1 Tablet(s) PO BID No Start Date 08/12/2018 Inactive warfarin 5 mg tablet RxNorm: 366661 1 Tablet(s) PO Tu, Sun, Th, Sat and Sun and 1/2 tablet on Mon/Fri No Start Date 01/30/2019 Inactive amiodarone 200 mg ta blet RxNorm: 196785 2 Tablet(s) PO BID No Start Date 10/09/2018 Inactive furosemide 20 mg tablet RxNorm: 782194 1 Tablet(s) PO QD No Start Date 08/12/2018 Inactive amiodarone 200 mg ta blet RxNorm: 225618 1 Tablet(s) PO BID No Start Date 08/26/2018 Inactive atorvastatin 40 mg t ablet RxNorm: 334930 1 Tablet(s) PO QD No Start Date 08/12/2018 Inactive Medication Administered No Medication Administered data Immunizations No Immunization data Assessments Condition Codes Effectiv e Dates Acute kidney failure, unspecified IC D-10: N17.9 ICD-9: 584.9 03/18/2019 Essential (primary) hypertension ICD -10: I10 ICD-9: 401.9 02/12/2019 Chronic atrial fibrillation ICD-10: I48.2 ICD-9: 427.31 02/12/2019 Mixed hyperlipidemia ICD-10: E78.2 ICD-9: 272.2 02/12/2019 Other fatigue ICD-10: R53.83 ICD-9: 780.79 02/12/2019 Abdominal distension (gaseous) ICD-1 0: R14.0 ICD-9: 787.3 02/12/2019 Low back pain ICD-10: M54.5 ICD-9: 724.2 12/25/2018 Anemia, unspecified ICD-10: D64.9 ICD-9: 285.9 10/10/2018 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 ICD-10: I50.43 ICD-9: 428.43 08/27/2018 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 ICD-10: I50.42 ICD-9: 428.42 08/13/2018 [facility] (current) use of 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 ICD-10: Z79.01 ICD-9: V58.61 08/13/2018 Localized edema ICD-10: R60.0 ICD-9: 782.3 05/06/2018 Pelvic and perineal pain ICD-10: R10 .2 ICD-9: 625.9 04/17/2018 Generalized abdominal pain ICD-10: R 10.84 ICD-9: 789.07 04/17/2018 Restless legs syndrome ICD-10: G25.8 1 ICD-9: 333.94 03/26/2018 Other insomnia ICD-10: G47.09 ICD-9: 327.09 03/26/2018 Urinary tract infection, site not specified ICD-10: N39.0 ICD-9: 599.0 03/26/2018 Other forms of dyspnea ICD-10: R06.0 9 ICD-9: 786.09 03/26/2018 Altered mental status, unspecified I CD-10: R41.82 ICD-9: 780.97 03/15/2018 Hematuria, unspecified ICD-10: R31.9 ICD-9: 599.70 03/15/2018 Primary insomnia ICD-10: F51.01 ICD-9: 780.52 02/26/2018 Functional dyspepsia ICD-10: K30 ICD-9: 536.8 02/26/2018 Encounter for general adult medical exam ination with abnormal findings ICD-10: Z00.01 ICD-9: V70.0 02/26/2018 Cardiac arrhythmia, unspecified ICD- 10: I49.9 ICD-9: 427.9 01/30/2018 Reason For Visit Reason For Visit Effective Dates Notes back pain 03/18/2019 Nenita chua is back to taking spironolactone 25mg BID and bumex 1mg BID the last week due to weight gain follow up 02/12/2019 sciatica 12/25/2018 back pain 12/12/2018 follow up 10/10/2018 follow up 08/27/2018 Nenita chua would like to have updated lipid panel since has been off medication for at least 3 months follow up 08/13/2018 Nenita chua came home on new thyroid medication but there was no mention of any issues follow up 07/10/2018 Hos pital/ER fwup follow up 05/06/2018 Hos pital fwup abdominal pain 04/17/2018 follow up 03/26/2018 dizziness 03/15/2018 Nenita chua had bladder biopsy on Sunday by Dr Noonan. states she has been holding her coumadin since Sunday insomnia 02/26/2018 blood in urine 02/06/2018 ~generic 01/30/2018 Esta [facility] Results Observation Observation Code Item Item Code Result Date UA W/MICR 04264 UA Urine Appear Normal 02/06/2018 UA W/MICR 25222 UA Prote in 3+ 02/06/2018 UA W/MICR 82071 UA Hemog lobin Trace 02/06/2018 UA W/MICR 84156 UA Gluco se Negative 02/06/2018 UA W/MICR 00964 UA Keton es Negative 02/06/2018 UA W/MICR 36138 UA pH 5.5 02/06/2018 UA W/MICR 38567 U Spec G ravity 1.025 02/06/2018 UA W/MICR 44717 UA Bilir ubin Negative 02/06/2018 UA W/MICR 65858 UA Leuk Esteras Trace 02/06/2018 UA W/MICR 61372 UA Nitri te NEG 02/06/2018 UA W/MICR 57552 UA WBC/h pf 11-25 02/06/2018 UA W/MICR 10770 UA RBC h pf 0-5 02/06/2018 UA W/MICR 88383 UA Hyali ne Cast 16-25 02/06/2018 UA W/MICR 74544 UA Squam Epi Few 02/06/2018 Review of Systems System Result Effective Dates Cardiovascular edema 01/2019 Gastrointestinal gas and bloating 02/12/2019 Constitutional No fatigue 12/25/2018 Constitutional No fever 12/25/2018 Constitutional No chills 12/25/2018 Gastrointestinal No abdominal pain 12/25/2018 Gastrointestinal No constipation 12/25/2018 Gastrointestinal No diarrhea 12/25/2018 Gastrointestinal No nausea 12/25/2018 Gastrointestinal No vomiting 12/25/2018 Genitourinary/Nephrology No dysuria 12/25/2018 Genitourinary/Nephrology flank pain 12/25/2018 Respiratory No cough Musculoskeletal low back pain 12/25/2018 Musculoskeletal back pain 12/12/2018 Gastrointestinal No abdominal pain 12/12/2018 Gastrointestinal No constipation 12/12/2018 Gastrointestinal No diarrhea 12/12/2018 Gastrointestinal No nausea 12/12/2018 Respiratory No cough 12/2018 Respiratory No dyspnea 0 12/12/2018 Genitourinary/Nephrology No dysuria 12/12/2018 Genitourinary/Nephrology No urinary urgenc y 12/12/2018 Genitourinary/Nephrology No urinary frequency 12/12/2018 Constitutional No fatigue 12/12/2018 Constitutional No fever 12/12/2018 Constitutional No chills 12/12/2018 Cardiovascular No chest pain/pressure 12/12/2018 Dermatologic No rash 12/2018 Constitutional fatigue 0 10/10/2018 Cardiovascular arrhythmia 10/10/2018 Respiratory No asthma Respiratory No cough 10/2018 Respiratory No dyspnea 0 10/10/2018 Respiratory No pleuritic pain 10/10/2018 Respiratory No productive sputum 10/10/2018 Respiratory No wheezing 10/10/2018 Gastrointestinal No hemorrhoids 10/10/2018 Gastrointestinal No hepatitis 10/10/2018 Gastrointestinal No abdominal pain 10/10/2018 Gastrointestinal No constipation 10/10/2018 Gastrointestinal No diarrhea 10/10/2018 Gastrointestinal No gastroesophageal reflu x 10/10/2018 Gastrointestinal No melena 10/10/2018 Gastrointestinal No nausea 10/10/2018 Gastrointestinal No vomiting 10/10/2018 Genitourinary/Nephrology No dysuria 10/10/2018 Genitourinary/Nephrology No nocturia 10/10/2018 Genitourinary/Nephrology No urinary incontinence 10/10/2018 Musculoskeletal No muscle weakness 10/10/2018 Musculoskeletal No myalgias 10/10/2018 Musculoskeletal No stiffness 10/10/2018 Musculoskeletal No swelling 10/10/2018 Dermatologic No rash 10/2018 Dermatologic No scar 10/2018 Neurologic No dizziness 10/10/2018 Neurologic No headache 0 10/10/2018 Neurologic No neck pain 10/10/2018 Neurologic No syncope Psychiatric No anxiety 0 10/10/2018 Psychiatric No depression 10/10/2018 Endocrine No goiter 04/0 10/2018 Endocrine No hyperglycemia 10/10/2018 Endocrine No hypoglycemia 10/10/2018 Cardiovascular arrhythmia 08/27/2018 Cardiovascular No chest pain/pressure 08/27/2018 Cardiovascular No edema 08/27/2018 Cardiovascular No exercise intolerance 08/27/2018 Cardiovascular No orthopnea 08/27/2018 Cardiovascular No palpitations 08/27/2018 Respiratory No asthma Respiratory No cough Respiratory No dyspnea 0 08/27/2018 Respiratory No pleuritic pain 08/27/2018 Respiratory No productive sputum 08/27/2018 Respiratory No wheezing 08/27/2018 Gastrointestinal No hemorrhoids 08/27/2018 Gastrointestinal No hepatitis 08/27/2018 Gastrointestinal No abdominal pain 08/27/2018 Gastrointestinal No constipation 08/27/2018 Gastrointestinal No diarrhea 08/27/2018 Gastrointestinal No gastroesophageal reflu x 08/27/2018 Gastrointestinal No melena 08/27/2018 Gastrointestinal No nausea 08/27/2018 Gastrointestinal No vomiting 08/27/2018 Genitourinary/Nephrology No dysuria 08/27/2018 Genitourinary/Nephrology No nocturia 08/27/2018 Genitourinary/Nephrology No urinary incontinence 08/27/2018 Musculoskeletal No muscle weakness 08/27/2018 Musculoskeletal No myalgias 08/27/2018 Musculoskeletal No stiffness 08/27/2018 Musculoskeletal No swelling 08/27/2018 Dermatologic No rash Dermatologic No scar Neurologic No dizziness 08/27/2018 Neurologic No headache 0 08/27/2018 Neurologic No neck pain 08/27/2018 Neurologic No syncope Psychiatric No anxiety 0 08/27/2018 Psychiatric No depression 08/27/2018 Endocrine No goiter 08/09 Endocrine No hyperglycemia 08/27/2018 Endocrine No hypoglycemia 08/27/2018 Cardiovascular arrhythmia 08/13/2018 Cardiovascular No chest pain/pressure 08/13/2018 Cardiovascular No edema 08/13/2018 Cardiovascular No exercise intolerance 08/13/2018 Cardiovascular No orthopnea 08/13/2018 Cardiovascular No palpitations 08/13/2018 Cardiovascular hypertension 08/13/2018 Respiratory No asthma Respiratory No cough 11/2018 Respiratory No dyspnea 0 08/13/2018 Respiratory No pleuritic pain 08/13/2018 Respiratory No productive sputum 08/13/2018 Respiratory No wheezing 08/13/2018 Gastrointestinal No hemorrhoids 08/13/2018 Gastrointestinal No hepatitis 08/13/2018 Gastrointestinal No abdominal pain 08/13/2018 Gastrointestinal No constipation 08/13/2018 Gastrointestinal No diarrhea 08/13/2018 Gastrointestinal No gastroesophageal reflu x 08/13/2018 Gastrointestinal No melena 08/13/2018 Gastrointestinal No nausea 08/13/2018 Gastrointestinal No vomiting 08/13/2018 Genitourinary/Nephrology No dysuria 08/13/2018 Genitourinary/Nephrology No nocturia 08/13/2018 Genitourinary/Nephrology No urinary incontinence 08/13/2018 Musculoskeletal No muscle weakness 08/13/2018 Musculoskeletal No myalgias 08/13/2018 Musculoskeletal No stiffness 08/13/2018 Musculoskeletal No swelling 08/13/2018 Constitutional fatigue 0 08/13/2018 Endocrine No goiter 02/0 11/2018 Endocrine No hyperglycemia 08/13/2018 Endocrine No hypoglycemia 08/13/2018 Endocrine hypothyroid Dermatologic No rash 11/2018 Dermatologic No scar 11/2018 Neurologic No dizziness 08/13/2018 Neurologic No headache 0 08/13/2018 Neurologic No neck pain 08/13/2018 Neurologic No syncope Psychiatric No anxiety 0 08/13/2018 Psychiatric No depression 08/13/2018 Constitutional fatigue 0 07/10/2018 Cardiovascular No edema 07/10/2018 Cardiovascular hypertension 07/10/2018 Cardiovascular arrhythmia 07/10/2018 Respiratory dyspnea 01/0 08/2018 Respiratory dyspnea on exertion 07/10/2018 Musculoskeletal muscle weakness 07/10/2018 Hematologic/Lymphatic anemia 07/10/2018 Constitutional No night sweats 05/06/2018 Constitutional No fatigue 05/06/2018 Constitutional No fever 05/06/2018 Constitutional No insomnia 05/06/2018 Constitutional No weight loss 05/06/2018 Cardiovascular arrhythmia 05/06/2018 Cardiovascular No chest pain/pressure 05/06/2018 Cardiovascular No edema 05/06/2018 Cardiovascular No exercise intolerance 05/06/2018 Cardiovascular No orthopnea 05/06/2018 Cardiovascular No palpitations 05/06/2018 Endocrine No goiter 04/09 Endocrine No hyperglycemia 05/06/2018 Endocrine No hypoglycemia 05/06/2018 Constitutional fatigue 1 Constitutional No fever 04/17/2018 Constitutional No chills 04/17/2018 Respiratory No cough 04/2018 Respiratory No chest congestion 04/17/2018 Respiratory No chest tightness 04/17/2018 Gastrointestinal abdominal pain 04/17/2018 Gastrointestinal No constipation 04/17/2018 Gastrointestinal No diarrhea 04/17/2018 Gastrointestinal nausea 04/17/2018 Gastrointestinal increased abdominal girth 04/17/2018 Gastrointestinal gas and bloating 04/17/2018 Musculoskeletal No myalgias 04/17/2018 Dermatologic No rash 04/2018 Cardiovascular No chest pain/pressure 04/17/2018 Genitourinary/Nephrology No anuria/oliguri a 04/17/2018 Genitourinary/Nephrology No hematuria 04/17/2018 Genitourinary/Nephrology No flank pain 04/17/2018 Genitourinary/Nephrology No urinary urgenc y 04/17/2018 Genitourinary/Nephrology No urinary frequency 04/17/2018 Genitourinary/Nephrology No urinary incontinence 04/17/2018 Genitourinary/Nephrology pelvic pain 04/17/2018 Gastrointestinal No melena 04/17/2018 Gastrointestinal anorexia 04/17/2018 Cardiovascular edema 04/2018 Constitutional fatigue 0 03/26/2018 Cardiovascular arrhythmia 03/26/2018 Respiratory dyspnea 03/09 Respiratory dyspnea on exertion 03/26/2018 Gastrointestinal No hemorrhoids 03/26/2018 Gastrointestinal No hepatitis 03/26/2018 Gastrointestinal No abdominal pain 03/26/2018 Gastrointestinal No constipation 03/26/2018 Gastrointestinal No diarrhea 03/26/2018 Gastrointestinal No gastroesophageal reflu x 03/26/2018 Gastrointestinal No melena 03/26/2018 Gastrointestinal No nausea 03/26/2018 Gastrointestinal No vomiting 03/26/2018 Genitourinary/Nephrology dysuria 03/26/2018 Genitourinary/Nephrology No nocturia 03/26/2018 Genitourinary/Nephrology No urinary incontinence 03/26/2018 Musculoskeletal muscle weakness 03/26/2018 Constitutional insomnia 03/26/2018 Neurologic spasms/spasticity 03/26/2018 Psychiatric stress 03/26 Constitutional No fatigue 03/15/2018 Constitutional No fever 03/15/2018 Constitutional No chills 03/15/2018 Gastrointestinal No abdominal pain 03/15/2018 Gastrointestinal No constipation 03/15/2018 Gastrointestinal No diarrhea 03/15/2018 Gastrointestinal No nausea 03/15/2018 Respiratory No cough 01/2018 Respiratory No chest congestion 03/15/2018 Respiratory No chest tightness 03/15/2018 Respiratory No dyspnea on exertion 03/15/2018 Cardiovascular No chest pain/pressure 03/15/2018 Cardiovascular No fatigue 03/15/2018 Constitutional insomnia 03/15/2018 Neurologic No alteration of consciousness 03/15/2018 Neurologic mental status change 03/15/2018 Constitutional No night sweats 02/26/2018 Constitutional fatigue 0 02/26/2018 Constitutional No fever 02/26/2018 Constitutional insomnia 02/26/2018 Constitutional No weight loss 02/26/2018 Eyes No eye pain 018 Eyes No photophobia 02/07 Eyes No vision change Eyes No visual disturbance 02/26/2018 Ears/Nose/Throat/Neck No hearing loss 02/26/2018 Ears/Nose/Throat/Neck No nasal discharge 02/26/2018 Ears/Nose/Throat/Neck No sinus congestion 02/26/2018 Ears/Nose/Throat/Neck No sore throat 02/26/2018 Cardiovascular arrhythmia 02/26/2018 Cardiovascular No chest pain/pressure 02/26/2018 Cardiovascular No edema 02/26/2018 Cardiovascular No exercise intolerance 02/26/2018 Cardiovascular No orthopnea 02/26/2018 Cardiovascular No palpitations 02/26/2018 Respiratory No asthma Respiratory No cough Respiratory dyspnea 02/07 Respiratory No pleuritic pain 02/26/2018 Respiratory No productive sputum 02/26/2018 Respiratory No wheezing 02/26/2018 Gastrointestinal No hemorrhoids 02/26/2018 Gastrointestinal No hepatitis 02/26/2018 Gastrointestinal abdominal pain 02/26/2018 Gastrointestinal No constipation 02/26/2018 Gastrointestinal No diarrhea 02/26/2018 Gastrointestinal No gastroesophageal reflu x 02/26/2018 Gastrointestinal No melena 02/26/2018 Gastrointestinal No nausea 02/26/2018 Gastrointestinal No vomiting 02/26/2018 Genitourinary/Nephrology No dysuria 02/26/2018 Genitourinary/Nephrology No nocturia 02/26/2018 Genitourinary/Nephrology No urinary incontinence 02/26/2018 Musculoskeletal No muscle weakness 02/26/2018 Musculoskeletal No myalgias 02/26/2018 Musculoskeletal No stiffness 02/26/2018 Musculoskeletal No swelling 02/26/2018 Dermatologic No rash Dermatologic No scar Neurologic No dizziness 02/26/2018 Neurologic No headache 0 02/26/2018 Neurologic No neck pain 02/26/2018 Neurologic No syncope Psychiatric No anxiety 0 02/26/2018 Psychiatric No depression 02/26/2018 Endocrine No goiter 02/07 Endocrine No hyperglycemia 02/26/2018 Endocrine No hypoglycemia 02/26/2018 Hematologic/Lymphatic No abnormal ec chymoses 02/26/2018 Hematologic/Lymphatic No petechiae 02/26/2018 Hematologic/Lymphatic No abnormal bl eeding and bruising 02/26/2018 Hematologic/Lymphatic No anemia 02/26/2018 Hematologic/Lymphatic No lymph node enlargement/mass 02/26/2018 Allergy/Immunology No food allergy 02/26/2018 Respiratory dyspnea on exertion 02/26/2018 Cardiovascular dyspnea 0 02/26/2018 Gastrointestinal dyspepsia 02/26/2018 Constitutional fatigue 0 01/30/2018 Cardiovascular arrhythmia 01/30/2018 Cardiovascular fatigue 0 01/30/2018 Cardiovascular No palpitations 01/30/2018 Respiratory No cough Respiratory dyspnea on exertion 01/30/2018 Gastrointestinal abdominal pain 01/30/2018 Gastrointestinal gas and bloating 01/30/2018 Gastrointestinal No constipation 01/30/2018 Gastrointestinal No diarrhea 01/30/2018 Gastrointestinal No nausea 01/30/2018 Genitourinary/Nephrology No anuria/oliguri a 01/30/2018 Genitourinary/Nephrology No flank pain 01/30/2018 Genitourinary/Nephrology No dysuria 01/30/2018 Genitourinary/Nephrology No urinary retention/hesitancy 01/30/2018 Genitourinary/Nephrology urinary tra ct obstruction 01/30/2018 Musculoskeletal muscle weakness 01/30/2018 Dermatologic No rash Neurologic No headache 0 01/30/2018 Neurologic No alteration of consciousness 01/30/2018 Psychiatric No anxiety 0 01/30/2018 Psychiatric No stress Psychiatric No depression 01/30/2018 Constitutional insomnia 01/30/2018 Physical Exam Exam Name System Name It em Name Status Result Effective Dates Notes Full Exam - General Constitutional general appearance Overall: well nourished 03/18/2019 None Full Exam - General Constitutional general appearance Overall: well developed 03/18/2019 None Full Exam - General Constitutional general appearance Overall: in no acute distress 03/18/2019 None Full Exam - General Neurologic mental status Overall: alert 9 None Full Exam - General Neurologic mental status Overall: oriented 03/18/2019 None Full Exam - General Psychiatric mood and affect Overall: normal mood and affect 03/18/2019 None Full Exam - General Respiratory auscultation Overall: breath sounds clear bilater ally 03/18/2019 None Full Exam - General Cardiovascular auscultation of heart Overall: regular rate 03/18/2019 None Full Exam - General Cardiovascular auscultation of heart Overall: normal heart sounds 03/18/2019 None Full Exam - General Cardiovascular auscultation of heart Murmur: previously known murmur unchanged 03/18/2019 None Full Exam - General Cardiovascular auscultation of heart S4 (atrial gallop): present 03/18/2019 None Full Exam - General Cardiovascular extremities Overall: no clubbing 03/18/2019 None Full Exam - General Cardiovascular extremities Overall: No edema 03/18/2019 None Full Exam - General Cardiovascular extremities Overall: No cyanosis 03/18/2019 None Full Exam - General Abdomen abdominal exam Overall: no masses 03/18/2019 None Full Exam - General Abdomen abdominal exam Overall: normal bowel sounds 03/18/2019 None Full Exam - General Abdomen abdominal exam Overall: soft 03/18/2019 None Full Exam - General Constitutional general appearance Overall: well nourished 02/12/2019 None Full Exam - General Constitutional general appearance Overall: well developed 02/12/2019 None Full Exam - General Constitutional general appearance Overall: in no acute distress 02/12/2019 None Full Exam - General Neurologic mental status Overall: alert 9 None Full Exam - General Neurologic mental status Overall: oriented 02/12/2019 None Full Exam - General Psychiatric mood and affect Overall: normal mood and affect 02/12/2019 None Full Exam - General Respiratory auscultation Overall: breath sounds clear bilater ally 02/12/2019 None Full Exam - General Cardiovascular auscultation of heart Rhythm: irregularly irregular rhythm 02/12/2019 None Full Exam - General Cardiovascular auscultation of heart S4 (atrial gallop): present 02/12/2019 None Full Exam - General Cardiovascular auscultation of heart Murmur: previously known murmur unchanged 02/12/2019 None Full Exam - General Cardiovascular extremities Overall: no clubbing 02/12/2019 None Full Exam - General Cardiovascular extremities Overall: No cyanosis 02/12/2019 None Full Exam - General Cardiovascular extremities Overall: No edema 02/12/2019 None Full Exam - General Abdomen abdominal exam Overall: no masses 02/12/2019 None Full Exam - General Abdomen abdominal exam Overall: no tenderness 02/12/2019 None Full Exam - General Abdomen abdominal exam Overall: normal bowel sounds 02/12/2019 None Full Exam - General Abdomen abdominal exam Overall: soft 02/12/2019 None Full Exam - General Constitutional general appearance Overall: well nourished 12/25/2018 None Full Exam - General Constitutional general appearance Evidence of Distress: in acute distress 12/25/2018 None Full Exam - General Respiratory respiratory effort/rhythm Overall: no retractions 12/25/2018 None Full Exam - General Respiratory respiratory effort/rhythm Overall: normal rate 12/25/2018 None Full Exam - General Respiratory auscultation Overall: breath sounds clear bilater ally 12/25/2018 None Full Exam - General Cardiovascular auscultation of heart Rhythm: regularly irregular rhythm 12/25/2018 None Full Exam - General Musculoskeletal gait and station Gait: antalgic 12/25/2018 None Full Exam - General Abdomen abdominal exam Overall: no tenderness 12/25/2018 None Full Exam - General Abdomen abdominal exam Overall: soft 12/25/2018 None Full Exam - General Abdomen abdominal exam Overall: no masses 12/25/2018 None Full Exam - General Abdomen abdominal exam Overall: normal bowel sounds 12/25/2018 None Full Exam - General Neurologic mental status Overall: alert 9 None Full Exam - General Neurologic mental status Overall: oriented 12/25/2018 None Full Exam - General Constitutional general appearance Overall: well nourished 12/12/2018 None Full Exam - General Constitutional general appearance Overall: in no acute distress 12/12/2018 None Full Exam - General Respiratory respiratory effort/rhythm Overall: no retractions 12/12/2018 None Full Exam - General Respiratory respiratory effort/rhythm Overall: normal rate 12/12/2018 None Full Exam - General Respiratory auscultation Overall: breath sounds clear bilater ally 12/12/2018 None Full Exam - General Cardiovascular auscultation of heart Overall: regular rate 12/12/2018 None Full Exam - General Abdomen abdominal exam Overall: no tenderness 12/12/2018 None Full Exam - General Abdomen abdominal exam Overall: soft 12/12/2018 None Full Exam - General Abdomen abdominal exam Overall: no masses 12/12/2018 None Full Exam - General Abdomen abdominal exam Overall: normal bowel sounds 12/12/2018 None Full Exam - General Musculoskeletal gait and station Overall: normal gait 12/12/2018 None Full Exam - General Musculoskeletal gait and station Overall: normal station 12/12/2018 None Full Exam - General Musculoskeletal spine, ribs and pelvis Spine: normal straight leg raise 12/12/2018 None Full Exam - General Neurologic mental status Overall: alert 9 None Full Exam - General Neurologic mental status Overall: oriented 12/12/2018 None Full Exam - General Constitutional general appearance Overall: well nourished 10/10/2018 None Full Exam - General Constitutional general appearance Overall: well developed 10/10/2018 None Full Exam - General Constitutional general appearance Overall: in no acute distress 10/10/2018 None Full Exam - General Neurologic mental status Overall: alert 9 None Full Exam - General Neurologic mental status Overall: oriented 10/10/2018 None Full Exam - General Psychiatric mood and affect Overall: normal mood and affect 10/10/2018 None Full Exam - General Respiratory auscultation Overall: breath sounds clear bilater ally 10/10/2018 None Full Exam - General Cardiovascular auscultation of heart Overall: regular rate 10/10/2018 None Full Exam - General Cardiovascular auscultation of heart Rhythm: irregularly irregular rhythm 10/10/2018 None Full Exam - General Cardiovascular auscultation of heart Murmur: previously known murmur unchanged 10/10/2018 None Full Exam - General Cardiovascular extremities Overall: no clubbing 10/10/2018 None Full Exam - General Cardiovascular extremities Overall: No edema 10/10/2018 None Full Exam - General Cardiovascular extremities Overall: No cyanosis 10/10/2018 None Full Exam - General Abdomen abdominal exam Overall: no masses 10/10/2018 None Full Exam - General Abdomen abdominal exam Overall: no tenderness 10/10/2018 None Full Exam - General Abdomen abdominal exam Overall: normal bowel sounds 10/10/2018 None Full Exam - General Abdomen abdominal exam Overall: soft 10/10/2018 None Full Exam - General Constitutional general appearance Overall: well nourished 08/27/2018 None Full Exam - General Constitutional general appearance Overall: well developed 08/27/2018 None Full Exam - General Constitutional general appearance Overall: in no acute distress 08/27/2018 None Full Exam - General Neurologic mental status Overall: alert 9 None Full Exam - General Neurologic mental status Overall: oriented 08/27/2018 None Full Exam - General Psychiatric mood and affect Overall: normal mood and affect 08/27/2018 None Full Exam - General Respiratory auscultation Overall: breath sounds clear bilater ally 08/27/2018 None Full Exam - General Cardiovascular auscultation of heart Overall: regular rate 08/27/2018 None Full Exam - General Cardiovascular auscultation of heart Overall: normal heart sounds 08/27/2018 None Full Exam - General Cardiovascular auscultation of heart Murmur: previously known murmur unchanged 08/27/2018 None Full Exam - General Cardiovascular auscultation of heart S4 (atrial gallop): present 08/27/2018 None Full Exam - General Cardiovascular auscultation of heart Rhythm: irregularly irregular rhythm 08/27/2018 None Full Exam - General Cardiovascular extremities Overall: no clubbing 08/27/2018 None Full Exam - General Cardiovascular extremities Overall: No cyanosis 08/27/2018 None Full Exam - General Cardiovascular extremities Overall: No edema 08/27/2018 None Full Exam - General Constitutional general appearance Overall: well nourished 08/13/2018 None Full Exam - General Constitutional general appearance Overall: well developed 08/13/2018 None Full Exam - General Constitutional general appearance Overall: in no acute distress 08/13/2018 None Full Exam - General Neurologic mental status Overall: alert 9 None Full Exam - General Neurologic mental status Overall: oriented 08/13/2018 None Full Exam - General Psychiatric mood and affect Overall: normal mood and affect 08/13/2018 None Full Exam - General Respiratory auscultation Overall: breath sounds clear bilater ally 08/13/2018 None Full Exam - General Cardiovascular auscultation of heart Rate: regular rate 08/13/2018 None Full Exam - General Cardiovascular auscultation of heart Rhythm: irregularly irregular rhythm 08/13/2018 None Full Exam - General Cardiovascular auscultation of heart S4 (atrial gallop): present 08/13/2018 None Full Exam - General Cardiovascular auscultation of heart Murmur: previously known murmur unchanged 08/13/2018 None Full Exam - General Cardiovascular extremities Overall: no clubbing 08/13/2018 None Full Exam - General Cardiovascular extremities Overall: No edema 08/13/2018 None Full Exam - General Cardiovascular extremities Overall: No cyanosis 08/13/2018 None Full Exam - General Constitutional general appearance Overall: well nourished 07/10/2018 None Full Exam - General Constitutional general appearance Overall: well developed 07/10/2018 None Full Exam - General Constitutional general appearance Evidence of Distress: in acute distress 07/10/2018 None Full Exam - General Respiratory auscultation Overall: breath sounds clear bilater ally 07/10/2018 None Full Exam - General Cardiovascular auscultation of heart Overall: regular rate 07/10/2018 None Full Exam - General Cardiovascular auscultation of heart Overall: normal heart sounds 07/10/2018 None Full Exam - General Cardiovascular auscultation of heart S4 (atrial gallop): present 07/10/2018 None Full Exam - General Cardiovascular auscultation of heart Murmur: previously known murmur unchanged 07/10/2018 None Full Exam - General Cardiovascular extremities Overall: no clubbing 07/10/2018 None Full Exam - General Cardiovascular extremities Overall: No cyanosis 07/10/2018 None Full Exam - General Cardiovascular extremities Overall: No edema 07/10/2018 None Full Exam - General Neurologic mental status Overall: alert 9 None Full Exam - General Neurologic mental status Overall: oriented 07/10/2018 None Full Exam - General Psychiatric mood and affect Affect: flat 07/10/2018 None Full Exam - General Psychiatric mood and affect Affect: blunted 07/10/2018 None Full Exam - General Psychiatric mood and affect Affect: constricted 07/10/2018 None Full Exam - General Constitutional general appearance Overall: well nourished 05/06/2018 None Full Exam - General Constitutional general appearance Overall: well developed 05/06/2018 None Full Exam - General Constitutional general appearance Overall: in no acute distress 05/06/2018 None Full Exam - General Constitutional general appearance Assistive Device: braces 05/06/2018 left arm sling Full Exam - General Respiratory auscultation Overall: breath sounds clear bilater ally 05/06/2018 None Full Exam - General Cardiovascular auscultation of heart Overall: regular rate 05/06/2018 None Full Exam - General Cardiovascular auscultation of heart Rhythm: irregularly irregular rhythm 05/06/2018 None Full Exam - General Cardiovascular auscultation of heart S4 (atrial gallop): present 05/06/2018 None Full Exam - General Cardiovascular auscultation of heart Murmur: previously known murmur unchanged 05/06/2018 None Full Exam - General Cardiovascular extremities Overall: no clubbing 05/06/2018 None Full Exam - General Cardiovascular extremities Overall: No cyanosis 05/06/2018 None Full Exam - General Cardiovascular extremities Overall: No edema 05/06/2018 None Full Exam - General Neurologic mental status Overall: alert 8 None Full Exam - General Neurologic mental status Overall: oriented 05/06/2018 None Full Exam - General Psychiatric mood and affect Overall: normal mood and affect 05/06/2018 None Full Exam - General Constitutional general appearance Overall: well nourished 04/17/2018 None Full Exam - General Constitutional general appearance Overall: in no acute distress 04/17/2018 None Full Exam - General Respiratory respiratory effort/rhythm Overall: no retractions 04/17/2018 None Full Exam - General Respiratory respiratory effort/rhythm Overall: normal rate 04/17/2018 None Full Exam - General Respiratory auscultation Overall: breath sounds clear bilater ally 04/17/2018 None Full Exam - General Cardiovascular auscultation of heart Rhythm: regularly irregular rhythm 04/17/2018 None Full Exam - General Abdomen abdominal exam Overall: no masses 04/17/2018 None Full Exam - General Abdomen abdominal exam Bowel sounds: hypoactive 04/17/2018 None Full Exam - General Abdomen abdominal exam Contour: rounded 018 distended Full Exam - General Cardiovascular extremities Edema present: unilateral 04/17/2018 None Full Exam - General Cardiovascular extremities Edema present: severity 2+ 04/17/2018 to left lower quadrant Full Exam - General Constitutional general appearance Overall: well nourished 03/26/2018 None Full Exam - General Constitutional general appearance Overall: well developed 03/26/2018 None Full Exam - General Constitutional general appearance Overall: in no acute distress 03/26/2018 None Full Exam - General Neurologic mental status Overall: alert 8 None Full Exam - General Neurologic mental status Overall: oriented 03/26/2018 None Full Exam - General Psychiatric mood and affect Overall: normal mood and affect 03/26/2018 None Full Exam - General Respiratory auscultation Overall: breath sounds clear bilater ally 03/26/2018 None Full Exam - General Cardiovascular auscultation of heart Rate: regular rate 03/26/2018 None Full Exam - General Cardiovascular auscultation of heart Rhythm: irregularly irregular rhythm 03/26/2018 None Full Exam - General Cardiovascular auscultation of heart S4 (atrial gallop): present 03/26/2018 None Full Exam - General Cardiovascular auscultation of heart Murmur: previously known murmur unchanged 03/26/2018 None Full Exam - General Cardiovascular extremities Overall: no clubbing 03/26/2018 None Full Exam - General Cardiovascular extremities Overall: No edema 03/26/2018 None Full Exam - General Cardiovascular extremities Overall: No cyanosis 03/26/2018 None Full Exam - General Abdomen abdominal exam Overall: no masses 03/26/2018 None Full Exam - General Abdomen abdominal exam Overall: no tenderness 03/26/2018 None Full Exam - General Abdomen abdominal exam Overall: normal bowel sounds 03/26/2018 None Full Exam - General Abdomen abdominal exam Overall: soft 03/26/2018 None Full Exam - General Constitutional general appearance Overall: well nourished 03/15/2018 None Full Exam - General Constitutional general appearance Overall: in no acute distress 03/15/2018 None Full Exam - General Cardiovascular auscultation of heart Overall: regular rate 03/15/2018 None Full Exam - General Cardiovascular auscultation of heart Overall: no murmurs 03/15/2018 None Full Exam - General Respiratory respiratory effort/rhythm Overall: no retractions 03/15/2018 None Full Exam - General Respiratory respiratory effort/rhythm Overall: normal rate 03/15/2018 None Full Exam - General Respiratory auscultation Overall: breath sounds clear bilater ally 03/15/2018 None Full Exam - General Psychiatric orientation/consciousness Overall: oriented to person, place and time 03/15/2018 None Full Exam - General Psychiatric behavior/psychomotor activity Behavior: hyperactivity 03/15/2018 None Full Exam - General Psychiatric mood and affect Overall: normal mood and affect 03/15/2018 None Full Exam - General Psychiatric appearance Overall: well-groomed, good eye cont act 03/15/2018 None Full Exam - General Constitutional general appearance Overall: well nourished 02/26/2018 None Full Exam - General Constitutional general appearance Overall: well developed 02/26/2018 None Full Exam - General Constitutional general appearance Overall: in no acute distress 02/26/2018 None Full Exam - General Neurologic mental status Overall: alert 8 None Full Exam - General Neurologic mental status Overall: oriented 02/26/2018 None Full Exam - General Psychiatric mood and affect Overall: normal mood and affect 02/26/2018 None Full Exam - General Neck inspection of neck Overall: normal size 02/26/2018 None Full Exam - General Neck inspection of neck Overall: no masses 02/26/2018 None Full Exam - General Respiratory auscultation Overall: breath sounds clear bilater ally 02/26/2018 None Full Exam - General Abdomen abdominal exam Overall: no masses 02/26/2018 None Full Exam - General Abdomen abdominal exam Overall: normal bowel sounds 02/26/2018 None Full Exam - General Abdomen abdominal exam Overall: soft 02/26/2018 None Full Exam - General Musculoskeletal gait and station Gait: symmetric 02/26/2018 None Full Exam - General Ears/Nose/Throat otoscopic exam Overall: external auditory canals clear 02/26/2018 None Full Exam - General Ears/Nose/Throat otoscopic exam Overall: tympanic membranes clear 02/26/2018 None Full Exam - General Ears/Nose/Throat internal nose Overall: bilateral nasal cavities clear 02/26/2018 None Full Exam - General Ears/Nose/Throat oral cavity/pharynx/larynx Overall: oral mucosa clear 02/26/2018 None Full Exam - General Cardiovascular auscultation of heart Rate: regular rate 02/26/2018 None Full Exam - General Cardiovascular auscultation of heart Rhythm: irregularly irregular rhythm 02/26/2018 None Full Exam - General Cardiovascular auscultation of heart S3 (ventricular gallop): present 02/26/2018 None Full Exam - General Cardiovascular auscultation of heart Murmur: previously known murmur unchanged 02/26/2018 None Full Exam - General Cardiovascular extremities Overall: no clubbing 02/26/2018 None Full Exam - General Cardiovascular extremities Overall: No edema 02/26/2018 None Full Exam - General Cardiovascular extremities Overall: No cyanosis 02/26/2018 None Full Exam - General Abdomen abdominal exam Overall: no tenderness 02/26/2018 None Full Exam - General Abdomen abdominal exam Skin: presence of a scar 02/26/2018 but no obvious hernias Full Exam - General Constitutional general appearance Overall: well nourished 01/30/2018 None Full Exam - General Constitutional general appearance Overall: in no acute distress 01/30/2018 None Full Exam - General Respiratory respiratory effort/rhythm Overall: no retractions 01/30/2018 None Full Exam - General Respiratory respiratory effort/rhythm Overall: normal rate 01/30/2018 None Full Exam - General Respiratory auscultation Overall: breath sounds clear bilater ally 01/30/2018 None Full Exam - General Cardiovascular auscultation of heart Rhythm: irregular rhythm 01/30/2018 None Full Exam - General Cardiovascular extremities Overall: no clubbing 01/30/2018 None Full Exam - General Cardiovascular extremities Overall: No edema 01/30/2018 None Full Exam - General Cardiovascular extremities Overall: No cyanosis 01/30/2018 None Full Exam - General Abdomen abdominal exam Overall: soft 01/30/2018 None Full Exam - General Abdomen abdominal exam Overall: no masses 01/30/2018 None Full Exam - General Abdomen abdominal exam Overall: normal bowel sounds 01/30/2018 None Full Exam - General Abdomen abdominal exam Epigastric: tender to palpation 01/30/2018 None Full Exam - General Psychiatric orientation/consciousness Overall: oriented to person, place and time 01/30/2018 None Full Exam - General Psychiatric behavior/psychomotor activity Overall: no tics, normal psychomotor activity 01/30/2018 None Full Exam - General Psychiatric mood and affect Overall: normal mood and affect 01/30/2018 None Full Exam - General Psychiatric appearance Overall: well-groomed, good eye cont act 01/30/2018 None Full Exam - General Integument inspection of skin Location: abdomen 01/30/2018 had right lateral well healing incision from open cholecystectomy. steristrips remain in place but incision is clean and dry. also 2 laparoscopic incisions noted to lower abdomen which are clean and dry as well. Procedures Procedure Codes Date URINALYSIS NONAUTO W /O SCOPE CPT-4: 83213 03/18/2019 URINE CULTURE/ COLON Y COUNT CPT-4: 30016 03/18/2019 URINALYSIS NONAUTO W /O SCOPE CPT-4: 71136 12/12/2018 URINE CULTURE/ COLON Y COUNT CPT-4: 50143 03/26/2018 URINALYSIS NONAUTO W /O SCOPE CPT-4: 31333 03/15/2018 INITIAL PREVENTIVE EXAM CPT-4: G0402 02/26/2018 URINALYSIS NONAUTO W /O SCOPE CPT-4: 10149 02/06/2018 URINE CULTURE/ COLON Y COUNT CPT-4: 69362 02/06/2018 UA W/MICR CPT-4: 45195 02/06/2018 CUR TOBACCO NON-USER CPT-4: G8457 01/30/2018 REPAIR BLADDER & VAGINA CPT-4: 11584 01/06/2017 REPAIR OF RECTOCELE CPT- 4: 78116 01/06/2017 BREAST SURGERY PROCE DURE CPT-4: 75784 Unknown LAPARO CHOLECYSTECTO MY/EXPLR CPT-4: 62699 Unknown HYSTERECTOMY/REVISE VAGINA CPT-4: 05585 Unknown Vital Signs Date Vital 03/18/2019 Blood Pressure 1: 122/60 Code: 8480-6 Heart Rate 1: 72 bpm Respiratory Rate: 20 bpm SpO2: 96% Temperature: 36.6 (C ) / 97.9 (F) Weight: 140 lbs 02/12/2019 Blood Pressure 1: 92/56 Code: 8480-6 Heart Rate 1: 72 bpm Respiratory Rate: 20 bpm SpO2: 95% Temperature: 36.8 (C ) / 98.2 (F) Weight: 134 lbs 12/25/2018 Blood Pressure 1: 104/58 Code: 8480-6 Heart Rate 1: 71 bpm Respiratory Rate: 18 bpm SpO2: 97% Temperature: 36.3 (C ) / 97.4 (F) Weight: 12/12/2018 Blood Pressure 1: 120/70 Code: 8480-6 Heart Rate 1: 85 bpm Respiratory Rate: 18 bpm SpO2: 96% Temperature: 36.2 (C ) / 97.2 (F) Weight: 132 lbs 10/10/2018 Blood Pressure 1: 104/66 Code: 8480-6 Heart Rate 1: 91 bpm Respiratory Rate: 18 bpm SpO2: 96% Temperature: 36.2 (C ) / 97.1 (F) Weight: 130 lbs 08/27/2018 Blood Pressure 1: 104/62 Code: 8480-6 Heart Rate 1: 72 bpm Respiratory Rate: 20 bpm SpO2: 96% Temperature: 36.6 (C ) / 97.8 (F) Weight: 130 lbs 08/13/2018 Blood Pressure 1: 106/58 Code: 8480-6 BMI: 26.3 Code: 01038-5 Heart Rate 1: 72 bpm Height: 4'10" Respiratory Rate: 20 bpm SpO2: 97% Temperature: 36.6 (C ) / 97.8 (F) Weight: 128 lbs 07/10/2018 Blood Pressure 1: 122/70 Code: 8480-6 BMI: 28.6 Code: 52167-8 Heart Rate 1: 80 bpm Height: 4'10" Respiratory Rate: 20 bpm SpO2: 96% Temperature: 36.9 (C ) / 98.4 (F) Weight: 139 lbs 05/06/2018 Blood Pressure 1: 112/54 Code: 8480-6 BMI: 27.5 Code: 65715-6 Heart Rate 1: 80 bpm Height: 4'10" Respiratory Rate: 20 bpm SpO2: 95% Temperature: 36.6 (C ) / 97.8 (F) Weight: 134 lbs 04/17/2018 Blood Pressure 1: 150/70 Code: 8480-6 Heart Rate 1: 95 bpm Respiratory Rate: 22 bpm SpO2: 95% Temperature: 36.4 (C ) / 97.5 (F) Weight: 150 lbs 03/26/2018 Blood Pressure 1: 144/90 Code: 8480-6 Heart Rate 1: 86 bpm Respiratory Rate: 22 bpm SpO2: 97% Temperature: 36.8 (C ) / 98.2 (F) Weight: 145 lbs 03/15/2018 Blood Pressure 1: 146/80 Code: 8480-6 BMI: 30.0 Code: 97393-5 Heart Rate 1: 76 bpm Height: 4'10" Respiratory Rate: 20 bpm SpO2: 97% Temperature: 36.7 (C ) / 98.1 (F) Weight: 146 lbs 02/26/2018 Blood Pressure 1: 126/80 Code: 8480-6 BMI: 29.6 Code: 85586-6 Heart Rate 1: 80 bpm Height: 4'10" Respiratory Rate: 18 bpm SpO2: 96% Temperature: 37.0 (C ) / 98.6 (F) Weight: 144 lbs 01/30/2018 Blood Pressure 1: 120/78 Code: 8480-6 BMI: 29.6 Code: 65900-0 Heart Rate 1: 84 bpm Height: 4'10" Respiratory Rate: 20 bpm SpO2: 97% Temperature: 36.0 (C ) / 96.8 (F) Weight: 144 lbs Functional Status No Functional Status data History of Present Illness Symptom Name Status Resu lt Effective Date Notes Location in the perium bilical area 03/18/2019 None Quality worsening 03/18/2019 None Location in the left l ower back area 03/18/2019 None Location in the right lower back area 03/18/2019 None Quality discomfort 03/18/2019 None Onset and Resolution o ngoing. 03/18/2019 Patient has been treated with medrol pack, prednisone, meloxicam for 10 days and flexeril Quality acute 03/18/2019 None Quality sharp 03/18/2019 None Severity severe 03/18/2019 None Quality atrial fibrill ation 02/12/2019 None Quality chronic 02/12/2019 None Quality stable 02/12/2019 None Location on both legs 02/12/2019 None Quality chronic 02/12/2019 None Quality stable 02/12/2019 None Quality chronic 02/12/2019 None Quality stable 02/12/2019 None Location in the right lower back area 12/12/2018 None Quality stabbing 12/12/2018 None Onset and Resolution s udden in onset 12/12/2018 None Quality improving 10/10/2018 able to do ADLs Quality irregular beats 10/10/2018 None Quality chronic 10/10/2018 None Quality atrial fibrill ation 08/27/2018 None Quality chronic 08/27/2018 None Location on both legs 08/27/2018 None Quality chronic 08/27/2018 None Quality stable 08/27/2018 None Quality chronic 08/27/2018 None Quality stable 08/27/2018 None Quality chronic 08/13/2018 None Quality stable 08/13/2018 None Quality chronic 08/13/2018 None Quality chronic 08/13/2018 None Quality stable. 08/13/2018 Current Hgb 12.4 Quality chronic 08/13/2018 None Quality stable 08/13/2018 None Quality atrial fibrill ation 07/10/2018 None Quality worsening. 07/10/2018 Patient was evaluated in ER on Sunday they pulled fluid off lungs Onset of Symptom 3 day s ago 07/10/2018 None Quality shortness of b reath 07/10/2018 None Quality breathlessness 07/10/2018 None Quality moderate (hemo globin 8-10 mg/dl) 07/10/2018 Current Hgb on 07/08/18 i s 9.3 Quality stable 07/10/2018 None arrhythmia Quality chron ic 05/06/2018 None arrhythmia Quality atria l fibrillation 05/06/2018 None arrhythmia Quality stable 05/06/2018 None edema Quality improving 05/06/2018 None insomnia Quality chronic 05/06/2018 None insomnia Quality stable 05/06/2018 None dizziness Quality foggin ess 03/15/2018 None dizziness Quality lighth eadedness 03/15/2018 None disturbances of thinking Quality acute 03/15/2018 None disturbances of thinking Quality confusion 03/15/2018 None disturbances of thinking Onset of Symptom 3 days ago 03/15/2018 None insomnia Quality chronic 02/26/2018 None insomnia Quality difficu lty falling asleep 02/26/2018 None insomnia Quality disrupt ed sleep 02/26/2018 None insomnia Onset and Resolution ongoing 02/26/2018 None well woman exam (40-65 years) 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 02/26/2018 None well woman exam (40-65 years) Lifestyle no history of physical abuse 02/26/2018 None well woman exam (40-65 years) Lifestyle no history of sexual abuse 02/26/2018 None well woman exam (40-65 years) Lifestyle no history of verbal abuse 02/26/2018 None well woman exam (40-65 years) Lifestyle regular seatbelt use 02/26/2018 None well woman exam (40-65 years) Lifestyle family supportive of relationship 02/26/2018 None well woman exam (40-65 years) Lifestyle satisfactory work experience 02/26/2018 None well woman exam (40-65 years) Lifestyle normal sleep patterns 02/26/2018 None well woman exam (40-65 years) Lifestyle abnormal amount of stress 02/26/2018 with health well woman exam (40-65 years) Lifestyle satisfactory marriage/partner relationship 02/26/2018 None well woman exam (40-65 years) Contro l none 02/26/2018 None well woman exam (40-65 years) Nutrit ion and Exercise overweight 02/26/2018 No ne well woman exam (40-65 years) Nutrit ion and Exercise minimal exercise 02/26/2018 None well woman exam (40-65 years) Nutrit ion and Exercise inadequate nutrition 02/26/2018 None insomnia Quality worseni ng 02/26/2018 None well woman exam (40-65 years) Menstr ual History menopause at age _ 02/26/2018 None well woman exam (40-65 years) Cardio vascular Risk Factors hypertension 02/26/2018 None well woman exam (40-65 years) Cardio vascular Risk Factors dyslipidemia 02/26/2018 None well woman exam (40-65 years) Cardio vascular Risk Factors obesity 02/26/2018 None well woman exam (40-65 years) Cardio vascular Risk Factors lifestyle 02/26/2018 Non e well woman exam (40-65 years) Cardio vascular Risk Factors family history of cardiovascular disease 02/26/2018 None well woman exam (40-65 years) Health Guidance self-breast exam 02/26/2018 None well woman exam (40-65 years) Health Guidance baseline mammogram 02/26/2018 None well woman exam (40-65 years) Health Guidance HIV precautions 02/26/2018 None well woman exam (40-65 years) Health Guidance STD precautions 02/26/2018 None well woman exam (40-65 years) Health Guidance hormone replacement therapy 02/26/2018 None well woman exam (40-65 years) Health Guidance genetic counseling 02/26/2018 None well woman exam (40-65 years) Health Guidance tobacco, drugs and alcohol avoidance 02/26/2018 None well woman exam (40-65 years) Health Guidance regular exercise 02/26/2018 None well woman exam (40-65 years) Health Guidance safety belt use 02/26/2018 None well woman exam (40-65 years) Health Guidance hearing loss prevention 02/26/2018 None well woman exam (40-65 years) Health Guidance limiting UV/sun exposure 02/26/2018 None well woman exam (40-65 years) Health Guidance suicide prevention 02/26/2018 None well woman exam (40-65 years) Health Guidance depression symptoms 02/26/2018 None well woman exam (40-65 years) Health Guidance colonoscopy/sigmoidoscopy 02/26/2018 None well woman exam (40-65 years) Sexual Activity is monogamous 02/26/2018 None fatigue Quality acute 01/30/2018 None fatigue Quality intermit tent 01/30/2018 None fatigue Onset and Resolution ongoing 01/30/2018 None muscle weakness Location diffusely 01/30/2018 None muscle weakness Quality upper extremities 01/30/2018 None muscle weakness Quality lower extremities 01/30/2018 None muscle weakness Onset and Resolution ongoing 01/30/2018 None arrhythmia Quality chron ic 01/30/[address] cole aug 2. arrhythmia Quality A Fib rillation 01/30/2018 None Advance Directives No Advance Directive data Encounters Encounter Performer Loca tion Codes Date ([id number]) OFFICE/OUTPA TIENT VISIT EST Diagnosis: Acute kidney failure, unspecified[ICD10: N17.9] Farhat HAWKINS DO [facility] CPT-4: 24752 03/18/2019 ([id number]) OFFICE/OUTPA TIENT VISIT EST Diagnosis: Essential (primary) hypertension[ICD10: I10] Diagnosis: Chronic atrial fibrillation[ICD10: I48.2] Diagnosis: Mixed hyperlipidemia[ICD10: E78.2] Diagnosis: Other fatigue[ICD10: R53.83] Diagnosis: Abdominal distension (gaseous)[ICD10: R14.0] Farhat HAWKINS [facility] CPT-4: 68855 02/12/2019 ([id number]) OFFICE/OUTPA TIENT VISIT EST Diagnosis: Low back pain[ICD10: M54.5] Bhavna DAILY DO [facility] CPT-4: 38385 12/25/2018 ([id number]) OFFICE/OUTPA TIENT VISIT EST Diagnosis: Low back pain[ICD10: M54.5] Bhavna DAILY DO [facility] CPT-4: 32272 12/12/2018 ([id number]) OFFICE/OUTPA TIENT VISIT EST Diagnosis: Anemia, unspecified[ICD10: D64.9] Diagnosis: Chronic atrial fibrillation[ICD10: I48.2] Diagnosis: Other fatigue[ICD10: R53.83] Farhat DAILY [employer] [facility] CPT-4: 84982 10/10/2018 ([id number]) OFFICE/OUTPA TIENT VISIT EST Diagnosis: Acute on chronic combined systolic (congestive) and diastolic (congestive) heart failure[ICD10: I50.43] Diagnosis: Chronic atrial fibrillation[ICD10: I48.2] Farhat HAWKINS [employer] [facility] CPT-4: 73811 08/27/2018 ([id number]) OFFICE/OUTPA TIENT VISIT EST Diagnosis: Chronic atrial fibrillation[ICD10: I48.2] 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] 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] Farhat DAILY DO [facility] CPT-4: 60206 08/13/2018 ([id number]) OFFICE/OUTPA TIENT VISIT EST Diagnosis: Acute on chronic combined systolic (congestive) and diastolic (congestive) heart failure[ICD10: I50.43] Diagnosis: Essential (primary) hypertension[ICD10: I10] Diagnosis: Anemia, unspecified[ICD10: D64.9] Farhat HAWKINS DO [facility] CPT-4: 49053 07/10/2018 ([id number]) OFFICE/OUTPA TIENT VISIT EST Diagnosis: Chronic atrial fibrillation[ICD10: I48.2] Diagnosis: Acute on chronic combined systolic (congestive) and diastolic (congestive) heart failure[ICD10: I50.43] Diagnosis: Localized edema[ICD10: R60.0] Farhat DAILY DO [facility] CPT-4: 01911 05/06/2018 ([id number]) OFFICE/OUTPA TIENT VISIT EST Diagnosis: Generalized abdominal pain[ICD10: R10.84] Diagnosis: Pelvic and perineal pain[ICD10: R10.2] Diagnosis: Localized edema[ICD10: R60.0] Bhavna DAILY DO [facility] CPT-4: 98929 04/17/2018 ([id number]) OFFICE/OUTPA TIENT VISIT EST Diagnosis: Urinary tract infection, site not specified[ICD10: N39.0] Diagnosis: Other insomnia[ICD10: G47.09] Diagnosis: Other fatigue[ICD10: R53.83] Diagnosis: Other forms of dyspnea[ICD10: R06.09] Diagnosis: Chronic atrial fibrillation[ICD10: I48.2] Diagnosis: Restless legs syndrome[ICD10: G25.81] Farhat HAWKINS DO [facility] CPT-4: 56198 03/26/2018 ([id number]) OFFICE/OUTPA TIENT VISIT EST Diagnosis: Altered mental status, unspecified[ICD10: R41.82] 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] Diagnosis: Hematuria, unspecified[ICD10: R31.9] Bhavna BARNETT DO [facility] CPT-4: 96779 03/15/2018 ([id number]) NURSE/OUTPAT IENT VISIT EST Diagnosis: Urinary tract infection, site not specified[ICD10: N39.0] Farhat DAILY DO [facility] CPT-4: 12458 02/06/2018 OFFICE/OUTPATIENT SIT NEW Diagnosis: [facility] (current) use of 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[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] Diagnosis: Essential (primary) hypertension[ICD10: I10] Diagnosis: Mixed hyperlipidemia[ICD10: E78.2] Diagnosis: Other fatigue[ICD10: R53.83] Diagnosis: Cardiac arrhythmia, unspecified[ICD10: I49.9] Diagnosis: Generalized abdominal pain[ICD10: R10.84] Diagnosis: Urinary tract infection, site not specified[ICD10: N39.0] Diagnosis: Other insomnia[ICD10: G47.09] Bhavna DAILY DO [facility] CPT-4: 83435 01/30/2018 Plan of Care Planned Activity Notes C odes Status Date Visit Diagnosis Plan: Acute kidney failure, unspecifie d Discussion: Was given Meloxicam at urgent care--discussed no NSAIDs, hydrate, repeat Chem 7 in 1 week ICD-9 : 584.9 ICD-10 : N17.9 03/18/2019 Visit Diagnosis Plan: Abdominal distension (gaseous) Discussion: Trial of Zenpep q AC ICD-9 : 787.3 ICD-10 : R14.0 02/12/2019 Visit Diagnosis Plan: Essential (primary) hypertension Discussion: Stable ICD-9 : 401.9 ICD-10 : I10 02/12/2019 Visit Diagnosis Plan: Chronic atrial fibrillation Discussion: Following routinely with Cardiology ICD-9 : 427.31 ICD-10 : I48.2 02/12/2019 Appointment: Farhat Daily WPtel: [facility] [place] FOLLOW UP 02/12/2019 Appointment: Bhavna [place] [facility] [place] [id number] [place] Canceled per guillermina. sending for mri [...] ICD-10 : M54.5 12/25/2018 Appointment[facility] [place] [facility] [facility] 12/25/2018 Care Plan: CT ABDOMEN W/O DYE LOINC : 79204-5 Pending 12/25/2018 Care Plan: CT PELVIS W/O DYE LOINC : 69690-9 Pending 12/25/2018 Visit Diagnosis Plan: Low back pain Discussion: UA checked to rule out kidney infection due to patient's hx and was neg on dipstick. flexeril prescribed to take as needed and discussed side effects with patient. instructed to perform ROM exercises to stretch the back muscle out. if no improvement in 2 weeks or if worsening, call clinic. ICD-9 : 724.2 ICD-10 : M54.5 12/12/2018 Appointment: Bhavna [place] [address] [facility] ACUTE ILLNESS 12/12/2018 Patient Education: cyclobenzaprine- Opti [employer] Coupon [id number] [email or web address].pdf Completed 12/12/2018 Appointment: Bhavna [place] [address] [place], [place] [id number] [place] CANCELED 12/06/2018 Visit Diagnosis Plan: Other fatigue Discussion: Increase activity--discussed 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 ICD-9 : 780.79 ICD-10 : R53.83 10/10/2018 Visit Diagnosis Plan: Chronic atrial fibrillation Discussion: Cardiology monitoring PT/INR Follow Up: 4 months ICD-9 : 427.31 ICD-10 : I48.2 10/10/2018 Visit Diagnosis Plan: Anemia, unspecified Discussion: Update CBC ICD-9 : 285.9 ICD-10 : D64.9 10/10/2018 Appointment: Farhat Daily WPtel: [address] [facility] [place] FOLLOW UP 10/10/2018 Visit Diagnosis Plan: Acute on chronic c ombined systolic (congestive) and diastolic (congestive) heart failure Discussion: Has decided to switch to Dr. Sprague and he recently started her back on amiodarone Start Cardiac rehab Follow Up: 5 weeks ICD-9 : 428.43 ICD-10 : I50.43 08/27/2018 Visit Diagnosis Plan: Chronic atrial fibrillation Discussion: Cardiology monitoring and adjusting coumadin Follow Up: As needed ICD-9 : 427.31 ICD-10 : I48.2 08/27/2018 Appointment: Farhat Daily WPtel: [address] [place], [place] [id number] FOLLOW UP 08/27/2018 Visit Diagnosis Plan: Chronic atrial fibrillation Discussion: Has fwup with Dr. Cole and will with him possibly taking care of her for all her cardiology needs ICD-9 : 427.31 ICD-10 : I48.2 08/13/2018 Visit Diagnosis Plan: [facility] (current ) use of 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 Discussion: Increase Coumadin to 5mg po daily and repeat PT/INR in 2 weeks ICD-9 : V58.61 ICD-10 : Z79.01 08/13/2018 Visit Diagnosis Plan: Chronic combined s ystolic (congestive) and diastolic (congestive) heart failure Discussion: Will try to decrease bumex to 0.5mg in evening dose on M, W, F Monitor weight and notify if increasing or worsening shortness of air Follow Up: 2 weeks ICD-9 : 428.42 ICD-10 : I50.42 08/13/2018 Appointment: Farhat Daily WPtel: [address] [place], [place] [phone] [place] FOLLOW UP 08/13/2018 Patient Education: bumetanide- [employer] Coupon [id number] [email or web address]://[email or web address]/getResource/[email or web address]/[email or web address]-[email or web address] Completed 08/13/2018 Patient Education: levothyroxine- [employer] Coupon [id number] https://[email or web address]/resources/getResource/61/1867961m-[email or web address]-aj Completed 08/13/2018 Patient Education: warfarin- [employer] Coupon [id number] https://[email or web address]/resources/getResource/61/66394527-qx99-16r6-2h Completed 08/13/2018 Patient Education: pantoprazole- Opt[employer] Coupon [phone] https://www.[email or web address].com/samplemd/resources/getResource/61/[email or web address]-[email or web address] Completed 08/13/2018 Patient Education: spironolactone- Opt[employer] Coupon 5 [id number] https://[email or web address]/samplemd/resources/getResource/61/6kf672f3-o461-8748-pe Completed 08/13/2018 Visit Diagnosis Plan: Anemia, unspecified [...] : I50.43 07/10/2018 Appointment: Farhat Daily WPtel: [facility] [place] [phone] [address] FOLLOW UP 07/10/2018 Visit Diagnosis Plan: Acute on chronic c ombined systolic (congestive) and diastolic (congestive) heart failure Discussion: Much improved on entresto and lasix See cardilogy tomorrow in fw Discussed restarting cardiac rehab in 3 weeks Check Chem 7 Follow Up: 2 months ICD-9 : 428.43 ICD-10 : I50.43 05/06/2018 Visit Diagnosis Plan: Chronic atrial fibrillation Discussion: S/P new pacemaker/defibrillator ICD-9 : 427.31 ICD-10 : I48.2 05/06/2018 Appointment: Farhat Daily WPtel: [address] [facility] [place] FOLLOW UP 05/06/2018 Visit Diagnosis Plan: Generalized abdominal pain Discussion: patient to sent to hospital for stat ct of abd/pelvis due to clinical s/s. ICD-9 : 789.07 ICD-10 : R10.84 04/17/2018 Visit Diagnosis Plan: Localized edema Discussion: will obtain ultrasound records from dr. cole but ct abd/pelvis ordered to be completed today to rule out mass/other concerning factor causing unilateral swelling. continue with compression hose to left leg as well as elevation. ICD-9 : 782.3 ICD-10 : R60.0 04/17/2018 Visit Diagnosis Plan: Pelvic and perineal pain Discussion: same as other plans ICD-9 : 625.9 ICD-10 : R10.2 04/17/2018 Appointment: Bhavna [place] [address] [place], [place] [phone] ACUTE ILLNESS 04/17/2018 Patient Education: Patient Medication Summary Completed 04/17/2018 Care Plan: CT ABDOMEN W/O & W/DYE LOINC : 55488-3 Pending 04/17/2018 Care Plan: CT PELVIS W/O & W/DYE LOINC : 22439-9 Pending 04/17/2018 Appointment: Farhat Daily WPtel: [address] [place] [address] US CANCELED 04/10/2018 Visit Diagnosis Plan: Other forms of dyspnea Discussion: Discussed starting pulmonary rehab vs cardiac rehab Follow Up: 1 months ICD-9 : 786.09 ICD-10 : R06.09 03/26/2018 Visit Diagnosis Plan: Restless legs syndrome Discussion: Trial of requip 1mg po q HS ICD-9 : 333.94 ICD-10 : G25.81 03/26/2018 Visit Diagnosis Plan: Other fatigue Discussion: Multifactoria ICD-9 : 780.79 ICD-10 : R53.83 03/26/2018 Visit Diagnosis Plan: Other insomnia Discussion: Continue restoril at 15-30mg po q HS prn sleep ICD-9 : 327.09 ICD-10 : G47.09 03/26/2018 Visit Diagnosis Plan: Chronic atrial fibrillation Discussion: Sees cardiology next week ICD-9 : 427.31 ICD-10 : I48.2 03/26/2018 Visit Diagnosis Plan: Urinary tract infe ction, site not specified Discussion: 5 more days of omnicef ICD-9 : 599.0 ICD-10 : N39.0 03/26/2018 Appointment: Farhat Daily WPtel: [address] [place] [address] ER Follow UP 03/26/2018 Patient Education: Patient Medication Summary Completed 03/26/2018 Visit Diagnosis Plan: Hematuria, unspecified Discussion: urine was obtained in office but only [...] : R41.82 03/15/2018 Appointment: Bhavna [place] [address] [place] [address] ACUTE ILLNESS 03/15/2018 Patient Education: Patient Medication Summary Completed 03/15/2018 Visit Diagnosis Plan: Functional dyspepsia Discussion: Increase protonix to 40mg po BID Follow Up: 1 months ICD-9 : 536.8 ICD-10 : K30 02/26/2018 Visit Diagnosis Plan: Primary insomnia Discussion: Trial of elavil 10mg po q HS ICD-9 : 780.52 ICD-10 : F51.01 02/26/2018 Appointment: Farhat Dailytel: [address] [place] [address] US WELCOME TO MEDICARE 02/26/2018 Patient Education: Patient Medication Summary Completed 02/26/2018 Referral: Song Noonan WPtel: [address] [place] [address] [place] Referral Initiated 02/19/2018 Appointment: Farhat Daily WPtel: [address] [place], [place] [phone] [place] LAB 02/06/2018 Patient Education: Patient Medication Summary Completed 02/06/2018 Appointment: Farhat [facility]Ptel[facility] [address] [facility] [facility] 02/01/2018 Care Plan: US EXAM ABDOM COMPLETE liver Pending 01/31/2018 Visit Diagnosis Plan: Other fatigue Discussion: will order fasting blood work to assess for any anemia or infection especially due to recent surgery and bleeding risks. ICD-9 : 780.79 ICD-10 : R53.83 01/30/2018 Visit Diagnosis Plan: Cardiac arrhythmia, unspecified Discussion: keep appt with dr. cole on feb 07. ICD-9 : 427.9 ICD-10 : I49.9 01/30/2018 Visit Diagnosis Plan: Other insomnia Discussion: instructed patient to take tylenol PM or melatonin OTC. will discuss efficacy at next visit. needs to follow up in one month ICD-9 : 327.09 ICD-10 : G47.09 01/30/2018 Visit Diagnosis Plan: Essential (primary) hypertension Discussion: stable. patient needs to follow up within a month for annual visit. ICD-9 : 401.9 ICD-10 : I10 01/30/2018 Visit Diagnosis Plan: Generalized abdominal pain Discussion: liver ultrasound to be completed based on [...] ICD-10 : R10.84 01/30/2018 Visit Diagnosis Plan: Urinary tract infe ction, site not specified Discussion: will have patient perform up dated urine culture. 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 informed her to take tylenol or remaining hydrocodone from surgery if pain develops. ICD-9 : V58.61 ICD-10 : Z79.01 01/30/2018 Appointment: Bhavna Escalante [address] [place], [place] [id number] NEW PATIENT 01/30/2018 Patient Education: Patient Medication Summary Completed 01/30/2018 Instructions No Instructions
--- OUTSIDE RECORDS SUMMARY | 2020-02-10 14:12 | XMS REPORT | CCD ---
Author Author Riana Escalante Organization [facility] Address [address] [place] [address] Phone Unavailable Care Team Providers Care Tree Care Foreman Name Role Phone PP Unavailable CCM Unavailable Summary Purpose Interface Exchange Insurance Providers Payer name Policy type / Coverage type Covered constitution party ID Effective Begin Date Effective End Date WPS MEDICARE PART B [place] Medicare Part B [id number] Unknown Cigna Medicare Part B [id number] Unknown Family History Family History data not found Social History Social History Element Codes Description Effective Dates Tobacco history SNOMED CT: 643783948 Never smoker 01/30/[address]: 998576764 Never drinks alcohol 01/30/2018 Allergies, Adverse Reactions, [...] ICD-9: 428.42 ICD-10: I50.42 Active 08/13/2018 Unknown 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 ICD-9: V58.61 ICD-10: [...] failure ICD-9: 428.42 ICD-10: I50.42 08/13/2018 Active 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 ICD-9: V58.61 ICD-10: [...] Fill Instructions bumetanide 1 mg tablet RxNorm: 945718 1 Tablet(s) PO BID (6am and 6pm) 02/13/2019 05/13/2019 Ac tive levothyroxine 25 mcg tablet RxNorm: 470044 1 Tablet(s) PO QD 02/04/2019 08/02/2019 Active warfarin 5 mg tablet RxNorm: 471824 1 TABLET(S) PO TUES, WED, THURS, SAT AND SUN AND 1/2 TABLET ON 02/04/2019 02/11/2019 Inactive Patient requests 90 days supply warfarin 5 mg tablet RxNorm: 107750 1 TABLET(S) PO TUES, WED, THURS, SAT AND SUN AND 1/2 TABLET ON 02/03/2019 02/03/2019 Inactive Patient requests 90 days supply temazepam 15 mg capsule RxNorm: 485724 TAKE 1 TO 2 CAPSULES BY MOUTH AT BEDTIME NEEDED FOR SLEEP 01/31/2019 No Stop Date Active levothyroxine 25 mcg tablet RxNorm: 401786 1 Tablet(s) PO QD 01/31/2019 02/03/2019 Inactive warfarin 5 mg tablet RxNorm: 013801 1 Tablet(s) PO Tues, Wed, Thurs, Sat and Sun and 1/2 tablet on 01/31/2019 02/02/2019 Inactive cyclobenzaprine 10 m g tablet RxNorm: 130609 1 Tablet(s) PO Q8H as needed 12/30/2018 No Stop Date Active losartan 25 mg tablet RxNorm: 668496 1 Tablet(s) PO QAM 12/27/2018 06/24/2019 Active Lidoderm 5 % topical patch RxNorm: 5811836 1 Application TOP Q1 2H and then off for 12 hours 12/25/2018 01/23/2019 Inactive Lidoderm 5 % topical patch RxNorm: 3004265 1 Application TOP Q1 2H and then off for 12 hours 12/25/2018 12/24/2018 Inactive cyclobenzaprine 5 mg tablet RxNorm: 145343 1 Tablet(s) PO Q8H as needed 12/12/2018 12/24/2018 In active spironolactone 25 mg tablet RxNorm: 404565 1 Tablet(s) PO BID 09/20/2018 06/16/2019 Active change in directions to BID pantoprazole 40 mg t ablet,delayed release RxNorm: 868965 1 Tablet(s) PO QD 09/20/2018 06/16/2019 Ac tive Patient requests 90 days supply spironolactone 25 mg tablet RxNorm: 563595 1 Tablet(s) PO BID 08/26/2018 09/19/2018 Inactive change in directions to BID pantoprazole 40 mg t ablet,delayed release RxNorm: 317015 1 Tablet(s) PO QD 08/15/2018 09/19/2018 In active Patient requests 90 days supply carvedilol 6.25 mg t ablet RxNorm: 815176 1 Tablet(s) PO BID 08/13/2018 02/08/2019 Inactive pantoprazole 40 mg t ablet,delayed release RxNorm: 523887 1 Tablet(s) PO QD 1 T ABLET(S) PO BID 08/13/2018 08/15/2018 Inactive Patient requests 90 days supply bumetanide 1 mg tablet RxNorm: 043216 1 Tablet(s) PO BID (6am and 6pm) 08/13/2018 02/08/2019 In active bumetanide 0.5 mg ta blet RxNorm: 228125 1 Tablet(s) PO QPM th ree days a week--Sunday, Sun, Sunday instead of 1mg dose in evening 08/13/2018 02/11/2019 Inactive levothyroxine 25 mcg tablet RxNorm: 333177 1 Tablet(s) PO QD 08/13/2018 01/30/2019 Inactive spironolactone 25 mg tablet RxNorm: 305452 1 Tablet(s) PO QD 08/13/2018 08/25/2018 Inactive losartan 25 mg tablet RxNorm: 686887 1 Tablet(s) PO QAM 08/13/2018 12/26/2018 Inactive warfarin 5 mg tablet RxNorm: 330615 1 Tablet(s) PO QD 08/13/2018 08/26/2018 Inactive pantoprazole 40 mg t ablet,delayed release RxNorm: 444948 1 TABLET(S) PO BID 08/02/2018 08/12/2018 In active Patient requests 90 days supply temazepam 15 mg capsule RxNorm: 092587 1-2 Capsule(s) PO QHS as needed for slee p 2018 01/31/2019 In active Restoril 15 mg capsule RxNorm: 946865 1-2 Capsule(s) PO QHS as needed for slee p 06/04/2018 08/12/2018 In active potassium chloride E R 10 mEq capsule,extended release RxNorm: 145912 2 CAPSULE(S) PO QD 05/07/2018 08/04/2018 Inactive Patient requests 90 days supply temazepam 22.5 mg ca psule RxNorm: 401759 1 Capsule(s) PO QHS a s needed for sleep 05/06/2018 08/12/2018 In active potassium chloride E R 10 mEq capsule,extended release RxNorm: 283926 2 Capsule(s) PO QD 05/06/2018 05/06/2018 Inactive ropinirole 1 mg tablet RxNorm: 550622 1 TABLET(S) PO QHS FOR RESTLESS LEGS 03/27/2018 04/25/2018 In active Patient requests 90 days supply ropinirole 1 mg tablet RxNorm: 452192 1 Tablet(s) PO QHS for restless legs 03/26/2018 03/26/2018 In active cefdinir 300 mg capsule RxNorm: 782088 1 Capsule(s) PO BID 03/26/2018 03/30/2018 Inactive temazepam 15 mg capsule RxNorm: 993117 1 Capsule(s) PO QHS as needed 03/20/2018 03/25/2018 In active Lunesta 3 mg tablet RxNorm: 880491 1 Tablet(s) PO QHS as needed for sleep 03/04/2018 03/19/2018 In active amitriptyline 10 mg tablet RxNorm: 736525 1 Tablet(s) PO QHS fo r sleep 02/26/2018 03/03/2018 In active escitalopram 20 mg t ablet RxNorm: 335478 1 Tablet(s) PO QHS 02/26/2018 08/12/2018 Inactive pantoprazole 40 mg t ablet,delayed release RxNorm: 427147 1 Tablet(s) PO BID 02/26/2018 04/26/2018 In active Coumadin 2.5 mg tablet RxNorm: 587300 1 Tablet(s) PO MWF 02/18/2018 07/22/2018 Inactive amiodarone 200 mg ta blet RxNorm: 231639 1 Tablet(s) PO QD No Start Date Active colestipol 1 gram ta blet RxNorm: 4612720 1 Tablet(s) PO BID No Start Date Active pantoprazole 40 mg t ablet,delayed release RxNorm: 525391 1 Tablet(s) PO QD No Start Date Active [employer] min with Iron tablet RxNorm: 1 Tablet(s) PO QD No Start Date Active warfarin 5 mg tablet RxNorm: 958463 1/2 Tablet(s) PO on Mon, Wed, Fri, Sun t hen 1 tablet on Tue, Thur, Sat No Start Date Active pantoprazole 40 mg t ablet,delayed release RxNorm: 096617 1 Tablet(s) PO QD No Start Date 02/25/2018 Inactive bumetanide 1 mg tablet RxNorm: 599870 1 Tablet(s) PO BID (6am and 6pm) No Start Date 08/12/2018 Inactive potassium chloride E R 10 mEq tablet,extended release RxNorm: 013155 1 Tablet(s) PO QD No Start Date 02/11/2019 Inactive levothyroxine 25 mcg tablet RxNorm: 275915 1 Tablet(s) PO QD No Start Date 08/12/2018 Inactive spironolactone 25 mg tablet RxNorm: 506238 1 Tablet(s) PO QD No Start Date 08/12/2018 Inactive warfarin 5 mg tablet RxNorm: 181941 1 Tablet(s) PO MWF No Start Date 08/12/2018 Inactive warfarin 5 mg tablet RxNorm: 127235 1 Tablet(s) PO , Sun, , Sat and Sun then 1/2 tablet (2.5mg) on Sun & Sun No Start Date 08/12/2018 Inactive losartan 25 mg tablet RxNorm: 928627 1 Tablet(s) PO QAM No Start Date 08/12/2018 Inactive carvedilol 6.25 mg t ablet RxNorm: 989164 1 Tablet(s) PO BID No Start Date 08/12/2018 Inactive warfarin 2.5 mg tablet RxNorm: 854819 1 Tablet(s) PO , , Sat and Sun No Start Date 08/12/2018 Inactive Coumadin 2.5 mg tablet RxNorm: 036035 Tablet(s) Sun and Sun PO No Start Date 02/17/2018 Inactive potassium chloride E R 20 mEq tablet,extended release(part/cryst) RxNorm: 2080473 2 Tablet(s) PO QD No Start Date 05/05/2018 Inactive Coumadin 5 mg tablet RxNorm: 803079 Tablet(s) PO No Start Date 01/29/2018 Inactive mexiletine 200 mg ca psule RxNorm: 1929450 1 Capsule(s) PO BID No Start Date 03/25/2018 Inactive ferrous sulfate 325 mg (65 mg iron) tablet RxNorm: 950446 1 Tablet(s) PO QD No Start Date 07/22/2018 Inactive cyclobenzaprine 10 m g tablet RxNorm: 406696 1 Tablet(s) PO Q8H as needed No Start Date 12/29/2018 Inactive potassium chloride E R 10 mEq capsule,extended release RxNorm: 715385 2 Capsule(s) PO QD No Start Date 12/11/2018 Inactive Coumadin 5 mg tablet RxNorm: 728249 1 Tablet(s) PO , Th, Sat and Sun No Start Date 07/22/2018 Inactive Restoril 15 mg capsule RxNorm: 696105 1-2 Capsule(s) PO QHS as needed for slee p No Start Date 05/05/2018 Inactive metoprolol succinate ER 25 mg tablet,extended release 24 hr RxNorm: 297955 1 Tablet(s) PO QD No Start Date 08/12/2018 Inactive Entresto 24 mg-26 mg tablet RxNorm: 8712051 1 Tablet(s) PO BID No Start Date 08/12/2018 Inactive warfarin 5 mg tablet RxNorm: 559238 1 Tablet(s) PO Tu, Sun, Th, Sat and Sun and 1/2 tablet on Mon/Fri No Start Date 01/30/2019 Inactive amiodarone 200 mg ta blet RxNorm: 339701 2 Tablet(s) PO BID No Start Date 10/09/2018 Inactive furosemide 20 mg tablet RxNorm: 740886 1 Tablet(s) PO QD No Start Date 08/12/2018 Inactive amiodarone 200 mg ta blet RxNorm: 506454 1 Tablet(s) PO BID No Start Date 08/26/2018 Inactive atorvastatin 40 mg t ablet RxNorm: 633049 1 Tablet(s) PO QD No Start Date [...] heart failure ICD-10: I50.42 ICD-9: 428.42 08/13/2018 nursing home (current) use of 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 ICD-10: Z79.01 ICD-9: [...] Item Item Code Result Date UA W/MICR 53190 UA Urine Appear Normal 02/06/2018 UA W/MICR 18332 UA Prote in 3+ 02/06/2018 UA W/MICR 56933 UA Hemog lobin Trace 02/06/2018 UA W/MICR 98168 UA Gluco se Negative 02/06/2018 UA W/MICR 21326 UA [place] es Negative 02/06/2018 UA W/MICR 61271 UA pH 5.5 02/06/2018 UA W/MICR 31839 U Spec G ravity 1.025 02/06/2018 UA W/MICR 33683 UA Bilir ubin Negative 02/06/2018 UA W/MICR 64017 UA Leuk Esteras Trace 02/06/2018 UA W/MICR 54249 UA Nitri te NEG 02/06/2018 UA W/MICR 00292 UA WBC/h pf 11-25 02/06/2018 UA W/MICR 97559 UA RBC h pf 0-5 02/06/2018 UA W/MICR 05850 UA Hyali ne Cast 16-25 02/06/2018 UA W/MICR 43744 UA Squam Epi Few 02/06/2018 Review of [...] Date URINALYSIS NONAUTO W /O SCOPE CPT-4: 73986 03/18/2019 URINALYSIS NONAUTO W /O SCOPE CPT-4: 20283 12/12/2018 URINE CULTURE/ COLON Y COUNT CPT-4: 29113 03/26/2018 URINALYSIS NONAUTO W /O SCOPE CPT-4: 94596 03/15/2018 INITIAL PREVENTIVE EXAM CPT-4: G0402 02/26/2018 URINALYSIS NONAUTO W /O SCOPE CPT-4: 65353 02/06/2018 URINE CULTURE/ COLON Y COUNT CPT-4: 52048 02/06/2018 UA W/MICR CPT-4: 52113 02/06/2018 CUR TOBACCO NON-USER CPT-4: G8457 01/30/2018 REPAIR BLADDER & VAGINA CPT-4: 35723 01/06/2017 REPAIR OF RECTOCELE CPT- 4: 45814 01/06/2017 BREAST SURGERY PROCE DURE CPT-4: 54054 Unknown LAPARO CHOLECYSTECTO MY/EXPLR CPT-4: 31740 Unknown HYSTERECTOMY/REVISE VAGINA CPT-4: 83420 Unknown Vital Signs Date Vital 03/18/2019 Blood [...] 1: 106/58 Code: 8480-6 BMI: 26.3 Code: 85650-0 Heart Rate 1: 72 bpm Height: 4'10" Respiratory Rate: 20 bpm SpO2: 97% Temperature: 36.6 (C ) / 97.8 (F) Weight: 128 lbs 07/10/2018 Blood Pressure 1: 122/70 Code: 8480-6 BMI: 28.6 Code: 64785-6 Heart Rate 1: 80 bpm Height: 4'10" Respiratory Rate: 20 bpm SpO2: 96% Temperature: 36.9 (C ) / 98.4 (F) Weight: 139 lbs 05/06/2018 Blood Pressure 1: 112/54 Code: 8480-6 BMI: 27.5 Code: 10538-3 Heart Rate 1: 80 bpm Height: 4'10" [...] 1: 146/80 Code: 8480-6 BMI: 30.0 Code: 94149-1 Heart Rate 1: 76 bpm Height: 4'10" Respiratory Rate: 20 bpm SpO2: 97% Temperature: 36.7 (C ) / 98.1 (F) Weight: 146 lbs 02/26/2018 Blood Pressure 1: 126/80 Code: 8480-6 BMI: 29.6 Code: 64632-1 Heart Rate 1: 80 bpm Height: 4'10" Respiratory Rate: 18 bpm SpO2: 96% Temperature: 37.0 (C ) / 98.6 (F) Weight: 144 lbs 01/30/2018 Blood Pressure 1: 120/78 Code: 8480-6 BMI: 29.6 Code: 06858-2 Heart Rate 1: 84 bpm Height: 4'10" [...] Patient was evaluated in ER on Sunday an they pulled fluid off lungs Onset of [...] None well woman exam (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 02/26/2018 None well woman [...] Encounters Encounter Performer Loca tion Codes Date ([id number]) OFFICE/OUTPA TIENT VISIT EST Diagnosis: Acute kidney failure, unspecified[ICD10: N17.9] Farhat HAWKINS DO [facility] CPT-4: 03171 03/18/2019 ([id number]) OFFICE/OUTPA TIENT VISIT EST Diagnosis: Essential (primary) hypertension[ICD10: I10] Diagnosis: Chronic atrial fibrillation[ICD10: I48.2] Diagnosis: Mixed hyperlipidemia[ICD10: E78.2] Diagnosis: Other fatigue[ICD10: R53.83] Diagnosis: Abdominal distension (gaseous)[ICD10: R14.0] Farhat HAWKINS [employer] [facility] CPT-4: 04818 02/12/2019 ([id number]) OFFICE/OUTPA TIENT VISIT EST Diagnosis: Low back pain[ICD10: M54.5] Bhavna DAILY DO [facility] CPT-4: 69245 12/25/2018 ([id number]) OFFICE/OUTPA TIENT VISIT EST Diagnosis: Low back pain[ICD10: M54.5] Bhavna DAILY [facility] CPT-4: 67743 12/12/2018 ([id number]) OFFICE/OUTPA TIENT VISIT EST Diagnosis: Anemia, unspecified[ICD10: D64.9] Diagnosis: Chronic atrial fibrillation[ICD10: I48.2] Diagnosis: Other fatigue[ICD10: R53.83] Farhat DAILY [employer] [facility] CPT-4: 51428 10/10/2018 ([id number]) OFFICE/OUTPA TIENT VISIT EST Diagnosis: Acute on chronic combined systolic (congestive) and diastolic (congestive) heart failure[ICD10: I50.43] Diagnosis: Chronic atrial fibrillation[ICD10: I48.2] Farhat HAWKINS [employer] [facility] CPT-4: 91394 08/27/2018 ([id number]) OFFICE/OUTPA TIENT VISIT EST Diagnosis: Chronic atrial fibrillation[ICD10: I48.2] 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] Diagnosis: nursing home (current) use of 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[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] Farhat DAILY [employer] [facility] CPT-4: 33208 08/13/2018 ([id number]) OFFICE/OUTPA TIENT VISIT EST Diagnosis: Acute on chronic combined systolic (congestive) and diastolic (congestive) heart failure[ICD10: I50.43] Diagnosis: Essential (primary) hypertension[ICD10: I10] Diagnosis: Anemia, unspecified[ICD10: D64.9] Farhat HAWKINS [facility] CPT-4: 01135 07/10/2018 ([id number]) OFFICE/OUTPA TIENT VISIT EST Diagnosis: Chronic atrial fibrillation[ICD10: I48.2] Diagnosis: Acute on chronic combined systolic (congestive) and diastolic (congestive) heart failure[ICD10: I50.43] Diagnosis: Localized edema[ICD10: R60.0] Farhat DAILY [facility] CPT-4: 74466 05/06/2018 ([id number]) OFFICE/OUTPA TIENT VISIT EST Diagnosis: Generalized abdominal pain[ICD10: R10.84] Diagnosis: Pelvic and perineal pain[ICD10: R10.2] Diagnosis: Localized edema[ICD10: R60.0] Bhavna DAILY [facility] CPT-4: 80275 04/17/2018 ([id number]) OFFICE/OUTPA TIENT VISIT EST Diagnosis: Urinary tract infection, site not specified[ICD10: N39.0] Diagnosis: Other insomnia[ICD10: G47.09] Diagnosis: Other fatigue[ICD10: R53.83] Diagnosis: Other forms of dyspnea[ICD10: R06.09] Diagnosis: Chronic atrial fibrillation[ICD10: I48.2] Diagnosis: Restless legs syndrome[ICD10: G25.81] Farhat HAWKINS [facility] CPT-4: 56549 03/26/2018 ([id number]) OFFICE/OUTPA TIENT VISIT EST Diagnosis: Altered mental status, unspecified[ICD10: R41.82] Diagnosis: nursing home (current) use of 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[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] Diagnosis: Hematuria, unspecified[ICD10: R31.9] Bhavna BARNETT [facility] CPT-4: 14548 03/15/2018 ([id number]) NURSE/OUTPAT IENT VISIT EST Diagnosis: Urinary tract infection, site not specified[ICD10: N39.0] Farhat DAILY [facility] CPT-4: 10736 02/06/2018 OFFICE/OUTPATIENT SIT NEW 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: 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[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] Diagnosis: Essential (primary) hypertension[ICD10: I10] Diagnosis: Mixed hyperlipidemia[ICD10: E78.2] Diagnosis: Other fatigue[ICD10: R53.83] Diagnosis: Cardiac arrhythmia, unspecified[ICD10: I49.9] Diagnosis: Generalized abdominal pain[ICD10: R10.84] Diagnosis: Urinary tract infection, site not specified[ICD10: N39.0] Diagnosis: Other insomnia[ICD10: G47.09] Bhavna DAILY [facility] CPT-4: 20363 01/30/2018 Plan of Care Planned Activity Notes [...] : I48.2 02/12/2019 Appointment: Farhat Daily WPtel: [phone] [facility] US FOLLOW UP 02/12/2019 Appointment: Bhavna Escalante [facility] imagine [place] [id number] [place] Canceled per guillermina. sending for mri [...] : M54.5 12/25/2018 Appointment: Bhavna Escalante [id number] ACUTE ILLNESS 12/25/2018 Care Plan: CT ABDOMEN W/O DYE LOINC : 79665-7 Pending 12/25/2018 Care Plan: CT PELVIS W/O DYE LOINC : 69585-8 Pending 12/25/2018 Visit Diagnosis Plan: Low back [...] ICD-10 : M54.5 12/12/2018 Appointment: Bhavna Escalante [address] [place], [place] [id number] ACUTE ILLNESS 12/12/2018 Patient Education: cyclobenzaprine- Opti mizeRX Coupon [id number] https://www.[employer]/sampleDigital Magics/resources/getResource/61/cj7388h9-p751-9y8z-b6 b2-11t5266v2538.pdf Completed 12/12/2018 Appointment: Bhavna Escalante [address] [place], [place] [address] [facility] US CANCELED 12/06/2018 Visit Diagnosis Plan: Other fatigue Discussion: Increase activity--discussed 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 ICD-9 : 780.79 ICD-10 : R53.83 10/10/2018 Visit Diagnosis Plan: Chronic atrial fibrillation Discussion: Cardiology monitoring PT/INR Follow Up: 4 months ICD-9 : 427.31 ICD-10 : I48.2 10/10/2018 Visit Diagnosis Plan: Anemia, unspecified Discussion: Update CBC ICD-9 : 285.9 ICD-10 : D64.9 10/10/2018 Appointment: Farhat Daily WPtel: [phone] [facility] US FOLLOW UP 10/10/2018 Visit Diagnosis Plan: [...] : I48.2 08/27/2018 Appointment: Farhat [facility] [facility] 08/27/2018 Visit Diagnosis Plan: Chronic atrial fibrillation Discussion: Has fwup with Dr. 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 care social worker (current ) use of 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 Discussion: Increase [...] : 428.42 ICD-10 : I50.42 08/13/2018 Appointment: Farhta Daily [facility]Ptel[phone] [facility] [facility] 08/13/2018 Patient Education: bumetanide- OptimizeRX Coupon [id number] https://www.[employer]/resources/getResource/61/4zl54e09-0wi1-2l77-xu Completed 08/13/2018 Patient Education: levothyroxine- OptimizeRX Coupon [id number] https://www.[employer]/samplemd/resources/getResource/61/3979860y-7428-1c10-hz Completed 08/13/2018 Patient Education: warfarin- OptimizeRX Coupon [id number] https://www.[employer]/resources/getResource/61/66710982-zm22-10j0-8x Completed 08/13/2018 Patient Education: pantoprazole- OptimizeRX Coupon 568 [id number] https://www.[employer]/samplemd/resources/getResource/61/x4988r45-45j4-87wk-0j Completed 08/13/2018 Patient Education: spironolactone- OptimizeRX Coupon 5 [id number] https://www.[employer]/samplemd/resources/getResource/61/5te633g0-l958-1780-di Completed 08/13/2018 Visit Diagnosis Plan: Anemia, unspecified [...] : I50.43 07/10/2018 Appointment: Farhat Daily WPtel: [facility] FOLLOW UP 07/10/2018 Visit Diagnosis Plan: Acute on chronic c ombined systolic (congestive) and diastolic (congestive) heart failure Discussion: Much improved on entresto and lasix See cardilogy tomorrow in fwup Discussed restarting cardiac rehab in 3 weeks Check Chem 7 Follow Up: 2 months ICD-9 : 428.43 ICD-10 : I50.43 05/06/2018 Visit Diagnosis Plan: Chronic atrial fibrillation Discussion: S/P new pacemaker/defibrillator ICD-9 : 427.31 ICD-10 : I48.2 05/06/2018 Appointment: Farhat Daily WPtel[facility] [phone] [facility] [facility] 05/06/2018 Visit Diagnosis [...] : R10.2 04/17/2018 Appointment: Bhavna Escalante [address] ACUTE ILLNESS 04/17/2018 Patient Education: Patient Medication Summary Completed 04/17/2018 Care Plan: CT ABDOMEN W/O & W/DYE LOINC : 62298-6 Pending 04/17/2018 Care Plan: CT PELVIS W/O & W/DYE LOINC : 61643-6 Pending 04/17/2018 Appointment: Farhat Daily WPtel: [address] [place] [address] US CANCELED 04/10/2018 Visit Diagnosis Plan: Other [...] : N39.0 03/26/2018 Appointment: Farhat Daily WPtel: [facility] [address] ER Follow UP 03/26/2018 Patient Education: Patient [...] ICD-10 : R41.82 03/15/2018 Appointment: Bhavna Escalante [address] [place] [address] ACUTE ILLNESS 03/15/2018 Patient Education: Patient Medication Summary Completed 03/15/2018 Visit Diagnosis Plan: Functional dyspepsia Discussion: Increase protonix to 40mg po BID Follow Up: 1 months ICD-9 : 536.8 ICD-10 : K30 02/26/2018 Visit Diagnosis Plan: Primary insomnia Discussion: Trial of elavil 10mg po q HS ICD-9 : 780.52 ICD-10 : F51.01 02/26/2018 Appointment: Farhat Daily WPtel: [address] [place] [address] WELCOME TO MEDICARE 02/26/2018 Patient Education: Patient Medication Summary Completed 02/26/2018 Referral: Song Noonan WPtel: [address] [place] [address] [place] Referral Initiated 02/19/2018 Appointment: Farhat Daily WPtel: [address] [place] [address] LAB 02/06/2018 Patient Education: Patient Medication Summary Completed 02/06/2018 Appointment: Farhat Daily WPtel: [phone] [facility] [id number] US CANCELED 02/01/2018 Care Plan: US EXAM [...] ICD-10 : N39.0 01/30/2018 Visit Diagnosis Plan: nursing home (current ) 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 informed her to take tylenol or remaining hydrocodone from surgery if pain develops. ICD-9 : V58.61 ICD-10 : Z79.01 01/30/2018 Visit Diagnosis Plan: Essential (primary) hypertension Discussion: stable. patient needs to follow up within a month for annual visit. ICD-9 : 401.9 ICD-10 : I10 01/30/2018 App[facility]ment[facility] [facility] 01/30/2018 Patient Education: Patient Medication Summary Completed 01/30/2018 Instructions No Instructions
--- OUTSIDE RECORDS SUMMARY | 2020-02-10 14:13 | XMS REPORT | CCD ---
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 Name Role Phone PP Unavailable CCM Unavailable Summary Purpose Interface Exchange Insurance Providers Payer name Policy type / Coverage type Covered green party ID Effective Begin Date Effective End Date WPS MEDICARE PART B [place] Medicare Part B [id number] Unknown Cigna Medicare Part B [id number] Unknown Family History Family History data not found Social History Social History Element Codes Description Effective Dates Tobacco history SNOMED CT: 130611700 Never smoker 01/30/[address]: 941126941 Never drinks alcohol 01/30/2018 Allergies, Adverse Reactions, [...] ICD-9: 428.42 ICD-10: I50.42 Active 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 ICD-9: V58.61 ICD-10: [...] failure ICD-9: 428.42 ICD-10: I50.42 08/13/2018 Active 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 ICD-9: V58.61 ICD-10: [...] Fill Instructions bumetanide 1 mg tablet RxNorm: 840468 1 Tablet(s) PO BID (6am and 6pm) 02/13/2019 05/13/2019 Ac tive levothyroxine 25 mcg tablet RxNorm: 684401 1 Tablet(s) PO QD 02/04/2019 08/02/2019 Active warfarin 5 mg tablet RxNorm: 637681 1 TABLET(S) PO TUES, WED, THURS, SAT AND SUN AND 1/2 TABLET ON 02/04/2019 02/11/2019 Inactive Patient requests 90 days supply warfarin 5 mg tablet RxNorm: 352293 1 TABLET(S) PO TUES, WED, THURS, SAT AND SUN AND 1/2 TABLET ON 02/03/2019 02/03/2019 Inactive Patient requests 90 days supply temazepam 15 mg capsule RxNorm: 153535 TAKE 1 TO 2 CAPSULES BY MOUTH AT BEDTIME NEEDED FOR SLEEP 01/31/2019 No Stop Date Active levothyroxine 25 mcg tablet RxNorm: 222909 1 Tablet(s) PO QD 01/31/2019 02/03/2019 Inactive warfarin 5 mg tablet RxNorm: 013150 1 Tablet(s) PO Tues, Wed, Thurs, Sat and Sun and 1/2 tablet on 01/31/2019 02/02/2019 Inactive cyclobenzaprine 10 m g tablet RxNorm: 893961 1 Tablet(s) PO Q8H as needed 12/30/2018 No Stop Date Active losartan 25 mg tablet RxNorm: 111642 1 Tablet(s) PO QAM 12/27/2018 06/24/2019 Active Lidoderm 5 % topical patch RxNorm: 5338261 1 Application TOP Q1 2H and then off for 12 hours 12/25/2018 01/23/2019 Inactive Lidoderm 5 % topical patch RxNorm: 9093304 1 Application TOP Q1 2H and then off for 12 hours 12/25/2018 12/24/2018 Inactive cyclobenzaprine 5 mg tablet RxNorm: 059797 1 Tablet(s) PO Q8H as needed 12/12/2018 12/24/2018 In active spironolactone 25 mg tablet RxNorm: 604163 1 Tablet(s) PO BID 09/20/2018 06/16/2019 Active change in directions to BID pantoprazole 40 mg t ablet,delayed release RxNorm: 341708 1 Tablet(s) PO QD 09/20/2018 06/16/2019 Ac tive Patient requests 90 days supply spironolactone 25 mg tablet RxNorm: 783703 1 Tablet(s) PO BID 08/26/2018 09/19/2018 Inactive change in directions to BID pantoprazole 40 mg t ablet,delayed release RxNorm: 844651 1 Tablet(s) PO QD 08/15/2018 09/19/2018 In active Patient requests 90 days supply carvedilol 6.25 mg t ablet RxNorm: 619913 1 Tablet(s) PO BID 08/13/2018 02/08/2019 Inactive pantoprazole 40 mg t ablet,delayed release RxNorm: 462274 1 Tablet(s) PO QD 1 T ABLET(S) PO BID 08/13/2018 08/15/2018 Inactive Patient requests 90 days supply bumetanide 1 mg tablet RxNorm: 411819 1 Tablet(s) PO BID (6am and 6pm) 08/13/2018 02/08/2019 In active bumetanide 0.5 mg ta blet RxNorm: 965975 1 Tablet(s) PO QPM th ree days a week--Sunday, Sun, Sunday instead of 1mg dose in evening 08/13/2018 02/11/2019 Inactive levothyroxine 25 mcg tablet RxNorm: 819709 1 Tablet(s) PO QD 08/13/2018 01/30/2019 Inactive spironolactone 25 mg tablet RxNorm: 773617 1 Tablet(s) PO QD 08/13/2018 08/25/2018 Inactive losartan 25 mg tablet RxNorm: 680923 1 Tablet(s) PO QAM 08/13/2018 12/26/2018 Inactive warfarin 5 mg tablet RxNorm: 823204 1 Tablet(s) PO QD 08/13/2018 08/26/2018 Inactive pantoprazole 40 mg t ablet,delayed release RxNorm: 215903 1 TABLET(S) PO BID 08/02/2018 08/12/2018 In active Patient requests 90 days supply temazepam 15 mg capsule RxNorm: 320954 1-2 Capsule(s) PO QHS as needed for slee p 2018 01/31/2019 In active Restoril 15 mg capsule RxNorm: 211118 1-2 Capsule(s) PO QHS as needed for slee p 06/04/2018 08/12/2018 In active potassium chloride E R 10 mEq capsule,extended release RxNorm: 080803 2 CAPSULE(S) PO QD 05/07/2018 08/04/2018 Inactive Patient requests 90 days supply temazepam 22.5 mg ca psule RxNorm: 249560 1 Capsule(s) PO QHS a s needed for sleep 05/06/2018 08/12/2018 In active potassium chloride E R 10 mEq capsule,extended release RxNorm: 566046 2 Capsule(s) PO QD 05/06/2018 05/06/2018 Inactive ropinirole 1 mg tablet RxNorm: 278139 1 TABLET(S) PO QHS FOR RESTLESS LEGS 03/27/2018 04/25/2018 In active Patient requests 90 days supply ropinirole 1 mg tablet RxNorm: 515576 1 Tablet(s) PO QHS for restless legs 03/26/2018 03/26/2018 In active cefdinir 300 mg capsule RxNorm: 259168 1 Capsule(s) PO BID 03/26/2018 03/30/2018 Inactive temazepam 15 mg capsule RxNorm: 497621 1 Capsule(s) PO QHS as needed 03/20/2018 03/25/2018 In active Lunesta 3 mg tablet RxNorm: 806421 1 Tablet(s) PO QHS as needed for sleep 03/04/2018 03/19/2018 In active amitriptyline 10 mg tablet RxNorm: 229886 1 Tablet(s) PO QHS fo r sleep 02/26/2018 03/03/2018 In active escitalopram 20 mg t ablet RxNorm: 210000 1 Tablet(s) PO QHS 02/26/2018 08/12/2018 Inactive pantoprazole 40 mg t ablet,delayed release RxNorm: 763783 1 Tablet(s) PO BID 02/26/2018 04/26/2018 In active Coumadin 2.5 mg tablet RxNorm: 513543 1 Tablet(s) PO MWF 02/18/2018 07/22/2018 Inactive amiodarone 200 mg ta blet RxNorm: 429852 1 Tablet(s) PO QD No Start Date Active colestipol 1 gram ta blet RxNorm: 7886583 1 Tablet(s) PO BID No Start Date Active pantoprazole 40 mg t ablet,delayed release RxNorm: 226441 1 Tablet(s) PO QD No Start Date Active [employer] min with Iron tablet RxNorm: 1 Tablet(s) PO QD No Start Date Active warfarin 5 mg tablet RxNorm: 422598 1/2 Tablet(s) PO on Mon, Wed, Fri, Sun t hen 1 tablet on Tue, Thur, Sat No Start Date Active pantoprazole 40 mg t ablet,delayed release RxNorm: 047857 1 Tablet(s) PO QD No Start Date 02/25/2018 Inactive bumetanide 1 mg tablet RxNorm: 592642 1 Tablet(s) PO BID (6am and 6pm) No Start Date 08/12/2018 Inactive potassium chloride E R 10 mEq tablet,extended release RxNorm: 542701 1 Tablet(s) PO QD No Start Date 02/11/2019 Inactive levothyroxine 25 mcg tablet RxNorm: 988043 1 Tablet(s) PO QD No Start Date 08/12/2018 Inactive spironolactone 25 mg tablet RxNorm: 023489 1 Tablet(s) PO QD No Start Date 08/12/2018 Inactive warfarin 5 mg tablet RxNorm: 361537 1 Tablet(s) PO MWF No Start Date 08/12/2018 Inactive warfarin 5 mg tablet RxNorm: 172987 1 Tablet(s) PO , Sun, , Sat and Sun then 1/2 tablet (2.5mg) on Sun & Sun No Start Date 08/12/2018 Inactive losartan 25 mg tablet RxNorm: 953456 1 Tablet(s) PO QAM No Start Date 08/12/2018 Inactive carvedilol 6.25 mg t ablet RxNorm: 635987 1 Tablet(s) PO BID No Start Date 08/12/2018 Inactive warfarin 2.5 mg tablet RxNorm: 440918 1 Tablet(s) PO , , Sat and Sun No Start Date 08/12/2018 Inactive Coumadin 2.5 mg tablet RxNorm: 626630 Tablet(s) Sun and Sun PO No Start Date 02/17/2018 Inactive potassium chloride E R 20 mEq tablet,extended release(part/cryst) RxNorm: 2613272 2 Tablet(s) PO QD No Start Date 05/05/2018 Inactive Coumadin 5 mg tablet RxNorm: 348343 Tablet(s) PO No Start Date 01/29/2018 Inactive mexiletine 200 mg ca psule RxNorm: 9260967 1 Capsule(s) PO BID No Start Date 03/25/2018 Inactive ferrous sulfate 325 mg (65 mg iron) tablet RxNorm: 576231 1 Tablet(s) PO QD No Start Date 07/22/2018 Inactive cyclobenzaprine 10 m g tablet RxNorm: 099753 1 Tablet(s) PO Q8H as needed No Start Date 12/29/2018 Inactive potassium chloride E R 10 mEq capsule,extended release RxNorm: 738739 2 Capsule(s) PO QD No Start Date 12/11/2018 Inactive Coumadin 5 mg tablet RxNorm: 832968 1 Tablet(s) PO , Th, Sat and Sun No Start Date 07/22/2018 Inactive Restoril 15 mg capsule RxNorm: 636901 1-2 Capsule(s) PO QHS as needed for slee p No Start Date 05/05/2018 Inactive metoprolol succinate ER 25 mg tablet,extended release 24 hr RxNorm: 389514 1 Tablet(s) PO QD No Start Date 08/12/2018 Inactive Entresto 24 mg-26 mg tablet RxNorm: 7513756 1 Tablet(s) PO BID No Start Date 08/12/2018 Inactive warfarin 5 mg tablet RxNorm: 379575 1 Tablet(s) PO Tu, Sun, Th, Sat and Sun and 1/2 tablet on Mon/Fri No Start Date 01/30/2019 Inactive amiodarone 200 mg ta blet RxNorm: 825785 2 Tablet(s) PO BID No Start Date 10/09/2018 Inactive furosemide 20 mg tablet RxNorm: 685875 1 Tablet(s) PO QD No Start Date 08/12/2018 Inactive amiodarone 200 mg ta blet RxNorm: 604796 1 Tablet(s) PO BID No Start Date 08/26/2018 Inactive atorvastatin 40 mg t ablet RxNorm: 822357 1 Tablet(s) PO QD No Start Date [...] heart failure ICD-10: I50.42 ICD-9: 428.42 08/13/2018 half-way (current) use of 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 ICD-10: Z79.01 ICD-9: [...] Item Item Code Result Date UA W/MICR 80322 UA Urine Appear Normal 02/06/2018 UA W/MICR 83710 UA Prote in 3+ 02/06/2018 UA W/MICR 68631 UA Hemog lobin Trace 02/06/2018 UA W/MICR 25833 UA Gluco se Negative 02/06/2018 UA W/MICR 55075 UA Keton es Negative 02/06/2018 UA W/MICR 90111 UA pH 5.5 02/06/2018 UA W/MICR 17560 U Spec G ravity 1.025 02/06/2018 UA W/MICR 53729 UA Bilir ubin Negative 02/06/2018 UA W/MICR 17272 UA Leuk Esteras Trace 02/06/2018 UA W/MICR 17018 UA Nitri te NEG 02/06/2018 UA W/MICR 85716 UA WBC/h pf 11-25 02/06/2018 UA W/MICR 15079 UA RBC h pf 0-5 02/06/2018 UA W/MICR 26699 UA Hyali ne Cast 16-25 02/06/2018 UA W/MICR 73760 UA Squam Epi Few 02/06/2018 Review of [...] Date URINALYSIS NONAUTO W /O SCOPE CPT-4: 73931 03/18/2019 URINALYSIS NONAUTO W /O SCOPE CPT-4: 84141 12/12/2018 URINE CULTURE/ COLON Y COUNT CPT-4: 92178 03/26/2018 URINALYSIS NONAUTO W /O SCOPE CPT-4: 80972 03/15/2018 INITIAL PREVENTIVE EXAM CPT-4: G0402 02/26/2018 URINALYSIS NONAUTO W /O SCOPE CPT-4: 71221 02/06/2018 URINE CULTURE/ COLON Y COUNT CPT-4: 14248 02/06/2018 UA W/MICR CPT-4: 70231 02/06/2018 CUR TOBACCO NON-USER CPT-4: G8457 01/30/2018 REPAIR BLADDER & VAGINA CPT-4: 36712 01/06/2017 REPAIR OF RECTOCELE CPT- 4: 66937 01/06/2017 BREAST SURGERY PROCE DURE CPT-4: 58096 Unknown LAPARO CHOLECYSTECTO MY/EXPLR CPT-4: 02006 Unknown HYSTERECTOMY/REVISE VAGINA CPT-4: 18097 Unknown Vital Signs Date Vital 03/18/2019 Blood [...] 1: 106/58 Code: 8480-6 BMI: 26.3 Code: 03928-0 Heart Rate 1: 72 bpm Height: 4'10" Respiratory Rate: 20 bpm SpO2: 97% Temperature: 36.6 (C ) / 97.8 (F) Weight: 128 lbs 07/10/2018 Blood Pressure 1: 122/70 Code: 8480-6 BMI: 28.6 Code: 09911-7 Heart Rate 1: 80 bpm Height: 4'10" Respiratory Rate: 20 bpm SpO2: 96% Temperature: 36.9 (C ) / 98.4 (F) Weight: 139 lbs 05/06/2018 Blood Pressure 1: 112/54 Code: 8480-6 BMI: 27.5 Code: 02572-0 Heart Rate 1: 80 bpm Height: 4'10" [...] 1: 146/80 Code: 8480-6 BMI: 30.0 Code: 55203-2 Heart Rate 1: 76 bpm Height: 4'10" Respiratory Rate: 20 bpm SpO2: 97% Temperature: 36.7 (C ) / 98.1 (F) Weight: 146 lbs 02/26/2018 Blood Pressure 1: 126/80 Code: 8480-6 BMI: 29.6 Code: 15491-1 Heart Rate 1: 80 bpm Height: 4'10" Respiratory Rate: 18 bpm SpO2: 96% Temperature: 37.0 (C ) / 98.6 (F) Weight: 144 lbs 01/30/2018 Blood Pressure 1: 120/78 Code: 8480-6 BMI: 29.6 Code: 12929-0 Heart Rate 1: 84 bpm Height: 4'10" [...] None well woman exam (40-65 years) Breast /Visualizer Complaints urinary frequency 02/26/2018 None well woman [...] Encounters Encounter Performer Loca tion Codes Date ([id number]) OFFICE/OUTPA TIENT VISIT EST Diagnosis: Acute kidney failure, unspecified[ICD10: N17.9] Farhat HAWKINS DO [facility] CPT-4: 58980 03/18/2019 ([id number]) OFFICE/OUTPA TIENT VISIT EST Diagnosis: Essential (primary) hypertension[ICD10: I10] Diagnosis: Chronic atrial fibrillation[ICD10: I48.2] Diagnosis: Mixed hyperlipidemia[ICD10: E78.2] Diagnosis: Other fatigue[ICD10: R53.83] Diagnosis: Abdominal distension (gaseous)[ICD10: R14.0] Farhat HAWKINS [employer] [facility] CPT-4: 00691 02/12/2019 ([id number]) OFFICE/OUTPA TIENT VISIT EST Diagnosis: Low back pain[ICD10: M54.5] Bhavna DAILY DO [facility] CPT-4: 95158 12/25/2018 ([id number]) OFFICE/OUTPA TIENT VISIT EST Diagnosis: Low back pain[ICD10: M54.5] Bhavna DAILY DO [facility] CPT-4: 57994 12/12/2018 ([id number]) OFFICE/OUTPA TIENT VISIT EST Diagnosis: Anemia, unspecified[ICD10: D64.9] Diagnosis: Chronic atrial fibrillation[ICD10: I48.2] Diagnosis: Other fatigue[ICD10: R53.83] Farhat DAILY [employer] [facility] CPT-4: 77852 10/10/2018 ([id number]) OFFICE/OUTPA TIENT VISIT EST Diagnosis: Acute on chronic combined systolic (congestive) and diastolic (congestive) heart failure[ICD10: I50.43] Diagnosis: Chronic atrial fibrillation[ICD10: I48.2] Farhat HAWKINS [employer] [facility] CPT-4: 91437 08/27/2018 ([id number]) OFFICE/OUTPA TIENT VISIT EST Diagnosis: Chronic atrial fibrillation[ICD10: I48.2] 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 CPT-4: 93622 07/10/2018 ([id number]) OFFICE/OUTPA TIENT VISIT EST Diagnosis: Chronic atrial fibrillation[ICD10: I48.2] Diagnosis: Acute on chronic combined systolic (congestive) and diastolic (congestive) heart failure[ICD10: I50.43] Diagnosis: Localized edema[ICD10: R60.0] Farhat DAILY [facility] CPT-4: 82757 05/06/2018 ([id number]) OFFICE/OUTPA TIENT VISIT EST Diagnosis: Generalized abdominal pain[ICD10: R10.84] Diagnosis: Pelvic and perineal pain[ICD10: R10.2] Diagnosis: Localized edema[ICD10: R60.0] Bhavna DAILY [facility] CPT-4: 94733 04/17/2018 ([id number]) OFFICE/OUTPA TIENT VISIT EST Diagnosis: Urinary tract infection, site not specified[ICD10: N39.0] Diagnosis: Other insomnia[ICD10: G47.09] Diagnosis: Other fatigue[ICD10: R53.83] Diagnosis: Other forms of dyspnea[ICD10: R06.09] Diagnosis: Chronic atrial fibrillation[ICD10: I48.2] Diagnosis: Restless legs syndrome[ICD10: G25.81] Farhat HAWKINS [facility] CPT-4: 16224 03/26/2018 ([id number]) OFFICE/OUTPA TIENT VISIT EST Diagnosis: Altered mental status, unspecified[ICD10: R41.82] Diagnosis: half-way (current) use of 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[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] Diagnosis: Hematuria, unspecified[ICD10: R31.9] Bhavna BARNETT [facility] CPT-4: 06110 03/15/2018 ([id number]) NURSE/OUTPAT IENT VISIT EST Diagnosis: Urinary tract infection, site not specified[ICD10: N39.0] Farhat DAILY 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 CPT-4: 75333 01/30/2018 Plan of Care Planned Activity Notes [...] I48.2 02/12/2019 Appointment: Farhat Daily WPtel: [phone] [facility] US FOLLOW UP 02/12/2019 Appointment: Bhavna Escalante [facility] GROU.PS [place] [id number] [place] Canceled per guillermina. sending for mri [...] : M54.5 12/25/2018 Appointment: Bhavna Escalante [address] [employer] [id number] ACUTE ILLNESS 12/25/2018 Care Plan: CT ABDOMEN W/O DYE LOINC : 63827-2 Pending 12/25/2018 Care Plan: CT PELVIS W/O DYE LOINC : 33622-5 Pending 12/25/2018 Visit Diagnosis Plan: Low back [...] ICD-10 : M54.5 12/12/2018 Appointment: Bhavna Escalante [address] [place], [place] [address] ACUTE ILLNESS 12/12/2018 Patient Education: cyclobenzaprine- Opti mizeRX Coupon [id number] https://www.[employer]/sampleSendia/resources/getResource/61/ya9060l9-m353-2b7n-m6 b2-38k5761r3222.pdf Completed 12/12/2018 Appointment: Bhavna Escalante [address] [place], [place] [address]a [facility] US CANCELED 12/06/2018 Visit Diagnosis Plan: Other fatigue Discussion: Increase activity--discussed 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 ICD-9 : 780.79 ICD-10 : R53.83 10/10/2018 Visit Diagnosis Plan: Chronic atrial fibrillation Discussion: Cardiology monitoring PT/INR Follow Up: 4 months ICD-9 : 427.31 ICD-10 : I48.2 10/10/2018 Visit Diagnosis Plan: Anemia, unspecified Discussion: Update CBC ICD-9 : 285.9 ICD-10 : D64.9 10/10/2018 Appointment: Farhat Daily WPtel: [phone] [facility] US FOLLOW UP 10/10/2018 Visit Diagnosis [...] : I48.2 08/27/2018 Appointment: Farhat Daily WPtel: [facility] [facility] 08/27/2018 Visit Diagnosis Plan: Chronic atrial fibrillation Discussion: Has fwup with Dr. 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 Discussion: Increase [...] : I50.42 08/13/2018 Appointment: Farhat Daily [facility]Ptel[facility] [phone] [facility] [facility] 08/13/2018 Patient Education: bumetanide- [employer] Coupon [phone] https://www.[employer]/wikifolio/resources/getResource/61/2xn14j42-7rf1-9x60-pm Completed 08/13/2018 Patient Education: levothyroxine- [employer] Coupon 56 [id number] https://www.[employer]/samplemd/resources/getResource/61/8486023z-3264-1z71-zc Completed 08/13/2018 Patient Education: warfarin- [employer] Coupon [id number] 1 https://www.[employer]/Wegomd/resources/getResource/61/09965166-dl52-70z5-2l Completed 08/13/2018 Patient Education: pantoprazole- Opt[employer] Coupon [phone] https://www.[employer]/samplemd/resources/getResource/61/j6915w00-03k4-76ny-2p Completed 08/13/2018 Patient Education: spironolactone- [employer] Coupon 5 [id number] https://www.[employer]/samplemd/resources/getResource/61/4ph903f8-o303-1411-he Completed 08/13/2018 Visit Diagnosis Plan: Anemia, unspecified [...] : I50.43 07/10/2018 Appointment: Farhat Daily WPtel: [facility] [address] FOLLOW UP 07/10/2018 Visit Diagnosis Plan: [...] : I48.2 05/06/2018 Appointment: Farhat Daily [facility]Ptel: [phone] [facility] [facility] FOLLOW UP 05/06/2018 Visit Diagnosis Plan: [...] : R10.2 04/17/2018 Appointment: Bhavna Escalante [address] ACUTE ILLNESS 04/17/2018 Patient Education: Patient Medication Summary Completed 04/17/2018 Care Plan: CT ABDOMEN W/O & W/DYE LOINC : 93042-0 Pending 04/17/2018 Care Plan: CT PELVIS W/O & W/DYE LOINC : 07279-8 Pending 04/17/2018 Appointment: Farhat Daily WPtel: [address] [place] [address] US CANCELED 04/10/2018 Visit Diagnosis Plan: Other [...] : N39.0 03/26/2018 Appointment: Farhat Daily WPtel: [facility] [address] ER Follow UP 03/26/2018 Patient Education: [...] ICD-10 : R41.82 03/15/2018 Appointment: Bhavna Escalante [address] [place] [address] ACUTE ILLNESS 03/15/2018 Patient Education: Patient Medication Summary Completed 03/15/2018 Visit Diagnosis Plan: Functional dyspepsia Discussion: Increase protonix to 40mg po BID Follow Up: 1 months ICD-9 : 536.8 ICD-10 : K30 02/26/2018 Visit Diagnosis Plan: Primary insomnia Discussion: Trial of elavil 10mg po q HS ICD-9 : 780.52 ICD-10 : F51.01 02/26/2018 Appointment: Farhat Daily WPtel: [address] [place] [address] WELCOME TO MEDICARE 02/26/2018 Patient Education: Patient Medication Summary Completed 02/26/2018 Referral: Song Noonan WPtel: [address] [place] [address] [place] Referral Initiated 02/19/2018 Appointment: Farhat Daily WPtel: [address] [place] [address] LAB 02/06/2018 Patient Education: Patient Medication Summary Completed 02/06/2018 Appointment: Farhat Daily WPtel: [phone] [facility] [id number] US CANCELED 02/01/2018 Care Plan: US EXAM [...] ICD-10 : N39.0 01/30/2018 Visit Diagnosis Plan: half-way (current ) use of 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 Discussion: instructed [...] : I10 01/30/2018 Appointment: [facility] [address] [facility] [facility] NEW [facility] 01/30/2018 Patient Education: Patient Medication Summary Completed 01/30/2018 Instructions No Instructions
--- OUTSIDE RECORDS SUMMARY | 2020-02-10 14:14 | XMS REPORT | CCD ---
Author Author Riana Escalante Organization [facility] Address [address] [place] [address] Phone Unavailable Care Team Providers Care Green Belt Name Role Phone PP Unavailable CCM Unavailable Summary Purpose Interface Exchange Insurance Providers Payer name Policy type / Coverage type Covered democrat ID Effective Begin Date Effective End Date WPS MEDICARE PART B [place] Medicare Part B [id number] Unknown Cigna Medicare Part B [id number] Unknown Family History Family History data not found Social History Social History Element Codes Description Effective Dates Tobacco history SNOMED CT: 987456300 Never smoker 01/30/[address]: 831049211 Never drinks alcohol 01/30/2018 Allergies, Adverse Reactions, [...] Codes Condition Status Onset Date Resolved Date Abdominal distension (gaseous) ICD-9: 787.3 ICD-10: R14.0 [...] ICD-9: 428.42 ICD-10: I50.42 Active 08/13/2018 Unknown rn long term care (current) use of 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 ICD-9: V58.61 ICD-10: [...] Condition Codes Effectiv e Dates Condition Status Abdominal distension (gaseous) ICD-9: 787.3 ICD-10: R14.0 [...] failure ICD-9: 428.42 ICD-10: I50.42 08/13/2018 Active rn long term care (current) use of 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 ICD-9: V58.61 ICD-10: [...] Fill Instructions bumetanide 1 mg tablet RxNorm: 559089 1 Tablet(s) PO BID (6am and 6pm) 02/13/2019 05/13/2019 Ac tive levothyroxine 25 mcg tablet RxNorm: 229137 1 Tablet(s) PO QD 02/04/2019 08/02/2019 Active warfarin 5 mg tablet RxNorm: 935008 1 TABLET(S) PO TUES, WED, THURS, SAT AND SUN AND 1/2 TABLET ON 02/04/2019 02/11/2019 Inactive Patient requests 90 days supply warfarin 5 mg tablet RxNorm: 156529 1 TABLET(S) PO TUES, WED, THURS, SAT AND SUN AND 1/2 TABLET ON 02/03/2019 02/03/2019 Inactive Patient requests 90 days supply temazepam 15 mg capsule RxNorm: 605359 TAKE 1 TO 2 CAPSULES BY MOUTH AT BEDTIME NEEDED FOR SLEEP 01/31/2019 No Stop Date Active levothyroxine 25 mcg tablet RxNorm: 466046 1 Tablet(s) PO QD 01/31/2019 02/03/2019 Inactive warfarin 5 mg tablet RxNorm: 484215 1 Tablet(s) PO Tues, Wed, Thurs, Sat and Sun and 1/2 tablet on 01/31/2019 02/02/2019 Inactive cyclobenzaprine 10 m g tablet RxNorm: 115397 1 Tablet(s) PO Q8H as needed 12/30/2018 No Stop Date Active losartan 25 mg tablet RxNorm: 391842 1 Tablet(s) PO QAM 12/27/2018 06/24/2019 Active Lidoderm 5 % topical patch RxNorm: 0583415 1 Application TOP Q1 2H and then off for 12 hours 12/25/2018 01/23/2019 Inactive Lidoderm 5 % topical patch RxNorm: 0174805 1 Application TOP Q1 2H and then off for 12 hours 12/25/2018 12/24/2018 Inactive cyclobenzaprine 5 mg tablet RxNorm: 471631 1 Tablet(s) PO Q8H as needed 12/12/2018 12/24/2018 In active spironolactone 25 mg tablet RxNorm: 767977 1 Tablet(s) PO BID 09/20/2018 06/16/2019 Active change in directions to BID pantoprazole 40 mg t ablet,delayed release RxNorm: 982282 1 Tablet(s) PO QD 09/20/2018 06/16/2019 Ac tive Patient requests 90 days supply spironolactone 25 mg tablet RxNorm: 528707 1 Tablet(s) PO BID 08/26/2018 09/19/2018 Inactive change in directions to BID pantoprazole 40 mg t ablet,delayed release RxNorm: 991972 1 Tablet(s) PO QD 08/15/2018 09/19/2018 In active Patient requests 90 days supply carvedilol 6.25 mg t ablet RxNorm: 413330 1 Tablet(s) PO BID 08/13/2018 02/08/2019 Inactive pantoprazole 40 mg t ablet,delayed release RxNorm: 315601 1 Tablet(s) PO QD 1 T ABLET(S) PO BID 08/13/2018 08/15/2018 Inactive Patient requests 90 days supply bumetanide 1 mg tablet RxNorm: 633244 1 Tablet(s) PO BID (6am and 6pm) 08/13/2018 02/08/2019 In active bumetanide 0.5 mg ta blet RxNorm: 809878 1 Tablet(s) PO QPM th ree days a week--Sunday, Sun, Sunday instead of 1mg dose in evening 08/13/2018 02/11/2019 Inactive levothyroxine 25 mcg tablet RxNorm: 042340 1 Tablet(s) PO QD 08/13/2018 01/30/2019 Inactive spironolactone 25 mg tablet RxNorm: 594378 1 Tablet(s) PO QD 08/13/2018 08/25/2018 Inactive losartan 25 mg tablet RxNorm: 050045 1 Tablet(s) PO QAM 08/13/2018 12/26/2018 Inactive warfarin 5 mg tablet RxNorm: 732500 1 Tablet(s) PO QD 08/13/2018 08/26/2018 Inactive pantoprazole 40 mg t ablet,delayed release RxNorm: 077052 1 TABLET(S) PO BID 08/02/2018 08/12/2018 In active Patient requests 90 days supply temazepam 15 mg capsule RxNorm: 746315 1-2 Capsule(s) PO QHS as needed for slee p 2018 01/31/2019 In active Restoril 15 mg capsule RxNorm: 361741 1-2 Capsule(s) PO QHS as needed for slee p 06/04/2018 08/12/2018 In active potassium chloride E R 10 mEq capsule,extended release RxNorm: 834213 2 CAPSULE(S) PO QD 05/07/2018 08/04/2018 Inactive Patient requests 90 days supply temazepam 22.5 mg ca psule RxNorm: 990400 1 Capsule(s) PO QHS a s needed for sleep 05/06/2018 08/12/2018 In active potassium chloride E R 10 mEq capsule,extended release RxNorm: 815054 2 Capsule(s) PO QD 05/06/2018 05/06/2018 Inactive ropinirole 1 mg tablet RxNorm: 692935 1 TABLET(S) PO QHS FOR RESTLESS LEGS 03/27/2018 04/25/2018 In active Patient requests 90 days supply ropinirole 1 mg tablet RxNorm: 636480 1 Tablet(s) PO QHS for restless legs 03/26/2018 03/26/2018 In active cefdinir 300 mg capsule RxNorm: 827678 1 Capsule(s) PO BID 03/26/2018 03/30/2018 Inactive temazepam 15 mg capsule RxNorm: 813932 1 Capsule(s) PO QHS as needed 03/20/2018 03/25/2018 In active Lunesta 3 mg tablet RxNorm: 176753 1 Tablet(s) PO QHS as needed for sleep 03/04/2018 03/19/2018 In active amitriptyline 10 mg tablet RxNorm: 145560 1 Tablet(s) PO QHS fo r sleep 02/26/2018 03/03/2018 In active escitalopram 20 mg t ablet RxNorm: 009157 1 Tablet(s) PO QHS 02/26/2018 08/12/2018 Inactive pantoprazole 40 mg t ablet,delayed release RxNorm: 361975 1 Tablet(s) PO BID 02/26/2018 04/26/2018 In active Coumadin 2.5 mg tablet RxNorm: 829323 1 Tablet(s) PO MWF 02/18/2018 07/22/2018 Inactive amiodarone 200 mg ta blet RxNorm: 082246 1 Tablet(s) PO QD No Start Date Active colestipol 1 gram ta blet RxNorm: 1983775 1 Tablet(s) PO BID No Start Date Active pantoprazole 40 mg t ablet,delayed release RxNorm: 866482 1 Tablet(s) PO QD No Start Date Active [employer] min with Iron tablet RxNorm: 1 Tablet(s) PO QD No Start Date Active warfarin 5 mg tablet RxNorm: 370770 1/2 Tablet(s) PO on Mon, Wed, Fri, Sun t hen 1 tablet on Sun, , Sat No Start Date Active pantoprazole 40 mg t ablet,delayed release RxNorm: 580506 1 Tablet(s) PO QD No Start Date 02/25/2018 Inactive bumetanide 1 mg tablet RxNorm: 619528 1 Tablet(s) PO BID (6am and 6pm) No Start Date 08/12/2018 Inactive potassium chloride E R 10 mEq tablet,extended release RxNorm: 153127 1 Tablet(s) PO QD No Start Date 02/11/2019 Inactive levothyroxine 25 mcg tablet RxNorm: 978567 1 Tablet(s) PO QD No Start Date 08/12/2018 Inactive spironolactone 25 mg tablet RxNorm: 672637 1 Tablet(s) PO QD No Start Date 08/12/2018 Inactive warfarin 5 mg tablet RxNorm: 478533 1 Tablet(s) PO MWF No Start Date 08/12/2018 Inactive warfarin 5 mg tablet RxNorm: 285361 1 Tablet(s) PO , Sun, Th, Sat and Sun then 1/2 tablet (2.5mg) on Mon & Fri No Start Date 08/12/2018 Inactive losartan 25 mg tablet RxNorm: 952116 1 Tablet(s) PO QAM No Start Date 08/12/2018 Inactive carvedilol 6.25 mg t ablet RxNorm: 063888 1 Tablet(s) PO BID No Start Date 08/12/2018 Inactive warfarin 2.5 mg tablet RxNorm: 286858 1 Tablet(s) PO es, , Sat and Sun No Start Date 08/12/2018 Inactive Coumadin 2.5 mg tablet RxNorm: 248075 Tablet(s) Mon Sun and Sun PO No Start Date 02/17/2018 Inactive potassium chloride E R 20 mEq tablet,extended release(part/cryst) RxNorm: 6017470 2 Tablet(s) PO QD No Start Date 05/05/2018 Inactive Coumadin 5 mg tablet RxNorm: 999926 Tablet(s) PO No Start Date 01/29/2018 Inactive mexiletine 200 mg ca psule RxNorm: 0528812 1 Capsule(s) PO BID No Start Date 03/25/2018 Inactive ferrous sulfate 325 mg (65 mg iron) tablet RxNorm: 119375 1 Tablet(s) PO QD No Start Date 07/22/2018 Inactive cyclobenzaprine 10 m g tablet RxNorm: 998626 1 Tablet(s) PO Q8H as needed No Start Date 12/29/2018 Inactive potassium chloride E R 10 mEq capsule,extended release RxNorm: 799231 2 Capsule(s) PO QD No Start Date 12/11/2018 Inactive Coumadin 5 mg tablet RxNorm: 590984 1 Tablet(s) PO , , Sat and Sun No Start Date 07/22/2018 Inactive Restoril 15 mg capsule RxNorm: 269329 1-2 Capsule(s) PO QHS as needed for slee p No Start Date 05/05/2018 Inactive metoprolol succinate ER 25 mg tablet,extended release 24 hr RxNorm: 680654 1 Tablet(s) PO QD No Start Date 08/12/2018 Inactive Entresto 24 mg-26 mg tablet RxNorm: 1110742 1 Tablet(s) PO BID No Start Date 08/12/2018 Inactive warfarin 5 mg tablet RxNorm: 562963 1 Tablet(s) PO , Sun, , Sat and Sun and 1/2 tablet on Sun/Fri No Start Date 01/30/2019 Inactive amiodarone 200 mg ta blet RxNorm: 007603 2 Tablet(s) PO BID No Start Date 10/09/2018 Inactive furosemide 20 mg tablet RxNorm: 934326 1 Tablet(s) PO QD No Start Date 08/12/2018 Inactive amiodarone 200 mg ta blet RxNorm: 600213 1 Tablet(s) PO BID No Start Date 08/26/2018 Inactive atorvastatin 40 mg t ablet RxNorm: 456876 1 Tablet(s) PO QD No Start Date 08/12/2018 Inactive Medication Administered No Medication Administered data Immunizations No Immunization data Assessments Condition Codes Effectiv e Dates Essential (primary) hypertension ICD -10: I10 ICD-9: [...] heart failure ICD-10: I50.42 ICD-9: 428.42 08/13/2018 rn long term care (current) use of 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 ICD-10: Z79.01 ICD-9: [...] For Visit Effective Dates Notes follow up 02/12/2019 sciatica 12/25/2018 back pain [...] Item Item Code Result Date UA W/MICR 17169 UA Urine Appear Normal 02/06/2018 UA W/MICR 33005 UA Prote in 3+ 02/06/2018 UA W/MICR 71274 UA Hemog lobin Trace 02/06/2018 UA W/MICR 28181 UA Gluco se Negative 02/06/2018 UA W/MICR 17149 UA [place] es Negative 02/06/2018 UA W/MICR 18232 UA pH 5.5 02/06/2018 UA W/MICR 88830 U Spec G ravity 1.025 02/06/2018 UA W/MICR 38853 UA Bilir ubin Negative 02/06/2018 UA W/MICR 63502 UA Leuk Esteras Trace 02/06/2018 UA W/MICR 01837 UA Nitri te NEG 02/06/2018 UA W/MICR 77709 UA WBC/h pf 11-25 02/06/2018 UA W/MICR 68416 UA RBC h pf 0-5 02/06/2018 UA W/MICR 79077 UA Hyali ne Cast 16-02/06/2018 UA W/MICR 61900 UA Squam Epi Few 02/06/2018 Review of [...] Constitutional fatigue 0 08/13/2018 Endocrine No goiter 11/2018 Endocrine No hyperglycemia 08/13/2018 Endocrine No hypoglycemia 08/13/2018 Endocrine hypothyroid Dermatologic No rash 11/2018 Dermatologic No scar 11/2018 Neurologic No dizziness 08/13/2018 Neurologic No headache 0 08/13/2018 Neurologic No neck pain 08/13/2018 Neurologic No syncope Psychiatric No anxiety 0 08/13/2018 Psychiatric No depression 08/13/2018 Constitutional fatigue 0 07/10/2018 Cardiovascular No edema 07/10/2018 Cardiovascular hypertension 07/10/2018 Cardiovascular arrhythmia 07/10/2018 Respiratory dyspnea 08/2018 Respiratory dyspnea on exertion 07/10/2018 Musculoskeletal [...] Date URINALYSIS NONAUTO W /O SCOPE CPT-4: 52938 12/12/2018 URINE CULTURE/ COLON Y COUNT CPT-4: 89018 03/26/2018 URINALYSIS NONAUTO W /O SCOPE CPT-4: 52952 03/15/2018 INITIAL PREVENTIVE EXAM CPT-4: G0402 02/26/2018 URINALYSIS NONAUTO W /O SCOPE CPT-4: 95184 02/06/2018 URINE CULTURE/ COLON Y COUNT CPT-4: 81749 02/06/2018 UA W/MICR CPT-4: 05891 02/06/2018 CUR TOBACCO NON-USER CPT-4: G8457 01/30/2018 REPAIR BLADDER & VAGINA CPT-4: 82325 01/06/2017 REPAIR OF RECTOCELE CPT- 4: 24931 01/06/2017 BREAST SURGERY PROCE DURE CPT-4: 68504 Unknown LAPARO CHOLECYSTECTO MY/EXPLR CPT-4: 76748 Unknown HYSTERECTOMY/REVISE VAGINA CPT-4: 14536 Unknown Vital Signs Date Vital 02/12/2019 Blood Pressure 1: 92/56 Code: 8480-6 [...] 1: 106/58 Code: 8480-6 BMI: 26.3 Code: 08227-8 Heart Rate 1: 72 bpm Height: 4'10" Respiratory Rate: 20 bpm SpO2: 97% Temperature: 36.6 (C ) / 97.8 (F) Weight: 128 lbs 07/10/2018 Blood Pressure 1: 122/70 Code: 8480-6 BMI: 28.6 Code: 82931-7 Heart Rate 1: 80 bpm Height: 4'10" Respiratory Rate: 20 bpm SpO2: 96% Temperature: 36.9 (C ) / 98.4 (F) Weight: 139 lbs 05/06/2018 Blood Pressure 1: 112/54 Code: 8480-6 BMI: 27.5 Code: 34326-0 Heart Rate 1: 80 bpm Height: 4'10" [...] 1: 146/80 Code: 8480-6 BMI: 30.0 Code: 73252-4 Heart Rate 1: 76 bpm Height: 4'10" Respiratory Rate: 20 bpm SpO2: 97% Temperature: 36.7 (C ) / 98.1 (F) Weight: 146 lbs 02/26/2018 Blood Pressure 1: 126/80 Code: 8480-6 BMI: 29.6 Code: 80406-7 Heart Rate 1: 80 bpm Height: 4'10" Respiratory Rate: 18 bpm SpO2: 96% Temperature: 37.0 (C ) / 98.6 (F) Weight: 144 lbs 01/30/2018 Blood Pressure 1: 120/78 Code: 8480-6 BMI: 29.6 Code: 08530-9 Heart Rate 1: 84 bpm Height: 4'10" Respiratory Rate: 20 bpm SpO2: 97% Temperature: 36.0 (C ) / 96.8 (F) Weight: 144 lbs Functional Status No Functional Status data History of Present Illness Symptom Name Status Resu lt Effective Date Notes Quality atrial fibrill ation 02/12/2019 None Quality [...] None well woman exam (40-65 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 geo munoz 2. arrhythmia Quality A Fib rillation 01/30/2018 None Advance Directives No Advance Directive data Encounters Encounter Performer Loca tion Codes Date ([id number]) OFFICE/OUTPA TIENT VISIT EST Diagnosis: Essential (primary) hypertension[ICD10: I10] Diagnosis: Chronic atrial fibrillation[ICD10: I48.2] Diagnosis: Mixed hyperlipidemia[ICD10: E78.2] Diagnosis: Other fatigue[ICD10: R53.83] Diagnosis: Abdominal distension (gaseous)[ICD10: R14.0] Farhatdior Daily [facility] [employer] CPT-4: 62830 02/12/2019 ([id number]) OFFICE/OUTPA TIENT VISIT EST Diagnosis: Low back pain[ICD10: M54.5] Bhavna GIBBONSLINE [employer]en [employer] CPT-4: 94638 12/25/2018 ([id number]) OFFICE/OUTPA TIENT VISIT EST Diagnosis: Low back pain[ICD10: M54.5] Bhavna GIBBONSLINE [employer] CPT-4: 26749 12/12/2018 ([id number]) OFFICE/OUTPA TIENT VISIT EST Diagnosis: Anemia, unspecified[ICD10: D64.9] Diagnosis: Chronic atrial fibrillation[ICD10: I48.2] Diagnosis: Other fatigue[ICD10: R53.83] Farhat DAILY [facility] CPT-4: 19267 10/10/2018 ([id number]) OFFICE/OUTPA TIENT VISIT EST Diagnosis: Acute on chronic combined systolic (congestive) and diastolic (congestive) heart failure[ICD10: I50.43] Diagnosis: Chronic atrial fibrillation[ICD10: I48.2] Farhat HAWKINS [facility] CPT-4: 47160 08/27/2018 ([id number]) OFFICE/OUTPA TIENT VISIT EST Diagnosis: Chronic atrial fibrillation[ICD10: I48.2] 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] Diagnosis: rn long term care (current) use of 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[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] Farhat DAILY [facility] CPT-4: 68904 08/13/2018 ([id number]) OFFICE/OUTPA TIENT VISIT EST Diagnosis: Acute on chronic combined systolic (congestive) and diastolic (congestive) heart failure[ICD10: I50.43] Diagnosis: Essential (primary) hypertension[ICD10: I10] Diagnosis: Anemia, unspecified[ICD10: D64.9] Farhat HAWKINS [facility] CPT-4: 76825 07/10/2018 ([id number]) OFFICE/OUTPA TIENT VISIT EST Diagnosis: Chronic atrial fibrillation[ICD10: I48.2] Diagnosis: Acute on chronic combined systolic (congestive) and diastolic (congestive) heart failure[ICD10: I50.43] Diagnosis: Localized edema[ICD10: R60.0] Farhat DAILY [facility] CPT-4: 08355 05/06/2018 ([id number]) OFFICE/OUTPA TIENT VISIT EST Diagnosis: Generalized abdominal pain[ICD10: R10.84] Diagnosis: Pelvic and perineal pain[ICD10: R10.2] Diagnosis: Localized edema[ICD10: R60.0] Bhavna DAILY [facility] CPT-4: 10001 04/17/2018 ([id number]) OFFICE/OUTPA TIENT VISIT EST Diagnosis: Urinary tract infection, site not specified[ICD10: N39.0] Diagnosis: Other insomnia[ICD10: G47.09] Diagnosis: Other fatigue[ICD10: R53.83] Diagnosis: Other forms of dyspnea[ICD10: R06.09] Diagnosis: Chronic atrial fibrillation[ICD10: I48.2] Diagnosis: Restless legs syndrome[ICD10: G25.81] Farhat HAWKINS [employer] CPT-4: 14462 03/26/2018 ([id number]) OFFICE/OUTPA TIENT VISIT EST Diagnosis: Altered mental status, unspecified[ICD10: R41.82] Diagnosis: rn long term care (current) use of 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[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] Diagnosis: Hematuria, unspecified[ICD10: R31.9] Bhavna BARNETT [employer] CPT-4: 88400 03/15/2018 ([id number]) NURSE/OUTPAT IENT VISIT EST Diagnosis: Urinary tract infection, site not specified[ICD10: N39.0] Farhat MCCARTHY [employer] CPT-4: 65809 02/06/2018 OFFICE/OUTPATIENT SIT NEW Diagnosis: rn long term care (current) use of 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[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] Diagnosis: Essential (primary) hypertension[ICD10: I10] Diagnosis: Mixed hyperlipidemia[ICD10: E78.2] Diagnosis: Other fatigue[ICD10: R53.83] Diagnosis: Cardiac arrhythmia, unspecified[ICD10: I49.9] Diagnosis: Generalized abdominal pain[ICD10: R10.84] Diagnosis: Urinary tract infection, site not specified[ICD10: N39.0] Diagnosis: Other insomnia[ICD10: G47.09] Bhavna DAILY [employer] CPT-4: 68796 01/30/2018 Plan of Care Planned Activity Notes C odes Status Date Visit Diagnosis Plan: Abdominal distension (gaseous) Discussion: Trial of Zenpep q AC ICD-9 : 787.3 ICD-10 : R14.0 02/12/2019 Visit Diagnosis Plan: Essential (primary) hypertension Discussion: Stable ICD-9 : 401.9 ICD-10 : I10 02/12/2019 Visit Diagnosis Plan: Chronic atrial fibrillation Discussion: Following routinely with Cardiology ICD-9 : 427.31 ICD-10 : I48.2 02/12/2019 Appointment: Farhat Daily WPtel: [phone] [id number] US FOLLOW UP 02/12/2019 Appointment: Bhavna Escalante [address] [facility] US Canceled per guillermina. sending for mri [...] : M54.5 12/25/2018 Appointment: Bhavna Escalante [address] [facility] ACUTE ILLNESS 12/25/2018 Care Plan: CT ABDOMEN W/O DYE LOINC : 72187-8 Pending 12/25/2018 Care Plan: CT PELVIS W/O DYE LOINC : 53798-4 Pending 12/25/2018 Visit Diagnosis Plan: Low back [...] : M54.5 12/12/2018 Appointment: [facility]havna Escalante [address] [facility] [place] [place] 12/12/2018 Patient Education: cyclobenzaprine- Opti mizeRX Coupon [id number] https://www.[employer]/samplemd/resources/getResource/61/eh9962p5-v133-1v7p-d3 b2-50m8545o3903.pdf Completed 12/12/2018 Appointment: Bhavna Escalante [address] [facility] US CANCELED 12/06/2018 Visit Diagnosis Plan: Other fatigue Discussion: Increase activity--discussed 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 ICD-9 : 780.79 ICD-10 : R53.83 10/10/2018 Visit Diagnosis Plan: Chronic atrial fibrillation Discussion: Cardiology monitoring PT/INR Follow Up: 4 months ICD-9 : 427.31 ICD-10 : I48.2 10/10/2018 Visit Diagnosis Plan: Anemia, unspecified Discussion: Update CBC ICD-9 : 285.9 ICD-10 : D64.9 10/10/2018 Appointment: Farhat Daily WPtel: [facility] US FOLLOW UP 10/10/2018 Visit Diagnosis Plan: [...] : I48.2 08/27/2018 Appointment: Farhat Daily WPtel: [facility] [facility] US FOLLOW UP 08/27/2018 Visit Diagnosis Plan: Chronic combined s ystolic (congestive) and diastolic (congestive) heart failure Discussion: Will try to decrease bumex to 0.5mg in evening dose on M, W, F Monitor weight and notify if increasing or worsening shortness of air Follow Up: 2 weeks ICD-9 : 428.42 ICD-10 : I50.42 08/13/2018 Visit Diagnosis Plan: Chronic atrial fibrillation Discussion: Has fwup with Dr. Cole and will with him possibly taking care of her for all her cardiology needs ICD-9 : 427.31 ICD-10 : I48.2 08/13/2018 Visit Diagnosis Plan: rn long term care (current ) use of 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 Discussion: Increase Coumadin to 5mg po daily and repeat PT/INR in 2 weeks ICD-9 : V58.61 ICD-10 : Z79.01 08/13/2018 Appointment: Farhat Daily [facility]Ptel[facility] [phone] [facility] [facility] 08/13/2018 Patient Education: bumetanide- [employer] Coupon [id number] https://www.[employer]/resources/getResource/61/7dz82a13-9vd5-9v13-cl Completed 08/13/2018 Patient Education: levothyroxine- [employer] Coupon [phone] [id number] https://www.[employer]/resources/getResource/61/5666574n-1051-9g05-pq Completed 08/13/2018 Patient Education: warfarin- [employer] Coupon [id number] 1 https://www.[employer]/resources/getResource/61/16669328-os40-09h4-7d Completed 08/13/2018 Patient Education: pantoprazole- Opt[employer] Coupon [phone] https://www.[employer]/resources/getResource/61/h6143x09-54o9-37dj-3s Completed 08/13/2018 Patient Education: spironolactone- Opt[employer] Coupon 5 [id number] https://www.[employer]/resources/getResource/61/8ne492r3-r765-4824-on Completed 08/13/2018 Visit Diagnosis Plan: Anemia, unspecified [...] : I50.43 07/10/2018 Appointment: Farhat Daily WPtel: [phone] [facility] [address] FOLLOW UP 07/10/2018 Visit Diagnosis Plan: [...] I48.2 05/06/2018 Appointment: Farhat Daily WPtel: [phone] [facility] US FOLLOW UP 05/06/2018 Visit Diagnosis Plan: [...] ICD-10 : R10.2 04/17/2018 Appointment: Bhavna Escalante [address] [place], [place] [address] ACUTE ILLNESS 04/17/2018 Patient Education: Patient Medication Summary Completed 04/17/2018 Care Plan: CT ABDOMEN W/O & W/DYE LOINC : 04392-3 Pending 04/17/2018 Care Plan: CT PELVIS W/O & W/DYE LOINC : 39496-7 Pending 04/17/2018 Appointment: Farhat Daily WPtel: [facility] US CANCELED 04/10/2018 Visit Diagnosis Plan: Other [...] : N39.0 03/26/2018 Appointment: Farhat Daily WPtel: [phone] [facility] ER Follow UP 03/26/2018 Patient Education: Patient [...] ICD-10 : R41.82 03/15/2018 Appointment: Bhavna Escalante [address] [place], [place] [address] ACUTE ILLNESS 03/15/2018 Patient Education: Patient Medication Summary Completed 03/15/2018 Visit Diagnosis Plan: Functional dyspepsia Discussion: Increase protonix to 40mg po BID Follow Up: 1 months ICD-9 : 536.8 ICD-10 : K30 02/26/2018 Visit Diagnosis Plan: Primary insomnia Discussion: Trial of elavil 10mg po q HS ICD-9 : 780.52 ICD-10 : F51.01 02/26/2018 Appointment: Farhat Daily WPtel: [address] [place], [place] [id number] WELCOME TO MEDICARE 02/26/2018 Patient Education: Patient Medication Summary Completed 02/26/2018 Referral: Song Noonan WPtel: [phone] [facility] US Referral Initiated 02/19/2018 Appointment: Farhat Daily WPtel: [phone] [facility] US LAB 02/06/2018 Patient Education: Patient Medication Summary Completed 02/06/2018 Appointment: Farhat Daily WPtel: [facility] [facility] US CANCELED 02/01/2018 Care Plan: US EXAM [...] ICD-10 : N39.0 01/30/2018 Visit Diagnosis Plan: Essential (primary) hypertension Discussion: stable. patient needs to follow up within a month for annual visit. ICD-9 : 401.9 ICD-10 : I10 01/30/2018 Visit Diagnosis Plan: assisted (current ) 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 informed her to take tylenol or remaining hydrocodone from surgery if pain develops. ICD-9 : V58.61 ICD-10 : Z79.01 01/30/2018 Appointment: Bhavna Escalante [address] [place], [place] [address] NEW PATIENT 01/30/2018 Patient Education: Patient Medication Summary Completed 01/30/2018 Instructions No Instructions
--- OUTSIDE RECORDS SUMMARY | 2020-02-10 14:15 | XMS REPORT | CCD ---
Author Author Riana Escalante Organization [facility] Address [address] [place] [address] Phone Unavailable Care Team Providers Care Countersinker Balance Screw Hole Name Role Phone PP Unavailable CCM Unavailable Summary Purpose Interface Exchange Insurance Providers Payer name Policy type / Coverage type Covered green party ID Effective Begin Date Effective End Date WPS MEDICARE PART B [place] Medicare Part B [id number] Unknown Cigna Medicare Part B 80 [id number] Unknown Family History Family History data not found Social History Social History Element Codes Description Effective Dates Tobacco history SNOMED CT: 754331007 Never smoker 01/30/[address]: 086518832 Never drinks alcohol 01/30/2018 Allergies, Adverse Reactions, [...] ICD-9: 428.42 ICD-10: I50.42 Active 08/13/2018 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 ICD-9: V58.61 ICD-10: [...] failure ICD-9: 428.42 ICD-10: I50.42 08/13/2018 Active 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 ICD-9: V58.61 ICD-10: [...] Date Stop Date Sta tus Fill Instructions levothyroxine 25 mcg tablet RxNorm: 209323 1 Tablet(s) PO QD 02/04/2019 08/02/2019 Active warfarin 5 mg tablet RxNorm: 582411 1 TABLET(S) PO TUES, WED, THURS, SAT AND SUN AND 1/2 TABLET ON 02/04/2019 02/11/2019 Inactive Patient requests 90 days supply warfarin 5 mg tablet RxNorm: 439102 1 TABLET(S) PO TUES, WED, THURS, SAT AND SUN AND 1/2 TABLET ON 02/03/2019 02/03/2019 Inactive Patient requests 90 days supply temazepam 15 mg capsule RxNorm: 418636 TAKE 1 TO 2 CAPSULES BY MOUTH AT BEDTIME NEEDED FOR SLEEP 01/31/2019 No Stop Date Active levothyroxine 25 mcg tablet RxNorm: 482987 1 Tablet(s) PO QD 01/31/2019 02/03/2019 Inactive warfarin 5 mg tablet RxNorm: 131721 1 Tablet(s) PO Tues, Wed, Thurs, Sat and Sun and 1/2 tablet on 01/31/2019 02/02/2019 Inactive cyclobenzaprine 10 m g tablet RxNorm: 017803 1 Tablet(s) PO Q8H as needed 12/30/2018 No Stop Date Active losartan 25 mg tablet RxNorm: 353092 1 Tablet(s) PO QAM 12/27/2018 06/24/2019 Active Lidoderm 5 % topical patch RxNorm: 3607346 1 Application TOP Q1 2H and then off for 12 hours 12/25/2018 01/23/2019 Inactive Lidoderm 5 % topical patch RxNorm: 4237240 1 Application TOP Q1 2H and then off for 12 hours 12/25/2018 12/24/2018 Inactive cyclobenzaprine 5 mg tablet RxNorm: 176056 1 Tablet(s) PO Q8H as needed 12/12/2018 12/24/2018 In active spironolactone 25 mg tablet RxNorm: 075254 1 Tablet(s) PO BID 09/20/2018 06/16/2019 Active change in directions to BID pantoprazole 40 mg t ablet,delayed release RxNorm: 010894 1 Tablet(s) PO QD 09/20/2018 06/16/2019 Ac tive Patient requests 90 days supply spironolactone 25 mg tablet RxNorm: 892406 1 Tablet(s) PO BID 08/26/2018 09/19/2018 Inactive change in directions to BID pantoprazole 40 mg t ablet,delayed release RxNorm: 580126 1 Tablet(s) PO QD 08/15/2018 09/19/2018 In active Patient requests 90 days supply bumetanide 1 mg tablet RxNorm: 017094 1 Tablet(s) PO BID (6am and 6pm) 08/13/2018 02/08/2019 In active carvedilol 6.25 mg t ablet RxNorm: 037946 1 Tablet(s) PO BID 08/13/2018 02/08/2019 Inactive pantoprazole 40 mg t ablet,delayed release RxNorm: 888564 1 Tablet(s) PO QD 1 T ABLET(S) PO BID 08/13/2018 08/15/2018 Inactive Patient requests 90 days supply bumetanide 0.5 mg ta blet RxNorm: 809833 1 Tablet(s) PO QPM th ree days a week--Sunday, Sun, Sunday instead of 1mg dose in evening 08/13/2018 02/11/2019 Inactive levothyroxine 25 mcg tablet RxNorm: 979687 1 Tablet(s) PO QD 08/13/2018 01/30/2019 Inactive spironolactone 25 mg tablet RxNorm: 806681 1 Tablet(s) PO QD 08/13/2018 08/25/2018 Inactive losartan 25 mg tablet RxNorm: 334430 1 Tablet(s) PO QAM 08/13/2018 12/26/2018 Inactive warfarin 5 mg tablet RxNorm: 732199 1 Tablet(s) PO QD 08/13/2018 08/26/2018 Inactive pantoprazole 40 mg t ablet,delayed release RxNorm: 258547 1 TABLET(S) PO BID 08/02/2018 08/12/2018 In active Patient requests 90 days supply temazepam 15 mg capsule RxNorm: 011758 1-2 Capsule(s) PO QHS as needed for slee p 2018 01/31/2019 In active Restoril 15 mg capsule RxNorm: 138604 1-2 Capsule(s) PO QHS as needed for slee p 06/04/2018 08/12/2018 In active potassium chloride E R 10 mEq capsule,extended release RxNorm: 198491 2 CAPSULE(S) PO QD 05/07/2018 08/04/2018 Inactive Patient requests 90 days supply temazepam 22.5 mg ca psule RxNorm: 269637 1 Capsule(s) PO QHS a s needed for sleep 05/06/2018 08/12/2018 In active potassium chloride E R 10 mEq capsule,extended release RxNorm: 418789 2 Capsule(s) PO QD 05/06/2018 05/06/2018 Inactive ropinirole 1 mg tablet RxNorm: 650436 1 TABLET(S) PO QHS FOR RESTLESS LEGS 03/27/2018 04/25/2018 In active Patient requests 90 days supply ropinirole 1 mg tablet RxNorm: 010194 1 Tablet(s) PO QHS for restless legs 03/26/2018 03/26/2018 In active cefdinir 300 mg capsule RxNorm: 807923 1 Capsule(s) PO BID 03/26/2018 03/30/2018 Inactive temazepam 15 mg capsule RxNorm: 875531 1 Capsule(s) PO QHS as needed 03/20/2018 03/25/2018 In active Lunesta 3 mg tablet RxNorm: 912272 1 Tablet(s) PO QHS as needed for sleep 03/04/2018 03/19/2018 In active amitriptyline 10 mg tablet RxNorm: 249995 1 Tablet(s) PO QHS fo r sleep 02/26/2018 03/03/2018 In active escitalopram 20 mg t ablet RxNorm: 506412 1 Tablet(s) PO QHS 02/26/2018 08/12/2018 Inactive pantoprazole 40 mg t ablet,delayed release RxNorm: 560890 1 Tablet(s) PO BID 02/26/2018 04/26/2018 In active Coumadin 2.5 mg tablet RxNorm: 116973 1 Tablet(s) PO MWF 02/18/2018 07/22/2018 Inactive amiodarone 200 mg ta blet RxNorm: 377906 1 Tablet(s) PO QD No Start Date Active colestipol 1 gram ta blet RxNorm: 0627280 1 Tablet(s) PO BID No Start Date Active pantoprazole 40 mg t ablet,delayed release RxNorm: 482835 1 Tablet(s) PO QD No Start Date Active [employer] min with Iron tablet RxNorm: 1 Tablet(s) PO QD No Start Date Active warfarin 5 mg tablet RxNorm: 031786 1/2 Tablet(s) PO on Sun, Sun, Sun, Sun t hen 1 tablet on Sun, , Sat No Start Date Active pantoprazole 40 mg t ablet,delayed release RxNorm: 146079 1 Tablet(s) PO QD No Start Date 02/25/2018 Inactive bumetanide 1 mg tablet RxNorm: 557642 1 Tablet(s) PO BID (6am and 6pm) No Start Date 08/12/2018 Inactive potassium chloride E R 10 mEq tablet,extended release RxNorm: 925494 1 Tablet(s) PO QD No Start Date 02/11/2019 Inactive levothyroxine 25 mcg tablet RxNorm: 419005 1 Tablet(s) PO QD No Start Date 08/12/2018 Inactive spironolactone 25 mg tablet RxNorm: 906270 1 Tablet(s) PO QD No Start Date 08/12/2018 Inactive warfarin 5 mg tablet RxNorm: 006467 1 Tablet(s) PO MWF No Start Date 08/12/2018 Inactive warfarin 5 mg tablet RxNorm: 891178 1 Tablet(s) PO , Sun, , Sat and Sun then 1/2 tablet (2.5mg) on Sun & Sun No Start Date 08/12/2018 Inactive losartan 25 mg tablet RxNorm: 774693 1 Tablet(s) PO QAM No Start Date 08/12/2018 Inactive carvedilol 6.25 mg t ablet RxNorm: 990161 1 Tablet(s) PO BID No Start Date 08/12/2018 Inactive warfarin 2.5 mg tablet RxNorm: 900303 1 Tablet(s) PO Tues, Thurs, Sat and Sun No Start Date 08/12/2018 Inactive Coumadin 2.5 mg tablet RxNorm: 230636 Tablet(s) Mon Sun and Sun PO No Start Date 02/17/2018 Inactive potassium chloride E R 20 mEq tablet,extended release(part/cryst) RxNorm: 9118266 2 Tablet(s) PO QD No Start Date 05/05/2018 Inactive Coumadin 5 mg tablet RxNorm: 993126 Tablet(s) PO No Start Date 01/29/2018 Inactive mexiletine 200 mg ca psule RxNorm: 7428601 1 Capsule(s) PO BID No Start Date 03/25/2018 Inactive ferrous sulfate 325 mg (65 mg iron) tablet RxNorm: 567405 1 Tablet(s) PO QD No Start Date 07/22/2018 Inactive cyclobenzaprine 10 m g tablet RxNorm: 708426 1 Tablet(s) PO Q8H as needed No Start Date 12/29/2018 Inactive potassium chloride E R 10 mEq capsule,extended release RxNorm: 751891 2 Capsule(s) PO QD No Start Date 12/11/2018 Inactive Coumadin 5 mg tablet RxNorm: 068552 1 Tablet(s) PO Tues, Thurs, Sat and Sun No Start Date 07/22/2018 Inactive Restoril 15 mg capsule RxNorm: 492573 1-2 Capsule(s) PO QHS as needed for slee p No Start Date 05/05/2018 Inactive metoprolol succinate ER 25 mg tablet,extended release 24 hr RxNorm: 462612 1 Tablet(s) PO QD No Start Date 08/12/2018 Inactive Entresto 24 mg-26 mg tablet RxNorm: 5772730 1 Tablet(s) PO BID No Start Date 08/12/2018 Inactive warfarin 5 mg tablet RxNorm: 193264 1 Tablet(s) PO Tu, Wed, Thurs, Sat and Sun and 1/2 tablet on Sun/Sun No Start Date 01/30/2019 Inactive amiodarone 200 mg ta blet RxNorm: 012456 2 Tablet(s) PO BID No Start Date 10/09/2018 Inactive furosemide 20 mg tablet RxNorm: 013926 1 Tablet(s) PO QD No Start Date 08/12/2018 Inactive amiodarone 200 mg ta blet RxNorm: 545411 1 Tablet(s) PO BID No Start Date 08/26/2018 Inactive atorvastatin 40 mg t ablet RxNorm: 341543 1 Tablet(s) PO QD No Start Date [...] heart failure ICD-10: I50.42 ICD-9: 428.42 08/13/2018 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 ICD-10: Z79.01 ICD-9: [...] Item Item Code Result Date UA W/MICR 51370 UA Urine Appear Normal 02/06/2018 UA W/MICR 84951 UA Prote in 3+ 02/06/2018 UA W/MICR 24013 UA Hemog lobin Trace 02/06/2018 UA W/MICR 41618 UA Gluco se Negative 02/06/2018 UA W/MICR 35072 UA [place] es Negative 02/06/2018 UA W/MICR 04349 UA pH 5.5 02/06/2018 UA W/MICR 58449 U Spec G ravity 1.025 02/06/2018 UA W/MICR 58987 UA Bilir ubin Negative 02/06/2018 UA W/MICR 08102 UA Leuk Esteras Trace 02/06/2018 UA W/MICR 49574 UA Nitri te NEG 02/06/2018 UA W/MICR 04350 UA WBC/h pf 11-25 02/06/2018 UA W/MICR 79589 UA RBC h pf 0-5 02/06/2018 UA W/MICR 93947 UA Hyali ne Cast 16-25 02/06/2018 UA W/MICR 18476 UA Squam Epi Few 02/06/2018 Review of [...] Date URINALYSIS NONAUTO W /O SCOPE CPT-4: 88130 12/12/2018 URINE CULTURE/ COLON Y COUNT CPT-4: 57257 03/26/2018 URINALYSIS NONAUTO W /O SCOPE CPT-4: 76297 03/15/2018 INITIAL PREVENTIVE EXAM CPT-4: G0402 02/26/2018 URINALYSIS NONAUTO W /O SCOPE CPT-4: 98354 02/06/2018 URINE CULTURE/ COLON Y COUNT CPT-4: 01173 02/06/2018 UA W/MICR CPT-4: 85574 02/06/2018 CUR TOBACCO NON-USER CPT-4: G8457 01/30/2018 REPAIR BLADDER & VAGINA CPT-4: 73008 01/06/2017 REPAIR OF RECTOCELE CPT- 4: 35294 01/06/2017 BREAST SURGERY PROCE DURE CPT-4: 16311 Unknown LAPARO CHOLECYSTECTO MY/EXPLR CPT-4: 78221 Unknown HYSTERECTOMY/REVISE VAGINA CPT-4: 50336 Unknown Vital Signs Date Vital 02/12/2019 Blood [...] 1: 106/58 Code: 8480-6 BMI: 26.3 Code: 04675-2 Heart Rate 1: 72 bpm Height: 4'10" Respiratory Rate: 20 bpm SpO2: 97% Temperature: 36.6 (C ) / 97.8 (F) Weight: 128 lbs 07/10/2018 Blood Pressure 1: 122/70 Code: 8480-6 BMI: 28.6 Code: 34895-8 Heart Rate 1: 80 bpm Height: 4'10" Respiratory Rate: 20 bpm SpO2: 96% Temperature: 36.9 (C ) / 98.4 (F) Weight: 139 lbs 05/06/2018 Blood Pressure 1: 112/54 Code: 8480-6 BMI: 27.5 Code: 47494-9 Heart Rate 1: 80 bpm Height: 4'10" [...] 1: 146/80 Code: 8480-6 BMI: 30.0 Code: 08766-2 Heart Rate 1: 76 bpm Height: 4'10" Respiratory Rate: 20 bpm SpO2: 97% Temperature: 36.7 (C ) / 98.1 (F) Weight: 146 lbs 02/26/2018 Blood Pressure 1: 126/80 Code: 8480-6 BMI: 29.6 Code: 06916-4 Heart Rate 1: 80 bpm Height: 4'10" Respiratory Rate: 18 bpm SpO2: 96% Temperature: 37.0 (C ) / 98.6 (F) Weight: 144 lbs 01/30/2018 Blood Pressure 1: 120/78 Code: 8480-6 BMI: 29.6 Code: 22285-2 Heart Rate 1: 84 bpm Height: 4'10" [...] None well woman exam (40-65 years) Breast /Packer Insulation Complaints urinary frequency 02/26/2018 None well woman [...] ic 01/30/[address] cole feb 2. arrhythmia Quality A Fib rillation 01/30/2018 None Advance Directives No Advance Directive data Encounters Encounter Performer Loca tion Codes Date ([id number]) OFFICE/OUTPA TIENT VISIT EST Diagnosis: Essential (primary) hypertension[ICD10: I10] Diagnosis: Chronic atrial fibrillation[ICD10: I48.2] Diagnosis: Mixed hyperlipidemia[ICD10: E78.2] Diagnosis: Other fatigue[ICD10: R53.83] Diagnosis: Abdominal distension (gaseous)[ICD10: R14.0] Farhat DOUGHERTY [employer] CPT-4: 79621 02/12/2019 ([id number]) OFFICE/OUTPA TIENT VISIT EST Diagnosis: Low back pain[ICD10: M54.5] Bhavna Brarosman DOUGHERTY [employer] CPT-4: 38406 12/25/2018 ([id number]) OFFICE/OUTPA TIENT VISIT EST Diagnosis: Low back pain[ICD10: M54.5] Bhavna Garykhalif DOUGHERTY [employer] CPT-4: 14692 12/12/2018 ([id number]) OFFICE/OUTPA TIENT VISIT EST Diagnosis: Anemia, unspecified[ICD10: D64.9] Diagnosis: Chronic atrial fibrillation[ICD10: I48.2] Diagnosis: Other fatigue[ICD10: R53.83] Farhat DOUGHERTY [employer] CPT-4: 65568 10/10/2018 ([id number]) OFFICE/OUTPA TIENT VISIT EST Diagnosis: Acute on chronic combined systolic (congestive) and diastolic (congestive) heart failure[ICD10: I50.43] Diagnosis: Chronic atrial fibrillation[ICD10: I48.2] Farhat HAWKINS [facility] CPT-4: 66394 08/27/2018 ([id number]) OFFICE/OUTPA TIENT VISIT EST Diagnosis: Chronic atrial fibrillation[ICD10: I48.2] 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] Diagnosis: FDC (current) use of 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[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] Farhat DAILY [facility] CPT-4: 32672 08/13/2018 ([id number]) OFFICE/OUTPA TIENT VISIT EST Diagnosis: Acute on chronic combined systolic (congestive) and diastolic (congestive) heart failure[ICD10: I50.43] Diagnosis: Essential (primary) hypertension[ICD10: I10] Diagnosis: Anemia, unspecified[ICD10: D64.9] Farhat HAWKINS [facility] CPT-4: 20654 07/10/2018 ([id number]) OFFICE/OUTPA TIENT VISIT EST Diagnosis: Chronic atrial fibrillation[ICD10: I48.2] Diagnosis: Acute on chronic combined systolic (congestive) and diastolic (congestive) heart failure[ICD10: I50.43] Diagnosis: Localized edema[ICD10: R60.0] Farhat DAILY [facility] CPT-4: 19987 05/06/2018 ([id number]) OFFICE/OUTPA TIENT VISIT EST Diagnosis: Generalized abdominal pain[ICD10: R10.84] Diagnosis: Pelvic and perineal pain[ICD10: R10.2] Diagnosis: Localized edema[ICD10: R60.0] Bhavna DAILY [facility] CPT-4: 09631 04/17/2018 ([id number]) OFFICE/OUTPA TIENT VISIT EST Diagnosis: Urinary tract infection, site not specified[ICD10: N39.0] Diagnosis: Other insomnia[ICD10: G47.09] Diagnosis: Other fatigue[ICD10: R53.83] Diagnosis: Other forms of dyspnea[ICD10: R06.09] Diagnosis: Chronic atrial fibrillation[ICD10: I48.2] Diagnosis: Restless legs syndrome[ICD10: G25.81] Farhat HAWKINS [employer] CPT-4: 81443 03/26/2018 ([id number]) OFFICE/OUTPA TIENT VISIT EST Diagnosis: Altered mental status, unspecified[ICD10: R41.82] 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[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] Diagnosis: Hematuria, unspecified[ICD10: R31.9] Bhavna BARNETT [facility] CPT-4: 54849 03/15/2018 ([id number]) NURSE/OUTPAT IENT VISIT EST Diagnosis: Urinary tract infection, site not specified[ICD10: N39.0] Farhat DAILY [facility] CPT-4: 45445 02/06/2018 OFFICE/OUTPATIENT SIT NEW Diagnosis: FDC (current) use of 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[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] Diagnosis: Essential (primary) hypertension[ICD10: I10] Diagnosis: Mixed hyperlipidemia[ICD10: E78.2] Diagnosis: Other fatigue[ICD10: R53.83] Diagnosis: Cardiac arrhythmia, unspecified[ICD10: I49.9] Diagnosis: Generalized abdominal pain[ICD10: R10.84] Diagnosis: Urinary tract infection, site not specified[ICD10: N39.0] Diagnosis: Other insomnia[ICD10: G47.09] Bhavna DAILY [employer] CPT-4: 07867 01/30/2018 Plan of Care Planned Activity Notes C odes Status Date Visit Diagnosis Plan: Chronic atrial fibrillation Discussion: Following routinely with Cardiology ICD-9 : 427.31 ICD-10 : I48.2 02/12/2019 Visit Diagnosis Plan: Abdominal distension (gaseous) Discussion: Trial of Zenpep q AC ICD-9 : 787.3 ICD-10 : R14.0 02/12/2019 Visit Diagnosis Plan: Essential (primary) hypertension Discussion: Stable ICD-9 : 401.9 ICD-10 : I10 02/12/2019 Appointment: [facility] [address] [facility] [place] [place] Canceled per guillermina. sending for mri [...] : 724.2 ICD-10 : M54.5 12/25/2018 Appointment: [facility]havna [facility] [address] [facility] [place] [place] ACUTE ILLNESS 12/25/2018 Care Plan: CT ABDOMEN W/O DYE LOINC : 21904-2 Pending 12/25/2018 Care Plan: CT PELVIS W/O DYE LOINC : 58765-8 Pending 12/25/2018 Visit Diagnosis Plan: Low back [...] : 724.2 ICD-10 : M54.5 12/12/2018 Appointment: AvaBhavna brewer [address] [place], [place] [id number] ACUTE ILLNESS 12/12/2018 Patient Education: cyclobenzaprine- Opti mizeRX Coupon [id number] https://www.[employer]/samplemd/resources/getResource/61/jq9301z9-p289-4h7b-s9 b2-01r8479g2543.pdf Completed 12/12/2018 Appointment: AvaBhavna brewer [address] [place], [place] [address] [place] CANCELED 12/06/2018 Visit Diagnosis Plan: Other fatigue Discussion: Increase activity--discussed 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 ICD-9 : 780.79 ICD-10 : R53.83 10/10/2018 Visit Diagnosis Plan: Anemia, unspecified Discussion: Update CBC ICD-9 : 285.9 ICD-10 : D64.9 10/10/2018 Visit Diagnosis Plan: Chronic atrial fibrillation Discussion: Cardiology monitoring PT/INR Follow Up: 4 months ICD-9 : 427.31 ICD-10 : I48.2 10/10/2018 Appointment: Farhat Dailytel: [address] [place], [place] [phone] [place] FOLLOW UP 10/10/2018 Visit Diagnosis Plan: [...] 427.31 ICD-10 : I48.2 08/27/2018 Appointment: Farhat Dailytel: [address] [place] [address] US FOLLOW UP 08/27/2018 Visit Diagnosis Plan: [...] Diagnosis Plan: 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 ) 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 Discussion: Increase Coumadin to 5mg po daily and repeat PT/INR in 2 weeks ICD-9 : V58.61 ICD-10 : Z79.01 08/13/2018 Appointment: Farhat Dailytel: [address] [place], [place] [phone] [place] FOLLOW UP 08/13/2018 Patient Education: bumetanide- Opt[employer] Coupon [id number] https://www.[employer]/samplemd/resources/getResource/61/8zn71e98-3wz0-4i82-wf Completed 08/13/2018 Patient Education: levothyroxine- Opt[employer] Coupon 56 658958 https://www.SEA/[employer]/resources/getResource/61/9358764k-7745-8u00-yx Completed 08/13/2018 Patient Education: warfarin- [employer] Coupon [id number] 1 https://www.SEA/[employer]/resources/getResource/61/65486943-qf78-68y0-5t Completed 08/13/2018 Patient Education: pantoprazole- Optimize[employer] Coupon 568 23169 https://www.[employer]/resources/HydrelisResMolecular Sensingce/61/n9144y76-44j7-49oa-9f Completed 08/13/2018 Patient Education: spironolactone- Optimize[employer] Coupon 5 0144255 https://www.[employer]/resources/getResource/61/5up088y2-w932-9480-gh Completed 08/13/2018 Visit Diagnosis Plan: Anemia, unspecified [...] I50.43 07/10/2018 Appointment: [facility] [phone] [facility] FOLLOW UP 07/10/2018 Visit Diagnosis Plan: [...] : I48.2 05/06/2018 Appointment: Farhat Daily WPtel: [address] [place], [place] [phone] [place] FOLLOW UP 05/06/2018 Visit Diagnosis Plan: [...] ICD-10 : R60.0 04/17/2018 Appointment: Bhavna Escalante [address] [place], [place] [id number] ACUTE ILLNESS 04/17/2018 Patient Education: Patient Medication Summary Completed 04/17/2018 Care Plan: CT ABDOMEN W/O & W/DYE LOINC : 07229-0 Pending 04/17/2018 Care Plan: CT PELVIS W/O & W/DYE LOINC : 64246-5 Pending 04/17/2018 Appointment: Farhat Daily WPtel: [address] [place], [place] [id number] [place] CANCELED 04/10/2018 Visit Diagnosis Plan: Other forms of dyspnea Discussion: Discussed starting pulmonary rehab vs cardiac rehab Follow Up: 1 months ICD-9 : 786.09 ICD-10 : R06.09 03/26/2018 Visit Diagnosis Plan: Urinary tract infe [...] R53.83 03/26/2018 Appointment: Farhat [facility] [phone] [facility] [facility] Follow UP 03/26/2018 Patient Education: [...] R41.82 03/15/2018 Visit Diagnosis Plan: Hematuria, unspecified Discussion: urine was obtained in office but only a few drops could be removed from specimen cup which showed large amount of blood and leukocytes. culture was not able to be obtained. ICD-9 : 599.70 ICD-10 : R31.9 03/15/2018 Appointment: Bhavna Escalante [address] [place], [place] [address] ACUTE ILLNESS 03/15/2018 Patient Education: Patient Medication Summary Completed 03/15/2018 Visit Diagnosis Plan: Primary insomnia Discussion: Trial of elavil 10mg po q HS ICD-9 : 780.52 ICD-10 : F51.01 02/26/2018 Visit Diagnosis Plan: Functional dyspepsia Discussion: Increase protonix to 40mg po BID Follow Up: 1 months ICD-9 : 536.8 ICD-10 : K30 02/26/2018 Appointment: Farhat Daily WPtel: [address] [place], [place] [phone] [place] WELCOME TO MEDICARE 02/26/2018 Patient Education: Patient Medication Summary Completed 02/26/2018 Referral: Song Noonan WPtel: [phone] [facility] [place] Referral Initiated 02/19/2018 Appointment: Farhat [facility] [phone] [facility] [facility] 02/06/2018 Patient Education: Patient Medication Summary Completed 02/06/2018 App[facility]ment: Farhat [facility] [phone] [facility] [place] CANC[facility]ED 02/01/2018 Care Plan: US EXAM ABDOM COMPLETE liver Pending 01/31/2018 Visit Diagnosis Plan: Essential (primary) [...] ICD-10 : R53.83 01/30/2018 Visit Diagnosis Plan: 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 informed her to take tylenol or remaining hydrocodone from surgery if pain develops. ICD-9 : V58.61 ICD-10 : Z79.01 01/30/2018 Visit Diagnosis Plan: Urinary tract infe [...] ICD-10 : G47.09 01/30/2018 Appointment: Bhavna Escalante [address] [place], [place] [phone] NEW PATIENT 01/30/2018 Patient Education: Patient Medication Summary Completed 01/30/2018 Instructions No Instructions
--- OUTSIDE RECORDS SUMMARY | 2020-02-10 14:15 | XMS REPORT | CCD ---
Author Author Riana Escalante Organization [facility] Address [address] [place] [address] Phone Unavailable Care Team Providers Care Social Media Campaign Manager Name Role Phone PP Unavailable CCM Unavailable Summary Purpose Interface Exchange Insurance Providers Payer name Policy type / Coverage type Covered alliance party ID Effective Begin Date Effective End Date WPS MEDICARE PART B [place] Medicare Part B [id number] Unknown Cigna Medicare Part B [id number] Unknown Family History Family History data not found Social History Social History Element Codes Description Effective Dates Tobacco history SNOMED CT: 200060397 Never smoker 01/30/[address]: 354210418 Never drinks alcohol 01/30/2018 Allergies, Adverse Reactions, [...] ICD-9: 428.42 ICD-10: I50.42 Active 08/13/2018 Unknown 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 ICD-9: V58.61 ICD-10: [...] failure ICD-9: 428.42 ICD-10: I50.42 08/13/2018 Active 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 ICD-9: V58.61 ICD-10: [...] Fill Instructions levothyroxine 25 mcg tablet RxNorm: 062714 1 Tablet(s) PO QD 02/04/2019 08/02/2019 Active warfarin 5 mg tablet RxNorm: 850291 1 TABLET(S) PO TUES, WED, THURS, SAT AND SUN AND 1/2 TABLET ON 02/04/2019 02/11/2019 Inactive Patient requests 90 days supply warfarin 5 mg tablet RxNorm: 950541 1 TABLET(S) PO TUES, WED, THURS, SAT AND SUN AND 1/2 TABLET ON 02/03/2019 02/03/2019 Inactive Patient requests 90 days supply temazepam 15 mg capsule RxNorm: 954034 TAKE 1 TO 2 CAPSULES BY MOUTH AT BEDTIME NEEDED FOR SLEEP 01/31/2019 No Stop Date Active levothyroxine 25 mcg tablet RxNorm: 680870 1 Tablet(s) PO QD 01/31/2019 02/03/2019 Inactive warfarin 5 mg tablet RxNorm: 523561 1 Tablet(s) PO Tues, Wed, Thurs, Sat and Sun and 1/2 tablet on 01/31/2019 02/02/2019 Inactive cyclobenzaprine 10 m g tablet RxNorm: 095619 1 Tablet(s) PO Q8H as needed 12/30/2018 No Stop Date Active losartan 25 mg tablet RxNorm: 299296 1 Tablet(s) PO QAM 12/27/2018 06/24/2019 Active Lidoderm 5 % topical patch RxNorm: 3678956 1 Application TOP Q1 2H and then off for 12 hours 12/25/2018 01/23/2019 Inactive Lidoderm 5 % topical patch RxNorm: 0040891 1 Application TOP Q1 2H and then off for 12 hours 12/25/2018 12/24/2018 Inactive cyclobenzaprine 5 mg tablet RxNorm: 987781 1 Tablet(s) PO Q8H as needed 12/12/2018 12/24/2018 In active spironolactone 25 mg tablet RxNorm: 374789 1 Tablet(s) PO BID 09/20/2018 06/16/2019 Active change in directions to BID pantoprazole 40 mg t ablet,delayed release RxNorm: 587367 1 Tablet(s) PO QD 09/20/2018 06/16/2019 Ac tive Patient requests 90 days supply spironolactone 25 mg tablet RxNorm: 107284 1 Tablet(s) PO BID 08/26/2018 09/19/2018 Inactive change in directions to BID pantoprazole 40 mg t ablet,delayed release RxNorm: 814169 1 Tablet(s) PO QD 08/15/2018 09/19/2018 In active Patient requests 90 days supply bumetanide 1 mg tablet RxNorm: 792591 1 Tablet(s) PO BID (6am and 6pm) 08/13/2018 02/08/2019 In active carvedilol 6.25 mg t ablet RxNorm: 186629 1 Tablet(s) PO BID 08/13/2018 02/08/2019 Inactive pantoprazole 40 mg t ablet,delayed release RxNorm: 122230 1 Tablet(s) PO QD 1 T ABLET(S) PO BID 08/13/2018 08/15/2018 Inactive Patient requests 90 days supply bumetanide 0.5 mg ta blet RxNorm: 740251 1 Tablet(s) PO QPM th ree days a week--Sunday, Sun, Sunday instead of 1mg dose in evening 08/13/2018 02/11/2019 Inactive levothyroxine 25 mcg tablet RxNorm: 993123 1 Tablet(s) PO QD 08/13/2018 01/30/2019 Inactive spironolactone 25 mg tablet RxNorm: 690005 1 Tablet(s) PO QD 08/13/2018 08/25/2018 Inactive losartan 25 mg tablet RxNorm: 218860 1 Tablet(s) PO QAM 08/13/2018 12/26/2018 Inactive warfarin 5 mg tablet RxNorm: 059990 1 Tablet(s) PO QD 08/13/2018 08/26/2018 Inactive pantoprazole 40 mg t ablet,delayed release RxNorm: 872201 1 TABLET(S) PO BID 08/02/2018 08/12/2018 In active Patient requests 90 days supply temazepam 15 mg capsule RxNorm: 825663 1-2 Capsule(s) PO QHS as needed for slee p 2018 01/31/2019 In active Restoril 15 mg capsule RxNorm: 209708 1-2 Capsule(s) PO QHS as needed for slee p 06/04/2018 08/12/2018 In active potassium chloride E R 10 mEq capsule,extended release RxNorm: 799654 2 CAPSULE(S) PO QD 05/07/2018 08/04/2018 Inactive Patient requests 90 days supply temazepam 22.5 mg ca psule RxNorm: 542023 1 Capsule(s) PO QHS a s needed for sleep 05/06/2018 08/12/2018 In active potassium chloride E R 10 mEq capsule,extended release RxNorm: 336848 2 Capsule(s) PO QD 05/06/2018 05/06/2018 Inactive ropinirole 1 mg tablet RxNorm: 636795 1 TABLET(S) PO QHS FOR RESTLESS LEGS 03/27/2018 04/25/2018 In active Patient requests 90 days supply ropinirole 1 mg tablet RxNorm: 795424 1 Tablet(s) PO QHS for restless legs 03/26/2018 03/26/2018 In active cefdinir 300 mg capsule RxNorm: 438476 1 Capsule(s) PO BID 03/26/2018 03/30/2018 Inactive temazepam 15 mg capsule RxNorm: 461640 1 Capsule(s) PO QHS as needed 03/20/2018 03/25/2018 In active Lunesta 3 mg tablet RxNorm: 407812 1 Tablet(s) PO QHS as needed for sleep 03/04/2018 03/19/2018 In active amitriptyline 10 mg tablet RxNorm: 356799 1 Tablet(s) PO QHS fo r sleep 02/26/2018 03/03/2018 In active escitalopram 20 mg t ablet RxNorm: 275024 1 Tablet(s) PO QHS 02/26/2018 08/12/2018 Inactive pantoprazole 40 mg t ablet,delayed release RxNorm: 779141 1 Tablet(s) PO BID 02/26/2018 04/26/2018 In active Coumadin 2.5 mg tablet RxNorm: 964152 1 Tablet(s) PO MWF 02/18/2018 07/22/2018 Inactive amiodarone 200 mg ta blet RxNorm: 007354 1 Tablet(s) PO QD No Start Date Active colestipol 1 gram ta blet RxNorm: 6636647 1 Tablet(s) PO BID No Start Date Active pantoprazole 40 mg t ablet,delayed release RxNorm: 323958 1 Tablet(s) PO QD No Start Date Active [employer] min with Iron tablet RxNorm: 1 Tablet(s) PO QD No Start Date Active warfarin 5 mg tablet RxNorm: 535536 1/2 Tablet(s) PO on Sun, Sun, Sun, Sun t hen 1 tablet on Sun, , Sat No Start Date Active pantoprazole 40 mg t ablet,delayed release RxNorm: 300878 1 Tablet(s) PO QD No Start Date 02/25/2018 Inactive bumetanide 1 mg tablet RxNorm: 535945 1 Tablet(s) PO BID (6am and 6pm) No Start Date 08/12/2018 Inactive potassium chloride E R 10 mEq tablet,extended release RxNorm: 622960 1 Tablet(s) PO QD No Start Date 02/11/2019 Inactive levothyroxine 25 mcg tablet RxNorm: 676924 1 Tablet(s) PO QD No Start Date 08/12/2018 Inactive spironolactone 25 mg tablet RxNorm: 885761 1 Tablet(s) PO QD No Start Date 08/12/2018 Inactive warfarin 5 mg tablet RxNorm: 008103 1 Tablet(s) PO MWF No Start Date 08/12/2018 Inactive warfarin 5 mg tablet RxNorm: 067493 1 Tablet(s) PO , Sun, , Sat and Sun then 1/2 tablet (2.5mg) on Sun & Sun No Start Date 08/12/2018 Inactive losartan 25 mg tablet RxNorm: 026262 1 Tablet(s) PO QAM No Start Date 08/12/2018 Inactive carvedilol 6.25 mg t ablet RxNorm: 756107 1 Tablet(s) PO BID No Start Date 08/12/2018 Inactive warfarin 2.5 mg tablet RxNorm: 379055 1 Tablet(s) PO Tues, Thurs, Sat and Sun No Start Date 08/12/2018 Inactive Coumadin 2.5 mg tablet RxNorm: 633604 Tablet(s) Mon Sun and Sun PO No Start Date 02/17/2018 Inactive potassium chloride E R 20 mEq tablet,extended release(part/cryst) RxNorm: 2388124 2 Tablet(s) PO QD No Start Date 05/05/2018 Inactive Coumadin 5 mg tablet RxNorm: 669735 Tablet(s) PO No Start Date 01/29/2018 Inactive mexiletine 200 mg ca psule RxNorm: 3933320 1 Capsule(s) PO BID No Start Date 03/25/2018 Inactive ferrous sulfate 325 mg (65 mg iron) tablet RxNorm: 233585 1 Tablet(s) PO QD No Start Date 07/22/2018 Inactive cyclobenzaprine 10 m g tablet RxNorm: 522491 1 Tablet(s) PO Q8H as needed No Start Date 12/29/2018 Inactive potassium chloride E R 10 mEq capsule,extended release RxNorm: 503741 2 Capsule(s) PO QD No Start Date 12/11/2018 Inactive Coumadin 5 mg tablet RxNorm: 430907 1 Tablet(s) PO Tues, Thurs, Sat and Sun No Start Date 07/22/2018 Inactive Restoril 15 mg capsule RxNorm: 950121 1-2 Capsule(s) PO QHS as needed for slee p No Start Date 05/05/2018 Inactive metoprolol succinate ER 25 mg tablet,extended release 24 hr RxNorm: 211939 1 Tablet(s) PO QD No Start Date 08/12/2018 Inactive Entresto 24 mg-26 mg tablet RxNorm: 7998951 1 Tablet(s) PO BID No Start Date 08/12/2018 Inactive warfarin 5 mg tablet RxNorm: 212397 1 Tablet(s) PO Tu, Wed, Thurs, Sat and Sun and 1/2 tablet on Sun/Sun No Start Date 01/30/2019 Inactive amiodarone 200 mg ta blet RxNorm: 201997 2 Tablet(s) PO BID No Start Date 10/09/2018 Inactive furosemide 20 mg tablet RxNorm: 144040 1 Tablet(s) PO QD No Start Date 08/12/2018 Inactive amiodarone 200 mg ta blet RxNorm: 127107 1 Tablet(s) PO BID No Start Date 08/26/2018 Inactive atorvastatin 40 mg t ablet RxNorm: 605504 1 Tablet(s) PO QD No Start Date [...] 285.9 10/10/2018 Acute on chronic combined systolic (isaeblla estive) and diastolic (congestive) heart failure ICD-10: I50.43 ICD-9: 428.43 08/27/2018 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 ICD-10: I50.42 ICD-9: 428.42 08/13/2018 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 ICD-10: Z79.01 ICD-9: [...] Item Item Code Result Date UA W/MICR 17506 UA Urine Appear Normal 02/06/2018 UA W/MICR 35474 UA Prote in 3+ 02/06/2018 UA W/MICR 51671 UA Hemog lobin Trace 02/06/2018 UA W/MICR 79007 UA Gluco se Negative 02/06/2018 UA W/MICR 39886 UA [place] es Negative 02/06/2018 UA W/MICR 91224 UA pH 5.5 02/06/2018 UA W/MICR 87970 U Spec G ravity 1.025 02/06/2018 UA W/MICR 80661 UA Bilir ubin Negative 02/06/2018 UA W/MICR 26277 UA Leuk Esteras Trace 02/06/2018 UA W/MICR 03621 UA Nitri te NEG 02/06/2018 UA W/MICR 96340 UA WBC/h pf 11-25 02/06/2018 UA W/MICR 61448 UA RBC h pf 0-5 02/06/2018 UA W/MICR 87016 UA Hyali ne Cast 16-25 02/06/2018 UA W/MICR 04814 UA Squam Epi Few 02/06/2018 Review of [...] Date URINALYSIS NONAUTO W /O SCOPE CPT-4: 84793 12/12/2018 URINE CULTURE/ COLON Y COUNT CPT-4: 89837 03/26/2018 URINALYSIS NONAUTO W /O SCOPE CPT-4: 34342 03/15/2018 INITIAL PREVENTIVE EXAM CPT-4: G0402 02/26/2018 URINALYSIS NONAUTO W /O SCOPE CPT-4: 83573 02/06/2018 URINE CULTURE/ COLON Y COUNT CPT-4: 37399 02/06/2018 UA W/MICR CPT-4: 41202 02/06/2018 CUR TOBACCO NON-USER CPT-4: G8457 01/30/2018 REPAIR BLADDER & VAGINA CPT-4: 34622 01/06/2017 REPAIR OF RECTOCELE CPT- 4: 44877 01/06/2017 BREAST SURGERY PROCE DURE CPT-4: 34818 Unknown LAPARO CHOLECYSTECTO MY/EXPLR CPT-4: 72437 Unknown HYSTERECTOMY/REVISE VAGINA CPT-4: 82744 Unknown Vital Signs Date Vital 02/12/2019 Blood [...] 1: 106/58 Code: 8480-6 BMI: 26.3 Code: 48614-4 Heart Rate 1: 72 bpm Height: 4'10" Respiratory Rate: 20 bpm SpO2: 97% Temperature: 36.6 (C ) / 97.8 (F) Weight: 128 lbs 07/10/2018 Blood Pressure 1: 122/70 Code: 8480-6 BMI: 28.6 Code: 58309-7 Heart Rate 1: 80 bpm Height: 4'10" Respiratory Rate: 20 bpm SpO2: 96% Temperature: 36.9 (C ) / 98.4 (F) Weight: 139 lbs 05/06/2018 Blood Pressure 1: 112/54 Code: 8480-6 BMI: 27.5 Code: 20177-7 Heart Rate 1: 80 bpm Height: 4'10" [...] 1: 146/80 Code: 8480-6 BMI: 30.0 Code: 94071-3 Heart Rate 1: 76 bpm Height: 4'10" Respiratory Rate: 20 bpm SpO2: 97% Temperature: 36.7 (C ) / 98.1 (F) Weight: 146 lbs 02/26/2018 Blood Pressure 1: 126/80 Code: 8480-6 BMI: 29.6 Code: 39075-6 Heart Rate 1: 80 bpm Height: 4'10" Respiratory Rate: 18 bpm SpO2: 96% Temperature: 37.0 (C ) / 98.6 (F) Weight: 144 lbs 01/30/2018 Blood Pressure 1: 120/78 Code: 8480-6 BMI: 29.6 Code: 65666-2 Heart Rate 1: 84 bpm Height: 4'10" [...] None well woman exam (40-65 years) 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 urinary frequency 02/26/2018 None well woman [...] Encounters Encounter Performer Loca tion Codes Date ([id number]) OFFICE/OUTPA TIENT VISIT EST Diagnosis: Essential (primary) hypertension[ICD10: I10] Diagnosis: Chronic atrial fibrillation[ICD10: I48.2] Diagnosis: Mixed hyperlipidemia[ICD10: E78.2] Diagnosis: Other fatigue[ICD10: R53.83] Diagnosis: Abdominal distension (gaseous)[ICD10: R14.0] Farhat [facility] [employer] [facility] CPT-4: 75037 02/12/2019 ([id number]) OFFICE/OUTPA TIENT VISIT EST Diagnosis: Low back pain[ICD10: M54.5] Bhavna Brarosman [facility] [employer] CPT-4: 30323 12/25/2018 ([id number]) OFFICE/OUTPA TIENT VISIT EST Diagnosis: Low back pain[ICD10: M54.5] Bhavna Garykhalif [facility] CPT-4: 20208 12/12/2018 ([id number]) OFFICE/OUTPA TIENT VISIT EST Diagnosis: Anemia, unspecified[ICD10: D64.9] Diagnosis: Chronic atrial fibrillation[ICD10: I48.2] Diagnosis: Other fatigue[ICD10: R53.83] Farhat DOUGH[facility] [employer] CPT-4: 14015 10/10/2018 ([id number]) OFFICE/OUTPA TIENT VISIT EST Diagnosis: Acute on chronic combined systolic (congestive) and diastolic (congestive) heart failure[ICD10: I50.43] Diagnosis: Chronic atrial fibrillation[ICD10: I48.2] Farhat HAWKINS [facility] CPT-4: 05601 08/27/2018 ([id number]) OFFICE/OUTPA TIENT VISIT EST Diagnosis: Chronic atrial fibrillation[ICD10: I48.2] 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] Diagnosis: long-term (current) use of 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[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] Farhat [facility]ILY [facility] CPT-4: 92279 08/13/2018 ([id number]) OFFICE/OUTPA TIENT VISIT EST Diagnosis: Acute on chronic combined systolic (congestive) and diastolic (congestive) heart failure[ICD10: I50.43] Diagnosis: Essential (primary) hypertension[ICD10: I10] Diagnosis: Anemia, unspecified[ICD10: D64.9] Farhat HAWKINS [facility] CPT-4: 34928 07/10/2018 ([id number]) OFFICE/OUTPA TIENT VISIT EST Diagnosis: Chronic atrial fibrillation[ICD10: I48.2] Diagnosis: Acute on chronic combined systolic (congestive) and diastolic (congestive) heart failure[ICD10: I50.43] Diagnosis: Localized edema[ICD10: R60.0] Farhat [facility] CPT-4: 86308 05/06/2018 ([id number]) OFFICE/OUTPA TIENT VISIT EST Diagnosis: Generalized abdominal pain[ICD10: R10.84] Diagnosis: Pelvic and perineal pain[ICD10: R10.2] Diagnosis: Localized edema[ICD10: R60.0] Bhavna [facility] CPT-4: 91359 04/17/2018 ([id number]) OFFICE/OUTPA TIENT VISIT EST Diagnosis: Urinary tract infection, site not specified[ICD10: N39.0] Diagnosis: Other insomnia[ICD10: G47.09] Diagnosis: Other fatigue[ICD10: R53.83] Diagnosis: Other forms of dyspnea[ICD10: R06.09] Diagnosis: Chronic atrial fibrillation[ICD10: I48.2] Diagnosis: Restless legs syndrome[ICD10: G25.81] Farhat HAWKINS [facility] CPT-4: 07296 03/26/2018 ([id number]) OFFICE/OUTPA TIENT VISIT EST Diagnosis: Altered mental status, unspecified[ICD10: R41.82] 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9] Diagnosis: Generalized abdominal pain[ICD10: R10.84] Diagnosis: Urinary tract infection, site not specified[ICD10: N39.0] Diagnosis: Other insomnia[ICD10: G47.09] Bhavna DAILY [email or web address] CPT-4: 91753 01/30/2018 Plan of Care Planned Activity Notes C odes Status Date Visit Diagnosis Plan: Essential (primary) hypertension Discussion: Stable ICD-9 : 401.9 ICD-10 : I10 02/12/2019 Visit Diagnosis Plan: Chronic atrial fibrillation Discussion: Following routinely with Cardiology ICD-9 : 427.31 ICD-10 : I48.2 02/12/2019 Visit Diagnosis Plan: Abdominal distension (gaseous) Discussion: Trial of Zenpep q AC ICD-9 : 787.3 ICD-10 : R14.0 02/12/2019 [facility] [address] [facility] [place] Canceled per guillermina. sending for mri [...] : M54.5 12/25/2018 App[facility]ment[facility] [address] [facility] [facility] 12/25/2018 Care Plan: CT ABDOMEN W/O DYE LOINC : 01175-8 Pending 12/25/2018 Care Plan: CT PELVIS W/O DYE LOINC : 97570-3 Pending 12/25/2018 Visit Diagnosis Plan: Low back [...] ICD-10 : M54.5 12/12/2018 Appointment: AvaBhavna brewer [address] [place], [place] [phone] ACUTE ILLNESS 12/12/2018 Patient Education: cyclobenzaprine- Opti mizeRX Coupon [id number] https://www.[employer]/samplemd/resources/getResource/61/sj5608b6-s720-7f2t-h5 b2-79g1666y9722.pdf Completed 12/12/2018 Appointment: Bhavna Escalante [address] [place], [place] [address] [place] CANCELED 12/06/2018 Visit Diagnosis Plan: Other fatigue Discussion: Increase activity--discussed 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 ICD-9 : 780.79 ICD-10 : R53.83 10/10/2018 Visit Diagnosis Plan: Anemia, unspecified Discussion: Update CBC ICD-9 : 285.9 ICD-10 : D64.9 10/10/2018 Visit Diagnosis Plan: Chronic atrial fibrillation Discussion: Cardiology monitoring PT/INR Follow Up: 4 months ICD-9 : 427.31 ICD-10 : I48.2 10/10/2018 Appointment: Farhat Dailytel: [address] [place], [place] [phone] US FOLLOW UP 10/10/2018 Visit Diagnosis Plan: [...] ICD-10 : I48.2 08/27/2018 Appointment: Farhat Dailytel: [address] [place] [address] US FOLLOW UP 08/27/2018 Visit Diagnosis Plan: [...] 08/13/2018 Visit Diagnosis Plan: 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 Discussion: Increase Coumadin to 5mg po daily and repeat PT/INR in 2 weeks ICD-9 : V58.61 ICD-10 : Z79.01 08/13/2018 Appointment: Farhat Dailytel: [address] [place], [place] [phone] US FOLLOW UP 08/13/2018 Patient Education: bumetanide- Optimize[employer] Coupon [id number] https://www.[employer]/samplemd/resources/getResource/61/4yy00r38-4ky7-2j12-yk Completed 08/13/2018 Patient Education: levothyroxine- Optimize[employer] Coupon 56 [id number] https://www.[employer] [place]/[employer]/resources/getResource/61/8321327g-0704-2u67-iq Completed 08/13/2018 Patient Education: warfarin- Optimize[employer] Coupon [id number] 1 https://www.[employer] [place]/[employer]/resources/getResource/61/56714201-gq11-01j0-7n Completed 08/13/2018 Patient Education: pantoprazole- Optimize[employer] Coupon 568 11804 https://www.[employer] [place]/[employer]/resources/BeanupResCohera Medicalce/61/k7107n90-72x3-93fp-2f Completed 08/13/2018 Patient Education: spironolactone- Optimize[employer] Coupon 5 [id number] https://www.[employer] [place]/[employer]/resources/getResource/61/3du395j1-j449-2577-kc Completed 08/13/2018 Visit Diagnosis Plan: Anemia, unspecified [...] I50.43 07/10/2018 Appointment: Farhat [facility] [phone] [facility] [address] FOLLOW UP 07/10/2018 Visit Diagnosis Plan: [...] : I48.2 05/06/2018 Appointment: Farhat Daily WPtel: [address] [place], [place] [phone] [place] FOLLOW UP 05/06/2018 Visit Diagnosis Plan: [...] : R10.2 04/17/2018 Appointment: Bhavna Escalante [address] [place], [place] [phone] ACUTE ILLNESS 04/17/2018 Patient Education: Patient Medication Summary Completed 04/17/2018 Care Plan: CT ABDOMEN W/O & W/DYE LOINC : 71632-6 Pending 04/17/2018 Care Plan: CT PELVIS W/O & W/DYE LOINC : 19777-6 Pending 04/17/2018 Appointment: Farhat Daily WPtel: [address] [place], [place] [phone] [place] CANCELED 04/10/2018 Visit Diagnosis Plan: Other [...] N39.0 03/26/2018 Appointment: Farhat [facility]el[facility] [phone] [facility] [facility] Follow UP 03/26/2018 Patient Education: [...] ICD-10 : R41.82 03/15/2018 Appointment: Bhavna Escalante [address] [place], [place] [address] ACUTE ILLNESS 03/15/2018 Patient Education: Patient Medication Summary Completed 03/15/2018 Visit Diagnosis Plan: Functional dyspepsia Discussion: Increase protonix to 40mg po BID Follow Up: 1 months ICD-9 : 536.8 ICD-10 : K30 02/26/2018 Visit Diagnosis Plan: Primary insomnia Discussion: Trial of elavil 10mg po q HS ICD-9 : 780.52 ICD-10 : F51.01 02/26/2018 Appointment: Farhat Daily WPtel: [address] [place], [place] [phone] [place] WELCOME TO MEDICARE 02/26/2018 Patient Education: Patient Medication Summary Completed 02/26/2018 Referral: Song Noonan WPtel: [phone] [facility] [place] Referral Initiated 02/19/2018 Appointment: Farhat [facility] [phone] [facility] [facility] LAB 02/06/2018 Patient Education: Patient Medication Summary Completed 02/06/2018 Appointment: Farhat [facility]el[facility] [phone] [facility] [place] CANCELED 02/01/2018 Care Plan: [...] ICD-10 : I10 01/30/2018 Visit Diagnosis Plan: long-term (current ) 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 informed her to take tylenol or remaining hydrocodone from surgery if pain develops. ICD-9 : V58.61 ICD-10 : Z79.01 01/30/2018 Appointment: Bhavna Escalante [address] [place], [place] [phone] NEW PATIENT 01/30/2018 Patient Education: Patient Medication Summary Completed 01/30/2018 Instructions No Instructions
[2020-02-10 14:18] LABS: INR 6.9 (0.8-1.4); PROTHROMBIN TIME PATIENT 59.6 SEC (12.2-14.7)
--- OUTSIDE RECORDS SUMMARY | 2020-02-10 14:18 | XMS REPORT | Continuity of Care Document ---
Author Organization Unknown Address Unknown Phone Unavailable Allergies Active Description Code Type Severity Reaction Onset Reported/Identified Relationship to Patient Clinical Status Yes rosuvastatin [id number] Drug Allergy Mild N/A 03/06/2018 Yes Sulfa (Sulfonamide Antibiotics) [id number] Drug Allergy Unknown N/A 018 Yes sacubitril [id number] Drug Allerg y Mild RASH 07/01/2018 Yes valsartan [id number] Drug Allergy Mild RASH 07/01/2018 Yes fentanyl [id number] Drug Allergy Unknown Vomiting 04/14/2019 Medications There is no data. Problems Date Dx Coded Attending Type Code Diagnosis Diagnosed By 12/26/2010 Ot 565.0 ANAL FISSURE 12/26/2010 Ot V58.69 OTH MED,LT,CURRENT USE 03/01/2012 Ot 785.1 PALP ITATIONS 03/20/2013 DEYA BLANCO MD Ot 276. 8 HYPOPOTASSEMIA 03/20/2013 DEYA BLANCO MD Ot 401. 9 HYPERTENSION NOS 03/20/2013 DEYA BLANCO MD Ot 562. 11 DIVERTICULITIS COLON (W/O MENT OF HEMORR 03/20/2013 DEYA BLANCO MD Ot 599. 0 URIN TRACT INFECTION NOS 05/27/2013 SARAI TOBIAS DO Ot 562. 10 DIVERTICULOSIS COLON (W/O MENT OF HEMORR 05/27/2013 SARAI TOBIAS DO Ot V12. 72 PERSONAL HISTORY OF COLONIC POLYPS 11/13/2013 KEKE VINES Ot 272.4 HYPERLIPIDEMIA NEC/NOS 11/13/2013 KEKE VINES Ot 278.00 OBESITY, NOS 11/13/2013 KEKE VINES Ot 296.22 DEPRESSIVE DISORDER-MOD 11/13/2013 KEKE VINES Ot 401.9 HYPERTENSION NOS 11/13/2013 KEKE VINES Ot 427.1 PAROX VENTRIC TACHYCARD 11/13/2013 KEKE VINES Ot 785.1 PALPITATIONS 05/13/2014 ELISE RIDER MD Ot 272. 4 HYPERLIPIDEMIA NEC/NOS 05/13/2014 ELISE RIDER MD Ot 397. 0 TRICUSPID VALVE DISEASE 05/13/2014 ELISE RIDER MD Ot 401. 9 HYPERTENSION NOS 05/13/2014 ELISE RIDER MD Ot 414. 01 CORONARY ATHEROSCLEROSIS OF [place] CORON 05/13/2014 ELISE RIDER MD Ot 424. 0 MITRAL VALVE DISORDER 05/13/2014 ELISE RIDER MD Ot 427. 1 PAROX VENTRIC TACHYCARD 05/13/2014 ELISE RIDER MD Ot 427. 31 ATRIAL FIBRILLATION 05/13/2014 ELISE RIDER MD Ot 496 CHR AIRWAY OBSTRUCT NEC 05/13/2014 ELISE RIDER MD Ot V58. 61 ANTICOAGULANTS,LT,CURRENT USE 05/13/2014 ELISE RIDER MD Ot V58. 69 OTH MED,LT,CURRENT USE 12/23/2014 DEYA BLANCO MD Ot V76. 12 02/08/2015 HORTENSIA KLINE MD Ot 427. 31 02/09/2015 HORTENSIA KLINE MD P Ot 427. 31 02/23/2015 YULI SAMPSON DC S Ot 724. 1 02/23/2015 HORTENSIA KLINE MD Ot 427. 31 04/07/2015 HORTENSIA KLINE MD P Ot 427. 31 ATRIAL FIBRILLATION 11/17/2015 DEYA BLANCO MD R Ot Z12. 31 ENCNTR SCREEN MAMMOGRAM FOR MALIGNANT NE 12/02/2015 DEYA BLANCO MD R Ot Z12. 31 ENCNTR SCREEN MAMMOGRAM FOR MALIGNANT NE 02/08/2016 KEKE VINES Ot E78.5 HYPERLIPIDEMIA, UNSPECIFIED 02/08/2016 KEKE VINES Ot I10 ESSENTIAL (PRIMARY) HYPERTENSION 02/08/2016 KEKE VINES Ot I47.2 VENTRICULAR TACHYCARDIA 02/08/2016 KEKE VINES Ot I48.0 PAROXYSMAL ATRIAL FIBRILLATION 02/17/2016 ELISE RIDER MD Ot E78. 5 HYPERLIPIDEMIA, UNSPECIFIED 02/17/2016 ELISE RIDER MD Ot I25. 10 ATHSCL HEART DISEASE OF [place] CORONARY 02/17/2016 ELISE RIDER MD Ot I47. 2 VENTRICULAR TACHYCARDIA 02/17/2016 ELISE RIDER MD Ot I48. 0 PAROXYSMAL ATRIAL FIBRILLATION 02/17/2016 ELISE RIDER MD Ot I48. 92 UNSPECIFIED ATRIAL FLUTTER 02/17/2016 ELISE RIDER MD Ot J44. 9 CHRONIC OBSTRUCTIVE PULMONARY DISEASE, U 02/17/2016 ELISE RIDER MD Ot Z79.899 OTHER [facility] (CURRENT) DRUG THERAPY 02/21/2016 ELISE RIDER MD Ot E78. 5 HYPERLIPIDEMIA, UNSPECIFIED 02/21/2016 ELISE RIDER MD Ot I25. 10 ATHSCL HEART DISEASE OF [place] CORONARY 02/21/2016 ELISE RIDER MD Ot I47. 2 VENTRICULAR TACHYCARDIA 02/21/2016 ELISE RIDER MD Ot I48. 0 PAROXYSMAL ATRIAL FIBRILLATION 02/21/2016 ELISE RIDER MD Ot I48. 92 UNSPECIFIED ATRIAL FLUTTER 02/21/2016 ELISE RIDER MD Ot J44. 9 CHRONIC OBSTRUCTIVE PULMONARY DISEASE, U 02/21/2016 ELISE RIDER MD Ot Z79.899 OTHER [facility] (CURRENT) DRUG THERAPY 03/06/2016 KEKE VINES Ot E78.5 HYPERLIPIDEMIA, UNSPECIFIED 03/06/2016 KEKE VINES Ot I10 ESSENTIAL (PRIMARY) HYPERTENSION 03/06/2016 KEKE VINES Ot I47.2 VENTRICULAR TACHYCARDIA 03/06/2016 KEKE VINES Ot I48.0 PAROXYSMAL ATRIAL FIBRILLATION 03/09/2016 ELISE RIDER MD Ot E78. 5 HYPERLIPIDEMIA, UNSPECIFIED 03/09/2016 ELISE RIDER MD Ot I25. 10 ATHSCL HEART DISEASE OF [place] CORONARY 03/09/2016 ELISE RIDER MD Ot I47. 2 VENTRICULAR TACHYCARDIA 03/09/2016 ELISE RIDER MD Ot I48. 0 PAROXYSMAL ATRIAL FIBRILLATION 03/09/2016 ELISE RIDER MD Ot I48. 92 UNSPECIFIED ATRIAL FLUTTER 03/09/2016 ELISE RIDER MD Ot J44. 9 CHRONIC OBSTRUCTIVE PULMONARY DISEASE, U 03/09/2016 ELISE RIDER MD Ot Z79.899 OTHER [facility] SERVICES MANAGER (CURRENT) DRUG THERAPY 05/13/2016 Ot 565.0 ANAL FISSURE 05/13/2016 Ot V72.63 PRE -PROCEDURAL LABORATORY EXAMINATION 05/13/2016 Ot V74.8 SCRE EN-BACTERIAL DIS NEC 05/13/2016 Ot V76.12 OTH SCREEN MAMMO- MALIGN NEOPLASM OF [place] 05/13/2016 Ot V76.12 OTH SCREEN MAMMO- MALIGN NEOPLASM OF [place] 05/13/2016 Ot V76.12 OTH SCREEN MAMMO- MALIGN NEOPLASM OF [place] 05/13/2016 DEYA BLANCO MD Ot 355. 9 MONONEURITIS NOS 05/13/2016 DEYA BLANCO MD Ot 719. 45 JOINT PAIN-PELVIS 05/13/2016 MICHELINE VANESSA SARAI Larry Ot V72. 84 EXAM PRE-OPERATIVE NOS 05/13/2016 KEKE VINES Ot 272.4 HYPERLIPIDEMIA NEC/NOS 05/13/2016 KEKE VINES Ot 278.00 OBESITY, NOS 05/13/2016 KEKE VINES Ot 401.9 HYPERTENSION NOS 05/13/2016 KEKE VINES Ot 427.1 PAROX VENTRIC TACHYCARD 05/13/2016 KEKE VINES Ot 785.1 PALPITATIONS 05/13/2016 ELISE RIDER MD Ot 272. 4 HYPERLIPIDEMIA NEC/NOS 05/13/2016 ELISE RIDER MD Ot 401. 9 HYPERTENSION NOS 05/13/2016 ELISE RIDER MD Ot 426. 11 ATRIOVENT BLOCK-1ST DEGR 05/13/2016 ELISE RIDER MD Ot 427. 1 PAROX VENTRIC TACHYCARD 05/13/2016 ELISE RIDER MD Ot 427. 69 PREMATURE BEATS NEC 05/13/2016 ELISE RIDER MD Ot 530. 81 ESOPHAGEAL REFLUX 05/13/2016 ELISE RIDER MD Ot V58. 69 OTH MED,LT,CURRENT USE 05/13/2016 DEYA BLANCO MD Ot V76. 12 OTH SCREEN MAMMO-MALIGN NEOPLASM OF [place] 05/13/2016 Ot 272.4 HYPE RLIPIDEMIA NEC/NOS 05/13/2016 Ot 278.00 OBE SITY, NOS 05/13/2016 Ot 296.22 DEP RESSIVE DISORDER-MOD 05/13/2016 Ot 401.9 HYPE RTENSION NOS 05/13/2016 Ot 427.1 PARO X VENTRIC TACHYCARD 05/13/2016 Ot 785.1 PALP ITATIONS 05/13/2016 KEKE VINES Ot 397.0 TRICUSPID VALVE DISEASE 05/13/2016 KEKE VINES Ot 401.9 HYPERTENSION NOS 05/13/2016 KEKE VINES Ot 424.0 MITRAL VALVE DISORDER 05/13/2016 KEKE VINES Ot 427.1 PAROX VENTRIC TACHYCARD 05/13/2016 KEKE VINES Ot 427.69 PREMATURE BEATS NEC 05/13/2016 KEKE VINES Ot 786.09 RESPIRATORY ABNORM NEC 05/13/2016 FRANCIS KUMARI, DEYA Landeros Ot 789. 00 ABDOMINAL PAIN, UNSPECIFIED SITE 05/13/2016 Ot 789.00 ABD OMINAL PAIN, UNSPECIFIED SITE 05/13/2016 FRANCIS KUMARI, DEYA Landeros Ot V76. 12 OTH SCREEN MAMMO-MALIGN NEOPLASM OF [place] 05/13/2016 CAMILLA NAJERA, YULI S Ot 724. 1 PAIN IN THORACIC SPINE 05/13/2016 DEYA BLANCO MD Ot Z12. 31 ENCNTR SCREEN MAMMOGRAM FOR MALIGNANT NE 05/13/2016 KEKE VINES Ot E78.5 HYPERLIPIDEMIA, UNSPECIFIED 05/13/2016 KEKE VINES Ot I10 ESSENTIAL (PRIMARY) HYPERTENSION 05/13/2016 KEKE VINES Ot I47.2 VENTRICULAR TACHYCARDIA 05/13/2016 KEKE VINES Ot I48.0 PAROXYSMAL ATRIAL FIBRILLATION 05/13/2016 ELISE RIDER MD Ot E78. 5 HYPERLIPIDEMIA, UNSPECIFIED 05/13/2016 ELISE RIDER MD Ot I25. 10 ATHSCL HEART DISEASE OF [place] CORONARY 05/13/2016 ELISE RIDER MD Ot I47. 2 VENTRICULAR TACHYCARDIA 05/13/2016 ELISE RIDER MD Ot I48. 0 PAROXYSMAL ATRIAL FIBRILLATION 05/13/2016 ELISE RIDER MD Ot I48. 92 UNSPECIFIED ATRIAL FLUTTER 05/13/2016 ELISE RIDER MD Ot J44. 9 CHRONIC OBSTRUCTIVE PULMONARY DISEASE, U 05/13/2016 ELISE RIDER MD Ot Z79.899 OTHER [facility]OLOG[facility] SERVICES MANAGER (CURRENT) DRUG THERAPY 09/26/2016 Ot V76.12 OTH SCREEN MAMMO- MALIGN NEOPLASM OF [place] 09/26/2016 Ot V76.12 OTH SCREEN MAMMO- MALIGN NEOPLASM OF [place] 09/26/2016 DEYA BLANCO MD Ot 355. 9 MONONEURITIS NOS 09/26/2016 DEYA BLANCO MD Ot 719. 45 JOINT PAIN-PELVIS 09/26/2016 SARAI TOBIAS DO Ot V72. 84 EXAM PRE-OPERATIVE NOS 09/26/2016 KEKE VINES Ot 272.4 HYPERLIPIDEMIA NEC/NOS 09/26/2016 KEKE VINES Ot 278.00 OBESITY, NOS 09/26/2016 KEKE VINES Ot 401.9 HYPERTENSION NOS 09/26/2016 KEKE VINES Ot 427.1 PAROX VENTRIC TACHYCARD 09/26/2016 KEKE VINES Ot 785.1 PALPITATIONS 09/26/2016 ELISE RIDER MD Ot 272. 4 HYPERLIPIDEMIA NEC/NOS 09/26/2016 ELISE RIDER MD Ot 401. 9 HYPERTENSION NOS 09/26/2016 ELISE RIDER MD Ot 426. 11 ATRIOVENT BLOCK-1ST DEGR 09/26/2016 ELISE RIDER MD Ot 427. 1 PAROX VENTRIC TACHYCARD 09/26/2016 ELISE RIDER MD Ot 427. 69 PREMATURE BEATS NEC 09/26/2016 ELISE RIDER MD Ot 530. 81 ESOPHAGEAL REFLUX 09/26/2016 ELISE RIDER MD Ot V58. 69 OTH MED,LT,CURRENT USE 09/26/2016 DEYA BLANCO MD Ot V76. 12 OTH SCREEN MAMMO-MALIGN NEOPLASM OF [place] 09/26/2016 Ot 272.4 HYPE RLIPIDEMIA NEC/NOS 09/26/2016 Ot 278.00 OBE SITY, NOS 09/26/2016 Ot 296.22 DEP RESSIVE DISORDER-MOD 09/26/2016 Ot 401.9 HYPE RTENSION NOS 09/26/2016 Ot 427.1 PARO X VENTRIC TACHYCARD 09/26/2016 Ot 785.1 PALP ITATIONS 09/26/2016 KEKE VINES Ot 397.0 TRICUSPID VALVE DISEASE 09/26/2016 KEKE VINES Ot 401.9 HYPERTENSION NOS 09/26/2016 KEKE VINES Ot 424.0 MITRAL VALVE DISORDER 09/26/2016 KEKE VINES Ot 427.1 PAROX VENTRIC TACHYCARD 09/26/2016 KEKE VINES Ot 427.69 PREMATURE BEATS NEC 09/26/2016 KEKE VINES Ot 786.09 RESPIRATORY ABNORM NEC 09/26/2016 FRANCIS KUMARI, DEYA R Ot 789. 00 ABDOMINAL PAIN, UNSPECIFIED SITE 09/26/2016 Ot 789.00 ABD OMINAL PAIN, UNSPECIFIED SITE 09/26/2016 FRANCIS KUMARI, DEYA Landeros Ot V76. 12 OTH SCREEN MAMMO-MALIGN NEOPLASM OF [place] 09/26/2016 CAMILLA NAJERA, YULI S Ot 724. 1 PAIN IN THORACIC SPINE 09/26/2016 FRANCIS KUMARI, DEYA R Ot Z12. 31 ENCNTR SCREEN MAMMOGRAM FOR MALIGNANT NE 09/26/2016 KEKE VINES Ot E78.5 HYPERLIPIDEMIA, UNSPECIFIED 09/26/2016 KEKE VINES Ot I10 ESSENTIAL (PRIMARY) HYPERTENSION 09/26/2016 KEKE VINES Ot I47.2 VENTRICULAR TACHYCARDIA 09/26/2016 KEKE VINES Ot I48.0 PAROXYSMAL ATRIAL FIBRILLATION 09/26/2016 ELISE RIDER MD Ot E78. 5 HYPERLIPIDEMIA, UNSPECIFIED 09/26/2016 ELISE RIDER MD Ot I25. 10 ATHSCL HEART DISEASE OF [place] CORONARY 09/26/2016 ELISE RIDER MD Ot I47. 2 VENTRICULAR TACHYCARDIA 09/26/2016 ELISE RIDER MD Ot I48. 0 PAROXYSMAL ATRIAL FIBRILLATION 09/26/2016 ELISE RIDER MD Ot I48. 92 UNSPECIFIED ATRIAL FLUTTER 09/26/2016 ELISE RIDER MD Ot J44. 9 CHRONIC OBSTRUCTIVE PULMONARY DISEASE, U 09/26/2016 ELISE RIDER MD Ot Z79.899 OTHER [facility]IOLOGY SERVICES MANAGER (CURRENT) DRUG THERAPY 10/04/2016 Ot V76.12 OTH SCREEN MAMMO- MALIGN NEOPLASM OF [place] 10/04/2016 Ot V76.12 OTH SCREEN MAMMO- MALIGN NEOPLASM OF [place] 10/04/2016 FRANCIS KUMARI, DEYA Landeros Ot 355. 9 MONONEURITIS NOS 10/04/2016 DEYA BLANCO MD Ot 719. 45 JOINT PAIN-PELVIS 10/04/2016 MICHELINE VANESSASARAI Larry Ot V72. 84 EXAM PRE-OPERATIVE NOS 10/04/2016 KEKE VINES Ot 272.4 HYPERLIPIDEMIA NEC/NOS 10/04/2016 KEKE VINES Ot 278.00 OBESITY, NOS 10/04/2016 KEKE VINES Ot 401.9 HYPERTENSION NOS 10/04/2016 KEKE VINES Ot 427.1 PAROX VENTRIC TACHYCARD 10/04/2016 KEKE VINES Ot 785.1 PALPITATIONS 10/04/2016 ELISE RIDER MD Ot 272. 4 HYPERLIPIDEMIA NEC/NOS 10/04/2016 ELISE RIDER MD Ot 401. 9 HYPERTENSION NOS 10/04/2016 ELISE RIDER MD Ot 426. 11 ATRIOVENT BLOCK-1ST DEGR 10/04/2016 ELISE RIDER MD Ot 427. 1 PAROX VENTRIC TACHYCARD 10/04/2016 ELISE RIDER MD Ot 427. 69 PREMATURE BEATS NEC 10/04/2016 ELISE RIDER MD Ot 530. 81 ESOPHAGEAL REFLUX 10/04/2016 ELISE RIDER MD Ot V58. 69 OTH MED,LT,CURRENT USE 10/04/2016 DEYA BLANCO MD R Ot V76. 12 OTH SCREEN MAMMO-MALIGN NEOPLASM OF [place] 10/04/2016 Ot 272.4 HYPE RLIPIDEMIA NEC/NOS 10/04/2016 Ot 278.00 OBE SITY, NOS 10/04/2016 Ot 296.22 DEP RESSIVE DISORDER-MOD 10/04/2016 Ot 401.9 HYPE RTENSION NOS 10/04/2016 Ot 427.1 PARO X VENTRIC TACHYCARD 10/04/2016 Ot 785.1 PALP ITATIONS 10/04/2016 KEKE VINES Ot 397.0 TRICUSPID VALVE DISEASE 10/04/2016 KEKE VINES Ot 401.9 HYPERTENSION NOS 10/04/2016 KEKE VINES Ot 424.0 MITRAL VALVE DISORDER 10/04/2016 KEKE VINES Ot 427.1 PAROX VENTRIC TACHYCARD 10/04/2016 KEKE VINES Ot 427.69 PREMATURE BEATS NEC 10/04/2016 KEKE VINES Ot 786.09 RESPIRATORY ABNORM NEC 10/04/2016 DEYA BLANCO MD R Ot 789. 00 ABDOMINAL PAIN, UNSPECIFIED SITE 10/04/2016 Ot 789.00 ABD OMINAL PAIN, UNSPECIFIED SITE 10/04/2016 DEYA BLANCO MD Ot V76. 12 OTH SCREEN MAMMO-MALIGN NEOPLASM OF [place] 10/04/2016 CAMILLA NAJERA, YULI S Ot 724. 1 PAIN IN THORACIC SPINE 10/04/2016 DEYA BLANCO MD Ot Z12. 31 ENCNTR SCREEN MAMMOGRAM FOR MALIGNANT NE 10/04/2016 KEKE VINES Ot E78.5 HYPERLIPIDEMIA, UNSPECIFIED 10/04/2016 KEKE VINES Ot I10 ESSENTIAL (PRIMARY) HYPERTENSION 10/04/2016 KEKE VINES Ot I47.2 VENTRICULAR TACHYCARDIA 10/04/2016 KEKE VINES Ot I48.0 PAROXYSMAL ATRIAL FIBRILLATION 10/04/2016 ELISE RIDER MD Ot E78. 5 HYPERLIPIDEMIA, UNSPECIFIED 10/04/2016 ELISE RIDER MD Ot I25. 10 ATHSCL HEART DISEASE OF [place] CORONARY 10/04/2016 ELISE RIDER MD Ot I47. 2 VENTRICULAR TACHYCARDIA 10/04/2016 ELISE RIDER MD Ot I48. 0 PAROXYSMAL ATRIAL FIBRILLATION 10/04/2016 ELISE RIDER MD Ot I48. 92 UNSPECIFIED ATRIAL FLUTTER 10/04/2016 ELISE RIDER MD Ot J44. 9 CHRONIC OBSTRUCTIVE PULMONARY DISEASE, U 10/04/2016 ELISE RIDER MD Ot Z79.899 OTHER RADIOLOGY SERVICES MANAGER (CURRENT) DRUG THERAPY 10/04/2016 ELISE RIDER MD Ot E78. 5 HYPERLIPIDEMIA, UNSPECIFIED 10/04/2016 ELISE RIDER MD Ot I10 ESSENTIAL (PRIMARY) HYPERTENSION 10/04/2016 ELISE RIDER MD Ot I47. 2 VENTRICULAR TACHYCARDIA 10/04/2016 ELISE RIDER MD Ot I48. 0 PAROXYSMAL ATRIAL FIBRILLATION 10/04/2016 ELISE RIDER MD Ot J44. 9 CHRONIC OBSTRUCTIVE PULMONARY DISEASE, U 10/04/2016 ELISE RIDER MD Ot K21. 9 GASTRO-ESOPHAGEAL REFLUX DISEASE WITHOUT 10/04/2016 ELISE RIDER MD Ot Z79. 01 RADIOLOGY SERVICES MANAGER (CURRENT) USE OF ANTICOAGULANT 10/04/2016 ELISE RIDER MD Ot Z79.899 OTHER [facility] (CURRENT) DRUG THERAPY 10/11/2016 ELISE RIDER MD Ot E78. 5 HYPERLIPIDEMIA, UNSPECIFIED 10/11/2016 ELISE RIDER MD Ot I10 ESSENTIAL (PRIMARY) HYPERTENSION 10/11/2016 ELISE RIDER MD Ot I47. 2 VENTRICULAR TACHYCARDIA 10/11/2016 ELISE RIDER MD Ot I48. 0 PAROXYSMAL ATRIAL FIBRILLATION 10/11/2016 ELISE RIDER MD Ot J44. 9 CHRONIC OBSTRUCTIVE PULMONARY DISEASE, U 10/11/2016 ELISE RIDER MD Ot K21. 9 GASTRO-ESOPHAGEAL REFLUX DISEASE WITHOUT 10/11/2016 ELISE RIDER MD Ot Z79. 01 RADIOLOGY SERVICES MANAGER (CURRENT) USE OF ANTICOAGULANT 10/11/2016 ELISE RIDER MD Ot Z79.899 OTHER RADIOLOGY SERVICES MANAGER (CURRENT) DRUG THERAPY 10/31/2016 JOYCE KIM DO Ot I1 0 ESSENTIAL (PRIMARY) HYPERTENSION 10/31/2016 JOYCE KIM DO Ot I48.2 CHRONIC ATRIAL FIBRILLATION 10/31/2016 JOYCE KIM DO Ot R07.9 CHEST PAIN, UNSPECIFIED 10/31/2016 JOYCE KIM DO, Ot Z79.01 [facility] (CURRENT) USE OF ANTICOAGULANT 10/31/2016 JOYCE KIM DO, Ot Z79.899 OTHER RADIOLOGY SERVICES MANAGER (CURRENT) DRUG THERAPY 11/06/2016 JOYCE KIM DO Ot I1 0 ESSENTIAL (PRIMARY) HYPERTENSION 11/06/2016 JOYCE KIM DO Ot I48.2 CHRONIC ATRIAL FIBRILLATION 11/06/2016 JOYCE KIM DO Ot R07.9 CHEST PAIN, UNSPECIFIED 11/06/2016 JOYCE KIM DO, Ot Z79.01 RADIOLOGY SERVICES MANAGER (CURRENT) USE OF ANTICOAGULANT 11/06/2016 JOYCE KIM DO, Ot Z79.899 OTHER RADIOLOGY SERVICES MANAGER (CURRENT) DRUG THERAPY 11/09/2016 ELISE RIDER MD, Ot E78. 00 PURE HYPERCHOLESTEROLEMIA, UNSPECIFIED 11/09/2016 ELISE RIDER MD, Ot F32. 9 MAJOR DEPRESSIVE DISORDER, SINGLE EPISOD 11/09/2016 ELISE RIDER MD Ot G47. 33 OBSTRUCTIVE SLEEP APNEA (ADULT) (PEDIATR 11/09/2016 ELISE RIDER MD Ot I10 ESSENTIAL (PRIMARY) HYPERTENSION 11/09/2016 ELISE RIDER MD, Ot I25. 10 ATHSCL HEART DISEASE OF [place] CORONARY 11/09/2016 ELISE RIDER MD Ot I47. 2 VENTRICULAR TACHYCARDIA 11/09/2016 ELISE RIDER MD Ot I48. 0 PAROXYSMAL ATRIAL FIBRILLATION 11/09/2016 ELISE RIDER MD Ot I48. 92 UNSPECIFIED ATRIAL FLUTTER 11/09/2016 ELISE RIDER MD Ot J44. 9 CHRONIC OBSTRUCTIVE PULMONARY DISEASE, U 11/09/2016 ELISE RIDER MD Ot K21. 9 GASTRO-ESOPHAGEAL REFLUX DISEASE WITHOUT 11/09/2016 ELISE RIDER MD Ot K57. 90 DVRTCLOS OF INTEST, PART UNSP, W/O PERF 11/09/2016 ELISE RIDER MD, Ot R00. 1 BRADYCARDIA, UNSPECIFIED 11/09/2016 ELISE RIDER MD Ot E78. 00 PURE HYPERCHOLESTEROLEMIA, UNSPECIFIED 11/09/2016 ELISE RIDER MD Ot F32. 9 MAJOR DEPRESSIVE DISORDER, SINGLE EPISOD 11/09/2016 ELISE RIDER MD Ot G47. 33 OBSTRUCTIVE SLEEP APNEA (ADULT) (PEDIATR 11/09/2016 ELISE RIDER MD Ot I10 ESSENTIAL (PRIMARY) HYPERTENSION 11/09/2016 ELISE RIDER MD Ot I25. 10 ATHSCL HEART DISEASE OF [place] CORONARY 11/09/2016 ELISE RIDER MD Ot I47. 2 VENTRICULAR TACHYCARDIA 11/09/2016 ELISE RIDER MD Ot I48. 0 PAROXYSMAL ATRIAL FIBRILLATION 11/09/2016 ELISE RIDER MD Ot I48. 92 UNSPECIFIED ATRIAL FLUTTER 11/09/2016 ELISE RIDER MD Ot J44. 9 CHRONIC OBSTRUCTIVE PULMONARY DISEASE, U 11/09/2016 ELISE RIDER MD Ot K21. 9 GASTRO-ESOPHAGEAL REFLUX DISEASE WITHOUT 11/09/2016 ELISE RIDER MD Ot K57. 90 DVRTCLOS OF INTEST, PART UNSP, W/O PERF 11/09/2016 ELISE RIDER MD Ot R00. 1 BRADYCARDIA, UNSPECIFIED 11/10/2016 ELISE RIDER MD Ot E78. 00 PURE HYPERCHOLESTEROLEMIA, UNSPECIFIED 11/10/2016 ELISE RIDER MD Ot F32. 9 MAJOR DEPRESSIVE DISORDER, SINGLE EPISOD 11/10/2016 ELISE RIDER MD Ot G47. 33 OBSTRUCTIVE SLEEP APNEA (ADULT) (PEDIATR 11/10/2016 ELISE RIDER MD Ot I10 ESSENTIAL (PRIMARY) HYPERTENSION 11/10/2016 ELISE RIDER MD Ot I25. 10 ATHSCL HEART DISEASE OF [place] CORONARY 11/10/2016 ELISE RIDER MD Ot I47. 2 VENTRICULAR TACHYCARDIA 11/10/2016 ELISE RIDER MD Ot I48. 0 PAROXYSMAL ATRIAL FIBRILLATION 11/10/2016 ELISE RIDER MD Ot I48. 92 UNSPECIFIED ATRIAL FLUTTER 11/10/2016 ELISE RIDER MD Ot I49. 5 SICK SINUS SYNDROME 11/10/2016 ELISE RIDER MD, Ot J44. 9 CHRONIC OBSTRUCTIVE PULMONARY DISEASE, U 11/10/2016 ELISE RIDER MD Ot K21. 9 GASTRO-ESOPHAGEAL REFLUX DISEASE WITHOUT 11/10/2016 ELISE RIDER MD Ot K57. 90 DVRTCLOS OF INTEST, PART UNSP, W/O PERF 11/10/2016 ELISE RIDER MD Ot R00. 1 BRADYCARDIA, UNSPECIFIED 11/10/2016 ELISE RIDER MD Ot Z79. 01 RADIOLOGY SERVICES MANAGER (CURRENT) USE OF ANTICOAGULANT 11/10/2016 ELISE RIDER MD Ot Z79.899 OTHER RADIOLOGY SERVICES MANAGER (CURRENT) DRUG THERAPY 11/23/2016 ELISE RIDER MD, Ot E78. 00 PURE HYPERCHOLESTEROLEMIA, UNSPECIFIED 11/23/2016 ELISE RIDER MD Ot F32. 9 MAJOR DEPRESSIVE DISORDER, SINGLE EPISOD 11/23/2016 ELISE RIDER MD Ot G47. 33 OBSTRUCTIVE SLEEP APNEA (ADULT) (PEDIATR 11/23/2016 ELISE RIDER MD Ot I10 ESSENTIAL (PRIMARY) HYPERTENSION 11/23/2016 ELISE RIDER MD Ot I25. 10 ATHSCL HEART DISEASE OF [place] CORONARY 11/23/2016 ELISE RIDER MD Ot I47. 2 VENTRICULAR TACHYCARDIA 11/23/2016 ELISE RIDER MD Ot I48. 0 PAROXYSMAL ATRIAL FIBRILLATION 11/23/2016 ELISE RIDER MD Ot I48. 92 UNSPECIFIED ATRIAL FLUTTER 11/23/2016 ELISE RIDER MD Ot I49. 5 SICK SINUS SYNDROME 11/23/2016 ELISE RIDER MD, Ot J44. 9 CHRONIC OBSTRUCTIVE PULMONARY DISEASE, U 11/23/2016 ELISE RIDER MD, Ot K21. 9 GASTRO-ESOPHAGEAL REFLUX DISEASE WITHOUT 11/23/2016 ELISE RIDER MD Ot K57. 90 DVRTCLOS OF INTEST, PART UNSP, W/O PERF 12/08/2016 Ot 272.4 HYPE RLIPIDEMIA NEC/NOS 12/08/2016 Ot 278.00 OBE SITY, NOS 12/08/2016 Ot 296.22 DEP RESSIVE DISORDER-MOD 12/08/2016 Ot 401.9 HYPE RTENSION NOS 12/08/2016 Ot 427.1 PARO X VENTRIC TACHYCARD 12/08/2016 Ot 785.1 PALP ITATIONS 12/12/2016 ELLIS POLLACK DO Ot A04.7 ENTEROCOLITIS DUE TO CLOSTRIDIUM DIFFICI 12/12/2016 ELLIS POLLACK DO Ot E78.00 PURE HYPERCHOLESTEROLEMIA, UNSPECIFIED 12/12/2016 ELLIS POLLACK DO Ot E86.0 DEHYDRATION 12/12/2016 ELLIS POLLACK DO Ot G47.30 SLEEP APNEA, UNSPECIFIED 12/12/2016 POLLACK DO ELLIS Ot I10 ESSENTIAL (PRIMARY) HYPERTENSION 12/12/2016 POLLACK DO ELLIS Ot I48.2 CHRONIC ATRIAL FIBRILLATION 12/12/2016 POLLACK DO ELLIS Ot K21.9 GASTRO-ESOPHAGEAL REFLUX DISEASE WITHOUT 12/12/2016 POLLACK DO ELLIS Ot K57.92 DVTRCLI OF INTEST, PART UNSP, W/O PERF O 12/12/2016 POLLACK DO ELLIS Ot R79.1 ABNORMAL COAGULATION PROFILE 12/12/2016 POLLACK DO ELLIS Ot Z95.0 PRESENCE OF CARDIAC PACEMAKER 12/14/2016 JAKI DO ELLIS Ot A04.7 ENTEROCOLITIS DUE TO CLOSTRIDIUM DIFFICI 12/14/2016 JAKI DO ELLIS Ot E78.00 PURE HYPERCHOLESTEROLEMIA, UNSPECIFIED 12/14/2016 JAKI DO ELLIS Ot E86.0 DEHYDRATION 12/14/2016 JAKI VAENSSA ELLIS Ot G47.30 SLEEP APNEA, UNSPECIFIED 12/14/2016 JAKI DO ELLIS Ot I10 ESSENTIAL (PRIMARY) HYPERTENSION 12/14/2016 JAKI DO ELLIS Ot I48.2 CHRONIC ATRIAL FIBRILLATION 12/14/2016 JAKI DO ELLIS Ot K21.9 GASTRO-ESOPHAGEAL REFLUX DISEASE WITHOUT 12/14/2016 JAKI DO ELLIS Ot K57.92 DVTRCLI OF INTEST, PART UNSP, W/O PERF O 12/14/2016 JAKI VANESSA ELLIS Ot R79.1 ABNORMAL COAGULATION PROFILE 12/14/2016 LISA POLLACK DOI Ot Z78.0 ASYMPTOMATIC MENOPAUSAL STATE 12/14/2016 JAKI VANESSA ELLIS Ot Z86.71 8 PERSONAL HISTORY OF OTHER VENOUS THROMBO 12/14/2016 JAKI VANESSA ELLIS Ot Z87.44 0 PERSONAL HISTORY OF URINARY (TRACT) INFE 12/14/2016 LISA POLLACK DOI Ot Z95.0 PRESENCE OF CARDIAC PACEMAKER 12/15/2016 ELISE RIDER MD Ot E78. 00 PURE HYPERCHOLESTEROLEMIA, UNSPECIFIED 12/15/2016 ELISE RIDER MD Ot F32. 9 MAJOR DEPRESSIVE DISORDER, SINGLE EPISOD 12/15/2016 ELISE RIDER MD Ot G47. 33 OBSTRUCTIVE SLEEP APNEA (ADULT) (PEDIATR 12/15/2016 ELISE RIDER MD Ot I10 ESSENTIAL (PRIMARY) HYPERTENSION 12/15/2016 ELISE RIDER MD, Ot I25. 10 ATHSCL HEART DISEASE OF [place] CORONARY 12/15/2016 ELISE RIDER MD, Ot I47. 2 VENTRICULAR TACHYCARDIA 12/15/2016 ELISE RIDER MD, Ot I48. 0 PAROXYSMAL ATRIAL FIBRILLATION 12/15/2016 ELISE RIDER MD, Ot I48. 92 UNSPECIFIED ATRIAL FLUTTER 12/15/2016 ELISE RIDER MD, Ot I49. 5 SICK SINUS SYNDROME 12/15/2016 ELISE RIDER MD, Ot J44. 9 CHRONIC OBSTRUCTIVE PULMONARY DISEASE, U 12/15/2016 ELISE RIDER MD, Ot K21. 9 GASTRO-ESOPHAGEAL REFLUX DISEASE WITHOUT 12/15/2016 ELISE RIDER MD, Ot K57. 90 DVRTCLOS OF INTEST, PART UNSP, W/O PERF 12/15/2016 ELISE RIDER MD, Ot Z79. 01 [facility] (CURRENT) USE OF ANTICOAGULANT 12/15/2016 ELISE RIDER MD, Ot Z79.899 OTHER [facility] (CURRENT) DRUG THERAPY 01/24/2017 Ot 272.4 HYPE RLIPIDEMIA NEC/NOS 01/24/2017 Ot 278.00 OBE SITY, NOS 01/24/2017 Ot 296.22 DEP RESSIVE DISORDER-MOD 01/24/2017 Ot 401.9 HYPE RTENSION NOS 01/24/2017 Ot 427.1 PARO X VENTRIC TACHYCARD 01/24/2017 Ot 785.1 PALP ITATIONS 01/24/2017 SHAYNA DHILLON MD Ot Z01.81 8 ENCOUNTER FOR OTHER PREPROCEDURAL EXAMIN 01/24/2017 SHAYNA DHILLON MD, Ot Z86.01 0 PERSONAL HISTORY OF COLONIC POLYPS 01/24/2017 SHAYNA DHILLON MD, Ot Z87.19 PERSONAL HISTORY OF OTHER DISEASES OF TH 01/26/2017 SHAYNA DHILLON MD Ot E78.00 PURE HYPERCHOLESTEROLEMIA, UNSPECIFIED 01/26/2017 SHAYNA DHILLON MD, Ot F32.9 MAJOR DEPRESSIVE DISORDER, SINGLE EPISOD 01/26/2017 SHAYNA DHILLON MD, Ot F41.9 ANXIETY DISORDER, UNSPECIFIED 01/26/2017 SHAYNA DHILLON MD, Ot I10 ESSENTIAL (PRIMARY) HYPERTENSION 01/26/2017 SHAYNA DHILLON MD, Ot I48.91 UNSPECIFIED ATRIAL FIBRILLATION 01/26/2017 SHAYNA DHILLON MD, Ot K21.9 GASTRO-ESOPHAGEAL REFLUX DISEASE WITHOUT 01/26/2017 SHAYNA DHILLON MD, Ot K57.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 01/26/2017 SHAYNA DHILLON MD, Ot K64.1 SECOND DEGREE HEMORRHOIDS 01/26/2017 SHAYNA DHILLON MD, Ot Z09 ENCNTR FOR F/U EXAM AFT TRTMT FOR COND O 01/26/2017 SHAYNA DHILLON MD, Ot Z79.01 [facility] (CURRENT) USE OF ANTICOAGULANT 01/26/2017 SHAYNA DHILLON MD, Ot Z79.89 9 OTHER [facility] (CURRENT) DRUG THERAPY 01/26/2017 SHAYNA DHILLON MD, Ot Z86.01 0 PERSONAL HISTORY OF COLONIC POLYPS 01/26/2017 SHAYNA DHILLON MD, Ot Z86.71 8 PERSONAL HISTORY OF OTHER VENOUS THROMBO 01/26/2017 SHAYNA DHILLON MD, Ot Z87.19 PERSONAL HISTORY OF OTHER DISEASES OF TH 01/26/2017 SHAYNA DHILLON MD, Ot Z95.0 PRESENCE OF CARDIAC PACEMAKER 02/22/2017 COLTHARP CATHIE VANESSA Ot Z12.31 ENCNTR SCREEN MAMMOGRAM FOR MALIGNANT NE 03/16/2017 COLTHCATHIE HESTER DO Ot Z12.31 ENCNTR SCREEN MAMMOGRAM FOR MALIGNANT NE 03/19/2017 ELISE RIDER MD Ot E78. 5 HYPERLIPIDEMIA, UNSPECIFIED 03/19/2017 ELISE RIDER MD Ot I10 ESSENTIAL (PRIMARY) HYPERTENSION 03/19/2017 ELISE RIDER MD, Ot I25. 10 ATHSCL HEART DISEASE OF [place] CORONARY 03/19/2017 ELISE RIDER MD, Ot I48. 91 UNSPECIFIED ATRIAL FIBRILLATION 03/19/2017 ELISE RIDER MD, Ot I48. 92 UNSPECIFIED ATRIAL FLUTTER 03/19/2017 ELISE RIDER MD, Ot I49. 5 SICK SINUS SYNDROME 03/19/2017 ELISE RIDER MD, Ot Z53. 8 PROCEDURE AND TREATMENT NOT CARRIED OUT 03/19/2017 ELISE RIDER MD, Ot Z79. 01 [facility] (CURRENT) USE OF ANTICOAGULANT 03/19/2017 ELISE RIDER MD Ot Z79.899 OTHER [facility]IOLOG[facility] SERVICES MANAGER (CURRENT) DRUG THERAPY 03/19/2017 ELISE RIDER MD Ot Z95. 0 PRESENCE OF CARDIAC PACEMAKER 06/11/2017 Ot V76.12 OTH SCREEN MAMMO- MALIGN NEOPLASM OF [place] 06/11/2017 Ot V76.12 OTH SCREEN MAMMO- MALIGN NEOPLASM OF [place] 06/11/2017 DEYA BLANCO MD Ot 355. 9 MONONEURITIS NOS 06/11/2017 DEYA BLANCO MD Ot 719. 45 JOINT PAIN-PELVIS 06/11/2017 SARAI TOBIAS DO D Ot V72. 84 EXAM PRE-OPERATIVE NOS 06/11/2017 KEKE VINES Ot 272.4 HYPERLIPIDEMIA NEC/NOS 06/11/2017 KEKE VINES Ot 278.00 OBESITY, NOS 06/11/2017 KEKE VINES Ot 401.9 HYPERTENSION NOS 06/11/2017 KEKE VINES Ot 427.1 PAROX VENTRIC TACHYCARD 06/11/2017 KEKE VINES Ot 785.1 PALPITATIONS 06/11/2017 ELISE RIDER MD Ot 272. 4 HYPERLIPIDEMIA NEC/NOS 06/11/2017 ELISE RIDER MD Ot 401. 9 HYPERTENSION NOS 06/11/2017 ELISE RIDER MD Ot 426. 11 ATRIOVENT BLOCK-1ST DEGR 06/11/2017 ELISE RIDER MD Ot 427. 1 PAROX VENTRIC TACHYCARD 06/11/2017 ELISE RIDER MD Ot 427. 69 PREMATURE BEATS NEC 06/11/2017 ELISE RIDER MD Ot 530. 81 ESOPHAGEAL REFLUX 06/11/2017 ELISE RIDER MD Ot V58. 69 OTH MED,LT,CURRENT USE 06/11/2017 DEYA BLANCO MD Ot V76. 12 OTH SCREEN MAMMO-MALIGN NEOPLASM OF [place] 06/11/2017 Ot 272.4 HYPE RLIPIDEMIA NEC/NOS 06/11/2017 Ot 278.00 OBE SITY, NOS 06/11/2017 Ot 296.22 DEP RESSIVE DISORDER-MOD 06/11/2017 Ot 401.9 HYPE RTENSION NOS 06/11/2017 Ot 427.1 PARO X VENTRIC TACHYCARD 06/11/2017 Ot 785.1 PALP ITATIONS 06/11/2017 KEKE VINES Ot 397.0 TRICUSPID VALVE DISEASE 06/11/2017 KEKE VINES Ot 401.9 HYPERTENSION NOS 06/11/2017 KEKE VINSE Ot 424.0 MITRAL VALVE DISORDER 06/11/2017 KEKE VINES Ot 427.1 PAROX VENTRIC TACHYCARD 06/11/2017 KEKE VINES Ot 427.69 PREMATURE BEATS NEC 06/11/2017 KEKE VINES Ot 786.09 RESPIRATORY ABNORM NEC 06/11/2017 DEYA BLANCO MD Ot 789. 00 ABDOMINAL PAIN, UNSPECIFIED SITE 06/11/2017 Ot 789.00 ABD OMINAL PAIN, UNSPECIFIED SITE 06/11/2017 DEYA BLANCO MD Ot V76. 12 OTH SCREEN MAMMO-MALIGN NEOPLASM OF [place] 06/11/2017 YULI SAMPSON DC S Ot 724. 1 PAIN IN THORACIC SPINE 06/11/2017 DEYA BLANCO MD Ot Z12. 31 ENCNTR SCREEN MAMMOGRAM FOR MALIGNANT NE 06/11/2017 KEKE VINES Ot E78.5 HYPERLIPIDEMIA, UNSPECIFIED 06/11/2017 KEKE VINES Ot I10 ESSENTIAL (PRIMARY) HYPERTENSION 06/11/2017 KEKE VINES Ot I47.2 VENTRICULAR TACHYCARDIA 06/11/2017 KEKE VINES Ot I48.0 PAROXYSMAL ATRIAL FIBRILLATION 06/11/2017 ELISE RIDER MD Ot E78. 5 HYPERLIPIDEMIA, UNSPECIFIED 06/11/2017 ELISE RIDER MD Ot I25. 10 ATHSCL HEART DISEASE OF [place] CORONARY 06/11/2017 ELISE RIDER MD Ot I47. 2 VENTRICULAR TACHYCARDIA 06/11/2017 ELISE RIDER MD Ot I48. 0 PAROXYSMAL ATRIAL FIBRILLATION 06/11/2017 ELISE RIDER MD Ot I48. 92 UNSPECIFIED ATRIAL FLUTTER 06/11/2017 ELISE RIDER MD Ot J44. 9 CHRONIC OBSTRUCTIVE PULMONARY DISEASE, U 06/11/2017 ELISE RIDER MD, Ot Z79.899 OTHER RADIOLOGY SERVICES MANAGER (CURRENT) DRUG THERAPY 06/11/2017 ELISE RIDER MD Ot E78. 5 HYPERLIPIDEMIA, UNSPECIFIED 06/11/2017 ELISE RIDER MD Ot I10 ESSENTIAL (PRIMARY) HYPERTENSION 06/11/2017 ELISE RIDER MD Ot I25. 10 ATHSCL HEART DISEASE OF [place] CORONARY 06/11/2017 ELISE RIDER MD Ot I48. 91 UNSPECIFIED ATRIAL FIBRILLATION 06/11/2017 ELISE RIDER MD, Ot I48. 92 UNSPECIFIED ATRIAL FLUTTER 06/11/2017 ELISE RIDER MD, Ot I49. 5 SICK SINUS SYNDROME 06/11/2017 ELISE RIDER MD, Ot Z53. 8 PROCEDURE AND TREATMENT NOT CARRIED OUT 06/11/2017 ELISE RIDER MD Ot Z79. 01 [facility] (CURRENT) USE OF ANTICOAGULANT 06/11/2017 ELISE RIDER MD, Ot Z79.899 OTHER RADIOLOGY SERVICES MANAGER (CURRENT) DRUG THERAPY 06/11/2017 ELISE RIDER MD Ot Z95. 0 PRESENCE OF CARDIAC PACEMAKER 06/11/2017 CATHIE POPE DO Ot Z12.31 ENCNTR SCREEN MAMMOGRAM FOR MALIGNANT NE 07/07/2017 LARERY, TAHIR PSYCHOLOGY ASSOCIATE-C Ot R31 .9 HEMATURIA, UNSPECIFIED 07/07/2017 LARERY, TAHIR PSYCHOLOGY ASSOCIATE-C Ot R31 .9 HEMATURIA, UNSPECIFIED 07/12/2017 LARERY, TAHIR PSYCHOLOGY ASSOCIATE-C Ot R31 .9 HEMATURIA, UNSPECIFIED 07/12/2017 LARERY, TAHIR PSYCHOLOGY ASSOCIATE-C Ot Z51.81 ENCOUNTER FOR THERAPEUTIC DRUG LEVEL MON 07/12/2017 LARERY, TAHIR PSYCHOLOGY ASSOCIATE-C Ot Z79.899 OTHER RADIOLOGY SERVICES MANAGER (CURRENT) DRUG THERAPY 2017 LARERY, TAHIR PSYCHOLOGY ASSOCIATE-C Ot R31 .9 HEMATURIA, UNSPECIFIED 2017 LARERY, TAHIR PSYCHOLOGY ASSOCIATE-C Ot Z51.81 ENCOUNTER FOR THERAPEUTIC DRUG LEVEL MON 2017 LARERY, TAHIR PSYCHOLOGY ASSOCIATE-C Ot Z79.899 OTHER [facility] (CURRENT) DRUG THERAPY 08/27/2017 Ot V76.12 OTH SCREEN MAMMO- MALIGN NEOPLASM OF [place] 08/27/2017 Ot V76.12 OTH SCREEN MAMMO- MALIGN NEOPLASM OF [place] 08/27/2017 FRANCIS KUMARI, DEYA Landeros Ot 355. 9 MONONEURITIS NOS 08/27/2017 DEYA BLANCO MD Ot 719. 45 JOINT PAIN-PELVIS 08/27/2017 SARAI TOBIAS DO Ot V72. 84 EXAM PRE-OPERATIVE NOS 08/27/2017 KEKE VINES Ot 272.4 HYPERLIPIDEMIA NEC/NOS 08/27/2017 KEKE VINES Ot 278.00 OBESITY, NOS 08/27/2017 KEKE VINES Ot 401.9 HYPERTENSION NOS 08/27/2017 KEKE VINES Ot 427.1 PAROX VENTRIC TACHYCARD 08/27/2017 KEKE VINES Ot 785.1 PALPITATIONS 08/27/2017 ELISE RIDER MD Ot 272. 4 HYPERLIPIDEMIA NEC/NOS 08/27/2017 ELISE RIDER MD Ot 401. 9 HYPERTENSION NOS 08/27/2017 ELISE RIDER MD Ot 426. 11 ATRIOVENT BLOCK-1ST DEGR 08/27/2017 ELISE RIDER MD Ot 427. 1 PAROX VENTRIC TACHYCARD 08/27/2017 ELISE RIDER MD Ot 427. 69 PREMATURE BEATS NEC 08/27/2017 ELISE RIDER MD Ot 530. 81 ESOPHAGEAL REFLUX 08/27/2017 ELISE RIDER MD Ot V58. 69 OTH MED,LT,CURRENT USE 08/27/2017 FRANCIS KUMARI, DEYA Landeros Ot V76. 12 OTH SCREEN MAMMO-MALIGN NEOPLASM OF [place] 08/27/2017 Ot 272.4 HYPE RLIPIDEMIA NEC/NOS 08/27/2017 Ot 278.00 OBE SITY, NOS 08/27/2017 Ot 296.22 DEP RESSIVE DISORDER-MOD 08/27/2017 Ot 401.9 HYPE RTENSION NOS 08/27/2017 Ot 427.1 PARO X VENTRIC TACHYCARD 08/27/2017 Ot 785.1 PALP ITATIONS 08/27/2017 KEKE VINES Ot 397.0 TRICUSPID VALVE DISEASE 08/27/2017 KEKE VINES Ot 401.9 HYPERTENSION NOS 08/27/2017 KEKE VINES Ot 424.0 MITRAL VALVE DISORDER 08/27/2017 KEKE VINES Ot 427.1 PAROX VENTRIC TACHYCARD 08/27/2017 KEKE VINES Ot 427.69 PREMATURE BEATS NEC 08/27/2017 KEKE VINES Ot 786.09 RESPIRATORY ABNORM NEC 08/27/2017 FRANCIS KUMARI, DEYA R Ot 789. 00 ABDOMINAL PAIN, UNSPECIFIED SITE 08/27/2017 Ot 789.00 ABD OMINAL PAIN, UNSPECIFIED SITE 08/27/2017 FRANCIS KUMARI, DEYA Landeros Ot V76. 12 OTH SCREEN MAMMO-MALIGN NEOPLASM OF [place] 08/27/2017 CAMILLA NAJERA YULI S Ot 724. 1 PAIN IN THORACIC SPINE 08/27/2017 DEYA BLANCO MD R Ot Z12. 31 ENCNTR SCREEN MAMMOGRAM FOR MALIGNANT NE 08/27/2017 KEKE VINES Ot E78.5 HYPERLIPIDEMIA, UNSPECIFIED 08/27/2017 KEKE VINES Ot I10 ESSENTIAL (PRIMARY) HYPERTENSION 08/27/2017 KEKE VINES Ot I47.2 VENTRICULAR TACHYCARDIA 08/27/2017 KEKE VINES Ot I48.0 PAROXYSMAL ATRIAL FIBRILLATION 08/27/2017 ELISE RIDER MD Ot E78. 5 HYPERLIPIDEMIA, UNSPECIFIED 08/27/2017 ELISE RIDER MD Ot I25. 10 ATHSCL HEART DISEASE OF [place] CORONARY 08/27/2017 ELISE RIDER MD Ot I47. 2 VENTRICULAR TACHYCARDIA 08/27/2017 ELISE RIDER MD Ot I48. 0 PAROXYSMAL ATRIAL FIBRILLATION 08/27/2017 ELISE RIDER MD Ot I48. 92 UNSPECIFIED ATRIAL FLUTTER 08/27/2017 ELISE RIDER MD Ot J44. 9 CHRONIC OBSTRUCTIVE PULMONARY DISEASE, U 08/27/2017 ELISE RIDER MD Ot Z79.899 OTHER RADIOLOGY SERVICES MANAGER (CURRENT) DRUG THERAPY 08/27/2017 ELISE RIDER MD Ot E78. 5 HYPERLIPIDEMIA, UNSPECIFIED 08/27/2017 ELISE RIDER MD, Ot I10 ESSENTIAL (PRIMARY) HYPERTENSION 08/27/2017 ELISE RIDER MD, Ot I25. 10 ATHSCL HEART DISEASE OF [place] CORONARY 08/27/2017 ELISE RIDER MD, Ot I48. 91 UNSPECIFIED ATRIAL FIBRILLATION 08/27/2017 ELISE RIDER MD, Ot I48. 92 UNSPECIFIED ATRIAL FLUTTER 08/27/2017 ELISE RIDER MD, Ot I49. 5 SICK SINUS SYNDROME 08/27/2017 ELISE RIDER MD, Ot Z53. 8 PROCEDURE AND TREATMENT NOT CARRIED OUT 08/27/2017 ELISE RIDER MD, Ot Z79. 01 RADIOLOGY SERVICES MANAGER (CURRENT) USE OF ANTICOAGULANT 08/27/2017 ELISE RIDER MD, Ot Z79.899 OTHER [facility] (CURRENT) DRUG THERAPY 08/27/2017 ELISE RIDER MD, Ot Z95. 0 PRESENCE OF CARDIAC PACEMAKER 08/27/2017 CATHIE POPE DO Ot Z12.31 ENCNTR SCREEN MAMMOGRAM FOR MALIGNANT NE 08/27/2017 TAHIR HERNANDEZ-C Ot R31 .9 HEMATURIA, UNSPECIFIED 08/27/2017 TAHIR HERNANDEZ PSYCHOLOGY ASSOCIATE-C Ot Z51.81 ENCOUNTER FOR THERAPEUTIC DRUG LEVEL MON 08/27/2017 TAHIR HERNANDEZ-C Ot Z79.899 OTHER RADIOLOGY SERVICES MANAGER (CURRENT) DRUG THERAPY 08/28/2017 Ot V76.12 OTH SCREEN MAMMO- MALIGN NEOPLASM OF [place] 08/28/2017 Ot V76.12 OTH SCREEN MAMMO- MALIGN NEOPLASM OF [place] 08/28/2017 DEYA BLANCO MD Ot 355. 9 MONONEURITIS NOS 08/28/2017 DEYA BLANCO MD R Ot 719. 45 JOINT PAIN-PELVIS 08/28/2017 SARAI TOBIAS DO Ot V72. 84 EXAM PRE-OPERATIVE NOS 08/28/2017 KEKE VINES Ot 272.4 HYPERLIPIDEMIA NEC/NOS 08/28/2017 KEKE VINES Ot 278.00 OBESITY, NOS 08/28/2017 KEKE VINES Ot 401.9 HYPERTENSION NOS 08/28/2017 KEKE VINES Ot 427.1 PAROX VENTRIC TACHYCARD 08/28/2017 KEKE VINES Ot 785.1 PALPITATIONS 08/28/2017 ELISE RIDER MD Ot 272. 4 HYPERLIPIDEMIA NEC/NOS 08/28/2017 ELISE RIDER MD Ot 401. 9 HYPERTENSION NOS 08/28/2017 ELISE RIDER MD Ot 426. 11 ATRIOVENT BLOCK-1ST DEGR 08/28/2017 ELISE RIDER MD Ot 427. 1 PAROX VENTRIC TACHYCARD 08/28/2017 ELISE RIDER MD Ot 427. 69 PREMATURE BEATS NEC 08/28/2017 ELISE RIDER MD Ot 530. 81 ESOPHAGEAL REFLUX 08/28/2017 ELISE RIDER MD Ot V58. 69 OT MED,LT,CURRENT USE 08/28/2017 FRANCIS KUMARI, DEYA Landeros Ot V76. 12 OTH SCREEN MAMMO-MALIGN NEOPLASM OF [place] 08/28/2017 Ot 272.4 HYPE RLIPIDEMIA NEC/NOS 08/28/2017 Ot 278.00 OBE SITY, NOS 08/28/2017 Ot 296.22 DEP RESSIVE DISORDER-MOD 08/28/2017 Ot 401.9 HYPE RTENSION NOS 08/28/2017 Ot 427.1 PARO X VENTRIC TACHYCARD 08/28/2017 Ot 785.1 PALP ITATIONS 08/28/2017 KEKE VINES Ot 397.0 TRICUSPID VALVE DISEASE 08/28/2017 KEKE VINES Ot 401.9 HYPERTENSION NOS 08/28/2017 KEKE VINES Ot 424.0 MITRAL VALVE DISORDER 08/28/2017 KEKE VINES Ot 427.1 PAROX VENTRIC TACHYCARD 08/28/2017 KEKE VINES Ot 427.69 PREMATURE BEATS NEC 08/28/2017 KEKE VINES Ot 786.09 RESPIRATORY ABNORM NEC 08/28/2017 DEYA BLANCO MD Ot 789. 00 ABDOMINAL PAIN, UNSPECIFIED SITE 08/28/2017 Ot 789.00 ABD OMINAL PAIN, UNSPECIFIED SITE 08/28/2017 DEYA BLANCO MD Ot V76. 12 OTH SCREEN MAMMO-MALIGN NEOPLASM OF [place] 08/28/2017 YULI SAMPSON DC S Ot 724. 1 PAIN IN THORACIC SPINE 08/28/2017 FRANCIS KUMARI, DEYA R Ot Z12. 31 ENCNTR SCREEN MAMMOGRAM FOR MALIGNANT NE 08/28/2017 KEKE VINES Ot E78.5 HYPERLIPIDEMIA, UNSPECIFIED 08/28/2017 KEKE VINES Ot I10 ESSENTIAL (PRIMARY) HYPERTENSION 08/28/2017 KEKE VINES Ot I47.2 VENTRICULAR TACHYCARDIA 08/28/2017 KEKE VINES Ot I48.0 PAROXYSMAL ATRIAL FIBRILLATION 08/28/2017 ELISE RIDER MD Ot E78. 5 HYPERLIPIDEMIA, UNSPECIFIED 08/28/2017 ELISE RIDER MD Ot I25. 10 ATHSCL HEART DISEASE OF [place] CORONARY 08/28/2017 ELISE RIDER MD Ot I47. 2 VENTRICULAR TACHYCARDIA 08/28/2017 ELISE RIDER MD Ot I48. 0 PAROXYSMAL ATRIAL FIBRILLATION 08/28/2017 ELISE RIDER MD Ot I48. 92 UNSPECIFIED ATRIAL FLUTTER 08/28/2017 ELISE RIDER MD Ot J44. 9 CHRONIC OBSTRUCTIVE PULMONARY DISEASE, U 08/28/2017 ELISE RIDER MD Ot Z79.899 OTHER RADIOLOGY SERVICES MANAGER (CURRENT) DRUG THERAPY 08/28/2017 ELISE RIDER MD Ot E78. 5 HYPERLIPIDEMIA, UNSPECIFIED 08/28/2017 ELISE RIDER MD Ot I10 ESSENTIAL (PRIMARY) HYPERTENSION 08/28/2017 ELISE RIDER MD Ot I25. 10 ATHSCL HEART DISEASE OF [place] CORONARY 08/28/2017 ELISE RIDER MD Ot I48. 91 UNSPECIFIED ATRIAL FIBRILLATION 08/28/2017 ELISE RIDER MD Ot I48. 92 UNSPECIFIED ATRIAL FLUTTER 08/28/2017 ELISE RIDER MD Ot I49. 5 SICK SINUS SYNDROME 08/28/2017 ELISE RIDER MD Ot Z53. 8 PROCEDURE AND TREATMENT NOT CARRIED OUT 08/28/2017 ELISE RIDER MD Ot Z79. 01 RADIOLOGY SERVICES MANAGER (CURRENT) USE OF ANTICOAGULANT 08/28/2017 ELISE RIDER MD Ot Z79.899 OTHER RADIOLOGY SERVICES MANAGER (CURRENT) DRUG THERAPY 08/28/2017 ELISE RIDER MD Ot Z95. 0 PRESENCE OF CARDIAC PACEMAKER 08/28/2017 CATHIE POPE DO Ot Z12.31 ENCNTR SCREEN MAMMOGRAM FOR MALIGNANT NE 08/28/2017 TAHIR HERNANDEZ-C Ot R31 .9 HEMATURIA, UNSPECIFIED 08/28/2017 TAHIR HERNANDEZ-C Ot Z51.81 ENCOUNTER FOR THERAPEUTIC DRUG LEVEL MON 08/28/2017 TAHIR HERNANDEZP-C Ot Z79.899 OTHER RADIOLOGY SERVICES MANAGER (CURRENT) DRUG THERAPY 09/04/2017 KEKE VINES Ot E78.2 MIXED HYPERLIPIDEMIA 09/04/2017 KEKE VINES Ot I10 ESSENTIAL (PRIMARY) HYPERTENSION 09/04/2017 KEKE VINES Ot I48.0 PAROXYSMAL ATRIAL FIBRILLATION 09/04/2017 KEKE VINES Ot R06.02 SHORTNESS OF BREATH 09/12/2017 ELISE RIDER MD Ot E78. 5 HYPERLIPIDEMIA, UNSPECIFIED 09/12/2017 ELISE RIDER MD Ot F32. 9 MAJOR DEPRESSIVE DISORDER, SINGLE EPISOD 09/12/2017 ELISE RIDER MD Ot I10 ESSENTIAL (PRIMARY) HYPERTENSION 09/12/2017 ELISE RIDER MD, Ot I25. 10 ATHSCL HEART DISEASE OF [place] CORONARY 09/12/2017 ELISE RIDER MD Ot I48. 91 UNSPECIFIED ATRIAL FIBRILLATION 09/12/2017 ELISE RIDER MD Ot J44. 9 CHRONIC OBSTRUCTIVE PULMONARY DISEASE, U 09/12/2017 ELISE RIDER MD Ot K21. 9 GASTRO-ESOPHAGEAL REFLUX DISEASE WITHOUT 09/12/2017 ELISE RIDER MD Ot R07. 9 CHEST PAIN, UNSPECIFIED 09/12/2017 ELISE RIDER MD Ot Z79. 01 [facility] (CURRENT) USE OF ANTICOAGULANT 09/12/2017 ELISE RIDER MD Ot Z79.899 OTHER [facility] (CURRENT) DRUG THERAPY 09/17/2017 ELISE RIDER MD Ot E78. 5 HYPERLIPIDEMIA, UNSPECIFIED 09/17/2017 ELISE RIDER MD Ot F32. 9 MAJOR DEPRESSIVE DISORDER, SINGLE EPISOD 09/17/2017 ADRY MD, BASHAR J Ot I10 ESSENTIAL (PRIMARY) HYPERTENSION 09/17/2017 ELISE RIDER MD Ot I25. 10 ATHSCL HEART DISEASE OF [place] CORONARY 09/17/2017 ELISE RIDER MD Ot I48. 91 UNSPECIFIED ATRIAL FIBRILLATION 09/17/2017 ELISE RIDER MD J Ot J44. 9 CHRONIC OBSTRUCTIVE PULMONARY DISEASE, U 09/17/2017 ELISE RIDER MD J Ot K21. 9 GASTRO-ESOPHAGEAL REFLUX DISEASE WITHOUT 09/17/2017 ELISE RIDER MD J Ot R07. 9 CHEST PAIN, UNSPECIFIED 09/17/2017 ELISE RIDER MD J Ot Z79. 01 RADIOLOGY SERVICES MANAGER (CURRENT) USE OF ANTICOAGULANT 09/17/2017 ELISE RIDER MD Ot Z79.899 OTHER [facility] (CURRENT) DRUG THERAPY 09/17/2017 ELISE RIDER MD Ot E78. 5 HYPERLIPIDEMIA, UNSPECIFIED 09/17/2017 ELISE RIDER MD Ot F32. 9 MAJOR DEPRESSIVE DISORDER, SINGLE EPISOD 09/17/2017 ELISE RIDER MD Ot I10 ESSENTIAL (PRIMARY) HYPERTENSION 09/17/2017 ELISE RIDER MD Ot I25. 10 ATHSCL HEART DISEASE OF [place] CORONARY 09/17/2017 ELISE RIDER MD Ot I48. 91 UNSPECIFIED ATRIAL FIBRILLATION 09/17/2017 ELISE RIDER MD Ot J44. 9 CHRONIC OBSTRUCTIVE PULMONARY DISEASE, U 09/17/2017 ELISE RIDER MD Ot K21. 9 GASTRO-ESOPHAGEAL REFLUX DISEASE WITHOUT 09/17/2017 ELISE RIDER MD Ot R07. 9 CHEST PAIN, UNSPECIFIED 09/17/2017 ELISE RIDER MD Ot Z79. 01 [facility] (CURRENT) USE OF ANTICOAGULANT 09/17/2017 ELISE RIDER MD Ot Z79.899 OTHER RADIOLOGY SERVICES MANAGER (CURRENT) DRUG THERAPY 09/25/2017 KEKE VINES Ot E78.2 MIXED HYPERLIPIDEMIA 09/25/2017 KEKE VINES Ot I10 ESSENTIAL (PRIMARY) HYPERTENSION 09/25/2017 KEKE VINES Ot I48.0 PAROXYSMAL ATRIAL FIBRILLATION 09/25/2017 KEKE VINES Ot R06.02 SHORTNESS OF BREATH 09/26/2017 DEYA BLANCO MD Ot K57. 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 09/27/2017 KKEE VINES Ot E78.5 HYPERLIPIDEMIA, UNSPECIFIED 09/27/2017 KEKE VINES Ot I08.1 RHEUMATIC DISORDERS OF BOTH MITRAL AND T 09/27/2017 KEKE VINES Ot I10 ESSENTIAL (PRIMARY) HYPERTENSION 09/27/2017 KEKE VINES Ot I48.91 UNSPECIFIED ATRIAL FIBRILLATION 09/27/2017 KEKE VINES Ot R06.02 SHORTNESS OF BREATH 10/17/2017 Ot V76.12 OTH SCREEN MAMMO- MALIGN NEOPLASM OF [place] 10/17/2017 DEYA BLANCO MD Ot 355. 9 MONONEURITIS NOS 10/17/2017 DEYA BLANCO MD Ot 719. 45 JOINT PAIN-PELVIS 10/17/2017 SARAI TOBIAS DO Ot V72. 84 EXAM PRE-OPERATIVE NOS 10/17/2017 KEKE VINES Ot 272.4 HYPERLIPIDEMIA NEC/NOS 10/17/2017 KEKE VINES Ot 278.00 OBESITY, NOS 10/17/2017 KEKE VINES Ot 401.9 HYPERTENSION NOS 10/17/2017 KEKE VINES Ot 427.1 PAROX VENTRIC TACHYCARD 10/17/2017 KEKE VINES Ot 785.1 PALPITATIONS 10/17/2017 ELISE RIDER MD Ot 272. 4 HYPERLIPIDEMIA NEC/NOS 10/17/2017 ELISE RIDER MD Ot 401. 9 HYPERTENSION NOS 10/17/2017 ELISE RIDER MD Ot 426. 11 ATRIOVENT BLOCK-1ST DEGR 10/17/2017 ELISE RIDER MD Ot 427. 1 PAROX VENTRIC TACHYCARD 10/17/2017 ELISE RIDER MD Ot 427. 69 PREMATURE BEATS NEC 10/17/2017 ELISE RIDER MD Ot 530. 81 ESOPHAGEAL REFLUX 10/17/2017 ELISE RIDER MD Ot V58. 69 OT MED,LT,CURRENT USE 10/17/2017 DEYA BLANCO MD Ot V76. 12 OTH SCREEN MAMMO-MALIGN NEOPLASM OF [place] 10/17/2017 Ot 272.4 HYPE RLIPIDEMIA NEC/NOS 10/17/2017 Ot 278.00 OBE SITY, NOS 10/17/2017 Ot 296.22 DEP RESSIVE DISORDER-MOD 10/17/2017 Ot 401.9 HYPE RTENSION NOS 10/17/2017 Ot 427.1 PARO X VENTRIC TACHYCARD 10/17/2017 Ot 785.1 PALP ITATIONS 10/17/2017 KEKE VINES Ot 397.0 TRICUSPID VALVE DISEASE 10/17/2017 KEKE VINES Ot 401.9 HYPERTENSION NOS 10/17/2017 KEKE VINES Ot 424.0 MITRAL VALVE DISORDER 10/17/2017 KEKE VINES Ot 427.1 PAROX VENTRIC TACHYCARD 10/17/2017 KEKE VINES Ot 427.69 PREMATURE BEATS NEC 10/17/2017 KEKE VINES Ot 786.09 RESPIRATORY ABNORM NEC 10/17/2017 DEYA BLANCO MD Ot 789. 00 ABDOMINAL PAIN, UNSPECIFIED SITE 10/17/2017 Ot 789.00 ABD OMINAL PAIN, UNSPECIFIED SITE 10/17/2017 FRANCIS KUMARI, DEYA Landeros Ot V76. 12 OTH SCREEN MAMMO-MALIGN NEOPLASM OF [place] 10/17/2017 LONG DC, YULI S Ot 724. 1 PAIN IN THORACIC SPINE 10/17/2017 DEYA BLANCO MD Ot Z12. 31 ENCNTR SCREEN MAMMOGRAM FOR MALIGNANT NE 10/17/2017 KEKE VINES Ot E78.5 HYPERLIPIDEMIA, UNSPECIFIED 10/17/2017 KEKE VINES Ot I10 ESSENTIAL (PRIMARY) HYPERTENSION 10/17/2017 KEKE VINES Ot I47.2 VENTRICULAR TACHYCARDIA 10/17/2017 KEKE VINES Ot I48.0 PAROXYSMAL ATRIAL FIBRILLATION 10/17/2017 ELISE RIDER MD Ot E78. 5 HYPERLIPIDEMIA, UNSPECIFIED 10/17/2017 ELISE RIDER MD Ot I25. 10 ATHSCL HEART DISEASE OF [place] CORONARY 10/17/2017 ELISE RIDER MD Ot I47. 2 VENTRICULAR TACHYCARDIA 10/17/2017 ELISE RIDER MD Ot I48. 0 PAROXYSMAL ATRIAL FIBRILLATION 10/17/2017 ELISE RIDER MD Ot I48. 92 UNSPECIFIED ATRIAL FLUTTER 10/17/2017 ELISE RIDER MD Ot J44. 9 CHRONIC OBSTRUCTIVE PULMONARY DISEASE, U 10/17/2017 ELISE RIDER MD Ot Z79.899 OTHER [facility] (CURRENT) DRUG THERAPY 10/17/2017 ELISE RIDER MD Ot E78. 5 HYPERLIPIDEMIA, UNSPECIFIED 10/17/2017 ELISE RIDER MD Ot I10 ESSENTIAL (PRIMARY) HYPERTENSION 10/17/2017 ELISE RIDER MD Ot I25. 10 ATHSCL HEART DISEASE OF [place] CORONARY 10/17/2017 ELISE RIDER MD Ot I48. 91 UNSPECIFIED ATRIAL FIBRILLATION 10/17/2017 ELISE RIDER MD, Ot I48. 92 UNSPECIFIED ATRIAL FLUTTER 10/17/2017 ELISE RIDER MD Ot I49. 5 SICK SINUS SYNDROME 10/17/2017 ELISE RIDER MD Ot Z53. 8 PROCEDURE AND TREATMENT NOT CARRIED OUT 10/17/2017 ELISE RIDER MD, Ot Z79. 01 RADIOLOGY SERVICES MANAGER (CURRENT) USE OF ANTICOAGULANT 10/17/2017 ELISE RIDER MD, Ot Z79.899 OTHER [facility] (CURRENT) DRUG THERAPY 10/17/2017 ELISE RIDER MD Ot Z95. 0 PRESENCE OF CARDIAC PACEMAKER 10/17/2017 CATHIE POPE DO Ot Z12.31 ENCNTR SCREEN MAMMOGRAM FOR MALIGNANT NE 10/17/2017 KEKE VINES Ot E78.5 HYPERLIPIDEMIA, UNSPECIFIED 10/17/2017 KEKE VINES Ot I08.1 RHEUMATIC DISORDERS OF BOTH MITRAL AND T 10/17/2017 KEKE VINES Ot I10 ESSENTIAL (PRIMARY) HYPERTENSION 10/17/2017 KEKE VINES Ot I48.91 UNSPECIFIED ATRIAL FIBRILLATION 10/17/2017 KEKE VINES Ot R06.02 SHORTNESS OF BREATH 10/17/2017 KEKE VINES Ot E78.2 MIXED HYPERLIPIDEMIA 10/17/2017 KEKE VINES Ot I10 ESSENTIAL (PRIMARY) HYPERTENSION 10/17/2017 KEKE VINES Ot I48.0 PAROXYSMAL ATRIAL FIBRILLATION 10/17/2017 KEKE VINES Ot R06.02 SHORTNESS OF BREATH 10/17/2017 MARY TAHIR PSYCHOLOGY ASSOCIATE-C Ot R31 .9 HEMATURIA, UNSPECIFIED 10/17/2017 MARY TAHIR PSYCHOLOGY ASSOCIATE-C Ot Z51.81 ENCOUNTER FOR THERAPEUTIC DRUG LEVEL MON 10/17/2017 MARY TAHIR PSYCHOLOGY ASSOCIATE-C Ot Z79.899 OTHER RADIOLOGY SERVICES MANAGER (CURRENT) DRUG THERAPY 10/17/2017 FRANCIS KUMARI, DEYA Landeros Ot K57. 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 10/17/2017 Ot V76.12 OTH SCREEN MAMMO- MALIGN NEOPLASM OF [place] 10/17/2017 DEYA BLANCO MD Ot 355. 9 MONONEURITIS NOS 10/17/2017 DEYA BLANCO MD Ot 719. 45 JOINT PAIN-PELVIS 10/17/2017 MICHELINE DO, SARAI D Ot V72. 84 EXAM PRE-OPERATIVE NOS 10/17/2017 KEKE VINES Ot 272.4 HYPERLIPIDEMIA NEC/NOS 10/17/2017 KEKE VINES Ot 278.00 OBESITY, NOS 10/17/2017 KEKE VINES Ot 401.9 HYPERTENSION NOS 10/17/2017 KEKE VINES Ot 427.1 PAROX VENTRIC TACHYCARD 10/17/2017 KEKE VINES Ot 785.1 PALPITATIONS 10/17/2017 ELISE RIDER MD Ot 272. 4 HYPERLIPIDEMIA NEC/NOS 10/17/2017 ELISE RIDER MD Ot 401. 9 HYPERTENSION NOS 10/17/2017 ELISE RIDER MD Ot 426. 11 ATRIOVENT BLOCK-1ST DEGR 10/17/2017 ELISE RIDER MD Ot 427. 1 PAROX VENTRIC TACHYCARD 10/17/2017 ELISE RIDER MD Ot 427. 69 PREMATURE BEATS NEC 10/17/2017 ELISE RIDER MD Ot 530. 81 ESOPHAGEAL REFLUX 10/17/2017 ELISE RIDER MD Ot V58. 69 OTH MED,LT,CURRENT USE 10/17/2017 FRANCIS KUMARI, DEYA Landeros Ot V76. 12 OTH SCREEN MAMMO-MALIGN NEOPLASM OF [place] 10/17/2017 Ot 272.4 HYPE RLIPIDEMIA NEC/NOS 10/17/2017 Ot 278.00 OBE SITY, NOS 10/17/2017 Ot 296.22 DEP RESSIVE DISORDER-MOD 10/17/2017 Ot 401.9 HYPE RTENSION NOS 10/17/2017 Ot 427.1 PARO X VENTRIC TACHYCARD 10/17/2017 Ot 785.1 PALP ITATIONS 10/17/2017 KEKE VINES Ot 397.0 TRICUSPID VALVE DISEASE 10/17/2017 KEKE VINES Ot 401.9 HYPERTENSION NOS 10/17/2017 KEKE VINES Ot 424.0 MITRAL VALVE DISORDER 10/17/2017 KEKE VINES Ot 427.1 PAROX VENTRIC TACHYCARD 10/17/2017 KEKE VINES Ot 427.69 PREMATURE BEATS NEC 10/17/2017 KEKE VINES Ot 786.09 RESPIRATORY ABNORM NEC 10/17/2017 FRANCIS KUMARI, DEYA Landeros Ot 789. 00 ABDOMINAL PAIN, UNSPECIFIED SITE 10/17/2017 Ot 789.00 ABD OMINAL PAIN, UNSPECIFIED SITE 10/17/2017 DEYA BLANCO MD Ot V76. 12 OTH SCREEN MAMMO-MALIGN NEOPLASM OF [place] 10/17/2017 CAMILLA DC, YULI S Ot 724. 1 PAIN IN THORACIC SPINE 10/17/2017 FRANCIS KUMARI, DEYA Landeros Ot Z12. 31 ENCNTR SCREEN MAMMOGRAM FOR MALIGNANT NE 10/17/2017 KEKE VINES Ot E78.5 HYPERLIPIDEMIA, UNSPECIFIED 10/17/2017 KKEE VINES Ot I10 ESSENTIAL (PRIMARY) HYPERTENSION 10/17/2017 KEKE VINES Ot I47.2 VENTRICULAR TACHYCARDIA 10/17/2017 KEKE VINES Ot I48.0 PAROXYSMAL ATRIAL FIBRILLATION 10/17/2017 ELISE RIDER MD Ot E78. 5 HYPERLIPIDEMIA, UNSPECIFIED 10/17/2017 ELISE RIDER MD Ot I25. 10 ATHSCL HEART DISEASE OF [place] CORONARY 10/17/2017 ELISE RIDER MD Ot I47. 2 VENTRICULAR TACHYCARDIA 10/17/2017 ELISE RIDER MD Ot I48. 0 PAROXYSMAL ATRIAL FIBRILLATION 10/17/2017 ELISE RIDER MD Ot I48. 92 UNSPECIFIED ATRIAL FLUTTER 10/17/2017 ELISE RIDER MD Ot J44. 9 CHRONIC OBSTRUCTIVE PULMONARY DISEASE, U 10/17/2017 ELISE RIDER MD Ot Z79.899 OTHER [facility] (CURRENT) DRUG THERAPY 10/17/2017 ELISE RIDER MD Ot E78. 5 HYPERLIPIDEMIA, UNSPECIFIED 10/17/2017 ELISE RIDER MD Ot I10 ESSENTIAL (PRIMARY) HYPERTENSION 10/17/2017 ELISE RIDER MD Ot I25. 10 ATHSCL HEART DISEASE OF [place] CORONARY 10/17/2017 ELISE RIDER MD Ot I48. 91 UNSPECIFIED ATRIAL FIBRILLATION 10/17/2017 ELISE RIDER MD Ot I48. 92 UNSPECIFIED ATRIAL FLUTTER 10/17/2017 ELISE RIDER MD Ot I49. 5 SICK SINUS SYNDROME 10/17/2017 ELISE RIDER MD Ot Z53. 8 PROCEDURE AND TREATMENT NOT CARRIED OUT 10/17/2017 ELISE RIDER MD Ot Z79. 01 RADIOLOGY SERVICES MANAGER (CURRENT) USE OF ANTICOAGULANT 10/17/2017 ELISE RIDER MD, Ot Z79.899 OTHER RADIOLOGY SERVICES MANAGER (CURRENT) DRUG THERAPY 10/17/2017 ELISE RIDER MD Ot Z95. 0 PRESENCE OF CARDIAC PACEMAKER 10/17/2017 CATHIE POPE DO A Ot Z12.31 ENCNTR SCREEN MAMMOGRAM FOR MALIGNANT NE 10/17/2017 KEKE VINES Ot E78.5 HYPERLIPIDEMIA, UNSPECIFIED 10/17/2017 KEKE VINES Ot I08.1 RHEUMATIC DISORDERS OF BOTH [place] AND T 10/17/2017 KEKE VINES Ot I10 ESSENTIAL (PRIMARY) HYPERTENSION 10/17/2017 KEKE VINES Ot I48.91 UNSPECIFIED ATRIAL FIBRILLATION 10/17/2017 KEKE VINES Ot R06.02 SHORTNESS OF BREATH 10/17/2017 KEKE VINES Ot E78.2 MIXED HYPERLIPIDEMIA 10/17/2017 KEKE VINES Ot I10 ESSENTIAL (PRIMARY) HYPERTENSION 10/17/2017 KEKE VINES Ot I48.0 PAROXYSMAL ATRIAL FIBRILLATION 10/17/2017 KEKE VINES Ot R06.02 SHORTNESS OF BREATH 10/17/2017 TAHIR HERNANDEZ PSYCHOLOGY ASSOCIATE-C Ot R31 .9 HEMATURIA, UNSPECIFIED 10/17/2017 MARY TAHIR PSYCHOLOGY ASSOCIATE-C Ot Z51.81 ENCOUNTER FOR THERAPEUTIC DRUG LEVEL MON 10/17/2017 TAHIR HERNANDEZ PSYCHOLOGY ASSOCIATE-C Ot Z79.899 OTHER RADIOLOGY SERVICES MANAGER (CURRENT) DRUG THERAPY 10/17/2017 FRANCIS KUMARI, DEYA Landeros Ot K57. 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 10/17/2017 Ot V76.12 OTH SCREEN MAMMO- MALIGN NEOPLASM OF [place] 10/17/2017 DEYA BLANCO MD Ot 355. 9 MONONEURITIS NOS 10/17/2017 DEYA BLANCO MD Ot 719. 45 JOINT PAIN-PELVIS 10/17/2017 SARAI TOBIAS DO Ot V72. 84 EXAM PRE-OPERATIVE NOS 10/17/2017 KEKE VINES Ot 272.4 HYPERLIPIDEMIA NEC/NOS 10/17/2017 KEKE VINES Ot 278.00 OBESITY, NOS 10/17/2017 KEKE VINES Ot 401.9 HYPERTENSION NOS 10/17/2017 KEKE VINES Ot 427.1 PAROX VENTRIC TACHYCARD 10/17/2017 KEKE VINES Ot 785.1 PALPITATIONS 10/17/2017 ELISE RIDER MD Ot 272. 4 HYPERLIPIDEMIA NEC/NOS 10/17/2017 ELISE RIDER MD Ot 401. 9 HYPERTENSION NOS 10/17/2017 ELISE RIDER MD Ot 426. 11 ATRIOVENT BLOCK-1ST DEGR 10/17/2017 ELISE RIDER MD Ot 427. 1 PAROX VENTRIC TACHYCARD 10/17/2017 ELISE RIDER MD Ot 427. 69 PREMATURE BEATS NEC 10/17/2017 ELISE RIDER MD Ot 530. 81 ESOPHAGEAL REFLUX 10/17/2017 ELISE RIDER MD Ot V58. 69 OTH MED,LT,CURRENT USE 10/17/2017 DEYA BLANCO MD Ot V76. 12 OTH SCREEN MAMMO-MALIGN NEOPLASM OF [place] 10/17/2017 Ot 272.4 HYPE RLIPIDEMIA NEC/NOS 10/17/2017 Ot 278.00 OBE SITY, NOS 10/17/2017 Ot 296.22 DEP RESSIVE DISORDER-MOD 10/17/2017 Ot 401.9 HYPE RTENSION NOS 10/17/2017 Ot 427.1 PARO X VENTRIC TACHYCARD 10/17/2017 Ot 785.1 PALP ITATIONS 10/17/2017 KEKE VINES Ot 397.0 TRICUSPID VALVE DISEASE 10/17/2017 KEKE VINES Ot 401.9 HYPERTENSION NOS 10/17/2017 KEKE VINES Ot 424.0 MITRAL VALVE DISORDER 10/17/2017 KEKE VINES Ot 427.1 PAROX VENTRIC TACHYCARD 10/17/2017 KEKE VINES Ot 427.69 PREMATURE BEATS NEC 10/17/2017 KEKE VINES Ot 786.09 RESPIRATORY ABNORM NEC 10/17/2017 DEYA BLANCO MD Ot 789. 00 ABDOMINAL PAIN, UNSPECIFIED SITE 10/17/2017 Ot 789.00 ABD OMINAL PAIN, UNSPECIFIED SITE 10/17/2017 DEYA BLANCO MD Ot V76. 12 OTH SCREEN MAMMO-MALIGN NEOPLASM OF [place] 10/17/2017 LONG DC, YULI S Ot 724. 1 PAIN IN THORACIC SPINE 10/17/2017 DEYA BLANCO MD Ot Z12. 31 ENCNTR SCREEN MAMMOGRAM FOR MALIGNANT NE 10/17/2017 KEKE VINES Ot E78.5 HYPERLIPIDEMIA, UNSPECIFIED 10/17/2017 KEKE VINES Ot I10 ESSENTIAL (PRIMARY) HYPERTENSION 10/17/2017 KEKE VINES Ot I47.2 VENTRICULAR TACHYCARDIA 10/17/2017 KEKE VINES Ot I48.0 PAROXYSMAL ATRIAL FIBRILLATION 10/17/2017 ELISE RIDER MD Ot E78. 5 HYPERLIPIDEMIA, UNSPECIFIED 10/17/2017 ELISE RIDER MD Ot I25. 10 ATHSCL HEART DISEASE OF [place] CORONARY 10/17/2017 ELISE RIDER MD Ot I47. 2 VENTRICULAR TACHYCARDIA 10/17/2017 ELISE RIDER MD Ot I48. 0 PAROXYSMAL ATRIAL FIBRILLATION 10/17/2017 ELISE RIDER MD Ot I48. 92 UNSPECIFIED ATRIAL FLUTTER 10/17/2017 ELISE RIDER MD Ot J44. 9 CHRONIC OBSTRUCTIVE PULMONARY DISEASE, U 10/17/2017 ELISE RIDER MD Ot Z79.899 OTHER RADIOLOGY SERVICES MANAGER (CURRENT) DRUG THERAPY 10/17/2017 ELISE RIDER MD Ot E78. 5 HYPERLIPIDEMIA, UNSPECIFIED 10/17/2017 ELISE RIDER MD Ot I10 ESSENTIAL (PRIMARY) HYPERTENSION 10/17/2017 ELISE RIDER MD Ot I25. 10 ATHSCL HEART DISEASE OF [place] CORONARY 10/17/2017 ELISE RIDER MD Ot I48. 91 UNSPECIFIED ATRIAL FIBRILLATION 10/17/2017 ELISE RIDER MD Ot I48. 92 UNSPECIFIED ATRIAL FLUTTER 10/17/2017 ELISE RIDER MD Ot I49. 5 SICK SINUS SYNDROME 10/17/2017 ELISE RIDER MD Ot Z53. 8 PROCEDURE AND TREATMENT NOT CARRIED OUT 10/17/2017 ELISE RIDER MD Ot Z79. 01 [facility] (CURRENT) USE OF ANTICOAGULANT 10/17/2017 ELISE RIDER MD Ot Z79.899 OTHER RADIOLOGY SERVICES MANAGER (CURRENT) DRUG THERAPY 10/17/2017 ELISE RIDER MD Ot Z95. 0 PRESENCE OF CARDIAC PACEMAKER 10/17/2017 CATHIE POPE DO Ot Z12.31 ENCNTR SCREEN MAMMOGRAM FOR MALIGNANT NE 10/17/2017 KEKE VINES Ot E78.5 HYPERLIPIDEMIA, UNSPECIFIED 10/17/2017 KEKE IVNES Ot I08.1 RHEUMATIC DISORDERS OF BOTH MITRAL AND T 10/17/2017 KEKE VINES Ot I10 ESSENTIAL (PRIMARY) HYPERTENSION 10/17/2017 KEKE VINES Ot I48.91 UNSPECIFIED ATRIAL FIBRILLATION 10/17/2017 KEKE VINES Ot R06.02 SHORTNESS OF BREATH 10/17/2017 KEKE VINES Ot E78.2 MIXED HYPERLIPIDEMIA 10/17/2017 KEKE VINES Ot I10 ESSENTIAL (PRIMARY) HYPERTENSION 10/17/2017 KEKE VINES Ot I48.0 PAROXYSMAL ATRIAL FIBRILLATION 10/17/2017 KEKE VINES Ot R06.02 SHORTNESS OF BREATH 10/17/2017 TAHIR HERNANDEZ-C Ot R31 .9 HEMATURIA, UNSPECIFIED 10/17/2017 TAHIR HERNANDEZ PSYCHOLOGY ASSOCIATE-C Ot Z51.81 ENCOUNTER FOR THERAPEUTIC DRUG LEVEL MON 10/17/2017 TAHIR HERNANDEZ-C Ot Z79.899 OTHER RADIOLOGY SERVICES MANAGER (CURRENT) DRUG THERAPY 10/17/2017 DEYA BLANCO MD Ot K57. 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 9 MONONEURITIS NOS 10/19/2017 DEYA BLANCO MD Ot 719. 45 JOINT PAIN-PELVIS 10/19/2017 SARAI TOBIAS DO D Ot V72. 84 EXAM PRE-OPERATIVE NOS 10/19/2017 KEKE VINES Ot 272.4 HYPERLIPIDEMIA NEC/NOS 10/19/2017 KEKE VINES Ot 278.00 OBESITY, NOS 10/19/2017 KEKE VINES Ot 401.9 HYPERTENSION NOS 10/19/2017 KEKE VINES Ot 427.1 PAROX VENTRIC TACHYCARD 10/19/2017 KEKE VINES Ot 785.1 PALPITATIONS 10/19/2017 ELISE RIDER MD Ot 272. 4 HYPERLIPIDEMIA NEC/NOS 10/19/2017 ELISE RIDER MD Ot 401. 9 HYPERTENSION NOS 10/19/2017 ADRY KUMARI, ELISE Sosa Ot 426. 11 ATRIOVENT BLOCK-1ST DEGR 10/19/2017 ELISE RIDER MD Ot 427. 1 PAROX VENTRIC TACHYCARD 10/19/2017 ELISE RIDER MD Ot 427. 69 PREMATURE BEATS NEC 10/19/2017 ELISE RIDER MD Ot 530. 81 ESOPHAGEAL REFLUX 10/19/2017 ELISE RIDER MD Ot V58. 69 OTH MED,LT,CURRENT USE 10/19/2017 DEYA BLANCO MD, Ot V76. 12 OTH SCREEN MAMMO-MALIGN NEOPLASM OF [place] 10/19/2017 Ot 272.4 HYPE RLIPIDEMIA NEC/NOS 10/19/2017 Ot 278.00 OBE SITY, NOS 10/19/2017 Ot 296.22 DEP RESSIVE DISORDER-MOD 10/19/2017 Ot 401.9 HYPE RTENSION NOS 10/19/2017 Ot 427.1 PARO X VENTRIC TACHYCARD 10/19/2017 Ot 785.1 PALP ITATIONS 10/19/2017 KEKE VINES Ot 397.0 TRICUSPID VALVE DISEASE 10/19/2017 KEKE VINES Ot 401.9 HYPERTENSION NOS 10/19/2017 KEKE VINES Ot 424.0 MITRAL VALVE DISORDER 10/19/2017 KEKE VINES Ot 427.1 PAROX VENTRIC TACHYCARD 10/19/2017 KEKE VINES Ot 427.69 PREMATURE BEATS NEC 10/19/2017 KEKE VINES Ot 786.09 RESPIRATORY ABNORM NEC 10/19/2017 DEYA BLANCO MD Ot 789. 00 ABDOMINAL PAIN, UNSPECIFIED SITE 10/19/2017 Ot 789.00 ABD OMINAL PAIN, UNSPECIFIED SITE 10/19/2017 DEYA BLANCO MD Ot V76. 12 OTH SCREEN MAMMO-MALIGN NEOPLASM OF [place] 10/19/2017 CAMILLA NAJERA, YULI S Ot 724. 1 PAIN IN THORACIC SPINE 10/19/2017 DEYA BLANCO MD Ot Z12. 31 ENCNTR SCREEN MAMMOGRAM FOR MALIGNANT NE 10/19/2017 KEKE VINES Ot E78.5 HYPERLIPIDEMIA, UNSPECIFIED 10/19/2017 KEKE VINES Ot I10 ESSENTIAL (PRIMARY) HYPERTENSION 10/19/2017 KEKE VINES Ot I47.2 VENTRICULAR TACHYCARDIA 10/19/2017 KEKE VINES Ot I48.0 PAROXYSMAL ATRIAL FIBRILLATION 10/19/2017 ELISE RIDER MD Ot E78. 5 HYPERLIPIDEMIA, UNSPECIFIED 10/19/2017 ELISE RIDER MD Ot I25. 10 ATHSCL HEART DISEASE OF [place] CORONARY 10/19/2017 ELISE RIDER MD Ot I47. 2 VENTRICULAR TACHYCARDIA 10/19/2017 ELISE RIDER MD Ot I48. 0 PAROXYSMAL ATRIAL FIBRILLATION 10/19/2017 ELISE RIDER MD Ot I48. 92 UNSPECIFIED ATRIAL FLUTTER 10/19/2017 ELISE RIDER MD Ot J44. 9 CHRONIC OBSTRUCTIVE PULMONARY DISEASE, U 10/19/2017 ELISE RIDER MD Ot Z79.899 OTHER [facility] (CURRENT) DRUG THERAPY 10/19/2017 ELISE RIDER MD Ot E78. 5 HYPERLIPIDEMIA, UNSPECIFIED 10/19/2017 ELISE RIDER MD Ot I10 ESSENTIAL (PRIMARY) HYPERTENSION 10/19/2017 ELISE RIDER MD Ot I25. 10 ATHSCL HEART DISEASE OF [place] CORONARY 10/19/2017 ELISE RIDER MD Ot I48. 91 UNSPECIFIED ATRIAL FIBRILLATION 10/19/2017 ELISE RIDER MD Ot I48. 92 UNSPECIFIED ATRIAL FLUTTER 10/19/2017 ELISE RIDER MD Ot I49. 5 SICK SINUS SYNDROME 10/19/2017 ELISE RIDER MD Ot Z53. 8 PROCEDURE AND TREATMENT NOT CARRIED OUT 10/19/2017 ELISE RIDER MD Ot Z79. 01 RADIOLOGY SERVICES MANAGER (CURRENT) USE OF ANTICOAGULANT 10/19/2017 ELISE RIDER MD Ot Z79.899 OTHER [facility] (CURRENT) DRUG THERAPY 10/19/2017 ELISE RIDER MD Ot Z95. 0 PRESENCE OF CARDIAC PACEMAKER 10/19/2017 CATHIE POPE DO Ot Z12.31 ENCNTR SCREEN MAMMOGRAM FOR MALIGNANT NE 10/19/2017 KEKE VINES Ot E78.5 HYPERLIPIDEMIA, UNSPECIFIED 10/19/2017 BENNY JEFF, KEKE Avilez Ot I08.1 RHEUMATIC DISORDERS OF BOTH MITRAL AND T 10/19/2017 BENNY JEFF, KEKE K Ot I10 ESSENTIAL (PRIMARY) HYPERTENSION 10/19/2017 BENNY JEFF, KEKE K Ot I48.91 UNSPECIFIED ATRIAL FIBRILLATION 10/19/2017 BENNY JEFF KEKE K Ot R06.02 SHORTNESS OF BREATH 10/19/2017 BENNY JEFF, KEKE K Ot E78.2 MIXED HYPERLIPIDEMIA 10/19/2017 BENNY JEFF, KEKE Raghav Ot I10 ESSENTIAL (PRIMARY) HYPERTENSION 10/19/2017 BENNY JEFF, KEKE K Ot I48.0 PAROXYSMAL ATRIAL FIBRILLATION 10/19/2017 BENNY JEFF KEKE Raghav Ot R06.02 SHORTNESS OF BREATH 10/19/2017 TAHIR HERNANDEZ PSYCHOLOGY ASSOCIATE-C Ot R31 .9 HEMATURIA, UNSPECIFIED 10/19/2017 BASILIO HERNANDEZA PSYCHOLOGY ASSOCIATE-C Ot Z51.81 ENCOUNTER FOR THERAPEUTIC DRUG LEVEL MON 10/19/2017 TAHIR HERNANDEZ PSYCHOLOGY ASSOCIATE-C Ot Z79.899 OTHER [facility] (CURRENT) DRUG THERAPY 10/19/2017 DEYA BLANCO MD Ot K57. 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 3 TYPICAL ATRIAL FLUTTER 10/23/2017 HORTENSIA KLINE MD Ot Z51. 81 ENCOUNTER FOR THERAPEUTIC DRUG LEVEL MON 10/23/2017 HORTENSIA KLINE MD Ot Z79.899 OTHER [facility] (CURRENT) DRUG THERAPY 10/25/2017 HORTENSIA KLINE MD Ot I48. 3 TYPICAL ATRIAL FLUTTER 10/25/2017 HORTENSIA KLINE MD Ot Z51. 81 ENCOUNTER FOR THERAPEUTIC DRUG LEVEL MON 10/25/2017 HORTENSIA KLINE MD Ot Z79.899 OTHER RADIOLOGY SERVICES MANAGER (CURRENT) DRUG THERAPY 11/07/2017 Ot V76.12 OTH SCREEN MAMMO- MALIGN NEOPLASM OF [place] 11/07/2017 DEYA BLANCO MD Ot 355. 9 MONONEURITIS NOS 11/07/2017 DEYA BLANCO MD Ot 719. 45 JOINT PAIN-PELVIS 11/07/2017 SARAI TOBIAS DO Ot V72. 84 EXAM PRE-OPERATIVE NOS 11/07/2017 KEKE VINES Ot 272.4 HYPERLIPIDEMIA NEC/NOS 11/07/2017 KEKE VINES Ot 278.00 OBESITY, NOS 11/07/2017 KEKE VINES Ot 401.9 HYPERTENSION NOS 11/07/2017 KEKE VINES Ot 427.1 PAROX VENTRIC TACHYCARD 11/07/2017 KEKE VINES Ot 785.1 PALPITATIONS 11/07/2017 ADRY KUMARI, ELISE Sosa Ot 272. 4 HYPERLIPIDEMIA NEC/NOS 11/07/2017 ELISE RIDER MD Ot 401. 9 HYPERTENSION NOS 11/07/2017 ELISE RIDER MD Ot 426. 11 ATRIOVENT BLOCK-1ST DEGR 11/07/2017 ELISE RIDER MD Ot 427. 1 PAROX VENTRIC TACHYCARD 11/07/2017 ADRY KUMARI, ELISE Sosa Ot 427. 69 PREMATURE BEATS NEC 11/07/2017 ADRY KUMARI, ELISE Sosa Ot 530. 81 ESOPHAGEAL REFLUX 11/07/2017 ADRY KUMARI, ELISE Sosa Ot V58. 69 OT MED,LT,CURRENT USE 11/07/2017 FRANCIS KUMARI, DEYA R Ot V76. 12 OTH SCREEN MAMMO-MALIGN NEOPLASM OF [place] 11/07/2017 Ot 272.4 HYPE RLIPIDEMIA NEC/NOS 11/07/2017 Ot 278.00 OBE SITY, NOS 11/07/2017 Ot 296.22 DEP RESSIVE DISORDER-MOD 11/07/2017 Ot 401.9 HYPE RTENSION NOS 11/07/2017 Ot 427.1 PARO X VENTRIC TACHYCARD 11/07/2017 Ot 785.1 PALP ITATIONS 11/07/2017 KEKE VINES Ot 397.0 TRICUSPID VALVE DISEASE 11/07/2017 KEKE VINES Ot 401.9 HYPERTENSION NOS 11/07/2017 KEKE VINES Ot 424.0 MITRAL VALVE DISORDER 11/07/2017 KEKE VINES Ot 427.1 PAROX VENTRIC TACHYCARD 11/07/2017 KEKE VINES Ot 427.69 PREMATURE BEATS NEC 11/07/2017 KEKE VINES Ot 786.09 RESPIRATORY ABNORM NEC 11/07/2017 FRANCIS KUMARI, DEYA R Ot 789. 00 ABDOMINAL PAIN, UNSPECIFIED SITE 11/07/2017 Ot 789.00 ABD OMINAL PAIN, UNSPECIFIED SITE 11/07/2017 DEYA BLANCO MD Ot V76. 12 OTH SCREEN MAMMO-MALIGN NEOPLASM OF [place] 11/07/2017 CAMILLA NAJERAYULI S Ot 724. 1 PAIN IN THORACIC SPINE 11/07/2017 DEYA BLANCO MD Ot Z12. 31 ENCNTR SCREEN MAMMOGRAM FOR MALIGNANT NE 11/07/2017 KEKE VINES Ot E78.5 HYPERLIPIDEMIA, UNSPECIFIED 11/07/2017 KEKE VINES Ot I10 ESSENTIAL (PRIMARY) HYPERTENSION 11/07/2017 KEKE VINES Ot I47.2 VENTRICULAR TACHYCARDIA 11/07/2017 KEKE VINES Ot I48.0 PAROXYSMAL ATRIAL FIBRILLATION 11/07/2017 ELISE RIDER MD Ot E78. 5 HYPERLIPIDEMIA, UNSPECIFIED 11/07/2017 ELISE RIDER MD Ot I25. 10 ATHSCL HEART DISEASE OF [place] CORONARY 11/07/2017 ELISE RIDER MD Ot I47. 2 VENTRICULAR TACHYCARDIA 11/07/2017 ELISE RIDER MD Ot I48. 0 PAROXYSMAL ATRIAL FIBRILLATION 11/07/2017 ELISE RIDER MD Ot I48. 92 UNSPECIFIED ATRIAL FLUTTER 11/07/2017 ELISE RIDER MD Ot J44. 9 CHRONIC OBSTRUCTIVE PULMONARY DISEASE, U 11/07/2017 ELISE RIDER MD Ot Z79.899 OTHER [facility] (CURRENT) DRUG THERAPY 11/07/2017 ELISE RIDER MD Ot E78. 5 HYPERLIPIDEMIA, UNSPECIFIED 11/07/2017 ELISE RIDER MD Ot I10 ESSENTIAL (PRIMARY) HYPERTENSION 11/07/2017 ELISE RIDER MD Ot I25. 10 ATHSCL HEART DISEASE OF [place] CORONARY 11/07/2017 ELISE RIDER MD Ot I48. 91 UNSPECIFIED ATRIAL FIBRILLATION 11/07/2017 ELISE RIDER MD, Ot I48. 92 UNSPECIFIED ATRIAL FLUTTER 11/07/2017 ELISE RIDER MD, Ot I49. 5 SICK SINUS SYNDROME 11/07/2017 ELISE RIDER MD, Ot Z53. 8 PROCEDURE AND TREATMENT NOT CARRIED OUT 11/07/2017 ELISE RIDER MD, Ot Z79. 01 [facility] (CURRENT) USE OF ANTICOAGULANT 11/07/2017 ELISE RIDER MD, Ot Z79.899 OTHER [facility] (CURRENT) DRUG THERAPY 11/07/2017 ELISE RIDER MD, Ot Z95. 0 PRESENCE OF CARDIAC PACEMAKER 11/07/2017 NIKO VANESSA, CATHIE A Ot Z12.31 ENCNTR SCREEN MAMMOGRAM FOR MALIGNANT NE 11/07/2017 KEKE VINES Ot E78.5 HYPERLIPIDEMIA, UNSPECIFIED 11/07/2017 KEKE VINES Ot I08.1 RHEUMATIC DISORDERS OF BOTH MITRAL AND T 11/07/2017 KEKE VINES Ot I10 ESSENTIAL (PRIMARY) HYPERTENSION 11/07/2017 KEKE VINES Ot I48.91 UNSPECIFIED ATRIAL FIBRILLATION 11/07/2017 KEKE VINES Ot R06.02 SHORTNESS OF BREATH 11/07/2017 KEKE VINES Ot E78.2 MIXED HYPERLIPIDEMIA 11/07/2017 KEKE VINES Ot I10 ESSENTIAL (PRIMARY) HYPERTENSION 11/07/2017 KEKE VINES Ot I48.0 PAROXYSMAL ATRIAL FIBRILLATION 11/07/2017 KEKE VINES Ot R06.02 SHORTNESS OF BREATH 11/07/2017 TAHIR HERNANDEZ-Elsa Ot R31 .9 HEMATURIA, UNSPECIFIED 11/07/2017 TAHIR HERNANDEZ-Elsa Ot Z51.81 ENCOUNTER FOR THERAPEUTIC DRUG LEVEL MON 11/07/2017 TAHIR HERNANDEZ-C Ot Z79.899 OTHER [facility] (CURRENT) DRUG THERAPY 11/07/2017 FRANCIS KUMARI, DEYA Landeros Ot K57. 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 11/07/2017 ELIUD KUMARI, HORTENSIA Antoine Ot I48. 3 TYPICAL ATRIAL FLUTTER 11/07/2017 HORTENSIA KLINE MD Ot Z51. 81 ENCOUNTER FOR THERAPEUTIC DRUG LEVEL MON 11/07/2017 HORTENSIA KLINE MD Ot Z79.899 OTHER [facility] (CURRENT) DRUG THERAPY 11/08/2017 RITO NGUYEN GRADER TENDER Ot K21.9 GASTRO-ESOPHAGEAL REFLUX DISEASE WITHOUT 11/08/2017 MYCHAL NGUYENINE E GRADER TENDER Ot R06.09 OTHER FORMS OF DYSPNEA 11/08/2017 RITO NGUYEN E GRADER TENDER Ot R07.9 CHEST PAIN, UNSPECIFIED 11/09/2017 HORTENSIA KLINE MD Ot I48. 3 TYPICAL ATRIAL FLUTTER 11/09/2017 HORTENSIA KLINE MD Ot Z51. 81 ENCOUNTER FOR THERAPEUTIC DRUG LEVEL MON 11/09/2017 HORTENSIA KLINE MD Ot Z79.899 OTHER RADIOLOGY SERVICES MANAGER (CURRENT) DRUG THERAPY 11/27/2017 RITO NGUYEN GRADER TENDER Ot K21.9 GASTRO-ESOPHAGEAL REFLUX DISEASE WITHOUT 11/27/2017 RITO NGUYEN E GRADER TENDER Ot R06.09 OTHER FORMS OF DYSPNEA 11/27/2017 RITO NGUYEN E GRADER TENDER Ot R07.9 CHEST PAIN, UNSPECIFIED 12/06/2017 RITO NGUYEN GRADER TENDER Ot J98.4 OTHER DISORDERS OF LUNG 01/08/2018 MARCO A ELDER MD Ot A41 .9 SEPSIS, UNSPECIFIED ORGANISM 01/08/2018 MARCO A ELDER MD Ot E78.00 PURE HYPERCHOLESTEROLEMIA, UNSPECIFIED 01/08/2018 MARCO A ELDER MD Ot F32 .9 MAJOR DEPRESSIVE DISORDER, SINGLE EPISOD 01/08/2018 MARCO A ELDER MD Ot F41 .9 ANXIETY DISORDER, UNSPECIFIED 01/08/2018 MARCO A ELDER MD Ot G47.30 SLEEP APNEA, UNSPECIFIED 01/08/2018 MARCO A ELDER MD Ot I10 ESSENTIAL (PRIMARY) HYPERTENSION 01/08/2018 MARCO A ELDER MD Ot I34 .0 NONRHEUMATIC MITRAL (VALVE) INSUFFICIENC 01/08/2018 MARCO A ELDER MD Ot I48.91 UNSPECIFIED ATRIAL FIBRILLATION 01/08/2018 MARCO A ELDER MD Ot K21 .9 GASTRO-ESOPHAGEAL REFLUX DISEASE WITHOUT 01/08/2018 MARCO A ELDER MD Ot K57.90 DVRTCLOS OF INTEST, PART UNSP, W/O PERF 01/08/2018 MARCO A ELDER MD Ot K80.00 CALCULUS OF GALLBLADDER W ACUTE CHOLECYS 01/08/2018 MARCO A ELDER MD Ot N30.01 ACUTE CYSTITIS WITH HEMATURIA 01/08/2018 MARCO A ELDER MD Ot R65.20 SEVERE SEPSIS WITHOUT SEPTIC SHOCK 01/08/2018 MARCO A ELDER MD Ot Z77.22 CNTCT W AND EXPSR TO ENVIRON TOBACCO SMO 01/08/2018 MARCO A ELDER MD Ot Z79.01 RADIOLOGY SERVICES MANAGER (CURRENT) USE OF ANTICOAGULANT 01/08/2018 MARCO A ELDER MD Ot Z95 .0 PRESENCE OF CARDIAC PACEMAKER 01/10/2018 MARCO A ELDER MD Ot A41 .9 SEPSIS, UNSPECIFIED ORGANISM 01/10/2018 MARCO A ELDER MD Ot E78.00 PURE HYPERCHOLESTEROLEMIA, UNSPECIFIED 01/10/2018 MARCO A ELDER MD Ot F32 .9 MAJOR DEPRESSIVE DISORDER, SINGLE EPISOD 01/10/2018 MARCO A ELDER MD Ot F41 .9 ANXIETY DISORDER, UNSPECIFIED 01/10/2018 MARCO A ELDER MD Ot G47.30 SLEEP APNEA, UNSPECIFIED 01/10/2018 MARCO A ELDER MD Ot I10 ESSENTIAL (PRIMARY) HYPERTENSION 01/10/2018 MARCO A ELDER MD Ot I34 .0 NONRHEUMATIC MITRAL (VALVE) INSUFFICIENC 01/10/2018 MARCO A ELDER MD Ot I48.91 UNSPECIFIED ATRIAL FIBRILLATION 01/10/2018 MARCO A ELDER MD, Ot K21 .9 GASTRO-ESOPHAGEAL REFLUX DISEASE WITHOUT 01/10/2018 MARCO A ELDER MD Ot K57.90 DVRTCLOS OF INTEST, PART UNSP, W/O PERF 01/10/2018 MARCO A ELDER MD Ot K80.00 CALCULUS OF GALLBLADDER W ACUTE CHOLECYS 01/10/2018 MARCO A ELDER MD Ot N30.01 ACUTE CYSTITIS WITH HEMATURIA 01/10/2018 MARCO A ELDER MD Ot R65.20 SEVERE SEPSIS WITHOUT SEPTIC SHOCK 01/10/2018 MARCO A ELDER MD Ot Z77.22 CNTCT W AND EXPSR TO ENVIRON TOBACCO SMO 01/10/2018 MARCO A ELDER MD Ot Z79.01 RADIOLOGY SERVICES MANAGER (CURRENT) USE OF ANTICOAGULANT 01/10/2018 MARCO A ELDER MD Ot Z95 .0 PRESENCE OF CARDIAC PACEMAKER 01/11/2018 MARCO A ELDER MD Ot A41 .9 SEPSIS, UNSPECIFIED ORGANISM 01/11/2018 MARCO A ELDER MD Ot D62 ACUTE POSTHEMORRHAGIC ANEMIA 01/11/2018 MARCO A ELDER MD Ot D68.32 HEMORRHAGIC DISORD D/T EXTRINSIC CIRCULA 01/11/2018 MARCO A ELDER MD, Ot D68 .9 COAGULATION DEFECT, UNSPECIFIED 01/11/2018 MARCO A ELDER MD, Ot D72.829 ELEVATED WHITE BLOOD CELL COUNT, UNSPECI 01/11/2018 MARCO A LEDER MD Ot E78.00 PURE HYPERCHOLESTEROLEMIA, UNSPECIFIED 01/11/2018 MARCO A ELDER MD Ot E87 .2 ACIDOSIS 01/11/2018 MARCO A ELDER MD Ot E87 .6 HYPOKALEMIA 01/11/2018 MARCO A ELDER MD Ot E87.70 FLUID OVERLOAD, UNSPECIFIED 01/11/2018 MARCO A ELDER MD Ot F32 .9 MAJOR DEPRESSIVE DISORDER, SINGLE EPISOD 01/11/2018 MARCO A ELDER MD Ot F41 .9 ANXIETY DISORDER, UNSPECIFIED 01/11/2018 MARCO A ELDER MD Ot G47.30 SLEEP APNEA, UNSPECIFIED 01/11/2018 MARCO A ELDER MD Ot G47.33 OBSTRUCTIVE SLEEP APNEA (ADULT) (PEDIATR 01/11/2018 MARCO A ELDER MD Ot I07 .1 RHEUMATIC TRICUSPID INSUFFICIENCY 01/11/2018 MARCO A ELDER MD Ot I10 ESSENTIAL (PRIMARY) HYPERTENSION 01/11/2018 MARCO A ELDER MD Ot I11 .0 HYPERTENSIVE HEART DISEASE WITH HEART FA 01/11/2018 MARCO A ELDER MD Ot I25.10 ATHSCL HEART DISEASE OF [place] CORONARY 01/11/2018 MARCO A ELDER MD Ot I27.20 PULMONARY HYPERTENSION, UNSPECIFIED 01/11/2018 MARCO A ELDER MD Ot I34 .0 NONRHEUMATIC MITRAL (VALVE) INSUFFICIENC 01/11/2018 MACRO A ELDER MD Ot I42 .9 CARDIOMYOPATHY, UNSPECIFIED 01/11/2018 MARCO A ELDER MD, Ot I48.91 UNSPECIFIED ATRIAL FIBRILLATION 01/11/2018 MARCO A ELDER MD Ot I50.21 ACUTE SYSTOLIC (CONGESTIVE) HEART FAILUR 01/11/2018 MARCO A ELDER MD Ot J96.00 ACUTE RESPIRATORY FAILURE, UNSP W HYPOXI 01/11/2018 MARCO A ELDER MD Ot K21 .9 GASTRO-ESOPHAGEAL REFLUX DISEASE WITHOUT 01/11/2018 MARCO A ELDER MD Ot K57.90 DVRTCLOS OF INTEST, PART UNSP, W/O PERF 01/11/2018 MARCO A ELDER MD Ot K76.89 OTHER SPECIFIED DISEASES OF LIVER 01/11/2018 MARCO A ELDER MD Ot K80.00 CALCULUS OF GALLBLADDER W ACUTE CHOLECYS 01/11/2018 MARCO A ELDER MD Ot N30.01 ACUTE CYSTITIS WITH HEMATURIA 01/11/2018 MARCO A ELDER MD Ot R65.20 SEVERE SEPSIS WITHOUT SEPTIC SHOCK 01/11/2018 MARCO A ELDER MD Ot Z53.31 LAPAROSCOPIC SURGICAL PROCEDURE CONVERTE 01/11/2018 MARCO A ELDER MD Ot Z77.22 CNTCT W AND EXPSR TO ENVIRON TOBACCO SMO 01/11/2018 MARCO A ELDER MD Ot Z79.01 [facility] (CURRENT) USE OF ANTICOAGULANT 01/11/2018 MARCO A ELDER MD Ot Z95 .0 PRESENCE OF CARDIAC PACEMAKER 01/14/2018 LISA POLLACK DOI Ot D72.82 9 ELEVATED WHITE BLOOD CELL COUNT, UNSPECI 01/14/2018 JAKI VANESSA ELLIS Ot E87.2 ACIDOSIS 01/14/2018 JAKI VANESSA ELLIS Ot G47.33 OBSTRUCTIVE SLEEP APNEA (ADULT) (PEDIATR 01/14/2018 JAKI VANESSA ELLIS Ot I07.1 RHEUMATIC TRICUSPID INSUFFICIENCY 01/14/2018 JAKI VANESSA ELLIS Ot I11.0 HYPERTENSIVE HEART DISEASE WITH HEART FA 01/14/2018 JAKI VANESSA ELLIS Ot I25.10 ATHSCL HEART DISEASE OF [place] CORONARY 01/14/2018 JAKI VANESSA ELLIS Ot I27.20 PULMONARY HYPERTENSION, UNSPECIFIED 01/14/2018 JAKI VANESSA ELLIS Ot I42.9 CARDIOMYOPATHY, UNSPECIFIED 01/14/2018 JAKI VANESSA ELLIS Ot I48.2 CHRONIC ATRIAL FIBRILLATION 01/14/2018 JAKI VANESSA, ELLIS Ot I50.21 ACUTE SYSTOLIC (CONGESTIVE) HEART FAILUR 01/14/2018 POLLACKLEBRON VANESSA ELLIS Ot J96.90 RESPIRATORY FAILURE, UNSP, UNSP W HYPOXI 01/14/2018 POLLACKELLIS DIANA DO Ot R07.9 CHEST PAIN, UNSPECIFIED 01/14/2018 POLLACKLEBRON VANESSA ELLIS Ot R17 UNSPECIFIED JAUNDICE 01/14/2018 POLLACKELLIS DIANA DO Ot R53.81 OTHER MALAISE 01/14/2018 POLLACKELLIS DIANA DO Ot Z48.81 5 ENCNTR FOR SURGICAL AFTCR FOLLOWING SURG 01/14/2018 POLLACKELLIS DIANA DO Ot Z79.01 [facility] (CURRENT) USE OF ANTICOAGULANT 01/14/2018 POLLACKELLIS DIANA DO Ot Z95.0 PRESENCE OF CARDIAC PACEMAKER 01/28/2018 RITO NGUYEN APRN Ot J98.4 OTHER DISORDERS OF LUNG 01/28/2018 RITO NGUYEN APRN Ot R06.02 SHORTNESS OF BREATH 02/01/2018 Ot V76.12 OTH SCREEN MAMMO- MALIGN NEOPLASM OF [place] 02/01/2018 DEYA BLANCO MD Ot 355. 9 MONONEURITIS NOS 02/01/2018 DEYA BLANCO MD Ot 719. 45 JOINT PAIN-PELVIS 02/01/2018 SARAI TOBIAS DO Ot V72. 84 EXAM PRE-OPERATIVE NOS 02/01/2018 KEKE VINES Ot 272.4 HYPERLIPIDEMIA NEC/NOS 02/01/2018 KEKE VINES Ot 278.00 OBESITY, NOS 02/01/2018 KEKE VINES Ot 401.9 HYPERTENSION NOS 02/01/2018 KEKE VINES Ot 427.1 PAROX VENTRIC TACHYCARD 02/01/2018 KEKE VINES Ot 785.1 PALPITATIONS 02/01/2018 ELISE RIDER MD Ot 272. 4 HYPERLIPIDEMIA NEC/NOS 02/01/2018 ELISE RIDER MD Ot 401. 9 HYPERTENSION NOS 02/01/2018 ELISE RIDER MD Ot 426. 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 1 PAROX VENTRIC TACHYCARD 02/01/2018 ADRY KUMARI, ELISE Sosa Ot 427. 69 PREMATURE BEATS NEC 02/01/2018 ADRY KUMARI, ELISE Sosa Ot 530. 81 ESOPHAGEAL REFLUX 02/01/2018 ADRY KUMARI, ELISE Sosa Ot V58. 69 OTH MED,LT,CURRENT USE 02/01/2018 FRANCIS KUMARI, DEYA Landeros Ot V76. 12 OTH SCREEN MAMMO-MALIGN NEOPLASM OF [place] 02/01/2018 Ot 272.4 HYPE RLIPIDEMIA NEC/NOS 02/01/2018 Ot 278.00 OBE SITY, NOS 02/01/2018 Ot 296.22 DEP RESSIVE DISORDER-MOD 02/01/2018 Ot 401.9 HYPE RTENSION NOS 02/01/2018 Ot 427.1 PARO X VENTRIC TACHYCARD 02/01/2018 Ot 785.1 PALP ITATIONS 02/01/2018 KEKE VINES Ot 397.0 TRICUSPID VALVE DISEASE 02/01/2018 KEKE VINES Ot 401.9 HYPERTENSION NOS 02/01/2018 KEKE VINES Ot 424.0 MITRAL VALVE DISORDER 02/01/2018 KEKE VINES Ot 427.1 PAROX VENTRIC TACHYCARD 02/01/2018 KEKE VINES Ot 427.69 PREMATURE BEATS NEC 02/01/2018 KEKE VINES Ot 786.09 RESPIRATORY ABNORM NEC 02/01/2018 DEYA BLANCO MD Ot 789. 00 ABDOMINAL PAIN, UNSPECIFIED SITE 02/01/2018 Ot 789.00 ABD OMINAL PAIN, UNSPECIFIED SITE 02/01/2018 FRANCIS KUMARI, DEYA Landeros Ot V76. 12 OTH SCREEN MAMMO-MALIGN NEOPLASM OF [place] 02/01/2018 LONG DC, YULI S Ot 724. 1 PAIN IN THORACIC SPINE 02/01/2018 DEYA BLANCO MD Ot Z12. 31 ENCNTR SCREEN MAMMOGRAM FOR MALIGNANT NE 02/01/2018 KEKE VINES Ot E78.5 HYPERLIPIDEMIA, UNSPECIFIED 02/01/2018 KEKE VINES Ot I10 ESSENTIAL (PRIMARY) HYPERTENSION 02/01/2018 KEKE VINES Ot I47.2 VENTRICULAR TACHYCARDIA 02/01/2018 KEKE VINES Ot I48.0 PAROXYSMAL ATRIAL FIBRILLATION 02/01/2018 ELISE RIDER MD Ot E78. 5 HYPERLIPIDEMIA, UNSPECIFIED 02/01/2018 ELISE RIDER MD Ot I25. 10 ATHSCL HEART DISEASE OF [place] CORONARY 02/01/2018 ELISE RIDER MD Ot I47. 2 VENTRICULAR TACHYCARDIA 02/01/2018 ELISE RIDER MD Ot I48. 0 PAROXYSMAL ATRIAL FIBRILLATION 02/01/2018 ELISE RIDER MD Ot I48. 92 UNSPECIFIED ATRIAL FLUTTER 02/01/2018 ELISE RIDER MD Ot J44. 9 CHRONIC OBSTRUCTIVE PULMONARY DISEASE, U 02/01/2018 ELISE RIDER MD Ot Z79.899 OTHER [facility] (CURRENT) DRUG THERAPY 02/01/2018 ELISE RIDER MD Ot E78. 5 HYPERLIPIDEMIA, UNSPECIFIED 02/01/2018 ELISE RIDER MD Ot I10 ESSENTIAL (PRIMARY) HYPERTENSION 02/01/2018 ELISE RIDER MD Ot I25. 10 ATHSCL HEART DISEASE OF [place] CORONARY 02/01/2018 ELISE RIDER MD Ot I48. 91 UNSPECIFIED ATRIAL FIBRILLATION 02/01/2018 ELISE RIDER MD Ot I48. 92 UNSPECIFIED ATRIAL FLUTTER 02/01/2018 ELISE RIDER MD Ot I49. 5 SICK SINUS SYNDROME 02/01/2018 ELISE RIDER MD Ot Z53. 8 PROCEDURE AND TREATMENT NOT CARRIED OUT 02/01/2018 ELISE RIDER MD Ot Z79. 01 [facility] (CURRENT) USE OF ANTICOAGULANT 02/01/2018 ELISE RIDER MD Ot Z79.899 OTHER [facility] (CURRENT) DRUG THERAPY 02/01/2018 ELISE RIDER MD Ot Z95. 0 PRESENCE OF CARDIAC PACEMAKER 02/01/2018 CATHIE POPE DO Ot Z12.31 ENCNTR SCREEN MAMMOGRAM FOR MALIGNANT NE 02/01/2018 KEKE VINES Ot E78.5 HYPERLIPIDEMIA, UNSPECIFIED 02/01/2018 KEKE VINES Ot I08.1 RHEUMATIC DISORDERS OF BOTH MITRAL AND T 02/01/2018 SILVIA VINESTH K Ot I10 ESSENTIAL (PRIMARY) HYPERTENSION 02/01/2018 BENNY JEFF KEKE K Ot I48.91 UNSPECIFIED ATRIAL FIBRILLATION 02/01/2018 BENNY JEFF KEKE K Ot R06.02 SHORTNESS OF BREATH 02/01/2018 BENNY JEFF KEKE K Ot E78.2 MIXED HYPERLIPIDEMIA 02/01/2018 BENNY JEFF KEKE K Ot I10 ESSENTIAL (PRIMARY) HYPERTENSION 02/01/2018 BENNY JEFF KEKE K Ot I48.0 PAROXYSMAL ATRIAL FIBRILLATION 02/01/2018 BENNY JEFF KEKE K Ot R06.02 SHORTNESS OF BREATH 02/01/2018 TAHIR HERNANDEZ PSYCHOLOGY ASSOCIATE-C Ot R31 .9 HEMATURIA, UNSPECIFIED 02/01/2018 TAHIR HERNANDEZ PSYCHOLOGY ASSOCIATE-C Ot Z51.81 ENCOUNTER FOR THERAPEUTIC DRUG LEVEL MON 02/01/2018 TAHIR HERNANDEZ PSYCHOLOGY ASSOCIATE-C Ot Z79.899 OTHER [facility] (CURRENT) DRUG THERAPY 02/01/2018 FRANCIS KUMARI, DEYA R Ot K57. 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 3 TYPICAL ATRIAL FLUTTER 02/01/2018 HORTENSIA KLINE MD Ot Z51. 81 ENCOUNTER FOR THERAPEUTIC DRUG LEVEL MON 02/01/2018 HORTENSIA KLINE MD Ot Z79.899 OTHER [facility] SERVICES MANAGER (CURRENT) DRUG THERAPY 02/01/2018 RITO NGUYEN APRN Ot J98.4 OTHER DISORDERS OF LUNG 02/01/2018 RITO NGUYEN APRN Ot R06.02 SHORTNESS OF BREATH 02/01/2018 RITO NGUYEN APRN Ot J98.4 OTHER DISORDERS OF LUNG 02/01/2018 RITO NGUYEN APRN Ot J98.4 OTHER DISORDERS OF LUNG 02/01/2018 RITO NGUYEN APRN Ot R06.02 SHORTNESS OF BREATH 02/01/2018 Ot V76.12 OTH SCREEN MAMMO- MALIGN NEOPLASM OF [place] 02/01/2018 FRANCIS KUMARI, DEYA Landeros Ot 355. 9 MONONEURITIS NOS 02/01/2018 DEYA BLANCO MD Ot 719. 45 JOINT PAIN-PELVIS 02/01/2018 SARAI TOBIAS DO Ot V72. 84 EXAM PRE-OPERATIVE NOS 02/01/2018 KEKE VINES Ot 272.4 HYPERLIPIDEMIA NEC/NOS 02/01/2018 KEKE VINES Ot 278.00 OBESITY, NOS 02/01/2018 KEKE VINES Ot 401.9 HYPERTENSION NOS 02/01/2018 KEKE VINES Ot 427.1 PAROX VENTRIC TACHYCARD 02/01/2018 KEKE VINES Ot 785.1 PALPITATIONS 02/01/2018 ADRY KUMARI, ELISE Sosa Ot 272. 4 HYPERLIPIDEMIA NEC/NOS 02/01/2018 ADRY KUMARI, ELISE Sosa Ot 401. 9 HYPERTENSION NOS 02/01/2018 ADRY KUMARI, ELISE Sosa Ot 426. 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 1 PAROX VENTRIC TACHYCARD 02/01/2018 ELISE RIDER MD Ot 427. 69 PREMATURE BEATS NEC 02/01/2018 ELISE RIDER MD Ot 530. 81 ESOPHAGEAL REFLUX 02/01/2018 ELISE RIDER MD Ot V58. 69 OT MED,LT,CURRENT USE 02/01/2018 FRANCIS KUMARI, DEYA Landeros Ot V76. 12 OTH SCREEN MAMMO-MALIGN NEOPLASM OF [place] 02/01/2018 Ot 272.4 HYPE RLIPIDEMIA NEC/NOS 02/01/2018 Ot 278.00 OBE SITY, NOS 02/01/2018 Ot 296.22 DEP RESSIVE DISORDER-MOD 02/01/2018 Ot 401.9 HYPE RTENSION NOS 02/01/2018 Ot 427.1 PARO X VENTRIC TACHYCARD 02/01/2018 Ot 785.1 PALP ITATIONS 02/01/2018 KEKE VINES Ot 397.0 TRICUSPID VALVE DISEASE 02/01/2018 KEKE VINES Ot 401.9 HYPERTENSION NOS 02/01/2018 BENNY JEFF KEKE Raghav Ot 424.0 MITRAL VALVE DISORDER 02/01/2018 KEKE VINES Ot 427.1 PAROX VENTRIC TACHYCARD 02/01/2018 BENNY JEFF KEKE K Ot 427.69 PREMATURE BEATS NEC 02/01/2018 BENNY JEFF KEKE K Ot 786.09 RESPIRATORY ABNORM NEC 02/01/2018 FRANCIS KUMARI, DEYA R Ot 789. 00 ABDOMINAL PAIN, UNSPECIFIED SITE 02/01/2018 Ot 789.00 ABD OMINAL PAIN, UNSPECIFIED SITE 02/01/2018 FRANCIS KUMARI, DEYA Landeros Ot V76. 12 OTH SCREEN MAMMO-MALIGN NEOPLASM OF [place] 02/01/2018 CAMILLA NAJERA, YULI S Ot 724. 1 PAIN IN THORACIC SPINE 02/01/2018 DEYA BLANCO MD Ot Z12. 31 ENCNTR SCREEN MAMMOGRAM FOR MALIGNANT NE 02/01/2018 KEKE VINES Ot E78.5 HYPERLIPIDEMIA, UNSPECIFIED 02/01/2018 BENNY JEFF KEKE K Ot I10 ESSENTIAL (PRIMARY) HYPERTENSION 02/01/2018 KEKE VINES Ot I47.2 VENTRICULAR TACHYCARDIA 02/01/2018 BENNY JEFF KEKE K Ot I48.0 PAROXYSMAL ATRIAL FIBRILLATION 02/01/2018 ELISE RIDER MD Ot E78. 5 HYPERLIPIDEMIA, UNSPECIFIED 02/01/2018 ELISE RIDER MD Ot I25. 10 ATHSCL HEART DISEASE OF [place] CORONARY 02/01/2018 ELISE RIDER MD Ot I47. 2 VENTRICULAR TACHYCARDIA 02/01/2018 ELISE RIDER MD Ot I48. 0 PAROXYSMAL ATRIAL FIBRILLATION 02/01/2018 ELISE RIDER MD Ot I48. 92 UNSPECIFIED ATRIAL FLUTTER 02/01/2018 ELISE RIDER MD Ot J44. 9 CHRONIC OBSTRUCTIVE PULMONARY DISEASE, U 02/01/2018 ELISE RIDER MD Ot Z79.899 OTHER [facility] (CURRENT) DRUG THERAPY 02/01/2018 ELISE RIDER MD Ot E78. 5 HYPERLIPIDEMIA, UNSPECIFIED 02/01/2018 ELISE RIDER MD Ot I10 ESSENTIAL (PRIMARY) HYPERTENSION 02/01/2018 ELISE RIDER MD, Ot I25. 10 ATHSCL HEART DISEASE OF [place] CORONARY 02/01/2018 ELISE RIDER MD Ot I48. 91 UNSPECIFIED ATRIAL FIBRILLATION 02/01/2018 ELISE RIDER MD, Ot I48. 92 UNSPECIFIED ATRIAL FLUTTER 02/01/2018 ELISE RIDER MD, Ot I49. 5 SICK SINUS SYNDROME 02/01/2018 ELISE RIDER MD, Ot Z53. 8 PROCEDURE AND TREATMENT NOT CARRIED OUT 02/01/2018 ELISE RIDER MD, Ot Z79. 01 [facility] (CURRENT) USE OF ANTICOAGULANT 02/01/2018 ELISE RIDER MD, Ot Z79.899 OTHER [facility] (CURRENT) DRUG THERAPY 02/01/2018 ELISE RIDER MD, Ot Z95. 0 PRESENCE OF CARDIAC PACEMAKER 02/01/2018 CATHIE POPE DO Ot Z12.31 ENCNTR SCREEN MAMMOGRAM FOR MALIGNANT NE 02/01/2018 KEKE VINES Ot E78.5 HYPERLIPIDEMIA, UNSPECIFIED 02/01/2018 KEKE VINES Ot I08.1 RHEUMATIC DISORDERS OF BOTH MITRAL AND T 02/01/2018 KEKE VINES Ot I10 ESSENTIAL (PRIMARY) HYPERTENSION 02/01/2018 KEKE VINES Ot I48.91 UNSPECIFIED ATRIAL FIBRILLATION 02/01/2018 KEKE VINES Ot R06.02 SHORTNESS OF BREATH 02/01/2018 KEKE VINES Ot E78.2 MIXED HYPERLIPIDEMIA 02/01/2018 KEKE VINES Ot I10 ESSENTIAL (PRIMARY) HYPERTENSION 02/01/2018 KEKE VINES Ot I48.0 PAROXYSMAL ATRIAL FIBRILLATION 02/01/2018 KEKE VINES Ot R06.02 SHORTNESS OF BREATH 02/01/2018 TAHIR HERNANDEZ Ot R31 .9 HEMATURIA, UNSPECIFIED 02/01/2018 TAHIR HERNANDEZ Ot Z51.81 ENCOUNTER FOR THERAPEUTIC DRUG LEVEL MON 02/01/2018 LARERY, TAHIR PSYCHOLOGY ASSOCIATE-C Ot Z79.899 OTHER [facility] SERVICES MANAGER (CURRENT) DRUG THERAPY 02/01/2018 FRANCIS KUMARI, DEYA Landeros Ot K57. 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 02/01/2018 RITO NGUYEN APRN Ot K21.9 GASTRO-ESOPHAGEAL REFLUX DISEASE WITHOUT 02/01/2018 RITO NGUYEN APRN Ot R06.09 OTHER FORMS OF DYSPNEA 02/01/2018 RITO NGUYEN APRN Ot R07.9 CHEST PAIN, UNSPECIFIED 02/01/2018 HORTENSIA KLINE MD Ot I48. 3 TYPICAL ATRIAL FLUTTER 02/01/2018 HORTENSIA KLINE MD Ot Z51. 81 ENCOUNTER FOR THERAPEUTIC DRUG LEVEL MON 02/01/2018 HORTENSIA KLINE MD Ot Z79.899 OTHER [facility] SERVICES MANAGER (CURRENT) DRUG THERAPY 02/01/2018 RITO NGUYEN APRN Ot J98.4 OTHER DISORDERS OF LUNG 02/01/2018 RITO NGUYEN APRN Ot R06.02 SHORTNESS OF BREATH 02/01/2018 RITO NGUYEN APRN Ot J98.4 OTHER DISORDERS OF LUNG 02/05/2018 BHAVNA JEFFERY GRADER TENDER Ot K76.0 FATTY (CHANGE OF) LIVER, NOT ELSEWHERE C 02/05/2018 BHAVNA JEFFERY APRN Ot Z53.8 PROCEDURE AND TREATMENT NOT CARRIED OUT 02/25/2018 Ot K57.30 DVR TCLOS OF LG INT W/O PERFORATION OR AB 02/25/2018 Ot R31.0 VENECIA S HEMATURIA 02/25/2018 Ot Z87.440 PE RSONAL HISTORY OF URINARY (TRACT) INFE 02/25/2018 Ot Z90.49 ACQ UIRED ABSENCE OF OTHER SPECIFIED PART 03/06/2018 Ot 272.4 HYPE RLIPIDEMIA NEC/NOS 03/06/2018 Ot 278.00 OBE SITY, NOS 03/06/2018 Ot 296.22 DEP RESSIVE DISORDER-MOD 03/06/2018 Ot 401.9 HYPE RTENSION NOS 03/06/2018 Ot 427.1 PARO X VENTRIC TACHYCARD 03/06/2018 Ot 785.1 PALP ITATIONS 03/06/2018 ELLIOT KUMARI, VÍCTOR Petersen Ot Z01.8 18 ENCOUNTER FOR OTHER PREPROCEDURAL EXAMIN 03/07/2018 VÍCTOR ZARATE MD Ot Z01.8 18 ENCOUNTER FOR OTHER PREPROCEDURAL EXAMIN 03/10/2018 RITO NGUYEN APRN Ot J98.4 OTHER DISORDERS OF LUNG 03/10/2018 RITO NGUYEN APRN Ot R06.02 SHORTNESS OF BREATH 03/13/2018 VÍCTOR ZARATE MD Ot D41.4 NEOPLASM OF UNCERTAIN BEHAVIOR OF [place] 03/13/2018 VÍCTOR ZARATE MD Ot G47.3 3 OBSTRUCTIVE SLEEP APNEA (ADULT) (PEDIATR 03/13/2018 VÍCTOR ZARATE MD Ot I10 ESSENTIAL (PRIMARY) HYPERTENSION 03/13/2018 VÍCTOR ZARATE MD Ot I48.9 1 UNSPECIFIED ATRIAL FIBRILLATION 03/13/2018 VÍCTOR ZARATE MD Ot K21.9 GASTRO-ESOPHAGEAL REFLUX DISEASE WITHOUT 03/13/2018 VÍCTOR ZARATE MD Ot N30.2 0 OTHER CHRONIC CYSTITIS WITHOUT HEMATURIA 03/13/2018 VÍCTOR ZARATE MD Ot Z79.0 1 [facility] (CURRENT) USE OF ANTICOAGULANT 03/13/2018 VÍCTOR ZARATE MD Ot Z95.0 PRESENCE OF CARDIAC PACEMAKER 03/13/2018 RITO NGUYEN APRN Ot J98.4 OTHER DISORDERS OF LUNG 03/13/2018 RITO NGUYEN APRN Ot R06.02 SHORTNESS OF BREATH 03/15/2018 ZIYAD BUNN APRN Ot E78.00 PURE HYPERCHOLESTEROLEMIA, UNSPECIFIED 03/15/2018 ZIYAD BUNN APRN Ot F32 .9 MAJOR DEPRESSIVE DISORDER, SINGLE EPISOD 03/15/2018 ZIYAD BUNN APRN Ot F41 .9 ANXIETY DISORDER, UNSPECIFIED 03/15/2018 ZIYAD BUNN APRN Ot G47.30 SLEEP APNEA, UNSPECIFIED 03/15/2018 ZIYAD BUNN APRN Ot I10 ESSENTIAL (PRIMARY) HYPERTENSION 03/15/2018 ZIYAD BUNN APRN Ot I48.91 UNSPECIFIED ATRIAL FIBRILLATION 03/15/2018 ZIYAD BUNN APRN Ot K21 .9 GASTRO-ESOPHAGEAL REFLUX DISEASE WITHOUT 03/15/2018 ZIYAD BUNN APRN Ot N39 .0 URINARY TRACT INFECTION, SITE NOT SPECIF 03/15/2018 ZIYAD BUNN APRN Ot R41.82 ALTERED MENTAL STATUS, UNSPECIFIED 03/15/2018 ZIYAD BUNN APRN Ot R44 .1 VISUAL HALLUCINATIONS 03/15/2018 ZIYAD BUNN APRN Ot Z77.22 CNTCT W AND EXPSR TO ENVIRON TOBACCO SMO 03/15/2018 ZIYAD BUNN APRN Ot Z87.19 PERSONAL HISTORY OF OTHER DISEASES OF TH 03/15/2018 ZIYAD BUNN APRN Ot Z87.440 PERSONAL HISTORY OF URINARY (TRACT) INFE 03/15/2018 ZIYAD BUNN APRN Ot Z87.59 PERSONAL HISTORY OF COMP OF PREG, CHLDBR 03/15/2018 ZIYAD BUNN APRN Ot Z88 .2 ALLERGY STATUS TO SULFONAMIDES STATUS 03/15/2018 ZIYAD BUNN APRN Ot Z88 .8 ALLERGY STATUS TO OTH DRUG/MEDS/BIOL SUB 03/15/2018 ZIYAD BUNN APRN Ot Z90.710 ACQUIRED ABSENCE OF BOTH CERVIX AND UTER 03/15/2018 ZIYAD BUNN APRN Ot Z90.89 ACQUIRED ABSENCE OF OTHER ORGANS 03/15/2018 ZIYAD BUNN APRN Ot Z91.14 PATIENT'S OTHER NONCOMPLIANCE WITH MEDIC 03/15/2018 ZIYAD BUNN APRN Ot Z95 .0 PRESENCE OF CARDIAC PACEMAKER 03/18/2018 ZIYAD BUNN APRN Ot E78.00 PURE HYPERCHOLESTEROLEMIA, UNSPECIFIED 03/18/2018 ZIYAD BUNN APRN Ot F32 .9 MAJOR DEPRESSIVE DISORDER, SINGLE EPISOD 03/18/2018 ZIYAD BUNN APRN Ot F41 .9 ANXIETY DISORDER, UNSPECIFIED 03/18/2018 ZIYAD BUNN APRN Ot G47.30 SLEEP APNEA, UNSPECIFIED 03/18/2018 ZIYAD BUNN APRN Ot I10 ESSENTIAL (PRIMARY) HYPERTENSION 03/18/2018 ZIYAD BUNN APRN Ot I48.91 UNSPECIFIED ATRIAL FIBRILLATION 03/18/2018 ZIYAD BUNN APRN Ot K21 .9 GASTRO-ESOPHAGEAL REFLUX DISEASE WITHOUT 03/18/2018 ZIYAD BUNN APRN Ot N39 .0 URINARY TRACT INFECTION, SITE NOT SPECIF 03/18/2018 ZIYAD BUNN APRN Ot R41.82 ALTERED MENTAL STATUS, UNSPECIFIED 03/18/2018 ZIYAD BUNN APRN Ot R44 .1 VISUAL HALLUCINATIONS 03/18/2018 ZIYAD BUNN APRN Ot Z77.22 CNTCT W AND EXPSR TO ENVIRON TOBACCO SMO 03/18/2018 ZIYAD BUNN APRN Ot Z87.19 PERSONAL HISTORY OF OTHER DISEASES OF TH 03/18/2018 ZIYAD BUNN APRN Ot Z87.440 PERSONAL HISTORY OF URINARY (TRACT) INFE 03/18/2018 ZIYAD BUNN APRN Ot Z87.59 PERSONAL HISTORY OF COMP OF PREG, CHLDBR 03/18/2018 ZIYAD BUNN APRN Ot Z88 .2 ALLERGY STATUS TO SULFONAMIDES STATUS 03/18/2018 ZIYAD BUNN APRN Ot Z88 .8 ALLERGY STATUS TO OTH DRUG/MEDS/BIOL SUB 03/18/2018 ZIYAD BUNN APRN Ot Z90.710 ACQUIRED ABSENCE OF BOTH CERVIX AND UTER 03/18/2018 ZIYAD BUNN APRN Ot Z90.89 ACQUIRED ABSENCE OF OTHER ORGANS 03/18/2018 ZIYAD BUNN APRN Ot Z91.14 PATIENT'S OTHER NONCOMPLIANCE WITH MEDIC 03/18/2018 ZIYAD BUNN APRN Ot Z95 .0 PRESENCE OF CARDIAC PACEMAKER 03/20/2018 VÍCTOR ZARATE MD Ot D41.4 NEOPLASM OF UNCERTAIN BEHAVIOR OF [place] 03/20/2018 VÍCTOR ZARATE MD Ot G47.3 3 OBSTRUCTIVE SLEEP APNEA (ADULT) (PEDIATR 03/20/2018 VÍCTOR ZARATE MD Ot I10 ESSENTIAL (PRIMARY) HYPERTENSION 03/20/2018 VÍCTOR ZARATE MD Ot I48.9 1 UNSPECIFIED ATRIAL FIBRILLATION 03/20/2018 VÍCTOR ZARATE MD Ot K21.9 GASTRO-ESOPHAGEAL REFLUX DISEASE WITHOUT 03/20/2018 VÍCTOR ZARATE MD Ot N30.2 0 OTHER CHRONIC CYSTITIS WITHOUT HEMATURIA 03/20/2018 VÍCTOR ZARATE MD Ot Z79.0 1 RADIOLOGY SERVICES MANAGER (CURRENT) USE OF ANTICOAGULANT 03/20/2018 VÍCTOR ZARATE MD Ot Z95.0 PRESENCE OF CARDIAC PACEMAKER 03/21/2018 ZIYAD BUNN APRN Ot E78.00 PURE HYPERCHOLESTEROLEMIA, UNSPECIFIED 03/21/2018 ZIYAD BUNN APRN Ot F32 .9 MAJOR DEPRESSIVE DISORDER, SINGLE EPISOD 03/21/2018 ZIYAD BUNN APRN Ot F41 .9 ANXIETY DISORDER, UNSPECIFIED 03/21/2018 ZIYAD BUNN APRN Ot G47.30 SLEEP APNEA, UNSPECIFIED 03/21/2018 ZIYAD BUNN APRN Ot I10 ESSENTIAL (PRIMARY) HYPERTENSION 03/21/2018 ZIYAD BUNN APRN Ot I48.91 UNSPECIFIED ATRIAL FIBRILLATION 03/21/2018 ZIYAD BUNN APRN Ot K21 .9 GASTRO-ESOPHAGEAL REFLUX DISEASE WITHOUT 03/21/2018 ZIYAD BUNN APRN Ot N39 .0 URINARY TRACT INFECTION, SITE NOT SPECIF 03/21/2018 ZIYAD BUNN APRN Ot R41.82 ALTERED MENTAL STATUS, UNSPECIFIED 03/21/2018 ZIYAD BUNN APRN Ot R44 .1 VISUAL HALLUCINATIONS 03/21/2018 ZIYAD BUNN APRN Ot Z77.22 CNTCT W AND EXPSR TO ENVIRON TOBACCO SMO 03/21/2018 ZIYAD BUNN APRN Ot Z87.19 PERSONAL HISTORY OF OTHER DISEASES OF TH 03/21/2018 ZIYAD BUNN APRN Ot Z87.440 PERSONAL HISTORY OF URINARY (TRACT) INFE 03/21/2018 ZIYAD BUNN APRN Ot Z87.59 PERSONAL HISTORY OF COMP OF PREG, CHLDBR 03/21/2018 ZIYAD BUNN APRN Ot Z88 .2 ALLERGY STATUS TO SULFONAMIDES STATUS 03/21/2018 ZIYAD BUNN APRN Ot Z88 .8 ALLERGY STATUS TO OTH DRUG/MEDS/BIOL SUB 03/21/2018 ZIYAD BUNN APRN Ot Z90.710 ACQUIRED ABSENCE OF BOTH CERVIX AND UTER 03/21/2018 ZIYAD BUNN APRN Ot Z90.89 ACQUIRED ABSENCE OF OTHER ORGANS 03/21/2018 ZIYAD BUNN APRN Ot Z91.14 PATIENT'S OTHER NONCOMPLIANCE WITH MEDIC 03/21/2018 ZIYAD BUNN APRN Ot Z95 .0 PRESENCE OF CARDIAC PACEMAKER 03/28/2018 Ot K57.30 DVR TCLOS OF LG INT W/O PERFORATION OR AB 03/28/2018 Ot R31.0 VENECIA S HEMATURIA 03/28/2018 Ot Z87.440 PE RSONAL HISTORY OF URINARY (TRACT) INFE 03/28/2018 Ot Z90.49 ACQ UIRED ABSENCE OF OTHER SPECIFIED PART 04/11/2018 DAPHNE , JALYN S Ot Z12.31 ENCNTR SCREEN MAMMOGRAM FOR MALIGNANT NE 04/15/2018 NESSANDER , JALYN S Ot Z12.31 ENCNTR SCREEN MAMMOGRAM FOR MALIGNANT NE 04/18/2018 AVA, BHAVNA R GRADER TENDER Ot J90 PLEURAL EFFUSION, NOT ELSEWHERE CLASSIFI 04/18/2018 AVA, BHAVNA R GRADER TENDER Ot K57.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 04/18/2018 AVA, BHAVNA R GRADER TENDER Ot R16.0 HEPATOMEGALY, NOT ELSEWHERE CLASSIFIED 04/18/2018 AVA, BHAVNA R GRADER TENDER Ot R18.8 OTHER ASCITES 04/18/2018 AVA, BHAVNA R GRADER TENDER Ot Z90.710 ACQUIRED ABSENCE OF BOTH CERVIX AND UTER 04/18/2018 AVA, BHAVNA R GRADER TENDER Ot Z95.818 PRESENCE OF OTHER CARDIAC IMPLANTS AND G 04/22/2018 NESSANDER , JALYN S Ot D64.9 ANEMIA, UNSPECIFIED 04/22/2018 NESSANDER DO, JALYN S Ot E83.42 HYPOMAGNESEMIA 04/22/2018 NESSANDER DO, JALYN S Ot E87.6 HYPOKALEMIA 04/22/2018 NESSANDER DO, JALYN S Ot F32.9 MAJOR DEPRESSIVE DISORDER, SINGLE EPISOD 04/22/2018 NESSANDER DO, JALYN S Ot F41.9 ANXIETY DISORDER, UNSPECIFIED 04/22/2018 NESSANDER DO, JALYN S Ot G47.33 OBSTRUCTIVE SLEEP APNEA (ADULT) (PEDIATR 04/22/2018 NESSANDER DO, JALYN S Ot I11.0 HYPERTENSIVE HEART DISEASE WITH HEART FA 04/22/2018 NESSANDER DO, JALYN S Ot I25.10 ATHSCL HEART DISEASE OF [place] CORONARY 04/22/2018 NESSANDER DO, JALYN S Ot I27.20 PULMONARY HYPERTENSION, UNSPECIFIED 04/22/2018 NESSANDER DO, JALYN S Ot I42.9 CARDIOMYOPATHY, UNSPECIFIED 04/22/2018 NESSANDER DO, JALYN S Ot I48.2 CHRONIC ATRIAL FIBRILLATION 04/22/2018 NESSANDER , JALYN S Ot I48.92 UNSPECIFIED ATRIAL FLUTTER 04/22/2018 DAPHNE VANESSA JALYN S Ot I49.3 VENTRICULAR PREMATURE DEPOLARIZATION 04/22/2018 DAPHNE VANESSA JALYN Camacho Ot I50.23 ACUTE ON CHRONIC SYSTOLIC (CONGESTIVE) H 04/22/2018 DAPHNE VANESSA JALYN aCmacho Ot J44.9 CHRONIC OBSTRUCTIVE PULMONARY DISEASE, U 04/22/2018 JALYN DAILY DO Ot J90 PLEURAL EFFUSION, NOT ELSEWHERE CLASSIFI 04/22/2018 DAPHNE VANESSA JALYN S Ot K21.9 GASTRO-ESOPHAGEAL REFLUX DISEASE WITHOUT 04/22/2018 JALYN DAILY DO S Ot K57.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 04/22/2018 DAPHNE VANESSA JALYN S Ot R16.0 HEPATOMEGALY, NOT ELSEWHERE CLASSIFIED 04/22/2018 DAPHNE VANESSA JALYN S Ot R18.8 OTHER ASCITES 04/22/2018 DAPHNE VANESSA JALYN Camacho Ot Z23 ENCOUNTER FOR IMMUNIZATION 04/22/2018 DAPHNE VANESSA JALYN Camacho Ot Z85.51 PERSONAL HISTORY OF MALIGNANT NEOPLASM O 04/22/2018 DAPHNE VANESSA JALYN S Ot Z90.710 ACQUIRED ABSENCE OF BOTH CERVIX AND UTER 04/22/2018 DAPHNE VANESSA JALYN Camacho Ot Z95.818 PRESENCE OF OTHER CARDIAC IMPLANTS AND G 04/26/2018 Breanne RANGEL MD Ot E78 .5 HYPERLIPIDEMIA, UNSPECIFIED 04/26/2018 Breanne RANGEL MD, Ot G47.33 OBSTRUCTIVE SLEEP APNEA (ADULT) (PEDIATR 04/26/2018 Breanne RANGEL MD Ot I11 .0 HYPERTENSIVE HEART DISEASE WITH HEART FA 04/26/2018 Breanne RANGEL MD Ot I47 .1 SUPRAVENTRICULAR TACHYCARDIA 04/26/2018 Breanne RANGEL MD Ot I48 .1 PERSISTENT ATRIAL FIBRILLATION 04/26/2018 Breanne RANGEL MD, Ot I49 .3 VENTRICULAR PREMATURE DEPOLARIZATION 04/26/2018 Breanne RANGEL MD Ot I50.22 CHRONIC SYSTOLIC (CONGESTIVE) HEART FAIL 04/26/2018 KHALID MD, M JEROME Ot Z79.01 RADIOLOGY SERVICES MANAGER (CURRENT) USE OF ANTICOAGULANT 04/26/2018 Breanne RANGEL MD Ot Z79.899 OTHER RADIOLOGY SERVICES MANAGER (CURRENT) DRUG THERAPY 04/26/2018 Breanne RANGEL MD Ot Z95 .0 PRESENCE OF CARDIAC PACEMAKER 05/01/2018 Breanne RANGEL MD Ot E78 .5 HYPERLIPIDEMIA, UNSPECIFIED 05/01/2018 Breanne RANGEL MD Ot G47.33 OBSTRUCTIVE SLEEP APNEA (ADULT) (PEDIATR 05/01/2018 Breanne RANGEL MD Ot I11 .0 HYPERTENSIVE HEART DISEASE WITH HEART FA 05/01/2018 Breanne RANGEL MD Ot I47 .1 SUPRAVENTRICULAR TACHYCARDIA 05/01/2018 Breanne RANGEL MD Ot I48 .1 PERSISTENT ATRIAL FIBRILLATION 05/01/2018 Breanne RANGEL MD Ot I49 .3 VENTRICULAR PREMATURE DEPOLARIZATION 05/01/2018 Breanne RANGLE MD Ot I50.22 CHRONIC SYSTOLIC (CONGESTIVE) HEART FAIL 05/01/2018 Breanne RANGEL MD Ot Z79.01 [facility] (CURRENT) USE OF ANTICOAGULANT 05/01/2018 Breanne RANGEL MD Ot Z79.899 OTHER RADIOLOGY SERVICES MANAGER (CURRENT) DRUG THERAPY 05/01/2018 Breanne RANGEL MD Ot Z95 .0 PRESENCE OF CARDIAC PACEMAKER 05/07/2018 JALYN DAILY DO Ot Z12.31 ENCNTR SCREEN MAMMOGRAM FOR MALIGNANT NE 06/07/2018 Breanne RANGEL MD Ot E78 .5 HYPERLIPIDEMIA, UNSPECIFIED 06/07/2018 Breanne RANGEL MD Ot G47.33 OBSTRUCTIVE SLEEP APNEA (ADULT) (PEDIATR 06/07/2018 Breanne RANGEL MD Ot I11 .0 HYPERTENSIVE HEART DISEASE WITH HEART FA 06/07/2018 Breanne RANGEL MD Ot I42 .9 CARDIOMYOPATHY, UNSPECIFIED 06/07/2018 Breanne RANGEL MD Ot I47 .1 SUPRAVENTRICULAR TACHYCARDIA 06/07/2018 Breanne RANGEL MD Ot I48 .2 CHRONIC ATRIAL FIBRILLATION 06/07/2018 Breanne RANGEL MD Ot I50.22 CHRONIC SYSTOLIC (CONGESTIVE) HEART FAIL 06/07/2018 Breanne RANGEL MD Ot K21 .9 GASTRO-ESOPHAGEAL REFLUX DISEASE WITHOUT 06/07/2018 Breanne RANGEL MD Ot Z79.01 [facility] (CURRENT) USE OF ANTICOAGULANT 06/07/2018 Breanne RANGEL MD Ot Z79.899 OTHER [facility] (CURRENT) DRUG THERAPY 06/07/2018 Breanne RANGEL MD Ot Z95.810 PRESENCE OF AUTOMATIC (IMPLANTABLE) CARD 06/11/2018 Breanne RANGEL MD Ot E78 .5 HYPERLIPIDEMIA, UNSPECIFIED 06/11/2018 Breanne RANGEL MD Ot G47.33 OBSTRUCTIVE SLEEP APNEA (ADULT) (PEDIATR 06/11/2018 Breanne RANGEL MD Ot I11 .0 HYPERTENSIVE HEART DISEASE WITH HEART FA 06/11/2018 Breanne RANGEL MD Ot I42 .9 CARDIOMYOPATHY, UNSPECIFIED 06/11/2018 Breanne RANGEL MD Ot I47 .1 SUPRAVENTRICULAR TACHYCARDIA 06/11/2018 Breanne RANGEL MD Ot I48 .2 CHRONIC ATRIAL FIBRILLATION 06/11/2018 Breanne RANGEL MD Ot I50.22 CHRONIC SYSTOLIC (CONGESTIVE) HEART FAIL 06/11/2018 Breanne RANGEL MD Ot K21 .9 GASTRO-ESOPHAGEAL REFLUX DISEASE WITHOUT 06/11/2018 Breanne RANGEL MD Ot Z79.01 [facility] (CURRENT) USE OF ANTICOAGULANT 06/11/2018 Breanne RANGEL MD Ot Z79.899 OTHER [facility] (CURRENT) DRUG THERAPY 06/11/2018 Breanne RANGEL MD Ot Z95.810 PRESENCE OF AUTOMATIC (IMPLANTABLE) CARD 06/17/2018 KEKE VINES Ot E78.5 HYPERLIPIDEMIA, UNSPECIFIED 06/17/2018 KEKE VINES Ot I08.3 COMB RHEUMATIC DISORD OF MITRAL, AORTIC 06/17/2018 KEKE VINES Ot I10 ESSENTIAL (PRIMARY) HYPERTENSION 06/17/2018 KEKE VINES Ot I48.0 PAROXYSMAL ATRIAL FIBRILLATION 06/17/2018 KEKE VINES Ot R06.02 SHORTNESS OF BREATH 07/01/2018 Ot 272.4 HYPE RLIPIDEMIA NEC/NOS 07/01/2018 Ot 278.00 OBE SITY, NOS 07/01/2018 Ot 296.22 DEP RESSIVE DISORDER-MOD 07/01/2018 Ot 401.9 HYPE RTENSION NOS 07/01/2018 Ot 427.1 PARO X VENTRIC TACHYCARD 07/01/2018 Ot 785.1 PALP ITATIONS 07/01/2018 RITO NGUYEN APRN Ot J98.4 OTHER DISORDERS OF LUNG 07/01/2018 RITO NGUYEN APRN Ot R06.02 SHORTNESS OF BREATH 07/03/2018 JAKI VANESSA ELLIS Ot D50.0 IRON DEFICIENCY ANEMIA SECONDARY TO BLOO 07/03/2018 JAKI VANESSA ELLIS Ot E78.5 HYPERLIPIDEMIA, UNSPECIFIED 07/03/2018 JAKI VANESSA ELLIS Ot E87.6 HYPOKALEMIA 07/03/2018 LISA POLLACK DOI Ot F32.9 MAJOR DEPRESSIVE DISORDER, SINGLE EPISOD 07/03/2018 JAKI VANESSA ELLIS Ot F41.9 ANXIETY DISORDER, UNSPECIFIED 07/03/2018 JAKI VANESSA ELLIS Ot G47.33 OBSTRUCTIVE SLEEP APNEA (ADULT) (PEDIATR 07/03/2018 JAKI VANESSA ELLIS Ot I08.1 RHEUMATIC DISORDERS OF BOTH MITRAL AND T 07/03/2018 JAKI VANESSA ELLIS Ot I11.0 HYPERTENSIVE HEART DISEASE WITH HEART FA 07/03/2018 LISA POLLACK DOI Ot I25.10 ATHSCL HEART DISEASE OF [place] CORONARY 07/03/2018 JAKI VANESSA ELLIS Ot I27.20 PULMONARY HYPERTENSION, UNSPECIFIED 07/03/2018 LISA POLLACK DOI Ot I42.8 OTHER CARDIOMYOPATHIES 07/03/2018 LISA POLLACK DOI Ot I48.0 PAROXYSMAL ATRIAL FIBRILLATION 07/03/2018 JAKI VANESSA ELLIS Ot I48.92 UNSPECIFIED ATRIAL FLUTTER 07/03/2018 JAKI VANESSA ELLIS Ot I49.3 VENTRICULAR PREMATURE DEPOLARIZATION 07/03/2018 JAKI VANESSA ELLIS Ot I50.23 ACUTE ON CHRONIC SYSTOLIC (CONGESTIVE) H 07/03/2018 ELLIS POLLACK DO Ot J44.9 CHRONIC OBSTRUCTIVE PULMONARY DISEASE, U 07/03/2018 ELLIS POLLACK DO Ot K21.9 GASTRO-ESOPHAGEAL REFLUX DISEASE WITHOUT 07/03/2018 ELLIS POLLACK DO Ot Z79.01 [facility] (CURRENT) USE OF ANTICOAGULANT 07/03/2018 ELLIS POLLACK DO Ot Z87.44 0 PERSONAL HISTORY OF URINARY (TRACT) INFE 07/03/2018 ELLIS POLLACK DO Ot Z88.2 ALLERGY STATUS TO SULFONAMIDES STATUS 07/03/2018 ELLIS POLLACK DO Ot Z88.8 ALLERGY STATUS TO OTH DRUG/MEDS/BIOL SUB 07/03/2018 ELLIS POLLACK DO Ot Z91.09 OTH ALLERGY STATUS, OTH THAN TO DRUGS AN 07/03/2018 ELLIS POLLACK DO Ot Z95.81 0 PRESENCE OF AUTOMATIC (IMPLANTABLE) CARD 07/04/2018 LISA POLLACK DOI Ot D50.0 IRON DEFICIENCY ANEMIA SECONDARY TO BLOO 07/04/2018 LISA POLLACK DOI Ot E78.5 HYPERLIPIDEMIA, UNSPECIFIED 07/04/2018 LISA POLLACK DOI Ot E87.6 HYPOKALEMIA 07/04/2018 ELLIS POLLACK DO Ot F32.9 MAJOR DEPRESSIVE DISORDER, SINGLE EPISOD 07/04/2018 ELLIS POLLACK DO Ot F41.9 ANXIETY DISORDER, UNSPECIFIED 07/04/2018 LISA POLLACK DOI Ot G47.33 OBSTRUCTIVE SLEEP APNEA (ADULT) (PEDIATR 07/04/2018 LISA POLLACK DOI Ot I08.1 RHEUMATIC DISORDERS OF BOTH MITRAL AND T 07/04/2018 LISA POLLACK DOI Ot I11.0 HYPERTENSIVE HEART DISEASE WITH HEART FA 07/04/2018 LISA POLLACK DOI Ot I25.10 ATHSCL HEART DISEASE OF [place] CORONARY 07/04/2018 LISA POLLACK DOI Ot I27.20 PULMONARY HYPERTENSION, UNSPECIFIED 07/04/2018 LISA POLLACK DOI Ot I42.8 OTHER CARDIOMYOPATHIES 07/04/2018 LISA POLLACK DOI Ot I48.0 PAROXYSMAL ATRIAL FIBRILLATION 07/04/2018 LISA POLLACK DOI Ot I48.92 UNSPECIFIED ATRIAL FLUTTER 07/04/2018 LISA POLLACK DOI Ot I49.3 VENTRICULAR PREMATURE DEPOLARIZATION 07/04/2018 ELLIS POLLACK DO Ot I50.23 ACUTE ON CHRONIC SYSTOLIC (CONGESTIVE) H 07/04/2018 ELLIS POLLACK DO Ot J44.9 CHRONIC OBSTRUCTIVE PULMONARY DISEASE, U 07/04/2018 ELLIS POLLACK DO Ot K21.9 GASTRO-ESOPHAGEAL REFLUX DISEASE WITHOUT 07/04/2018 ELLIS POLLACK DO Ot Z79.01 [facility] (CURRENT) USE OF ANTICOAGULANT 07/04/2018 ELLIS POLLACK DO Ot Z87.44 0 PERSONAL HISTORY OF URINARY (TRACT) INFE 07/04/2018 ELLIS POLLACK DO Ot Z88.2 ALLERGY STATUS TO SULFONAMIDES STATUS 07/04/2018 ELLIS POLLACK DO Ot Z88.8 ALLERGY STATUS TO OTH DRUG/MEDS/BIOL SUB 07/04/2018 ELLIS POLLACK DO Ot Z91.09 OTH ALLERGY STATUS, OTH THAN TO DRUGS AN 07/04/2018 ELLIS POLLACK DO Ot Z95.81 0 PRESENCE OF AUTOMATIC (IMPLANTABLE) CARD 07/04/2018 ELLIS POLLACK DO Ot D50.0 IRON DEFICIENCY ANEMIA SECONDARY TO BLOO 07/04/2018 LISA POLLACK DOI Ot E78.5 HYPERLIPIDEMIA, UNSPECIFIED 07/04/2018 LISA POLLACK DOI Ot E87.6 HYPOKALEMIA 07/04/2018 ELLIS POLLACK DO Ot F32.9 MAJOR DEPRESSIVE DISORDER, SINGLE EPISOD 07/04/2018 LISA POLLACK DOI Ot F41.9 ANXIETY DISORDER, UNSPECIFIED 07/04/2018 LISA POLLACK DOI Ot G47.33 OBSTRUCTIVE SLEEP APNEA (ADULT) (PEDIATR 07/04/2018 LISA POLLACK DOI Ot I08.1 RHEUMATIC DISORDERS OF BOTH MITRAL AND T 07/04/2018 LISA POLLACK DOI Ot I11.0 HYPERTENSIVE HEART DISEASE WITH HEART FA 07/04/2018 LISA POLLACK DOI Ot I25.10 ATHSCL HEART DISEASE OF [place] CORONARY 07/04/2018 LISA POLLACK DOI Ot I27.20 PULMONARY HYPERTENSION, UNSPECIFIED 07/04/2018 LISA POLLACK DOI Ot I42.8 OTHER CARDIOMYOPATHIES 07/04/2018 LISA POLLACK DOI Ot I48.0 PAROXYSMAL ATRIAL FIBRILLATION 07/04/2018 LISA POLLACK DOI Ot I48.92 UNSPECIFIED ATRIAL FLUTTER 07/04/2018 ELLIS POLLACK DO Ot I49.3 VENTRICULAR PREMATURE DEPOLARIZATION 07/04/2018 ELLIS POLLACK DO Ot I50.23 ACUTE ON CHRONIC SYSTOLIC (CONGESTIVE) H 07/04/2018 ELLIS POLLACK DO Ot J44.9 CHRONIC OBSTRUCTIVE PULMONARY DISEASE, U 07/04/2018 ELLIS POLLACK DO Ot K21.9 GASTRO-ESOPHAGEAL REFLUX DISEASE WITHOUT 07/04/2018 ELLIS POLLACK DO Ot L29.9 PRURITUS, UNSPECIFIED 07/04/2018 ELLIS POLLACK DO Ot R05 COUGH 07/04/2018 ELLIS POLLACK DO Ot R11.0 NAUSEA 07/04/2018 ELLIS POLLACK DO Ot T46.90 5A ADVERSE EFFECT OF UNSP AGENTS AFF THE CA 07/04/2018 ELLIS POLLACK DO Ot Z79.01 RADIOLOGY SERVICES MANAGER (CURRENT) USE OF ANTICOAGULANT 07/04/2018 ELLIS POLLACK DO Ot Z87.44 0 PERSONAL HISTORY OF URINARY (TRACT) INFE 07/04/2018 ELLIS POLLACK DO Ot Z88.2 ALLERGY STATUS TO SULFONAMIDES STATUS 07/04/2018 ELLIS POLLACK DO Ot Z88.8 ALLERGY STATUS TO OTH DRUG/MEDS/BIOL SUB 07/04/2018 ELLIS POLLACK DO Ot Z91.09 OTH ALLERGY STATUS, OTH THAN TO DRUGS AN 07/04/2018 ELLIS POLLACK DO Ot Z95.81 0 PRESENCE OF AUTOMATIC (IMPLANTABLE) CARD 07/05/2018 BHAVNA JEFFERY GRADER TENDER Ot J90 PLEURAL EFFUSION, NOT ELSEWHERE CLASSIFI 07/05/2018 BHAVNA JEFFERY APRN Ot K57.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 07/05/2018 BHAVNA JEFFERY APRN Ot R16.0 HEPATOMEGALY, NOT ELSEWHERE CLASSIFIED 07/05/2018 BHAVNA JEFFERY APRN Ot R18.8 OTHER ASCITES 07/05/2018 BHAVNA JEFFERY APRN Ot Z90.710 ACQUIRED ABSENCE OF BOTH CERVIX AND UTER 07/05/2018 BHAVNA JEFFERY GRADER TENDER Ot Z95.818 PRESENCE OF OTHER CARDIAC IMPLANTS AND G 07/06/2018 KEKE VINES Ot E78.5 HYPERLIPIDEMIA, UNSPECIFIED 07/06/2018 KEKE VINES Ot I08.3 COMB RHEUMATIC DISORD OF MITRAL, AORTIC 07/06/2018 KEKE VINES Ot I10 ESSENTIAL (PRIMARY) HYPERTENSION 07/06/2018 KEKE VINES Ot I48.0 PAROXYSMAL ATRIAL FIBRILLATION 07/06/2018 KEKE VINES Ot R06.02 SHORTNESS OF BREATH 07/08/2018 KWAME QUEEN MD, Ot F32.9 MAJOR DEPRESSIVE DISORDER, SINGLE EPISOD 07/08/2018 KWAME QUEEN MD, Ot F41.9 ANXIETY DISORDER, UNSPECIFIED 07/08/2018 KWAME QUEEN MD, Ot G47.30 SLEEP APNEA, UNSPECIFIED 07/08/2018 KWAME QUEEN MD, Ot I11.0 HYPERTENSIVE HEART DISEASE WITH HEART FA 07/08/2018 KWAME QUEEN MD, Ot I25.2 OLD MYOCARDIAL INFARCTION 07/08/2018 KWAME QUEEN MD, Ot I42.9 CARDIOMYOPATHY, UNSPECIFIED 07/08/2018 KWAME QUEEN MD Ot I48.91 UNSPECIFIED ATRIAL FIBRILLATION 07/08/2018 KWAME QUEEN MD, Ot I50.9 HEART FAILURE, UNSPECIFIED 07/08/2018 KWAME QUEEN MD, Ot K21.9 GASTRO-ESOPHAGEAL REFLUX DISEASE WITHOUT 07/08/2018 KWAME QUEEN MD Ot R06.02 SHORTNESS OF BREATH 07/08/2018 KWAME QUEEN MD Ot Z77.22 CNTCT W AND EXPSR TO ENVIRON TOBACCO SMO 07/08/2018 KWAME QUEEN MD, Ot Z79.01 RADIOLOGY SERVICES MANAGER (CURRENT) USE OF ANTICOAGULANT 07/08/2018 KWAME QUEEN MD Ot Z82.49 FAMILY HX OF ISCHEM HEART DIS AND OTH DI 07/08/2018 KWAME QUEEN MD, Ot Z87.19 PERSONAL HISTORY OF OTHER DISEASES OF TH 07/08/2018 KWAME QUEEN MD, Ot Z87.440 PERSONAL HISTORY OF URINARY (TRACT) INFE 07/08/2018 KWAME QUEEN MD Ot Z88.2 ALLERGY STATUS TO SULFONAMIDES STATUS 07/08/2018 KWAME QUEEN MD, Ot Z88.8 ALLERGY STATUS TO OTH DRUG/MEDS/BIOL SUB 07/08/2018 KWAME QUEEN MD Ot Z90.710 ACQUIRED ABSENCE OF BOTH CERVIX AND UTER 07/08/2018 KWAME QUEEN MD Ot Z95.810 PRESENCE OF AUTOMATIC (IMPLANTABLE) CARD 07/11/2018 KWAME QUEEN MD, Ot F32.9 MAJOR DEPRESSIVE DISORDER, SINGLE EPISOD 07/11/2018 KWAME QUEEN MD, Ot F41.9 ANXIETY DISORDER, UNSPECIFIED 07/11/2018 KWAME QUEEN MD, Ot G47.30 SLEEP APNEA, UNSPECIFIED 07/11/2018 KWAME QUEEN MD, Ot I11.0 HYPERTENSIVE HEART DISEASE WITH HEART FA 07/11/2018 KWAME QUEEN MD, Ot I25.2 OLD MYOCARDIAL INFARCTION 07/11/2018 KWAME QUEEN MD, Ot I42.9 CARDIOMYOPATHY, UNSPECIFIED 07/11/2018 KWAME QUEEN MD, Ot I48.91 UNSPECIFIED ATRIAL FIBRILLATION 07/11/2018 KWAME QUEEN MD, Ot I50.9 HEART FAILURE, UNSPECIFIED 07/11/2018 KWAME QUEEN MD, Ot K21.9 GASTRO-ESOPHAGEAL REFLUX DISEASE WITHOUT 07/11/2018 KWAME QUEEN MD Ot R06.02 SHORTNESS OF BREATH 07/11/2018 KWAME QUEEN MD, Ot Z77.22 CNTCT W AND EXPSR TO ENVIRON TOBACCO SMO 07/11/2018 KWAME QUEEN MD Ot Z79.01 RADIOLOGY SERVICES MANAGER (CURRENT) USE OF ANTICOAGULANT 07/11/2018 KWAME QUEEN MD Ot Z82.49 FAMILY HX OF ISCHEM HEART DIS AND OTH DI 07/11/2018 KWAME QUEEN MD, Ot Z87.19 PERSONAL HISTORY OF OTHER DISEASES OF TH 07/11/2018 KWAME QUEEN MD, Ot Z87.440 PERSONAL HISTORY OF URINARY (TRACT) INFE 07/11/2018 KWAME QUEEN MD Ot Z88.2 ALLERGY STATUS TO SULFONAMIDES STATUS 07/11/2018 KWAME QUEEN MD Ot Z88.8 ALLERGY STATUS TO OTH DRUG/MEDS/BIOL SUB 07/11/2018 KWAME QUEEN MD Ot Z90.710 ACQUIRED ABSENCE OF BOTH CERVIX AND UTER 07/11/2018 BRET KUMARI, KWAME Juarez Ot Z95.810 PRESENCE OF AUTOMATIC (IMPLANTABLE) CARD 10/03/2018 SARAI TOBIAS DO Larry Ot V72. 84 EXAM PRE-OPERATIVE NOS 10/03/2018 KEKE VINES Ot 272.4 HYPERLIPIDEMIA NEC/NOS 10/03/2018 KEKE VINES Ot 278.00 OBESITY, NOS 10/03/2018 KEKE VINES Ot 401.9 HYPERTENSION NOS 10/03/2018 KEKE VINES Ot 427.1 PAROX VENTRIC TACHYCARD 10/03/2018 KEKE VINES Ot 785.1 PALPITATIONS 10/03/2018 ADRY KUMARI, ELISE Sosa Ot 272. 4 HYPERLIPIDEMIA NEC/NOS 10/03/2018 ELISE RIDER MD Ot 401. 9 HYPERTENSION NOS 10/03/2018 ADRY KUMARI, ELISE Sosa Ot 426. 11 ATRIOVENT BLOCK-1ST DEGR 10/03/2018 ELISE RIDER MD Ot 427. 1 PAROX VENTRIC TACHYCARD 10/03/2018 ELISE RIDER MD Ot 427. 69 PREMATURE BEATS NEC 10/03/2018 ADRY KUMARI, ELISE Sosa Ot 530. 81 ESOPHAGEAL REFLUX 10/03/2018 ADRY KUMARI, ELISE Sosa Ot V58. 69 OT MED,LT,CURRENT USE 10/03/2018 FRANCIS KUMARI, DEYA R Ot V76. 12 OTH SCREEN MAMMO-MALIGN NEOPLASM OF [place] 10/03/2018 Ot 272.4 HYPE RLIPIDEMIA NEC/NOS 10/03/2018 Ot 278.00 OBE SITY, NOS 10/03/2018 Ot 296.22 DEP RESSIVE DISORDER-MOD 10/03/2018 Ot 401.9 HYPE RTENSION NOS 10/03/2018 Ot 427.1 PARO X VENTRIC TACHYCARD 10/03/2018 Ot 785.1 PALP ITATIONS 10/03/2018 KEKE VINES Ot 397.0 TRICUSPID VALVE DISEASE 10/03/2018 KEKE VINES Ot 401.9 HYPERTENSION NOS 10/03/2018 KEKE VINES Ot 424.0 MITRAL VALVE DISORDER 10/03/2018 KEKE VINES Ot 427.1 PAROX VENTRIC TACHYCARD 10/03/2018 KEKE VINES Ot 427.69 PREMATURE BEATS NEC 10/03/2018 KEKE VINES Ot 786.09 RESPIRATORY ABNORM NEC 10/03/2018 DEYA BLANCO MD Ot 789. 00 ABDOMINAL PAIN, UNSPECIFIED SITE 10/03/2018 Ot 789.00 ABD OMINAL PAIN, UNSPECIFIED SITE 10/03/2018 DEYA BLANCO MD Ot V76. 12 OTH SCREEN MAMMO-MALIGN NEOPLASM OF [place] 10/03/2018 CAMILLA NAJERA, YULI S Ot 724. 1 PAIN IN THORACIC SPINE 10/03/2018 DEYA BLANCO MD Ot Z12. 31 ENCNTR SCREEN MAMMOGRAM FOR MALIGNANT NE 10/03/2018 KEKE VINES Ot E78.5 HYPERLIPIDEMIA, UNSPECIFIED 10/03/2018 KEKE VINES Ot I10 ESSENTIAL (PRIMARY) HYPERTENSION 10/03/2018 KEKE VINES Ot I47.2 VENTRICULAR TACHYCARDIA 10/03/2018 KEKE VINES Ot I48.0 PAROXYSMAL ATRIAL FIBRILLATION 10/03/2018 ELISE RIDER MD Ot E78. 5 HYPERLIPIDEMIA, UNSPECIFIED 10/03/2018 ELISE RIDER MD Ot I25. 10 ATHSCL HEART DISEASE OF [place] CORONARY 10/03/2018 LEISE RIDER MD Ot I47. 2 VENTRICULAR TACHYCARDIA 10/03/2018 ELISE RIDER MD Ot I48. 0 PAROXYSMAL ATRIAL FIBRILLATION 10/03/2018 ELISE RIDER MD Ot I48. 92 UNSPECIFIED ATRIAL FLUTTER 10/03/2018 ELISE RIDER MD Ot J44. 9 CHRONIC OBSTRUCTIVE PULMONARY DISEASE, U 10/03/2018 ELISE RIDER MD Ot Z79.899 OTHER RADIOLOGY SERVICES MANAGER (CURRENT) DRUG THERAPY 10/03/2018 ELISE RIDER MD Ot E78. 5 HYPERLIPIDEMIA, UNSPECIFIED 10/03/2018 ELISE RIDER MD Ot I10 ESSENTIAL (PRIMARY) HYPERTENSION 10/03/2018 ELISE RIDER MD Ot I25. 10 ATHSCL HEART DISEASE OF [place] CORONARY 10/03/2018 ELISE RIDER MD Ot I48. 91 UNSPECIFIED ATRIAL FIBRILLATION 10/03/2018 ELISE RIDER MD, Ot I48. 92 UNSPECIFIED ATRIAL FLUTTER 10/03/2018 ELISE RIDER MD, Ot I49. 5 SICK SINUS SYNDROME 10/03/2018 ELISE RIDER MD, Ot Z53. 8 PROCEDURE AND TREATMENT NOT CARRIED OUT 10/03/2018 ELISE RIDER MD, Ot Z79. 01 [facility] (CURRENT) USE OF ANTICOAGULANT 10/03/2018 ELISE RIDER MD, Ot Z79.899 OTHER RADIOLOGY SERVICES MANAGER (CURRENT) DRUG THERAPY 10/03/2018 ELISE RIDER MD, Ot Z95. 0 PRESENCE OF CARDIAC PACEMAKER 10/03/2018 CATHIE POPE DO Ot Z12.31 ENCNTR SCREEN MAMMOGRAM FOR MALIGNANT NE 10/03/2018 KEKE VINES Ot E78.5 HYPERLIPIDEMIA, UNSPECIFIED 10/03/2018 KEKE VINES Ot I08.1 RHEUMATIC DISORDERS OF BOTH MITRAL AND T 10/03/2018 KEKE VINES Ot I10 ESSENTIAL (PRIMARY) HYPERTENSION 10/03/2018 KEKE VINES Ot I48.91 UNSPECIFIED ATRIAL FIBRILLATION 10/03/2018 KEKE VINES Ot R06.02 SHORTNESS OF BREATH 10/03/2018 KEKE VINES Ot E78.2 MIXED HYPERLIPIDEMIA 10/03/2018 KEKE VINES Ot I10 ESSENTIAL (PRIMARY) HYPERTENSION 10/03/2018 KEKE VINES Ot I48.0 PAROXYSMAL ATRIAL FIBRILLATION 10/03/2018 KEKE VINES Ot R06.02 SHORTNESS OF BREATH 10/03/2018 TAHIR HERNANDEZ-Elsa Ot R31 .9 HEMATURIA, UNSPECIFIED 10/03/2018 TAHIR HERNANDEZ-Elsa Ot Z51.81 ENCOUNTER FOR THERAPEUTIC DRUG LEVEL MON 10/03/2018 TAHIR HERNANDEZ-C Ot Z79.899 OTHER [facility] (CURRENT) DRUG THERAPY 10/03/2018 FRANCIS KUMARI, DEYA Landeros Ot K57. 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 3 TYPICAL ATRIAL FLUTTER 10/03/2018 HORETNSIA KLINE MD Ot Z51. 81 ENCOUNTER FOR THERAPEUTIC DRUG LEVEL MON 10/03/2018 HORTENSIA KILNE MD Ot Z79.899 OTHER [facility] (CURRENT) DRUG THERAPY 10/03/2018 RITO NGUYEN APRN Ot J98.4 OTHER DISORDERS OF LUNG 10/03/2018 BHAVNA JEFFERY GRADER TENDER Ot K76.0 FATTY (CHANGE OF) LIVER, NOT ELSEWHERE C 10/03/2018 BHAVNA JEFFERY R GRADER TENDER Ot Z53.8 PROCEDURE AND TREATMENT NOT CARRIED OUT 10/03/2018 Ot K57.30 DVR TCLOS OF LG INT W/O PERFORATION OR AB 10/03/2018 Ot R31.0 VENECIA S HEMATURIA 10/03/2018 Ot Z87.440 PE RSONAL HISTORY OF URINARY (TRACT) INFE 10/03/2018 Ot Z90.49 ACQ UIRED ABSENCE OF OTHER SPECIFIED PART 10/03/2018 RITO NGUYEN APRN Ot J98.4 OTHER DISORDERS OF LUNG 10/03/2018 RITO NGUYEN APRN Ot R06.02 SHORTNESS OF BREATH 10/03/2018 JALYN DAILY DO S Ot Z12.31 ENCNTR SCREEN MAMMOGRAM FOR MALIGNANT NE 10/03/2018 BHAVNA JEFFERY R GRADER TENDER Ot J90 PLEURAL EFFUSION, NOT ELSEWHERE CLASSIFI 10/03/2018 BHAVNA JEFFERY R GRADER TENDER Ot K57.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 10/03/2018 DYLAN JEFFERYYSON R GRADER TENDER Ot R16.0 HEPATOMEGALY, NOT ELSEWHERE CLASSIFIED 10/03/2018 AVA BHAVNA R GRADER TENDER Ot R18.8 OTHER ASCITES 10/03/2018 BHAVNA JEFFERY R GRADER TENDER Ot Z90.710 ACQUIRED ABSENCE OF BOTH CERVIX AND UTER 10/03/2018 BHAVNA JEFFERY GRADER TENDER Ot Z95.818 PRESENCE OF OTHER CARDIAC IMPLANTS AND G 10/03/2018 BENNY JEFF KEKE K Ot E78.5 HYPERLIPIDEMIA, UNSPECIFIED 10/03/2018 BENNY JEFF KEKE K Ot I08.3 COMB RHEUMATIC DISORD OF MITRAL, AORTIC 10/03/2018 BENNY JEFF KEKE K Ot I10 ESSENTIAL (PRIMARY) HYPERTENSION 10/03/2018 BENNY JEFF KEKE K Ot I48.0 PAROXYSMAL ATRIAL FIBRILLATION 10/03/2018 BENNY JEFF KEKE K Ot R06.02 SHORTNESS OF BREATH 10/07/2018 SARAI TOBIAS DO Ot V72. 84 EXAM PRE-OPERATIVE NOS 10/07/2018 KEKE VINES Ot 272.4 HYPERLIPIDEMIA NEC/NOS 10/07/2018 BENNY JEFF KEKE K Ot 278.00 OBESITY, NOS 10/07/2018 BENNY JEFF KEKE K Ot 401.9 HYPERTENSION NOS 10/07/2018 BENNY JEFF KEKE K Ot 427.1 PAROX VENTRIC TACHYCARD 10/07/2018 BENNY JEFF KEKE K Ot 785.1 PALPITATIONS 10/07/2018 ELISE RIDER MD Ot 272. 4 HYPERLIPIDEMIA NEC/NOS 10/07/2018 ELISE RIDER MD Ot 401. 9 HYPERTENSION NOS 10/07/2018 ELISE RIDER MD Ot 426. 11 ATRIOVENT BLOCK-1ST DEGR 10/07/2018 ELISE RIDER MD Ot 427. 1 PAROX VENTRIC TACHYCARD 10/07/2018 ELISE RIDER MD Ot 427. 69 PREMATURE BEATS NEC 10/07/2018 ELISE RIDER MD Ot 530. 81 ESOPHAGEAL REFLUX 10/07/2018 ELISE RIDER MD Ot V58. 69 OTH MED,LT,CURRENT USE 10/07/2018 FRANCIS KUMARI, DEYA R Ot V76. 12 OTH SCREEN MAMMO-MALIGN NEOPLASM OF [place] 10/07/2018 Ot 272.4 HYPE RLIPIDEMIA NEC/NOS 10/07/2018 Ot 278.00 OBE SITY, NOS 10/07/2018 Ot 296.22 DEP RESSIVE DISORDER-MOD 10/07/2018 Ot 401.9 HYPE RTENSION NOS 10/07/2018 Ot 427.1 PARO X VENTRIC TACHYCARD 10/07/2018 Ot 785.1 PALP ITATIONS 10/07/2018 KEKE VINES Ot 397.0 TRICUSPID VALVE DISEASE 10/07/2018 KEKE VINES Ot 401.9 HYPERTENSION NOS 10/07/2018 KEKE VINES Ot 424.0 MITRAL VALVE DISORDER 10/07/2018 KEKE VINES Ot 427.1 PAROX VENTRIC TACHYCARD 10/07/2018 KEKE VINES Ot 427.69 PREMATURE BEATS NEC 10/07/2018 KEKE VINES Ot 786.09 RESPIRATORY ABNORM NEC 10/07/2018 FRANCIS KUMARI, DEYA Landeros Ot 789. 00 ABDOMINAL PAIN, UNSPECIFIED SITE 10/07/2018 Ot 789.00 ABD OMINAL PAIN, UNSPECIFIED SITE 10/07/2018 DEYA BLANCO MD Ot V76. 12 OTH SCREEN MAMMO-MALIGN NEOPLASM OF [place] 10/07/2018 LONG DC, YULI S Ot 724. 1 PAIN IN THORACIC SPINE 10/07/2018 DEYA BLANCO MD Ot Z12. 31 ENCNTR SCREEN MAMMOGRAM FOR MALIGNANT NE 10/07/2018 KEKE VINES Ot E78.5 HYPERLIPIDEMIA, UNSPECIFIED 10/07/2018 KEKE VINES Ot I10 ESSENTIAL (PRIMARY) HYPERTENSION 10/07/2018 KEKE VINES Ot I47.2 VENTRICULAR TACHYCARDIA 10/07/2018 KEKE VINES Ot I48.0 PAROXYSMAL ATRIAL FIBRILLATION 10/07/2018 ELISE RIDER MD Ot E78. 5 HYPERLIPIDEMIA, UNSPECIFIED 10/07/2018 ELISE RIDER MD Ot I25. 10 ATHSCL HEART DISEASE OF [place] CORONARY 10/07/2018 ELISE RIDER MD Ot I47. 2 VENTRICULAR TACHYCARDIA 10/07/2018 ELISE RIDER MD Ot I48. 0 PAROXYSMAL ATRIAL FIBRILLATION 10/07/2018 ELISE RIDER MD Ot I48. 92 UNSPECIFIED ATRIAL FLUTTER 10/07/2018 ELISE RIDER MD, Ot J44. 9 CHRONIC OBSTRUCTIVE PULMONARY DISEASE, U 10/07/2018 ELISE RIDER MD, Ot Z79.899 OTHER [facility] (CURRENT) DRUG THERAPY 10/07/2018 ELISE RIDER MD Ot E78. 5 HYPERLIPIDEMIA, UNSPECIFIED 10/07/2018 ELISE RIDER MD Ot I10 ESSENTIAL (PRIMARY) HYPERTENSION 10/07/2018 ELISE RIDER MD, Ot I25. 10 ATHSCL HEART DISEASE OF [place] CORONARY 10/07/2018 ELISE RIDER MD, Ot I48. 91 UNSPECIFIED ATRIAL FIBRILLATION 10/07/2018 ELISE RIDER MD, Ot I48. 92 UNSPECIFIED ATRIAL FLUTTER 10/07/2018 ELISE RIDER MD, Ot I49. 5 SICK SINUS SYNDROME 10/07/2018 ELISE RIDER MD Ot Z53. 8 PROCEDURE AND TREATMENT NOT CARRIED OUT 10/07/2018 ELISE RIDER MD, Ot Z79. 01 [facility] (CURRENT) USE OF ANTICOAGULANT 10/07/2018 ELISE RIDER MD, Ot Z79.899 OTHER [facility] (CURRENT) DRUG THERAPY 10/07/2018 ELISE RIDER MD, Ot Z95. 0 PRESENCE OF CARDIAC PACEMAKER 10/07/2018 CATHIE POPE DO Ot Z12.31 ENCNTR SCREEN MAMMOGRAM FOR MALIGNANT NE 10/07/2018 KEKE VINES Ot E78.5 HYPERLIPIDEMIA, UNSPECIFIED 10/07/2018 KEKE VINES Ot I08.1 RHEUMATIC DISORDERS OF BOTH MITRAL AND T 10/07/2018 KEKE VINES Ot I10 ESSENTIAL (PRIMARY) HYPERTENSION 10/07/2018 KEKE VINES Ot I48.91 UNSPECIFIED ATRIAL FIBRILLATION 10/07/2018 KEKE VINES Ot R06.02 SHORTNESS OF BREATH 10/07/2018 KEKE VINES Ot E78.2 MIXED HYPERLIPIDEMIA 10/07/2018 KEKE VINES Ot I10 ESSENTIAL (PRIMARY) HYPERTENSION 10/07/2018 KEKE VINES Ot I48.0 PAROXYSMAL ATRIAL FIBRILLATION 10/07/2018 KEKE VINES Ot R06.02 SHORTNESS OF BREATH 10/07/2018 KLEVERTAHIR ESTRADA PSYCHOLOGY ASSOCIATE-C Ot R31 .9 HEMATURIA, UNSPECIFIED 10/07/2018 TAHIR HERNANDEZ PSYCHOLOGY ASSOCIATE-C Ot Z51.81 ENCOUNTER FOR THERAPEUTIC DRUG LEVEL MON 10/07/2018 TAHIR HERNANDEZ PSYCHOLOGY ASSOCIATE-C Ot Z79.899 OTHER [facility] (CURRENT) DRUG THERAPY 10/07/2018 DEYA BLANCO MD Ot K57. 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 10/07/2018 RITO NGUYEN APRN Ot K21.9 GASTRO-ESOPHAGEAL REFLUX DISEASE WITHOUT 10/07/2018 RITO NGUYEN APRN Ot R06.09 OTHER FORMS OF DYSPNEA 10/07/2018 RITO NGUYEN APRN Ot R07.9 CHEST PAIN, UNSPECIFIED 10/07/2018 HORTENSIA KLINE MD Ot I48. 3 TYPICAL ATRIAL FLUTTER 10/07/2018 HORTENSIA KLINE MD Ot Z51. 81 ENCOUNTER FOR THERAPEUTIC DRUG LEVEL MON 10/07/2018 HORTENSIA KLINE MD Ot Z79.899 OTHER [facility] (CURRENT) DRUG THERAPY 10/07/2018 RITO NGUYEN APRN Ot J98.4 OTHER DISORDERS OF LUNG 10/07/2018 BHAVNA JEFFERY APRN Ot K76.0 FATTY (CHANGE OF) LIVER, NOT ELSEWHERE C 10/07/2018 BHAVNA JEFFERY GRADER TENDER Ot Z53.8 PROCEDURE AND TREATMENT NOT CARRIED OUT 10/07/2018 Ot K57.30 DVR TCLOS OF LG INT W/O PERFORATION OR AB 10/07/2018 Ot R31.0 VENECIA S HEMATURIA 10/07/2018 Ot Z87.440 PE RSONAL HISTORY OF URINARY (TRACT) INFE 10/07/2018 Ot Z90.49 ACQ UIRED ABSENCE OF OTHER SPECIFIED PART 10/07/2018 RITO NGUYEN APRN Ot J98.4 OTHER DISORDERS OF LUNG 10/07/2018 RITO NGUYEN APRN Ot R06.02 SHORTNESS OF BREATH 10/07/2018 JALYN DAILY DO S Ot Z12.31 ENCNTR SCREEN MAMMOGRAM FOR MALIGNANT NE 10/07/2018 AVABHAVNA R GRADER TENDER Ot J90 PLEURAL EFFUSION, NOT ELSEWHERE CLASSIFI 10/07/2018 AVABHAVNA R GRADER TENDER Ot K57.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 10/07/2018 AVABHAVNA R GRADER TENDER Ot R16.0 HEPATOMEGALY, NOT ELSEWHERE CLASSIFIED 10/07/2018 AVABHAVNA R GRADER TENDER Ot R18.8 OTHER ASCITES 10/07/2018 AVASHERRION R GRADER TENDER Ot Z90.710 ACQUIRED ABSENCE OF BOTH CERVIX AND UTER 10/07/2018 AVA BHAVNA R GRADER TENDER Ot Z95.818 PRESENCE OF OTHER CARDIAC IMPLANTS AND G 10/07/2018 KEKE VINES Ot E78.5 HYPERLIPIDEMIA, UNSPECIFIED 10/07/2018 KEKE VINES Ot I08.3 COMB RHEUMATIC DISORD OF MITRAL, AORTIC 10/07/2018 KEKE VINES Ot I10 ESSENTIAL (PRIMARY) HYPERTENSION 10/07/2018 KEKE VINES Ot I48.0 PAROXYSMAL ATRIAL FIBRILLATION 10/07/2018 KEKE VINES Ot R06.02 SHORTNESS OF BREATH 12/25/2018 BHAVNA JEFFERY R GRADER TENDER Ot K57.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 12/25/2018 AVABHAVNA R GRADER TENDER Ot Z90.49 ACQUIRED ABSENCE OF OTHER SPECIFIED PART 12/27/2018 DON KUMARI, ZURI Sosa Ot F32. 9 MAJOR DEPRESSIVE DISORDER, SINGLE EPISOD 12/27/2018 DON KUMARI, ZURI Sosa Ot F41. 9 ANXIETY DISORDER, UNSPECIFIED 12/27/2018 DON KUMARI, ZURI Sosa Ot G47. 30 SLEEP APNEA, UNSPECIFIED 12/27/2018 ZURI OCHOA MD Ot I10 ESSENTIAL (PRIMARY) HYPERTENSION 12/27/2018 ZURI OCHOA MD Ot I25. 2 OLD MYOCARDIAL INFARCTION 12/27/2018 ZURI OCHOA MD Ot I48. 91 UNSPECIFIED ATRIAL FIBRILLATION 12/27/2018 ZURI OCHOA MD Ot K21. 9 GASTRO-ESOPHAGEAL REFLUX DISEASE WITHOUT 12/27/2018 ZURI OCHOA MD Ot M47.814 SPONDYLOSIS W/O MYELOPATHY OR RADICULOPA 12/27/2018 ZURI OCHOA MD, Ot M47.816 SPONDYLOSIS W/O MYELOPATHY OR RADICULOPA 12/27/2018 ZURI OCHOA MD Ot M54. 41 LUMBAGO WITH SCIATICA, RIGHT SIDE 12/27/2018 ZURI OCHOA MD Ot M54. 5 LOW BACK PAIN 12/27/2018 ZURI OCHOA MD Ot S39.92XA UNSPECIFIED INJURY OF LOWER BACK, INITIA 12/27/2018 ZURI OCHOA MD, Ot Z77. 22 CNTCT W AND EXPSR TO ENVIRON TOBACCO SMO 12/27/2018 ZURI OCHOA MD Ot Z79. 01 [employer]OLOG[employer] SERVICES MANAGER (CURRENT) USE OF ANTICOAGULANT 12/27/2018 ZURI OCHOA MD Ot Z82. 49 FAMILY HX OF ISCHEM HEART DIS AND OTH DI 12/27/2018 ZURI OCHOA MD Ot Z87. 19 PERSONAL HISTORY OF OTHER DISEASES OF TH 12/27/2018 ZURI OCHOA MD Ot Z87.440 PERSONAL HISTORY OF URINARY (TRACT) INFE 12/27/2018 ZURI OCHOA MD Ot Z87. 59 PERSONAL HISTORY OF COMP OF PREG, CHLDBR 12/27/2018 ZURI OCHOA MD Ot Z88. 2 ALLERGY STATUS TO SULFONAMIDES STATUS 12/27/2018 ZURI OCHOA MD Ot Z88. 8 ALLERGY STATUS TO OTH DRUG/MEDS/BIOL SUB 12/27/2018 ZURI OCHOA MD Ot Z90.710 ACQUIRED ABSENCE OF BOTH CERVIX AND UTER 12/27/2018 ZURI OCHOA MD Ot Z95.810 PRESENCE OF AUTOMATIC (IMPLANTABLE) CARD 12/27/2018 ZURI OCHOA MD Ot Z98.890 OTHER SPECIFIED POSTPROCEDURAL STATES 12/30/2018 BHAVNA JEFFERY APRN Ot M47.814 SPONDYLOSIS W/O MYELOPATHY OR RADICULOPA 12/30/2018 BHAVNA JEFFERY APRN Ot M47.816 SPONDYLOSIS W/O MYELOPATHY OR RADICULOPA 12/30/2018 BHAVNA JEFFERY APRN Ot S29.9XXA UNSPECIFIED INJURY OF THORAX, INITIAL EN 12/30/2018 ZURI OCHOA MD Ot F32. 9 MAJOR DEPRESSIVE DISORDER, SINGLE EPISOD 12/30/2018 ZURI OCHOA MD Ot F41. 9 ANXIETY DISORDER, UNSPECIFIED 12/30/2018 ZURI OCHOA MD Ot G47. 30 SLEEP APNEA, UNSPECIFIED 12/30/2018 ZURI OCHOA MD Ot I10 ESSENTIAL (PRIMARY) HYPERTENSION 12/30/2018 ZURI OCHOA MD Ot I25. 2 OLD MYOCARDIAL INFARCTION 12/30/2018 ZURI OCHOA MD Ot I48. 91 UNSPECIFIED ATRIAL FIBRILLATION 12/30/2018 ZURI OCHOA MD Ot K21. 9 GASTRO-ESOPHAGEAL REFLUX DISEASE WITHOUT 12/30/2018 ZURI OCHOA MD Ot M54. 41 LUMBAGO WITH SCIATICA, RIGHT SIDE 12/30/2018 ZURI OCHOA MD Ot M54. 5 LOW BACK PAIN 12/30/2018 ZURI OCHOA MD Ot Z77. 22 CNTCT W AND EXPSR TO ENVIRON TOBACCO SMO 12/30/2018 ZURI OCHOA MD Ot Z79. 01 [facility] (CURRENT) USE OF ANTICOAGULANT 12/30/2018 ZURI OCHOA MD Ot Z82. 49 FAMILY HX OF ISCHEM HEART DIS AND OTH DI 12/30/2018 ZURI OCHOA MD Ot Z87. 19 PERSONAL HISTORY OF OTHER DISEASES OF TH 12/30/2018 ZURI OCHOA MD Ot Z87.440 PERSONAL HISTORY OF URINARY (TRACT) INFE 12/30/2018 ZURI OCHOA MD Ot Z87. 59 PERSONAL HISTORY OF COMP OF PREG, CHLDBR 12/30/2018 ZURI OCHOA MD Ot Z88. 2 ALLERGY STATUS TO SULFONAMIDES STATUS 12/30/2018 ZURI OCHOA MD Ot Z88. 8 ALLERGY STATUS TO OTH DRUG/MEDS/BIOL SUB 12/30/2018 ZURI OCHOA MD Ot Z90.710 ACQUIRED ABSENCE OF BOTH CERVIX AND UTER 12/30/2018 ZURI OCHOA MD Ot Z95.810 PRESENCE OF AUTOMATIC (IMPLANTABLE) CARD 12/30/2018 ZURI OCHOA MD Ot Z98.890 OTHER SPECIFIED POSTPROCEDURAL STATES 01/10/2019 ZURI OCHOA MD Ot F32. 9 MAJOR DEPRESSIVE DISORDER, SINGLE EPISOD 01/10/2019 ZURI OCHOA MD Ot F41. 9 ANXIETY DISORDER, UNSPECIFIED 01/10/2019 ZURI OCHOA MD Ot G47. 30 SLEEP APNEA, UNSPECIFIED 01/10/2019 ZURI OCHOA MD Ot I10 ESSENTIAL (PRIMARY) HYPERTENSION 01/10/2019 ZURI OCHOA MD Ot I25. 2 OLD MYOCARDIAL INFARCTION 01/10/2019 ZURI OCHOA MD Ot I48. 91 UNSPECIFIED ATRIAL FIBRILLATION 01/10/2019 ZURI OCHOA MD Ot K21. 9 GASTRO-ESOPHAGEAL REFLUX DISEASE WITHOUT 01/10/2019 ZURI OCHOA MD Ot M47.814 SPONDYLOSIS W/O MYELOPATHY OR RADICULOPA 01/10/2019 ZURI OCHOA MD Ot M47.816 SPONDYLOSIS W/O MYELOPATHY OR RADICULOPA 01/10/2019 ZURI OCHOA MD Ot M54. 41 LUMBAGO WITH SCIATICA, RIGHT SIDE 01/10/2019 ZURI OCHOA MD Ot M54. 5 LOW BACK PAIN 01/10/2019 ZURI OCHOA MD Ot S39.92XA UNSPECIFIED INJURY OF LOWER BACK, INITIA 01/10/2019 ZURI OCHOA MD Ot Z77. 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 49 FAMILY HX OF ISCHEM HEART DIS AND OTH DI 01/10/2019 ZURI OCHOA MD Ot Z87. 19 PERSONAL HISTORY OF OTHER DISEASES OF TH 01/10/2019 ZURI OCHOA MD Ot Z87.440 PERSONAL HISTORY OF URINARY (TRACT) INFE 01/10/2019 ZURI OCHOA MD Ot Z87. 59 PERSONAL HISTORY OF COMP OF PREG, CHLDBR 01/10/2019 ZURI OCHOA MD Ot Z88. 2 ALLERGY STATUS TO SULFONAMIDES STATUS 01/10/2019 ZURI OCHOA MD Ot Z88. 8 ALLERGY STATUS TO OTH DRUG/MEDS/BIOL SUB 01/10/2019 ZURI OCHOA MD Ot Z90.710 ACQUIRED ABSENCE OF BOTH CERVIX AND UTER 01/10/2019 DON KUMARI, ZURI Sosa Ot Z95.810 PRESENCE OF AUTOMATIC (IMPLANTABLE) CARD 01/10/2019 ZURI OCHOA MD Ot Z98.890 OTHER SPECIFIED POSTPROCEDURAL STATES 01/15/2019 BHAVNA JEFFERY APRN Ot K57.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 01/15/2019 BHAVNA JEFFERY APRN Ot Z90.49 ACQUIRED ABSENCE OF OTHER SPECIFIED PART 03/19/2019 NESSANDER DO, JALYN S Ot E03.9 HYPOTHYROIDISM, UNSPECIFIED 03/19/2019 ORENDER DO, JALYN S Ot K74.60 UNSPECIFIED CIRRHOSIS OF LIVER 03/19/2019 NESSANDER DO, JALYN S Ot Z90.49 ACQUIRED ABSENCE OF OTHER SPECIFIED PART 03/20/2019 JOYCE BOLTON MD Ot I42.0 DILATED CARDIOMYOPATHY 04/02/2019 BHAVNA JEFFERY APRN Ot K59.00 CONSTIPATION, UNSPECIFIED 04/02/2019 BHAVNA JEFFERY APRN Ot R10.32 LEFT LOWER QUADRANT PAIN 04/08/2019 NESSANDER DO, JALYN S Ot E03.9 HYPOTHYROIDISM, UNSPECIFIED 04/08/2019 ORENDER DO, JALYN S Ot K74.60 UNSPECIFIED CIRRHOSIS OF LIVER 04/08/2019 NESSANDER DO, JALYN S Ot Z90.49 ACQUIRED ABSENCE OF OTHER SPECIFIED PART 04/10/2019 JOYCE BOLTON MD Ot I42.0 DILATED CARDIOMYOPATHY 04/14/2019 Ot 272.4 HYPE RLIPIDEMIA NEC/NOS 04/14/2019 Ot 278.00 OBE SITY, NOS 04/14/2019 Ot 296.22 DEP RESSIVE DISORDER-MOD 04/14/2019 Ot 401.9 HYPE RTENSION NOS 04/14/2019 Ot 427.1 PARO X VENTRIC TACHYCARD 04/14/2019 Ot 785.1 PALP ITATIONS 04/14/2019 RITO NGUYEN APRN Ot J98.4 OTHER DISORDERS OF LUNG 04/14/2019 RITO NGUYEN APRN Ot R06.02 SHORTNESS OF BREATH 04/14/2019 NESSANDER DO JALYN S Ot Z12.31 ENCNTR SCREEN MAMMOGRAM FOR MALIGNANT NE 04/16/2019 BHAVNA JEFFERY GRADER TENDER Ot K59.00 CONSTIPATION, UNSPECIFIED 04/16/2019 BHAVNA JEFFERY GRADER TENDER Ot R10.32 LEFT LOWER QUADRANT PAIN 04/19/2019 NESSANDER , JALYN S Ot A04.72 ENTEROCOLITIS D/T CLOSTRIDIUM DIFFICILE, 04/19/2019 NESSANDER EDWIGE VANESSALINE S Ot E87.6 HYPOKALEMIA 04/19/2019 NESSANDER EDWIGE VANESSALINE S Ot F32.9 MAJOR DEPRESSIVE DISORDER, SINGLE EPISOD 04/19/2019 NESSAND DO, JALYN S Ot F41.9 ANXIETY DISORDER, UNSPECIFIED 04/19/2019 NESSAND DO, JALYN S Ot G47.30 SLEEP APNEA, UNSPECIFIED 04/19/2019 NESSAND DO, JALYN S Ot I08.1 RHEUMATIC DISORDERS OF BOTH MITRAL AND T 04/19/2019 EDWIGE DAILY DOLINE S Ot I11.0 HYPERTENSIVE HEART DISEASE WITH HEART FA 04/19/2019 SHARI , JALYN S Ot I13.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 HRT FAIL AND ST 04/19/2019 SHARI , JALYN S Ot I25.10 ATHSCL HEART DISEASE OF [place] CORONARY 04/19/2019 SHARI EDWIGE VANESSALINE S Ot I27.20 PULMONARY HYPERTENSION, UNSPECIFIED 04/19/2019 SHARIER EDWIGE VANESSALINE S Ot I42.9 CARDIOMYOPATHY, UNSPECIFIED 04/19/2019 SHARIER EDWIGE VANESSALINE S Ot I48.0 PAROXYSMAL ATRIAL FIBRILLATION 04/19/2019 SHARI THALIA VANESSAJALYN S Ot I49.5 SICK SINUS SYNDROME 04/19/2019 NESSANDER DO JALYN S Ot I50.22 CHRONIC SYSTOLIC (CONGESTIVE) HEART FAIL 04/19/2019 SHARIER EDWIGE VANESSALINE S Ot I50.9 HEART FAILURE, UNSPECIFIED 04/19/2019 NESSAND DO, JALYN S Ot K21.9 GASTRO-ESOPHAGEAL REFLUX DISEASE WITHOUT 04/19/2019 NESSANDER DOTHALIAJALYN S Ot K57.32 DVTRCLI OF LG INT W/O PERFORATION OR ABS 04/19/2019 NESSANDEDWIGE BARNETT DOLINE S Ot M54.9 DORSALGIA, UNSPECIFIED 04/19/2019 NESSANDER EDWIGE VANESSALINE S Ot N18.9 CHRONIC KIDNEY DISEASE, UNSPECIFIED 04/19/2019 NESSANDER EDWIGE VANESSALINE S Ot N28.9 DISORDER OF KIDNEY AND URETER, UNSPECIFI 04/19/2019 NESSANDEDWIGE BARNETT DOLINE S Ot Z23 ENCOUNTER FOR IMMUNIZATION 04/19/2019 JALYN DAILY DO S Ot Z77.22 CNTCT W AND EXPSR TO ENVIRON TOBACCO SMO 04/19/2019 NESSANDEDWIGE BARNETT DOLINE S Ot Z95.810 PRESENCE OF AUTOMATIC (IMPLANTABLE) CARD 04/21/2019 NESSANDEDWIGE BARNETT DOLINE S Ot Z12.31 ENCNTR SCREEN MAMMOGRAM FOR MALIGNANT NE 04/24/2019 EDWIGE DAILY DOLINE S Ot Z12.31 ENCNTR SCREEN MAMMOGRAM FOR MALIGNANT NE 05/05/2019 EDWIGE DAILY DOLINE S Ot Z12.31 ENCNTR SCREEN MAMMOGRAM FOR MALIGNANT NE 09/05/2019 W K57.32 Sig moid diverticulitis Edwige Dailyline S. 09/23/2019 W D64.9 Anem ia, unspecified Edwige Dailyline S. 09/23/2019 W I10 Essent ial (primary) hypertension Edwige Dailyline S. 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 09/25/2019 W E78.2 Mixe d hyperlipidemia Edwige Dailyline S. 09/25/2019 W I10 Essent ial (primary) hypertension Edwige Dailyline S. 09/25/2019 W I50.43 Acu te on chronic combined systolic (congestive) and diastolic (congestive) heart failure Edwige Dailyline S. 09/25/2019 W N18.9 Academic Support Director ruma kidney disease Edwige Dailyline S. 09/25/2019 W Z00.01 Enc ounter for general adult medical examination with abnormal findings Edwige Dailyline S. 09/25/2019 W Z79.01 Vin g term (current) use of 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 NessandEdwige barnettline S. 09/29/2019 W E78.2 Mixe d hyperlipidemia Edwige Dailyline S. 09/29/2019 W I10 Essent ial (primary) hypertension Edwige Dailyline S. 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 09/29/2019 W N18.9 Academic Support Director ruma kidney disease NessandEdwige barnettline S. 09/29/2019 W Z00.01 Enc ounter for general adult medical examination with abnormal findings Edwige Dailyline S. 09/29/2019 W Z79.01 Vin g term (current) use of 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 NessandEdwige barnettline S. 10/04/2019 ORENDER DO, JALYN S Ot D64.9 ANEMIA, UNSPECIFIED 10/04/2019 ORENDER DO, JALYN S Ot I11.0 HYPERTENSIVE HEART DISEASE WITH HEART FA 10/04/2019 NESSANDER DO, JALYN S Ot I48.20 CHRONIC ATRIAL FIBRILLATION, UNSPECIFIED 10/04/2019 ORENDER DO, JALYN S Ot I50.42 CHRONIC COMBINED SYSTOLIC AND DIASTOLIC 11/19/2019 W I95.9 Hypo tension Nessander, Jalyn S. 11/19/2019 W R35.8 Polyuria Nessander, Jalyn S. 11/19/2019 W R42 Dizzin ess and giddiness Orender, Jalyn S. 11/19/2019 W I95.9 Hypo tension Nessander, Jalyn S. 11/19/2019 W R35.8 Polyuria Orender, Jalyn S. 11/19/2019 W R42 Dizzin ess and giddiness Orender, Jalyn S. 11/19/2019 W I95.9 Hypo tension Orender, Jalyn S. 11/19/2019 W R35.8 Polyuria Orender, Jalyn S. 11/19/2019 W R42 Dizzin ess and giddiness Orender, Jalyn S. 11/24/2019 W I95.9 Hypo tension Nessander, Jalyn S. 11/24/2019 W N18.9 Academic Support Director ruma kidney disease NessaJalyn mohan S. 11/24/2019 W I95.9 Hypo tension Jalyn Daily S. 11/24/2019 W N18.9 Academic Support Director ruma kidney disease Jalyn Daily S. 01/30/2020 W N39.0 Urin sandra tract infection, site not specified Ava, Bhavna 01/30/2020 W R10.32 Lef t lower quadrant pain Ava, Bhavna 02/02/2020 W N39.0 Urin sandra tract infection, site not specified Ava, Bhavna 02/02/2020 W R10.32 Lef t lower quadrant pain Ava, Bhavna 02/05/2020 W M79.671 Pa in in right foot Ava, Bhavna 02/05/2020 W M79.671 Pa in in right foot Ava, Bhavna 02/05/2020 W M79.671 Pa in in right foot Ava, Bhavna 02/06/2020 EDWIGE DAILY DOLINE S Ot M79.671 PAIN IN RIGHT FOOT 02/06/2020 THALIA DAILY DOQUELINE S Ot Z86.718 PERSONAL HISTORY OF OTHER VENOUS THROMBO Procedures Code Description Performed By Per formed On [id number] IN SERTION OF PACEMAKER LEAD INTO RIGHT A 11/09/2016 [id number] IN SERTION OF PACEMAKER LEAD INTO R VENTR 11/09/2016 [id number] IN SERT PACE. DUAL VIVEK IN CHEST SUBCU/FA 11/09/2016 [id number] DE STRUCTION OF RIGHT LOBE LIVER, OPEN AP 01/07/2018 [id number] RE SECTION OF GALLBLADDER, PERCUTANEOUS E 01/07/2018 [id number] CO NTROL BLEEDING IN GASTROINTESTINAL TRA 01/07/2018 [id number] FL UOROSCOPY OF BILE DUCTS USING LOW OSMO 01/07/2018 Results Test Result Range Automated blood complete blood count (he mogram) panel - 10/04/16 11:50 Blood leukocytes automated count (number/volume) 7.7 10*3/uL 4.3-11.0 Blood erythrocytes automated count (number/volume) 4.04 10*6/uL 4.35-5.85 Venous blood hemoglobin measurement (mass/volume) 11.6 g/dL 11.5-16.0 Blood hematocrit (volume fraction) 35 % 35-52 Automated erythrocyte mean corpuscular volume 86 [ foz_us] 80-99 Automated erythrocyte mean corpuscular h emoglobin (mass per erythrocyte) 29 pg 25-34 Automated erythrocyte mean corpuscular h emoglobin concentration measurement (mass/volume) 33 g/dL 32-36 Automated erythrocyte distribution width ratio 13. 9 % 10.0- 14.5 Automated blood platelet count (count/volume) 301 10*3/uL 130-400 Automated blood platelet mean volume measurement 9.4 [foz_us] 7.4-10.4 Comprehensive metabolic panel - 10/04/16 11:50 Serum or plasma sodium measurement (moles/volume) 140 mmol/L 135-145 Serum or plasma potassium measurement (moles/volume) 4.0 mmol/L 3.6-5.0 Serum or plasma chloride measurement (moles/volume) 105 mmol/L 98-107 Carbon dioxide 29 mmol/L 21-32 Serum or plasma anion gap determination (moles/volume) 6 mmol/L 5-14 Serum or plasma urea nitrogen measurement (mass/volume ) 13 mg/dL 7-18 Serum or plasma creatinine measurement (mass/volume) 0.75 mg/dL 0.60-1.30 Serum or plasma urea nitrogen/creatinine mass ratio 17 NRG Serum or plasma creatinine measurement w ith calculation of estimated glomerular filtration rate > NRG Serum or plasma glucose measurement (mass/volume) 98 mg/dL 70-105 Serum or plasma calcium measurement (mass/volume) 8.7 mg/dL 8.5-10.1 Serum or plasma total bilirubin measurement (mass/volu me) 0.6 mg/dL 0.1-1.0 Serum or plasma alkaline phosphatase keith surement (enzymatic activity/volume) 78 U/L 40-136 Serum or plasma aspartate aminotransfera se measurement (enzymatic activity/volume) 13 U/L 5-34 Serum or plasma alanine aminotransferase measurement (enzymatic activity/volume) 11 U/L 0-55 Serum or plasma protein measurement (mass/volume) 6.9 g/dL 6.4-8.2 Serum or plasma albumin measurement (mass/volume) 4.2 g/dL 3.2-4.5 PT panel in platelet poor plasma by coag ulation assay - 10/04/16 11:50 Prothrombin time (PT) in platelet poor plasma by coagu lation assay 26.3 s 12.2-14.7 INR in platelet poor plasma or blood by coagulation as say 2.4 0.8-1.4 Activated partial thromboplastin time (a PTT) in platelet poor plasma bycoagulation assay - 10/04/16 11:50 Activated partial thromboplastin time (a PTT) in platelet poor plasma bycoagulation assay 53 s 24-35 Methicillin resistant Staphylococcus aur eus (MRSA) screening culture - 10/04/16 11:50 Methicillin resistant Staphylococcus aureus (MRSA) scr eening culture NEG NRG Complete blood count (CBC) with automate d white blood cell (WBC) differential - 10/31/16 15:00 Blood leukocytes automated count (number/volume) 10.4 10*3/uL 4.3-11.0 Blood erythrocytes automated count (number/volume) 4.09 10*6/uL 4.35-5.85 Venous blood hemoglobin measurement (mass/volume) 11.6 g/dL 11.5-16.0 Blood hematocrit (volume fraction) 35 % 35-52 Automated erythrocyte mean corpuscular volume 86 [ foz_us] 80-99 Automated erythrocyte mean corpuscular h emoglobin (mass per erythrocyte) 28 pg 25-34 Automated erythrocyte mean corpuscular h emoglobin concentration measurement (mass/volume) 33 g/dL 32-36 Automated erythrocyte distribution width ratio 14. 3 % 10.0- 14.5 Automated blood platelet count (count/volume) 329 10*3/uL 130-400 Automated blood platelet mean volume measurement 9.6 [foz_us] 7.4-10.4 Automated blood neutrophils/100 leukocytes 63 % 42-75 Automated blood lymphocytes/100 leukocytes 29 % 12-44 Blood monocytes/100 leukocytes 6 % 0-12 Automated blood eosinophils/100 leukocytes 1 % 0-10 Automated blood basophils/100 leukocytes 0 % 0-10 Blood neutrophils automated count (number/volume) 6.5 10*3 1.8-7.8 Blood lymphocytes automated count (number/volume) 3.1 10*3 1.0-4.0 Blood monocytes automated count (number/volume) 0. 6 10*3 0.0-1.0 Automated eosinophil count 0.1 10*3/uL 0 .0-0.3 Automated blood basophil count (count/volume) 0.0 10*3/uL 0.0-0.1 PT panel in platelet poor plasma by coag ulation assay - 10/31/16 15:00 Prothrombin time (PT) in platelet poor plasma by coagu lation assay 23.9 s 12.2-14.7 INR in platelet poor plasma or blood by coagulation as say 2.2 0.8-1.4 Comprehensive metabolic panel - 10/31/16 15:00 Serum or plasma sodium measurement (moles/volume) 141 mmol/L 135-145 Serum or plasma potassium measurement (moles/volume) 3.4 mmol/L 3.6-5.0 Serum or plasma chloride measurement (moles/volume) 105 mmol/L 98-107 Carbon dioxide 26 mmol/L 21-32 Serum or plasma anion gap determination (moles/volume) 10 mmol/L 5-14 Serum or plasma urea nitrogen measurement (mass/volume ) 13 mg/dL 7-18 Serum or plasma creatinine measurement (mass/volume) 0.69 mg/dL 0.60-1.30 Serum or plasma urea nitrogen/creatinine mass ratio 19 NRG Serum or plasma creatinine measurement w ith calculation of estimated glomerular filtration rate > NRG Serum or plasma glucose measurement (mass/volume) 92 mg/dL 70-105 Serum or plasma calcium measurement (mass/volume) 8.9 mg/dL 8.5-10.1 Serum or plasma total bilirubin measurement (mass/volu me) 0.5 mg/dL 0.1-1.0 Serum or plasma alkaline phosphatase keith surement (enzymatic activity/volume) 83 U/L 40-136 Serum or plasma aspartate aminotransfera se measurement (enzymatic activity/volume) 13 U/L 5-34 Serum or plasma alanine aminotransferase measurement (enzymatic activity/volume) 13 U/L 0-55 Serum or plasma protein measurement (mass/volume) 6.9 g/dL 6.4-8.2 Serum or plasma albumin measurement (mass/volume) 4.2 g/dL 3.2-4.5 Magnesium - 10/31/16 15:00 Magnesium 2.1 mg/dL 1.8-2.4 Serum or plasma troponin i.cardiac measu rement (mass/volume) - 10/31/16 15:00 Serum or plasma troponin i.cardiac measurement (mass/v olume) < ng/mL <0.30 Lipase - 10/31/16 15:00 Lipase 14 U/L 8-78 Serum or plasma lithium measurement (mol es/volume) - 10/31/16 15:00 BNP level 151.9 pg/mL <100.0 PT panel in platelet poor plasma by coag ulation assay - 11/07/16 19:42 Prothrombin time (PT) in platelet poor plasma by coagu lation assay 25.4 s 12.2-14.7 INR in platelet poor plasma or blood by coagulation as say 2.3 0.8-1.4 Activated partial thromboplastin time (a PTT) in platelet poor plasma bycoagulation assay - 11/07/16 19:42 Activated partial thromboplastin time (a PTT) in platelet poor plasma bycoagulation assay 49 s 24-35 Comprehensive metabolic panel - 11/07/16 19:42 Serum or plasma sodium measurement (moles/volume) 140 mmol/L 135-145 Serum or plasma potassium measurement (moles/volume) 3.5 mmol/L 3.6-5.0 Serum or plasma chloride measurement (moles/volume) 104 mmol/L 98-107 Carbon dioxide 27 mmol/L 21-32 Serum or plasma anion gap determination (moles/volume) 9 mmol/L 5-14 Serum or plasma urea nitrogen measurement (mass/volume ) 13 mg/dL 7-18 Serum or plasma creatinine measurement (mass/volume) 0.81 mg/dL 0.60-1.30 Serum or plasma urea nitrogen/creatinine mass ratio 16 NRG Serum or plasma creatinine measurement w ith calculation of estimated glomerular filtration rate > NRG Serum or plasma glucose measurement (mass/volume) 95 mg/dL 70-105 Serum or plasma calcium measurement (mass/volume) 9.5 mg/dL 8.5-10.1 Serum or plasma total bilirubin measurement (mass/volu me) 0.5 mg/dL 0.1-1.0 Serum or plasma alkaline phosphatase keith surement (enzymatic activity/volume) 87 U/L 40-136 Serum or plasma aspartate aminotransfera se measurement (enzymatic activity/volume) 14 U/L 5-34 Serum or plasma alanine aminotransferase measurement (enzymatic activity/volume) 9 U/L 0-55 Serum or plasma protein measurement (mass/volume) 7.3 g/dL 6.4-8.2 Serum or plasma albumin measurement (mass/volume) 4.4 g/dL 3.2-4.5 Magnesium - 11/07/16 19:42 Magnesium 2.0 mg/dL 1.8-2.4 Automated blood complete blood count (TrackR mogram) panel - 11/07/16 19:42 Blood leukocytes automated count (number/volume) 11.7 10*3/uL 4.3-11.0 Blood erythrocytes automated count (number/volume) 4.49 10*6/uL 4.35-5.85 Venous blood hemoglobin measurement (mass/volume) 12.7 g/dL 11.5-16.0 Blood hematocrit (volume fraction) 38 % 35-52 Automated erythrocyte mean corpuscular volume 85 [ foz_us] 80-99 Automated erythrocyte mean corpuscular h emoglobin (mass per erythrocyte) 28 pg 25-34 Automated erythrocyte mean corpuscular h emoglobin concentration measurement (mass/volume) 33 g/dL 32-36 Automated erythrocyte distribution width ratio 14. 1 % 10.0- 14.5 Automated blood platelet count (count/volume) 371 10*3/uL 130-400 Automated blood platelet mean volume measurement 9.8 [foz_us] 7.4-10.4 Serum or plasma troponin i.cardiac measu rement (mass/volume) - 11/07/16 19:42 Serum or plasma troponin i.cardiac measurement (mass/v olume) < ng/mL <0.30 THYROID STIMULATING HORMONE - 11/07/16 1 9:42 THYROID STIMULATING HORMONE 1.70 u[iU]/mL 0.35-4.94 PT panel in platelet poor plasma by coag ulation assay - 11/08/16 09:19 Prothrombin time (PT) in platelet poor plasma by coagu lation assay 25.5 s 12.2-14.7 INR in platelet poor plasma or blood by coagulation as say 2.3 0.8-1.4 PT panel in platelet poor plasma by coag ulation assay - 11/09/16 03:20 Prothrombin time (PT) in platelet poor plasma by coagu lation assay 24.7 s 12.2-14.7 INR in platelet poor plasma or blood by coagulation as say 2.3 0.8-1.4 Automated blood complete blood count (TrackR mogram) panel - 11/10/16 03:35 Blood leukocytes automated count (number/volume) 10.9 10*3/uL 4.3-11.0 Blood erythrocytes automated count (number/volume) 4.20 10*6/uL 4.35-5.85 Venous blood hemoglobin measurement (mass/volume) 11.7 g/dL 11.5-16.0 Blood hematocrit (volume fraction) 36 % 35-52 Automated erythrocyte mean corpuscular volume 87 [ foz_us] 80-99 Automated erythrocyte mean corpuscular h emoglobin (mass per erythrocyte) 28 pg 25-34 Automated erythrocyte mean corpuscular h emoglobin concentration measurement (mass/volume) 32 g/dL 32-36 Automated erythrocyte distribution width ratio 14. 2 % 10.0- 14.5 Automated blood platelet count (count/volume) 317 10*3/uL 130-400 Automated blood platelet mean volume measurement 9.7 [foz_us] 7.4-10.4 Comprehensive metabolic panel - 11/10/16 03:35 Serum or plasma sodium measurement (moles/volume) 140 mmol/L 135-145 Serum or plasma potassium measurement (moles/volume) 4.1 mmol/L 3.6-5.0 Serum or plasma chloride measurement (moles/volume) 106 mmol/L 98-107 Carbon dioxide 24 mmol/L 21-32 Serum or plasma anion gap determination (moles/volume) 10 mmol/L 5-14 Serum or plasma urea nitrogen measurement (mass/volume ) 12 mg/dL 7-18 Serum or plasma creatinine measurement (mass/volume) 0.73 mg/dL 0.60-1.30 Serum or plasma urea nitrogen/creatinine mass ratio 16 NRG Serum or plasma creatinine measurement w ith calculation of estimated glomerular filtration rate > NRG Serum or plasma glucose measurement (mass/volume) 84 mg/dL 70-105 Serum or plasma calcium measurement (mass/volume) 8.8 mg/dL 8.5-10.1 Serum or plasma total bilirubin measurement (mass/volu me) 0.7 mg/dL 0.1-1.0 Serum or plasma alkaline phosphatase keith surement (enzymatic activity/volume) 72 U/L 40-136 Serum or plasma aspartate aminotransfera se measurement (enzymatic activity/volume) 14 U/L 5-34 Serum or plasma alanine aminotransferase measurement (enzymatic activity/volume) 8 U/L 0-55 Serum or plasma protein measurement (mass/volume) 6.5 g/dL 6.4-8.2 Serum or plasma albumin measurement (mass/volume) 3.9 g/dL 3.2-4.5 Complete urinalysis with reflex to cultu re - 12/08/16 08:55 Urine color determination YELLOW NRG Urine clarity determination CLEAR NR G Urine pH measurement by test strip 6 5-9 Specific gravity of urine by test strip 1.020 1.016-1.022 Urine protein assay by test strip, semi-quantitative 2+ NEGATIVE Urine glucose detection by automated test strip NE GATIVE NEGATIVE Erythrocytes detection in urine sediment by light micr oscopy 2+ NEGATIVE Urine ketones detection by automated test strip 1+ NEGATIVE Urine nitrite detection by test strip NEGATIVE NEGATIVE Urine total bilirubin detection by test strip NEGA TIVE NEGATIVE Urine urobilinogen measurement by automated test strip (mass/volume) NORMAL NORMAL Urine leukocyte esterase detection by dipstick 1+ NEGATIVE Automated urine sediment erythrocyte cou nt by microscopy (number/high power field) NONE NRG Automated urine sediment leukocyte count by microscopy (number/high power field) [HPF] NRG Bacteria detection in urine sediment by light microsco py NEGATIVE NRG Squamous epithelial cells detection in u rine sediment by light microscopy 2-5 NRG Crystals detection in urine sediment by light microsco py NONE NRG Casts detection in urine sediment by light microscopy PRESENT NRG Mucus detection in urine sediment by light microscopy NEGATIVE NRG Complete urinalysis with reflex to culture NO NRG Hyaline casts detection in urine sediment by light kerline roscopy RARE NRG Complete blood count (CBC) with automate d white blood cell (WBC) differential - 12/08/16 09:05 Blood leukocytes automated count (number/volume) 14.6 10*3/uL 4.3-11.0 Blood erythrocytes automated count (number/volume) 4.11 10*6/uL 4.35-5.85 Venous blood hemoglobin measurement (mass/volume) 11.5 g/dL 11.5-16.0 Blood hematocrit (volume fraction) 36 % 35-52 Automated erythrocyte mean corpuscular volume 87 [ foz_us] 80-99 Automated erythrocyte mean corpuscular h emoglobin (mass per erythrocyte) 28 pg 25-34 Automated erythrocyte mean corpuscular h emoglobin concentration measurement (mass/volume) 32 g/dL 32-36 Automated erythrocyte distribution width ratio 14. 1 % 10.0- 14.5 Automated blood platelet count (count/volume) 326 10*3/uL 130-400 Automated blood platelet mean volume measurement 9.2 [foz_us] 7.4-10.4 Automated blood neutrophils/100 leukocytes 76 % 42-75 Automated blood lymphocytes/100 leukocytes 13 % 12-44 Blood monocytes/100 leukocytes 6 % 0-12 Automated blood eosinophils/100 leukocytes 5 % 0-10 Automated blood basophils/100 leukocytes 0 % 0-10 Blood neutrophils automated count (number/volume) 11.1 10*3 1.8-7.8 Blood lymphocytes automated count (number/volume) 1.9 10*3 1.0-4.0 Blood monocytes automated count (number/volume) 0. 8 10*3 0.0-1.0 Automated eosinophil count 0.8 10*3/uL 0 .0-0.3 Automated blood basophil count (count/volume) 0.0 10*3/uL 0.0-0.1 Blood manual differential performed dete ction - 12/08/16 09:05 Blood monocytes/100 leukocytes 2 % NRG Manual blood segmented neutrophils/100 leukocytes 74 % NRG Blood band neutrophils/100 leukocytes 1 % NRG Manual blood lymphocytes/100 leukocytes 17 % NRG Manual eosinophils/100 leukocytes in nose 6 % NRG Manual blood basophils/100 leukocytes 0 % NRG Blood ovalocytes detection by light microscopy [facility] Comprehensive metabolic panel - 12/08/16 09:05 Serum or plasma sodium measurement (moles/volume) 138 mmol/L 135-145 Serum or plasma potassium measurement (moles/volume) 3.5 mmol/L 3.6-5.0 Serum or plasma chloride measurement (moles/volume) 100 mmol/L 98-107 Carbon dioxide 26 mmol/L 21-32 Serum or plasma anion gap determination (moles/volume) 12 mmol/L 5-14 Serum or plasma urea nitrogen measurement (mass/volume ) 11 mg/dL 7-18 Serum or plasma creatinine measurement (mass/volume) 0.80 mg/dL 0.60-1.30 Serum or plasma urea nitrogen/creatinine mass ratio 14 NRG Serum or plasma creatinine measurement w ith calculation of estimated glomerular filtration rate > NRG Serum or plasma glucose measurement (mass/volume) 109 mg/dL 70-105 Serum or plasma calcium measurement (mass/volume) 9.0 mg/dL 8.5-10.1 Serum or plasma total bilirubin measurement (mass/volu me) 1.4 mg/dL 0.1-1.0 Serum or plasma alkaline phosphatase keith surement (enzymatic activity/volume) 79 U/L 40-136 Serum or plasma aspartate aminotransfera se measurement (enzymatic activity/volume) 12 U/L 5-34 Serum or plasma alanine aminotransferase measurement (enzymatic activity/volume) 9 U/L 0-55 Serum or plasma protein measurement (mass/volume) 7.5 g/dL 6.4-8.2 Serum or plasma albumin measurement (mass/volume) 4.1 g/dL 3.2-4.5 Lipase - 12/08/16 09:05 Lipase 9 U/L 8-78 Serum or plasma C reactive protein measu rement (mass/volume) - 12/08/16 09:05 Serum or plasma C reactive protein measurement (mass/v olume) 16.70 mg/dL 0.00-0.50 C DIFFICILE AG + TOXIN A/B. - 12/08/16 0 9:20 CALL POSITIVES (F1 HELP) CALLED TO ZIYAD AT 1120, 6-2-17/KD NRG SPECIAL CONTACT SPECIAL CONTACT PRECAUTIONS NEEDED NRG RESULTS POSITIVE FOR ANTIGEN AND TOXIN A/B NRG Stool leukocytes detection by light micr oscopy - 12/08/16 09:20 FECAL WBC RESULTS FEW WBC'S OBSERVED ON DIRECT SME AR NRG FECAL NOTE FECAL LEUKOCYTES MAY BE INTE RMITTENTLY PRESENT OR NRG FECAL NOTE UNEVENLY DISTRIBUTED IN STOO L SPECIMENS, AND WBC NRG FECAL NOTE MORPHOLOGY DEGRADES DURING TRANSPORT NRG FECAL NOTE NOTE: NRG Stool bacteria identification by culture - 12/08/16 09:20 Stool bacteria identification by culture N2 NRG PT panel in platelet poor plasma by coag ulation assay - 12/08/16 13:36 Prothrombin time (PT) in platelet poor plasma by coagu lation assay 29.8 s 12.2-14.7 INR in platelet poor plasma or blood by coagulation as say 2.9 0.8-1.4 Complete blood count (CBC) with automate d white blood cell (WBC) differential - 12/09/16 05:35 Blood leukocytes automated count (number/volume) 14.7 10*3/uL 4.3-11.0 Blood erythrocytes automated count (number/volume) 3.83 10*6/uL 4.35-5.85 Venous blood hemoglobin measurement (mass/volume) 10.4 g/dL 11.5-16.0 Blood hematocrit (volume fraction) 34 % 35-52 Automated erythrocyte mean corpuscular volume 89 [ foz_us] 80-99 Automated erythrocyte mean corpuscular h emoglobin (mass per erythrocyte) 27 pg 25-34 Automated erythrocyte mean corpuscular h emoglobin concentration measurement (mass/volume) 31 g/dL 32-36 Automated erythrocyte distribution width ratio 14. 4 % 10.0- 14.5 Automated blood platelet count (count/volume) 310 10*3/uL 130-400 Automated blood platelet mean volume measurement 9.4 [foz_us] 7.4-10.4 Automated blood neutrophils/100 leukocytes 78 % 42-75 Automated blood lymphocytes/100 leukocytes 12 % 12-44 Blood monocytes/100 leukocytes 8 % 0-12 Automated blood eosinophils/100 leukocytes 2 % 0-10 Automated blood basophils/100 leukocytes 0 % 0-10 Blood neutrophils automated count (number/volume) 11.5 10*3 1.8-7.8 Blood lymphocytes automated count (number/volume) 1.7 10*3 1.0-4.0 Blood monocytes automated count (number/volume) 1. 1 10*3 0.0-1.0 Automated eosinophil count 0.3 10*3/uL 0 .0-0.3 Automated blood basophil count (count/volume) 0.0 10*3/uL 0.0-0.1 PT panel in platelet poor plasma by coag ulation assay - 12/09/16 05:35 Prothrombin time (PT) in platelet poor plasma by coagu lation assay 36.0 s 12.2-14.7 INR in platelet poor plasma or blood by coagulation as say 3.6 0.8-1.4 Comprehensive metabolic panel - 12/09/16 05:35 Serum or plasma sodium measurement (moles/volume) 139 mmol/L 135-145 Serum or plasma potassium measurement (moles/volume) 3.6 mmol/L 3.6-5.0 Serum or plasma chloride measurement (moles/volume) 104 mmol/L 98-107 Carbon dioxide 24 mmol/L 21-32 Serum or plasma anion gap determination (moles/volume) 11 mmol/L 5-14 Serum or plasma urea nitrogen measurement (mass/volume ) 6 mg/dL 7-18 Serum or plasma creatinine measurement (mass/volume) 0.78 mg/dL 0.60-1.30 Serum or plasma urea nitrogen/creatinine mass ratio 8 NRG Serum or plasma creatinine measurement w ith calculation of estimated glomerular filtration rate > NRG Serum or plasma glucose measurement (mass/volume) 104 mg/dL 70-105 Serum or plasma calcium measurement (mass/volume) 8.2 mg/dL 8.5-10.1 Serum or plasma total bilirubin measurement (mass/volu me) 0.6 mg/dL 0.1-1.0 Serum or plasma alkaline phosphatase keith surement (enzymatic activity/volume) 62 U/L 40-136 Serum or plasma aspartate aminotransfera se measurement (enzymatic activity/volume) 9 U/L 5-34 Serum or plasma alanine aminotransferase measurement (enzymatic activity/volume) 7 U/L 0-55 Serum or plasma protein measurement (mass/volume) 6.3 g/dL 6.4-8.2 Serum or plasma albumin measurement (mass/volume) 3.5 g/dL 3.2-4.5 PT panel in platelet poor plasma by coag ulation assay - 12/10/16 04:16 Prothrombin time (PT) in platelet poor plasma by coagu lation assay 48.8 s 12.2-14.7 INR in platelet poor plasma or blood by coagulation as say 5.3 0.8-1.4 Automated blood complete blood count (he mogram) panel - 12/10/16 04:16 Blood leukocytes automated count (number/volume) 16.1 10*3/uL 4.3-11.0 Blood erythrocytes automated count (number/volume) 3.83 10*6/uL 4.35-5.85 Venous blood hemoglobin measurement (mass/volume) 10.7 g/dL 11.5-16.0 Blood hematocrit (volume fraction) 35 % 35-52 Automated erythrocyte mean corpuscular volume 90 [ foz_us] 80-99 Automated erythrocyte mean corpuscular h emoglobin (mass per erythrocyte) 28 pg 25-34 Automated erythrocyte mean corpuscular h emoglobin concentration measurement (mass/volume) 31 g/dL 32-36 Automated erythrocyte distribution width ratio 14. 6 % 10.0- 14.5 Automated blood platelet count (count/volume) 339 10*3/uL 130-400 Automated blood platelet mean volume measurement 10.5 [foz_us] 7.4-10.4 Complete urinalysis with reflex to cultu re - 12/10/16 13:00 Urine color determination YELLOW NRG Urine clarity determination CLEAR NR G Urine pH measurement by test strip 6 5-9 Specific gravity of urine by test strip 1.005 1.016-1.022 Urine protein assay by test strip, semi-quantitative NEGATIVE NEGATIVE Urine glucose detection by automated test strip NE GATIVE NEGATIVE Erythrocytes detection in urine sediment by light micr oscopy 1+ NEGATIVE Urine ketones detection by automated test strip NE GATIVE NEGATIVE Urine nitrite detection by test strip NEGATIVE NEGATIVE Urine total bilirubin detection by test strip NEGA TIVE NEGATIVE Urine urobilinogen measurement by automated test strip (mass/volume) NORMAL NORMAL Urine leukocyte esterase detection by dipstick 1+ NEGATIVE Automated urine sediment erythrocyte cou nt by microscopy (number/high power field) NONE NRG Automated urine sediment leukocyte count by microscopy (number/high power field) [HPF] NRG Bacteria detection in urine sediment by light microsco py NEGATIVE NRG Squamous epithelial cells detection in u rine sediment by light microscopy 25-50 NRG Crystals detection in urine sediment by light microsco py NONE NRG Casts detection in urine sediment by light microscopy NONE NRG Mucus detection in urine sediment by light microscopy NEGATIVE NRG Complete urinalysis with reflex to culture NO NRG Automated blood complete blood count ( mogram) panel - 12/11/16 04:22 Blood leukocytes automated count (number/volume) 11.0 10*3/uL 4.3-11.0 Blood erythrocytes automated count (number/volume) 3.52 10*6/uL 4.35-5.85 Venous blood hemoglobin measurement (mass/volume) 9.6 g/dL 11.5-16.0 Blood hematocrit (volume fraction) 31 % 35-52 Automated erythrocyte mean corpuscular volume 89 [ foz_us] 80-99 Automated erythrocyte mean corpuscular h emoglobin (mass per erythrocyte) 27 pg 25-34 Automated erythrocyte mean corpuscular h emoglobin concentration measurement (mass/volume) 31 g/dL 32-36 Automated erythrocyte distribution width ratio 14. 5 % 10.0- 14.5 Automated blood platelet count (count/volume) 274 10*3/uL 130-400 Automated blood platelet mean volume measurement 9.6 [foz_us] 7.4-10.4 PT panel in platelet poor plasma by coag ulation assay - 12/11/16 04:27 Prothrombin time (PT) in platelet poor plasma by coagu lation assay 40.5 s 12.2-14.7 INR in platelet poor plasma or blood by coagulation as say 4.2 0.8-1.4 Comprehensive metabolic panel - 12/11/16 04:27 Serum or plasma sodium measurement (moles/volume) 139 mmol/L 135-145 Serum or plasma potassium measurement (moles/volume) 4.4 mmol/L 3.6-5.0 Serum or plasma chloride measurement (moles/volume) 109 mmol/L 98-107 Carbon dioxide 24 mmol/L 21-32 Serum or plasma anion gap determination (moles/volume) 6 mmol/L 5-14 Serum or plasma urea nitrogen measurement (mass/volume ) 3 mg/dL 7-18 Serum or plasma creatinine measurement (mass/volume) 0.73 mg/dL 0.60-1.30 Serum or plasma urea nitrogen/creatinine mass ratio 4 NRG Serum or plasma creatinine measurement w ith calculation of estimated glomerular filtration rate > NRG Serum or plasma glucose measurement (mass/volume) 119 mg/dL 70-105 Serum or plasma calcium measurement (mass/volume) 8.2 mg/dL 8.5-10.1 Serum or plasma total bilirubin measurement (mass/volu me) 0.4 mg/dL 0.1-1.0 Serum or plasma alkaline phosphatase keith surement (enzymatic activity/volume) 89 U/L 40-136 Serum or plasma aspartate aminotransfera se measurement (enzymatic activity/volume) 13 U/L 5-34 Serum or plasma alanine aminotransferase measurement (enzymatic activity/volume) 8 U/L 0-55 Serum or plasma protein measurement (mass/volume) 5.8 g/dL 6.4-8.2 Serum or plasma albumin measurement (mass/volume) 3.3 g/dL 3.2-4.5 Magnesium - 12/11/16 04:27 Magnesium 1.7 mg/dL 1.8-2.4 Automated blood complete blood count (he mogram) panel - 12/12/16 04:23 Blood leukocytes automated count (number/volume) 10.9 10*3/uL 4.3-11.0 Blood erythrocytes automated count (number/volume) 3.52 10*6/uL 4.35-5.85 Venous blood hemoglobin measurement (mass/volume) 9.7 g/dL 11.5-16.0 Blood hematocrit (volume fraction) 31 % 35-52 Automated erythrocyte mean corpuscular volume 88 [ foz_us] 80-99 Automated erythrocyte mean corpuscular h emoglobin (mass per erythrocyte) 28 pg 25-34 Automated erythrocyte mean corpuscular h emoglobin concentration measurement (mass/volume) 31 g/dL 32-36 Automated erythrocyte distribution width ratio 14. 4 % 10.0- 14.5 Automated blood platelet count (count/volume) 299 10*3/uL 130-400 Automated blood platelet mean volume measurement 9.9 [foz_us] 7.4-10.4 PT panel in platelet poor plasma by coag ulation assay - 12/12/16 04:23 Prothrombin time (PT) in platelet poor plasma by coagu lation assay 27.0 s 12.2-14.7 INR in platelet poor plasma or blood by coagulation as say 2.5 0.8-1.4 Whole blood basic metabolic panel - 12/23 04:23 Serum or plasma sodium measurement (moles/volume) 141 mmol/L 135-145 Serum or plasma potassium measurement (moles/volume) 4.7 mmol/L 3.6-5.0 Serum or plasma chloride measurement (moles/volume) 109 mmol/L 98-107 Carbon dioxide 25 mmol/L 21-32 Serum or plasma anion gap determination (moles/volume) 7 mmol/L 5-14 Serum or plasma urea nitrogen measurement (mass/volume ) 2 mg/dL 7-18 Serum or plasma creatinine measurement (mass/volume) 0.68 mg/dL 0.60-1.30 Serum or plasma urea nitrogen/creatinine mass ratio 3 NRG Serum or plasma creatinine measurement w ith calculation of estimated glomerular filtration rate > NRG Serum or plasma glucose measurement (mass/volume) 114 mg/dL 70-105 Serum or plasma calcium measurement (mass/volume) 8.1 mg/dL 8.5-10.1 PT panel in platelet poor plasma by coag ulation assay - 12/13/16 04:39 Prothrombin time (PT) in platelet poor plasma by coagu lation assay 17.6 s 12.2-14.7 INR in platelet poor plasma or blood by coagulation as say 1.5 0.8-1.4 PT panel in platelet poor plasma by coag ulation assay - 12/14/16 04:15 Prothrombin time (PT) in platelet poor plasma by coagu lation assay 14.8 s 12.2-14.7 INR in platelet poor plasma or blood by coagulation as say 1.2 0.8-1.4 Automated blood complete blood count (he mogram) panel - 02/21/17 09:45 Blood leukocytes automated count (number/volume) 10.3 10*3/uL 4.3-11.0 Blood erythrocytes automated count (number/volume) 4.55 10*6/uL 4.35-5.85 Venous blood hemoglobin measurement (mass/volume) 12.6 g/dL 11.5-16.0 Blood hematocrit (volume fraction) 39 % 35-52 Automated erythrocyte mean corpuscular volume 86 [ foz_us] 80-99 Automated erythrocyte mean corpuscular h emoglobin (mass per erythrocyte) 28 pg 25-34 Automated erythrocyte mean corpuscular h emoglobin concentration measurement (mass/volume) 32 g/dL 32-36 Automated erythrocyte distribution width ratio 14. 9 % 10.0- 14.5 Automated blood platelet count (count/volume) 329 10*3/uL 130-400 Automated blood platelet mean volume measurement 9.5 [foz_us] 7.4-10.4 PT panel in platelet poor plasma by coag ulation assay - 02/21/17 09:45 Prothrombin time (PT) in platelet poor plasma by coagu lation assay 29.0 s 12.2-14.7 INR in platelet poor plasma or blood by coagulation as say 2.8 0.8-1.4 Activated partial thromboplastin time (a PTT) in platelet poor plasma bycoagulation assay - 02/21/17 09:45 Activated partial thromboplastin time (a PTT) in platelet poor plasma bycoagulation assay 45 s 24-35 Comprehensive metabolic panel - 02/21/17 09:45 Serum or plasma sodium measurement (moles/volume) 141 mmol/L 135-145 Serum or plasma potassium measurement (moles/volume) 3.3 mmol/L 3.6-5.0 Serum or plasma chloride measurement (moles/volume) 103 mmol/L 98-107 Carbon dioxide 27 mmol/L 21-32 Serum or plasma anion gap determination (moles/volume) 11 mmol/L 5-14 Serum or plasma urea nitrogen measurement (mass/volume ) 9 mg/dL 7-18 Serum or plasma creatinine measurement (mass/volume) 0.75 mg/dL 0.60-1.30 Serum or plasma urea nitrogen/creatinine mass ratio 12 NRG Serum or plasma creatinine measurement w ith calculation of estimated glomerular filtration rate > NRG Serum or plasma glucose measurement (mass/volume) 99 mg/dL 70-105 Serum or plasma calcium measurement (mass/volume) 9.5 mg/dL 8.5-10.1 Serum or plasma total bilirubin measurement (mass/volu me) 0.6 mg/dL 0.1-1.0 Serum or plasma alkaline phosphatase keith surement (enzymatic activity/volume) 78 U/L 40-136 Serum or plasma aspartate aminotransfera se measurement (enzymatic activity/volume) 20 U/L 5-34 Serum or plasma alanine aminotransferase measurement (enzymatic activity/volume) 15 U/L 0-55 Serum or plasma protein measurement (mass/volume) 7.9 g/dL 6.4-8.2 Serum or plasma albumin measurement (mass/volume) 4.6 g/dL 3.2-4.5 Methicillin resistant Staphylococcus aur eus (MRSA) screening culture - 02/21/17 09:45 Methicillin resistant Staphylococcus aureus (MRSA) scr eening culture NEG NRG Complete urinalysis with reflex to cultu re - 07/07/17 11:30 Urine color determination RED NRG Urine clarity determination BLOODY NR G Urine pH measurement by test strip 7 5-9 Specific gravity of urine by test strip 1.010 1.016-1.022 Urine protein assay by test strip, semi-quantitative 3+ NEGATIVE Urine glucose detection by automated test strip NE GATIVE NEGATIVE Erythrocytes detection in urine sediment by light micr oscopy 5+ NEGATIVE Urine ketones detection by automated test strip NE GATIVE NEGATIVE Urine nitrite detection by test strip NEGATIVE NEGATIVE Urine total bilirubin detection by test strip NEGA TIVE NEGATIVE Urine urobilinogen measurement by automated test strip (mass/volume) NORMAL NORMAL Urine leukocyte esterase detection by dipstick 3+ NEGATIVE Automated urine sediment erythrocyte cou nt by microscopy (number/high power field) TNTC NRG Automated urine sediment leukocyte count by microscopy (number/high power field) [HPF] NRG Bacteria detection in urine sediment by light microsco py NEGATIVE NRG Squamous epithelial cells detection in u rine sediment by light microscopy NONE NRG Crystals detection in urine sediment by light microsco py NONE NRG Casts detection in urine sediment by light microscopy NONE NRG Mucus detection in urine sediment by light microscopy NEGATIVE NRG Complete urinalysis with reflex to culture YES NRG Bacterial urine culture - 07/07/17 11:30 Bacterial urine culture [id number] NRG COLONY COUNT <10,000 NRG FTX;REPORTABLE SENSITIVITY REPORTED AT 1105, 1-1-1 8 NRG URINE CULTURE RESULTS PLUS NRG Bacterial susceptibility panel - 7 11:30 Gentamicin susceptibility test by minimum inhibitory c oncentration <= NRG Trimethoprim/sulfamethoxazole susceptibi lity test by minimum inhibitoryconcentration S NRG Ampicillin susceptibility test by minimum inhibitory c oncentration R NRG Tobramycin susceptibility test by minimum inhibitory c oncentration <= NRG Cefazolin susceptibility test by minimum inhibitory co ncentration <= NRG Ceftriaxone susceptibility test by minimum inhibitory concentration <= NRG Ampicillin/sulbactam susceptibility test by minimum inhibitory concentration <= NRG Piperacillin/tazobactam susceptibility t est by minimum inhibitory concentration S NRG Ciprofloxacin susceptibility test by minimum inhibitor y concentration <= NRG Meropenem susceptibility test by minimum inhibitory co ncentration <= NRG Nitrofurantoin susceptibility test by mi nimum inhibitory concentration 64 NRG Aztreonam susceptibility test by minimum inhibitory co ncentration <= NRG Extended spectrum beta lactamase (ESBL) producing bacteria susceptibility test by minimum inhibitory concentration - NRG Automated blood complete blood count (he mogram) panel - 07/07/17 12:06 Blood leukocytes automated count (number/volume) 10.8 10*3/uL 4.3-11.0 Blood erythrocytes automated count (number/volume) 4.19 10*6/uL 4.35-5.85 Venous blood hemoglobin measurement (mass/volume) 11.8 g/dL 11.5-16.0 Blood hematocrit (volume fraction) 37 % 35-52 Automated erythrocyte mean corpuscular volume 87 [ foz_us] 80-99 Automated erythrocyte mean corpuscular h emoglobin (mass per erythrocyte) 28 pg 25-34 Automated erythrocyte mean corpuscular h emoglobin concentration measurement (mass/volume) 32 g/dL 32-36 Automated erythrocyte distribution width ratio 14. 7 % 10.0- 14.5 Automated blood platelet count (count/volume) 278 10*3/uL 130-400 Automated blood platelet mean volume measurement 9.8 [foz_us] 7.4-10.4 PT panel in platelet poor plasma by coag ulation assay - 07/07/17 12:06 Prothrombin time (PT) in platelet poor plasma by coagu lation assay 24.5 s 12.2-14.7 INR in platelet poor plasma or blood by coagulation as say 2.2 0.8-1.4 Comprehensive metabolic panel - 07/07/17 12:06 Serum or plasma sodium measurement (moles/volume) 145 mmol/L 135-145 Serum or plasma potassium measurement (moles/volume) 3.6 mmol/L 3.6-5.0 Serum or plasma chloride measurement (moles/volume) 107 mmol/L 98-107 Carbon dioxide 27 mmol/L 21-32 Serum or plasma anion gap determination (moles/volume) 11 mmol/L 5-14 Serum or plasma urea nitrogen measurement (mass/volume ) 11 mg/dL 7-18 Serum or plasma creatinine measurement (mass/volume) 0.76 mg/dL 0.60-1.30 Serum or plasma urea nitrogen/creatinine mass ratio 14 NRG Serum or plasma creatinine measurement w ith calculation of estimated glomerular filtration rate > NRG Serum or plasma glucose measurement (mass/volume) 100 mg/dL 70-105 Serum or plasma calcium measurement (mass/volume) 9.3 mg/dL 8.5-10.1 Serum or plasma total bilirubin measurement (mass/volu me) 0.9 mg/dL 0.1-1.0 Serum or plasma alkaline phosphatase keith surement (enzymatic activity/volume) 76 U/L 40-136 Serum or plasma aspartate aminotransfera se measurement (enzymatic activity/volume) 16 U/L 5-34 Serum or plasma alanine aminotransferase measurement (enzymatic activity/volume) 10 U/L 0-55 Serum or plasma protein measurement (mass/volume) 7.2 g/dL 6.4-8.2 Serum or plasma albumin measurement (mass/volume) 4.3 g/dL 3.2-4.5 Complete urinalysis with reflex to cultu re - 03/07/18 07:15 Urine color determination YELLOW NRG Urine clarity determination CLEAR NR G Urine pH measurement by test strip 6 5-9 Specific gravity of urine by test strip 1.020 1.016-1.022 Urine protein assay by test strip, semi-quantitative 3+ NEGATIVE Urine glucose detection by automated test strip NE GATIVE NEGATIVE Erythrocytes detection in urine sediment by light micr oscopy 1+ NEGATIVE Urine ketones detection by automated test strip NE GATIVE NEGATIVE Urine nitrite detection by test strip NEGATIVE NEGATIVE Urine total bilirubin detection by test strip NEGA TIVE NEGATIVE Urine urobilinogen measurement by automated test strip (mass/volume) NORMAL NORMAL Urine leukocyte esterase detection by dipstick 1+ NEGATIVE Automated urine sediment erythrocyte cou nt by microscopy (number/high power field) [HPF] NRG Automated urine sediment leukocyte count by microscopy (number/high power field) [HPF] NRG Bacteria detection in urine sediment by light microsco py TRACE NRG Squamous epithelial cells detection in u rine sediment by light microscopy 0-2 NRG Crystals detection in urine sediment by light microsco py NONE NRG Casts detection in urine sediment by light microscopy PRESENT NRG Mucus detection in urine sediment by light microscopy SMALL NRG Complete urinalysis with reflex to culture YES NRG Hyaline casts detection in urine sediment by light kerline roscopy 5-10 NRG Bacterial urine culture - 09/12/17 07:15 URINE CULTURE RESULTS <10,000/ML NRG Automated blood complete blood count ( mogram) panel - 09/12/17 07:22 Blood leukocytes automated count (number/volume) 10.6 10*3/uL 4.3-11.0 Blood erythrocytes automated count (number/volume) 4.59 10*6/uL 4.35-5.85 Venous blood hemoglobin measurement (mass/volume) 13.2 g/dL 11.5-16.0 Blood hematocrit (volume fraction) 40 % 35-52 Automated erythrocyte mean corpuscular volume 86 [ foz_us] 80-99 Automated erythrocyte mean corpuscular h emoglobin (mass per erythrocyte) 29 pg 25-34 Automated erythrocyte mean corpuscular h emoglobin concentration measurement (mass/volume) 33 g/dL 32-36 Automated erythrocyte distribution width ratio 14. 9 % 10.0- 14.5 Automated blood platelet count (count/volume) 295 10*3/uL 130-400 Automated blood platelet mean volume measurement 10.2 [foz_us] 7.4-10.4 PT panel in platelet poor plasma by coag ulation assay - 09/12/17 07:22 Prothrombin time (PT) in platelet poor plasma by coagu lation assay 21.4 s 12.2-14.7 INR in platelet poor plasma or blood by coagulation as say 1.9 0.8-1.4 Activated partial thromboplastin time (a PTT) in platelet poor plasma bycoagulation assay - 09/12/17 07:22 Activated partial thromboplastin time (a PTT) in platelet poor plasma bycoagulation assay 38 s 24-35 Comprehensive metabolic panel - 09/12/17 07:22 Serum or plasma sodium measurement (moles/volume) 140 mmol/L 135-145 Serum or plasma potassium measurement (moles/volume) 3.2 mmol/L 3.6-5.0 Serum or plasma chloride measurement (moles/volume) 107 mmol/L 98-107 Carbon dioxide 24 mmol/L 21-32 Serum or plasma anion gap determination (moles/volume) 9 mmol/L 5-14 Serum or plasma urea nitrogen measurement (mass/volume ) 18 mg/dL 7-18 Serum or plasma creatinine measurement (mass/volume) 0.81 mg/dL 0.60-1.30 Serum or plasma urea nitrogen/creatinine mass ratio 22 NRG Serum or plasma creatinine measurement w ith calculation of estimated glomerular filtration rate > NRG Serum or plasma glucose measurement (mass/volume) 97 mg/dL 70-105 Serum or plasma calcium measurement (mass/volume) 9.2 mg/dL 8.5-10.1 Serum or plasma total bilirubin measurement (mass/volu me) 0.6 mg/dL 0.1-1.0 Serum or plasma alkaline phosphatase keith surement (enzymatic activity/volume) 80 U/L 40-136 Serum or plasma aspartate aminotransfera se measurement (enzymatic activity/volume) 17 U/L 5-34 Serum or plasma alanine aminotransferase measurement (enzymatic activity/volume) 13 U/L 0-55 Serum or plasma protein measurement (mass/volume) 7.4 g/dL 6.4-8.2 Serum or plasma albumin measurement (mass/volume) 4.4 g/dL 3.2-4.5 Lipid 1996 panel - 09/12/17 07:22 Serum or plasma triglyceride measurement (mass/volume) 129 mg/dL <150 Serum or plasma cholesterol measurement (mass/volume) 93 mg/dL < 200 Serum or plasma cholesterol in HDL measurement (mass/v olume) 23 mg/dL 40-60 Cholesterol in LDL [mass/volume] in serum or plasma by direct assay 50 mg/dL 1-129 Serum or plasma cholesterol in VLDL measurement (mass/ volume) 26 mg/dL 5-40 Methicillin resistant Staphylococcus aur eus (MRSA) screening culture - 09/12/17 07:22 Methicillin resistant Staphylococcus aureus (MRSA) scr eening culture NEG NRG [id number] - 11/07/17 10:13 Serum or plasma urea nitrogen measurement (mass/volume ) 15 mg/dL 7-18 Serum or plasma creatinine measurement (mass/volume) 0.79 mg/dL 0.60-1.30 Serum or plasma urea nitrogen/creatinine mass ratio 19 NRG Serum or plasma creatinine measurement w ith calculation of estimated glomerular filtration rate > NRG Arterial blood gas measurement - 8 11:05 Blood pCO2 38 mm[Hg] 35-45 Blood pO2 81 mm[Hg] 79-93 Arterial blood bicarbonate measurement (moles/volume) 26 mmol/L 23-27 Arterial blood base excess by calculation 1.8 mmol /L -2.5-2.5 Arterial blood oxygen saturation measurement 97 % 94-100 * Inhaled oxygen flow rate ROOM AIR NRG Arterial blood pH measurement with patient temperature correction 7.45 7.37-7.43 Arterial blood carbon dioxide, total measurement (mole s/volume) 26.6 mmol/L 21.0-31.0 Body site RT BRACH NRG Assessment of wrist artery patency prior to arterial p uncture YES-POS NRG Setting of ventilation mode NO NR G Measurement of body temperature 98.6 NRG Complete blood count (CBC) with automate d white blood cell (WBC) differential - 01/07/18 05:35 Blood leukocytes automated count (number/volume) 10.0 10*3/uL 4.3-11.0 Blood erythrocytes automated count (number/volume) 4.66 10*6/uL 4.35-5.85 Venous blood hemoglobin measurement (mass/volume) 12.9 g/dL 11.5-16.0 Blood hematocrit (volume fraction) 40 % 35-52 Automated erythrocyte mean corpuscular volume 86 [ foz_us] 80-99 Automated erythrocyte mean corpuscular h emoglobin (mass per erythrocyte) 28 pg 25-34 Automated erythrocyte mean corpuscular h emoglobin concentration measurement (mass/volume) 32 g/dL 32-36 Automated erythrocyte distribution width ratio 17. 0 % 10.0- 14.5 Automated blood platelet count (count/volume) 367 10*3/uL 130-400 Automated blood platelet mean volume measurement 10.1 [[facility]] 7.4-10.4 Automated blood neutrophils/100 leukocytes 57 % 42-75 Automated blood lymphocytes/100 leukocytes 35 % 12-44 Blood monocytes/100 leukocytes 6 % 0-12 Automated blood eosinophils/100 leukocytes 1 % 0-10 Automated blood basophils/100 leukocytes 0 % 0-10 Blood neutrophils automated count (number/volume) 5.7 10*3 1.8-7.8 Blood lymphocytes automated count (number/volume) 3.5 10*3 1.0-4.0 Blood monocytes automated count (number/volume) 0. 6 10*3 0.0-1.0 Automated eosinophil count 0.1 10*3/uL 0 .0-0.3 Automated blood basophil count (count/volume) 0.0 10*3/uL 0.0-0.1 Blood lactic acid measurement (moles/vol ume) - 01/07/18 05:35 Blood lactic acid measurement (moles/volume) 4.37 mmol/L 0.50-2.00 PT panel in platelet poor plasma by coag ulation assay - 01/07/18 05:35 Prothrombin time (PT) in platelet poor plasma by coagu lation assay 24.0 s 12.2-14.7 INR in platelet poor plasma or blood by coagulation as say 2.1 0.8-1.4 Activated partial thromboplastin time (a PTT) in platelet poor plasma bycoagulation assay - 01/07/18 05:35 Activated partial thromboplastin time (a PTT) in platelet poor plasma bycoagulation assay 30 s 24-35 Comprehensive metabolic panel - 01/07/18 05:35 Serum or plasma sodium measurement (moles/volume) 141 mmol/L 135-145 Serum or plasma potassium measurement (moles/volume) 3.7 mmol/L 3.6-5.0 Serum or plasma chloride measurement (moles/volume) 102 mmol/L 98-107 Carbon dioxide 20 mmol/L 21-32 Serum or plasma anion gap determination (moles/volume) 19 mmol/L 5-14 Serum or plasma urea nitrogen measurement (mass/volume ) 16 mg/dL 7-18 Serum or plasma creatinine measurement (mass/volume) 1.08 mg/dL 0.60-1.30 Serum or plasma urea nitrogen/creatinine mass ratio 15 NRG Serum or plasma creatinine measurement w ith calculation of estimated glomerular filtration rate 51 NRG Serum or plasma glucose measurement (mass/volume) 180 mg/dL 70-105 Serum or plasma calcium measurement (mass/volume) 9.4 mg/dL 8.5-10.1 Serum or plasma total bilirubin measurement (mass/volu me) 1.1 mg/dL 0.1-1.0 Serum or plasma alkaline phosphatase keith surement (enzymatic activity/volume) 102 U/L 40-136 Serum or plasma aspartate aminotransfera se measurement (enzymatic activity/volume) 23 U/L 5-34 Serum or plasma alanine aminotransferase measurement (enzymatic activity/volume) 13 U/L 0-55 Serum or plasma protein measurement (mass/volume) 7.2 g/dL 6.4-8.2 Serum or plasma albumin measurement (mass/volume) 4.4 g/dL 3.2-4.5 Magnesium - 01/07/18 05:35 Magnesium 1.8 mg/dL 1.8-2.4 Serum or plasma troponin i.cardiac measu rement (mass/volume) - 01/07/18 05:35 Serum or plasma troponin i.cardiac measurement (mass/v olume) < ng/mL <0.30 Lipase - 01/07/18 05:35 Lipase 21 U/L 8-78 Serum or plasma lithium measurement (mol es/volume) - 01/07/18 05:35 BNP level 418.0 pg/mL <100.0 Serum or plasma triglyceride measurement (mass/volume) - 01/07/18 05:35 Serum or plasma triglyceride measurement (mass/volume) 136 mg/dL <150 Bacterial blood culture - 01/07/18 06:07 Bacterial blood culture NG NRG Complete urinalysis with reflex to cultu re - 01/07/18 06:35 Urine color determination YELLOW NRG Urine clarity determination CLEAR NR G Urine pH measurement by test strip 5 5-9 Specific gravity of urine by test strip 1.015 1.016-1.022 Urine protein assay by test strip, semi-quantitative 3+ NEGATIVE Urine glucose detection by automated test strip NE GATIVE NEGATIVE Erythrocytes detection in urine sediment by light micr oscopy 5+ NEGATIVE Urine ketones detection by automated test strip NE GATIVE NEGATIVE Urine nitrite detection by test strip NEGATIVE NEGATIVE Urine total bilirubin detection by test strip NEGA TIVE NEGATIVE Urine urobilinogen measurement by automated test strip (mass/volume) NORMAL NORMAL Urine leukocyte esterase detection by dipstick 2+ NEGATIVE Automated urine sediment erythrocyte cou nt by microscopy (number/high power field) [HPF] NRG Automated urine sediment leukocyte count by microscopy (number/high power field) [HPF] NRG Bacteria detection in urine sediment by light microsco py TRACE NRG Squamous epithelial cells detection in u rine sediment by light microscopy 5-10 NRG Crystals detection in urine sediment by light microsco py NONE NRG Casts detection in urine sediment by light microscopy PRESENT NRG Mucus detection in urine sediment by light microscopy NEGATIVE NRG Complete urinalysis with reflex to culture YES NRG Hyaline casts detection in urine sediment by light kerline roscopy 2-5 NRG Bacterial urine culture - 01/07/18 06:35 Bacterial urine culture SEE COMMEN NRG COLONY COUNT . NRG FTX;REPORTABLE REPORTED BY [facility] 01/08/18 11:05 NR FREE TEXT ENTRY 2 SUSCEPTIBILITY REPORTED AT 0901-09-18 [facility] FREE TEXT ENTRY 3 [facility] Sensitivity Panel - 01/07/18 06:35 Gentamicin susceptibility test by minimum inhibitory c oncentration <= NRG Trimethoprim/sulfamethoxazole susceptibi lity test by minimum inhibitoryconcentration <= NRG Levofloxacin susceptibility test by minimum inhibitory concentration <= NRG Ampicillin susceptibility test by minimum inhibitory c oncentration <= NRG Cefazolin susceptibility test by minimum inhibitory co ncentration <= NRG Ceftriaxone susceptibility test by minimum inhibitory concentration <= NRG Ciprofloxacin susceptibility test by minimum inhibitor y concentration <= NRG Meropenem susceptibility test by minimum inhibitory co ncentration <= NRG Nitrofurantoin susceptibility test by mi nimum inhibitory concentration <= NRG Amoxicillin and clavulanate potassium susc KERLINE <= NRG Bacterial blood culture - 01/07/18 06:43 Bacterial blood culture NG NRG Serum or plasma lactate measurement (mol es/volume) - 01/07/18 07:05 Serum or plasma lactate measurement (moles/volume) 1.84 mmol/L 0.50-2.00 Methicillin resistant Staphylococcus aur eus (MRSA) screening culture - 01/07/18 10:05 Methicillin resistant Staphylococcus aureus (MRSA) scr eening culture NEG NRG FRESH FROZEN PLASMA - 01/07/18 10:22 FRESH FROZEN PLASMA ISSUED 01/07/18 1126 NRG Blood type T Indirect antibody screen wy [facility] - 01/07/18 10:22 ABO+Rh group OP NRG Transfusion band number [id number] NRG Blood group antibody screen NEGATIVE NR G FRESH FROZEN PLASMA - 01/07/18 10:22 FRESH FROZEN PLASMA TRANSFUSE D 01/07/18 2109 NRG RED CELLS LEUKO REDUCED AS1 - 01/07/18 1 0:22 RED CELLS LEUKO REDUCED AS1 N OT AVAILABLE NRG Blood type T Indirect antibody screen [facility] - 01/07/18 10:22 ABO+Rh group OP NRG Transfusion band number [id number] NRG Blood group antibody screen NEGATIVE NR G Whole blood hemoglobin and hematocrit [facility] - 01/07/18 14:54 Venous blood hemoglobin measurement (mass/volume) 8.8 g/dL 11.5-16.0 Blood hematocrit (volume fraction) 28 % 35-52 PT panel in platelet poor plasma by coag ulation assay - 01/07/18 14:57 Prothrombin time (PT) in platelet poor plasma by coagu lation assay 27.8 s 12.2-14.7 INR in platelet poor plasma or blood by coagulation as say 2.6 0.8-1.4 Sputum Gram stain - 01/07/18 16:00 GRAM STAIN SPUTUM NO NRG Sputum Gram stain observed on direct gram stain. NRG Bacterial sputum culture - 01/07/18 16:0 0 Bacterial sputum culture NG NRG Arterial blood gas measurement - 8 17:00 Blood pCO2 30 mm[Hg] 35-45 Blood pO2 138 mm[Hg] 79-93 Arterial blood bicarbonate measurement (moles/volume) 19 mmol/L 23-27 Arterial blood base excess by calculation -5.1 mmo l/L -2.5-2.5 Arterial blood oxygen saturation measurement 100 % 94-100 * Inhaled oxygen flow rate 40% NRG Arterial blood pH measurement with patient temperature correction 7.41 7.37-7.43 Arterial blood carbon dioxide, total measurement (mole s/volume) 20.0 mmol/L 21.0-31.0 Body site ARTLINE NRG Assessment of wrist artery patency prior to arterial p uncture NA NRG Setting of ventilation mode YES NR G Measurement of body temperature 96.4 NRG Complete blood count (CBC) with automate d white blood cell (WBC) differential - 01/08/18 03:15 Blood leukocytes automated count (number/volume) 7.0 10*3/uL 4.3-11.0 Blood erythrocytes automated count (number/volume) 3.36 10*6/uL 4.35-5.85 Venous blood hemoglobin measurement (mass/volume) 9.3 g/dL 11.5-16.0 Blood hematocrit (volume fraction) 29 % 35-52 Automated erythrocyte mean corpuscular volume 87 [ foz_us] 80-99 Automated erythrocyte mean corpuscular h emoglobin (mass per erythrocyte) 28 pg 25-34 Automated erythrocyte mean corpuscular h emoglobin concentration measurement (mass/volume) 32 g/dL 32-36 Automated erythrocyte distribution width ratio 16. 7 % 10.0- 14.5 Automated blood platelet count (count/volume) 231 10*3/uL 130-400 Automated blood platelet mean volume measurement 10.3 [foz_us] 7.4-10.4 Automated blood neutrophils/100 leukocytes 87 % 42-75 Automated blood lymphocytes/100 leukocytes 10 % 12-44 Blood monocytes/100 leukocytes 3 % 0-12 Automated blood eosinophils/100 leukocytes 0 % 0-10 Automated blood basophils/100 leukocytes 0 % 0-10 Blood neutrophils automated count (number/volume) 6.0 10*3 1.8-7.8 Blood lymphocytes automated count (number/volume) 0.7 10*3 1.0-4.0 Blood monocytes automated count (number/volume) 0. 2 10*3 0.0-1.0 Automated eosinophil count 0.0 10*3/uL 0 .0-0.3 Automated blood basophil count (count/volume) 0.0 10*3/uL 0.0-0.1 Blood lactic acid measurement (moles/vol ume) - 01/08/18 03:15 Blood lactic acid measurement (moles/volume) 1.15 mmol/L 0.50-2.00 Whole blood basic metabolic panel - 09/23 03:15 Serum or plasma sodium measurement (moles/volume) 143 mmol/L 135-145 Serum or plasma potassium measurement (moles/volume) 3.8 mmol/L 3.6-5.0 Serum or plasma chloride measurement (moles/volume) 111 mmol/L 98-107 Carbon dioxide 19 mmol/L 21-32 Serum or plasma anion gap determination (moles/volume) 13 mmol/L 5-14 Serum or plasma urea nitrogen measurement (mass/volume ) 16 mg/dL 7-18 Serum or plasma creatinine measurement (mass/volume) 0.80 mg/dL 0.60-1.30 Serum or plasma urea nitrogen/creatinine mass ratio 20 NRG Serum or plasma creatinine measurement w ith calculation of estimated glomerular filtration rate > NRG Serum or plasma glucose measurement (mass/volume) 134 mg/dL 70-105 Serum or plasma calcium measurement (mass/volume) 7.3 mg/dL 8.5-10.1 Serum or plasma phosphate measurement (m ass/volume) - 01/08/18 03:15 Serum or plasma phosphate measurement (mass/volume) 4.0 mg/dL 2.3-4.7 Magnesium - 01/08/18 03:15 Magnesium 1.7 mg/dL 1.8-2.4 PT panel in platelet poor plasma by coag ulation assay - 01/08/18 03:15 Prothrombin time (PT) in platelet poor plasma by coagu lation assay 20.3 s 12.2-14.7 INR in platelet poor plasma or blood by coagulation as say 1.7 0.8-1.4 Activated partial thromboplastin time (a PTT) in platelet poor plasma bycoagulation assay - 01/08/18 03:15 Activated partial thromboplastin time (a PTT) in platelet poor plasma bycoagulation assay 29 s 24-35 Serum or plasma lithium measurement (mol es/volume) - 01/08/18 03:15 BNP level 443.7 pg/mL <100.0 Serum or plasma total bilirubin measurem ent (mass/volume) - 01/08/18 03:15 Serum or plasma total bilirubin measurement (mass/volu me) 1.1 mg/dL 0.1-1.0 Arterial blood gas measurement - 8 03:20 Blood pCO2 32 mm[Hg] 35-45 Blood pO2 115 mm[Hg] 79-93 Arterial blood bicarbonate measurement (moles/volume) 23 mmol/L 23-27 Arterial blood base excess by calculation -0.5 mmo l/L -2.5-2.5 Arterial blood oxygen saturation measurement 99 % 94-100 * Inhaled oxygen flow rate 30% NRG Arterial blood pH measurement with patient temperature correction 7.46 7.37-7.43 Arterial blood carbon dioxide, total measurement (mole s/volume) 24.0 mmol/L 21.0-31.0 Body site LEFT ART LINE NRG Assessment of wrist artery patency prior to arterial p uncture ART LINE NRG Setting of ventilation mode YES NR G Measurement of body temperature 96.9 NRG Complete urinalysis with reflex to cultu re - 01/08/18 03:30 Urine color determination YELLOW NRG Urine clarity determination VERY CLOUDY NRG Urine pH measurement by test strip 5 5-9 Specific gravity of urine by test strip 1.020 1.016-1.022 Urine protein assay by test strip, semi-quantitative 2+ NEGATIVE Urine glucose detection by automated test strip NE GATIVE NEGATIVE Erythrocytes detection in urine sediment by light micr oscopy 5+ NEGATIVE Urine ketones detection by automated test strip NE GATIVE NEGATIVE Urine nitrite detection by test strip NEGATIVE NEGATIVE Urine total bilirubin detection by test strip NEGA TIVE NEGATIVE Urine urobilinogen measurement by automated test strip (mass/volume) NORMAL NORMAL Urine leukocyte esterase detection by dipstick 2+ NEGATIVE Automated urine sediment erythrocyte cou nt by microscopy (number/high power field) [HPF] NRG Automated urine sediment leukocyte count by microscopy (number/high power field) [HPF] NRG Bacteria detection in urine sediment by light microsco py TRACE NRG Squamous epithelial cells detection in u rine sediment by light microscopy 0-2 NRG Crystals detection in urine sediment by light microsco py PRESENT NRG Casts detection in urine sediment by light microscopy NONE NRG Mucus detection in urine sediment by light microscopy NEGATIVE NRG Complete urinalysis with reflex to culture YES NRG Uric acid crystals detection in urine sediment by ligh t microscopy MODERATE NRG 24 hour urine creatinine measurement (ma ss/volume) - 01/08/18 03:30 24 hour urine creatinine measurement (mass/volume) 131 mg/dL 30-125 Urine sodium measurement (moles/volume) - 01/08/18 03:30 Urine sodium measurement (moles/volume) < mmol/L 50-200 Bacterial urine culture - 01/08/18 03:30 Bacterial urine culture NG NRG UREA NITROGEN URINE RANDOM - 01/08/18 03 :30 Urea nitrogen [mass/volume] in urine 891 % NRG Complete blood count (CBC) with automate d white blood cell (WBC) differential - 01/08/18 15:10 Blood leukocytes automated count (number/volume) 12.4 10*3/uL 4.3-11.0 Blood erythrocytes automated count (number/volume) 3.69 10*6/uL 4.35-5.85 Venous blood hemoglobin measurement (mass/volume) 10.2 g/dL 11.5-16.0 Blood hematocrit (volume fraction) 32 % 35-52 Automated erythrocyte mean corpuscular volume 87 [ foz_us] 80-99 Automated erythrocyte mean corpuscular h emoglobin (mass per erythrocyte) 28 pg 25-34 Automated erythrocyte mean corpuscular h emoglobin concentration measurement (mass/volume) 32 g/dL 32-36 Automated erythrocyte distribution width ratio 16. 9 % 10.0- 14.5 Automated blood platelet count (count/volume) 319 10*3/uL 130-400 Automated blood platelet mean volume measurement 10.2 [foz_us] 7.4-10.4 Automated blood neutrophils/100 leukocytes 81 % 42-75 Automated blood lymphocytes/100 leukocytes 11 % 12-44 Blood monocytes/100 leukocytes 8 % 0-12 Automated blood eosinophils/100 leukocytes 0 % 0-10 Automated blood basophils/100 leukocytes 0 % 0-10 Blood neutrophils automated count (number/volume) 10.1 10*3 1.8-7.8 Blood lymphocytes automated count (number/volume) 1.3 10*3 1.0-4.0 Blood monocytes automated count (number/volume) 1. 0 10*3 0.0-1.0 Automated eosinophil count 0.0 10*3/uL 0 .0-0.3 Automated blood basophil count (count/volume) 0.0 10*3/uL 0.0-0.1 PT panel in platelet poor plasma by coag ulation assay - 01/08/18 15:10 Prothrombin time (PT) in platelet poor plasma by coagu lation assay 20.8 s 12.2-14.7 INR in platelet poor plasma or blood by coagulation as say 1.8 0.8-1.4 Activated partial thromboplastin time (a PTT) in platelet poor plasma bycoagulation assay - 01/08/18 15:10 Activated partial thromboplastin time (a PTT) in platelet poor plasma bycoagulation assay 28 s 24-35 Comprehensive metabolic panel - 01/08/18 15:10 Serum or plasma sodium measurement (moles/volume) 141 mmol/L 135-145 Serum or plasma potassium measurement (moles/volume) 4.0 mmol/L 3.6-5.0 Serum or plasma chloride measurement (moles/volume) 111 mmol/L 98-107 Carbon dioxide 19 mmol/L 21-32 Serum or plasma anion gap determination (moles/volume) 11 mmol/L 5-14 Serum or plasma urea nitrogen measurement (mass/volume ) 19 mg/dL 7-18 Serum or plasma creatinine measurement (mass/volume) 0.82 mg/dL 0.60-1.30 Serum or plasma urea nitrogen/creatinine mass ratio 23 NRG Serum or plasma creatinine measurement w ith calculation of estimated glomerular filtration rate > NRG Serum or plasma glucose measurement (mass/volume) 122 mg/dL 70-105 Serum or plasma calcium measurement (mass/volume) 7.5 mg/dL 8.5-10.1 Serum or plasma total bilirubin measurement (mass/volu me) 1.2 mg/dL 0.1-1.0 Serum or plasma alkaline phosphatase keith surement (enzymatic activity/volume) 60 U/L 40-136 Serum or plasma aspartate aminotransfera se measurement (enzymatic activity/volume) 49 U/L 5-34 Serum or plasma alanine aminotransferase measurement (enzymatic activity/volume) 25 U/L 0-55 Serum or plasma protein measurement (mass/volume) 5.9 g/dL 6.4-8.2 Serum or plasma albumin measurement (mass/volume) 3.7 g/dL 3.2-4.5 Serum or plasma phosphate measurement (m ass/volume) - 01/08/18 15:10 Serum or plasma phosphate measurement (mass/volume) 3.6 mg/dL 2.3-4.7 Magnesium - 01/08/18 15:10 Magnesium 2.5 mg/dL 1.8-2.4 Serum or plasma troponin i.cardiac measu rement (mass/volume) - 01/08/18 15:10 Serum or plasma troponin i.cardiac measurement (mass/v olume) < ng/mL <0.30 Serum or plasma troponin i.cardiac measu rement (mass/volume) - 01/08/18 18:30 Serum or plasma troponin i.cardiac measurement (mass/v olume) < ng/mL <0.30 Serum or plasma troponin i.cardiac measu rement (mass/volume) - 01/08/18 22:45 Serum or plasma troponin i.cardiac measurement (mass/v olume) < ng/mL <0.30 Complete blood count (CBC) with automate d white blood cell (WBC) differential - 01/09/18 04:10 Blood leukocytes automated count (number/volume) 13.7 10*3/uL 4.3-11.0 Blood erythrocytes automated count (number/volume) 3.79 10*6/uL 4.35-5.85 Venous blood hemoglobin measurement (mass/volume) 10.5 g/dL 11.5-16.0 Blood hematocrit (volume fraction) 33 % 35-52 Automated erythrocyte mean corpuscular volume 87 [ foz_us] 80-99 Automated erythrocyte mean corpuscular h emoglobin (mass per erythrocyte) 28 pg 25-34 Automated erythrocyte mean corpuscular h emoglobin concentration measurement (mass/volume) 32 g/dL 32-36 Automated erythrocyte distribution width ratio 17. 0 % 10.0- 14.5 Automated blood platelet count (count/volume) 310 10*3/uL 130-400 Automated blood platelet mean volume measurement 9.7 [foz_us] 7.4-10.4 Automated blood neutrophils/100 leukocytes 78 % 42-75 Automated blood lymphocytes/100 leukocytes 14 % 12-44 Blood monocytes/100 leukocytes 8 % 0-12 Automated blood eosinophils/100 leukocytes 0 % 0-10 Automated blood basophils/100 leukocytes 0 % 0-10 Blood neutrophils automated count (number/volume) 10.7 10*3 1.8-7.8 Blood lymphocytes automated count (number/volume) 1.9 10*3 1.0-4.0 Blood monocytes automated count (number/volume) 1. 1 10*3 0.0-1.0 Automated eosinophil count 0.0 10*3/uL 0 .0-0.3 Automated blood basophil count (count/volume) 0.0 10*3/uL 0.0-0.1 Comprehensive metabolic panel - 01/09/18 04:10 Serum or plasma sodium measurement (moles/volume) 140 mmol/L 135-145 Serum or plasma potassium measurement (moles/volume) 4.2 mmol/L 3.6-5.0 Serum or plasma chloride measurement (moles/volume) 114 mmol/L 98-107 Carbon dioxide 15 mmol/L 21-32 Serum or plasma anion gap determination (moles/volume) 11 mmol/L 5-14 Serum or plasma urea nitrogen measurement (mass/volume ) 18 mg/dL 7-18 Serum or plasma creatinine measurement (mass/volume) 0.77 mg/dL 0.60-1.30 Serum or plasma urea nitrogen/creatinine mass ratio 23 NRG Serum or plasma creatinine measurement w ith calculation of estimated glomerular filtration rate > NRG Serum or plasma glucose measurement (mass/volume) 127 mg/dL 70-105 Serum or plasma calcium measurement (mass/volume) 7.4 mg/dL 8.5-10.1 Serum or plasma total bilirubin measurement (mass/volu me) 1.2 mg/dL 0.1-1.0 Serum or plasma alkaline phosphatase keith surement (enzymatic activity/volume) 62 U/L 40-136 Serum or plasma aspartate aminotransfera se measurement (enzymatic activity/volume) 35 U/L 5-34 Serum or plasma alanine aminotransferase measurement (enzymatic activity/volume) 25 U/L 0-55 Serum or plasma protein measurement (mass/volume) 5.9 g/dL 6.4-8.2 Serum or plasma albumin measurement (mass/volume) 3.6 g/dL 3.2-4.5 Serum or plasma phosphate measurement (m ass/volume) - 01/09/18 04:10 Serum or plasma phosphate measurement (mass/volume) 2.7 mg/dL 2.3-4.7 Magnesium - 01/09/18 04:10 Magnesium 2.1 mg/dL 1.8-2.4 Blood lactic acid measurement (moles/vol ume) - 01/09/18 06:20 Blood lactic acid measurement (moles/volume) 1.11 mmol/L 0.50-2.00 Complete blood count (CBC) with automate d white blood cell (WBC) differential - 01/10/18 03:25 Blood leukocytes automated count (number/volume) 14.8 10*3/uL 4.3-11.0 Blood erythrocytes automated count (number/volume) 3.80 10*6/uL 4.35-5.85 Venous blood hemoglobin measurement (mass/volume) 10.6 g/dL 11.5-16.0 Blood hematocrit (volume fraction) 34 % 35-52 Automated erythrocyte mean corpuscular volume 88 [ foz_us] 80-99 Automated erythrocyte mean corpuscular h emoglobin (mass per erythrocyte) 28 pg 25-34 Automated erythrocyte mean corpuscular h emoglobin concentration measurement (mass/volume) 32 g/dL 32-36 Automated erythrocyte distribution width ratio 17. 2 % 10.0- 14.5 Automated blood platelet count (count/volume) 301 10*3/uL 130-400 Automated blood platelet mean volume measurement 10.2 [foz_us] 7.4-10.4 Automated blood neutrophils/100 leukocytes 71 % 42-75 Automated blood lymphocytes/100 leukocytes 20 % 12-44 Blood monocytes/100 leukocytes 9 % 0-12 Automated blood eosinophils/100 leukocytes 0 % 0-10 Automated blood basophils/100 leukocytes 0 % 0-10 Blood neutrophils automated count (number/volume) 10.5 10*3 1.8-7.8 Blood lymphocytes automated count (number/volume) 2.9 10*3 1.0-4.0 Blood monocytes automated count (number/volume) 1. 3 10*3 0.0-1.0 Automated eosinophil count 0.1 10*3/uL 0 .0-0.3 Automated blood basophil count (count/volume) 0.0 10*3/uL 0.0-0.1 Whole blood basic metabolic panel - /0 11/23 03:25 Serum or plasma sodium measurement (moles/volume) 141 mmol/L 135-145 Serum or plasma potassium measurement (moles/volume) 3.7 mmol/L 3.6-5.0 Serum or plasma chloride measurement (moles/volume) 108 mmol/L 98-107 Carbon dioxide 23 mmol/L 21-32 Serum or plasma anion gap determination (moles/volume) 10 mmol/L 5-14 Serum or plasma urea nitrogen measurement (mass/volume ) 13 mg/dL 7-18 Serum or plasma creatinine measurement (mass/volume) 0.77 mg/dL 0.60-1.30 Serum or plasma urea nitrogen/creatinine mass ratio 17 NRG Serum or plasma creatinine measurement w ith calculation of estimated glomerular filtration rate > NRG Serum or plasma glucose measurement (mass/volume) 137 mg/dL 70-105 Serum or plasma calcium measurement (mass/volume) 8.0 mg/dL 8.5-10.1 Serum or plasma phosphate measurement (m ass/volume) - 01/10/18 03:25 Serum or plasma phosphate measurement (mass/volume) 2.2 mg/dL 2.3-4.7 Magnesium - 01/10/18 03:25 Magnesium 2.1 mg/dL 1.8-2.4 Blood manual differential performed dete ction - 01/10/18 03:25 Blood monocytes/100 leukocytes 10 % NRG Manual blood segmented neutrophils/100 leukocytes 74 % NRG Manual blood lymphocytes/100 leukocytes 16 % NRG Blood anisocytosis detection by light microscopy S LIGHT NRG Blood macrocytes detection by light microscopy SLI GHT NRG Blood ovalocytes detection by light microscopy SLI [facility] NRG Blood toxic granules detection by light microscopy 1+ NRG Blood poikilocytosis detection by light microscopy SLIGHT NRG Blood microcytes detection by light microscopy SLI GHT NRG Automated blood complete blood count (he mogram) panel - 01/11/18 05:18 Blood leukocytes automated count (number/volume) 10.7 10*3/uL 4.3-11.0 Blood erythrocytes automated count (number/volume) 3.63 10*6/uL 4.35-5.85 Venous blood hemoglobin measurement (mass/volume) 9.9 g/dL 11.5-16.0 Blood hematocrit (volume fraction) 32 % 35-52 Automated erythrocyte mean corpuscular volume 87 [ foz_us] 80-99 Automated erythrocyte mean corpuscular h emoglobin (mass per erythrocyte) 27 pg 25-34 Automated erythrocyte mean corpuscular h emoglobin concentration measurement (mass/volume) 31 g/dL 32-36 Automated erythrocyte distribution width ratio 16. 5 % 10.0- 14.5 Automated blood platelet count (count/volume) 287 10*3/uL 130-400 Automated blood platelet mean volume measurement 10.5 [foz_us] 7.4-10.4 Comprehensive metabolic panel - 01/11/18 05:18 Serum or plasma sodium measurement (moles/volume) 138 mmol/L 135-145 Serum or plasma potassium measurement (moles/volume) 3.2 mmol/L 3.6-5.0 Serum or plasma chloride measurement (moles/volume) 102 mmol/L 98-107 Carbon dioxide 26 mmol/L 21-32 Serum or plasma anion gap determination (moles/volume) 10 mmol/L 5-14 Serum or plasma urea nitrogen measurement (mass/volume ) 12 mg/dL 7-18 Serum or plasma creatinine measurement (mass/volume) 0.73 mg/dL 0.60-1.30 Serum or plasma urea nitrogen/creatinine mass ratio 16 NRG Serum or plasma creatinine measurement w ith calculation of estimated glomerular filtration rate > NRG Serum or plasma glucose measurement (mass/volume) 155 mg/dL 70-105 Serum or plasma calcium measurement (mass/volume) 8.1 mg/dL 8.5-10.1 Serum or plasma total bilirubin measurement (mass/volu me) 1.6 mg/dL 0.1-1.0 Serum or plasma alkaline phosphatase keith surement (enzymatic activity/volume) 112 U/L 40-136 Serum or plasma aspartate aminotransfera se measurement (enzymatic activity/volume) 23 U/L 5-34 Serum or plasma alanine aminotransferase measurement (enzymatic activity/volume) 22 U/L 0-55 Serum or plasma protein measurement (mass/volume) 5.9 g/dL 6.4-8.2 Serum or plasma albumin measurement (mass/volume) 3.5 g/dL 3.2-4.5 Complete blood count (CBC) with automate d white blood cell (WBC) differential - 01/13/18 03:35 Blood leukocytes automated count (number/volume) 11.1 10*3/uL 4.3-11.0 Blood erythrocytes automated count (number/volume) 3.76 10*6/uL 4.35-5.85 Venous blood hemoglobin measurement (mass/volume) 10.1 g/dL 11.5-16.0 Blood hematocrit (volume fraction) 32 % 35-52 Automated erythrocyte mean corpuscular volume 86 [ foz_us] 80-99 Automated erythrocyte mean corpuscular h emoglobin (mass per erythrocyte) 27 pg 25-34 Automated erythrocyte mean corpuscular h emoglobin concentration measurement (mass/volume) 31 g/dL 32-36 Automated erythrocyte distribution width ratio 16. 7 % 10.0- 14.5 Automated blood platelet count (count/volume) 321 10*3/uL 130-400 Automated blood platelet mean volume measurement 10.2 [foz_us] 7.4-10.4 Automated blood neutrophils/100 leukocytes 62 % 42-75 Automated blood lymphocytes/100 leukocytes 26 % 12-44 Blood monocytes/100 leukocytes 9 % 0-12 Automated blood eosinophils/100 leukocytes 3 % 0-10 Automated blood basophils/100 leukocytes 1 % 0-10 Blood neutrophils automated count (number/volume) 6.8 10*3 1.8-7.8 Blood lymphocytes automated count (number/volume) 2.8 10*3 1.0-4.0 Blood monocytes automated count (number/volume) 1. 0 10*3 0.0-1.0 Automated eosinophil count 0.4 10*3/uL 0 .0-0.3 Automated blood basophil count (count/volume) 0.1 10*3/uL 0.0-0.1 Comprehensive metabolic panel - 01/13/18 03:35 Serum or plasma sodium measurement (moles/volume) 140 mmol/L 135-145 Serum or plasma potassium measurement (moles/volume) 3.7 mmol/L 3.6-5.0 Serum or plasma chloride measurement (moles/volume) 105 mmol/L 98-107 Carbon dioxide 26 mmol/L 21-32 Serum or plasma anion gap determination (moles/volume) 9 mmol/L 5-14 Serum or plasma urea nitrogen measurement (mass/volume ) 11 mg/dL 7-18 Serum or plasma creatinine measurement (mass/volume) 0.70 mg/dL 0.60-1.30 Serum or plasma urea nitrogen/creatinine mass ratio 16 NRG Serum or plasma creatinine measurement w ith calculation of estimated glomerular filtration rate > NRG Serum or plasma glucose measurement (mass/volume) 98 mg/dL 70-105 Serum or plasma calcium measurement (mass/volume) 8.7 mg/dL 8.5-10.1 Serum or plasma total bilirubin measurement (mass/volu me) 1.3 mg/dL 0.1-1.0 Serum or plasma alkaline phosphatase keith surement (enzymatic activity/volume) 122 U/L 40-136 Serum or plasma aspartate aminotransfera se measurement (enzymatic activity/volume) 24 U/L 5-34 Serum or plasma alanine aminotransferase measurement (enzymatic activity/volume) 17 U/L 0-55 Serum or plasma protein measurement (mass/volume) 6.0 g/dL 6.4-8.2 Serum or plasma albumin measurement (mass/volume) 3.5 g/dL 3.2-4.5 Complete blood count (CBC) with automate d white blood cell (WBC) differential - 01/14/18 05:22 Blood leukocytes automated count (number/volume) 11.1 10*3/uL 4.3-11.0 Blood erythrocytes automated count (number/volume) 3.62 10*6/uL 4.35-5.85 Venous blood hemoglobin measurement (mass/volume) 9.9 g/dL 11.5-16.0 Blood hematocrit (volume fraction) 31 % 35-52 Automated erythrocyte mean corpuscular volume 87 [ foz_us] 80-99 Automated erythrocyte mean corpuscular h emoglobin (mass per erythrocyte) 27 pg 25-34 Automated erythrocyte mean corpuscular h emoglobin concentration measurement (mass/volume) 32 g/dL 32-36 Automated erythrocyte distribution width ratio 17. 0 % 10.0- 14.5 Automated blood platelet count (count/volume) 325 10*3/uL 130-400 Automated blood platelet mean volume measurement 10.1 [foz_us] 7.4-10.4 Automated blood neutrophils/100 leukocytes 61 % 42-75 Automated blood lymphocytes/100 leukocytes 27 % 12-44 Blood monocytes/100 leukocytes 9 % 0-12 Automated blood eosinophils/100 leukocytes 3 % 0-10 Automated blood basophils/100 leukocytes 0 % 0-10 Blood neutrophils automated count (number/volume) 6.8 10*3 1.8-7.8 Blood lymphocytes automated count (number/volume) 3.0 10*3 1.0-4.0 Blood monocytes automated count (number/volume) 1. 0 10*3 0.0-1.0 Automated eosinophil count 0.3 10*3/uL 0 .0-0.3 Automated blood basophil count (count/volume) 0.0 10*3/uL 0.0-0.1 PT panel in platelet poor plasma by coag ulation assay - 01/14/18 05:22 Prothrombin time (PT) in platelet poor plasma by coagu lation assay 17.4 s 12.2-14.7 INR in platelet poor plasma or blood by coagulation as say 1.4 0.8-1.4 Comprehensive metabolic panel - 01/14/18 05:22 Serum or plasma sodium measurement (moles/volume) 139 mmol/L 135-145 Serum or plasma potassium measurement (moles/volume) 3.6 mmol/L 3.6-5.0 Serum or plasma chloride measurement (moles/volume) 105 mmol/L 98-107 Carbon dioxide 24 mmol/L 21-32 Serum or plasma anion gap determination (moles/volume) 10 mmol/L 5-14 Serum or plasma urea nitrogen measurement (mass/volume ) 11 mg/dL 7-18 Serum or plasma creatinine measurement (mass/volume) 0.69 mg/dL 0.60-1.30 Serum or plasma urea nitrogen/creatinine mass ratio 16 NRG Serum or plasma creatinine measurement w ith calculation of estimated glomerular filtration rate > NRG Serum or plasma glucose measurement (mass/volume) 122 mg/dL 70-105 Serum or plasma calcium measurement (mass/volume) 8.7 mg/dL 8.5-10.1 Serum or plasma total bilirubin measurement (mass/volu me) 1.0 mg/dL 0.1-1.0 Serum or plasma alkaline phosphatase keith surement (enzymatic activity/volume) 133 U/L 40-136 Serum or plasma aspartate aminotransfera se measurement (enzymatic activity/volume) 18 U/L 5-34 Serum or plasma alanine aminotransferase measurement (enzymatic activity/volume) 16 U/L 0-55 Serum or plasma protein measurement (mass/volume) 5.9 g/dL 6.4-8.2 Serum or plasma albumin measurement (mass/volume) 3.5 g/dL 3.2-4.5 PT panel in platelet poor plasma by coag ulation assay - 03/13/18 06:55 Prothrombin time (PT) in platelet poor plasma by coagu lation assay 15.8 s 12.2-14.7 INR in platelet poor plasma or blood by coagulation as say 1.3 0.8-1.4 Methicillin resistant Staphylococcus aur eus (MRSA) screening culture - 03/13/18 07:15 Methicillin resistant Staphylococcus aureus (MRSA) scr eening culture NEG NRG Complete blood count (CBC) with automate d white blood cell (WBC) differential - 03/15/18 12:41 Blood leukocytes automated count (number/volume) 10.7 10*3/uL 4.3-11.0 Blood erythrocytes automated count (number/volume) 4.47 10*6/uL 4.35-5.85 Venous blood hemoglobin measurement (mass/volume) 10.6 g/dL 11.5-16.0 Blood hematocrit (volume fraction) 35 % 35-52 Automated erythrocyte mean corpuscular volume 77 [ foz_us] 80-99 Automated erythrocyte mean corpuscular h emoglobin (mass per erythrocyte) 24 pg 25-34 Automated erythrocyte mean corpuscular h emoglobin concentration measurement (mass/volume) 31 g/dL 32-36 Automated erythrocyte distribution width ratio 18. 7 % 10.0- 14.5 Automated blood platelet count (count/volume) 379 10*3/uL 130-400 Automated blood platelet mean volume measurement 9.9 [foz_us] 7.4-10.4 Automated blood neutrophils/100 leukocytes 59 % 42-75 Automated blood lymphocytes/100 leukocytes 30 % 12-44 Blood monocytes/100 leukocytes 9 % 0-12 Automated blood eosinophils/100 leukocytes 1 % 0-10 Automated blood basophils/100 leukocytes 1 % 0-10 Blood neutrophils automated count (number/volume) 6.3 10*3 1.8-7.8 Blood lymphocytes automated count (number/volume) 3.2 10*3 1.0-4.0 Blood monocytes automated count (number/volume) 1. 0 10*3 0.0-1.0 Automated eosinophil count 0.1 10*3/uL 0 .0-0.3 Automated blood basophil count (count/volume) 0.1 10*3/uL 0.0-0.1 PT panel in platelet poor plasma by coag ulation assay - 03/15/18 12:41 Prothrombin time (PT) in platelet poor plasma by coagu lation assay 19.6 s 12.2-14.7 INR in platelet poor plasma or blood by coagulation as say 1.7 0.8-1.4 Comprehensive metabolic panel - 03/15/18 12:41 Serum or plasma sodium measurement (moles/volume) 136 mmol/L 135-145 Serum or plasma potassium measurement (moles/volume) 3.6 mmol/L 3.6-5.0 Serum or plasma chloride measurement (moles/volume) 101 mmol/L 98-107 Carbon dioxide 22 mmol/L 21-32 Serum or plasma anion gap determination (moles/volume) 13 mmol/L 5-14 Serum or plasma urea nitrogen measurement (mass/volume ) 22 mg/dL 7-18 Serum or plasma creatinine measurement (mass/volume) 0.95 mg/dL 0.60-1.30 Serum or plasma urea nitrogen/creatinine mass ratio 23 NRG Serum or plasma creatinine measurement w ith calculation of estimated glomerular filtration rate 59 NRG Serum or plasma glucose measurement (mass/volume) 112 mg/dL 70-105 Serum or plasma calcium measurement (mass/volume) 9.5 mg/dL 8.5-10.1 Serum or plasma total bilirubin measurement (mass/volu me) 1.7 mg/dL 0.1-1.0 Serum or plasma alkaline phosphatase keith surement (enzymatic activity/volume) 142 U/L 40-136 Serum or plasma aspartate aminotransfera se measurement (enzymatic activity/volume) 28 U/L 5-34 Serum or plasma alanine aminotransferase measurement (enzymatic activity/volume) 17 U/L 0-55 Serum or plasma protein measurement (mass/volume) 7.4 g/dL 6.4-8.2 Serum or plasma albumin measurement (mass/volume) 4.4 g/dL 3.2-4.5 CALCIUM CORRECTED 9.2 mg/dL 8.5-10.1 Complete urinalysis with reflex to cultu re - 03/15/18 13:01 Urine color determination YELLOW NRG Urine clarity determination CLEAR NR G Urine pH measurement by test strip 5 5-9 Specific gravity of urine by test strip 1.025 1.016-1.022 Urine protein assay by test strip, semi-quantitative 3+ NEGATIVE Urine glucose detection by automated test strip NE GATIVE NEGATIVE Erythrocytes detection in urine sediment by light micr oscopy 5+ NEGATIVE Urine ketones detection by automated test strip NE GATIVE NEGATIVE Urine nitrite detection by test strip NEGATIVE NEGATIVE Urine total bilirubin detection by test strip NEGA TIVE NEGATIVE Urine urobilinogen measurement by automated test strip (mass/volume) NORMAL NORMAL Urine leukocyte esterase detection by dipstick 2+ NEGATIVE Automated urine sediment erythrocyte cou nt by microscopy (number/high power field) [HPF] NRG Automated urine sediment leukocyte count by microscopy (number/high power field) [HPF] NRG Bacteria detection in urine sediment by light microsco py NEGATIVE NRG Squamous epithelial cells detection in u rine sediment by light microscopy 0-2 NRG Crystals detection in urine sediment by light microsco py NONE NRG Casts detection in urine sediment by light microscopy NONE NRG Mucus detection in urine sediment by light microscopy NEGATIVE NRG Complete urinalysis with reflex to culture YES NRG Bacterial urine culture - 03/15/18 13:01 Bacterial urine culture NG NRG Complete urinalysis with reflex to cultu re - 04/17/18 17:45 Urine color determination YELLOW NRG Urine clarity determination CLEAR NR G Urine pH measurement by test strip 5 5-9 Specific gravity of urine by test strip 1.010 1.016-1.022 Urine protein assay by test strip, semi-quantitative 3+ NEGATIVE Urine glucose detection by automated test strip NE GATIVE NEGATIVE Erythrocytes detection in urine sediment by light micr oscopy 1+ NEGATIVE Urine ketones detection by automated test strip NE GATIVE NEGATIVE Urine nitrite detection by test strip NEGATIVE NEGATIVE Urine total bilirubin detection by test strip NEGA TIVE NEGATIVE Urine urobilinogen measurement by automated test strip (mass/volume) 1 mg/dL NORMAL Urine leukocyte esterase detection by dipstick NEG ATIVE NEGATIVE Automated urine sediment erythrocyte cou nt by microscopy (number/high power field) [HPF] NRG Automated urine sediment leukocyte count by microscopy (number/high power field) [HPF] NRG Bacteria detection in urine sediment by light microsco py NONE NRG Squamous epithelial cells detection in u rine sediment by light microscopy 2-5 NRG Crystals detection in urine sediment by light microsco py NONE NRG Casts detection in urine sediment by light microscopy NONE NRG Mucus detection in urine sediment by light microscopy NEGATIVE NRG Complete urinalysis with reflex to culture NO NRG Complete blood count (CBC) with automate d white blood cell (WBC) differential - 04/17/18 18:09 Blood leukocytes automated count (number/volume) 8.6 10*3/uL 4.3-11.0 Blood erythrocytes automated count (number/volume) 4.59 10*6/uL 4.35-5.85 Venous blood hemoglobin measurement (mass/volume) 10.3 g/dL 11.5-16.0 Blood hematocrit (volume fraction) 33 % 35-52 Automated erythrocyte mean corpuscular volume 72 [ foz_us] 80-99 Automated erythrocyte mean corpuscular h emoglobin (mass per erythrocyte) 22 pg 25-34 Automated erythrocyte mean corpuscular h emoglobin concentration measurement (mass/volume) 31 g/dL 32-36 Automated erythrocyte distribution width ratio 20. 1 % 10.0- 14.5 Automated blood platelet count (count/volume) 370 10*3/uL 130-400 Automated blood platelet mean volume measurement 9.8 [foz_us] 7.4-10.4 Automated blood neutrophils/100 leukocytes 63 % 42-75 Automated blood lymphocytes/100 leukocytes 29 % 12-44 Blood monocytes/100 leukocytes 7 % 0-12 Automated blood eosinophils/100 leukocytes 1 % 0-10 Automated blood basophils/100 leukocytes 1 % 0-10 Blood neutrophils automated count (number/volume) 5.4 10*3 1.8-7.8 Blood lymphocytes automated count (number/volume) 2.5 10*3 1.0-4.0 Blood monocytes automated count (number/volume) 0. 6 10*3 0.0-1.0 Automated eosinophil count 0.0 10*3/uL 0 .0-0.3 Automated blood basophil count (count/volume) 0.0 10*3/uL 0.0-0.1 PT panel in platelet poor plasma by coag ulation assay - 04/17/18 18:09 Prothrombin time (PT) in platelet poor plasma by coagu lation assay 48.3 s 12.2-14.7 INR in platelet poor plasma or blood by coagulation as say 5.3 0.8-1.4 Comprehensive metabolic panel - 04/17/18 18:09 Serum or plasma sodium measurement (moles/volume) 138 mmol/L 135-145 Serum or plasma potassium measurement (moles/volume) 2.8 mmol/L 3.6-5.0 Serum or plasma chloride measurement (moles/volume) 98 mmol/L 98-107 Carbon dioxide 22 mmol/L 21-32 Serum or plasma anion gap determination (moles/volume) 18 mmol/L 5-14 Serum or plasma urea nitrogen measurement (mass/volume ) 17 mg/dL 7-18 Serum or plasma creatinine measurement (mass/volume) 1.03 mg/dL 0.60-1.30 Serum or plasma urea nitrogen/creatinine mass ratio 17 NRG Serum or plasma creatinine measurement w ith calculation of estimated glomerular filtration rate 54 NRG Serum or plasma glucose measurement (mass/volume) 96 mg/dL 70-105 Serum or plasma calcium measurement (mass/volume) 9.0 mg/dL 8.5-10.1 Serum or plasma total bilirubin measurement (mass/volu me) 2.5 mg/dL 0.1-1.0 Serum or plasma alkaline phosphatase keith surement (enzymatic activity/volume) 169 U/L 40-136 Serum or plasma aspartate aminotransfera se measurement (enzymatic activity/volume) 27 U/L 5-34 Serum or plasma alanine aminotransferase measurement (enzymatic activity/volume) 16 U/L 0-55 Serum or plasma protein measurement (mass/volume) 7.1 g/dL 6.4-8.2 Serum or plasma albumin measurement (mass/volume) 4.2 g/dL 3.2-4.5 CALCIUM CORRECTED 8.8 mg/dL 8.5-10.1 Serum or plasma lithium measurement (mol es/volume) - 04/17/18 18:09 BNP level 804.7 pg/mL <100.0 PT panel in platelet poor plasma by coag ulation assay - 04/18/18 05:40 Prothrombin time (PT) in platelet poor plasma by coagu lation assay 37.4 s 12.2-14.7 INR in platelet poor plasma or blood by coagulation as say 3.8 0.8-1.4 Whole blood basic metabolic panel - 04/08 07/26 05:40 Serum or plasma sodium measurement (moles/volume) 138 mmol/L 135-145 Serum or plasma potassium measurement (moles/volume) 2.9 mmol/L 3.6-5.0 Serum or plasma chloride measurement (moles/volume) 97 mmol/L 98-107 Carbon dioxide 23 mmol/L 21-32 Serum or plasma anion gap determination (moles/volume) 18 mmol/L 5-14 Serum or plasma urea nitrogen measurement (mass/volume ) 15 mg/dL 7-18 Serum or plasma creatinine measurement (mass/volume) 0.93 mg/dL 0.60-1.30 Serum or plasma urea nitrogen/creatinine mass ratio 16 NRG Serum or plasma creatinine measurement w ith calculation of estimated glomerular filtration rate > NRG Serum or plasma glucose measurement (mass/volume) 108 mg/dL 70-105 Serum or plasma calcium measurement (mass/volume) 9.2 mg/dL 8.5-10.1 Magnesium - 04/18/18 05:40 Magnesium 1.5 mg/dL 1.8-2.4 Comprehensive metabolic panel - 04/19/18 05:08 Serum or plasma sodium measurement (moles/volume) 138 mmol/L 135-145 Serum or plasma potassium measurement (moles/volume) 3.1 mmol/L 3.6-5.0 Serum or plasma chloride measurement (moles/volume) 97 mmol/L 98-107 Carbon dioxide 26 mmol/L 21-32 Serum or plasma anion gap determination (moles/volume) 15 mmol/L 5-14 Serum or plasma urea nitrogen measurement (mass/volume ) 18 mg/dL 7-18 Serum or plasma creatinine measurement (mass/volume) 1.03 mg/dL 0.60-1.30 Serum or plasma urea nitrogen/creatinine mass ratio 17 NRG Serum or plasma creatinine measurement w ith calculation of estimated glomerular filtration rate 54 NRG Serum or plasma glucose measurement (mass/volume) 118 mg/dL 70-105 Serum or plasma calcium measurement (mass/volume) 8.9 mg/dL 8.5-10.1 Serum or plasma total bilirubin measurement (mass/volu me) 2.2 mg/dL 0.1-1.0 Serum or plasma alkaline phosphatase keith surement (enzymatic activity/volume) 159 U/L 40-136 Serum or plasma aspartate aminotransfera se measurement (enzymatic activity/volume) 26 U/L 5-34 Serum or plasma alanine aminotransferase measurement (enzymatic activity/volume) 14 U/L 0-55 Serum or plasma protein measurement (mass/volume) 7.8 g/dL 6.4-8.2 Serum or plasma albumin measurement (mass/volume) 4.2 g/dL 3.2-4.5 CALCIUM CORRECTED 8.7 mg/dL 8.5-10.1 Magnesium - 04/19/18 05:08 Magnesium 1.8 mg/dL 1.8-2.4 Automated blood complete blood count (he mogram) panel - 04/19/18 05:08 Blood leukocytes automated count (number/volume) 8.3 10*3/uL 4.3-11.0 Blood erythrocytes automated count (number/volume) 4.62 10*6/uL 4.35-5.85 Venous blood hemoglobin measurement (mass/volume) 9.9 g/dL 11.5-16.0 Blood hematocrit (volume fraction) 33 % 35-52 Automated erythrocyte mean corpuscular volume 72 [ foz_us] 80-99 Automated erythrocyte mean corpuscular h emoglobin (mass per erythrocyte) 21 pg 25-34 Automated erythrocyte mean corpuscular h emoglobin concentration measurement (mass/volume) 30 g/dL 32-36 Automated erythrocyte distribution width ratio 20. 2 % 10.0- 14.5 Automated blood platelet count (count/volume) 385 10*3/uL 130-400 Automated blood platelet mean volume measurement 9.9 [foz_us] 7.4-10.4 PT panel in platelet poor plasma by coag ulation assay - 04/19/18 05:08 Prothrombin time (PT) in platelet poor plasma by coagu lation assay 38.8 s 12.2-14.7 INR in platelet poor plasma or blood by coagulation as say 3.9 0.8-1.4 Automated blood complete blood count (he mogram) panel - 04/20/18 04:19 Blood leukocytes automated count (number/volume) 10.0 10*3/uL 4.3-11.0 Blood erythrocytes automated count (number/volume) 4.33 10*6/uL 4.35-5.85 Venous blood hemoglobin measurement (mass/volume) 9.4 g/dL 11.5-16.0 Blood hematocrit (volume fraction) 32 % 35-52 Automated erythrocyte mean corpuscular volume 73 [ foz_us] 80-99 Automated erythrocyte mean corpuscular h emoglobin (mass per erythrocyte) 22 pg 25-34 Automated erythrocyte mean corpuscular h emoglobin concentration measurement (mass/volume) 30 g/dL 32-36 Automated erythrocyte distribution width ratio 19. 9 % 10.0- 14.5 Automated blood platelet count (count/volume) 362 10*3/uL 130-400 Automated blood platelet mean volume measurement 9.9 [foz_us] 7.4-10.4 PT panel in platelet poor plasma by coag ulation assay - 04/20/18 04:19 Prothrombin time (PT) in platelet poor plasma by coagu lation assay 31.0 s 12.2-14.7 INR in platelet poor plasma or blood by coagulation as say 3.0 0.8-1.4 Comprehensive metabolic panel - 04/20/18 04:19 Serum or plasma sodium measurement (moles/volume) 138 mmol/L 135-145 Serum or plasma potassium measurement (moles/volume) 4.3 mmol/L 3.6-5.0 Serum or plasma chloride measurement (moles/volume) 101 mmol/L 98-107 Carbon dioxide 22 mmol/L 21-32 Serum or plasma anion gap determination (moles/volume) 15 mmol/L 5-14 Serum or plasma urea nitrogen measurement (mass/volume ) 17 mg/dL 7-18 Serum or plasma creatinine measurement (mass/volume) 0.88 mg/dL 0.60-1.30 Serum or plasma urea nitrogen/creatinine mass ratio 19 NRG Serum or plasma creatinine measurement w ith calculation of estimated glomerular filtration rate > NRG Serum or plasma glucose measurement (mass/volume) 136 mg/dL 70-105 Serum or plasma calcium measurement (mass/volume) 9.1 mg/dL 8.5-10.1 Serum or plasma total bilirubin measurement (mass/volu me) 2.0 mg/dL 0.1-1.0 Serum or plasma alkaline phosphatase keith surement (enzymatic activity/volume) 151 U/L 40-136 Serum or plasma aspartate aminotransfera se measurement (enzymatic activity/volume) 23 U/L 5-34 Serum or plasma alanine aminotransferase measurement (enzymatic activity/volume) 15 U/L 0-55 Serum or plasma protein measurement (mass/volume) 6.8 g/dL 6.4-8.2 Serum or plasma albumin measurement (mass/volume) 4.1 g/dL 3.2-4.5 CALCIUM CORRECTED 9.0 mg/dL 8.5-10.1 Magnesium - 04/20/18 04:19 Magnesium 1.8 mg/dL 1.8-2.4 Serum or plasma lithium measurement (mol es/volume) - 04/20/18 04:19 BNP level 624.2 pg/mL <100.0 Automated blood complete blood count (he mogram) panel - 04/21/18 04:00 Blood leukocytes automated count (number/volume) 8.4 10*3/uL 4.3-11.0 Blood erythrocytes automated count (number/volume) 4.56 10*6/uL 4.35-5.85 Venous blood hemoglobin measurement (mass/volume) 9.8 g/dL 11.5-16.0 Blood hematocrit (volume fraction) 33 % 35-52 Automated erythrocyte mean corpuscular volume 72 [ foz_us] 80-99 Automated erythrocyte mean corpuscular h emoglobin (mass per erythrocyte) 21 pg 25-34 Automated erythrocyte mean corpuscular h emoglobin concentration measurement (mass/volume) 30 g/dL 32-36 Automated erythrocyte distribution width ratio 20. 4 % 10.0- 14.5 Automated blood platelet count (count/volume) 384 10*3/uL 130-400 Automated blood platelet mean volume measurement 9.9 [foz_us] 7.4-10.4 Comprehensive metabolic panel - 04/21/18 04:40 Serum or plasma sodium measurement (moles/volume) 138 mmol/L 135-145 Serum or plasma potassium measurement (moles/volume) 4.1 mmol/L 3.6-5.0 Serum or plasma chloride measurement (moles/volume) 100 mmol/L 98-107 Carbon dioxide 26 mmol/L 21-32 Serum or plasma anion gap determination (moles/volume) 12 mmol/L 5-14 Serum or plasma urea nitrogen measurement (mass/volume ) 17 mg/dL 7-18 Serum or plasma creatinine measurement (mass/volume) 0.90 mg/dL 0.60-1.30 Serum or plasma urea nitrogen/creatinine mass ratio 19 NRG Serum or plasma creatinine measurement w ith calculation of estimated glomerular filtration rate > NRG Serum or plasma glucose measurement (mass/volume) 119 mg/dL 70-105 Serum or plasma calcium measurement (mass/volume) 9.4 mg/dL 8.5-10.1 Serum or plasma total bilirubin measurement (mass/volu me) 2.1 mg/dL 0.1-1.0 Serum or plasma alkaline phosphatase keith surement (enzymatic activity/volume) 153 U/L 40-136 Serum or plasma aspartate aminotransfera se measurement (enzymatic activity/volume) 23 U/L 5-34 Serum or plasma alanine aminotransferase measurement (enzymatic activity/volume) 15 U/L 0-55 Serum or plasma protein measurement (mass/volume) 7.2 g/dL 6.4-8.2 Serum or plasma albumin measurement (mass/volume) 4.2 g/dL 3.2-4.5 CALCIUM CORRECTED 9.2 mg/dL 8.5-10.1 Magnesium - 04/21/18 04:40 Magnesium 1.8 mg/dL 1.8-2.4 PT panel in platelet poor plasma by coag ulation assay - 04/21/18 04:40 Prothrombin time (PT) in platelet poor plasma by coagu lation assay 25.8 s 12.2-14.7 INR in platelet poor plasma or blood by coagulation as say 2.3 0.8-1.4 PT panel in platelet poor plasma by coag ulation assay - 04/22/18 05:27 Prothrombin time (PT) in platelet poor plasma by coagu lation assay 19.4 s 12.2-14.7 INR in platelet poor plasma or blood by coagulation as say 1.6 0.8-1.4 Whole blood basic metabolic panel - 04/08 11/23 05:27 Serum or plasma sodium measurement (moles/volume) 136 mmol/L 135-145 Serum or plasma potassium measurement (moles/volume) 4.1 mmol/L 3.6-5.0 Serum or plasma chloride measurement (moles/volume) 96 mmol/L 98-107 Carbon dioxide 24 mmol/L 21-32 Serum or plasma anion gap determination (moles/volume) 16 mmol/L 5-14 Serum or plasma urea nitrogen measurement (mass/volume ) 17 mg/dL 7-18 Serum or plasma creatinine measurement (mass/volume) 0.96 mg/dL 0.60-1.30 Serum or plasma urea nitrogen/creatinine mass ratio 18 NRG Serum or plasma creatinine measurement w ith calculation of estimated glomerular filtration rate 58 NRG Serum or plasma glucose measurement (mass/volume) 111 mg/dL 70-105 Serum or plasma calcium measurement (mass/volume) 9.6 mg/dL 8.5-10.1 Automated blood complete blood count ( mogram) panel - 04/25/18 08:45 Blood leukocytes automated count (number/volume) 11.1 10*3/uL 4.3-11.0 Blood erythrocytes automated count (number/volume) 5.31 10*6/uL 4.35-5.85 Venous blood hemoglobin measurement (mass/volume) 11.4 g/dL 11.5-16.0 Blood hematocrit (volume fraction) 38 % 35-52 Automated erythrocyte mean corpuscular volume 71 [ foz_us] 80-99 Automated erythrocyte mean corpuscular h emoglobin (mass per erythrocyte) 21 pg 25-34 Automated erythrocyte mean corpuscular h emoglobin concentration measurement (mass/volume) 30 g/dL 32-36 Automated erythrocyte distribution width ratio 21. 1 % 10.0- 14.5 Automated blood platelet count (count/volume) 478 10*3/uL 130-400 Automated blood platelet mean volume measurement 9.8 [foz_us] 7.4-10.4 PT panel in platelet poor plasma by coag ulation assay - 04/25/18 08:45 Prothrombin time (PT) in platelet poor plasma by coagu lation assay 15.4 s 12.2-14.7 INR in platelet poor plasma or blood by coagulation as say 1.2 0.8-1.4 Activated partial thromboplastin time (a PTT) in platelet poor plasma bycoagulation assay - 04/25/18 08:45 Activated partial thromboplastin time (a PTT) in platelet poor plasma bycoagulation assay 30 s 24-35 Comprehensive metabolic panel - 04/25/18 08:45 Serum or plasma sodium measurement (moles/volume) 138 mmol/L 135-145 Serum or plasma potassium measurement (moles/volume) 3.7 mmol/L 3.6-5.0 Serum or plasma chloride measurement (moles/volume) 98 mmol/L 98-107 Carbon dioxide 26 mmol/L 21-32 Serum or plasma anion gap determination (moles/volume) 14 mmol/L 5-14 Serum or plasma urea nitrogen measurement (mass/volume ) 26 mg/dL 7-18 Serum or plasma creatinine measurement (mass/volume) 1.37 mg/dL 0.60-1.30 Serum or plasma urea nitrogen/creatinine mass ratio 19 NRG Serum or plasma creatinine measurement w ith calculation of estimated glomerular filtration rate 39 NRG Serum or plasma glucose measurement (mass/volume) 91 mg/dL 70-105 Serum or plasma calcium measurement (mass/volume) 9.5 mg/dL 8.5-10.1 Serum or plasma total bilirubin measurement (mass/volu me) 2.6 mg/dL 0.1-1.0 Serum or plasma alkaline phosphatase keith surement (enzymatic activity/volume) 202 U/L 40-136 Serum or plasma aspartate aminotransfera se measurement (enzymatic activity/volume) 31 U/L 5-34 Serum or plasma alanine aminotransferase measurement (enzymatic activity/volume) 22 U/L 0-55 Serum or plasma protein measurement (mass/volume) 8.3 g/dL 6.4-8.2 Serum or plasma albumin measurement (mass/volume) 4.6 g/dL 3.2-4.5 Methicillin resistant Staphylococcus aur eus (MRSA) screening culture - 04/25/18 08:45 Methicillin resistant Staphylococcus aureus (MRSA) scr eening culture NEG NRG Automated blood complete blood count (he mogram) panel - 04/26/18 03:35 Blood leukocytes automated count (number/volume) 10.0 10*3/uL 4.3-11.0 Blood erythrocytes automated count (number/volume) 4.03 10*6/uL 4.35-5.85 Venous blood hemoglobin measurement (mass/volume) 9.0 g/dL 11.5-16.0 Blood hematocrit (volume fraction) 29 % 35-52 Automated erythrocyte mean corpuscular volume 72 [ foz_us] 80-99 Automated erythrocyte mean corpuscular h emoglobin (mass per erythrocyte) 22 pg 25-34 Automated erythrocyte mean corpuscular h emoglobin concentration measurement (mass/volume) 31 g/dL 32-36 Automated erythrocyte distribution width ratio 20. 1 % 10.0- 14.5 Automated blood platelet count (count/volume) 339 10*3/uL 130-400 Automated blood platelet mean volume measurement 9.7 [foz_us] 7.4-10.4 Comprehensive metabolic panel - 04/26/18 03:35 Serum or plasma sodium measurement (moles/volume) 136 mmol/L 135-145 Serum or plasma potassium measurement (moles/volume) 3.7 mmol/L 3.6-5.0 Serum or plasma chloride measurement (moles/volume) 103 mmol/L 98-107 Carbon dioxide 19 mmol/L 21-32 Serum or plasma anion gap determination (moles/volume) 14 mmol/L 5-14 Serum or plasma urea nitrogen measurement (mass/volume ) 23 mg/dL 7-18 Serum or plasma creatinine measurement (mass/volume) 1.01 mg/dL 0.60-1.30 Serum or plasma urea nitrogen/creatinine mass ratio 23 NRG Serum or plasma creatinine measurement w ith calculation of estimated glomerular filtration rate 55 NRG Serum or plasma glucose measurement (mass/volume) 120 mg/dL 70-105 Serum or plasma calcium measurement (mass/volume) 8.7 mg/dL 8.5-10.1 Serum or plasma total bilirubin measurement (mass/volu me) 1.7 mg/dL 0.1-1.0 Serum or plasma alkaline phosphatase keith surement (enzymatic activity/volume) 161 U/L 40-136 Serum or plasma aspartate aminotransfera se measurement (enzymatic activity/volume) 38 U/L 5-34 Serum or plasma alanine aminotransferase measurement (enzymatic activity/volume) 23 U/L 0-55 Serum or plasma protein measurement (mass/volume) 6.4 g/dL 6.4-8.2 Serum or plasma albumin measurement (mass/volume) 3.7 g/dL 3.2-4.5 CALCIUM CORRECTED 8.9 mg/dL 8.5-10.1 Complete blood count (CBC) with automate d white blood cell (WBC) differential - 06/30/18 15:40 Blood leukocytes automated count (number/volume) 9.8 10*3/uL 4.3-11.0 Blood erythrocytes automated count (number/volume) 4.02 10*6/uL 4.35-5.85 Venous blood hemoglobin measurement (mass/volume) 9.3 g/dL 11.5-16.0 Blood hematocrit (volume fraction) 30 % 35-52 Automated erythrocyte mean corpuscular volume 75 [ foz_us] 80-99 Automated erythrocyte mean corpuscular h emoglobin (mass per erythrocyte) 23 pg 25-34 Automated erythrocyte mean corpuscular h emoglobin concentration measurement (mass/volume) 31 g/dL 32-36 Automated erythrocyte distribution width ratio 22. 4 % 10.0- 14.5 Automated blood platelet count (count/volume) 356 10*3/uL 130-400 Automated blood platelet mean volume measurement 9.7 [foz_us] 7.4-10.4 Automated blood neutrophils/100 leukocytes 61 % 42-75 Automated blood lymphocytes/100 leukocytes 32 % 12-44 Blood monocytes/100 leukocytes 6 % 0-12 Automated blood eosinophils/100 leukocytes 1 % 0-10 Automated blood basophils/100 leukocytes 0 % 0-10 Blood neutrophils automated count (number/volume) 5.9 10*3 1.8-7.8 Blood lymphocytes automated count (number/volume) 3.2 10*3 1.0-4.0 Blood monocytes automated count (number/volume) 0. 6 10*3 0.0-1.0 Automated eosinophil count 0.1 10*3/uL 0 .0-0.3 Automated blood basophil count (count/volume) 0.0 10*3/uL 0.0-0.1 Comprehensive metabolic panel - 06/30/18 15:40 Serum or plasma sodium measurement (moles/volume) 140 mmol/L 135-145 Serum or plasma potassium measurement (moles/volume) 3.2 mmol/L 3.6-5.0 Serum or plasma chloride measurement (moles/volume) 104 mmol/L 98-107 Carbon dioxide 20 mmol/L 21-32 Serum or plasma anion gap determination (moles/volume) 16 mmol/L 5-14 Serum or plasma urea nitrogen measurement (mass/volume ) 19 mg/dL 7-18 Serum or plasma creatinine measurement (mass/volume) 0.95 mg/dL 0.60-1.30 Serum or plasma urea nitrogen/creatinine mass ratio 20 NRG Serum or plasma creatinine measurement w ith calculation of estimated glomerular filtration rate 59 NRG Serum or plasma glucose measurement (mass/volume) 120 mg/dL 70-105 Serum or plasma calcium measurement (mass/volume) 9.2 mg/dL 8.5-10.1 Serum or plasma total bilirubin measurement (mass/volu me) 0.8 mg/dL 0.1-1.0 Serum or plasma alkaline phosphatase keith surement (enzymatic activity/volume) 100 U/L 40-136 Serum or plasma aspartate aminotransfera se measurement (enzymatic activity/volume) 21 U/L 5-34 Serum or plasma alanine aminotransferase measurement (enzymatic activity/volume) 8 U/L 0-55 Serum or plasma protein measurement (mass/volume) 7.7 g/dL 6.4-8.2 Serum or plasma albumin measurement (mass/volume) 4.4 g/dL 3.2-4.5 CALCIUM CORRECTED 8.9 mg/dL 8.5-10.1 Magnesium - 06/30/18 15:40 Magnesium 1.9 mg/dL 1.8-2.4 Serum or plasma troponin i.cardiac measu rement (mass/volume) - 06/30/18 15:40 Serum or plasma troponin i.cardiac measurement (mass/v olume) < ng/mL <0.30 Myoglobin, serum - 06/30/18 15:40 Myoglobin, serum 36.3 ng/mL 10.0-92.0 THYROID STIMULATING HORMONE - 06/30/18 1 5:40 THYROID STIMULATING HORMONE 2.50 u[iU]/mL 0.35-4.94 PT panel in platelet poor plasma by coag ulation assay - 06/30/18 15:40 Prothrombin time (PT) in platelet poor plasma by coagu lation assay 23.3 s 12.2-14.7 INR in platelet poor plasma or blood by coagulation as say 2.1 0.8-1.4 Activated partial thromboplastin time (a PTT) in platelet poor plasma bycoagulation assay - 06/30/18 15:40 Activated partial thromboplastin time (a PTT) in platelet poor plasma bycoagulation assay 40 s 24-35 Serum or plasma lithium measurement (mol es/volume) - 06/30/18 15:40 BNP level 587.7 pg/mL <100.0 Complete urinalysis with reflex to cultu re - 06/30/18 17:07 Urine color determination YELLOW NRG Urine clarity determination CLEAR NR G Urine pH measurement by test strip 6 5-9 Specific gravity of urine by test strip 1.015 1.016-1.022 Urine protein assay by test strip, semi-quantitative NEGATIVE NEGATIVE Urine glucose detection by automated test strip NE GATIVE NEGATIVE Erythrocytes detection in urine sediment by light micr oscopy NEGATIVE NEGATIVE Urine ketones detection by automated test strip NE GATIVE NEGATIVE Urine nitrite detection by test strip NEGATIVE NEGATIVE Urine total bilirubin detection by test strip NEGA TIVE NEGATIVE Urine urobilinogen measurement by automated test strip (mass/volume) NORMAL NORMAL Urine leukocyte esterase detection by dipstick NEG ATIVE NEGATIVE Automated urine sediment erythrocyte cou nt by microscopy (number/high power field) NONE NRG Automated urine sediment leukocyte count by microscopy (number/high power field) NONE NRG Bacteria detection in urine sediment by light microsco py NEGATIVE NRG Squamous epithelial cells detection in u rine sediment by light microscopy 0-5 NRG Crystals detection in urine sediment by light microsco py PRESENT NRG Casts detection in urine sediment by light microscopy NONE NRG Mucus detection in urine sediment by light microscopy NEGATIVE NRG Complete urinalysis with reflex to culture NO NRG Calcium oxalate crystals detection in ur ine sediment by light microscopy FEW NRG Methicillin resistant Staphylococcus aur eus (MRSA) screening culture - 06/30/18 20:00 Methicillin resistant Staphylococcus aureus (MRSA) scr eening culture NEG NRG Complete blood count (CBC) with automate d white blood cell (WBC) differential - 07/01/18 03:10 Blood leukocytes automated count (number/volume) 12.0 10*3/uL 4.3-11.0 Blood erythrocytes automated count (number/volume) 3.99 10*6/uL 4.35-5.85 Venous blood hemoglobin measurement (mass/volume) 9.1 g/dL 11.5-16.0 Blood hematocrit (volume fraction) 30 % 35-52 Automated erythrocyte mean corpuscular volume 75 [ foz_us] 80-99 Automated erythrocyte mean corpuscular h emoglobin (mass per erythrocyte) 23 pg 25-34 Automated erythrocyte mean corpuscular h emoglobin concentration measurement (mass/volume) 30 g/dL 32-36 Automated erythrocyte distribution width ratio 22. 4 % 10.0- 14.5 Automated blood platelet count (count/volume) 314 10*3/uL 130-400 Automated blood platelet mean volume measurement 9.6 [foz_us] 7.4-10.4 Automated blood neutrophils/100 leukocytes 60 % 42-75 Automated blood lymphocytes/100 leukocytes 33 % 12-44 Blood monocytes/100 leukocytes 7 % 0-12 Automated blood eosinophils/100 leukocytes 1 % 0-10 Automated blood basophils/100 leukocytes 0 % 0-10 Blood neutrophils automated count (number/volume) 7.2 10*3 1.8-7.8 Blood lymphocytes automated count (number/volume) 3.9 10*3 1.0-4.0 Blood monocytes automated count (number/volume) 0. 8 10*3 0.0-1.0 Automated eosinophil count 0.1 10*3/uL 0 .0-0.3 Automated blood basophil count (count/volume) 0.1 10*3/uL 0.0-0.1 Comprehensive metabolic panel - 07/01/18 03:10 Serum or plasma sodium measurement (moles/volume) 139 mmol/L 135-145 Serum or plasma potassium measurement (moles/volume) 3.3 mmol/L 3.6-5.0 Serum or plasma chloride measurement (moles/volume) 105 mmol/L 98-107 Carbon dioxide 21 mmol/L 21-32 Serum or plasma anion gap determination (moles/volume) 13 mmol/L 5-14 Serum or plasma urea nitrogen measurement (mass/volume ) 18 mg/dL 7-18 Serum or plasma creatinine measurement (mass/volume) 0.84 mg/dL 0.60-1.30 Serum or plasma urea nitrogen/creatinine mass ratio 21 NRG Serum or plasma creatinine measurement w ith calculation of estimated glomerular filtration rate > NRG Serum or plasma glucose measurement (mass/volume) 101 mg/dL 70-105 Serum or plasma calcium measurement (mass/volume) 8.7 mg/dL 8.5-10.1 Serum or plasma total bilirubin measurement (mass/volu me) 0.9 mg/dL 0.1-1.0 Serum or plasma alkaline phosphatase keith surement (enzymatic activity/volume) 91 U/L 40-136 Serum or plasma aspartate aminotransfera se measurement (enzymatic activity/volume) 21 U/L 5-34 Serum or plasma alanine aminotransferase measurement (enzymatic activity/volume) 10 U/L 0-55 Serum or plasma protein measurement (mass/volume) 7.4 g/dL 6.4-8.2 Serum or plasma albumin measurement (mass/volume) 4.3 g/dL 3.2-4.5 CALCIUM CORRECTED 8.5 mg/dL 8.5-10.1 Serum or plasma phosphate measurement (m ass/volume) - 07/01/18 03:10 Serum or plasma phosphate measurement (mass/volume) 3.7 mg/dL 2.3-4.7 Magnesium - 07/01/18 03:10 Magnesium 1.8 mg/dL 1.8-2.4 Complete blood count (CBC) with automate d white blood cell (WBC) differential - 07/02/18 03:25 Blood leukocytes automated count (number/volume) 10.3 10*3/uL 4.3-11.0 Blood erythrocytes automated count (number/volume) 3.85 10*6/uL 4.35-5.85 Venous blood hemoglobin measurement (mass/volume) 8.9 g/dL 11.5-16.0 Blood hematocrit (volume fraction) 29 % 35-52 Automated erythrocyte mean corpuscular volume 76 [ foz_us] 80-99 Automated erythrocyte mean corpuscular h emoglobin (mass per erythrocyte) 23 pg 25-34 Automated erythrocyte mean corpuscular h emoglobin concentration measurement (mass/volume) 31 g/dL 32-36 Automated erythrocyte distribution width ratio 22. 3 % 10.0- 14.5 Automated blood platelet count (count/volume) 319 10*3/uL 130-400 Automated blood platelet mean volume measurement 9.3 [foz_us] 7.4-10.4 Automated blood neutrophils/100 leukocytes 56 % 42-75 Automated blood lymphocytes/100 leukocytes 36 % 12-44 Blood monocytes/100 leukocytes 7 % 0-12 Automated blood eosinophils/100 leukocytes 1 % 0-10 Automated blood basophils/100 leukocytes 1 % 0-10 Blood neutrophils automated count (number/volume) 5.7 10*3 1.8-7.8 Blood lymphocytes automated count (number/volume) 3.7 10*3 1.0-4.0 Blood monocytes automated count (number/volume) 0. 7 10*3 0.0-1.0 Automated eosinophil count 0.1 10*3/uL 0 .0-0.3 Automated blood basophil count (count/volume) 0.1 10*3/uL 0.0-0.1 PT panel in platelet poor plasma by coag ulation assay - 07/02/18 03:25 Prothrombin time (PT) in platelet poor plasma by coagu lation assay 22.7 s 12.2-14.7 INR in platelet poor plasma or blood by coagulation as say 2.0 0.8-1.4 Comprehensive metabolic panel - 07/02/18 03:25 Serum or plasma sodium measurement (moles/volume) 139 mmol/L 135-145 Serum or plasma potassium measurement (moles/volume) 3.7 mmol/L 3.6-5.0 Serum or plasma chloride measurement (moles/volume) 106 mmol/L 98-107 Carbon dioxide 19 mmol/L 21-32 Serum or plasma anion gap determination (moles/volume) 14 mmol/L 5-14 Serum or plasma urea nitrogen measurement (mass/volume ) 21 mg/dL 7-18 Serum or plasma creatinine measurement (mass/volume) 0.85 mg/dL 0.60-1.30 Serum or plasma urea nitrogen/creatinine mass ratio 25 NRG Serum or plasma creatinine measurement w ith calculation of estimated glomerular filtration rate > NRG Serum or plasma glucose measurement (mass/volume) 117 mg/dL 70-105 Serum or plasma calcium measurement (mass/volume) 8.9 mg/dL 8.5-10.1 Serum or plasma total bilirubin measurement (mass/volu me) 0.7 mg/dL 0.1-1.0 Serum or plasma alkaline phosphatase keith surement (enzymatic activity/volume) 92 U/L 40-136 Serum or plasma aspartate aminotransfera se measurement (enzymatic activity/volume) 19 U/L 5-34 Serum or plasma alanine aminotransferase measurement (enzymatic activity/volume) 6 U/L 0-55 Serum or plasma protein measurement (mass/volume) 7.1 g/dL 6.4-8.2 Serum or plasma albumin measurement (mass/volume) 4.1 g/dL 3.2-4.5 CALCIUM CORRECTED 8.8 mg/dL 8.5-10.1 Serum or plasma phosphate measurement (m ass/volume) - 07/02/18 03:25 Serum or plasma phosphate measurement (mass/volume) 3.8 mg/dL 2.3-4.7 Magnesium - 07/02/18 03:25 Magnesium 1.9 mg/dL 1.8-2.4 Serum or plasma lithium measurement (mol es/volume) - 07/02/18 03:25 BNP level 748.3 pg/mL <100.0 Complete blood count (CBC) with automate d white blood cell (WBC) differential - 07/03/18 03:35 Blood leukocytes automated count (number/volume) 10.8 10*3/uL 4.3-11.0 Blood erythrocytes automated count (number/volume) 3.88 10*6/uL 4.35-5.85 Venous blood hemoglobin measurement (mass/volume) 8.9 g/dL 11.5-16.0 Blood hematocrit (volume fraction) 29 % 35-52 Automated erythrocyte mean corpuscular volume 75 [ foz_us] 80-99 Automated erythrocyte mean corpuscular h emoglobin (mass per erythrocyte) 23 pg 25-34 Automated erythrocyte mean corpuscular h emoglobin concentration measurement (mass/volume) 31 g/dL 32-36 Automated erythrocyte distribution width ratio 22. 0 % 10.0- 14.5 Automated blood platelet count (count/volume) 337 10*3/uL 130-400 Automated blood platelet mean volume measurement 9.1 [foz_us] 7.4-10.4 Automated blood neutrophils/100 leukocytes 65 % 42-75 Automated blood lymphocytes/100 leukocytes 27 % 12-44 Blood monocytes/100 leukocytes 7 % 0-12 Automated blood eosinophils/100 leukocytes 1 % 0-10 Automated blood basophils/100 leukocytes 1 % 0-10 Blood neutrophils automated count (number/volume) 7.1 10*3 1.8-7.8 Blood lymphocytes automated count (number/volume) 2.9 10*3 1.0-4.0 Blood monocytes automated count (number/volume) 0. 7 10*3 0.0-1.0 Automated eosinophil count 0.1 10*3/uL 0 .0-0.3 Automated blood basophil count (count/volume) 0.1 10*3/uL 0.0-0.1 PT panel in platelet poor plasma by coag ulation assay - 07/03/18 03:35 Prothrombin time (PT) in platelet poor plasma by coagu lation assay 23.4 s 12.2-14.7 INR in platelet poor plasma or blood by coagulation as say 2.1 0.8-1.4 Whole blood basic metabolic panel - 06/09 12/24 03:35 Serum or plasma sodium measurement (moles/volume) 137 mmol/L 135-145 Serum or plasma potassium measurement (moles/volume) 3.9 mmol/L 3.6-5.0 Serum or plasma chloride measurement (moles/volume) 106 mmol/L 98-107 Carbon dioxide 20 mmol/L 21-32 Serum or plasma anion gap determination (moles/volume) 11 mmol/L 5-14 Serum or plasma urea nitrogen measurement (mass/volume ) 19 mg/dL 7-18 Serum or plasma creatinine measurement (mass/volume) 0.89 mg/dL 0.60-1.30 Serum or plasma urea nitrogen/creatinine mass ratio 21 NRG Serum or plasma creatinine measurement w ith calculation of estimated glomerular filtration rate > NRG Serum or plasma glucose measurement (mass/volume) 115 mg/dL 70-105 Serum or plasma calcium measurement (mass/volume) 8.9 mg/dL 8.5-10.1 Serum or plasma phosphate measurement (m ass/volume) - 07/03/18 03:35 Serum or plasma phosphate measurement (mass/volume) 3.5 mg/dL 2.3-4.7 Magnesium - 07/03/18 03:35 Magnesium 2.1 mg/dL 1.8-2.4 Serum or plasma lithium measurement (mol es/volume) - 07/03/18 03:35 BNP level 946.3 pg/mL <100.0 PT panel in platelet poor plasma by coag ulation assay - 07/04/18 04:05 Prothrombin time (PT) in platelet poor plasma by coagu lation assay 24.7 s 12.2-14.7 INR in platelet poor plasma or blood by coagulation as say 2.2 0.8-1.4 Complete blood count (CBC) with automate d white blood cell (WBC) differential - 07/08/18 09:52 Blood leukocytes automated count (number/volume) 8.7 10*3/uL 4.3-11.0 Blood erythrocytes automated count (number/volume) 4.15 10*6/uL 4.35-5.85 Venous blood hemoglobin measurement (mass/volume) 9.3 g/dL 11.5-16.0 Blood hematocrit (volume fraction) 31 % 35-52 Automated erythrocyte mean corpuscular volume 75 [ foz_us] 80-99 Automated erythrocyte mean corpuscular h emoglobin (mass per erythrocyte) 22 pg 25-34 Automated erythrocyte mean corpuscular h emoglobin concentration measurement (mass/volume) 30 g/dL 32-36 Automated erythrocyte distribution width ratio 21. 6 % 10.0- 14.5 Automated blood platelet count (count/volume) 299 10*3/uL 130-400 Automated blood platelet mean volume measurement 9.7 [foz_us] 7.4-10.4 Automated blood neutrophils/100 leukocytes 65 % 42-75 Automated blood lymphocytes/100 leukocytes 27 % 12-44 Blood monocytes/100 leukocytes 7 % 0-12 Automated blood eosinophils/100 leukocytes 1 % 0-10 Automated blood basophils/100 leukocytes 1 % 0-10 Blood neutrophils automated count (number/volume) 5.7 10*3 1.8-7.8 Blood lymphocytes automated count (number/volume) 2.3 10*3 1.0-4.0 Blood monocytes automated count (number/volume) 0. 6 10*3 0.0-1.0 Automated eosinophil count 0.1 10*3/uL 0 .0-0.3 Automated blood basophil count (count/volume) 0.0 10*3/uL 0.0-0.1 Comprehensive metabolic panel - 07/08/18 09:52 Serum or plasma sodium measurement (moles/volume) 137 mmol/L 135-145 Serum or plasma potassium measurement (moles/volume) 4.1 mmol/L 3.6-5.0 Serum or plasma chloride measurement (moles/volume) 101 mmol/L 98-107 Carbon dioxide 19 mmol/L 21-32 Serum or plasma anion gap determination (moles/volume) 17 mmol/L 5-14 Serum or plasma urea nitrogen measurement (mass/volume ) 22 mg/dL 7-18 Serum or plasma creatinine measurement (mass/volume) 1.05 mg/dL 0.60-1.30 Serum or plasma urea nitrogen/creatinine mass ratio 21 NRG Serum or plasma creatinine measurement w ith calculation of estimated glomerular filtration rate 53 NRG Serum or plasma glucose measurement (mass/volume) 161 mg/dL 70-105 Serum or plasma calcium measurement (mass/volume) 9.2 mg/dL 8.5-10.1 Serum or plasma total bilirubin measurement (mass/volu me) 1.6 mg/dL 0.1-1.0 Serum or plasma alkaline phosphatase keith surement (enzymatic activity/volume) 158 U/L 40-136 Serum or plasma aspartate aminotransfera se measurement (enzymatic activity/volume) 30 U/L 5-34 Serum or plasma alanine aminotransferase measurement (enzymatic activity/volume) 15 U/L 0-55 Serum or plasma protein measurement (mass/volume) 7.7 g/dL 6.4-8.2 Serum or plasma albumin measurement (mass/volume) 4.4 g/dL 3.2-4.5 CALCIUM CORRECTED 8.9 mg/dL 8.5-10.1 Magnesium - 07/08/18 09:52 Magnesium 2.0 mg/dL 1.8-2.4 PT panel in platelet poor plasma by coag ulation assay - 07/08/18 09:52 Prothrombin time (PT) in platelet poor plasma by coagu lation assay 25.4 s 12.2-14.7 INR in platelet poor plasma or blood by coagulation as say 2.3 0.8-1.4 Activated partial thromboplastin time (a PTT) in platelet poor plasma bycoagulation assay - 07/08/18 09:52 Activated partial thromboplastin time (a PTT) in platelet poor plasma bycoagulation assay 38 s 24-35 Serum or plasma troponin i.cardiac measu rement (mass/volume) - 07/08/18 09:52 Serum or plasma troponin i.cardiac measurement (mass/v olume) < ng/mL <0.30 Myoglobin, serum - 07/08/18 09:52 Myoglobin, serum 34.8 ng/mL 10.0-92.0 Serum or plasma lithium measurement (mol es/volume) - 07/08/18 09:52 BNP level 619.4 pg/mL <100.0 Complete urinalysis with reflex to cultu re - 07/08/18 11:26 Urine color determination YELLOW NRG Urine clarity determination CLEAR NR G Urine pH measurement by test strip 5 5-9 Specific gravity of urine by test strip 1.015 1.016-1.022 Urine protein assay by test strip, semi-quantitative 1+ NEGATIVE Urine glucose detection by automated test strip NE GATIVE NEGATIVE Erythrocytes detection in urine sediment by light micr oscopy NEGATIVE NEGATIVE Urine ketones detection by automated test strip NE GATIVE NEGATIVE Urine nitrite detection by test strip NEGATIVE NEGATIVE Urine total bilirubin detection by test strip NEGA TIVE NEGATIVE Urine urobilinogen measurement by automated test strip (mass/volume) NORMAL NORMAL Urine leukocyte esterase detection by dipstick NEG ATIVE NEGATIVE Automated urine sediment erythrocyte cou nt by microscopy (number/high power field) NONE NRG Automated urine sediment leukocyte count by microscopy (number/high power field) NONE NRG Bacteria detection in urine sediment by light microsco py NEGATIVE NRG Squamous epithelial cells detection in u rine sediment by light microscopy 0-2 NRG Crystals detection in urine sediment by light microsco py NONE NRG Casts detection in urine sediment by light microscopy NONE NRG Mucus detection in urine sediment by light microscopy NEGATIVE NRG Complete urinalysis with reflex to culture NO NRG Whole blood basic metabolic panel - 03/27 09:46 Serum or plasma sodium measurement (moles/volume) 138 mmol/L 135-145 Serum or plasma potassium measurement (moles/volume) 5.0 mmol/L 3.6-5.0 Serum or plasma chloride measurement (moles/volume) 100 mmol/L 98-107 Carbon dioxide 26 mmol/L 21-32 Serum or plasma anion gap determination (moles/volume) 12 mmol/L 5-14 Serum or plasma urea nitrogen measurement (mass/volume ) 65 mg/dL 7-18 Serum or plasma creatinine measurement (mass/volume) 2.91 mg/dL 0.60-1.30 Serum or plasma urea nitrogen/creatinine mass ratio 22 NRG Serum or plasma creatinine measurement w ith calculation of estimated glomerular filtration rate 16 NRG Serum or plasma glucose measurement (mass/volume) 103 mg/dL 70-105 Serum or plasma calcium measurement (mass/volume) 9.2 mg/dL 8.5-10.1 THYROID STIMULATING HORMONE - 03/17/19 0 9:46 THYROID STIMULATING HORMONE 1.24 u[iU]/mL 0.35-4.94 Serum or plasma thyroxine (T4) free jody urement (mass/volume) - 03/17/19 09:46 Serum or plasma thyroxine (T4) free measurement (mass/ volume) 1.29 ng/dL 0.70-1.48 Complete urinalysis with reflex to cultu re - 04/14/19 19:30 Urine color determination YELLOW NRG Urine clarity determination CLEAR NR G Urine pH measurement by test strip 5 5-9 Specific gravity of urine by test strip 1.020 1.016-1.022 Urine protein assay by test strip, semi-quantitative 1+ NEGATIVE Urine glucose detection by automated test strip NE GATIVE NEGATIVE Erythrocytes detection in urine sediment by light micr oscopy NEGATIVE NEGATIVE Urine ketones detection by automated test strip NE GATIVE NEGATIVE Urine nitrite detection by test strip NEGATIVE NEGATIVE Urine total bilirubin detection by test strip NEGA TIVE NEGATIVE Urine urobilinogen measurement by automated test strip (mass/volume) NORMAL NORMAL Urine leukocyte esterase detection by dipstick NEG ATIVE NEGATIVE Automated urine sediment erythrocyte cou nt by microscopy (number/high power field) NONE NRG Automated urine sediment leukocyte count by microscopy (number/high power field) NONE NRG Bacteria detection in urine sediment by light microsco py TRACE NRG Squamous epithelial cells detection in u rine sediment by light microscopy 2-5 NRG Crystals detection in urine sediment by light microsco py NONE NRG Casts detection in urine sediment by light microscopy PRESENT NRG Mucus detection in urine sediment by light microscopy NEGATIVE NRG Complete urinalysis with reflex to culture NO NRG Hyaline casts detection in urine sediment by light kerline roscopy RARE NRG Complete blood count (CBC) with automate d white blood cell (WBC) differential - 04/14/19 19:42 Blood leukocytes automated count (number/volume) 12.3 10*3/uL 4.3-11.0 Blood erythrocytes automated count (number/volume) 3.76 10*6/uL 4.35-5.85 Venous blood hemoglobin measurement (mass/volume) 11.4 g/dL 11.5-16.0 Blood hematocrit (volume fraction) 35 % 35-52 Automated erythrocyte mean corpuscular volume 92 [ foz_us] 80-99 Automated erythrocyte mean corpuscular h emoglobin (mass per erythrocyte) 30 pg 25-34 Automated erythrocyte mean corpuscular h emoglobin concentration measurement (mass/volume) 33 g/dL 32-36 Automated erythrocyte distribution width ratio 13. 4 % 10.0- 14.5 Automated blood platelet count (count/volume) 339 10*3/uL 130-400 Automated blood platelet mean volume measurement 9.5 [foz_us] 7.4-10.4 Automated blood neutrophils/100 leukocytes 73 % 42-75 Automated blood lymphocytes/100 leukocytes 20 % 12-44 Blood monocytes/100 leukocytes 6 % 0-12 Automated blood eosinophils/100 leukocytes 1 % 0-10 Automated blood basophils/100 leukocytes 0 % 0-10 Blood neutrophils automated count (number/volume) 9.0 10*3 1.8-7.8 Blood lymphocytes automated count (number/volume) 2.4 10*3 1.0-4.0 Blood monocytes automated count (number/volume) 0. 7 10*3 0.0-1.0 Automated eosinophil count 0.1 10*3/uL 0 .0-0.3 Automated blood basophil count (count/volume) 0.0 10*3/uL 0.0-0.1 Blood lactic acid measurement (moles/vol ume) - 04/14/19 19:42 Blood lactic acid measurement (moles/volume) 0.89 mmol/L 0.50-2.00 Comprehensive metabolic panel - 04/14/19 19:42 Serum or plasma sodium measurement (moles/volume) 139 mmol/L 135-145 Serum or plasma potassium measurement (moles/volume) 3.8 mmol/L 3.6-5.0 Serum or plasma chloride measurement (moles/volume) 103 mmol/L 98-107 Carbon dioxide 22 mmol/L 21-32 Serum or plasma anion gap determination (moles/volume) 14 mmol/L 5-14 Serum or plasma urea nitrogen measurement (mass/volume ) 28 mg/dL 7-18 Serum or plasma creatinine measurement (mass/volume) 1.40 mg/dL 0.60-1.30 Serum or plasma urea nitrogen/creatinine mass ratio 20 NRG Serum or plasma creatinine measurement w ith calculation of estimated glomerular filtration rate 38 NRG Serum or plasma glucose measurement (mass/volume) 97 mg/dL 70-105 Serum or plasma calcium measurement (mass/volume) 9.3 mg/dL 8.5-10.1 Serum or plasma total bilirubin measurement (mass/volu me) 0.5 mg/dL 0.1-1.0 Serum or plasma alkaline phosphatase keith surement (enzymatic activity/volume) 112 U/L 40-136 Serum or plasma aspartate aminotransfera se measurement (enzymatic activity/volume) 27 U/L 5-34 Serum or plasma alanine aminotransferase measurement (enzymatic activity/volume) 37 U/L 0-55 Serum or plasma protein measurement (mass/volume) 8.2 g/dL 6.4-8.2 Serum or plasma albumin measurement (mass/volume) 4.5 g/dL 3.2-4.5 CALCIUM CORRECTED 8.9 mg/dL 8.5-10.1 Magnesium - 04/14/19 19:42 Magnesium 2.0 mg/dL 1.6-2.4 Serum or plasma amylase measurement (enz ymatic activity/volume) - 04/14/19 19:42 Serum or plasma amylase measurement (enzymatic activit y/volume) 45 U/L 25-125 Lipase - 04/14/19 19:42 Lipase 32 U/L 8-78 Bacterial blood culture - 04/14/19 19:42 Bacterial blood culture NG [facility] Bacterial blood culture - 04/14/19 19:59 Bacterial blood culture NG [facility] Complete blood count (CBC) with automate d white blood cell (WBC) differential - 04/15/19 05:59 Blood leukocytes automated count (number/volume) 9.1 10*3/uL 4.3-11.0 Blood erythrocytes automated count (number/volume) 3.18 10*6/uL 4.35-5.85 Venous blood hemoglobin measurement (mass/volume) 9.8 g/dL 11.5-16.0 Blood hematocrit (volume fraction) 30 % 35-52 Automated erythrocyte mean corpuscular volume 94 [ foz_us] 80-99 Automated erythrocyte mean corpuscular h emoglobin (mass per erythrocyte) 31 pg 25-34 Automated erythrocyte mean corpuscular h emoglobin concentration measurement (mass/volume) 33 g/dL 32-36 Automated erythrocyte distribution width ratio 13. 4 % 10.0- 14.5 Automated blood platelet count (count/volume) 218 10*3/uL 130-400 Automated blood platelet mean volume measurement 9.8 [foz_us] 7.4-10.4 Automated blood neutrophils/100 leukocytes 77 % 42-75 Automated blood lymphocytes/100 leukocytes 19 % 12-44 Blood monocytes/100 leukocytes 4 % 0-12 Automated blood eosinophils/100 leukocytes 0 % 0-10 Automated blood basophils/100 leukocytes 0 % 0-10 Blood neutrophils automated count (number/volume) 7.0 10*3 1.8-7.8 Blood lymphocytes automated count (number/volume) 1.7 10*3 1.0-4.0 Blood monocytes automated count (number/volume) 0. 4 10*3 0.0-1.0 Automated eosinophil count 0.0 10*3/uL 0 .0-0.3 Automated blood basophil count (count/volume) 0.0 10*3/uL 0.0-0.1 Comprehensive metabolic panel - 04/15/19 05:59 Serum or plasma sodium measurement (moles/volume) 139 mmol/L 135-145 Serum or plasma potassium measurement (moles/volume) 3.7 mmol/L 3.6-5.0 Serum or plasma chloride measurement (moles/volume) 107 mmol/L 98-107 Carbon dioxide 18 mmol/L 21-32 Serum or plasma anion gap determination (moles/volume) 14 mmol/L 5-14 Serum or plasma urea nitrogen measurement (mass/volume ) 28 mg/dL 7-18 Serum or plasma creatinine measurement (mass/volume) 1.53 mg/dL 0.60-1.30 Serum or plasma urea nitrogen/creatinine mass ratio 18 NRG Serum or plasma creatinine measurement w ith calculation of estimated glomerular filtration rate 34 NRG Serum or plasma glucose measurement (mass/volume) 145 mg/dL 70-105 Serum or plasma calcium measurement (mass/volume) 8.5 mg/dL 8.5-10.1 Serum or plasma total bilirubin measurement (mass/volu me) 0.5 mg/dL 0.1-1.0 Serum or plasma alkaline phosphatase keith surement (enzymatic activity/volume) 82 U/L 40-136 Serum or plasma aspartate aminotransfera se measurement (enzymatic activity/volume) 21 U/L 5-34 Serum or plasma alanine aminotransferase measurement (enzymatic activity/volume) 30 U/L 0-55 Serum or plasma protein measurement (mass/volume) 6.2 g/dL 6.4-8.2 Serum or plasma albumin measurement (mass/volume) 3.6 g/dL 3.2-4.5 CALCIUM CORRECTED 8.8 mg/dL 8.5-10.1 Serum or plasma lithium measurement (mol es/volume) - 04/15/19 13:34 BNP PT 315.2 pg/mL <100.0 PT panel in platelet poor plasma by coag ulation assay - 04/15/19 13:34 Prothrombin time (PT) in platelet poor plasma by coagu lation assay 32.8 s 12.2-14.7 INR in platelet poor plasma or blood by coagulation as say 3.0 0.8-1.4 Complete blood count (CBC) with automate d white blood cell (WBC) differential - 04/16/19 05:45 Blood leukocytes automated count (number/volume) 9.2 10*3/uL 4.3-11.0 Blood erythrocytes automated count (number/volume) 3.39 10*6/uL 4.35-5.85 Venous blood hemoglobin measurement (mass/volume) 10.3 g/dL 11.5-16.0 Blood hematocrit (volume fraction) 32 % 35-52 Automated erythrocyte mean corpuscular volume 94 [ foz_us] 80-99 Automated erythrocyte mean corpuscular h emoglobin (mass per erythrocyte) 30 pg 25-34 Automated erythrocyte mean corpuscular h emoglobin concentration measurement (mass/volume) 32 g/dL 32-36 Automated erythrocyte distribution width ratio 13. 4 % 10.0- 14.5 Automated blood platelet count (count/volume) 235 10*3/uL 130-400 Automated blood platelet mean volume measurement 9.7 [foz_us] 7.4-10.4 Automated blood neutrophils/100 leukocytes 79 % 42-75 Automated blood lymphocytes/100 leukocytes 15 % 12-44 Blood monocytes/100 leukocytes 6 % 0-12 Automated blood eosinophils/100 leukocytes 1 % 0-10 Automated blood basophils/100 leukocytes 0 % 0-10 Blood neutrophils automated count (number/volume) 7.2 10*3 1.8-7.8 Blood lymphocytes automated count (number/volume) 1.3 10*3 1.0-4.0 Blood monocytes automated count (number/volume) 0. 5 10*3 0.0-1.0 Automated eosinophil count 0.1 10*3/uL 0 .0-0.3 Automated blood basophil count (count/volume) 0.0 10*3/uL 0.0-0.1 PT panel in platelet poor plasma by coag ulation assay - 04/16/19 05:45 Prothrombin time (PT) in platelet poor plasma by coagu lation assay 38.4 s 12.2-14.7 INR in platelet poor plasma or blood by coagulation as say 3.7 0.8-1.4 Comprehensive metabolic panel - 04/16/19 05:45 Serum or plasma sodium measurement (moles/volume) 139 mmol/L 135-145 Serum or plasma potassium measurement (moles/volume) 3.8 mmol/L 3.6-5.0 Serum or plasma chloride measurement (moles/volume) 108 mmol/L 98-107 Carbon dioxide 20 mmol/L 21-32 Serum or plasma anion gap determination (moles/volume) 11 mmol/L 5-14 Serum or plasma urea nitrogen measurement (mass/volume ) 16 mg/dL 7-18 Serum or plasma creatinine measurement (mass/volume) 1.29 mg/dL 0.60-1.30 Serum or plasma urea nitrogen/creatinine mass ratio 12 NRG Serum or plasma creatinine measurement w ith calculation of estimated glomerular filtration rate 41 NRG Serum or plasma glucose measurement (mass/volume) 124 mg/dL 70-105 Serum or plasma calcium measurement (mass/volume) 8.8 mg/dL 8.5-10.1 Serum or plasma total bilirubin measurement (mass/volu me) 0.8 mg/dL 0.1-1.0 Serum or plasma alkaline phosphatase keith surement (enzymatic activity/volume) 83 U/L 40-136 Serum or plasma aspartate aminotransfera se measurement (enzymatic activity/volume) 23 U/L 5-34 Serum or plasma alanine aminotransferase measurement (enzymatic activity/volume) 28 U/L 0-55 Serum or plasma protein measurement (mass/volume) 6.6 g/dL 6.4-8.2 Serum or plasma albumin measurement (mass/volume) 3.9 g/dL 3.2-4.5 CALCIUM CORRECTED 8.9 mg/dL 8.5-10.1 Complete blood count (CBC) with automate d white blood cell (WBC) differential - 04/17/19 04:35 Blood leukocytes automated count (number/volume) 9.1 10*3/uL 4.3-11.0 Blood erythrocytes automated count (number/volume) 3.18 10*6/uL 4.35-5.85 Venous blood hemoglobin measurement (mass/volume) 9.6 g/dL 11.5-16.0 Blood hematocrit (volume fraction) 30 % 35-52 Automated erythrocyte mean corpuscular volume 94 [ foz_us] 80-99 Automated erythrocyte mean corpuscular h emoglobin (mass per erythrocyte) 30 pg 25-34 Automated erythrocyte mean corpuscular h emoglobin concentration measurement (mass/volume) 32 g/dL 32-36 Automated erythrocyte distribution width ratio 13. 4 % 10.0- 14.5 Automated blood platelet count (count/volume) 232 10*3/uL 130-400 Automated blood platelet mean volume measurement 9.9 [foz_us] 7.4-10.4 Automated blood neutrophils/100 leukocytes 67 % 42-75 Automated blood lymphocytes/100 leukocytes 23 % 12-44 Blood monocytes/100 leukocytes 8 % 0-12 Automated blood eosinophils/100 leukocytes 2 % 0-10 Automated blood basophils/100 leukocytes 0 % 0-10 Blood neutrophils automated count (number/volume) 6.1 10*3 1.8-7.8 Blood lymphocytes automated count (number/volume) 2.1 10*3 1.0-4.0 Blood monocytes automated count (number/volume) 0. 8 10*3 0.0-1.0 Automated eosinophil count 0.1 10*3/uL 0 .0-0.3 Automated blood basophil count (count/volume) 0.0 10*3/uL 0.0-0.1 PT panel in platelet poor plasma by coag ulation assay - 04/17/19 04:35 Prothrombin time (PT) in platelet poor plasma by coagu lation assay 36.8 s 12.2-14.7 INR in platelet poor plasma or blood by coagulation as say 3.5 0.8-1.4 Comprehensive metabolic panel - 04/17/19 04:35 Serum or plasma sodium measurement (moles/volume) 139 mmol/L 135-145 Serum or plasma potassium measurement (moles/volume) 3.4 mmol/L 3.6-5.0 Serum or plasma chloride measurement (moles/volume) 107 mmol/L 98-107 Carbon dioxide 20 mmol/L 21-32 Serum or plasma anion gap determination (moles/volume) 12 mmol/L 5-14 Serum or plasma urea nitrogen measurement (mass/volume ) 14 mg/dL 7-18 Serum or plasma creatinine measurement (mass/volume) 1.12 mg/dL 0.60-1.30 Serum or plasma urea nitrogen/creatinine mass ratio 13 NRG Serum or plasma creatinine measurement w ith calculation of estimated glomerular filtration rate 49 NRG Serum or plasma glucose measurement (mass/volume) 96 mg/dL 70-105 Serum or plasma calcium measurement (mass/volume) 8.4 mg/dL 8.5-10.1 Serum or plasma total bilirubin measurement (mass/volu me) 0.6 mg/dL 0.1-1.0 Serum or plasma alkaline phosphatase keith surement (enzymatic activity/volume) 71 U/L 40-136 Serum or plasma aspartate aminotransfera se measurement (enzymatic activity/volume) 18 U/L 5-34 Serum or plasma alanine aminotransferase measurement (enzymatic activity/volume) 21 U/L 0-55 Serum or plasma protein measurement (mass/volume) 6.2 g/dL 6.4-8.2 Serum or plasma albumin measurement (mass/volume) 3.6 g/dL 3.2-4.5 CALCIUM CORRECTED 8.7 mg/dL 8.5-10.1 Clostridium difficile DNA detection by p robe and target amplification method - 04/17/19 06:27 C DIFF MOLECULAR RESULT Positive for toxigen ic C diff by molecular method NRG FREE TEXT ENTRY 2 16:30 BY Janice COVINGTON NR FREE TEXT ENTRY CALLED TO MARTINEZ CHOPRA RN 9 NRG Clostridium difficile DNA detection by p robe and target amplification method Positive NRG C DIFFICILE AG + TOXIN A/B. - 04/17/19 0 6:27 FREE TEXT ENTRY 2 POSITIVE FOR GDH ANTIGEN NRG FREE TEXT ENTRY 3 NEGATIVE FOR TOXINS A AND B NRG CALL POSITIVES (F1 HELP) CALLED TO MARTINEZ WHITE RN 04/17/19 8:[address] [facility] RESULTS INDETERMINANT; MOLECULAR TEST TO FOLLOW NR Stool bacteria identification by culture - 04/17/19 06:27 PT panel in platelet poor plasma by coag ulation assay - 04/18/19 05:17 Prothrombin time (PT) in platelet poor plasma by coagu lation assay 30.9 s 12.2-14.7 INR in platelet poor plasma or blood by coagulation as say 2.8 0.8-1.4 Complete blood count (CBC) with automate d white blood cell (WBC) differential - 04/18/19 05:17 Blood leukocytes automated count (number/volume) 10.3 10*3/uL 4.3-11.0 Blood erythrocytes automated count (number/volume) 3.38 10*6/uL 4.35-5.85 Venous blood hemoglobin measurement (mass/volume) 10.2 g/dL 11.5-16.0 Blood hematocrit (volume fraction) 32 % 35-52 Automated erythrocyte mean corpuscular volume 94 [ foz_us] 80-99 Automated erythrocyte mean corpuscular h emoglobin (mass per erythrocyte) 30 pg 25-34 Automated erythrocyte mean corpuscular h emoglobin concentration measurement (mass/volume) 32 g/dL 32-36 Automated erythrocyte distribution width ratio 13. 6 % 10.0- 14.5 Automated blood platelet count (count/volume) 256 10*3/uL 130-400 Automated blood platelet mean volume measurement 9.9 [foz_us] 7.4-10.4 Automated blood neutrophils/100 leukocytes 71 % 42-75 Automated blood lymphocytes/100 leukocytes 20 % 12-44 Blood monocytes/100 leukocytes 7 % 0-12 Automated blood eosinophils/100 leukocytes 2 % 0-10 Automated blood basophils/100 leukocytes 0 % 0-10 Blood neutrophils automated count (number/volume) 7.3 10*3 1.8-7.8 Blood lymphocytes automated count (number/volume) 2.1 10*3 1.0-4.0 Blood monocytes automated count (number/volume) 0. 7 10*3 0.0-1.0 Automated eosinophil count 0.2 10*3/uL 0 .0-0.3 Automated blood basophil count (count/volume) 0.0 10*3/uL 0.0-0.1 Comprehensive metabolic panel - 04/18/19 05:17 Serum or plasma sodium measurement (moles/volume) 140 mmol/L 135-145 Serum or plasma potassium measurement (moles/volume) 3.4 mmol/L 3.6-5.0 Serum or plasma chloride measurement (moles/volume) 106 mmol/L 98-107 Carbon dioxide 21 mmol/L 21-32 Serum or plasma anion gap determination (moles/volume) 13 mmol/L 5-14 Serum or plasma urea nitrogen measurement (mass/volume ) 12 mg/dL 7-18 Serum or plasma creatinine measurement (mass/volume) 1.06 mg/dL 0.60-1.30 Serum or plasma urea nitrogen/creatinine mass ratio 11 NRG Serum or plasma creatinine measurement w ith calculation of estimated glomerular filtration rate 52 NRG Serum or plasma glucose measurement (mass/volume) 107 mg/dL 70-105 Serum or plasma calcium measurement (mass/volume) 8.7 mg/dL 8.5-10.1 Serum or plasma total bilirubin measurement (mass/volu me) 0.6 mg/dL 0.1-1.0 Serum or plasma alkaline phosphatase keith surement (enzymatic activity/volume) 89 U/L 40-136 Serum or plasma aspartate aminotransfera se measurement (enzymatic activity/volume) 20 U/L 5-34 Serum or plasma alanine aminotransferase measurement (enzymatic activity/volume) 24 U/L 0-55 Serum or plasma protein measurement (mass/volume) 6.9 g/dL 6.4-8.2 Serum or plasma albumin measurement (mass/volume) 4.2 g/dL 3.2-4.5 CALCIUM CORRECTED 8.5 mg/dL 8.5-10.1 Encounters ACCT No. Visit Date/Time Discharge Status Pt. Type Provider Facility Loc./Unit Complaint [id number] 07/14/2019 11:46:48 07/14/2019 23:59:5 9 CLS Outpatient [id number] 02/05/2020 12:38:00 23:59:59 CLS Outpatient JALYN DAILY DO [facility] RAD R FOOT PAIN AND SWELLING,HX CLOTS [id number] 10/03/2019 14:31:00 020 23:59:59 [facility] Outpatient JALYN DAILY DO [facility] LABNPT I48.2,I10 [id number] 04/24/2019 14:47:00 019 23:59:59 [facility] Outpatient JALYN DAILY DO [facility] RAD SCREENING [id number] 04/14/2019 21:00:00 11:10:00 DIS Inpatient THALIA DAILY DOQUELINE S [facility] 4TH DIVERTICULITIS- FAILURE OF OUTPATIENT TREATMENT [id number] 03/27/2019 15:00:00 23:59:59 CLS Outpatient AVASHERRI ALEJANDROON R [employer] [facility] RAD LLQ ABD PAIN [id number] 03/17/2019 09:00:00 23:59:59 CLS Outpatient JOYCE BOLTON MD [facility] LAB DILATED CARDIOM YOPATHY [id number] 03/17/2019 08:57:00 23:59:59 CLS Outpatient DION VANESSARASHMI [facility] LAB K74.60 [id number] 03/17/2019 08:54:00 23:59:59 CLS Outpatient DAHPNE VANESSAJALYN S [facility] RAD LIVER CIRRHOSIS [id number] 12/27/2018 12:31:00 23:59:59 CLS Outpatient AVA, BHAVNA R [employer] [facility] RAD LOW BACK PAIN [id number] 12/27/2018 08:51:00 23:59:59 CLS Preadmit DYLAN JEFFERYYSON R [employer]ER [facility] RAD BACK PAIN [id number] 12/27/2018 04:20:00 05:00:00 DIS Emergency ZURI OCHOA MD [facility] ER BACK PAIN [id number] 12/25/2018 12:49:00 23:59:59 CLS Outpatient SHERRI JEFFERYON R [employer] [facility] RAD LOW BACK PAIN [id number] 07/08/2018 09:33:00 14:20:00 DIS Emergency KWAME QUEEN MD [facility] ER SOB [id number] 06/30/2018 18:10:00 14:30:00 DIS Inpatient POLLACK , ELLIS [facility] 4TH A-FIB,RVR,CHF [id number] 06/13/2018 08:57:00 23:59:59 CLS Outpatient MARICRUZ VINES [facility] CARD A-FIB,TAYL[place],H [place],SOB [id number] 06/07/2018 07:05:00 10:39:00 DIS Outpatient Breanne RANGEL MD [facility] CATH A-FIB [id number] 04/25/2018 08:08:00 14:22:00 DIS Outpatient Breanne RANGEL MD [facility] CATH CARDIOMYOPATHY [id number] 04/17/2018 17:30:00 13:30:00 DIS Inpatient JALYN DAILY DO S [facility] 4TH FLUID OVERLOAD [id number] 04/17/2018 10:42:00 23:59:59 CLS Outpatient BHAVNA JEFFERY [employer] [facility] RAD ABD PAIN/SWELLI NG [id number] 04/12/2018 10:29:00 23:59:59 CLS Outpatient JALYN DAILY DO [facility] RAD SCREENING [id number] 03/15/2018 11:51:00 14:46:00 DIS Emergency ZIYAD BUNN [employer] [facility] ER AMS [id number] 03/13/2018 06:34:00 10:25:00 DIS Outpatient VÍCTOR ZARATE MD [facility] SDC BLADDER TUMOR [id number] 03/11/2018 09:30:00 23:59:59 CLS Preadmit RITO NGUYEN [employer] [facility] PULM J98.4 RESTRICIT VE LUNG DISEASES [id number] 12/10/2017 09:05:00 09/02/2 018 00:01:00 DIS Outpatient RITO NGUYEN [employer] [facility] PULM J98.4 RESTRICIT VE LUNG DISEASES [id number] 03/06/2018 05:48:00 018 09:59:00 DIS Outpatient VÍCTOR ZARATE MD [facility] PREOP BLADDER TUMOR [id number] 02/26/2018 10:16:00 018 23:59:59 CLS Preadmit ORENDER , JALYN S [facility] RAD SCREENING [id number] 02/04/2018 07:49:00 018 23:59:59 CLS Outpatient BHAVNA JEFFERY [employer] [facility] RAD FATTY LIVER [id number] 01/11/2018 11:08:00 018 11:50:00 DIS Inpatient JAKI VANESSA, ELLIS [facility] 4TH SWB UTI,SEVERE SEPSIS,L IVER DISFUNCTION [id number] 01/07/2018 08:15:00 018 10:59:00 DIS Inpatient JERROD KUMARI, MARCO A Avilez [facility] 4TH UTI,SEVERE SEPSIS,LIVER DISFUNCTION [id number] 11/13/2017 10:11:00 018 23:59:59 CLS Outpatient RITO NGUYEN [employer] [facility] LAB J98.4 [id number] 11/07/2017 11:45:00 018 23:59:59 CLS Preadmit RITO NGUYEN [employer] [facility] RT FSA [id number] 11/07/2017 10:10:00 018 23:59:59 CLS Outpatient RITO NGUYEN [employer] [facility] RAD R06.09 TAYLOR [id number] 10/19/2017 09:16:00 018 23:59:59 CLS Outpatient HORTENSIA KLINE MD [facility] RT TYPICAL ATRIAL FLUTTER [id number] 09/25/2017 11:37:00 018 23:59:59 CLS Outpatient FRANCIS KUMARI, DEYA R [facility] RAD ACUTE GENERALIZED ABD P AIN [id number] 09/12/2017 06:54:00 018 13:44:00 DIS Outpatient ELISE RIDER MD [facility] ABNORMAL STREES TEST,CP ,CAD [id number] 09/03/2017 08:13:00 018 23:59:59 CLS Outpatient MARICRUZ VINES [facility] CARD I48.0 ATRIA L FIBRILLATION [id number] 08/29/2017 08:33:00 018 23:59:59 CLS Outpatient MARICRUZ VINES [facility] RAD I48.0 ATRIA L FIBRILLATION [id number] 07/07/2017 11:25:00 017 23:59:59 CLS Outpatient TAHIR HERNANDEZ PSYCHOLOGY ASSOCIATE-C [facility] LAB HEMATURIA [id number] 02/22/2017 10:52:00 017 23:59:59 CLS Outpatient COLTHCATHIE HESTER DO A [facility] RAD SCREENING [id number] 02/21/2017 07:36:00 017 23:59:59 CLS Outpatient ELISE RIDER MD [facility] CATH AFIB,HTN,SOB [id number] 01/26/2017 11:24:00 017 13:25:00 DIS Outpatient SHAYNA DHILLON MD [facility] ENDO HISTORY COLITIS, POLYPS [id number] 01/24/2017 05:38:00 017 12:51:00 DIS Outpatient SHAYNA DHILLON MD [facility] PREOP HX COLITIS/POLYPS [id number] 12/08/2016 11:44:00 017 11:30:00 DIS Inpatient ELLIS POLLACK DO, V [facility] 4TH C-DIFF COLITIS,ABDOMINA L PAIN [id number] 11/07/2016 19:15:00 10:25:00 DIS Outpatient ELISE RIDER MD [facility] AFIB [id number] 10/31/2016 14:07:00 017 16:57:00 DIS Emergency JOYCE KIM DO [facility] ER IRR HEART RATE [id number] 10/04/2016 11:09:00 17:45:00 DIS Outpatient ELISE RIDER MD [facility] AFIB,.HTN,CAD [id number] 02/07/2016 08:37:00 016 23:59:59 CLS Outpatient MARICRUZ VINES [facility] CARD A FIB,HTN,H LP,HSVT [id number] 02/04/2016 09:01:00 016 23:59:59 CLS Outpatient ELISE RIDER MD [facility] AFIB,DYSPNEA,HTN [id number] 11/15/2015 14:42:00 016 23:59:59 CLS Outpatient DEYA BLANCO MD [facility] RAD SCREENING [id number] 02/05/2015 10:53:00 015 00:01:00 DIS Outpatient HORTENSIA KLINE MD [facility] CARD PAF [id number] 02/04/2015 13:55:00 015 23:59:59 CLS Outpatient YULI SAMPSON DC [facility] RAD THORACIC PAIN [id number] 11/13/2014 10:22:00 015 23:59:59 CLS Outpatient DEYA BLANCO MD [facility] RAD SCREENING [id number] 05/13/2014 08:37:00 014 15:00:00 DIS Outpatient ELISE RIDER MD [facility] AFIB,DYSPNEA,HTN,HLP [id number] 03/18/2014 07:57:00 014 23:59:59 CLS Outpatient DEYA BLANCO MD [facility] RAD GASTROINTESTIONAL UPSET ABDOMINAL PAIN [id number] 01/06/2014 09:50:00 23:59:59 CLS Outpatient MARICRUZ VINES [facility] CARD HTN,PVC [id number] 08/15/2013 10:08:00 00:01:00 DIS Outpatient MARICRUZ VINES [facility] CARD HTN,HLP,PAL P [id number] 11/11/2013 14:18:00 23:59:59 CLS Outpatient DEYA BLANCO MD [facility] RAD SCREENING [id number] 08/20/2013 08:46:00 23:59:59 CLS Outpatient ADRY KUMARI, ELISE Sosa [facility] CATH ABNORMAL STRESS, HTN,SOB,HLP,PALPITAIONS,OBESITY [id number] 08/18/2013 07:26:00 23:59:59 CLS Outpatient MARICRUZ VINES [facility] RAD HTN,HLP,PAL P [id number] 05/27/2013 12:01:00 16:05:00 DIS Outpatient SARAI TOBIAS DO [facility] SDC HISTORY DIVERTICULITIS [id number] 05/21/2013 09:30:00 23:59:59 CLS Outpatient SARAI TOBIAS DO [facility] PREOP HISTORY OF DIVERTICULIT ITS [id number] 03/17/2013 12:02:00 13:35:00 DIS Inpatient DEYA BLANCO MD [facility] 4TH DIVERTICULITIS [id number] 11/18/2012 16:15:00 23:59:59 CLS Outpatient DEYA BLANCO MD [facility] RAD R HIP PAIN [id number] 02/10/2020 12:48:[address] Emergency BRENDA FOSTER [facility] ER NAUSEA;VOMITING;ABNORMAL LAB RESULTS [id number] 02/10/2020 07:47:[address] Outpatient BHAVNA JEFFERY APRN [facility] RAD PAIN IN RIGHT FOOT [id number] 02/22/2018 07:31:00 Document Registration [id number] 03/24/2014 12:01:00 Document Registration [id number] 11/14/2013 10:00:00 Document Registration [id number] 10/15/2012 09:41:00 Document Registration [id number] 03/29/2012 15:37:00 Document Registration [id number] 03/01/2012 08:29:00 Document Registration [id number] 03/03/2011 14:09:00 Document Registration [id number] 12/26/2010 05:40:00 Document Registration [id number] 12/22/2010 15:38:00 Document Registration
--- NOTE | 2020-02-10 14:19 | ED Abdominal Pain ---
General Chief Complaint: Abdominal/GI Problems Stated Complaint: NAUSEA;VOMITING;ABNORMAL LAB RESULTS Nursing Triage Note: PT CO OF ABD PAIN LOWER L ABD. PT CO OF LOW HBG. WEAKNESS Sepsis Screen: No Definite Risk Source of Information: Patient Exam Limitations: No Limitations History of Present Illness Date Seen by Provider: Feb 10, 2020 Time Seen by Provider: 13:15 Initial Comments 69-year-old female who presents to the emergency room with complaints of left lower abdominal pain, low hemoglobin, noticing blood in her underwear when she woke this morning, generalized weakness. She has been treated outpatient for recent diverticulitis and a UTI by Dr. SERNA. She had lab work this morning and Dr. SERNA sent her to the emergency room for concerns for low hemoglobin. Timing/Duration: 2-3 Days Associated Symptoms: Weakness Allergies and Home Medications Allergies Coded Allergies: rosuvastatin (Unverified Allergy, Mild, 03/06/18) sacubitril (Verified Allergy, Mild, RASH, 07/01/18) PATIENT HAS ITCHING FROM MEDICATION valsartan (Verified Allergy, Mild, RASH, 07/01/18) PATIENT HAS ITCHING FROM MEDICATION Sulfa (Sulfonamide Antibiotics) (Verified Allergy, Unknown, 03/06/18) fentanyl (Verified Adverse Reaction, Unknown, Vomiting, 04/14/19) Home Medications Acetaminophen 500 Mg Tablet, 500-1,000 MG PO Q6H PRN for PAIN-MILD, (Reported) Amiodarone HCl 200 Mg Tablet, 200 MG PO DAILY, (Reported) Bumetanide 1 Mg Tablet, 1 MG PO 0900,1800, (Reported) Carvedilol 6.25 Mg Tablet, 6.25 MG PO 0900,1800, (Reported) Colestipol HCl 1 Gm Tablet, 1 GM PO 1200,2000, (Reported) Lactobacillus Acidophilus/Pect 1 Each Capsule, 2 EACH PO TIDWM Prescribed by: FARHAT SERNA on 04/18/19 1012 Levothyroxine Sodium 25 Mcg Tablet, 25 MCG PO DAILY, (Reported) Losartan Potassium 25 Mg Tablet, 25 MG PO DAILY, (Reported) Ondansetron HCl 4 Mg Tablet, 4 MG PO Q4H Prescribed by: FARHAT SERNA on 04/18/19 1018 Pantoprazole Sodium 40 Mg Tablet.dr, 40 MG PO DAILY, (Reported) Pantoprazole Sodium 40 Mg Tablet.dr, 40 MG PO 1800 PRN for HEARTBURN, (Reported) Potassium Chloride 8 Meq Capsule.er, 8 MEQ PO DAILY@0700 Prescribed by: FARHAT SERNA on 04/18/19 1012 Spironolactone 25 Mg Tablet, 25 MG PO 0900,1800, (Reported) Temazepam 15 Mg Capsule, 15-30 MG PO HS PRN for SLEEP, (Reported) Warfarin Sodium 5 Mg Tablet, 5 MG PO TuFr, (Reported) Warfarin Sodium 5 Mg Tablet, 2.5 MG PO SuMoWeThSa, (Reported) TAKES 1/2 (5MG) TABLET [Vancomycin Oral Suspension] 60 ML SOLN, 2.5 ML PO Q6H Prescribed by: FARHAT SERNA on 04/18/19 1012 Patient Home Medication List Home Medication List Reviewed: Yes Review of Systems Review of Systems Constitutional: no symptoms reported, see HPI; No chills, No dizziness; wea kness Gastrointestinal: See HPI, Abdominal Pain, Rectal Bleeding All Other Systems Reviewed Negative Unless Noted: Yes Past Uwnyhdk-Lhzxxx-Pusaaa Hx Past Med/Social Hx: Reviewed Nursing Past Med/Soc Hx Patient Social History Alcohol Use: Denies Use Number of Drinks Today: II Alcohol Beverage of Choice: Wine, Other Recreational Drug Use: No Smoking Status: Never a Smoker 2nd Hand Smoke Exposure: Yes Recent Foreign Travel: No Contact w/Someone Who Travel: No Recent Infectious Disease Expo: No Recent Hopitalizations: No (JANUARY 2018-GALLBLADDER X 1 WEEK) Physical Abuse: No Sexual Abuse: No Immunizations Up To Date Tetanus Booster (TDap): Less than 5yrs PED Vaccines UTD: No Date of Pneumonia Vaccine: Apr 26, 2018 Date of Influenza Vaccine: Mar 27, 2019 Seasonal Allergies Seasonal Allergies: No Past Medical History Surgeries: Yes Bladder Surgery, Breast, Cardiac, Defibrillator, Gallbladder, Hysterectomy, Oophorectomy, Pacemaker Respiratory: Yes Sleep Apnea Currently Using CPAP: Yes (at night) Currently Using BIPAP: No Cardiac: Yes Atrial Fibrillation, Cardiomyopathy, Coronary Artery Disease, Hypertension, Irregular Heartbeat, Valvular Heart Disease Neurological: No Reproductive Disorders: No (X1 MISCARRIAGE) 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 ELLIOT) UTI-Chronic Gastrointestinal: Yes Gastroesophageal Reflux, Liver Disease/Jaundice, Diverticulosis, Polyps, C-Diff Musculoskeletal: Yes Chronic Back Pain Endocrine: No HEENT: Yes (left eye problem with vision) Loss of Vision: Bilateral Hearing Impairment: Denies Cancer: No Psychosocial: Yes Anxiety, Depression Integumentary: No Blood Disorders: No Adverse Reaction/Blood Tranf: No (HAS HAD BLOOD WITH NO REACTIION) Family Medical History Reviewed Nursing Family Hx Heart Disease, CAD Under 55 Years Old Physical Exam Vital Signs Vital Signs - First Documented 02/10/20 12:55 Temp 36.3 Pulse 71 Resp 18 B/P (MAP) 104/50 (68) Pulse Ox 98 Capillary Refill : Less Than 3 Seconds Height/Weight/BMI Height: 4'11.00" Weight: 130lbs. 14.4oz. 58.724401kw; 29.00 BMI Method:Stated General Appearance: WD/WN, no apparent distress Respiratory: chest non-tender, lungs clear, normal breath sounds, no respiratory distress, no accessory muscle use Cardiovascular: normal peripheral pulses, regular rate, rhythm, no edema, no gallop, no JVD, no murmur Gastrointestinal: normal bowel sounds, soft, no organomegaly, no pulsatile mass, tenderness (left lower quadrant tenderness) Extremities: normal capillary refill Neurologic/Psychiatric: alert, normal mood/affect, oriented x 3 Skin: normal color, warm/dry Procedures/Interventions Date of ETT Placement: Jan 07, 2018 Progress/Results/Core Measures Results/Orders Lab Results Laboratory Tests Test 02/10/20 13:05 02/10/20 13:25 Range/Units White Blood Count 13.8 H 4.3-11.0 10^3/uL Red Blood Count 4.26 L 4.35-5.85 10^6/uL Hemoglobin 12.2 11.5-16.0 G/DL Hematocrit 37 35-52 % Mean Corpuscular Volume 88 80-99 FL Mean Corpuscular Hemoglobin 29 25-34 PG Mean Corpuscular Hemoglobin Concent 33 32-36 G/DL Red Cell Distribution Width 14.2 10.0-14.5 % Platelet Count 358 130-400 10^3/uL Mean Platelet Volume 9.1 7.4-10.4 FL Neutrophils (%) (Auto) 80 H 42-75 % Lymphocytes (%) (Auto) 12 12-44 % Monocytes (%) (Auto) 8 0-12 % Eosinophils (%) (Auto) 0 0-10 % Basophils (%) (Auto) 0 0-10 % Neutrophils # (Auto) 11.0 H 1.8-7.8 X 10^3 Lymphocytes # (Auto) 1.7 1.0-4.0 X 10^3 Monocytes # (Auto) 1.0 0.0-1.0 X 10^3 Eosinophils # (Auto) 0.1 0.0-0.3 10^3/uL Basophils # (Auto) 0.0 0.0-0.1 10^3/uL Prothrombin Time 59.6 *H 12.2-14.7 SEC INR Comment 6.9 *H 0.8-1.4 Activated Partial Thromboplast Time 70 H 24-35 SEC Sodium Level 137 135-145 MMOL/L Potassium Level 4.0 3.6-5.0 MMOL/L Chloride Level 101 98-107 MMOL/L Carbon Dioxide Level 24 21-32 MMOL/L Anion Gap 12 5-14 MMOL/L Blood Urea Nitrogen 42 H 7-18 MG/DL Creatinine 1.74 H 0.60-1.30 MG/DL Estimat Glomerular Filtration Rate 29 BUN/Creatinine Ratio 24 Glucose Level 133 H 70-105 MG/DL Calcium Level 8.4 L 8.5-10.1 MG/DL Corrected Calcium 8.4 L 8.5-10.1 MG/DL Total Bilirubin 0.5 0.1-1.0 MG/DL Aspartate Amino Transf (AST/SGOT) 29 5-34 U/L Alanine Aminotransferase (ALT/SGPT) 121 H 0-55 U/L Alkaline Phosphatase 136 40-136 U/L Total Protein 7.0 6.4-8.2 GM/DL Albumin 4.0 3.2-4.5 GM/DL Urine Color YELLOW Urine Clarity CLEAR Urine pH 5.5 5-9 Urine Specific [place] 1.010 L 1.016-1.022 Urine Protein NEGATIVE NEGATIVE Urine Glucose (UA) NEGATIVE NEGATIVE Urine Ketones NEGATIVE NEGATIVE Urine Nitrite NEGATIVE NEGATIVE Urine Bilirubin NEGATIVE NEGATIVE Urine Urobilinogen 0.2 < = 1.0 MG/DL Urine Leukocyte Esterase 1+ H NEGATIVE Urine RBC (Auto) NEGATIVE NEGATIVE Urine RBC RARE /HPF Urine WBC 2-5 /HPF Urine Squamous Epithelial Cells RARE /HPF Urine Crystals NONE /LPF Urine Bacteria TRACE /HPF Urine Casts NONE /LPF Urine Mucus NEGATIVE /LPF Urine Culture Indicated YES My Orders Orders - BRENDA FOSTER Comprehensive Metabolic Panel (02/10/20 13:04) Ua Culture If Indicated (02/10/20 13:04) Ed Iv/Invasive Line Start (02/10/20 13:04) Cbc With Automated Diff (02/10/20 13:04) Type And Screen (02/10/20 13:04) Ondansetron Injection (Zofran Injectio (02/10/20 13:45) Urine Culture (02/10/20 13:25) Protime With Inr (02/10/20 13:46) Partial Thromboplastin Time (02/10/20 13:46) Ct Abdomen/Pelvis Wo (02/10/20 13:46) Ns Iv 1000 Ml (Sodium Chloride 0.9%) (02/10/20 15:15) Vital Signs/I&O 02/10/20 12:55 Temp 36.3 Pulse 71 Resp 18 B/P (MAP) 104/50 (68) Pulse Ox 98 Blood Pressure Mean: 68 Departure Communication (Admissions) Time/Spoke to Admitting Phy: 14:56 I have discussed the case with Dr. SERNA and she recommends giving the patient 2 units of fresh frozen plasma and repeating labs the morning. She requests to run normal saline at 100 ML's per hour. Patient agrees with plans for admission. Impression Primary Impression: Elevated partial thromboplastin time (PTT) Additional Impression: Elevated INR Disposition: ADMITTED INPATIENT Condition: Stable/Unchanged Admissions Decision to Admit Reason: Admit from ER (General) Decision to Admit/Date: Feb 10, 2020 Time/Decision to Admit Time: 15:10 Departure-Patient Inst. Referrals: FARHAT SERNA DO (PCP/Family) Primary Care Physician BRENDA FOSTER Feb 10, 2020 14:19
--- NOTE | 2020-02-10 14:29 | Diagnostic Imaging Report ---
PROCEDURE: CT abdomen and pelvis without contrast. TECHNIQUE: Multiple contiguous axial images were obtained through the abdomen and pelvis without the use of intravenous contrast. Auto Exposure Controls were utilized during the CT exam to meet ALARA standards for radiation dose reduction. INDICATION: Abdominal pain, nausea, vomiting and diverticulitis. Compared with study 04/14/2019. There is severe sigmoid diverticulosis but no convincing evidence of active or acute diverticulitis. No abscess, obstruction or perforation. The appendix visualized and normal. The urinary bladder unremarkable. There is no urinary tract obstruction. No acute hepatobiliary splenic, pancreatic or adrenal abnormality. The gallbladder is surgically absent. The aorta is nonaneurysmal. IMPRESSION: Sigmoid diverticulosis without evidence for acute diverticulitis. Unobstructed urinary tracts. Negative appendix. No acute appearing abnormality identified. Dictated by: Dictated on workstation # [id number]
[2020-02-10] MEDS ORDERED: NS IV 1000 ML 1,000 ML IV SCH (15:15)
[2020-02-10 16:00] VITALS: BP 116/74
[2020-02-10] MEDS ORDERED: CATHETER FLUSH 10 ML SYR IV PRN (16:00)
[2020-02-10 16:27] VITALS: BP 116/74
[2020-02-10] MEDS: NS IV 1000 ML 1,000 ML IV SCH (16:29)
--- OUTSIDE RECORDS SUMMARY | 2020-02-10 17:14 | XMS REPORT | Clinical Summary ---
Author Author [facility] Organization [facility] Address Unknown Phone Unavailable Care Team Providers Care Publishing Manager Name Role Phone Nelia Jules MD Unavailable Aubrey Ball MD PCP Jori Gallegos MD 100 Tati Alejandro RN Unavailable Unavailable Clarissa Minor CRNA Unavailable Source Comments Some departments are not documenting in the electronic medical record. If you d o not see the information that you expected, contact Release of Information in [facility] RF Code Information Management department at [phone] for further assistan ce in locating additional records.[facility] Allergies Comments Active Allergy Reactions Severity [...] showed no obstructive disease. She has a [id number] score of 2--Female , HTN. Please refer [...] last 2-[address] Hewitt, in [place], did a CARDIAC CATH 08/2013 and her [...] rhythm. Atrial fibrillation 07/07/2014 Overview: 05/13/14: VICKIE: [facility]: EF 50% Echogenic density was [...] Cardioversion Ventricular tachycardia 06/15/2014 Overview: 08/20/13: Cath: [facility]: EF 60% dominant circumflex system [...] metoprolol poorly Atrial flutter 11/07/2010 Overview: SEI sightupw-OGN-8/11 CHADS2= one (HTN) Fall 2010-no flutteror AF-OK to DC Prad axa L ast Assessment & Plan: No recurrence since ablation. 48 hour h olter on 08/16/13 was negative for any atrial arrhythmias. Continues to be on daily aspirin therapy. Hyperlipidemia 09/22/2010 Last Assessment & Plan: Continues to be managed by Dr. Hewitt's office. Atypical chest pain Overview: 07/2007: [facility] @ [facility]: no sig nificant CAD. 20% mid circ. EF-wnl. RCA-spasm during cath. 05/18/2010: [facility] @ [facility]: No obstructive CAD, normal LV size/function. EF 60% HTN (hypertension) Last Assessment & Plan: Well controlled on current therapy. Palpitations Overview: 07/2007 - Complete echocardiogram: Ejec tion fraction 60%. Mild left ventricular hypertrophy. Trace MR. Mild TR. 30 day event monitor showed Atr ial Tach at 140-150bpm for 2-4 sec.. Toprol 25mg XL qd. 08/18/13: MPI: [facility]: EF 59%. Fair exercise tolerance. Frequent VPDs, ventricular bigeminy and ventricular couplets noted at rest and during recovery phase. Non diagnost ic ECG changes with exercise. Reversible ischemia involving the whole anterior wall and anterior apex. 01/06/14: Echo: [facility]: EF 60% bradycardia in 40's [...] Brother Alive Brother Alive Brother Brother Father [place] (Age 47) Mother Social History Date Tobacco [...] CIGNA CIGNA xxxxxxxxxx 2016-P MEDICARE resent SUPPLEMENT -[id number] Advance Directives Patient [place] Explanation Type Date Recorded Advance 07/07/2014 6:19 [...]
--- OUTSIDE RECORDS SUMMARY | 2020-02-10 17:14 | XMS REPORT | Encounter Summary ---
Author Author [facility] Organization [facility] Address Unknown Phone Unavailable Care Team Providers Care Military Administrative Technician Name Role Phone Nelia Jules MD Unavailable Aubrey Ball MD PCP Jori Gallegos MD 100 Tati Alejandro RN Unavailable Unavailable Clarissa Minor NUCLEAR RADIATION ENGINEER Unavailable Reason for Visit * Reason Comments Amiodarone Monitoring Pt has transferred care Encounter Details Care Team Description Date Type Department Thiago Graham RN Amiodarone Monitoring (Pt has transferre d care ) 09/03/2019 Documentation [address] [id number] Social History Date Tobacco Use [...] Thiago Graham, RICARDO - 09/03/2019 1:01 PM 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 Dr. Tim Most recent lab results Lab Results Component Value Date/Time AST 21 01/03/2018 ALT 11 01/03/2018 TSH 2.92 10/01/2017 QPPDS0L 0.78 10/01/2017 Procedures Last chest X-Ray: Last PFT: Last eye exam: DIE PRESS OPERATOR documented in this encounter Plan of Treatment Not on filedocumented as of this encounter Visit Diagnoses Not on filedocumented in this encounter
[2020-02-10] MEDS ORDERED: NS IV 500 ML 500 ML ONE (17:20)
--- OUTSIDE RECORDS SUMMARY | 2020-02-10 17:27 | XMS REPORT | Continuity of Care Document ---
Author Organization Unknown Address Unknown Phone Unavailable Allergies Active Description Code Type Severity Reaction Onset Reported/Identified Relationship to Patient Clinical Status Yes rosuvastatin [id number] Drug Allergy Mild N/A 03/06/2018 Yes Sulfa (Sulfonamide Antibiotics) [id number] Drug Allergy Unknown N/A 018 Yes sacubitril [id number] Drug Allerg y Mild RASH 07/01/2018 Yes valsartan [id number] Drug Allergy Mild RASH 07/01/2018 Yes fentanyl [id number] Drug Allergy Unknown Vomiting 04/14/2019 Medications There [...] MD Ot 414. 01 CORONARY ATHEROSCLEROSIS OF [place] CORON 05/13/2014 ELISE RIDER MD Ot 424. [...] Ot I25. 10 ATHSCL HEART DISEASE OF [place] CORONARY 02/17/2016 ELISE RIDER MD Ot I47. 2 VENTRICULAR TACHYCARDIA 02/17/2016 ELISE RIDER MD Ot I48. 0 PAROXYSMAL ATRIAL FIBRILLATION 02/17/2016 ELISE RIDER MD Ot I48. 92 UNSPECIFIED ATRIAL FLUTTER 02/17/2016 ELISE RIDER MD Ot J44. 9 CHRONIC OBSTRUCTIVE PULMONARY DISEASE, U 02/17/2016 ELISE RIDER MD Ot Z79.899 OTHER RETIREMENT (CURRENT) DRUG THERAPY 02/21/2016 ELISE RIDER MD Ot E78. 5 HYPERLIPIDEMIA, UNSPECIFIED 02/21/2016 ELISE RIDER MD Ot I25. 10 ATHSCL HEART DISEASE OF [place] CORONARY 02/21/2016 ELISE RIDER MD Ot I47. 2 VENTRICULAR TACHYCARDIA 02/21/2016 ELISE RIDER MD Ot I48. 0 PAROXYSMAL ATRIAL FIBRILLATION 02/21/2016 ELISE RIDER MD Ot I48. 92 UNSPECIFIED ATRIAL FLUTTER 02/21/2016 ELISE RIDER MD Ot J44. 9 CHRONIC OBSTRUCTIVE PULMONARY DISEASE, U 02/21/2016 ELISE RIDER MD Ot Z79.899 OTHER RETIREMENT (CURRENT) DRUG THERAPY 03/06/2016 KEKE VINES Ot E78.5 HYPERLIPIDEMIA, UNSPECIFIED 03/06/2016 KEKE VINES Ot I10 ESSENTIAL (PRIMARY) HYPERTENSION 03/06/2016 KEKE VINES Ot I47.2 VENTRICULAR TACHYCARDIA 03/06/2016 KEKE VINES Ot I48.0 PAROXYSMAL ATRIAL FIBRILLATION 03/09/2016 ELISE RIDER MD Ot E78. 5 HYPERLIPIDEMIA, UNSPECIFIED 03/09/2016 ELISE RIDER MD Ot I25. 10 ATHSCL HEART DISEASE OF [place] CORONARY 03/09/2016 ELISE RIDER MD Ot I47. 2 VENTRICULAR TACHYCARDIA 03/09/2016 ELISE RIDER MD Ot I48. 0 PAROXYSMAL ATRIAL FIBRILLATION 03/09/2016 ELISE RIDER MD Ot I48. 92 UNSPECIFIED ATRIAL FLUTTER 03/09/2016 ELISE RIDER MD Ot J44. 9 CHRONIC OBSTRUCTIVE PULMONARY DISEASE, U 03/09/2016 ELISE RIDER MD Ot Z79.899 OTHER LUMBER PRESS OPERATOR (CURRENT) DRUG THERAPY 05/13/2016 Ot 565.0 ANAL [...] Ot I25. 10 ATHSCL HEART DISEASE OF [place] CORONARY 05/13/2016 ELISE RIDER MD Ot I47. 2 VENTRICULAR TACHYCARDIA 05/13/2016 ELISE RIDER MD Ot I48. 0 PAROXYSMAL ATRIAL FIBRILLATION 05/13/2016 ELISE RIDER MD Ot I48. 92 UNSPECIFIED ATRIAL FLUTTER 05/13/2016 ELISE RIDER MD Ot J44. 9 CHRONIC OBSTRUCTIVE PULMONARY DISEASE, U 05/13/2016 ELISE RIDER MD Ot Z79.899 OTHER LUMBER PRESS OPERATOR (CURRENT) DRUG THERAPY 09/26/2016 Ot V76.12 OTH [...] Ot I25. 10 ATHSCL HEART DISEASE OF [place] CORONARY 09/26/2016 ELISE RIDER MD Ot I47. 2 VENTRICULAR TACHYCARDIA 09/26/2016 ELISE RIDER MD Ot I48. 0 PAROXYSMAL ATRIAL FIBRILLATION 09/26/2016 ELISE RIDER MD Ot I48. 92 UNSPECIFIED ATRIAL FLUTTER 09/26/2016 ELISE RIDER MD Ot J44. 9 CHRONIC OBSTRUCTIVE PULMONARY DISEASE, U 09/26/2016 ELISE RIDER MD Ot Z79.899 OTHER LUMBER PRESS OPERATOR (CURRENT) DRUG THERAPY 10/04/2016 Ot V76.12 OTH [...] Ot I25. 10 ATHSCL HEART DISEASE OF [place] CORONARY 10/04/2016 ELISE RIDER MD Ot I47. 2 VENTRICULAR TACHYCARDIA 10/04/2016 ELISE RIDER MD Ot I48. 0 PAROXYSMAL ATRIAL FIBRILLATION 10/04/2016 ELISE RIDER MD Ot I48. 92 UNSPECIFIED ATRIAL FLUTTER 10/04/2016 ELISE RIDER MD Ot J44. 9 CHRONIC OBSTRUCTIVE PULMONARY DISEASE, U 10/04/2016 ELISE RIDER MD Ot Z79.899 OTHER LUMBER PRESS OPERATOR (CURRENT) DRUG THERAPY 10/04/2016 ELISE RIDER MD Ot E78. 5 HYPERLIPIDEMIA, UNSPECIFIED 10/04/2016 ELISE RIDER MD Ot I10 ESSENTIAL (PRIMARY) HYPERTENSION 10/04/2016 ELISE RIDER MD Ot I47. 2 VENTRICULAR TACHYCARDIA 10/04/2016 ELISE RIDER MD Ot I48. 0 PAROXYSMAL ATRIAL FIBRILLATION 10/04/2016 ELISE RIDER MD Ot J44. 9 CHRONIC OBSTRUCTIVE PULMONARY DISEASE, U 10/04/2016 ELSIE RIDER MD Ot K21. 9 GASTRO-ESOPHAGEAL REFLUX DISEASE WITHOUT 10/04/2016 ELISE RIDER MD Ot Z79. 01 LUMBER PRESS OPERATOR (CURRENT) USE OF ANTICOAGULANT 10/04/2016 ELISE RIDER MD Ot Z79.899 OTHER RETIREMENT (CURRENT) DRUG THERAPY 10/11/2016 ELISE RIDER MD [...] 10/11/2016 ELISE RIDER MD Ot Z79. 01 LUMBER PRESS OPERATOR (CURRENT) USE OF ANTICOAGULANT 10/11/2016 ELISE RIDER MD Ot Z79.899 OTHER LUMBER PRESS OPERATOR (CURRENT) DRUG THERAPY 10/31/2016 JOYCE KIM DO Ot I1 0 ESSENTIAL (PRIMARY) HYPERTENSION 10/31/2016 JOYCE KIM DO Ot I48.2 CHRONIC ATRIAL FIBRILLATION 10/31/2016 JOYCE KIM DO Ot R07.9 CHEST PAIN, UNSPECIFIED 10/31/2016 JOYCE KIM DO, Ot Z79.01 RETIREMENT (CURRENT) USE OF ANTICOAGULANT 10/31/2016 JOYCE KIM DO, Ot Z79.899 OTHER LUMBER PRESS OPERATOR (CURRENT) DRUG THERAPY 11/06/2016 JOYCE KIM DO Ot I1 0 ESSENTIAL (PRIMARY) HYPERTENSION 11/06/2016 JOYCE KIM DO Ot I48.2 CHRONIC ATRIAL FIBRILLATION 11/06/2016 JOYCE KIM DO Ot R07.9 CHEST PAIN, UNSPECIFIED 11/06/2016 JOYCE KIM DO, Ot Z79.01 LUMBER PRESS OPERATOR (CURRENT) USE OF ANTICOAGULANT 11/06/2016 JOYCE KIM DO, Ot Z79.899 OTHER LUMBER PRESS OPERATOR (CURRENT) DRUG THERAPY 11/09/2016 ELISE RIDER MD, Ot E78. 00 PURE HYPERCHOLESTEROLEMIA, UNSPECIFIED 11/09/2016 ELISE RIDER MD, Ot F32. 9 MAJOR DEPRESSIVE DISORDER, SINGLE EPISOD 11/09/2016 ELISE RIDER MD Ot G47. 33 OBSTRUCTIVE SLEEP APNEA (ADULT) (PEDIATR 11/09/2016 ELISE RIDER MD Ot I10 ESSENTIAL (PRIMARY) HYPERTENSION 11/09/2016 ELISE RIDER MD, Ot I25. 10 ATHSCL HEART DISEASE OF [place] CORONARY 11/09/2016 ELISE RIDER MD Ot I47. [...] Ot I25. 10 ATHSCL HEART DISEASE OF [place] CORONARY 11/09/2016 ELISE RIDER MD Ot I47. [...] Ot I25. 10 ATHSCL HEART DISEASE OF [place] CORONARY 11/10/2016 ELISE RIDER MD Ot I47. [...] 11/10/2016 ELISE RIDER MD Ot Z79. 01 LUMBER PRESS OPERATOR (CURRENT) USE OF ANTICOAGULANT 11/10/2016 ELISE RIDER MD Ot Z79.899 OTHER LUMBER PRESS OPERATOR (CURRENT) DRUG THERAPY 11/23/2016 ELISE RIDER MD, Ot E78. 00 PURE HYPERCHOLESTEROLEMIA, UNSPECIFIED 11/23/2016 ELISE RIDER MD Ot F32. 9 MAJOR DEPRESSIVE DISORDER, SINGLE EPISOD 11/23/2016 ELISE RIDER MD Ot G47. 33 OBSTRUCTIVE SLEEP APNEA (ADULT) (PEDIATR 11/23/2016 ELISE RIDER MD Ot I10 ESSENTIAL (PRIMARY) HYPERTENSION 11/23/2016 ELISE RIDER MD Ot I25. 10 ATHSCL HEART DISEASE OF [place] CORONARY 11/23/2016 ELISE RIDER MD Ot I47. [...] Ot E78.00 PURE HYPERCHOLESTEROLEMIA, UNSPECIFIED 12/12/2016 ELLIS OPLLACK DO Ot E86.0 DEHYDRATION 12/12/2016 ELLIS POLLACK [...] DO ELLIS Ot E86.0 DEHYDRATION 12/14/2016 JAKI VANESSA ELLIS Ot G47.30 SLEEP APNEA, UNSPECIFIED 12/14/2016 [...] Ot I25. 10 ATHSCL HEART DISEASE OF [place] CORONARY 12/15/2016 ELISE RIDER MD, Ot I47. [...] 12/15/2016 ELISE RIDER MD, Ot Z79. 01 RETIREMENT (CURRENT) USE OF ANTICOAGULANT 12/15/2016 ELISE RIDER MD, Ot Z79.899 OTHER RETIREMENT (CURRENT) DRUG THERAPY 01/24/2017 Ot 272.4 HYPE [...] O 01/26/2017 SHAYNA DHILLON MD, Ot Z79.01 LUMBER PRESS OPERATOR (CURRENT) USE OF ANTICOAGULANT 01/26/2017 SHAYNA DHILLON MD, Ot Z79.89 9 OTHER RETIREMENT (CURRENT) DRUG THERAPY 01/26/2017 SHAYNA DHILLON MD, [...] Ot I25. 10 ATHSCL HEART DISEASE OF [place] CORONARY 03/19/2017 ELISE RIDER MD, Ot I48. 91 UNSPECIFIED ATRIAL FIBRILLATION 03/19/2017 ELISE RIDER MD, Ot I48. 92 UNSPECIFIED ATRIAL FLUTTER 03/19/2017 ELISE RIDER MD, Ot I49. 5 SICK SINUS SYNDROME 03/19/2017 ELISE RIDER MD, Ot Z53. 8 PROCEDURE AND TREATMENT NOT CARRIED OUT 03/19/2017 ELISE RIDER MD, Ot Z79. 01 RETIREMENT (CURRENT) USE OF ANTICOAGULANT 03/19/2017 ELISE RIDER MD Ot Z79.899 OTHER LUMBER PRESS OPERATOR (CURRENT) DRUG THERAPY 03/19/2017 ELISE RIDER MD [...] 401.9 HYPERTENSION NOS 06/11/2017 KEKE VINES Ot 424.0 MITRAL VALVE DISORDER 06/11/2017 KEKE [...] Ot I25. 10 ATHSCL HEART DISEASE OF [place] CORONARY 06/11/2017 ELISE RIDER MD Ot I47. 2 VENTRICULAR TACHYCARDIA 06/11/2017 ELISE RIDER MD Ot I48. 0 PAROXYSMAL ATRIAL FIBRILLATION 06/11/2017 ELISE RIDER MD Ot I48. 92 UNSPECIFIED ATRIAL FLUTTER 06/11/2017 ELISE RIDER MD Ot J44. 9 CHRONIC OBSTRUCTIVE PULMONARY DISEASE, U 06/11/2017 ELISE RIDER MD, Ot Z79.899 OTHER LUMBER PRESS OPERATOR (CURRENT) DRUG THERAPY 06/11/2017 ELISE RIDER MD Ot E78. 5 HYPERLIPIDEMIA, UNSPECIFIED 06/11/2017 ELISE RIDER MD Ot I10 ESSENTIAL (PRIMARY) HYPERTENSION 06/11/2017 ELISE RIDER MD Ot I25. 10 ATHSCL HEART DISEASE OF [place] CORONARY 06/11/2017 ELISE RIDER MD Ot I48. 91 UNSPECIFIED ATRIAL FIBRILLATION 06/11/2017 ELISE RIDER MD, Ot I48. 92 UNSPECIFIED ATRIAL FLUTTER 06/11/2017 ELISE RIDER MD, Ot I49. 5 SICK SINUS SYNDROME 06/11/2017 ELISE RIDER MD, Ot Z53. 8 PROCEDURE AND TREATMENT NOT CARRIED OUT 06/11/2017 ELISE RIDER MD Ot Z79. 01 RETIREMENT (CURRENT) USE OF ANTICOAGULANT 06/11/2017 ELISE RIDER MD, Ot Z79.899 OTHER LUMBER PRESS OPERATOR (CURRENT) DRUG THERAPY 06/11/2017 ELISE RIDER MD Ot Z95. 0 PRESENCE OF CARDIAC PACEMAKER 06/11/2017 CATHIE POPE DO Ot Z12.31 ENCNTR SCREEN MAMMOGRAM FOR MALIGNANT NE 07/07/2017 LARERY, TAHIR JUICE WEIGHER-C Ot R31 .9 HEMATURIA, UNSPECIFIED 07/07/2017 LARERY, TAHIR JUICE WEIGHER-C Ot R31 .9 HEMATURIA, UNSPECIFIED 07/12/2017 LARERY, TAHIR JUICE WEIGHER-C Ot R31 .9 HEMATURIA, UNSPECIFIED 07/12/2017 LARERY, TAHIR JUICE WEIGHER-C Ot Z51.81 ENCOUNTER FOR THERAPEUTIC DRUG LEVEL MON 07/12/2017 LARERY, TAHIR JUICE WEIGHER-C Ot Z79.899 OTHER LUMBER PRESS OPERATOR (CURRENT) DRUG THERAPY 2017 LARERY, TAHIR JUICE WEIGHER-C Ot R31 .9 HEMATURIA, UNSPECIFIED 2017 LARERY, TAHIR JUICE WEIGHER-C Ot Z51.81 ENCOUNTER FOR THERAPEUTIC DRUG LEVEL MON 2017 LARERY, TAHIR JUICE WEIGHER-C Ot Z79.899 OTHER RETIREMENT (CURRENT) DRUG THERAPY 08/27/2017 Ot V76.12 OTH [...] Ot I25. 10 ATHSCL HEART DISEASE OF [place] CORONARY 08/27/2017 ELISE RIDER MD Ot I47. 2 VENTRICULAR TACHYCARDIA 08/27/2017 ELISE RIDER MD Ot I48. 0 PAROXYSMAL ATRIAL FIBRILLATION 08/27/2017 ELISE RIDER MD Ot I48. 92 UNSPECIFIED ATRIAL FLUTTER 08/27/2017 ELISE RIDER MD Ot J44. 9 CHRONIC OBSTRUCTIVE PULMONARY DISEASE, U 08/27/2017 ELISE RIDER MD Ot Z79.899 OTHER LUMBER PRESS OPERATOR (CURRENT) DRUG THERAPY 08/27/2017 ELISE RIDER MD Ot E78. 5 HYPERLIPIDEMIA, UNSPECIFIED 08/27/2017 ELISE RIDER MD, Ot I10 ESSENTIAL (PRIMARY) HYPERTENSION 08/27/2017 ELISE RIDER MD, Ot I25. 10 ATHSCL HEART DISEASE OF [place] CORONARY 08/27/2017 ELISE RIDER MD, Ot I48. 91 UNSPECIFIED ATRIAL FIBRILLATION 08/27/2017 ELISE RIDER MD, Ot I48. 92 UNSPECIFIED ATRIAL FLUTTER 08/27/2017 ELISE RIDER MD, Ot I49. 5 SICK SINUS SYNDROME 08/27/2017 ELISE RIDER MD, Ot Z53. 8 PROCEDURE AND TREATMENT NOT CARRIED OUT 08/27/2017 ELISE RIDER MD, Ot Z79. 01 LUMBER PRESS OPERATOR (CURRENT) USE OF ANTICOAGULANT 08/27/2017 ELISE RIDER MD, Ot Z79.899 OTHER RETIREMENT (CURRENT) DRUG THERAPY 08/27/2017 ELISE RIDER MD, Ot Z95. 0 PRESENCE OF CARDIAC PACEMAKER 08/27/2017 CATHIE POPE DO Ot Z12.31 ENCNTR SCREEN MAMMOGRAM FOR MALIGNANT NE 08/27/2017 TAHIR HERNANDEZ-C Ot R31 .9 HEMATURIA, UNSPECIFIED 08/27/2017 TAHIR HERNANDEZ JUICE WEIGHER-C Ot Z51.81 ENCOUNTER FOR THERAPEUTIC DRUG LEVEL MON 08/27/2017 TAHIR HERNANDEZ-C Ot Z79.899 OTHER LUMBER PRESS OPERATOR (CURRENT) DRUG THERAPY 08/28/2017 Ot V76.12 OTH [...] 789.00 ABD OMINAL PAIN, UNSPECIFIED SITE 08/28/2017 DYEA BLANCO MD Ot V76. 12 OTH SCREEN [...] Ot I25. 10 ATHSCL HEART DISEASE OF [place] CORONARY 08/28/2017 ELISE RIDER MD Ot I47. 2 VENTRICULAR TACHYCARDIA 08/28/2017 ELISE RIDER MD Ot I48. 0 PAROXYSMAL ATRIAL FIBRILLATION 08/28/2017 ELISE RIDER MD Ot I48. 92 UNSPECIFIED ATRIAL FLUTTER 08/28/2017 ELISE RIDER MD Ot J44. 9 CHRONIC OBSTRUCTIVE PULMONARY DISEASE, U 08/28/2017 ELISE RIDER MD Ot Z79.899 OTHER LUMBER PRESS OPERATOR (CURRENT) DRUG THERAPY 08/28/2017 ELISE RIDER MD Ot E78. 5 HYPERLIPIDEMIA, UNSPECIFIED 08/28/2017 ELISE RIDER MD Ot I10 ESSENTIAL (PRIMARY) HYPERTENSION 08/28/2017 ELISE RIDER MD Ot I25. 10 ATHSCL HEART DISEASE OF [place] CORONARY 08/28/2017 ELISE RIDER MD Ot I48. 91 UNSPECIFIED ATRIAL FIBRILLATION 08/28/2017 ELISE RIDER MD Ot I48. 92 UNSPECIFIED ATRIAL FLUTTER 08/28/2017 ELISE RIDER MD Ot I49. 5 SICK SINUS SYNDROME 08/28/2017 ELISE RIDER MD Ot Z53. 8 PROCEDURE AND TREATMENT NOT CARRIED OUT 08/28/2017 ELISE RIDER MD Ot Z79. 01 LUMBER PRESS OPERATOR (CURRENT) USE OF ANTICOAGULANT 08/28/2017 ELISE RIDER MD Ot Z79.899 OTHER LUMBER PRESS OPERATOR (CURRENT) DRUG THERAPY 08/28/2017 ELISE RIDER MD Ot Z95. 0 PRESENCE OF CARDIAC PACEMAKER 08/28/2017 CATHIE POPE DO Ot Z12.31 ENCNTR SCREEN MAMMOGRAM FOR MALIGNANT NE 08/28/2017 TAHIR HERNANDEZ-C Ot R31 .9 HEMATURIA, UNSPECIFIED 08/28/2017 TAHIR HERNANDEZ-C Ot Z51.81 ENCOUNTER FOR THERAPEUTIC DRUG LEVEL MON 08/28/2017 TAHIR HERNANDEZP-C Ot Z79.899 OTHER LUMBER PRESS OPERATOR (CURRENT) DRUG THERAPY 09/04/2017 KEKE VINES Ot [...] Ot I25. 10 ATHSCL HEART DISEASE OF [place] CORONARY 09/12/2017 ELISE RIDER MD Ot I48. 91 UNSPECIFIED ATRIAL FIBRILLATION 09/12/2017 ELISE RIDER MD Ot J44. 9 CHRONIC OBSTRUCTIVE PULMONARY DISEASE, U 09/12/2017 ELISE RIDER MD Ot K21. 9 GASTRO-ESOPHAGEAL REFLUX DISEASE WITHOUT 09/12/2017 ELISE RIDER MD Ot R07. 9 CHEST PAIN, UNSPECIFIED 09/12/2017 ELISE RIDER MD Ot Z79. 01 RETIREMENT (CURRENT) USE OF ANTICOAGULANT 09/12/2017 ELISE RIDER MD Ot Z79.899 OTHER RETIREMENT (CURRENT) DRUG THERAPY 09/17/2017 ELISE RIDER MD Ot E78. 5 HYPERLIPIDEMIA, UNSPECIFIED 09/17/2017 ELISE RIDER MD Ot F32. 9 MAJOR DEPRESSIVE DISORDER, SINGLE EPISOD 09/17/2017 ADRY MD, BASHAR J Ot I10 ESSENTIAL (PRIMARY) HYPERTENSION 09/17/2017 ELISE RIDER MD Ot I25. 10 ATHSCL HEART DISEASE OF [place] CORONARY 09/17/2017 ELISE RIDER MD Ot I48. 91 UNSPECIFIED ATRIAL FIBRILLATION 09/17/2017 ELISE RIDER MD J Ot J44. 9 CHRONIC OBSTRUCTIVE PULMONARY DISEASE, U 09/17/2017 ELISE RIDER MD J Ot K21. 9 GASTRO-ESOPHAGEAL REFLUX DISEASE WITHOUT 09/17/2017 ELISE RIDER MD J Ot R07. 9 CHEST PAIN, UNSPECIFIED 09/17/2017 ELISE RIDER MD J Ot Z79. 01 LUMBER PRESS OPERATOR (CURRENT) USE OF ANTICOAGULANT 09/17/2017 ELISE RIDER MD Ot Z79.899 OTHER RETIREMENT (CURRENT) DRUG THERAPY 09/17/2017 ELISE RIDER MD Ot E78. 5 HYPERLIPIDEMIA, UNSPECIFIED 09/17/2017 ELISE RIDER MD Ot F32. 9 MAJOR DEPRESSIVE DISORDER, SINGLE EPISOD 09/17/2017 ELISE RIDER MD Ot I10 ESSENTIAL (PRIMARY) HYPERTENSION 09/17/2017 ELISE RIDER MD Ot I25. 10 ATHSCL HEART DISEASE OF [place] CORONARY 09/17/2017 ELISE RIDER MD Ot I48. 91 UNSPECIFIED ATRIAL FIBRILLATION 09/17/2017 ELISE RIDER MD Ot J44. 9 CHRONIC OBSTRUCTIVE PULMONARY DISEASE, U 09/17/2017 ELISE RIDER MD Ot K21. 9 GASTRO-ESOPHAGEAL REFLUX DISEASE WITHOUT 09/17/2017 ELISE RIDER MD Ot R07. 9 CHEST PAIN, UNSPECIFIED 09/17/2017 ELISE RIDER MD Ot Z79. 01 RETIREMENT (CURRENT) USE OF ANTICOAGULANT 09/17/2017 ELISE RIDER MD Ot Z79.899 OTHER LUMBER PRESS OPERATOR (CURRENT) DRUG THERAPY 09/25/2017 KEKE VINES Ot E78.2 MIXED HYPERLIPIDEMIA 09/25/2017 KEKE VINES Ot I10 ESSENTIAL (PRIMARY) HYPERTENSION 09/25/2017 KEKE VINES Ot I48.0 PAROXYSMAL ATRIAL FIBRILLATION 09/25/2017 KEKE VINES Ot R06.02 SHORTNESS OF BREATH 09/26/2017 DEYA BLANCO MD Ot K57. 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 09/27/2017 KEKE VINES Ot E78.5 HYPERLIPIDEMIA, UNSPECIFIED 09/27/2017 KEKE [...] Ot I25. 10 ATHSCL HEART DISEASE OF [place] CORONARY 10/17/2017 ELISE RIDER MD Ot I47. 2 VENTRICULAR TACHYCARDIA 10/17/2017 ELISE RIDER MD Ot I48. 0 PAROXYSMAL ATRIAL FIBRILLATION 10/17/2017 ELISE RIDER MD Ot I48. 92 UNSPECIFIED ATRIAL FLUTTER 10/17/2017 ELISE RIDER MD Ot J44. 9 CHRONIC OBSTRUCTIVE PULMONARY DISEASE, U 10/17/2017 ELISE RIDER MD Ot Z79.899 OTHER RETIREMENT (CURRENT) DRUG THERAPY 10/17/2017 ELISE RIDER MD Ot E78. 5 HYPERLIPIDEMIA, UNSPECIFIED 10/17/2017 ELISE RIDER MD Ot I10 ESSENTIAL (PRIMARY) HYPERTENSION 10/17/2017 ELISE RIDER MD Ot I25. 10 ATHSCL HEART DISEASE OF [place] CORONARY 10/17/2017 ELISE RIDER MD Ot I48. 91 UNSPECIFIED ATRIAL FIBRILLATION 10/17/2017 ELISE RIDER MD, Ot I48. 92 UNSPECIFIED ATRIAL FLUTTER 10/17/2017 ELISE RIDER MD Ot I49. 5 SICK SINUS SYNDROME 10/17/2017 ELISE RIDER MD Ot Z53. 8 PROCEDURE AND TREATMENT NOT CARRIED OUT 10/17/2017 ELISE RIDER MD, Ot Z79. 01 LUMBER PRESS OPERATOR (CURRENT) USE OF ANTICOAGULANT 10/17/2017 ELISE RIDER MD, Ot Z79.899 OTHER RETIREMENT (CURRENT) DRUG THERAPY 10/17/2017 ELISE RIDER MD [...] R06.02 SHORTNESS OF BREATH 10/17/2017 MARY TAHIR JUICE WEIGHER-C Ot R31 .9 HEMATURIA, UNSPECIFIED 10/17/2017 MARY TAHIR JUICE WEIGHER-C Ot Z51.81 ENCOUNTER FOR THERAPEUTIC DRUG LEVEL MON 10/17/2017 MARY TAHIR JUICE WEIGHER-C Ot Z79.899 OTHER LUMBER PRESS OPERATOR (CURRENT) DRUG THERAPY 10/17/2017 FRANCIS KUMARI, DEYA [...] 724. 1 PAIN IN THORACIC SPINE 10/17/2017 FRNACIS KUMARI, DEYA Landeros Ot Z12. 31 ENCNTR SCREEN MAMMOGRAM FOR MALIGNANT NE 10/17/2017 KEKE VINES Ot E78.5 HYPERLIPIDEMIA, UNSPECIFIED 10/17/2017 KEKE VINES Ot I10 ESSENTIAL (PRIMARY) HYPERTENSION 10/17/2017 KEKE VINES Ot I47.2 VENTRICULAR TACHYCARDIA 10/17/2017 KEKE VINES Ot I48.0 PAROXYSMAL ATRIAL FIBRILLATION 10/17/2017 ELISE RIDER MD Ot E78. 5 HYPERLIPIDEMIA, UNSPECIFIED 10/17/2017 ELISE RIDER MD Ot I25. 10 ATHSCL HEART DISEASE OF [place] CORONARY 10/17/2017 ELISE RIDER MD Ot I47. 2 VENTRICULAR TACHYCARDIA 10/17/2017 ELISE RIDER MD Ot I48. 0 PAROXYSMAL ATRIAL FIBRILLATION 10/17/2017 ELISE RIDER MD Ot I48. 92 UNSPECIFIED ATRIAL FLUTTER 10/17/2017 ELISE RIDER MD Ot J44. 9 CHRONIC OBSTRUCTIVE PULMONARY DISEASE, U 10/17/2017 ELISE RIDER MD Ot Z79.899 OTHER RETIREMENT (CURRENT) DRUG THERAPY 10/17/2017 ELISE RIDER MD Ot E78. 5 HYPERLIPIDEMIA, UNSPECIFIED 10/17/2017 ELISE RIDER MD Ot I10 ESSENTIAL (PRIMARY) HYPERTENSION 10/17/2017 ELISE RIDER MD Ot I25. 10 ATHSCL HEART DISEASE OF [place] CORONARY 10/17/2017 ELISE RIDER MD Ot I48. 91 UNSPECIFIED ATRIAL FIBRILLATION 10/17/2017 ELISE RIDER MD Ot I48. 92 UNSPECIFIED ATRIAL FLUTTER 10/17/2017 ELISE RIDER MD Ot I49. 5 SICK SINUS SYNDROME 10/17/2017 ELISE RIDER MD Ot Z53. 8 PROCEDURE AND TREATMENT NOT CARRIED OUT 10/17/2017 ELISE RIDER MD Ot Z79. 01 LUMBER PRESS OPERATOR (CURRENT) USE OF ANTICOAGULANT 10/17/2017 ELISE RIDER MD, Ot Z79.899 OTHER LUMBER PRESS OPERATOR (CURRENT) DRUG THERAPY 10/17/2017 ELISE RIDER MD [...] R06.02 SHORTNESS OF BREATH 10/17/2017 TAHIR HERNANDEZ JUICE WEIGHER-C Ot R31 .9 HEMATURIA, UNSPECIFIED 10/17/2017 MARY TAHIR JUICE WEIGHER-C Ot Z51.81 ENCOUNTER FOR THERAPEUTIC DRUG LEVEL MON 10/17/2017 TAHIR HERNANDEZ JUICE WEIGHER-C Ot Z79.899 OTHER LUMBER PRESS OPERATOR (CURRENT) DRUG THERAPY 10/17/2017 FRANCIS KUMARI, DEYA [...] Ot I25. 10 ATHSCL HEART DISEASE OF [place] CORONARY 10/17/2017 ELISE RIDER MD Ot I47. 2 VENTRICULAR TACHYCARDIA 10/17/2017 ELISE RIDER MD Ot I48. 0 PAROXYSMAL ATRIAL FIBRILLATION 10/17/2017 ELISE RIDER MD Ot I48. 92 UNSPECIFIED ATRIAL FLUTTER 10/17/2017 ELISE RIDER MD Ot J44. 9 CHRONIC OBSTRUCTIVE PULMONARY DISEASE, U 10/17/2017 ELISE RIDER MD Ot Z79.899 OTHER LUMBER PRESS OPERATOR (CURRENT) DRUG THERAPY 10/17/2017 ELISE RIDER MD Ot E78. 5 HYPERLIPIDEMIA, UNSPECIFIED 10/17/2017 ELISE RIDER MD Ot I10 ESSENTIAL (PRIMARY) HYPERTENSION 10/17/2017 ELISE RIDER MD Ot I25. 10 ATHSCL HEART DISEASE OF [place] CORONARY 10/17/2017 ELISE RIDER MD Ot I48. 91 UNSPECIFIED ATRIAL FIBRILLATION 10/17/2017 ELISE RIDER MD Ot I48. 92 UNSPECIFIED ATRIAL FLUTTER 10/17/2017 ELISE RIDER MD Ot I49. 5 SICK SINUS SYNDROME 10/17/2017 ELISE RIDER MD Ot Z53. 8 PROCEDURE AND TREATMENT NOT CARRIED OUT 10/17/2017 ELISE RIDER MD Ot Z79. 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 10 ATHSCL HEART DISEASE OF [place] CORONARY 10/19/2017 ELISE RIDER MD Ot I47. 2 VENTRICULAR TACHYCARDIA 10/19/2017 ELISE RIDER MD Ot I48. 0 PAROXYSMAL ATRIAL FIBRILLATION 10/19/2017 ELISE RIDER MD Ot I48. 92 UNSPECIFIED ATRIAL FLUTTER 10/19/2017 ELISE RIDER MD Ot J44. 9 CHRONIC OBSTRUCTIVE PULMONARY DISEASE, U 10/19/2017 ELISE RIDER MD Ot Z79.899 OTHER RETIREMENT (CURRENT) DRUG THERAPY 10/19/2017 ELISE RIDER MD Ot E78. 5 HYPERLIPIDEMIA, UNSPECIFIED 10/19/2017 ELISE RIDER MD Ot I10 ESSENTIAL (PRIMARY) HYPERTENSION 10/19/2017 ELISE RIDER MD Ot I25. 10 ATHSCL HEART DISEASE OF [place] CORONARY 10/19/2017 ELISE RIDER MD Ot I48. 91 UNSPECIFIED ATRIAL FIBRILLATION 10/19/2017 ELISE RIDER MD Ot I48. 92 UNSPECIFIED ATRIAL FLUTTER 10/19/2017 ELISE RIDER MD Ot I49. 5 SICK SINUS SYNDROME 10/19/2017 ELISE RIDER MD Ot Z53. 8 PROCEDURE AND TREATMENT NOT CARRIED OUT 10/19/2017 ELISE RIDER MD Ot Z79. 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 3 TYPICAL ATRIAL FLUTTER 10/23/2017 HORTENSIA KLINE MD Ot Z51. 81 ENCOUNTER FOR THERAPEUTIC DRUG LEVEL MON 10/23/2017 HORTENSIA KLINE MD Ot Z79.899 OTHER RETIREMENT (CURRENT) DRUG THERAPY 10/25/2017 HORTENSIA KLINE MD Ot I48. 3 TYPICAL ATRIAL FLUTTER 10/25/2017 HORTENSIA KLINE MD Ot Z51. 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 10 ATHSCL HEART DISEASE OF [place] CORONARY 11/07/2017 ELISE RIDER MD Ot I47. 2 VENTRICULAR TACHYCARDIA 11/07/2017 ELISE RIDER MD Ot I48. 0 PAROXYSMAL ATRIAL FIBRILLATION 11/07/2017 ELISE RIDER MD Ot I48. 92 UNSPECIFIED ATRIAL FLUTTER 11/07/2017 ELISE RIDER MD Ot J44. 9 CHRONIC OBSTRUCTIVE PULMONARY DISEASE, U 11/07/2017 ELISE RIDER MD Ot Z79.899 OTHER RETIREMENT (CURRENT) DRUG THERAPY 11/07/2017 ELISE RIDER MD Ot E78. 5 HYPERLIPIDEMIA, UNSPECIFIED 11/07/2017 ELISE RIDER MD Ot I10 ESSENTIAL (PRIMARY) HYPERTENSION 11/07/2017 ELISE RIDER MD Ot I25. 10 ATHSCL HEART DISEASE OF [place] CORONARY 11/07/2017 ELISE RIDER MD Ot I48. 91 UNSPECIFIED ATRIAL FIBRILLATION 11/07/2017 ELISE RIDER MD, Ot I48. 92 UNSPECIFIED ATRIAL FLUTTER 11/07/2017 ELISE RIDER MD, Ot I49. 5 SICK SINUS SYNDROME 11/07/2017 ELISE RIDER MD, Ot Z53. 8 PROCEDURE AND TREATMENT NOT CARRIED OUT 11/07/2017 ELISE RIDER MD, Ot Z79. 01 RETIREMENT (CURRENT) USE OF ANTICOAGULANT 11/07/2017 ELISE RIDER MD, Ot Z79.899 OTHER RETIREMENT (CURRENT) DRUG THERAPY 11/07/2017 ELISE RIDER MD, [...] MON 11/07/2017 TAHIR HERNANDEZ-C Ot Z79.899 OTHER RETIREMENT (CURRENT) DRUG THERAPY 11/07/2017 FRANCIS KUMARI, DEYA Landeros Ot K57. 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 11/07/2017 ELIUD KUMARI, HORTENSIA Antoine Ot I48. 3 TYPICAL ATRIAL FLUTTER 11/07/2017 HORTENSIA KLINE MD Ot Z51. 81 ENCOUNTER FOR THERAPEUTIC DRUG LEVEL MON 11/07/2017 HORTENSIA KLINE MD Ot Z79.899 OTHER RETIREMENT (CURRENT) DRUG THERAPY 11/08/2017 RITO NGUYEN PRODUCTION ZONE LEADER Ot K21.9 GASTRO-ESOPHAGEAL REFLUX DISEASE WITHOUT 11/08/2017 MYCHAL NGUYENINE E PRODUCTION ZONE LEADER Ot R06.09 OTHER FORMS OF DYSPNEA 11/08/2017 RITO NGUYEN E PRODUCTION ZONE LEADER Ot R07.9 CHEST PAIN, UNSPECIFIED 11/09/2017 HORTENSIA KLINE MD Ot I48. 3 TYPICAL ATRIAL FLUTTER 11/09/2017 HORTENSIA KLINE MD Ot Z51. 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01 RETIREMENT (CURRENT) USE OF ANTICOAGULANT 01/11/2018 MARCO A [...] ELLIS Ot I25.10 ATHSCL HEART DISEASE OF [place] CORONARY 01/14/2018 JAKI VANESSA ELLIS Ot I27.20 [...] SURG 01/14/2018 POLLACKELLIS DIANA DO Ot Z79.01 RETIREMENT (CURRENT) USE OF ANTICOAGULANT 01/14/2018 POLLACKELLIS DIANA [...] Ot I25. 10 ATHSCL HEART DISEASE OF [place] CORONARY 02/01/2018 ELISE RIDER MD Ot I47. 2 VENTRICULAR TACHYCARDIA 02/01/2018 ELISE RIDER MD Ot I48. 0 PAROXYSMAL ATRIAL FIBRILLATION 02/01/2018 ELISE RIDER MD Ot I48. 92 UNSPECIFIED ATRIAL FLUTTER 02/01/2018 ELISE RIDER MD Ot J44. 9 CHRONIC OBSTRUCTIVE PULMONARY DISEASE, U 02/01/2018 ELISE RIDER MD Ot Z79.899 OTHER RETIREMENT (CURRENT) DRUG THERAPY 02/01/2018 ELISE RIDER MD Ot E78. 5 HYPERLIPIDEMIA, UNSPECIFIED 02/01/2018 ELISE RIDER MD Ot I10 ESSENTIAL (PRIMARY) HYPERTENSION 02/01/2018 ELISE RIDER MD Ot I25. 10 ATHSCL HEART DISEASE OF [place] CORONARY 02/01/2018 ELISE RIDER MD Ot I48. 91 UNSPECIFIED ATRIAL FIBRILLATION 02/01/2018 ELISE RIDER MD Ot I48. 92 UNSPECIFIED ATRIAL FLUTTER 02/01/2018 ELISE RIDER MD Ot I49. 5 SICK SINUS SYNDROME 02/01/2018 ELISE RIDER MD Ot Z53. 8 PROCEDURE AND TREATMENT NOT CARRIED OUT 02/01/2018 ELISE RIDER MD Ot Z79. 01 RETIREMENT (CURRENT) USE OF ANTICOAGULANT 02/01/2018 ELISE RIDER MD Ot Z79.899 OTHER RETIREMENT (CURRENT) DRUG THERAPY 02/01/2018 ELISE RIDER MD [...] R06.02 SHORTNESS OF BREATH 02/01/2018 TAHIR HERNANDEZ JUICE WEIGHER-C Ot R31 .9 HEMATURIA, UNSPECIFIED 02/01/2018 TAHIR HERNANDEZ JUICE WEIGHER-C Ot Z51.81 ENCOUNTER FOR THERAPEUTIC DRUG LEVEL MON 02/01/2018 TAHIR HERNANDEZ JUICE WEIGHER-C Ot Z79.899 OTHER LUMBER PRESS OPERATOR (CURRENT) DRUG THERAPY 02/01/2018 FRANCIS KUMARI, DEYA R Ot K57. 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 3 TYPICAL ATRIAL FLUTTER 02/01/2018 HORTENSIA KLINE MD Ot Z51. 81 ENCOUNTER FOR THERAPEUTIC DRUG LEVEL MON 02/01/2018 HORTENSIA KLINE MD Ot Z79.899 OTHER LUMBER PRESS OPERATOR (CURRENT) DRUG THERAPY 02/01/2018 RITO NGUYEN APRN [...] Ot I25. 10 ATHSCL HEART DISEASE OF [place] CORONARY 02/01/2018 ELISE RIDER MD Ot I47. 2 VENTRICULAR TACHYCARDIA 02/01/2018 ELISE RIDER MD Ot I48. 0 PAROXYSMAL ATRIAL FIBRILLATION 02/01/2018 ELISE RIDER MD Ot I48. 92 UNSPECIFIED ATRIAL FLUTTER 02/01/2018 ELISE RIDER MD Ot J44. 9 CHRONIC OBSTRUCTIVE PULMONARY DISEASE, U 02/01/2018 ELISE RIDER MD Ot Z79.899 OTHER RETIREMENT (CURRENT) DRUG THERAPY 02/01/2018 ELISE RIDER MD Ot E78. 5 HYPERLIPIDEMIA, UNSPECIFIED 02/01/2018 ELISE RIDER MD Ot I10 ESSENTIAL (PRIMARY) HYPERTENSION 02/01/2018 ELISE RIDER MD, Ot I25. 10 ATHSCL HEART DISEASE OF [place] CORONARY 02/01/2018 ELISE RIDER MD Ot I48. 91 UNSPECIFIED ATRIAL FIBRILLATION 02/01/2018 ELISE RIDER MD, Ot I48. 92 UNSPECIFIED ATRIAL FLUTTER 02/01/2018 ELISE RIDER MD, Ot I49. 5 SICK SINUS SYNDROME 02/01/2018 ELISE RIDER MD, Ot Z53. 8 PROCEDURE AND TREATMENT NOT CARRIED OUT 02/01/2018 ELISE RIDER MD, Ot Z79. 01 RETIREMENT (CURRENT) USE OF ANTICOAGULANT 02/01/2018 ELISE RIDER MD, Ot Z79.899 OTHER RETIREMENT (CURRENT) DRUG THERAPY 02/01/2018 ELISE RIDER MD, [...] THERAPEUTIC DRUG LEVEL MON 02/01/2018 LARERY, TAHIR JUICE WEIGHER-C Ot Z79.899 OTHER LUMBER PRESS OPERATOR (CURRENT) DRUG THERAPY 02/01/2018 FRANCIS KUMARI, DEYA [...] 02/01/2018 HORTENSIA KLINE MD Ot Z79.899 OTHER LUMBER PRESS OPERATOR (CURRENT) DRUG THERAPY 02/01/2018 RITO NGUYEN APRN Ot J98.4 OTHER DISORDERS OF LUNG 02/01/2018 RITO NGUYEN APRN Ot R06.02 SHORTNESS OF BREATH 02/01/2018 RITO NGUYEN APRN Ot J98.4 OTHER DISORDERS OF LUNG 02/05/2018 BHAVNA JEFFERY PRODUCTION ZONE LEADER Ot K76.0 FATTY (CHANGE OF) LIVER, NOT [...] 03/13/2018 VÍCTOR ZARATE MD Ot Z79.0 1 RETIREMENT (CURRENT) USE OF ANTICOAGULANT 03/13/2018 VÍCTOR ZARATE [...] HISTORY OF URINARY (TRACT) INFE 03/18/2018 ZIYAD UBNN APRN Ot Z87.59 PERSONAL HISTORY OF COMP [...] 03/20/2018 VÍCTOR ZARATE MD Ot Z79.0 1 LUMBER PRESS OPERATOR (CURRENT) USE OF ANTICOAGULANT 03/20/2018 VÍCTOR ZARATE [...] ENCNTR SCREEN MAMMOGRAM FOR MALIGNANT NE 04/15/2018 BULLNDER , JALYN S Ot Z12.31 ENCNTR SCREEN MAMMOGRAM FOR MALIGNANT NE 04/18/2018 LATIA, BHAVNA R PRODUCTION ZONE LEADER Ot J90 PLEURAL EFFUSION, NOT ELSEWHERE CLASSIFI 04/18/2018 LATIA, BHAVNA R PRODUCTION ZONE LEADER Ot K57.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 04/18/2018 LATIA, BHAVNA R PRODUCTION ZONE LEADER Ot R16.0 HEPATOMEGALY, NOT ELSEWHERE CLASSIFIED 04/18/2018 LATIA, BHAVNA R PRODUCTION ZONE LEADER Ot R18.8 OTHER ASCITES 04/18/2018 LATIA, BHAVNA R PRODUCTION ZONE LEADER Ot Z90.710 ACQUIRED ABSENCE OF BOTH CERVIX AND UTER 04/18/2018 LATIA, BHAVNA R PRODUCTION ZONE LEADER Ot Z95.818 PRESENCE OF OTHER CARDIAC IMPLANTS AND G 04/22/2018 BULLNDER , JALYN S Ot D64.9 ANEMIA, UNSPECIFIED 04/22/2018 BULLNDER DO, JALYN S Ot E83.42 HYPOMAGNESEMIA 04/22/2018 BULLNDER DO, JALYN S Ot E87.6 HYPOKALEMIA 04/22/2018 BULLNDER DO, JALYN S Ot F32.9 MAJOR DEPRESSIVE DISORDER, SINGLE EPISOD 04/22/2018 BULLNDER DO, JALYN S Ot F41.9 ANXIETY DISORDER, UNSPECIFIED 04/22/2018 BULLNDER DO, JALNY S Ot G47.33 OBSTRUCTIVE SLEEP APNEA (ADULT) (PEDIATR 04/22/2018 BULLNDER DO, JALYN S Ot I11.0 HYPERTENSIVE HEART DISEASE WITH HEART FA 04/22/2018 BULLNDER DO, JALYN S Ot I25.10 ATHSCL HEART DISEASE OF [place] CORONARY 04/22/2018 BULLNDER DO, JALYN S Ot I27.20 PULMONARY HYPERTENSION, UNSPECIFIED 04/22/2018 BULLNDER DO, JALYN S Ot I42.9 CARDIOMYOPATHY, UNSPECIFIED 04/22/2018 BULLNDER DO, JALYN S Ot I48.2 CHRONIC ATRIAL FIBRILLATION 04/22/2018 BULLNDER , JALYN S Ot I48.92 UNSPECIFIED ATRIAL FLUTTER 04/22/2018 DAPHNE VANESSA JALYN S Ot I49.3 VENTRICULAR PREMATURE DEPOLARIZATION 04/22/2018 DAPHNE VANESSA JALYN Camacho Ot I50.23 ACUTE ON CHRONIC SYSTOLIC (CONGESTIVE) H 04/22/2018 DAPHNE VANESSA JALYN Camacho Ot J44.9 CHRONIC OBSTRUCTIVE PULMONARY DISEASE, U [...] 04/26/2018 KHALID MD, M JEROME Ot Z79.01 LUMBER PRESS OPERATOR (CURRENT) USE OF ANTICOAGULANT 04/26/2018 Breanne RANGEL MD Ot Z79.899 OTHER LUMBER PRESS OPERATOR (CURRENT) DRUG THERAPY 04/26/2018 Breanne RANGEL MD [...] I49 .3 VENTRICULAR PREMATURE DEPOLARIZATION 05/01/2018 Breanne RANGEL MD Ot I50.22 CHRONIC SYSTOLIC (CONGESTIVE) HEART FAIL 05/01/2018 Breanne RANGEL MD Ot Z79.01 RETIREMENT (CURRENT) USE OF ANTICOAGULANT 05/01/2018 Breanne RANGEL MD Ot Z79.899 OTHER LUMBER PRESS OPERATOR (CURRENT) DRUG THERAPY 05/01/2018 Breanne RANGEL MD [...] WITHOUT 06/07/2018 Breanne RANGEL MD Ot Z79.01 RETIREMENT (CURRENT) USE OF ANTICOAGULANT 06/07/2018 Breanne RANGEL MD Ot Z79.899 OTHER RETIREMENT (CURRENT) DRUG THERAPY 06/07/2018 Breanne RANGEL MD [...] WITHOUT 06/11/2018 Breanne RANGEL MD Ot Z79.01 LUMBER PRESS OPERATOR (CURRENT) USE OF ANTICOAGULANT 06/11/2018 Breanne RANGEL MD Ot Z79.899 OTHER LUMBER PRESS OPERATOR (CURRENT) DRUG THERAPY 06/11/2018 Breanne RANGEL MD Ot Z95.810 PRESENCE OF AUTOMATIC (IMPLANTABLE) CARD 06/17/2018 KEKE VINES Ot E78.5 HYPERLIPIDEMIA, UNSPECIFIED 06/17/2018 KKEE VINES Ot I08.3 COMB RHEUMATIC DISORD OF [...] DOI Ot I25.10 ATHSCL HEART DISEASE OF [place] CORONARY 07/03/2018 JAKI VANESSA ELLIS Ot I27.20 [...] WITHOUT 07/03/2018 ELLIS POLLACK DO Ot Z79.01 RETIREMENT (CURRENT) USE OF ANTICOAGULANT 07/03/2018 ELLIS POLLACK [...] DOI Ot I25.10 ATHSCL HEART DISEASE OF [place] CORONARY 07/04/2018 LISA POLLACK DOI Ot I27.20 [...] WITHOUT 07/04/2018 ELLIS POLLACK DO Ot Z79.01 RETIREMENT (CURRENT) USE OF ANTICOAGULANT 07/04/2018 ELLIS POLLACK [...] DOI Ot I25.10 ATHSCL HEART DISEASE OF [place] CORONARY 07/04/2018 LISA POLLACK DOI Ot I27.20 PULMONARY HYPERTENSION, UNSPECIFIED 07/04/2018 LIAS POLLACK DOI Ot I42.8 OTHER CARDIOMYOPATHIES 07/04/2018 [...] CA 07/04/2018 ELLIS POLLACK DO Ot Z79.01 LUMBER PRESS OPERATOR (CURRENT) USE OF ANTICOAGULANT 07/04/2018 ELLIS POLLACK [...] OF AUTOMATIC (IMPLANTABLE) CARD 07/05/2018 BHAVNA JEFFERY PRODUCTION ZONE LEADER Ot J90 PLEURAL EFFUSION, NOT ELSEWHERE CLASSIFI 07/05/2018 BHAVNA JEFFERY APRN Ot K57.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 07/05/2018 BHAVNA JEFFERY APRN Ot R16.0 HEPATOMEGALY, NOT ELSEWHERE CLASSIFIED 07/05/2018 BHAVNA JEFFERY APRN Ot R18.8 OTHER ASCITES 07/05/2018 BHAVNA JEFFERY APRN Ot Z90.710 ACQUIRED ABSENCE OF BOTH CERVIX AND UTER 07/05/2018 BHAVNA JEFFERY PRODUCTION ZONE LEADER Ot Z95.818 PRESENCE OF OTHER CARDIAC IMPLANTS [...] SMO 07/08/2018 KWAME QUEEN MD, Ot Z79.01 LUMBER PRESS OPERATOR (CURRENT) USE OF ANTICOAGULANT 07/08/2018 KWAME QUEEN [...] Ot R06.02 SHORTNESS OF BREATH 07/11/2018 KWAME UQEEN MD, Ot Z77.22 CNTCT W AND EXPSR TO ENVIRON TOBACCO SMO 07/11/2018 KWAME QUEEN MD Ot Z79.01 LUMBER PRESS OPERATOR (CURRENT) USE OF ANTICOAGULANT 07/11/2018 KWAME QUEEN [...] VINES Ot 401.9 HYPERTENSION NOS 10/03/2018 KEKE IVNES Ot 427.1 PAROX VENTRIC TACHYCARD 10/03/2018 KEKE [...] Ot I25. 10 ATHSCL HEART DISEASE OF [place] CORONARY 10/03/2018 ELISE RIDER MD Ot I47. 2 VENTRICULAR TACHYCARDIA 10/03/2018 ELISE RIDER MD Ot I48. 0 PAROXYSMAL ATRIAL FIBRILLATION 10/03/2018 ELISE RIDER MD Ot I48. 92 UNSPECIFIED ATRIAL FLUTTER 10/03/2018 ELISE RIDER MD Ot J44. 9 CHRONIC OBSTRUCTIVE PULMONARY DISEASE, U 10/03/2018 ELISE RIDER MD Ot Z79.899 OTHER LUMBER PRESS OPERATOR (CURRENT) DRUG THERAPY 10/03/2018 LEISE RIDER MD Ot E78. 5 HYPERLIPIDEMIA, UNSPECIFIED 10/03/2018 ELISE RIDER MD Ot I10 ESSENTIAL (PRIMARY) HYPERTENSION 10/03/2018 ELISE RIDER MD Ot I25. 10 ATHSCL HEART DISEASE OF [place] CORONARY 10/03/2018 ELISE RIDER MD Ot I48. 91 UNSPECIFIED ATRIAL FIBRILLATION 10/03/2018 ELISE RIDER MD, Ot I48. 92 UNSPECIFIED ATRIAL FLUTTER 10/03/2018 ELISE RIDER MD, Ot I49. 5 SICK SINUS SYNDROME 10/03/2018 ELISE RIDER MD, Ot Z53. 8 PROCEDURE AND TREATMENT NOT CARRIED OUT 10/03/2018 ELISE RIDER MD, Ot Z79. 01 RETIREMENT (CURRENT) USE OF ANTICOAGULANT 10/03/2018 ELISE RIDER MD, Ot Z79.899 OTHER LUMBER PRESS OPERATOR (CURRENT) DRUG THERAPY 10/03/2018 ELISE RIDER MD, [...] MON 10/03/2018 TAHIR HERNANDEZ-C Ot Z79.899 OTHER RETIREMENT (CURRENT) DRUG THERAPY 10/03/2018 FRANCIS KUMARI, DEYA Landeros Ot K57. 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 3 TYPICAL ATRIAL FLUTTER 10/03/2018 HORTENSIA KLINE MD Ot Z51. 81 ENCOUNTER FOR THERAPEUTIC DRUG LEVEL MON 10/03/2018 HORTENSIA KLINE MD Ot Z79.899 OTHER RETIREMENT (CURRENT) DRUG THERAPY 10/03/2018 RITO NGUYEN APRN Ot J98.4 OTHER DISORDERS OF LUNG 10/03/2018 BHAVNA JEFFERY PRODUCTION ZONE LEADER Ot K76.0 FATTY (CHANGE OF) LIVER, NOT ELSEWHERE C 10/03/2018 BHAVNA JEFFERY R PRODUCTION ZONE LEADER Ot Z53.8 PROCEDURE AND TREATMENT NOT CARRIED [...] FOR MALIGNANT NE 10/03/2018 BHAVNA JEFFERY R PRODUCTION ZONE LEADER Ot J90 PLEURAL EFFUSION, NOT ELSEWHERE CLASSIFI 10/03/2018 BHAVNA JEFFERY R PRODUCTION ZONE LEADER Ot K57.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 10/03/2018 DYLAN JEFFERYYSON R PRODUCTION ZONE LEADER Ot R16.0 HEPATOMEGALY, NOT ELSEWHERE CLASSIFIED 10/03/2018 LATIA BHAVNA R PRODUCTION ZONE LEADER Ot R18.8 OTHER ASCITES 10/03/2018 BHAVNA JEFFERY R PRODUCTION ZONE LEADER Ot Z90.710 ACQUIRED ABSENCE OF BOTH CERVIX AND UTER 10/03/2018 BHAVNA JEFFERY PRODUCTION ZONE LEADER Ot Z95.818 PRESENCE OF OTHER CARDIAC IMPLANTS [...] 426. 11 ATRIOVENT BLOCK-1ST DEGR 10/07/2018 ELISE RDIER MD Ot 427. 1 PAROX VENTRIC TACHYCARD [...] 786.09 RESPIRATORY ABNORM NEC 10/07/2018 FRANCIS KUMARI, DEAY Landeros Ot 789. 00 ABDOMINAL PAIN, UNSPECIFIED [...] Ot I10 ESSENTIAL (PRIMARY) HYPERTENSION 10/07/2018 KEKE VNIES Ot I47.2 VENTRICULAR TACHYCARDIA 10/07/2018 KEKE VINES Ot I48.0 PAROXYSMAL ATRIAL FIBRILLATION 10/07/2018 ELISE RIDER MD Ot E78. 5 HYPERLIPIDEMIA, UNSPECIFIED 10/07/2018 ELISE RIDER MD Ot I25. 10 ATHSCL HEART DISEASE OF [place] CORONARY 10/07/2018 ELISE RIDER MD Ot I47. 2 VENTRICULAR TACHYCARDIA 10/07/2018 ELISE RIDER MD Ot I48. 0 PAROXYSMAL ATRIAL FIBRILLATION 10/07/2018 ELISE RIDER MD Ot I48. 92 UNSPECIFIED ATRIAL FLUTTER 10/07/2018 ELISE RIDER MD, Ot J44. 9 CHRONIC OBSTRUCTIVE PULMONARY DISEASE, U 10/07/2018 ELISE RIDER MD, Ot Z79.899 OTHER RETIREMENT (CURRENT) DRUG THERAPY 10/07/2018 ELISE RIDER MD Ot E78. 5 HYPERLIPIDEMIA, UNSPECIFIED 10/07/2018 ELISE RIDER MD Ot I10 ESSENTIAL (PRIMARY) HYPERTENSION 10/07/2018 ELIES RIDER MD, Ot I25. 10 ATHSCL HEART DISEASE OF [place] CORONARY 10/07/2018 ELISE RIDER MD, Ot I48. 91 UNSPECIFIED ATRIAL FIBRILLATION 10/07/2018 ELISE RIDER MD, Ot I48. 92 UNSPECIFIED ATRIAL FLUTTER 10/07/2018 ELISE RIDER MD, Ot I49. 5 SICK SINUS SYNDROME 10/07/2018 ELISE RIDER MD Ot Z53. 8 PROCEDURE AND TREATMENT NOT CARRIED OUT 10/07/2018 ELISE RIDER MD, Ot Z79. 01 RETIREMENT (CURRENT) USE OF ANTICOAGULANT 10/07/2018 ELISE RIDER MD, Ot Z79.899 OTHER RETIREMENT (CURRENT) DRUG THERAPY 10/07/2018 ELISE RIDER MD, [...] R06.02 SHORTNESS OF BREATH 10/07/2018 KLEVERTAHIR ESTRADA JUICE WEIGHER-C Ot R31 .9 HEMATURIA, UNSPECIFIED 10/07/2018 TAHIR HERNANDEZ JUICE WEIGHER-C Ot Z51.81 ENCOUNTER FOR THERAPEUTIC DRUG LEVEL MON 10/07/2018 TAHIR HERNANDEZ JUICE WEIGHER-C Ot Z79.899 OTHER RETIREMENT (CURRENT) DRUG THERAPY 10/07/2018 DEYA BLANCO MD [...] 10/07/2018 HORTENSIA KLINE MD Ot Z79.899 OTHER RETIREMENT (CURRENT) DRUG THERAPY 10/07/2018 RITO NGUYEN APRN Ot J98.4 OTHER DISORDERS OF LUNG 10/07/2018 BHAVNA JEFFERY APRN Ot K76.0 FATTY (CHANGE OF) LIVER, NOT ELSEWHERE C 10/07/2018 BHAVNA JEFFERY PRODUCTION ZONE LEADER Ot Z53.8 PROCEDURE AND TREATMENT NOT CARRIED [...] ENCNTR SCREEN MAMMOGRAM FOR MALIGNANT NE 10/07/2018 LATIABHAVNA R PRODUCTION ZONE LEADER Ot J90 PLEURAL EFFUSION, NOT ELSEWHERE CLASSIFI 10/07/2018 LATIABHAVNA R PRODUCTION ZONE LEADER Ot K57.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 10/07/2018 LATIABHAVNA R PRODUCTION ZONE LEADER Ot R16.0 HEPATOMEGALY, NOT ELSEWHERE CLASSIFIED 10/07/2018 LATIABHAVNA R PRODUCTION ZONE LEADER Ot R18.8 OTHER ASCITES 10/07/2018 LATIASHERRION R PRODUCTION ZONE LEADER Ot Z90.710 ACQUIRED ABSENCE OF BOTH CERVIX AND UTER 10/07/2018 LATIA BHAVNA R PRODUCTION ZONE LEADER Ot Z95.818 PRESENCE OF OTHER CARDIAC IMPLANTS AND G 10/07/2018 KEKE VINES Ot E78.5 HYPERLIPIDEMIA, UNSPECIFIED 10/07/2018 KEKE VINES Ot I08.3 COMB RHEUMATIC DISORD OF MITRAL, AORTIC 10/07/2018 KEKE VINES Ot I10 ESSENTIAL (PRIMARY) HYPERTENSION 10/07/2018 KEKE VINES Ot I48.0 PAROXYSMAL ATRIAL FIBRILLATION 10/07/2018 KEKE VINES Ot R06.02 SHORTNESS OF BREATH 12/25/2018 BHAVNA JEFFERY R PRODUCTION ZONE LEADER Ot K57.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 12/25/2018 LATIABHAVNA R PRODUCTION ZONE LEADER Ot Z90.49 ACQUIRED ABSENCE OF OTHER SPECIFIED [...] Ot M54. 5 LOW BACK PAIN 12/27/2018 ZUIR OCHOA MD Ot S39.92XA UNSPECIFIED INJURY OF LOWER BACK, INITIA 12/27/2018 ZURI OCHOA MD, Ot Z77. 22 CNTCT W AND EXPSR TO ENVIRON TOBACCO SMO 12/27/2018 ZURI OCHOA MD Ot Z79. 01 LUMBER PRESS OPERATOR (CURRENT) USE OF ANTICOAGULANT 12/27/2018 ZURI OCHOA [...] 12/30/2018 ZURI OCHOA MD Ot Z79. 01 RETIREMENT (CURRENT) USE OF ANTICOAGULANT 12/30/2018 ZURI OCHOA [...] 01/10/2019 ZURI OCHOA MD Ot Z79. 01 LUMBER PRESS OPERATOR (CURRENT) USE OF ANTICOAGULANT 01/10/2019 ZURI OCHOA [...] ACQUIRED ABSENCE OF OTHER SPECIFIED PART 03/19/2019 BULLNDER DO, JALYN S Ot E03.9 HYPOTHYROIDISM, UNSPECIFIED 03/19/2019 ORENDER DO, JALYN S Ot K74.60 UNSPECIFIED CIRRHOSIS OF LIVER 03/19/2019 BULLNDER DO, JALYN S Ot Z90.49 ACQUIRED ABSENCE OF OTHER SPECIFIED PART 03/20/2019 JOYCE BOLTON MD Ot I42.0 DILATED CARDIOMYOPATHY 04/02/2019 BHAVNA JEFFERY APRN Ot K59.00 CONSTIPATION, UNSPECIFIED 04/02/2019 BHAVNA JEFFERY APRN Ot R10.32 LEFT LOWER QUADRANT PAIN 04/08/2019 BULLNDER DO, JALYN S Ot E03.9 HYPOTHYROIDISM, UNSPECIFIED 04/08/2019 ORENDER DO, JALYN S Ot K74.60 UNSPECIFIED CIRRHOSIS OF LIVER 04/08/2019 BULLNDER DO, JALYN S Ot Z90.49 ACQUIRED ABSENCE [...] APRN Ot R06.02 SHORTNESS OF BREATH 04/14/2019 BULLNDER DO JALYN S Ot Z12.31 ENCNTR SCREEN MAMMOGRAM FOR MALIGNANT NE 04/16/2019 BHAVNA JEFFERY PRODUCTION ZONE LEADER Ot K59.00 CONSTIPATION, UNSPECIFIED 04/16/2019 BHAVNA JEFFERY PRODUCTION ZONE LEADER Ot R10.32 LEFT LOWER QUADRANT PAIN 04/19/2019 BULLNDER , JALYN S Ot A04.72 ENTEROCOLITIS D/T CLOSTRIDIUM DIFFICILE, 04/19/2019 BULLNDER EDWIGE VANESSALINE S Ot E87.6 HYPOKALEMIA 04/19/2019 BULLNDER EDWIGE VANESSALINE S Ot F32.9 MAJOR DEPRESSIVE DISORDER, SINGLE EPISOD 04/19/2019 BULLND DO, JALYN S Ot F41.9 ANXIETY DISORDER, UNSPECIFIED 04/19/2019 BULLND DO, JALYN S Ot G47.30 SLEEP APNEA, UNSPECIFIED 04/19/2019 BULLND DO, JALYN S Ot I08.1 RHEUMATIC DISORDERS OF BOTH MITRAL AND T 04/19/2019 EDWIGE DAILY DOLINE S Ot I11.0 HYPERTENSIVE HEART DISEASE WITH HEART FA 04/19/2019 SHARI , JALYN S Ot I13.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 HRT FAIL AND ST 04/19/2019 SHARI , JALYN S Ot I25.10 ATHSCL HEART DISEASE OF [place] CORONARY 04/19/2019 SHARI EDWIGE VANESSALINE S Ot I27.20 PULMONARY HYPERTENSION, UNSPECIFIED 04/19/2019 SHARIER EDWIGE VANESSALINE S Ot I42.9 CARDIOMYOPATHY, UNSPECIFIED 04/19/2019 SHARIER EDWIGE VANESSALINE S Ot I48.0 PAROXYSMAL ATRIAL FIBRILLATION 04/19/2019 SHARI THALIA VANESSAJALYN S Ot I49.5 SICK SINUS SYNDROME 04/19/2019 BULLNDER DO JALYN S Ot I50.22 CHRONIC SYSTOLIC (CONGESTIVE) HEART FAIL 04/19/2019 SHARIER EDWIGE VANESSALINE S Ot I50.9 HEART FAILURE, UNSPECIFIED 04/19/2019 BULLND DO, JALYN S Ot K21.9 GASTRO-ESOPHAGEAL REFLUX DISEASE WITHOUT 04/19/2019 BULLNDER DOTHALIAJALYN S Ot K57.32 DVTRCLI OF LG INT W/O PERFORATION OR ABS 04/19/2019 BULLNDEDWIGE BARNETT DOLINE S Ot M54.9 DORSALGIA, UNSPECIFIED 04/19/2019 BULLNDER EDWIGE VANESSALINE S Ot N18.9 CHRONIC KIDNEY DISEASE, UNSPECIFIED 04/19/2019 BULLNDER EDWIGE VANESSALINE S Ot N28.9 DISORDER OF KIDNEY AND URETER, UNSPECIFI 04/19/2019 BULLNDEDWIGE BARNETT DOLINE S Ot Z23 ENCOUNTER FOR IMMUNIZATION 04/19/2019 JALYN DAILY DO S Ot Z77.22 CNTCT W AND EXPSR TO ENVIRON TOBACCO SMO 04/19/2019 BULLNDEDWIGE BARNETT DOLINE S Ot Z95.810 PRESENCE OF AUTOMATIC (IMPLANTABLE) CARD 04/21/2019 BULLNDEDWIGE BARNETT DOLINE S Ot Z12.31 ENCNTR SCREEN [...] failure Edwige Dailyline S. 09/25/2019 W N18.9 Food Critic ruma kidney disease Edwige Dailyline S. 09/25/2019 W Z00.01 Enc ounter for general adult medical examination with abnormal findings Edwige Dailyline S. 09/25/2019 W Z79.01 Vin g term (current) use of 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 BullndEdwige barnettline S. 09/29/2019 W E78.2 Mixe d hyperlipidemia Edwige Dailyline S. 09/29/2019 W I10 Essent ial (primary) hypertension Edwige Dailyline S. 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 09/29/2019 W N18.9 Food Critic ruma kidney disease BullndEdwige barnettline S. 09/29/2019 W Z00.01 Enc ounter for general adult medical examination with abnormal findings Edwige Dailyline S. 09/29/2019 W Z79.01 Vin g term (current) use of 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 BullndEdwige barnettline S. 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 11/19/2019 W R35.8 Polyuria Bullnder, Jalyn S. 11/19/2019 W R42 Dizzin ess and giddiness Orender, Jalyn S. 11/19/2019 W I95.9 Hypo tension Bullnder, Jalyn S. 11/19/2019 W R35.8 Polyuria Orender, Jalyn S. 11/19/2019 W R42 Dizzin ess and giddiness Orender, Jalyn S. 11/19/2019 W I95.9 Hypo tension Orender, Jalyn S. 11/19/2019 W R35.8 Polyuria Orender, Jalyn S. 11/19/2019 W R42 Dizzin ess and giddiness Orender, Jalyn S. 11/24/2019 W I95.9 Hypo tension Bullnder, Jalyn S. 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 11/24/2019 W I95.9 Hypo tension Jalyn Daily S. 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 01/30/2020 W N39.0 Urin sandra tract infection, site not specified Latia, Bhavna 01/30/2020 W R10.32 Lef t lower quadrant pain Latia, Bhavna 02/02/2020 W N39.0 Urin sandra tract infection, site not specified Latia, Bhavna 02/02/2020 W R10.32 Lef t lower quadrant pain Latia, Bhavna 02/05/2020 W M79.671 Pa in in right foot Latia, Bhavna 02/05/2020 W M79.671 Pa in in right foot Latia, Bhavna 02/05/2020 W M79.671 Pa in in right foot Latia, Bhavna 02/06/2020 EDWIGE DAILY DOLINE S Ot M79.671 PAIN IN RIGHT FOOT 02/06/2020 THALIA DAILY DOQUELINE S Ot Z86.718 PERSONAL HISTORY OF OTHER VENOUS THROMBO Procedures Code Description Performed By Per formed On 66H61CS IN SERTION OF PACEMAKER LEAD INTO RIGHT A 11/09/2016 [id number] IN SERTION OF PACEMAKER LEAD INTO R VENTR 11/09/2016 8HE283M IN SERT PACE. DUAL VIVEK IN CHEST SUBCU/FA 11/09/2016 [id number] DE STRUCTION OF RIGHT LOBE LIVER, OPEN AP 01/07/2018 [id number] RE SECTION OF GALLBLADDER, PERCUTANEOUS E 01/07/2018 [id number] CO NTROL BLEEDING IN GASTROINTESTINAL TRA 01/07/2018 [id number] FL UOROSCOPY OF BILE DUCTS USING LOW [...] mg/dL 1.8-2.4 Automated blood complete blood count (MetaMed mogram) panel - 11/07/16 19:42 Blood leukocytes [...] 2.3 0.8-1.4 Automated blood complete blood count (MetaMed mogram) panel - 11/10/16 03:35 Blood leukocytes [...] NRG Blood ovalocytes detection by light microscopy [facility] Comprehensive metabolic panel - 12/08/16 09:05 Serum [...] culture - 07/07/17 11:30 Bacterial urine culture [id number] NRG COLONY COUNT <10,000 NRG FTX;REPORTABLE SENSITIVITY [...] aureus (MRSA) scr eening culture NEG NRG [id number] - 11/07/17 10:13 Serum or plasma urea [...] Automated blood platelet mean volume measurement 10.1 [[facility]] 7.4-10.4 Automated blood neutrophils/100 leukocytes 57 % [...] COLONY COUNT . NRG FTX;REPORTABLE REPORTED BY [facility] 01/08/18 11:05 NR FREE TEXT ENTRY 2 SUSCEPTIBILITY REPORTED AT 0901-09-18 [facility] FREE TEXT ENTRY 3 [facility] Sensitivity Panel - 01/07/18 06:35 Gentamicin [...] NRG Blood type T Indirect antibody screen me mary - 01/07/18 10:22 ABO+Rh group OP NRG Transfusion band number [id number] NRG Blood group antibody screen NEGATIVE NR G [facility] PLASMA - 01/07/18 10:22 FRESH FROZEN PLASMA TRANSFUSE D 01/07/18 2109 NRG RED CELLS LEUKO REDUCED AS1 - 01/07/18 1 0:22 RED CELLS LEUKO REDUCED AS1 N OT AVAILABLE NRG Blood type T Indirect antibody screen [facility] - 01/07/18 10:22 ABO+Rh group OP NRG Transfusion band number [id number] NRG Blood group antibody screen NEGATIVE NR G Whole blood hemoglobin and hematocrit [facility] - 01/07/18 14:54 Venous blood hemoglobin measurement [...] Blood ovalocytes detection by light microscopy [facility] NRG Blood toxic granules detection by [...] - 04/14/19 19:42 Bacterial blood culture NG [facility] Bacterial blood culture - 04/14/19 19:59 Bacterial blood culture NG [facility] Complete blood count (CBC) with automate d [...] MARTINEZ WHITE RN 04/17/19 8:[address] [facility] RESULTS INDETERMINANT; MOLECULAR TEST TO FOLLOW NR [...] 07/14/2019 11:46:48 07/14/2019 23:59:5 9 CLS Outpatient [id number] 02/05/2020 12:38:00 23:59:59 CLS Outpatient JALYN DAILY DO [facility] RAD R FOOT PAIN AND SWELLING,HX CLOTS [id number] 10/03/2019 14:31:00 020 23:59:59 [facility] Outpatient JALYN DAILY DO [facility] LABNPT I48.2,I10 [id number] 04/24/2019 14:47:00 019 23:59:59 [facility] Outpatient JALYN DAILY DO [facility] RAD SCREENING [id number] 04/14/2019 21:00:00 11:10:00 DIS Inpatient THALIA DAILY DOQUELINE S [facility] 4TH DIVERTICULITIS- FAILURE OF OUTPATIENT TREATMENT [id number] 03/27/2019 15:00:00 23:59:59 CLS Outpatient LATIASHERRI ALEJANDROON R [employer] [facility] RAD LLQ ABD PAIN [id number] 03/17/2019 09:00:00 23:59:59 CLS Outpatient JOYCE BOLTON MD [facility] LAB DILATED CARDIOM YOPATHY [id number] 03/17/2019 08:57:00 23:59:59 CLS Outpatient DION VANESSARASHMI [facility] LAB K74.60 [id number] 03/17/2019 08:54:00 23:59:59 CLS Outpatient DAPHNE VANESSAJALYN S [facility] RAD LIVER CIRRHOSIS [id number] 12/27/2018 12:31:00 23:59:59 CLS Outpatient LATIA, BHAVNA R [employer] [facility] RAD LOW BACK PAIN [id number] 12/27/2018 08:51:00 23:59:59 CLS Preadmit DYLAN JEFFERYYSON R [employer] LEADER [facility] RAD BACK PAIN [id number] 12/27/2018 04:20:00 05:00:00 DIS Emergency ZURI OCHOA MD [facility] ER BACK PAIN [id number] 12/25/2018 12:49:00 23:59:59 CLS Outpatient SHERRI JEFFERYON R [employer] [facility] RAD LOW BACK PAIN [id number] 07/08/2018 09:33:00 14:20:00 DIS Emergency KWAME QUEEN MD [facility] ER SOB [id number] 06/30/2018 18:10:00 14:30:00 DIS Inpatient POLLACK , ELLIS V [facility] 4TH A-FIB,RVR,CHF [id number] 06/13/2018 08:57:00 23:59:59 CLS Outpatient MARICRUZ VINES [facility] CARD A-FIB,TAYLOR,H TN,SOB [id number] 06/07/2018 07:05:00 10:39:00 DIS Outpatient Breanne RANGEL MD [facility] CATH A-FIB [id number] 04/25/2018 08:08:00 14:22:00 DIS Outpatient Breanne RANGEL MD [facility] CATH CARDIOMYOPATHY [id number] 04/17/2018 17:30:00 13:30:00 DIS Inpatient JALYN DAILY DO S [facility] 4TH FLUID OVERLOAD [id number] 04/17/2018 10:42:00 23:59:59 CLS Outpatient BHAVNA JEFFERY [employer] LE[employer] [facility] RAD ABD PAIN/SWELLI NG [id number] 04/12/2018 10:29:00 23:59:59 CLS Outpatient JALYN DAILY DO [facility] RAD SCREENING [id number] 03/15/2018 11:51:00 14:46:00 DIS Emergency ZIYAD BUNN [employer] [facility] ER AMS [id number] 03/13/2018 06:34:00 10:25:00 DIS Outpatient VÍCTOR ZARATE MD [facility] SDC BLADDER TUMOR [id number] 03/11/2018 09:30:00 23:59:59 CLS Preadmit RITO NGUYEN [employer] LEADER [facility] PULM J98.4 RESTRICIT VE LUNG DISEASES [id number] 12/10/2017 09:05:00 09/02/2 018 00:01:00 DIS Outpatient RITO NGUYEN [employer] LE[employer]ER [facility] PULM J98.4 RESTRICIT VE LUNG DISEASES [id number] 03/06/2018 05:48:00 018 09:59:00 DIS Outpatient VÍCTOR ZARATE MD [facility] PREOP BLADDER TUMOR [id number] 02/26/2018 10:16:00 018 23:59:59 CLS Preadmit ORENDER , JALYN S [facility] RAD SCREENING [id number] 02/04/2018 07:49:00 018 23:59:59 CLS Outpatient BHAVNA JEFFERY [employer] LE[employer]ER [facility] RAD FATTY LIVER [id number] 01/11/2018 11:08:00 018 11:50:00 DIS Inpatient JAKI VANESSA, ELLIS [facility] 4TH SWB UTI,SEVERE SEPSIS,L IVER DISFUNCTION [id number] 01/07/2018 08:15:00 018 10:59:00 DIS Inpatient JERROD KUMARI, MARCO A Avilez [facility] 4TH UTI,SEVERE SEPSIS,LIVER DISFUNCTION [id number] 11/13/2017 10:11:00 018 23:59:59 CLS Outpatient RITO NGUYEN [employer] LE[employer]ER [facility] LAB J98.4 [id number] 11/07/2017 11:45:00 018 23:59:59 CLS Preadmit RITO NGUYEN [employer]ODUCTION [employer] LEADER [facility] RT FSA [id number] 11/07/2017 10:10:00 018 23:59:59 CLS Outpatient RITO NGUYEN [employer] LEADER [facility] RAD R06.09 TAYLOR [id number] 10/19/2017 09:16:00 018 23:59:59 CLS Outpatient HORTENSIA KLINE MD [facility] RT TYPICAL ATRIAL FLUTTER [id number] 09/25/2017 11:37:00 018 23:59:59 CLS Outpatient FRANCIS KUMARI, DEYA R [facility] RAD ACUTE GENERALIZED ABD P AIN [id number] 09/12/2017 06:54:00 018 13:44:00 DIS Outpatient ELISE RIDER MD [facility] ABNORMAL STREES TEST,CP ,CAD [id number] 09/03/2017 08:13:00 018 23:59:59 CLS Outpatient MARICRUZ VINES [facility] CARD I48.0 ATRIA L FIBRILLATION [id number] 08/29/2017 08:33:00 018 23:59:59 CLS Outpatient MARICRUZ VINES [facility] RAD I48.0 ATRIA L FIBRILLATION [id number] 07/07/2017 11:25:00 017 23:59:59 CLS Outpatient TAHIR HERNANDEZ JUICE WEIGHER-C [facility] LAB HEMATURIA [id number] 02/22/2017 10:52:00 017 23:59:59 CLS Outpatient COLTHCATHIE HESTER DO A [facility] RAD SCREENING [id number] 02/21/2017 07:36:00 017 23:59:59 CLS Outpatient ELISE RIDER MD [facility] CATH AFIB,HTN,SOB [id number] 01/26/2017 11:24:00 017 13:25:00 DIS Outpatient SHAYNA DHILLON MD [facility] ENDO HISTORY COLITIS, POLYPS [id number] 01/24/2017 05:38:00 017 12:51:00 DIS Outpatient SHAYNA DHILLON MD [facility] PREOP HX COLITIS/POLYPS [id number] 12/08/2016 11:44:00 017 11:30:00 DIS Inpatient ELLIS POLLACK DO, [facility] 4TH C-DIFF COLITIS,ABDOMINA L PAIN [id number] 11/07/2016 19:15:00 10:25:00 DIS Outpatient ELISE RIDER MD [facility] AFIB [id number] 10/31/2016 14:07:00 017 16:57:00 DIS Emergency JOYCE KIM DO [facility] ER IRR HEART RATE [id number] 10/04/2016 11:09:00 17:45:00 DIS Outpatient ELISE RIDER MD [facility] AFIB,.HTN,CAD [id number] 02/07/2016 08:37:00 016 23:59:59 CLS Outpatient MARICRUZ VINES [facility] CARD A FIB,HTN,H LP,HSVT [id number] 02/04/2016 09:01:00 016 23:59:59 CLS Outpatient ELISE RIDER MD [facility] AFIB,DYSPNEA,HTN [id number] 11/15/2015 14:42:00 016 23:59:59 CLS Outpatient DEYA BLANCO MD [facility] RAD SCREENING [id number] 02/05/2015 10:53:00 015 00:01:00 DIS Outpatient HORTENSIA KLINE MD [facility] CARD PAF [id number] 02/04/2015 13:55:00 015 23:59:59 CLS Outpatient YULI SAMPSON DC [facility] RAD THORACIC PAIN [id number] 11/13/2014 10:22:00 015 23:59:59 CLS Outpatient DEYA BLANCO MD [facility] RAD SCREENING [id number] 05/13/2014 08:37:00 014 15:00:00 DIS Outpatient ELISE RIDER MD [facility] AFIB,DYSPNEA,HTN,HLP [id number] 03/18/2014 07:57:00 014 23:59:59 CLS Outpatient DEYA BLANCO MD [facility] RAD GASTROINTESTIONAL UPSET ABDOMINAL PAIN [id number] 01/06/2014 09:50:00 23:59:59 CLS Outpatient MARICRUZ VINES [facility] CARD HTN,PVC [id number] 08/15/2013 10:08:00 00:01:00 DIS Outpatient MARICRUZ VINES [facility] CARD HTN,HLP,PAL P [id number] 11/11/2013 14:18:00 23:59:59 CLS Outpatient DEYA BLANCO MD [facility] RAD SCREENING [id number] 08/20/2013 08:46:00 23:59:59 CLS Outpatient ADRY KUMARI, ELISE Sosa [facility] CATH ABNORMAL STRESS, HTN,SOB,HLP,PALPITAIONS,OBESITY [id number] 08/18/2013 07:26:00 23:59:59 CLS Outpatient MARICRUZ VINES [facility] RAD HTN,HLP,PAL P [id number] 05/27/2013 12:01:00 16:05:00 DIS Outpatient SARAI TOBIAS DO [facility] SDC HISTORY DIVERTICULITIS [id number] 05/21/2013 09:30:00 23:59:59 CLS Outpatient SARAI TOBIAS DO [facility] PREOP HISTORY OF DIVERTICULIT ITS [id number] 03/17/2013 12:02:00 13:35:00 DIS Inpatient DEYA BLANCO MD [facility] 4TH DIVERTICULITIS [id number] 11/18/2012 16:15:00 23:59:59 CLS Outpatient DEYA BLANCO MD [facility] RAD R HIP PAIN [id number] 02/10/2020 15:22:[address] Inpatient JALYN DAILY DO [facility] 4TH ELEVATED PT/INR [id number] 02/10/2020 07:47:[address] Outpatient BAHVNA JEFFERY APRN [facility] RAD PAIN IN RIGHT FOOT [id number] 02/22/2018 07:31:00 Document Registration [id number] 03/24/2014 12:01:00 Document Registration [id number] 11/14/2013 10:00:00 Document Registration [id number] 10/15/2012 09:41:00 Document Registration [id number] 03/29/2012 15:37:00 Document Registration [id number] 03/01/2012 08:29:00 Document Registration [id number] 03/03/2011 14:09:00 Document Registration [id number] 12/26/2010 05:40:00 Document Registration [id number] 12/22/2010 15:38:00 Document Registration
[2020-02-10 17:45] VITALS: BP 100/66
[2020-02-10 18:10] VITALS: BP 116/72
[2020-02-10] MEDS ORDERED: TEMAZEPAM 15 MG (RESTORIL) CAP PO PRN (18:30)
[2020-02-10] MEDS ORDERED: ACETAMINOPHEN 325 MG TABLET PO PRN (18:30)
[2020-02-10] MEDS ORDERED: diphenhydrAMINE 25 MG TAB (BENADRYL) PO PRN (19:15)
[2020-02-10] MEDS ORDERED: COLCHICINE 0.6 MG (COLCRYS) TABLET PO NR (19:15)
[2020-02-10] MEDS ORDERED: diphenhydrAMINE 25 MG TAB (BENADRYL) PO NR (19:15)
[2020-02-10] MEDS ORDERED: ONDANSETRON 4 MG/2 ML (SDV) Z0FRAN IVP PRN (19:15)
[2020-02-10] MEDS ORDERED: methylPREDNISolone 125 MG (Solu-MEDROL) VIAL IVP NR (19:15)
--- NOTE | 2020-02-10 19:25 | History & Physical ---
History of Present Illness History of Present Illness Reason for visit/HPI This is 69 year old female with a history of recent gout who had lab done which showed an elevated PT/INR and elevated creatinine. She had a recent UTI as well and had noticed a small amount of blood when she wiped but was uncertain whether it was coming from her urine or rectum. Her urine was negative for blood or infection and her CT scan of the abodmen and pelvis showed no evidence of diverticulitis. She will be admitted for FFP and IVF rehydration. Date of Admission Feb 10, 2020 at 15:22 Date Seen by a Provider: Feb 10, 2020 Time Seen by a Provider: 19:17 I consulted on this patient on 02/10/20 19:16 Attending Physician Jalyn Daily DO Admitting Physician Jalyn Daily DO Consult Allergies and Home Medications Allergies Coded Allergies: rosuvastatin (Unverified Allergy, Mild, 03/06/18) sacubitril (Verified Allergy, Mild, RASH, 07/01/18) PATIENT HAS ITCHING FROM MEDICATION valsartan (Verified Allergy, Mild, RASH, 07/01/18) PATIENT HAS ITCHING FROM MEDICATION Sulfa (Sulfonamide Antibiotics) (Verified Allergy, Unknown, 03/06/18) fentanyl (Verified Adverse Reaction, Unknown, Vomiting, 04/14/19) Home Medications Acetaminophen 500 Mg Tablet, 500-1,000 MG PO Q6H PRN for PAIN-MILD, (Reported) Amiodarone HCl 200 Mg Tablet, 200 MG PO DAILY, (Reported) Bumetanide 1 Mg Tablet, 1 MG PO 0900,1800, (Reported) Carvedilol 6.25 Mg Tablet, 6.25 MG PO 0900,1800, (Reported) Colestipol HCl 1 Gm Tablet, 1 GM PO 1200,2000, (Reported) Lactobacillus Acidophilus/Pect 1 Each Capsule, 2 EACH PO TIDWM Prescribed by: JALYN DAILY on 04/18/19 1012 Levothyroxine Sodium 25 Mcg Tablet, 25 MCG PO DAILY, (Reported) Losartan Potassium 25 Mg Tablet, 25 MG PO DAILY, (Reported) Ondansetron HCl 4 Mg Tablet, 4 MG PO Q4H Prescribed by: JALYN DAILY on 04/18/19 1018 Pantoprazole Sodium 40 Mg Tablet.dr, 40 MG PO DAILY, (Reported) Pantoprazole Sodium 40 Mg Tablet.dr, 40 MG PO 1800 PRN for HEARTBURN, (Reported) Potassium Chloride 8 Meq Capsule.er, 8 MEQ PO DAILY@0700 Prescribed by: JALYN DAILY on 04/18/19 1012 Spironolactone 25 Mg Tablet, 25 MG PO 0900,1800, (Reported) Temazepam 15 Mg Capsule, 15-30 MG PO HS PRN for SLEEP, (Reported) Warfarin Sodium 5 Mg Tablet, 5 MG PO TuFr, (Reported) Warfarin Sodium 5 Mg Tablet, 2.5 MG PO SuMoWeThSa, (Reported) TAKES 1/2 (5MG) TABLET [Vancomycin Oral Suspension] 60 ML SOLN, 2.5 ML PO Q6H Prescribed by: JALYN DAILY on 04/18/19 1012 Patient Home Medication List Home Medication List Reviewed: Yes Past Vzzdsid-Ijqnmd-Ddqrgs Hx Past Med/Social Hx: Reviewed Nursing Past Med/Soc Hx Patient Social History Marrital Status: Employed/Student: retired Alcohol Use: Denies Use Number of Drinks Today: II Alcohol Beverage of Choice: Wine, Other Recreational Drug Use: No Smoking Status: Never a Smoker 2nd Hand Smoke Exposure: Yes Recent Foreign Travel: No Contact w/other who traveled: No Recent Hopitalizations: No (JANUARY 2018-GALLBLADDER X 1 WEEK) Recent Infectious Disease Expo: No Immunizations Up To Date Tetanus Booster (TDap): Less than 5yrs Pediatric: No Date of Pneumonia Vaccine: Aug 12, 2017 Date of Influenza Vaccine: Mar 27, 2019 Seasonal Allergies Seasonal Allergies: No Past Medical History Surgeries: Bladder Surgery, Breast, Cardiac, Defibrillator, Gallbladder, Hysterectomy, Oophorectomy, Pacemaker Respiratory: Sleep Apnea Currently Using CPAP: Yes (at night) Currently Using BIPAP: No Cardiac: Atrial Fibrillation, Cardiomyopathy, Coronary Artery Disease, Hypertension, Irregular Heartbeat, Valvular Heart Disease Reproductive: No (X1 MISCARRIAGE) Sexually Transmitted Disease: No HIV/AIDS: No Hysterectomy, Menopausal Genitourinary: UTI-Chronic Gastrointestinal: Gastroesophageal Reflux, Liver Disease/Jaundice, Diverticulosis, Polyps, C-Diff Musculoskeletal: Chronic Back Pain Loss of Vision: Bilateral Hearing Impairment: Denies Psychosocial: Anxiety, Depression History of Blood Disorders: No Adverse Reaction to Blood Cancino: No (HAS HAD BLOOD WITH NO REACTIION) Family History Reviewed Nursing Family Hx Heart Disease, CAD Under 55 Years Old Review of Systems Constitutional: weakness EENTM: No see HPI, No no symptoms reported, No ear discharge, No hearing loss, No ear pain, No blurred vision, No double vision, No eye pain, No tearing, No vision loss, No dental problems, No hoarseness, No mouth pain, No mouth swelling, No epistaxis, No nose congestion, No nose pain, No throat pain, No throat swelling, No other Respiratory: No no symptoms reported, No see HPI, No cough, No dyspnea on exertion, No hemoptysis, No orthopnea, No phlegm, No short of breath, No stridor, No wheezing, No other Cardiovascular: No no symptoms reported, No see HPI, No chest pain, No edema, No Hx of Intervention, No palpitations, No syncope, No vascular heart diseas, No other Gastrointestinal: abdominal pain, diarrhea Genitourinary: No no symptoms reported, No see HPI, No decreased output, No discharge, No dysuria, No frequency, No hematuria, No hesitancy, No incontinence, No nocturia, No pain, No other Musculoskeletal: joint pain (right foot) Psychiatric/Neurological: Anxiety, Weakness Physical Exam Vital Signs Vital Signs - First Documented 02/10/20 12:55 Temp 36.3 Pulse 71 Resp 18 B/P (MAP) 104/50 (68) Pulse Ox 98 Capillary Refill : Less Than 3 Seconds Height, Weight, BMI Height: 4'11.00" Weight: 130lbs. 14.4oz. 58.405714hn; 29.95 BMI Method:Stated General Appearance: Mild Distress HEENT: Normal ENT Inspection Neck: Supple Respiratory: Lungs Clear Cardiovascular: Systolic Murmur, Gallop/S4, Irregularly Irregular Gastrointestinal: Normal Bowel Sounds, Non Tender, Soft Rectal: Deferred Back: No CVA Tenderness Extremity: Non Tender, No Calf Tenderness, No Pedal Edema Neurologic/Psychiatric: Alert, Oriented x3 Skin: Warm/Dry, Ecchymosis (right lateral foot) Comments Laboratory Tests 02/10/20 13:05: White Blood Count 13.8H, Red Blood Count 4.26L, Hemoglobin 12.2, Hematocrit 37, Mean Corpuscular Volume 88, Mean Corpuscular Hemoglobin 29, Mean Corpuscular Hemoglobin Concent 33, Red Cell Distribution Width 14.2, Platelet Count 358, Mean Platelet Volume 9.1, Neutrophils (%) (Auto) 80H, Lymphocytes (%) (Auto) 12, Monocytes (%) (Auto) 8, Eosinophils (%) (Auto) 0, Basophils (%) (Auto) 0, Neutrophils # (Auto) 11.0H, Lymphocytes # (Auto) 1.7, Monocytes # (Auto) 1.0, Eosinophils # (Auto) 0.1, Basophils # (Auto) 0.0, Prothrombin Time 59.6*H, INR Comment 6.9*H, Activated Partial Thromboplast Time 70H, Sodium Level 137, Potassium Level 4.0, Chloride Level 101, Carbon Dioxide Level 24, Anion Gap 12, Blood Urea Nitrogen 42H, Creatinine 1.74H, Estimat Glomerular Filtration Rate 29, BUN/Creatinine Ratio 24, Glucose Level 133H, Calcium Level 8.4L, Corrected Calcium 8.4L, Total Bilirubin 0.5, Aspartate Amino Transf (AST/SGOT) 29, Alanine Aminotransferase (ALT/SGPT) 121H, Alkaline Phosphatase 136, Total Protein 7.0, Albumin 4.0 02/10/20 13:25: Urine Color YELLOW, Urine Clarity CLEAR, Urine pH 5.5, Urine Specific [place] 1.010L, Urine Protein NEGATIVE, Urine Glucose (UA) NEGATIVE, Urine Ketones NEGATIVE, Urine Nitrite NEGATIVE, Urine Bilirubin NEGATIVE, Urine Urobilinogen 0.2, Urine Leukocyte Esterase 1+H, Urine RBC (Auto) NEGATIVE, Urine RBC RARE, Urine WBC 2-5, Urine Squamous Epithelial Cells RARE, Urine Crystals NONE, Urine Bacteria TRACE, Urine Casts NONE, Urine Mucus NEGATIVE, Urine Culture Indicated YES Assessment/Plan Assessment and Plan 1. Elevated PT/INR with gross hematuria vs hemotochezia--admit and give 2u FFP and monitor for any signs of acute bleeding, repeat PT/INR in AM 2. Acute on Chronic Renal Insufficiency with dehydration--hydrate and monitor BUN/Cr 3. Acute Gout of Right Foot--Colchicine dose and IV solumedrol 4. Recent UTI--culture urine, hold on further abx until urine culture results back 5. Generalized Malaise/Fatigue/Weakness--multifactorial 6. Chronic Atrial Fibrillation--resume amiodarone, coumdin on hold due to elevated PT/INR 7. Hypotension--hold coreg tonight and hydrate and monitor BP Admission Diagnosis Admission Status: Inpatient Order (span 2 midnights) Reason for Inpatient Admission: Will need FFP, IVFs, monitoring of Cr and PT/INR as well as treatment of gout Clinical Quality Measures DVT/VTE Risk/Contraindication: Risk Factor Score Per Nursin RFS Level Per Nursing on Admit: 2=Moderate JALYN DAILY DO Feb 10, 2020 19:25
[2020-02-10 19:56] VITALS: BP 104/64
[2020-02-10] MEDS: HYDROcodone/APAP 10 MG/325 MG (LORTAB) TAB PO PRN (20:12)
[2020-02-10] MEDS: AMIODARONE 200 MG (CORDARONE) TAB PO SCH (20:13)
[2020-02-11] VITALS: BP 133/64
[2020-02-11] MEDS: HYDROcodone/APAP 10 MG/325 MG (LORTAB) TAB PO PRN ×2 (00:52→06:12)
--- NOTE | 2020-02-11 01:07 | NUR ---
pt has recieved 2 units of ffp. no reactions noted
[2020-02-11 04:00] VITALS: BP 119/72
[2020-02-11] MEDS: NS IV 1000 ML 1,000 ML IV SCH ×2 (06:12→08:07)
[2020-02-11 06:19] LABS: BASOPHILS % (AUTO) 0 % (0-10); EOSINOPHILS % (AUTO) 0 % (0-10); HEMATOCRIT 33 % (35-52); HEMOGLOBIN 10.5 G/DL (11.5-16.0); LYMPHOCYTES # (AUTO) 0.7 X 10^3 (1.0-4.0); LYMPHOCYTES % (AUTO) 8 % (12-44); MEAN CORPUSCULAR HEMOGLOBIN 28 PG (25-34); MEAN CORPUSCULAR HGB CONC 32 G/DL (32-36); MEAN CORPUSCULAR VOLUME 90 FL (80-99); MEAN PLATELET VOLUME 9.4 FL (7.4-10.4); MONOCYTES # (AUTO) 0.1 X 10^3 (0.0-1.0); MONOCYTES % (AUTO) 1 % (0-12); NEUTROPHILS # (AUTO) 8.8 X 10^3 (1.8-7.8); NEUTROPHILS % (AUTO) 92 % (42-75); PLATELET COUNT 282 10^3/uL (130-400); RED CELL DISTRIBUTION WIDTH 14.7 % (10.0-14.5); WHITE BLOOD COUNT 9.5 10^3/uL (4.3-11.0)
[2020-02-11 06:36] LABS: INR 2.5 (0.8-1.4); PROTHROMBIN TIME PATIENT 27.1 SEC (12.2-14.7)
[2020-02-11 06:41] LABS: ALBUMIN 3.7 GM/DL (3.2-4.5); BILIRUBIN,TOTAL 0.3 MG/DL (0.1-1.0); CALCIUM 8.2 MG/DL (8.5-10.1); CREATININE SERUM 1.41 MG/DL (0.60-1.30); POTASSIUM 4.9 MMOL/L (3.6-5.0); TOTAL PROTEIN 6.6 GM/DL (6.4-8.2)
[2020-02-11 06:53] LABS: HYPOCHROMASIA SLIGHT; LYMPHOCYTES % (MANUAL) 9 %; MONOCYTES % (MANUAL) 1 %; NEUTROPHILS % (MANUAL) 90 %
[2020-02-11 08:00] VITALS: BP 122/75
[2020-02-11] MEDS: AMIODARONE 200 MG (CORDARONE) TAB PO SCH (08:05)
[2020-02-11] MEDS ORDERED: COLCHICINE 0.6 MG (COLCRYS) TABLET PO SCH (09:00)
[2020-02-11] MEDS ORDERED: PANTOPRAZOLE 40 MG (PROTONIX) TAB PO SCH (09:00)
[2020-02-11] MEDS ORDERED: LOSA25TA41 PO (11:11)
[2020-02-11] MEDS ORDERED: HYDR-3812 PO (11:11)
[2020-02-11] MEDS ORDERED: DIPH1TAB25 PO (11:11)
[2020-02-11] MEDS ORDERED: ONDA4TAB11 PO (11:11)
[2020-02-11] MEDS ORDERED: POTA10CA43 PO ×2 (11:11)
[2020-02-11] MEDS ORDERED: COLE1TAB PO (11:11)
[2020-02-11] MEDS ORDERED: DOCU100C37 PO (11:13)
[2020-02-11] MEDS ORDERED: BIFI10.5 PO (11:13)
[2020-02-11] MEDS ORDERED: BACI1TAB2 PO (11:13)
--- NOTE | 2020-02-11 11:34 | NUR ---
SPOKE WITH THE PT, WENT THRU THE EXT MED HISTORY AND CALLED [facility] TO COMPLETE THE MED REC PROTONIX 40MG- TAKES 1 TAB DAILY BUT WILL TAKE 1 TAB IN THE EVENING IF NEEDED- THIS WAS LAST FILLED 07-12-2019 #180, I DID DOCUMENT THE PAST DUE FILL ON THE MED REC LOSARTAN 25MG- TAKES 1 TAB AM AND CAN TAKE ANOTHER TAB IF HER BP IS NOT CONTROLLED COLESTIPOL 1GM-TAKES 1 TAB BID BUT CAN TAKE AN ADDITIONAL TAB IF NEEDED WARFARIN 5MG WAS LAST FILLED 10-03-2019 #30- I DID DOCUMENT THE PAST DUE FILL ON THE MED REC OTC MEDS: ALIGN DIGESTIVE ADVANTAGE STOOL SOFTENER PRN TYLENOL PRN
[2020-02-11 11:35] VITALS: BP 123/73
[2020-02-11] MEDS ORDERED: methylPREDNISolone 125 MG (Solu-MEDROL) VIAL IVP ONE (12:30)
[2020-02-11] MEDS ORDERED: HYDR-3820 PO (12:42)
[2020-02-11] MEDS ORDERED: PRD20T PO (12:42)
[2020-02-11] MEDS ORDERED: ALLO100T PO (12:42)
[2020-02-11 14:12] VITALS: BP 123/73
[2020-02-12] VITALS: BP 147/74
--- NOTE | 2020-02-16 08:47 | Physician Query-Final Dx ---
Final Diagnosis Give Final Diagnosis Please give Final Diagnosis ANTHONY FONSECA Feb 16, 2020 08:47
== END 2020-02-12 14:02 | disposition home or self-care (01) ==
LOC: EDUNIT# 12:47 → ER 12:48 → 4TH 15:22 → INTOOBSV 15:22 → 4TH 15:24
PROVIDERS: ADMIT Family Medicine; ATTEND Family Medicine
DX: R31.0 Gross hematuria (principal); R79.1 Abnormal coagulation profile; K57.92 Diverticulitis of intestine, part unspecified, without perforation or abscess without bleeding; N39.0 Urinary tract infection, site not specified; I42.9 Cardiomyopathy, unspecified; I48.91 Unspecified atrial fibrillation; I25.10 Atherosclerotic heart disease of native coronary artery without angina pectoris; G89.29 Other chronic pain; M54.5 Low back pain; K21.9 Gastro-esophageal reflux disease without esophagitis; F41.9 Anxiety disorder, unspecified; F32.9 Major depressive disorder, single episode, unspecified; N18.9 Chronic kidney disease, unspecified; I13.10 Hypertensive heart and chronic kidney disease without heart failure, with stage 1 through stage 4 chronic kidney disease, or unspecified chronic kidney disease; N17.9 Acute kidney failure, unspecified; M10.9 Gout, unspecified; Z79.899 Other long term (current) drug therapy; Z88.2 Allergy status to sulfonamides; Z88.8 Allergy status to other drugs, medicaments and biological substances; Z90.710 Acquired absence of both cervix and uterus
CPT/HCPCS: 74176; 80053 ×2; 81000; 85007; 85025; 85027; 85610 ×2; 85730 ×2; 86850; 86900; 86901; 87088; 87186; 96374; 99284; P9017; 36415

== ENCOUNTER → 2020-02-10 | Outpatient (CLI) | payer MEDICARE, OTHER ==
[~2020-02-10] MED LIST changes: +ALLO100T PO; +BACI1TAB2 PO; +BIFI10.5 PO; +DIPH1TAB25 PO; +DOCU100C37 PO; +HYDR-3812 PO; +HYDR-3820 PO; +PRD20T PO
--- NOTE | 2020-02-10 08:49 | Diagnostic Imaging Report ---
INDICATION: Pain to 2nd through 4th metatarsals right foot. FINDINGS: 3 views. There are no fractures or dislocation. Articulating surfaces are smooth. Joint spaces are well-maintained. Mild arthritic disease noted through the interphalangeal joints and 1st MP joint. IMPRESSION: Degenerative arthritic changes with no acute abnormalities. Dictated by: Dictated on workstation # [id number]
== END ==
LOC: RAD 07:47
PROVIDERS: ATTEND Nurse Practitioner Family
DX: M19.071 Primary osteoarthritis, right ankle and foot (principal)
CPT/HCPCS: 73630

== ENCOUNTER → 2020-04-26 | Outpatient (CLI) | payer MEDICARE, OTHER ==
[~2020-04-26] MED LIST changes: +ALLO100T PO; +BACI1TAB2 PO; +BIFI10.5 PO; +DIPH1TAB25 PO; +DOCU100C37 PO; +HYDR-3820 PO; -PANT40TA3 PO; +PANT40TA52 PO; +PRD20T PO; -WARF2.5T82; +WRF2.5T
--- NOTE | 2020-04-26 20:40 | Diagnostic Imaging Report ---
INDICATION: Digital mammogram bilateral screening. This study was compared to the prior exam of 04/24/2019, 04/12/2018 and 02/22/2017. At this time, there are no current complaints. The current study was also evaluated with a Computer Aided Detection (CAD) system. FINDINGS: The breasts are predominantly fatty. When compared to the prior study, there has been no significant change. There is no primary or secondary sign of malignancy noted. The left-sided pacemaker seen on the prior study is partially visualized on this exam. IMPRESSION: There is no evidence of malignancy. ACR BI-RADS Category 1: Negative. Result letter will be mailed to the patient. Note: At least 10% of breast cancer is not imaged by mammography. Dictated by: Dictated on workstation # [id number]
== END ==
LOC: RAD 10:00
PROVIDERS: ATTEND Nurse Practitioner Family
DX: Z12.31 Encounter for screening mammogram for malignant neoplasm of breast (principal)
CPT/HCPCS: 77063; 77067

== ENCOUNTER 2020-08-20 10:46 | Inpatient (IN) | payer MEDICARE, OTHER ==
[~2020-08-20] VITALS: Ht 149.9 cm; Wt 60.6 kg
[~2020-08-20 10:46] MED LIST changes: -AMIO200T4 PO; +AMIO200T6 PO; -CIPR500T4 PO; +CIPR500T5 PO; +ESCI-2; -ESCI10TA55; +ESCI20TA39 PO; -ESCI20TA45 PO
[2020-08-20 11:06] LABS: BASOPHILS % (AUTO) 0 % (0-10); EOSINOPHILS # (AUTO) 0.1 10^3/uL (0.0-0.3); EOSINOPHILS % (AUTO) 0 % (0-10); HEMATOCRIT 36 % (35-52); HEMOGLOBIN 11.7 g/dL (11.5-16.0); LYMPHOCYTES # (AUTO) 1.2 10^3/uL (1.0-4.0); LYMPHOCYTES % (AUTO) 10 % (12-44); MEAN CORPUSCULAR HEMOGLOBIN 29 pg (25-34); MEAN CORPUSCULAR HGB CONC 32 g/dL (32-36); MEAN CORPUSCULAR VOLUME 92 fL (80-99); MEAN PLATELET VOLUME 9.5 fL (9.0-12.2); MONOCYTES # (AUTO) 0.5 10^3/uL (0.0-1.0); MONOCYTES % (AUTO) 4 % (0-12); NEUTROPHILS # (AUTO) 10.3 10^3/uL (1.8-7.8); NEUTROPHILS % (AUTO) 86 % (42-75); PLATELET COUNT 266 10^3/uL (130-400)
[2020-08-20 11:20] LABS: BILIRUBIN,URINE NEGATIVE (NEGATIVE); CLARITY,URINE CLEAR; COLOR,URINE YELLOW; GLUCOSE, URINE (UA) NEGATIVE (NEGATIVE); KETONES,URINE NEGATIVE (NEGATIVE); LEUKOCYTE ESTERASE ,URINE TRACE (NEGATIVE); NITRITE,URINE NEGATIVE (NEGATIVE); PROTEIN,URINE NEGATIVE (NEGATIVE)
[2020-08-20 11:20] LABS: ALBUMIN 4.4 GM/DL (3.2-4.5)
[2020-08-20 11:21] LABS: CALCIUM 8.8 MG/DL (8.5-10.1)
[2020-08-20 11:23] LABS: TOTAL PROTEIN 7.7 GM/DL (6.4-8.2)
[2020-08-20 11:24] LABS: BILIRUBIN,TOTAL 0.8 MG/DL (0.1-1.0)
[2020-08-20 11:26] LABS: CREATININE SERUM 1.59 MG/DL (0.60-1.30)
[2020-08-20 11:30] LABS: BACTERIA,URINE TRACE /HPF; SQUAMOUS EPITHELIAL CELL,UR 0-2 /HPF
[2020-08-20] MEDS ORDERED: PIPERACILLIN SODIUM/TAZOBACTAM 4.5 GM in NS (IVPB) 100 ML IV ONE (11:30)
[2020-08-20] MEDS ORDERED: fentaNYL INJECTION 100 MCG/2 ML AMP IVP ONE (11:30)
[2020-08-20] MEDS ORDERED: LACTATED RINGERS 1,000 ML IV ONE (11:30)
[2020-08-20] MEDS ORDERED: ONDANSETRON 4 MG/2 ML (SDV) Z0FRAN IVP ONE ×2 (11:30→13:30)
--- NOTE | 2020-08-20 12:31 | ED Abdominal Pain ---
General Chief Complaint: Abdominal/GI Problems Stated Complaint: DIVERTICULITIS Nursing Triage Note: ARRIVED VIA AMB TO ROOM 06 WITH COMPLAINTS OF LEFT LOWER ABD PAIN AND NAUSEA SINCE SUNDAY. WAS SEEN ON SUNDAY AND TODAY AND DR DAILY WANTED TO ADMIT HER BUT THE PT THOUGHT SHE COULD COME HERE FOR SOME MEDS AND GO HOME. Sepsis Screen: No Definite Risk Source of Information: Patient Exam Limitations: No Limitations History of Present Illness Date Seen by Provider: Aug 20, 2020 Time Seen by Provider: 11:10 Initial Comments Patient presents ER by private conveyance chief complaint for the past for 5 days been treated outpatient with antibiotics for diverticulitis. She feels like is getting worse now she is having nausea and her Zofran is not helping. She started having worsening diarrhea and feels a little dry. Primary care by Dr. Daily. Moderate tenderness in her left upper quadrant and left lower quadrant. She is having increasing belching. Typically takes pantoprazole but has not been using it lately. Allergies and Home Medications Allergies Coded Allergies: rosuvastatin (Unverified Allergy, Mild, 03/06/18) sacubitril (Verified Allergy, Mild, RASH, 07/01/18) PATIENT HAS ITCHING FROM MEDICATION valsartan (Verified Allergy, Mild, RASH, 07/01/18) PATIENT HAS ITCHING FROM MEDICATION Sulfa (Sulfonamide Antibiotics) (Verified Allergy, Unknown, 03/06/18) fentanyl (Verified Adverse Reaction, Unknown, Vomiting, 04/14/19) Home Medications Allopurinol 100 Mg Tablet, 100 MG PO HS Prescribed by: FARHAT DAILY on 02/11/20 1242 Amiodarone HCl 200 Mg Tablet, 200 MG PO DAILY, (Reported) Bacillus Coagulans 1 Each Tab.chew, 2 EACH PO HS, (Reported) Bifidobacterium Infantis 10.5 Mg Tab.chew, 10.5 MG PO DAILY, (Reported) Bumetanide 1 Mg Tablet, 1 MG PO BID, (Reported) Carvedilol 6.25 Mg Tablet, 6.25 MG PO BID, (Reported) Colestipol HCl 1 Gm Tablet, 1 GM PO DAILY PRN for DIARRHEA, (Reported) Diphenoxylate HCl/Atropine 1 Each Tablet, 1 EA PO Q4H PRN for DIARRHEA, ( Reported) Docusate Sodium 100 Mg Capsule, 100 MG PO DAILY PRN for CONSTIPATION-1ST LINE, (Reported) Hydrocodone/Acetaminophen 1 Each Tablet, 1 EACH PO Q4H Prescribed by: FARHAT DAILY on 02/11/20 1242 Losartan Potassium 25 Mg Tablet, 25 MG PO DAILY PRN for BLOOD PRESSURE, (Report ed) Ondansetron 4 Mg Tab.rapdis, 4 MG PO Q6H PRN for NAUSEA/VOMITING-1ST LINE, (Reported) Pantoprazole Sodium 40 Mg Tablet.dr, 40 MG PO DAILY, (Reported) LAST FILLED 07-12-2019 #180 Pantoprazole Sodium 40 Mg Tablet.dr, 40 MG PO 1800 PRN for HEARTBURN, (Reported) Potassium Chloride 10 Meq Capsule.er, 10 MEQ PO SUN,,SUN,SAT, (Reported) TAKES 1 CAP ON SUN,SUN,,SAT TAKES 2 CAPS ON SUN,SUN,SUN Potassium Chloride 10 Meq Capsule.er, 20 MEQ PO SUN,SUN,SUN, (Reported) TAKES 1 CAP ON SUN,SUN,,SAT TAKES 2 CAPS ON SUN,SUN,SUN Prednisone 20 Mg Tab, 20 MG PO BID Take 1 tab twice a day for 3 days then 1 tab daily for 3 days Prescribed by: FARHAT DAILY on 02/11/20 1242 Spironolactone 25 Mg Tablet, 25 MG PO BID, (Reported) Temazepam 15 Mg Capsule, 15-30 MG PO HS PRN for SLEEP, (Reported) Warfarin Sodium 5 Mg Tablet, 5 MG PO ,SUN,FR, (Reported) LAST FILLED 10-03-2019 #30 TAKES 5MG ON SUN,SUN,FR TAKES 2.5MG ON SUN,SUN,SUN,SAT Warfarin Sodium 5 Mg Tablet, 2.5 MG PO SUN,SUN,SUN,SAT, (Reported) LAST FILLED 10-03-2019 #30 -TAKES 1/2 (5MG) TABLET TAKES 5MG ON SUN,SUN,FR TAKES 2.5MG ON SUN,SUN,SUN,SAT Patient Home Medication List Home Medication List Reviewed: Yes Review of Systems Review of Systems Constitutional: No chills, No fever EENTM: No Blurred Vision, No Double Vision Respiratory: Denies Cough, Denies Shortness of Air Cardiovascular: Denies Lightheadedness Gastrointestinal: See HPI, Abdomen Distended, Abdominal Pain; Denies Constipated; Diarrhea, Nausea, Poor Fluid Intake; Denies Vomiting Genitourinary: Denies Burning, Denies Discharge Musculoskeletal: No back pain, No joint pain All Other Systems Reviewed Negative Unless Noted: Yes Past Sopkmsa-Qrrdxm-Bskyze Hx Patient Social History Alcohol Use: Denies Use Alcohol Beverage of Choice: Wine, Other 2nd Hand Smoke Exposure: Yes Recent Infectious Disease Expo: No Recent Hopitalizations: No (JANUARY 2018-GALLBLADDER X 1 WEEK) Immunizations Up To Date Tetanus Booster (TDap): Less than 5yrs PED Vaccines UTD: No Date of Pneumonia Vaccine: Aug 12, 2017 Date of Influenza Vaccine: Mar 27, 2019 Seasonal Allergies Seasonal Allergies: No Past Medical History Surgeries: Yes Bladder Surgery, Breast, Cardiac, Defibrillator, Gallbladder, Hysterectomy, Oophorectomy, Pacemaker Respiratory: Yes Sleep Apnea Currently Using CPAP: Yes (at night) Currently Using BIPAP: No Cardiac: Yes Atrial Fibrillation, Cardiomyopathy, Coronary Artery Disease, Hypertension, Irregular Heartbeat, Valvular Heart Disease Neurological: No Reproductive Disorders: No (X1 MISCARRIAGE) [employer] History: 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 ZARATE) UTI-Chronic Gastrointestinal: Yes Gastroesophageal Reflux, Liver Disease/Jaundice, Diverticulosis, Polyps, C-Diff Musculoskeletal: Yes Chronic Back Pain Endocrine: No HEENT: Yes (left eye problem with vision) Loss of Vision: Bilateral Hearing Impairment: Denies Cancer: No Psychosocial: Yes Anxiety, Depression Integumentary: No Blood Disorders: No Adverse Reaction/Blood Tranf: No (HAS HAD BLOOD WITH NO REACTIION) Family Medical History Heart Disease, CAD Under 55 Years Old Physical Exam Vital Signs Vital Signs - First Documented 08/20/20 10:50 Temp 36.4 Pulse 81 Resp 16 B/P (MAP) 130/72 (91) Pulse Ox 96 O2 Delivery Room Air Capillary Refill : Less Than 3 Seconds Height/Weight/BMI Height: 4'11.00" Weight: 130lbs. 14.4oz. [id number]; 26.00 BMI Method:Stated General Appearance: WD/WN, moderate distress HEENT: PERRL/EOMI, pharynx normal Neck: full range of motion, normal inspection Respiratory: lungs clear, normal breath sounds, no respiratory distress, no accessory muscle use Cardiovascular: normal peripheral pulses, regular rate, rhythm Gastrointestinal: normal bowel sounds, soft, no pulsatile mass, tenderness Extremities: normal range of motion, non-tender, normal capillary refill Neurologic/Psychiatric: alert, normal mood/affect, oriented x 3 Skin: normal color, warm/dry Procedures/Interventions Date of ETT Placement: Jan 07, 2018 Progress/Results/Core Measures Results/Orders Lab Results Laboratory Tests Test 08/20/20 10:55 08/20/20 11:11 Range/Units White Blood Count 12.0 H 4.3-11.0 10^3/uL Red Blood Count 3.98 3.80-5.11 10^6/uL Hemoglobin 11.7 11.5-16.0 g/dL Hematocrit 36 35-52 % Mean Corpuscular Volume 92 80-99 fL Mean Corpuscular Hemoglobin 29 25-34 pg Mean Corpuscular Hemoglobin Concent 32 32-36 g/dL Red Cell Distribution Width 14.3 10.0-14.5 % Platelet Count 266 130-400 10^3/uL Mean Platelet Volume 9.5 9.0-12.2 fL Immature Granulocyte % (Auto) 0 % Neutrophils (%) (Auto) 86 H 42-75 % Lymphocytes (%) (Auto) 10 L 12-44 % Monocytes (%) (Auto) 4 0-12 % Eosinophils (%) (Auto) 0 0-10 % Basophils (%) (Auto) 0 0-10 % Neutrophils # (Auto) 10.3 H 1.8-7.8 10^3/uL Lymphocytes # (Auto) 1.2 1.0-4.0 10^3/uL Monocytes # (Auto) 0.5 0.0-1.0 10^3/uL Eosinophils # (Auto) 0.1 0.0-0.3 10^3/uL Basophils # (Auto) 0.0 0.0-0.1 10^3/uL Immature Granulocyte # (Auto) 0.0 0.0-0.1 10^3/uL Sodium Level 135 135-145 MMOL/L Potassium Level 4.0 3.6-5.0 MMOL/L Chloride Level 96 L 98-107 MMOL/L Carbon Dioxide Level 27 21-32 MMOL/L Anion Gap 12 5-14 MMOL/L Blood Urea Nitrogen 22 H 7-18 MG/DL Creatinine 1.59 H 0.60-1.30 MG/DL Estimat Glomerular Filtration Rate 32 BUN/Creatinine Ratio 14 Glucose Level 104 70-105 MG/DL Calcium Level 8.8 8.5-10.1 MG/DL Corrected Calcium 8.5 8.5-10.1 MG/DL Total Bilirubin 0.8 0.1-1.0 MG/DL Aspartate Amino Transf (AST/SGOT) 85 H 5-34 U/L Alanine Aminotransferase (ALT/SGPT) 102 H 0-55 U/L Alkaline Phosphatase 151 H 40-136 U/L C-Reactive Protein High Sensitivity 4.40 H 0.00-0.50 MG/DL Total Protein 7.7 6.4-8.2 GM/DL Albumin 4.4 3.2-4.5 GM/DL Urine Color YELLOW Urine Clarity CLEAR Urine pH 7.0 5-9 Urine Specific [place] <=1.005 1.016-1.022 Urine Protein NEGATIVE NEGATIVE Urine Glucose (UA) NEGATIVE NEGATIVE Urine Ketones NEGATIVE NEGATIVE Urine Nitrite NEGATIVE NEGATIVE Urine Bilirubin NEGATIVE NEGATIVE Urine Urobilinogen 0.2 < = 1.0 MG/DL Urine Leukocyte Esterase TRACE H NEGATIVE Urine RBC (Auto) NEGATIVE NEGATIVE Urine RBC NONE /HPF Urine WBC 2-5 /HPF Urine Squamous Epithelial Cells 0-2 /HPF Urine Crystals NONE /LPF Urine Bacteria TRACE /HPF Urine Casts NONE /LPF Urine Mucus NEGATIVE /LPF Urine Culture Indicated NO My Orders Orders - ZURI OCHOA Cbc With Automated Diff (08/20/20 11:01) Comprehensive Metabolic Panel (08/20/20 11:01) Hs C Reactive Protein (08/20/20 11:01) Ua Culture If Indicated (08/20/20 11:01) Fentanyl Injection (Sublimaze Injection (08/20/20 11:30) Lactated Ringers (Lr 1000 Ml Iv Solution (08/20/20 11:30) Piperacillin Sodium/Tazobactam (Zosyn Vi (08/20/20 11:30) Ondansetron Injection (Zofran Injectio (08/20/20 11:30) Ct Abdomen/Pelvis Wo (08/20/20 11:26) Pantoprazole Injection (Protonix Injecti (08/20/20 12:45) Medications Given in ED Current Medications Medications Dose Ordered Sig/Allie Route Start Time Stop Time Status Last Admin Dose Admin Fentanyl Citrate 25 mcg ONCE ONCE IVP 08/20/20 11:30 08/20/20 11:32 DC 08/20/20 11:55 25 MCG Lactated Ringer's 1,000 ml @ 0 mls/hr Q0M ONCE IV 08/20/20 11:30 08/20/20 11:32 DC 08/20/20 11:55 1,000 MLS/HR Ondansetron HCl 4 mg ONCE ONCE IVP 08/20/20 11:30 08/20/20 11:32 DC 08/20/20 11:55 4 MG Pantoprazole 40 mg ONCE ONCE IV 08/20/20 12:45 08/20/20 12:46 DC 08/20/20 13:03 40 MG Piperacillin Sod/ Tazobactam Sod 4.5 gm/Sodium Chloride 100 ml @ 200 mls/hr ONCE ONCE IV 08/20/20 11:30 08/20/20 11:59 DC 08/20/20 12:06 200 MLS/HR Vital Signs/I&O 08/20/20 10:50 Temp 36.4 Pulse 81 Resp 16 B/P (MAP) 130/72 (91) Pulse Ox 96 O2 Delivery Room Air Blood Pressure Mean: 91 Progress Progress Note : Time: 12:54 Progress Note Concern for possible bowel obstruction related to her symptoms or perforation. We will get a CT. Because of her acute kidney injury secondary to dehydration I will do a noncontrast CT. Labs and vitals reveal sepsis. We have discussed w ith her that she has failed outpatient therapy and should initiate IV antibiotics inpatient and she is okay with this. Diagnostic Imaging Diagonstic Imaging: CT (Without IV) Plain Films/CT/US/NM/MRI: abdomen, pelvis Comments [facility] [place], [place] NAME: ISAC [facility] REC#: [id number] PT STATUS: REG ER : 1950 PHYSICIAN: ZURI OCHOA MD ADMIT DATE: 08/20/20/ER Draft Date of Exam:08/20/20 CT ABDOMEN/PELVIS WO PROCEDURE: CT abdomen and pelvis without contrast. TECHNIQUE: Multiple contiguous axial images were obtained through the abdomen and pelvis without the use of intravenous contrast. Auto Exposure Controls were utilized during the CT exam to meet ALARA standards for radiation dose reduction. INDICATION: Left lower quadrant pain COMPARISON: The study correlated with abdominal pelvic CT 02/10/2020 FINDINGS: There is extensive sigmoid diverticulosis. Lateral to the junction mid to distal thirds of the sigmoid colon there is mild hazy induration and increased density of the perisigmoidal fat. This is new from prior and while it could reflect some scarring from a previous episode of diverticulitis, its interdevelopment in the setting of left lower quadrant pain is suspicious for mild changes of acute diverticulitis. No abscess, obstruction or perforation. No pathological extraluminal air collection is found. The gallbladder absent. The liver, bile ducts, spleen, adrenals, pancreas unremarkable. There are no radiopaque kidney stones. There is no hydroureteronephrosis. There is no bowel obstruction. There is no ascites. IMPRESSION: 1. Severe chronic sigmoid diverticulosis however mild perisigmoidal induration in the left lower quadrant of the pelvis is suspicious for subtle changes of mild acute diverticulitis without obstruction, abscess or perforation. 2. No other potential acute finding. Nonfocal unobstructed urinary tracts. Dictated on workstation # [id number] Dict: 08/20/20 1257 Trans: 08/20/20 1304 [facility] [id number] Interpreted by: NADYA COLEMAN Electronically signed by: Reviewed: Reviewed by Me Departure Communication (Admissions) Time/Spoke to Admitting Phy: 12:35 Discussed the case with Dr. Daily and she agrees to admit the patient for diverticulitis and sepsis. She agrees with CT scan to rule out small bowel obstruction or perforation. She states she did offer the patient a direct admit however the patient really did not want to stay in the hospital secondary to concerns that she might catch COVID-19. Impression Primary Impression: Diverticulitis of intestine Qualified Codes: K57.32 - Diverticulitis of large intestine without perforation or abscess without bleeding Additional Impression: Sepsis Qualified Codes: A41.9 - Sepsis, unspecified organism; R65.20 - Severe sepsis without septic shock; N17.9 - Acute kidney failure, unspecified Disposition: ADMITTED INPATIENT Condition: Stable Admissions Decision to Admit Reason: Admit from ER (General) Decision to Admit/Date: Aug 20, 2020 Time/Decision to Admit Time: 12:00 Departure-Patient Inst. Referrals: FARHAT DAILY DO (PCP/Family) Primary Care Physician ZURI OCHOA Aug 20, 2020 12:31
[2020-08-20] MEDS ORDERED: PANTOPRAZOLE 40 MG (PROTONIX) VIAL IV ONE (12:45)
--- NOTE | 2020-08-20 13:05 | Diagnostic Imaging Report ---
PROCEDURE: CT abdomen and pelvis without contrast. TECHNIQUE: Multiple contiguous axial images were obtained through the abdomen and pelvis without the use of intravenous contrast. Auto Exposure Controls were utilized during the CT exam to meet ALARA standards for radiation dose reduction. INDICATION: Left lower quadrant pain COMPARISON: The study correlated with abdominal pelvic CT 02/10/2020 FINDINGS: There is extensive sigmoid diverticulosis. Lateral to the junction mid to distal thirds of the sigmoid colon there is mild hazy induration and increased density of the perisigmoidal fat. This is new from prior and while it could reflect some scarring from a previous episode of diverticulitis, its interdevelopment in the setting of left lower quadrant pain is suspicious for mild changes of acute diverticulitis. No abscess, obstruction or perforation. No pathological extraluminal air collection is found. The gallbladder absent. The liver, bile ducts, spleen, adrenals, pancreas unremarkable. There are no radiopaque kidney stones. There is no hydroureteronephrosis. There is no bowel obstruction. There is no ascites. IMPRESSION: 1. Severe chronic sigmoid diverticulosis however mild perisigmoidal induration in the left lower quadrant of the pelvis is suspicious for subtle changes of mild acute diverticulitis without obstruction, abscess or perforation. 2. No other potential acute finding. Nonfocal unobstructed urinary tracts. Dictated by: Dictated on workstation # [id number]
[2020-08-20 13:38] VITALS: BP 133/78
[2020-08-20] MEDS ORDERED: ACETAMINOPHEN 325 MG TABLET PO PRN (14:00)
[2020-08-20] MEDS ORDERED: CATHETER FLUSH 10 ML SYR IV PRN (14:00)
[2020-08-20] MEDS: LACTATED RINGERS 1,000 ML IV SCH ×2 (14:47→21:14)
[2020-08-20] MEDS: fentaNYL INJECTION 100 MCG/2 ML AMP IV PRN (14:47)
[2020-08-20] MEDS: ONDANSETRON 4 MG/2 ML (SDV) Z0FRAN IV PRN ×2 (15:08→21:06)
[2020-08-20] MEDS ORDERED: AMOX1TAB11 PO (15:37)
[2020-08-20] MEDS ORDERED: LEVO25CA4 PO (15:37)
[2020-08-20] MEDS ORDERED: COLE1TAB PO (15:37)
[2020-08-20] MEDS ORDERED: WRF2.5T PO (15:37)
[2020-08-20] MEDS ORDERED: ALLO100T PO (15:37)
[2020-08-20] MEDS ORDERED: MELA5TAB14 PO (15:37)
[2020-08-20] MEDS ORDERED: MELA10TA2 PO (15:45)
[2020-08-20 16:04] VITALS: BP 127/61
[2020-08-20] MEDS: PIPERACILLIN/TAZO 4.5 GM/NS 100 ML IV SCH ×2 (17:40)
[2020-08-20 20:01] VITALS: BP 112/59
[2020-08-21] VITALS (8 sets, daily range): BP systolic 108–154; BP diastolic 55–83
[2020-08-21] MEDS: fentaNYL INJECTION 100 MCG/2 ML AMP IV PRN (00:20)
[2020-08-21] MEDS ORDERED: SCOPOLAMINE 1.5 MG (TRANSDERM-SCOP) PATCH ONE (00:22)
[2020-08-21] MEDS ORDERED: ONDANSETRON 4 MG/2 ML (SDV) Z0FRAN IV PRN (00:30)
[2020-08-21] MEDS ORDERED: SCOPOLAMINE 1.5 MG (TRANSDERM-SCOP) PATCH TD ONE (00:30)
[2020-08-21] MEDS: PIPERACILLIN/TAZO 4.5 GM/NS 100 ML IV SCH ×6 (01:03→17:15)
[2020-08-21] MEDS ORDERED: PROMETHAZINE INJ 25 MG/ML (PHENERGAN) AMP ONE (02:19)
[2020-08-21] MEDS ORDERED: LORazepam INJ 2 MG/ML (ATIVAN) VIAL IVP PRN (02:30)
[2020-08-21] MEDS ORDERED: PROMETHAZINE INJ 25 MG/ML (PHENERGAN) AMP IVP PRN (02:30)
[2020-08-21] MEDS: LACTATED RINGERS 1,000 ML IV SCH ×3 (03:40→20:12)
[2020-08-21 06:19] LABS: BASOPHILS % (AUTO) 0 % (0-10); EOSINOPHILS % (AUTO) 0 % (0-10); HEMATOCRIT 32 % (35-52); HEMOGLOBIN 10.1 g/dL (11.5-16.0); LYMPHOCYTES % (AUTO) 12 % (12-44); MEAN CORPUSCULAR HEMOGLOBIN 30 pg (25-34); MEAN CORPUSCULAR HGB CONC 32 g/dL (32-36); MEAN CORPUSCULAR VOLUME 92 fL (80-99); MONOCYTES # (AUTO) 0.4 10^3/uL (0.0-1.0); MONOCYTES % (AUTO) 5 % (0-12); NEUTROPHILS # (AUTO) 7.1 10^3/uL (1.8-7.8); NEUTROPHILS % (AUTO) 82 % (42-75); PLATELET COUNT 207 10^3/uL (130-400); WHITE BLOOD COUNT 8.7 10^3/uL (4.3-11.0)
[2020-08-21 06:42] LABS: ALBUMIN 3.6 GM/DL (3.2-4.5); POTASSIUM 3.9 MMOL/L (3.6-5.0)
[2020-08-21 06:44] LABS: CALCIUM 8.4 MG/DL (8.5-10.1)
[2020-08-21 06:45] LABS: TOTAL PROTEIN 6.2 GM/DL (6.4-8.2)
[2020-08-21 06:47] LABS: BILIRUBIN,TOTAL 0.9 MG/DL (0.1-1.0)
[2020-08-21 06:49] LABS: CREATININE SERUM 1.29 MG/DL (0.60-1.30)
--- NOTE | 2020-08-21 10:04 | History & Physical ---
History of Present Illness History of Present Illness Reason for visit/HPI This is a 70 year old female with a history of diverticulitis. She was being treated as an outpatient for a diverticulitis flare up but started having diarrhea from the antibiotics so she started taking immodium and then she became constipated and started having intractable nausea and vomiting. She was seen in my office and it was felt she needed admission to rule out bowel obstruction vs perforation. However, the patient did not want to go to the hospital due to COVID-19 concerns. She did agree to evaluation in the emergency room to rule out bowel obstruction or perforation. She was found to have an elevated WBC count of 12,000 with elevated BUN/Cr and elevated LFTs. Her CT scan of the abdomen and pelvis showed mild diverticulitis but due to ongoing nausea and vomiting despite IV antiemetics it was felt she would need admission for IV antibiotics, IVFs and pain control and well as IV antiemetics. Date of Admission Aug 20, 2020 at 12:50 Date Seen by a Provider: Aug 21, 2020 Time Seen by a Provider: 09:59 I consulted on this patient on 08/21/20 09:59 Attending Physician Jalyn Serna DO Admitting Physician Jalyn Serna DO Consult Allergies and Home Medications Allergies Coded Allergies: rosuvastatin (Unverified Allergy, Mild, 03/06/18) sacubitril (Verified Allergy, Mild, RASH, 07/01/18) PATIENT HAS ITCHING FROM MEDICATION valsartan (Verified Allergy, Mild, RASH, 07/01/18) PATIENT HAS ITCHING FROM MEDICATION Sulfa (Sulfonamide Antibiotics) (Verified Allergy, Unknown, 03/06/18) fentanyl (Verified Adverse Reaction, Unknown, Vomiting, 04/14/19) Home Medications Allopurinol 100 Mg Tablet, 100 MG PO HS, (Reported) Amiodarone HCl 200 Mg Tablet, 200 MG PO DAILY, (Reported) Amoxicillin/Potassium Clav 1 Each Tablet, 1 EA PO BID, (Reported) FILLED 08-16-2020 #20/10 DAY SUPPLY Bumetanide 1 Mg Tablet, 1 MG PO BID, (Reported) Carvedilol 6.25 Mg Tablet, 3.125 MG PO BID, (Reported) TAKES OF A 6.25MG TAB Colestipol HCl 1 Gm Tablet, 1 GM PO 0900, (Reported) Colestipol HCl 1 Gm Tablet, 1 GM PO 2000 PRN for DIARRHEA, (Reported) Diphenoxylate HCl/Atropine 1 Each Tablet, 1 EA PO Q4H PRN for DIARRHEA, (Reported) Levothyroxine Sodium 25 Mcg Capsule, 25 MCG PO DAILY BEFORE BREAKFA, (Reported) Losartan Potassium 25 Mg Tablet, 12.5 MG PO 1800, (Reported) Melatonin 10 Mg Tablet, 10 MG PO HS, (Reported) Ondansetron 4 Mg Tab.rapdis, 4 MG PO Q6H PRN for NAUSEA/VOMITING-1ST LINE, (Reported) Pantoprazole Sodium 40 Mg Tablet.dr, 40 MG PO 1800 PRN for HEARTBURN, (Reported) Spironolactone 25 Mg Tablet, 25 MG PO TID, (Reported) Warfarin Sodium 2.5 Mg Tablet, 2.5 MG PO 1800, (Reported) Patient Home Medication List Home Medication List Reviewed: Yes Past Qcczmvw-Dnolkh-Xzeszl Hx Past Med/Social Hx: Reviewed Nursing Past Med/Soc Hx Patient Social History Marrital Status: Alcohol Use: Denies Use Alcohol Beverage of Choice: Wine, Other Recreational Drug Use: No Smoking Status: Never a Smoker 2nd Hand Smoke Exposure: Yes Recent Foreign Travel: No Contact w/other who traveled: No Recent Hopitalizations: No (JANUARY 2018-GALLBLADDER X 1 WEEK) Recent Infectious Disease Expo: No Immunizations Up To Date Tetanus Booster (TDap): Less than 5yrs Pediatric: No Date of Pneumonia Vaccine: Aug 12, 2017 Date of Influenza Vaccine: Mar 27, 2019 Seasonal Allergies Seasonal Allergies: No Past Medical History Surgeries: Bladder Surgery, Breast, Cardiac, Defibrillator, Gallbladder, Hysterectomy, Oophorectomy, Pacemaker Respiratory: Sleep Apnea Currently Using CPAP: Yes (at night) Currently Using BIPAP: No Cardiac: Atrial Fibrillation, Cardiomyopathy, Coronary Artery Disease, Hypertension, Irregular Heartbeat, Valvular Heart Disease Reproductive: No (X1 MISCARRIAGE) Sexually Transmitted Disease: No HIV/AIDS: No Hysterectomy, Menopausal Genitourinary: UTI-Chronic Gastrointestinal: Gastroesophageal Reflux, Liver Disease/Jaundice, Di verticulosis, Polyps, C-Diff Musculoskeletal: Chronic Back Pain Loss of Vision: Bilateral Hearing Impairment: Denies Psychosocial: Anxiety, Depression History of Blood Disorders: No Adverse Reaction to Blood Cancino: No (HAS HAD BLOOD WITH NO REACTIION) Family History Heart Disease, CAD Under 55 Years Old Review of Systems Constitutional: weakness EENTM: No see HPI, No no symptoms reported, No ear discharge, No hearing loss, No ear pain, No blurred vision, No double vision, No eye pain, No tearing, No vision loss, No dental problems, No hoarseness, No mouth pain, No mouth swelling, No epistaxis, No nose congestion, No nose pain, No throat pain, No throat swelling, No other Respiratory: No no symptoms reported, No see HPI, No cough, No dyspnea on exertion, No hemoptysis, No orthopnea, No phlegm, No short of breath, No stridor, No wheezing, No other Cardiovascular: No no symptoms reported, No see HPI, No chest pain, No edema, No Hx of Intervention, No palpitations, No syncope, No vascular heart diseas, No other Gastrointestinal: abdominal pain (LLQ), constipation, diarrhea, loss of appetite, nausea, vomiting Genitourinary: decreased output Musculoskeletal: muscle weakness Skin: No no symptoms reported, No see HPI, No change in color, No change in hair/nails, No dryness, No hx of skin cancer, No lesions, No lumps, No pruritus, No rash, No other Psychiatric/Neurological: Anxiety, Weakness Physical Exam Vital Signs Vital Signs - First Documented 08/20/20 10:50 Temp 36.4 Pulse 81 Resp 16 B/P (MAP) 130/72 (91) Pulse Ox 96 O2 Delivery Room Air Capillary Refill : Less Than 3 Seconds Height, Weight, BMI Height: 4'11.00" Weight: 130lbs. 14.4oz. [id number]; 26.96 BMI Method:Stated General Appearance: No Apparent Distress HEENT: Normal ENT Inspection Neck: Supple Respiratory: Lungs Clear Cardiovascular: Regular Rate, Rhythm, Systolic Murmur Gastrointestinal: Normal Bowel Sounds, Soft, Tenderness (epigastric and LLQ) Rectal: Deferred Back: No CVA Tenderness Extremity: Non Tender, No Calf Tenderness, No Pedal Edema Neurologic/Psychiatric: Alert, Oriented x3 Skin: Warm/Dry Comments Laboratory Tests 08/20/20 10:55: White Blood Count 12.0H, Red Blood Count 3.98, Hemoglobin 11.7, Hematocrit 36, Mean Corpuscular Volume 92, Mean Corpuscular Hemoglobin 29, Mean Corpuscular Hemoglobin Concent 32, Red Cell Distribution Width 14.3, Platelet Count 266, Mean Platelet Volume 9.5, Immature Granulocyte % (Auto) 0, Neutrophils (%) (Auto) 86H, Lymphocytes (%) (Auto) 10L, Monocytes (%) (Auto) 4, Eosinophils (%) (Auto) 0, Basophils (%) (Auto) 0, Neutrophils # (Auto) 10.3H, Lymphocytes # (Auto) 1.2, Monocytes # (Auto) 0.5, Eosinophils # (Auto) 0.1, Basophils # (Auto) 0.0, Immature Granulocyte # (Auto) 0.0, Sodium Level 135, Potassium Level 4.0, Chloride Level 96L, Carbon Dioxide Level 27, Anion Gap 12, Blood Urea Nitrogen 22H, Creatinine 1.59H, Estimat Glomerular Filtration Rate 32, BUN/Creatinine Ratio 14, Glucose Level 104, Calcium Level 8.8, Corrected Calcium 8.5, Total Bilirubin 0.8, Aspartate Amino Transf (AST/SGOT) 85H, Alanine Aminotransferase (ALT/SGPT) 102H, Alkaline Phosphatase 151H, C-Reactive Protein High Sensitivity 4.40H, Total Protein 7.7, Albumin 4.4 08/20/20 11:11: Urine Color YELLOW, Urine Clarity CLEAR, Urine pH 7.0, Urine Specific [place] <=1.005, Urine Protein NEGATIVE, Urine Glucose (UA) NEGATIVE, Urine Ketones NEGATIVE, Urine Nitrite NEGATIVE, Urine Bilirubin NEGATIVE, Urine Urobilinogen 0.2, Urine Leukocyte Esterase TRACEH, Urine RBC (Auto) NEGATIVE, Urine RBC NONE, Urine WBC 2-5, Urine Squamous Epithelial Cells 0-2, Urine Crystals NONE, Urine Bacteria TRACE, Urine Casts NONE, Urine Mucus NEGATIVE, Urine Culture Indicated NO 08/20/20 14:14: Lactic Acid Level 1.37 08/21/20 05:14: White Blood Count 8.7, Red Blood Count 3.42L, Hemoglobin 10.1L, Hematocrit 32L, Mean Corpuscular Volume 92, Mean Corpuscular Hemoglobin 30, Mean Corpuscular Hemoglobin Concent 32, Red Cell Distribution Width 14.3, Platelet Count 207, Mean Platelet Volume 10.0, Immature Granulocyte % (Auto) 1, Neutrophils (%) (Auto) 82H, Lymphocytes (%) (Auto) 12, Monocytes (%) (Auto) 5, Eosinophils (%) (Auto) 0, Basophils (%) (Auto) 0, Neutrophils # (Auto) 7.1, Lymphocytes # (Auto) 1.0, Monocytes # (Auto) 0.4, Eosinophils # (Auto) 0.0, Basophils # (Auto) 0.0, Immature Granulocyte # (Auto) 0.1, Sodium Level 137, Potassium Level 3.9, Chloride Level 103, Carbon Dioxide Level 24, Anion Gap 10, Blood Urea Nitrogen 13, Creatinine 1.29, Estimat Glomerular Filtration Rate 41, BUN/Creatinine Ratio 10, Glucose Level 107H, Calcium Level 8.4L, Corrected Calcium 8.7, Total Bilirubin 0.9, Aspartate Amino Transf (AST/SGOT) 78H, Alanine Aminotransferase (ALT/SGPT) 118H, Alkaline Phosphatase 112, Total Protein 6.2L, Albumin 3.6, Prothrombin Time [Pending], INR Comment [Pending], Amylase Level [Pending], Lipase [Pending] Assessment/Plan Assessment and Plan 1. Acute Diverticulitis with failed outpatient treatment--admit for gut rest, IV antibiotics, IV pain control, did discuss seeing her GI doctor after this and discussing possible surgical consult for sigmoid resection due to recurrent diverticulitis 2. Acute on Chronic Renal Insufficiency--BUN/Cr improving with IVFs 3. Intractable Nausea and Vomiting--was ongoing until this morning when scopolamine patch and IV phenergan were added 4. Paroxysmal Atrial Fibrillation--check PT/INR and resume coumadin dosing 5. Elevated LFTs--improving with treatment, will check pancreatic enzymes as well 6. Anxiety--add alprazolam prn Admission Diagnosis Admission Status: Inpatient Order (span 2 midnights) Reason for Inpatient Admission: Will need IVFs and IV abx for at least 48hrs JALYN SERNA DO Aug 21, 2020 10:04
[2020-08-21 10:09] LABS: INR 3.1 (0.8-1.4); PROTHROMBIN TIME PATIENT 31.9 SEC (12.2-14.7)
[2020-08-21 10:13] LABS: AMYLASE 34 U/L (25-125); LIPASE 11 U/L (8-78)
[2020-08-22] MEDS: PIPERACILLIN/TAZO 4.5 GM/NS 100 ML IV SCH ×6 (02:48→16:57)
[2020-08-22 05:16] LABS: BASOPHILS % (AUTO) 0 % (0-10); EOSINOPHILS # (AUTO) 0.1 10^3/uL (0.0-0.3); EOSINOPHILS % (AUTO) 1 % (0-10); HEMATOCRIT 33 % (35-52); HEMOGLOBIN 10.6 g/dL (11.5-16.0); LYMPHOCYTES # (AUTO) 1.8 10^3/uL (1.0-4.0); LYMPHOCYTES % (AUTO) 20 % (12-44); MEAN CORPUSCULAR HEMOGLOBIN 30 pg (25-34); MEAN CORPUSCULAR HGB CONC 32 g/dL (32-36); MEAN CORPUSCULAR VOLUME 93 fL (80-99); MEAN PLATELET VOLUME 9.6 fL (9.0-12.2); MONOCYTES # (AUTO) 0.6 10^3/uL (0.0-1.0); MONOCYTES % (AUTO) 6 % (0-12); NEUTROPHILS # (AUTO) 6.5 10^3/uL (1.8-7.8); NEUTROPHILS % (AUTO) 72 % (42-75); PLATELET COUNT 223 10^3/uL (130-400); WHITE BLOOD COUNT 9.1 10^3/uL (4.3-11.0)
[2020-08-22 05:29] LABS: INR 2.7 (0.8-1.4); PROTHROMBIN TIME PATIENT 28.8 SEC (12.2-14.7)
[2020-08-22] MEDS: LACTATED RINGERS 1,000 ML IV SCH (06:02)
[2020-08-22 07:55] LABS: ALBUMIN 3.6 GM/DL (3.2-4.5); BILIRUBIN,TOTAL 0.8 MG/DL (0.1-1.0); CALCIUM 8.6 MG/DL (8.5-10.1); CREATININE SERUM 1.13 MG/DL (0.60-1.30); POTASSIUM 3.9 MMOL/L (3.6-5.0); TOTAL PROTEIN 6.3 GM/DL (6.4-8.2)
[2020-08-22 08:00] VITALS: BP 136/60
[2020-08-22] MEDS ORDERED: NON-FORMULARY MEDICATION 1 EA EA (Levothyroxine Sodium (Levothyroxine) 25 MCG) PO SCH (10:00)
[2020-08-22] MEDS ORDERED: RX-DIPHENO./ATROP. 2.5/0.25 MG (LOMOTIL) TAB PPK#4 PO PRN (10:00)
[2020-08-22] MEDS ORDERED: DIPHENOXYLATE/ATROPINE 2.5MG/0.025MG (LOMOTIL) TAB PO PRN (10:15)
[2020-08-22] MEDS: LEVOTHYROXINE 25 MCG (LEVOTHROID) TAB PO SCH (10:39)
--- NOTE | 2020-08-22 11:25 | Progress Note ---
Subjective Date Seen by a Provider: Aug 22, 2020 Time Seen by a Provider: 11:21 Subjective/Events-last exam Fwup acute diverticulitis, acute on chronic renal insufficiency, elevated liver enzymes, paroxysmal atrial fibrillation, intractable N/V, anxiety. No N/V since yesterday. Feels better today--tolerating clear liquids. Focused Exam Lactate Level 08/20/20 14:14: Lactic Acid Level 1.37 Objective Exam Vital Signs Date Time Temp Pulse Resp B/P (MAP) Pulse Ox O2 Delivery O2 Flow Rate FiO2 08/22/20 08:00 36.1 78 18 136/60 (85) 96 Room Air 08/22/20 08:00 Room Air 08/21/20 23:17 36.0 76 18 108/55 (72) 95 Room Air 08/21/20 19:52 36.8 78 18 123/59 (80) 95 Room Air 08/21/20 19:15 Room Air 08/21/20 16:09 36.4 78 18 139/69 (92) 93 Room Air 08/21/20 11:55 36.5 75 20 154/73 (100) 96 Room Air I & O 08/22/20 07:00 Intake Total 3280 ml Output Total 200 ml Balance 3080 ml Capillary Refill : Less Than 3 Seconds General Appearance: No Apparent Distress Neck: Supple Respiratory: Lungs Clear Cardiovascular: Regular Rate, Rhythm, Systolic Murmur Gastrointestinal: normal bowel sounds, soft, tenderness (epigastric/LLQ) Extremity: Non Tender, No Calf Tenderness, No Pedal Edema Neurologic/Psychiatric: Alert, Oriented x3 Skin: Warm/Dry Results Lab Laboratory Tests 08/22/20 05:07: White Blood Count 9.1, Red Blood Count 3.59L, Hemoglobin 10.6L, Hematocrit 33L, Mean Corpuscular Volume 93, Mean Corpuscular Hemoglobin 30, Mean Corpuscular Hemoglobin Concent 32, Red Cell Distribution Width 14.5, Platelet Count 223, Mean Platelet Volume 9.6, Immature Granulocyte % (Auto) 0, Neutrophils (%) (Auto) 72, Lymphocytes (%) (Auto) 20, Monocytes (%) (Auto) 6, Eosinophils (%) (Auto) 1, Basophils (%) (Auto) 0, Neutrophils # (Auto) 6.5, Lymphocytes # (Auto) 1.8, Monocytes # (Auto) 0.6, Eosinophils # (Auto) 0.1, Basophils # (Auto) 0.0, Immature Granulocyte # (Auto) 0.0, Prothrombin Time 28.8H, INR Comment 2.7H, Sodium Level 139, Potassium Level 3.9, Chloride Level 107, Carbon Dioxide Level 21, Anion Gap 11, Blood Urea Nitrogen 9, Creatinine 1.13, Estimat Glomerular Filtration Rate 48, BUN/Creatinine Ratio 8, Glucose Level 94, Calcium Level 8.6, Corrected Calcium 8.9, Total Bilirubin 0.8, Aspartate Amino Transf (AST/SGOT) 140H, Alanine Aminotransferase (ALT/SGPT) 219H, Alkaline Phosphatase 112, Total Protein 6.3L, Albumin 3.6 Assessment/Plan Assessment/Plan Assess & Plan/Chief Complaint 1. Acute Diverticulitis--continue IV zosyn, advance to full liquids 2. Acute on Chronic Renal Insufficiency--Cr back to normal with IVFs so will decrease rate 3. Intractable N/V--resolved, advance to full liquids 4. Paroxysmal Atrial Fibrillation--resume amiodarone as well as other cardiac meds and coumadin 5. Elevated LFTs--repeat tomorrow Clinical Quality Measures Admission Status Admission Dx 1. Acute Diverticulitis with failed outpatient treatment--admit for gut rest, IV antibiotics, IV pain control, did discuss seeing her GI doctor after this and discussing possible surgical consult for sigmoid resection due to recurrent diverticulitis 2. Acute on Chronic Renal Insufficiency--BUN/Cr improving with IVFs 3. Intractable Nausea and Vomiting--was ongoing until this morning when scopolamine patch and IV phenergan were added 4. Paroxysmal Atrial Fibrillation--check PT/INR and resume coumadin dosing 5. Elevated LFTs--improving with treatment, will check pancreatic enzymes as well 6. Anxiety--add alprazolam prn FARHAT SERNA DO Aug 22, 2020 11:25
[2020-08-22] MEDS: SPIRONOLACTONE 25 MG (ALDACTONE) TAB PO SCH ×2 (11:56→20:12)
[2020-08-22 16:00] VITALS: BP 131/60
[2020-08-22] MEDS: BUMETANIDE 1 MG (BUMEX) TAB PO SCH (16:58)
[2020-08-22] MEDS ORDERED: warFARin 2.5 MG (COUMADIN) TAB PO SCH (18:00)
[2020-08-22] MEDS: CARVEDILOL 3.125 MG (COREG) TABLET PO SCH (20:12)
[2020-08-22] MEDS ORDERED: ALLOPURINOL 100 MG (ZYLOPRIM) TAB PO SCH (21:00)
[2020-08-22] MEDS ORDERED: CARVEDILOL 6.25 MG (COREG) TAB PO SCH (21:00)
[2020-08-23] VITALS: BP 120/89
[2020-08-23] MEDS: PIPERACILLIN/TAZO 4.5 GM/NS 100 ML IV SCH ×2 (01:12)
[2020-08-23 06:12] LABS: BASOPHILS % (AUTO) 0 % (0-10); EOSINOPHILS # (AUTO) 0.1 10^3/uL (0.0-0.3); EOSINOPHILS % (AUTO) 1 % (0-10); HEMATOCRIT 31 % (35-52); HEMOGLOBIN 9.9 g/dL (11.5-16.0); LYMPHOCYTES % (AUTO) 21 % (12-44); MEAN CORPUSCULAR HEMOGLOBIN 30 pg (25-34); MEAN CORPUSCULAR HGB CONC 33 g/dL (32-36); MEAN CORPUSCULAR VOLUME 92 fL (80-99); MEAN PLATELET VOLUME 10.3 fL (9.0-12.2); MONOCYTES # (AUTO) 0.7 10^3/uL (0.0-1.0); MONOCYTES % (AUTO) 7 % (0-12); NEUTROPHILS # (AUTO) 6.8 10^3/uL (1.8-7.8); NEUTROPHILS % (AUTO) 70 % (42-75); PLATELET COUNT 207 10^3/uL (130-400); WHITE BLOOD COUNT 9.6 10^3/uL (4.3-11.0)
[2020-08-23 06:24] LABS: INR 2.2 (0.8-1.4); PROTHROMBIN TIME PATIENT 24.9 SEC (12.2-14.7)
[2020-08-23 06:29] LABS: ALBUMIN 3.5 GM/DL (3.2-4.5)
[2020-08-23 06:30] LABS: POTASSIUM 3.6 MMOL/L (3.6-5.0)
[2020-08-23 06:31] LABS: CALCIUM 7.9 MG/DL (8.5-10.1)
[2020-08-23 06:32] LABS: TOTAL PROTEIN 6.1 GM/DL (6.4-8.2)
[2020-08-23] MEDS: LEVOTHYROXINE 25 MCG (LEVOTHROID) TAB PO SCH (06:33)
[2020-08-23] MEDS: LACTATED RINGERS 1,000 ML IV SCH (06:33)
[2020-08-23] MEDS: BUMETANIDE 1 MG (BUMEX) TAB PO SCH (06:33)
[2020-08-23 06:34] LABS: BILIRUBIN,TOTAL 0.9 MG/DL (0.1-1.0)
[2020-08-23 06:36] LABS: CREATININE SERUM 1.42 MG/DL (0.60-1.30)
[2020-08-23 08:00] VITALS: BP 169/73
[2020-08-23] MEDS ORDERED: PROM12.511 PO (08:40)
[2020-08-23] MEDS ORDERED: SPIR25TA5 PO (08:40)
[2020-08-23] MEDS ORDERED: AMIODARONE 200 MG (CORDARONE) TAB PO SCH (09:00)
[2020-08-23] MEDS: SPIRONOLACTONE 25 MG (ALDACTONE) TAB PO SCH (09:28)
[2020-08-23] MEDS: CARVEDILOL 3.125 MG (COREG) TABLET PO SCH (09:28)
--- NOTE | 2020-08-23 13:00 | Discharge Summary ---
Diagnosis/Chief Complaint Date of Admission Aug 20, 2020 at 12:50 Date of Discharge Aug 23, 2020 at 10:00 Discharge Date: Aug 23, 2020 Discharge Diagnosis 1. Acute Diverticulitis with failed outpatient treatment--improved 2. Acute on Chronic Renal Insufficiency--BUN/Cr improved with IVFs but once IVFs decreased and her diuretics were restarted, her BUN/Cr worsened so we discussed decreasing her diuretic doses and her need to drink more water which she admitted she was not very good at 3. Intractable Nausea and Vomiting--resolved 4. Paroxysmal Atrial Fibrillation--stable 5. Elevated LFTs--stable, will recheck in 1 week 6. Anxiety--improved but did state that she felt foggy after the alprazolam doses Reason Hospital Visit This is a 70 year old female with a history of diverticulitis. She was being treated as an outpatient for a diverticulitis flare up but started having diarrhea from the antibiotics so she started taking immodium and then she became constipated and started having intractable nausea and vomiting. She was seen in my office and it was felt she needed admission to rule out bowel obstruction vs perforation. However, the patient did not want to go to the hospital due to COVID-19 concerns. She did agree to evaluation in the emergency room to rule out bowel obstruction or perforation. She was found to have an elevated WBC count of 12,000 with elevated BUN/Cr and elevated LFTs. Her CT scan of the abdomen and pelvis showed mild diverticulitis but due to ongoing nausea and vomiting despite IV antiemetics it was felt she would need admission for IV antibiotics, IVFs and pain control and well as IV antiemetics. Discharge Summary Hospital Course Was the Problem List Reviewed?: Yes Hospital Course This is a 70 year old female with a history of diverticulitis. She was being treated as an outpatient for a diverticulitis flare up but started having diarrhea from the antibiotics so she started taking immodium and then she became constipated and started having intractable nausea and vomiting. She was seen in my office and it was felt she needed admission to rule out bowel obstruction vs perforation. However, the patient did not want to go to the hospital due to COVID-19 concerns. She did agree to evaluation in the emergency room to rule out bowel obstruction or perforation. She was found to have an elevated WBC count of 12,000 with elevated BUN/Cr and elevated LFTs. Her CT scan of the abdomen and pelvis showed mild diverticulitis but due to ongoing nausea and vomiting despite IV antiemetics it was felt she would need admission for IV antibiotics, IVFs and pain control and well as IV antiemetics. She was admitted to the medical floor on clear liquids with IVFs as well as IV zosyn and IV zofran for nausea. She continued to have nausea and vomiting with dry heaving which was made worse by anxiety so a scopolamine patch was added and then both IV phenergan and IV ativan were given. Following the administration of the IV phenergan and ativan, her nausea and vomiting were much improved. After 48hrs on clear liquids, her diet was advanced to full liquids. She tolerated this with no nausea or vomiting and no worsening of abdominal pain. She was having normal bowel movements. We did discuss going to see a surgeon to discuss possible sigmoid colon resection due to her recurrent diverticulitis flare-ups. We also discussed that her BUN/Cr improved with IVFs and no diuretics her first 2 days but once we decreased her fluids and added back the diuretics that her BUN/Cr worsened. She understands that she needs to drink more fluids and admits she is not very good about that. She was feeling much better and anxious to go home so she will be discharged to home and resume her augmentin with phenergan and have a PT/INR and CMP in 4 days and fwup with me in 1 week. She will continue a full liquid/soft diet for the rest of this week. Labs Laboratory Tests 08/20/20 14:14: 08/21/20 05:14: Red Blood Count 3.42L, Hemoglobin 10.1L, Hematocrit 32L, Neutrophils (%) (Auto) 82H, Prothrombin Time 31.9H, INR Comment 3.1H, Glucose Level 107H, Calcium Level 8.4L, Aspartate Amino Transf (AST/SGOT) 78H, Alanine Aminotransferase (ALT/SGPT) 118H, Total Protein 6.2L 08/22/20 05:07: Red Blood Count 3.59L, Hemoglobin 10.6L, Hematocrit 33L, Prothrombin Time 28.8H, INR Comment 2.7H, Aspartate Amino Transf (AST/SGOT) 140H, Alanine Aminotransferase (ALT/SGPT) 219H, Total Protein 6.3L 08/23/20 05:29: Red Blood Count 3.32L, Hemoglobin 9.9L, Hematocrit 31L, Prothrombin Time 24.9H, INR Comment 2.2H, Calcium Level 7.9L, Aspartate Amino Transf (AST/SGOT) 121H, Alanine Aminotransferase (ALT/SGPT) 236H, Total Protein 6.1L, Creatinine 1.42H, Corrected Calcium 8.3L Procedures None. Discharge Physical Examination Allergies: Coded Allergies: rosuvastatin (Unverified Allergy, Mild, 03/06/18) sacubitril (Verified Allergy, Mild, RASH, 07/01/18) PATIENT HAS ITCHING FROM MEDICATION valsartan (Verified Allergy, Mild, RASH, 07/01/18) PATIENT HAS ITCHING FROM MEDICATION Sulfa (Sulfonamide Antibiotics) (Verified Allergy, Unknown, 03/06/18) fentanyl (Verified Adverse Reaction, Unknown, Vomiting, 04/14/19) Vitals & I&Os Vital Signs Date Time Temp Pulse Resp B/P (MAP) Pulse Ox O2 Delivery O2 Flow Rate FiO2 08/23/20 08:00 Room Air 08/23/20 08:00 35.6 91 18 169/73 (105) 95 General Appearance: Alert, Oriented X3, Cooperative, No Acute Distress Respiratory: Clear to Auscultation Cardiovascular: Regular Rate Extremities: No Clubbing, No Cyanosis, No Edema Neuro: Normal Gait, Normal Speech Psych/Mental Status: Mental Status NL Discharge Home Medications Reviewed and agree with Discharge Medication list on patient's Discharge Instruction sheet Instructions to Patient/Family Please see electronic discharge instructions given to patient. FARHAT SERNA DO Aug 23, 2020 13:00
[2020-08-24] MEDS ORDERED: [UNRECOGNIZED DRUG - REMARK] TP SCH (01:15)
--- NOTE | 2020-08-25 01:14 | Physician Query Clarification ---
PQ-Uncertain Diagnosis Admission/Discharge Admission Date: Aug 20, 2020 at 12:50 Discharge Date: Aug 23, 2020 at 10:00 FARHAT Butt DO The medical record reflects the following clinical scenario: History/Risk Factors: 70 y/o female presents with diverticulitis treated with IV antibiotics, sepsis was documented only in ER provider note only. Clinical Findings:WBC-12.0 H, 8.1, anion gap-12 Treatment:IV antibiotics Question: Is Sepsis a clinically valid diagnosis? Sepsis was documented in the ER provider note, 08/20 with no further documentation in the medical record. Please document a response in Progress Note or Discharge Summary. 1. Yes, clinically valid, condition resolved. 2. No, condition ruled out. 3. Other, with explanation of clinical findings. 4. Undetermined, no explanation for clinical findings. PHYSICIAN RESPONSE Diagnosis clinically valid: No, conditon ruled out Please remember a lack of response to the above will prompt a phone page by [facility]oding staff. In responding to this query, please exercise your independent professional judgment. The purpose of this communication is to more accurately reflect the complexity of your patients condition. The fact that a question is asked does not imply that any particular answer is desired or expected. Thank you for your timely response to this clarification. Requestors name: [ ] Phone # [ ] THIS PHYSICIAN QUERY FORM IS A PERMANENT PART OF THE MEDICAL RECORD ZAYDA RIVERA Aug 25, 2020 01:14 FARHAT SERNA DO Aug 25, 2020 11:42
== END 2020-08-23 10:00 | disposition home or self-care (01) | DRG 392 ==
LOC: EDUNIT# 10:46 → ER 10:48 → 4TH 12:50
PROVIDERS: ADMIT Family Medicine; ATTEND Family Medicine
DX: K57.32 Diverticulitis of large intestine without perforation or abscess without bleeding (principal); I42.9 Cardiomyopathy, unspecified; I48.91 Unspecified atrial fibrillation; I25.10 Atherosclerotic heart disease of native coronary artery without angina pectoris; K21.9 Gastro-esophageal reflux disease without esophagitis; K57.90 Diverticulosis of intestine, part unspecified, without perforation or abscess without bleeding; G89.29 Other chronic pain; M54.9 Dorsalgia, unspecified; F41.9 Anxiety disorder, unspecified; F32.9 Major depressive disorder, single episode, unspecified; I48.0 Paroxysmal atrial fibrillation; N18.9 Chronic kidney disease, unspecified; R11.2 Nausea with vomiting, unspecified; I12.9 Hypertensive chronic kidney disease with stage 1 through stage 4 chronic kidney disease, or unspecified chronic kidney disease; R79.89 Other specified abnormal findings of blood chemistry; Z86.16 Personal history of COVID-19; R19.7 Diarrhea, unspecified
CPT/HCPCS: 36415; 74176; 80053; 81000; 82150; 83605; 83690; 85025; 85610; 86141

== ENCOUNTER 2020-10-31 07:50 | Emergency (ER) | payer MEDICARE, OTHER ==
[~2020-10-31] VITALS: Ht 147.3 cm; Wt 60.4 kg
[~2020-10-31 07:50] MED LIST changes: -AMIT10TA6; +AMOX1TAB11 PO; +AMT10T; +LEVO25CA4 PO; +MELA10TA2 PO; +MELA5TAB14 PO; +PROM12.511 PO
--- NOTE | 2020-10-31 08:13 | ED General ---
General Chief Complaint: General Problems/Pain Stated Complaint: DECREASED URINATING, BLOATED Nursing Triage Note: AMB TO ROOM WITH MALE. PATIENT REPORTS THAT SHE HAS NOT FELT WELL X1 WEEK WAS SEEN A WEEK AGO AT DR CASTRO FOR FEELING LIKE HER VAG AREA WAS BURPING AND HAVNG GREEN DISCHARGE. NOW BLOATED FEELING AND UNABLE T URINATE. Nursing Sepsis Screen: No Definite Risk Source of Information: Patient Exam Limitations: No Limitations History of Present Illness Date Seen by Provider: Oct 31, 2020 Time Seen by Provider: 08:00 Initial Comments Patient is a 70-year-old female who presents to the emergency department today with a chief complaint of generally not feeling well, nausea without vomiting, abdominal bloating and decreased urination. Patient states that she saw her primary care physician about a week ago with a complaint of green and yellow vaginal discharge with a foul odor and gas coming from her vagina. Patient states that she was placed on Flagyl for a week. She saw her primary care physician again 2 days ago and had a pelvic exam. They swabbed her vagina at that time and she was placed on another round of Flagyl. Patient states that she is continued to have bloating and the nausea started last night. She denies shortness of breath or chest pain. She states she has decreased appetite secondary to the bloating. She denies dysuria urgency or frequency but states she feels a lot of pelvic fullness. Patient states that she did not take any of her medications this morning. She has a history of hypertension A. fib, CHF cirrhosis and bladder tumors in the past that were removed and benign according to the patient. Patient does have a history of a recent diverticulitis flare about 2 months ago that required hospitalization. All other review of systems reviewed and negative except as stated above. Timing/Duration: 1 Week Severity: Moderate Associated Systoms: Loss of Appetite, Malaise, Nausea/Vomiting Allergies and Home Medications Allergies Coded Allergies: rosuvastatin (Unverified Allergy, Mild, 03/06/18) sacubitril (Verified Allergy, Mild, RASH, 07/01/18) PATIENT HAS ITCHING FROM MEDICATION valsartan (Verified Allergy, Mild, RASH, 07/01/18) PATIENT HAS ITCHING FROM MEDICATION Sulfa (Sulfonamide Antibiotics) (Verified Allergy, Unknown, 03/06/18) fentanyl (Verified Adverse Reaction, Unknown, Vomiting, 04/14/19) Home Medications Allopurinol 100 Mg Tablet, 100 MG PO HS, (Reported) Amiodarone HCl 200 Mg Tablet, 200 MG PO DAILY, (Reported) Amoxicillin/Potassium Clav 1 Each Tablet, 1 EA PO BID, (Reported) FILLED 08-16-2020 #20/10 DAY SUPPLY Bumetanide 1 Mg Tablet, 1 MG PO BID, (Reported) Carvedilol 6.25 Mg Tablet, 3.125 MG PO BID, (Reported) TAKES OF A 6.25MG TAB Colestipol HCl 1 Gm Tablet, 1 GM PO 0900, (Reported) Colestipol HCl 1 Gm Tablet, 1 GM PO 2000 PRN for DIARRHEA, (Reported) Diphenoxylate HCl/Atropine 1 Each Tablet, 1 EA PO Q4H PRN for DIARRHEA, (Reported) Levothyroxine Sodium 25 Mcg Capsule, 25 MCG PO DAILY BEFORE BREAKFA, (Reported) Melatonin 10 Mg Tablet, 10 MG PO HS, (Reported) Ondansetron 4 Mg Tab.rapdis, 4 MG PO Q6H PRN for NAUSEA/VOMITING-1ST LINE, (Reported) Ondansetron 4 Mg Tab.rapdis, 4 MG PO Q8H PRN for nausea Prescribed by: GUY BOX on 10/31/20 1058 Pantoprazole Sodium 40 Mg Tablet.dr, 40 MG PO 1800 PRN for HEARTBURN, (Reported) Promethazine HCl 12.5 Mg Tablet, 12.5 MG PO Q4H Prescribed by: FARHAT SERNA on 08/23/20 0840 Spironolactone 25 Mg Tablet, 25 MG PO BID Prescribed by: FARHAT SERNA on 08/23/20 0840 Warfarin Sodium 2.5 Mg Tablet, 2.5 MG PO 1800, (Reported) Patient Home Medication List Home Medication List Reviewed: Yes Review of Systems Review of Systems Constitutional: see HPI EENTM: no symptoms reported Respiratory: no symptoms reported Cardiovascular: no symptoms reported Gastrointestinal: abdominal pain; No diarrhea; loss of appetite, nausea Genitourinary: other (Suprapubic fullness) Musculoskeletal: no symptoms reported Skin: no symptoms reported All Other Systems Reviewed Negative Unless Noted: Yes Past Qcgfgpi-Szvzpv-Dolxvb Hx Patient Social History Alcohol Beverage of Choice: Wine, Other 2nd Hand Smoke Exposure: Yes Recent Infectious Disease Expo: No Recent Hopitalizations: No (JANUARY 2018-GALLBLADDER X 1 WEEK) Immunizations Up To Date Tetanus Booster (TDap): Less than 5yrs PED Vaccines UTD: No Date of Pneumonia Vaccine: Aug 12, 2017 Date of Influenza Vaccine: Mar 27, 2019 Seasonal Allergies Seasonal Allergies: No Past Medical History Surgeries: Yes Bladder Surgery, Breast, Cardiac, Defibrillator, Gallbladder, Hysterectomy, Oophorectomy, Pacemaker Respiratory: Yes Sleep Apnea Currently Using CPAP: Yes (at night) Currently Using BIPAP: No Cardiac: Yes Atrial Fibrillation, Cardiomyopathy, Coronary Artery Disease, Hypertension, Irregular Heartbeat, Valvular Heart Disease Neurological: No Reproductive Disorders: No (X1 MISCARRIAGE) [employer] History: 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 ZARATE) UTI-Chronic Gastrointestinal: Yes Gastroesophageal Reflux, Liver Disease/Jaundice, Diverticulosis, Polyps, C-Diff Musculoskeletal: Yes Chronic Back Pain Endocrine: No HEENT: Yes (left eye problem with vision) Loss of Vision: Bilateral Hearing Impairment: Denies Cancer: No Psychosocial: Yes Anxiety, Depression Integumentary: No Blood Disorders: No Adverse Reaction/Blood Tranf: No (HAS HAD BLOOD WITH NO REACTIION) Family Medical History Heart Disease, CAD Under 55 Years Old Physical Exam Vital Signs Vital Signs - First Documented 10/31/20 07:53 Temp 35.6 Pulse 83 Resp 18 B/P (MAP) 135/100 (112) Pulse Ox 97 O2 Delivery Room Air Capillary Refill : Less Than 3 Seconds Height, Weight, BMI Height: 4'11.00" Weight: 130lbs. 14.4oz. 58.112516jm; 27.00 BMI Method:Stated General Appearance: No Apparent Distress, WD/WN Eyes: Bilateral Eye Normal Inspection, Bilateral Eye PERRL, Bilateral Eye EOMI Neck: Normal Inspection Respiratory: Lungs Clear, Normal Breath Sounds, No Accessory Muscle Use, No Respiratory Distress Cardiovascular: Regular Rate, Rhythm Gastrointestinal: Non Tender, Soft, Abnormal Bowel Sounds (Slightly hyperactive high-pitched bowel sounds), Distended Extremity: Normal Capillary Refill, Normal Inspection, Normal Range of Motion, No Calf Tenderness, No Pedal Edema Neurologic/Psychiatric: Alert, Oriented x3, No Motor/Sensory Deficits, Normal Mood/Affect Procedures/Interventions Date of ETT Placement: Jan 07, 2018 Progress/Results/Core Measures Suspected Sepsis Recent Fever Within 48 Hours: No Infection Criteria Present: None New/Unexplained Altered Menta: No Sepsis Screen: No Definite Risk SIRS Temperature: Pulse: 83 Respiratory Rate: 18 Laboratory Tests 10/31/20 08:10: White Blood Count 9.7 Blood Pressure 135 /100 Mean: 112 Laboratory Tests 10/31/20 08:10: Creatinine 1.19, Platelet Count 326, Total Bilirubin 0.4 Results/Orders Lab Results Laboratory Tests Test 10/31/20 08:10 10/31/20 09:39 Range/Units White Blood Count 9.7 4.3-11.0 10^3/uL Red Blood Count 4.19 3.80-5.11 10^6/uL Hemoglobin 11.2 L 11.5-16.0 g/dL Hematocrit 36 35-52 % Mean Corpuscular Volume 86 80-99 fL Mean Corpuscular Hemoglobin 27 25-34 pg Mean Corpuscular Hemoglobin Concent 31 L 32-36 g/dL Red Cell Distribution Width 15.1 H 10.0-14.5 % Platelet Count 326 130-400 10^3/uL Mean Platelet Volume 9.8 9.0-12.2 fL Immature Granulocyte % (Auto) 1 % Neutrophils (%) (Auto) 69 42-75 % Lymphocytes (%) (Auto) 24 12-44 % Monocytes (%) (Auto) 5 0-12 % Eosinophils (%) (Auto) 1 0-10 % Basophils (%) (Auto) 0 0-10 % Neutrophils # (Auto) 6.7 1.8-7.8 10^3/uL Lymphocytes # (Auto) 2.3 1.0-4.0 10^3/uL Monocytes # (Auto) 0.5 0.0-1.0 10^3/uL Eosinophils # (Auto) 0.1 0.0-0.3 10^3/uL Basophils # (Auto) 0.0 0.0-0.1 10^3/uL Immature Granulocyte # (Auto) 0.1 0.0-0.1 10^3/uL Sodium Level 139 135-145 MMOL/L Potassium Level 3.2 L 3.6-5.0 MMOL/L Chloride Level 102 98-107 MMOL/L Carbon Dioxide Level 25 21-32 MMOL/L Anion Gap 12 5-14 MMOL/L Blood Urea Nitrogen 20 H 7-18 MG/DL Creatinine 1.19 0.60-1.30 MG/DL Estimat Glomerular Filtration Rate 45 BUN/Creatinine Ratio 17 Glucose Level 121 H 70-105 MG/DL Calcium Level 9.0 8.5-10.1 MG/DL Corrected Calcium 8.9 8.5-10.1 MG/DL Total Bilirubin 0.4 0.1-1.0 MG/DL Aspartate Amino Transf (AST/SGOT) 26 5-34 U/L Alanine Aminotransferase (ALT/SGPT) 16 0-55 U/L Alkaline Phosphatase 91 40-136 U/L Total Protein 7.0 6.4-8.2 GM/DL Albumin 4.1 3.2-4.5 GM/DL Urine Color YELLOW Urine Clarity CLOUDY Urine pH 5.0 5-9 Urine Specific [place] >=1.030 1.016-1.022 Urine Protein NEGATIVE NEGATIVE Urine Glucose (UA) NEGATIVE NEGATIVE Urine Ketones NEGATIVE NEGATIVE Urine Nitrite NEGATIVE NEGATIVE Urine Bilirubin NEGATIVE NEGATIVE Urine Urobilinogen 0.2 < = 1.0 MG/DL Urine Leukocyte Esterase 1+ H NEGATIVE Urine RBC (Auto) NEGATIVE NEGATIVE Urine RBC RARE /HPF Urine WBC 2-5 /HPF Urine Squamous Epithelial Cells RARE /HPF Urine Renal Epithelial Cells RARE /HPF Urine Crystals NONE /LPF Urine Bacteria FEW H /HPF Urine Casts PRESENT /LPF Urine Hyaline Casts 10-25 H /LPF Urine Mucus NEGATIVE /LPF Urine Culture Indicated NO My Orders Orders - GUY BOX MD Ed Iv/Invasive Line Start (10/31/20 08:26) Cbc With Automated Diff (10/31/20 08:26) Comprehensive Metabolic Panel (10/31/20 08:26) Ondansetron Injection (Zofran Injectio (10/31/20 08:30) Ct Abdomen/Pelvis Wo (10/31/20 08:50) Ua Culture If Indicated (10/31/20 09:51) Medications Given in ED Current Medications Medications Dose Ordered Sig/Allie Route Start Time Stop Time Status Last Admin Dose Admin Ondansetron HCl 4 mg ONCE ONCE IVP 10/31/20 08:30 10/31/20 08:31 DC 10/31/20 08:31 4 MG Vital Signs/I&O 10/31/20 07:53 Temp 35.6 Pulse 83 Resp 18 B/P (MAP) 135/100 (112) Pulse Ox 97 O2 Delivery Room Air Capillary Refill : Less Than 3 Seconds Blood Pressure Mean: 112 Progress Note : Time: 10:52 Progress Note Patient care and evaluation discussed with Dr. Pham on-call for general surgery. At this time feels like the patient is stable for outpatient follow-up with Dr. Tobias. Patient abdominal exam is benign. She does have some gaseous distention in her abdomen. CBC is normal chemistry is normal urinalysis is normal and CT does not find any acute intra-abdominal pathology. I did attempt a pelvic exam on the patient she was not able to tolerate the speculum exam very well. But I did not see any large amounts of copious green vaginal discharge. Bimanual exam was completed with just one finger and I did not feel any large defects in the vaginal wall, and I did not find any green vaginal discharge with digital examination. She tolerated the exam fairly okay. At this time she has no clinical or objective findings to warrant further studies from the emergency department nor any indications for inpatient ad mission. I have discussed the plan of care with the patient which includes [id number] Gas-X 2 pills 3 times a day as well as Zofran for home. She will call Dr. Tobias's office tomorrow for a follow-up appointment. She is given good return precautions which include fever and vomiting. She verbalized understanding. All questions have been sought and answered. Patient is stable for discharge. Diagnostic Imaging Diagonstic Imaging: CT Comments [facility], [place] NAME: ISAC BIRD [facility] REC#: [id number] PT STATUS: REG ER : 1950 PHYSICIAN: GUY BOX MD ADMIT DATE: 10/31/20/ER Draft Date of Exam:10/31/20 CT ABDOMEN/PELVIS WO PROCEDURE: CT abdomen and pelvis without contrast. TECHNIQUE: Multiple contiguous axial images were obtained through the abdomen and pelvis without the use of intravenous contrast. Auto Exposure Controls were utilized during the CT exam to meet ALARA standards for radiation dose reduction. INDICATION: Diverticulitis COMPARISON: 08/20/2020 and 04/14/2019 FINDINGS: Pacer leads are partially visualized. Minimal bibasilar scarring and/or atelectasis. The heart is mildly enlarged. No significant pericardial effusion. Cholecystectomy. The unenhanced liver and spleen are unremarkable. The adrenal glands are unremarkable. The pancreas is unremarkable. The bilateral kidneys and ureters are unremarkable. No aneurysmal dilatation of the abdominal aorta. The urinary bladder is predominantly decompressed, therefore not optimally evaluated. The uterus is not visualized, likely surgically absent. No abnormal adnexal mass lesion. Extensive sigmoid colonic diverticulosis without CT evidence of diverticulitis. The appendix is unremarkable. No bowel obstruction or pneumatosis. No significant adenopathy, free air, or free fluid within the abdomen or pelvis. No acute osseous abnormality mild scattered osseous degenerative changes. IMPRESSION: Colonic diverticulosis without definite CT evidence of acute diverticulitis. Additional stable findings as described above. Dictated on workstation # [id number] Dict: 10/31/20910 Trans: 10/31/20922 ACB [id number] Interpreted by: JESIKA JIMENES MD Electronically signed by: Departure Impression Primary Impression: Abdominal pain Qualified Codes: R10.13 - Epigastric pain Additional Impression: Abdominal bloating Disposition: 01 HOME, SELF-CARE Condition: Stable Departure-Patient Inst. Decision time for Depature: 10:55 Referrals: SARAI TOBIAS JACQUELINE S DO (PCP/Family) Primary Care Physician Patient Instructions: Gas and Bloating Add. Discharge Instructions: Take [id number] Gas-X, 2 tablets 3 times a day for the next 48 hours. I have also given your prescription for Zofran, and nausea medication you can take 3 times a day as needed for nausea. If you develop fever or vomiting please come back to the emergency department for reevaluation. Please call Dr. Tobias's office tomorrow for a follow-up appointment. Scripts Ondansetron (Ondansetron Odt) 4 Mg Tab.rapdis 4 MG PO Q8H PRN for nausea, #20 TAB Prov: GUY BOX MD 10/31/20 Copy Copies To 1: SARAI TOBIAS KATHRYN M MD Oct 31, 2020 08:13
[2020-10-31] MEDS ORDERED: ONDANSETRON 4 MG/2 ML (SDV) Z0FRAN IVP ONE (08:30)
[2020-10-31 08:42] LABS: ALBUMIN 4.1 GM/DL (3.2-4.5); BILIRUBIN,TOTAL 0.4 MG/DL (0.1-1.0); CREATININE SERUM 1.19 MG/DL (0.60-1.30); POTASSIUM 3.2 MMOL/L (3.6-5.0)
[2020-10-31 08:44] LABS: BASOPHILS % (AUTO) 0 % (0-10); EOSINOPHILS # (AUTO) 0.1 10^3/uL (0.0-0.3); EOSINOPHILS % (AUTO) 1 % (0-10); HEMATOCRIT 36 % (35-52); HEMOGLOBIN 11.2 g/dL (11.5-16.0); LYMPHOCYTES # (AUTO) 2.3 10^3/uL (1.0-4.0); LYMPHOCYTES % (AUTO) 24 % (12-44); MEAN CORPUSCULAR HEMOGLOBIN 27 pg (25-34); MEAN CORPUSCULAR HGB CONC 31 g/dL (32-36); MEAN CORPUSCULAR VOLUME 86 fL (80-99); MEAN PLATELET VOLUME 9.8 fL (9.0-12.2); MONOCYTES # (AUTO) 0.5 10^3/uL (0.0-1.0); MONOCYTES % (AUTO) 5 % (0-12); NEUTROPHILS # (AUTO) 6.7 10^3/uL (1.8-7.8); NEUTROPHILS % (AUTO) 69 % (42-75); PLATELET COUNT 326 10^3/uL (130-400); WHITE BLOOD COUNT 9.7 10^3/uL (4.3-11.0)
--- NOTE | 2020-10-31 09:25 | Diagnostic Imaging Report ---
PROCEDURE: CT abdomen and pelvis without contrast. TECHNIQUE: Multiple contiguous axial images were obtained through the abdomen and pelvis without the use of intravenous contrast. Auto Exposure Controls were utilized during the CT exam to meet ALARA standards for radiation dose reduction. INDICATION: Diverticulitis COMPARISON: 08/20/2020 and 04/14/2019 FINDINGS: Pacer leads are partially visualized. Minimal bibasilar scarring and/or atelectasis. The heart is mildly enlarged. No significant pericardial effusion. Cholecystectomy. The unenhanced liver and spleen are unremarkable. The adrenal glands are unremarkable. The pancreas is unremarkable. The bilateral kidneys and ureters are unremarkable. No aneurysmal dilatation of the abdominal aorta. The urinary bladder is predominantly decompressed, therefore not optimally evaluated. The uterus is not visualized, likely surgically absent. No abnormal adnexal mass lesion. Extensive sigmoid colonic diverticulosis without CT evidence of diverticulitis. The appendix is unremarkable. No bowel obstruction or pneumatosis. No significant adenopathy, free air, or free fluid within the abdomen or pelvis. No acute osseous abnormality mild scattered osseous degenerative changes. IMPRESSION: Colonic diverticulosis without definite CT evidence of acute diverticulitis. Additional stable findings as described above. Dictated by: Dictated on workstation # [id number]
[2020-10-31 09:57] LABS: BILIRUBIN,URINE NEGATIVE (NEGATIVE); CLARITY,URINE CLOUDY; COLOR,URINE YELLOW; GLUCOSE, URINE (UA) NEGATIVE (NEGATIVE); KETONES,URINE NEGATIVE (NEGATIVE); LEUKOCYTE ESTERASE ,URINE 1+ (NEGATIVE); NITRITE,URINE NEGATIVE (NEGATIVE); PROTEIN,URINE NEGATIVE (NEGATIVE)
[2020-10-31 10:15] LABS: RBC,URINE RARE /HPF
[2020-10-31 10:16] LABS: BACTERIA,URINE FEW /HPF
[2020-10-31 10:24] LABS: SQUAMOUS EPITHELIAL CELL,UR RARE /HPF
[2020-10-31 10:26] LABS: RENAL EPITHELIAL CELLS,URINE RARE /HPF
[2020-10-31] MEDS ORDERED: ONDA4TAB11 PO (10:58)
[2020-10-31 11:04] VITALS: BP 131/81
[2020-11-03] MEDS ORDERED: METR-145 PO (15:49)
[2020-11-03] MEDS ORDERED: METH1TAB83 PO (15:49)
[2020-11-03] MEDS ORDERED: DOXE10CA29 PO (15:49)
[2020-11-03] MEDS ORDERED: WRF2.5T PO (15:49)
[2020-11-03] MEDS ORDERED: ONDA-105 PO (15:49)
[2020-11-03] MEDS ORDERED: LEVO25TA5 PO (15:49)
[2020-11-03] MEDS ORDERED: SPIR25TA5 PO ×2 (15:53)
== END 2020-10-31 11:04 | disposition home or self-care (01) ==
LOC: EDUNIT# 07:50 → ER 07:53
DX: R10.9 Unspecified abdominal pain (principal); R14.0 Abdominal distension (gaseous); I10 Essential (primary) hypertension; I48.91 Unspecified atrial fibrillation; K21.9 Gastro-esophageal reflux disease without esophagitis; Z77.22 Contact with and (suspected) exposure to environmental tobacco smoke (acute) (chronic); Z88.2 Allergy status to sulfonamides; Z88.8 Allergy status to other drugs, medicaments and biological substances; Z79.01 Long term (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
CPT/HCPCS: 36415; 74176; 80053; 81000; 85025

== ENCOUNTER 2020-11-21 08:34 | Emergency (ER) | payer MEDICARE, OTHER ==
[~2020-11-21 08:34] MED LIST changes: +DOXE10CA29 PO; +METH1TAB83 PO
[2020-11-21] MEDS ORDERED: PANTOPRAZOLE 40 MG (PROTONIX) VIAL IV ONE (08:45)
[2020-11-21] MEDS ORDERED: ONDANSETRON 4 MG/2 ML (SDV) Z0FRAN IVP ONE (08:45)
--- NOTE | 2020-11-21 08:51 | ED Respiratory ---
General Stated Complaint: "FILLING UP WITH FLUID" Source: patient Exam Limitations: no limitations History of Present Illness Date Seen by Provider: November 21, 2020 Time Seen by Provider: 08:31 Initial Comments Patient presents ER by private conveyance with her and chief complaint that for the past 3 days she has been having increased swelling especially around her abdomen causing her to have difficulty breathing. She says she has a hard time getting a deep breath in. She has history of liver cirrhosis and does not drink alcohol or have history of hepatitis. She has been vaccinated for hepatitis A and B. She follows with Dr. Daily. She was recently in the hospital for 2 weeks and discharged about a week ago. She says she was being treated for bacterial vaginosis as well as fluid overload and sent home on bumetanide twice a day. She is cared for by Dr. Mora and has Dr. Sprague as her primary leather grader. She is on warfarin for atrial fibrillation with a history of systolic congestive heart failure, CKD stage III, history of C. difficile colitis, diverticulitis and hypothyroidism. She is on bumetanide 1 mg twice daily as well as amiodarone and warfarin. Nonischemic dilated cardiomyopathy with echocardiogram November 04, 2 weeks ago showing EF of 35 to 40%. Cardiac catheterization [address] Allen showing mild coronary disease, nonobstructive. History of nonsustained ventricular tachycardia status post BiV implantation 2018. Allergies and Home Medications Allergies Coded Allergies: rosuvastatin (Unverified Allergy, Mild, 03/06/18) sacubitril (Verified Allergy, Mild, RASH, 07/01/18) PATIENT HAS ITCHING FROM MEDICATION valsartan (Verified Allergy, Mild, RASH, 07/01/18) PATIENT HAS ITCHING FROM MEDICATION Sulfa (Sulfonamide Antibiotics) (Verified Allergy, Unknown, 03/06/18) fentanyl (Verified Adverse Reaction, Unknown, Vomiting, 04/14/19) Home Medications Allopurinol 100 Mg Tablet, 100 MG PO HS, (Reported) Amiodarone HCl 200 Mg Tablet, 200 MG PO DAILY, (Reported) Bumetanide 1 Mg Tablet, 1 MG PO BID, (Reported) Carvedilol 6.25 Mg Tablet, 3.125 MG PO BID, (Reported) TAKES OF A 6.25MG TAB Colestipol HCl 1 Gm Tablet, 1 GM PO TID PRN for DIARRHEA, (Reported) Doxepin HCl 10 Mg Capsule, 20 MG PO HS, (Reported) TAKES 2 (10MG) CAPS Levothyroxine Sodium 25 Mcg Tablet, 25 MCG PO ,,,SUN, (Reported) Melatonin 10 Mg Tablet, 10 MG PO HS, (Reported) Methenamine/Sodium Salicylate 1 Each Tablet, 1 EACH PO DAILY, (Reported) Metronidazole 500 Mg Tablet, 500 MG PO BID, (Reported) FILLED 10-29-2020 #14/7 DAY SUPPLY Ondansetron HCl 4 Mg Tablet, 4 MG PO Q6H PRN for NAUSEA/VOMITING-1ST LINE, (Reported) Spironolactone 25 Mg Tablet, 25 MG PO DAILY, (Reported) Spironolactone 25 Mg Tablet, 25 MG PO 1200 PRN for SWELLING, (Reported) Warfarin Sodium 2.5 Mg Tablet, 2.5 MG PO SUN,SUN,,SUN, (Reported) Warfarin Sodium 2.5 Mg Tablet, 5 MG PO SUN,SUN, (Reported) TAKES 2 (2.5MG) TABS Patient Home Medication List Home Medication List Reviewed: Yes Review of Systems Review of Systems Constitutional: No chills, No diaphoresis EENTM: No ear discharge, No hearing loss Respiratory: No cough; short of breath Cardiovascular: edema (abd); No Hx of Intervention, No palpitations Gastrointestinal: abdominal pain; No constipation, No diarrhea; nausea; No vomiting Genitourinary: No discharge, No dysuria Musculoskeletal: No back pain, No joint pain All Other Systems Reviewed Negative Unless Noted: Yes Past Mlzfhwf-Zbujet-Hiwmoa Hx Patient Social History Alcohol Beverage of Choice: Wine, Other Smoking Status: Never a Smoker 2nd Hand Smoke Exposure: Yes Recent Hopitalizations: No (JANUARY 2018-GALLBLADDER X 1 WEEK) Immunizations Up To Date Tetanus Booster (TDap): Unknown PED Vaccines UTD: No Date of Pneumonia Vaccine: Aug 12, 2017 Date of Influenza Vaccine: Mar 27, 2019 Seasonal Allergies Seasonal Allergies: No Past Medical History Surgeries: Yes Bladder Surgery, Breast, Cardiac, Defibrillator, Gallbladder, Hysterectomy, Oophorectomy, Pacemaker Respiratory: Yes Sleep Apnea Currently Using CPAP: Yes (at night) Currently Using BIPAP: No Cardiac: Yes Atrial Fibrillation, Cardiomyopathy, Coronary Artery Disease, Hypertension, Irregular Heartbeat, Valvular Heart Disease Neurological: No Reproductive Disorders: No (X1 MISCARRIAGE) [employer] DIRECT[employer] History: 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 ZARATE) UTI-Chronic Gastrointestinal: Yes Gastroesophageal Reflux, Liver Disease/Jaundice, Diverticulosis, Polyps, C-Diff Musculoskeletal: Yes Chronic Back Pain Endocrine: No HEENT: Yes (left eye problem with vision) Loss of Vision: Bilateral Hearing Impairment: Denies Cancer: No Psychosocial: Yes Anxiety, Depression Integumentary: No Blood Disorders: No Adverse Reaction/Blood Tranf: No (HAS HAD BLOOD WITH NO REACTIION) Family Medical History Heart Disease, CAD Under 55 Years Old Physical Exam Vital Signs - First Documented 11/21/20 08:38 Temp 36.2 Pulse 83 Resp 18 B/P (MAP) 144/76 (98) Pulse Ox 96 O2 Delivery Room Air Capillary Refill : Height: 4'11.00" Weight: 130lbs. 14.4oz. 58.333211jt; 26.88 BMI Method:Stated General Appearance: WD/WN, mild distress Eyes: Bilateral Eye Normal Inspection, Bilateral Eye PERRL, Bilateral Eye EOMI HEENT: PERRL/EOMI, pharynx normal, other (No jaundice or scleral icterus) Neck: full range of motion, normal inspection Respiratory: lungs clear, normal breath sounds, no respiratory distress, no accessory muscle use Cardiovascular: normal peripheral pulses, regular rate, rhythm, no edema Gastrointestinal: normal bowel sounds, non tender, soft Neurologic/Psychiatric: alert, oriented x 3, other (Anxious affect) Skin: normal color, warm/dry Procedures/Interventions Date of ETT Placement: Jan 07, 2018 Progress/Results/Core Measures Suspected Sepsis SIRS Temperature: Pulse: Respiratory Rate: Laboratory Tests 11/21/20 09:03: White Blood Count 9.0 Blood Pressure / Mean: Laboratory Tests 11/21/20 09:03: Creatinine 1.27, INR Comment 2.4H, Platelet Count 287, Total Bilirubin 0.7 Results/Orders Lab Results Laboratory Tests Test 11/21/20 09:03 11/21/20 09:36 Range/Units White Blood Count 9.0 4.3-11.0 10^3/uL Red Blood Count 4.16 3.80-5.11 10^6/uL Hemoglobin 10.5 L 11.5-16.0 g/dL Hematocrit 34 L 35-52 % Mean Corpuscular Volume 82 80-99 fL Mean Corpuscular Hemoglobin 25 25-34 pg Mean Corpuscular Hemoglobin Concent 31 L 32-36 g/dL Red Cell Distribution Width 15.8 H 10.0-14.5 % Platelet Count 287 130-400 10^3/uL Mean Platelet Volume 9.6 9.0-12.2 fL Immature Granulocyte % (Auto) 0 % Neutrophils (%) (Auto) 78 H 42-75 % Lymphocytes (%) (Auto) 15 12-44 % Monocytes (%) (Auto) 6 0-12 % Eosinophils (%) (Auto) 1 0-10 % Basophils (%) (Auto) 0 0-10 % Neutrophils # (Auto) 7.1 1.8-7.8 10^3/uL Lymphocytes # (Auto) 1.4 1.0-4.0 10^3/uL Monocytes # (Auto) 0.5 0.0-1.0 10^3/uL Eosinophils # (Auto) 0.1 0.0-0.3 10^3/uL Basophils # (Auto) 0.0 0.0-0.1 10^3/uL Immature Granulocyte # (Auto) 0.0 0.0-0.1 10^3/uL Prothrombin Time 26.7 H 12.2-14.7 SEC INR Comment 2.4 H 0.8-1.4 Activated Partial Thromboplast Time 40 H 24-35 SEC Sodium Level 140 135-145 MMOL/L Potassium Level 3.4 L 3.6-5.0 MMOL/L Chloride Level 103 98-107 MMOL/L Carbon Dioxide Level 24 21-32 MMOL/L Anion Gap 13 5-14 MMOL/L Blood Urea Nitrogen 23 H 7-18 MG/DL Creatinine 1.27 0.60-1.30 MG/DL Estimat Glomerular Filtration Rate 42 BUN/Creatinine Ratio 18 Glucose Level 87 70-105 MG/DL Calcium Level 8.9 8.5-10.1 MG/DL Corrected Calcium 8.7 8.5-10.1 MG/DL Total Bilirubin 0.7 0.1-1.0 MG/DL Aspartate Amino Transf (AST/SGOT) 27 5-34 U/L Alanine Aminotransferase (ALT/SGPT) 17 0-55 U/L Alkaline Phosphatase 100 40-136 U/L C-Reactive Protein High Sensitivity 1.56 H 0.00-0.50 MG/DL B-Type Natriuretic Peptide 308.9 H <100.0 PG/ML Total Protein 7.3 6.4-8.2 GM/DL Albumin 4.2 3.2-4.5 GM/DL Lipase 53 8-78 U/L Urine Color YELLOW Urine Clarity CLEAR Urine pH 5.5 5-9 Urine Specific [place] 1.020 1.016-1.022 Urine Protein NEGATIVE NEGATIVE Urine Glucose (UA) NEGATIVE NEGATIVE Urine Ketones NEGATIVE NEGATIVE Urine Nitrite NEGATIVE NEGATIVE Urine Bilirubin NEGATIVE NEGATIVE Urine Urobilinogen 0.2 < = 1.0 MG/DL Urine Leukocyte Esterase NEGATIVE NEGATIVE Urine RBC (Auto) TRACE-I NEGATIVE Urine RBC NONE /HPF Urine WBC RARE /HPF Urine Crystals NONE /LPF Urine Bacteria TRACE /HPF Urine Casts NONE /LPF Urine Mucus NEGATIVE /LPF Urine Culture Indicated NO My Orders Orders - ZURI OCHOA Cbc With Automated Diff (11/21/20 08:45) Comprehensive Metabolic Panel (11/21/20 08:45) Hs C Reactive Protein (11/21/20 08:45) Lipase (11/21/20 08:45) Chest 1 View, Ap/Pa Only (11/21/20 08:45) Ua Culture If Indicated (11/21/20 08:45) Ondansetron Injection (Zofran Injectio (11/21/20 08:45) Pantoprazole Injection (Protonix Injecti (11/21/20 08:45) BNP (11/21/20 08:47) Protime With Inr (11/21/20 08:52) Partial Thromboplastin Time (11/21/20 08:52) Lidocaine 2% Viscous 15 Ml (Xylocaine Vi (11/21/20 10:15) Antacid Suspension (Mylanta Suspension (11/21/20 10:15) Ct Abdomen/Pelvis Wo (11/21/20 10:02) Medications Given in ED Current Medications Medications Dose Ordered Sig/Allie Route Start Time Stop Time Status Last Admin Dose Admin Al Hydrox/Mg Hydrox/Simethicone 30 ml ONCE ONCE PO 11/21/20 10:15 11/21/20 10:16 DC 11/21/20 10:06 30 ML Lidocaine HCl 15 ml ONCE ONCE PO 11/21/20 10:15 11/21/20 10:16 DC 11/21/20 10:07 15 ML Ondansetron HCl 4 mg ONCE ONCE IVP 11/21/20 08:45 11/21/20 08:48 DC 11/21/20 09:01 4 MG Pantoprazole 40 mg ONCE ONCE IV 11/21/20 08:45 11/21/20 08:48 DC 11/21/20 09:02 40 MG Vital Signs/I&O 11/21/20 08:38 Temp 36.2 Pulse 83 Resp 18 B/P (MAP) 144/76 (98) Pulse Ox 96 O2 Delivery Room Air Capillary Refill : Progress Note #1: Time: 09:00 Progress Note Patient is anxious about her difficulty breathing related to her swelling around her abdomen. We will check a lipase and some labs and get a chest x-ray. Her lungs sound clear and she is oxygenating 96 to 98% on room air with nonlabored breathing. She does have a history of ascites related to cirrhosis. Progress Note #2: Time: 11:34 Progress Note Patient states that her GI cocktail did improve her symptoms. She is feeling much better now and is no longer as anxious appearing on examination. Her belly is still soft with no mesenteric signs. Her vital signs are aseptic. She has experienced no material deterioration during her ER stay. We are going to allow her to go home and follow-up on Sunday with a call to her GI doctor. We are also encouraging her to use Carafate in addition to her pantoprazole 20 mg twice a day. We have also encouraged her to resume her potassium 20 mEq a day with her Bumex. Return precautions were discussed Diagnostic Imaging Diagonstic Imaging: Xray Plain Films/CT/US/NM/MRI: chest Comments NAME: ISAC BIRD MED REC#: [id number] PT STATUS: REG ER : 1950 PHYSICIAN: ZURI OCHOA MD ADMIT DATE: 11/21/20/ER Draft Date of Exam:11/21/20 CHEST 1 VIEW, AP/PA ONLY Indication: Shortness of air. Time of Exam: 9:16 AM Comparison is made with prior chest from 04/14/2019. The heart is enlarged but stable. Cardiac defibrillator remains in place. The lungs are clear. No infiltrate or failure is detected. There is no effusion or pneumothorax. IMPRESSION: Stable chest. No acute feature is detected. Dictated on workstation # [id number] Dict: 11/21/20920 Trans: 11/21/20924 [facility] [id number] Interpreted by: KOKO DAMON MD Electronically signed by: Reviewed: Reviewed by Me Diagonstic Imaging: CT Plain Films/CT/US/NM/MRI: abdomen, pelvis Comments [facility], [place] NAME: ISAC BIRD [facility] REC#: [id number] PT STATUS: REG ER : 1950 PHYSICIAN: ZURI OCHOA MD ADMIT DATE: 11/21/20/ER Signed Date of Exam:11/21/20 CT ABDOMEN/PELVIS WO PROCEDURE: CT abdomen and pelvis without contrast. TECHNIQUE: Multiple contiguous axial images were obtained through the abdomen and pelvis without the use of intravenous contrast. Auto Exposure Controls were utilized during the CT exam to meet ALARA standards for radiation dose reduction. INDICATION: Abdominal bloating. Discomfort. History of diverticulitis. COMPARISON: 11/03/2020. FINDINGS: The heart is prominent. The lung bases are clear. The liver, spleen, pancreas, adrenal glands, and kidneys have a normal noncontrast CT appearance. The gallbladder is surgically absent. There is no pathologically enlarged mesenteric or retroperitoneal adenopathy. The bowel loops are nondilated. Diverticulosis of the sigmoid colon is seen without evidence of acute diverticulitis. There is no free fluid or free air. No acute osseous abnormalities. Chronic height loss is again noted at the L2 vertebral body. There is calcified aortic atherosclerotic plaque without aneurysm. Ureters and bladder are normal. There is no free air, loculated collection, or adenopathy in the pelvis. IMPRESSION: 1. Diverticulosis of the sigmoid colon without evidence of acute diverticulitis. 2. No acute abnormalities in the abdomen and pelvis. No small bowel obstruction, free fluid, or free air. Dictated by: Dictated on workstation # [id number] Dict: 11/21/20 1043 Trans: 11/21/20 1100 6 [id number] Interpreted by: ALFREDO LU DO Electronically signed by: ALFREDO LU DO 11/21/20 1100 Reviewed: Reviewed by Me Departure Impression Primary Impression: Gastritis Qualified Codes: K29.50 - Unspecified chronic gastritis without bleeding Disposition: 01 HOME, SELF-CARE Condition: Improved Departure-Patient Inst. Decision time for Depature: 11:35 Referrals: FARHAT DAILY DO (PCP/Family) Primary Care Physician Patient Instructions: Gastritis (DC) Add. Discharge Instructions: I suspect there may be some inflammation or irritation of the lining of your stomach and this was causing your discomfort. I would suggest you follow-up with Dr. Salmon your GI doctor by calling for an appointment on Sunday. 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 Do this for the next 2 weeks. Continue to take your pantoprazole 20 mg twice a day. If you have breakthrough discomfort you may use Tums, Maalox, Mylanta, Rolaids as necessary. Avoid NSAIDs such as ibuprofen, Aleve or naproxen for the next month. Avoid spicy, acidic or greasy meals such as tomato juice, orange juice etc. For the next 2 weeks. Use your nausea medicine as prescribed. Start taking potassium 20 mEq daily with food as long as you are on the Bumex, unless instructed otherwise by your primary doctor. If you experience severe pain, intractable nausea or other worrisome symptoms not controlled by the medicines above then I would encourage you to return to the ER for further evaluation. Alternatively you may follow-up with your primary care doctor for management of symptoms. Scripts Sucralfate (Carafate) 1 Gm Tablet 1 GM PO QID for 14 Days, #56 TAB 0 Refills Prov: ZURI OCHOA 11/21/20 ZURI OCHOA November 21, 2020 08:51
[2020-11-21 09:12] LABS: BASOPHILS % (AUTO) 0 % (0-10); EOSINOPHILS # (AUTO) 0.1 10^3/uL (0.0-0.3); EOSINOPHILS % (AUTO) 1 % (0-10); HEMATOCRIT 34 % (35-52); HEMOGLOBIN 10.5 g/dL (11.5-16.0); LYMPHOCYTES # (AUTO) 1.4 10^3/uL (1.0-4.0); LYMPHOCYTES % (AUTO) 15 % (12-44); MEAN CORPUSCULAR HEMOGLOBIN 25 pg (25-34); MEAN CORPUSCULAR HGB CONC 31 g/dL (32-36); MEAN CORPUSCULAR VOLUME 82 fL (80-99); MEAN PLATELET VOLUME 9.6 fL (9.0-12.2); MONOCYTES # (AUTO) 0.5 10^3/uL (0.0-1.0); MONOCYTES % (AUTO) 6 % (0-12); NEUTROPHILS # (AUTO) 7.1 10^3/uL (1.8-7.8); NEUTROPHILS % (AUTO) 78 % (42-75); PLATELET COUNT 287 10^3/uL (130-400)
--- NOTE | 2020-11-21 09:25 | Diagnostic Imaging Report ---
Indication: Shortness of air. Time of Exam: 9:16 AM Comparison is made with prior chest from 04/14/2019. The heart is enlarged but stable. Cardiac defibrillator remains in place. The lungs are clear. No infiltrate or failure is detected. There is no effusion or pneumothorax. IMPRESSION: Stable chest. No acute feature is detected. Dictated by: Dictated on workstation # [id number]
[2020-11-21 09:30] LABS: ALBUMIN 4.2 GM/DL (3.2-4.5); POTASSIUM 3.4 MMOL/L (3.6-5.0)
[2020-11-21 09:31] LABS: CALCIUM 8.9 MG/DL (8.5-10.1)
[2020-11-21 09:32] LABS: TOTAL PROTEIN 7.3 GM/DL (6.4-8.2)
[2020-11-21 09:34] LABS: BILIRUBIN,TOTAL 0.7 MG/DL (0.1-1.0)
[2020-11-21 09:36] LABS: CREATININE SERUM 1.27 MG/DL (0.60-1.30); INR 2.4 (0.8-1.4); PROTHROMBIN TIME PATIENT 26.7 SEC (12.2-14.7)
[2020-11-21 09:48] LABS: BILIRUBIN,URINE NEGATIVE (NEGATIVE); CLARITY,URINE CLEAR; COLOR,URINE YELLOW; GLUCOSE, URINE (UA) NEGATIVE (NEGATIVE); KETONES,URINE NEGATIVE (NEGATIVE); LEUKOCYTE ESTERASE ,URINE NEGATIVE (NEGATIVE); NITRITE,URINE NEGATIVE (NEGATIVE); PH,URINE 5.5 (5-9); PROTEIN,URINE NEGATIVE (NEGATIVE)
[2020-11-21 09:55] LABS: BACTERIA,URINE TRACE /HPF; WBC,URINE RARE /HPF
[2020-11-21] MEDS ORDERED: LIDOCAINE 2% VISCOUS 15 ML UDC PO ONE (10:15)
[2020-11-21] MEDS ORDERED: ANTACID SUSP 30 ML UDC (MYLANTA) PO ONE (10:15)
--- NOTE | 2020-11-21 11:01 | Diagnostic Imaging Report ---
PROCEDURE: CT abdomen and pelvis without contrast. TECHNIQUE: Multiple contiguous axial images were obtained through the abdomen and pelvis without the use of intravenous contrast. Auto Exposure Controls were utilized during the CT exam to meet ALARA standards for radiation dose reduction. INDICATION: Abdominal bloating. Discomfort. History of diverticulitis. COMPARISON: 11/03/2020. FINDINGS: The heart is prominent. The lung bases are clear. The liver, spleen, pancreas, adrenal glands, and kidneys have a normal noncontrast CT appearance. The gallbladder is surgically absent. There is no pathologically enlarged mesenteric or retroperitoneal adenopathy. The bowel loops are nondilated. Diverticulosis of the sigmoid colon is seen without evidence of acute diverticulitis. There is no free fluid or free air. No acute osseous abnormalities. Chronic height loss is again noted at the L2 vertebral body. There is calcified aortic atherosclerotic plaque without aneurysm. Ureters and bladder are normal. There is no free air, loculated collection, or adenopathy in the pelvis. IMPRESSION: 1. Diverticulosis of the sigmoid colon without evidence of acute diverticulitis. 2. No acute abnormalities in the abdomen and pelvis. No small bowel obstruction, free fluid, or free air. Dictated by: Dictated on workstation # [id number]
[2020-11-21] MEDS ORDERED: SUCR1TAB36 PO (11:39)
[2020-11-21 11:51] VITALS: BP 121/59
== END 2020-11-21 11:51 | disposition home or self-care (01) ==
LOC: EDUNIT# 08:34 → ER 08:35
DX: K29.70 Gastritis, unspecified, without bleeding (principal); R06.02 Shortness of breath; I13.0 Hypertensive heart and chronic kidney disease with heart failure and stage 1 through stage 4 chronic kidney disease, or unspecified chronic kidney disease; N18.30 Chronic kidney disease, stage 3 unspecified; I50.9 Heart failure, unspecified; I25.10 Atherosclerotic heart disease of native coronary artery without angina pectoris; I48.91 Unspecified atrial fibrillation; G47.30 Sleep apnea, unspecified; E03.9 Hypothyroidism, unspecified; Z87.19 Personal history of other diseases of the digestive system; Z77.22 Contact with and (suspected) exposure to environmental tobacco smoke (acute) (chronic); Z99.89 Dependence on other enabling machines and devices; Z95.810 Presence of automatic (implantable) cardiac defibrillator; Z79.01 Long term (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; Z79.899 Other long term (current) drug therapy; Z79.890 Hormone replacement therapy; Z88.8 Allergy status to other drugs, medicaments and biological substances; Z88.2 Allergy status to sulfonamides; Z88.5 Allergy status to narcotic agent
CPT/HCPCS: 36415; 71045; 74176; 80053; 81000; 83690; 83880; 85025; 85610; 85730; 86141

== ENCOUNTER → 2021-04-27 | Outpatient (CLI) | payer MEDICARE, OTHER ==
[~2021-04-27] MED LIST changes: -CRAN500T2 PO; +CRAN500T3 PO; +SUCR1TAB36 PO
--- NOTE | 2021-04-27 12:38 | Diagnostic Imaging Report ---
INDICATION: Routine screening. COMPARISON: 04/26/2020 and 04/24/2019. TECHNIQUE: 2D and 3D bilateral screening mammography was performed with CAD. FINDINGS: Scattered fibroglandular densities are identified bilaterally. There are benign calcifications bilaterally. No mass or malignant-appearing microcalcifications are seen. The pacemaker in the left axilla is again noted. IMPRESSION: No mammographic features suspicious for malignancy are identified. ACR BI-RADS Category 2: Benign findings. Result letter will be mailed to the patient. Note: At least 10% of breast cancer is not imaged by mammography. Dictated by: Dictated on workstation # [id number]
== END ==
LOC: RAD 11:21
PROVIDERS: ATTEND Family Medicine
DX: Z12.31 Encounter for screening mammogram for malignant neoplasm of breast (principal)
CPT/HCPCS: 77063; 77067

== ENCOUNTER 2021-06-10 12:12 | Emergency (ER) | payer MEDICARE, OTHER ==
[~2021-06-10] VITALS: Ht 150 cm; Wt 59.0 kg
[~2021-06-10 12:12] MED LIST changes: -AMIO200T6 PO; +AMIO200T65 PO; +POTA-160 PO; -POTA10TA6 PO
[2021-06-10 13:03] LABS: BASOPHILS % (AUTO) 0 % (0-10); EOSINOPHILS % (AUTO) 0 % (0-10); HEMATOCRIT 42 % (35-52); HEMOGLOBIN 13.8 g/dL (11.5-16.0); LYMPHOCYTES # (AUTO) 1.8 10^3/uL (1.0-4.0); LYMPHOCYTES % (AUTO) 18 % (12-44); MEAN CORPUSCULAR HEMOGLOBIN 30 pg (25-34); MEAN CORPUSCULAR HGB CONC 33 g/dL (32-36); MEAN CORPUSCULAR VOLUME 92 fL (80-99); MONOCYTES # (AUTO) 0.9 10^3/uL (0.0-1.0); MONOCYTES % (AUTO) 8 % (0-12); NEUTROPHILS # (AUTO) 7.5 10^3/uL (1.8-7.8); NEUTROPHILS % (AUTO) 73 % (42-75); PLATELET COUNT 291 10^3/uL (130-400); WHITE BLOOD COUNT 10.3 10^3/uL (4.3-11.0)
[2021-06-10 13:07] LABS: INR 3.9 (0.8-1.4); PROTHROMBIN TIME PATIENT 38.9 SEC (12.2-14.7)
[2021-06-10 13:09] LABS: ALBUMIN 4.4 GM/DL (3.2-4.5)
--- NOTE | 2021-06-10 13:10 | ED Abdominal Pain ---
General Chief Complaint: Abdominal/GI Problems Stated Complaint: DIVERTICULITIS Nursing Triage Note: PT AMB TO RM 8 W REPORTS OF LLQ PAIN/CRAMPING SX . PT HAS SEEN PCP FOR THIS AND WAS GIVEN STREOIDS AND ANTIBIOTICS, PT TO ED D/T PAIN AND NAUSEA. PT A&OX4. Source of Information: Patient Exam Limitations: No Limitations History of Present Illness Date Seen by Provider: Jun 10, 2021 Time Seen by Provider: 13:09 Initial Comments So the can I do not to ER with left lower quadrant abdominal pain and cramping since . She is been to primary care and was given a course of Flagyl and then some antibiotic injection plus steroid injection. She comes in today with worsening pain and nausea. Timing/Duration: 1 Week Severity/Quality: Moderate Location: LLQ Radiation: No Radiation Activities at Onset: None Associated Symptoms: Nausea/Vomiting Allergies and Home Medications Allergies Coded Allergies: rosuvastatin (Unverified Allergy, Mild, 03/06/18) sacubitril (Verified Allergy, Mild, RASH, 07/01/18) PATIENT HAS ITCHING FROM MEDICATION valsartan (Verified Allergy, Mild, RASH, 07/01/18) PATIENT HAS ITCHING FROM MEDICATION Sulfa (Sulfonamide Antibiotics) (Verified Allergy, Unknown, 03/06/18) fentanyl (Verified Adverse Reaction, Unknown, Vomiting, 04/14/19) Patient Home Medication List Home Medication List Reviewed: Yes Allopurinol (Allopurinol) 100 Mg Tablet, 100 MG PO HS, (Reported) Entered as Reported by: THOMPSON JENKINS on 08/20/20 1537 Amiodarone HCl (Amiodarone HCl) 200 Mg Tablet, 200 MG PO DAILY, (Reported) Entered as Reported by: MARNIE GONZALEZ on 04/15/19 1027 Bumetanide (Bumetanide) 1 Mg Tablet, 1 MG PO BID, (Reported) Entered as Reported by: MARNIE GONZALEZ on 04/15/19 1027 Carvedilol (Carvedilol) 6.25 Mg Tablet, 3.125 MG PO BID, (Reported) Entered as Reported by: MARNIE GONZALEZ on 04/15/19 1027 Colestipol HCl (Colestipol HCl) 1 Gm Tablet, 1 GM PO TID PRN for DIARRHEA, (Reported) Entered as Reported by: THOMPSON JENKINS on 02/11/20 1111 Doxepin HCl (Doxepin HCl) 10 Mg Capsule, 20 MG PO HS, (Reported) Entered as Reported by: THOMPSON JENKINS on 11/03/20 154 Levothyroxine Sodium (Levothyroxine Sodium) 25 Mcg Tablet, 25 MCG PO MO,,,DENG, (Reported) Entered as Reported by: THOMPSON JENKINS on 11/03/20 154 Melatonin (Melatonin) 10 Mg Tablet, 10 MG PO HS, (Reported) Entered as Reported by: THOMPSON JENKINS on 08/20/20 154 Methenamine/Sodium Salicylate (Azo Urinary Tract Defense Tab) 1 Each Tablet, 1 EACH PO DAILY, (Reported) Entered as Reported by: THOMPSON JENKINS on 11/03/20 154 Metronidazole (Metronidazole) 500 Mg Tablet, 500 MG PO BID, (Reported) Entered as Reported by: THOMPSON JENKINS on 11/03/20 154 Ondansetron HCl (Ondansetron HCl) 4 Mg Tablet, 4 MG PO Q6H PRN for NAUSEA/VOMITING-1ST LINE, (Reported) Entered as Reported by: THOMPSON JENKINS on 11/03/20 154 Spironolactone (Spironolactone) 25 Mg Tablet, 25 MG PO DAILY, (Reported) Entered as Reported by: THOMPSON JENKINS on 11/03/20 155 Spironolactone (Spironolactone) 25 Mg Tablet, 25 MG PO 1200 PRN for SWELLING, (Reported) Entered as Reported by: THOMPSON JENKINS on 11/03/20 155 Sucralfate (Carafate) 1 Gm Tablet, 1 GM PO QID Prescribed by: ZURI OCHOA on 11/21/20 1139 Warfarin Sodium (Warfarin Sodium) 2.5 Mg Tablet, 2.5 MG PO SUN,SUN,,SUN, (Reported) Entered as Reported by: THOMPSON JENKINS on 08/20/20 153 Warfarin Sodium (Warfarin Sodium) 2.5 Mg Tablet, 5 MG PO SUN,SUN, (Reported) Entered as Reported by: THOMPSON JENKINS on 11/03/20 154 Review of Systems Review of Systems Constitutional: see HPI EENTM: No Symptoms Reported Respiratory: No Symptoms Reported Cardiovascular: No Symptoms Reported Gastrointestinal: See HPI, Abdominal Pain, Diarrhea, Nausea Genitourinary: No Symptoms Reported Musculoskeletal: no symptoms reported Skin: no symptoms reported Psychiatric/Neurological: No Symptoms Reported Endocrine: No Symptoms Reported Hematologic/Lymphatic: No Symptoms Reported Past Ayryctc-Wtrkzi-Kzshme Hx Patient Social History Tobacco Use?: No Use of E-Cig and/or Vaping dev: No Substance use?: No Alcohol Use?: No Immunizations Up To Date Tetanus Booster (TDap): Unknown PED Vaccines UTD: No Influenza Vaccine Up-to-Date: Yes; Up-to-Date First/Initial COVID19 Vaccinat: 2020 Second COVID19 Vaccination Gurpreet: 2020 Third COVID19 Vaccination Date: 2020 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: [employer] Seasonal Allergies Seasonal Allergies: No Past Medical History Surgery/Hospitalization HX: CHF, PACEMAKER Surgeries: Yes Bladder Surgery, Breast, Cardiac, Defibrillator, Gallbladder, Hysterectomy, Oophorectomy, Pacemaker Respiratory: Yes Sleep Apnea Currently Using CPAP: Yes (at night) Currently Using BIPAP: No Cardiac: Yes Atrial Fibrillation, Cardiomyopathy, Coronary Artery Disease, Hypertension, Irregular Heartbeat, Valvular Heart Disease Neurological: No 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 ZARATE) UTI-Chronic Gastrointestinal: Yes Gastroesophageal Reflux, Liver Disease/Jaundice, Diverticulosis, Polyps, C-Diff Musculoskeletal: Yes Chronic Back Pain Endocrine: No HEENT: Yes (left eye problem with vision) Loss of Vision: Bilateral Hearing Impairment: Denies Cancer: No Psychosocial: Yes Anxiety, Depression Integumentary: No Blood Disorders: No Adverse Reaction/Blood Tranf: No (HAS HAD BLOOD WITH NO REACTIION) Family Medical History Heart Disease, CAD Under 55 Years Old Physical Exam Vital Signs Vital Signs - First Documented 06/10/21 12:27 Temp 36.9 Pulse 83 Resp 20 B/P (MAP) 135/74 (94) Pulse Ox 96 O2 Delivery Room Air Capillary Refill : Less Than 3 Seconds Height/Weight/BMI Height: 4'11.00" Weight: 130lbs. 14.4oz. [id number]; 26.00 BMI Method:Stated General Appearance: WD/WN, no apparent distress HEENT: PERRL/EOMI, normal ENT inspection Respiratory: no respiratory distress, no accessory muscle use Gastrointestinal: normal bowel sounds, soft, tenderness Neurologic/Psychiatric: alert, normal mood/affect, oriented x 3 Skin: normal color, warm/dry Procedures/Interventions Date of ETT Placement: Jan 07, 2018 Progress/Results/Core Measures Results/Orders Lab Results Laboratory Tests Test 06/10/21 12:35 Range/Units White Blood Count 10.3 4.3-11.0 10^3/uL Red Blood Count 4.58 3.80-5.11 10^6/uL Hemoglobin 13.8 11.5-16.0 g/dL Hematocrit 42 35-52 % Mean Corpuscular Volume 92 80-99 fL Mean Corpuscular Hemoglobin 30 25-34 pg Mean Corpuscular Hemoglobin Concent 33 32-36 g/dL Red Cell Distribution Width 14.8 H 10.0-14.5 % Platelet Count 291 130-400 10^3/uL Mean Platelet Volume 10.0 9.0-12.2 fL Immature Granulocyte % (Auto) 0 % Neutrophils (%) (Auto) 73 42-75 % Lymphocytes (%) (Auto) 18 12-44 % Monocytes (%) (Auto) 8 0-12 % Eosinophils (%) (Auto) 0 0-10 % Basophils (%) (Auto) 0 0-10 % Neutrophils # (Auto) 7.5 1.8-7.8 10^3/uL Lymphocytes # (Auto) 1.8 1.0-4.0 10^3/uL Monocytes # (Auto) 0.9 0.0-1.0 10^3/uL Eosinophils # (Auto) 0.0 0.0-0.3 10^3/uL Basophils # (Auto) 0.0 0.0-0.1 10^3/uL Immature Granulocyte # (Auto) 0.0 0.0-0.1 10^3/uL Prothrombin Time 38.9 H 12.2-14.7 SEC INR Comment 3.9 H 0.8-1.4 Sodium Level 135 135-145 MMOL/L Potassium Level 4.0 3.6-5.0 MMOL/L Chloride Level 100 98-107 MMOL/L Carbon Dioxide Level 23 21-32 MMOL/L Anion Gap 12 5-14 MMOL/L Blood Urea Nitrogen 26 H 7-18 MG/DL Creatinine 1.44 H 0.60-1.30 MG/DL Estimat Glomerular Filtration Rate 36 BUN/Creatinine Ratio 18 Glucose Level 107 H 70-105 MG/DL Calcium Level 9.0 8.5-10.1 MG/DL Corrected Calcium 8.7 8.5-10.1 MG/DL Total Bilirubin 0.7 0.1-1.0 MG/DL Aspartate Amino Transf (AST/SGOT) 24 5-34 U/L Alanine Aminotransferase (ALT/SGPT) 13 0-55 U/L Alkaline Phosphatase 97 40-136 U/L C-Reactive Protein High Sensitivity 1.00 H 0.00-0.50 MG/DL B-Type Natriuretic Peptide 413.3 H <100.0 PG/ML Total Protein 7.3 6.4-8.2 GM/DL Albumin 4.4 3.2-4.5 GM/DL My Orders Orders - ZIYAD BUNN APRN Cbc With Automated Diff (06/10/21 12:41) Bnp Villalba (06/10/21 12:41) Chest 1 View, Ap/Pa Only (06/10/21 12:41) Comprehensive Metabolic Panel (06/10/21 12:41) Hs C Reactive Protein (06/10/21 12:41) Ed Iv/Invasive Line Start (06/10/21 12:41) Protime With Inr (06/10/21 12:43) Ct Abdomen/Pelvis Wo (06/10/21 13:23) Hs C Reactive Protein (06/10/21 13:31) Procalcitonin (Pct) (06/10/21 13:31) Ua Culture If Indicated (06/10/21 13:48) Vital Signs/I&O 06/10/21 12:27 Temp 36.9 Pulse 83 Resp 20 B/P (MAP) 135/74 (94) Pulse Ox 96 O2 Delivery Room Air Blood Pressure Mean: 94 Departure Communication (Admissions) NAME: ISAC BIRD MED REC#: [id number] PT STATUS: REG ER : 1950 PHYSICIAN: ZIYAD BUNN APRN ADMIT DATE: 06/10/21/ER Draft Date of Exam:06/10/21 CT ABDOMEN/PELVIS WO EXAMINATION: CT abdomen and pelvis without contrast. TECHNIQUE: Multiple contiguous axial images were obtained through the abdomen and pelvis without the use of intravenous contrast. All CT scans use one or more of the following dose optimizing techniques: automated exposure control, MA and/or KvP adjustment based on patient size and exam type or iterative reconstruction. HISTORY: Left lower quadrant pain. COMPARISON: 11/21/2020. FINDINGS: Lung bases: Bibasilar dependent atelectasis. Solid organs: The liver is normal. The gallbladder is surgically absent. There is no biliary ductal dilation. Pancreas is normal. Spleen is normal. Adrenal glands are normal. The kidneys are normal without visualized calculus or hydronephrosis. Bowel: The stomach and small bowel are normal without obstruction. There are a few scattered colonic diverticula. The appendix is normal. Peritoneum: There is trace free fluid in the abdomen and pelvis. No intra-abdominal free air or loculated fluid collection. No suspicious lymphadenopathy. Vasculature: Normal without aneurysm. Musculoskeletal: Degenerative changes of the spine without suspicious osseous lesion or compression fracture. Pelvis: The uterus is surgically absent. No adnexal mass. The urinary bladder is normal. IMPRESSION: 1. No acute abnormality seen within the abdomen or pelvis. 2. Mild ascites which is nonspecific. 3. Colonic diverticulosis without findings to suggest diverticulitis. Dictated on workstation # [id number] Dict: 06/10/21 1332 Trans: 06/10/21 1348 [id number] Interpreted by: CHI RG DO Electronically signed by: [facility] [place], [place] NAME: ISAC BIRD [facility] REC#: [id number] PT STATUS: REG ER : 1950 PHYSICIAN: ZIYAD BUNN APRN ADMIT DATE: 06/10/21/ER Draft Date of Exam:06/10/21 CHEST 1 VIEW, AP/PA ONLY EXAMINATION: Chest, one view. HISTORY: Hx CHF. COMPARISON: 11/21/2020. FINDINGS: Stable enlargement of the cardiac silhouette. Left-sided cardiac device is unchanged. The lungs are clear without consolidation, pleural effusion, or pneumothorax. The osseous structures are intact. IMPRESSION: 1. No acute radiographic abnormality in the chest. Dictated on workstation # [id number] Dict: 06/10/21 1318 Trans: 06/10/21 1321 [id number] Interpreted by: CHI RG DO Electronically signed by: Impression Primary Impression: Abdominal pain Disposition: 01 HOME, SELF-CARE Condition: Stable Departure-Patient Inst. Decision time for Depature: 13:59 Referrals: FARHAT DAILY DO (PCP/Family) Primary Care Physician Patient Instructions: No Instuctions Given Add. Discharge Instructions: 1. Your INR was little high at 3.9. Subsequently, you should skip tonight's dose of Coumadin. You can resume normal dosing tomorrow. Follow-up with Dr. Daily next week. You can stop the steroids and you do not need any additional antibiotics at this point. I have sent in some pain medication for you to [facility]. It can cause constipation so try to increase fluid intake. You can s tart to reintroduce a more normal diet with more solid foods. Return to ER for any fevers or intolerable pain. The facial flushing and rash is a side effect of the steroid injection. It can also cause a lot of anxiety. The symptoms will improve over the following days. Scripts Oxycodone HCl (Oxycodone HCl) 5 Mg Capsule 5 MG PO Q6H PRN for PAIN-MODERATE (5-7) for 7 Days, #10 CAP Prov: ZIYAD BUNN APRN 06/10/21 Copy Copies To 1: FARHAT DAILY PETER J APRN Jun 10, 2021 13:10
[2021-06-10 13:11] LABS: TOTAL PROTEIN 7.3 GM/DL (6.4-8.2)
[2021-06-10 13:13] LABS: BILIRUBIN,TOTAL 0.7 MG/DL (0.1-1.0)
[2021-06-10 13:15] LABS: CREATININE SERUM 1.44 MG/DL (0.60-1.30)
--- NOTE | 2021-06-10 13:21 | Diagnostic Imaging Report ---
EXAMINATION: Chest, one view. HISTORY: Hx CHF. COMPARISON: 11/21/2020. FINDINGS: Stable enlargement of the cardiac silhouette. Left-sided cardiac device is unchanged. The lungs are clear without consolidation, pleural effusion, or pneumothorax. The osseous structures are intact. IMPRESSION: 1. No acute radiographic abnormality in the chest. Dictated by: Dictated on workstation # [id number]
--- NOTE | 2021-06-10 13:49 | Diagnostic Imaging Report ---
EXAMINATION: CT abdomen and pelvis without contrast. TECHNIQUE: Multiple contiguous axial images were obtained through the abdomen and pelvis without the use of intravenous contrast. All CT scans use one or more of the following dose optimizing techniques: automated exposure control, MA and/or KvP adjustment based on patient size and exam type or iterative reconstruction. HISTORY: Left lower quadrant pain. COMPARISON: 11/21/2020. FINDINGS: Lung bases: Bibasilar dependent atelectasis. Solid organs: The liver is normal. The gallbladder is surgically absent. There is no biliary ductal dilation. Pancreas is normal. Spleen is normal. Adrenal glands are normal. The kidneys are normal without visualized calculus or hydronephrosis. Bowel: The stomach and small bowel are normal without obstruction. There are a few scattered colonic diverticula. The appendix is normal. Peritoneum: There is trace free fluid in the abdomen and pelvis. No intra-abdominal free air or loculated fluid collection. No suspicious lymphadenopathy. Vasculature: Normal without aneurysm. Musculoskeletal: Degenerative changes of the spine without suspicious osseous lesion or compression fracture. Pelvis: The uterus is surgically absent. No adnexal mass. The urinary bladder is normal. IMPRESSION: 1. No acute abnormality seen within the abdomen or pelvis. 2. Mild ascites which is nonspecific. 3. Colonic diverticulosis without findings to suggest diverticulitis. Dictated by: Dictated on workstation # [id number]
[2021-06-10] MEDS ORDERED: OXYC5CAP18 PO (14:01)
[2021-06-10 14:07] LABS: BILIRUBIN,URINE NEGATIVE (NEGATIVE); CLARITY,URINE CLEAR; COLOR,URINE YELLOW; GLUCOSE, URINE (UA) NEGATIVE (NEGATIVE); KETONES,URINE NEGATIVE (NEGATIVE); LEUKOCYTE ESTERASE ,URINE NEGATIVE (NEGATIVE); NITRITE,URINE NEGATIVE (NEGATIVE); PROTEIN,URINE NEGATIVE (NEGATIVE)
[2021-06-10 14:18] VITALS: BP 121/69
[2021-06-10 14:47] LABS: BACTERIA,URINE NEGATIVE /HPF
== END 2021-06-10 14:18 | disposition home or self-care (01) ==
LOC: EDUNIT# 12:12 → ER 12:13
DX: R10.32 Left lower quadrant pain (principal); I11.0 Hypertensive heart disease with heart failure; I50.9 Heart failure, unspecified; G47.30 Sleep apnea, unspecified; I48.91 Unspecified atrial fibrillation; Z79.01 Long term (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
CPT/HCPCS: 36415; 71045; 74176; 80053; 81000; 83880; 84145; 85025; 85610; 86141

== ENCOUNTER 2021-07-08 21:50 | Inpatient (IN) | payer MEDICARE, OTHER ==
[~2021-07-08] VITALS: Ht 149.9 cm; Wt 59.5 kg
[~2021-07-08 21:50] MED LIST changes: +OXYC5CAP18 PO
[2021-07-08] MEDS ORDERED: FUROSEMIDE 40 MG/4 ML INJ (LASIX) IVP ONE (22:15)
[2021-07-08 22:17] LABS: BASOPHILS # (AUTO) 0.1 10^3/uL (0.0-0.1); BASOPHILS % (AUTO) 1 % (0-10); EOSINOPHILS # (AUTO) 0.1 10^3/uL (0.0-0.3); EOSINOPHILS % (AUTO) 1 % (0-10); HEMATOCRIT 45 % (35-52); HEMOGLOBIN 14.1 g/dL (11.5-16.0); LYMPHOCYTES # (AUTO) 2.5 10^3/uL (1.0-4.0); LYMPHOCYTES % (AUTO) 28 % (12-44); MEAN CORPUSCULAR HEMOGLOBIN 29 pg (25-34); MEAN CORPUSCULAR HGB CONC 31 g/dL (32-36); MEAN CORPUSCULAR VOLUME 91 fL (80-99); MEAN PLATELET VOLUME 9.6 fL (9.0-12.2); MONOCYTES # (AUTO) 0.6 10^3/uL (0.0-1.0); MONOCYTES % (AUTO) 6 % (0-12); NEUTROPHILS # (AUTO) 5.8 10^3/uL (1.8-7.8); NEUTROPHILS % (AUTO) 64 % (42-75); PLATELET COUNT 276 10^3/uL (130-400)
--- NOTE | 2021-07-08 22:26 | ED Cardiac General ---
History of Present Illness General Chief Complaint: Cardiac/General Problems Stated Complaint: CHF, SOB Source: patient Exam Limitations: no limitations History of Present Illness Date Seen by Provider: Jul 08, 2021 Time Seen by Provider: 21:58 Initial Comments Here with complaint of abdominal swelling, leg swelling, shortness of breath, orthopnea and dyspnea with exertion. Does have chronic cough that is unchanged. History of pulmonary hypertension and cirrhosis of the liver. She also has cardiac dysfunction and has ventricular pacemaker with known CHF and EF of 35 to 40% on last echo done earlier this year. She is on diuretics as well as warfarin. Reports taking her meds as directed although has doubled her diuretic with doctors instructions. She has been vaccinated and boosted for COVID-19. Timing/Duration: 1 week, getting worse Severity: moderate Location: abdomen (Fullness with shortness of breath) Activities at Onset: none Prior CP/Workup: cardiac cath, echocardiography, stress test Modifying Factors: worse with exercise, worse with lying down; improves with rest NTG SL FLEET OPERATIONS MANAGER: No ASA po FLEET OPERATIONS MANAGER: No (On warfarin) Associated Systoms: No Chest Pain; Cough; No Fever/Chills, No Nausea/Vomiting; Shortness of Air, Other (Pain in the upper abdomen with breathing) Allergies and Home Medications Allergies Coded Allergies: rosuvastatin (Unverified Allergy, Mild, 03/06/18) sacubitril (Verified Allergy, Mild, RASH, 07/01/18) PATIENT HAS ITCHING FROM MEDICATION valsartan (Verified Allergy, Mild, RASH, 07/01/18) PATIENT HAS ITCHING FROM MEDICATION Sulfa (Sulfonamide Antibiotics) (Verified Allergy, Unknown, 03/06/18) fentanyl (Verified Adverse Reaction, Unknown, Vomiting, 04/14/19) Patient Home Medication List Home Medication List Reviewed: Yes Allopurinol (Allopurinol) 100 Mg Tablet, 100 MG PO HS, (Reported) Entered as Reported by: THOMPSON JENKINS on 08/20/20 1537 Amiodarone HCl (Amiodarone HCl) 200 Mg Tablet, 200 MG PO DAILY, (Reported) Entered as Reported by: MARNIE GONZALEZ on 04/15/19 1027 Bumetanide (Bumetanide) 1 Mg Tablet, 1 MG PO BID, (Reported) Entered as Reported by: MARNIE GONZALEZ on 04/15/19 1027 Carvedilol (Carvedilol) 6.25 Mg Tablet, 3.125 MG PO BID, (Reported) Entered as Reported by: MARNIE GONZALEZ on 04/15/19 1027 Colestipol HCl (Colestipol HCl) 1 Gm Tablet, 1 GM PO TID PRN for DIARRHEA, (Reported) Entered as Reported by: THOMPSON JENKINS on 02/11/20 1111 Doxepin HCl (Doxepin HCl) 10 Mg Capsule, 20 MG PO HS, (Reported) Entered as Reported by: THOMPSON JENKINS on 11/03/20 154 Levothyroxine Sodium (Levothyroxine Sodium) 25 Mcg Tablet, 25 MCG PO MO,TU,WE,DENG, (Reported) Entered as Reported by: THOMPSON JENKINS on 11/03/20 154 Melatonin (Melatonin) 10 Mg Tablet, 10 MG PO HS, (Reported) Entered as Reported by: THOMPSON JENKINS on 08/20/20 1545 Methenamine/Sodium Salicylate (Azo Urinary Tract Defense Tab) 1 Each Tablet, 1 EACH PO DAILY, (Reported) Entered as Reported by: THOMPSON JENKINS on 11/03/20 154 Metronidazole (Metronidazole) 500 Mg Tablet, 500 MG PO BID, (Reported) Entered as Reported by: THOMPSON JENKINS on 11/03/20 154 Ondansetron HCl (Ondansetron HCl) 4 Mg Tablet, 4 MG PO Q6H PRN for NAUSEA/VOMITING-1ST LINE, (Reported) Entered as Reported by: THOMPSON JENKINS on 11/03/20 154 Oxycodone HCl (Oxycodone HCl) 5 Mg Capsule, 5 MG PO Q6H PRN for PAIN-MODERATE (5-7) Prescribed by: ZIYAD BUNN on 06/10/21 1401 Spironolactone (Spironolactone) 25 Mg Tablet, 25 MG PO DAILY, (Reported) Entered as Reported by: THOMPSON JENKINS on 11/03/20 155 Spironolactone (Spironolactone) 25 Mg Tablet, 25 MG PO 1200 PRN for SWELLING, (Reported) Entered as Reported by: THOMPSON JENKINS on 11/03/20 155 Sucralfate (Carafate) 1 Gm Tablet, 1 GM PO QID Prescribed by: ZURI OCHOA on 11/21/20 1139 Warfarin Sodium (Warfarin Sodium) 2.5 Mg Tablet, 2.5 MG PO SUN,SUN,,SUN, (Reported) Entered as Reported by: THOMPSON JENKINS on 08/20/20 1537 Warfarin Sodium (Warfarin Sodium) 2.5 Mg Tablet, 5 MG PO , (Reported) Entered as Reported by: THOMPSON JENKINS on 11/03/20 1549 Review of Systems Review of Systems Constitutional: see HPI; No chills, No fever EENTM: Nose Congestion (Chronic); No Throat Pain Respiratory: Cough, Orthopnea, Shortness of Air, SOA With Exertion Cardiovascular: Denies Chest Pain; Edema Gastrointestinal: Denies Nausea, Denies Vomiting Genitourinary: No Symptoms Reported Musculoskeletal: No back pain; muscle pain (Abdominal muscle) Skin: No change in color, No lesions Psychiatric/Neurological: No Symptoms Reported All Other Systems Reviewed Negative Unless Noted: Yes Past Nbbplny-Wkltge-Xcdbop Hx Patient Social History Tobacco Use?: No Substance use?: No Alcohol Use?: No Immunizations Up To Date Tetanus Booster (TDap): Unknown PED Vaccines UTD: No First/Initial COVID19 Vaccinat: 2020 Second COVID19 Vaccination Gurpreet: 2020 Third COVID19 Vaccination Date: 2020 Seasonal Allergies Seasonal Allergies: No Past Medical History Surgery/Hospitalization HX: CHF, PACEMAKER, ANGEL LUIS, PULM HTN, CIRRHOSIS OF LIVER Surgeries: Yes Bladder Surgery, Breast, Cardiac, Defibrillator, Gallbladder, Hysterectomy, Oophorectomy, Pacemaker Respiratory: Yes Sleep Apnea Currently Using CPAP: Yes (at night) Currently Using BIPAP: No Cardiac: Yes Atrial Fibrillation, Cardiomyopathy, Coronary Artery Disease, Hypertension, Irregular Heartbeat, Valvular Heart Disease Neurological: No Reproductive Disorders: No (X1 MISCARRIAGE) 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 ZARATE) UTI-Chronic Gastrointestinal: Yes Gastroesophageal Reflux, Liver Disease/Jaundice, Diverticulosis, Polyps, C-Diff Musculoskeletal: Yes Chronic Back Pain Endocrine: No HEENT: Yes (left eye problem with vision) Loss of Vision: Bilateral Hearing Impairment: Denies Cancer: No Psychosocial: Yes Anxiety, Depression Integumentary: No Blood Disorders: No Adverse Reaction/Blood Tranf: No (HAS HAD BLOOD WITH NO REACTIION) Family Medical History Reviewed Nursing Family Hx Heart Disease, CAD Under 55 Years Old Physical Exam Vital Signs Vital Signs - First Documented 07/08/21 22:03 Temp 36.3 Pulse 73 Resp 18 B/P (MAP) 138/91 (107) Pulse Ox 96 O2 Delivery Room Air Capillary Refill : Height, Weight, BMI Height: 4'11.00" Weight: 130lbs. 14.4oz. 58.773834sr; 26.00 BMI Method:Stated General Appearance: No Apparent Distress, WD/WN HEENT: PERRL/EOMI, Pharynx Normal Neck: Non Tender, Supple Respiratory: No Respiratory Distress, Crackles (Bilateral bases) Cardiovascular: Regular Rate, Rhythm, No Murmur, Other (Ventricular paced rhythm) Gastrointestinal: Non Tender, Soft, Distended Extremity: Normal Range of Motion, Non Tender, Pedal Edema (1+ ~2+ the lower extremities up to knees.) Neurologic/Psychiatric: Alert, Oriented x3 Skin: Normal Color, Warm/Dry Procedures/Interventions Date of ETT Placement: Jan 07, 2018 Progress/Results/Core Measures Results/Orders Lab Results Laboratory Tests Test 07/08/21 22:05 Range/Units White Blood Count 9.0 4.3-11.0 10^3/uL Red Blood Count 4.92 3.80-5.11 10^6/uL Hemoglobin 14.1 11.5-16.0 g/dL Hematocrit 45 35-52 % Mean Corpuscular Volume 91 80-99 fL Mean Corpuscular Hemoglobin 29 25-34 pg Mean Corpuscular Hemoglobin Concent 31 L 32-36 g/dL Red Cell Distribution Width 15.3 H 10.0-14.5 % Platelet Count 276 130-400 10^3/uL Mean Platelet Volume 9.6 9.0-12.2 fL Immature Granulocyte % (Auto) 0 % Neutrophils (%) (Auto) 64 42-75 % Lymphocytes (%) (Auto) 28 12-44 % Monocytes (%) (Auto) 6 0-12 % Eosinophils (%) (Auto) 1 0-10 % Basophils (%) (Auto) 1 0-10 % Neutrophils # (Auto) 5.8 1.8-7.8 10^3/uL Lymphocytes # (Auto) 2.5 1.0-4.0 10^3/uL Monocytes # (Auto) 0.6 0.0-1.0 10^3/uL Eosinophils # (Auto) 0.1 0.0-0.3 10^3/uL Basophils # (Auto) 0.1 0.0-0.1 10^3/uL Immature Granulocyte # (Auto) 0.0 0.0-0.1 10^3/uL Prothrombin Time 26.0 H 12.2-14.7 SEC INR Comment 2.3 H 0.8-1.4 Activated Partial Thromboplast Time 43 H 24-35 SEC Sodium Level 142 135-145 MMOL/L Potassium Level 3.7 3.6-5.0 MMOL/L Chloride Level 102 98-107 MMOL/L Carbon Dioxide Level 23 21-32 MMOL/L Anion Gap 17 H 5-14 MMOL/L Blood Urea Nitrogen 26 H 7-18 MG/DL Creatinine 1.29 0.60-1.30 MG/DL Estimat Glomerular Filtration Rate 41 BUN/Creatinine Ratio 20 Glucose Level 112 H 70-105 MG/DL Calcium Level 9.3 8.5-10.1 MG/DL Corrected Calcium 9.0 8.5-10.1 MG/DL Magnesium Level 2.0 1.6-2.4 MG/DL Total Bilirubin 0.7 0.1-1.0 MG/DL Aspartate Amino Transf (AST/SGOT) 24 5-34 U/L Alanine Aminotransferase (ALT/SGPT) 14 0-55 U/L Alkaline Phosphatase 143 H 40-136 U/L Myoglobin 46.9 10.0-92.0 NG/ML Troponin I 0.063 H <0.028 NG/ML B-Type Natriuretic Peptide 696.4 H <100.0 PG/ML Total Protein 7.8 6.4-8.2 GM/DL Albumin 4.4 3.2-4.5 GM/DL My Orders Orders - KWAME QUEEN MD Cbc With Automated Diff (07/08/21 22:10) Magnesium (07/08/21 22:10) Chest 1 View, Ap/Pa Only (07/08/21 22:10) Ekg Tracing (07/08/21 22:10) Comprehensive Metabolic Panel (07/08/21 22:10) Myoglobin Serum (07/08/21 22:10) Protime With Inr (07/08/21 22:10) Partial Thromboplastin Time (07/08/21 22:10) O2 (07/08/21 22:10) Monitor-Rhythm Ecg Trace Only (07/08/21 22:10) Lipid Panel (07/09/21 06:00) Ed Iv/Invasive Line Start (07/08/21 22:10) Troponin I [place] (07/08/21 22:10) Bnp [place] (07/08/21 22:10) Furosemide Injection (Lasix Injection) (07/08/21 22:15) Medications Given in ED Current Medications Medications Dose Ordered Sig/Allie Route Start Time Stop Time Status Last Admin Dose Admin Furosemide 40 mg ONCE ONCE IVP 07/08/21 22:15 07/08/21 22:16 DC 07/08/21 22:46 40 MG Vital Signs/I&O 07/08/21 22:03 Temp 36.3 Pulse 73 Resp 18 B/P (MAP) 138/91 (107) Pulse Ox 96 O2 Delivery Room Air Progress Progress Note : Progress Note Seen and evaluated. IV, labs, chest x-ray and EKG ordered. No aspirin as patient is not currently having chest pain and she is on warfarin. Lasix 40 mg IV due to edema and history of heart failure. Old records reviewed including previous echo with EF of 35 to 40% and previous heart cath showing mild, nonobstructive disease in two thousand eighteen. Monitor patient. 2308: Patient has findings consistent with acute heart failure. Case reviewed with Dr. Hurley, on-call for cardiology. He agrees with the Lasix and we will continue that twice daily. Patient is on warfarin at 2.5 mg daily and she is currently therapeutic. She apparently has recently been treated for urinary tract infection and had a shot yesterday that should clear that but we will go ahead and get UA. She has no findings concerning for sepsis or illness currently. Dr. Hurley is agrees to see the patient in consult. I did discuss the case with Dr. Ruffin, on-call for Dr. Daily and she accepts patient for admission, inpatient status. Discussed with patient who agrees with plan. Patient does have slight bump in troponin but this appears to be chronic and is likely related to her ventricular pacing and may be from the acute heart failure as well. No findings for acute CO. This was discussed with Dr. Hurley who agrees. Initial ECG Impression Date: Jul 08, 2021 Initial ECG Impression Time: 22:00 Initial ECG Rate: 70 Comment Ventricular paced rhythm. Similar to previous of 11/03/2020. No evidence of ST elevation CO. Interpreted by me. Diagnostic Imaging Diagonstic Imaging: Xray Plain Films/CT/US/NM/MRI: chest Comments [facility], [place] NAME: ISAC BIRD [facility] REC#: [id number] PT STATUS: REG ER : 1950 PHYSICIAN: KWAME QUEEN MD ADMIT DATE: 07/08/21/ER Draft Date of Exam:07/08/21 CHEST 1 VIEW, AP/PA ONLY CLINICAL INDICATION: Patient with chest pain. EXAM: Portable chest x-ray upright view. COMPARISON: Chest x-ray dated 06/10/2021. FINDINGS: Lungs/pleura: There are increased lung markings in both lungs which may be related to atelectasis and/or chronic lung changes. There is no definite interval lung infiltrate. Suspected mild bibasilar atelectasis. There is no pneumothorax. There is no pleural effusion. Mediastinum: Unremarkable. Pulmonary vasculature: Unremarkable. Heart: Heart size is within normal limits for portable projection. Again seen cardiac pacemaker/AICD overlying left chest. Bones/extrathoracic soft tissue: Unremarkable. IMPRESSION: Stable chest x-ray exam with no interval radiographic evidence of acute cardiopulmonary process. Dictated on workstation # [id number] Dict: 07/08/212234 Trans: 07/08/212241 [facility] [id number] Interpreted by: HÉCTOR SHELTON MD Electronically signed by: Departure Communication (Admissions) Time/Spoke to Admitting Phy: 23:08 Time/Spoke to Consulting Phy: 23:06 Impression Primary Impression: Acute on chronic systolic (congestive) heart failure Disposition: ADMITTED INPATIENT Condition: Stable Admissions Decision to Admit Reason: Admit from ER (General) Decision to Admit/Date: Jul 08, 2021 Time/Decision to Admit Time: 23:06 Departure-Patient Inst. Referrals: FARHAT DAILY DO (PCP/Family) Primary Care Physician KWAME QUEEN MD Jul 08, 2021 22:26
[2021-07-08 22:30] LABS: ALBUMIN 4.4 GM/DL (3.2-4.5)
[2021-07-08 22:31] LABS: POTASSIUM 3.7 MMOL/L (3.6-5.0)
[2021-07-08 22:32] LABS: CALCIUM 9.3 MG/DL (8.5-10.1); INR 2.3 (0.8-1.4)
[2021-07-08 22:33] LABS: TOTAL PROTEIN 7.8 GM/DL (6.4-8.2)
[2021-07-08 22:35] LABS: BILIRUBIN,TOTAL 0.7 MG/DL (0.1-1.0)
[2021-07-08 22:37] LABS: CREATININE SERUM 1.29 MG/DL (0.60-1.30)
--- NOTE | 2021-07-08 22:43 | Diagnostic Imaging Report ---
CLINICAL INDICATION: Patient with chest pain. EXAM: Portable chest x-ray upright view. COMPARISON: Chest x-ray dated 06/10/2021. FINDINGS: Lungs/pleura: There are increased lung markings in both lungs which may be related to atelectasis and/or chronic lung changes. There is no definite interval lung infiltrate. Suspected mild bibasilar atelectasis. There is no pneumothorax. There is no pleural effusion. Mediastinum: Unremarkable. Pulmonary vasculature: Unremarkable. Heart: Heart size is within normal limits for portable projection. Again seen cardiac pacemaker/AICD overlying left chest. Bones/extrathoracic soft tissue: Unremarkable. IMPRESSION: Stable chest x-ray exam with no interval radiographic evidence of acute cardiopulmonary process. Dictated by: Dictated on workstation # [id number]
[2021-07-08 23:58] VITALS: BP 138/71
[2021-07-09] MEDS ORDERED: LOSA25TA41 PO (00:46)
[2021-07-09] MEDS ORDERED: PANT40SU PO (00:46)
[2021-07-09] MEDS ORDERED: POTA-179 PO (00:50)
[2021-07-09] MEDS ORDERED: MGX400T PO (00:51)
[2021-07-09 03:19] VITALS: BP 131/71
[2021-07-09] MEDS: CATHETER FLUSH 10 ML SYR IV SCH ×3 (05:50→21:21)
[2021-07-09 05:57] LABS: BASOPHILS # (AUTO) 0.1 10^3/uL (0.0-0.1); BASOPHILS % (AUTO) 1 % (0-10); EOSINOPHILS # (AUTO) 0.1 10^3/uL (0.0-0.3); EOSINOPHILS % (AUTO) 2 % (0-10); HEMATOCRIT 41 % (35-52); HEMOGLOBIN 12.7 g/dL (11.5-16.0); LYMPHOCYTES # (AUTO) 2.3 10^3/uL (1.0-4.0); LYMPHOCYTES % (AUTO) 28 % (12-44); MEAN CORPUSCULAR HEMOGLOBIN 28 pg (25-34); MEAN CORPUSCULAR HGB CONC 31 g/dL (32-36); MEAN CORPUSCULAR VOLUME 91 fL (80-99); MEAN PLATELET VOLUME 10.1 fL (9.0-12.2); MONOCYTES # (AUTO) 0.6 10^3/uL (0.0-1.0); MONOCYTES % (AUTO) 7 % (0-12); NEUTROPHILS # (AUTO) 5.1 10^3/uL (1.8-7.8); NEUTROPHILS % (AUTO) 62 % (42-75); PLATELET COUNT 249 10^3/uL (130-400); WHITE BLOOD COUNT 8.2 10^3/uL (4.3-11.0)
[2021-07-09 06:19] LABS: POTASSIUM 3.2 MMOL/L (3.6-5.0)
[2021-07-09 06:20] LABS: CALCIUM 8.8 MG/DL (8.5-10.1)
[2021-07-09 06:22] LABS: TRIGLYCERIDES 117 MG/DL (<150); VLDL CHOLESTEROL 23 MG/DL (5-40)
[2021-07-09 06:25] LABS: CREATININE SERUM 1.08 MG/DL (0.60-1.30)
[2021-07-09 06:27] LABS: CHOLESTEROL 152 MG/DL (< 200)
[2021-07-09 06:28] LABS: HDL CHOLESTEROL 29 MG/DL (40-60)
[2021-07-09 07:50] VITALS: BP 134/65
--- NOTE | 2021-07-09 08:58 | History & Physical ---
History of Present Illness History of Present Illness Reason for visit/HPI PT IS A 70 Y/O FEMALE WHO IS A CLINIC PATIENT OF DR. 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 THE PATIENT CALLED THIS PROVIDER COMPLAINING OF SEVERE SHORTNESS OF BREATH 07/08/2021 @2210, SHE INFORMED THIS PROVIDER THAT SHE TOOK EXTRA SPIRONOLACTONE DUE TO HER SHORTNESS OF BREATH, BUT NOTHING WAS WORKING TO IMPROVE HER SWELLING OR SHORTNESS OF BREATH. THIS PROVIDER INFORMED MS. BIRD THAT DUE TO THE SYMPTOMS AND LATE HOUR, THE RECOMMENDATION WAS FOR HER TO SEEK HELP AT THE EMERGENCY DEPARTMENT TO DETERMINE IF A DOSE OF MEDICATION WOULD HELP HER SYMPTOMS OR IF SHE WERE ILL ENOUGH TO WARRANT ADMISSION TO THE HOSPITAL. UPON EVALUATION IN THE ER, SHE WAS FOUND TO BE IN ACUTE HEART FAILURE WITH AN ELEVATED BNP, DYSPNEA, ABDOMINAL AND LOWER EXTREMITY SWELLING WELL HAVING A SLIGHT ELEVATION IN HER TROPONIN. CARDIOLOGY WAS CONSULTED AND THE PATIENT WAS ADMITTED TO THE 4TH FLOOR ON TELEMETRY. Date of Admission Jul 08, 2021 at 23:11 Date Seen by a Provider: Jul 09, 2021 Time Seen by a Provider: 08:50 Attending Physician Jalyn Daily DO Admitting Physician CATE LEIVA MD Consult CARDIOLOGY Allergies and Home Medications Allergies Coded Allergies: rosuvastatin (Unverified Allergy, Mild, 03/06/18) sacubitril (Verified Allergy, Mild, RASH, 07/01/18) PATIENT HAS ITCHING FROM MEDICATION valsartan (Verified Allergy, Mild, RASH, 07/01/18) PATIENT HAS ITCHING FROM MEDICATION Sulfa (Sulfonamide Antibiotics) (Verified Allergy, Unknown, 03/06/18) fentanyl (Verified Adverse Reaction, Unknown, Vomiting, 04/14/19) Patient Home Medication List Home Medication List Reviewed: Yes Allopurinol (Allopurinol) 100 Mg Tablet, 100 MG PO HS, (Reported) Entered as Reported by: THOMPSON JENKINS on 08/20/20 0237 Last Action: Continued Amiodarone HCl (Amiodarone HCl) 200 Mg Tablet, 200 MG PO BID, (Reported) Entered as Reported by: MARNIE GONZALEZ on 04/15/19 1027 Last Action: Continued Bumetanide (Bumetanide) 1 Mg Tablet, 1 MG PO BID, (Reported) Entered as Reported by: MARNIE GONZALEZ on 04/15/19 1027 Last Action: Held Carvedilol (Carvedilol) 6.25 Mg Tablet, 6.25 MG PO DAILY, (Reported) Entered as Reported by: MARNIE GONZALEZ on 04/15/19 1027 Last Action: Continued Losartan Potassium (Losartan Potassium) 25 Mg Tablet, 25 MG PO DAILY Prescribed by: MARILOU PEDERSEN on 07/09/2145 Last Action: Continued Magnesium Oxide (Magnesium Oxide) 400 Mg Tablet, 400 MG PO DAILY Prescribed by: MARILOU PEDERSEN on 07/09/2150 Last Action: Continued Methenamine/Sodium Salicylate (Azo Urinary Tract Defense Tab) 1 Each Tablet, 1-2 TAB PO DAILY, (Reported) Entered as Reported by: THOMPSON JENKINS on 11/03/201548 Last Action: Held Pantoprazole Sodium (Protonix) 40 Mg Granpkt.dr, 40 MG PO BID Prescribed by: MARILOU PEDERSEN on 07/09/2145 Last Action: Converted Potassium Chloride (Potassium Chloride) 20 Meq Tab.er.prt, 20 MEQ PO DAILY Prescribed by: MARILOU PEDERSEN on 07/09/2149 Last Action: Reviewed Spironolactone (Spironolactone) 25 Mg Tablet, 25 MG PO BID, (Reported) Entered as Reported by: THOMPSON JENKINS on 11/03/20 1553 Last Action: Continued Warfarin Sodium (Warfarin Sodium) 2.5 Mg Tablet, 2.5 MG PO DAILY, (Reported) Entered as Reported by: THOMPSON JENKINS on 08/20/20 1537 Last Action: Continued Discontinued Medications Colestipol HCl (Colestipol HCl) 1 Gm Tablet, 1 GM PO TID PRN for DIARRHEA, (Reported) Discontinued Reason: No Longer Taking Entered as Reported by: THOMPSON JENKINS on 02/11/20 1111 Last Action: Discontinued Doxepin HCl (Doxepin HCl) 10 Mg Capsule, 20 MG PO HS, (Reported) Discontinued Reason: No Longer Taking Entered as Reported by: THOMPSON JENKINS on 11/03/20 285 Last Action: Discontinued Levothyroxine Sodium (Levothyroxine Sodium) 25 Mcg Tablet, 25 MCG PO MO,TU,WE,DENG, (Reported) Discontinued Reason: No Longer Taking Entered as Reported by: THOMPSON JENKINS on 11/03/20 1549 Last Action: Discontinued Melatonin (Melatonin) 10 Mg Tablet, 10 MG PO HS, (Reported) Discontinued Reason: No Longer Taking Entered as Reported by: THOMPSON JENKINS on 08/20/20 1545 Last Action: Discontinued Metronidazole (Metronidazole) 500 Mg Tablet, 500 MG PO BID, (Reported) Discontinued Reason: No Longer Taking Entered as Reported by: THOMPSON JENKINS on 11/03/20 1549 Last Action: Discontinued Ondansetron HCl (Ondansetron HCl) 4 Mg Tablet, 4 MG PO Q6H PRN for NAUSEA/VOMITING-1ST LINE, (Reported) Discontinued Reason: No Longer Taking Entered as Reported by: THOMPSON JENKINS on 11/03/20 154 Last Action: Discontinued Oxycodone HCl (Oxycodone HCl) 5 Mg Capsule, 5 MG PO Q6H PRN for PAIN-MODERATE (5-7) Discontinued Reason: No Longer Taking Prescribed by: IZYAD BUNN on 06/10/21 1401 Last Action: Discontinued Spironolactone (Spironolactone) 25 Mg Tablet, 25 MG PO 1200 PRN for SWELLING, (Reported) Discontinued Reason: No Longer Taking Entered as Reported by: THOMPSON JENKINS on 11/03/20 1553 Last Action: Discontinued Sucralfate (Carafate) 1 Gm Tablet, 1 GM PO QID Discontinued Reason: No Longer Taking Prescribed by: ZURI OCHOA on 11/21/20 1139 Last Action: Discontinued Warfarin Sodium (Warfarin Sodium) 2.5 Mg Tablet, 5 MG PO SUN,SUN, (Reported) Discontinued Reason: No Longer Taking Entered as Reported by: THOMPSON JENKINS on 11/03/20 154 Last Action: Discontinued Past Sopdwws-Znouqg-Sseokx Hx Patient Social History Marrital Status: Number of Children: 1 (1 BIOLOGICAL SON, 2 STEPDTRS) Number of living children: 1 (1 BIOLOGICAL SON, 2 STEPDTRS) Living Status: LIVES WITH SPOUSE IN THEIR SINGLE FAM HOME 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) Tobacco Use?: No Smoking Status: Never a Smoker Substance use?: No Alcohol Use?: No Pt feels they are or have been: No Immunizations Up To Date Date of Influenza Vaccine: Apr 08, 2021 First/Initial COVID19 Vaccinat: JULY 2020 Second COVID19 Vaccination Gurpreet: AUGUST 2020 Tetanus Booster (TDap): Unknown Hepatitis A: Yes Hepatitis B: Yes PED Vaccines UTD: No Date of Pneumonia Vaccine: Aug 12, 2017 Seasonal Allergies Seasonal Allergies: No Current Status status: No status: No Advance Directives: No Communicates: Verbally Primary Language: Latvian Preferred Spoken Language: Latvian Is interpretation needed?: No Sensory deficits: Vision impairment Implanted or Applied Medical D: Pacemaker (X 2 (UPGRADE IN 04/2018)) Past Medical History Surgeries: Bladder Surgery, Breast, Cardiac, Defibrillator, Gallbladder (COMPLICATION OF CHOLESYTECTOMY WITH HEPATIC INJURY AND GRAVE ILLNESS), Hysterectomy, Oophorectomy, Pacemaker Sleep Apnea Currently Using CPAP: Yes (at night) Currently Using BIPAP: No Atrial Fibrillation, Cardiomyopathy, Coronary Artery Disease, Hypertension, Irregular Heartbeat, Valvular Heart Disease 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: Hysterectomy, Menopausal Sexually Transmitted Disease: No HIV/AIDS: No UTI-Chronic Gastroesophageal Reflux, Liver Disease/Jaundice, Diverticulosis, Polyps, C-Diff Chronic Back Pain Loss of Vision: Bilateral Hearing Impairment: Denies Anxiety, Depression Blood Disorders: No Adverse Reaction/Blood Tranf: No (HAS HAD BLOOD WITH NO REACTIION) Family Medical History Reviewed and Corrections made Heart Disease, CAD Under 55 Years Old Review of Systems Constitutional: No chills, No diaphoresis, No dizziness, No fever; malaise, weakness, weight gain (10#) EENTM: No hearing loss, No hoarseness, No throat pain, No throat swelling Respiratory: No cough; dyspnea on exertion, orthopnea, short of breath, other (SLEEP APNEA) Cardiovascular: No chest pain; edema (WORSENING); No palpitations Gastrointestinal: abdominal pain; No constipation, No diarrhea, No dysphagia, No hematemesis; heartburn; No jaundice; loss of appetite (IN AFTERNOON, EVENING); No melena, No nausea, No vomiting Genitourinary: no symptoms reported Musculoskeletal: No back pain; gout; No joint pain; muscle weakness Skin: No change in color, No dryness; other (PROMINENT VEIN BELOW RIGHT EYE NEW ONSET) Psychiatric/Neurological: Denies Anxiety; Depressed (OVER HEALTH), Weakness All Other Systems Reviewed Negative Unless Noted: Yes Physical Exam Vital Signs Vital Signs - First Documented 07/08/21 22:03 Temp 36.3 Pulse 73 Resp 18 B/P (MAP) 138/91 (107) Pulse Ox 96 O2 Delivery Room Air Capillary Refill : NONE Height, Weight, BMI Height: 4'11.00" Weight: 130lbs. 14.4oz. 58.457748li; 27.28 BMI Method:Stated General Appearance: WD/WN, Mild Distress (WITH TALKING SLIGHTLY SHORT OF BREATH) Eyes: Bilateral Eye Normal Inspection, Bilateral Eye PERRL, Bilateral Eye EOMI HEENT: PERRL/EOMI, Pharynx Normal Neck: Full Range of Motion, Non Tender, Supple Respiratory: Chest Non Tender, Lungs Clear, Normal Breath Sounds, No Accessory Muscle Use, No Respiratory Distress Cardiovascular: Regular Rate, Rhythm, Normal Peripheral Pulses, Systolic Murmur Gastrointestinal: Hepatomegaly (SLIGHTLY TTP OVER EDGE OF LIVER), Other (NO EVIDENCE OF FLUID WAVE) Rectal: Deferred Extremity: Normal Capillary Refill, Normal Range of Motion, Non Tender, Pedal Edema (1+ RIGHT ANKLE, 2+ LEFT ANKLE, 1 + BILATERAL LOWER LEGS TO KNEES) Skin: Normal Color, Warm/Dry Lymphatic: No Adenopathy Assessment/Plan Assessment and Plan ACUTE ON CHRONIC SYSTOLIC HEART FAILURE DILATED CARDIOMYOPATHY PULMONARY HYPERTENSION EDEMA BILATERAL LOWER EXTREMITIES ELEVATED TROPONIN CIRRHOSIS WITH ABDOMINAL FULLNESS - SUSPECT ANASARCA CHRONIC ATRIAL FIBRILLATION CHRONIC ANTICOAGULATION WITH COUMADIN THERAPY HISTORY OF SICK SINUS SYNDROME WITH PACEMAKER (BI-V 04/2018) HTN COPD SLEEP APNEA HX OF GOUT ON ALLOPURINOL THERAPY ACUTE ON CHRONIC SYSTOLIC HEART FAILURE WITH HX OF DILATED CARDIOMYOPATHY AND PULMONARY HYPERTENSION - PT RECENTLY HAD ECHO DONE WITH HER USUAL 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 BOLTON IN [place] - WILL SEE IF WE CAN GET THE RECORDS FROM HIS OFFICE ON HER ECHO REPORT - LAST REPORT SHOWED EF OF 30 - 40%. - PT REPORTS A TRICUSPID REGURGITATION WHICH SHE DOES NOT REMEMBER IN THE PAST - WILL CONTINUE WITH IV LASIX, MONITOR RENAL FUNCTION, URINE OUTPUT AND COMFORT OF PATIENT - CONTINUE WITH SPIRONOLACTONE AT THIS TIME WELL. EDEMA BILATERAL LOWER EXTREMITIES - PLACE SCD'S TODAY ELEVATED TROPONIN - MONITOR LABS - DEFER TO CARDIOLOGY - SUSPECT ELEVATION SECONDARY TO HEART FAILURE CIRRHOSIS WITH ABDOMINAL FULLNESS - SUSPECT ANASARCA - DISCUSSED WITH PT - WILL ORDER CT OF ABD/PELVIS WITH ORAL CONTRAST CHRONIC ATRIAL FIBRILLATION, CHRONIC ANTICOAGULATION WITH COUMADIN THERAPY - RATE CONTROLLED - COUMADIN THERAPEUTIC HISTORY OF SICK SINUS SYNDROME WITH PACEMAKER (BI-V 04/2018) HTN - RESUME [place] - RESUME COREG TOMORROW COPD WITH HX OF SLEEP APNEA - WILL PLACE ON HOME CPAP IF MACHINE CAN BE BROUGHT TO THE HOSPITAL, IF NOT, WILL UTILIZE HOSPITAL SET-UP. HX OF GOUT ON ALLOPURINOL THERAPY - SUPPORTIVE CARE, RESTART ALLOPURINOL. DVT PROPHYLAXIS WITH COUMADIN AND SCD'S GI PROHYLAXIS WITH PPI DR. DAILY TO RESUME PATIENT CARE STARTING ON 07/10/2021 Admission Diagnosis ACUTE ON CHRONIC SYSTOLIC HEART FAILURE DILATED CARDIOMYOPATHY PULMONARY HYPERTENSION EDEMA BILATERAL LOWER EXTREMITIES ELEVATED TROPONIN CIRRHOSIS WITH ABDOMINAL FULLNESS - SUSPECT ANASARCA CHRONIC ATRIAL FIBRILLATION CHRONIC ANTICOAGULATION WITH COUMADIN THERAPY HISTORY OF SICK SINUS SYNDROME WITH PACEMAKER (BI-V 04/2018) HTN COPD SLEEP APNEA HX OF GOUT ON ALLOPURINOL THERAPY Admission Status: Inpatient Order (span 2 midnights) Reason for Inpatient Admission: INPT ADMISSION FOR CHF, WILL REQUIRE AT LEAST 2-3 MIDNIGHTS OF MEDICATION ADJUSTMENTS AND STABILIZATION Clinical Quality Measures AMI/AHF: ASA po Prior to arrival: No (On warfarin) CATE LEIVA MD Jul 09, 2021 08:58
[2021-07-09] MEDS ORDERED: KCL 20 MEQ TAB (K-DUR) PO ONE (09:00)
[2021-07-09] MEDS: FUROSEMIDE 40 MG/4 ML INJ (LASIX) IV SCH ×2 (09:05→21:22)
[2021-07-09] MEDS: LOSARTAN 25 MG (COZAAR) TAB PO SCH (10:12)
[2021-07-09] MEDS ORDERED: IOHEXOL 350 MG/ML 100 ML (OMNIPAQUE 350) VIAL IV ONE (10:45)
[2021-07-09] MEDS ORDERED: NS 100 ML (IVPB) BAG IV ONE (10:45)
[2021-07-09] MEDS ORDERED: HOLD METFORMIN - RECEIVED CONTRAST 20 ML VIAL IV SCH (10:45)
--- NOTE | 2021-07-09 10:55 | Physical Therapy Progress Note ---
Therapy Progress Note Order for PT evaluation received. Evaluation attempted but nurse informs PT that patient just went down for a CT scan. Nurse also states that patient is up independently in her room and took a shower by herself. It seems patient is independent with mobility at this time. Will DC patient from PT services at this time. Resend PT evaluation orders if patient has a decline or difficulty with mobility or strength. ZOIE CAMARGO PT Jul 09, 2021 10:55
[2021-07-09 11:35] VITALS: BP 135/69
--- NOTE | 2021-07-09 11:52 | Diagnostic Imaging Report ---
PROCEDURE: CT abdomen and pelvis with and without contrast. TECHNIQUE: Precontrast acquisitions were acquired through the abdomen and pelvis. Multiple contiguous axial images were obtained through the abdomen and pelvis after the administration of intravenous contrast. Auto Exposure Controls were utilized during the CT exam to meet ALARA standards for radiation dose reduction. INDICATION: Abdominal fullness, cirrhosis. The CT abdomen/pelvis exam performed on 06/10/2021 failed to show any sign of an acute abnormality. There was a small amount of ascites however. On this exam the ascites is again evident and is perhaps slightly greater. The ascites about the right lobe of the liver measures approximately 2 cm in maximum depth as opposed to 0.6 cm on the prior study. The appearance of the liver itself is unchanged. The spleen, pancreas, adrenals, kidneys, aorta and inferior vena cava show no sign of an acute abnormality. As noted on the prior exam, the gallbladder is surgically absent. The stomach is filled with particulate matter and difficult to assess. There is diverticulosis of the sigmoid colon but there is no sign of acute diverticulitis. The appendix may be surgically absent. The urinary bladder is grossly unremarkable. The uterus is either surgically absent or small. The bone windows are unremarkable for a fracture or for a destructive lesion. The lung bases are clear. IMPRESSION: 1. The small amount of ascites seen previously has increased slightly. 2. The overall appearance of the abdomen and pelvis has not changed significantly otherwise. There is no acute abnormality identified. Dictated by: Dictated on workstation # [id number]
--- NOTE | 2021-07-09 12:18 | Consultation-Cardiology ---
HPI-Cardiology Cardiology Consultation: Date of Consultation 07/09/2021 Date of Admission 07/08/2021 Attending Physician Jalyn Daily DO Admitting Physician Jalyn Daily DO Consulting Physician CHUYITA MERCHANT JR, MD HPI: Time Seen by a Provider: 12:13 Chief Complaint: Reason for consultation: Heart failure I had the pleasure of seeing Marcelina on the medical/surgical unit at [facility] in [place], [place] this morning. 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 Since about February, her defibrillator has been showing fluid retention on her remote interrogations. Her dose of spironolactone and loop diuretic were increased. However, she states that over the past few weeks, she has had increasing dyspnea on exertion, abdominal bloating, bilateral peripheral edema as well as perhaps some orthopnea. Due to worsening symptoms, she presented to the emergency room for further evaluation. She was found to be in decompensated heart failure and was it added to the hospital for further treatment. When I saw her, she was up walking around in her room but still complaining of lower extremity edema and abdominal bloating. At one point last evening, she felt as though the pressure pushing up from her abdomen caused some slight chest discomfort. This has now resolved. Her breathing seems to be slowly improving. She denies palpitations, lightheadedness, or syncope. About 2 weeks ago she had a cardioversion. She has been taking warfarin for stroke prophylaxis. She states that her regular customer training specialist has referred her to [facility] in [place], [place] for what sounds like a be a percutaneous valve procedure. The patient believes this is due to tricuspid regurgitation. Because of the heart failure, a cardiology consultation was requested. Certain portions of this document may have been dictated utilizing voice rec ognition technology. Inherent to this technology, typographical and grammatical errors may exist. As much as I am diligent to identify and correct these mistakes, some errors may remain in the document. Review of Systems-Cardiology Review of Systems Other comments Review of 10 organ systems is as per the history of present illness, otherwise negative. 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 Family Medical History Family Medical History: Reports father at age 47 from an [place]. Allergies and Home Medications Allergies Coded Allergies: rosuvastatin (Unverified Allergy, Mild, 03/06/18) sacubitril (Verified Allergy, Mild, RASH, 07/01/18) PATIENT HAS ITCHING FROM MEDICATION valsartan (Verified Allergy, Mild, RASH, 07/01/18) PATIENT HAS ITCHING FROM MEDICATION Sulfa (Sulfonamide Antibiotics) (Verified Allergy, Unknown, 03/06/18) fentanyl (Verified Adverse Reaction, Unknown, Vomiting, 04/14/19) Patient Home Medication List Home Medication List Reviewed: Yes Allopurinol (Allopurinol) 100 Mg Tablet, 100 MG PO HS, (Reported) Entered as Reported by: THOMPSON JENKINS on 08/20/20 153 Last Action: Continued Amiodarone HCl (Amiodarone HCl) 200 Mg Tablet, 200 MG PO BID, (Reported) Entered as Reported by: MARNIE GONZALEZ on 04/15/19 102 Last Action: Continued Bumetanide (Bumetanide) 1 Mg Tablet, 1 MG PO BID, (Reported) Entered as Reported by: MARNIE GONZALEZ on 04/15/19 102 Last Action: Held Carvedilol (Carvedilol) 6.25 Mg Tablet, 6.25 MG PO DAILY, (Reported) Entered as Reported by: MARNIE GONZALEZ on 04/15/19 102 Last Action: Continued Losartan Potassium (Losartan Potassium) 25 Mg Tablet, 25 MG PO DAILY Prescribed by: MARILOU PEDERSEN on 07/09/21 0046 Last Action: Continued Magnesium Oxide (Magnesium Oxide) 400 Mg Tablet, 400 MG PO DAILY Prescribed by: MARILOU PEDERSEN on 07/09/21 005 Last Action: Continued Methenamine/Sodium Salicylate (Azo Urinary Tract Defense Tab) 1 Each Tablet, 1-2 TAB PO DAILY, (Reported) Entered as Reported by: THOMPSON JENKINS on 11/03/201548 Last Action: Held Pantoprazole Sodium (Protonix) 40 Mg Granpkt.dr, 40 MG PO BID Prescribed by: MARILOU PEDERSEN on 07/09/21 0046 Last Action: Converted Potassium Chloride (Potassium Chloride) 20 Meq Tab.er.prt, 20 MEQ PO DAILY Prescribed by: MARILOU PEDERSEN on 07/09/2149 Last Action: Reviewed Spironolactone (Spironolactone) 25 Mg Tablet, 25 MG PO BID, (Reported) Entered as Reported by: THOMPSON JENKINS on 11/03/20 155 Last Action: Continued Warfarin Sodium (Warfarin Sodium) 2.5 Mg Tablet, 2.5 MG PO DAILY, (Reported) Entered as Reported by: THOMPSON JENKINS on 08/20/201536 Last Action: Continued Discontinued Medications Colestipol HCl (Colestipol HCl) 1 Gm Tablet, 1 GM PO TID PRN for DIARRHEA, (Reported) Discontinued Reason: No Longer Taking Entered as Reported by: THOMPSON JENKINS on 02/11/20 1111 Last Action: Discontinued Doxepin HCl (Doxepin HCl) 10 Mg Capsule, 20 MG PO HS, (Reported) Discontinued Reason: No Longer Taking Entered as Reported by: THOMPSON JENKINS on 11/03/201548 Last Action: Discontinued Levothyroxine Sodium (Levothyroxine Sodium) 25 Mcg Tablet, 25 MCG PO MO,TU,WE,DENG, (Reported) Discontinued Reason: No Longer Taking Entered as Reported by: THOMPSON JENKINS on 11/03/201548 Last Action: Discontinued Melatonin (Melatonin) 10 Mg Tablet, 10 MG PO HS, (Reported) Discontinued Reason: No Longer Taking Entered as Reported by: THOMPSON JENKINS on 08/20/201544 Last Action: Discontinued Metronidazole (Metronidazole) 500 Mg Tablet, 500 MG PO BID, (Reported) Discontinued Reason: No Longer Taking Entered as Reported by: THOMPSON JENKINS on 11/03/201548 Last Action: Discontinued Ondansetron HCl (Ondansetron HCl) 4 Mg Tablet, 4 MG PO Q6H PRN for NAUSEA/VOMITING-1ST LINE, (Reported) Discontinued Reason: No Longer Taking Entered as Reported by: THOMPSON JENKINS on 11/03/20 1549 Last Action: Discontinued Oxycodone HCl (Oxycodone HCl) 5 Mg Capsule, 5 MG PO Q6H PRN for PAIN-MODERATE (5-7) Discontinued Reason: No Longer Taking Prescribed by: ZIYAD BUNN on 06/10/21 1401 Last Action: Discontinued Spironolactone (Spironolactone) 25 Mg Tablet, 25 MG PO 1200 PRN for SWELLING, (Reported) Discontinued Reason: No Longer Taking Entered as Reported by: THOMPSON JENKINS on 11/03/20 1553 Last Action: Discontinued Sucralfate (Carafate) 1 Gm Tablet, 1 GM PO QID Discontinued Reason: No Longer Taking Prescribed by: ZURI OCHOA on 11/21/20 1139 Last Action: Discontinued Warfarin Sodium (Warfarin Sodium) 2.5 Mg Tablet, 5 MG PO , (Reported) Discontinued Reason: No Longer Taking Entered as Reported by: THOMPSON JENKINS on 11/03/20 1549 Last Action: Discontinued Exam Vital Signs Vital Signs Date Time Temp Pulse Resp B/P (MAP) Pulse Ox O2 Delivery O2 Flow Rate FiO2 07/09/21 11:35 36.8 75 18 135/69 (91) 98 Room Air Physical Exam General: Alert. No acute distress. Well nourished and appears stated age. She i s overweight but also appears bloated. Eye: Extraocular movements are intact. Conjunctivae are clear. There are no xanthelasma. HENT: Normocephalic. Atraumatic. Carotid pulsations 2/2 without bruits. Neck: Jugular venous pressure does not appear elevated. No thyromegaly appreciated. Respiratory: Lungs are clear to auscultation. Respirations are non-labored. Breath sounds are equal. Symmetrical chest wall expansion. Cardiovascular: Normal rate. Regular rhythm. 2/6 holosystolic murmur. No gallop. Point of maximal impulse is not appear displaced. Good pulses equal in all extremities. 2+ bilateral pretibial edema. Gastrointestinal: Soft. Normal bowel sounds. Skin: Skin turgor is normal. There is no pallor. Musculoskeletal: No kyphosis or scoliosis appreciated. Neurologic: Alert and oriented to person, place, time. Cranial nerves 3-12 appear grossly intact. The patient has good motor tone strength in the upper and lower extremities bilaterally. Psychiatric: Cooperative. Appropriate mood & affect. Labs Laboratory Tests Test 07/08/21 22:05 07/09/21 05:13 Range/Units White Blood Count 9.0 8.2 4.3-11.0 10^3/uL Red Blood Count 4.92 4.51 3.80-5.11 10^6/uL Hemoglobin 14.1 12.7 11.5-16.0 g/dL Hematocrit 45 41 35-52 % Mean Corpuscular Volume 91 91 80-99 fL Mean Corpuscular Hemoglobin 29 28 25-34 pg Mean Corpuscular Hemoglobin Concent 31 L 31 L 32-36 g/dL Red Cell Distribution Width 15.3 H 15.3 H 10.0-14.5 % Platelet Count 276 249 130-400 10^3/uL Mean Platelet Volume 9.6 10.1 9.0-12.2 fL Immature Granulocyte % (Auto) 0 0 % Neutrophils (%) (Auto) 64 62 42-75 % Lymphocytes (%) (Auto) 28 28 12-44 % Monocytes (%) (Auto) 6 7 0-12 % Eosinophils (%) (Auto) 1 2 0-10 % Basophils (%) (Auto) 1 1 0-10 % Neutrophils # (Auto) 5.8 5.1 1.8-7.8 10^3/uL Lymphocytes # (Auto) 2.5 2.3 1.0-4.0 10^3/uL Monocytes # (Auto) 0.6 0.6 0.0-1.0 10^3/uL Eosinophils # (Auto) 0.1 0.1 0.0-0.3 10^3/uL Basophils # (Auto) 0.1 0.1 0.0-0.1 10^3/uL Immature Granulocyte # (Auto) 0.0 0.0 0.0-0.1 10^3/uL Prothrombin Time 26.0 H 12.2-14.7 SEC INR Comment 2.3 H 0.8-1.4 Activated Partial Thromboplast Time 43 H 24-35 SEC Sodium Level 142 139 135-145 MMOL/L Potassium Level 3.7 3.2 L 3.6-5.0 MMOL/L Chloride Level 102 100 98-107 MMOL/L Carbon Dioxide Level 23 23 21-32 MMOL/L Anion Gap 17 H 16 H 5-14 MMOL/L Blood Urea Nitrogen 26 H 22 H 7-18 MG/DL Creatinine 1.29 1.08 0.60-1.30 MG/DL Estimat Glomerular Filtration Rate 41 50 BUN/Creatinine Ratio 20 20 Glucose Level 112 H 81 70-105 MG/DL Calcium Level 9.3 8.8 8.5-10.1 MG/DL Corrected Calcium 9.0 8.5-10.1 MG/DL Magnesium Level 2.0 1.6-2.4 MG/DL Total Bilirubin 0.7 0.1-1.0 MG/DL Aspartate Amino Transf (AST/SGOT) 24 5-34 U/L Alanine Aminotransferase (ALT/SGPT) 14 0-55 U/L Alkaline Phosphatase 143 H 40-136 U/L Myoglobin 46.9 10.0-92.0 NG/ML Troponin I 0.063 H <0.028 NG/ML B-Type Natriuretic Peptide 696.4 H <100.0 PG/ML Total Protein 7.8 6.4-8.2 GM/DL Albumin 4.4 3.2-4.5 GM/DL Triglycerides Level 117 <150 MG/DL Cholesterol Level 152 < 200 MG/DL LDL Cholesterol Direct 117 1-129 MG/DL VLDL Cholesterol 23 5-40 MG/DL HDL Cholesterol 29 L 40-60 MG/DL ECG Impression ECG Comment Dual-chamber pacing. Diagnosis/Problems Diagnosis/Problems (1) Acute on chronic HFrEF (heart failure with reduced ejection fraction) Assessment & Plan: She tells me that her ejection fraction has declined over the past 6-12 months. She also had a cardiac catheterization earlier this year and reports there was no signs of obstructive pulmonary disease. This raises a concern of progressive cardiomyopathy. She does have a prophylactic defibrillator in place. This is a biventricular device. She is on the appropriate guideline directed medical therapy but has a worsening ejection fraction and now class IV heart failure. We will treated with intravenous diuretics. She may need to be evaluated for amyloidosis. This can be coordinated with her regular customer training specialist. I do not see any indication to transfer her to a heart failure center for advanced therapy at this time. (2) Cardiomyopathy Assessment & Plan: As above, her ejection fraction has declined over the past year. She states her most recent ejection fraction was around 25% just a few weeks ago. This appears to be nonischemic cardiomyopathy. Amyloidosis is in the differential diagnosis. If she has not already been screened for amyloidosis, this should probably be considered. (3) Elevated troponin Status: Acute Assessment & Plan: This is most likely a type II non-ST elevation myocardial infarction due to her decompensated heart failure. As above, she had a recent cardiac catheterization that did not show any coronary artery disease. She has been on warfarin due to atrial fibrillation and this should be continued. (4) Paroxysmal atrial fibrillation Assessment & Plan: Her electrocardiogram on admission shows dual-chamber pacing. Her INR level is therapeutic. She should continue on warfarin. She was apparently on apixaban about 5 years ago and it sounds as though she may have had a left atrial thrombus at that time. I suggested she speak to her regular customer training specialist about changing back over to a today DOAC. These have a much better safety profile and at least equal efficacy as warfarin. (5) Sick sinus syndrome Assessment & Plan: She has a biventricular defibrillator in place that appears to be functioning normally surface electrocardiogram. (6) Cardiac pacemaker in situ Assessment & Plan: This is followed by her regular customer training specialist at the outside facility. She did not report any recent defibrillator discharges. (7) Primary hypertension Assessment & Plan: Resume outpatient antihypertensive medication. CHUYITA MERCHANT JR, MD Jul 09, 2021 12:18
[2021-07-09 16:00] VITALS: BP 143/63
[2021-07-09] MEDS: warFARin 2.5 MG (COUMADIN) TAB PO SCH (17:40)
[2021-07-09 20:05] VITALS: BP 120/87
[2021-07-09] MEDS ORDERED: warFARin 2.5 MG (COUMADIN) TAB PO SCH (21:00)
[2021-07-09] MEDS: SPIRONOLACTONE 25 MG (ALDACTONE) TAB PO SCH (21:20)
[2021-07-09] MEDS: ALLOPURINOL 100 MG (ZYLOPRIM) TAB PO SCH (21:20)
[2021-07-09] MEDS: AMIODARONE 200 MG (CORDARONE) TAB PO SCH (21:20)
[2021-07-09] MEDS: PANTOPRAZOLE 40 MG (PROTONIX) TAB PO SCH (21:20)
[2021-07-10] VITALS (7 sets, daily range): BP systolic 100–131; BP diastolic 50–78
[2021-07-10] MEDS: CATHETER FLUSH 10 ML SYR IV SCH ×3 (06:38→20:32)
[2021-07-10] MEDS ORDERED: KCL 20 MEQ TAB (K-DUR) PO SCH (07:00)
[2021-07-10 07:04] LABS: HEMATOCRIT 39 % (35-52); HEMOGLOBIN 12.2 g/dL (11.5-16.0); MEAN CORPUSCULAR HEMOGLOBIN 28 pg (25-34); MEAN CORPUSCULAR HGB CONC 32 g/dL (32-36); MEAN CORPUSCULAR VOLUME 89 fL (80-99); MEAN PLATELET VOLUME 9.9 fL (9.0-12.2); PLATELET COUNT 239 10^3/uL (130-400); WHITE BLOOD COUNT 9.1 10^3/uL (4.3-11.0)
[2021-07-10 07:18] LABS: POTASSIUM 4.1 MMOL/L (3.6-5.0)
[2021-07-10 07:20] LABS: CALCIUM 8.8 MG/DL (8.5-10.1)
[2021-07-10 07:21] LABS: TOTAL PROTEIN 7.1 GM/DL (6.4-8.2)
[2021-07-10 07:23] LABS: BILIRUBIN,TOTAL 0.7 MG/DL (0.1-1.0)
[2021-07-10 07:24] LABS: CREATININE SERUM 1.12 MG/DL (0.60-1.30)
[2021-07-10 07:26] LABS: INR 2.3 (0.8-1.4); PROTHROMBIN TIME PATIENT 25.5 SEC (12.2-14.7)
[2021-07-10] MEDS: PANTOPRAZOLE 40 MG (PROTONIX) TAB PO SCH ×2 (08:26→20:31)
[2021-07-10] MEDS: SPIRONOLACTONE 25 MG (ALDACTONE) TAB PO SCH ×2 (08:26→20:32)
[2021-07-10] MEDS: AMIODARONE 200 MG (CORDARONE) TAB PO SCH ×2 (08:27→20:31)
[2021-07-10] MEDS: MAGNESIUM OXIDE (MAG-OX)400 MG TAB PO SCH (08:27)
[2021-07-10] MEDS: FUROSEMIDE 40 MG/4 ML INJ (LASIX) IV SCH ×2 (08:27→16:49)
[2021-07-10] MEDS: LOSARTAN 25 MG (COZAAR) TAB PO SCH (08:27)
[2021-07-10] MEDS ORDERED: FUROSEMIDE 40 MG/4 ML INJ (LASIX) IV SCH (09:00)
--- NOTE | 2021-07-10 09:13 | Progress Note ---
Subjective Date Seen by a Provider: Jul 10, 2021 Time Seen by a Provider: 09:04 Subjective/Events-last exam Fwup acute on chronic systolic CHF, Dilated Cardiomyopathy with EF of 25%, Chronic Atrial fibrillation, sick sinus syndrome with biventricular defibrillator, mild ascites due to heart failure, edema of LEs, GERD, Anxiety. Sitting up in chair eating breakfast. Not quite as short of air. Still with 2 plus pitting edema. Objective Exam Vital Signs Date Time Temp Pulse Resp B/P (MAP) Pulse Ox O2 Delivery O2 Flow Rate FiO2 07/10/21 07:47 36.8 70 20 131/78 (95) 95 Room Air 07/10/21 04:45 36.6 77 18 124/60 (81) 98 Room Air 07/10/21 00:15 36.4 74 18 113/63 (80) 96 Room Air 07/09/21 21:20 95 Room Air 07/09/21 20:05 36.7 71 18 120/87 (98) 95 Room Air 07/09/21 19:38 96 Room Air 07/09/21 16:00 36.3 73 18 143/63 (89) 95 Room Air 07/09/21 11:35 36.8 75 18 135/69 (91) 98 Room Air I & O 07/10/21 07:00 Intake Total 2330 ml Output Total 2550 ml Balance -220 ml Capillary Refill : NONE General Appearance: No Apparent Distress Respiratory: Lungs Clear Cardiovascular: Systolic Murmur, Gallop/S4, Irregularly Irregular Gastrointestinal: normal bowel sounds, soft, tenderness Extremity: Non Tender, No Calf Tenderness, Pedal Edema (2 plus) Neurologic/Psychiatric: Alert, Oriented x3 Skin: Warm/Dry Results Lab Laboratory Tests 07/10/21 06:49: White Blood Count 9.1, Red Blood Count 4.32, Hemoglobin 12.2, Hematocrit 39, Mean Corpuscular Volume 89, Mean Corpuscular Hemoglobin 28, Mean Corpuscular Hemoglobin Concent 32, Red Cell Distribution Width 15.4H, Platelet Count 239, Mean Platelet Volume 9.9, Prothrombin Time 25.5H, INR Comment 2.3H, Sodium Level 138, Potassium Level 4.1, Chloride Level 102, Carbon Dioxide Level 22, Anion Gap 14, Blood Urea Nitrogen 22H, Creatinine 1.12, Estimat Glomerular Filtration Rate 48, BUN/Creatinine Ratio 20, Glucose Level 106H, Calcium Level 8.8, Corrected Calcium 8.8, Magnesium Level 2.0, Total Bilirubin 0.7, Aspartate Amino Transf (AST/SGOT) 21, Alanine Aminotransferase (ALT/SGPT) 13, Alkaline Phosphatase 115, Total Protein 7.1, Albumin 4.0 Assessment/Plan Assessment/Plan Assess & Plan/Chief Complaint 1. Acute on Chronic Systolic CHF--Increase lasix to 80mg IV BID today since renal function is stable, hopefully home tomorrow if diureses well 2. Dilated Cardiomyopathy--most recent ECHO showed worsening EF of 20-25% 3. Chronic Atrial Fibrillation--rate controlled, on amiodarone and coumadin--INR 2.3 4. Type II WI due to Decompensated Heart Failure 5. Mild Ascites and Bilateral LE edema due to heart failure--will give extra lasix today and elevate legs with MOSHE hose 6. GERD--on protonix 7. Anxiety--resume buspirone 8. Recent UTI--start rocephin Clinical Quality Measures AMI/AHF: ASA po Prior to arrival: No (On warfarin) FARHAT SERNA DO Jul 10, 2021 09:13
[2021-07-10] MEDS: cefTRIAXone 1 GM PRE-MIX 50 ML IV SCH (09:35)
--- NOTE | 2021-07-10 11:59 | Cardiology Progress Note ---
Progress Note-Cardiology Events since last exam Date Seen by Provider: Jul 10, 2021 Time Seen by Provider: 11:58 Events since last exam I am following her due to heart failure. She normally follows with Dr. Sprague in [place]. Her primary provider has doubled her dose of intravenous furosemide. She still feels very short of breath with minimal activity. She has persistent abdominal bloating as well as bilateral lower extremity edema. She is wearing compression stockings. She denies chest pain, palpitations, or syncope. Certain portions of this document may have been dictated utilizing voice recognition technology. Inherent to this technology, typographical and grammatical errors may exist. As much as I am diligent to identify and correct these mistakes, some errors may remain in the document. Vitals Last set of Vitals Signs Vital Signs 07/10/21 11:28 Temp 36.7 Pulse 70 Resp 20 B/P (MAP) 100/57 (71) Pulse Ox 97 O2 Delivery Room Air Labs Labs Laboratory Tests 07/10/21 06:49 Exam Vital Signs Vital Signs Date Time Temp Pulse Resp B/P (MAP) Pulse Ox O2 Delivery O2 Flow Rate FiO2 07/10/21 11:28 36.7 70 20 100/57 (71) 97 Room Air Physical Exam General: Alert. No acute distress. Eye: No xanthelasma. HENT: Normocephalic. Neck: Jugular venous pressure does not appear elevated. Respiratory: Lungs are clear to auscultation. Respirations are non-labored. Breath sounds are equal. Symmetrical chest wall expansion. Cardiovascular: Normal rate. Regular rhythm. No murmur. No gallop. 1+ bilateral pretibial edema with compression stockings in place. Gastrointestinal: Soft. Normal bowel sounds. Skin: Warm. Dry. Neurologic: Alert and oriented to person, place, time. Cranial nerves 3-11 grossly intact. Psychiatric: Cooperative. Appropriate mood & affect. Labs Laboratory Tests Test 07/10/21 06:49 Range/Units White Blood Count 9.1 4.3-11.0 10^3/uL Red Blood Count 4.32 3.80-5.11 10^6/uL Hemoglobin 12.2 11.5-16.0 g/dL Hematocrit 39 35-52 % Mean Corpuscular Volume 89 80-99 fL Mean Corpuscular Hemoglobin 28 25-34 pg Mean Corpuscular Hemoglobin Concent 32 32-36 g/dL Red Cell Distribution Width 15.4 H 10.0-14.5 % Platelet Count 239 130-400 10^3/uL Mean Platelet Volume 9.9 9.0-12.2 fL Prothrombin Time 25.5 H 12.2-14.7 SEC INR Comment 2.3 H 0.8-1.4 Sodium Level 138 135-145 MMOL/L Potassium Level 4.1 3.6-5.0 MMOL/L Chloride Level 102 98-107 MMOL/L Carbon Dioxide Level 22 21-32 MMOL/L Anion Gap 14 5-14 MMOL/L Blood Urea Nitrogen 22 H 7-18 MG/DL Creatinine 1.12 0.60-1.30 MG/DL Estimat Glomerular Filtration Rate 48 BUN/Creatinine Ratio 20 Glucose Level 106 H 70-105 MG/DL Calcium Level 8.8 8.5-10.1 MG/DL Corrected Calcium 8.8 8.5-10.1 MG/DL Magnesium Level 2.0 1.6-2.4 MG/DL Total Bilirubin 0.7 0.1-1.0 MG/DL Aspartate Amino Transf (AST/SGOT) 21 5-34 U/L Alanine Aminotransferase (ALT/SGPT) 13 0-55 U/L Alkaline Phosphatase 115 40-136 U/L Total Protein 7.1 6.4-8.2 GM/DL Albumin 4.0 3.2-4.5 GM/DL Diagnosis/Problems Diagnosis/Problems (1) Acute on chronic HFrEF (heart failure with reduced ejection fraction) Assessment & Plan: She tells me that her ejection fraction has declined over the past 6-12 months. She also had a cardiac catheterization earlier this year and reports there was no signs of obstructive pulmonary disease. This raises a concern of progressive cardiomyopathy. She does have a prophylactic defibrillator in place. This is a biventricular device. She is on the appropriate guideline directed medical therapy but has a worsening ejection fraction and now class IV heart failure. We will treated with intravenous diuretics. She may need to be evaluated for amyloidosis. This can be coordinated with her regular oil pipe inspector helper. I do not see any indication to transfer her to a heart failure center for advanced therapy at this time. (2) Cardiomyopathy Assessment & Plan: As above, according to the patient, her ejection fraction has declined over the past year. She states her most recent ejection fraction was around 25% just a few weeks ago. This appears to be nonischemic cardiomyopathy. Amyloidosis is in the differential diagnosis. If she has not already been screened for amyloidosis, this should probably be considered. (3) Elevated troponin Status: Acute Assessment & Plan: This is most likely a type II non-ST elevation myocardial infarction due to her decompensated heart failure. As above, she had a recent cardiac catheterization that did not show any coronary artery disease. She has been on warfarin due to atrial fibrillation and this should be continued. (4) Paroxysmal atrial fibrillation Assessment & Plan: Her electrocardiogram on admission shows dual-chamber pacing. Her INR level is therapeutic. She should continue on warfarin. She was apparently on apixaban about 5 years ago and it sounds as though she may have had a left atrial thrombus at that time. I suggested she speak to her regular oil pipe inspector helper about changing back over to a today DOAC. These have a much better safety profile and at least equal efficacy as warfarin. (5) Sick sinus syndrome Assessment & Plan: She has a biventricular defibrillator in place that appears to be functioning normally surface electrocardiogram. (6) Cardiac pacemaker in situ Assessment & Plan: This is followed by her regular oil pipe inspector helper at the outside facility. She did not report any recent defibrillator discharges. (7) Primary hypertension Assessment & Plan: Continue outpatient antihypertensive medication. CHUYITA MERCHANT JR, MD Jul 10, 2021 11:59
[2021-07-10] MEDS: warFARin 2.5 MG (COUMADIN) TAB PO SCH (17:01)
[2021-07-10] MEDS: busPIRone 5 MG (BUSPAR) TAB PO SCH (20:31)
[2021-07-10] MEDS: KCL 20 MEQ TAB (K-DUR) PO SCH (20:31)
[2021-07-10] MEDS: ALLOPURINOL 100 MG (ZYLOPRIM) TAB PO SCH (20:33)
[2021-07-11 03:26] VITALS: BP 121/59
[2021-07-11 05:56] LABS: HEMATOCRIT 40 % (35-52); HEMOGLOBIN 12.5 g/dL (11.5-16.0); MEAN CORPUSCULAR HEMOGLOBIN 28 pg (25-34); MEAN CORPUSCULAR HGB CONC 32 g/dL (32-36); MEAN CORPUSCULAR VOLUME 89 fL (80-99); MEAN PLATELET VOLUME 10.3 fL (9.0-12.2); PLATELET COUNT 237 10^3/uL (130-400); WHITE BLOOD COUNT 9.7 10^3/uL (4.3-11.0)
[2021-07-11 06:11] LABS: POTASSIUM 4.7 MMOL/L (3.6-5.0)
[2021-07-11 06:12] LABS: CALCIUM 8.9 MG/DL (8.5-10.1)
[2021-07-11 06:17] LABS: CREATININE SERUM 1.26 MG/DL (0.60-1.30)
[2021-07-11 06:28] LABS: INR 2.4 (0.8-1.4); PROTHROMBIN TIME PATIENT 26.9 SEC (12.2-14.7)
[2021-07-11] MEDS: FUROSEMIDE 40 MG/4 ML INJ (LASIX) IV SCH ×2 (06:33→17:58)
[2021-07-11] MEDS: CATHETER FLUSH 10 ML SYR IV SCH ×3 (06:33→19:57)
[2021-07-11 08:00] VITALS: BP 120/60
[2021-07-11] MEDS: LOSARTAN 25 MG (COZAAR) TAB PO SCH (09:03)
[2021-07-11] MEDS: KCL 20 MEQ TAB (K-DUR) PO SCH ×2 (09:04→19:56)
[2021-07-11] MEDS: AMIODARONE 200 MG (CORDARONE) TAB PO SCH ×2 (09:04→19:56)
[2021-07-11] MEDS: PANTOPRAZOLE 40 MG (PROTONIX) TAB PO SCH ×2 (09:04→19:56)
[2021-07-11] MEDS: cefTRIAXone 1 GM PRE-MIX 50 ML IV SCH (09:04)
[2021-07-11] MEDS: MAGNESIUM OXIDE (MAG-OX)400 MG TAB PO SCH (09:04)
[2021-07-11] MEDS: SPIRONOLACTONE 25 MG (ALDACTONE) TAB PO SCH ×2 (09:04→19:58)
--- NOTE | 2021-07-11 09:23 | Progress Note ---
Subjective Date Seen by a Provider: Jul 11, 2021 Time Seen by a Provider: 09:21 Subjective/Events-last exam Fwup acute on chronic systolic CHF, Dilated Cardiomyopathy with EF of 25%, Chronic Atrial fibrillation, sick sinus syndrome with biventricular defibrillator, mild ascites due to heart failure, edema of LEs, GERD, Anxiety. Diuresed more with higher dose of lasix yesterday but still with edema in legs and abdomen. Patient is afraid to go home with extra fluid since the oral diuretics have not been working. Objective Exam Vital Signs Date Time Temp Pulse Resp B/P (MAP) Pulse Ox O2 Delivery O2 Flow Rate FiO2 07/11/21 08:00 35.5 73 18 120/60 (80) 96 Room Air 07/11/21 03:26 36.1 76 18 121/59 (79) 99 Room Air 07/10/21 23:56 36.1 70 18 113/59 (77) 96 Room Air 07/10/21 20:35 Room Air 07/10/21 19:48 36.2 71 18 100/50 (67) 96 Room Air 07/10/21 15:51 36.2 76 18 101/52 (68) 95 Room Air 07/10/21 11:28 36.7 70 20 100/57 (71) 97 Room Air I & O 07/11/21 07:00 Intake Total 2050 ml Output Total 1750 ml Balance 300 ml Capillary Refill : NONE General Appearance: No Apparent Distress Neck: Supple Respiratory: Lungs Clear, Decreased Breath Sounds Cardiovascular: Bradycardia, Systolic Murmur, Irregularly Irregular Gastrointestinal: normal bowel sounds, non tender, soft Extremity: No Calf Tenderness, Pedal Edema (2 plus) Neurologic/Psychiatric: Alert, Oriented x3 Results Lab Laboratory Tests 07/11/21 05:15: White Blood Count 9.7, Red Blood Count 4.42, Hemoglobin 12.5, Hematocrit 40, Mean Corpuscular Volume 89, Mean Corpuscular Hemoglobin 28, Mean Corpuscular Hemoglobin Concent 32, Red Cell Distribution Width 15.3H, Platelet Count 237, Mean Platelet Volume 10.3, Prothrombin Time 26.9H, INR Comment 2.4H, Sodium Level 133L, Potassium Level 4.7, Chloride Level 100, Carbon Dioxide Level 21, Anion Gap 12, Blood Urea Nitrogen 26H, Creatinine 1.26, Estimat Glomerular Filtration Rate 42, BUN/Creatinine Ratio 21, Glucose Level 121H, Calcium Level 8.9 Assessment/Plan Assessment/Plan Assess & Plan/Chief Complaint 1. Acute on Chronic Systolic CHF--Continue lasix at 80mg IV BID today, hopefully home tomorrow if diureses well 2. Dilated Cardiomyopathy--most recent ECHO showed worsening EF of 20-25% 3. Chronic Atrial Fibrillation--rate controlled, on amiodarone and coumadin--INR 2.4 4. 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 Mild Ascites and Bilateral LE edema due to heart failure--will give extra lasix today and continue to elevate legs with MOSHE hose 6. GERD--on protonix 7. Anxiety--on buspirone 8. Recent UTI--continue rocephin Clinical Quality Measures AMI/AHF: ASA po Prior to arrival: No (On warfarin) FARHAT SERNA DO Jul 11, 2021 09:23
[2021-07-11] MEDS ORDERED: LOSA25TA41 PO (10:20)
[2021-07-11] MEDS ORDERED: PANT40TA52 PO (10:21)
[2021-07-11] MEDS ORDERED: POTA10TA37 PO (10:22)
[2021-07-11] MEDS ORDERED: MAGN400T7 PO (10:23)
[2021-07-11] MEDS ORDERED: L.AC1CAP6 PO (10:23)
[2021-07-11] MEDS ORDERED: PEDI1TAB46 PO (10:24)
[2021-07-11] MEDS ORDERED: BUSP5TAB59 PO (10:26)
[2021-07-11] MEDS ORDERED: busPIRone 5 MG (BUSPAR) TAB PO ONE (10:45)
[2021-07-11 12:00] VITALS: BP 119/68
[2021-07-11 15:59] VITALS: BP 107/61
[2021-07-11] MEDS: warFARin 2.5 MG (COUMADIN) TAB PO SCH (17:54)
--- NOTE | 2021-07-11 18:10 | Cardiology Progress Note ---
Progress Note-Cardiology Events since last exam Date Seen by Provider: Jul 11, 2021 Time Seen by Provider: 18:09 Events since last exam I went to her room but she was not there. I will follow-up tomorrow. Vitals Last set of Vitals Signs Vital Signs 07/11/21 15:59 Temp 36.3 Pulse 76 Resp 19 B/P (MAP) 107/61 (76) Pulse Ox 98 O2 Delivery Room Air Labs Labs Laboratory Tests 07/11/21 05:15 Exam Vital Signs Vital Signs Date Time Temp Pulse Resp B/P (MAP) Pulse Ox O2 Delivery O2 Flow Rate FiO2 07/11/21 15:59 36.3 76 19 107/61 (76) 98 Room Air Labs Laboratory Tests Test 07/11/21 05:15 Range/Units White Blood Count 9.7 4.3-11.0 10^3/uL Red Blood Count 4.42 3.80-5.11 10^6/uL Hemoglobin 12.5 11.5-16.0 g/dL Hematocrit 40 35-52 % Mean Corpuscular Volume 89 80-99 fL Mean Corpuscular Hemoglobin 28 25-34 pg Mean Corpuscular Hemoglobin Concent 32 32-36 g/dL Red Cell Distribution Width 15.3 H 10.0-14.5 % Platelet Count 237 130-400 10^3/uL Mean Platelet Volume 10.3 9.0-12.2 fL Prothrombin Time 26.9 H 12.2-14.7 SEC INR Comment 2.4 H 0.8-1.4 Sodium Level 133 L 135-145 MMOL/L Potassium Level 4.7 3.6-5.0 MMOL/L Chloride Level 100 98-107 MMOL/L Carbon Dioxide Level 21 21-32 MMOL/L Anion Gap 12 5-14 MMOL/L Blood Urea Nitrogen 26 H 7-18 MG/DL Creatinine 1.26 0.60-1.30 MG/DL Estimat Glomerular Filtration Rate 42 BUN/Creatinine Ratio 21 Glucose Level 121 H 70-105 MG/DL Calcium Level 8.9 8.5-10.1 MG/DL Diagnosis/Problems Diagnosis/Problems (1) Acute on chronic HFrEF (heart failure with reduced ejection fraction) Assessment & Plan: She tells me that her ejection fraction has declined over the past 6-12 months. She also had a cardiac catheterization earlier this year and reports there was no signs of obstructive pulmonary disease. This raises a concern of progressive cardiomyopathy. She does have a prophylactic defibrillator in place. This is a biventricular device. She is on the appropriate guideline directed medical therapy but has a worsening ejection fraction and now class IV heart failure. We will treated with intravenous diuretics. She may need to be evaluated for amyloidosis. This can be coordinated with her regular floor layer apprentice. I do not see any indication to transfer her to a heart failure center for advanced therapy at this time. (2) Cardiomyopathy Assessment & Plan: As above, according to the patient, her ejection fraction has declined over the past year. She states her most recent ejection fraction was around 25% just a few weeks ago. 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 Amyloidosis is in the differential diagnosis. If she has not already been screened for amyloidosis, this should probably be considered. (3) Elevated troponin Status: Acute Assessment & Plan: This is most likely a type II non-ST elevation myocardial infarction due to her decompensated heart failure. As above, she had a recent cardiac catheterization that did not show any coronary artery disease. She has been on warfarin due to atrial fibrillation and this should be continued. (4) Paroxysmal atrial fibrillation Assessment & Plan: Her electrocardiogram on admission shows dual-chamber pacing. Her INR level is therapeutic. She should continue on warfarin. She was apparently on apixaban about 5 years ago and it sounds as though she may have had a left atrial thrombus at that time. I suggested she speak to her regular floor layer apprentice about changing back over to a today DOAC. These have a much better safety profile and at least equal efficacy as warfarin. (5) Sick sinus syndrome Assessment & Plan: She has a biventricular defibrillator in place that appears to be functioning normally surface electrocardiogram. (6) Cardiac pacemaker in situ Assessment & Plan: This is followed by her regular floor layer apprentice at the outside facility. She did not report any recent defibrillator discharges. (7) Primary hypertension Assessment & Plan: Continue outpatient antihypertensive medication. CHUYITA MERCHANT JR, MD Jul 11, 2021 18:10
[2021-07-11 19:25] VITALS: BP 117/56
[2021-07-11] MEDS: ALLOPURINOL 100 MG (ZYLOPRIM) TAB PO SCH (19:56)
[2021-07-11] MEDS: busPIRone 5 MG (BUSPAR) TAB PO SCH (19:56)
[2021-07-12 00:03] VITALS: BP 130/67
[2021-07-12] MEDS: CATHETER FLUSH 10 ML SYR IV SCH (06:03)
[2021-07-12] MEDS: FUROSEMIDE 40 MG/4 ML INJ (LASIX) IV SCH (06:03)
[2021-07-12 06:23] LABS: INR 2.1 (0.8-1.4); POTASSIUM 4.5 MMOL/L (3.6-5.0); PROTHROMBIN TIME PATIENT 24.3 SEC (12.2-14.7)
[2021-07-12 06:24] LABS: CALCIUM 9.3 MG/DL (8.5-10.1)
[2021-07-12 06:29] LABS: CREATININE SERUM 1.5 MG/DL (0.60-1.30)
[2021-07-12 07:52] VITALS: BP 133/77
[2021-07-12] MEDS: KCL 20 MEQ TAB (K-DUR) PO SCH (09:25)
[2021-07-12] MEDS: AMIODARONE 200 MG (CORDARONE) TAB PO SCH (09:25)
[2021-07-12] MEDS: MAGNESIUM OXIDE (MAG-OX)400 MG TAB PO SCH (09:25)
[2021-07-12] MEDS: PANTOPRAZOLE 40 MG (PROTONIX) TAB PO SCH (09:25)
[2021-07-12] MEDS: SPIRONOLACTONE 25 MG (ALDACTONE) TAB PO SCH (09:25)
[2021-07-12] MEDS: LOSARTAN 25 MG (COZAAR) TAB PO SCH (09:25)
[2021-07-12] MEDS: cefTRIAXone 1 GM PRE-MIX 50 ML IV SCH (09:26)
[2021-07-12 14:30] VITALS: BP 133/77
--- NOTE | 2021-07-12 17:38 | Discharge Summary ---
Diagnosis/Chief Complaint Date of Admission Jul 08, 2021 at 23:11 Date of Discharge Jul 12, 2021 at 14:30 Discharge Date: Jul 12, 2021 Discharge Diagnosis 1. Acute on Chronic Systolic CHF--has diuresed 6lbs with higher dose of IV lasix 2. Dilated Cardiomyopathy--most recent ECHO showed worsening EF of 20-25%, awaiting referral to specialist at [facility] 3. Chronic Atrial Fibrillation--rate controlled, on amiodarone and coumadin--INR 2.4 4. Type II AR due to Decompensated Heart Failure 5. Mild Ascites and Bilateral LE edema due to heart failure--improved 6. GERD--on protonix 7. Anxiety--on buspirone 8. Recent UTI--continue rocephin Discharge Summary Hospital Course Was the Problem List Reviewed?: Yes Hospital Course This is a 70 year old female with a known history of cardiomyopathy with recent ECHO showing worsening EF down to 20-25%. She has been having worsening edema both in her legs and abdomen but then started having worsening shortness of air. She was brought to the emergency room where she was found to have decompensated systolic congestive heart failure with an elevated troponin-I. She will be admitted for IV diuresis with lasix and cardiology consult. She was admitted to the medical floor and started on IV lasix 40mg BID. Her home medications including amiodarone, warfarin, spironolactone and losartan were resumed. It was felt that her elevated troponin-I was likely due to a type II AR due to the decompensated heart failure. 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 She was feeling much better after the diuresis with less edema of her legs and her abdomen was less tense and she was less short of air. She was also given IV rocephin due to a recent UTI. She will be sent home to resume her bumex with spironolactone and her current medications. She has a follow up with her webbing supervisor next week and is awaiting an appointment with a water resource engineering specialist at [facility] in [place]. Labs Laboratory Tests 07/10/21 06:49: Red Cell Distribution Width 15.4H, Prothrombin Time 25.5H, INR Comment 2.3H, Blood Urea Nitrogen 22H, Glucose Level 106H 07/11/21 05:15: Red Cell Distribution Width 15.3H, Prothrombin Time 26.9H, INR Comment 2.4H, Blood Urea Nitrogen 26H, Glucose Level 121H, Sodium Level 133L 07/12/21 05:17: Prothrombin Time 24.3H, INR Comment 2.1H, Blood Urea Nitrogen 28H, Glucose Level 145H, Sodium Level 134L, Creatinine 1.50H Procedures None. Discharge Physical Examination Allergies: Coded Allergies: rosuvastatin (Unverified Allergy, Mild, 03/06/18) sacubitril (Verified Allergy, Mild, RASH, 07/01/18) PATIENT HAS ITCHING FROM MEDICATION valsartan (Verified Allergy, Mild, RASH, 07/01/18) PATIENT HAS ITCHING FROM MEDICATION Sulfa (Sulfonamide Antibiotics) (Verified Allergy, Unknown, 03/06/18) fentanyl (Verified Adverse Reaction, Unknown, Vomiting, 04/14/19) Vitals & I&Os Vital Signs Date Time Temp Pulse Resp B/P (MAP) Pulse Ox O2 Delivery O2 Flow Rate FiO2 07/12/21 14:30 36.6 74 20 133/77 97 Room Air General Appearance: Alert, Oriented X3, No Acute Distress Respiratory: Clear to Auscultation Cardiovascular: Other (systolic murmur/irregularly irregular) Abdominal: Normal Bowel Sounds, Soft, No Tenderness Extremities: Other (trace PTE) Psych/Mental Status: Mental Status NL Discharge Home Medications Reviewed and agree with Discharge Medication list on patient's Discharge Instruction sheet Instructions to Patient/Family Please see electronic discharge instructions given to patient. Clinical Quality Measures AMI/AHF: ASA po Prior to arrival: No (On warfarin) FARHAT SERNA DO Jul 12, 2021 17:38
== END 2021-07-12 14:30 | disposition home or self-care (01) | DRG 280 ==
LOC: EDUNIT# 21:50 → ER 21:51 → 4TH 23:11 → EDLOC 23:11
PROVIDERS: ADMIT Family Medicine; ATTEND Family Medicine
DX: I11.0 Hypertensive heart disease with heart failure (principal); I50.23 Acute on chronic systolic (congestive) heart failure; I21.A1 Myocardial infarction type 2; I48.20 Chronic atrial fibrillation, unspecified; N39.0 Urinary tract infection, site not specified; R18.8 Other ascites; I27.20 Pulmonary hypertension, unspecified; K74.60 Unspecified cirrhosis of liver; G47.30 Sleep apnea, unspecified; I25.10 Atherosclerotic heart disease of native coronary artery without angina pectoris; K21.9 Gastro-esophageal reflux disease without esophagitis; H54.7 Unspecified visual loss; I42.0 Dilated cardiomyopathy; F41.9 Anxiety disorder, unspecified; I49.5 Sick sinus syndrome; I48.0 Paroxysmal atrial fibrillation; M10.9 Gout, unspecified; Z79.899 Other long term (current) drug therapy; Z79.01 Long term (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; Z99.89 Dependence on other enabling machines and devices; Z95.810 Presence of automatic (implantable) cardiac defibrillator
CPT/HCPCS: 36415; 71045; 74178; 80048; 80053; 80061; 83735; 83874; 83880; 84484; 85025; 85027; 85610; 85730; 93005; 93041; 94760

== ENCOUNTER → 2021-08-03 | Outpatient (CLI) | payer MEDICARE, OTHER ==
[~2021-08-03] MED LIST changes: +BUSP5TAB59 PO; +L.AC1CAP6 PO; +MAGN400T7 PO; +MGX400T PO; +PANT40SU PO; +PEDI1TAB46 PO; +POTA-179 PO; +POTA10TA37 PO
== END ==
LOC: LAB 07:41
PROVIDERS: ATTEND Nurse Practitioner Family
DX: R94.7 Abnormal results of other endocrine function studies (principal)
CPT/HCPCS: 36415; 82024; 82533; 83789; 84270

== ENCOUNTER → 2021-08-31 | Outpatient (CLI) | payer MEDICARE, OTHER ==
--- NOTE | 2021-08-31 16:53 | Diagnostic Imaging Report ---
PROCEDURE: US right lower extremity venous. TECHNIQUE: Multiple real-time grayscale images were obtained over the right lower extremity in various projections. Additional spectral analysis and color Doppler duplex images were also obtained. INDICATION: Right leg swelling. FINDINGS: The veins of the right leg have good color filling and compressibility. There is phasic flow and a normal response to augmentation. IMPRESSION: Negative venous Doppler right leg. Dictated by: Dictated on workstation # [id number]
== END ==
LOC: RAD 16:00
PROVIDERS: ATTEND Family Medicine
DX: R22.41 Localized swelling, mass and lump, right lower limb (principal)

== ENCOUNTER → 2021-10-25 | Outpatient (CLI) | payer MEDICARE, OTHER ==
[~2021-10-25] MED LIST changes: +ASPI-479 PO; +ATOR10TA66 PO; +CRAN400C PO; +POTA-51 PO
--- NOTE | 2021-10-25 13:42 | Diagnostic Imaging Report ---
PROCEDURE: US Renal Bilateral. TECHNIQUE: Multiple Real-time grayscale images were obtained over the kidneys in various projections bilaterally. INDICATION: Chronic kidney disease, stage 3a. FINDINGS: The right kidney measures 9.7 x 4.0 x 3.5 cm and the left kidney measures 10.6 x 4.5 x 5.7 cm. The cortical thickness and echogenicity are normal. No calculi are seen. There is no hydronephrosis. Bilateral ureteral jets were visualized within the bladder. IMPRESSION: Unremarkable renal ultrasound. Dictated by: Dictated on workstation # [id number]
== END ==
LOC: RAD 12:00
PROVIDERS: ATTEND Internal Medicine Nephrology
DX: I12.9 Hypertensive chronic kidney disease with stage 1 through stage 4 chronic kidney disease, or unspecified chronic kidney disease (principal); N18.31 Chronic kidney disease, stage 3a
CPT/HCPCS: 76770

== ENCOUNTER 2021-11-04 10:17 | Outpatient (RCR) | payer MEDICARE, OTHER | END 2021-11-05 | LOC: CR 10:17 | PROVIDERS: ATTEND Family Medicine | DX: Z29.8 Encounter for other specified prophylactic measures (principal); R53.1 Weakness; Z95.2 Presence of prosthetic heart valve; Z95.4 Presence of other heart-valve replacement | CPT/HCPCS: 93798 ==

== ENCOUNTER 2021-11-14 15:08 | Emergency (ER) | payer MEDICARE, OTHER ==
[~2021-11-14] VITALS: Ht 152 cm; Wt 56.0 kg
--- NOTE | 2021-11-14 15:24 | ED Abdominal Pain ---
General Stated Complaint: N/V,COUGH,FLUID BUILD UP Source of Information: Patient Exam Limitations: No Limitations History of Present Illness Date Seen by Provider: November 14, 2021 Time Seen by Provider: 15:22 Initial Comments To ER with c/o abdominal swelling and "fluid build up". She states the fluid build up is "in my abdomen". States her underwear are tighter. She is also very anxious. She c/o nausea as well. Timing/Duration: 2-3 Days, Getting Worse Severity/Quality: Moderate Location: Generalized Abdomen Radiation: No Radiation Activities at Onset: None Associated Symptoms: Denies Symptoms Allergies and Home Medications Allergies Coded Allergies: rosuvastatin (Unverified Allergy, Mild, 03/06/18) sacubitril (Verified Allergy, Mild, RASH, 07/01/18) PATIENT HAS ITCHING FROM MEDICATION valsartan (Verified Allergy, Mild, RASH, 07/01/18) PATIENT HAS ITCHING FROM MEDICATION Sulfa (Sulfonamide Antibiotics) (Verified Allergy, Unknown, 03/06/18) fentanyl (Verified Adverse Reaction, Unknown, Vomiting, 04/14/19) Patient Home Medication List Home Medication List Reviewed: Yes Allopurinol (Allopurinol) 100 Mg Tablet, 100 MG PO 1800, (Reported) Entered as Reported by: THOMPSON JENKINS on 08/20/20 1537 Amiodarone HCl (Amiodarone HCl) 200 Mg Tablet, 200 MG PO 0700,1800, (Reported) Entered as Reported by: MARNIE GONZALEZ on 04/15/19 1027 Aspirin (Adult Low Dose Aspirin EC) 81 Mg Tablet.dr, 81 MG PO DAILY, (Reported) Entered as Reported by: THOMPSON JENKINS on 10/11/21 0851 Atorvastatin Calcium (Atorvastatin Calcium) 10 Mg Tablet, 10 MG PO 1800, (Reported) Entered as Reported by: THOMPSON JENKINS on 10/11/21 0851 Buspirone HCl (Buspirone HCl) 5 Mg Tablet, 5 MG PO 1800, (Reported) Entered as Reported by: RAYMOND CASTRO on 07/11/21 1026 Carvedilol (Carvedilol) 6.25 Mg Tablet, 6.25 MG PO 0700,1800, (Reported) Entered as Reported by: MARNIE GONZALEZ on 04/15/19 1027 Cranberry (Cranberry) 400 Mg Capsule, 400 MG PO DAILY, (Reported) Entered as Reported by: THOMPSON JENKINS on 10/11/21 0850 Furosemide (Furosemide) 40 Mg Tablet, 40 MG PO DAILY, (Reported) Entered as Reported by: THOMPSON JENKINS on 10/11/21 0851 L.acidoph & Paracasei,B.lactis (Probiotic) 1 Each Capsule, 1 EACH PO DAILY, (Reported) Entered as Reported by: RAYMOND CASTRO on 07/11/21 1023 Losartan Potassium (Losartan Potassium) 25 Mg Tablet, 25 MG PO DAILY, (Reported) Entered as Reported by: RAYMOND CASTRO on 07/11/21 1020 Magnesium Oxide (Magnesium Oxide) 400 Mg Tablet, 400 MG PO DAILY, (Reported) Entered as Reported by: RAYMOND CASTRO on 07/11/21 1023 Metronidazole (Metronidazole) 500 Mg Tablet, 500 MG PO BID Prescribed by: FARHAT SERNA on 10/13/21 0857 Ondansetron (Ondansetron Odt) 8 Mg Tab.rapdis, 8 MG PO Q6H PRN for NAUSEA/VOMITING Prescribed by: ZIYAD BUNN on 11/14/21 1655 Pantoprazole Sodium (Pantoprazole Sodium) 40 Mg Tablet.dr, 40 MG PO DAILY, (Reported) Entered as Reported by: RAYMOND CASTRO on 07/11/21 1021 Potassium Chloride (Potassium Chloride) 20 Meq Tablet.er, 20 MEQ PO DAILY, (Reported) Entered as Reported by: THOMPSON JENKINS on 10/11/21 0851 Warfarin Sodium (Warfarin Sodium) 2.5 Mg Tablet, 2.5 MG PO 1800, (Reported) Entered as Reported by: THOMPSON JENKINS on 08/20/20 1537 Review of Systems Review of Systems Constitutional: see HPI EENTM: No Symptoms Reported Respiratory: No Symptoms Reported Cardiovascular: No Symptoms Reported; Denies Chest Pain Gastrointestinal: See HPI, Abdominal Pain; Denies Diarrhea, Denies Nausea Genitourinary: No Symptoms Reported Musculoskeletal: no symptoms reported Skin: no symptoms reported Psychiatric/Neurological: No Symptoms Reported Endocrine: No Symptoms Reported Hematologic/Lymphatic: No Symptoms Reported Past Zjyyyek-Xiknda-Imfvss Hx Immunizations Up To Date Tetanus Booster (TDap): Unknown PED Vaccines UTD: No First/Initial COVID19 Vaccinat: JULY 2020 Second COVID19 Vaccination Gurpreet: AUGUST 2020 Third COVID19 Vaccination Date: APRIL 2021 Seasonal Allergies Seasonal Allergies: No Past Medical History Surgery/Hospitalization HX: CHF, PACEMAKER, ANGEL LUIS, PULM HTN, CIRRHOSIS OF LIVER, HEART VALVE SURGERY 08/2021 Surgeries: Yes Bladder Surgery, Breast, Cardiac, Defibrillator, Gallbladder, Hysterectomy, Oophorectomy, Pacemaker Respiratory: Yes Sleep Apnea Currently Using CPAP: Yes (at night) Currently Using BIPAP: No Cardiac: Yes Atrial Fibrillation, Cardiomyopathy, Coronary Artery Disease, Hypertension, Irregular Heartbeat, Valvular Heart Disease Neurological: No Reproductive Disorders: No (X1 MISCARRIAGE) HOME [employer] WORKER History: 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 ZARATE) UTI-Chronic Gastrointestinal: Yes Gastroesophageal Reflux, Liver Disease/Jaundice, Diverticulosis, Polyps, C-Diff Musculoskeletal: Yes Chronic Back Pain Endocrine: No HEENT: Yes (left eye problem with vision) Loss of Vision: Bilateral Hearing Impairment: Denies Cancer: No Psychosocial: Yes Anxiety, Depression Integumentary: No Blood Disorders: No Adverse Reaction/Blood Tranf: No (HAS HAD BLOOD WITH NO REACTIION) Family Medical History Heart Disease, CAD Under 55 Years Old, Hypertension Physical Exam Vital Signs Vital Signs - First Documented 11/14/21 15:15 Temp 37.2 Pulse 82 Resp 18 B/P (MAP) 138/71 (93) Pulse Ox 97 Capillary Refill : Height/Weight/BMI Height: 4'11.00" Weight: 130lbs. 14.4oz. 58.567285ir; 25.33 BMI Method:Stated General Appearance: WD/WN, no apparent distress, other (very anxious) Neck: non-tender, full range of motion Respiratory: no respiratory distress, no accessory muscle use Cardiovascular: regular rate, rhythm, no murmur Gastrointestinal: normal bowel sounds, non tender, soft Extremities: normal range of motion, non-tender Neurologic/Psychiatric: alert, normal mood/affect, oriented x 3 Skin: normal color, warm/dry Procedures/Interventions Date of ETT Placement: Jan 07, 2018 Progress/Results/Core Measures Results/Orders Lab Results Laboratory Tests Test 11/14/21 15:20 11/14/21 15:46 Range/Units Urine Color YELLOW Urine Clarity CLEAR Urine pH 6.0 5-9 Urine Specific Presto 1.020 1.016-1.022 Urine Protein 1+ H NEGATIVE Urine Glucose (UA) NEGATIVE NEGATIVE Urine Ketones NEGATIVE NEGATIVE Urine Nitrite NEGATIVE NEGATIVE Urine Bilirubin NEGATIVE NEGATIVE Urine Urobilinogen 0.2 < = 1.0 MG/DL Urine Leukocyte Esterase 2+ H NEGATIVE Urine RBC (Auto) TRACE-I H NEGATIVE Urine RBC 2-5 H /HPF Urine WBC 5-10 H /HPF Urine Squamous Epithelial Cells RARE /HPF Urine Crystals NONE /LPF Urine Bacteria FEW H /HPF Urine Casts PRESENT /LPF Urine Hyaline Casts 0-2 H /LPF Urine Mucus NEGATIVE /LPF Urine Culture Indicated YES White Blood Count 9.7 4.3-11.0 10^3/uL Red Blood Count 3.50 L 3.80-5.11 10^6/uL Hemoglobin 9.1 L 11.5-16.0 g/dL Hematocrit 30 L 35-52 % Mean Corpuscular Volume 85 80-99 fL Mean Corpuscular Hemoglobin 26 25-34 pg Mean Corpuscular Hemoglobin Concent 31 L 32-36 g/dL Red Cell Distribution Width 16.7 H 10.0-14.5 % Platelet Count 301 130-400 10^3/uL Mean Platelet Volume 9.2 9.0-12.2 fL Immature Granulocyte % (Auto) 0 % Neutrophils (%) (Auto) 77 H 42-75 % Lymphocytes (%) (Auto) 16 12-44 % Monocytes (%) (Auto) 5 0-12 % Eosinophils (%) (Auto) 1 0-10 % Basophils (%) (Auto) 0 0-10 % Neutrophils # (Auto) 7.5 1.8-7.8 X 10^3 Lymphocytes # (Auto) 1.6 1.0-4.0 X 10^3 Monocytes # (Auto) 0.5 0.0-1.0 X 10^3 Eosinophils # (Auto) 0.1 0.0-0.3 10^3/uL Basophils # (Auto) 0.0 0.0-0.1 10^3/uL Immature Granulocyte # (Auto) 0.0 0.0-0.1 10^3/uL Prothrombin Time 31.2 H 12.2-14.7 SEC INR Comment 3.0 H 0.8-1.4 Sodium Level 138 135-145 MMOL/L Potassium Level 3.0 L 3.6-5.0 MMOL/L Chloride Level 100 98-107 MMOL/L Carbon Dioxide Level 24 21-32 MMOL/L Anion Gap 14 5-14 MMOL/L Blood Urea Nitrogen 28 H 7-18 MG/DL Creatinine 2.14 H 0.60-1.30 MG/DL Estimat Glomerular Filtration Rate 24 BUN/Creatinine Ratio 13 Glucose Level 129 H 70-105 MG/DL Calcium Level 8.7 8.5-10.1 MG/DL Corrected Calcium 8.5 8.5-10.1 MG/DL Total Bilirubin 0.9 0.1-1.0 MG/DL Aspartate Amino Transf (AST/SGOT) 19 5-34 U/L Alanine Aminotransferase (ALT/SGPT) 13 0-55 U/L Alkaline Phosphatase 124 40-136 U/L B-Type Natriuretic Peptide 508.0 H <100.0 PG/ML Total Protein 7.4 6.4-8.2 GM/DL Albumin 4.2 3.2-4.5 GM/DL Lipase 42 8-78 U/L My Orders Orders - ZIYAD BUNN STEREOTYPE FINISHER Cbc With Automated Diff (11/14/21 15:21) Comprehensive Metabolic Panel (11/14/21 15:21) Lipase (11/14/21 15:21) Ua Culture If Indicated (11/14/21 15:21) Bnp [place] (11/14/21 15:21) Ed Iv/Invasive Line Start (11/14/21 15:21) Chest 1 View, Ap/Pa Only (11/14/21 15:21) Ct Abdomen/Pelvis Wo (11/14/21 15:21) Ondansetron Injection (Zofran Injectio (11/14/21 15:30) Lorazepam Injection (Ativan Injection) (11/14/21 15:30) Ekg Tracing (11/14/21 15:22) Urine Culture (11/14/21 15:20) Protime With Inr (11/14/21 16:16) Potassium Chloride (Tablet) (K Dur Table (11/14/21 16:30) Furosemide Injection (Lasix Injection) (11/14/21 16:30) Medications Given in ED Current Medications Medications Dose Ordered Sig/Allie Route Start Time Stop Time Status Last Admin Dose Admin Furosemide 40 mg ONCE ONCE IVP 11/14/21 16:30 11/14/21 16:31 DC 11/14/21 16:28 40 MG Lorazepam 1 mg ONCE ONCE IVP 11/14/21 15:30 11/14/21 15:31 DC 11/14/21 15:34 1 MG Ondansetron HCl 8 mg ONCE ONCE IVP 11/14/21 15:30 11/14/21 15:31 DC 11/14/21 15:34 8 MG Potassium Chloride 40 meq ONCE ONCE PO 11/14/21 16:30 11/14/21 16:31 DC 11/14/21 16:27 40 MEQ Vital Signs/I&O 11/14/21 11/14/21 15:15 17:08 Temp 37.2 Pulse 82 78 Resp 18 18 B/P (MAP) 138/71 (93) 116/83 Pulse Ox 97 97 Departure Communication (Admissions) 3080-Spoke with Dr. Sprague, feels like she is getting a little too dry given the rising creatinine. He would like to change the Lasix from 80 mg daily to 80 mg every other day on Sunday and 40 mg on Tuesdays and . She can call his office for follow-up. Her RR is normal currently, sats 99% room air. She speaks in full sentences. Destini and jose has worked very well for her, she states "whatever you gave me was magic". Will give her RX for this at home PRN NAME: ISAC BIRD MED REC#: [id number] PT STATUS: REG ER : 1950 PHYSICIAN: ZIYAD BUNN STEREOTYPE FINISHER ADMIT DATE: 11/14/21/ER Draft Date of Exam:11/14/21 CHEST 1 VIEW, AP/PA ONLY INDICATION: Shortness of breath Frontal chest obtained at 3:52 p.m. and compared to 10/11/2021. There is cardiomegaly. There is central vascular congestion with interstitial edema and patchy airspace disease in the right base. The right basilar infiltrate appears worsened compared to the prior study, as has the central vascular congestion. There is no pneumothorax or gross pleural fluid. Pacemaker device is unchanged. IMPRESSION: Cardiomegaly. Worsening central vascular congestion compared to the prior study with some interstitial edema and worsening airspace disease in the right lung base. There is no significant pleural fluid. Dictated on workstation # [id number] Dict: 11/14/21 1604 Trans: 11/14/21 1609 CVB [id number] Interpreted by: JAYLIN CRUMP MD Electronically signed by: NAME: ISAC BIRD [facility] REC#: [id number] PT STATUS: REG ER : 1950 PHYSICIAN: ZIYAD BUNN STEREOTYPE FINISHER ADMIT DATE: 11/14/21/ER Draft Date of Exam:11/14/21 CT ABDOMEN/PELVIS WO PROCEDURE: CT abdomen and pelvis without contrast. TECHNIQUE: Multiple contiguous axial images were obtained through the abdomen and pelvis without the use of intravenous contrast. Auto Exposure Controls were utilized during the CT exam to meet ALARA standards for radiation dose reduction. INDICATION: Swelling. COMPARISON: Exam compared with study of 10/10/2021. FINDINGS: There has been resolution of the previous features of acute sigmoid diverticulitis. No abscess, obstruction, or perforation. Fluid collection in the right groin adjacent to vascular clips is unchanged, presumed seroma. A right pleural effusion, nonloculated, showed no change in volume or distribution. Tiny pericardial effusion, unchanged. Gallbladder is surgically absent. The liver, spleen, adrenals, and pancreas are all nonfocal and nonacute. There is no hydroureteronephrosis. There is no ascites. There has been no adverse development from prior. There is no free air. IMPRESSION: 1. Resolution of previous sigmoid diverticulitis without abscess, obstruction, perforation or new acute inflammatory process. 2. Unchanged right pleural effusion and right groin perivascular fluid collection. Dictated on workstation # [id number] Dict: 11/14/21 1600 Trans: 11/14/21 1608 [id number] [id number] Interpreted by: NADYA COLEMAN Electronically signed by: Impression Primary Impression: Anxiety Additional Impression: CHF (congestive heart failure) Disposition: 01 HOME, SELF-CARE Condition: Improved Departure-Patient Inst. Decision time for Depature: 16:50 Referrals: FARHAT SERNA DO (PCP/Family) Primary Care Physician Patient Instructions: Heart Failure ED Add. Discharge Instructions: . Lets change your Lasix to 80 mg Sunday and 40 mg Sunday. This was at the advice of Dr. Sprague. Scripts Ondansetron (Ondansetron Odt) 8 Mg Tab.rapdis 8 MG PO Q6H PRN for NAUSEA/VOMITING, #10 TAB Prov: ZIYAD BUNN APRN 11/14/21 ZIYAD BUNN APRN November 14, 2021 15:24
[2021-11-14] MEDS ORDERED: ONDANSETRON 4 MG/2 ML (SDV) Z0FRAN IVP ONE (15:30)
[2021-11-14] MEDS ORDERED: LORazepam INJ 2 MG/ML (ATIVAN) VIAL IVP ONE (15:30)
[2021-11-14 15:40] LABS: BILIRUBIN,URINE NEGATIVE (NEGATIVE); CLARITY,URINE CLEAR; COLOR,URINE YELLOW; GLUCOSE, URINE (UA) NEGATIVE (NEGATIVE); KETONES,URINE NEGATIVE (NEGATIVE); LEUKOCYTE ESTERASE ,URINE 2+ (NEGATIVE); NITRITE,URINE NEGATIVE (NEGATIVE); PROTEIN,URINE 1+ (NEGATIVE)
[2021-11-14 15:47] LABS: BACTERIA,URINE FEW /HPF; HYALINE CASTS, URINE 0-2 /LPF
[2021-11-14 15:48] LABS: SQUAMOUS EPITHELIAL CELL,UR RARE /HPF
[2021-11-14 15:55] LABS: BASOPHILS % (AUTO) 0 % (0-10); EOSINOPHILS # (AUTO) 0.1 10^3/uL (0.0-0.3); EOSINOPHILS % (AUTO) 1 % (0-10); HEMATOCRIT 30 % (35-52); HEMOGLOBIN 9.1 g/dL (11.5-16.0); LYMPHOCYTES # (AUTO) 1.6 X 10^3 (1.0-4.0); LYMPHOCYTES % (AUTO) 16 % (12-44); MEAN CORPUSCULAR HEMOGLOBIN 26 pg (25-34); MEAN CORPUSCULAR HGB CONC 31 g/dL (32-36); MEAN CORPUSCULAR VOLUME 85 fL (80-99); MEAN PLATELET VOLUME 9.2 fL (9.0-12.2); MONOCYTES # (AUTO) 0.5 X 10^3 (0.0-1.0); MONOCYTES % (AUTO) 5 % (0-12); NEUTROPHILS # (AUTO) 7.5 X 10^3 (1.8-7.8); NEUTROPHILS % (AUTO) 77 % (42-75); PLATELET COUNT 301 10^3/uL (130-400); WHITE BLOOD COUNT 9.7 10^3/uL (4.3-11.0)
--- NOTE | 2021-11-14 16:08 | Diagnostic Imaging Report ---
PROCEDURE: CT abdomen and pelvis without contrast. TECHNIQUE: Multiple contiguous axial images were obtained through the abdomen and pelvis without the use of intravenous contrast. Auto Exposure Controls were utilized during the CT exam to meet ALARA standards for radiation dose reduction. INDICATION: Swelling. COMPARISON: Exam compared with study of 10/10/2021. FINDINGS: There has been resolution of the previous features of acute sigmoid diverticulitis. No abscess, obstruction, or perforation. Fluid collection in the right groin adjacent to vascular clips is unchanged, presumed seroma. A right pleural effusion, nonloculated, showed no change in volume or distribution. Tiny pericardial effusion, unchanged. Gallbladder is surgically absent. The liver, spleen, adrenals, and pancreas are all nonfocal and nonacute. There is no hydroureteronephrosis. There is no ascites. There has been no adverse development from prior. There is no free air. IMPRESSION: 1. Resolution of previous sigmoid diverticulitis without abscess, obstruction, perforation or new acute inflammatory process. 2. Unchanged right pleural effusion and right groin perivascular fluid collection. Dictated by: Dictated on workstation # [id number]
--- NOTE | 2021-11-14 16:09 | Diagnostic Imaging Report ---
INDICATION: Shortness of breath Frontal chest obtained at 3:52 p.m. and compared to 10/11/2021. There is cardiomegaly. There is central vascular congestion with interstitial edema and patchy airspace disease in the right base. The right basilar infiltrate appears worsened compared to the prior study, as has the central vascular congestion. There is no pneumothorax or gross pleural fluid. Pacemaker device is unchanged. IMPRESSION: Cardiomegaly. Worsening central vascular congestion compared to the prior study with some interstitial edema and worsening airspace disease in the right lung base. There is no significant pleural fluid. Dictated by: Dictated on workstation # [id number]
[2021-11-14 16:15] LABS: ALBUMIN 4.2 GM/DL (3.2-4.5)
[2021-11-14 16:17] LABS: CALCIUM 8.7 MG/DL (8.5-10.1)
[2021-11-14 16:18] LABS: TOTAL PROTEIN 7.4 GM/DL (6.4-8.2)
[2021-11-14 16:19] LABS: BILIRUBIN,TOTAL 0.9 MG/DL (0.1-1.0)
[2021-11-14 16:21] LABS: CREATININE SERUM 2.14 MG/DL (0.60-1.30)
[2021-11-14] MEDS ORDERED: FUROSEMIDE 40 MG/4 ML INJ (LASIX) IVP ONE (16:30)
[2021-11-14] MEDS ORDERED: KCL 20 MEQ TAB (K-DUR) PO ONE (16:30)
[2021-11-14 16:33] LABS: PROTHROMBIN TIME PATIENT 31.2 SEC (12.2-14.7)
[2021-11-14] MEDS ORDERED: ONDA8TAB13 PO (16:55)
[2021-11-14] MEDS ORDERED: LORA-405 PO (16:55)
[2021-11-14 17:08] VITALS: BP 116/83
== END 2021-11-14 17:18 | disposition home or self-care (01) ==
LOC: EDUNIT# 15:08 → ER 15:09
DX: I11.0 Hypertensive heart disease with heart failure (principal); I50.9 Heart failure, unspecified; F41.9 Anxiety disorder, unspecified; R94.4 Abnormal results of kidney function studies; G47.30 Sleep apnea, unspecified; Z99.89 Dependence on other enabling machines and devices; Z95.810 Presence of automatic (implantable) cardiac defibrillator
CPT/HCPCS: 36415; 71045; 74176; 80053; 81000; 83690; 83880; 85025; 85610; 87088; 93005

== ENCOUNTER 2021-12-02 10:09 | Outpatient (RCR) | payer MEDICARE, OTHER ==
[~2021-12-02 10:09] MED LIST changes: +LORA-405 PO; +ONDA8TAB13 PO
== END 2021-12-06 | disposition home or self-care (01) ==
LOC: CR 10:09
PROVIDERS: ATTEND Family Medicine
DX: Z29.8 Encounter for other specified prophylactic measures (principal); R53.1 Weakness; Z95.2 Presence of prosthetic heart valve; Z95.4 Presence of other heart-valve replacement
CPT/HCPCS: 93798

== ENCOUNTER 2022-01-04 14:50 | Outpatient (RCR) | payer MEDICARE, OTHER ==
[~2022-01-04 14:50] MED LIST changes: -CRAN500T3 PO; +CRAN500T4 PO
== END 2022-01-05 | disposition home or self-care (01) ==
LOC: CR 14:50
PROVIDERS: ATTEND Family Medicine
DX: Z29.8 Encounter for other specified prophylactic measures (principal); R53.1 Weakness; Z95.2 Presence of prosthetic heart valve; Z95.4 Presence of other heart-valve replacement
CPT/HCPCS: 93798

== ENCOUNTER 2022-02-03 10:28 | Outpatient (RCR) | payer MEDICARE, OTHER | END 2022-02-05 | disposition home or self-care (01) | LOC: CR 10:28 | PROVIDERS: ATTEND Family Medicine | DX: Z29.8 Encounter for other specified prophylactic measures (principal); R53.1 Weakness; Z95.2 Presence of prosthetic heart valve; Z95.4 Presence of other heart-valve replacement | CPT/HCPCS: 93798 ==

== ENCOUNTER 2022-03-06 15:22 | Outpatient (RCR) | payer MEDICARE, OTHER ==
[~2022-03-06 15:22] MED LIST changes: +POTA-177 PO; -POTA10TA37 PO
== END 2022-03-08 | disposition home or self-care (01) ==
LOC: CR 15:22
PROVIDERS: ATTEND Family Medicine
DX: Z29.8 Encounter for other specified prophylactic measures (principal); R53.1 Weakness; Z95.2 Presence of prosthetic heart valve; Z95.4 Presence of other heart-valve replacement
CPT/HCPCS: 93798

== ENCOUNTER → 2022-04-05 | Outpatient (CLI) | payer MEDICARE, OTHER ==
--- NOTE | 2022-04-05 08:59 | Diagnostic Imaging Report ---
PROCEDURE: CT abdomen and pelvis without contrast. TECHNIQUE: Multiple contiguous axial images were obtained through the abdomen and pelvis without the use of intravenous contrast. Auto Exposure Controls were utilized during the CT exam to meet ALARA standards for radiation dose reduction. INDICATION: Lower abdominal pain The lung bases are clear. Liver appears normal. Gallbladder surgically absent. Pancreas appears normal. Spleen is not enlarged. Adrenals are normal. Kidneys appear normal. Small bowel is not dilated. There is diverticulosis of the colon but no evidence of diverticulitis. Appendix is unremarkable. Urinary bladder is normal. Uterus is surgically absent. There is no intraperitoneal free air or free fluid. IMPRESSION: Uncomplicated diverticulosis of the colon. There is a seroma in the right inguinal region with surrounding surgical tessa. This fluid collection measures 2.5 cm in diameter. Dictated by: Dictated on workstation # [id number]
== END ==
LOC: RAD 08:18
PROVIDERS: ATTEND Nurse Practitioner Family
DX: K57.30 Diverticulosis of large intestine without perforation or abscess without bleeding (principal); L76.34 Postprocedural seroma of skin and subcutaneous tissue following other procedure; Z90.710 Acquired absence of both cervix and uterus
CPT/HCPCS: 74176

== ENCOUNTER → 2022-05-02 | Outpatient (CLI) | payer MEDICARE, OTHER ==
--- NOTE | 2022-05-02 16:07 | Diagnostic Imaging Report ---
Indication: Routine screening. Comparison is made with prior mammograms from 04/27/2021 and 04/26/2020. 2-D and 3-D bilateral screening mammography was performed with CAD. Scattered fibroglandular densities are identified bilaterally. There has been some overall increase in breast parenchymal density on the right, particularly in the outer portion of but no discrete mass is identified. There is some lucency within the areas of density which could potentially represent fat necrosis. Additional views are recommended. Left breast is unremarkable. There are benign calcifications. Pacemaker battery pack overlies the left axilla. IMPRESSION: BI-RADS 0 Development of increased density in the outer portion of the right breast. Further evaluation with additional views and ultrasound is recommended. ACR BI-RADS Category 0: Incomplete. (Needs additional imaging evaluation). Result letter will be mailed to the patient. Note: At least 10% of breast cancer is not imaged by mammography. Dictated by: Dictated on workstation # [id number]
== END ==
LOC: RAD 12:48
PROVIDERS: ATTEND Family Medicine
DX: Z12.31 Encounter for screening mammogram for malignant neoplasm of breast (principal)
CPT/HCPCS: 77063; 77067

== ENCOUNTER → 2022-05-04 | Outpatient (CLI) | payer MEDICARE ==
--- NOTE | 2022-05-04 16:50 | Diagnostic Imaging Report ---
INDICATION: Abnormal mammogram with right breast density. Correlation is made with diagnostic mammogram earlier the same day and screening mammogram from 05/02/2022. Sonographic interrogation of the outer right breast was performed. There was area of parenchymal heterogeneity in the outer right breast extending from 7-9 o'clock. This corresponds to the density noted mammographically. Patient does report having prior surgery at this location. No discrete mass is seen. No fluid collection is identified. IMPRESSION: Tissue heterogeneity accounting for the area of increased density noted mammographically in the outer right breast. This could be postsurgical in nature as patient did report surgery approximately 8 months ago. Even so, followup right mammogram and right breast ultrasound in 6 months is recommended to show continued stability. ACR BI-RADS Category 3: Probably benign findings. Result letter will be mailed to the patient. Note: At least 10% of breast cancer is not imaged by mammography. BI-RADS Category 3 Dictated by: Dictated on workstation # [id number]
--- NOTE | 2022-05-05 13:07 | Diagnostic Imaging Report ---
Indication: Right breast density. Patient presents for additional views. Correlation is made with prior screening mammogram from 05/02/2022 04/27/2021. Spot compression CC and ML views as well as conventional 90 degrees lateral views was performed. Additional views show some persistent density in the lateral right breast. No discrete mass is identified. There are benign consultations present. Right axilla is unremarkable. IMPRESSION: Persistent density in the outer right breast. Further evaluation with ultrasound is recommended and will be performed today. BI-RADS Category 0 ACR BI-RADS Category 0: Incomplete. (Needs additional imaging evaluation). Result letter will be mailed to the patient. Note: At least 10% of breast cancer is not imaged by mammography. Dictated by: Dictated on workstation # [id number]
== END ==
LOC: RAD 13:28
PROVIDERS: ATTEND Nurse Practitioner Family
DX: R92.8 Other abnormal and inconclusive findings on diagnostic imaging of breast (principal); N64.89 Other specified disorders of breast
CPT/HCPCS: 76642; 77065; G0279

== ENCOUNTER → 2022-09-26 | Outpatient (CLI) | payer MEDICARE, OTHER ==
[~2022-09-26] MED LIST changes: -POTA10CA43 PO; +POTA10CA44 PO
--- NOTE | 2022-09-26 11:43 | Diagnostic Imaging Report ---
EXAMINATION: Chest 2 view HISTORY: COLOVAGINAL FISTULA COMPARISON: 12/10/2016 FINDINGS: Heart size and pulmonary vasculature are normal. A left-sided cardiac device is unchanged. The lungs are clear without consolidation, pleural effusion, or pneumothorax. Degenerative changes of the thoracic spine. Osseous structures are otherwise intact. IMPRESSION: 1. No acute radiographic abnormality in the chest. Dictated by: Dictated on workstation # [id number]
== END ==
LOC: CATH 09:31
DX: N82.4 Other female intestinal-genital tract fistulae (principal)
CPT/HCPCS: 71046; 93005

== ENCOUNTER → 2023-03-20 | Outpatient (CLI) | payer MEDICARE, OTHER ==
[~2023-03-20] MED LIST changes: +POTA-330 PO; -POTA-51 PO; -POTA10CA44 PO; +POTA10CA84 PO; -ROPI1TAB PO; +ROPI1TAB46 PO
[2023-03-20 09:00] LABS: BASOPHILS # (AUTO) 0.1 10^3/uL (0.0-0.1); BASOPHILS % (AUTO) 1 % (0-10); EOSINOPHILS # (AUTO) 0.5 10^3/uL (0.0-0.3); EOSINOPHILS % (AUTO) 5 % (0-10); HEMATOCRIT 35 % (35-52); LYMPHOCYTES # (AUTO) 1.4 10^3/uL (1.0-4.0); LYMPHOCYTES % (AUTO) 15 % (12-44); MEAN CORPUSCULAR HEMOGLOBIN 28 pg (25-34); MEAN CORPUSCULAR HGB CONC 31 g/dL (32-36); MEAN CORPUSCULAR VOLUME 90 fL (80-99); MONOCYTES # (AUTO) 0.4 10^3/uL (0.0-1.0); MONOCYTES % (AUTO) 4 % (0-12); NEUTROPHILS % (AUTO) 75 % (42-75); PLATELET COUNT 204 10^3/uL (130-400); WHITE BLOOD COUNT 9.3 10^3/uL (4.3-11.0)
[2023-03-20 09:05] LABS: INR 2.3 (0.8-1.4); PROTHROMBIN TIME PATIENT 25.2 SEC (12.2-14.7)
[2023-03-20 09:19] LABS: ALBUMIN 4.4 GM/DL (3.2-4.5); BILIRUBIN,TOTAL 0.9 MG/DL (0.1-1.0); CALCIUM 8.9 MG/DL (8.5-10.1); CREATININE SERUM 2.24 MG/DL (0.60-1.30); POTASSIUM 3.9 MMOL/L (3.6-5.0); TOTAL PROTEIN 7.4 GM/DL (6.4-8.2)
--- NOTE | 2023-03-20 12:27 | Diagnostic Imaging Report ---
PROCEDURE: US Hepatic (Liver). INDICATION: K74.60 -cirrhosis TECHNIQUE: Multiple grayscale sonographic images were obtained of the right upper quadrant of the abdomen. CORRELATION STUDY: 03/17/2019 FINDINGS: LIVER: Liver size normal, 17 cm. There is a heterogeneous nodular echotexture without discrete mass. The main portal vein is patent and with normal direction of flow. GALLBLADDER: Cholecystectomy. COMMON BILE DUCT: Nondilated at 0.6 cm. PANCREAS: Visualized portions appearing unremarkable. AORTA/IVC: Not well visualized. RIGHT KIDNEY: 9.7 x 4.2 x 4.4 cm. No hydronephrosis. OTHER: No right upper quadrant ascites. IMPRESSION: 1. Normal-sized liver without suggestion for mass. 2. Cholecystectomy. No bile duct dilatation. Dictated by: Dictated on workstation # [id number]
== END ==
LOC: RAD 08:27
PROVIDERS: ATTEND Internal Medicine
DX: K74.60 Unspecified cirrhosis of liver (principal); Z90.49 Acquired absence of other specified parts of digestive tract
CPT/HCPCS: 36415; 76705; 80053; 82105; 85025; 85610